=== PATIENT | female | born 1975 | race Caucasian/White ===

== ENCOUNTER 2018-01-09 08:37 | Emergency (ER) | payer MEDICARE, MEDICAID, SELFPAY ==
[2018-01-09 08:38] VITALS: BP 168/117; PULSE 84; RESP 18; TEMP 36.3; O2SAT 98; BMI 45.1
[2018-01-09] MEDS: morphine 8 MG/ML Syringe SC (09:03)
[2018-01-09] MEDS: diazePAM 5 MG Tablet PO (09:03)
--- NOTE | 2018-01-09 09:10 | RAD_ITS ---
STUDY: X-RAY - LUMBAR SPINE REASON FOR EXAM: Female, 42 years old. Back pain TECHNIQUE: 3 view(s) of the lumbar spine were obtained. COMPARISON: None FINDINGS: Normal lumbar lordosis. There is no substantial scoliosis. There is anterolisthesis at the level of L5-S1. There is severe disc space narrowing. There are bilateral pedicle screws and laminectomy at the level of L4-S1. There is a disc spacer present at L5-S1. There is visualized to space narrowing. There is multilevel endplate spondylosis of the lumbar vertebrae. There is multi-level degenerative disc disease with multi-level disc space narrowing. There is atherosclerotic disease of the aorta. There are surgical clips in the right upper quadrant status post cholecystectomy. RAD/Lumbar Spine 2 or 3 Views IMPRESSION: Post spinal fusion L4 through the sacrum with laminectomy. Age indeterminate likely chronic disc space narrowing L5-S1 with anterolisthesis. Comparison to prior study from the helpful to establish stability. Electronically Signed: Uyen Tellez MD at 9:29 EDT Tel , Service support ,
--- NOTE | 2018-01-09 09:20 | ED.VISSUMM ---
- ER Visit Summary Date of Service: 01/09/18 Chief Complaint: [Back pain] History of Present Illness: The patient is a 42 F [42-year-old female who presents the emergency department with low back pain for the last month. It has been getting worse slowly. She has radiculopathy down her right leg. She gets occasional numbness down her right leg as well typically on the lateral side of her leg and the lateral foot. No urinary symptoms no bowel symptoms no saddle anesthesia or rectal numbness no fecal incontinence. No fevers or chills. She is a type I diabetic. No recent interventions. She does have history of spinal surgery and has hardware in place. She had a revision of that surgery 5 years ago in which the hardware was displaced. She has an appointment with her neurosurgeon on January 25. Today the pain was very uncomfortable she cannot stand up straight and she is looking for pain control.] Physical Examination: [] Blood pressure 168/117 other vitals within acceptable limits Obese WN WD NAD PERRL EOMI MMM NECK supple and nontender, no masses RRR no murmur rub or gallop, no peripheral edema, symmetric radial pulses CTAB no respiratory distress ABDOMEN is soft and nontender, normal bowel sounds, no distension, no rebound or guarding Tenderness to palpation across the lumbar spine. She does have decreased sensation in the S1 distribution ankle reflexes are intact she has 5 out of 5 EHL dorsiflexion plantar flexion knee extension hip flexion 2+ symmetric strong dorsalis pedis pulses there is no skin changes distally and she has brisk distal cap refill SKIN is warm and dry no rashes Alert and Oriented x3, CN II-XII in tact, no motor or sensory deficits, gait normal No lymphadenopathy Test Results: [] Emergency Department Course and Treatment: [Patient was given morphine and Valium. X-rays show appropriate position of the hardware with L5-S1 disc space diminishment. I think this is likely the source of her radiculopathy. She will be given a prescription for Medrol. She is a type I diabetic. She gets frequent steroid prescriptions because of her COPD. She has insulin and a sliding scale. She understands that she needs to monitor her blood sugars closely and make adjustments as necessary. She will be given Flexeril in a very short course of Percocet. OA RRS report was reviewed and shows no narcotic prescriptions within the last year however she is prescribed chronic benzodiazepines. She was precautioned about the additive effects of benzos with narcotics and she she feels comfortable with this. She understands that she is at risk for hypoventilation giving her weight and dual benzo diazepam and opiates. She is comfortable with this. She states that her daughter and her son live with her and stay with her 24 hours a day.] Treatment Plan: [] Disposition: [Discharge] Impression: [Back pain with radiculopathy] This note was generated with [employer] dictation software. It may contain incorrect words, spelling, and punctuation that were not noted in review of the chart prior to signing ED Disposition - Plan for ED Patient: Chief Complaint: Back Referrals: Carlotta Galindo MD [Primary Care Provider] -
--- NOTE | 2018-01-09 09:39 | ED.RN ---
PT STATES THAT BACK IS HURTING WORSE. DR BECKER AWARE THAT PT WANTS MORE MEDS. NO ORDERS AT THIS TIME
[2018-01-09] MEDS: HYDROmorphone 1 MG/ML Syringe SC (09:55)
--- NOTE | 2018-01-09 10:25 | ED.DEP ---
ED Disposition - Plan for ED Patient: Chief Complaint: Back Instructions: ED Sciatica, ED Neck Back Pain General Prescriptions: Hydrocodone Bitart/Apap 5-325 [[place] 5MG-325MG] 1 tablet PO Q6H PRN PRN 3 Days #10 tablet PRN Reason: Pain Cyclobenzaprine [Flexeril] 10 mg PO TID PRN PRN #14 tablet PRN Reason: Muscle Spasm MethylPREDNISolone DosePak [Medrol DosePak] 4 mg PO UD #1 box Referrals: Edward Bajwa [Other] - 5-7 Days
--- NOTE | 2018-01-09 10:28 | DCINST.ED_ITS ---
ED Disposition - Plan for ED Patient: Chief Complaint: Back Instructions: ED Sciatica, ED Neck Back Pain General Prescriptions: Hydrocodone Bitart/Apap 5-325 [[place] 5MG-325MG] 1 tablet PO Q6H PRN PRN 3 Days # 10 tablet PRN Reason: Pain Cyclobenzaprine [Flexeril] 10 mg PO TID PRN PRN #14 tablet PRN Reason: Muscle Spasm MethylPREDNISolone DosePak [Medrol DosePak] 4 mg PO UD #1 box Referrals: Edward Bajwa [Other] - 5-7 Days
[2018-01-09 10:42] VITALS: BP 152/101; PULSE 96; RESP 15; O2SAT 99
== END 2018-01-09 10:43 | disposition home or self-care (01) ==
LOC: ED 09:31
PROVIDERS: Emergency Provider Emergency Medicine; Family Provider Internal Medicine; PCP Internal Medicine
DX: M54.16 Radiculopathy, lumbar region (principal); G89.29 Other chronic pain; J44.9 Chronic obstructive pulmonary disease, unspecified; E10.9 Type 1 diabetes mellitus without complications; E66.9 Obesity, unspecified; Z68.42 Body mass index [BMI] 45.0-49.9, adult; Z79.4 Long term (current) use of insulin; Z72.0 Tobacco use
CPT/HCPCS: 72100; 96372; 99282

== ENCOUNTER 2018-03-07 21:00 | Emergency (ER) | payer MEDICARE, SELFPAY ==
[2018-03-07 21:01] VITALS: BP 137/99; PULSE 107; RESP 15; TEMP 37.2; BMI 47.0
[2018-03-07] MEDS: Morphine 4 MG/ML Syringe IV (22:19)
[2018-03-07] MEDS: 0.9% Normal Saline 1,000 ML 1000 ML IV (22:19)
[2018-03-07] MEDS: Ondansetron 4 MG/2 ML Vial IV (22:19)
[2018-03-07 22:46] LABS: Absolute Lymphocyte Count 3.17 X10^3/ul (0.83-4.51); Absolute Neutrophil Count 9.7 X10^3/uL (2.0-7.7); Basophil# 0.03 X10^3/uL; Basophil% 0.2 % (0-1); Eosinophil# 0.16 X10^3/uL; Eosinophils% 1.1 % (0-5); Hematocrit 42.1 % (37-47); Hemoglobin 14.4 g/dl (12.0-15.0); Lymphocyte # 3.17 X10^3/ul (4.0); Lymphocyte % 21.9 % (19-41); Mean Corp Hgb Conc 34.2 g/gl (32-36); Mean Corpuscular Hgb 33.2 pg (27.0-32.0); Mean Platelet Vol. 10.7 fl (6.2-12.0); Monocyte# 1.37 X10^3/uL; Monocyte% 9.5 % (0-10); Neutrophil % 66.9 % (47-70); Platelet Count 282 K/mm3 (150-450); RBC Distribution Width CV 12.5 % (11.6-14.6); RBC Distribution Width SD 43.6 fl (35.1-43.9); Red Blood Count 4.34 M/mm3 (4.2-5.4); White Blood Count 14.5 K/mm3 (4.4-11.0)
[2018-03-07 22:47] LABS: POSITIVE COUNT NO; POSITIVE DIFFERENTIAL NO; POSITIVE MORPHOLOGY NO
[2018-03-07 23:06] LABS: Anion Gap 11 (5-15); BUN 13 mg/dL (7-18); Calcium,Total 8.6 mg/dL (8.5-10.1); Chloride 104 mmol/L (98-107); Creatinine, Serum 0.81 mg/dL (0.55-1.02); EST Glomerular Filtration Rate 81 mL/min (>60); Est Glom Filt Rate - Afr Amer 98 mL/min (>60); Estimated Creatinine Clearance 82.97 ml/min; Glucose 376 mg/dL (74-106); Potassium 3.9 mmol/L (3.5-5.1); Sodium Level 137 mmol/L (136-145)
--- NOTE | 2018-03-07 23:13 | ED.VISSUMM ---
- ER Visit Summary Date of Service: 03/07/18 Chief Complaint: Redness right arm History of Present Illness: The patient is a [address] Galindo. She reports that she has redness to her right forearm that began 4 days ago. She denies any known trauma. She describes a sharp pain that is 8 out of 10 at worst and 7-10 currently. Is worsened by movement relieved by rest. She denies any constitutional symptoms. No fever, chills, nausea, or vomiting. Physical Examination: Vitals: Stable. Afebrile. General: Well-nourished and well-developed. Head: Normocephalic atraumatic. Neck: Supple, no lymphadenopathy. No JVD. Nontender. Cardiovascular: Regular rate and rhythm. No murmurs. Respiratory: No respiratory distress. Clear to auscultation bilaterally. Abdominal: Soft, nontender, nondistended, normal bowel sounds. No guarding, rebound, or peritoneal signs. Back: Nontender. Extremities: Approximately 5 x 7 area of erythema to the posterior right arm. There is no induration or fluctuance. There is no lymphangitic spread.. Skin: Normal color, no rash. Neurologic: Alert and oriented ?3. Cranial nerves II through XII are intact. Normal strength and sensation. Psych: Normal affect. Test Results: CBC is more for white count of 14.5. Chem-7 is more for glucose of 376. Emergency Department Course and Treatment: Patient was treated with a dose of morphine, Zofran, clindamycin IV. She was given Tylenol p.o. I discussed her elevated blood sugar and she does not want to take insulin here. She reports that she will take her sliding scale insulin when she gets home. Treatment Plan: Discussed the patient that if he does not control her blood sugar the cellulitis is going to be treated. She is will be discharged on clindamycin instructed follow-up her primary care physician in 2 days for a repeat exam. Return to the emergency department for any worsening symptoms. Disposition: To home in improved and stable condition. Impression: 1. Cellulitis right arm. 2. Hyperglycemia with history none his pain and diabetes mellitus. This note was generated with [employer] software. It may contain incorrect words, spelling, and punctuation that were not noted in review of the chart prior to signing ED Disposition - Plan for ED Patient: Chief Complaint: Abscess Instructions: ED Infec Skin Cellulitis Prescriptions: Ondansetron [Zofran Odt] 4 mg PO Q8H PRN PRN #10 tablet PRN Reason: Nausea Clindamycin HCl [Cleocin] 300 mg PO Q6H #40 capsule Referrals: Carlotta Galindo MD [Primary Care Provider] - 2 Days for wound check
[2018-03-08 00:23] VITALS: BP 130/74; PULSE 84; RESP 16; O2SAT 97
== END 2018-03-08 00:27 | disposition home or self-care (01) ==
PROVIDERS: Emergency Provider Emergency Medicine; Family Provider Internal Medicine; PCP Internal Medicine
DX: L03.113 Cellulitis of right upper limb (principal); E10.65 Type 1 diabetes mellitus with hyperglycemia; I25.10 Atherosclerotic heart disease of native coronary artery without angina pectoris; J44.9 Chronic obstructive pulmonary disease, unspecified; I10 Essential (primary) hypertension; E78.00 Pure hypercholesterolemia, unspecified; Z90.49 Acquired absence of other specified parts of digestive tract; Z95.5 Presence of coronary angioplasty implant and graft; Z79.82 Long term (current) use of aspirin; Z79.02 Long term (current) use of antithrombotics/antiplatelets; Z79.4 Long term (current) use of insulin; Z79.899 Other long term (current) drug therapy; F17.200 Nicotine dependence, unspecified, uncomplicated
CPT/HCPCS: 80048; 85025; 96365; 96366; 96375; 99283; J7030; J2405

== ENCOUNTER 2018-03-13 14:43 | Emergency (ER) | payer MEDICARE, SELFPAY ==
[2018-03-13 14:45] VITALS: BP 163/109; PULSE 95; RESP 16; TEMP 36.1; BMI 46.8
[2018-03-13] MEDS: oxyCODONE 5 MG Tablet PO (15:47)
[2018-03-13 16:24] LABS: Absolute Lymphocyte Count 3.01 X10^3/ul (0.83-4.51); Absolute Neutrophil Count 7.9 X10^3/uL (2.0-7.7); Basophil# 0.02 X10^3/uL; Basophil% 0.2 % (0-1); Eosinophil# 0.17 X10^3/uL; Eosinophils% 1.4 % (0-5); Hematocrit 43.6 % (37-47); Hemoglobin 15.2 g/dl (12.0-15.0); Lymphocyte # 3.01 X10^3/ul (4.0); Lymphocyte % 24.6 % (19-41); Mean Corp Hgb Conc 34.9 g/gl (32-36); Mean Corpuscular Hgb 33.7 pg (27.0-32.0); Mean Corpuscular Volume 96.7 fL (81-99); Mean Platelet Vol. 10.7 fl (6.2-12.0); Neutrophil # 7.92 X10^3/uL (2.7-7.7); Neutrophil % 64.7 % (47-70); Platelet Count 319 K/mm3 (150-450); RBC Distribution Width CV 12.7 % (11.6-14.6); RBC Distribution Width SD 44.3 fl (35.1-43.9); Red Blood Count 4.51 M/mm3 (4.2-5.4); White Blood Count 12.2 K/mm3 (4.4-11.0)
[2018-03-13 16:25] LABS: POSITIVE COUNT NO; POSITIVE DIFFERENTIAL NO; POSITIVE MORPHOLOGY NO
[2018-03-13 16:37] LABS: Anion Gap 10 (5-15); BUN 13 mg/dL (7-18); BUN/Creat Ratio 15.2 RATIO (10-20); Calcium,Total 8.7 mg/dL (8.5-10.1); Chloride 103 mmol/L (98-107); Creatinine, Serum 0.86 mg/dL (0.55-1.02); EST Glomerular Filtration Rate 77 mL/min (>60); Est Glom Filt Rate - Afr Amer 93 mL/min (>60); Estimated Creatinine Clearance 78.15 ml/min; Glucose 408 mg/dL (74-106); Potassium 4.3 mmol/L (3.5-5.1); Sodium Level 136 mmol/L (136-145)
--- NOTE | 2018-03-13 16:49 | ED.VISSUMM ---
- ER Visit Summary Date of Service: 03/13/18 Chief Complaint: Right arm pain History of Present Illness: The patient is a 42 F who presents with right arm pain. It initially began about 1 week ago. She had redness on her right forearm. She was seen in the emergency department and diagnosed with cellulitis and started on clindamycin. She notes the redness has improved. However she complains of ongoing swelling fatigue and pain. She also complains of elevated blood sugars no fevers or chills. Physical Examination: Afebrile vitals notable for elevated blood pressure otherwise unremarkable Heart regular rate and rhythm Lungs clear Abdomen soft There is a 9 x 8 cm of induration over the right forearm I did not appreciate obvious fluctuance there is very minimal overlying erythema she has brisk capillary refill palpable radial pulse there is no lymphangitic streaking there is no crepitus Test Results: Labs notable for white blood cell count 12.2 and glucose of 408 but there is no elevated anion gap, point of care ultrasound did show a fluid collection at the induration consistent with abscess Emergency Department Course and Treatment: Initially differential included abscess or DVT due to swelling with history of prior upper extremity DVT and coagulopathy. Labs were ordered including coagulation studies and d-dimer. However after [id number] ultrasound showed clear fluid collection diagnosis of abscess was made. We did so obtain CBC BMP. I anesthetized the patient with local 1% lidocaine. I initially aspirated with an 18-gauge needle with return of frankly purulent material. A cruciate incision was made with a #11 blade. There was copious purulent drainage estimated at 20-30 cc. Quarter inch packing was placed. Patient has had previous abscesses which were managed by Dr. Maravilla in [place]. I attempted to contact her but was unable to do so. Patient states she prefers to follow-up with the surgeon she is seen previously however she was also given contact information for Dr. Pryor if she is unable to obtain follow-up. She does understand return for new or worsening Symptoms. She was instructed on specific signs and symptoms to monitor for conditions under which to return. She was given a prescription for Bactrim. Patient discharged. Treatment Plan: [] Disposition: Discharge Impression: Right forearm abscess status post incision and drainage This note was generated with [employer] dictation software. It may contain incorrect words, spelling, and punctuation that were not noted in review of the chart prior to signing ED Disposition - Plan for ED Patient: Chief Complaint: Upper Extremity Injury Referrals: Carlotta Galindo MD [Primary Care Provider] -
--- NOTE | 2018-03-13 16:53 | ED.DEP ---
ED Disposition - Plan for ED Patient: Chief Complaint: Upper Extremity Injury Instructions: ED Abscess IandD Prescriptions: Smz/Tmp Ds [Bactrim Ds] 1 tab PO BID #20 tab Referrals: Carlotta Galindo MD [Primary Care Provider] - Sandra Pryor MD [STAFF PHYSICIAN] -
[2018-03-13 17:07] VITALS: BP 122/49; PULSE 71; RESP 15; O2SAT 98
== END 2018-03-13 17:09 | disposition home or self-care (01) ==
PROVIDERS: Emergency Provider Emergency Medicine; Family Provider Internal Medicine; PCP Internal Medicine
DX: L02.413 Cutaneous abscess of right upper limb (principal); B96.89 Other specified bacterial agents as the cause of diseases classified elsewhere; Z86.718 Personal history of other venous thrombosis and embolism; I25.10 Atherosclerotic heart disease of native coronary artery without angina pectoris; I25.2 Old myocardial infarction; I10 Essential (primary) hypertension; K21.9 Gastro-esophageal reflux disease without esophagitis; E78.00 Pure hypercholesterolemia, unspecified; E03.9 Hypothyroidism, unspecified; Z79.01 Long term (current) use of anticoagulants; Z79.4 Long term (current) use of insulin; Z79.82 Long term (current) use of aspirin; Z79.899 Other long term (current) drug therapy; Z72.0 Tobacco use
CPT/HCPCS: 10061; 10060; 80048; 85025; 99283

== ENCOUNTER 2018-03-20 13:02 | Emergency (ER) | payer MEDICARE, SELFPAY ==
[2018-03-20 13:03] VITALS: BP 153/96; PULSE 96; RESP 17; TEMP 37; O2SAT 97; BMI 46.4
--- NOTE | 2018-03-20 13:23 | CT_ITS ---
STUDY: CT RIGHT FOREARM WITHOUT CONTRAST REASON FOR EXAM: Female, 42 years old. Swelling. Abscess. RADIATION DOSAGE (If Supplied By Facility): CTDIvol = ( 24.58 ) mGy, DLP = ( 1158.09 ) mGycm TECHNIQUE: Transaxial images were obtained with intravenous contrast. Sagittal and coronal images were reconstructed. Individualized dose optimization techniques were used for this CT. COMPARISON: None. FINDINGS: There is a 3.3 x 2.2 x 0.9 cm enhancing fluid collection in the soft tissues overlying the proximal to mid ulna. This is consistent with an abscess. There is adjacent subcutaneous soft tissue stranding and a small superficial skin laceration. There is no radiodense foreign body identified. The visualized osseous structures are intact. There is no CT evidence of osteomyelitis. CT/Extremity Upper WITH Contrast IMPRESSION: 3.2 x 2.2 x 0.9 cm abscess in the soft tissues overlying the proximal to mid ulna. Adjacent subcutaneous stranding and a small superficial skin laceration. Electronically Signed: Tony Acuna, at 15:40 EDT Tel , Service support ,
--- NOTE | 2018-03-20 13:46 | ED.DCSUM_ITS ---
- ER Visit Summary Date of Service: 03/20/18 Chief Complaint: Right arm abscess History of Present Illness: The patient is a 42 F presents to the emergency department with recurrent right forearm abscess. The patient was seen here about 2 weeks ago. At that time, she had a localized cellulitis of the arm. She was started on clindamycin. She states her symptoms worsened. She was seen here again a week ago. At that time, she went on incision and drainage of the abscess. Packing was placed. The patient followed up with her general surgeon in the office. She did have the packing removed. She continued to have drainage from the area. She actually saw an orthopedic surgeon in [place] on Thursday. The plan is to have an MRI done of her upper extremity next week. She states over the past 24 hours, she has had increasing pain and more drainage. She also admits to chills and sweats. She has been on Bactrim, but feels like her symptoms are worsening. Physical Examination: Vital signs reviewed General: Well-nourished, well-developed Head: Normocephalic, atraumatic Eyes: Pupils equal and reactive, extraocular muscles intact Neck, supple, no lymphadenopathy Heart: Regular rate and rhythm Respiratory: No distress, clear bilaterally Abdomen: Soft, nontender, nondistended, no peritoneal signs Back: Nontender Extremities: Spontaneously draining abscess on the right forearm with tenderness to palpation. No streaking. No crepitus. Normal pulses. Compartments soft. Skin: Normal color no rash Neuro: Alert and oriented, no focal or lateralizing deficits Test Results: [] Emergency Department Course and Treatment: The patient presents with increasing pain at the site of a spontaneously draining abscess. She is Tristan had an I&D about a week ago. She has been following with her general surgeon and the plan is for an outpatient MRI. She states she began to have chills and sweats. The area is draining. There is no significant cellulitis. I did obtain blood work which is relatively unremarkable except for hyperglycemia. Patient was sent for a CT of the upper extremity which confirms abscess within the soft tissue. The patient was started on broad-spectrum antibiotics. I did discuss the patient the hospitalist, but plastic surgery is out until next week. I did review the case with Dr. Quesada for orthopedics, but as this does involve the distal upper extremity, he did feel the patient will best be served at a tertiary facility with both plastics and hand surgery. The patient requested transfer to [place]. Patient was discussed with the [facility] transfer line and will be transferred for orthopedics evaluation. Treatment Plan: [] Disposition: Transfer Impression: 1. Deep tissue abscess of the right forearm with failed outpatient treatment This note was generated with [employer] dictation software. It may contain incorrect words, spelling, and punctuation that were not noted in review of the chart prior to signing ED Disposition - Plan for ED Patient: Chief Complaint: Abscess Referrals: Carlotta Galindo MD [Primary Care Provider] -
[2018-03-20] MEDS: Ondansetron 4 MG/2 ML Vial IV (13:47)
[2018-03-20] MEDS: 0.9% Normal Saline 1,000 ML 1000 ML IV (13:47)
[2018-03-20] MEDS: Morphine 4 MG/ML Syringe IV (13:47)
[2018-03-20 14:17] LABS: BUN 19 mg/dL (7-18); BUN/Creat Ratio 28.1 RATIO (10-20); Creatinine, Serum 0.68 mg/dL (0.55-1.02); EST Glomerular Filtration Rate 100 mL/min (>60); Est Glom Filt Rate - Afr Amer 121 mL/min (>60); Estimated Creatinine Clearance 98.83 ml/min; Glucose 382 mg/dL (74-106); Protein, Total 7.5 g/dL (6.4-8.2)
[2018-03-20 14:18] LABS: ALB/GLOB Ratio 0.7 RATIO (0.9-2.4); AST(SGOT) 21 U/L (15-37); Alanine Aminotransfer ALT/SGPT 26 U/L (13-56); Alkaline Phosphatase 123 U/L (45-117); Anion Gap 10 (5-15); Calcium,Total 8.4 mg/dL (8.5-10.1); Chloride 105 mmol/L (98-107); Globulin 4.5 g/dL (2.2-4.2); Sodium Level 132 mmol/L (136-145)
[2018-03-20 14:39] LABS: Absolute Lymphocyte Count 2.57 X10^3/ul (0.83-4.51); Basophil# 0.02 X10^3/uL; Basophil% 0.2 % (0-1); Eosinophil# 0.23 X10^3/uL; Eosinophils% 2.4 % (0-5); Hematocrit 39.9 % (37-47); Hemoglobin 13.6 g/dl (12.0-15.0); Lymphocyte # 2.57 X10^3/ul (4.0); Lymphocyte % 27.2 % (19-41); Mean Corp Hgb Conc 34.1 g/gl (32-36); Mean Corpuscular Hgb 32.7 pg (27.0-32.0); Mean Corpuscular Volume 95.9 fL (81-99); Mean Platelet Vol. 10.2 fl (6.2-12.0); Monocyte# 0.65 X10^3/uL; Monocyte% 6.9 % (0-10); Neutrophil # 5.95 X10^3/uL (2.7-7.7); Neutrophil % 63.1 % (47-70); POSITIVE COUNT NO; POSITIVE DIFFERENTIAL NO; POSITIVE MORPHOLOGY NO; Platelet Count 287 K/mm3 (150-450); RBC Distribution Width CV 12.7 % (11.6-14.6); RBC Distribution Width SD 43.7 fl (35.1-43.9); Red Blood Count 4.16 M/mm3 (4.2-5.4); White Blood Count 9.4 K/mm3 (4.4-11.0)
[2018-03-20] MEDS: HYDROmorphone 1 MG/ML Syringe IV (14:45)
[2018-03-20 15:25] VITALS: PULSE 80; RESP 16; O2SAT 97
[2018-03-20] MEDS: Ceftriaxone 1 GM/50 ML BAG IV (16:08)
--- NOTE | 2018-03-20 16:13 | PCM.HP.STD ---
Problem List (1) DKA (diabetic ketoacidosis) Status: Resolved (2) DM (diabetes mellitus), type 1 Status: Chronic (3) Asthma Status: Chronic (4) Coronary artery disease Status: Chronic (5) Essential hypertension Status: Chronic (6) GERD (gastroesophageal reflux disease) Status: Chronic Qualifiers: (7) Hypercholesterolemia Status: Chronic (8) Hypothyroidism Status: Chronic (9) Morbid obesity Status: Chronic (10) Sleep-disordered breathing Status: Chronic (11) Tobacco use Status: Chronic History of Present Illness Date of Admission: 03/20/18 Chief Complaint: Right arm abscess The patient is a 42 year old F due to right forearm abscess. She initially presented to [facility] ER 03/07/18 where she was treated for cellulitis of the right arm and discharged with clindamycin. She then returned 03/13/2018 to [facility] ER where she was reported to have developed an abscess. I&D performed in ED at that time and patient was discharged on bactrim. No culture sent at that time. Patient then followed up with orthopedic surgeon in [place] on Thursday. She was scheduled to have outpatient MRI right upper extremity for further evaluation. However, she developed increased right forearm pain, increased drainage with associated fevers, chills. She has a past medical history of type 1 diabetes mellitus, CAD status post PTCA, hypertension, hyperlipidemia, GERD, morbid obesity, asthma, tobacco dependence. Past Medical History Past Medical History (Chronic Problems): Chronic Problems Sleep-disordered breathing (Chronic) Essential hypertension (Chronic) Coronary artery disease (Chronic) Hypercholesterolemia (Chronic) Tobacco use (Chronic) Morbid obesity (Chronic) Hypothyroidism (Chronic) GERD (gastroesophageal reflux disease) (Chronic) Asthma (Chronic) DM (diabetes mellitus), type 1 (Chronic) Allergies No Known Allergies Allergy (Verified 03/20/18 13:03) Home Medications: Ambulatory Orders Medication Instructions Recorded Aspirin [Aspirin, Baby] 81 mg PO DAILY@0800 06/11/15 Carvedilol [Coreg (Beta Monisha)] 12.5 mg PO BID 06/11/15 Clopidogrel Bisulfate [Plavix] 75 mg PO DAILY 06/11/15 Levothyroxine [Synthroid] 220 mcg PO DAILY 06/11/15 Lisinopril [Zestril] 40 mg PO DAILY 06/11/15 Albuterol Inhaler [Ventolin Hfa] 1 - 2 puff INHALATION Q4H PRN PRN 10/15/15 #1 inhaler Duloxetine Hcl [Cymbalta] 60 mg PO DAILY 10/15/15 Pantoprazole Sodium [Protonix] 40 mg PO DAILY 09/23/16 Simvastatin [Zocor] 40 mg PO QHS #1 tablet 09/26/16 Cyclobenzaprine [Flexeril] 10 mg PO TID PRN PRN #14 tablet 01/09/18 MethylPREDNISolone DosePak [Medrol 4 mg PO UD #1 box 01/09/18 DosePak] Ondansetron [Zofran Odt] 4 mg PO Q8H PRN PRN #10 tablet 03/07/18 Hydrocodone Bitart/Apap 5-325 1 tab PO Q6H PRN PRN 3 Days #10 tab 03/13/18 [[place] 5MG-325MG] Smz/Tmp Ds [Bactrim Ds] 1 tab PO BID #20 tab 03/13/18 Insulin NPH Human Isophane 32 units SC BID 03/20/18 [Novolin N] Insulin Regular, Human [Novolin R] 26 units SC TID 03/20/18 Surgical History: angioplasty - PTCA ?4 at [facility], cholecystectomy, - - 4 stents in the past, 2 back surgeries with hardware, carpal tunnel, tonsils, section, I&D of breast abscesses, cervical conization Psychiatric History: Depression 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 Lives: Spouse/ Significant Other Smoking Status: Current every day smoker Tobacco Use: Cigarettes Alcohol: None Drugs: None - *Family History Maternal History Items: - - htn, dm Paternal History Items: - - htn, diabetes Review of Systems Constitutional: Reports: Chills, Fever, Malaise HEENT: Denies: Head Aches, Sinus Congestion, Sinus Drainage Cardiovascular: Denies: Chest Pain, Edema, Light Headedness, Palpitations, Syncope Respiratory: Denies: Cough, Shortness of breath at rest, Sputum production Gastrointestinal: Denies: Abdominal Pain, Nausea, Vomiting Genitourinary: Denies: Dysuria Musculoskeletal: Reports: Arm Pain - Right forearm. Skin: Reports: - - Right forearm abscess. Neurological: Denies: Numbness, Tingling, Focal weakness Psychiatric: Reports: Depression Hematologic/ Lymphatic: Denies: Easy Bruising, Easy Bleeding VTE Information - Inpt Only VTE Present on Admission: No VTE Mechan Device Prophylaxis: None VTE Pharm Prophylaxis ordered?: Yes - Physical Exam General: Alert, Oriented x3, Cooperative, No apparent distress HEENT: Atraumatic, PERRLA, EOMI, Normocephalic Neck: Supple, No JVD, Negative Carotid Bruits Lungs: Clear to auscultation, Normal air movement Cardiovascular: Regular rate, Regular Rhythm, Normal S1, Normal S2, No murmurs Abdomen: Bowel Sounds Present, Soft, Non Tender, Non-Distended, Obese Extremities: No clubbing, No cyanosis, No edema, Capillary Refill Less than 3 Seconds Skin: - - Right medial forearm abscess with purulent drainage. No surrounded redness noted. Raised area surrounding open abscess. Musculoskeletal: Tenderness - Right forearm. Neurological: Cranial nerves II-XII grossly intact, Neuro grossly intact Psych/Mental Status: Normal Affect, Appropriate Vital Signs Temp Pulse Resp BP Pulse Ox 98.6 F 80 16 153/96 H 97 03/20/18 13:03 03/20/18 15:25 03/20/18 15:25 03/20/18 13:03 03/20/18 15:25 Oxygen Delivery Method Room Air Weight: 287 lb 11.252 oz Body Mass Index (BMI) 46.4 Finger Stick Blood Glucose 81 Laboratory Tests Past 24 Hrs 03/20/18 03/20/18 03/20/18 13:43 13:43 14:30 WBC Cancelled 9.4 Corrected WBC Cancelled RBC Cancelled 4.16 L Hgb Cancelled 13.6 Hct Cancelled 39.9 MCV Cancelled 95.9 MCH Cancelled 32.7 H MCHC Cancelled 34.1 RDW Cancelled 12.7 RDW Differential Cancelled 43.7 Plt Count Cancelled 287 MPV Cancelled 10.2 Immature Gran % (Auto) Cancelled 0.200 Neut % (Auto) Cancelled 63.1 Lymph % (Auto) Cancelled 27.2 [place] % (Auto) Cancelled 6.9 Eos % (Auto) Cancelled 2.4 Baso % (Auto) Cancelled 0.2 Absolute Neuts (auto) Cancelled 6.0 Absolute Lymphs (auto) Cancelled 2.57 Total Counted Cancelled Not Reportable Neutrophils % (Manual) Cancelled Band Neutrophils % Cancelled Lymphocytes % (Manual) Cancelled Monocytes % (Manual) Cancelled Eosinophils % (Manual) Cancelled Basophils % (Manual) Cancelled Metamyelocytes % Cancelled Myelocytes % Cancelled Promyelocytes % Cancelled Blast Cells % Cancelled Plasma Cell % (Manual) Cancelled Other Cells % Cancelled Nucleated RBCs/100 WBC Cancelled Differential Comment Cancelled Diff Path Review Cancelled Hypersegmented Neuts Cancelled Atypical Lymphocytes Cancelled Reactive Lymphocytes Cancelled Smudge Cells Cancelled Toxic Granulation Cancelled Dohle Bodies Cancelled Eve Rods Cancelled Platelet Estimate Cancelled Plt Morphology Comment Cancelled RBC Morphology Cancelled Polychromasia Cancelled Hypochromasia Cancelled Poikilocytosis Cancelled Basophilic Stippling Cancelled Anisocytosis Cancelled Microcytosis Cancelled Macrocytosis Cancelled Spherocytes Cancelled Sickle Cells Cancelled Target Cells Cancelled Tear Drop Cells Cancelled Ovalocytes Cancelled Stomatocytes Cancelled [place] Bodies Cancelled [place] Cells Cancelled Bite Cells Cancelled Acanthocytes (Spur) Cancelled Rouleaux Cancelled Schistocytes Cancelled Sodium 132 L Potassium 4.0 Chloride 105 Carbon Dioxide 17.0 L Anion Gap 10 BUN 19 H Creatinine 0.68 Estim Creat Clear Calc 98.83 Est GFR (MDRD) Af Amer 121 Est GFR (MDRD) Non-Af 100 BUN/Creatinine Ratio 28.1 H Glucose 382 H Calcium 8.4 L Total Bilirubin 0.30 AST 21 ALT 26 Alkaline Phosphatase 123 H Total Protein 7.5 Albumin 3.0 L Globulin 4.5 H Albumin/Globulin Ratio 0.7 L Assessment/Plan All Active Problems Chest pain (Resolved) DKA (diabetic ketoacidosis) (Resolved) Acute coronary syndrome (Ruled-out) 1. Right arm abscess- Failed outpatient antibiotic therapy with clindamycin and Bactrim. Previous I&D 03/13/2018. IV vanc and IV zosyn pending cultures. Consult surgery for repeat I&D. Obtain cultures. PRN pain regimen. Right upper extremity CT shows 3.2 x 2.2 x 0.9 cm abscess in the soft tissues overlying the proximal to mid ulna. Adjacent subcutaneous stranding and a small superficial skin laceration. Afebrile on admission. No leukocytosis. Admission pending surgical acceptance. 2. Type 1 diabetes mellitus-hemoglobin A1c 7.9% September 2016. Continue home insulin regimen with sliding scale insulin. 3. CAD status post PTCA-continue aspirin, carvedilol, Plavix, statin. Echocardiogram 09/23/2016 showed an EF of 65%. Previous stress echo June 2015 without evidence of ischemia. She follows with cardiology at [facility] in [place]. 4. Hypertension-stable, continue home regimen including carvedilol, lisinopril. 5. Hyperlipidemia-continue statin. 6. GERD-continue PPI. 7. Depression/anxiety-continue home duloxetine regimen. OARRS report shows patient with frequent alprazolam rx as well, not on home med list. 8. Asthma-no acute exacerbation. Albuterol aerosol as needed for shortness of breath. 9. Tobacco dependence-encourage smoking cessation. 10. Morbid obesity-encourage diet lifestyle modifications. Nutrition consult. DVT prophylaxis-Lovenox subcu. This patient was seen by MOHAN Recio under the supervision of Dr. Chowdhury.
--- NOTE | 2018-03-20 16:27 | HP.PCM_ITS ---
Problem List (1) DKA (diabetic ketoacidosis) Status: Resolved (2) DM (diabetes mellitus), type 1 Status: Chronic (3) Asthma Status: Chronic (4) Coronary artery disease Status: Chronic (5) Essential hypertension Status: Chronic (6) GERD (gastroesophageal reflux disease) Status: Chronic Qualifiers: (7) Hypercholesterolemia Status: Chronic (8) Hypothyroidism Status: Chronic (9) Morbid obesity Status: Chronic (10) Sleep-disordered breathing Status: Chronic (11) Tobacco use Status: Chronic History of Present Illness Date of Admission: 03/20/18 Chief Complaint: Right arm abscess The patient is a 42 year old F due to right forearm abscess. She initially presented to [facility] ER 03/07/18 where she was treated for cellulitis of the right arm and discharged with clindamycin. She then returned 03/13/2018 to [facility] ER where she was reported to have developed an abscess. I&D performed in ED at that time and patient was discharged on bactrim. No culture sent at that time. Patient then followed up with orthopedic surgeon in [place] on Thursday. She was scheduled to have outpatient MRI right upper extremity for further evaluation. However, she developed increased right forearm pain, increased drainage with associated fevers, chills. She has a past medical history of type 1 diabetes mellitus, CAD status post PTCA, hypertension, hyperlipidemia, GERD, morbid obesity, asthma, tobacco dependence. Past Medical History Past Medical History (Chronic Problems): Chronic Problems Sleep-disordered breathing (Chronic) Essential hypertension (Chronic) Coronary artery disease (Chronic) Hypercholesterolemia (Chronic) Tobacco use (Chronic) Morbid obesity (Chronic) Hypothyroidism (Chronic) GERD (gastroesophageal reflux disease) (Chronic) Asthma (Chronic) DM (diabetes mellitus), type 1 (Chronic) Allergies No Known Allergies Allergy (Verified 03/20/18 13:03) Home Medications: Ambulatory Orders Medication Instructions Recorded Aspirin [Aspirin, Baby] 81 mg PO DAILY@0800 06/11/15 Carvedilol [Coreg (Beta Monisha)] 12.5 mg PO BID 06/11/15 Clopidogrel Bisulfate [Plavix] 75 mg PO DAILY 06/11/15 Levothyroxine [Synthroid] 220 mcg PO DAILY 06/11/15 Lisinopril [Zestril] 40 mg PO DAILY 06/11/15 Albuterol Inhaler [Ventolin Hfa] 1 - 2 puff INHALATION Q4H PRN PRN 10/15/15 #1 inhaler Duloxetine Hcl [Cymbalta] 60 mg PO DAILY 10/15/15 Pantoprazole Sodium [Protonix] 40 mg PO DAILY 09/23/16 Simvastatin [Zocor] 40 mg PO QHS #1 tablet 09/26/16 Cyclobenzaprine [Flexeril] 10 mg PO TID PRN PRN #14 tablet 01/09/18 MethylPREDNISolone DosePak [Medrol 4 mg PO UD #1 box 01/09/18 DosePak] Ondansetron [Zofran Odt] 4 mg PO Q8H PRN PRN #10 tablet 03/07/18 Hydrocodone Bitart/Apap 5-325 1 tab PO Q6H PRN PRN 3 Days #10 tab 03/13/18 [[place] 5MG-325MG] Smz/Tmp Ds [Bactrim Ds] 1 tab PO BID #20 tab 03/13/18 Insulin NPH Human Isophane 32 units SC BID 03/20/18 [Novolin N] Insulin Regular, Human [Novolin R] 26 units SC TID 03/20/18 Surgical History: angioplasty - PTCA ?4 at [facility], cholecystectomy, - - 4 stents in the past, 2 back surgeries with hardware, carpal tunnel, tonsils, section, I&D of breast abscesses, cervical conization Psychiatric History: Depression 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 Lives: Spouse/ Significant Other Smoking Status: Current every day smoker Tobacco Use: Cigarettes Alcohol: None Drugs: None - *Family History Maternal History Items: - - htn, dm Paternal History Items: - - htn, diabetes Review of Systems Constitutional: Reports: Chills, Fever, Malaise HEENT: Denies: Head Aches, Sinus Congestion, Sinus Drainage Cardiovascular: Denies: Chest Pain, Edema, Light Headedness, Palpitations, Syncope Respiratory: Denies: Cough, Shortness of breath at rest, Sputum production Gastrointestinal: Denies: Abdominal Pain, Nausea, Vomiting Genitourinary: Denies: Dysuria Musculoskeletal: Reports: Arm Pain - Right forearm. Skin: Reports: - - Right forearm abscess. Neurological: Denies: Numbness, Tingling, Focal weakness Psychiatric: Reports: Depression Hematologic/ Lymphatic: Denies: Easy Bruising, Easy Bleeding VTE Information - Inpt Only VTE Present on Admission: No VTE Mechan Device Prophylaxis: None VTE Pharm Prophylaxis ordered?: Yes - Physical Exam General: Alert, Oriented x3, Cooperative, No apparent distress HEENT: Atraumatic, PERRLA, EOMI, Normocephalic Neck: Supple, No JVD, Negative Carotid Bruits Lungs: Clear to auscultation, Normal air movement Cardiovascular: Regular rate, Regular Rhythm, Normal S1, Normal S2, No murmurs Abdomen: Bowel Sounds Present, Soft, Non Tender, Non-Distended, Obese Extremities: No clubbing, No cyanosis, No edema, Capillary Refill Less than 3 Seconds Skin: - - Right medial forearm abscess with purulent drainage. No surrounded redness noted. Raised area surrounding open abscess. Musculoskeletal: Tenderness - Right forearm. Neurological: Cranial nerves II-XII grossly intact, Neuro grossly intact Psych/Mental Status: Normal Affect, Appropriate Vital Signs Temp Pulse Resp BP Pulse Ox 98.6 F 80 16 153/96 H 97 03/20/18 13:03 03/20/18 15:25 03/20/18 15:25 03/20/18 13:03 03/20/18 15:25 Oxygen Delivery Method Room Air Weight: 287 lb 11.252 oz Body Mass Index (BMI) 46.4 Finger Stick Blood Glucose 81 Laboratory Tests Past 24 Hrs 03/20/18 03/20/18 03/20/18 13:43 13:43 14:30 WBC Cancelled 9.4 Corrected WBC Cancelled RBC Cancelled 4.16 L Hgb Cancelled 13.6 Hct Cancelled 39.9 MCV Cancelled 95.9 MCH Cancelled 32.7 H MCHC Cancelled 34.1 RDW Cancelled 12.7 RDW Differential Cancelled 43.7 Plt Count Cancelled 287 MPV Cancelled 10.2 Immature Gran % (Auto) Cancelled 0.200 Neut % (Auto) Cancelled 63.1 Lymph % (Auto) Cancelled 27.2 [place] % (Auto) Cancelled 6.9 Eos % (Auto) Cancelled 2.4 Baso % (Auto) Cancelled 0.2 Absolute Neuts (auto) Cancelled 6.0 Absolute Lymphs (auto) Cancelled 2.57 Total Counted Cancelled Not Reportable Neutrophils % (Manual) Cancelled Band Neutrophils % Cancelled Lymphocytes % (Manual) Cancelled Monocytes % (Manual) Cancelled Eosinophils % (Manual) Cancelled Basophils % (Manual) Cancelled Metamyelocytes % Cancelled Myelocytes % Cancelled Promyelocytes % Cancelled Blast Cells % Cancelled Plasma Cell % (Manual) Cancelled Other Cells % Cancelled Nucleated RBCs/100 WBC Cancelled Differential Comment Cancelled Diff Path Review Cancelled Hypersegmented Neuts Cancelled Atypical Lymphocytes Cancelled Reactive Lymphocytes Cancelled Smudge Cells Cancelled Toxic Granulation Cancelled Dohle Bodies Cancelled Eve Rods Cancelled Platelet Estimate Cancelled Plt Morphology Comment Cancelled RBC Morphology Cancelled Polychromasia Cancelled Hypochromasia Cancelled Poikilocytosis Cancelled Basophilic Stippling Cancelled Anisocytosis Cancelled Microcytosis Cancelled Macrocytosis Cancelled Spherocytes Cancelled Sickle Cells Cancelled Target Cells Cancelled Tear Drop Cells Cancelled Ovalocytes Cancelled Stomatocytes Cancelled [place] Bodies Cancelled [place] Cells Cancelled Bite Cells Cancelled Acanthocytes (Spur) Cancelled Rouleaux Cancelled Schistocytes Cancelled Sodium 132 L Potassium 4.0 Chloride 105 Carbon Dioxide 17.0 L Anion Gap 10 BUN 19 H Creatinine 0.68 Estim Creat Clear Calc 98.83 Est GFR (MDRD) Af Amer 121 Est GFR (MDRD) Non-Af 100 BUN/Creatinine Ratio 28.1 H Glucose 382 H Calcium 8.4 L Total Bilirubin 0.30 AST 21 ALT 26 Alkaline Phosphatase 123 H Total Protein 7.5 Albumin 3.0 L Globulin 4.5 H Albumin/Globulin Ratio 0.7 L Assessment/Plan All Active Problems Chest pain (Resolved) DKA (diabetic ketoacidosis) (Resolved) Acute coronary syndrome (Ruled-out) 1. Right arm abscess- Failed outpatient antibiotic therapy with clindamycin and Bactrim. Previous I&D 03/13/2018. IV vanc and IV zosyn pending cultures. Consult surgery for repeat I&D. Obtain cultures. PRN pain regimen. Right upper extremity CT shows 3.2 x 2.2 x 0.9 cm abscess in the soft tissues overlying the proximal to mid ulna. Adjacent subcutaneous stranding and a small superficial skin laceration. Afebrile on admission. No leukocytosis. Admission pending surgical acceptance. 2. Type 1 diabetes mellitus-hemoglobin A1c 7.9% September 2016. Continue home insulin regimen with sliding scale insulin. 3. CAD status post PTCA-continue aspirin, carvedilol, Plavix, statin. Echocardiogram 09/23/2016 showed an EF of 65%. Previous stress echo June 2015 without evidence of ischemia. She follows with cardiology at [facility] in [place]. 4. Hypertension-stable, continue home regimen including carvedilol, lisinopril. 5. Hyperlipidemia-continue statin. 6. GERD-continue PPI. 7. Depression/anxiety-continue home duloxetine regimen. OARRS report shows patient with frequent alprazolam rx as well, not on home med list. 8. Asthma-no acute exacerbation. Albuterol aerosol as needed for shortness of breath. 9. Tobacco dependence-encourage smoking cessation. 10. Morbid obesity-encourage diet lifestyle modifications. Nutrition consult. DVT prophylaxis-Lovenox subcu. This patient was seen by MOHAN Recio under the supervision of Dr. Chowdhury.
[2018-03-20] MEDS: HYDROmorphone 0.5 MG/0.5 ML SYRINGE IV (17:41)
[2018-03-20 17:43] VITALS: BP 141/87; PULSE 74; RESP 15; O2SAT 96
[2018-03-20 18:01] VITALS: BP 141/87; PULSE 70; RESP 18; TEMP 36.6; O2SAT 96
[2018-03-20 18:32] LABS: M R Staph aureus DNA By PCR Negative (Negative); Probe Check PASS; Specimen Processing Control PASS; Staph aureus DNA By PCR NEGATIVE (Negative)
== END 2018-03-20 18:34 | disposition short-term general hospital (02) ==
PROVIDERS: Emergency Provider Emergency Medicine; Family Provider Internal Medicine; PCP Internal Medicine
DX: L02.413 Cutaneous abscess of right upper limb (principal); B96.89 Other specified bacterial agents as the cause of diseases classified elsewhere; I25.10 Atherosclerotic heart disease of native coronary artery without angina pectoris; I10 Essential (primary) hypertension; E11.9 Type 2 diabetes mellitus without complications; E66.9 Obesity, unspecified; Z79.4 Long term (current) use of insulin; Z79.82 Long term (current) use of aspirin; Z79.01 Long term (current) use of anticoagulants; Z79.899 Other long term (current) drug therapy; Z72.0 Tobacco use
CPT/HCPCS: 73201; 80053; 85025; 87070; 87075; 87077; 87186; 87205; 87640; 96365; 96366; 96367; 96375; 96376; 99285; J7030; J7040; Q9967; A4216; J2405

== ENCOUNTER 2018-04-27 10:57 | Emergency (ER) | payer MEDICARE, SELFPAY ==
[2018-04-27 10:58] VITALS: BP 184/107; PULSE 89; RESP 18; TEMP 36.6; O2SAT 98; BMI 45.1
[2018-04-27] MEDS: HYDROcodone Bitartrate/Apap 5/325 Tablet PO (11:17)
--- NOTE | 2018-04-27 11:59 | ED.VISSUMM ---
- ER Visit Summary Date of Service: 04/27/18 Chief Complaint: Abscess History of Present Illness: The patient is a 42 F who presents with concern regarding an abscess that is along her line. Patient has over 13 years ago. Last month she was in the hospital with abscess and cellulitis of the right forearm and required surgical ID. Patient states that is since healed up and that wound grew out Streptococcus per her. She states that she went to urgent care a few days ago was placed on Keflex, what sounds like Diflucan, and an ointment. She states that he said she had yeast growing underneath her abdominal pannus and the abscess. She states is very painful for her. No fevers. Physical Examination: Afebrile vital signs stable Along the incision in the patient's abundant pannus on the abdomen is a quarter size area of what appears to be a yellowish granulation-like tissue. There is minimal swelling around it and there is a faint red border around it. There is no fluctuance. There is no evidence of yeast candidiasis at the current time. There is no foul smell. Emergency Department Course and Treatment: On bedside ultrasound I do not see an obvious fluid collection. The area was locally anesthetized using 1% lidocaine and I performed a moderate amount of debridement and getting some of the granulation tissue down to reveal fresh pink skin I do not see any obvious draining abscess. Patient was advised that we are going to go ahead and add Bactrim to cover for MRSA (as she does have numerous risk factors for this). She is to keep the wound dry and allow it to granulate in. Follow-up with her doctor return if worsening or concerns Impression: 1. Cutaneous abdominal abscess This note was generated with [employer] dictation software. It may contain incorrect words, spelling, and punctuation that were not noted in review of the chart prior to signing ED Disposition - Plan for ED Patient: Disposition: Home or Assisted Living Chief Complaint: Abscess Instructions: ED Abscess Abx Tx Only Ch Prescriptions: Hydrocodone Bitart/Apap 5-325 [[place] 5MG-325MG] 1 tab PO Q6H PRN PRN 3 Days #10 tab PRN Reason: Pain Smz/Tmp Ds [Bactrim Ds] 1 tab PO BID #14 tab Referrals: Carlotta Galindo MD [Primary Care Provider] - 3-5 Days
[2018-04-27 12:12] VITALS: BP 154/92; PULSE 90; RESP 16; O2SAT 98
== END 2018-04-27 12:16 | disposition home or self-care (01) ==
PROVIDERS: Emergency Provider Emergency Medicine; Family Provider Internal Medicine; PCP Internal Medicine
DX: L02.211 Cutaneous abscess of abdominal wall (principal); B96.89 Other specified bacterial agents as the cause of diseases classified elsewhere; E66.9 Obesity, unspecified; Z68.42 Body mass index [BMI] 45.0-49.9, adult; Z72.0 Tobacco use
CPT/HCPCS: 97597; 87070; 87205

== ENCOUNTER 2018-04-27 19:28 | Emergency (ER) | payer MEDICARE, SELFPAY ==
[2018-04-27 19:28] VITALS: BP 128/85; PULSE 104; RESP 18; TEMP 36; O2SAT 97; BMI 45.1
[2018-04-27 20:18] LABS: Absolute Lymphocyte Count 1.97 X10^3/ul (0.83-4.51); Absolute Neutrophil Count 6.7 X10^3/uL (2.0-7.7); Basophil# 0.01 X10^3/uL; Basophil% 0.1 % (0-1); Eosinophil# 0.05 X10^3/uL; Eosinophils% 0.5 % (0-5); Hematocrit 45.4 % (37-47); Hemoglobin 15.6 g/dl (12.0-15.0); Lymphocyte # 1.97 X10^3/ul (4.0); Lymphocyte % 19.8 % (19-41); Mean Corp Hgb Conc 34.4 g/gl (32-36); Mean Corpuscular Hgb 33.3 pg (27.0-32.0); Mean Platelet Vol. 10.7 fl (6.2-12.0); Monocyte# 1.17 X10^3/uL; Monocyte% 11.8 % (0-10); Neutrophil # 6.73 X10^3/uL (2.7-7.7); Neutrophil % 67.6 % (47-70); POSITIVE COUNT NO; POSITIVE DIFFERENTIAL NO; POSITIVE MORPHOLOGY NO; Platelet Count 262 K/mm3 (150-450); RBC Distribution Width CV 13.1 % (11.6-14.6); RBC Distribution Width SD 46.3 fl (35.1-43.9); Red Blood Count 4.68 M/mm3 (4.2-5.4)
[2018-04-27 20:24] LABS: Anion Gap 8 (5-15); BUN 11 mg/dL (7-18); Calcium,Total 8.4 mg/dL (8.5-10.1); Chloride 101 mmol/L (98-107); Creatinine, Serum 0.65 mg/dL (0.55-1.02); EST Glomerular Filtration Rate 106 mL/min (>60); Est Glom Filt Rate - Afr Amer 128 mL/min (>60); Estimated Creatinine Clearance 103.39 ml/min; Glucose 310 mg/dL (74-106); Potassium 3.9 mmol/L (3.5-5.1); Sodium Level 135 mmol/L (136-145)
[2018-04-27] MEDS: Naproxen 500 MG Tablet PO (20:31)
--- NOTE | 2018-04-27 21:11 | ED.VISSUMM ---
- ER Visit Summary Date of Service: 04/27/18 Chief Complaint: Headache, subjective fever, abdominal pain secondary to subtenons abscess and aches History of Present Illness: The patient is a 42 F who was seen earlier today by Dr. Mathew Bui. His transcribed note was read. She did not report the symptoms when seen by Dr. Bui. Patient complains of bifrontal headache. She denies visual, ocular auditory symptoms. Denies photophobia or neck pain or stiffness. She denies cough or shortness of breath. She does complain of nausea without vomiting diarrhea. She denies urologic symptoms. She states she has an abscess. She was informed based on documentation by Dr. Wick should not have an abscess. She responded with a negative response to all other questions on review of systems. Past history coronary disease, type 1 diabetes, hypertension, hypercholesteremia, obstructive sleep apnea and hypothyroidism Physical Examination: Vital signs noted and blood pressure slightly elevated 128 and heart rate is 104. BMI is 45.2. Head is atraumatic normocephalic. Pupils are equal round reactive. Extraocular muscles are intact. TMs are pearly white with landmarks noted. Nares patent with no drainage. Posterior pharynx without erythema or exudate. Uvula is midline. There is no dysphonia or dysphasia. Trachea is midline. There is no stridor with auscultation of the neck. Heart is regular without murmur, gallop or rub. S1 and S2 are normal. Lungs are clear to auscultation with good movement of air bilaterally. There is a 2 cm wound midportion of prior incision that has granulation tissue with no erythema, warmth, fluctuance and there is no inguinal lymphadenopathy. No other skin lesions noted. There is no neurovascular findings upper lower extremity. Neuro exam is nonfocal. Test Results: CBC unremarkable. Basic metabolic panels marked for glucose of 310. Emergency Department Course and Treatment: Because patient now complains of fever chills with myalgias and headache a CBC was obtained. Because she is diabetic and complains of generalized fatigue a basic metabolic panel was obtained to assess electrolytes and specifically glucose. Treatment Plan: Symptomatic treatment Disposition: Discharged home Impression: 1. Myalgias suspect secondary to viral syndrome 2. Healing wound by secondary intention without evidence of infection 3. Hyperglycemia type I diabetic This note was generated with [employer] software. It may contain incorrect words, spelling, and punctuation that were not noted in review of the chart prior to signing ED Disposition - Plan for ED Patient: Disposition: Home or Assisted Living Chief Complaint: Abscess Instructions: Wound Care, ED Hyperglycemia Diabetic Referrals: Carlotta Galindo MD [Primary Care Provider] - 3-5 Days if not improving
[2018-04-27 21:28] VITALS: PULSE 90; RESP 18
== END 2018-04-27 21:28 | disposition home or self-care (01) ==
PROVIDERS: Emergency Provider Emergency Medicine; Family Provider Internal Medicine; PCP Internal Medicine
DX: M79.10 Myalgia, unspecified site (principal); L02.211 Cutaneous abscess of abdominal wall; B96.89 Other specified bacterial agents as the cause of diseases classified elsewhere; E10.65 Type 1 diabetes mellitus with hyperglycemia; R51 Headache; I25.10 Atherosclerotic heart disease of native coronary artery without angina pectoris; I10 Essential (primary) hypertension; E78.00 Pure hypercholesterolemia, unspecified; E03.9 Hypothyroidism, unspecified; G47.33 Obstructive sleep apnea (adult) (pediatric); E66.9 Obesity, unspecified; Z68.42 Body mass index [BMI] 45.0-49.9, adult; Z79.82 Long term (current) use of aspirin; Z79.4 Long term (current) use of insulin; Z79.899 Other long term (current) drug therapy; Z72.0 Tobacco use
CPT/HCPCS: 97597; 80048; 85025; 87070; 87077; 87186; 87205; 99282; 99284; A4216

== ENCOUNTER 2018-08-18 10:13 | Inpatient (IN) | payer MEDICARE, MEDICAID, SELFPAY ==
[2018-08-18] VITALS (28 sets, daily range): BP systolic 107–178; BP diastolic 60–154; PULSE 76–113; RESP 13–22; TEMP 36.3–36.6; O2SAT 95–100; BMI 52.4; BMI 51.7; BMI 51.8
--- NOTE | 2018-08-18 10:28 | EKG12_ITS ---
Test Reason : REPEAT Blood Pressure : / mmHG Vent. Rate : 073 BPM Atrial Rate : 073 BPM P-R Int : 150 ms QRS Dur : 076 ms QT Int : 386 ms P-R-T Axes : 052 007 017 degrees QTc Int : 425 ms Normal sinus rhythm Normal ECG Confirmed by REHAN ADEN MD ([id number]), editor department GEORGE WONG ([id number]) on 08/24/2018 11:33:44 AM Referred By: Radu Valladares Confirmed By:REHAN ADEN MD
--- NOTE | 2018-08-18 10:29 | ED.VISSUMM ---
- ER Visit Summary Date of Service: 08/18/18 Chief Complaint: Chest pain History of Present Illness: The patient is a 42 F who presents for chest pain for 3-4 days. Patient had a cardiac catheterization performed in [place] 6 days ago with placement of 2 stents. Patient has been having chest pain intermittently for the last 3-4 days. Pain is substernal with radiation into both arms. It is worse with exertion and improved with rest. Patient has associated shortness of breath with it. She has cough that was present prior to the procedure. She denies abdominal pain, nausea, vomiting, back pain, fever or other complaints. She has not taken any nitro for it. She did not take any aspirin today. She has associated prior coronary artery disease with prior stents, diabetes, hypertension, high cholesterol, and she is a smoker. She has history of bilateral tubal ligation. Physical Examination: Vital signs: afebrile, hemodynamically stable, no hypoxia on room air General: well nourished, well developed, in no distress Skin: warm, dry, no rash, no pallor, no diaphoresis HEENT: normocephalic and atraumatic; PERRL, EOMI, moist mucous membranes Cardiovascular: regular rate and rhythm without murmurs, no peripheral edema, 2+ pulses all distal extremities, mild tenderness to palpation of the lower sternum but no rash Respiratory: No increased work of breathing, lungs are clear to auscultation bilaterally, no rales, rhonchi or wheezing Abdominal: Abdomen is soft, nontender with normoactive bowel sounds, no guarding or rebound, no masses MSK: Moves all extremities, no deformities, normal strength Neuro: Awake and alert, oriented ?4. No facial droop, sensation and motor function intact and symmetric Test Results: Abnormal Lab Results 08/18/18 08/18/18 08/18/18 10:30 10:30 10:30 WBC 13.3 H RBC 4.50 Hgb 14.7 Hct 43.5 MCV 96.7 MCH 32.7 H MCHC 33.8 RDW 12.6 RDW Differential 43.9 Plt Count 316 MPV 10.7 Immature Gran % (Auto) 0.300 Neut % (Auto) 59.7 Lymph % (Auto) 24.9 [place] % (Auto) 8.3 Eos % (Auto) 6.3 H Baso % (Auto) 0.5 Absolute Neuts (auto) 7.9 H Absolute Lymphs (auto) 3.31 Total Counted Not Reportable PT 12.0 INR 0.9 APTT 23.9 L Sodium 135 L Potassium 4.4 Chloride 102 Carbon Dioxide 26.0 Anion Gap 7 BUN 12 Creatinine 0.53 L Estim Creat Clear Calc 126.81 Est GFR (MDRD) Af Amer 160 Est GFR (MDRD) Non-Af 132 BUN/Creatinine Ratio 22.6 H Glucose 248 H Calcium 8.4 L Troponin I 0.041 Clinical Impression(s) from Imaging Studies Chest X-Ray 08/18/18 10:35 IMPRESSION: No radiographic evidence of acute cardiopulmonary disease. at 1212 Reported and signed by: Juan Porter MD Electronically Signed: Juan Porter, at 12:11 EST Tel , Service support , Medications Given Sodium Chloride () 1,000 mls @ 250 mls/hr IV .Q4H [facility] Last Admin: 08/18/18 11:13 Dose: 250 mls/hr Discontinued Medications Aspirin (Aspirin, Baby) 324 mg PO X1 STA Stop: 08/18/18 10:29 Last Admin: 08/18/18 11:14 Dose: 324 mg Morphine Sulfate () 4 mg IV X1 ONE Stop: 08/18/18 12:55 Last Admin: 08/18/18 13:04 Dose: 4 mg Nitroglycerin (Nitrostat) 0.4 mg SUBLINGUAL Q5M LUIS Stop: 08/18/18 10:41 Last Admin: 08/18/18 11:17 Dose: 0.4 mg Admin: 08/18/18 11:13 Dose: 0.4 mg Admin: 08/18/18 11:08 Dose: 0.4 mg Nitroglycerin (Nitrobid) 1 inch TRANSDERM. X1 ONE Stop: 08/18/18 12:55 Last Admin: 08/18/18 13:04 Dose: 1 inch Emergency Department Course and Treatment: Patient was given aspirin and nitroglycerin for her chest pain. EKG shows sinus rhythm, rate of 76, no ischemic changes. Initial will troponin 0 0.041. Patient otherwise had no lab abnormalities. Chest x-ray showed no signs of infiltrates or effusions. Patient had improvement of the chest pain with the nitroglycerin, however pain began increasing again. Nitropaste was placed and patient was given morphine. She was discussed with Dr. Huerta, who stated patient had the option to either stay here for further chest pain workup or be transferred back to where her manager lvn is located. Patient was given these options and chose to stay at [facility]. Patient was discussed with Dr. Valladares for admission for further chest pain workup in patient with recent cardiac catheterization and stent placement. At 3 hours, repeat troponin was performed and it had elevated to 0.19. This was discussed with Dr. Huerta, who is going to evaluate the patient in the emergency department. We discussed because of her recurring chest pain starting a nitro drip on her for better pain control. Patient was admitted for further management of continued chest pain with concern for acute coronary syndrome/NSTEMI. Critical care time of 40 minutes for initial evaluation, coordination of care, frequent reassessments, interpretation of EKG and lab work, consultation with manager lvn and hospitalist, documentation. Treatment Plan: [] Disposition: [] Impression: Anginal chest pain, NSTEMI, history of recent cardiac stenting This note was generated with [employer] dictation software. It may contain incorrect words, spelling, and punctuation that were not noted in review of the chart prior to signing ED Disposition - Plan for ED Patient:
--- NOTE | 2018-08-18 10:32 | ED.DCSUM_ITS ---
- ER Visit Summary Date of Service: 08/18/18 Chief Complaint: Chest pain History of Present Illness: The patient is a 42 F who presents for chest pain for 3-4 days. Patient had a cardiac catheterization performed in [place] 6 days ago with placement of 2 stents. Patient has been having chest pain intermi ttently for the last 3-4 days. Pain is substernal with radiation into both arms. It is worse with exertion and improved with rest. Patient has associated shortness of breath with it. She has cough that was present prior to the procedure. She denies abdominal pain, nausea, vomiting, back pain, fever or other complaints. She has not taken any nitro for it. She did not take any aspirin today. She has associated prior coronary artery disease with prior stents, diabetes, hypertension, high cholesterol, and she is a smoker. She has history of bilateral tubal ligation. Physical Examination: Vital signs: afebrile, hemodynamically stable, no hypoxia on room air General: well nourished, well developed, in no distress Skin: warm, dry, no rash, no pallor, no diaphoresis HEENT: normocephalic and atraumatic; PERRL, EOMI, moist mucous membranes Cardiovascular: regular rate and rhythm without murmurs, no peripheral edema, 2+ pulses all distal extremities, mild tenderness to palpation of the lower sternum but no rash Respiratory: No increased work of breathing, lungs are clear to auscultation bilaterally, no rales, rhonchi or wheezing Abdominal: Abdomen is soft, nontender with normoactive bowel sounds, no guarding or rebound, no masses MSK: Moves all extremities, no deformities, normal strength Neuro: Awake and alert, oriented ?4. No facial droop, sensation and motor function intact and symmetric Test Results: Abnormal Lab Results 08/18/18 08/18/18 08/18/18 10:30 10:30 10:30 WBC 13.3 H RBC 4.50 Hgb 14.7 Hct 43.5 MCV 96.7 MCH 32.7 H MCHC 33.8 RDW 12.6 RDW Differential 43.9 Plt Count 316 MPV 10.7 Immature Gran % (Auto) 0.300 Neut % (Auto) 59.7 Lymph % (Auto) 24.9 [place] % (Auto) 8.3 Eos % (Auto) 6.3 H Baso % (Auto) 0.5 Absolute Neuts (auto) 7.9 H Absolute Lymphs (auto) 3.31 Total Counted Not Reportable PT 12.0 INR 0.9 APTT 23.9 L Sodium 135 L Potassium 4.4 Chloride 102 Carbon Dioxide 26.0 Anion Gap 7 BUN 12 Creatinine 0.53 L Estim Creat Clear Calc 126.81 Est GFR (MDRD) Af Amer 160 Est GFR (MDRD) Non-Af 132 BUN/Creatinine Ratio 22.6 H Glucose 248 H Calcium 8.4 L Troponin I 0.041 Clinical Impression(s) from Imaging Studies Chest X-Ray 08/18/18 10:35 IMPRESSION: No radiographic evidence of acute cardiopulmonary disease. at 1212 Reported and signed by: Juan Porter MD Electronically Signed: Juan Porter, at 12:11 EST Tel , Service support , Medications Given Sodium Chloride () 1,000 mls @ 250 mls/hr IV .Q4H [facility] Last Admin: 08/18/18 11:13 Dose: 250 mls/hr Discontinued Medications Aspirin (Aspirin, Baby) 324 mg PO X1 STA Stop: 08/18/18 10:29 Last Admin: 08/18/18 11:14 Dose: 324 mg Morphine Sulfate () 4 mg IV X1 ONE Stop: 08/18/18 12:55 Last Admin: 08/18/18 13:04 Dose: 4 mg Nitroglycerin (Nitrostat) 0.4 mg SUBLINGUAL Q5M LUIS Stop: 08/18/18 10:41 Last Admin: 08/18/18 11:17 Dose: 0.4 mg Admin: 08/18/18 11:13 Dose: 0.4 mg Admin: 08/18/18 11:08 Dose: 0.4 mg Nitroglycerin (Nitrobid) 1 inch TRANSDERM. X1 ONE Stop: 08/18/18 12:55 Last Admin: 08/18/18 13:04 Dose: 1 inch Emergency Department Course and Treatment: Patient was given aspirin and nitroglycerin for her chest pain. EKG shows sinus rhythm, rate of 76, no ischemic changes. Initial will troponin 0 0.041. Patient otherwise had no lab abnormalities. Chest x-ray showed no signs of infiltrates or effusions. Patient had improvement of the chest pain with the nitroglycerin, however pain began increasing again. Nitropaste was placed and patient was given morphine. She was discussed with Dr. Huerta, who stated patient had the option to either stay here for further chest pain workup or be transferred back to where her various exceptionalities teacher is located. Patient was given these options and chose to stay at [place]. Patient was discussed with Dr. Valladares for admission for further chest pain workup in patient with recent cardiac catheterization and stent placement. At 3 hours, repeat troponin was performed and it had elevated to 0.19. This was discussed with Dr. Huerta, who is going to evaluate the patient in the emergency department. We discussed because of her recurring chest pain starting a nitro drip on her for better pain control. Patient was admitted for further management of continued chest pain with concern for acute coronary syndrome/NSTEMI. Critical care time of 40 minutes for initial evaluation, coordination of care, frequent reassessments, interpretation of EKG and lab work, consultation with various exceptionalities teacher and hospitalist, documentation. Treatment Plan: [] Disposition: [] Impression: Anginal chest pain, NSTEMI, history of recent cardiac stenting This note was generated with [employer] dictation software. It may contain incorrect words, spelling, and punctuation that were not noted in review of the chart prior to signing ED Disposition - Plan for ED Patient:
--- NOTE | 2018-08-18 10:35 | RAD_ITS ---
HISTORY: chest pain, heart cath last , 2 stents placed EXAM: XR Chest 2 Views: COMPARISON: 09/23/16 CXR FINDINGS: # of images incl. paperwork: 2 LINES/DEVICES: None. LUNGS: Radiographically clear. No consolidation, edema or effusion. No pneumothorax. MEDIASTINUM AND CARDIOVASCULAR STRUCTURES: Cardiac silhouette not enlarged. Central airways and mediastinal contour are unremarkable. BONES AND SOFT TISSUES: Unremarkable. RAD/Chest PA and Lateral IMPRESSION: No radiographic evidence of acute cardiopulmonary disease. at 1212 Reported and signed by: Juan Porter MD Electronically Signed: Juan Porter, at 12:11 EST Tel , Service support ,
[2018-08-18 10:47] LABS: International Normalized Ratio 0.9; Partial Thromboplast Time 23.9 Seconds (24.1-36.2)
[2018-08-18 10:48] LABS: Absolute Lymphocyte Count 3.31 X10^3/ul (0.83-4.51); Absolute Neutrophil Count 7.9 X10^3/uL (2.0-7.7); Basophil# 0.06 X10^3/uL; Basophil% 0.5 % (0-1); Eosinophil# 0.84 X10^3/uL; Eosinophils% 6.3 % (0-5); Hematocrit 43.5 % (37-47); Hemoglobin 14.7 g/dl (12.0-15.0); Lymphocyte # 3.31 X10^3/ul (4.0); Lymphocyte % 24.9 % (19-41); Mean Corp Hgb Conc 33.8 g/gl (32-36); Mean Corpuscular Hgb 32.7 pg (27.0-32.0); Mean Corpuscular Volume 96.7 fL (81-99); Mean Platelet Vol. 10.7 fl (6.2-12.0); Monocyte% 8.3 % (0-10); Neutrophil # 7.93 X10^3/uL (2.7-7.7); Neutrophil % 59.7 % (47-70); POSITIVE COUNT NO; POSITIVE DIFFERENTIAL NO; POSITIVE MORPHOLOGY NO; Platelet Count 316 K/mm3 (150-450); RBC Distribution Width CV 12.6 % (11.6-14.6); RBC Distribution Width SD 43.9 fl (35.1-43.9); White Blood Count 13.3 K/mm3 (4.4-11.0)
[2018-08-18 10:57] LABS: Anion Gap 7 (5-15); BUN 12 mg/dL (7-18); BUN/Creat Ratio 22.6 RATIO (10-20); Calcium,Total 8.4 mg/dL (8.5-10.1); Chloride 102 mmol/L (98-107); Creatinine, Serum 0.53 mg/dL (0.55-1.02); EST Glomerular Filtration Rate 132 mL/min (>60); Est Glom Filt Rate - Afr Amer 160 mL/min (>60); Estimated Creatinine Clearance 126.81 ml/min; Glucose 248 mg/dL (74-106); Potassium 4.4 mmol/L (3.5-5.1); Sodium Level 135 mmol/L (136-145)
[2018-08-18] MEDS: 0.9% Normal Saline 1,000 ML 250 ML IV (11:13)
[2018-08-18] MEDS: Aspirin 81 MG TAB.CHEW 324 MG PO (11:14)
[2018-08-18] MEDS: Morphine 4 MG/ML Syringe IV ×3 (13:04→21:40)
[2018-08-18] MEDS: Nitroglycerin Oint 1 INCH PACKET TRANSDERM. (13:04)
--- NOTE | 2018-08-18 13:34 | NURSING ---
PCU CP, CAD S/P STENT MAR
--- NOTE | 2018-08-18 13:43 | HP.PCM_ITS ---
Problem List (1) Atypical chest pain Status: Acute (2) Asthma Status: Chronic (3) Coronary artery disease Status: Chronic (4) DM (diabetes mellitus), type 1 Status: Chronic (5) Essential hypertension Status: Chronic (6) GERD (gastroesophageal reflux disease) Status: Chronic Qualifiers: (7) Hypercholesterolemia Status: Chronic (8) Hypothyroidism Status: Chronic (9) Morbid obesity Status: Chronic (10) Sleep-disordered breathing Status: Chronic (11) Tobacco use Status: Chronic History of Present Illness Date of Admission: 08/18/18 Chief Complaint: Chest pain for 3-4 days The patient is a 42 year old F with history of coronary artery status post 5 stents, last 2 stents a week ago in [facility] came to ED for progressive worsening midsternal chest pain with radiation to arm for 3-4 days. Sometimes it lasts for few minutes and sometimes he stays for about 20 minutes, gets worse with exertion and improved with rest. Patient still complaining of chest pain. She has mild associated shortness of breath but denies palpitation. She also has mild cough prior to cath procedure. She has other comorbidities including diabetes mellitus type 2, hypertension, dyslipidemia and a smoker. EKG in the ED shows normal sinus rhythm at [address]-T change. Prior EKG in September 2016 shows sinus tachycardia at 128 bpm [] Past Medical History Past Medical History (Chronic Problems): Chronic Problems Sleep-disordered breathing (Chronic) Essential hypertension (Chronic) Coronary artery disease (Chronic) Hypercholesterolemia (Chronic) Tobacco use (Chronic) Morbid obesity (Chronic) Hypothyroidism (Chronic) GERD (gastroesophageal reflux disease) (Chronic) Asthma (Chronic) DM (diabetes mellitus), type 1 (Chronic) Allergies No Known Allergies Allergy (Verified 04/27/18 11:00) Home Medications: Ambulatory Orders Medication Instructions Recorded Aspirin [Aspirin, Baby] 81 mg PO DAILY@0800 06/11/15 Carvedilol [Coreg (Beta Monisha)] 12.5 mg PO BID 06/11/15 Clopidogrel Bisulfate [Plavix] 75 mg PO DAILY 06/11/15 Levothyroxine [Synthroid] 220 mcg PO DAILY 06/11/15 Lisinopril [Zestril] 40 mg PO DAILY 06/11/15 Albuterol Inhaler [Ventolin Hfa] 1 - 2 puff INHALATION Q4H PRN PRN 10/15/15 #1 inhaler Pantoprazole Sodium [Protonix] 40 mg PO DAILY 09/23/16 Simvastatin [Zocor] 40 mg PO QHS #1 tablet 09/26/16 Cyclobenzaprine [Flexeril] 10 mg PO TID PRN PRN #14 tablet 01/09/18 Ondansetron [Zofran Odt] 4 mg PO Q8H PRN PRN #10 tablet 03/07/18 Insulin NPH Human Isophane 32 units SC BID 03/20/18 [Novolin N] Insulin Regular, Human [Novolin R] 26 units SC TID 03/20/18 Hydrochlorothiazide 12.5 mg PO DAILY 08/18/18 Venlafaxine XR [Effexor Xr] 150 mg PO DAILY 08/18/18 Surgical History: angioplasty - PTCA ?4 at [facility], cholecystectomy, - - 4 stents in the past, 2 back surgeries with hardware, carpal tunnel, tonsils, section, I&D of breast abscesses, cervical conization Psychiatric History: Depression 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 Denies: Palpitations Respiratory: Reports: Cough, Shortness of Breath, Shortness of breath upon exertion. Denies: Shortness of breath at rest, Sputum production Gastrointestinal: Denies: Abdominal Pain, Nausea, Vomiting Genitourinary: Denies: Dysuria Musculoskeletal: Denies: Joint Pain, Joint Tenderness Skin: Denies: Rash, Wounds Neurological: Denies: Numbness, Tingling, Focal weakness Psychiatric: Denies: Anxiety, Depression, Homicidal Ideations, Suicidal Ideations Hematologic/ Lymphatic: Denies: Easy Bruising, Easy Bleeding VTE Information - Inpt Only VTE Present on Admission: No VTE Mechan Device Prophylaxis: None VTE Pharm Prophylaxis ordered?: Yes Patient Problems: Active and Suspected Problems Atypical chest pain (Acute) - Physical Exam General: Alert, Oriented x3, Cooperative HEENT: Atraumatic, PERRLA, EOMI, Normocephalic Oral: Dry Mucosa Neck: Supple, No JVD, Negative Carotid Bruits Lungs: Clear to auscultation, Normal air movement, No rhonchi, No wheeze, No rales Cardiovascular: Regular rate, Regular Rhythm, Normal S1, Normal S2, No murmurs Abdomen: Bowel Sounds Present, Soft, Non Tender, Non-Distended Extremities: Capillary Refill Less than 3 Seconds, Edema - Mild ankle edema Skin: No rashes, No breakdown Musculoskeletal: No Tenderness to Palpation of Joints or Extremities, Arthritic Changes Neurological: Cranial nerves II-XII grossly intact, Deep Tendon Reflexes 2+/4 and Symmetrical, Neuro grossly intact, Motor Exam 5/5 strength throughout Psych/Mental Status: Normal Affect, Appropriate Vital Signs Temp Pulse Resp BP Pulse Ox 97.4 F L 81 22 H 178/86 H 99 08/18/18 10:14 08/18/18 13:05 08/18/18 13:05 08/18/18 13:05 08/18/18 13:05 Oxygen Delivery Method Room Air Weight: 325 lb 2.909 oz Body Mass Index (BMI) 52.4 Finger Stick Blood Glucose 81 Laboratory Tests Past 24 Hrs 08/18/18 08/18/18 08/18/18 10:30 10:30 10:30 WBC 13.3 H RBC 4.50 Hgb 14.7 Hct 43.5 MCV 96.7 MCH 32.7 H MCHC 33.8 RDW 12.6 RDW Differential 43.9 Plt Count 316 MPV 10.7 Immature Gran % (Auto) 0.300 Neut % (Auto) 59.7 Lymph % (Auto) 24.9 [place] % (Auto) 8.3 Eos % (Auto) 6.3 H Baso % (Auto) 0.5 Absolute Neuts (auto) 7.9 H Absolute Lymphs (auto) 3.31 Total Counted Not Reportable PT 12.0 INR 0.9 APTT 23.9 L Sodium 135 L Potassium 4.4 Chloride 102 Carbon Dioxide 26.0 Anion Gap 7 BUN 12 Creatinine 0.53 L Estim Creat Clear Calc 126.81 Est GFR (MDRD) Af Amer 160 Est GFR (MDRD) Non-Af 132 BUN/Creatinine Ratio 22.6 H Glucose 248 H Calcium 8.4 L Troponin I 0.041 Assessment/Plan All Active Problems Atypical chest pain (Acute) Chest pain (Resolved) DKA (diabetic ketoacidosis) (Resolved) Acute coronary syndrome (Ruled-out) The patient is a 42 year old F with history of coronary artery status post 5 stents, last 2 stents a week ago in [facility] came to ED for progressive worsening midsternal chest pain with radiation to arm for 3-4 days. Sometimes it lasts for few minutes and sometimes he stays for about 20 minutes, gets worse with exertion and improved with rest. Patient still complaining of chest pain. She has mild associated shortness of breath but denies palpitation. She also has mild cough prior to cath procedure. She has other comorbidities including diabetes mellitus type 2, hypertension, dyslipidemia and a smoker. EKG in the ED shows normal sinus rhythm at [address]-T change. Prior EKG in September 2016 shows sinus tachycardia at 128 bpm. Blood pressure is elevated 178/86. 1. Atypical chest pain with concern of unstable angina: Patient is being admitted in PCU. Serial troponin enzymes. First troponin is negative. Cardiology consult. Patient is on aspirin, Plavix, beta-monisha and JIMI inhibitor. Patient is on nitro glycerin ointment. Started on Imdur 30 mg daily. 2. Coronary artery disease status post 5 stents: Continue cardiac medications as above. 3. Diabetes mellitus type 2: Accu-Chek before meals and at bedtime and cover with NovoLog sliding scale. Blood sugar is elevated. A1c tomorrow a.m. 4. Hypertension: Blood pressure is uncontrolled. On lisinopril. Add hydralazine 10 mg IV every 4 hourly as needed for systolic blood pressure more than 180 mmHg. 5. Dyslipidemia: On high intensity statin. Lipid profile tomorrow a.m. 6. Factor V Leiden abnormality and DVT prophylaxis: Patient states she has a history of DVT in upper extremity but she did not on anticoagulant agent. Will need further workup as an outpatient. Heparin 5000 units subcutaneous 3 times daily as patient might be taken for heart cath and may need to be discontinued. [] Laboratory Results 08/18/18 10:30: WBC 13.3 H, RBC 4.50, Hgb 14.7, Hct 43.5, MCV 96.7, MCH 32.7 H, MCHC 33.8, RDW 12.6, RDW Differential 43.9, Plt Count 316, MPV 10.7, Immature Gran % (Auto) 0.300, Neut % (Auto) 59.7, Lymph % (Auto) 24.9, [place] % (Auto) 8.3, Eos % (Auto) 6.3 H, Baso % (Auto) 0.5, Absolute Neuts (auto) 7.9 H, Absolute Lymphs (auto) 3.31, Total Counted Not Reportable 08/18/18 10:30: PT 12.0, INR 0.9, APTT 23.9 L 08/18/18 10:30: Sodium 135 L, Potassium 4.4, Chloride 102, Carbon Dioxide 26.0, Anion Gap 7, BUN 12, Creatinine 0.53 L, Estim Creat Clear Calc 126.81, Est GFR (MDRD) Af Amer 160, Est GFR (MDRD) Non-Af 132, BUN/Creatinine Ratio 22.6 H, Glucose 248 H, Calcium 8.4 L, Troponin I 0.041 08/18/18 14:05: Troponin I Pending Clinical Impression(s) from Imaging Studies Chest X-Ray 08/18/18 10:35 IMPRESSION: No radiographic evidence of acute cardiopulmonary disease. Code Visit Inpatient E&M: 46432 Init Hosp L3
--- NOTE | 2018-08-18 13:59 | EKG12_ITS ---
Test Reason : CP Blood Pressure : / mmHG Vent. Rate : 076 BPM Atrial Rate : 076 BPM P-R Int : 146 ms QRS Dur : 080 ms QT Int : 376 ms P-R-T Axes : 027 003 014 degrees QTc Int : 423 ms Normal sinus rhythm Cannot rule out Inferior infarct , age undetermined Abnormal ECG Confirmed by KEIKO SILVA, REHAN ([id number]), manager editorial GEORGE WONG ([id number]) on 08/24/2018 11:33:59 AM Referred By: Radu Valladares Confirmed By:REHAN ADEN MD
--- NOTE | 2018-08-18 15:59 | PCM.CONS.C ---
Problem List (1) Atypical chest pain Status: Acute (2) Essential hypertension Status: Chronic (3) Coronary artery disease Status: Chronic (4) Hypercholesterolemia Status: Chronic (5) Tobacco use Status: Chronic (6) Morbid obesity Status: Chronic (7) DM (diabetes mellitus), type 1 Status: Chronic Reason for Consult Date of Consultation: 08/18/18 Reason for Consultation: Unstable angina, coronary artery disease, status post stents, tobacco abuse, severe obesity, hypertension, hypercholesterolemia, diabetes History of Present Illness: The patient is a 42 year old F with severe obesity, diabetes, hypertension, hypercholesterolemia, coronary artery disease status post multiple angioplasty and stenting, most recent took place 1 week ago at [facility] in [place]. At that time she received a resolute drug-eluting stent to the distal RCA receiving a 2.5X 16 RAYMUNDO resolute stent, as well as a 2.25 ex-16 resolute drug-eluting stent to the proximal portion of her diagonal #1. The patient initially felt somewhat better but then had recurrent substernal chest pain, which was worse with exertion. She reports this is similar to her angina prior to her angioplasty and stenting. When this did not improve with nitroglycerin she sought medical attention at [facility] ER. In the ER her EKG showed normal sinus rhythm, normal axis, normal intervals, no acute changes. Her initial troponin was 0.04, and second troponin was 0.199. She is currently chest pain-free on a nitro drip. On further history the patient states that she has a total of 5 stents, and it appears that she has had several stents in the right coronary artery according to her pictures. Patient was given the option of returning to [facility] in [place] and she requested to stay at [facility]. I explained to her the risks/benefits of a catheterization including specific attention to lack of on-site surgical backup, and she wishes to stay at [place]. Patient claims that she had a closure device in the right groin, which has remained stable. She has some mild ecchymosis in her right groin but no bruits. No tenderness. [] Past Medical History Allergies/Adverse Reactions: Allergies No Known Allergies Allergy (Verified 04/27/18 11:00) Home Medications: Ambulatory Orders Medication Instructions Recorded Aspirin [Aspirin, Baby] 81 mg PO DAILY@0800 06/11/15 Carvedilol [Coreg (Beta Monisha)] 12.5 mg PO BID 06/11/15 Clopidogrel Bisulfate [Plavix] 75 mg PO DAILY 06/11/15 Levothyroxine [Synthroid] 220 mcg PO DAILY 06/11/15 Lisinopril [Zestril] 40 mg PO DAILY 06/11/15 Albuterol Inhaler [Ventolin Hfa] 1 - 2 puff INHALATION Q4H PRN PRN 10/15/15 #1 inhaler Pantoprazole Sodium [Protonix] 40 mg PO DAILY 09/23/16 Cyclobenzaprine [Flexeril] 10 mg PO TID PRN PRN #14 tablet 01/09/18 Ondansetron [Zofran Odt] 4 mg PO Q8H PRN PRN #10 tablet 03/07/18 Insulin NPH Human Isophane 32 units SC BID 03/20/18 [Novolin N] Insulin Regular, Human [Novolin R] 26 units SC TIDCM 03/20/18 ALPRAZolam [Xanax] 1 mg PO QHS 08/18/18 Hydrochlorothiazide 12.5 mg PO DAILY 08/18/18 Hydrocodone/Acetaminophen 1 tab PO Q4H PRN PRN 08/18/18 [Hydrocodone-Acetamin 5-325 mg] Simvastatin [Zocor] 40 mg PO QHS 08/18/18 Venlafaxine XR [Effexor Xr] 150 mg PO DAILY 08/18/18 Past Medical History (Chronic Problems): Chronic Problems Sleep-disordered breathing (Chronic) Essential hypertension (Chronic) Coronary artery disease (Chronic) Hypercholesterolemia (Chronic) Tobacco use (Chronic) Morbid obesity (Chronic) Hypothyroidism (Chronic) GERD (gastroesophageal reflux disease) (Chronic) Asthma (Chronic) DM (diabetes mellitus), type 1 (Chronic) Surgical History: angioplasty - PTCA ?4 at [facility], cholecystectomy, - - 4 stents in the past, 2 back surgeries with hardware, carpal tunnel, tonsils, section, I&D of breast abscesses, cervical conization Psychiatric History: Depression 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 Denies: Orthopnea, PND, Peripheral Edema, Palpitations, Lightheadedness, Dizziness, Near Syncope, Syncope Respiratory: Denies: Cough, Sputum Production, Hemoptysis Gastrointestinal: Denies: Hematemesis, Hematochezia, Melena Genitourinary: Denies: Dysuria, Hematuria Skin: Denies: Rash Subjectve: Patient resting comfortably, no acute distress. Objective: Vital Signs Temp Pulse Resp BP Pulse Ox 97.4 F L 82 18 142/92 H 99 08/18/18 10:14 08/18/18 15:11 08/18/18 15:01 08/18/18 15:11 08/18/18 15:01 Oxygen Delivery Method Room Air Weight: 320 lb 12.361 oz Body Mass Index (BMI) 51.7 Finger Stick Blood Glucose 81 General: Awake, Alert, Oriented x 3 HEENT: PERRL, EOMI, Sclera Non Icteric Neck: Supple, Good ROM, No Lymph Node Enlargement Lungs: Clear to auscultation Cardiovascular: Regular Rhythm, Normal S1, Normal S2, No Murmurs, No Rubs, No Gallops 08/18/18 10:30: WBC 13.3 H, RBC 4.50, Hgb 14.7, Hct 43.5, MCV 96.7, MCH 32.7 H, MCHC 33.8, RDW 12.6, RDW Differential 43.9, Plt Count 316, MPV 10.7, Immature Gran % (Auto) 0.300, Neut % (Auto) 59.7, Lymph % (Auto) 24.9, Harper % (Auto) 8.3, Eos % (Auto) 6.3 H, Baso % (Auto) 0.5, Absolute Neuts (auto) 7.9 H, Total Counted Not Reportable 08/18/18 10:30: PT 12.0, INR 0.9, APTT 23.9 L 08/18/18 10:30: Sodium 135 L, Potassium 4.4, Chloride 102, Carbon Dioxide 26.0, Anion Gap 7, BUN 12, Creatinine 0.53 L, Est GFR (MDRD) Af Amer 160, Est GFR (MDRD) Non-Af 132, BUN/Creatinine Ratio 22.6 H, Glucose 248 H, Calcium 8.4 L, Troponin I 0.041 08/18/18 14:05: Troponin I 0.199 H Rhythm: EKG: ECHO: Stress Test: Cardiac Cath: PCI: CT Surgery: Holter monitor: EPS: PPM: CXR: Chest CT Scan: Assessment/Plan 1. Coronary artery disease: Patient presents with recurrent substernal chest pain similar to her previous angina prior to her most recent stenting 1 week ago of her diagonal branch and distal right coronary artery. She has 3 previous stents, presumably in the right coronary artery which were patent. Patient has no dynamic EKG changes however has a subtle abnormality in her troponin which may be hypertension related. She is currently chest pain-free. Given the patient's constellation of symptoms, risk factors, recent stents, abnormal troponins, I recommend that she undergo a repeat left her catheterization tomorrow morning to determine if she is had any issues with her new stents, edge dissections, or new lesions which require attention. She remain on baby aspirin, Plavix, lisinopril,, and hydrochlorothiazide. The patient may benefit from Nitropaste therapy such as Imdur or or vasodilators such as amlodipine for possible microvascular disease as a source of her pain. test is negative. 2. Hyperlipidemia: Recommend obtaining a fasting lipid profile. Continue Zocor. Her LDL should be less than 70. 3. Tobacco cessation: I had a long and thorough discussion with the patient and her significant other regarding tobacco abuse, and explained to her the relationship between tobacco and premature coronary artery disease superimposed on her uncontrolled diabetes. I recommended that she discontinue all tobacco products, and the patient is voiced understanding. In addition, I recommend an electric shovel operator for her uncontrolled diabetes. 4. Thank you very much for the opportunity to participate in the cardiac care of your patient. Consultation time took place between 330 and 4:06 PM. Code Visit Inpatient E&M: 15304 Init Hosp L2
--- NOTE | 2018-08-18 16:04 | CON.PCM_ITS ---
Problem List (1) Atypical chest pain Status: Acute (2) Essential hypertension Status: Chronic (3) Coronary artery disease Status: Chronic (4) Hypercholesterolemia Status: Chronic (5) Tobacco use Status: Chronic (6) Morbid obesity Status: Chronic (7) DM (diabetes mellitus), type 1 Status: Chronic Reason for Consult Date of Consultation: 08/18/18 Reason for Consultation: Unstable angina, coronary artery disease, status post stents, tobacco abuse, severe obesity, hypertension, hypercholesterolemia, diabetes History of Present Illness: The patient is a 42 year old F with severe obesity, diabetes, hypertension, hypercholesterolemia, coronary artery disease status post multiple angioplasty and stenting, most recent took place 1 week ago at [facility] in [place]. At that time she received a resolute drug-eluting stent to the distal RCA receiving a 2.5X 16 RAYMUNDO resolute stent, as well as a 2.25 ex-16 resolute drug- eluting stent to the proximal portion of her diagonal #1. The patient initially felt somewhat better but then had recurrent substernal chest pain, which was worse with exertion. She reports this is similar to her angina prior to her angioplasty and stenting. When this did not improve with nitroglycerin she sought medical attention at [facility] ER. In the ER her EKG showed normal sinus rhythm, normal axis, normal intervals, no acute elliott ges. Her initial troponin was 0.04, and second troponin was 0.199. She is currently chest pain-free on a nitro drip. On further history the patient states that she has a total of 5 stents, and it a ppears that she has had several stents in the right coronary artery according to her pictures. Patient was given the option of returning to [facility] in [place] and she requested to stay at [facility]. I explained to her the risks/benefits of a catheterization including specific attention to lack of on-site surgical backup, and she wishes to stay at [place]. Patient claims that she had a closure device in the right groin, which has remained stable. She has some mild ecchymosis in her right groin but no bruits. No tenderness. [] Past Medical History Allergies/Adverse Reactions: Allergies No Known Allergies Allergy (Verified 04/27/18 11:00) Home Medications: Ambulatory Orders Medication Instructions Recorded Aspirin [Aspirin, Baby] 81 mg PO DAILY@0800 06/11/15 Carvedilol [Coreg (Beta Monisha)] 12.5 mg PO BID 06/11/15 Clopidogrel Bisulfate [Plavix] 75 mg PO DAILY 06/11/15 Levothyroxine [Synthroid] 220 mcg PO DAILY 06/11/15 Lisinopril [Zestril] 40 mg PO DAILY 06/11/15 Albuterol Inhaler [Ventolin Hfa] 1 - 2 puff INHALATION Q4H PRN PRN 10/15/15 #1 inhaler Pantoprazole Sodium [Protonix] 40 mg PO DAILY 09/23/16 Cyclobenzaprine [Flexeril] 10 mg PO TID PRN PRN #14 tablet 01/09/18 Ondansetron [Zofran Odt] 4 mg PO Q8H PRN PRN #10 tablet 03/07/18 Insulin NPH Human Isophane 32 units SC BID 03/20/18 [Novolin N] Insulin Regular, Human [Novolin R] 26 units SC TIDCM 03/20/18 ALPRAZolam [Xanax] 1 mg PO QHS 08/18/18 Hydrochlorothiazide 12.5 mg PO DAILY 08/18/18 Hydrocodone/Acetaminophen 1 tab PO Q4H PRN PRN 08/18/18 [Hydrocodone-Acetamin 5-325 mg] Simvastatin [Zocor] 40 mg PO QHS 08/18/18 Venlafaxine XR [Effexor Xr] 150 mg PO DAILY 08/18/18 Past Medical History (Chronic Problems): Chronic Problems Sleep-disordered breathing (Chronic) Essential hypertension (Chronic) Coronary artery disease (Chronic) Hypercholesterolemia (Chronic) Tobacco use (Chronic) Morbid obesity (Chronic) Hypothyroidism (Chronic) GERD (gastroesophageal reflux disease) (Chronic) Asthma (Chronic) DM (diabetes mellitus), type 1 (Chronic) Surgical History: angioplasty - PTCA ?4 at [facility], cholecystectomy, - - 4 stents in the past, 2 back surgeries with hardware, carpal tunnel, tonsils, section, I&D of breast abscesses, cervical conization Psychiatric History: Depression 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 Denies: Orthopnea, PND, Peripheral Edema, Palpitations, Lightheadedness, Dizziness, Near Syncope, Syncope Respiratory: Denies: Cough, Sputum Production, Hemoptysis Gastrointestinal: Denies: Hematemesis, Hematochezia, Melena Genitourinary: Denies: Dysuria, Hematuria Skin: Denies: Rash Subjectve: Patient resting comfortably, no acute distress. Objective: Vital Signs Temp Pulse Resp BP Pulse Ox 97.4 F L 82 18 142/92 H 99 08/18/18 10:14 08/18/18 15:11 08/18/18 15:01 08/18/18 15:11 08/18/18 15:01 Oxygen Delivery Method Room Air Weight: 320 lb 12.361 oz Body Mass Index (BMI) 51.7 Finger Stick Blood Glucose 81 General: Awake, Alert, Oriented x 3 HEENT: PERRL, EOMI, Sclera Non Icteric Neck: Supple, Good ROM, No Lymph Node Enlargement Lungs: Clear to auscultation Cardiovascular: Regular Rhythm, Normal S1, Normal S2, No Murmurs, No Rubs, No Gallops 08/18/18 10:30: WBC 13.3 H, RBC 4.50, Hgb 14.7, Hct 43.5, MCV 96.7, MCH 32.7 H, MCHC 33.8, RDW 12.6, RDW Differential 43.9, Plt Count 316, MPV 10.7, Immature Gran % (Auto) 0.300, Neut % (Auto) 59.7, Lymph % (Auto) 24.9, [place] % (Auto) 8.3, Eos % (Auto) 6.3 H, Baso % (Auto) 0.5, Absolute Neuts (auto) 7.9 H, Total Counted Not Reportable 08/18/18 10:30: PT 12.0, INR 0.9, APTT 23.9 L 08/18/18 10:30: Sodium 135 L, Potassium 4.4, Chloride 102, Carbon Dioxide 26.0, Anion Gap 7, BUN 12, Creatinine 0.53 L, Est GFR (MDRD) Af Amer 160, Est GFR (MDRD) Non-Af 132, BUN/Creatinine Ratio 22.6 H, Glucose 248 H, Calcium 8.4 L, Troponin I 0.041 08/18/18 14:05: Troponin I 0.199 H Rhythm: EKG: ECHO: Stress Test: Cardiac Cath: PCI: CT Surgery: Holter monitor: EPS: PPM: CXR: Chest CT Scan: Assessment/Plan 1. Coronary artery disease: Patient presents with recurrent substernal chest pain similar to her previous angina prior to her most recent stenting 1 week ago of her diagonal branch and distal right coronary artery. She has 3 previous stents, presumably in the right coronary artery which were patent. Patient has no dynamic EKG changes however has a subtle abnormality in her troponin which may be hypertension related. She is currently chest pain-free. Given the patient's constellation of symptoms, risk factors, recent stents, abnormal troponins, I recommend that she undergo a repeat left her catheterization tomorrow morning to determine if she is had any issues with her new stents, edge dissections, or new lesions which require attention. She remain on baby aspirin, Plavix, lisinopril,, and hydrochlorothiazide. The patient may benefit from Nitropaste therapy such as Imdur or or vasodilators such as amlodipine for possible microvascular disease as a source of her pain. test is negative. 2. Hyperlipidemia: Recommend obtaining a fasting lipid profile. Continue Zocor. Her LDL should be less than 70. 3. Tobacco cessation: I had a long and thorough discussion with the patient and her significant other regarding tobacco abuse, and explained to her the relationship between tobacco and premature coronary artery disease superimposed on her uncontrolled diabetes. I recommended that she discontinue all tobacco products, and the patient is voiced understanding. In addition, I recommend an technical planner for her uncontrolled diabetes. 4. Thank you very much for the opportunity to participate in the cardiac care of your patient. Consultation time took place between 330 and 4:06 PM. Code Visit Inpatient E&M: 91267 Init Hosp L2
--- NOTE | 2018-08-18 16:52 | EKG12_ITS ---
Test Reason : CP ADMISSION Blood Pressure : / mmHG Vent. Rate : 087 BPM Atrial Rate : 087 BPM P-R Int : 154 ms QRS Dur : 078 ms QT Int : 384 ms P-R-T Axes : 035 004 012 degrees QTc Int : 462 ms Normal sinus rhythm Cannot rule out Inferior infarct , age undetermined Abnormal ECG When compared with ECG of 23-SEP-2016 01:29, No significant change was found Confirmed by KEIKO SILVA, REHAN ([id number]), online content editor GEORGE WONG ([id number]) on 08/20/2018 9:18:23 AM Referred By: Radu Valladares Confirmed By:REHAN ADEN MD
--- NOTE | 2018-08-18 16:52 | ECHOCS_ITS ---
Reason For Study: CHEST PAIN Procedure This was a 2D Doppler, Color Flow transthoracic echocardiogram. Contrast injection was performed. The exam was non-diagnostic due to body habitus. Exam performed portable in patient room. Left Ventricle Normal size and thickness. The estimated ejection fraction is 65 %. Stage 1 diastolic dysfunction. No regional wall motion abnormalities noted. Right Ventricle Mildly dilated right ventricle. Normal systolic function. Atria Normal left atrium. Normal right atrium. Normal atrial septum. Mitral Valve The mitral valve is structurally normal. No prolapse or stenosis seen. Tricuspid Valve Normal tricuspid valve. Trivial tricuspid valve insufficiency. Aortic Valve Normal aortic valve. Trisinus/trileaflet aortic valve. Pulmonic Valve Normal pulmonic valve. No pulmonic valve insufficiency. Great Vessels Normal aortic root. Normal arch. Normal inferior vena cava. Inferior vena cava collapse with sniff. Pericardium/Pleural Trivial pericardial effusion. There are no echocardiographic indications of cardiac tamponade. Medication Diluted definity 4ml given slow IV push to enhance endocardial definition. MMode/2D Measurements & Calculations LVIDd: 4.3 cm IVSd: 0.97 cm Ao root diam: 3.3 cm LVIDs: 2.8 cm LVPWd: 1.1 cm RVDd: 4.2 cm FS: 35.2 % LAV(MOD-bp): 43.5 ml LVAd ap4: 29.9 cm2 SV(MOD-sp4): 62.2 ml LAV(MOD-bp) Indexed: 17.8 ml/m2 EDV(MOD-sp4): 90.8 ml LAV(MOD-sp2): 48.2 ml EDV(sp4-el): 96.8 ml LAV(MOD-sp4): 37.4 ml LVAs ap4: 15.3 cm2 ESV(MOD-sp4): 28.6 ml ESV(sp4-el): 29.8 ml EF(MOD-sp4): 68.5 % EF(sp4-el): 69.2 % SV(sp4-el): 67.0 ml LA A4 area: 15.9 cm2 LA dimension(2D): 3.8 cm RA A4 area: 14.0 cm2 Time Measurements MV dec time: 0.18 sec Doppler Measurements & Calculations MV E max selvin: 61.1 cm/sec Lat Peak E' Selvin: 10.1 cm/sec Med Peak E' Selvin: 5.7 cm/sec MV A max selvin: 87.6 cm/sec E/E' lat: 6.0 E/E' med: 10.8 MV E/A: 0.70 Ao V2 max: 148.6 cm/sec LV V1 max: 99.0 cm/sec Ao max P.8 mmHg LV V1 max P.9 mmHg Interpretation Summary The estimated ejection fraction is 65 %. Stage 1 diastolic dysfunction. Mildly dilated right ventricle. Trivial tricuspid valve insufficiency. Trivial posterior pericardial effusion. There are no echocardiographic indications of cardiac tamponade. Compared to echo report dated 09/23/2016, LV function has remained the same. Trivial posterior pericardial effusion is now present. The study was technically difficult. Contrast injection was performed. Ordering Physician: Radu Valladares Referring Physician: CULLEN MARSHALL Performed By: Radha Becker, PORSCHE, RVT
[2018-08-18 17:26] LABS: BNP,B-Type NATRIURETIC PEPTIDE 29.7 pg/mL (0-100)
[2018-08-18 18:00] LABS: Bedside Glucose 373 mg/dL (70-110)
[2018-08-18] MEDS: Clopidogrel Bisulfate 75 MG Tablet PO (18:27)
[2018-08-18] MEDS: Insulin Lispro 100 UNIT/ML INSULN.PEN 26 UNIT SC (18:28)
[2018-08-18] MEDS: Insulin Lispro 100 UNIT/ML INSULN.PEN SQ ×2 (18:29→21:51)
[2018-08-18] MEDS: 0.9% Normal Saline 1,000 ML 50 ML IV (18:31)
[2018-08-18] MEDS: Ondansetron ODT 4 MG Tablet PO (18:47)
[2018-08-18] MEDS: Venlafaxine XR 150 MG Capsule PO (18:48)
[2018-08-18] MEDS: Lisinopril 40 MG Tablet PO (18:51)
[2018-08-18] MEDS: Pantoprazole Sodium 40 MG Tablet PO (18:51)
[2018-08-18] MEDS: Albuterol 2.5 MG/3 ML VIAL.NEB. INHALATION (19:37)
[2018-08-18] MEDS: Carvedilol 12.5 MG Tablet PO (21:42)
[2018-08-18] MEDS: Atorvastatin Calcium 80 MG Tablet PO (21:42)
[2018-08-18] MEDS: Heparin Injection (Vial) 5,000 UNIT/ML VIAL 5000 UNIT SC (21:51)
[2018-08-18 22:06] LABS: Bedside Glucose 289 mg/dL (70-110)
[2018-08-18] MEDS: ALPRAZolam 0.5 MG Tablet 1 MG PO (23:45)
[2018-08-19] VITALS (32 sets, daily range): BP systolic 97–137; BP diastolic 63–92; PULSE 88–116; RESP 12–21; TEMP 36.6–36.8; O2SAT 92–99
[2018-08-19] MEDS: 0.9% NaCl Peripheral Flush Adult/Peds IV ×4 (01:43→21:57)
[2018-08-19] MEDS: Morphine 4 MG/ML Syringe IV ×4 (01:43→21:45)
[2018-08-19 05:19] LABS: Mucous, Urine 0 SEEN /hpf (<or=2+); Red Blood Cells-Urine 0 SEEN /hpf (0-5)
[2018-08-19 05:22] LABS: Color, Urine Yellow (Yellow); Glucose, Dipstick 1000 mg/dl (Normal); Ketone-Dipstick Negative (Negative); Leukocyte Esterase-Dipstick Negative /ul (Negative); Nitrite-Dipstick Negative (Negative); Occult Blood-Urine Negative /ul (Negative); Protein-Dipstick Negative (Negative); Urine Bilirubin Dipstick Negative (Negative); Urine Clarity Sl. Cloudy (Clear); Urine Urobilinogen Normal (Normal)
[2018-08-19 05:26] LABS: Absolute Lymphocyte Count 3.34 X10^3/ul (0.83-4.51); Absolute Neutrophil Count 5.6 X10^3/uL (2.0-7.7); Basophil# 0.09 X10^3/uL; Basophil% 0.8 % (0-1); Eosinophil# 0.65 X10^3/uL; Hematocrit 38.8 % (37-47); Hemoglobin 13.2 g/dl (12.0-15.0); Lymphocyte # 3.34 X10^3/ul (4.0); Lymphocyte % 30.9 % (19-41); Mean Corpuscular Hgb 33.2 pg (27.0-32.0); Mean Corpuscular Volume 97.7 fL (81-99); Mean Platelet Vol. 10.2 fl (6.2-12.0); Monocyte# 1.07 X10^3/uL; Monocyte% 9.9 % (0-10); Neutrophil # 5.62 X10^3/uL (2.7-7.7); Platelet Count 298 K/mm3 (150-450); RBC Distribution Width CV 12.4 % (11.6-14.6); RBC Distribution Width SD 43.2 fl (35.1-43.9); Red Blood Count 3.97 M/mm3 (4.2-5.4); White Blood Count 10.8 K/mm3 (4.4-11.0)
[2018-08-19 05:28] LABS: POSITIVE COUNT NO; POSITIVE DIFFERENTIAL NO; POSITIVE MORPHOLOGY NO
[2018-08-19 05:30] LABS: Internal QC Validated? YES +Cl - CLEAR BKGD; Pregnancy, Urine Negative Negative
[2018-08-19 05:31] LABS: Amorphous Sediment 1+; Bacteria RARE /hpf (None Seen); Squamous Epithelial Cells - UA 5-10 SEEN /hpf (5-10); White Blood Cells 0-5 SEEN /hpf (0-5)
[2018-08-19 05:42] LABS: International Normalized Ratio 0.9; Partial Thromboplast Time 25.8 Seconds (24.1-36.2); Prothrombin Time (Protime)PT. 12.2 SECONDS (11.7-14.9)
[2018-08-19] MEDS: Levothyroxine 125 MCG Tablet PO (05:44)
[2018-08-19] MEDS: Clopidogrel Bisulfate 75 MG Tablet PO (05:44)
[2018-08-19] MEDS: Carvedilol 12.5 MG Tablet PO (05:44)
[2018-08-19] MEDS: Levothyroxine 100 MCG Tablet PO (05:44)
[2018-08-19] MEDS: Lisinopril 40 MG Tablet PO (05:45)
[2018-08-19] MEDS: Aspirin 81 MG TAB.CHEW PO (05:45)
[2018-08-19 05:53] LABS: Anion Gap 8 (5-15); BUN 12 mg/dL (7-18); BUN/Creat Ratio 21.2 RATIO (10-20); Calcium,Total 8.2 mg/dL (8.5-10.1); Chloride 103 mmol/L (98-107); Cholesterol 171 mg/dL (200); Creatinine, Serum 0.57 mg/dL (0.55-1.02); EST Glomerular Filtration Rate 123 mL/min (>60); Est Glom Filt Rate - Afr Amer 149 mL/min (>60); Estimated Creatinine Clearance 117.91 ml/min; Glucose 349 mg/dL (74-106); High Density Lipoprotein 76 mg/dL; Sodium Level 138 mmol/L (136-145); Triglycerides 96 mg/dL; Very Low Density Lipoprotein 19 mg/dL (5-40)
--- NOTE | 2018-08-19 05:55 | EKG12_ITS ---
Test Reason : AM EKG Blood Pressure : / mmHG Vent. Rate : 092 BPM Atrial Rate : 092 BPM P-R Int : 152 ms QRS Dur : 076 ms QT Int : 358 ms P-R-T Axes : 042 001 013 degrees QTc Int : 442 ms Normal sinus rhythm Normal ECG When compared with ECG of 18-AUG-2018 15:57, MANUAL COMPARISON REQUIRED, DATA IS UNCONFIRMED Confirmed by KEIKO SILVA, REHAN ([id number]), associate entertainment editor GEORGE WONG ([id number]) on 08/20/2018 9:27:53 AM Referred By: Radu Valladares Confirmed By:REHAN ADEN MD
[2018-08-19 07:05] LABS: Bedside Glucose 407 mg/dL (70-110)
[2018-08-19] MEDS: Albuterol 2.5 MG/3 ML VIAL.NEB. INHALATION (07:19)
[2018-08-19 07:48] LABS: Hemoglobin A1c 9.5 % (4.2-6.3)
[2018-08-19] MEDS: DiphenhydrAMINE 25 MG Capsule 50 MG PO (07:58)
--- NOTE | 2018-08-19 08:17 | NURSING ---
Gave report to Darleen Granados RN in laboratory animal facility supervisor
--- NOTE | 2018-08-19 09:25 | CL.D_ITS ---
Patient Name: ADELFO BACK Study Date: 08/19/2018 Performing: Jorge Huerta MD Ht: 66.14 inches 168 cm : 1975 Wt: 321.87 lbs 146 kg Age: 42 Gender: female BSA: 2.45 PROCEDURE(S) PERFORMED [id number]/LV CLINICAL PROFILE AND INDICATIONS Indications: New Onset Angina <= 2 months, ACS <= 24 hrs Heart Failure: None Stress/Imaging Stress/Image Study Performed: No Angina Classification Anginal Classification w/in 2 Weeks: CCS IV CAD Presentations: Unstable angina. Non-STEMI. Symptom onset Date/Time: 08/18/2018 Time Not Availa ble Comorbidities/Risk Factors: Current/Recent Smoker (< 1year) Hypertension Dyslipidemia Prior PCI Diabetes Mellitus: Diabetes Therapy: Insulin CONCLUSIONS Non obstructive coronary arteries Widely patent recently placed DIAG and distal RCA stents. non obstructive mid LAD just distal to DIAG branch as well as distal RCA. Pt's symptoms are atypical for angina and degree of chest pain is out of proportion to CAD found. Would recommend maximal medi dee therapy, check ESR, and endocrine consult for DM2 and hypothyroidism. RECOMMENDATIONS Management as per referring Gasoline Finisher Manual sheath removal. D/w Dr Worley DESCRIPTION OF PROCEDURE The patient arrived to the procedure lab. The risks and benefits of the procedure as well as a full d escription of our services here and current unavailability of surgical backup were fully explained to the patient and/or their significant other prior to the catheterization. The Timeout was completed, verifying the correct patient and procedure. The patient's procedural site was prepped and draped in the usual fashion. Local anesthetic was given subcutaneously to right groin region with Lidocaine 2%. Using a modified Seldinger technique, arterial access was obtained via the right femoral artery, a 4 Fr sheath was inserted Left Coronary Artery selective angiography was performed in multiple views us ing a 4 Fr. JL5 catheter. Right Coronary Artery selective angiography was then performed in multiple views using a 4 Fr. 3DRC catheter. Left Ventriculography was performed in GUTIÉRREZ projection using a 4 Fr . Pigtail catheter. LV to AO pullback pressures were then recorded.The arterial sheath was pulled and manual compression applied until hemostasis is achieved. CORONARY ANGIOGRAPHY DOMINANCE: Right Dominant LEFT HEART ASSESSMENT Left Ventricular Ejection Fraction: by LV Gram 75 % Normal LV wall motion Normal Left Ventricular systolic function LVEDP: 3 mmHg Normal Left Ventricular End Diastolic Pressure LEFT MAIN: Angiographically normal LEFT ANTERIOR DECENDING ARTERY: MID LAD: Mild luminal irregularities less than 30% DIAGONAL 1: Proximal - Previously placed stent is patent CIRCUMFLEX ARTERY: Mild luminal irregularities less than 30% RIGHT CORONARY ARTERY: MID RCA: Instent restenosis 10 % DISTAL RCA: Previously placed stent is patent, Mild luminal irregularities less than 30% RT PDA: Proximal - Mild luminal irregularities less than 30% COMPLICATIONS No Complications PROCEDURE MEDICATIONS Versed 2 mg IV Oxygen: 2 L/min via nasal cannula Nitro glycerin 25mg / 250ml D5W @ 20mcq from PCU 08/19/2018 08:38:25 Nitro 200 mcg IC 08/19/2018 09:00:08 SUMMARY OF HEMODYNAMIC DATA Time AIR REST ECG 08:34:27 AO 122/81 (99) SA 08:54:16 LV 107/-11, 3 09:03:41 LV 107/-10, 3 09:03:47 LVp 102/-8, 1 09:03:55 AOp 92/56 (71) 09:04:00 Signed By Jorge Huerta MD On 08/19/2018 09:24:34 Jorge Huerta MD
[2018-08-19 09:37] LABS: Erythrocyte Sedimentation Rate 25 mm/hr (0-20)
[2018-08-19] MEDS: Insulin NPH Human 100 UNITS/ML PEN 32 UNITS SC (10:07)
[2018-08-19] MEDS: Morphine 2 MG/ML Syringe IV ×2 (10:08→18:22)
--- NOTE | 2018-08-19 10:49 | PN_ITS ---
Patient Problems: Active and Suspected Problems Atypical chest pain (Acute) Subjective: Patient is a 42-year-old lady with known history of premature CAD with previous stent placement last stent being 2 weeks prior to her admission at [facility] in [place] who presented with chest pain. Admitted to a monitored bed consultation to cardiology patient seen by Dr. Huerta who did perform left heart catheterization on 08/19/2018 patient recent stent was found to be patent she was however found to have nonobstructive lesions involving the distal RCA and LAD. With patient having persistent pain following her procedure ESR was added by cardiology came back elevated at [address] Huerta decision made to start patient on colchicine for suspected pericarditis Objective: GENERAL: cooperative HEENT: Atraumatic; moist oral mucosa EYES; Anicteric, Normal Conjunctiva NECK; supple, normal thyroid, RESPIRATORY: Diminished to auscultation bilaterally, CARDIOVASCULAR: Regular S1 S2, no audible murmurs GI: soft, non-tender, normoactive bowel sounds, : No Renal angle tenderness; EXTREMITIES: No edema, no clubbing, no cyanosis. MUSCULOSKELETAL: No Joint Tenderness; NEURO: Awake; no lateralizing signs. SKIN: No Rash PSYCH; Normal affect Vitals/I&O's: Vital Signs Temp Pulse Resp BP Pulse Ox 97.9 F 99 12 129/85 H 97 08/19/18 06:00 08/19/18 10:00 08/19/18 10:00 08/19/18 10:00 08/19/18 10:00 Oxygen Flow Rate (L/min) 2 Oxygen Delivery Method Nasal Cannula Weight: 145.5 kg Body Mass Index (BMI) 51.7 Finger Stick Blood Glucose 81 Intake and Output for Last 24 Hours 08/17/18 08/18/18 08/19/18 23:59 23:59 23:59 Intake Total 1319 / 1319 Output Total 600 / 600 Balance 719 / 719 Laboratory Results 08/18/18 10:30: WBC 13.3 H, RBC 4.50, Hgb 14.7, Hct 43.5, MCV 96.7, MCH 32.7 H, MCHC 33.8, RDW 12.6, RDW Differential 43.9, Plt Count 316, MPV 10.7, Immature Gran % (Auto) 0.300, Neut % (Auto) 59.7, Lymph % (Auto) 24.9, [place] % (Auto) 8.3, Eos % (Auto) 6.3 H, Baso % (Auto) 0.5, Absolute Neuts (auto) 7.9 H, Absolute Lymphs (auto) 3.31, Total Counted Not Reportable 08/18/18 10:30: PT 12.0, INR 0.9, APTT 23.9 L 08/18/18 10:30: Sodium 135 L, Potassium 4.4, Chloride 102, Carbon Dioxide 26.0, Anion Gap 7, BUN 12, Creatinine 0.53 L, Estim Creat Clear Calc 126.81, Est GFR (MDRD) Af Amer 160, Est GFR (MDRD) Non-Af 132, BUN/Creatinine Ratio 22.6 H, Glucose 248 H, Calcium 8.4 L, Troponin I 0.041 08/18/18 10:30: B-Natriuretic Peptide 29.7 08/18/18 14:05: Troponin I 0.199 H 08/18/18 17:30: Troponin I 0.314 H 08/18/18 17:49: POC Glucose 373 H 08/18/18 21:50: POC Glucose 289 H 08/19/18 05:10: Urine Test Negative 08/19/18 05:10: Urine Color Yellow, Urine Clarity Sl. Cloudy, Urine pH 6.0, Ur Specific [place] 1.020, Urine Protein Negative, Urine Glucose (UA) 1000 H, Urine Ketones Negative, Urine Occult Blood Negative, Urine Nitrite Negative, Urine Bilirubin Negative, Urine Urobilinogen Normal, Ur Leukocyte Esterase Negative, Urine RBC 0 SEEN, Urine WBC 0-5 SEEN, Ur Squamous Epith Cells 5-10 SEEN, Amorphous Sediment 1+, Urine Bacteria RARE, Urine Mucus 0 SEEN 08/19/18 05:15: WBC 10.8, RBC 3.97 L, Hgb 13.2, Hct 38.8, MCV 97.7, MCH 33.2 H, MCHC 34.0, RDW 12.4, RDW Differential 43.2, Plt Count 298, MPV 10.2, Immature Gran % (Auto) 0.400, Neut % (Auto) 52.0, Lymph % (Auto) 30.9, [place] % (Auto) 9.9, Eos % (Auto) 6.0 H, Baso % (Auto) 0.8, Absolute Neuts (auto) 5.6, Absolute Lymphs (auto) 3.34, Total Counted Not Reportable 08/19/18 05:15: Sodium 138, Potassium 5.0, Chloride 103, Carbon Dioxide 27.0, Anion Gap 8, BUN 12, Creatinine 0.57, Estim Creat Clear Calc 117.91, Est GFR (MDRD) Af Amer 149, Est GFR (MDRD) Non-Af 123, BUN/Creatinine Ratio 21.2 H, Glucose 349 H, Calcium 8.2 L, Triglycerides 96, Cholesterol 171, LDL Cholesterol 76, VLDL Cholesterol 19, HDL Cholesterol 76, TSH 57.30 H 08/19/18 05:15: Hemoglobin A1c 9.5 H 08/19/18 05:15: PT 12.2, INR 0.9, APTT 25.8 08/19/18 05:15: ESR 25 H 08/19/18 06:58: POC Glucose 407 H Current Medications Albuterol Sulfate (Ventolin Aerosols) 2.5 mg INHALATION Q4H PRN PRN Reason: Wheezing Last Admin: 08/19/18 07:19 Dose: 2.5 mg Alprazolam (Xanax) 1 mg PO QHS [facility] Last Admin: 08/18/18 23:45 Dose: 1 mg Aspirin (Aspirin, Baby) 81 mg PO DAILY@0800 [facility] Last Admin: 08/19/18 05:45 Dose: 81 mg Atorvastatin Calcium (Lipitor) 80 mg PO QHS [facility] Last Admin: 08/18/18 21:42 Dose: 80 mg Carvedilol (Coreg) 25 mg PO BID [facility] Clopidogrel Bisulfate (Plavix) 75 mg PO DAILY [facility] Last Admin: 08/19/18 05:44 Dose: 75 mg Cyclobenzaprine HCl (Flexeril) 10 mg PO TID PRN PRN PRN Reason: MUSCLE SPASM Dextrose (D50w Syringe) 0 gm IV X1 PRN; Protocol PRN Reason: Hypoglycemia Glucagon () 1 mg IM .X1 PRN PRN Reason: Hypoglycemia Heparin Sodium (Beef Lung) (Heparin 500 Unit/5 Ml (100/Ml)) 500 unit IV UD PRN PRN Reason: HEPARIN FLUSH Heparin Sodium (Porcine) (Heparin Na) 5,000 unit SC Q8 [facility] Last Admin: 08/19/18 05:43 Dose: Not Given Hydralazine HCl (Apresoline Iv) 10 mg IV Q4H PRN PRN PRN Reason: SBP>180 mmhg Nitroglycerin/Dextrose 25 mg/ (N/A) 250 mls @ 3 mls/hr IV .[id number] [facility] Last Admin: 08/18/18 15:11 Dose: 3 mls/hr Sodium Chloride () 1,000 mls @ 50 mls/hr IV .Q20H [facility] Last Admin: 08/18/18 18:31 Dose: 50 mls/hr Sodium Chloride () 1,000 mls @ 15 mls/hr IV .Q48H [facility] Last Admin: 08/19/18 08:08 Dose: Not Given Insulin Human Lispro (Humalog Kwikpen (Bk)) 26 unit SC 0800,1200,1700 [facility] Last Admin: 08/19/18 08:08 Dose: Not Given Insulin Human Lispro (Humalog Kwikpen (Bkc)) 0 unit SQ ACHS [facility]; Protocol Last Admin: 08/19/18 08:08 Dose: Not Given Insulin Human NPH (Humulin N ([facility])) 32 units SC BIDAC [facility] Last Admin: 08/19/18 10:07 Dose: 32 u Isosorbide Mononitrate (Imdur) 30 mg PO DAILY [facility] Labetalol HCl (Trandate) 5 mg IV X1 PRN PRN Reason: SBP > 160 PRIOR TO SHEATH PULL Levothyroxine Sodium (Synthroid) 100 mcg PO DAILY@0600 [facility] Last Admin: 08/19/18 05:44 Dose: 100 mcg Levothyroxine Sodium (Synthroid) 125 mcg PO DAILY@0600 [facility] Last Admin: 08/19/18 05:44 Dose: 125 mcg Lisinopril (Zestril) 40 mg PO DAILY [facility] Last Admin: 08/19/18 05:45 Dose: 40 mg Morphine Sulfate () 2 - 4 mg IV Q4H PRN PRN PRN Reason: SEVERE PAIN (6-10/10) Last Admin: 08/19/18 10:08 Dose: 4 mg Morphine Sulfate () 2 - 4 mg IV Q4H PRN PRN PRN Reason: SEVERE PAIN (6-10/10) Last Admin: 08/19/18 05:42 Dose: 4 mg Ondansetron HCl (Zofran Odt) 4 mg PO Q8H PRN PRN PRN Reason: NAUSEA Last Admin: 08/18/18 18:47 Dose: 4 mg Pantoprazole Sodium (Protonix) 40 mg PO DAILY [facility] Last Admin: 08/18/18 18:51 Dose: 40 mg Sodium Chloride () 5 - 15 ml IV UD PRN PRN Reason: SALINE FLUSH Last Admin: 08/19/18 10:08 Dose: 10 ml Venlafaxine HCl (Effexor Xr) 150 mg PO DAILY [facility] Last Admin: 08/18/18 18:48 Dose: 150 mg Medical Necessity - Tobacco Use Smoking Status: Current every day smoker Tobacco Use: Cigarettes Assessment/Plan All Active Problems Atypical chest pain (Acute) Chest pain (Resolved) DKA (diabetic ketoacidosis) (Resolved) Acute coronary syndrome (Ruled-out) Patient is a 42-year-old lady with known history of premature CAD with previous stent placement last stent being 2 weeks prior to her admission at [facility] in [place] who presented with chest pain. Admitted to a monitored bed consultation to cardiology patient seen by Dr. Huerta who did perform left heart catheterization on 08/19/2018 patient recent stent was found to be patent she was however found to have nonobstructive lesions involving the distal RCA and LAD. 1. Atypical chest pain: Admitted to a monitored bed consultation to cardiology patient seen by Dr. Huerta who did perform left heart catheterization on 08/19/2018 patient recent stent was found to be patent she was however found to have nonobstructive lesions involving the distal RCA and LAD. ESR ordered came back elevated patient subsequently started on colchicine for suspected pericarditis 2. Morbid obesity with BMI of 51.8 weight loss advised 3. Diabetes mellitus type 2 controlled with hemoglobin A1c of 9.5. Did continue patient home medications dose adjusted as needed. Consultation was placed to dietitian 4. Hypothyroidism patient is on high-dose levothyroxine her TSH still remains elevated did discuss with patient about being referred to endocrinology following her discharge 5. Hypertension-blood pressure control remains labile meds adjusted by cardiology 6. Dyslipidemia-patient is on statin therapy, continued at home dose 7. History of previous DVT involving the upper extremity with questionable history of factor V Leyden deficiency 8. DVT prophylaxis SC heparin Code Visit OBSV E&M: 90760 Subsequent observation care L3
[2018-08-19] MEDS: Isosorbide Mononitrate 30 MG Tablet PO (11:14)
[2018-08-19] MEDS: Pantoprazole Sodium 40 MG Tablet PO (11:14)
[2018-08-19] MEDS: Carvedilol 25 MG Tablet PO ×2 (11:14→21:55)
[2018-08-19] MEDS: Venlafaxine XR 150 MG Capsule PO (11:14)
[2018-08-19] MEDS: Insulin Lispro 100 UNIT/ML INSULN.PEN 26 UNIT SC (13:05)
[2018-08-19] MEDS: Insulin Lispro 100 UNIT/ML INSULN.PEN SQ ×2 (13:06→17:23)
[2018-08-19 13:11] LABS: Bedside Glucose 495 mg/dL (70-110)
--- NOTE | 2018-08-19 13:24 | CASEMGMT ---
RUDI NUNEZ assessment: Face to Face with patient for initial transition planning/care coordination assessment. RUDI NUNEZ introduced self and role at [facility], pt voices understanding and consents to assessment at this time. Pt is lying in bed in no distress at this time and falls back to sleep frequently during assessment, pt does awaken to verbal stimuli. Pt is A/Ox4 at this time and answers all questions appropriately at this time. Care providers, pharmacy, and demographics verified at this time. PCP: Mateo Specialists: Andreina cardio at [facility] Pharmacy: [facility] Insurance: [facility] A/B, [facility] Prescription Benefit: Yes Living Will/HPOA: Pt states does not have LW/HPOA and declines info at this time. LNOK: Israel Cunningham, Living Arrangements: Pt states lives with in 1 story apt and states no concerns at home at this time. Pt is normally independent with ADL's. Transportation: Pt states drives and states no transportation concerns at this time. DME/HHC: Pt states no current DME or need for any further DME at this time. Pt states did have [facility] out of [place] s/p a surgery in the past but has never been to a SNF. Pt states no concerns with going home at time of discharge. Pt states is disabled. Pt states smokes 1/2pk/day and does not drink ETOH. Pt states no further concerns/needs at this time. CM to follow for any further discharge planning/needs. Advised pt to ask for CM if any further questions/concerns/needs arise, voices understanding. Plan: [place] RUDI NUNEZ
--- NOTE | 2018-08-19 14:00 | NURSING ---
Bed rest complete, ambulated patient, tolerated well, dressing c/d/i
[2018-08-19] MEDS: Insulin NPH Human 100 UNITS/ML PEN 50 UNITS SC (17:23)
[2018-08-19] MEDS: Insulin Lispro 100 UNIT/ML INSULN.PEN 30 UNIT SC (17:23)
[2018-08-19] MEDS: 0.9% Normal Saline 1,000 ML 50 ML IV (17:24)
[2018-08-19 17:30] LABS: Bedside Glucose 264 mg/dL (70-110)
[2018-08-19] MEDS: ALPRAZolam 0.5 MG Tablet 1 MG PO (21:46)
[2018-08-19] MEDS: Heparin Injection (Vial) 5,000 UNIT/ML VIAL 5000 UNIT SC (21:49)
[2018-08-19] MEDS: Atorvastatin Calcium 80 MG Tablet PO (21:55)
[2018-08-19 22:01] LABS: Bedside Glucose 65 mg/dL (70-110)
[2018-08-19 23:36] LABS: Bedside Glucose 70 mg/dL (70-110)
[2018-08-20] MEDS: Morphine 4 MG/ML Syringe IV ×2 (03:49→09:35)
[2018-08-20] MEDS: 0.9% NaCl Peripheral Flush Adult/Peds IV ×4 (03:50→09:35)
[2018-08-20 04:00] VITALS: BP 117/58; PULSE 89; RESP 18; TEMP 36.7; O2SAT 92
[2018-08-20 04:27] VITALS: PULSE 89
[2018-08-20] MEDS: Heparin Injection (Vial) 5,000 UNIT/ML VIAL 5000 UNIT SC (05:51)
[2018-08-20] MEDS: Levothyroxine 100 MCG Tablet PO (05:51)
[2018-08-20] MEDS: Levothyroxine 125 MCG Tablet PO (05:51)
[2018-08-20 06:54] VITALS: PULSE 99
[2018-08-20 07:03] VITALS: O2SAT 92
[2018-08-20 07:06] LABS: Bedside Glucose 319 mg/dL (70-110)
[2018-08-20 09:32] VITALS: BP 141/95; PULSE 105; RESP 18; TEMP 36.6; O2SAT 96
[2018-08-20] MEDS: Clopidogrel Bisulfate 75 MG Tablet PO (09:40)
[2018-08-20] MEDS: Aspirin 81 MG TAB.CHEW PO (09:40)
[2018-08-20] MEDS: Pantoprazole Sodium 40 MG Tablet PO (09:40)
[2018-08-20] MEDS: Isosorbide Mononitrate 30 MG Tablet PO (09:40)
[2018-08-20] MEDS: Lisinopril 40 MG Tablet PO (09:40)
[2018-08-20] MEDS: Carvedilol 25 MG Tablet PO (09:40)
[2018-08-20] MEDS: Insulin Lispro 100 UNIT/ML INSULN.PEN 30 UNIT SC (09:42)
[2018-08-20] MEDS: Insulin Lispro 100 UNIT/ML INSULN.PEN SQ (09:43)
[2018-08-20] MEDS: Insulin NPH Human 100 UNITS/ML PEN 50 UNITS SC (09:44)
[2018-08-20 09:56] LABS: Bedside Glucose 363 mg/dL (70-110)
[2018-08-20] MEDS: Venlafaxine XR 150 MG Capsule PO (10:00)
[2018-08-20 10:05] VITALS: PULSE 98; RESP 20
[2018-08-20] MEDS: Albuterol 2.5 MG/3 ML VIAL.NEB. INHALATION (10:05)
--- NOTE | 2018-08-20 11:03 | DCINST_ITS ---
- Discharge Diagnoses Current Active Problems: Current Active and Chronic Problems History of left heart catheterization (Chronic 08/19/18) Non obstructive coronary arteries; Widely patent recently placed DIAG and distal RCA stents. Non obstructive mid LAD just distal to DIAG branch as well as distal RCA. Pt's symptoms are atypical for angina and degree of chest pain is out of proportion to CAD found. Would recommend maximal medical therapy, check ESR, and endocrine consult for DM2 and hypothyroidism. per DJN@ [facility] Atypical chest pain (Acute) You will use the following diet at home:: Calorie/Carbohydrate Controlled (specify 1200, 1400, etc) - 1800, Cardiac Your food should be the consistency of: Regular Discharge Activity: Return to Normal Activity, May not drive while taking narcotic pain medications. Allergies/Adverse Reactions: Allergies No Known Allergies Allergy (Verified 04/27/18 11:00) Medications to take at Discharge Aspirin [Aspirin, Baby] 81 mg PO DAILY@0800 06/11/15 Clopidogrel Bisulfate [Plavix] 75 mg PO DAILY 06/11/15 Levothyroxine [Synthroid] 225 mcg PO DAILY 06/11/15 Lisinopril [Zestril] 40 mg PO DAILY 06/11/15 Albuterol Inhaler [Ventolin Hfa] 1 - 2 puff INHALATION Q4H PRN PRN #1 inhaler 10/15/15 Pantoprazole Sodium [Protonix] 40 mg PO DAILY 09/23/16 Cyclobenzaprine [Flexeril] 10 mg PO TID PRN PRN #14 tablet 01/09/18 Ondansetron [Zofran Odt] 4 mg PO Q8H PRN PRN #10 tablet 03/07/18 ALPRAZolam [Xanax] 1 mg PO QHS 08/18/18 Naproxen 500 mg PO BID 08/18/18 Venlafaxine XR [Effexor Xr] 150 mg PO DAILY 08/18/18 Albuterol Aerosols [Ventolin Aerosols] 2.5 mg INHALATION Q4H PRN #120 vial.neb. 08/20/18 Atorvastatin Calcium [Lipitor] 80 mg PO QHS #60 tablet 08/20/18 Budesonide [Pulmicort] 0.5 mg IH BID #120 ampul.neb 08/20/18 Carvedilol [Coreg (Beta Monisha)] 25 mg PO BID #120 tablet 08/20/18 Colchicine 0.6 mg PO BID #60 tablet 08/20/18 Guaifenesin [Mucinex] 1,200 mg PO BID #14 tbmp.12hr 08/20/18 Insulin NPH Human Isophane [Novolin N] 50 units SC BID #0 08/20/18 Insulin Regular, Human [Novolin R] 30 units SC TIDCM #0 08/20/18 Isosorbide Mononitrate [Imdur] 30 mg PO DAILY #60 tablet 08/20/18 Oxycodone [Oxyir] 5 mg PO Q4H PRN PRN 3 Days #18 tablet 08/20/18 The following prescriptions were given: Albuterol Aerosols [Ventolin Aerosols] 2.5 mg INHALATION Q4H PRN #120 vial.neb. PRN Reason: Wheezing Atorvastatin Calcium [Lipitor] 80 mg PO QHS #60 tablet Budesonide [Pulmicort] 0.5 mg IH BID #120 ampul.neb Carvedilol [Coreg (Beta Monisha)] 25 mg PO BID #120 tablet Colchicine 0.6 mg PO BID #60 tablet Guaifenesin [Mucinex] 1,200 mg PO BID #14 tbmp.12hr Isosorbide Mononitrate [Imdur] 30 mg PO DAILY #60 tablet Oxycodone [Oxyir] 5 mg PO Q4H PRN PRN 3 Days #18 tablet PRN Reason: Severe Pain (6-10/10) Primary Care Physician: Carlotta Galindo MD [Primary Care Provider] - Please follow up with your Primary Care Physician in: in 5-7 days Test Results: Test results from this visit will be discussed in further detail at your follow- up appointment, if applicable. Proposed Discharge Date: 08/20/18
--- NOTE | 2018-08-20 11:06 | DS.PCM_ITS ---
Discharge Date and Diagnosis - Problem List Patient Problems: Active and Suspected Problems Pericarditis (Acute) Atypical chest pain (Acute) Date of Admission: 08/18/18 Date of Discharge: 08/20/18 - Primary Discharge Diagnosis Active and Suspected Problems Pericarditis (Acute) Atypical chest pain (Acute) - Secondary Discharge Diagnosis Chronic Problems History of left heart catheterization (Chronic 08/19/18) Non obstructive coronary arteries; Widely patent recently placed DIAG and distal RCA stents. Non obstructive mid LAD just distal to DIAG branch as well as distal RCA. Pt's symptoms are atypical for angina and degree of chest pain is out of proportion to CAD found. Would recommend maximal medical therapy, check ESR, and endocrine consult for DM2 and hypothyroidism. per DJN@ [facility] Sleep-disordered breathing (Chronic) Essential hypertension (Chronic) Coronary artery disease (Chronic) Hypercholesterolemia (Chronic) Tobacco use (Chronic) Morbid obesity (Chronic) Hypothyroidism (Chronic) GERD (gastroesophageal reflux disease) (Chronic) Asthma (Chronic) DM (diabetes mellitus), type 1 (Chronic) Hospital Course and Treatment Imaging Results: Clinical Impression(s) from Imaging Studies Chest X-Ray 08/18/18 10:35 IMPRESSION: No radiographic evidence of acute cardiopulmonary disease. at 1212 Reported and signed by: Juan Porter MD Electronically Signed: Juan Porter, at 12:11 EST Tel , Service support , Operations: None Summary of Care Provided: Patient is a 42-year-old lady with known history of premature CAD with previous stent placement last stent being 2 weeks prior to her admission at [facility] in [place] who presented with chest pain. Admitted to a monitored bed consultation to cardiology patient seen by Dr. Huerta who did perform left heart catheterization on 08/19/2018 patient recent stent was found to be patent she was however found to have nonobstructive lesions involving the distal RCA and LAD. 1. Atypical chest pain tender to suspected pericarditis: Admitted to a monitored bed consultation to cardiology patient seen by Dr. Huerta who did perform left heart catheterization on 08/19/2018 patient recent stent was found to be patent she was however found to have nonobstructive lesions involving the distal RCA and LAD. ESR ordered came back elevated patient subsequently started on colchicine for suspected pericarditis 2. Morbid obesity with BMI of 51.8 weight loss advised 3. Diabetes mellitus type 2 controlled with hemoglobin A1c of 9.5. Did continue patient home medications dose adjusted as needed. Consultation was placed to dietitian 4. Hypothyroidism patient is on high-dose levothyroxine her TSH still remains elevated did discuss with patient about being referred to endocrinology following her discharge 5. Hypertension-blood pressure control remains labile meds adjusted by cardiology 6. Dyslipidemia-patient is on statin therapy, continued at home dose 7. History of previous DVT involving the upper extremity with questionable history of factor V Leyden deficiency 8. DVT prophylaxis SC heparin Patient Problems: Active and Suspected Problems Pericarditis (Acute) Atypical chest pain (Acute) Objective: GENERAL: cooperative HEENT: Atraumatic; moist oral mucosa EYES; Anicteric, Normal Conjunctiva NECK; supple, normal thyroid, RESPIRATORY: Diminished to auscultation bilaterally, CARDIOVASCULAR: Regular S1 S2, no audible murmurs GI: soft, non-tender, normoactive bowel sounds, : No Renal angle tenderness; EXTREMITIES: No edema, no clubbing, no cyanosis. MUSCULOSKELETAL: No Joint Tenderness; NEURO: Awake; no lateralizing signs. SKIN: No Rash PSYCH; Normal affect - Physical Exam Vital Signs Temp Pulse Resp BP Pulse Ox 97.8 F 98 20 H 141/95 H 96 08/20/18 09:32 08/20/18 10:05 08/20/18 10:05 08/20/18 09:32 08/20/18 09:32 Oxygen Flow Rate (L/min) 2 Oxygen Delivery Method Room Air Weight: 145.5 kg Body Mass Index (BMI) 51.7 Finger Stick Blood Glucose 81 Intake and Output for Last 24 Hours 08/18/18 08/19/18 08/20/18 23:59 23:59 23:59 Intake Total 1319 / 1319 2583.3 / 2583.3 267 / 267 Output Total 600 / 600 1300 / 1300 Balance 719 / 719 1283.3 / 1283.3 267 / 267 POC Glucose 08/20/18 08/20/18 08/19/18 09:30 06:53 23:07 POC Glucose 363 H 319 H 70 08/19/18 08/19/18 08/19/18 21:51 17:21 13:04 POC Glucose 65 L 264 H 495 H* Discharge Activity: Return to Normal Activity, May not drive while taking narcotic pain medications. Home Medications: Medications to take at Discharge Aspirin [Aspirin, Baby] 81 mg PO DAILY@0800 06/11/15 Clopidogrel Bisulfate [Plavix] 75 mg PO DAILY 06/11/15 Levothyroxine [Synthroid] 225 mcg PO DAILY 06/11/15 Lisinopril [Zestril] 40 mg PO DAILY 06/11/15 Albuterol Inhaler [Ventolin Hfa] 1 - 2 puff INHALATION Q4H PRN PRN #1 inhaler 10/15/15 Pantoprazole Sodium [Protonix] 40 mg PO DAILY 09/23/16 Cyclobenzaprine [Flexeril] 10 mg PO TID PRN PRN #14 tablet 01/09/18 Ondansetron [Zofran Odt] 4 mg PO Q8H PRN PRN #10 tablet 03/07/18 ALPRAZolam [Xanax] 1 mg PO QHS 08/18/18 Naproxen 500 mg PO BID 08/18/18 Venlafaxine XR [Effexor Xr] 150 mg PO DAILY 08/18/18 Albuterol Aerosols [Ventolin Aerosols] 2.5 mg INHALATION Q4H PRN #120 vial.neb. 08/20/18 Atorvastatin Calcium [Lipitor] 80 mg PO QHS #60 tablet 08/20/18 Budesonide [Pulmicort] 0.5 mg IH BID #120 ampul.neb 08/20/18 Carvedilol [Coreg (Beta Monisha)] 25 mg PO BID #120 tablet 08/20/18 Colchicine 0.6 mg PO BID #60 tablet 08/20/18 Guaifenesin [Mucinex] 1,200 mg PO BID #14 tbmp.12hr 08/20/18 Insulin NPH Human Isophane [Novolin N] 50 units SC BID #0 08/20/18 Insulin Regular, Human [Novolin R] 30 units SC TIDCM #0 08/20/18 Isosorbide Mononitrate [Imdur] 30 mg PO DAILY #60 tablet 08/20/18 Oxycodone [Oxyir] 5 mg PO Q4H PRN PRN 3 Days #18 tablet 08/20/18 Following Prescrptions Were Given to Patient: Albuterol Aerosols [Ventolin Aerosols] 2.5 mg INHALATION Q4H PRN #120 vial.neb. PRN Reason: Wheezing Atorvastatin Calcium [Lipitor] 80 mg PO QHS #60 tablet Budesonide [Pulmicort] 0.5 mg IH BID #120 ampul.neb Carvedilol [Coreg (Beta Monisha)] 25 mg PO BID #120 tablet Colchicine 0.6 mg PO BID #60 tablet Guaifenesin [Mucinex] 1,200 mg PO BID #14 tbmp.12hr Isosorbide Mononitrate [Imdur] 30 mg PO DAILY #60 tablet Oxycodone [Oxyir] 5 mg PO Q4H PRN PRN 3 Days #18 tablet PRN Reason: Severe Pain (-04/14) Primary Care Physician: Carlotta Galindo MD [Primary Care Provider] - Please follow up with your Primary Care Physician in: in 5-7 days Disposition: Home Minutes spent on discharge:: 50 Patient Condition:: Stable Medical Necessity - Tobacco Use Smoking Status: Current every day smoker Tobacco Use: Cigarettes Meaningful Use Info Meaningful Use Diagnoses (Choose all that apply): None applicable Code Visit Inpatient E&M: 85005 Disch Hosp
--- NOTE | 2018-08-20 11:25 | CASEMGMT ---
Per Dr. Worley, pt would like a nebulizer at home. Pt states no preference on company. Ref[place] [facility] [place] this time and call to John at [facility] and he states that order is in the process and that nebulizer will be shipped to pt's home. RUDI Patel, aware and pt is ok for discharge at this time. Vicki GRIJALVA CM
[2018-08-20] MEDS: oxyCODONE 5 MG Tablet PO (11:47)
--- NOTE | 2018-08-23 15:35 | CASEMGMT ---
RUDI HAYS Phone call DC Date: 08/20/18 DC Disposition: Home LACE/STRATA: 16/10 Called patient cell phone, Introduced role of CM to patient via phone. States she made an appointment with her PCP, confirmed received her nebulizer and prescriptions. Denies any questions/concerns with her aftercare instructions or medications. Felecia Queen RNCM
== END 2018-08-20 12:06 | disposition home or self-care (01) | DRG 287 ==
LOC: ED 13:44 → PCU 13:48
PROVIDERS: Internal Medicine Cardiovascular Disease; Admitting Provider Internal Medicine; Emergency Provider Emergency Medicine; Family Provider Internal Medicine; PCP Internal Medicine; Referring Provider Internal Medicine; Visit Provider Internal Medicine
DX: I31.9 Disease of pericardium, unspecified (principal); Z68.43 Body mass index [BMI] 50.0-59.9, adult; T82.858A Stenosis of other vascular prosthetic devices, implants and grafts, initial encounter; I10 Essential (primary) hypertension; E66.01 Morbid (severe) obesity due to excess calories; E78.5 Hyperlipidemia, unspecified; I25.10 Atherosclerotic heart disease of native coronary artery without angina pectoris; F17.210 Nicotine dependence, cigarettes, uncomplicated; E11.65 Type 2 diabetes mellitus with hyperglycemia; K21.9 Gastro-esophageal reflux disease without esophagitis; E03.9 Hypothyroidism, unspecified; J45.909 Unspecified asthma, uncomplicated; Z95.5 Presence of coronary angioplasty implant and graft; Z79.4 Long term (current) use of insulin; Z79.02 Long term (current) use of antithrombotics/antiplatelets; Z79.899 Other long term (current) drug therapy; Z79.82 Long term (current) use of aspirin; Z86.718 Personal history of other venous thrombosis and embolism
CPT/HCPCS: 36415; 71046; 80048; 80061; 81001; 81025; 82962; 83036; 83880; 84443; 84484; 85025; 85610; 85652; 85730; 93005; 93306; 93458; 94640; 97802; 97803; 99152; 99153; 99284; J7030; Q9957; Q9967; A4216; C1769; C1894; C8929

== ENCOUNTER → 2018-09-08 22:28 | Outpatient (CLI) | payer MEDICARE, MEDICAID, SELFPAY ==
[2018-08-18 15:39] VITALS: BMI 51.7
== END ==
PROVIDERS: Family Provider Internal Medicine; PCP Internal Medicine
DX: G47.10 Hypersomnia, unspecified (principal); J44.9 Chronic obstructive pulmonary disease, unspecified; E66.9 Obesity, unspecified; R06.83 Snoring
CPT/HCPCS: 95810

== ENCOUNTER 2018-10-11 19:20 | Emergency (ER) | payer MEDICARE, MEDICAID, SELFPAY ==
[2018-08-18 15:39] VITALS: BMI 51.7
[2018-10-11 19:21] VITALS: BP 174/103; PULSE 98; RESP 14; TEMP 36.6; O2SAT 97; BMI 53.1
[2018-10-11] MEDS: Naproxen 250 MG Tablet 500 MG PO (21:10)
[2018-10-11] MEDS: HYDROcodone Bitartrate/Apap 5/325 Tablet PO (21:10)
--- NOTE | 2018-10-11 22:06 | ED.RN ---
PT CALLED OUT WANTING AN UPDATE. SHE NEEDS TO LEAVE SOON SO HER CAN GO TO WORK. UPDATED DR. ALANIS. UPDATED PT THAT DR. ALANIS IS AWARE AND HE WILL BE AT BEDSIDE WHEN AVAILABLE. PT STATES THAT SHE HAS BEEN HERE FOR TWO HOURS AND DR SAID HE WOULD BE RIGHT BACK. EMOTIONAL SUPPORT GIVEN.
--- NOTE | 2018-10-11 22:18 | ED.VIS.GEN ---
History of Present Illness Chief Complaint: Dental Detail of Chief Complaint: Pain status post dental extraction 2-3 days ago Informant: Patient Onset: Days - 2-3 days Context: Sudden Onset Timing: Continuous Quality: Pain Location: Status post extraction right upper molar Current Severity: Moderate Maximum Severity: Severe Worsened by: Breathing, cold or hot liquid Relieved by: Nothing Associated Symptoms: Nothing Narrative: Patient is a middle-aged woman who had her right upper molar extracted 3 days ago. She presents with severe pain. She did not smoke for the first 24-36 hours. She has smoked since. States she has not had any drink through a straw. She states she is presently on anti-inflammatory with no improvement. She called the dentist and they are not able to see her for another 2-3 days. She denies fever, chills night sweats. She denies difficulty opening or closing her mouth completely she denies history of rheumatic fever, murmur, SBE, or being immune suppressed. Prior similar symptoms: No Recent Illness/Hospitalization: Yes - Dental extraction - Past Medical History (1) Atherosclerotic heart disease of [place] coronary artery without angina pectoris Status: Acute Comment: Non obstructive coronary arteries; Widely patent recently placed DIAG and distal RCA stents. Non obstructive mid LAD just distal to DIAG branch as well as distal RCA. Pt's symptoms are atypical for angina and degree of chest pain is out of proportion to CAD found per cath 08/19/[address] Huerta (2) Pericarditis Status: Acute (3) Asthma Status: Chronic (4) Essential hypertension Status: Chronic (5) GERD (gastroesophageal reflux disease) Status: Chronic (6) Hypercholesterolemia Status: Chronic (7) Hypothyroidism Status: Chronic (8) Morbid obesity Status: Chronic (9) Sleep-disordered breathing Status: Chronic (10) Tobacco use Status: Chronic Past Medical History - Allergies and Home Meds Allergies/Adverse Reactions: Allergies metformin [From Glucophage] Allergy (Intermediate, Verified 10/11/18 19:21) Unknown Primary Care Physician: Carlotta Galindo MD [Primary Care Provider] - Prior records reviewed: Yes Surgical History: angioplasty - PTCA ?4 at [facility], cholecystectomy, - - 4 stents in the past, 2 back surgeries with hardware, carpal tunnel, tonsils, section, I&D of breast abscesses, cervical conization Lives: Spouse/ Significant Other Smoking Status: Current every day smoker Alcohol: None - Family History Maternal Family History: Family History (Last Updated 09/10/18 @ 16:59 by Ladonna Stalh) Mother Cancer Father Hypertension COPD (chronic obstructive pulmonary disease) Daughter Factor V deficiency Grandmother Cancer COPD (chronic obstructive pulmonary disease) Family History: Reports: - - htn, dm Paternal Family History: Family History (Last Updated 09/10/18 @ 16:59 by Ladonna Stahl) Mother Cancer Father Hypertension COPD (chronic obstructive pulmonary disease) Daughter Factor V deficiency Grandmother Cancer COPD (chronic obstructive pulmonary disease) Family History: Reports: - - htn, diabetes Review of Systems General: Denies: Chills, Fever, Malaise, Subjective, Sweats Eyes: Denies: Visual changes - bilaterally, Blurred Vision - bilaterally, Diplopia ENT: Denies: Bilateral ear pain, Rhinorrhea, Sore throat Cardiovascular: Denies: Chest pain, Palpitations, Heart racing Respiratory: Denies: Dyspnea Gastrointestinal: Denies: Nausea, Vomiting Skin: Denies: Rash Neurological: Denies: Headache, Weakness, Parasthesia, Numbness Hematologic: Denies: Easy bruising, Easy bleeding Physical Exam Vital Signs/Narrative: Vital Signs Temp Pulse Resp BP Pulse Ox 10/11/18 19:21 97.8 F 98 14 174/103 H 97 Inital Vital Signs reviewed: Yes General: Well nourished, Well developed, Obese - BMI is 53.2, No Acute Distress Head: Normocephalic, Atraumatic Eyes: Perrl, EOMI. Negative for: Pale conjunctiva, Scleral icterus ENT: Moist mucous membranes, No rhinorrhea, TM's clear, - - There is no TMJ tenderness. There is no evidence of malocclusion. There is no trismus. Extraction site noted. Stitches have dissolved or fallen out. There is no preauricular lymphadenopathy. Neck: Supple, Nontender, No lymphadenopathy, No JVD Cardiovascular: Regular rate, Regular rhythm, No murmurs, Normal S1, Normal S2 Respiratory: No distress, CTA bilaterally, Chest nontender Skin: Normal color, No rash Neurological: Alert, Oriented x3, Cranial nerves II-XII grossly intact, Normal Strength, Normal Sensation Psychological: Normal affect, Normal Mood Diagnostic/Tx/Re-eval - Medical Decision Making Patient has dry socket. Will anesthetize by a dental block and treat with dry socket paste. She also was given a prescription for opiate analgesia. She was instructed to contact dentist for follow-up. Procedures Procedure(s): Dental block extraction site right upper second molar ED Disposition - Plan for ED Patient: Disposition: Home or Assisted Living Diagnosis: Dry tooth socket Instructions: ED Socket Dry Prescriptions: Hydrocodone Bitart/Apap 5-325 [[place] 5MG-325MG] 1 tablet PO Q6H PRN PRN 3 Days #10 tablet PRN Reason: Pain Referrals: Carlotta Galindo MD [Primary Care Provider] - Additional Instructions: Follow-up with your dentist as soon as possible. Your prescription was electronically transmitted to [facility]
[2018-10-11 22:36] VITALS: BP 150/90; PULSE 80; RESP 16; O2SAT 100
== END 2018-10-11 22:37 | disposition home or self-care (01) ==
PROVIDERS: Emergency Provider Emergency Medicine; Family Provider Internal Medicine; PCP Internal Medicine
DX: M27.3 Alveolitis of jaws (principal); F17.200 Nicotine dependence, unspecified, uncomplicated; I25.10 Atherosclerotic heart disease of native coronary artery without angina pectoris; I31.9 Disease of pericardium, unspecified; I10 Essential (primary) hypertension; E78.00 Pure hypercholesterolemia, unspecified; E03.9 Hypothyroidism, unspecified; K21.9 Gastro-esophageal reflux disease without esophagitis; J45.909 Unspecified asthma, uncomplicated; E66.01 Morbid (severe) obesity due to excess calories; Z68.43 Body mass index [BMI] 50.0-59.9, adult; Z95.5 Presence of coronary angioplasty implant and graft; Z79.82 Long term (current) use of aspirin; Z79.4 Long term (current) use of insulin; Z79.01 Long term (current) use of anticoagulants; Z79.899 Other long term (current) drug therapy
CPT/HCPCS: 99283

== ENCOUNTER 2018-10-31 17:34 | Emergency (ER) | payer MEDICARE, MEDICAID, SELFPAY ==
[2018-10-31] VITALS (8 sets, daily range): BP systolic 142–179; BP diastolic 95–114; PULSE 91–105; RESP 14–20; TEMP 36.4–37.1; O2SAT 96–99; BMI 51.9
[2018-10-31 18:21] LABS: Bedside Glucose > 500 mg/dL (70-110)
--- NOTE | 2018-10-31 18:24 | RAD_ITS ---
STUDY: X-RAY CHEST REASON FOR EXAM: Female, 43 years old. History stents, smoker TECHNIQUE: Portable chest COMPARISON: 08/18/2018. FINDINGS: There is a new 8 mm right upper lobe pulmonary nodular density. The lungs are clear and expanded. There is no demonstrated pleural abnormality. Normal size heart. Normal mediastinum and larisa. Normal visualized pulmonary arteries. Normal visualized aortic arch and descending thoracic aorta. Normal visualized thoracic spine. Normal visualized ribs, clavicles, and shoulders. There is no demonstrated abnormality of the visualized soft tissue structures of the upper abdomen. RAD/Chest 1 View (Portable) IMPRESSION: There is a new 8 mm right upper lobe likely pulmonary nodule, CT chest follow-up is recommended Electronically Signed: Anil Gibson, at 19:16 EDT Tel , Service support ,
--- NOTE | 2018-10-31 18:25 | EKG12_ITS ---
Test Reason : CP Blood Pressure : / mmHG Vent. Rate : 095 BPM Atrial Rate : 095 BPM P-R Int : 178 ms QRS Dur : 064 ms QT Int : 352 ms P-R-T Axes : 045 006 036 degrees QTc Int : 442 ms Sinus rhythm with occasional Premature ventricular complexes Septal infarct , age undetermined Abnormal ECG Confirmed by TACOS SILVA, LACEY ([id number]), acquisitions editor ODALYS PHILIPPE ([id number]) on 11/02/2018 11:16:34 AM Referred By: CHRISTI Confirmed By:LACEY BALDERRAMA MD
[2018-10-31 18:38] LABS: Bacteria 0 SEEN /hpf (None Seen); Mucous, Urine 0 SEEN /hpf (<or=2+); Red Blood Cells-Urine 0 SEEN /hpf (0-5); White Blood Cells 0 SEEN /hpf (0-5)
[2018-10-31 18:38] LABS: Absolute Lymphocyte Count 2.95 X10^3/ul (0.83-4.51); Absolute Neutrophil Count 6.7 X10^3/uL (2.0-7.7); Basophil# 0.03 X10^3/uL; Basophil% 0.3 % (0-1); Eosinophils% 3.7 % (0-5); Hematocrit 44.3 % (37-47); Hemoglobin 15.4 g/dl (12.0-15.0); Lymphocyte # 2.95 X10^3/ul (4.0); Lymphocyte % 27.5 % (19-41); Mean Corp Hgb Conc 34.8 g/gl (32-36); Mean Corpuscular Hgb 32.6 pg (27.0-32.0); Mean Corpuscular Volume 93.7 fL (81-99); Mean Platelet Vol. 10.8 fl (6.2-12.0); Monocyte# 0.63 X10^3/uL; Monocyte% 5.9 % (0-10); Neutrophil # 6.71 X10^3/uL (2.7-7.7); Neutrophil % 62.4 % (47-70); Platelet Count 289 K/mm3 (150-450); RBC Distribution Width CV 13.2 % (11.6-14.6); RBC Distribution Width SD 45.7 fl (35.1-43.9); Red Blood Count 4.73 M/mm3 (4.2-5.4); White Blood Count 10.7 K/mm3 (4.4-11.0)
[2018-10-31 18:40] LABS: POSITIVE COUNT NO; POSITIVE DIFFERENTIAL NO; POSITIVE MORPHOLOGY NO
[2018-10-31 18:46] LABS: Color, Urine Yellow (Yellow); Glucose, Dipstick 1000 mg/dl (Normal); Leukocyte Esterase-Dipstick Negative /ul (Negative); Nitrite-Dipstick Negative (Negative); Occult Blood-Urine 10 /ul (Negative); Protein-Dipstick Negative (Negative); Specific Gravity, Urine 1.015 (1.002-1.030); Urine Bilirubin Dipstick Negative (Negative); Urine Clarity Clear (Clear); Urine Urobilinogen Normal (Normal)
[2018-10-31] MEDS: 0.9% Normal Saline 1,000 ML 1000 ML IV (18:48)
[2018-10-31 18:51] LABS: Ketone-Dipstick 150 mg/dl (Negative)
[2018-10-31 18:59] LABS: Anion Gap 13 (5-15); BUN 9 mg/dL (7-18); BUN/Creat Ratio 12.6 RATIO (10-20); Calcium,Total 8.4 mg/dL (8.5-10.1); Chloride 98 mmol/L (98-107); Creatinine, Serum 0.71 mg/dL (0.55-1.02); EST Glomerular Filtration Rate 94 mL/min (>60); Est Glom Filt Rate - Afr Amer 114 mL/min (>60); Estimated Creatinine Clearance 93.67 ml/min; Glucose 495 mg/dL (74-106); Potassium 4.5 mmol/L (3.5-5.1); Sodium Level 131 mmol/L (136-145)
[2018-10-31 18:59] LABS: Squamous Epithelial Cells - UA 0-5 SEEN /hpf (5-10)
--- NOTE | 2018-10-31 18:59 | ED.RN ---
DR ALANIS NOTIFIED OF URINE RESULTS AND GLUCOSE RESULTS
--- NOTE | 2018-10-31 19:05 | CPS ---
Dr. Mojica aware blood gas sample is venous. Okay to use this and not obtain arterial.
[2018-10-31 19:16] LABS: Blood Gas Specimen Type VEN; O2 Delivery Device Room Air; SITE R Radial; VBG BASE EXCESS -6 mmol/L (-1.0-3.5); VBG Bicarbonate 20 mmol/L (22-26); VBG Oxygen Content 21 mmol/L (23-33); VBG PO2 30 mmHg (25-40); VBG SO2 51 % (50-70); VBG pCO2 39.4 mmHg (41-51); VBG pH 7.31 (7.32-7.42)
--- NOTE | 2018-10-31 19:23 | ED.RN ---
PATIENT REQUESTED PAIN MEDICATION FOR HER ARMS AND CHEST. DR. ALANIS WAS ASKED BY THIS NURSE AND HE SAID HE WAS NOT GIVING HER ANYTHING AT THIS TIME. PATIENT WAS MADE AWARE AND BLANKET WAS GIVEN AND UPDATE THAT WE ARE WAITING ON HER RESULTS WAS GIVEN.
[2018-10-31 19:29] LABS: Lactic Acid 1.3 mmol/L (0.4-2.0)
[2018-10-31] MEDS: Ondansetron 4 MG/2 ML Vial IV (20:46)
--- NOTE | 2018-10-31 20:53 | ED.RN ---
PATIENT C/O NAUSEA AND HEADACHE. DR. ALANIS MADE AWARE AND VERBAL ORDER FOR ZOFRAN WAS GIVEN AND ORDERED. ZOFRAN GIVEN BY THIS NURSE.
[2018-10-31 20:56] LABS: Bedside Glucose 328 mg/dL (70-110)
--- NOTE | 2018-10-31 21:49 | ED.RN ---
CALLED TO THE ROOM BY THE PATIENT, THE PATIENT IS STILL C/O SOME NAUSEA AND SOME PAIN. DR. ALANIS IS IN ANOTHER ROOM AND I TOLD HER I WOULD REMIND HIM THAT SHE WAS WAITING.
[2018-10-31] MEDS: Insulin Lispro 100 UNIT/ML INSULN.PEN SC (22:58)
[2018-10-31 23:01] LABS: Bedside Glucose 243 mg/dL (70-110)
--- NOTE | 2018-10-31 23:09 | ED.VIS.GEN ---
History of Present Illness Chief Complaint: Chest Pain Detail of Chief Complaint: High blood sugar, left-sided chest pain Informant: Patient Onset: Today Context: Sudden Onset Timing: Continuous Quality: Noncompliant checking blood sugar and medication Location: Left-sided chest pain Current Severity: Mild Maximum Severity: Moderate Worsened by: Breathing and change in position Relieved by: Nothing Associated Symptoms: Blurred vision, polyuria, polydipsia, nocturia and. Dry mouth Narrative: Patient is a middle-age woman with multiple medical problems and noncompliance with her medication. Patient reports he reports blurred vision, thirst, polyuria, nocturia and urgency. She denies dysuria hematuria. She has not checked her blood sugar in some time. She does complain of pleuritic sharp left chest pain. There is no history of PE or DVT. She was recently diagnosed with pericarditis. She has known coronary disease with patent stents documented on catheterization by Dr. Huerta on August 24, 2018. Patient denies leg pain, swelling discoloration. She denies vomiting diarrhea. She denies cough, shortness of breath, dyspnea exertion, orthopnea or PND. Prior similar symptoms: Yes Recent Illness/Hospitalization: Yes - She was seen on October 11 2018 - Past Medical History (1) Atherosclerotic heart disease of [place] coronary artery without angina pectoris Status: Acute Comment: Non obstructive coronary arteries; Widely patent recently placed DIAG and distal RCA stents. Non obstructive mid LAD just distal to DIAG branch as well as distal RCA. Pt's symptoms are atypical for angina and degree of chest pain is out of proportion to CAD found per cath 08/19/[address] Huerta (2) Pericarditis Status: Acute (3) Asthma Status: Chronic (4) DM (diabetes mellitus), type 1 Status: Chronic (5) Essential hypertension Status: Chronic (6) GERD (gastroesophageal reflux disease) Status: Chronic (7) Hypercholesterolemia Status: Chronic (8) Hypothyroidism Status: Chronic (9) Morbid obesity Status: Chronic (10) Sleep-disordered breathing Status: Chronic (11) Tobacco use Status: Chronic Past Medical History - Allergies and Home Meds Allergies/Adverse Reactions: Allergies metformin [From Glucophage] Allergy (Intermediate, Verified 10/31/18 18:28) Unknown Primary Care Physician: Carlotta Galindo MD [Primary Care Provider] - 2 Days Prior records reviewed: Yes Surgical History: angioplasty - PTCA ?4 at [facility], cholecystectomy, - - 4 stents in the past, 2 back surgeries with hardware, carpal tunnel, tonsils, section, I&D of breast abscesses, cervical conization Lives: Alone Smoking Status: Current some day smoker Alcohol: None - Family History Maternal Family History: Family History (Last Updated 09/10/18 @ 16:59 by Ladonna Stahl) Mother Cancer Father Hypertension COPD (chronic obstructive pulmonary disease) Daughter Factor V deficiency Grandmother Cancer COPD (chronic obstructive pulmonary disease) Family History: Reports: - - htn, dm Paternal Family History: Family History (Last Updated 09/10/18 @ 16:59 by Ladonna Stahl) Mother Cancer Father Hypertension COPD (chronic obstructive pulmonary disease) Daughter Factor V deficiency Grandmother Cancer COPD (chronic obstructive pulmonary disease) Family History: Reports: - - htn, diabetes Review of Systems General: Denies: Chills, Fever, Malaise, Subjective, Sweats Eyes: Reports: Blurred Vision - bilaterally. Denies: Visual changes - bilaterally, Diplopia ENT: Denies: Rhinorrhea, Sore throat Cardiovascular: Reports: Chest pain. Denies: Palpitations, Heart racing Respiratory: Reports: Dyspnea, Cough. Denies: Sputum, Dyspnea on exertion, Orthopnea, Paroxysmal nocturnal dyspnea Gastrointestinal: Reports: Nausea. Denies: Abdominal pain, Vomiting, Diarrhea, Melena, Hematochezia Genitourinary: Denies: Dysuria, Hematuria, Frequency Musculoskeletal: Denies: Myalgias, Arthralgias, Neck pain, Back pain, Extremity Pain Skin: Denies: Rash, Abscess, Wounds Neurological: Denies: Headache, Weakness, Numbness Psych: Reports: Depression Hematologic: Denies: Easy bruising, Easy bleeding Allergy: Denies: Uticaria, Swelling of the mouth Physical Exam Vital Signs/Narrative: Vital Signs Temp Pulse Resp BP Pulse Ox 10/31/18 22:53 93 14 144/95 H 96 10/31/18 21:22 98.6 F 91 18 158/114 H 97 10/31/18 20:12 97.6 F L 91 18 142/99 H 98 10/31/18 19:45 98.8 F 91 15 154/99 H 99 10/31/18 19:44 98.8 F 93 16 154/99 H 98 Inital Vital Signs reviewed: Yes General: Well nourished, Well developed, No Acute Distress Head: Normocephalic, Atraumatic Eyes: Perrl, EOMI. Negative for: Pale conjunctiva, Scleral icterus ENT: No rhinorrhea, TM's clear, Dry mucous membranes Neck: Supple, Nontender, No lymphadenopathy, No JVD Cardiovascular: Regular rate, Regular rhythm, No murmurs, Normal S1, Normal S2, - - No friction rub was appreciated Respiratory: No distress, CTA bilaterally, Chest tenderness Abdomen: Soft, Nontender, Nondistended, Normal bowel sounds, No masses Back: Nontender, Normal Inspection Extremities: Nontender, No edema, - - There is no asymmetry, swelling, discoloration, leg vein distention, palpable cords or tenderness along the distribution of the deep venous system. Skin: Normal color, No rash. Negative for: Diaphoresis, Jaundice, Rash Neurological: Alert, Oriented x3, Cranial nerves II-XII grossly intact, Normal Strength, Normal Sensation Psychological: Depressed Diagnostic/Tx/Re-eval Chest X-Ray - ED: Read by Radiologist Impressions Chest X-Ray 10/31/18 18:24 IMPRESSION: There is a new 8 mm right upper lobe likely pulmonary nodule, CT chest follow-up is recommended Electronically Signed: Anil Gibson, at 19:16 EDT Tel , Service support , 10/31/18 18:24 Chest 1 View (Portable) [RAD] Stat Laboratory Results 10/31/18 10/31/18 10/31/18 18:10 18:10 18:16 WBC 10.7 RBC 4.73 Hgb 15.4 H Hct 44.3 MCV 93.7 MCH 32.6 H MCHC 34.8 RDW 13.2 RDW Differential 45.7 H Plt Count 289 MPV 10.8 Immature Gran % (Auto) 0.200 Neut % (Auto) 62.4 Lymph % (Auto) 27.5 Gilliam % (Auto) 5.9 Eos % (Auto) 3.7 Baso % (Auto) 0.3 Absolute Neuts (auto) 6.7 Absolute Lymphs (auto) 2.95 Total Counted Not Reportable Specimen Type Sample Site VBG pH VBG pO2 VBG O2 Sat (Calc) VBG O2 Content VBG Base Excess POC Mix VBG pCO2 Pt Tmp O2 Delivery Device Blood Gas Notified Whom Sodium 131 L Potassium 4.5 Chloride 98 Carbon Dioxide 20.0 L Anion Gap 13 BUN 9 Creatinine 0.71 Estim Creat Clear Calc 93.67 Est GFR (MDRD) Af Amer 114 Est GFR (MDRD) Non-Af 94 BUN/Creatinine Ratio 12.6 Glucose 495 H* Lactic Acid Calcium 8.4 L Troponin I < 0.015 Urine Color Urine Clarity Urine pH Ur Specific [place] Urine Protein Urine Glucose (UA) Urine Ketones Urine Occult Blood Urine Nitrite Urine Bilirubin Urine Urobilinogen Ur Leukocyte Esterase Urine RBC Urine WBC Ur Squamous Epith Cells Urine Bacteria Urine Mucus POC Glucose > 500 H* 10/31/18 10/31/18 10/31/18 18:20 18:40 19:13 WBC RBC Hgb Hct MCV MCH MCHC RDW RDW Differential Plt Count MPV Immature Gran % (Auto) Neut % (Auto) Lymph % (Auto) Gilliam % (Auto) Eos % (Auto) Baso % (Auto) Absolute Neuts (auto) Absolute Lymphs (auto) Total Counted Specimen Type COLLIN Sample Site R Radial VBG pH 7.31 L VBG pO2 30 VBG O2 Sat (Calc) 51 VBG O2 Content 21 L VBG Base Excess -6 L POC Mix VBG pCO2 Pt Tmp 39.4 L O2 Delivery Device Room Air Blood Gas Notified Whom ED MD Sodium Potassium Chloride Carbon Dioxide Anion Gap BUN Creatinine Estim Creat Clear Calc Est GFR (MDRD) Af Amer Est GFR (MDRD) Non-Af BUN/Creatinine Ratio Glucose Lactic Acid 1.3 Calcium Troponin I Urine Color Yellow Urine Clarity Clear Urine pH 6.0 Ur Specific [place] 1.015 Urine Protein Negative Urine Glucose (UA) 1000 H Urine Ketones 150 H Urine Occult Blood 10 H Urine Nitrite Negative Urine Bilirubin Negative Urine Urobilinogen Normal Ur Leukocyte Esterase Negative Urine RBC 0 SEEN Urine WBC 0 SEEN Ur Squamous Epith Cells 0-5 SEEN Urine Bacteria 0 SEEN Urine Mucus 0 SEEN POC Glucose 10/31/18 10/31/18 20:50 22:52 WBC RBC Hgb Hct MCV MCH MCHC RDW RDW Differential Plt Count MPV Immature Gran % (Auto) Neut % (Auto) Lymph % (Auto) Gilliam % (Auto) Eos % (Auto) Baso % (Auto) Absolute Neuts (auto) Absolute Lymphs (auto) Total Counted Specimen Type Sample Site VBG pH VBG pO2 VBG O2 Sat (Calc) VBG O2 Content VBG Base Excess POC Mix VBG pCO2 Pt Tmp O2 Delivery Device Blood Gas Notified Whom Sodium Potassium Chloride Carbon Dioxide Anion Gap BUN Creatinine Estim Creat Clear Calc Est GFR (MDRD) Af Amer Est GFR (MDRD) Non-Af BUN/Creatinine Ratio Glucose Lactic Acid Calcium Troponin I Urine Color Urine Clarity Urine pH Ur Specific [place] Urine Protein Urine Glucose (UA) Urine Ketones Urine Occult Blood Urine Nitrite Urine Bilirubin Urine Urobilinogen Ur Leukocyte Esterase Urine RBC Urine WBC Ur Squamous Epith Cells Urine Bacteria Urine Mucus POC Glucose 328 H 243 H - Rhythm Strip Rhythm Strip: Sinus Rhythm Rate: 92 Ectopy: None - EKG Initial EKG Interpretation: Sinus Rhythm - Ventricular rate 95. KS interval, QS duration, QT interval and axis are normal. There is decreased anterior force. EKG is unchanged from prior. Prior: Unchanged - Medical Decision Making With history of pericarditis, coronary disease EKG and troponin were obtained to assess for acute cardiac ischemia and evidence of pericarditis. With elevated blood sugar of greater than 500 a VBG was obtained which reveals a mild metabolic acidosis. CO2 was 20 with a normal anion gap. Chest x-ray is obtained to evaluate for pulmonary etiology of her symptoms. There is a new 8 mm lesion that will need outpatient follow-up/CAT scan. Patient's blood sugar improved markedly with IV fluids. Since blood sugar is now 245 she will be able to be discharged to home with outpatient work-up and follow-up for the 8 mm nodule noted on chest x-ray. A call was placed to physician covering for for close follow-up and outpatient CT to assess right upper lobe nodule. This is a new finding since prior x-ray. The hospital waste water treatment plant operator page Dr. Collins [place]. - Critical Care Time Critical care time (excluding procedures): 30-74 minutes - 32 minutes. Patient was informed she has a nodule will need outpatient CT. Patient has been in the emergency department for 5.5 hours. Her mild DKA was corrected. She is safe for discharge to home., Discussing w/Patient &/or Family/Refrigerator Assembler, Discussing w/Consultants ED Disposition - Plan for ED Patient: Disposition: Home or Assisted Living Diagnosis: DKA, type 1, Right upper lobe pulmonary nodule, Left-sided chest pain, Atherosclerotic heart disease of [place] coronary artery without angina pectoris, Hypothyroidism, Morbid obesity, Essential hypertension Instructions: ED Chest Pain NonCardiac, ED Hyperglycemia Diabetic Referrals: Carlotta Galidno MD [Primary Care Provider] - 2 Days Additional Instructions: Call Dr. Galindo's office for follow-up this week and outpatient CAT scan to evaluate nodule noted on your chest x-ray
--- NOTE | 2018-10-31 23:14 | ED.DCSUM_ITS ---
History of Present Illness Chief Complaint: Chest Pain Detail of Chief Complaint: High blood sugar, left-sided chest pain Informant: Patient Onset: Today Context: Sudden Onset Timing: Continuous Quality: Noncompliant checking blood sugar and medication Location: Left-sided chest pain Current Severity: Mild Maximum Severity: Moderate Worsened by: Breathing and change in position Relieved by: Nothing Associated Symptoms: Blurred vision, polyuria, polydipsia, nocturia and. Dry mouth Narrative: Patient is a middle-age woman with multiple medical problems and noncompliance with her medication. Patient reports he reports blurred vision, thirst, polyuria, nocturia and urgency. She denies dysuria hematuria. She has not checked her blood sugar in some time. She does complain of pleuritic sharp left chest pain. There is no history of PE or DVT. She was recently diagnosed with pericarditis. She has known coronary disease with patent stents documented on catheterization by Dr. Huerta on August 24, 2018. Patient denies leg pain, swelling discoloration. She denies vomiting diarrhea. She denies cough, shortness of breath, dyspnea exertion, orthopnea or PND. Prior similar symptoms: Yes Recent Illness/Hospitalization: Yes - She was seen on October 11 2018 - Past Medical History (1) Atherosclerotic heart disease of [place] coronary artery without angina pectoris Status: Acute Comment: Non obstructive coronary arteries; Widely patent recently placed DIAG and distal RCA stents. Non obstructive mid LAD just distal to DIAG branch as well as distal RCA. Pt's symptoms are atypical for angina and degree of chest pain is out of proportion to CAD found per cath 08/19/[address] Huerta (2) Pericarditis Status: Acute (3) Asthma Status: Chronic (4) DM (diabetes mellitus), type 1 Status: Chronic (5) Essential hypertension Status: Chronic (6) GERD (gastroesophageal reflux disease) Status: Chronic (7) Hypercholesterolemia Status: Chronic (8) Hypothyroidism Status: Chronic (9) Morbid obesity Status: Chronic (10) Sleep-disordered breathing Status: Chronic (11) Tobacco use Status: Chronic Past Medical History - Allergies and Home Meds Allergies/Adverse Reactions: Allergies metformin [From Glucophage] Allergy (Intermediate, Verified 10/31/18 18:28) Unknown Primary Care Physician: Carlotta Galindo MD [Primary Care Provider] - 2 Days Prior records reviewed: Yes Surgical History: angioplasty - PTCA ?4 at [facility], cholecystectomy, - - 4 stents in the past, 2 back surgeries with hardware, carpal tunnel, tonsils, section, I&D of breast abscesses, cervical conization Lives: Alone Smoking Status: Current some day smoker Alcohol: None - Family History Maternal Family History: Family History (Last Updated 09/10/18 @ 16:59 by Ladonna Stahl) Mother Cancer Father Hypertension COPD (chronic obstructive pulmonary disease) Daughter Factor V deficiency Grandmother Cancer COPD (chronic obstructive pulmonary disease) Family History: Reports: - - htn, dm Paternal Family History: Family History (Last Updated 09/10/18 @ 16:59 by Ladonna Stahl) Mother Cancer Father Hypertension COPD (chronic obstructive pulmonary disease) Daughter Factor V deficiency Grandmother Cancer COPD (chronic obstructive pulmonary disease) Family History: Reports: - - htn, diabetes Review of Systems General: Denies: Chills, Fever, Malaise, Subjective, Sweats Eyes: Reports: Blurred Vision - bilaterally. Denies: Visual changes - bilaterally, Diplopia ENT: Denies: Rhinorrhea, Sore throat Cardiovascular: Reports: Chest pain. Denies: Palpitations, Heart racing Respiratory: Reports: Dyspnea, Cough. Denies: Sputum, Dyspnea on exertion, Orthopnea, Paroxysmal nocturnal dyspnea Gastrointestinal: Reports: Nausea. Denies: Abdominal pain, Vomiting, Diarrhea, Melena, Hematochezia Genitourinary: Denies: Dysuria, Hematuria, Frequency Musculoskeletal: Denies: Myalgias, Arthralgias, Neck pain, Back pain, Extremity Pain Skin: Denies: Rash, Abscess, Wounds Neurological: Denies: Headache, Weakness, Numbness Psych: Reports: Depression Hematologic: Denies: Easy bruising, Easy bleeding Allergy: Denies: Uticaria, Swelling of the mouth Physical Exam Vital Signs/Narrative: Vital Signs Temp Pulse Resp BP Pulse Ox 10/31/18 22:53 93 14 144/95 H 96 10/31/18 21:22 98.6 F 91 18 158/114 H 97 10/31/18 20:12 97.6 F L 91 18 142/99 H 98 10/31/18 19:45 98.8 F 91 15 154/99 H 99 10/31/18 19:44 98.8 F 93 16 154/99 H 98 Inital Vital Signs reviewed: Yes General: Well nourished, Well developed, No Acute Distress Head: Normocephalic, Atraumatic Eyes: Perrl, EOMI. Negative for: Pale conjunctiva, Scleral icterus ENT: No rhinorrhea, TM's clear, Dry mucous membranes Neck: Supple, Nontender, No lymphadenopathy, No JVD Cardiovascular: Regular rate, Regular rhythm, No murmurs, Normal S1, Normal S2, - - No friction rub was appreciated Respiratory: No distress, CTA bilaterally, Chest tenderness Abdomen: Soft, Nontender, Nondistended, Normal bowel sounds, No masses Back: Nontender, Normal Inspection Extremities: Nontender, No edema, - - There is no asymmetry, swelling, discoloration, leg vein distention, palpable cords or tenderness along the distr ibution of the deep venous system. Skin: Normal color, No rash. Negative for: Diaphoresis, Jaundice, Rash Neurological: Alert, Oriented x3, Cranial nerves II-XII grossly intact, Normal Strength, Normal Sensation Psychological: Depressed Diagnostic/Tx/Re-eval Chest X-Ray - ED: Read by Radiologist Impressions Chest X-Ray 10/31/18 18:24 IMPRESSION: There is a new 8 mm right upper lobe likely pulmonary nodule, CT chest follow-up is recommended Electronically Signed: Anil Gibson, at 19:16 EDT Tel , Service support , 10/31/18 18:24 Chest 1 View (Portable) [RAD] Stat Laboratory Results 10/31/18 10/31/18 10/31/18 18:10 18:10 18:16 WBC 10.7 RBC 4.73 Hgb 15.4 H Hct 44.3 MCV 93.7 MCH 32.6 H MCHC 34.8 RDW 13.2 RDW Differential 45.7 H Plt Count 289 MPV 10.8 Immature Gran % (Auto) 0.200 Neut % (Auto) 62.4 Lymph % (Auto) 27.5 Cotton % (Auto) 5.9 Eos % (Auto) 3.7 Baso % (Auto) 0.3 Absolute Neuts (auto) 6.7 Absolute Lymphs (auto) 2.95 Total Counted Not Reportable Specimen Type Sample Site VBG pH VBG pO2 VBG O2 Sat (Calc) VBG O2 Content VBG Base Excess POC Mix VBG pCO2 Pt Tmp O2 Delivery Device Blood Gas Notified Whom Sodium 131 L Potassium 4.5 Chloride 98 Carbon Dioxide 20.0 L Anion Gap 13 BUN 9 Creatinine 0.71 Estim Creat Clear Calc 93.67 Est GFR (MDRD) Af Amer 114 Est GFR (MDRD) Non-Af 94 BUN/Creatinine Ratio 12.6 Glucose 495 H* Lactic Acid Calcium 8.4 L Troponin I < 0.015 Urine Color Urine Clarity Urine pH Ur Specific [place] Urine Protein Urine Glucose (UA) Urine Ketones Urine Occult Blood Urine Nitrite Urine Bilirubin Urine Urobilinogen Ur Leukocyte Esterase Urine RBC Urine WBC Ur Squamous Epith Cells Urine Bacteria Urine Mucus POC Glucose > 500 H* 10/31/18 10/31/18 10/31/18 18:20 18:40 19:13 WBC RBC Hgb Hct MCV MCH MCHC RDW RDW Differential Plt Count MPV Immature Gran % (Auto) Neut % (Auto) Lymph % (Auto) Cotton % (Auto) Eos % (Auto) Baso % (Auto) Absolute Neuts (auto) Absolute Lymphs (auto) Total Counted Specimen Type COLLIN Sample Site R Radial VBG pH 7.31 L VBG pO2 30 VBG O2 Sat (Calc) 51 VBG O2 Content 21 L VBG Base Excess -6 L POC Mix VBG pCO2 Pt Tmp 39.4 L O2 Delivery Device Room Air Blood Gas Notified Whom ED MD Sodium Potassium Chloride Carbon Dioxide Anion Gap BUN Creatinine Estim Creat Clear Calc Est GFR (MDRD) Af Amer Est GFR (MDRD) Non-Af BUN/Creatinine Ratio Glucose Lactic Acid 1.3 Calcium Troponin I Urine Color Yellow Urine Clarity Clear Urine pH 6.0 Ur Specific [place] 1.015 Urine Protein Negative Urine Glucose (UA) 1000 H Urine Ketones 150 H Urine Occult Blood 10 H Urine Nitrite Negative Urine Bilirubin Negative Urine Urobilinogen Normal Ur Leukocyte Esterase Negative Urine RBC 0 SEEN Urine WBC 0 SEEN Ur Squamous Epith Cells 0-5 SEEN Urine Bacteria 0 SEEN Urine Mucus 0 SEEN POC Glucose 10/31/18 10/31/18 20:50 22:52 WBC RBC Hgb Hct MCV MCH MCHC RDW RDW Differential Plt Count MPV Immature Gran % (Auto) Neut % (Auto) Lymph % (Auto) Cotton % (Auto) Eos % (Auto) Baso % (Auto) Absolute Neuts (auto) Absolute Lymphs (auto) Total Counted Specimen Type Sample Site VBG pH VBG pO2 VBG O2 Sat (Calc) VBG O2 Content VBG Base Excess POC Mix VBG pCO2 Pt Tmp O2 Delivery Device Blood Gas Notified Whom Sodium Potassium Chloride Carbon Dioxide Anion Gap BUN Creatinine Estim Creat Clear Calc Est GFR (MDRD) Af Amer Est GFR (MDRD) Non-Af BUN/Creatinine Ratio Glucose Lactic Acid Calcium Troponin I Urine Color Urine Clarity Urine pH Ur Specific [place] Urine Protein Urine Glucose (UA) Urine Ketones Urine Occult Blood Urine Nitrite Urine Bilirubin Urine Urobilinogen Ur Leukocyte Esterase Urine RBC Urine WBC Ur Squamous Epith Cells Urine Bacteria Urine Mucus POC Glucose 328 H 243 H - Rhythm Strip Rhythm Strip: Sinus Rhythm Rate: 92 Ectopy: None - EKG Initial EKG Interpretation: Sinus Rhythm - Ventricular rate 95. NM interval, QS duration, QT interval and axis are normal. There is decreased anterior force. EKG is unchanged from prior. Prior: Unchanged - Medical Decision Making With history of pericarditis, coronary disease EKG and troponin were obtained to assess for acute cardiac ischemia and evidence of pericarditis. With elevated blood sugar of greater than 500 a VBG was obtained which reveals a mild metabolic acidosis. CO2 was 20 with a normal anion gap. Chest x-ray is obtained to evaluate for pulmonary etiology of her symptoms. There is a new 8 mm lesion that will need outpatient follow-up/CAT scan. Patient's blood sugar improved markedly with IV fluids. Since blood sugar is now 245 she will be able to be discharged to home with outpatient work-up and follow-up for the 8 mm nodule noted on chest x-ray. A call was placed to physician covering for for close follow-up and outpatient CT to assess right upper lobe nodule. This is a new finding since prior x-ray. The hospital dieing out machine operator page Dr. Collins [place]. - Critical Care Time Critical care time (excluding procedures): 30-74 minutes - 32 minutes. Patient was informed she has a nodule will need outpatient CT. Patient has been in the emergency department for 5.5 hours. Her mild DKA was corrected. She is safe for discharge to home., Discussing w/Patient &/or Family/Hospital Account Liaison, Discussing w/Consultants ED Disposition - Plan for ED Patient: Disposition: Home or Assisted Living Diagnosis: DKA, type 1, Right upper lobe pulmonary nodule, Left-sided chest pain, Atherosclerotic heart disease of [place] coronary artery without angina pectoris, Hypothyroidism, Morbid obesity, Essential hypertension Instructions: ED Chest Pain NonCardiac, ED Hyperglycemia Diabetic Referrals: Carlotta Galindo MD [Primary Care Provider] - 2 Days Additional Instructions: Call Dr. Galindo's office for follow-up this week and outpatient CAT scan to eval uate nodule noted on your chest x-ray
[2018-10-31] MEDS: Metoclopramide 10 MG/2 ML Vial 5 MG IV (23:30)
== END 2018-10-31 23:39 | disposition home or self-care (01) ==
PROVIDERS: Emergency Provider Emergency Medicine; Family Provider Internal Medicine; PCP Internal Medicine
DX: E10.10 Type 1 diabetes mellitus with ketoacidosis without coma (principal); R91.1 Solitary pulmonary nodule; R07.9 Chest pain, unspecified; I25.10 Atherosclerotic heart disease of native coronary artery without angina pectoris; E03.9 Hypothyroidism, unspecified; E66.01 Morbid (severe) obesity due to excess calories; I10 Essential (primary) hypertension; F17.200 Nicotine dependence, unspecified, uncomplicated; Z91.14 Patient's other noncompliance with medication regimen; Z95.5 Presence of coronary angioplasty implant and graft; Z79.4 Long term (current) use of insulin; Z79.01 Long term (current) use of anticoagulants; Z79.82 Long term (current) use of aspirin; Z79.899 Other long term (current) drug therapy
CPT/HCPCS: 36600; 71045; 80048; 81001; 82803; 82962; 83605; 84484; 85025; 93005; 96361; 96374; 96375; 99285; J7030; A4216; J2405

== ENCOUNTER → 2018-11-17 20:00 | Outpatient (CLI) | payer MEDICARE, MEDICAID, SELFPAY ==
[2018-10-31 17:35] VITALS: BMI 51.9
== END ==
PROVIDERS: Family Provider Internal Medicine; PCP Internal Medicine
DX: G47.33 Obstructive sleep apnea (adult) (pediatric) (principal)
CPT/HCPCS: 95811

== ENCOUNTER → 2018-12-21 15:49 | Outpatient (CLI) | payer MEDICARE, MEDICAID, SELFPAY ==
[2018-10-31 17:35] VITALS: BMI 51.9
== END ==
PROVIDERS: Family Provider Internal Medicine; PCP Internal Medicine
DX: Z46.89 Encounter for fitting and adjustment of other specified devices (principal)

== ENCOUNTER 2019-04-25 11:41 | Emergency (ER) | payer MEDICARE, MEDICAID, SELFPAY ==
[2018-10-31 17:35] VITALS: BMI 51.9
[2019-04-25 11:41] VITALS: BP 165/100; PULSE 90; RESP 18; TEMP 36.6; O2SAT 99; BMI 55.3
[2019-04-25 12:06] VITALS: BP 158/95; PULSE 90; PULSE 95; RESP 14; TEMP 36.7; O2SAT 98
[2019-04-25] MEDS: Morphine 4 MG/ML Syringe IV (12:33)
[2019-04-25 13:00] VITALS: BP 151/80; PULSE 89; RESP 14; TEMP 36.7; O2SAT 98
--- NOTE | 2019-04-25 13:05 | ED.VIS.GEN ---
History of Present Illness Chief Complaint: Abscess Informant: Patient, Significant Other Onset: Days - Onset of left breast pain and swelling 4 days ago Context: Sudden Onset Timing: Continuous Quality: Pain Location: Left breast near areola Current Severity: Mild Maximum Severity: Severe Worsened by: Touch, bra Relieved by: Nothing Associated Symptoms: No associated fever, chills or night sweats Narrative: Patient is a 43-year-old woman who has history of diabetes with history of recurrent subtenons abscesses presents with left breast pain, redness and concern for recurrent infection. She states she is never been tested positive for MRSA. She denies blurred vision, change in vision, dysuria, polyuria, polyphagia or nocturia. Prior similar symptoms: Yes Recent Illness/Hospitalization: No - Past Medical History (1) Atherosclerotic heart disease of [place] coronary artery without angina pectoris Status: Acute Comment: Non obstructive coronary arteries; Widely patent recently placed DIAG and distal RCA stents. Non obstructive mid LAD just distal to DIAG branch as well as distal RCA. Pt's symptoms are atypical for angina and degree of chest pain is out of proportion to CAD found per cath 08/19/[address] Huerta (2) Pericarditis Status: Acute (3) Asthma Status: Chronic (4) DM (diabetes mellitus), type 1 Status: Chronic (5) Essential hypertension Status: Chronic (6) GERD (gastroesophageal reflux disease) Status: Chronic (7) Hypercholesterolemia Status: Chronic (8) Hypothyroidism Status: Chronic (9) Morbid obesity Status: Chronic (10) Sleep-disordered breathing Status: Chronic (11) Tobacco use Status: Chronic Past Medical History - Allergies and Home Meds Allergies/Adverse Reactions: Allergies metformin [From Glucophage] Allergy (Intermediate, Verified 04/25/19 11:43) Unknown Primary Care Physician: Carlotta Galindo MD [Primary Care Provider] - Prior records reviewed: Yes Surgical History: angioplasty - PTCA ?4 at [facility], cholecystectomy, - - 4 stents in the past, 2 back surgeries with hardware, carpal tunnel, tonsils, section, I&D of breast abscesses, cervical conization Lives: Spouse/ Significant Other Smoking Status: Current every day smoker Alcohol: None Drugs: None - Family History Maternal Family History: Family History (Last Updated 09/10/18 @ 16:59 by Ladonna Stahl) Mother Cancer Father Hypertension COPD (chronic obstructive pulmonary disease) Daughter Factor V deficiency Grandmother Cancer COPD (chronic obstructive pulmonary disease) Family History: Reports: - - htn, dm Paternal Family History: Family History (Last Updated 09/10/18 @ 16:59 by Ladonna Stahl) Mother Cancer Father Hypertension COPD (chronic obstructive pulmonary disease) Daughter Factor V deficiency Grandmother Cancer COPD (chronic obstructive pulmonary disease) Family History: Reports: - - htn, diabetes Review of Systems General: Denies: Chills, Fever, Malaise, Sweats Eyes: Denies: Visual changes - bilaterally, Blurred Vision - bilaterally ENT: Denies: Rhinorrhea, Sore throat Cardiovascular: Reports: Chest pain. Denies: Palpitations, Heart racing Respiratory: Denies: Dyspnea, Cough, Dyspnea on exertion, Orthopnea, Paroxysmal nocturnal dyspnea Gastrointestinal: Denies: Abdominal pain, Nausea, Vomiting, Diarrhea, Melena, Hematochezia Musculoskeletal: Denies: Myalgias, Arthralgias, Neck pain, Back pain, Swelling, Extremity Pain Skin: Reports: Rash, Abscess. Denies: Abrasions, Wounds Neurological: Denies: Weakness, Parasthesia, Numbness Endocrine: Denies: Polyuria, Polydipsia Hematologic: Denies: Easy bruising, Easy bleeding Physical Exam Vital Signs/Narrative: Vital Signs Temp Pulse Resp BP Pulse Ox 04/25/19 13:00 98.0 F 89 14 151/80 H 98 04/25/19 12:06 98.0 F 90 14 158/95 H 98 04/25/19 11:41 97.8 F 90 18 165/100 H 99 Inital Vital Signs reviewed: Yes General: Well nourished, Well developed, No Acute Distress Head: Normocephalic, Atraumatic Eyes: Perrl, EOMI. Negative for: Pale conjunctiva, Scleral icterus ENT: Moist mucous membranes, No rhinorrhea Neck: Supple, Nontender, No lymphadenopathy, No JVD Cardiovascular: Regular rate, Regular rhythm, No murmurs, Normal S1, Normal S2 Respiratory: No distress, CTA bilaterally, Chest nontender, - - Tenderness to palpation left breast. There is firmness and erythema noted. There is no axillary lymphadenopathy. There is no dimpling of the breast. There are multiple prior surgical scars noted. Rectal: Deferred Back: Nontender, Normal Inspection Extremities: Nontender, No edema Skin: Normal color, No Trauma, Rash. Negative for: Cyanosis, Diaphoresis, Jaundice Neurological: Alert, Oriented x3, Cranial nerves II-XII grossly intact, Normal Strength, Normal Sensation Psychological: Normal affect, Normal Mood Diagnostic/Tx/Re-eval - Medical Decision Making IV was established and she received IV morphine for pain. The abscess will require I&D. Please read procedure note. Procedures Procedure(s): Falk gave verbal consent for I&D of left breast abscess. Patient was given opportunity ask questions. None were asked. Patient was prepped draped sterile manner. The area was anesthetized using a total of 5 cc of 1% lidocaine. Incision was made along the areola skin border. Length of incision 1.5 to 2 cm. Blunt dissection was undertaken. Purulent drainage was noted. Patient's findings are consistent with an infected sebaceous cyst. Since there is erythema of the skin will treat with cephalexin and Bactrim x5 days. Patient discharged home with antiemetic, pain medicine and antibiotics. ED Disposition - Plan for ED Patient: Disposition: Home or Assisted Living Diagnosis: Infected sebaceous cyst of skin, Cellulitis of left breast Instructions: Cellulitis, SEBACEOUS CYST, Infected (I and D) Prescriptions: Smz/Tmp Ds [Bactrim Ds] 1 tab PO BID #10 tab Transmission Status: Pending to [facility] Cephalexin [Keflex] 500 mg PO 4X/DAY #20 cap Transmission Status: Pending to [facility] Hydrocodone Bitart/Apap 5-325 [[place] 5MG-325MG] 1 tablet PO Q6H PRN PRN 3 Days #10 tablet PRN Reason: Pain Transmission Status: Sent to [facility] Ondansetron [Zofran Odt] 4 mg PO Q8H PRN PRN #5 tab PRN Reason: Nausea Transmission Status: Pending to [facility] Referrals: Carlotta Galindo MD [Primary Care Provider] - 1 Day for another exam Additional Instructions: 1. If you need to be seen by Dr. Carrillo in 2 days for wound check please return to the emergency department. 2. All of your prescriptions were electronically transmitted to [facility].
[2019-04-25] MEDS: Ondansetron 4 MG/2 ML Vial IV (13:21)
[2019-04-25 13:27] VITALS: BP 128/62; PULSE 71; RESP 16; O2SAT 99
== END 2019-04-25 13:27 | disposition home or self-care (01) ==
PROVIDERS: Emergency Provider Emergency Medicine; Family Provider Internal Medicine; PCP Internal Medicine
DX: L72.3 Sebaceous cyst (principal); N61.1 Abscess of the breast and nipple; I10 Essential (primary) hypertension; E10.9 Type 1 diabetes mellitus without complications; K21.9 Gastro-esophageal reflux disease without esophagitis; J45.909 Unspecified asthma, uncomplicated; E78.00 Pure hypercholesterolemia, unspecified; E03.9 Hypothyroidism, unspecified; I25.10 Atherosclerotic heart disease of native coronary artery without angina pectoris; E66.01 Morbid (severe) obesity due to excess calories; F17.200 Nicotine dependence, unspecified, uncomplicated; Z68.43 Body mass index [BMI] 50.0-59.9, adult; Z95.5 Presence of coronary angioplasty implant and graft; Z79.4 Long term (current) use of insulin; Z79.82 Long term (current) use of aspirin; Z79.02 Long term (current) use of antithrombotics/antiplatelets; Z79.899 Other long term (current) drug therapy
CPT/HCPCS: 10060; 96374; 96375; 99283; A4216; J2405

== ENCOUNTER 2019-05-04 18:18 | Observation (INO) | payer MEDICARE, MEDICAID, SELFPAY ==
[2019-05-04] VITALS (8 sets, daily range): BP systolic 117–148; BP diastolic 80–97; PULSE 101–110; RESP 12–20; TEMP 36.2–36.7; O2SAT 95–99; BMI 54.8; BMI 54.9; BMI 56.7
--- NOTE | 2019-05-04 19:38 | EKG12_ITS ---
Test Reason : CP Blood Pressure : / mmHG Vent. Rate : 112 BPM Atrial Rate : 112 BPM P-R Int : 144 ms QRS Dur : 074 ms QT Int : 346 ms P-R-T Axes : 034 -05 035 degrees QTc Int : 472 ms Sinus tachycardia with frequent Premature ventricular complexes Septal infarct (cited on or before 31-OCT-2018), age undetermined Inferior infarct , age undetermined Abnormal ECG Confirmed by FATOU SILVA, ANGELY ([id number]), subeditor ODALYS PHILIPPE ([id number]) on 05/09/2019 8:28:42 AM Referred By: Suzanne Chowdhury Confirmed By:LEANDRA LAINEZ MD
--- NOTE | 2019-05-04 19:39 | ED.VISSUMM ---
- ER Visit Summary Date of Service: 05/04/19 Chief Complaint: Chest pain History of Present Illness: The patient is a 43 F presenting with chest pain. Patient states that she had intermittent chest pain and generalized weakness and fatigue over the past 2 weeks. She states it worsened today. She has midsternal chest pain that radiates to her neck and left arm. It is worsened with exertion. She has history of 5 stents, last was in August. She has history of diabetes, hypertension, hypercholesterolemia. She is not a smoker. No family history of early heart disease. She does have a history of DVT and family history of PE, no other PE/DVT risk factors. She is on aspirin and Plavix. Physical Examination: Vitals are stable. Patient is afebrile. Alert no acute distress. HEENT exam is unremarkable. Neck is supple. Lungs are clear and equal bilaterally. Heart is regular and tachycardic Abdomen is soft nontender nondistended. Extremities are unremarkable. Skin is warm and dry. No focal neurologic deficit. Remainder of exam is unremarkable. Emergency Department Course and Treatment: Patient was given aspirin, morphine, Zofran. EKG is sinus tachycardia rate of 112 with PVCs. Chest x-ray shows no acute process. CBC, chemistries unremarkable other than glucose 288. Troponin is negative. D-dimer 1.2. CTA chest was obtained which shows no demonstrated pulmonary embolism or arterial dissection. No acute cardiopulmonary process. Repeat EKG is sinus rate of 98 with no acute ischemic changes. Patient is resting comfortably on reevaluation. Discussed with the hospitalist for admission. Disposition: Admission Impression: Chest pain This note was generated with [employer] dictation software. It may contain incorrect words, spelling, and punctuation that were not noted in review of the chart prior to signing ED Disposition - Plan for ED Patient: Referrals: Carlotta Galindo MD [Primary Care Provider] -
--- NOTE | 2019-05-04 19:51 | RAD_ITS ---
STUDY: X-RAY CHEST REASON FOR EXAM: Female, 43 years old. Chest pain. TECHNIQUE: Single frontal view of the chest. COMPARISON: August 18 and October 31, 2018 FINDINGS: There is no new focal consolidation. There are stable prominent interstitial markings. There are stable faint nodular opacities within the right upper lung. Normal size heart. Normal mediastinum and larisa. Normal visualized pulmonary arteries. Normal visualized aortic arch and descending thoracic aorta. Normal visualized thoracic spine. Normal visualized ribs, clavicles, and shoulders. There is no demonstrated abnormality of the visualized soft tissue structures of the upper abdomen. RAD/Chest 1 View (Portable) IMPRESSION: No acute cardiopulmonary process. Electronically Signed: Rosario Kirkpatrick MD at 20:19 EDT Tel , Service support ,
[2019-05-04] MEDS: Ondansetron 4 MG/2 ML Vial IV ×2 (19:57→23:01)
[2019-05-04] MEDS: Morphine 4 MG/ML Syringe IV ×2 (19:58→20:45)
[2019-05-04] MEDS: Aspirin 81 MG TAB.CHEW 324 MG PO (19:58)
[2019-05-04 20:13] LABS: Hematocrit 41.6 % (37-47); Hemoglobin 14.3 g/dL (12.0-15.0); Mean Corp Hgb Conc 34.4 g/dL (32-36); Mean Corpuscular Hgb 31.4 pg (27.0-32.0); Mean Corpuscular Volume 91.4 fL (81-99); Mean Platelet Vol. 9.9 fl (6.2-12.0); POSITIVE DIFFERENTIAL YES; POSITIVE MORPHOLOGY YES; Platelet Count 221 K/mm3 (150-450); RBC Distribution Width CV 13.2 % (11.6-14.6); RBC Distribution Width SD 43.9 fl (35.1-43.9); Red Blood Count 4.55 M/mm3 (4.2-5.4); White Blood Count 9.5 K/mm3 (4.4-11.0)
[2019-05-04 20:22] LABS: Differential Indicated MANUAL DIFF
--- NOTE | 2019-05-04 20:35 | EKG12_ITS ---
Test Reason : REPEAT Blood Pressure : / mmHG Vent. Rate : 098 BPM Atrial Rate : 098 BPM P-R Int : 164 ms QRS Dur : 066 ms QT Int : 354 ms P-R-T Axes : 022 -01 018 degrees QTc Int : 451 ms Sinus rhythm with occasional Premature ventricular complexes Septal infarct , age undetermined Inferior infarct , age undetermined Abnormal ECG Confirmed by FATOU SILVA, ANGELY ([id number]), script editor ODALYS PHILIPPE ([id number]) on 05/09/2019 8:29:07 AM Referred By: Suzanne Chowdhury Confirmed By:LEANDRA LAINEZ MD
[2019-05-04 20:36] LABS: Anion Gap 11 (5-15); BUN 11 mg/dL (7-18); BUN/Creat Ratio 17.2 RATIO (10-20); Calcium,Total 8.7 mg/dL (8.5-10.1); Chloride 99 mmol/L (98-107); Creatinine, Serum 0.64 mg/dL (0.55-1.02); EST Glomerular Filtration Rate 106 mL/min (>60); Est Glom Filt Rate - Afr Amer 129 mL/min (>60); Estimated Creatinine Clearance 87.79 ml/min; Glucose 288 mg/dL (74-106); Potassium 3.9 mmol/L (3.5-5.1); Sodium Level 135 mmol/L (136-145)
[2019-05-04 20:38] LABS: Neutrophil-Band 1 % (0-5); Neutrophil-Segmented 32 % (47-70); Total Cells Counted 100 (MANUAL DIFF)
[2019-05-04 20:39] LABS: Eosinophil 3 % (0-5); Lymphocyte 57 % (19-41); Monocyte 7 % (0-10)
[2019-05-04 20:40] LABS: Anisocytosis 1+; Platelet Estimate ADEQUATE (ADEQ); Red Cell Morphology N CHROM NORMAL (NORM C&C)
[2019-05-04 20:41] LABS: Reactive Lymphocyte 2+
[2019-05-04 20:43] LABS: Absolute Lymphocyte Count 5.42 X10^3/uL (0.83-4.51); Absolute Neutrophil Count 3.1 X10^3/uL (2.0-7.7)
--- NOTE | 2019-05-04 20:44 | CT_ITS ---
STUDY: CTA CHEST REASON FOR EXAM: Female, 43 years old. History of asthma. Chest pain. RADIATION DOSAGE (If Supplied By Facility): CTDIvol = ( 12.07 ) mGy, DLP = ( 1063.88 ) mGycm TECHNIQUE: The examination was performed with the intravenous administration of IV Isovue 370 150. Post-processing of the angiographic images was performed, with multiplanar reformation and 3D reconstruction. Individualized dose optimization techniques were used for this CT. COMPARISON: PET/CT dated October 07, 2010. FINDINGS: There is a stable partially calcified 10 mm nodule within the right upper lobe not significantly changed since October 2010. There is a stable 4 mm subpleural nodule within the right middle lobe visualizes well.. Normal enhancement of the main pulmonary artery and right and left pulmonary arteries. There is suboptimal enhancement of the bilateral peripheral pulmonary arteries. There is no demonstrated pulmonary embolism. Normal thoracic aorta and visualized great vessels. There is no demonstrated aortic dissection. There are calcifications of the coronary arteries. Normal mediastinum. Normal hilar regions. Normal visualized trachea and bronchi. Normal chest wall structures. Normal osseous structures. Normal visualized upper abdomen. CT/CTA Chest W/WO Contrast IMPRESSION: No demonstrated pulmonary embolism or arterial dissection. No acute cardiopulmonary process. Electronically Signed: Rosario Kirkpatrick MD at 22:24 EDT Tel , Service support ,
--- NOTE | 2019-05-04 22:26 | ED.RN ---
PT RINGS CALL LIGHT REQUESTING MORE PAIN AND NAUSEA MEDICATION. PT INFORMED OF DR. NESS. NO NEW ORDERS AT THIS TIME, WILL CONTINUE TO MONITOR.
--- NOTE | 2019-05-04 22:52 | HP.PCM_ITS ---
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 Non obstructive mid LAD just distal to DIAG branch as well as distal RCA. Pt's symptoms are atypical for angina and degree of chest pain is out of proportion to CAD found per cath 08/19/[address] Huerta (4) Sleep-disordered breathing Status: Chronic (5) Essential hypertension Status: Chronic (6) Hypercholesterolemia Status: Chronic (7) Tobacco use Status: Chronic (8) Morbid obesity Status: Chronic (9) Hypothyroidism Status: Chronic Qualifiers: Hypothyroidism type: unspecified Qualified Code(s): E03.9 - Hypothyroidism, unspecified (10) GERD (gastroesophageal reflux disease) Status: Chronic Qualifiers: Esophagitis presence: esophagitis presence not specified Qualified Code(s): K21.9 - Gastro-esophageal reflux disease without esophagitis (11) Asthma Status: Chronic Qualifiers: Asthma severity: unspecified severity Asthma persistence: unspecified Asthma complication type: unspecified Qualified Code(s): J45.909 - Unspecified asthma, uncomplicated History of Present Illness Date of Admission: 05/04/19 Chief Complaint: Chest pain The patient is a 43 y/o F w/ PMHx: Hx DVT, Morbid Obesity, Diabetes mellitus type II, HTN, HLD, CAD s/p PCI x 5 most recently 08/12/2018 distal diagonal and distal RCA GERD, Hypothyroidism, Hx Pericarditis, GEOVANI, Tobacco use, Anxiety and Depression who presents to the [facility] ED on 05/04/19 with history of 2 weeks of fatigue and increased weakness and debility with no specific illness or other symptoms however on day of ED presentation she had onset of midsternal chest pressure, rated 7-8 out of 10 when occurring with radiation to the left neck and left upper extremity with dyspnea as well as nausea without emesis and diaphoresis, noted to be waxing and waning particularly more prominent with exertion prompting eventual ED presentation. Patient also notes she was seen in the emergency room approximate 1.5 weeks prior secondary to left breast upper areola sebaceous cyst with I&D performed in the emergency room and states that she had still had some discharge but this is been minimal with no redness, fevers or chills. Work-up in the ED included T 97.1, heart rate 106, BP 148/96, respiratory rate 16, 98% on room air, CBC with WC 9.5, hemoglobin 14.3, platelet 221 with increased lymphocytes, d-dimer 1.20, BMP with sodium 135, glucose 288, troponin less than 0.015, chest x-ray with no acute cardiopulmonary process, CTPA with no demonstrated pulmonary embolism or arterial dissection with no acute cardiopulmonary findings, EKG with sinus tachycardia with no acute evidence of ischemia. 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 Non obstructive mid LAD just distal to DIAG branch as well as distal RCA. Pt's symptoms are atypical for angina and degree of chest pain is out of proportion to CAD found per cath 08/19/[address] Huerta History of left heart catheterization (Chronic 08/19/18) Non obstructive coronary arteries; Widely patent recently placed DIAG and distal RCA stents. 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 Non obstructive mid LAD just distal to DIAG branch as well as distal RCA. Pt's symptoms are atypical for angina and degree of chest pain is out of proportion to CAD found per cath 08/19/[address] Huerta Pericarditis (Acute) I31.9 Atypical chest pain (Acute) Sleep-disordered breathing (Chronic) G47.30 Essential hypertension (Chronic) I10 Coronary artery disease (Chronic) I25.10 Hypercholesterolemia (Chronic) E78.00 Tobacco use (Chronic) Z72.0 Morbid obesity (Chronic) E66.01 Hypothyroidism (Chronic) E03.9 GERD (gastroesophageal reflux disease) (Chronic) K21.9 Asthma (Chronic) J45.909 DM (diabetes mellitus), type 1 (Chronic) History of anxiety Z86.59 Allergies metformin [From Glucophage] Allergy (Intermediate, Verified 04/25/19 11:43) Unknown Home Medications: Ambulatory Orders Medication Instructions Recorded Aspirin [Aspirin, Baby] 81 mg PO DAILY@0800 06/11/15 Clopidogrel Bisulfate [Plavix] 75 mg PO DAILY 06/11/15 Lisinopril [Zestril] 40 mg PO DAILY 06/11/15 Albuterol Inhaler [Ventolin Hfa] 1 - 2 puff INHALATION Q4H PRN PRN 10/15/15 #1 inhaler Pantoprazole Sodium [Protonix] 40 mg PO DAILY 09/23/16 cycloBENZAPRine HCl [Flexeril] 10 mg PO TID PRN PRN #14 tablet 01/09/18 Ondansetron [Zofran Odt] 4 mg PO Q8H PRN PRN #10 tablet 03/07/18 ALPRAZolam [Xanax] 1 mg PO QHS 08/18/18 Venlafaxine XR [Effexor Xr] 150 mg PO DAILY 08/18/18 Atorvastatin Calcium [Lipitor] 80 mg PO QHS #60 tablet 08/20/18 Insulin Regular, Human [Novolin R] 30 units SC TIDCM #0 08/20/18 Bupropion HCl [Bupropion Xl] 300 mg PO DAILY 05/04/19 Carvedilol [Coreg (Beta Monisha)] 50 mg PO BID 05/04/19 Insulin NPH Human Isophane 36 units SUBCUT BID 05/04/19 [Novolin N] Levothyroxine Sodium [Synthroid] 25 mcg PO DAILY 05/04/19 Levothyroxine Sodium [Synthroid] 200 mcg PO DAILY 05/04/19 Venlafaxine HCl [Venlafaxine HCl 75 mg PO DAILY 05/04/19 ER] Surgical History: Surgical History (Last Updated 09/13/18 @ 08:29 by Nae Simon) Stented coronary artery (Chronic) Z95.5 RAYMUNDO to distal diagonal and distal RCA 08/12/18; RAYMUNDO RCA 04/18/2010; RAYMUNDO LAD 11/25/2002 (all were done @ [facility] in [place], [place]) History of left heart catheterization (Chronic) Onset Date: 08/19/18 Z98.890 Non obstructive coronary arteries; Widely patent recently placed DIAG and distal RCA stents. Non obstructive mid LAD just distal to DIAG branch as well as distal RCA 08/19/18; 12/09/12 History of back surgery Z98.890 lumbar in 2013, 2014 History of delivery Z98.891 History of cholecystectomy Z90.49 History of dilatation and curettage Z98.890 History of tonsillectomy and adenoidectomy Z98.890 History of tubal ligation Z98.51 Surgical History: angioplasty - PTCA ?4 at 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 She has been using Chantix. Tobacco Use: Non-smoker Alcohol: None Drugs: None - *Family History Maternal Family History: Family History (Last Updated 09/10/18 @ 16:59 by Ladonna Stahl) Mother Cancer Father Hypertension COPD (chronic obstructive pulmonary disease) Daughter Factor V deficiency Grandmother Cancer COPD (chronic obstructive pulmonary disease) History Items: Cancer, Diabetes, Heart Disease, Hypertension Paternal Family History: Family History (Last Updated 09/10/18 @ 16:59 by Ladonna Stahl) Mother Cancer Father Hypertension COPD (chronic obstructive pulmonary disease) Daughter Factor V deficiency Grandmother Cancer COPD (chronic obstructive pulmonary disease) History Items: Diabetes, Heart Disease, Hypertension, Pulmonary Disease Review of Systems Constitutional: Reports: Malaise, Weakness, Fatigue. Denies: Chills, Fever, Weight Change HEENT: Denies: Head Aches, Sinus Congestion, Sinus Drainage Cardiovascular: Reports: Chest Pain, Chest Pressure. Denies: Chest Tightness, Heaviness, Light Headedness, Orthopnea, Palpitations, Syncope Respiratory: Reports: Shortness of breath upon exertion. Denies: Cough, Shortness of Breath, Shortness of breath at rest, Sputum production Gastrointestinal: Reports: Nausea. Denies: Abdominal Pain, Vomiting Genitourinary: Denies: Dysuria Musculoskeletal: Reports: Back Pain, Joint Pain. Denies: Joint Tenderness Skin: Reports: Skin Changes, Wounds. Denies: Rash Neurological: Denies: Numbness, Tingling, Focal weakness Psychiatric: Reports: Anxiety, Depression. Denies: Homicidal Ideations, Suicidal Ideations Hematologic/ Lymphatic: Reports: Easy Bruising, Easy Bleeding VTE Information - Inpt Only VTE Present on Admission: No VTE Mechan Device Prophylaxis: SCD's VTE Pharm Prophylaxis ordered?: Yes Patient Problems: Active and Suspected Problems (Last Updated 09/10/18 @ 17:04 by Ladonna Stahl) Chest pain (Acute) Subjective: Seated upright in ED bed, denies any current chest pressure, comfortable appearing. Objective: Physical Examination: General: awake, alert, oriented x 3 and cooperative, seated upright in the ED bed, currently denies any chest pressure. Skin: normal color, turgor, no icterus, cyanosis except noted left upper breast areola status post I&D approximate 1.5 weeks prior with minimal discharge, no erythema, no foul odor. HEENT: AT/NC, EOMI, PERRLA, mildly dry MM, no carotid bruits or JVD noted; however, thickened neck makes ablation difficult. Lungs: CTA bilaterally, moderate effort, mild decrease BL bases, no rales, ronchi or wheezing. Heart: Regular rate and rhythm; no gallop, rub audible. Abdomen: soft, morbidly obese, NTTP, ND, normal BS, no HSM; however, habitus makes examination difficult. Extremities: no cyanosis, clubbing, or edema. Neurological: patient awake, alert, oriented x 3; cognitive function intact; pupils equally reactive to light and accomodation; cranial nerves II-XII grossly normal, moving all 4 extremities, no focal deficits, strength mildly to moderately global decrease secondary to acute complaints. Psychiatric: affect appears normal, mildly fatigued, no acute evidence of depressive or anxiety feelings. - Physical Exam Vitals/I&O's: Vital Signs Temp Pulse Resp BP Pulse Ox 97.1 F L 105 H 12 117/86 H 95 05/04/19 18:19 05/04/19 22:11 05/04/19 22:11 05/04/19 22:11 05/04/19 22:11 Oxygen Flow Rate (L/min) 2 Oxygen Delivery Method Nasal Cannula Weight: 300 lb Body Mass Index (BMI) 54.8 Finger Stick Blood Glucose 328 Laboratory Results 05/04/19 19:55: WBC 9.5, RBC 4.55, Hgb 14.3, Hct 41.6, MCV 91.4, MCH 31.4, MCHC 34.4, RDW Std Deviation 43.9, RDW Coeff of Whitney 13.2, Plt Count 221, MPV 9.9, Neut % (Auto) Not Reportable, Absolute Neuts (auto) 3.1, Absolute Lymphs (auto) 5.42 H, Total Counted 100, Neutrophils % (Manual) 32 L, Band Neutrophils % 1, Lymphocytes % (Manual) 57 H, Monocytes % (Manual) 7, Eosinophils % (Manual) 3, Diff Path Review May foll, Reactive Lymphocytes 2+, Platelet Estimate ADEQUATE, RBC Morphology N CHROM, Anisocytosis 1+ 05/04/19 19:55: D-Dimer Quant (PE/DVT) 1.20 H* 05/04/19 19:55: Sodium 135 L, Potassium 3.9, Chloride 99, Carbon Dioxide 25.0, Anion Gap 11, BUN 11, Creatinine 0.64, Estim Creat Clear Calc 87.79, Est GFR (MDRD) Af Amer 129, Est GFR (MDRD) Non-Af 106, BUN/Creatinine Ratio 17.2, Glucose 288 H, Calcium 8.7, Troponin I < 0.015 Current Medications Fentanyl Citrate (Sublimaze (100mcg Ampule)) 50 mcg IV X1 ONE Stop: 05/04/19 22:53 Assessment/Plan All Active Problems (Last Updated 09/10/18 @ 17:04 by Ladonna Stahl) Chest pain (Acute) Pericarditis (Acute) Atypical chest pain (Acute) Chest pain (Resolved) DKA (diabetic ketoacidosis) (Resolved) Acute coronary syndrome (Ruled-out) The patient is a 43 y/o F w/ PMHx: Hx DVT, Morbid Obesity, Diabetes mellitus type II, HTN, HLD, CAD s/p PCI x 5 most recently 08/12/2018 distal diagonal and distal RCA GERD, Hypothyroidism, Hx Pericarditis, GEOVANI, Tobacco use, Anxiety and Depression who presents to the [facility] ED on 05/04/19 with history of 2 weeks of fatigue and increased weakness and debility with no specific illness or other symptoms however on day of ED presentation she had onset of midsternal chest pressure, rated 7-8 out of 10 when occurring with radiation to the left neck and left upper extremity with dyspnea as well as nausea without emesis and diaphoresis, noted to be waxing and waning particularly more prominent with exertion prompting eventual ED presentation. (1) Chest Pain: Work-up in the ED included T 97.1, heart rate 106, BP 148/96, respiratory rate 16, 98% on room air, CBC with WC 9.5, hemoglobin 14.3, platelet 221 with increased lymphocytes, d-dimer 1.20, BMP with sodium 135, glucose 288, troponin less than 0.015, chest x-ray with no acute cardiopulmonary process, CTPA with no demonstrated pulmonary embolism or arterial dissection with no acute cardiopulmonary findings, EKG with sinus tachycardia with no acute evidence of ischemia. Will admit to PCU, place on a monitored bed to assure no acute myocardial infarction with serial cardiac enzymes and EKGs. Patient is unable to perform exercise thus will proceed with AM nuclear stress testing. ASA, NG, morphine. FLP in AM. Mag pending. (2) CAD: Status post PCI x5, most recently August 2018, continue aspirin, Plavix, statin, Coreg, lisinopril regimen. (3) Diabetes mellitus type II: Will continue home insulin regimen, ADA diet, accu checks w/ ISS, HgbA1c pending, nutrition consulted for education and teaching. (4) Morbid Obesity: Weight loss and lifestyle changes encouraged, nutrition consulted. (5) Anxiety and depression: We will continue home Effexor, bupropion, Xanax regimen. (6) Hypertension: Continue home regimen including Coreg, lisinopril, PRN hydralazine. (7) Hyperlipidemia: Continue home statin regimen. AM FLP. (8) Hypothyroidism: Continue home synthroid regimen. (9) GERD: Continue home PPI regimen. (10) Recent L Breast Sebaceous Cyst s/p I+D: Still some mild drainage, no redness, no foul odor, will initiate dressings, Wound RN evaluation, closely monitor, recommend at discharge referral to Dr. Geiger to follow. (11) GEOVANI: CPAP q HS. (12) DVT prophylaxis: SCDs, Lovenox. Code Visit OBSV E&M: [id number] Initial observation care L3
[2019-05-04] MEDS: fentaNYL 100 MCG/2 ML Ampul 50 MCG IV (23:01)
--- NOTE | 2019-05-04 23:28 | EKG12_ITS ---
Test Reason : CP ADMIT Blood Pressure : / mmHG Vent. Rate : 110 BPM Atrial Rate : 110 BPM P-R Int : 162 ms QRS Dur : 060 ms QT Int : 338 ms P-R-T Axes : 037 005 030 degrees QTc Int : 457 ms Sinus tachycardia with frequent Premature ventricular complexes Abnormal ECG Confirmed by TACOS SILVA, LACEY ([id number]), medical transcription editor GEORGE WONG ([id number]) on 05/10/2019 8:58:24 AM Referred By: Suzanne Chowdhury Confirmed By:LACEY BALDERRAMA MD
[2019-05-05] VITALS (14 sets, daily range): BP systolic 90–124; BP diastolic 58–87; PULSE 79–108; RESP 16–18; TEMP 36.1–36.8; O2SAT 96–98
[2019-05-05] MEDS: 0.9% Normal Saline 1,000 ML 100 ML IV ×2 (00:01→12:07)
[2019-05-05] MEDS: Enoxaparin 40 MG/0.4 ML Syringe SC (00:02)
[2019-05-05] MEDS: ALPRAZolam 0.5 MG Tablet 1 MG PO ×2 (00:59→22:32)
[2019-05-05] MEDS: Carvedilol 25 MG Tablet 50 MG PO ×2 (00:59→22:32)
[2019-05-05] MEDS: Atorvastatin Calcium 80 MG Tablet PO ×2 (00:59→22:32)
[2019-05-05] MEDS: HYDROcodone Bitartrate/Apap 5/325 Tablet PO ×3 (01:00→20:06)
[2019-05-05 01:14] LABS: Hemoglobin A1c 9.3 % (4.2-6.3)
[2019-05-05 01:40] LABS: Magnesium 1.6 mg/dL (1.6-2.6)
[2019-05-05] MEDS: Morphine 2 MG/ML Syringe IV ×3 (03:36→22:32)
[2019-05-05 04:35] LABS: Anion Gap 9 (5-15); BUN 14 mg/dL (7-18); BUN/Creat Ratio 16.7 RATIO (10-20); Calcium,Total 8.2 mg/dL (8.5-10.1); Chloride 102 mmol/L (98-107); Cholesterol 216 mg/dL (200); Creatinine, Serum 0.84 mg/dL (0.55-1.02); EST Glomerular Filtration Rate 78 mL/min (>60); Est Glom Filt Rate - Afr Amer 94 mL/min (>60); Estimated Creatinine Clearance 66.89 ml/min; Glucose 329 mg/dL (74-106); High Density Lipoprotein 43 mg/dL; Sodium Level 132 mmol/L (136-145); Triglycerides 397 mg/dL; Very Low Density Lipoprotein 79 mg/dL (5-40)
[2019-05-05] MEDS: Pantoprazole Sodium 40 MG Tablet PO (05:47)
[2019-05-05] MEDS: Levothyroxine 100 MCG Tablet 200 MCG PO (05:47)
[2019-05-05] MEDS: Clopidogrel Bisulfate 75 MG Tablet PO (05:47)
[2019-05-05] MEDS: Aspirin 81 MG TAB.CHEW PO (05:47)
[2019-05-05] MEDS: Levothyroxine 25 MCG TABLET PO (05:48)
[2019-05-05 06:40] LABS: Bedside Glucose 208 mg/dL (70-110)
[2019-05-05 09:14] LABS: Absolute Lymphocyte Count 6.16 X10^3/uL (0.83-4.51); Absolute Neutrophil Count 2.7 X10^3/uL (2.0-7.7); Basophil# 0.13 X10^3/uL; Basophil% 1.3 % (0-1); Eosinophil# 0.27 X10^3/uL; Eosinophils% 2.6 % (0-5); Hematocrit 39.5 % (37-47); Hemoglobin 13.6 g/dL (12.0-15.0); Lymphocyte # 6.16 X10^3/ul (4.0); Lymphocyte % 60.3 % (19-41); Mean Corp Hgb Conc 34.4 g/dL (32-36); Mean Corpuscular Hgb 32.1 pg (27.0-32.0); Mean Corpuscular Volume 93.2 fL (81-99); Mean Platelet Vol. 9.8 fl (6.2-12.0); Monocyte# 0.96 X10^3/uL; Monocyte% 9.4 % (0-10); NRBC Flagged by Analyzer 0 % (0-5); Neutrophil # 2.65 X10^3/uL (2.7-7.7); POSITIVE DIFFERENTIAL YES; POSITIVE MORPHOLOGY YES; Platelet Count 204 K/mm3 (150-450); RBC Distribution Width CV 13.4 % (11.6-14.6); RBC Distribution Width SD 45.1 fl (35.1-43.9); Red Blood Count 4.24 M/mm3 (4.2-5.4); White Blood Count 10.2 K/mm3 (4.4-11.0)
[2019-05-05 09:17] LABS: Differential Indicated SCAN CRITERIA MET
[2019-05-05] MEDS: Venlafaxine XR 75 MG Capsule 225 MG PO (09:23)
[2019-05-05] MEDS: buPROPion (XL) 300 MG TABLET.XL PO (09:23)
[2019-05-05 09:37] LABS: Atypical Lymphocyte 1+ %; Platelet Estimate ADEQUATE (ADEQ); Red Cell Morphology NORM C+C NORMAL (NORM C&C)
[2019-05-05 09:38] LABS: Reactive Lymphocyte 1+
[2019-05-05 12:20] LABS: Bedside Glucose 225 mg/dL (70-110)
--- NOTE | 2019-05-05 13:35 | STRESSREP ---
Stress Test Report Date: 05/05/2019 Procedure: Pharmacologic stress nuclear imaging study Indications: Chest pain Consent: Per the patient Procedure: The patient underwent pharmacologic (Regadenoson) evaluation with a peak heart rate of 103 beats per minute (58 %predicted maximal heart rate) and a peak blood pressure of 146/88 mmHg. The baseline ECG demonstrated normal sinus rhythm. EKG during lexiscan infusion revealed no significant ischemic changes. EKG post infusion revealed significant ischemic changes [There were no cardiac dysrhythmias pretest, during pharmacologic infusion, or recovery]. Patient had chest discomfort at baseline which was minimally worse after infusion. The pain subsequently returned to baseline. The examination was discontinued secondary to completion of protocol. Impression: 1. Lexiscan stress test test is negative for Lexiscan infusion induced EKG changes of ischemia. 2. Lexiscan stress test test is negative for Lexiscan infusion induced anginal chest pain. 3. Results of the nuclear portion of the test is as below Myocardial perfusion imaging study: Technique: The patient was injected with 15 millicuries of technetium 99m Cardiolite and subsequently rest SPECT Cardiolite nuclear imaging was obtained in the horizontal long, vertical long, and short axis views. The patient underwent pharmacologic (Regadenoson) evaluation. Please see above for details. The patient was injected with 45 millicuries of technetium 99m Cardiolite and subsequently stress SPECT Cardiolite nuclear imaging was obtained in the horizontal long, vertical long, and short axis views. A gated Cardiolite study at peak stress was obtained. Interpretation: Rest and stress SPECT Cardiolite nuclear imaging status post realignment, normalization, and attenuation correction demonstrate no evidence of significant ischemia or infarction involving large areas of myocardium. Gated images reveal no significant regional wall motion abnormalities. The reported LVEF is 60 %. Impression: 1. There is no evidence of significant ischemia or infarction. 2. Estimated ejection fraction is 60%. This note was generated with [employer] software. It may contain incorrect words, spelling, and punctuation that were not noted in checking the note before signing.
[2019-05-05 13:47] LABS: Pathologist Review Reviewed
--- NOTE | 2019-05-05 13:56 | PCM.PROGNOTE ---
<Zach Maldonado - Last Filed: 05/05/19 13:56> Patient Problems: Active and Suspected Problems (Last Updated 05/06/19 @ 11:35 by Noe Rouse MD) Chest pain (Acute) Subjective: Ongoing 7/10 chest pain mid sternal to left side radiating into the neck. Associated mild dyspnea and generalized fatigue over the past several weeks. Pt requesting to be seen by cardiology. - Physical Exam Vitals/I&O's: Vital Signs Temp Pulse Resp BP Pulse Ox 97 F L 79 16 91/70 96 05/05/19 11:08 05/05/19 11:08 05/05/19 11:08 05/05/19 11:08 05/05/19 11:30 Oxygen Flow Rate (L/min) 2 Oxygen Delivery Method Room Air Weight: 310 lb 6.574 oz Body Mass Index (BMI) 56.7 Finger Stick Blood Glucose 328 Intake and Output for Last 24 Hours 05/03/19 05/04/19 05/05/19 23:59 23:59 23:59 Intake Total 1398.33 / 1398.33 Balance 1398.33 / 1398.33 General: Alert, Oriented x3, Cooperative HEENT: Atraumatic, PERRLA, EOMI, Normocephalic Neck: Supple, No JVD, Negative Carotid Bruits Lungs: Clear to auscultation, Normal air movement Cardiovascular: Regular rate, No murmurs Abdomen: Bowel Sounds Present, Soft, Non Tender, Obese Extremities: No edema, Capillary Refill Less than 3 Seconds Skin: No rashes, No breakdown Musculoskeletal: No Tenderness to Palpation of Joints or Extremities Neurological: Cranial nerves II-XII grossly intact Psych/Mental Status: Normal Affect, Appropriate, Alert and oriented to time, place, person, mood and affect Laboratory Results 05/04/19 19:55: WBC 9.5, RBC 4.55, Hgb 14.3, Hct 41.6, MCV 91.4, MCH 31.4, MCHC 34.4, RDW Std Deviation 43.9, RDW Coeff of Whitney 13.2, Plt Count 221, MPV 9.9, Neut % (Auto) Not Reportable, Absolute Neuts (auto) 3.1, Absolute Lymphs (auto) 5.42 H, Total Counted 100, Neutrophils % (Manual) 32 L, Band Neutrophils % 1, Lymphocytes % (Manual) 57 H, Monocytes % (Manual) 7, Eosinophils % (Manual) 3, Diff Path Review Reviewed, Reactive Lymphocytes 2+, Platelet Estimate ADEQUATE, RBC Morphology N CHROM, Anisocytosis 1+ 05/04/19 19:55: D-Dimer Quant (PE/DVT) 1.20 H* 05/04/19 19:55: Sodium 135 L, Potassium 3.9, Chloride 99, Carbon Dioxide 25.0, Anion Gap 11, BUN 11, Creatinine 0.64, Estim Creat Clear Calc 87.79, Est GFR (MDRD) Af Amer 129, Est GFR (MDRD) Non-Af 106, BUN/Creatinine Ratio 17.2, Glucose 288 H, Calcium 8.7, Troponin I < 0.015 05/04/19 19:55: Hemoglobin A1c 9.3 H 05/05/19 01:10: Magnesium 1.6, Troponin I < 0.015 05/05/19 03:58: Sodium 132 L, Potassium 4.0, Chloride 102, Carbon Dioxide 21.0, Anion Gap 9, BUN 14, Creatinine 0.84, Estim Creat Clear Calc 66.89, Est GFR (MDRD) Af Amer 94, Est GFR (MDRD) Non-Af 78, BUN/Creatinine Ratio 16.7, Glucose 329 H, Calcium 8.2 L, Troponin I < 0.015, Triglycerides 397 H, Cholesterol 216 H, LDL Cholesterol 94, VLDL Cholesterol 79 H, HDL Cholesterol 43 05/05/19 06:34: POC Glucose 208 H 05/05/19 09:03: WBC 10.2, RBC 4.24, Hgb 13.6, Hct 39.5, MCV 93.2, MCH 32.1 H, MCHC 34.4, RDW Std Deviation 45.1 H, RDW Coeff of Whitney 13.4, Plt Count 204, MPV 9.8, Immature Gran % (Auto) 0.400, Neut % (Auto) 26.0 L, Lymph % (Auto) 60.3 H, [place] % (Auto) 9.4, Eos % (Auto) 2.6, Baso % (Auto) 1.3 H, Absolute Neuts (auto) 2.7, Absolute Lymphs (auto) 6.16 H, Nucleated RBC % 0, Atypical Lymphocytes 1+, Reactive Lymphocytes 1+, Platelet Estimate ADEQUATE, RBC Morphology NORM C+C 05/05/19 09:03: Troponin I < 0.015 05/05/19 12:10: POC Glucose 225 H Current Medications Acetaminophen (Tylenol) 650 mg PO Q6H PRN PRN PRN Reason: Non-cardiac pain (4-04/14) Hydrocodone Bitart/Acetaminophen ([place] 5mg-325mg) 1 - 2 tablet PO Q6H PRN PRN PRN Reason: Pain Score 4-04/14 Last Admin: 05/05/19 09:14 Dose: 2 tablet Documented by: Al Hydroxide/Mg Hydroxide (Mylanta Ii) 15 - 30 ml PO Q4H PRN PRN PRN Reason: INDIGESTION Albuterol Sulfate (Ventolin Aerosols) 2.5 mg INHALATION Q2H PRN PRN PRN Reason: dyspnea, wheezing Alprazolam (Xanax) 1 mg PO QHS [facility] Last Admin: 05/05/19 00:59 Dose: 1 mg Documented by: Aspirin (Aspirin, Baby) 81 mg PO DAILY@0800 [facility] Last Admin: 05/05/19 05:47 Dose: 81 mg Documented by: Atorvastatin Calcium (Lipitor) 80 mg PO QHS [facility] Last Admin: 05/05/19 00:59 Dose: 80 mg Documented by: Bupropion HCl (Wellbutrin Xl) 300 mg PO DAILY [facility] Last Admin: 05/05/19 09:23 Dose: 300 mg Documented by: Carvedilol (Coreg) 50 mg PO BID [facility] Last Admin: 05/05/19 12:11 Dose: Not Given Documented by: Clopidogrel Bisulfate (Plavix) 75 mg PO DAILY [facility] Last Admin: 05/05/19 05:47 Dose: 75 mg Documented by: Cyclobenzaprine HCl (Flexeril) 10 mg PO TID PRN PRN PRN Reason: MUSCLE SPASM Dextrose (D50w Syringe) 0 gm IV X1 PRN; Protocol PRN Reason: Hypoglycemia Enoxaparin Sodium (Lovenox) 40 mg SC BID [facility] Last Admin: 05/05/19 00:02 Dose: 40 mg Documented by: Glucagon () 1 mg IM .X1 PRN PRN Reason: Hypoglycemia Hydralazine HCl (Apresoline Iv) 10 mg IV Q4H PRN PRN PRN Reason: SBP > 160 Sodium Chloride () 1,000 mls @ 100 mls/hr IV .Q10H [facility] Last Admin: 05/05/19 12:07 Dose: 100 mls/hr Documented by: Insulin Human Lispro (Humalog Kwikpen (Bkc)) 30 unit SC TIDAC [facility] Last Admin: 05/05/19 12:12 Dose: Not Given Documented by: Insulin Human Lispro (Humalog Kwikpen (Bkc)) 0 unit SC ACHS [facility]; Protocol Last Admin: 05/05/19 12:12 Dose: Not Given Documented by: Insulin Human NPH (Humulin N (Bk)) 36 units SC BIDAC [facility] Levothyroxine Sodium (Synthroid) 25 mcg PO DAILY@0600 [facility] Last Admin: 05/05/19 05:48 Dose: 25 mcg Documented by: Levothyroxine Sodium (Synthroid) 200 mcg PO DAILY@0600 [facility] Last Admin: 05/05/19 05:47 Dose: 200 mcg Documented by: Lisinopril (Zestril) 40 mg PO DAILY [facility] Last Admin: 05/05/19 12:11 Dose: Not Given Documented by: Magnesium Hydroxide (Milk Of Magnesia) 30 ml PO DAILY PRN PRN Reason: Constipation Melatonin (Melatonin) 3 mg PO QHS PRN PRN PRN Reason: INSOMNIA Morphine Sulfate () 1 - 2 mg IV Q4H PRN PRN PRN Reason: Pain Score 1-10/10 Last Admin: 05/05/19 03:36 Dose: 2 mg Documented by: Nitroglycerin (Nitrostat) 0.4 mg SUBLINGUAL Q5M PRN PRN Reason: CARDIAC/CHEST PAIN Ondansetron HCl (Zofran) 4 mg IV Q8H PRN PRN PRN Reason: NAUSEA/VOMITING Pantoprazole Sodium (Protonix) 40 mg PO DAILY [facility] Last Admin: 05/05/19 05:47 Dose: 40 mg Documented by: Promethazine HCl (Phenergan) 6.25 mg IV Q4H PRN PRN PRN Reason: NAUSEA/VOMITING Sodium Chloride () 10 - 40 ml IV UD PRN PRN Reason: SALINE FLUSH Venlafaxine HCl (Effexor Xr) 225 mg PO DAILY [facility] Last Admin: 05/05/19 09:23 Dose: 225 mg Documented by: Medical Necessity - Tobacco Use Smoking Status: Former smoker Tobacco Use: Non-smoker Assessment/Plan All Active Problems (Last Updated 05/06/19 @ 11:35 by Noe Rouse MD) Chest pain (Acute) 1. Chest pain - normal stress test. Negative tropx3. CTA chest negative. No events on tele. Cardiology consulted. Ongoing 01/12 chest pain. She needs complete nicotine cessation. 2. CAD - prior PCIx5 most recently in [place] Aug this year after which she had endocarditis. Had repeat cath here in August with Dr. Huerta with no issues. -continue aspiring, statin, coreg, plavix, lisinopril 3. DMt2 with morbid obesity - poorly controlled A1C 9.3. She is pursuing bariatric surgery as an outpatient. Titrate insulin regimen to response. 4. Nicotine abuse - ongoing. 2-3 cigarettes per day. Also on chantix - pt reports depression and nightmares on chantix. I advised her to discuss these side effects with her PCP. 5. Anx/Depression - xanax, wellbutrin, melatonin, effexor 6. HTN - bp borderline low. continue current therapy. avoid morphine/nitro if possible. 7. HLD - statin 8. Hyopthyroidism - synthroid 9. GERD - PPI 10. GEOVANI - CPAP qhs DVT ppx: lovenox DC planning: pending cardiology recommendations This patient was seen by Zach Maldonado PA-C under the supervision of Doctor Nasim. <Noe Rouse - Last Filed: 05/06/19 11:38> - Physical Exam Vitals/I&O's: Vital Signs Temp Pulse Resp BP Pulse Ox 98 F 88 16 113/74 97 05/05/19 14:36 05/05/19 14:58 05/05/19 14:36 05/05/19 14:36 05/05/19 14:36 Oxygen Flow Rate (L/min) 2 Oxygen Delivery Method Room Air Weight: 310 lb 6.574 oz Body Mass Index (BMI) 56.7 Finger Stick Blood Glucose 328 Intake and Output for Last 24 Hours 05/03/19 05/04/19 05/05/19 23:59 23:59 23:59 Intake Total 1398.33 / 1398.33 Balance 1398.33 / 1398.33 Laboratory Results 05/04/19 19:55: WBC 9.5, RBC 4.55, Hgb 14.3, Hct 41.6, MCV 91.4, MCH 31.4, MCHC 34.4, RDW Std Deviation 43.9, RDW Coeff of Whitney 13.2, Plt Count 221, MPV 9.9, Neut % (Auto) Not Reportable, Absolute Neuts (auto) 3.1, Absolute Lymphs (auto) 5.42 H, Total Counted 100, Neutrophils % (Manual) 32 L, Band Neutrophils % 1, Lymphocytes % (Manual) 57 H, Monocytes % (Manual) 7, Eosinophils % (Manual) 3, Diff Path Review Reviewed, Reactive Lymphocytes 2+, Platelet Estimate ADEQUATE, RBC Morphology N CHROM, Anisocytosis 1+ 05/04/19 19:55: D-Dimer Quant (PE/DVT) 1.20 H* 05/04/19 19:55: Sodium 135 L, Potassium 3.9, Chloride 99, Carbon Dioxide 25.0, Anion Gap 11, BUN 11, Creatinine 0.64, Estim Creat Clear Calc 87.79, Est GFR (MDRD) Af Amer 129, Est GFR (MDRD) Non-Af 106, BUN/Creatinine Ratio 17.2, Glucose 288 H, Calcium 8.7, Troponin I < 0.015 05/04/19 19:55: Hemoglobin A1c 9.3 H 05/05/19 01:10: Magnesium 1.6, Troponin I < 0.015 05/05/19 03:58: Sodium 132 L, Potassium 4.0, Chloride 102, Carbon Dioxide 21.0, Anion Gap 9, BUN 14, Creatinine 0.84, Estim Creat Clear Calc 66.89, Est GFR (MDRD) Af Amer 94, Est GFR (MDRD) Non-Af 78, BUN/Creatinine Ratio 16.7, Glucose 329 H, Calcium 8.2 L, Troponin I < 0.015, Triglycerides 397 H, Cholesterol 216 H, LDL Cholesterol 94, VLDL Cholesterol 79 H, HDL Cholesterol 43 05/05/19 06:34: POC Glucose 208 H 05/05/19 09:03: WBC 10.2, RBC 4.24, Hgb 13.6, Hct 39.5, MCV 93.2, MCH 32.1 H, MCHC 34.4, RDW Std Deviation 45.1 H, RDW Coeff of Whitney 13.4, Plt Count 204, MPV 9.8, Immature Gran % (Auto) 0.400, Neut % (Auto) 26.0 L, Lymph % (Auto) 60.3 H, [place] % (Auto) 9.4, Eos % (Auto) 2.6, Baso % (Auto) 1.3 H, Absolute Neuts (auto) 2.7, Absolute Lymphs (auto) 6.16 H, Nucleated RBC % 0, Atypical Lymphocytes 1+, Reactive Lymphocytes 1+, Platelet Estimate ADEQUATE, RBC Morphology NORM C+C 05/05/19 09:03: Troponin I < 0.015 05/05/19 12:10: POC Glucose 225 H Current Medications Acetaminophen (Tylenol) 650 mg PO Q6H PRN PRN PRN Reason: Non-cardiac pain (4-1010) Hydrocodone Bitart/Acetaminophen ([place] 5mg-325mg) 1 - 2 tablet PO Q6H PRN PRN PRN Reason: Pain Score 4-1010 Last Admin: 05/05/19 09:14 Dose: 2 tablet Documented by: Al Hydroxide/Mg Hydroxide (Mylanta Ii) 15 - 30 ml PO Q4H PRN PRN PRN Reason: INDIGESTION Albuterol Sulfate (Ventolin Aerosols) 2.5 mg INHALATION Q2H PRN PRN PRN Reason: dyspnea, wheezing Alprazolam (Xanax) 1 mg PO QHS [facility] Last Admin: 05/05/19 00:59 Dose: 1 mg Documented by: Aspirin (Aspirin, Baby) 81 mg PO DAILY@0800 [facility] Last Admin: 05/05/19 05:47 Dose: 81 mg Documented by: Atorvastatin Calcium (Lipitor) 80 mg PO QHS [facility] Last Admin: 05/05/19 00:59 Dose: 80 mg Documented by: Bupropion HCl (Wellbutrin Xl) 300 mg PO DAILY [facility] Last Admin: 05/05/19 09:23 Dose: 300 mg Documented by: Carvedilol (Coreg) 50 mg PO BID [facility] Last Admin: 05/05/19 12:11 Dose: Not Given Documented by: Clopidogrel Bisulfate (Plavix) 75 mg PO DAILY [facility] Last Admin: 05/05/19 05:47 Dose: 75 mg Documented by: Cyclobenzaprine HCl (Flexeril) 10 mg PO TID PRN PRN PRN Reason: MUSCLE SPASM Dextrose (D50w Syringe) 0 gm IV X1 PRN; Protocol PRN Reason: Hypoglycemia Enoxaparin Sodium (Lovenox) 40 mg SC BID [facility] Last Admin: 05/05/19 14:41 Dose: Not Given Documented by: Glucagon () 1 mg IM .X1 PRN PRN Reason: Hypoglycemia Hydralazine HCl (Apresoline Iv) 10 mg IV Q4H PRN PRN PRN Reason: SBP > 160 Insulin Human Lispro (Humalog Kwikpen (Bkc)) 30 unit SC TIDAC [facility] Last Admin: 05/05/19 14:41 Dose: Not Given Documented by: Insulin Human Lispro (Humalog Kwikpen (Bkc)) 0 unit SC ACHS [facility]; Protocol Last Admin: 05/05/19 12:12 Dose: Not Given Documented by: Insulin Human NPH (Humulin N ([facility])) 38 units SC BIDAC [facility] Levothyroxine Sodium (Synthroid) 25 mcg PO DAILY@0600 [facility] Last Admin: 05/05/19 05:48 Dose: 25 mcg Documented by: Levothyroxine Sodium (Synthroid) 200 mcg PO DAILY@0600 [facility] Last Admin: 05/05/19 05:47 Dose: 200 mcg Documented by: Lisinopril (Zestril) 40 mg PO DAILY [facility] Last Admin: 05/05/19 12:11 Dose: Not Given Documented by: Magnesium Hydroxide (Milk Of Magnesia) 30 ml PO DAILY PRN PRN Reason: Constipation Melatonin (Melatonin) 3 mg PO QHS PRN PRN PRN Reason: INSOMNIA Morphine Sulfate () 1 - 2 mg IV Q4H PRN PRN PRN Reason: Pain Score 1-10/10 Last Admin: 05/05/19 15:54 Dose: 2 mg Documented by: Nitroglycerin (Nitrostat) 0.4 mg SUBLINGUAL Q5M PRN PRN Reason: CARDIAC/CHEST PAIN Ondansetron HCl (Zofran) 4 mg IV Q8H PRN PRN PRN Reason: NAUSEA/VOMITING Pantoprazole Sodium (Protonix) 40 mg PO DAILY [facility] Last Admin: 05/05/19 05:47 Dose: 40 mg Documented by: Promethazine HCl (Phenergan) 6.25 mg IV Q4H PRN PRN PRN Reason: NAUSEA/VOMITING Sodium Chloride () 10 - 40 ml IV UD PRN PRN Reason: SALINE FLUSH Venlafaxine HCl (Effexor Xr) 225 mg PO DAILY [facility] Last Admin: 05/05/19 09:23 Dose: 225 mg Documented by: Assessment/Plan Hospitalist note: I am seeing this patient in conjunction with Zach Maldonado. I independently seen and examined the patient. Progress note above, laboratory data and imaging studies reviewed and I concur with the above treatment and work-up plan. Patient still complaining of midsternal chest pain associated with mild shortness of breath and fatigue. Patient requested to be seen by cardiology. Her vital signs are stable. - Physical Exam General: Alert, Oriented x3, Cooperative, No apparent distress. HEENT: Atraumatic, PERRLA, EOMI. Neck: Supple, No JVD, Negative Carotid Bruits, Trachea Midline, Thyroid Normal. Lungs: Clear to auscultation, Normal air movement, No rhonchi, No wheeze, No rales. Cardiovascular: Regular rate, Regular Rhythm, Normal S1, Normal S2, PMI Normal. Abdomen: Bowel Sounds Present, Soft, Non Tender, Non-Distended, No Hepato-splenomegaly. Extremities: No clubbing, No cyanosis, No edema Skin: No rashes, No breakdown Neurological: Cranial nerves are intact, neuro grossly intact Vital Signs are stable. Assessment and plan: #1 chest pain: EKG revealed no acute ischemic changes. Troponin positive x3. She underwent nuclear stress test that was reported as negative without evidence of stress-induced myocardial ischemia. D-dimer was elevated for which CTA chest done and showed no PE or dissection. Patient requested to be seen by cardiology although her cardiac work-up was negative. Cardiology consulted and recommended cardiac catheterization which will be done tomorrow. #2 other chronic medical problems: Stable, continue current medications as above. This note was generated with [employer] dictation software. It may contain incorrect words, spelling, and punctuation that were not noted in checking the note before signing. Code Visit OBSV E&M: [id number] Subsequent observation care L2
--- NOTE | 2019-05-05 15:31 | PCM.CONS.C ---
Reason for Consult Date of Consultation: 05/05/19 History of Present Illness: The patient is a 43 y/o F w/ PMHx: Hx DVT, Morbid Obesity, Diabetes mellitus type II, HTN, HLD, CAD s/p PCI x 5 most recently 08/12/2018 distal diagonal and distal RCA GERD, Hypothyroidism, Hx Pericarditis, GEOVANI, Tobacco use, Anxiety and Depression who presents to the [facility] ED on 05/04/19 with history of 2 weeks of fatigue and increased weakness and debility with no specific illness or other symptoms however on day of ED presentation she had onset of midsternal chest pressure, rated 7-8 out of 10 when occurring with radiation to the left neck and left upper extremity with dyspnea as well as nausea without emesis and diaphoresis, noted to be waxing and waning particularly more prominent with exertion prompting eventual ED presentation. Patient was admitted to the PCU, acute OK was ruled out and she underwent stress testing which revealed no ischemia. However patient continues to have chest pain and feels that something is wrong and states that her chest pain is very similar to what she had prior to her PCI. Review of systems: All systems reviewed. All else is negative except that in the HPI. Past Medical History Allergies/Adverse Reactions: Allergies metformin [From Glucophage] Allergy (Intermediate, Verified 04/25/19 11:43) Unknown Home Medications: Ambulatory Orders Medication Instructions Recorded Aspirin [Aspirin, Baby] 81 mg PO DAILY@0800 06/11/15 Clopidogrel Bisulfate [Plavix] 75 mg PO DAILY 06/11/15 Lisinopril [Zestril] 40 mg PO DAILY 06/11/15 Albuterol Inhaler [Ventolin Hfa] 1 - 2 puff INHALATION Q4H PRN PRN 10/15/15 #1 inhaler Pantoprazole Sodium [Protonix] 40 mg PO DAILY 09/23/16 cycloBENZAPRine HCl [Flexeril] 10 mg PO TID PRN PRN #14 tablet 01/09/18 Ondansetron [Zofran Odt] 4 mg PO Q8H PRN PRN #10 tablet 03/07/18 ALPRAZolam [Xanax] 1 mg PO QHS 08/18/18 Venlafaxine XR [Effexor Xr] 150 mg PO DAILY 08/18/18 Atorvastatin Calcium [Lipitor] 80 mg PO QHS #60 tablet 08/20/18 Insulin Regular, Human [Novolin R] 30 units SC TIDCM #0 08/20/18 Bupropion HCl [Bupropion Xl] 300 mg PO DAILY 05/04/19 Carvedilol [Coreg (Beta Monisha)] 50 mg PO BID 05/04/19 Insulin NPH Human Isophane 36 units SUBCUT BID 05/04/19 [Novolin N] Levothyroxine Sodium [Synthroid] 25 mcg PO DAILY 05/04/19 Levothyroxine Sodium [Synthroid] 200 mcg PO DAILY 05/04/19 Venlafaxine HCl [Venlafaxine HCl 75 mg PO DAILY 05/04/19 ER] Past Medical History (Chronic Problems): Chronic Problems (Last Updated 09/10/18 @ 17:04 by Ladonna Stahl) Diabetes mellitus, type II (Chronic) Stented coronary artery (Chronic) RAYMUNDO to distal diagonal and distal RCA 08/12/18; RAYMUNDO RCA 04/18/2010; RAYMUNDO LAD 11/25/2002 (all were done @ [facility] in [place], [place]) Atherosclerotic heart disease of [place] coronary artery without angina pectoris (Chronic) Non obstructive coronary arteries; Widely patent recently placed DIAG and distal RCA stents. Non obstructive mid LAD just distal to DIAG branch as well as distal RCA. Pt's symptoms are atypical for angina and degree of chest pain is out of proportion to CAD found per cath 08/19/[address] Huerta History of left heart catheterization (Chronic 08/19/18) Non obstructive coronary arteries; Widely patent recently placed DIAG and distal RCA stents. Non obstructive mid LAD just distal to DIAG branch as well as distal RCA 08/19/18; 12/09/12 Sleep-disordered breathing (Chronic) Essential hypertension (Chronic) Hypercholesterolemia (Chronic) Tobacco use (Chronic) Morbid obesity (Chronic) Hypothyroidism (Chronic) GERD (gastroesophageal reflux disease) (Chronic) Asthma (Chronic) DM (diabetes mellitus), type 1 (Chronic) Surgical History: angioplasty - [facility] ?[facility], cholecystectomy, - - 5 stents in the past, 2 back surgeries with hardware of the lumbar spine, carpal tunnel, tonsils, section, bilateral tubal ligation, I&D of breast abscesses, cervical conization Psychiatric History: Anxiety, Depression ACADEMIC ADVISOR History: No pertinent ACADEMIC ADVISOR history - *Family History Maternal Family History: Family History (Last Updated 09/10/18 @ 16:59 by Ladonna Stahl) Mother Cancer Father Hypertension COPD (chronic obstructive pulmonary disease) Daughter Factor V deficiency Grandmother Cancer COPD (chronic obstructive pulmonary disease) History Items: Cancer, Diabetes, Heart Disease, Hypertension Paternal Family History: Family History (Last Updated 09/10/18 @ 16:59 by Ladonna Stahl) Mother Cancer Father Hypertension COPD (chronic obstructive pulmonary disease) Daughter Factor V deficiency Grandmother Cancer COPD (chronic obstructive pulmonary disease) History Items: Diabetes, Heart Disease, Hypertension, Pulmonary Disease Lives: Spouse/ Significant Other Smoking Status: Former smoker Tobacco Use: Non-smoker Alcohol: None Drugs: None Objective: Vital Signs Temp Pulse Resp BP Pulse Ox 98 F 88 16 113/74 97 05/05/19 14:36 05/05/19 14:58 05/05/19 14:36 05/05/19 14:36 05/05/19 14:36 Oxygen Flow Rate (L/min) 2 Oxygen Delivery Method Room Air Weight: 310 lb 6.574 oz Body Mass Index (BMI) 56.7 Finger Stick Blood Glucose 328 Intake and Output for Last 24 Hours 05/03/19 05/04/19 05/05/19 23:59 23:59 23:59 Intake Total 1398.33 / 1398.33 Balance 1398.33 / 1398.33 General: Awake, Alert, Oriented x 3 HEENT: Atraumatic Oral: Moist Mucosa Neck: Supple Lungs: Clear to auscultation Cardiovascular: Regular Rhythm Abdomen: Soft Extremities: No edema Skin: No Rashes Psych/Mental Status: Appropriate 05/04/19 19:55: WBC 9.5, RBC 4.55, Hgb 14.3, Hct 41.6, MCV 91.4, MCH 31.4, MCHC 34.4, Plt Count 221, MPV 9.9, Neut % (Auto) Not Reportable, Absolute Neuts (auto) 3.1, Total Counted 100, Neutrophils % (Manual) 32 L, Band Neutrophils % 1, Lymphocytes % (Manual) 57 H, Monocytes % (Manual) 7, Eosinophils % (Manual) 3 05/04/19 19:55: D-Dimer Quant (PE/DVT) 1.20 H* 05/04/19 19:55: Sodium 135 L, Potassium 3.9, Chloride 99, Carbon Dioxide 25.0, Anion Gap 11, BUN 11, Creatinine 0.64, Est GFR (MDRD) Af Amer 129, Est GFR (MDRD) Non-Af 106, BUN/Creatinine Ratio 17.2, Glucose 288 H, Calcium 8.7, Troponin I < 0.015 05/04/19 19:55: Hemoglobin A1c 9.3 H 05/05/19 01:10: Magnesium 1.6, Troponin I < 0.015 05/05/19 03:58: Sodium 132 L, Potassium 4.0, Chloride 102, Carbon Dioxide 21.0, Anion Gap 9, BUN 14, Creatinine 0.84, Est GFR (MDRD) Af Amer 94, Est GFR (MDRD) Non-Af 78, BUN/Creatinine Ratio 16.7, Glucose 329 H, Calcium 8.2 L, Troponin I < 0.015, Triglycerides 397 H, Cholesterol 216 H, LDL Cholesterol 94, VLDL Cholesterol 79 H, HDL Cholesterol 43 05/05/19 09:03: WBC 10.2, RBC 4.24, Hgb 13.6, Hct 39.5, MCV 93.2, MCH 32.1 H, MCHC 34.4, Plt Count 204, MPV 9.8, Immature Gran % (Auto) 0.400, Neut % (Auto) 26.0 L, Lymph % (Auto) 60.3 H, [place] % (Auto) 9.4, Eos % (Auto) 2.6, Baso % (Auto) 1.3 H, Absolute Neuts (auto) 2.7, Nucleated RBC % 0 05/05/19 09:03: Troponin I < 0.015 Rhythm: EKG: ECHO: Stress Test: Cardiac Cath: PCI: CT Surgery: Holter monitor: EPS: PPM: CXR: Chest CT Scan: Assessment/Plan 1. Chest pain: States that she has constant chest pain which is worse with exertion. Enzymes have been negative and her stress test was negative for significant ischemia. However patient states that her chest pain is similar to what she felt before her PCI. She states that after her PCI she was asymptomatic for the most part until about 2 weeks back. She is very concerned about this. She prefers to undergo coronary angiography to see if she has significant stenoses. Explained the risks and benefits. We will proceed with coronary angiography tomorrow.
[2019-05-05 17:45] LABS: Bedside Glucose 274 mg/dL (70-110)
[2019-05-05] MEDS: Insulin NPH Human 100 UNITS/ML PEN 38 UNITS SC (18:24)
[2019-05-05] MEDS: Insulin Lispro 100 UNIT/ML INSULN.PEN 30 UNIT SC (18:25)
[2019-05-05] MEDS: 0.9% Saline Lock 10 ML Syringe IV (22:33)
[2019-05-05 22:46] LABS: Bedside Glucose 97 mg/dL (70-110)
[2019-05-06] VITALS (23 sets, daily range): BP systolic 86–146; BP diastolic 50–98; PULSE 84–110; RESP 15–25; TEMP 36–36.7; O2SAT 93–99; BMI 56.7
--- NOTE | 2019-05-06 00:04 | CPS ---
Pt. refused CPAP
--- NOTE | 2019-05-06 05:55 | EKG12_ITS ---
Test Reason : AM EKG Blood Pressure : / mmHG Vent. Rate : 084 BPM Atrial Rate : 084 BPM P-R Int : 156 ms QRS Dur : 080 ms QT Int : 380 ms P-R-T Axes : 046 001 015 degrees QTc Int : 449 ms Normal sinus rhythm Inferior CO, age undetermined, cannot be excluded Confirmed by TACOS SILVA, LACEY ([id number]), editor magazine ODALYS PHILIPPE ([id number]) on 05/11/2019 11:26:18 AM Referred By: Suzanne Chowdhury Confirmed By:LACEY BALDERRAMA MD
[2019-05-06] MEDS: Levothyroxine 25 MCG TABLET PO (06:39)
[2019-05-06] MEDS: Clopidogrel Bisulfate 75 MG Tablet PO (06:39)
[2019-05-06] MEDS: Levothyroxine 100 MCG Tablet 200 MCG PO (06:39)
[2019-05-06] MEDS: Pantoprazole Sodium 40 MG Tablet PO (06:39)
[2019-05-06] MEDS: HYDROcodone Bitartrate/Apap 5/325 Tablet PO ×2 (06:39→15:19)
[2019-05-06] MEDS: Aspirin 81 MG TAB.CHEW PO (06:39)
[2019-05-06 06:45] LABS: Bedside Glucose 109 mg/dL (70-110)
--- NOTE | 2019-05-06 06:53 | NURSING ---
Report given to Darleen rodriguez in cardiac cath lab manager. aware that consent was not obtained since feed house supervisor did not place obtain consent orders. Aware of pts prior bp reading of 86/50 and current bp of 112/67 and pt not given coreg or lisinopril at this time d/t lower bp reading earlier.
[2019-05-06 07:47] LABS: Internal QC Validated? YES +Cl - CLEAR BKGD; Pregnancy, Serum, hCG Quali. NEGATIVE Negative
[2019-05-06] MEDS: Morphine 2 MG/ML Syringe IV ×4 (08:25→21:49)
[2019-05-06] MEDS: 0.9% Saline Lock 10 ML Syringe IV (08:25)
[2019-05-06] MEDS: Insulin Lispro 100 UNIT/ML INSULN.PEN 30 UNIT SC ×2 (11:35→17:02)
[2019-05-06] MEDS: Venlafaxine XR 75 MG Capsule 225 MG PO (11:35)
[2019-05-06] MEDS: buPROPion (XL) 300 MG TABLET.XL PO (11:35)
[2019-05-06] MEDS: Insulin Lispro 100 UNIT/ML INSULN.PEN SC (11:36)
[2019-05-06] MEDS: Insulin NPH Human 100 UNITS/ML PEN 38 UNITS SC (11:37)
[2019-05-06 11:46] LABS: Bedside Glucose 285 mg/dL (70-110)
--- NOTE | 2019-05-06 12:30 | EKG12_ITS ---
Test Reason : AM EKG Blood Pressure : / mmHG Vent. Rate : 089 BPM Atrial Rate : 089 BPM P-R Int : 174 ms QRS Dur : 062 ms QT Int : 362 ms P-R-T Axes : 044 016 023 degrees QTc Int : 440 ms Normal sinus rhythm Low voltage QRS Borderline ECG Confirmed by TACOS SILVA, LACEY ([id number]), rewrite editor GEORGE WONG ([id number]) on 05/10/2019 8:48:42 AM Referred By: Suzanne Chowdhury Confirmed By:LACEY BALDERRAMA MD
--- NOTE | 2019-05-06 12:52 | PCM.PROGNOTE ---
<Zach Maldonado - Last Filed: 05/06/19 12:52> Patient Problems: Active and Suspected Problems (Last Updated 05/06/19 @ 11:35 by Noe Rouse MD) Chest pain (Acute) Subjective: Pt seen and examined before and after heart cath. This AM she continued to have the same chest pain that she had yesterday, without any improvement. She went for heart cath, a stent was placed and now her pain is improved. She continues to have some residual midsternal chest pain. She has no N/V, no SOB, no dizziness/LH, no palpitations. - Physical Exam Vitals/I&O's: Vital Signs Temp Pulse Resp BP Pulse Ox 96.8 F L 109 H 16 145/98 H 97 05/06/19 11:13 05/06/19 12:45 05/06/19 12:45 05/06/19 12:45 05/06/19 12:45 Oxygen Flow Rate (L/min) 2 Oxygen Delivery Method Room Air Weight: 310 lb 6.574 oz Body Mass Index (BMI) 56.7 Finger Stick Blood Glucose 328 Intake and Output for Last 24 Hours 05/04/19 05/05/19 05/06/19 23:59 23:59 23:59 Intake Total 3138.33 / 3138.33 0 / 0 Output Total 500 / 500 Balance 3138.33 / 3138.33 -500 / -500 General: Alert, Oriented x3, Cooperative HEENT: Atraumatic, PERRLA, EOMI, Normocephalic Neck: Supple, No JVD, Negative Carotid Bruits Lungs: Clear to auscultation, Normal air movement Cardiovascular: Regular rate, No murmurs Abdomen: Bowel Sounds Present, Soft, Non Tender, Obese Extremities: No edema, Capillary Refill Less than 3 Seconds Skin: No rashes, No breakdown Musculoskeletal: No Tenderness to Palpation of Joints or Extremities Neurological: Cranial nerves II-XII grossly intact Psych/Mental Status: Normal Affect, Appropriate Laboratory Results 05/04/19 19:55: Diff Path Review Reviewed 05/05/19 17:43: POC Glucose 274 H 05/05/19 22:39: POC Glucose 97 05/06/19 06:31: POC Glucose 109 05/06/19 07:20: Serum , Qual NEGATIVE 05/06/19 11:33: POC Glucose 285 H Current Medications Acetaminophen (Tylenol) 650 mg PO Q6H PRN PRN PRN Reason: Non-cardiac pain (4-10) Hydrocodone Bitart/Acetaminophen (Garwood 5mg-325mg) 1 - 2 tablet PO Q6H PRN PRN PRN Reason: Pain Score 4-1010 Last Admin: 05/06/19 06:39 Dose: 2 tablet Documented by: Al Hydroxide/Mg Hydroxide (Mylanta Ii) 15 - 30 ml PO Q4H PRN PRN PRN Reason: INDIGESTION Albuterol Sulfate (Ventolin Aerosols) 2.5 mg INHALATION Q2H PRN PRN PRN Reason: dyspnea, wheezing Alprazolam (Xanax) 1 mg PO QHS [facility] Aspirin (Aspirin, Baby) 81 mg PO DAILY@0800 [facility] Last Admin: 05/06/19 06:39 Dose: 81 mg Documented by: Atorvastatin Calcium (Lipitor) 80 mg PO QHS [facility] Last Admin: 05/05/19 22:32 Dose: 80 mg Documented by: Atropine Sulfate () 0.5 mg IV UD PRN PRN Reason: HR <50 bpm Bupropion HCl (Wellbutrin Xl) 300 mg PO DAILY [facility] Last Admin: 05/06/19 11:35 Dose: 300 mg Documented by: Carvedilol (Coreg) 50 mg PO BID [facility] Last Admin: 05/06/19 08:35 Dose: Not Given Documented by: Clopidogrel Bisulfate (Plavix) 75 mg PO DAILY [facility] Last Admin: 05/06/19 06:39 Dose: 75 mg Documented by: Cyclobenzaprine HCl (Flexeril) 10 mg PO TID PRN PRN PRN Reason: MUSCLE SPASM Dextrose (D50w Syringe) 0 gm IV X1 PRN; Protocol PRN Reason: Hypoglycemia Enoxaparin Sodium (Lovenox) 40 mg SC BID [facility] Last Admin: 05/06/19 09:32 Dose: Not Given Documented by: Glucagon () 1 mg IM .X1 PRN PRN Reason: Hypoglycemia Heparin Sodium (Beef Lung) (Heparin 500 Unit/5 Ml (100/Ml)) 500 unit IV UD PRN PRN Reason: HEPARIN FLUSH Hydralazine HCl (Apresoline Iv) 10 mg IV Q4H PRN PRN PRN Reason: SBP > 160 Sodium Chloride () 1,000 mls @ 60 mls/hr IV .[id number] [facility] Insulin Human Lispro (Humalog Kwikpen (Bkc)) 30 unit SC TIDAC [facility] Last Admin: 05/06/19 11:35 Dose: 30 u Documented by: Insulin Human Lispro (Humalog Kwikpen (Bkc)) 0 unit SC ACHS [facility]; Protocol Last Admin: 05/06/19 11:36 Dose: 4 units Documented by: Insulin Human NPH (Humulin N (Bk)) 38 units SC BIDAC [facility] Last Admin: 05/06/19 11:37 Dose: 38 u Documented by: Labetalol HCl (Trandate) 5 mg IV X1 PRN PRN Reason: SBP > 160 when pulling sheath Stop: 05/08/19 12:26 Levothyroxine Sodium (Synthroid) 25 mcg PO DAILY@0600 [facility] Last Admin: 05/06/19 06:39 Dose: 25 mcg Documented by: Levothyroxine Sodium (Synthroid) 200 mcg PO DAILY@0600 [facility] Last Admin: 05/06/19 06:39 Dose: 200 mcg Documented by: Lisinopril (Zestril) 40 mg PO DAILY [facility] Last Admin: 05/06/19 08:35 Dose: Not Given Documented by: Magnesium Hydroxide (Milk Of Magnesia) 30 ml PO DAILY PRN PRN Reason: Constipation Melatonin (Melatonin) 3 mg PO QHS PRN PRN PRN Reason: INSOMNIA Morphine Sulfate () 1 - 2 mg IV Q4H PRN PRN PRN Reason: Pain Score 1-10/10 Last Admin: 05/06/19 12:28 Dose: 2 mg Documented by: Nitroglycerin (Nitrostat) 0.4 mg SUBLINGUAL Q5M PRN PRN Reason: CARDIAC/CHEST PAIN Ondansetron HCl (Zofran) 4 mg IV Q8H PRN PRN PRN Reason: NAUSEA/VOMITING Pantoprazole Sodium (Protonix) 40 mg PO DAILY [facility] Last Admin: 05/06/19 06:39 Dose: 40 mg Documented by: Promethazine HCl (Phenergan) 6.25 mg IV Q4H PRN PRN PRN Reason: NAUSEA/VOMITING Sodium Chloride () 10 - 40 ml IV UD PRN PRN Reason: SALINE FLUSH Last Admin: 05/06/19 08:25 Dose: 10 ml Documented by: Sodium Chloride () 500 ml IV BOLUS PRN PRN Reason: VASO-VAGAL PROTOCOL Venlafaxine HCl (Effexor Xr) 225 mg PO DAILY [facility] Last Admin: 05/06/19 11:35 Dose: 225 mg Documented by: Medical Necessity - Tobacco Use Smoking Status: Former smoker Tobacco Use: Non-smoker Assessment/Plan All Active Problems (Last Updated 05/06/19 @ 11:35 by Noe Rouse MD) Chest pain (Acute) 1. CAD - prior PCIx5 most recently in [place] Aug this year after which she had endocarditis. Had repeat cath here in August with Dr. Huerta with no issues. -Heart cath today per Dr. Miranda and stent placeed, final report pending. -ongoing chest pain but less severe since stent. -continue aspiring, statin, coreg, plavix, lisinopril 3. DMt2 with morbid obesity - poorly controlled A1C 9.3. She is pursuing bariatric surgery as an outpatient. Titrate insulin regimen to response. 4. Nicotine abuse - ongoing. 2-3 cigarettes per day. Also on chantix - pt reports depression and nightmares on chantix. I advised her to discuss these side effects with her PCP. 5. Anx/Depression - xanax, wellbutrin, melatonin, effexor 6. HTN - bp borderline low. continue current therapy. avoid morphine/nitro if possible. 7. HLD - statin 8. Hyopthyroidism - synthroid 9. GERD - PPI 10. GEOVANI - CPAP qhs DC planning: cardiac intervention this AM, monitor overnight. This patient was seen by Zach Maldonado PA-C under the supervision of Doctor Nasim. <Noe Rouse - Last Filed: 05/06/19 13:24> - Physical Exam Vitals/I&O's: Vital Signs Temp Pulse Resp BP Pulse Ox 96.8 F L 109 H 16 145/98 H 97 05/06/19 11:13 05/06/19 12:45 05/06/19 12:45 05/06/19 12:45 05/06/19 12:45 Oxygen Flow Rate (L/min) 2 Oxygen Delivery Method Room Air Weight: 310 lb Body Mass Index (BMI) 56.7 Finger Stick Blood Glucose 328 Intake and Output for Last 24 Hours 05/04/19 05/05/19 05/06/19 23:59 23:59 23:59 Intake Total 3138.33 / 3138.33 0 / 0 Output Total 500 / 500 Balance 3138.33 / 3138.33 -500 / -500 Laboratory Results 05/04/19 19:55: Diff Path Review Reviewed 05/05/19 17:43: POC Glucose 274 H 05/05/19 22:39: POC Glucose 97 05/06/19 06:31: POC Glucose 109 05/06/19 07:20: Serum , Qual NEGATIVE 05/06/19 11:33: POC Glucose 285 H Current Medications Acetaminophen (Tylenol) 650 mg PO Q6H PRN PRN PRN Reason: Non-cardiac pain (4-04/14) Hydrocodone Bitart/Acetaminophen (Garwood 5mg-325mg) 1 - 2 tablet PO Q6H PRN PRN PRN Reason: Pain Score 4-04/14 Last Admin: 05/06/19 06:39 Dose: 2 tablet Documented by: Al Hydroxide/Mg Hydroxide (Mylanta Ii) 15 - 30 ml PO Q4H PRN PRN PRN Reason: INDIGESTION Albuterol Sulfate (Ventolin Aerosols) 2.5 mg INHALATION Q2H PRN PRN PRN Reason: dyspnea, wheezing Alprazolam (Xanax) 1 mg PO QHS [facility] Aspirin (Aspirin, Baby) 81 mg PO DAILY@0800 [facility] Last Admin: 05/06/19 06:39 Dose: 81 mg Documented by: Atorvastatin Calcium (Lipitor) 80 mg PO QHS [facility] Last Admin: 05/05/19 22:32 Dose: 80 mg Documented by: Atropine Sulfate () 0.5 mg IV UD PRN PRN Reason: HR <50 bpm Bupropion HCl (Wellbutrin Xl) 300 mg PO DAILY [facility] Last Admin: 05/06/19 11:35 Dose: 300 mg Documented by: Carvedilol (Coreg) 50 mg PO BID [facility] Last Admin: 05/06/19 08:35 Dose: Not Given Documented by: Clopidogrel Bisulfate (Plavix) 75 mg PO DAILY [facility] Last Admin: 05/06/19 06:39 Dose: 75 mg Documented by: Cyclobenzaprine HCl (Flexeril) 10 mg PO TID PRN PRN PRN Reason: MUSCLE SPASM Dextrose (D50w Syringe) 0 gm IV X1 PRN; Protocol PRN Reason: Hypoglycemia Enoxaparin Sodium (Lovenox) 40 mg SC BID [facility] Last Admin: 05/06/19 09:32 Dose: Not Given Documented by: Glucagon () 1 mg IM .X1 PRN PRN Reason: Hypoglycemia Heparin Sodium (Beef Lung) (Heparin 500 Unit/5 Ml (100/Ml)) 500 unit IV UD PRN PRN Reason: HEPARIN FLUSH Hydralazine HCl (Apresoline Iv) 10 mg IV Q4H PRN PRN PRN Reason: SBP > 160 Sodium Chloride () 1,000 mls @ 60 mls/hr IV .[id number] [facility] Stop: 05/06/19 18:29 Insulin Human Lispro (Humalog Kwikpen (Bk)) 30 unit SC TIDAC [facility] Last Admin: 05/06/19 11:35 Dose: 30 u Documented by: Insulin Human Lispro (Humalog Kwikpen (Bkc)) 0 unit SC ACHS [facility]; Protocol Last Admin: 05/06/19 11:36 Dose: 4 units Documented by: Insulin Human NPH (Humulin N (Bk)) 38 units SC BIDAC [facility] Last Admin: 05/06/19 11:37 Dose: 38 u Documented by: Labetalol HCl (Trandate) 5 mg IV X1 PRN PRN Reason: SBP > 160 when pulling sheath Stop: 05/08/19 12:26 Levothyroxine Sodium (Synthroid) 25 mcg PO DAILY@0600 [facility] Last Admin: 05/06/19 06:39 Dose: 25 mcg Documented by: Levothyroxine Sodium (Synthroid) 200 mcg PO DAILY@0600 [facility] Last Admin: 05/06/19 06:39 Dose: 200 mcg Documented by: Lisinopril (Zestril) 40 mg PO DAILY [facility] Last Admin: 05/06/19 08:35 Dose: Not Given Documented by: Magnesium Hydroxide (Milk Of Magnesia) 30 ml PO DAILY PRN PRN Reason: Constipation Melatonin (Melatonin) 3 mg PO QHS PRN PRN PRN Reason: INSOMNIA Morphine Sulfate () 1 - 2 mg IV Q4H PRN PRN PRN Reason: Pain Score 1-10/10 Last Admin: 05/06/19 12:28 Dose: 2 mg Documented by: Nitroglycerin (Nitrostat) 0.4 mg SUBLINGUAL Q5M PRN PRN Reason: CARDIAC/CHEST PAIN Ondansetron HCl (Zofran) 4 mg IV Q8H PRN PRN PRN Reason: NAUSEA/VOMITING Pantoprazole Sodium (Protonix) 40 mg PO DAILY [facility] Last Admin: 05/06/19 06:39 Dose: 40 mg Documented by: Promethazine HCl (Phenergan) 6.25 mg IV Q4H PRN PRN PRN Reason: NAUSEA/VOMITING Sodium Chloride () 10 - 40 ml IV UD PRN PRN Reason: SALINE FLUSH Last Admin: 05/06/19 08:25 Dose: 10 ml Documented by: Sodium Chloride () 500 ml IV BOLUS PRN PRN Reason: VASO-VAGAL PROTOCOL Venlafaxine HCl (Effexor Xr) 225 mg PO DAILY [facility] Last Admin: 05/06/19 11:35 Dose: 225 mg Documented by: Assessment/Plan I am seeing this patient in conjunction with Zach Maldonado. I independently seen and examined the patient. Progress note above, laboratory data reviewed and I concur with the above treatment plan. Patient underwent cardiac catheterization this morning and she had stent placed. Intervention report is pending. Patient mentioned that she is still having chest pain but improved compared to yesterday. She denies any shortness of breath. Her vital signs are stable. - Physical Exam General: Alert, Oriented x3, Cooperative, No apparent distress. HEENT: Atraumatic, PERRLA, EOMI. Neck: Supple, No JVD, Negative Carotid Bruits, Trachea Midline, Thyroid Normal. Lungs: Clear to auscultation, Normal air movement, No rhonchi, No wheeze, No rales. Cardiovascular: Regular rate, Regular Rhythm, Normal S1, Normal S2, PMI Normal. Abdomen: Bowel Sounds Present, Soft, Non Tender, Non-Distended, No Hepato-splenomegaly. Extremities: No clubbing, No cyanosis, No edema Skin: No rashes, No breakdown Neurological: Cranial nerves are intact, neuro grossly intact Vital Signs are stable. Assessment and plan: #1 Coronary artery disease/chest pain: EKG revealed no acute ischemic changes. Troponin positive x3. Nuclear stress test that was initially was unremarkable. Patient underwent cardiac catheterization today, found to have CAD and she has 1 stent placed. Cardiac intervention report is pending. She is on aspirin, Plavix, statins, Coreg, lisinopril. Her vital signs are stable. Cardiology on the case. Plan to continue same treatment, anticipate discharge home tomorrow. #2 other chronic medical problems: Stable, continue current medications as above. This note was generated with Mai[employer] dictation software. It may contain incorrect words, spelling, and punctuation that were not noted in checking the note before signing. Code Visit OBSV E&M: 18203 Subsequent observation care L2
--- NOTE | 2019-05-06 12:54 | CASEMGMT ---
RN CM Assessment Presentation: Chest pain, PCI Intro role of CM and purpose of RN CM assessment to patient in room.. Demographics, PCP and Pharmacy verified.Pt states she is independent, her can assist her at home but generally no care needs. PCP: Dr. Galindo Specialists: Dr. Miranda, cardiology [facility] Insurance: [facility] Prescription Benefit: yes. Denies difficulty having prescriptions filled. LNOK: Living Arrangements: Lives independently with her . Transportation: drives or can drive to appts. DME: none. Pt had Cpap, was to return for new testing this week, but cancelled due to admission. Pt will f/u for another appt. HHC: none Patient DC goals: Home DC PLAN: Home Sathya OGDEN RN AC
--- NOTE | 2019-05-06 13:14 | CRPHASE1 ---
Patient Communication PHII Cardiac Rehab Discussed with Patient:: Yes Guide to Cardiac Rehab Given to Patient:: Yes Cardiac Rehab Facility Choice List Given to Patient:: Yes - chooses [facility] Choice Program [facility] CR PHII:: Communication Given to CR, Refer to [facility] .Net Developer:: Columba Miranda Refer Phase II Cardiac Rehab:: Yes Sessions:: 36 sessions - 3 days/wk, 12 weeks Risk Factors/Lifestyle Hx Diabetes Mellitus Type 1: Yes Hx Diabetes Mellitus Type 2: Yes Hx Dyslipidemia: Yes Hx Obesity: Yes Height: 1.57 m Weight:: 140.614 kg BMI: 56.7 Family History: Family History (Last Updated 09/10/18 @ 16:59 by Ladonna Stahl) Mother Cancer Father Hypertension COPD (chronic obstructive pulmonary disease) Daughter Factor V deficiency Grandmother Cancer COPD (chronic obstructive pulmonary disease) Laboratory Values: Cardiac Rehab Phase I Labs Hemoglobin A1c 9.3 % (4.2-6.3) H 05/04/19 19:55 Triglycerides 397 mg/dL (-199) H 05/05/19 03:58 Cholesterol 216 mg/dL (200) H 05/05/19 03:58 LDL Cholesterol 94 mg/dL (0-130) 05/05/19 03:58 HDL Cholesterol 43 mg/dL (40-) 05/05/19 03:58 Phase I Education Given On:: Rodney, Nutrition, Antiplatelet medication, CHF, Smoking cessation, Diabetes - Type I, Diabetes - Type II Issues Affecting Care:: None Knowledge of Condition:: Yes Learning Preferences: Verbal, Written, Audio/Visual, Demonstration Medical/Surgical History Diabetes:: Yes Dyslipidemia:: Yes PTCA:: Yes Cardiac Rehabilitation Info Cardiac Rehabilitation Program Information: Cardiac Rehabilitation is important for patients like you who are recovering from a heart problem. Cardiac rehabilitation programs are recognized as integral to the continued care of the patient with coronary heart disease. The cardiac rehabilitation program is designed to optimize a patient's physical, psychological, and social functioning. Health property caretaker work in cardiac rehabilitation programs and assist you with getting the treatments you need to get stronger and healthier - like exercise, healthy eating habits, and medications. Cardiac rehabilitation has been show to help people with heart problems live longer and have better life enjoyment than people who do not go to cardiac rehabilitation. Please contact the Cardiac Rehabilitation Program at [facility] [place] at in two weeks if you have not heard from them.
--- NOTE | 2019-05-06 13:19 | CRPH1.INSTRU ---
General Education CAD and cardiac anatomy and function:: Patient communicates acknowledgment Explanation of diagnoses and procedures:: Patient communicates acknowledgment Sign/Symptoms of IN:: Patient communicates acknowledgment Antiplatelet therapy: Patient communicates acknowledgment Proper use of NTG-SL: Not instructed Emergency procedures and activation of EMS: Patient communicates acknowledgment Compliance of all prescribed medications: Patient communicates acknowledgment Smoking Nicotine/Smoking Response Code:: Patient communicates acknowledgment Dyslipidemia Dyslipidemia Response Code:: Patient communicates acknowledgment Overweight/Obesity Patient Overweight/Obesity Risk Factors Are:: Obesity - > or = 30 Recommendations Include:: Weight loss of 5-10%, Reduced calorie diet, Exercise 5-7 times/week Overweight/Obesity:: Patient communicates acknowledgment Hypertension Hypertension:: Patient communicates acknowledgment Heart Disease Heart Disease Response Code:: Patient communicates acknowledgment Diabetes Patient Diabetes Risk Factors Are:: Elevated blood sugars Recommendations Include:: Maintain fasting blood sugars 70-110 md/dL, Maintain HgbA1c of 6% or less, Monitor blood sugar as prescribed, Diabetic dietary guidelines, Decrease/maintain body weight Diabetes:: Patient communicates acknowledgment Metabolic Syndrome Metabolic Syndrome Response Code:: Patient communicates acknowledgment Sedentary Sedentary Response Code:: Patient communicates acknowledgment Stress Stress Response Code:: Patient communicates acknowledgment
--- NOTE | 2019-05-06 13:38 | PCM.PN.CARD ---
Subjectve: Patient had stent to the diagonal 1 today. Other stents are patent. Chest pain has improved after PCI but still present. Objective: Vital Signs Temp Pulse Resp BP Pulse Ox 96.8 F L 109 H 16 145/98 H 97 05/06/19 11:13 05/06/19 12:45 05/06/19 12:45 05/06/19 12:45 05/06/19 12:45 Oxygen Flow Rate (L/min) 2 Oxygen Delivery Method Room Air Weight: 310 lb Body Mass Index (BMI) 56.7 Finger Stick Blood Glucose 328 Intake and Output for Last 24 Hours 05/04/19 05/05/19 05/06/19 23:59 23:59 23:59 Intake Total 3138.33 / 3138.33 0 / 0 Output Total 500 / 500 Balance 3138.33 / 3138.33 -500 / -500 General: Awake, Alert, Oriented x 3 HEENT: Atraumatic Oral: Moist Mucosa Neck: Supple Lungs: Clear to auscultation Cardiovascular: Regular Rhythm Abdomen: Soft Extremities: No edema Skin: No Rashes Psych/Mental Status: Appropriate Rhythm: EKG: ECHO: Stress Test: Cardiac Cath: PCI: CT Surgery: Holter monitor: EPS: PPM: CXR: Chest CT Scan: Medical Necessity - Tobacco Use Smoking Status: Former smoker Tobacco Use: Non-smoker Assessment/Plan 1. Chest pain: Patient underwent coronary angiography which revealed 80% stenosis in the diagonal 1 which was treated with drug-eluting stent. Other stents are patent. Otherwise angiogram was unchanged from August 2018. Continue current medications and monitor the patient overnight. If patient is stable she could be discharged home tomorrow. She may have some noncardiac component to this chest discomfort as well.
[2019-05-06] MEDS: Magnesium Oxide 400 MG Tablet 800 MG PO (14:23)
--- NOTE | 2019-05-06 14:55 | CL.I_ITS ---
Patient Name: ADELFO BACK Study Date: 05/06/2019 Performing: Jose F Miranda MD Ht: 62 inches 157 cm : 1975 Wt: 311.3 lbs 141 kg Age: 43 Gender: female BSA: 2.3 PROCEDURE(S) PERFORMED [id number]/COR/LV [id number] W OR WO PTCA, SINGLE CORONARY ARTERY CLINICAL PROFILE AND CO-MORBIDITIES Indications: Worsening Angina Heart Failure: None Stress/Imaging Stress Test w/SPECT MPI: Yes Result: Negative Stress Test with SPECT MPI: Negative CAD Presentations: Unstable angina. CONCLUSIONS CAD as described with patent prior stents. Preserved EF. No significant or MR. Successful PCI of D 1 with RAYMUNDO. RECOMMENDATIONS Follow up with primary food general manager ASA Indefinitley Plavix for at least 12 months DESCRIPTION OF PROCEDURE The patient arrived to the procedure lab. The risks and benefits of the procedure as well as a full d escription of our services here and lack of surgical backup were fully explained to the patient and/o r their significant other prior to the catheterization. The Timeout was completed, verifying the lynn ect patient and procedure. The patient's procedural site was prepped and draped in the usual fashion. Local anesthetic was given subcutaneously to right radial region with Lidocaine 2%. Using a modified Seldinger technique, arterial access was obtained via the right radial artery, a 6Fr sheath was inse rted.. LV to AO pullback pressures were then recorded. Left Coronary Artery selective angiography wa s performed in multiple views using a 5 Fr. JL3.5 catheter. Left Ventriculography was performed in RA O projection using a 5 Fr. JR4. Right Coronary Artery selective angiography was then performed in mul tiple views using a 5 Fr. JR 4 catheterThe images were reviewed and options discussed. A decision was then made to proceed with an Intervention, IVUS or other adjunct procedure. XB 3.0 Guide catheter was inserted and engaged into the LCA. BMW Guide wire was advanced to the 1 st Diagonal. 2.5 x 12 Elunir Drug Eluting stent was advanced across the lesion in the first diagonal, proximal. Angiogram performed pre stent deployment. The arterial sheath was pulled and a TR Band w as applied for hemostasis 14cc air CORONARY ANGIOGRAPHY DOMINANCE: Right Dominant LEFT HEART ASSESSMENT Left Ventricular Ejection Fraction: by LV Gram 60 % Normal LV wall motion LEFT MAIN: Mild luminal irregularities LEFT ANTERIOR DESCENDING ARTERY: OSTIAL LAD: 30 % Stenosis PROX LAD: Previously placed stent is patent DIAGONAL 1: Proximal - 80 % Stenosis CIRCUMFLEX ARTERY: Mild luminal irregularities OM 1: Proximal - 50 % Stenosis RIGHT CORONARY ARTERY: PROX RCA: Instent restenosis 25 % DISTAL RCA: 50 % Stenosis VALVE FINDINGS: No Aortic Valve Stenosis No Mitral Insufficency INTERVENTION INFORMATION LESION SITE: RCA (Proximal) Lesion Complexity: High/C, chronic total occlusion: No, lesion at bifurcation: No, thrombus present: No, lesion length: 11 mm, culprit lesion: Yes, Previously treated lesion: No Pre Stenosis: 80 % Pre intervention LIAT flow: 3 PROCEDURE: Drug Eluting Stent Post Stenosis: 0 % Post intervention LIAT flow: 3 Lesion Devices: Ferguson .014 BMW Emmett Straight 190cm Cardinal 6 Fr XB3.0 100cm Guide Catheter Cardinal Elunir RAYMUNDO RX 2.5x12 COMPLICATIONS No Complications PROCEDURE MEDICATIONS Versed 1 mg IV Fentanyl 50 mcg IV Versed 1 mg IV Versed 1 mg IV Oxygen: 2 L/min via nasal cannula Heparin given IA 05/06/2019 10:11:33 Heparin 6000 unit(s) IV 05/06/2019 10:30:15 Nitro 100 mcg IC 05/06/2019 10:17:58 Verapamil 2.5mg, Ntg 100mcgs, 3000 units of Heparin given IA 05/06/2019 10:11:33 SUMMARY OF HEMODYNAMIC DATA Time AIR REST ECG 09:51:24 LV 131/-10, 7 10:15:46 LV 130/-10, 9 10:15:52 LVp 128/-11, 12 10:16:10 AOp 115/-19 (46) 10:16:15 AO 105/70 (83) SA 10:16:19 Signed By Jose F Miranda MD On 05/06/2019 14:54:32 Jose F Miranda MD
[2019-05-06] MEDS: FLUCONAZOLE 150 MG TABLET PO (17:01)
[2019-05-06 17:10] LABS: Bedside Glucose 116 mg/dL (70-110)
--- NOTE | 2019-05-06 17:40 | CPS ---
Patient states she was non compliant with PAP and it was taken away. Patient had a sleep study titration scheduled for 05/09/19 but had to cancel due to being in hospital. Patient refusing hospital bipap at this time.
[2019-05-06 18:56] LABS: Bedside Glucose 63 mg/dL (70-110)
[2019-05-06] MEDS: ALPRAZolam 0.5 MG Tablet 1 MG PO (21:46)
[2019-05-06] MEDS: Enoxaparin 40 MG/0.4 ML Syringe SC (21:47)
[2019-05-06] MEDS: Carvedilol 25 MG Tablet 50 MG PO (21:48)
[2019-05-06] MEDS: Atorvastatin Calcium 80 MG Tablet PO (21:50)
[2019-05-06 22:06] LABS: Bedside Glucose 94 mg/dL (70-110)
[2019-05-07] VITALS (13 sets, daily range): BP systolic 99–148; BP diastolic 65–103; PULSE 76–100; RESP 13–21; TEMP 36.6–36.7; O2SAT 92–100
[2019-05-07] MEDS: HYDROcodone Bitartrate/Apap 5/325 Tablet PO ×2 (00:30→07:59)
[2019-05-07] MEDS: Morphine 2 MG/ML Syringe IV (02:49)
[2019-05-07] MEDS: 0.9% Saline Lock 10 ML Syringe IV ×2 (02:50→05:09)
[2019-05-07] MEDS: Levothyroxine 25 MCG TABLET PO (05:11)
[2019-05-07] MEDS: Levothyroxine 100 MCG Tablet 200 MCG PO (05:11)
[2019-05-07 05:38] LABS: Hemoglobin 13.3 g/dL (12.0-15.0); Mean Corp Hgb Conc 34.1 g/dL (32-36); Mean Corpuscular Hgb 32.3 pg (27.0-32.0); Mean Corpuscular Volume 94.7 fL (81-99); Mean Platelet Vol. 10.2 fl (6.2-12.0); Platelet Count 188 K/mm3 (150-450); RBC Distribution Width CV 13.6 % (11.6-14.6); RBC Distribution Width SD 46.6 fl (35.1-43.9); Red Blood Count 4.12 M/mm3 (4.2-5.4); White Blood Count 7.8 K/mm3 (4.4-11.0)
[2019-05-07 06:14] LABS: ALB/GLOB Ratio 0.7 RATIO (0.9-2.4); AST(SGOT) 59 U/L (15-37); Alanine Aminotransfer ALT/SGPT 52 U/L (13-56); Albumin, Serum 2.5 g/dL (3.2-5.0); Alkaline Phosphatase 194 U/L (45-117); Anion Gap 8 (5-15); BUN 9 mg/dL (7-18); BUN/Creat Ratio 18.6 RATIO (10-20); Calcium,Total 8.1 mg/dL (8.5-10.1); Chloride 105 mmol/L (98-107); Creatinine, Serum 0.48 mg/dL (0.55-1.02); EST Glomerular Filtration Rate 147 mL/min (>60); Est Glom Filt Rate - Afr Amer 177 mL/min (>60); Estimated Creatinine Clearance 117.06 ml/min; Globulin 3.7 g/dL (2.2-4.2); Glucose 245 mg/dL (74-106); Magnesium 1.8 mg/dL (1.6-2.6); Potassium 4.3 mmol/L (3.5-5.1); Protein, Total 6.2 g/dL (6.4-8.2); Sodium Level 138 mmol/L (136-145)
[2019-05-07] MEDS: Albuterol 2.5 MG/3 ML VIAL.NEB. INHALATION (06:51)
[2019-05-07] MEDS: Budesonide Respules 0.5 MG/2 ML AMPUL.NEB. INHALATION (06:51)
[2019-05-07 07:36] LABS: Bedside Glucose 308 mg/dL (70-110)
[2019-05-07] MEDS: Insulin NPH Human 100 UNITS/ML PEN 38 UNITS SC (08:49)
[2019-05-07] MEDS: Insulin Lispro 100 UNIT/ML INSULN.PEN 30 UNIT SC (08:51)
[2019-05-07] MEDS: Insulin Lispro 100 UNIT/ML INSULN.PEN SC (08:52)
[2019-05-07] MEDS: Aspirin 81 MG TAB.CHEW PO (08:59)
[2019-05-07] MEDS: Venlafaxine XR 75 MG Capsule 225 MG PO (09:01)
[2019-05-07] MEDS: Clopidogrel Bisulfate 75 MG Tablet PO (09:03)
[2019-05-07] MEDS: Pantoprazole Sodium 40 MG Tablet PO (09:05)
[2019-05-07] MEDS: buPROPion (XL) 300 MG TABLET.XL PO (09:05)
[2019-05-07] MEDS: Lisinopril 40 MG Tablet PO (09:06)
[2019-05-07] MEDS: Carvedilol 25 MG Tablet 50 MG PO (09:11)
--- NOTE | 2019-05-07 10:56 | PCM.PN.CARD ---
Subjectve: The patient is awake and alert. She states she still has some residual left upper chest tenderness to palpation. Otherwise she states she is feeling better. Objective: Vital Signs Temp Pulse Resp BP Pulse Ox 98.0 F 86 18 128/87 H 97 05/07/19 08:00 05/07/19 09:00 05/07/19 09:00 05/07/19 09:00 05/07/19 09:00 Oxygen Flow Rate (L/min) 2 Oxygen Delivery Method Room Air Weight: 310 lb Body Mass Index (BMI) 56.7 Finger Stick Blood Glucose 328 Intake and Output for Last 24 Hours 05/05/19 05/06/19 05/07/19 23:59 23:59 23:59 Intake Total 3138.33 / 3138.33 0 / 240 360 / 360 Output Total 500 / 500 300 / 300 Balance 3138.33 / 3138.33 -500 / -260 60 / 60 General: Awake, Alert, Oriented x 3, Cooperative, No Acute Distress, Obese HEENT: Atraumatic, Normocephalic, PERRL, EOMI, Sclera Non Icteric Oral: Moist Mucosa Neck: Supple, Good ROM, No JVD Lungs: Clear to auscultation Cardiovascular: Regular Rhythm, Normal S1, Normal S2 Vascular: Normal Radial Pulses Abdomen: Bowel Sounds Present, Soft, Non Tender Extremities: No edema Neurological: No Focal Motor or Sensory Deficit Psych/Mental Status: Appropriate 05/07/19 05:30: WBC 7.8, RBC 4.12 L, Hgb 13.3, Hct 39.0, MCV 94.7, MCH 32.3 H, MCHC 34.1, Plt Count 188, MPV 10.2 05/07/19 05:30: Sodium 138, Potassium 4.3, Chloride 105, Carbon Dioxide 25.0, Anion Gap 8, BUN 9, Creatinine 0.48 L, Est GFR (MDRD) Af Amer 177, Est GFR (MDRD) Non-Af 147, BUN/Creatinine Ratio 18.6, Glucose 245 H, Calcium 8.1 L, Magnesium 1.8, Total Bilirubin 0.40 Rhythm: Sinus rhythm EKG: Sinus rhythm; no acute ECG changes Medical Necessity - Tobacco Use Smoking Status: Former smoker Tobacco Use: Non-smoker Assessment/Plan 1. CAD status post remote PCI and now status post repeat PCI The patient has been undergoing evaluation care for her underlying coronary artery disease process. She has had multiple percutaneous interventions. At the present time she appears to be recuperating from her most recent PCI without obvious adverse events. She should continue medical therapy. This includes agents such as her aspirin, antiplatelet agents, nitrates as needed, beta-blockers, lipid-lowering agents, etc. She will continue with outpatient cardiovascular follow-up with her primary sales and service associate. 2. Hyperlipidemia She will continue medical management. 3. Hypertension She will need to monitor her blood pressures. Her blood pressure medications can be adjusted as needed. 4. Diabetes mellitus She will continue under evaluation by her primary care physician. 5. GERD She does have a history of GERD. Again she will continue evaluation care by her primary care physician. 6. Hypothyroidism She we will continue evaluation care by her primary care physician. 7. Obesity She will need to continue her evaluation care for this as deemed appropriate. Hopefully over time she will be able to decrease her weight which would benefit her multiple medical issues. 8. Noncardiac chest discomfort She does have residual chest discomfort. This appears to be over her left chest. This is reproducible with palpation. She states overall it has been better than before. This will need continued evaluation care by her other physicians. Comment: The patient's case was discussed and reviewed with the patient and Dr. Rouse. This note was generated using a voice recognition system and there may be incorrect words, spelling or punctuation that were not noted when reviewing the office note prior to saving.
--- NOTE | 2019-05-07 11:46 | DCINST_ITS ---
- Discharge Diagnoses Current Active Problems: Current Active and Chronic Problems (Last Updated 05/06/19 @ 11:35 by Noe Rouse MD) Chest pain (Acute) Diabetes mellitus, type II (Chronic) You will use the following diet at home:: Calorie/Carbohydrate Controlled (specify 1200, 1400, etc) - 1800 dee / day, Cardiac Your food should be the consistency of: Regular Your liquids should be the consistency of: Regular/Thin Discharge Activity: Return to Normal Activity Allergies/Adverse Reactions: Allergies metformin [From Glucophage] Allergy (Intermediate, Verified 04/25/19 11:43) Unknown Medications to take at Discharge Aspirin [Aspirin, Baby] 81 mg PO DAILY@0800 06/11/15 Clopidogrel Bisulfate [Plavix] 75 mg PO DAILY 06/11/15 Lisinopril [Zestril] 40 mg PO DAILY 06/11/15 Albuterol Inhaler [Ventolin Hfa] 1 - 2 puff INHALATION Q4H PRN PRN #1 inhaler 10/15/15 Pantoprazole Sodium [Protonix] 40 mg PO DAILY 09/23/16 cycloBENZAPRine HCl [Flexeril] 10 mg PO TID PRN PRN #14 tablet 01/09/18 Ondansetron [Zofran Odt] 4 mg PO Q8H PRN PRN #10 tablet 03/07/18 ALPRAZolam [Xanax] 1 mg PO QHS 08/18/18 Venlafaxine XR [Effexor Xr] 150 mg PO DAILY 08/18/18 Atorvastatin Calcium [Lipitor] 80 mg PO QHS #60 tablet 08/20/18 Bupropion HCl [Bupropion Xl] 300 mg PO DAILY 05/04/19 Carvedilol [Coreg (Beta Monisha)] 50 mg PO BID 05/04/19 Levothyroxine Sodium [Synthroid] 25 mcg PO DAILY 05/04/19 Levothyroxine Sodium [Synthroid] 200 mcg PO DAILY 05/04/19 Venlafaxine HCl [Venlafaxine HCl ER] 75 mg PO DAILY 05/04/19 Budesonide/Formoterol 160/4.5 [Symbicort 160/4.5 Mcg Inhaler (SP)] 2 puff PO PRN PRN 05/07/19 Insulin NPH Human [Humulin N Pen] 38 units SUBCUT BIDAC pen 05/07/19 Insulin Regular, Human [Novolin R] 28 units SUBCUT TIDCM 05/07/19 Primary Care Physician: Carlotta Galindo MD [Primary Care Provider] - Please follow up with your Primary Care Physician in: 1-2 weeks Test Results: Test results from this visit will be discussed in further detail at your follow- up appointment, if applicable. Please Follow Up With: Cardiology - Your own When: 1-2 weeks Proposed Discharge Date: 05/07/19
--- NOTE | 2019-05-07 14:04 | PCM.DC.SUM ---
<Zach Maldonado - Last Filed: 05/07/19 14:47> Discharge Date and Diagnosis Date of Admission: 05/04/19 Date of Discharge: 05/07/19 - Primary Discharge Diagnosis Chest pain - CAD s/p PCI of D1 (RAYMUNDO), prior PCI x5 DMt2 Left shoulder musculoskeletal pain Ongoing nicotine abuse Chronic lumbar spinal pain Morbid obesity Anx/depression HTN HLD Hypothyroidism GEOVANI with qhs CPAP GERD - Secondary Discharge Diagnosis Chronic Problems (Last Updated 05/06/19 @ 11:35 by Noe Rouse MD) Diabetes mellitus, type II (Chronic) Stented coronary artery (Chronic) 2.5 x 12 Elunir RAYMUNDO to D1 05/06/19; RAYMUNDO to distal diagonal and distal RCA 08/12/18; RAYMUNDO RCA 04/18/2010; RAYMUNDO LAD 11/25/2002 (all were done @ [facility] in [place], [place]) Atherosclerotic heart disease of [place] coronary artery without angina pectoris (Chronic) Non obstructive coronary arteries; Widely patent recently placed DIAG and distal RCA stents. Non obstructive mid LAD just distal to DIAG branch as well as distal RCA. Pt's symptoms are atypical for angina and degree of chest pain is out of proportion to CAD found per cath 08/19/[address] Huerta History of left heart catheterization (Chronic 08/19/18) Non obstructive coronary arteries; Widely patent recently placed DIAG and distal RCA stents. Non obstructive mid LAD just distal to DIAG branch as well as distal RCA 08/19/18; 12/09/12 Sleep-disordered breathing (Chronic) Essential hypertension (Chronic) Hypercholesterolemia (Chronic) Tobacco use (Chronic) Morbid obesity (Chronic) Hypothyroidism (Chronic) GERD (gastroesophageal reflux disease) (Chronic) Asthma (Chronic) DM (diabetes mellitus), type 1 (Chronic) Hospital Course and Treatment Imaging Results: RAD/Chest 1 View (Portable) IMPRESSION: No acute cardiopulmonary process. CT/CTA Chest W/WO Contrast IMPRESSION: No demonstrated pulmonary embolism or arterial dissection. No acute cardiopulmonary process. Stress Test: Interpretation: Rest and stress SPECT Cardiolite nuclear imaging status post realignment, normalization, and attenuation correction demonstrate no evidence of significant ischemia or infarction involving large areas of myocardium. Gated images reveal no significant regional wall motion abnormalities. The reported LVEF is 60 %. Impression: 1. There is no evidence of significant ischemia or infarction. 2. Estimated ejection fraction is 60%. Left heart Cath: CONCLUSIONS CAD as described with patent prior stents. Preserved EF. No significant or MR. Successful PCI of D1 with RAYMUNDO. RECOMMENDATIONS Follow up with primary dough sheeter FELICIA Indefinitley Plavix for at least 12 months Consultations 05/04/19 23:28 Consult: Onc/Wound/feed mill operator Routine Comment: CARDIOLOGY : Jazmine Miranda Operations: None Procedures: Cardiac catheterization, Stress test Summary of Care Provided: Hospital course: The patient is a 43 year old F with pmhx of ongoing nicotine abuse, CAD with prior stents, morbid obesity, type 2 diabetes, anxiety and depression, hypertension, hyperlipidemia, hypothyroidism, GERD, obstructive sleep apnea on CPAP nightly, who presented to the emergency room with complaints of left-sided chest pain with radiation into the left shoulder and arm she had recently had a stent in August of this year 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 A follow-up catheterization was done after this was treated with patent arteries. She now however has midsternal and left-sided chest pain 7-8 out of 10. She had negative EKG, negative troponin, negative CTA of the chest. She was admitted for chest pain work-up. Is maintained on telemetry overnight with no events on telemetry. Troponin was negative x3. Stress test was negative the following day. She continued to have ongoing chest pain with radiation into the left arm so cardiology was consulted. Cardiology decided to take her for heart catheterization the following day. This was performed and she did have significant stenosis and underwent a PTCA of diagonal 1. Following this her chest pain improved. She did have ongoing shoulder pain the following day which was reproducible with palpation was felt to be muscular skeletal. She was discharged home in stable condition and will need follow-up with her PCP in 1 to 2 weeks, follow-up with cardiology as directed-she follows with a dough sheeter in [place] routinely. Patient is planning to pursue bariatric surgery and is pursuing ongoing weight loss. She also needs complete smoking cessation as she continues to smoke at least 2 to 3 cigarettes/day. She is using Chantix for this and reports ongoing nightmares at home which I have advised her to discuss with her PCP as an outpatient. This patient was seen by Zach Maldonado PA-C under the supervision of Doctor Rouse. [] - Physical Exam Vitals/I&O's: Vital Signs Temp Pulse Resp BP Pulse Ox 98.0 F 90 20 H 133/86 H 96 05/07/19 08:00 05/07/19 10:30 05/07/19 10:30 05/07/19 10:30 05/07/19 10:30 Oxygen Flow Rate (L/min) 2 Oxygen Delivery Method Room Air Weight: 310 lb Body Mass Index (BMI) 56.7 Finger Stick Blood Glucose 328 Intake and Output for Last 24 Hours 05/05/19 05/06/19 05/07/19 23:59 23:59 23:59 Intake Total 3138.33 / 3138.33 0 / 240 360 / 360 Output Total 500 / 500 300 / 300 Balance 3138.33 / 3138.33 -500 / -260 60 / 60 General: Alert, Oriented x3, Cooperative HEENT: Atraumatic, PERRLA, EOMI, Normocephalic Neck: Supple, No JVD, Negative Carotid Bruits Lungs: Clear to auscultation, Normal air movement Cardiovascular: Regular rate, No murmurs Abdomen: Bowel Sounds Present, Soft, Non Tender, Obese Extremities: Capillary Refill Less than 3 Seconds, Edema - Trace bilateral lower extremity edema Skin: No rashes, No breakdown Musculoskeletal: No Tenderness to Palpation of Joints or Extremities, - - Left upper chest and shoulder tenderness with palpation. ROM intact. No crepitation. Neurological: Cranial nerves II-XII grossly intact Psych/Mental Status: Normal Affect, Appropriate, Alert and oriented to time, place, person, mood and affect Laboratory Results 05/06/19 17:00: POC Glucose 116 H 05/06/19 18:51: POC Glucose 63 L 05/06/19 21:54: POC Glucose 94 05/07/19 05:30: WBC 7.8, RBC 4.12 L, Hgb 13.3, Hct 39.0, MCV 94.7, MCH 32.3 H, MCHC 34.1, RDW Std Deviation 46.6 H, RDW Coeff of Whitney 13.6, Plt Count 188, MPV 10.2 05/07/19 05:30: Sodium 138, Potassium 4.3, Chloride 105, Carbon Dioxide 25.0, Anion Gap 8, BUN 9, Creatinine 0.48 L, Estim Creat Clear Calc 117.06, Est GFR (MDRD) Af Amer 177, Est GFR (MDRD) Non-Af 147, BUN/Creatinine Ratio 18.6, Glucose 245 H, Calcium 8.1 L, Magnesium 1.8, Total Bilirubin 0.40, AST 59 H, ALT 52, Alkaline Phosphatase 194 H, Total Protein 6.2 L, Albumin 2.5 L, Globulin 3.7, Albumin/Globulin Ratio 0.7 L 05/07/19 07:03: POC Glucose 308 H Discharge Diet: Low fat/ Low Cholesterol, 1800 Calorie Control Diet, 2000 mg Sodium Diet Discharge Activity: Return to Normal Activity Home Medications: Medications to take at Discharge Aspirin [Aspirin, Baby] 81 mg PO DAILY@0800 06/11/15 Clopidogrel Bisulfate [Plavix] 75 mg PO DAILY 06/11/15 Lisinopril [Zestril] 40 mg PO DAILY 06/11/15 Albuterol Inhaler [Ventolin Hfa] 1 - 2 puff INHALATION Q4H PRN PRN #1 inhaler 10/15/15 Pantoprazole Sodium [Protonix] 40 mg PO DAILY 09/23/16 cycloBENZAPRine HCl [Flexeril] 10 mg PO TID PRN PRN #14 tablet 01/09/18 Ondansetron [Zofran Odt] 4 mg PO Q8H PRN PRN #10 tablet 03/07/18 ALPRAZolam [Xanax] 1 mg PO QHS 08/18/18 Venlafaxine XR [Effexor Xr] 150 mg PO DAILY 08/18/18 Atorvastatin Calcium [Lipitor] 80 mg PO QHS #60 tablet 08/20/18 Bupropion HCl [Bupropion Xl] 300 mg PO DAILY 05/04/19 Carvedilol [Coreg (Beta Monisha)] 50 mg PO BID 05/04/19 Levothyroxine Sodium [Synthroid] 25 mcg PO DAILY 05/04/19 Levothyroxine Sodium [Synthroid] 200 mcg PO DAILY 05/04/19 Venlafaxine HCl [Venlafaxine HCl ER] 75 mg PO DAILY 05/04/19 Budesonide/Formoterol 160/4.5 [Symbicort 160/4.5 Mcg Inhaler (SP)] 2 puff PO PRN PRN 05/07/19 Insulin NPH Human [Humulin N Pen] 38 units SUBCUT BIDAC pen 05/07/19 Insulin Regular, Human [Novolin R] 28 units SUBCUT TIDCM 05/07/19 Primary Care Physician: Carlotta Galindo MD [Primary Care Provider] - Please follow up with your Primary Care Physician in: 1-2 weeks Please Follow Up With: Cardiology - Your own When: 1-2 weeks Disposition: Home Minutes spent on discharge:: 35 Patient Condition:: Stable Medical Necessity - Tobacco Use Smoking Status: Former smoker Tobacco Use: Non-smoker Meaningful Use Info Meaningful Use Diagnoses (Choose all that apply): None applicable <Noe Rouse - Last Filed: 05/08/19 11:11> Discharge Date and Diagnosis - Secondary Discharge Diagnosis Chronic Problems (Last Updated 05/06/19 @ 11:35 by Noe Rouse MD) Diabetes mellitus, type II (Chronic) Stented coronary artery (Chronic) 2.5 x 12 Elunir RAYMUNDO to D1 05/06/19; RAYMUNDO to distal diagonal and distal RCA 08/12/18; RAYMUNDO RCA 04/18/2010; RAYMUNDO LAD 11/25/2002 (all were done @ [facility] in [place], [place]) Atherosclerotic heart disease of [place] coronary artery without angina pectoris (Chronic) Non obstructive coronary arteries; Widely patent recently placed DIAG and distal RCA stents. Non obstructive mid LAD just distal to DIAG branch as well as distal RCA. Pt's symptoms are atypical for angina and degree of chest pain is out of proportion to CAD found per cath 08/19/[address] Huerta History of left heart catheterization (Chronic 08/19/18) Non obstructive coronary arteries; Widely patent recently placed DIAG and distal RCA stents. Non obstructive mid LAD just distal to DIAG branch as well as distal RCA 08/19/18; 12/09/12 Sleep-disordered breathing (Chronic) Essential hypertension (Chronic) Hypercholesterolemia (Chronic) Tobacco use (Chronic) Morbid obesity (Chronic) Hypothyroidism (Chronic) GERD (gastroesophageal reflux disease) (Chronic) Asthma (Chronic) DM (diabetes mellitus), type 1 (Chronic) Hospital Course and Treatment Consultations 05/04/19 23:28 Consult: Onc/Wound/feed mill operator Routine Comment: Summary of Care Provided: Hospitalist note: Discharge summary above reviewed as well as physical examination and I concur with the above discharge treatment plan. Patient was admitted because of chest pain for evaluation. She has history of CAD status post stents. Her EKG revealed no evidence of acute ischemic changes. Her troponin was negative x3. Her chest x-ray showed no acute findings. CTA chest done for elevated d-dimer and showed no evidence of PE or dissection, no other acute findings. Patient underwent nuclear stress test that was reported as negative without evidence of stress-induced myocardial ischemia with ejection fraction of 60%. Patient insisted to be seen by cardiology. Cardiology consulted and patient was taken for cardiac catheterization, found to have 80% stenosis of the proximal RCA status post PTCA/RAYMUNDO. Patient was treated with aspirin, Plavix, statins, beta-blockers and JIMI inhibitors. After stent placement, patient's chest pain improved but she remained complaining of mild chest pain with localized tenderness. Her vitals were stable. Her routine blood work was unremarkable. Her ongoing chest pain likely due to musculoskeletal pain. He was discharged home in a stable medical condition, discharged on aspirin, statins, beta-blockers, JIMI inhibitors and Plavix, plan to follow-up with cardiology in 1 to 2 weeks, follow-up with PCP in 1 week. This note was generated with [employer]leaf dictation software. It may contain incorrect words, spelling, and punctuation that were not noted in checking the note before signing. - Physical Exam Vitals/I&O's: Vital Signs Temp Pulse Resp BP Pulse Ox 98.0 F 90 20 H 133/86 H 96 05/07/19 08:00 05/07/19 10:30 05/07/19 10:30 05/07/19 10:30 05/07/19 10:30 Oxygen Flow Rate (L/min) 2 Oxygen Delivery Method Room Air Weight: 310 lb Body Mass Index (BMI) 56.7 Finger Stick Blood Glucose 328 Intake and Output for Last 24 Hours 05/05/19 05/06/19 05/07/19 23:59 23:59 23:59 Intake Total 3138.33 / 3138.33 0 / 240 360 / 360 Output Total 500 / 500 300 / 300 Balance 3138.33 / 3138.33 -500 / -260 60 / 60 Laboratory Results 05/06/19 18:51: POC Glucose 63 L 05/06/19 21:54: POC Glucose 94 05/07/19 05:30: WBC 7.8, RBC 4.12 L, Hgb 13.3, Hct 39.0, MCV 94.7, MCH 32.3 H, MCHC 34.1, RDW Std Deviation 46.6 H, RDW Coeff of Whitney 13.6, Plt Count 188, MPV 10.2 05/07/19 05:30: Sodium 138, Potassium 4.3, Chloride 105, Carbon Dioxide 25.0, Anion Gap 8, BUN 9, Creatinine 0.48 L, Estim Creat Clear Calc 117.06, Est GFR (MDRD) Af Amer 177, Est GFR (MDRD) Non-Af 147, BUN/Creatinine Ratio 18.6, Glucose 245 H, Calcium 8.1 L, Magnesium 1.8, Total Bilirubin 0.40, AST 59 H, ALT 52, Alkaline Phosphatase 194 H, Total Protein 6.2 L, Albumin 2.5 L, Globulin 3.7, Albumin/Globulin Ratio 0.7 L 05/07/19 07:03: POC Glucose 308 H Disposition: Home Minutes spent on discharge:: 25 Patient Condition:: Stable Meaningful Use Info Meaningful Use Diagnoses (Choose all that apply): None applicable Code Visit OBSV E&M: 14477 Observation care discharge
== END 2019-05-07 11:55 | disposition home or self-care (01) ==
LOC: ED 20:00 → PCU 23:16 → ICU 05-06 10:44
PROVIDERS: Specialist; Admitting Provider Family Medicine; Emergency Provider Emergency Medicine; Family Provider Internal Medicine; PCP Internal Medicine; Referring Provider Family Medicine; Visit Provider Hospitalist
DX: I25.110 Atherosclerotic heart disease of native coronary artery with unstable angina pectoris (principal); K21.9 Gastro-esophageal reflux disease without esophagitis; G47.33 Obstructive sleep apnea (adult) (pediatric); E03.9 Hypothyroidism, unspecified; E66.01 Morbid (severe) obesity due to excess calories; E78.5 Hyperlipidemia, unspecified; F32.9 Major depressive disorder, single episode, unspecified; F41.9 Anxiety disorder, unspecified; N60.82 Other benign mammary dysplasias of left breast; E11.9 Type 2 diabetes mellitus without complications; I10 Essential (primary) hypertension; J45.909 Unspecified asthma, uncomplicated; Z79.02 Long term (current) use of antithrombotics/antiplatelets; Z79.82 Long term (current) use of aspirin; Z79.899 Other long term (current) drug therapy; Z79.4 Long term (current) use of insulin; Z86.718 Personal history of other venous thrombosis and embolism; Z95.5 Presence of coronary angioplasty implant and graft; Z87.891 Personal history of nicotine dependence; Z68.43 Body mass index [BMI] 50.0-59.9, adult; Z71.3 Dietary counseling and surveillance
CPT/HCPCS: 36415; 71045; 71275; 78452; 80048; 80053; 80061; 82962; 83036; 83735; 84484; 84703; 85025; 85027; 85379; 92928; 93005; 93017; 93458; 94640; 96361; 96372; 96374; 96375; 96376; 97802; 99152; 99153; 99218; 99285; A9500; J7030; J7040; Q9967; A4216; C1769; C1874; C1887; C1894; C9600; G0378; J2405; J2785

== ENCOUNTER 2019-06-01 11:43 | Emergency (ER) | payer MEDICARE, MEDICAID, SELFPAY ==
[2019-05-04 23:41] VITALS: BMI 56.7
[2019-05-06 13:18] VITALS: BMI 56.7
[2019-06-01 11:44] VITALS: BP 166/99; PULSE 90; RESP 20; TEMP 36.6; O2SAT 98; BMI 51.6
[2019-06-01 11:57] VITALS: PULSE 92; RESP 16; O2SAT 98
[2019-06-01] MEDS: HYDROmorphone 1 MG/ML Syringe IM (12:06)
[2019-06-01] MEDS: Ondansetron 4 MG/2 ML Vial IM (12:06)
--- NOTE | 2019-06-01 12:15 | RAD_ITS ---
STUDY: X-RAY - LUMBAR SPINE REASON FOR EXAM: Female, 43 years old. TECHNIQUE: 3 view(s) of the lumbar spine were obtained. COMPARISON: January 09, 2018 FINDINGS: Normal lumbar lordosis. There is no substantial scoliosis. There is a normal alignment of the vertebrae. There is vacuum phenomenon between L2-L3. There is hardware with interpedicular screws transfixing the spine from the level of L4 down to S1 with evidence of paraspinal bone grafting. There is second degree spondylolisthesis of L5 on S1. The spinous and transverse processes as well as the pedicles are intact. Otherwise the vertebral bodies and intervertebral discs are maintained The soft tissue structures are unremarkable. There is calcification of the abdominal aorta. RAD/Lumbar Spine 2 or 3 Views IMPRESSION: Lumbar fixation from L4 down to S1 with still noted second-degree spondylolisthesis of L5 on S1. Examination is unchanged since January 09, 2018 Electronically Signed: Jennifer Rosales, at 12:41 EST Tel , Service support ,
--- NOTE | 2019-06-01 12:53 | ED.DCSUM_ITS ---
- ER Visit Summary Date of Service: 06/01/19 Chief Complaint: [Back pain] History of Present Illness: The patient is a 43 F [presents to the emergency department with a week and a half history of low back pain. Patient has had history of 2 back surgeries with a lumbar fusion. Patient sees a orthopedic princess geon out of [place] and has been about a year since she saw the surgeon. Patient describes the pain is in in her low back and at times will radiate into both legs. She is had intermittent numbness to the legs. She denies any weakness in extremities. She denies any change in bowel bladder function. She denies any fever. She denies dysuria. Patient did not have any trauma to her back but she is concerned that maybe her hardware may have shifted as she has had that happen one other time.] Physical Examination: [HEENT-PERRLA, EOMI. Cranial nerves II through XII tushar sly intact. TMs clear. Mucous membranes moist. No adenopathy. Cardiovascular-regular rate and rhythm without murmur or ectopy Lungs-clear to auscultation, chest wall stable without crepitus or subcu emphysema Abdomen-normoactive bowel sounds, soft, nontender, no rebound or rigidity, no peritoneal signs. Back exam-patient has some mild discomfort over the lower lumbar spine as well as the left lumbar paraspinal musculature that seems to reproduce her pain. Patient has negative straight leg raises. Deep tendon reflexes are plus 2 out of 4 bilaterally at the patella and Achilles. Patient has normal L5 extension bilaterally. Patient has normal sensation to light touch. Extremities-intact ?4, normal range of motion, normal pulses, atraumatic] Test Results: [Sprays of the lumbar spine showed fusion of L4-S1 with no evidence of fracture dislocation. The study is unchanged from x-ray study in January 2018.] Emergency Department Course and Treatment: [She was medicated Dilaudid 1 mg IM as well as Zofran 4 mg IM and she had good pain relief.] Treatment Plan: [Patient will be given a prescription for a few [place] for pain and advised to follow-up with her back surgeon within next 3 to 5 days. Patient advised to return if worsening pain, weakness in extremities, change in bowel bladder function, or conditions worsen anyway.] Disposition: [Discharged home in stable condition.] Impression: [Atraumatic low back pain] This note was generated with [employer] dictation software. It may contain incorrect words, spelling, and punctuation that were not noted in review of the chart prior to signing ED Disposition - Plan for ED Patient: Referrals: Carlotta Galindo MD [Primary Care Provider] -
--- NOTE | 2019-06-01 12:56 | DCINST.ED_ITS ---
ED Disposition - Plan for ED Patient: Instructions: BACK PAIN (Acute or Chronic) Prescriptions: Hydrocodone Bitart/Apap 5-325 [[place] 5MG-325MG] 1 tab PO Q4H PRN PRN 2 Days #20 tab PRN Reason: Pain Prescription Printed Referrals: Carlotta Galindo MD [Primary Care Provider] - 3-5 Days Additional Instructions: See your back surgeon in 3-5 days
[2019-06-01 13:02] VITALS: BP 164/108; PULSE 96; RESP 16; O2SAT 98
== END 2019-06-01 13:03 | disposition home or self-care (01) ==
LOC: ED 12:15
PROVIDERS: Emergency Provider Emergency Medicine; Family Provider Internal Medicine; PCP Internal Medicine
DX: M54.5 Low back pain (principal); I25.10 Atherosclerotic heart disease of native coronary artery without angina pectoris; I10 Essential (primary) hypertension; E11.9 Type 2 diabetes mellitus without complications; E03.9 Hypothyroidism, unspecified; J45.909 Unspecified asthma, uncomplicated; F17.200 Nicotine dependence, unspecified, uncomplicated; Z98.1 Arthrodesis status; Z79.82 Long term (current) use of aspirin; Z79.4 Long term (current) use of insulin; Z79.899 Other long term (current) drug therapy
CPT/HCPCS: 72100; 96372; 99282; J2405

== ENCOUNTER 2019-07-19 13:27 | Observation (INO) | payer MEDICARE, MEDICAID, SELFPAY ==
[2019-05-06 13:18] VITALS: BMI 56.7
[2019-07-19] VITALS (11 sets, daily range): BP systolic 114–153; BP diastolic 75–116; PULSE 99–116; RESP 16–24; TEMP 36.4–36.8; O2SAT 97–99; BMI 54.1; BMI 53.3; BMI 53.4
--- NOTE | 2019-07-19 14:00 | EKG12_ITS ---
Test Reason : Blood Pressure : / mmHG Vent. Rate : 105 BPM Atrial Rate : 105 BPM P-R Int : 168 ms QRS Dur : 062 ms QT Int : 340 ms P-R-T Axes : 028 000 024 degrees QTc Int : 449 ms Sinus tachycardia with occasional Premature ventricular complexes Septal infarct , age undetermined Abnormal ECG When compared with ECG of 19-JUL-2019 13:26, MANUAL COMPARISON REQUIRED, DATA IS UNCONFIRMED Confirmed by LOU MARX ([id number]), editor index DAVID GAGNON ([id number]) on 07/21/2019 8:50:08 AM Referred By: Shanti Infante Confirmed By:LOU MARX
--- NOTE | 2019-07-19 14:03 | RAD_ITS ---
STUDY: X-RAY CHEST REASON FOR EXAM: Female, 43 years old. CHEST PAIN TECHNIQUE: Single AP portable view of the chest. COMPARISON: 05/04/2019 FINDINGS: EKG leads overlie the chest The lungs are clear and expanded. There is no demonstrated pleural abnormality. Normal size heart. Normal mediastinum and larisa. Normal visualized pulmonary arteries. Normal visualized aortic arch and descending thoracic aorta. Normal visualized thoracic spine. Normal visualized ribs, clavicles, and shoulders. There is no demonstrated abnormality of the visualized soft tissue structures of the upper abdomen. RAD/Chest 1 View (Portable) IMPRESSION: Normal x-ray examination of the chest. Electronically Signed: Wellington Grimes MD at 14:22 EST , Service support ,
--- NOTE | 2019-07-19 14:06 | ED.VIS.GEN ---
History of Present Illness Chief Complaint: Chest Pain Detail of Chief Complaint: Chest heaviness, upper extremity discomfort, dyspnea on exertion Informant: Patient Onset: Weeks Context: Sudden Onset - Proximately 1 week Timing: Continuous, Waxes and wanes Quality: Pain in extremities and pressure in chest Location: Right shoulder, left upper extremity and midsternal Current Severity: Mild Maximum Severity: Severe Worsened by: Activity Relieved by: Better with rest Associated Symptoms: There has been associated nausea, dyspnea, dyspnea exertion and diaphoresis Narrative: Patient is a middle-age woman with multiple risk factors for coronary disease and known coronary disease. She states she has 6 stents. Her most recent admission was May. She had a stress test that was normal. She felt this was her heart and demanded a cardiac catheterization. The cardiac catheterization revealed 30 [place] stenosis of the ostial LAD, previous patent stent proximal LAD and an 80% stenosis of the first diagonal. There was minimal luminal irregularities of the circumflex artery with 50% stenosis of the proximal OM1. There was an in-stent stenosis of 25% proximal RCA and 50% stenosis of the distal RCA. Patient had successful anterior plasty and placement of stent in the first diagonal. Patient states her symptoms are similar to the discomfort she had when she was admitted in May. Is presently having discomfort. She has not taken anything for it. He states if she walks 10 to 20 feet she becomes short of breath and has increased heaviness in her chest. She denies black or maroon stool. She denies hematemesis. There is a remote history of DVT after procedure. She is presently on no anticoagulant. She states she is compliant with her medication. Prior similar symptoms: Yes Recent Illness/Hospitalization: Yes - May 2019 - Past Medical History (1) Atherosclerotic heart disease of [place] coronary artery without angina pectoris Status: Chronic Comment: Non obstructive coronary arteries; Widely patent recently placed DIAG and distal RCA stents. Non obstructive mid LAD just distal to DIAG branch as well as distal RCA. Pt's symptoms are atypical for angina and degree of chest pain is out of proportion to CAD found per cath 08/19/[address] Huerta (2) DM (diabetes mellitus), type 1 Status: Chronic (3) Essential hypertension Status: Chronic (4) GERD (gastroesophageal reflux disease) Status: Chronic (5) History of left heart catheterization Status: Chronic Comment: Non obstructive coronary arteries; Widely patent recently placed DIAG and distal RCA stents. Non obstructive mid LAD just distal to DIAG branch as well as distal RCA 08/19/18; 12/09/12 (6) Hypercholesterolemia Status: Chronic (7) Hypothyroidism Status: Chronic (8) Morbid obesity Status: Chronic (9) Sleep-disordered breathing Status: Chronic (10) Stented coronary artery Status: Chronic Comment: 2.5 x 12 [place] RAYMUNDO to D1 05/06/19; RAYMUNDO to distal diagonal and distal RCA 08/12/18; RAYMUNDO RCA 04/18/2010; RAYMUNDO LAD 11/25/2002 (all were done @ [facility] in [place], [place]) (11) Tobacco use Status: Chronic Past Medical History - Allergies and Home Meds Allergies/Adverse Reactions: Allergies metformin [From Glucophage] Adverse Reaction (Intermediate, Verified 07/19/19 13:31) Diarrhea Primary Care Physician: Carlotta Galindo MD [Primary Care Provider] - Prior records reviewed: Yes Surgical History: angioplasty - PTCA ?4 at [facility], cholecystectomy, - - 5 stents in the past, 2 back surgeries with hardware of the lumbar spine, carpal tunnel, tonsils, section, bilateral tubal ligation, I&D of breast abscesses, cervical conization Lives: Alone Smoking Status: Current every day smoker Alcohol: None Drugs: None - Family History Maternal Family History: Family History (Last Updated 09/10/18 @ 16:59 by Ladonna Stahl) Mother Cancer Father Hypertension COPD (chronic obstructive pulmonary disease) Daughter Factor V deficiency Grandmother Cancer COPD (chronic obstructive pulmonary disease) Family History: Reports: Cancer, Diabetes, Heart Disease, Hypertension Paternal Family History: Family History (Last Updated 09/10/18 @ 16:59 by Ladonna Stahl) Mother Cancer Father Hypertension COPD (chronic obstructive pulmonary disease) Daughter Factor V deficiency Grandmother Cancer COPD (chronic obstructive pulmonary disease) Family History: Reports: Diabetes, Heart Disease, Hypertension, Pulmonary Disease Review of Systems General: Denies: Chills, Fever, Sweats Eyes: Denies: Visual changes - bilaterally, Blurred Vision - bilaterally, Diplopia ENT: Denies: Bilateral ear pain, Rhinorrhea, Sore throat Cardiovascular: Reports: Chest pain Respiratory: Reports: Dyspnea, Dyspnea on exertion Gastrointestinal: Reports: Nausea Genitourinary: Denies: Dysuria, Hematuria, Frequency Musculoskeletal: Denies: Back pain, Extremity Pain Skin: Denies: Rash, Wounds Neurological: Denies: Headache, Weakness, Numbness Hematologic: Denies: Easy bruising, Easy bleeding Physical Exam Vital Signs/Narrative: Vital Signs Temp Pulse Resp BP Pulse Ox 07/19/19 13:27 97.6 F L 99 24 H 153/95 H 99 Inital Vital Signs reviewed: Yes General: Well nourished, Well developed, Obese, No Acute Distress Head: Normocephalic, Atraumatic Eyes: Perrl, EOMI. Negative for: Pale conjunctiva, Scleral icterus ENT: Moist mucous membranes Neck: Supple Cardiovascular: Regular rate, Regular rhythm, No murmurs, Normal S1, Normal S2 Respiratory: No distress, CTA bilaterally, Chest nontender Abdomen: Soft, Nontender, Nondistended, Normal bowel sounds Rectal: Deferred Back: Nontender, Normal Inspection Extremities: Nontender, No edema Skin: Normal color, No rash, No Trauma. Negative for: Cyanosis, Diaphoresis Neurological: Alert, Oriented x3, Cranial nerves II-XII grossly intact, Normal Strength, Normal Sensation Psychological: Depressed Diagnostic/Tx/Re-eval Chest X-Ray - ED: 1 View, Read by ED Physician, Normal, Heart, Lungs, Mediastinum, Bony Structures, No Acute Disease Impressions Chest X-Ray 07/19/19 14:03 IMPRESSION: Normal x-ray examination of the chest. Electronically Signed: Wellington Grimes MD at 14:22 EST , Service support , 07/19/19 14:03 Chest 1 View (Portable) [RAD] Stat Laboratory Results 07/19/19 07/19/19 14:35 14:35 WBC 11.2 H RBC 4.45 Hgb 14.3 Hct 41.4 MCV 93.0 MCH 32.1 H MCHC 34.5 RDW Std Deviation 43.7 RDW Coeff of Whitney 13.0 Plt Count 248 MPV 10.1 Immature Gran % (Auto) 0.400 Neut % (Auto) 52.8 Lymph % (Auto) 36.0 [place] % (Auto) 6.5 Eos % (Auto) 3.8 Baso % (Auto) 0.5 Absolute Neuts (auto) 5.9 Absolute Lymphs (auto) 4.02 Nucleated RBC % 0 Differential Comment COMMENT Atypical Lymphocytes 1+ Reactive Lymphocytes 1+ Sodium 133 L Potassium 4.5 Chloride 102 Carbon Dioxide 25.0 Anion Gap 6 BUN 15 Creatinine 0.67 Estim Creat Clear Calc 91.56 Est GFR (MDRD) Af Amer 121 Est GFR (MDRD) Non-Af 100 BUN/Creatinine Ratio 22.3 H Glucose 361 H Calcium 8.7 Troponin I < 0.015 Patient's work-up is unremarkable. In light of her history will speak with cardiology. - Medical Decision Making Prior records and most recent cath report. To evaluate patient's symptoms EKG, chest x-ray and appropriate blood work were obtained to determine if patient has a STEMI, non-STEMI, unstable angina or noncardiac etiology of her symptoms. Case discussed Dr. Lucero. Recommendation is 23 observation. He will determine whether patient should go directly to cardiac catheterization. ED Disposition - Plan for ED Patient: Disposition: Acute Care Hospital [facility] Diagnosis: Exertional chest pain, History of coronary artery disease, Hypercholesterolemia, Essential hypertension Referrals: Carlotta Galindo MD [Primary Care Provider] -
[2019-07-19] MEDS: Aspirin 81 MG TAB.CHEW 324 MG PO (14:07)
[2019-07-19] MEDS: Nitroglycerin SL (ED/IMG/CATH) 0.4 MG TABLET SUBLINGUAL (14:07)
[2019-07-19 14:45] LABS: Absolute Lymphocyte Count 4.02 X10^3/uL (0.83-4.51); Absolute Neutrophil Count 5.9 X10^3/uL (2.0-7.7); Basophil# 0.06 X10^3/uL; Basophil% 0.5 % (0-1); Eosinophil# 0.43 X10^3/uL; Eosinophils% 3.8 % (0-5); Hematocrit 41.4 % (37-47); Hemoglobin 14.3 g/dL (12.0-15.0); Lymphocyte # 4.02 X10^3/ul (4.0); Mean Corp Hgb Conc 34.5 g/dL (32-36); Mean Corpuscular Hgb 32.1 pg (27.0-32.0); Mean Platelet Vol. 10.1 fl (6.2-12.0); Monocyte# 0.73 X10^3/uL; Monocyte% 6.5 % (0-10); NRBC Flagged by Analyzer 0 % (0-5); Neutrophil # 5.89 X10^3/uL (2.7-7.7); Neutrophil % 52.8 % (47-70); POSITIVE MORPHOLOGY YES; Platelet Count 248 K/mm3 (150-450); RBC Distribution Width SD 43.7 fl (35.1-43.9); Red Blood Count 4.45 M/mm3 (4.2-5.4); White Blood Count 11.2 K/mm3 (4.4-11.0)
[2019-07-19 14:54] LABS: Differential Indicated SCAN CRITERIA MET
[2019-07-19 15:02] LABS: Anion Gap 6 (5-15); BUN 15 mg/dL (7-18); BUN/Creat Ratio 22.3 RATIO (10-20); Calcium,Total 8.7 mg/dL (8.5-10.1); Chloride 102 mmol/L (98-107); Creatinine, Serum 0.67 mg/dL (0.55-1.02); EST Glomerular Filtration Rate 100 mL/min (>60); Est Glom Filt Rate - Afr Amer 121 mL/min (>60); Estimated Creatinine Clearance 91.56 ml/min; Glucose 361 mg/dL (74-106); Potassium 4.5 mmol/L (3.5-5.1); Sodium Level 133 mmol/L (136-145)
[2019-07-19] MEDS: Morphine 2 MG/ML Syringe IV ×3 (15:13→21:40)
[2019-07-19 15:14] LABS: Atypical Lymphocyte 1+ %; Reactive Lymphocyte 1+
--- NOTE | 2019-07-19 15:58 | HP.PCM_ITS ---
History of Present Illness Date of Admission: 07/19/19 Chief Complaint: chest pain, shortness of breath The patient is a 43 year old F with an extensive past medical history as listed. She was admitted through the ED on 07/19/2019 with a complaint of chest pain and shortness of breath which had been going on for about 2 weeks. Chest pain was pressure-like and retrosternal and radiated to both her left and right shoulders proceeds mainly to her left shoulders. Was aggravated by exertion and relieved by rest and she had associated shortness of breath which was aggravated by exertion and relieved by rest. She says she felt it was similar to how it was when she last came in and was found to have a blockage in a diagonal artery which needed stenting. She admitted to palpitations but denied any dizziness or lightheadedness and denied any abdominal pain, diarrhea or vomiting. She denied any pain or swelling in her lower extremities. Review of stems otherwise negative. Vitals in the ED was significant for tachycardia with heart rate of 105 and tachypnea with respiratory rate of 21. Blood pressure was 152/116 and temperature was 97.6. Chemistry essentially unremarkable and troponin was less than 0.015. CBC showed WBC of 11.2 and chest x-ray showed no acute cardiopulmonary process. EKG showed no acute ST changes. Of note, patient tells me that she thinks she had a clot in her left lower extremity in the past and states that she thinks it was when she had cardiac cath. She denies having been on any blood thinner though. Discussed with ED doctor about getting a CTA to rule out a PE. She has been admitted to be managed for chest pain rule out ACS. [] Past Medical History Past Medical History (Chronic Problems): Chronic Problems (Last Updated 05/06/19 @ 11:35 by Noe Rouse MD) History of coronary artery disease (Chronic) Diabetes mellitus, type II (Chronic) Stented coronary artery (Chronic) 2.5 x 12 Elunir RAYMUNDO to D1 05/06/19; RAYMUNDO to distal diagonal and distal RCA 08/12/18; RAYMUNDO RCA 04/18/2010; RAYMUNDO LAD 11/25/2002 (all were done @ [facility] in [place], [place]) Atherosclerotic heart disease of [place] coronary artery without angina pectoris (Chronic) Non obstructive coronary arteries; Widely patent recently placed DIAG and distal RCA stents. Non obstructive mid LAD just distal to DIAG branch as well as distal RCA. Pt's symptoms are atypical for angina and degree of chest pain is out of proportion to CAD found per cath 08/19/[address] Huerta History of left heart catheterization (Chronic 08/19/18) Non obstructive coronary arteries; Widely patent recently placed DIAG and distal RCA stents. Non obstructive mid LAD just distal to DIAG branch as well as distal RCA 08/19/18; 12/09/12 Sleep-disordered breathing (Chronic) Essential hypertension (Chronic) Hypercholesterolemia (Chronic) Tobacco use (Chronic) Morbid obesity (Chronic) Hypothyroidism (Chronic) GERD (gastroesophageal reflux disease) (Chronic) Asthma (Chronic) DM (diabetes mellitus), type 1 (Chronic) Medical History: Medical History (Last Updated 05/06/19 @ 11:35 by Noe Rouse MD) Atherosclerotic heart disease of [place] coronary artery without angina pectoris (Chronic) I25.10 Non obstructive coronary arteries; Widely patent recently placed DIAG and distal RCA stents. Non obstructive mid LAD just distal to DIAG branch as well as distal RCA. Pt's symptoms are atypical for angina and degree of chest pain is out of proportion to CAD found per cath 08/19/[address] Huerta Sleep-disordered breathing (Chronic) G47.30 Essential hypertension (Chronic) I10 Hypercholesterolemia (Chronic) E78.00 Tobacco use (Chronic) Z72.0 Morbid obesity (Chronic) E66.01 Hypothyroidism (Chronic) E03.9 GERD (gastroesophageal reflux disease) (Chronic) K21.9 Asthma (Chronic) J45.909 DM (diabetes mellitus), type 1 (Chronic) History of anxiety Z86.59 Allergies metformin [From Glucophage] Adverse Reaction (Intermediate, Verified 07/19/19 13:31) Diarrhea Home Medications: Ambulatory Orders Medication Instructions Recorded Aspirin [Aspirin, Baby] 81 mg PO DAILY@0800 06/11/15 Clopidogrel Bisulfate [Plavix] 75 mg PO DAILY 06/11/15 Lisinopril [Zestril] 40 mg PO DAILY 06/11/15 Albuterol Inhaler [Ventolin Hfa] 1 - 2 puff INHALATION Q4H PRN PRN 10/15/15 #1 inhaler Pantoprazole Sodium [Protonix] 40 mg PO DAILY 09/23/16 Ondansetron [Zofran Odt] 4 mg PO Q8H PRN PRN #10 tablet 03/07/18 ALPRAZolam [Xanax] 1 mg PO QHS PRN 08/18/18 Atorvastatin Calcium [Lipitor] 80 mg PO QHS #60 tablet 08/20/18 Bupropion HCl [Bupropion Xl] 300 mg PO DAILY 05/04/19 Carvedilol [Coreg (Beta Monisha)] 25 mg PO BID 05/04/19 Levothyroxine Sodium [Synthroid] 225 mcg PO DAILY 05/04/19 Venlafaxine HCl [Venlafaxine HCl 225 mg PO DAILY 05/04/19 ER] Budesonide/Formoterol 160/4.5 2 puff PO BID 05/07/19 [Symbicort 160/4.5 Mcg Inhaler (SP)] Insulin Regular, Human [Novolin R] 26 units SUBCUT TIDCM 05/07/19 Naproxen 500 mg PO BID PRN 06/01/19 Insulin NPH Human [Humulin N Pen] 32 units SUBCUT BIDAC 07/19/19 Metformin HCl [Metformin HCl ER] 1,000 mg PO DAILY 07/19/19 Topiramate 25 mg PO DAILY 07/19/19 cycloBENZAPRine HCl [Flexeril] 5 mg PO TID PRN PRN 07/19/19 traZODone [Desyrel] 50 mg PO QHS PRN PRN 07/19/19 Surgical History: Surgical History (Last Updated 05/06/19 @ 15:21 by Ladonna Stahl) Stented coronary artery (Chronic) Z95.5 2.5 x 12 Elunir RAYMUNDO to D1 05/06/19; RAYMUNDO to distal diagonal and distal RCA 08/12/18; RAYMUNDO RCA 04/18/2010; RAYMUNDO LAD 11/25/2002 (all were done @ [facility] in [place], [place]) History of left heart catheterization (Chronic) Onset Date: 08/19/18 Z98.890 Non obstructive coronary arteries; Widely patent recently placed DIAG and distal RCA stents. Non obstructive mid LAD just distal to DIAG branch as well as distal RCA 08/19/18; 12/09/12 History of back surgery Z98.890 lumbar in 2013, 2015 History of delivery Z98.891 History of cholecystectomy Z90.49 History of dilatation and curettage Z98.890 History of tonsillectomy and adenoidectomy Z98.890 History of tubal ligation Z98.51 Surgical History: angioplasty - PTCA ?4 at [facility], cholecystectomy, - - 5 stents in the past, 2 back surgeries with hardware of the lumbar spine, carpal tunnel, tonsils, section, bilateral tubal ligation, I&D of breast abscesses, cervical conization Psychiatric History: Anxiety, Depression ENVIRONMENTAL HEALTH SPECIALIST History: No pertinent ENVIRONMENTAL HEALTH SPECIALIST history Lives: Alone Smoking Status: Current every day smoker Tobacco Use: Cigarettes - one pack of cigarettes daily Alcohol: None Drugs: None - *Family History Maternal Family History: Family History (Last Updated 09/10/18 @ 16:59 by Ladonna Stahl) Mother Cancer Father Hypertension COPD (chronic obstructive pulmonary disease) Daughter Factor V deficiency Grandmother Cancer COPD (chronic obstructive pulmonary disease) History Items: Cancer, Diabetes, Heart Disease, Hypertension Paternal Family History: Family History (Last Updated 09/10/18 @ 16:59 by Ladonna Stahl) Mother Cancer Father Hypertension COPD (chronic obstructive pulmonary disease) Daughter Factor V deficiency Grandmother Cancer COPD (chronic obstructive pulmonary disease) History Items: Diabetes, Heart Disease, Hypertension, Pulmonary Disease Review of Systems Constitutional: Denies: Chills, Fever, Malaise, Weakness, Weight Change, Fatigue Eyes: Denies: Blurred vision HEENT: Denies: Head Aches, Sinus Congestion, Sinus Drainage Cardiovascular: Reports: Chest Pain, Chest Pressure, Light Headedness. Denies: Chest Tightness, Edema, Heaviness, Orthopnea, Palpitations, Paroxysmal Noc. Dyspnea Respiratory: Reports: Shortness of Breath, Shortness of breath upon exertion. Denies: Cough, Shortness of breath at rest, Sputum production Gastrointestinal: Denies: Abdominal Pain, Nausea, Vomiting Genitourinary: Denies: Dysuria Musculoskeletal: Denies: Joint Pain, Joint Tenderness Skin: Denies: Rash, Wounds Neurological: Denies: Numbness, Tingling, Focal weakness Psychiatric: Denies: Anxiety, Depression, Homicidal Ideations, Suicidal Ideations Hematologic/ Lymphatic: Denies: Easy Bruising, Easy Bleeding VTE Information - Inpt Only VTE Present on Admission: No VTE Pharm Prophylaxis ordered?: Yes Patient Problems: Active and Suspected Problems (Last Updated 05/06/19 @ 11:35 by Noe Rouse MD) Exertional chest pain (Acute) - Physical Exam Vitals/I&O's: Vital Signs Temp Pulse Resp BP Pulse Ox 97.6 F L 105 H 21 H 152/116 H 97 07/19/19 13:27 07/19/19 15:41 07/19/19 15:41 07/19/19 15:41 07/19/19 15:41 Oxygen Delivery Method Room Air Weight: 315 lb 7.704 oz Body Mass Index (BMI) 54.1 Finger Stick Blood Glucose 328 General: Alert, Oriented x3, Cooperative, No apparent distress, - - super morbid obesity HEENT: Atraumatic, PERRLA, EOMI, Normocephalic Oral: Moist Mucosa Neck: Supple, No JVD, Negative Carotid Bruits Lungs: Clear to auscultation, Normal air movement, No rhonchi, No wheeze, No rales, Tachypneic Cardiovascular: Regular Rhythm, Normal S1, Normal S2, No murmurs, Tachycardic Abdomen: Bowel Sounds Present, Soft, Non Tender, Non-Distended, No Hepato- splenomegaly, Obese Extremities: No clubbing, No cyanosis, No edema, Capillary Refill Less than 3 Seconds Skin: No rashes, No breakdown Musculoskeletal: No Tenderness to Palpation of Joints or Extremities Lymphatic: No Cervical, Supraclavicular, or Inguinal Adenopathy Neurological: Cranial nerves II-XII grossly intact, Neuro grossly intact, Motor Exam 5/5 strength throughout Psych/Mental Status: Normal Affect, Appropriate, Alert and oriented to time, place, person, mood and affect Laboratory Results 07/19/19 14:35: WBC 11.2 H, RBC 4.45, Hgb 14.3, Hct 41.4, MCV 93.0, MCH 32.1 H, MCHC 34.5, RDW Std Deviation 43.7, RDW Coeff of Whitney 13.0, Plt Count 248, MPV 10.1, Immature Gran % (Auto) 0.400, Neut % (Auto) 52.8, Lymph % (Auto) 36.0, [place] % (Auto) 6.5, Eos % (Auto) 3.8, Baso % (Auto) 0.5, Absolute Neuts (auto) 5.9, Absolute Lymphs (auto) 4.02, Nucleated RBC % 0, Differential Comment COMMENT, Atypical Lymphocytes 1+, Reactive Lymphocytes 1+ 07/19/19 14:35: Sodium 133 L, Potassium 4.5, Chloride 102, Carbon Dioxide 25.0, Anion Gap 6, BUN 15, Creatinine 0.67, Estim Creat Clear Calc 91.56, Est GFR (MDRD) Af Amer 121, Est GFR (MDRD) Non-Af 100, BUN/Creatinine Ratio 22.3 H, Glucose 361 H, Calcium 8.7, Troponin I < 0.015 Diagnostic Data Chest X-Ray 07/19/19 14:03 IMPRESSION: Normal x-ray examination of the chest. Electronically Signed: Wellington Grimes MD at 14:22 EST , Service support , Current Medications Nitroglycerin (Nitrostat) 0.4 mg SUBLINGUAL Q5M PRN PRN Reason: Chest pain Last Admin: 07/19/19 14:07 Dose: 0.4 mg Documented by: Assessment/Plan All Active Problems (Last Updated 05/06/19 @ 11:35 by Noe Rouse MD) Exertional chest pain (Acute) Chest pain (Acute) 43-year-old female admitted with a complaint of chest pain and shortness of breath. 1. Chest Pain rule out ACS. * admit to PCU with telemetry * initial troponin is negative, will cycle. * is tachypneic and tachycardic also. EKG showed sinus tachycardia but on acute ST changes. * has a history of similar presentation in May 2019; she had a stress test done which was negative. Per patient, she refused to leave because she felt as though something going on with her so she eventually had a cardiac cath which showed blockage in her coronary artery which required stenting. * Cardiology consulted by ED doctor on account of her history. * Sublingual nitroglycerin as needed. Continue aspirin 81 mg daily and statin. * Await cardiology recommendations. * Note, patient claims she has had a clot in her left lower extremity and her daughter also has a history of factor V Leiden deficiency. * CTA done was elevated at 7. Stat CTA done showed suboptimal pulmonary arterial opacification with no evidence of PE in the central vessels though subsegmental emboli could be missed. * 2. CAD s/p stent * Cardiac cath on 05/24 showed LAD had 30% stenosis in the ostium and the proximal LAD had a patent stent. Diagonal artery had 80% stenosis in the proximal region and proximal RCA had in-stent restenosis of 25% and 50% stenosis in the distal RCA. Diagonal artery had drug-eluting stent placed in it. * On aspirin, Plavix, statin and carvedilol. * Cardiology consulted. Await recs. 3. Type 2 diabetes mellitus: * On NPH 38 units twice daily as well as regular insulin 28 units 3 times daily with meals. * Insulin sliding scale. * Accu-Cheks AC at bedtime. 4. Hypothyroidism: On Synthroid. 5. History of asthma: On albuterol inhaler and Symbicort. 6. Depression: On venlafaxine DVT prophylaxis: Lovenox Code Visit OBSV E&M: [id number] Initial observation care L2
--- NOTE | 2019-07-19 17:14 | EKG12_ITS ---
Test Reason : AM EKG Blood Pressure : / mmHG Vent. Rate : 088 BPM Atrial Rate : 088 BPM P-R Int : 162 ms QRS Dur : 082 ms QT Int : 396 ms P-R-T Axes : 042 012 022 degrees QTc Int : 479 ms Normal sinus rhythm Normal ECG When compared with ECG of 19-JUL-2019 16:55, MANUAL COMPARISON REQUIRED, DATA IS UNCONFIRMED Confirmed by LOU MARX ([id number]), field map editor DAVID GAGNON ([id number]) on 07/21/2019 8:50:42 AM Referred By: Shanti Infante Confirmed By:LOU MARX
[2019-07-19 17:53] LABS: D-Dimer Quantitative (DVT/PE) 7.14 FEU/ug/m (0.27-0.49)
--- NOTE | 2019-07-19 18:08 | CT_ITS ---
STUDY: CTA CHEST REASON FOR EXAM: Female, 43 years old. 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 Hx of heart stent 05/2019, asthma, HTN, diabetes. RADIATION DOSAGE (If Supplied By Facility): CTDIvol = ( 11.48 ) mGy, DLP = ( 502.65 ) mGycm TECHNIQUE: The examination was performed with the intravenous administration of Isovue 300 100ml. Post-processing of the angiographic images was performed, with multiplanar reformation and 3D reconstruction. Individualized dose optimization techniques were used for this CT. COMPARISON: 05/04/2019. FINDINGS: Suboptimal pulmonary arterial opacification. No evidence of pulmonary embolus in the central vessels. Subsegmental emboli could be missed. The heart and pericardium are normal. The aorta is normal in caliber, with no aneurysm or dissection. There is no mediastinal mass or adenopathy. There is no hilar or axillary adenopathy. There is no pleural effusion. There is no pulmonary consolidation. Calcified granuloma in the right upper lobe. Visualized abdomen is unremarkable. There is no osseous abnormality. CT/CTA Chest W/WO Contrast IMPRESSION: 1. Suboptimal for evaluation of pulmonary embolus. No central emboli are seen. Small/ subsegmental emboli could be missed. 2. Old granulomatous disease. Electronically Signed: Acacia Arrieta MD at 19:30 EST Tel , Service support ,
[2019-07-19 18:10] LABS: Bedside Glucose 267 mg/dL (70-110)
[2019-07-19] MEDS: 0.9% Saline Lock 10 ML Syringe IV ×2 (18:26→22:45)
--- NOTE | 2019-07-19 18:40 | PCM.CONS.C ---
Problem List (1) Chest pain Status: Acute Qualifiers: Chest pain type: unspecified Qualified Code(s): R07.9 - Chest pain, unspecified (2) History of coronary artery disease Status: Chronic (3) Stented coronary artery Status: Chronic Comment: 2.5 x 12 Elunir RAYMUNDO to D1 05/06/19; RAYMUNDO to distal diagonal and distal RCA 08/12/18; RAYMUNDO RCA 04/18/2010; RAYMUNDO LAD 11/25/2002 (all were done @ [facility] in [place], [place]) (4) Hypercholesterolemia Status: Chronic (5) Essential hypertension Status: Chronic (6) Hypothyroidism Status: Chronic Qualifiers: Hypothyroidism type: unspecified Qualified Code(s): E03.9 - Hypothyroidism, unspecified (7) DM (diabetes mellitus), type 1 Status: Chronic (8) GERD (gastroesophageal reflux disease) Status: Chronic Qualifiers: Esophagitis presence: esophagitis presence not specified Qualified Code(s): K21.9 - Gastro-esophageal reflux disease without esophagitis (9) Morbid obesity Status: Chronic Reason for Consult Date of Consultation: 07/19/19 History of Present Illness: The patient is a 43 year old white female with a past cardiovascular history of CAD, status post PCI, superimposed upon hyperlipidemia, hypertension, hypothyroidism, diabetes mellitus, GERD, and morbid obesity who is referred for evaluation of recurrent chest discomfort. The patient has previously been evaluated and cared for by [facility] cardiology in [place], [place] and at [facility] by Drs. Huerta and Verna-both of which have performed diagnostic cardiac catheterization on the patient and the most recent one including PCI being performed by Dr. Miranda in May 2019. She states she has yet to follow-up with her physicians at [facility] or locally. She states she was doing well until approximately a week ago. She began to have recurrent chest discomfort and bilateral upper extremity discomfort/weakness. She states the chest discomfort waxes and wanes but is somewhat chronically present. The upper extremity discomfort/weakness comes and goes. She notes the symptoms are similar to symptoms she has had before associated with underlying CAD leading to PCI. She does states she can feel somewhat short of breath and dyspneic with activity. She does not describe any symptoms of acute orthopnea or PND. She has an element of chronic lower extremity ankle edema. There has been no near syncope or syncope. Has been no unexplained fevers chills or night sweats. She does not complain of a positional component to her discomfort classic for a pericardial condition. As she has continued with symptoms she elected to present back to the emergency department for further evaluation. She was found to have a negative troponin I level and an ECG that demonstrated sinus rhythm with a septal GA pattern of indeterminate age cannot be excluded. A chest x-ray demonstrated no acute pathology per radiology. She was noted to have an abnormal d-dimer level and a subsequent chest CT scan is pending. [] Past Medical History Allergies/Adverse Reactions: Allergies metformin [From Glucophage] Adverse Reaction (Intermediate, Verified 07/19/19 13:31) Diarrhea Home Medications: Ambulatory Orders Medication Instructions Recorded Aspirin [Aspirin, Baby] 81 mg PO DAILY@0800 06/11/15 Clopidogrel Bisulfate [Plavix] 75 mg PO DAILY 06/11/15 Lisinopril [Zestril] 40 mg PO DAILY 06/11/15 Albuterol Inhaler [Ventolin Hfa] 1 - 2 puff INHALATION Q4H PRN PRN 10/15/15 #1 inhaler Pantoprazole Sodium [Protonix] 40 mg PO DAILY 09/23/16 Ondansetron [Zofran Odt] 4 mg PO Q8H PRN PRN #10 tablet 03/07/18 ALPRAZolam [Xanax] 1 mg PO QHS PRN 08/18/18 Atorvastatin Calcium [Lipitor] 80 mg PO QHS #60 tablet 08/20/18 Bupropion HCl [Bupropion Xl] 300 mg PO DAILY 05/04/19 Carvedilol [Coreg (Beta Monisha)] 25 mg PO BID 05/04/19 Levothyroxine Sodium [Synthroid] 225 mcg PO DAILY 05/04/19 Venlafaxine HCl [Venlafaxine HCl 225 mg PO DAILY 05/04/19 ER] Budesonide/Formoterol 160/4.5 2 puff PO BID 05/07/19 [Symbicort 160/4.5 Mcg Inhaler (SP)] Insulin Regular, Human [Novolin R] 26 units SUBCUT TIDCM 05/07/19 Naproxen 500 mg PO BID PRN 06/01/19 Insulin NPH Human [Humulin N Pen] 32 units SUBCUT BIDAC 07/19/19 Metformin HCl [Metformin HCl ER] 1,000 mg PO DAILY 07/19/19 Topiramate 25 mg PO DAILY 07/19/19 cycloBENZAPRine HCl [Flexeril] 5 mg PO TID PRN PRN 07/19/19 traZODone [Desyrel] 50 mg PO QHS PRN PRN 07/19/19 Past Medical History (Chronic Problems): Chronic Problems (Last Updated 05/06/19 @ 11:35 by Noe Rouse MD) History of coronary artery disease (Chronic) Diabetes mellitus, type II (Chronic) Stented coronary artery (Chronic) 2.5 x 12 Elunir RAYMUNDO to D1 05/06/19; RAYMUNDO to distal diagonal and distal RCA 08/12/18; RAYMUNDO RCA 04/18/2010; RAYMUNDO LAD 11/25/2002 (all were done @ [facility] in [place], [place]) Atherosclerotic heart disease of [place] coronary artery without angina pectoris (Chronic) Non obstructive coronary arteries; Widely patent recently placed DIAG and distal RCA stents. Non obstructive mid LAD just distal to DIAG branch as well as distal RCA. Pt's symptoms are atypical for angina and degree of chest pain is out of proportion to CAD found per cath 08/19/[address] Huerta History of left heart catheterization (Chronic 08/19/18) Non obstructive coronary arteries; Widely patent recently placed DIAG and distal RCA stents. Non obstructive mid LAD just distal to DIAG branch as well as distal RCA 08/19/18; 12/09/12 Sleep-disordered breathing (Chronic) Essential hypertension (Chronic) Hypercholesterolemia (Chronic) Tobacco use (Chronic) Morbid obesity (Chronic) Hypothyroidism (Chronic) GERD (gastroesophageal reflux disease) (Chronic) Asthma (Chronic) DM (diabetes mellitus), type 1 (Chronic) Surgical History: angioplasty - PTCA ?4 at [facility], cholecystectomy, - - 5 stents in the past, 2 back surgeries with hardware of the lumbar spine, carpal tunnel, tonsils, section, bilateral tubal ligation, I&D of breast abscesses, cervical conization Psychiatric History: Anxiety, Depression PRESIDENTIAL SUPPORT SPECIALIST History: No pertinent PRESIDENTIAL SUPPORT SPECIALIST history - *Family History Maternal Family History: Family History (Last Updated 09/10/18 @ 16:59 by Ladonna Stahl) Mother Cancer Father Hypertension COPD (chronic obstructive pulmonary disease) Daughter Factor V deficiency Grandmother Cancer COPD (chronic obstructive pulmonary disease) History Items: Cancer, Diabetes, Heart Disease, Hypertension Paternal Family History: Family History (Last Updated 09/10/18 @ 16:59 by Ladonna Stahl) Mother Cancer Father Hypertension COPD (chronic obstructive pulmonary disease) Daughter Factor V deficiency Grandmother Cancer COPD (chronic obstructive pulmonary disease) History Items: Diabetes, Heart Disease, Hypertension, Pulmonary Disease Lives: Alone Smoking Status: Current every day smoker Tobacco Use: Cigarettes Alcohol: None Drugs: None Review of Systems - Review of Systems General: Denies: Fever, Night Sweats, Fatigue Cardiovascular: Reports: Chest Discomfort, Chest Discomfort at Rest, Chest Discomfort with Exertion, Shortness of Breath, Shortness of Breath with Exertion, Peripheral Edema. Denies: Orthopnea, PND, Palpitations, Lightheadedness, Dizziness, Near Syncope, Syncope Respiratory: Reports: Shortness of Breath. Denies: Cough, Sputum Production, Hemoptysis Gastrointestinal: Denies: Hematemesis, Hematochezia, Melena Genitourinary: Denies: Dysuria, Hematuria Skin: Denies: Rash Subjectve: This is a 43-year-old white female who appears to be resting comfortably at the moment in no acute distress. Objective: Vital Signs Temp Pulse Resp BP Pulse Ox 97.6 F L 99 22 H 114/89 H 97 07/19/19 16:11 07/19/19 17:12 07/19/19 16:11 07/19/19 16:11 07/19/19 16:11 Oxygen Delivery Method Room Air Weight: 310 lb 13.628 oz Body Mass Index (BMI) 53.3 Finger Stick Blood Glucose 328 Intake and Output for Last 24 Hours 07/17/19 07/18/19 07/19/19 23:59 23:59 23:59 Intake Total 120 / 120 Balance 120 / 120 General: Awake, Alert, Oriented x 3, Cooperative, No Acute Distress, Obese HEENT: Atraumatic, Normocephalic, PERRL, EOMI, Sclera Non Icteric Oral: Moist Mucosa Neck: Supple, Good ROM, No JVD Lungs: Clear to auscultation Cardiovascular: Regular Rhythm, Normal S1, Normal S2 Vascular: No Carotid Bruits Abdomen: Bowel Sounds Present, Soft, Non Tender, Obese Extremities: Trace RLE Edema, Trace LLE Edema Neurological: No Focal Motor or Sensory Deficit Psych/Mental Status: Appropriate 07/19/19 14:35: WBC 11.2 H, RBC 4.45, Hgb 14.3, Hct 41.4, MCV 93.0, MCH 32.1 H, MCHC 34.5, Plt Count 248, MPV 10.1, Immature Gran % (Auto) 0.400, Neut % (Auto) 52.8, Lymph % (Auto) 36.0, Tompkins % (Auto) 6.5, Eos % (Auto) 3.8, Baso % (Auto) 0.5, Absolute Neuts (auto) 5.9, Nucleated RBC % 0 07/19/19 14:35: Sodium 133 L, Potassium 4.5, Chloride 102, Carbon Dioxide 25.0, Anion Gap 6, BUN 15, Creatinine 0.67, Est GFR (MDRD) Af Amer 121, Est GFR (MDRD) Non-Af 100, BUN/Creatinine Ratio 22.3 H, Glucose 361 H, Calcium 8.7, Troponin I < 0.015 07/19/19 14:35: D-Dimer Quant (PE/DVT) 7.14 H* Rhythm: Sinus rhythm EKG: As noted above Stress Test: Stress Test Report Date: 05/05/2019 Procedure: Pharmacologic stress nuclear imaging study Indications: Chest pain Consent: Per the patient Procedure: The patient underwent pharmacologic (Regadenoson) evaluation with a peak heart rate of 103 beats per minute (58 %predicted maximal heart rate) and a peak blood pressure of 146/88 mmHg. The baseline ECG demonstrated normal sinus rhythm. EKG during lexiscan infusion revealed no significant ischemic changes. EKG post infusion revealed significant ischemic changes [There were no cardiac dysrhythmias pretest, during pharmacologic infusion, or recovery]. Patient had chest discomfort at baseline which was minimally worse after infusion. The pain subsequently returned to baseline. The examination was discontinued secondary to completion of protocol. Impression: 1. Lexiscan stress test test is negative for Lexiscan infusion induced EKG changes of ischemia. 2. Lexiscan stress test test is negative for Lexiscan infusion induced anginal chest pain. 3. Results of the nuclear portion of the test is as below Myocardial perfusion imaging study: Technique: The patient was injected with 15 millicuries of technetium 99m Cardiolite and subsequently rest SPECT Cardiolite nuclear imaging was obtained in the horizontal long, vertical long, and short axis views. The patient underwent pharmacologic (Regadenoson) evaluation. Please see above for details. The patient was injected with 45 millicuries of technetium 99m Cardiolite and subsequently stress SPECT Cardiolite nuclear imaging was obtained in the horizontal long, vertical long, and short axis views. A gated Cardiolite study at peak stress was obtained. Interpretation: Rest and stress SPECT Cardiolite nuclear imaging status post realignment, normalization, and attenuation correction demonstrate no evidence of significant ischemia or infarction involving large areas of myocardium. Gated images reveal no significant regional wall motion abnormalities. The reported LVEF is 60 %. Impression: 1. There is no evidence of significant ischemia or infarction. 2. Estimated ejection fraction is 60%. Cardiac Cath/PCI: CONCLUSIONS CAD as described with patent prior stents. Preserved EF. No significant or MR. Successful PCI of D1 with RAYMUNDO. RECOMMENDATIONS Follow up with primary account development associate ASA Indefinitley Plavix for at least 12 months CORONARY ANGIOGRAPHY DOMINANCE: Right Dominant LEFT HEART ASSESSMENT Left Ventricular Ejection Fraction: by LV Gram 60 % Normal LV wall motion LEFT MAIN: Mild luminal irregularities LEFT ANTERIOR DESCENDING ARTERY: OSTIAL LAD: 30 % Stenosis PROX LAD: Previously placed stent is patent DIAGONAL 1: Proximal - 80 % Stenosis CIRCUMFLEX ARTERY: Mild luminal irregularities OM 1: Proximal - 50 % Stenosis RIGHT CORONARY ARTERY: PROX RCA: Instent restenosis 25 % DISTAL RCA: 50 % Stenosis VALVE FINDINGS: No Aortic Valve Stenosis No Mitral Insufficency INTERVENTION INFORMATION LESION SITE: RCA (Proximal) Lesion Complexity: High/C, chronic total occlusion: No, lesion at bifurcation: No, thrombus present: No, lesion length: 11 mm, culprit lesion: Yes, Previously treated lesion: No Pre Stenosis: 80 % Pre intervention LIAT flow: 3 PROCEDURE: Drug Eluting Stent Post Stenosis: 0 % Post intervention LIAT flow: 3 Lesion Devices: Ferguson .014 BMW [place] Straight 190cm Cardinal 6 Fr XB3.0 100cm Guide Catheter Cardinal Elunir RAYMUNDO RX 2.5x12 CXR: As noted above Assessment/Plan 1. Chest pain The patient presents with chest pain. Her pain is somewhat atypical. However she states it is typical for the symptoms she has had in the past leading up to her diagnosis of CAD and PCI procedures. At the moment from a cardiac standpoint her cardiac enzymes are negative. Her ECG demonstrates no new acute changes. Her chest x-ray demonstrates no new acute changes. She is continuing medical management. This includes agents such as her aspirin, antiplatelets, nitrates, beta-blockers, afterload reducing agents, and lipid-lowering agents. Depending upon her clinical course and findings she may need reevaluation in the cardiac catheterization laboratory. In the interim she is also being evaluated for noncardiac etiologies of her chest pain. This does include, based upon her d-dimer level, a chest CT scan for evidence of thromboembolic disease. 2. CAD status post PCI The patient has undergone previous PCI procedures in the past both in [place], [place] as well as locally. At the moment she will continue risk factor evaluation care. She will continue her noninvasive evaluation. She will continue medical management. Depending upon her findings she may need subsequent invasive evaluation. 3. Hyperlipidemia She will continue lipid-lowering therapy. 4. Hypertension She will continue medical management with adjustment as needed. 5. Hypothyroidism She will continue medical therapy as deemed appropriate. 6. Diabetes mellitus She will continue to be evaluated by internal medicine. 7. GERD She states that her symptoms seem different than her GERD symptoms. She will need continued evaluation of her chest discomfort for nongastrointestinal etiologies but at the same time continue evaluation care of her GERD. 8. Obesity She states she is working with physicians from [place], [place], and attempt to lose weight. Comment: The above was discussed with the patient and Dr. Mojica of the [facility] emergency department staff. This note was generated using a voice recognition system and there may be incorrect words, spelling or punctuation that were not noted when reviewing the office note prior to saving.
[2019-07-19] MEDS: Insulin NPH Human 100 UNITS/ML PEN 32 UNITS SC (19:27)
[2019-07-19] MEDS: Insulin Lispro 100 UNIT/ML INSULN.PEN 28 UNIT SC (19:28)
[2019-07-19] MEDS: Albuterol 2.5 MG/3 ML VIAL.NEB. INHALATION (20:06)
[2019-07-19] MEDS: Budesonide Respules 0.5 MG/2 ML AMPUL.NEB. INHALATION (20:07)
[2019-07-19] MEDS: Atorvastatin Calcium 80 MG Tablet PO (21:24)
[2019-07-19] MEDS: Carvedilol 25 MG Tablet 50 MG PO (21:24)
[2019-07-19] MEDS: 0.9% Normal Saline 1,000 ML 75 ML IV (21:24)
[2019-07-19] MEDS: Enoxaparin 40 MG/0.4 ML Syringe SC (21:40)
[2019-07-19] MEDS: Insulin Lispro 100 UNIT/ML INSULN.PEN SC (21:47)
[2019-07-19 22:01] LABS: Bedside Glucose 257 mg/dL (70-110)
[2019-07-19] MEDS: ALPRAZolam 0.5 MG Tablet 1 MG PO (22:44)
[2019-07-19] MEDS: Nitroglycerin Oint 1 INCH PACKET TRANSDERM. (22:48)
[2019-07-20] VITALS (16 sets, daily range): BP systolic 101–145; BP diastolic 60–89; PULSE 76–102; RESP 16–20; TEMP 36.4–36.8; O2SAT 96–100
[2019-07-20] MEDS: Morphine 2 MG/ML Syringe IV ×4 (00:40→14:37)
[2019-07-20] MEDS: 0.9% Saline Lock 10 ML Syringe IV (00:45)
[2019-07-20] MEDS: Levothyroxine 100 MCG Tablet 200 MCG PO (05:50)
[2019-07-20] MEDS: Levothyroxine 25 MCG TABLET PO (05:50)
[2019-07-20] MEDS: Lisinopril 40 MG Tablet PO (05:51)
[2019-07-20] MEDS: Aspirin 81 MG TAB.CHEW PO (05:51)
[2019-07-20] MEDS: Clopidogrel Bisulfate 75 MG Tablet PO (05:51)
[2019-07-20 05:53] LABS: Absolute Lymphocyte Count 4.15 X10^3/uL (0.83-4.51); Absolute Neutrophil Count 2.9 X10^3/uL (2.0-7.7); Basophil# 0.05 X10^3/uL; Basophil% 0.6 % (0-1); Eosinophil# 0.38 X10^3/uL; Eosinophils% 4.6 % (0-5); Hematocrit 38.9 % (37-47); Lymphocyte # 4.15 X10^3/ul (4.0); Lymphocyte % 50.5 % (19-41); Mean Corp Hgb Conc 33.4 g/dL (32-36); Mean Corpuscular Hgb 31.3 pg (27.0-32.0); Mean Corpuscular Volume 93.7 fL (81-99); Mean Platelet Vol. 10.4 fl (6.2-12.0); Monocyte# 0.75 X10^3/uL; Monocyte% 9.1 % (0-10); NRBC Flagged by Analyzer 0 % (0-5); Neutrophil # 2.87 X10^3/uL (2.7-7.7); POSITIVE MORPHOLOGY YES; Platelet Count 229 K/mm3 (150-450); RBC Distribution Width CV 13.1 % (11.6-14.6); RBC Distribution Width SD 44.8 fl (35.1-43.9); Red Blood Count 4.15 M/mm3 (4.2-5.4); White Blood Count 8.2 K/mm3 (4.4-11.0)
--- NOTE | 2019-07-20 05:55 | EKG12_ITS ---
Test Reason : CP Blood Pressure : / mmHG Vent. Rate : 106 BPM Atrial Rate : 106 BPM P-R Int : 154 ms QRS Dur : 074 ms QT Int : 340 ms P-R-T Axes : 042 005 032 degrees QTc Int : 451 ms Sinus tachycardia Otherwise normal ECG Confirmed by FATOU SILVA, ANGELY ([id number]), medical transcription editor DAVID GAGNON ([id number]) on 07/22/2019 9:55:44 AM Referred By: Shanti Infante Confirmed By:LEANDRA LAINEZ MD
[2019-07-20] MEDS: Nitroglycerin Oint 1 INCH PACKET TRANSDERM. ×2 (05:56→14:47)
[2019-07-20 06:02] LABS: Anion Gap 6 (5-15); BUN 17 mg/dL (7-18); BUN/Creat Ratio 27.9 RATIO (10-20); Calcium,Total 8.6 mg/dL (8.5-10.1); Chloride 107 mmol/L (98-107); Creatinine, Serum 0.61 mg/dL (0.55-1.02); EST Glomerular Filtration Rate 113 mL/min (>60); Est Glom Filt Rate - Afr Amer 136 mL/min (>60); Estimated Creatinine Clearance 100.57 ml/min; Glucose 162 mg/dL (74-106); Potassium 3.8 mmol/L (3.5-5.1); Sodium Level 137 mmol/L (136-145)
[2019-07-20] MEDS: Carvedilol 25 MG Tablet 50 MG PO (06:13)
[2019-07-20 06:14] LABS: Differential Indicated SCAN CRITERIA MET
[2019-07-20 06:45] LABS: Reactive Lymphocyte 2+
[2019-07-20 06:46] LABS: Platelet Estimate ADEQUATE (ADEQ)
[2019-07-20] MEDS: Budesonide Respules 0.5 MG/2 ML AMPUL.NEB. INHALATION (06:50)
[2019-07-20] MEDS: Albuterol 2.5 MG/3 ML VIAL.NEB. INHALATION (06:50)
[2019-07-20 07:10] LABS: Bedside Glucose 165 mg/dL (70-110)
[2019-07-20] MEDS: 0.9% Normal Saline 1,000 ML 75 ML IV (10:11)
[2019-07-20 10:43] LABS: Internal QC Validated? YES +Cl - CLEAR BKGD; Pregnancy, Urine Negative Negative
--- NOTE | 2019-07-20 12:21 | PCM.PN.HOSP ---
Patient Problems: Active and Suspected Problems (Last Updated 05/06/19 @ 11:35 by Noe Rouse MD) Exertional chest pain (Acute) Reason for Visit: Patient is still having chest pain midsternal with radiation to left side of the neck and shoulder. Currently not short of breath. Hypoxia. Vitals/I&O's: Vital Signs Temp Pulse Resp BP Pulse Ox 98.3 F 80 18 101/61 96 07/20/19 10:05 07/20/19 11:00 07/20/19 10:05 07/20/19 10:05 07/20/19 10:05 Oxygen Delivery Method Room Air Weight: 310 lb 13.628 oz Body Mass Index (BMI) 53.3 Finger Stick Blood Glucose 328 Intake and Output for Last 24 Hours 07/18/19 07/19/19 07/20/19 23:59 23:59 23:59 Intake Total 370 / 370 1058.75 / 1058.75 Balance 370 / 370 1058.75 / 1058.75 General: Alert, Oriented x3, Cooperative HEENT: Atraumatic, PERRLA, EOMI, Normocephalic Neck: Supple, No JVD, Negative Carotid Bruits Lungs: Clear to auscultation, No rhonchi, No wheeze, No rales, Diminished Cardiovascular: Regular rate, Regular Rhythm, Normal S1, Normal S2, No murmurs Abdomen: Bowel Sounds Present, Soft, Non Tender, Non-Distended Extremities: No edema, Capillary Refill Less than 3 Seconds Skin: No rashes, No breakdown Musculoskeletal: No Tenderness to Palpation of Joints or Extremities Neurological: Cranial nerves II-XII grossly intact, Deep Tendon Reflexes 2+/4 and Symmetrical, Neuro grossly intact Psych/Mental Status: Normal Affect, Appropriate Laboratory Results 07/19/19 14:35: WBC 11.2 H, RBC 4.45, Hgb 14.3, Hct 41.4, MCV 93.0, MCH 32.1 H, MCHC 34.5, RDW Std Deviation 43.7, RDW Coeff of Whitney 13.0, Plt Count 248, MPV 10.1, Immature Gran % (Auto) 0.400, Neut % (Auto) 52.8, Lymph % (Auto) 36.0, Oxford % (Auto) 6.5, Eos % (Auto) 3.8, Baso % (Auto) 0.5, Absolute Neuts (auto) 5.9, Absolute Lymphs (auto) 4.02, Nucleated RBC % 0, Differential Comment COMMENT, Atypical Lymphocytes 1+, Reactive Lymphocytes 1+ 07/19/19 14:35: Sodium 133 L, Potassium 4.5, Chloride 102, Carbon Dioxide 25.0, Anion Gap 6, BUN 15, Creatinine 0.67, Estim Creat Clear Calc 91.56, Est GFR (MDRD) Af Amer 121, Est GFR (MDRD) Non-Af 100, BUN/Creatinine Ratio 22.3 H, Glucose 361 H, Calcium 8.7, Troponin I < 0.015 07/19/19 14:35: D-Dimer Quant (PE/DVT) 7.14 H* 07/19/19 18:02: POC Glucose 267 H 07/19/19 18:08: Troponin I < 0.015 07/19/19 20:48: Troponin I < 0.015 07/19/19 21:46: POC Glucose 257 H 07/20/19 05:20: WBC 8.2, RBC 4.15 L, Hgb 13.0, Hct 38.9, MCV 93.7, MCH 31.3, MCHC 33.4, RDW Std Deviation 44.8 H, RDW Coeff of Whitney 13.1, Plt Count 229, MPV 10.4, Immature Gran % (Auto) 0.200, Neut % (Auto) 35.0 L, Lymph % (Auto) 50.5 H, Oxford % (Auto) 9.1, Eos % (Auto) 4.6, Baso % (Auto) 0.6, Absolute Neuts (auto) 2.9, Absolute Lymphs (auto) 4.15, Nucleated RBC % 0, Reactive Lymphocytes 2+, Platelet Estimate ADEQUATE 07/20/19 05:20: Sodium 137, Potassium 3.8, Chloride 107, Carbon Dioxide 24.0, Anion Gap 6, BUN 17, Creatinine 0.61, Estim Creat Clear Calc 100.57, Est GFR (MDRD) Af Amer 136, Est GFR (MDRD) Non-Af 113, BUN/Creatinine Ratio 27.9 H, Glucose 162 H, Calcium 8.6 07/20/19 06:09: POC Glucose 165 H 07/20/19 10:15: Urine Test Negative Current Medications Albuterol Sulfate (Ventolin Aerosols) 2.5 mg INHALATION Q4H PRN PRN PRN Reason: Wheezing Albuterol Sulfate (Ventolin Aerosols) 2.5 mg INHALATION Q6HWA.RT [facility] Last Admin: 07/20/19 06:50 Dose: 2.5 mg Documented by: Alprazolam (Xanax) 1 mg PO QHS PRN PRN Reason: insomnia Last Admin: 07/19/19 22:44 Dose: 1 mg Documented by: Aspirin (Aspirin, Baby) 81 mg PO DAILY@0800 [facility] Last Admin: 07/20/19 05:51 Dose: 81 mg Documented by: Atorvastatin Calcium (Lipitor) 80 mg PO QHS [facility] Last Admin: 07/19/19 21:24 Dose: 80 mg Documented by: Budesonide (Pulmicort Aerosol) 0.5 mg INHALATION Q12H.RT [facility] Last Admin: 07/20/19 06:50 Dose: 0.5 mg Documented by: Bupropion HCl (Wellbutrin Xl) 300 mg PO DAILY [facility] Carvedilol (Coreg) 50 mg PO BID [facility] Last Admin: 07/20/19 06:13 Dose: 50 mg Documented by: Clopidogrel Bisulfate (Plavix) 75 mg PO DAILY [facility] Last Admin: 07/20/19 05:51 Dose: 75 mg Documented by: Cyclobenzaprine HCl (Flexeril) 10 mg PO TID PRN PRN PRN Reason: MUSCLE SPASM Enoxaparin Sodium (Lovenox) 40 mg SC DAILY@0600 [facility] Last Admin: 07/20/19 05:51 Dose: Not Given Documented by: Glucagon () 1 mg IM .X1 PRN PRN Reason: Hypoglycemia Dextrose (Dextrose 10%-Water) 250 mls @ 999 mls/hr IV .Q16M PRN; Protocol PRN Reason: HYPOGLYCEMIA Sodium Chloride () 1,000 mls @ 75 mls/hr IV .[id number] [facility] Last Admin: 07/20/19 10:11 Dose: 75 mls/hr Documented by: Insulin Human Lispro (Humalog Kwikpen (Bkc)) 28 unit SC TIDCM [facility] Last Admin: 07/19/19 19:28 Dose: 28 u Documented by: Insulin Human Lispro (Humalog Kwikpen (Bkc)) 0 unit SC ACHS [facility]; Protocol Last Admin: 07/20/19 06:11 Dose: Not Given Documented by: Insulin Human NPH (Humulin N (Bkc)) 32 units SC BIDAC [facility] Last Admin: 07/19/19 19:27 Dose: 32 u Documented by: Levothyroxine Sodium (Synthroid) 25 mcg PO DAILY@0600 [facility] Last Admin: 07/20/19 05:50 Dose: 25 mcg Documented by: Levothyroxine Sodium (Synthroid) 200 mcg PO DAILY@0600 [facility] Last Admin: 07/20/19 05:50 Dose: 200 mcg Documented by: Lisinopril (Zestril) 40 mg PO DAILY [facility] Last Admin: 07/20/19 05:51 Dose: 40 mg Documented by: Morphine Sulfate () 2 mg IV Q3H PRN PRN PRN Reason: Pain Score 6-10/10 Last Admin: 07/20/19 10:12 Dose: 2 mg Documented by: Nitroglycerin (Nitrostat) 0.4 mg SUBLINGUAL Q5M PRN PRN Reason: Chest pain Last Admin: 07/19/19 14:07 Dose: 0.4 mg Documented by: Nitroglycerin (Nitrobid) 1 inch TRANSDERM. Q6 [facility] Last Admin: 07/20/19 05:56 Dose: 1 inch Documented by: Nutritional Formula (Lactose Free) (Ensure Enlive) 120 ml PO 4X/DAY [facility] Last Admin: 07/19/19 21:16 Dose: Not Given Documented by: Ondansetron HCl (Zofran Odt) 4 mg PO Q8H PRN PRN PRN Reason: NAUSEA Ondansetron HCl (Zofran) 4 mg IV Q8H PRN PRN PRN Reason: NAUSEA/VOMITING Pantoprazole Sodium (Protonix) 40 mg PO DAILY [facility] Sodium Chloride () 10 - 40 ml IV UD PRN PRN Reason: SALINE FLUSH Last Admin: 07/20/19 00:45 Dose: 20 ml Documented by: Topiramate (Topamax) 25 mg PO DAILY [facility] Trazodone HCl (Desyrel) 50 mg PO QHS PRN PRN PRN Reason: SLEEP Venlafaxine HCl (Effexor Xr) 75 mg PO DAILY [facility] STROKE Vital Signs/Narrative: Vital Signs Temp Pulse Resp BP Pulse Ox 07/20/19 11:00 80 07/20/19 10:05 98.3 F 82 18 101/61 96 Medical Necessity - Tobacco Use Smoking Status: Current every day smoker Tobacco Use: Cigarettes Assessment/Plan All Active Problems (Last Updated 05/06/19 @ 11:35 by Noe Rouse MD) Exertional chest pain (Acute) Chest pain (Acute) This is a 43-year-old female was admitted through ER for chest pain and shortness of breath for about 2 weeks. Chest pain mainly retrosternal with radiation to both shoulders, mainly left shoulder. Chest pain mainly aggravated by exertion relieved by rest. Chest x-ray no acute cardiopulmonary process. EKG no acute ST-T changes. 1. Atypical chest pain with concern of unstable angina: Patient is being admitted in PCU. Serial troponin enzymes are negative. Patient had a stress test May 2019 reported as negative. Furthermore she had a cardiac cath at age mentioned below. Patient seen by ore digger. Plan for cardiac cath in afternoon. Continue aspirin, sublingual nitro as needed and statin and other cardiac medications. 2. Possible prior history of left lower extremity DVT:Her daughter also has a history of factor V Leiden deficiency. CTA done in ER which showed suboptimal pulmonary arterial opacification with no evidence of PE in the central vessels though subsegmental emboli could be missed. 3. CAD s/p stent Cardiac cath on 05/24 showed LAD had 30% stenosis in the ostium and the proximal LAD had a patent stent. Diagonal artery had 80% stenosis in the proximal region and proximal RCA had in-stent restenosis of 25% and 50% stenosis in the distal RCA. Diagonal artery had drug-eluting stent placed in it. On aspirin, Plavix, statin and carvedilol. 3. Type 2 diabetes mellitus: On NPH 38 units twice daily as well as regular insulin 28 units 3 times daily with meals. Insulin sliding scale. Accu-Cheks AC at bedtime. 4. Hypothyroidism: On Synthroid. 5. History of asthma: On albuterol inhaler and Symbicort. 6. Depression: On venlafaxine DVT prophylaxis: Lovenox Clinical Impression(s) from Imaging Studies Chest X-Ray 07/19/19 14:03 IMPRESSION: Normal x-ray examination of the chest. Electronically Signed: Wellington Grimes MD at 14:22 EST , Service support , Chest CTA 07/19/19 18:08 IMPRESSION: 1. Suboptimal for evaluation of pulmonary embolus. No central emboli are seen. Small/ subsegmental emboli could be missed. 2. Old granulomatous disease. Code Visit Inpatient E&M: 72041 Subs Hosp L3
[2019-07-20] MEDS: 0.9% Normal Saline 1,000 ML 100 ML IV (13:39)
--- NOTE | 2019-07-20 13:39 | CL.D_ITS ---
Patient Name: ADELFO BACK Study Date: 07/20/2019 Performing: Jose F Miranda MD Ht: 64 inches 163 cm : 1975 Wt: 311.3 lbs 141 kg Age: 43 Gender: female BSA: 2.36 PROCEDURE(S) PERFORMED CH48-UFR/COR/LV OL21-AQI, CORONARY OR GRAFT, INITIAL VESSEL CLINICAL PROFILE AND INDICATIONS Indications: Worsening Angina Heart Failure: None Stress/Imaging Stress/Image Study Performed: No CAD Presentations: Unstable angina. CONCLUSIONS CAD as described with minimal change compared to final post angioplasty pictures from 05/24. EF is ar ound 50% with mild inferior hypokinesis. No significant or MR. FFR in the RCA is 0.83 which is con sistent with stenoses that should be treated medically at this time. RECOMMENDATIONS DESCRIPTION OF PROCEDURE The patient arrived to the procedure lab. The risks and benefits of the procedure as well as a full d escription of our services here and current unavailability of surgical backup were fully explained to the patient and/or their significant other prior to the catheterization. The Timeout was completed, verifying the correct patient and procedure. The patient's procedural site was prepped and draped in the usual fashion. Local anesthetic was given subcutaneously to right radial region with Lidocaine 2% . Using a modified Seldinger technique, arterial access was obtained via the right radial artery, a 6 Fr sheath was inserted. Left Ventriculography was performed in GUTIÉRREZ projection using a 5 Fr.. LV to A O pullback pressures were then recorded. Left Coronary Artery selective angiography was performed in multiple views using a 5 Fr. JL3.5 catheter. Right Coronary Artery selective angiography was then per formed in multiple views using a 5 Fr. JR 4 catheter.The arterial sheath was pulled and a TR Band was applied for hemostasis CORONARY ANGIOGRAPHY DOMINANCE: Right Dominant LEFT HEART ASSESSMENT Left Ventricular Ejection Fraction: by LV Gram 50 % Inferior Hypokinesis - Mild LEFT MAIN: Mild luminal irregularities LEFT ANTERIOR DESCENDING ARTERY: OSTIAL LAD: 20 % Stenosis PROX LAD: Previously placed stent is patent DIAGONAL 1: Proximal - Previously placed stent is patent CIRCUMFLEX ARTERY: mild disease RAMUS: Mild luminal irregularities RIGHT CORONARY ARTERY: MID RCA: Previously placed stent has an instent 30-40 % restenosis DISTAL RCA: 60-70 % Stenosis. FFR in the RCA is 0.83 which is consistent with stenoses that should be treated medically at this time. VALVE FINDINGS: No Aortic Valve Stenosis No Mitral Insufficency COMPLICATIONS No Complications PROCEDURE MEDICATIONS Versed 1 mg IV Versed 1 mg IV Fentanyl 50 mcg IV Oxygen: 2 L/min via nasal cannula Adenosine drip for FFR 32.8 ml IV @ 07/20/2019 13:06:03 Heparin given IA 07/20/2019 12:40:17 Verapamil 2.5mg, Ntg 100mcgs, 3000 units of Heparin given IA 07/20/2019 12:40:17 SUMMARY OF HEMODYNAMIC DATA Time AIR REST ECG 12:20:47 LV 123/-1, 7 12:43:08 LVp 108/69, 73 12:43:34 AOp 111/72 (90) 12:43:39 AO 102/71 (86) SA 12:44:51 Signed By Jose F Miranda MD On 07/20/2019 13:38:16 Jose F Miranda MD
[2019-07-20] MEDS: buPROPion (XL) 300 MG TABLET.XL PO (14:44)
[2019-07-20] MEDS: Pantoprazole Sodium 40 MG Tablet PO (14:45)
[2019-07-20] MEDS: Venlafaxine XR 75 MG Capsule PO (14:46)
[2019-07-20] MEDS: Insulin Lispro 100 UNIT/ML INSULN.PEN 28 UNIT SC (15:06)
[2019-07-20] MEDS: Insulin NPH Human 100 UNITS/ML PEN 32 UNITS SC (15:08)
[2019-07-20] MEDS: Insulin Lispro 100 UNIT/ML INSULN.PEN SC (15:09)
--- NOTE | 2019-07-20 15:16 | PCM.DC ---
- Discharge Diagnoses Current Active Problems: Current Active and Chronic Problems (Last Updated 05/06/19 @ 11:35 by Noe Rouse MD) Exertional chest pain (Acute) History of coronary artery disease (Chronic) Essential hypertension (Chronic) Hypercholesterolemia (Chronic) You will use the following diet at home:: Cardiac Your food should be the consistency of: Regular Discharge Activity: May Not Drive - for about 1 week Additional Activity Instructions:: The patient is instructed to hold metformin, naproxen for 3 days and lisinopril for 2 days Call your doctor if you observe: Fever of 101 or Higher, Coldness, Increased Pain, Numbness or Tingling, Inability to urinate, Inability to have a bowel movement, Shortness of breath, Dizziness, Fainting spells, Swelling in the ankles, Chest pain, Prolonged hiccoughing, Increased palpitations (irregular heartbeat), Uncontrolled pain Additional Instructions: discharge after post card cath protocol is done Allergies/Adverse Reactions: Allergies metformin [From Glucophage] Adverse Reaction (Intermediate, Verified 07/19/19 13:31) Diarrhea Medications to take at Discharge Aspirin [Aspirin, Baby] 81 mg PO DAILY@0800 06/11/15 Clopidogrel Bisulfate [Plavix] 75 mg PO DAILY 06/11/15 Albuterol Inhaler [Ventolin Hfa] 1 - 2 puff INHALATION Q4H PRN PRN #1 inhaler 10/15/15 Pantoprazole Sodium [Protonix] 40 mg PO DAILY 09/23/16 Ondansetron [Zofran Odt] 4 mg PO Q8H PRN PRN #10 tablet 03/07/18 ALPRAZolam [Xanax] 1 mg PO QHS PRN 08/18/18 Atorvastatin Calcium [Lipitor] 80 mg PO QHS #60 tablet 08/20/18 Bupropion HCl [Bupropion Xl] 300 mg PO DAILY 05/04/19 Carvedilol [Coreg (Beta Monisha)] 25 mg PO BID 05/04/19 Levothyroxine Sodium [Synthroid] 225 mcg PO DAILY 05/04/19 Venlafaxine HCl [Venlafaxine HCl ER] 225 mg PO DAILY 05/04/19 Budesonide/Formoterol 160/4.5 [Symbicort 160/4.5 Mcg Inhaler (SP)] 2 puff PO BID 05/07/19 Insulin Regular, Human [Novolin R] 26 units SUBCUT TIDCM 05/07/19 Insulin NPH Human [Humulin N Pen] 32 units SUBCUT BIDAC 07/19/19 Topiramate 25 mg PO DAILY 07/19/19 cycloBENZAPRine HCl [Flexeril] 5 mg PO TID PRN PRN 07/19/19 traZODone [Desyrel] 50 mg PO QHS PRN PRN 07/19/19 Lisinopril [Zestril] 40 mg PO DAILY #0 07/20/19 Metformin HCl [Metformin HCl ER] 1,000 mg PO DAILY #0 07/20/19 Naproxen 500 mg PO BID PRN #0 07/20/19 Ranolazine [Ranexa] 500 mg PO BID #60 tab 07/20/19 The following prescriptions were given: Ranolazine [Ranexa] 500 mg PO BID #60 tab Transmission Status: Pending to [facility] [place] [facility] Primary Care Physician: Carlotta Galindo MD [Primary Care Provider] - Please follow up with your Primary Care Physician in: in 1 week Test Results: Test results from this visit will be discussed in further detail at your follow-up appointment, if applicable. Please Follow Up With: Carlotta Galindo MD Please Follow Up With: Juan Manuel Lucero MD When: in 3-4 weeks
--- NOTE | 2019-07-20 15:26 | PCM.DC.SUM ---
Discharge Date and Diagnosis - Problem List Patient Problems: Active and Suspected Problems (Last Updated 05/06/19 @ 11:35 by Noe Rouse MD) Exertional chest pain (Acute) Date of Admission: 07/19/19 Date of Discharge: 07/20/19 - Primary Discharge Diagnosis Active and Suspected Problems (Last Updated 05/06/19 @ 11:35 by Noe Rouse MD) Exertional chest pain (Acute) Unstable angina - Secondary Discharge Diagnosis Chronic Problems (Last Updated 05/06/19 @ 11:35 by Noe Rouse MD) History of coronary artery disease (Chronic) Diabetes mellitus, type II (Chronic) Stented coronary artery (Chronic) 2.5 x 12 El[place]ir RAYMUNDO to D1 05/06/19; RAYMUNDO to distal diagonal and distal RCA 08/12/18; RAYMUNDO RCA 04/18/2010; RAYMUNDO LAD 11/25/2002 (all were done @ [facility] in [place], [place]) Atherosclerotic heart disease of [place] coronary artery without angina pectoris (Chronic) Non obstructive coronary arteries; Widely patent recently placed DIAG and distal RCA stents. Non obstructive mid LAD just distal to DIAG branch as well as distal RCA. Pt's symptoms are atypical for angina and degree of chest pain is out of proportion to CAD found per cath 08/19/[address] Huerta History of left heart catheterization (Chronic 08/19/18) Non obstructive coronary arteries; Widely patent recently placed DIAG and distal RCA stents. Non obstructive mid LAD just distal to DIAG branch as well as distal RCA 08/19/18; 12/09/12 Sleep-disordered breathing (Chronic) Essential hypertension (Chronic) Hypercholesterolemia (Chronic) Tobacco use (Chronic) Morbid obesity (Chronic) Hypothyroidism (Chronic) GERD (gastroesophageal reflux disease) (Chronic) Asthma (Chronic) DM (diabetes mellitus), type 1 (Chronic) Hospital Course and Treatment Operations: None Summary of Care Provided: [] This is a 43-year-old female was admitted through ER for chest pain and shortness of breath for about 2 weeks. Chest pain mainly retrosternal with radiation to both shoulders, mainly left shoulder. Chest pain mainly aggravated by exertion relieved by rest. Chest x-ray no acute cardiopulmonary process. EKG no acute ST-T changes. 1. Atypical chest pain with concern of unstable angina: Patient is being admitted in PCU. Serial troponin enzymes are negative. Patient had a stress test May 2019 reported as negative. Furthermore she had a cardiac cath at age mentioned below. Patient seen by corporate consultant. Plan for cardiac cath in afternoon. Continue aspirin, sublingual nitro as needed and statin and other cardiac medications. The patient had cardiac cath on 07/20/2019 which shows mild inferior hypokinesis. Ostial LAD 20%. Diagonal 1 proximal previously placed stent patent. Mid RCA in-stent stenosis 30 to 40%. Distal RCA 60 to 70% stenosis with FFR 0.83 which is consistent with a stenosis that should be treated medically at this time. Discussed with the corporate consultant. In view of chest pain, prescription for Ranexa 500 mg twice daily sent to patient's pharmacy. 2. Possible prior history of left lower extremity DVT:Her daughter also has a history of factor V Leiden deficiency. CTA done in ER which showed suboptimal pulmonary arterial opacification with no evidence of PE in the central vessels though subsegmental emboli could be missed. 3. CAD s/p stent Cardiac cath on 05/24 showed LAD had 30% stenosis in the ostium and the proximal LAD had a patent stent. Diagonal artery had 80% stenosis in the proximal region and proximal RCA had in-stent restenosis of 25% and 50% stenosis in the distal RCA. Diagonal artery had drug-eluting stent placed in it. On aspirin, Plavix, statin and carvedilol. 3. Type 2 diabetes mellitus: On NPH 38 units twice daily as well as regular insulin 28 units 3 times daily with meals. Insulin sliding scale. Blood sugars well controlled. Last 1 glucose 165 mg/dL. 4. Hypothyroidism: On Synthroid. 5. History of asthma: On albuterol inhaler and Symbicort. 6. Depression: On venlafaxine DVT prophylaxis: Lovenox Discharge medication reconciliation done. Discharge follow-up instructions completed. Discharge process discussed with the patient and all questions were answered to patient's satisfaction. Patient was advised to hold metformin, NSAIDs/naproxen for 3 days. Hold lisinopril for 2 days. Follow with PCP. Total time spent, exact 35 minutes on discharge meds reconciliation, examination, review of imaging and blood test and discussion with the patient on follow-up instructions. Clinical Impression(s) from Imaging Studies Chest X-Ray 07/19/19 14:03 IMPRESSION: Normal x-ray examination of the chest. Laboratory Results 07/19/19 14:35: D-Dimer Quant (PE/DVT) 7.14 H* 07/19/19 18:02: POC Glucose 267 H 07/19/19 18:08: Troponin I < 0.015 07/19/19 20:48: Troponin I < 0.015 07/19/19 21:46: POC Glucose 257 H 07/20/19 05:20: WBC 8.2, RBC 4.15 L, Hgb 13.0, Hct 38.9, MCV 93.7, MCH 31.3, MCHC 33.4, RDW Std Deviation 44.8 H, RDW Coeff of Whitney 13.1, Plt Count 229, MPV 10.4, Immature Gran % (Auto) 0.200, Neut % (Auto) 35.0 L, Lymph % (Auto) 50.5 H, [place] % (Auto) 9.1, Eos % (Auto) 4.6, Baso % (Auto) 0.6, Absolute Neuts (auto) 2.9, Absolute Lymphs (auto) 4.15, Nucleated RBC % 0, Reactive Lymphocytes 2+, Platelet Estimate ADEQUATE 07/20/19 05:20: Sodium 137, Potassium 3.8, Chloride 107, Carbon Dioxide 24.0, Anion Gap 6, BUN 17, Creatinine 0.61, Estim Creat Clear Calc 100.57, Est GFR (MDRD) Af Amer 136, Est GFR (MDRD) Non-Af 113, BUN/Creatinine Ratio 27.9 H, Glucose 162 H, Calcium 8.6 07/20/19 06:09: POC Glucose 165 H 07/20/19 10:15: Urine Test Negative Patient Problems: Active and Suspected Problems (Last Updated 05/06/19 @ 11:35 by Noe Rouse MD) Exertional chest pain (Acute) Subjective: Please see progress note of today. Patient had right radial artery access cardiac cath. No hematoma or bleeding. Rest of the physical findings remain the same. - Physical Exam Vitals/I&O's: Vital Signs Temp Pulse Resp BP Pulse Ox 97.5 F L 78 18 140/80 H 99 07/20/19 13:30 07/20/19 14:47 07/20/19 13:30 07/20/19 14:47 07/20/19 13:30 Oxygen Delivery Method Room Air Weight: 310 lb 13.628 oz Body Mass Index (BMI) 53.3 Finger Stick Blood Glucose 328 Intake and Output for Last 24 Hours 07/18/19 07/19/19 07/20/19 23:59 23:59 23:59 Intake Total 370 / 370 1238.75 / 1238.75 Balance 370 / 370 1238.75 / 1238.75 Laboratory Results 07/19/19 14:35: D-Dimer Quant (PE/DVT) 7.14 H* 07/19/19 18:02: POC Glucose 267 H 07/19/19 18:08: Troponin I < 0.015 07/19/19 20:48: Troponin I < 0.015 07/19/19 21:46: POC Glucose 257 H 07/20/19 05:20: WBC 8.2, RBC 4.15 L, Hgb 13.0, Hct 38.9, MCV 93.7, MCH 31.3, MCHC 33.4, RDW Std Deviation 44.8 H, RDW Coeff of Whitney 13.1, Plt Count 229, MPV 10.4, Immature Gran % (Auto) 0.200, Neut % (Auto) 35.0 L, Lymph % (Auto) 50.5 H, [place] % (Auto) 9.1, Eos % (Auto) 4.6, Baso % (Auto) 0.6, Absolute Neuts (auto) 2.9, Absolute Lymphs (auto) 4.15, Nucleated RBC % 0, Reactive Lymphocytes 2+, Platelet Estimate ADEQUATE 07/20/19 05:20: Sodium 137, Potassium 3.8, Chloride 107, Carbon Dioxide 24.0, Anion Gap 6, BUN 17, Creatinine 0.61, Estim Creat Clear Calc 100.57, Est GFR (MDRD) Af Amer 136, Est GFR (MDRD) Non-Af 113, BUN/Creatinine Ratio 27.9 H, Glucose 162 H, Calcium 8.6 07/20/19 06:09: POC Glucose 165 H 07/20/19 10:15: Urine Test Negative Current Medications Albuterol Sulfate (Ventolin Aerosols) 2.5 mg INHALATION Q4H PRN PRN PRN Reason: Wheezing Albuterol Sulfate (Ventolin Aerosols) 2.5 mg INHALATION Q6HWA.RT [facility]IS Last Admin: 07/20/19 13:02 Dose: Not Given Documented by: Alprazolam (Xanax) 1 mg PO QHS PRN PRN Reason: insomnia Last Admin: 07/19/19 22:44 Dose: 1 mg Documented by: Aspirin (Aspirin, Baby) 81 mg PO DAILY@0800 [facility] Last Admin: 07/20/19 05:51 Dose: 81 mg Documented by: Atorvastatin Calcium (Lipitor) 80 mg PO QHS [facility] Last Admin: 07/19/19 21:24 Dose: 80 mg Documented by: Budesonide (Pulmicort Aerosol) 0.5 mg INHALATION Q12H.RT [facility] Last Admin: 07/20/19 06:50 Dose: 0.5 mg Documented by: Bupropion HCl (Wellbutrin Xl) 300 mg PO DAILY [facility] Last Admin: 07/20/19 14:44 Dose: 300 mg Documented by: Carvedilol (Coreg) 50 mg PO BID [facility] Last Admin: 07/20/19 06:13 Dose: 50 mg Documented by: Clopidogrel Bisulfate (Plavix) 75 mg PO DAILY [facility] Last Admin: 07/20/19 05:51 Dose: 75 mg Documented by: Cyclobenzaprine HCl (Flexeril) 10 mg PO TID PRN PRN PRN Reason: MUSCLE SPASM Enoxaparin Sodium (Lovenox) 40 mg SC DAILY@0600 [facility] Last Admin: 07/20/19 05:51 Dose: Not Given Documented by: Glucagon () 1 mg IM .X1 PRN PRN Reason: Hypoglycemia Dextrose (Dextrose 10%-Water) 250 mls @ 999 mls/hr IV .Q16M PRN; Protocol PRN Reason: HYPOGLYCEMIA Sodium Chloride () 1,000 mls @ 75 mls/hr IV .[id number] [facility] Last Infusion: 07/20/19 12:35 Dose: 0 mls/hr Documented by: Sodium Chloride () 1,000 mls @ 100 mls/hr IV .Q10H [facility] Stop: 07/20/19 16:24 Last Admin: 07/20/19 13:39 Dose: 100 mls/hr Documented by: Insulin Human Lispro (Humalog Kwikpen (Bkc)) 28 unit SC TIDCM [facility] Last Admin: 07/20/19 15:06 Dose: 28 u Documented by: Insulin Human Lispro (Humalog Kwikpen ([facility])) 0 unit SC ACHS [facility]; Protocol Last Admin: 07/20/19 15:09 Dose: 10 units Documented by: Insulin Human NPH (Humulin N ([facility])) 32 units SC BIDAC [facility] Last Admin: 07/20/19 15:08 Dose: 32 u Documented by: Levothyroxine Sodium (Synthroid) 25 mcg PO DAILY@0600 [facility] Last Admin: 07/20/19 05:50 Dose: 25 mcg Documented by: Levothyroxine Sodium (Synthroid) 200 mcg PO DAILY@0600 [facility] Last Admin: 07/20/19 05:50 Dose: 200 mcg Documented by: Lisinopril (Zestril) 40 mg PO DAILY [facility] Last Admin: 07/20/19 05:51 Dose: 40 mg Documented by: Morphine Sulfate () 2 mg IV Q3H PRN PRN PRN Reason: Pain Score 6-10/10 Last Admin: 07/20/19 14:37 Dose: 2 mg Documented by: Nitroglycerin (Nitrostat) 0.4 mg SUBLINGUAL Q5M PRN PRN Reason: Chest pain Last Admin: 07/19/19 14:07 Dose: 0.4 mg Documented by: Nitroglycerin (Nitrobid) 1 inch TRANSDERM. Q6 [facility] Last Admin: 07/20/19 14:47 Dose: 1 inch Documented by: Nutritional Formula (Lactose Free) (Ensure Enlive) 120 ml PO 4X/DAY [facility] Last Admin: 07/20/19 14:50 Dose: Not Given Documented by: Ondansetron HCl (Zofran Odt) 4 mg PO Q8H PRN PRN PRN Reason: NAUSEA Ondansetron HCl (Zofran) 4 mg IV Q8H PRN PRN PRN Reason: NAUSEA/VOMITING Pantoprazole Sodium (Protonix) 40 mg PO DAILY [facility] Last Admin: 07/20/19 14:45 Dose: 40 mg Documented by: Sodium Chloride () 10 - 40 ml IV UD PRN PRN Reason: SALINE FLUSH Last Admin: 07/20/19 00:45 Dose: 20 ml Documented by: Topiramate (Topamax) 25 mg PO DAILY [facility] Last Admin: 07/20/19 14:52 Dose: Not Given Documented by: Trazodone HCl (Desyrel) 50 mg PO QHS PRN PRN PRN Reason: SLEEP Venlafaxine HCl (Effexor Xr) 75 mg PO DAILY [facility] Last Admin: 07/20/19 14:46 Dose: 75 mg Documented by: Discharge Activity: May Not Drive - for about 1 week Additional Activity Instructions:: The patient is instructed to hold metformin, naproxen for 3 days and lisinopril for 2 days Call your doctor if you observe: Fever of 101 or Higher, Coldness, Increased Pain, Numbness or Tingling, Inability to urinate, Inability to have a bowel movement, Shortness of breath, Dizziness, Fainting spells, Swelling in the ankles, Chest pain, Prolonged hiccoughing, Increased palpitations (irregular heartbeat), Uncontrolled pain Home Medications: Medications to take at Discharge Aspirin [Aspirin, Baby] 81 mg PO DAILY@0800 06/11/15 Clopidogrel Bisulfate [Plavix] 75 mg PO DAILY 06/11/15 Albuterol Inhaler [Ventolin Hfa] 1 - 2 puff INHALATION Q4H PRN PRN #1 inhaler 10/15/15 Pantoprazole Sodium [Protonix] 40 mg PO DAILY 09/23/16 Ondansetron [Zofran Odt] 4 mg PO Q8H PRN PRN #10 tablet 03/07/18 ALPRAZolam [Xanax] 1 mg PO QHS PRN 08/18/18 Atorvastatin Calcium [Lipitor] 80 mg PO QHS #60 tablet 08/20/18 Bupropion HCl [Bupropion Xl] 300 mg PO DAILY 05/04/19 Carvedilol [Coreg (Beta Monisha)] 25 mg PO BID 05/04/19 Levothyroxine Sodium [Synthroid] 225 mcg PO DAILY 05/04/19 Venlafaxine HCl [Venlafaxine HCl ER] 225 mg PO DAILY 05/04/19 Budesonide/Formoterol 160/4.5 [Symbicort 160/4.5 Mcg Inhaler (SP)] 2 puff PO BID 05/07/19 Insulin Regular, Human [Novolin R] 26 units SUBCUT TIDCM 05/07/19 Insulin NPH Human [Humulin N Pen] 32 units SUBCUT BIDAC 07/19/19 Topiramate 25 mg PO DAILY 07/19/19 cycloBENZAPRine HCl [Flexeril] 5 mg PO TID PRN PRN 07/19/19 traZODone [Desyrel] 50 mg PO QHS PRN PRN 07/19/19 Lisinopril [Zestril] 40 mg PO DAILY #0 07/20/19 Metformin HCl [Metformin HCl ER] 1,000 mg PO DAILY #0 07/20/19 Naproxen 500 mg PO BID PRN #0 07/20/19 Ranolazine [Ranexa] 500 mg PO BID #60 tab 07/20/19 Following Prescrptions Were Given to Patient: Ranolazine [Ranexa] 500 mg PO BID #60 tab Transmission Status: Pending to [facility] Primary Care Physician: Carlotta Galindo MD [Primary Care Provider] - Please follow up with your Primary Care Physician in: in 1 week Please Follow Up With: Carlotta Galindo MD Please Follow Up With: Juan Manuel Lucero MD When: in 3-4 weeks Medical Necessity - Tobacco Use Smoking Status: Current every day smoker Tobacco Use: Cigarettes Meaningful Use Info Meaningful Use Diagnoses (Choose all that apply): None applicable Code Visit Please cancel the progress note billing charge for today OBSV E&M: 75855 Observation care discharge
[2019-07-20 17:20] LABS: Bedside Glucose 389 mg/dL (70-110)
[2019-07-20 18:01] LABS: Bedside Glucose 350 mg/dL (70-110)
== END 2019-07-20 15:17 | disposition home or self-care (01) ==
LOC: ED 15:53 → PCU 16:18
PROVIDERS: Specialist; Admitting Provider Student in an Organized Health Care Education/Training Program; Emergency Provider Emergency Medicine; Family Provider Internal Medicine; PCP Internal Medicine; Referring Provider Student in an Organized Health Care Education/Training Program; Visit Provider Internal Medicine
DX: I25.110 Atherosclerotic heart disease of native coronary artery with unstable angina pectoris (principal); T82.855A Stenosis of coronary artery stent, initial encounter; E11.9 Type 2 diabetes mellitus without complications; I10 Essential (primary) hypertension; K21.9 Gastro-esophageal reflux disease without esophagitis; E03.9 Hypothyroidism, unspecified; F41.9 Anxiety disorder, unspecified; R94.31 Abnormal electrocardiogram [ECG] [EKG]; R00.0 Tachycardia, unspecified; E78.5 Hyperlipidemia, unspecified; Y71.8 Miscellaneous cardiovascular devices associated with adverse incidents, not elsewhere classified; E66.01 Morbid (severe) obesity due to excess calories; F32.9 Major depressive disorder, single episode, unspecified; J45.909 Unspecified asthma, uncomplicated; F17.210 Nicotine dependence, cigarettes, uncomplicated; Z95.5 Presence of coronary angioplasty implant and graft; Z86.718 Personal history of other venous thrombosis and embolism; Z68.43 Body mass index [BMI] 50.0-59.9, adult; Z71.3 Dietary counseling and surveillance; Z79.899 Other long term (current) drug therapy; Z79.82 Long term (current) use of aspirin; Z79.4 Long term (current) use of insulin
CPT/HCPCS: 36415; 71045; 71275; 80048; 81025; 82962; 84484; 85025; 85379; 93005; 93458; 93571; 94640; 96361; 96372; 96374; 96376; 97802; 99152; 99153; 99218; 99285; 99406; J0153; J7030; Q9967; A4216; C1769; C1887; C1894; G0378

== ENCOUNTER 2019-10-16 18:14 | Inpatient (IN) | payer MEDICARE, MEDICAID, SELFPAY ==
[2019-05-06 13:18] VITALS: BMI 56.7
[2019-07-19 16:48] VITALS: BMI 53.3
[2019-10-16] VITALS (11 sets, daily range): BP systolic 88–179; BP diastolic 54–105; PULSE 91–114; RESP 11–20; TEMP 36.4–36.9; O2SAT 96–98; BMI 49.3; BMI 48.4
--- NOTE | 2019-10-16 18:27 | EKG12_ITS ---
Test Reason : CP Blood Pressure : / mmHG Vent. Rate : 110 BPM Atrial Rate : 110 BPM P-R Int : 150 ms QRS Dur : 078 ms QT Int : 336 ms P-R-T Axes : 033 001 030 degrees QTc Int : 454 ms Sinus tachycardia Otherwise normal ECG Confirmed by REHAN ADEN MD ([id number]), video editor GEORGE WONG ([id number]) on 10/19/2019 8:45:15 AM Referred By: KAYDEN Confirmed By:REHAN ADEN MD
[2019-10-16 18:40] LABS: Absolute Lymphocyte Count 4.97 X10^3/uL (0.83-4.51); Absolute Neutrophil Count 6.3 X10^3/uL (2.0-7.7); Basophil# 0.05 X10^3/uL; Basophil% 0.4 % (0-1); Eosinophil# 0.13 X10^3/uL; Hematocrit 41.6 % (37-47); Hemoglobin 14.4 g/dL (12.0-15.0); Lymphocyte # 4.97 X10^3/ul (4.0); Mean Corp Hgb Conc 34.6 g/dL (32-36); Mean Corpuscular Hgb 32.1 pg (27.0-32.0); Mean Corpuscular Volume 92.9 fL (81-99); Mean Platelet Vol. 10.4 fl (6.2-12.0); Monocyte# 0.95 X10^3/uL; Monocyte% 7.7 % (0-10); NRBC Flagged by Analyzer 0 % (0-5); Neutrophil # 6.27 X10^3/uL (2.7-7.7); Neutrophil % 50.6 % (47-70); POSITIVE MORPHOLOGY YES; Platelet Count 307 K/mm3 (150-450); RBC Distribution Width CV 12.7 % (11.6-14.6); RBC Distribution Width SD 42.9 fl (35.1-43.9); Red Blood Count 4.48 M/mm3 (4.2-5.4); White Blood Count 12.4 K/mm3 (4.4-11.0)
--- NOTE | 2019-10-16 18:40 | RAD_ITS ---
STUDY: X-RAY CHEST REASON FOR EXAM: Female, 44 years old. Chest pain, cough, shortness of breath TECHNIQUE: Single AP portable view of the chest. COMPARISON: 07/19/2019. FINDINGS: The lungs are clear and expanded. There is no demonstrated pleural abnormality. Normal size heart. Normal mediastinum and larisa. Normal visualized pulmonary arteries. Normal visualized aortic arch and descending thoracic aorta. Normal visualized thoracic spine. Normal visualized ribs, clavicles, and shoulders. There is no demonstrated abnormality of the visualized soft tissue structures of the upper abdomen. RAD/Chest 1 View (Portable) IMPRESSION: Normal x-ray examination of the chest. Electronically Signed: Benja Mckinnon MD at 19:12 EDT , Service support ,
[2019-10-16 18:44] LABS: Differential Indicated SCAN CRITERIA MET
--- NOTE | 2019-10-16 18:44 | ED.VISSUMM ---
- ER Visit Summary Date of Service: 10/16/19 Chief Complaint: Exertional chest pain exertional shortness of breath History of Present Illness: The patient is a [address] of CAD with prior [place]. 5 cardiac stents. Known coronary disease. Also COPD, hypertension, high cholesterol and diabetes. Prior blood clot. Patient is on Plavix and aspirin for her stents. Says her last heart cath showed disease but she did not need a new stent. States that recently she has had exertional chest pain exertional shortness of breath. No hemoptysis. No leg swelling. Physical Examination: Middle-aged female vital signs are stable afebrile. Pulse ox 98% room air no signs hypoxia. H EENT exam unremarkable. Neck nontender no JVD. Lungs clear to auscultation. Heart regular rhythm rate about 110 no murmur. Abdomen soft obese nontender normal bowel sounds no peritoneal signs. Patient moving all 4 extremities. Calves nontender without edema or cords. Neurologically she is awake alert with no focal motor deficits. Test Results: EKG shows sinus tachycardia rate of 110 with no acute signs of [place] or ischemia. Unchanged from an EKG from July. Chest x-ray portable 1 view shows no acute abnormality. Normal cardiac silhouette mediastinum. Read by myself. CBC white count 12. H&H 14 and 41. Chemistries unremarkable normal creatinine and gap. Troponin normal. Emergency Department Course and Treatment: Patient has concerning exertional chest pain or shortness of breath. Has known coronary disease. Most likely need to be admitted. She undergo cardiac work-up treated with p.o. aspirin. She also requests something pain to be given morphine and topical nitroglycerin. Treatment Plan: Repeat exam patient is doing well at 1913 p.m. In light that she is having worsening exertional chest pain or shortness of breath symptoms and has a known 67% lesion from her last heart cath 2 to 3 months ago. Disposition: Admission Impression: Acute exertional chest pain and dyspnea Rule out unstable angina History of CAD, [place] with 5 cardiac stents. This note was generated with [employer] dictation software. It may contain incorrect words, spelling, and punctuation that were not noted in review of the chart prior to signing ED Disposition - Plan for ED Patient: Referrals: Carlotta Galindo MD [Primary Care Provider] -
[2019-10-16] MEDS: Nitroglycerin Oint 1 INCH PACKET TRANSDERM. (18:59)
[2019-10-16] MEDS: Morphine 4 MG/ML Syringe IV (19:00)
[2019-10-16] MEDS: Aspirin 81 MG TAB.CHEW 324 MG PO (19:00)
[2019-10-16 19:02] LABS: Anion Gap 8 (5-15); BUN 13 mg/dL (7-18); BUN/Creat Ratio 16.8 RATIO (10-20); Chloride 105 mmol/L (98-107); Creatinine, Serum 0.77 mg/dL (0.55-1.02); EST Glomerular Filtration Rate 86 mL/min (>60); Est Glom Filt Rate - Afr Amer 104 mL/min (>60); Estimated Creatinine Clearance 85.46 ml/min; Glucose 283 mg/dL (74-106); Potassium 3.8 mmol/L (3.5-5.1); Sodium Level 135 mmol/L (136-145)
[2019-10-16 19:11] LABS: Differential Comment SCANNED
[2019-10-16] MEDS: Ondansetron 4 MG/2 ML Vial IV ×2 (20:09→21:15)
[2019-10-16] MEDS: morphine 8 MG/ML Syringe 6 MG IV (20:09)
--- NOTE | 2019-10-16 20:19 | HP.PCM_ITS ---
Problem List (1) Chest pain Status: Acute Qualifiers: Chest pain type: unspecified Qualified Code(s): R07.9 - Chest pain, unspecified (2) Constipation Status: Acute Qualifiers: Constipation type: unspecified constipation type Qualified Code(s): K59.00 - Constipation, unspecified (3) Diabetes mellitus, type II Status: Chronic Qualifiers: Diabetes mellitus continuous churn buttermaker insulin use: with longterm use Diabetes mellitus complication status: with other specified complication Qualified Code(s): E11.69 - Type 2 diabetes mellitus with other specified complication; Z79.4 - buttermaker helper (current) use of insulin (4) GEOVANI (obstructive sleep apnea) Status: Chronic (5) Chronic obstructive pulmonary disease Status: Chronic Qualifiers: COPD type: unspecified COPD Qualified Code(s): J44.9 - Chronic obstructive pulmonary disease, unspecified (6) Diabetes mellitus, type II Status: Chronic Qualifiers: Diabetes mellitus continuous churn buttermaker insulin use: with continuous churn buttermaker use Diabetes mellitus complication status: with other specified complication Qualified Code(s): E11.69 - Type 2 diabetes mellitus with other specified complication; Z79.4 - senior living (current) use of insulin (7) Atherosclerotic heart disease of [place] coronary artery without angina pectoris Status: Chronic Qualifiers: [place] vs. transplanted heart: unspecified whether [place] or transplanted heart Qualified Code(s): I25.10 - Atherosclerotic heart disease of [place] coronary artery without angina pectoris Comment: Non obstructive coronary arteries; Widely patent recently placed DIAG and distal RCA stents. Non obstructive mid LAD just distal to DIAG branch as well as distal RCA. Pt's symptoms are atypical for angina and degree of chest pain is out of proportion to CAD found per cath 08/19/[address] Huerta (8) Essential hypertension Status: Chronic (9) Hypercholesterolemia Status: Chronic (10) Tobacco use Status: Chronic (11) Morbid obesity Status: Chronic (12) Hypothyroidism Status: Chronic Qualifiers: Hypothyroidism type: unspecified Qualified Code(s): E03.9 - Hypothyroidism, unspecified (13) GERD (gastroesophageal reflux disease) Status: Chronic Qualifiers: Esophagitis presence: esophagitis presence not specified Qualified Code(s): K21.9 - Gastro-esophageal reflux disease without esophagitis History of Present Illness Date of Admission: 10/16/19 Chief Complaint: Chest pain The patient is a 44 y/o F w/ PMHx: Hx DVT, Morbid Obesity, Diabetes mellitus type II, HTN, HLD, CAD s/p PCI x 5 most recently 08/12/2018 distal diagonal and distal RCA GERD, Hypothyroidism, Hx Pericarditis, GEOVANI, Tobacco use, Anxiety and Depression who presents to the [facility] ED on 10/16/19 with history of 1-1/2 weeks of intermittent midsternal nonradiating chest pressure ranging from 5-10 in severity, worse with any activity with associated dyspnea as well as nausea with out emesis and diaphoresis not improving and worsening in severity prompting eventual ED presentation. She also notes that she recently started Trulicity and since starting this medication has had some nausea as well as abdominal discomfort with constipation and notes that she has been attempting to self medicate but with only small stool firm output. Patient recently took 3 nitroglycerin at home prior to ED presentation but did have ongoing discomfort prompting Work-up in the ED included T 98.5, heart rate 91, BP 151/105, respiratory rate 19, 97% on room air, CBC with WC 12.4, hemoglobin 14.4, platelet 307 with no evidence of left shift with increased lymphocytes, BMP with sodium 135, glucose 283, troponin less than 0.015, initial EKG was sinus tachycardia with no acute evidence of ischemia, chest x-ray with no acute cardiopulmonary findings. In the ED patient ministered Zofran, Nitro-Bid, morphine a total of 10 mg IV, aspirin 324 mg p.o. x1. Patient asked several times for narcotic therapy while in the ED per discussion with ED physician. Despite nitroglycerin paste and morphine administration the ED patient noting she is having chest discomfort ongoing, reported ED physician nearly resolved however upon hospitalist evaluation noting 5-10 in severity. Past Medical History Past Medical History (Chronic Problems): Chronic Problems (Last Updated 05/06/19 @ 11:[address] Noe Rouse MD) History of coronary artery disease (Chronic) Diabetes mellitus, type II (Chronic) GEOVANI (obstructive sleep apnea) (Chronic) Chronic obstructive pulmonary disease (Chronic) Diabetes mellitus, type II (Chronic) Stented coronary artery (Chronic) 2.5 x 12 Elunir RAYMUNDO to D1 05/06/19; RAYMUNDO to distal diagonal and distal RCA 08/12/18; RAYMUNDO RCA 04/18/2010; RAYMUNDO LAD 11/25/2002 (all were done @ [facility] in [place], [place]) Atherosclerotic heart disease of [place] coronary artery without angina pectoris (Chronic) Non obstructive coronary arteries; Widely patent recently placed DIAG and distal RCA stents. Non obstructive mid LAD just distal to DIAG branch as well as distal RCA. Pt's symptoms are atypical for angina and degree of chest pain is out of proportion to CAD found per cath 08/19/[address] Huerta History of left heart catheterization (Chronic 08/19/18) Non obstructive coronary arteries; Widely patent recently placed DIAG and distal RCA stents. Non obstructive mid LAD just distal to DIAG branch as well as distal RCA 08/19/18; 12/09/12 Sleep-disordered breathing (Chronic) Essential hypertension (Chronic) Hypercholesterolemia (Chronic) Tobacco use (Chronic) Morbid obesity (Chronic) Hypothyroidism (Chronic) GERD (gastroesophageal reflux disease) (Chronic) Asthma (Chronic) DM (diabetes mellitus), type 1 (Chronic) Medical History: Medical History (Last Updated 05/06/19 @ 11:[address] Noe Rouse MD) Atherosclerotic heart disease of [place] coronary artery without angina pectoris (Chronic) I25.10 Non obstructive coronary arteries; Widely patent recently placed DIAG and distal RCA stents. Non obstructive mid LAD just distal to DIAG branch as well as distal RCA. Pt's symptoms are atypical for angina and degree of chest pain is out of proportion to CAD found per cath 08/19/[address] Huerta Sleep-disordered breathing (Chronic) G47.30 Essential hypertension (Chronic) I10 Hypercholesterolemia (Chronic) E78.00 Tobacco use (Chronic) Z72.0 Morbid obesity (Chronic) E66.01 Hypothyroidism (Chronic) E03.9 GERD (gastroesophageal reflux disease) (Chronic) K21.9 Asthma (Chronic) J45.909 DM (diabetes mellitus), type 1 (Chronic) History of anxiety Z86.59 Allergies metformin [From Glucophage] Adverse Reaction (Intermediate, Verified 10/16/19 18:16) Diarrhea Home Medications: Ambulatory Orders Medication Instructions Recorded Aspirin [Aspirin, Baby] 81 mg PO DAILY@0800 06/11/15 Clopidogrel Bisulfate [Plavix] 75 mg PO DAILY 06/11/15 Albuterol Inhaler [Ventolin Hfa] 1 - 2 puff INHALATION Q4H PRN PRN 10/15/15 #1 inhaler Pantoprazole Sodium [Protonix] 40 mg PO DAILY 09/23/16 Ondansetron [Zofran Odt] 4 mg PO Q8H PRN PRN #10 tablet 03/07/18 ALPRAZolam [Xanax] 1 mg PO QHS PRN 08/18/18 Atorvastatin Calcium [Lipitor] 80 mg PO QHS #60 tablet 08/20/18 Bupropion HCl [Bupropion Xl] 300 mg PO DAILY 05/04/19 Carvedilol [Coreg (Beta Monisha)] 25 mg PO BID 05/04/19 Levothyroxine Sodium [Synthroid] 225 mcg PO DAILY 05/04/19 Venlafaxine HCl [Venlafaxine HCl 225 mg PO DAILY 05/04/19 ER] Budesonide/Formoterol 160/4.5 2 puff PO BID 05/07/19 [Symbicort 160/4.5 Mcg Inhaler (SP)] Insulin Regular, Human [Novolin R] 26 units SUBCUT TIDCM 05/07/19 Insulin NPH Human [Humulin N Pen] 32 units SUBCUT BIDAC 07/19/19 Topiramate 50 mg PO DAILY 07/19/19 cycloBENZAPRine HCl [Flexeril] 5 mg PO TID PRN PRN 07/19/19 traZODone [Desyrel] 50 mg PO QHS PRN PRN 07/19/19 Lisinopril [Zestril] 40 mg PO DAILY #0 07/20/19 Naproxen 500 mg PO BID PRN #0 07/20/19 Dulaglutide [Trulicity] 1.5 mg SQ QWEEK 10/16/19 Surgical History: Surgical History (Last Updated 05/06/19 @ 15:21 by Ladonna Stahl) Stented coronary artery (Chronic) Z95.5 2.5 x 12 Elunir RAYMUNDO to D1 05/06/19; RAYMUNDO to distal diagonal and distal RCA 08/12/18; RAYMUNDO RCA 04/18/2010; RAYMUNDO LAD 11/25/2002 (all were done @ [facility] in [place], [place]) History of left heart catheterization (Chronic) Onset Date: 08/19/18 Z98.890 Non obstructive coronary arteries; Widely patent recently placed DIAG and distal RCA stents. Non obstructive mid LAD just distal to DIAG branch as well as distal RCA 08/19/18; 12/09/12 History of back surgery Z98.890 lumbar in 2013, 2015 History of delivery Z98.891 History of cholecystectomy Z90.49 History of dilatation and curettage Z98.890 History of tonsillectomy and adenoidectomy Z98.890 History of tubal ligation Z98.51 Surgical History: angioplasty - PTCA ?[facility] at [facility], cholecystectomy, - - 5 stents in the past, 2 back surgeries with hardware of the lumbar spine, carpal tunnel, tonsils, section, bilateral tubal ligation, I&D of breast abscesses, cervical conization Psychiatric History: Anxiety, Depression 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 Tobacco Use: Cigarettes Alcohol: None Drugs: None - *Family History Maternal Family History: Family History (Last Updated 09/10/18 @ 16:59 by Ladonna Stahl) Mother Cancer Father Hypertension COPD (chronic obstructive pulmonary disease) Daughter Factor V deficiency Grandmother Cancer COPD (chronic obstructive pulmonary disease) History Items: Cancer, Diabetes, Heart Disease, Hypertension Paternal Family History: Family History (Last Updated 09/10/18 @ 16:59 by Ladonna Stahl) Mother Cancer Father Hypertension COPD (chronic obstructive pulmonary disease) Daughter Factor V deficiency Grandmother Cancer COPD (chronic obstructive pulmonary disease) History Items: Diabetes, Heart Disease, Hypertension, Pulmonary Disease Review of Systems Constitutional: Reports: Anorexia, Malaise, Weakness, Fatigue. Denies: Chills, Fever, Weight Change HEENT: Denies: Head Aches, Post Nasal Drip, Sinus Congestion, Sinus Drainage, Sore Throat Cardiovascular: Reports: Chest Pain, Chest Pressure. Denies: Chest Tightness, Heaviness, Light Headedness, Orthopnea, Palpitations, Syncope Respiratory: Reports: Cough - Mild occasional cough., Shortness of Breath, Shortness of breath at rest, Shortness of breath upon exertion. Denies: Sputum production, Wheezing Gastrointestinal: Reports: Abdominal Pain, Constipation, Nausea. Denies: Vomiting Genitourinary: Denies: Dysuria Musculoskeletal: Denies: Joint Pain, Joint Tenderness Skin: Denies: Rash, Wounds Neurological: Denies: Numbness, Tingling, Focal weakness Psychiatric: Reports: Anxiety, Depression. Denies: Homicidal Ideations, Suicidal Ideations Hematologic/ Lymphatic: Denies: Easy Bruising, Easy Bleeding VTE Information - Inpt Only VTE Present on Admission: No VTE Mechan Device Prophylaxis: SCD's VTE Pharm Prophylaxis ordered?: Yes Patient Problems: Active and Suspected Problems (Last Updated 05/06/19 @ 11:[address] Noe Rouse MD) Constipation (Acute) Subjective: Seated upright in the ED bed, improved from initial presentation but currently rating her pain 5-6 of 10 and asking for more pain medications. Objective: Physical Examination: General: awake, alert, oriented x 3 and cooperative, seated upright in the ED bed, notes chest discomfort improved but still rating it 5 out of 10 in severity. Skin: normal color, turgor, no icterus, cyanosis. HEENT: AT/NC, EOMI, PERRLA, mildly dry MM, no carotid bruits or JVD noted; however, thickened neck makes ablation difficult. Lungs: CTA bilaterally, moderate effort, mild decrease BL bases, no rales, ronchi or wheezing. Heart: Regular rate and rhythm; no gallop, rub audible. Abdomen: soft, morbidly obese, all discomfort generally and notes that she has had 2 weeks of intermittent constipation and self medicated recently, difficult to assess distention given habitus, hyperactive BS, unable to assess HSM well. Extremities: no cyanosis, clubbing, BL ankle edema. Neurological: patient awake, alert, oriented x 3; cognitive function intact; pupils equally reactive to light and accomodation; cranial nerves II-XII grossly normal, moving all 4 extremities, no focal deficits, strength moderately global decreased secondary to acute complaints. Psychiatric: affect appears normal, mildly fatigued, no acute evidence of depressive or anxiety feelings. - Physical Exam Vitals/I&O's: Vital Signs Temp Pulse Resp BP Pulse Ox 98 F 105 H 16 179/105 H 96 10/16/19 18:15 10/16/19 19:44 10/16/19 19:44 10/16/19 19:44 10/16/19 19:44 Oxygen Delivery Method Room Air Weight: 305 lb 8.971 oz Body Mass Index (BMI) 49.3 Finger Stick Blood Glucose 328 Laboratory Results 10/16/19 18:30: WBC 12.4 H, RBC 4.48, Hgb 14.4, Hct 41.6, MCV 92.9, MCH 32.1 H, MCHC 34.6, RDW Std Deviation 42.9, RDW Coeff of Whitney 12.7, Plt Count 307, MPV 10.4, Immature Gran % (Auto) 0.300, Neut % (Auto) 50.6, Lymph % (Auto) 40.0, [place] % (Auto) 7.7, Eos % (Auto) 1.0, Baso % (Auto) 0.4, Absolute Neuts (auto) 6.3, Absolute Lymphs (auto) 4.97 H, Nucleated RBC % 0, Differential Comment SCANNED 10/16/19 18:30: Sodium 135 L, Potassium 3.8, Chloride 105, Carbon Dioxide 22.0, Anion Gap 8, BUN 13, Creatinine 0.77, Estim Creat Clear Calc 85.46, Est GFR (MDRD) Af Amer 104, Est GFR (MDRD) Non-Af 86, BUN/Creatinine Ratio 16.8, Glucose 283 H, Calcium 9.0, Troponin I < 0.015 Assessment/Plan All Active Problems (Last Updated 05/06/19 @ 11:[address] Noe Rouse MD) Exertional chest pain (Acute) Constipation (Acute) Chest pain (Acute) 1. Chest Pain: ED evaluation with troponin less than 0.015, chest x-ray with no acute cardiopulmonary process, EKG with sinus tachycardia with no acute evidence of ischemia. Will admit to PCU, place on a monitored bed to assure no acute myocardial infarction with serial cardiac enzymes and EKGs. Will plan consultation with cardiology given recent cardiac catheterization with decision previously for medical management with Dr. Busby planned evaluation in AM and decision on course. Will maintain NPO status after midnight in case of interventions. Requesting AM PT, PTT, CBC, BMP. FLP in AM. Mag pending. Will continue NG paste. 2. Constipation, new onset: Started following recent initiation of Trulicity which can be a common side effect, will initiate aggressive bowel regimen. 3. CAD: Status post PCI x5, most recently August 2018, most recent catheterization 07/20/[address] Miranda with noted CAD with minimal change compared to prior status post angioplasty 05/2019, EF 50% with mild inferior hypokinesis, no significant left ear or MR, evaluation of the RCA with stenoses felt appropriate for medical treatment at that time. Will continue aspirin, Plavix, statin, Coreg, lisinopril regimen. 4. Diabetes mellitus type II: Will continue home insulin regimen, ADA diet until NPO, accu checks w/ ISS. 5. Morbid Obesity: Weight loss and lifestyle changes encouraged. 6. Anxiety and depression: We will continue home Effexor, Xanax nightly trazodone regimen. 7. Hypertension: Continue home regimen including Coreg, lisinopril, PRN hydralazine. 8. Hyperlipidemia: Continue home statin regimen. AM FLP. 9. Hypothyroidism: Continue home synthroid regimen. 10. GERD: Continue home PPI regimen. 11. Chronic COPD: Hold home inhalers, transition to ATC duonebs, PRN albuterol. 12. Tobacco Abuse: Encouraged cessation, inpatient consultation per RT, NR if desired. 13. GEOVANI: CPAP q HS. 14. DVT prophylaxis: SCDs, Lovenox. OBSV E&M: [id number] Initial observation care L3
--- NOTE | 2019-10-16 21:58 | EKG12_ITS ---
Test Reason : CP ADMIT Blood Pressure : / mmHG Vent. Rate : 104 BPM Atrial Rate : 104 BPM P-R Int : 152 ms QRS Dur : 076 ms QT Int : 336 ms P-R-T Axes : 032 001 025 degrees QTc Int : 441 ms Sinus tachycardia Otherwise normal ECG When compared with ECG of 20-JUL-2019 05:09, No significant change was found Confirmed by KEIKO SILVA, REHAN ([id number]), rewrite editor GEORGE WONG ([id number] on 10/17/2019 11:11:12 AM Referred By: DR NEWELL Confirmed By:REHAN ADEN MD
[2019-10-16 22:37] LABS: Magnesium 1.7 mg/dL (1.6-2.6)
[2019-10-16] MEDS: 0.9% Saline Lock 10 ML Syringe IV (22:52)
[2019-10-16] MEDS: Magnesium Hydroxide 30 ML UDC PO (22:57)
[2019-10-16] MEDS: Carvedilol 25 MG Tablet PO (22:58)
[2019-10-16] MEDS: Ipratropium/Albuterol Sulfate 3 ML AMPUL.NEB INHALATION (23:10)
[2019-10-16 23:11] LABS: Bedside Glucose 147 mg/dL (70-110)
--- NOTE | 2019-10-16 23:13 | CPS ---
Patient is not interested in wearing our CPAP here at the hospital. Her machine got taken away due to non compliance. Trevor CELAYA
[2019-10-16] MEDS: 0.9% Normal Saline 1,000 ML 100 ML IV (23:35)
[2019-10-16] MEDS: proCHLORPERazine 10 MG/2 ML Vial 5 MG IV (23:41)
[2019-10-17] VITALS (11 sets, daily range): BP systolic 99–132; BP diastolic 61–84; PULSE 62–104; RESP 14–18; TEMP 36.5–36.8; O2SAT 96–98
[2019-10-17] MEDS: oxyCODONE 5 MG Tablet PO (00:10)
[2019-10-17] MEDS: ALPRAZolam 0.5 MG Tablet 1 MG PO (00:18)
[2019-10-17] MEDS: Morphine 4 MG/ML Syringe IV ×4 (04:08→13:47)
--- NOTE | 2019-10-17 05:55 | EKG12_ITS ---
Test Reason : AM EKG Blood Pressure : / mmHG Vent. Rate : 098 BPM Atrial Rate : 098 BPM P-R Int : 150 ms QRS Dur : 078 ms QT Int : 356 ms P-R-T Axes : 039 001 024 degrees QTc Int : 454 ms Normal sinus rhythm Normal ECG When compared with ECG of 16-OCT-2019 21:41, MANUAL COMPARISON REQUIRED, DATA IS UNCONFIRMED Confirmed by KEIKO SILVA, REHAN ([id number]), assignment editor GEORGE WONG ([id number] on 10/17/2019 11:07:40 AM Referred By: DR NEWELL Confirmed By:REHAN ADEN MD
[2019-10-17 06:00] LABS: Absolute Lymphocyte Count 4.17 X10^3/uL (0.83-4.51); Absolute Neutrophil Count 4.3 X10^3/uL (2.0-7.7); Basophil# 0.04 X10^3/uL; Basophil% 0.4 % (0-1); Eosinophils% 1.1 % (0-5); Hematocrit 40.8 % (37-47); Hemoglobin 13.8 g/dL (12.0-15.0); Lymphocyte # 4.17 X10^3/ul (4.0); Mean Corp Hgb Conc 33.8 g/dL (32-36); Mean Corpuscular Hgb 32.1 pg (27.0-32.0); Mean Corpuscular Volume 94.9 fL (81-99); Mean Platelet Vol. 10.4 fl (6.2-12.0); Monocyte# 0.86 X10^3/uL; Monocyte% 9.1 % (0-10); NRBC Flagged by Analyzer 0 % (0-5); Neutrophil # 4.26 X10^3/uL (2.7-7.7); Platelet Count 265 K/mm3 (150-450); RBC Distribution Width CV 13.1 % (11.6-14.6); RBC Distribution Width SD 44.4 fl (35.1-43.9); White Blood Count 9.5 K/mm3 (4.4-11.0)
[2019-10-17 06:13] LABS: Anion Gap 9 (5-15); BUN 15 mg/dL (7-18); BUN/Creat Ratio 22.6 RATIO (10-20); Calcium,Total 8.2 mg/dL (8.5-10.1); Chloride 105 mmol/L (98-107); Cholesterol 111 mg/dL (200); Creatinine, Serum 0.66 mg/dL (0.55-1.02); EST Glomerular Filtration Rate 102 mL/min (>60); Est Glom Filt Rate - Afr Amer 123 mL/min (>60); Estimated Creatinine Clearance 99.71 ml/min; Glucose 226 mg/dL (74-106); High Density Lipoprotein 47 mg/dL; Potassium 3.7 mmol/L (3.5-5.1); Sodium Level 135 mmol/L (136-145); Triglycerides 101 mg/dL; Very Low Density Lipoprotein 20 mg/dL (5-40)
[2019-10-17 06:18] LABS: International Normalized Ratio 1.1; Partial Thromboplast Time 24.8 Seconds (24.1-36.2); Prothrombin Time (Protime)PT. 13.4 SECONDS (11.7-14.9)
[2019-10-17] MEDS: Ipratropium/Albuterol Sulfate 3 ML AMPUL.NEB INHALATION ×2 (07:00→18:47)
[2019-10-17] MEDS: Clopidogrel Bisulfate 75 MG Tablet PO (07:40)
[2019-10-17] MEDS: Levothyroxine 125 MCG Tablet PO (07:40)
[2019-10-17] MEDS: Aspirin 81 MG TAB.CHEW PO (07:40)
[2019-10-17] MEDS: Levothyroxine 100 MCG Tablet PO (07:40)
[2019-10-17] MEDS: proCHLORPERazine 10 MG/2 ML Vial 5 MG IV (07:41)
--- NOTE | 2019-10-17 07:48 | PCM.PN.HOSP ---
Patient Problems: Active and Suspected Problems (Last Updated 05/06/19 @ 11:[address] Noe Rouse MD) Constipation (Acute) Reason for Visit: Follow-up on chest pain Subjective: Patient was seen and examined. She complains of sharp chest pain, substernal, occasional radiation to the left shoulder. Chest pain is worse on ambulation. Going for stress test today. Vitals/I&O's: Vital Signs Temp Pulse Resp BP Pulse Ox 97.9 F 95 16 109/62 97 10/17/19 07:35 10/17/19 07:35 10/17/19 07:35 10/17/19 07:35 10/17/19 07:35 Oxygen Delivery Method Room Air Weight: 136.3 kg Body Mass Index (BMI) 48.4 Finger Stick Blood Glucose 328 Intake and Output for Last 24 Hours 10/15/19 10/16/19 10/17/19 23:59 23:59 23:59 Intake Total 480 / 480 591.67 / 591.67 Balance 480 / 480 591.67 / 591.67 General: Alert, Oriented x3, Cooperative, No apparent distress HEENT: Atraumatic, PERRLA, EOMI, Normocephalic Oral: Moist Mucosa Neck: Supple Lungs: Clear to auscultation, Normal air movement Cardiovascular: Regular rate, Regular Rhythm, Normal S1, Normal S2, No murmurs Abdomen: Bowel Sounds Present, Soft, Non Tender, Non-Distended, No Hepato-splenomegaly Extremities: No edema Skin: No rashes, No breakdown Musculoskeletal: No Tenderness to Palpation of Joints or Extremities Lymphatic: No Cervical, Supraclavicular, or Inguinal Adenopathy Neurological: Cranial nerves II-XII grossly intact Psych/Mental Status: Normal Affect, Appropriate Laboratory Results 10/16/19 18:30: WBC 12.4 H, RBC 4.48, Hgb 14.4, Hct 41.6, MCV 92.9, MCH 32.1 H, MCHC 34.6, RDW Std Deviation 42.9, RDW Coeff of Whitney 12.7, Plt Count 307, MPV 10.4, Immature Gran % (Auto) 0.300, Neut % (Auto) 50.6, Lymph % (Auto) 40.0, Knox % (Auto) 7.7, Eos % (Auto) 1.0, Baso % (Auto) 0.4, Absolute Neuts (auto) 6.3, Absolute Lymphs (auto) 4.97 H, Nucleated RBC % 0, Differential Comment SCANNED 10/16/19 18:30: Sodium 135 L, Potassium 3.8, Chloride 105, Carbon Dioxide 22.0, Anion Gap 8, BUN 13, Creatinine 0.77, Estim Creat Clear Calc 85.46, Est GFR (MDRD) Af Amer 104, Est GFR (MDRD) Non-Af 86, BUN/Creatinine Ratio 16.8, Glucose 283 H, Calcium 9.0, Troponin I < 0.015 10/16/19 22:10: Troponin I < 0.015 10/16/19 22:10: Magnesium 1.7 10/16/19 23:02: POC Glucose 147 H 10/17/19 00:24: Troponin I < 0.015 10/17/19 05:26: WBC 9.5, RBC 4.30, Hgb 13.8, Hct 40.8, MCV 94.9, MCH 32.1 H, MCHC 33.8, RDW Std Deviation 44.4 H, RDW Coeff of Whitney 13.1, Plt Count 265, MPV 10.4, Immature Gran % (Auto) 0.400, Neut % (Auto) 45.0 L, Lymph % (Auto) 44.0 H, Knox % (Auto) 9.1, Eos % (Auto) 1.1, Baso % (Auto) 0.4, Absolute Neuts (auto) 4.3, Absolute Lymphs (auto) 4.17, Nucleated RBC % 0 10/17/19 05:26: PT 13.4, INR 1.1, APTT 24.8 10/17/19 05:26: Sodium 135 L, Potassium 3.7, Chloride 105, Carbon Dioxide 21.0, Anion Gap 9, BUN 15, Creatinine 0.66, Estim Creat Clear Calc 99.71, Est GFR (MDRD) Af Amer 123, Est GFR (MDRD) Non-Af 102, BUN/Creatinine Ratio 22.6 H, Glucose 226 H, Calcium 8.2 L, Triglycerides 101, Cholesterol 111, LDL Cholesterol 44, VLDL Cholesterol 20, HDL Cholesterol 47 Current Medications Acetaminophen (Tylenol) 650 mg PO Q6H PRN PRN PRN Reason: Pain Score 1-10/Temp > 100.7 F Al Hydroxide/Mg Hydroxide (Mylanta Ii) 30 ml PO Q6H PRN PRN PRN Reason: Gastric Burning Albuterol Sulfate (Ventolin Aerosols) 2.5 mg INHALATION Q2H PRN PRN PRN Reason: Dyspnea, wheezing Albuterol/Ipratropium (Duoneb) 3 ml INHALATION Q6HWA.RT [facility] Last Admin: 10/17/19 07:00 Dose: 3 ml Documented by: Alprazolam (Xanax) 1 mg PO QHS PRN PRN PRN Reason: ANXIETY Last Admin: 10/17/19 00:18 Dose: 1 mg Documented by: Aspirin (Aspirin, Baby) 81 mg PO DAILY@0800 [facility] Last Admin: 10/17/19 07:40 Dose: 81 mg Documented by: Atorvastatin Calcium (Lipitor) 80 mg PO QHS [facility] Last Admin: 10/16/19 22:46 Dose: Not Given Documented by: Bupropion HCl (Wellbutrin Xl) 300 mg PO DAILY [facility] Carvedilol (Coreg) 25 mg PO BID [facility] Last Admin: 10/16/19 22:58 Dose: 25 mg Documented by: Clopidogrel Bisulfate (Plavix) 75 mg PO DAILY [facility] Last Admin: 10/17/19 07:40 Dose: 75 mg Documented by: Cyclobenzaprine HCl (Flexeril) 5 mg PO TID PRN PRN PRN Reason: MUSCLE SPASM Dextrose (D50w Syringe) 0 gm IV X1 PRN; Protocol PRN Reason: Hypoglycemia Enoxaparin Sodium (Lovenox) 40 mg SC DAILY [facility] Glucagon () 1 mg IM .X1 PRN PRN Reason: Hypoglycemia Guaifenesin (Robitussin) 20 ml PO Q4H PRN PRN PRN Reason: COUGH Hydralazine HCl (Apresoline Iv) 10 mg IV Q4H PRN PRN PRN Reason: SBP > 160 Sodium Chloride () 1,000 mls @ 100 mls/hr IV .Q10H [facility] Last Infusion: 10/17/19 01:15 Dose: 100 mls/hr Documented by: Sodium Chloride () 250 mls @ 15 mls/hr IV .[id number] PRN PRN Reason: Saline Flush Sodium Chloride () 250 mls @ 15 mls/hr IV .[id number] PRN PRN Reason: Additional IVPB Infusion Insulin Human Lispro (Humalog Kwikpen (Bkc)) 26 unit SC 0800,1200,1700 [facility] Insulin Human Lispro (Humalog Kwikpen (Bkc)) 0 unit SC ACHS [facility]; Protocol Last Admin: 10/16/19 23:03 Dose: Not Given Documented by: Insulin Human NPH (Humulin N (Bk)) 32 units SC BIDAC [facility] Levothyroxine Sodium (Synthroid) 125 mcg PO DAILY@0600 [facility] Last Admin: 10/17/19 07:40 Dose: 125 mcg Documented by: Levothyroxine Sodium (Synthroid) 100 mcg PO DAILY@0600 [facility] Last Admin: 10/17/19 07:40 Dose: 100 mcg Documented by: Lisinopril (Zestril) 40 mg PO DAILY [facility] Magnesium Hydroxide (Milk Of Magnesia) 30 ml PO DAILY PRN PRN PRN Reason: Constipation Melatonin (Melatonin) 3 mg PO QHS PRN PRN PRN Reason: INSOMNIA Morphine Sulfate () 4 mg IV Q3H PRN PRN PRN Reason: Pain Score 6-10/10 Last Admin: 10/17/19 07:41 Dose: 4 mg Documented by: Nitroglycerin (Nitrobid) 1 inch TRANSDERM. Q6 [facility] Last Admin: 10/17/19 06:15 Dose: Not Given Documented by: Nutritional Formula (Lactose Free) (Ensure Enlive) 120 ml PO 4X/DAY [facility] Ondansetron HCl (Zofran) 4 mg IV Q8H PRN PRN PRN Reason: NAUSEA/VOMITING Oxycodone HCl (Oxyir) 5 mg PO Q4H PRN PRN PRN Reason: Pain Score 4-5/10 Last Admin: 10/17/19 00:10 Dose: 5 mg Documented by: Pantoprazole Sodium (Protonix) 40 mg PO DAILY [facility] Prochlorperazine Edisylate (Compazine Iv) 5 mg IV Q4H PRN PRN PRN Reason: Breakthrough Nausea/Vomiting Last Admin: 10/17/19 07:41 Dose: 5 mg Documented by: Psyllium Hydrophilic Mucilloid (Metamucil) 1 packet PO DAILY PRN PRN PRN Reason: Constipation Senna/Docusate Sodium (Senokot-S, Claudia-Colace) 2 tablet PO BID PRN PRN PRN Reason: Constipation Sodium Chloride () 10 - 40 ml IV UD PRN PRN Reason: SALINE FLUSH Last Admin: 10/16/19 22:52 Dose: 10 ml Documented by: Throat Lozenges (Cepacol Sore Throat Lozenge) 1 lozenge MUCOUS MEM Q2H PRN PRN PRN Reason: SORE THROAT Topiramate (Topamax) 50 mg PO DAILY [facility] Trazodone HCl (Desyrel) 50 mg PO QHS PRN PRN PRN Reason: SLEEP Venlafaxine HCl (Effexor Xr) 75 mg PO DAILY [facility] STROKE Vital Signs/Narrative: Vital Signs Temp Pulse Resp BP Pulse Ox 10/17/19 07:35 97.9 F 95 16 109/62 97 10/17/19 07:00 92 18 97 10/17/19 06:10 98.0 F 92 16 107/61 96 10/17/19 03:55 98.2 F 89 16 115/70 96 Medical Necessity - Tobacco Use Smoking Status: Current every day smoker Tobacco Use: Cigarettes Assessment/Plan All Active Problems (Last Updated 05/06/19 @ 11:[address] Noe Rouse MD) Exertional chest pain (Acute) Constipation (Acute) Chest pain (Acute) 1. Chest pain, atypical, history of CAD status post stent, EF 50% Cardiology consulted, on aspirin, Plavix, statin, carvedilol Plan for stress test today, we will follow-up on results 2. Type II DM, on Trulicity and insulin -NPH and premeal insulin Trulicity on hold, continue on NPH and pre-meal insulin as well as insulin sliding scale with blood glucose checks 3. Hypertension, controlled, continue on lisinopril 4. Hypothyroidism, on levothyroxine 5. Morbid obesity, BMI 48.5, diet and exercise is recommended 6. Hyperlipidemia, on statin 7. Anxiety/depression, continue on trazodone, Effexor, Wellbutrin OBSV E&M: [id number] Subsequent observation care L2
--- NOTE | 2019-10-17 08:34 | CON.PCM_ITS ---
Reason for Consult Date of Consultation: 10/17/19 Reason for Consultation: Chest pain History of Present Illness: The patient is a 44 year old F with a past medical history of premature coronary artery disease, hypertension, hyperlipidemia, status post previous angioplasty and stenting of the left anterior descending artery, diagonal vessel, and the mid right coronary artery. She presented to the emergency room complaining of chest discomfort initially starting after she started taking a new medication. She had had some abdominal discomfort as well. She says that the chest discomfort is a pressure-like sensation and appears to be worse with exertion and it has been associated with shortness of breath. She has had no further nausea no diaphoresis no near syncope or syncope. She was last seen here in the hospital in August of this year and underwent a cardiac catheterization. It demonstrated an ejection fraction of 50%, the left main coronary artery was normal, the LAD had a proximal 20% stenosis and the stent was patent. The ramus intermedius had mild disease, the left circumflex artery had mild disease. The right coronary artery had a previously placed stent which was patent and the distal right coronary artery had a 60 to 70% stenosis for which she underwent fractional flow reserve evaluation which was 0.83 and medical therapy was recommended. She was advised to follow-up with 1 of the cardiologists but did not follow-up but says that she had planned to follow with Dr. Mrianda. In the emergency room she was evaluated she was noted to be hypertensive and EKG was done which was normal and cardiac troponin enzymes were normal. Cardiology was consulted for further evaluation and management. Patient is currently pain-free. [] Past Medical History Allergies/Adverse Reactions: Allergies metformin [From Glucophage] Adverse Reaction (Intermediate, Verified 10/16/19 22:15) Diarrhea Home Medications: Ambulatory Orders Medication Instructions Recorded Aspirin [Aspirin, Baby] 81 mg PO DAILY@0800 06/11/15 Clopidogrel Bisulfate [Plavix] 75 mg PO DAILY 06/11/15 Albuterol Inhaler [Ventolin Hfa] 1 - 2 puff INHALATION Q4H PRN PRN 10/15/15 #1 inhaler Pantoprazole Sodium [Protonix] 40 mg PO DAILY 09/23/16 Ondansetron [Zofran Odt] 4 mg PO Q8H PRN PRN #10 tablet 03/07/18 ALPRAZolam [Xanax] 1 mg PO QHS PRN 08/18/18 Atorvastatin Calcium [Lipitor] 80 mg PO QHS #60 tablet 08/20/18 Bupropion HCl [Bupropion Xl] 300 mg PO DAILY 05/04/19 Carvedilol [Coreg (Beta Monisha)] 25 mg PO BID 05/04/19 Levothyroxine Sodium [Synthroid] 225 mcg PO DAILY 05/04/19 Venlafaxine HCl [Venlafaxine HCl 75 mg PO DAILY 05/04/19 ER] Budesonide/Formoterol 160/4.5 2 puff PO BID 05/07/19 [Symbicort 160/4.5 Mcg Inhaler (SP)] Insulin Regular, Human [Novolin R] 26 units SUBCUT TIDCM 05/07/19 Insulin NPH Human [Humulin N Pen] 32 units SUBCUT BIDAC 07/19/19 Topiramate 50 mg PO DAILY 07/19/19 cycloBENZAPRine HCl [Flexeril] 5 mg PO TID PRN PRN 07/19/19 traZODone [Desyrel] 50 mg PO QHS PRN PRN 07/19/19 Lisinopril [Zestril] 40 mg PO DAILY #0 07/20/19 Naproxen 500 mg PO BID PRN #0 07/20/19 Dulaglutide [Trulicity] 1.5 mg SQ QWEEK 10/16/19 Venlafaxine HCl [Venlafaxine HCl 150 mg PO DAILY 10/16/19 ER] Past Medical History (Chronic Problems): Chronic Problems (Last Updated 05/06/19 @ 11:[address] Noe Rouse MD) History of coronary artery disease (Chronic) Diabetes mellitus, type II (Chronic) GEOVANI (obstructive sleep apnea) (Chronic) Chronic obstructive pulmonary disease (Chronic) Diabetes mellitus, type II (Chronic) Stented coronary artery (Chronic) 2.5 x 12 Elunir RAYMUNDO to D1 05/06/19; RAYMUNDO to distal diagonal and distal RCA 08/12/18; RAYMUNDO RCA 04/18/2010; RAYMUNDO LAD 11/25/2002 (all were done @ [facility] in [place], [place]) Atherosclerotic heart disease of [place] coronary artery without angina pectoris (Chronic) Non obstructive coronary arteries; Widely patent recently placed DIAG and distal RCA stents. Non obstructive mid LAD just distal to DIAG branch as well as distal RCA. Pt's symptoms are atypical for angina and degree of chest pain is out of proportion to CAD found per cath 08/19/[address] Huerta History of left heart catheterization (Chronic 08/19/18) Non obstructive coronary arteries; Widely patent recently placed DIAG and distal RCA stents. Non obstructive mid LAD just distal to DIAG branch as well as distal RCA 08/19/18; 12/09/12 Sleep-disordered breathing (Chronic) Essential hypertension (Chronic) Hypercholesterolemia (Chronic) Tobacco use (Chronic) Morbid obesity (Chronic) Hypothyroidism (Chronic) GERD (gastroesophageal reflux disease) (Chronic) Asthma (Chronic) DM (diabetes mellitus), type 1 (Chronic) Surgical History: angioplasty - PTCA ?4 at [facility], cholecystectomy, - - 5 stents in the past, 2 back surgeries with hardware of the lumbar spine, carpal tunnel, tonsils, section, bilateral tubal ligation, I&D of breast abscesses, cervical conization Psychiatric History: Anxiety, Depression [employer]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 - *Family History Maternal Family History: Family History (Last Updated 09/10/18 @ 16:59 by Ladonna Stahl) Mother Cancer Father Hypertension COPD (chronic obstructive pulmonary disease) Daughter Factor V deficiency Grandmother Cancer COPD (chronic obstructive pulmonary disease) History Items: Cancer, Diabetes, Heart Disease, Hypertension Paternal Family History: Family History (Last Updated 09/10/18 @ 16:59 by Ladonna Stahl) Mother Cancer Father Hypertension COPD (chronic obstructive pulmonary disease) Daughter Factor V deficiency Grandmother Cancer COPD (chronic obstructive pulmonary disease) History Items: Diabetes, Heart Disease, Hypertension, Pulmonary Disease Lives: Spouse/ Significant Other Smoking Status: Current every day smoker Tobacco Use: Cigarettes Alcohol: None Drugs: None Review of Systems - Review of Systems General: Denies: Fever, Night Sweats, Fatigue HEENT: Denies: Vision Change Cardiovascular: Reports: Chest Discomfort, Chest Discomfort at Rest, Chest Discomfort with Exertion, Chest Pressure, Shortness of Breath. Denies: Orthopnea, PND, Peripheral Edema, Palpitations, Lightheadedness, Dizziness, Near Syncope, Syncope Respiratory: Denies: Cough, Sputum Production, Hemoptysis Gastrointestinal: Denies: Hematemesis, Hematochezia, Melena Genitourinary: Denies: Dysuria, Hematuria Muscoloskeletal: Denies: Myalgias Skin: Denies: Rash Neurological: Denies: Dizziness Psychiatric: Denies: Anxiety Endocrine: Denies: Heat Intolerance Hematologic/ Lymphatic: Denies: Anemia Subjectve: Pleasant lady in no distress Objective: Vital Signs Temp Pulse Resp BP Pulse Ox 97.9 F 95 16 109/62 97 10/17/19 07:35 10/17/19 07:35 10/17/19 07:35 10/17/19 07:35 10/17/19 07:35 Oxygen Delivery Method Room Air Weight: 300 lb 7.841 oz Body Mass Index (BMI) 48.4 Finger Stick Blood Glucose 328 Intake and Output for Last 24 Hours 10/15/19 10/16/19 10/17/19 23:59 23:59 23:59 Intake Total 480 / 480 591.67 / 591.67 Balance 480 / 480 591.67 / 591.67 General: Awake, Alert, Oriented x 3 HEENT: PERRL, EOMI, Sclera Non Icteric Neck: Supple, Good ROM, No Lymph Node Enlargement Lungs: Clear to auscultation Cardiovascular: Regular Rhythm, Normal S1, Normal S2, No Murmurs, No Rubs, No Gallops Vascular: No Carotid Bruits, Normal Femoral Pulses, Normal Radial Pulses, Normal Dorsalis Pedal Pulse, Normal Posterior Tibial Pulses Abdomen: Bowel Sounds Present, Soft, Non Tender, No HSM, No Organomegaly Extremities: No Cyanosis, No Clubbing, No edema Musculoskeletal: No Erythema Skin: No Rashes Lymphatic: No Lymph Node Enlargement Neurological: No Focal Motor or Sensory Deficit Psych/Mental Status: Appropriate 10/16/19 18:30: WBC 12.4 H, RBC 4.48, Hgb 14.4, Hct 41.6, MCV 92.9, MCH 32.1 H, MCHC 34.6, Plt Count 307, MPV 10.4, Immature Gran % (Auto) 0.300, Neut % (Auto) 50.6, Lymph % (Auto) 40.0, Day % (Auto) 7.7, Eos % (Auto) 1.0, Baso % (Auto) 0.4, Absolute Neuts (auto) 6.3, Nucleated RBC % 0 10/16/19 18:30: Sodium 135 L, Potassium 3.8, Chloride 105, Carbon Dioxide 22.0, Anion Gap 8, BUN 13, Creatinine 0.77, Est GFR (MDRD) Af Amer 104, Est GFR (MDRD) Non-Af 86, BUN/Creatinine Ratio 16.8, Glucose 283 H, Calcium 9.0, Troponin I < 0.015 10/16/19 22:10: Troponin I < 0.015 10/16/19 22:10: Magnesium 1.7 10/17/19 00:24: Troponin I < 0.015 10/17/19 05:26: WBC 9.5, RBC 4.30, Hgb 13.8, Hct 40.8, MCV 94.9, MCH 32.1 H, MCHC 33.8, Plt Count 265, MPV 10.4, Immature Gran % (Auto) 0.400, Neut % (Auto) 45.0 L, Lymph % (Auto) 44.0 H, Day % (Auto) 9.1, Eos % (Auto) 1.1, Baso % (Auto) 0.4, Absolute Neuts (auto) 4.3, Nucleated RBC % 0 10/17/19 05:26: PT 13.4, INR 1.1, APTT 24.8 10/17/19 05:26: Sodium 135 L, Potassium 3.7, Chloride 105, Carbon Dioxide 21.0, Anion Gap 9, BUN 15, Creatinine 0.66, Est GFR (MDRD) Af Amer 123, Est GFR (MDRD) Non-Af 102, BUN/Creatinine Ratio 22.6 H, Glucose 226 H, Calcium 8.2 L, Triglycerides 101, Cholesterol 111, LDL Cholesterol 44, VLDL Cholesterol 20, HDL Cholesterol 47 Rhythm: EKG: Normal sinus rhythm with no acute changes ECHO: Stress Test: Cardiac Cath: PCI: CT Surgery: Holter monitor: EPS: PPM: CXR: Chest CT Scan: Assessment/Plan 1. Chest pain in a patient with CAD: Status post PCI x5, most recently August 2018, most recent catheterization 07/20/[address] Miranda with noted CAD with minimal change compared to prior status post angioplasty 05/2019, EF 50% with mild inferior hypokinesis, no significant left ear or MR, evaluation of the RCA with stenoses felt appropriate for medical treatment at that time. * Will continue aspirin, Plavix, statin, Coreg, lisinopril regimen. * Would like to obtain pharmacologic myocardial perfusion stress test and depending on the findings of that further recommendations will be made. * In the meantime would optimize medical therapy 2 Diabetes mellitus type II: Will continue home insulin regimen, ADA diet until NPO, accu checks w/ ISS. 3. Morbid Obesity: Weight loss and lifestyle changes encouraged. 4. Hypertension: Continue home regimen including Coreg, lisinopril, PRN hydralazine. 5. Hyperlipidemia: Continue home statin regimen. AM FLP. Thank you for allowing me to participate in the care of your patient. Please don't hesitate to call if any issues arise. The patient has also been urged to make an outpatient follow-up visit with Dr. Miranda after this is all sorted out.
[2019-10-17 10:20] LABS: Bedside Glucose 293 mg/dL (70-110)
--- NOTE | 2019-10-17 12:38 | STRESSREP ---
Stress Test Report Pharmacologic myocardial perfusion stress test. 44-year-old lady with a history of chest discomfort. Stress protocol: Resting EKG demonstrates normal sinus rhythm with a rate of 95 bpm normal intervals are noted resting blood pressures 118/70 mmHg. 0.4 mg of regadenoson was infused per usual protocol followed Intravenous saline flush injection continuous EKG monitoring was performed. The maximum heart rate attained was 116 bpm which was 66% of maximum predicted heart rate the maximum workload was 1 metabolic equivalent. At rest there were no ST or T wave changes noted to suggest abnormal flow reserve at peak infusion nonspecific ST-T wave changes were noted with no meet the criteria for ischemia. No clinical angina was noted the test was terminated due to the conclusion of the test. The resting blood pressure was 118/70 with a final blood pressure 118/82. Myocardial perfusion protocol. 15.0 mCi of technetium 99m sestamibi was injected at rest. 0.4 mg of regadenoson was infused per usual protocol peak infusion 45.0 mCi of technetium 99m sestamibi was injected. Stress and rest images were reconstructed in comparing the short axis vertical long horizontal long axis. Gated images were also obtained Perfusion SPECT analysis: Review of the stress images demonstrate normal uptake of tracer noted in all areas of the myocardium the resting images similar demonstrate normal uptake of tracer noted in all areas of the myocardium. Mild apical thinning is noted. No obvious reversibility is noted even in the inferior wall. Gated SPECT analysis: The gated ejection fraction is 57%. Conclusion: Normal pharmacologic myocardial perfusion stress test. Preserved ejection fraction.
[2019-10-17] MEDS: 0.9% Normal Saline 1,000 ML 100 ML IV (12:50)
[2019-10-17] MEDS: 0.9% Saline Lock 10 ML Syringe IV ×2 (12:51→23:10)
[2019-10-17] MEDS: Insulin Lispro 100 UNIT/ML INSULN.PEN 26 UNIT SC ×2 (13:36→17:44)
[2019-10-17] MEDS: Insulin Lispro 100 UNIT/ML INSULN.PEN SC ×2 (13:37→17:43)
[2019-10-17] MEDS: Carvedilol 25 MG Tablet PO ×2 (13:41→13:42)
--- NOTE | 2019-10-17 13:41 | PCM.DC ---
- Discharge Diagnoses Current Active Problems: Current Active and Chronic Problems (Last Updated 05/06/19 @ 11:[address] Noe Rouse MD) Constipation (Acute) Diabetes mellitus, type II (Chronic) GEOVANI (obstructive sleep apnea) (Chronic) Chronic obstructive pulmonary disease (Chronic) Reason(s) for Visit for Discharge Instructions: Chest pain You will use the following diet at home:: Calorie/Carbohydrate Controlled (specify 1200, 1400, etc) - 1800 calories, Cardiac Your food should be the consistency of: Regular Your liquids should be the consistency of: Regular/Thin Discharge Activity: Return to Normal Activity Instructions: Angina Additional Instructions: Continue to take all your medications as prescribed. 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 You may take mylanta as needed for discomfort. Allergies/Adverse Reactions: Allergies metformin [From Glucophage] Adverse Reaction (Intermediate, Verified 10/16/19 22:15) Diarrhea Medications to take at Discharge Aspirin [Aspirin, Baby] 81 mg PO DAILY@0800 06/11/15 Clopidogrel Bisulfate [Plavix] 75 mg PO DAILY 06/11/15 Albuterol Inhaler [Ventolin Hfa] 1 - 2 puff INHALATION Q4H PRN PRN #1 inhaler 10/15/15 Pantoprazole Sodium [Protonix] 40 mg PO DAILY 09/23/16 Ondansetron [Zofran Odt] 4 mg PO Q8H PRN PRN #10 tablet 03/07/18 ALPRAZolam [Xanax] 1 mg PO QHS PRN 08/18/18 Atorvastatin Calcium [Lipitor] 80 mg PO QHS #60 tablet 08/20/18 Bupropion HCl [Bupropion Xl] 300 mg PO DAILY 05/04/19 Carvedilol [Coreg (Beta Monisha)] 25 mg PO BID 05/04/19 Levothyroxine Sodium [Synthroid] 225 mcg PO DAILY 05/04/19 Venlafaxine HCl [Venlafaxine HCl ER] 75 mg PO DAILY 05/04/19 Budesonide/Formoterol 160/4.5 [Symbicort 160/4.5 Mcg Inhaler (SP)] 2 puff PO BID 05/07/19 Insulin Regular, Human [Novolin R] 26 units SUBCUT TIDCM 05/07/19 Insulin NPH Human [Humulin N Pen] 32 units SUBCUT BIDAC 07/19/19 Topiramate 50 mg PO DAILY 07/19/19 cycloBENZAPRine HCl [Flexeril] 5 mg PO TID PRN PRN 07/19/19 traZODone [Desyrel] 50 mg PO QHS PRN PRN 07/19/19 Lisinopril [Zestril] 40 mg PO DAILY #0 07/20/19 Naproxen 500 mg PO BID PRN #0 07/20/19 Dulaglutide [Trulicity] 1.5 mg SQ QWEEK 10/16/19 Venlafaxine HCl [Venlafaxine HCl ER] 150 mg PO DAILY 10/16/19 Primary Care Physician: Carlotta Galindo MD [Primary Care Provider] - Please follow up with your Primary Care Physician in: within 1-2 weeks Test Results: Test results from this visit will be discussed in further detail at your follow-up appointment, if applicable. Please Follow Up With: Columba Miranda MD When: within 1-2 weeks Proposed Discharge Date: 10/17/19
[2019-10-17] MEDS: Venlafaxine XR 75 MG Capsule PO (13:42)
[2019-10-17] MEDS: buPROPion (XL) 300 MG TABLET.XL PO (13:42)
[2019-10-17] MEDS: Lisinopril 40 MG Tablet PO (13:42)
[2019-10-17] MEDS: Pantoprazole Sodium 40 MG Tablet PO (13:42)
[2019-10-17] MEDS: Topiramate 50 MG Tablet PO (13:42)
--- NOTE | 2019-10-17 13:44 | DS.PCM_ITS ---
Discharge Date and Diagnosis - Problem List Patient Problems: Active and Suspected Problems (Last Updated 05/06/19 @ 11:[address] Noe Rouse MD) Constipation (Acute) Date of Admission: 10/16/19 Date of Discharge: 10/17/19 - Primary Discharge Diagnosis Active and Suspected Problems (Last Updated 05/06/19 @ 11:[address] Noe Rouse MD) Chest pain, ACS r/o - Secondary Discharge Diagnosis Chronic Problems (Last Updated 05/06/19 @ 11:[address] Noe Rouse MD) History of coronary artery disease (Chronic) Diabetes mellitus, type II (Chronic) GEOVANI (obstructive sleep apnea) (Chronic) Chronic obstructive pulmonary disease (Chronic) Diabetes mellitus, type II (Chronic) Stented coronary artery (Chronic) 2.5 x 12 Elunir RAYMUNDO to D1 05/06/19; RAYMUNDO to distal diagonal and distal RCA 08/12/18; RAYMUNDO RCA 04/18/2010; RAYMUNDO LAD 11/25/2002 (all were done @ [facility] in [place], [place]) Atherosclerotic heart disease of burns paiute coronary artery without angina pectoris (Chronic) Non obstructive coronary arteries; Widely patent recently placed DIAG and distal RCA stents. Non obstructive mid LAD just distal to DIAG branch as well as distal RCA. Pt's symptoms are atypical for angina and degree of chest pain is out of proportion to CAD found per cath 08/19/[address] Huerta History of left heart catheterization (Chronic 08/19/18) Non obstructive coronary arteries; Widely patent recently placed DIAG and distal RCA stents. Non obstructive mid LAD just distal to DIAG branch as well as distal RCA 08/19/18; 12/09/12 Sleep-disordered breathing (Chronic) Essential hypertension (Chronic) Hypercholesterolemia (Chronic) Tobacco use (Chronic) Morbid obesity (Chronic) Hypothyroidism (Chronic) GERD (gastroesophageal reflux disease) (Chronic) Asthma (Chronic) DM (diabetes mellitus), type 1 (Chronic) Hospital Course and Treatment Imaging Results: 10/17/19 08:12 Nuclear Stress Test - Chemical [NM] Routine Clinical Impression(s) from Imaging Studies Chest X-Ray 10/16/19 18:40 IMPRESSION: Normal x-ray examination of the chest. Electronically Signed: Benja Mckinnon MD at 19:12 EDT , Service support , Cardiology Operations: None Procedures: Cardiac catheterization, Stress test Summary of Care Provided: The patient is a 44 year old F with multiple comorbidities including CAD status post stents, who recently had a cardiac cath done in August 2018, hypertension, 2 DM, morbid obesity who comes in with complaints of midsternal chest pain, which radiates to the left shoulder, worse with ambulation associated with dyspnea, nausea without emesis and diaphoresis. Patient initial EKG showed no acute ST-T change. Troponins were negative. Cardiology was consulted. She underwent stress test that was negative. Patient had persistent chest pain and cardiac cath was recommended. Results of her cardiac cath showed moderate disease in the mid to proximal RCA. Medical management was recommended. She was started on Imdur. Patient will follow-up with cardiology in the outpatient in 2 weeks. Patient Problems: Active and Suspected Problems (Last Updated 05/06/19 @ 11:[address] Noe Rouse MD) Constipation (Acute) Subjective: On the day of discharge, patient was seen and examined. She feels well. Her cardiac cath showed moderate disease in the proximal to mid RCA. She denied any chest pain or dizziness. - Physical Exam Vitals/I&O's: Vital Signs Temp Pulse Resp BP Pulse Ox 97.8 F 68 14 132/84 H 98 10/17/19 13:39 10/17/19 13:39 10/17/19 13:39 10/17/19 13:39 10/17/19 13:39 Oxygen Delivery Method Room Air Weight: 136.3 kg Body Mass Index (BMI) 48.4 Finger Stick Blood Glucose 328 Intake and Output for Last 24 Hours 10/15/19 10/16/19 10/17/19 23:59 23:59 23:59 Intake Total 480 / 480 1511.67 / 1511.67 Balance 480 / 480 1511.67 / 1511.67 General: Alert, Oriented x3, Cooperative, No apparent distress HEENT: Atraumatic, PERRLA, EOMI, Normocephalic Oral: Moist Mucosa Neck: Supple Lungs: Clear to auscultation Cardiovascular: Regular rate, Regular Rhythm, Normal S1, Normal S2, No murmurs Abdomen: Bowel Sounds Present, Soft, Non Tender, Non-Distended, No Hepato- splenomegaly Extremities: No edema Skin: No rashes, No breakdown Musculoskeletal: No Tenderness to Palpation of Joints or Extremities Lymphatic: No Cervical, Supraclavicular, or Inguinal Adenopathy Neurological: Cranial nerves II-XII grossly intact, Neuro grossly intact Psych/Mental Status: Normal Affect, Appropriate Laboratory Results 10/16/19 18:30: WBC 12.4 H, RBC 4.48, Hgb 14.4, Hct 41.6, MCV 92.9, MCH 32.1 H, MCHC 34.6, RDW Std Deviation 42.9, RDW Coeff of Whitney 12.7, Plt Count 307, MPV 10.4, Immature Gran % (Auto) 0.300, Neut % (Auto) 50.6, Lymph % (Auto) 40.0, Archer % (Auto) 7.7, Eos % (Auto) 1.0, Baso % (Auto) 0.4, Absolute Neuts (auto) 6.3, Absolute Lymphs (auto) 4.97 H, Nucleated RBC % 0, Differential Comment SCANNED 10/16/19 18:30: Sodium 135 L, Potassium 3.8, Chloride 105, Carbon Dioxide 22.0, Anion Gap 8, BUN 13, Creatinine 0.77, Estim Creat Clear Calc 85.46, Est GFR (MDRD) Af Amer 104, Est GFR (MDRD) Non-Af 86, BUN/Creatinine Ratio 16.8, Glucose 283 H, Calcium 9.0, Troponin I < 0.015 10/16/19 22:10: Troponin I < 0.015 10/16/19 22:10: Magnesium 1.7 10/16/19 23:02: POC Glucose 147 H 10/17/19 00:24: Troponin I < 0.015 10/17/19 05:26: WBC 9.5, RBC 4.30, Hgb 13.8, Hct 40.8, MCV 94.9, MCH 32.1 H, MCHC 33.8, RDW Std Deviation 44.4 H, RDW Coeff of Whitney 13.1, Plt Count 265, MPV 10.4, Immature Gran % (Auto) 0.400, Neut % (Auto) 45.0 L, Lymph % (Auto) 44.0 H, Archer % (Auto) 9.1, Eos % (Auto) 1.1, Baso % (Auto) 0.4, Absolute Neuts (auto) 4.3, Absolute Lymphs (auto) 4.17, Nucleated RBC % 0 10/17/19 05:26: PT 13.4, INR 1.1, APTT 24.8 10/17/19 05:26: Sodium 135 L, Potassium 3.7, Chloride 105, Carbon Dioxide 21.0, Anion Gap 9, BUN 15, Creatinine 0.66, Estim Creat Clear Calc 99.71, Est GFR (MDRD) Af Amer 123, Est GFR (MDRD) Non-Af 102, BUN/Creatinine Ratio 22.6 H, Glucose 226 H, Calcium 8.2 L, Triglycerides 101, Cholesterol 111, LDL Cholesterol 44, VLDL Cholesterol 20, HDL Cholesterol 47 10/17/19 10:13: POC Glucose 293 H Current Medications Acetaminophen (Tylenol) 650 mg PO Q6H PRN PRN PRN Reason: Pain Score 1-10/Temp > 100.7 F Albuterol Sulfate (Ventolin Aerosols) 2.5 mg INHALATION Q2H PRN PRN PRN Reason: Dyspnea, wheezing Albuterol/Ipratropium (Duoneb) 3 ml INHALATION Q6HWA.RT [facility] Last Admin: 10/17/19 13:18 Dose: Not Given Documented by: Alprazolam (Xanax) 1 mg PO QHS PRN PRN PRN Reason: ANXIETY Last Admin: 10/17/19 00:18 Dose: 1 mg Documented by: Aspirin (Aspirin, Baby) 81 mg PO DAILY@0800 [facility] Last Admin: 10/17/19 07:40 Dose: 81 mg Documented by: Atorvastatin Calcium (Lipitor) 80 mg PO QHS [facility] Last Admin: 10/16/19 22:46 Dose: Not Given Documented by: Bupropion HCl (Wellbutrin Xl) 300 mg PO DAILY [facility] Carvedilol (Coreg) 25 mg PO BID [facility] Last Admin: 10/16/19 22:58 Dose: 25 mg Documented by: Clopidogrel Bisulfate (Plavix) 75 mg PO DAILY [facility] Last Admin: 10/17/19 07:40 Dose: 75 mg Documented by: Cyclobenzaprine HCl (Flexeril) 5 mg PO TID PRN PRN PRN Reason: MUSCLE SPASM Dextrose (D50w Syringe) 0 gm IV X1 PRN; Protocol PRN Reason: Hypoglycemia Enoxaparin Sodium (Lovenox) 40 mg SC DAILY [facility] Glucagon () 1 mg IM .X1 PRN PRN Reason: Hypoglycemia Guaifenesin (Robitussin) 20 ml PO Q4H PRN PRN PRN Reason: COUGH Hydralazine HCl (Apresoline Iv) 10 mg IV Q4H PRN PRN PRN Reason: SBP > 160 Sodium Chloride () 1,000 mls @ 75 mls/hr IV .[id number] [facility] Last Infusion: 10/17/19 12:57 Dose: 75 mls/hr Documented by: Sodium Chloride () 250 mls @ 15 mls/hr IV .[id number] PRN PRN Reason: Saline Flush Sodium Chloride () 250 mls @ 15 mls/hr IV .[id number] PRN PRN Reason: Additional IVPB Infusion Insulin Human Lispro (Humalog Kwikpen (Bkc)) 26 unit SC 0800,1200,1700 [facility] Last Admin: 10/17/19 13:36 Dose: 26 u Documented by: Insulin Human Lispro (Humalog Kwikpen (Bkc)) 0 unit SC ACHS [facility]; Protocol Last Admin: 10/17/19 13:37 Dose: 6 units Documented by: Insulin Human NPH (Humulin N (Bk)) 32 units SC BIDAC [facility] Last Admin: 10/17/19 09:33 Dose: Not Given Documented by: Isosorbide Mononitrate (Imdur) 60 mg PO DAILY [facility] Levothyroxine Sodium (Synthroid) 125 mcg PO DAILY@0600 [facility] Last Admin: 10/17/19 07:40 Dose: 125 mcg Documented by: Levothyroxine Sodium (Synthroid) 100 mcg PO DAILY@0600 [facility] Last Admin: 10/17/19 07:40 Dose: 100 mcg Documented by: Lisinopril (Zestril) 40 mg PO DAILY [facility] Magnesium Hydroxide (Milk Of Magnesia) 30 ml PO DAILY PRN PRN PRN Reason: Constipation Melatonin (Melatonin) 3 mg PO QHS PRN PRN PRN Reason: INSOMNIA Morphine Sulfate () 4 mg IV Q3H PRN PRN PRN Reason: Pain Score 6-10/10 Last Admin: 10/17/19 10:38 Dose: 4 mg Documented by: Nutritional Formula (Lactose Free) (Ensure Enlive) 120 ml PO 4X/DAY [facility] Last Admin: 10/17/19 13:41 Dose: Not Given Documented by: Ondansetron HCl (Zofran) 4 mg IV Q8H PRN PRN PRN Reason: NAUSEA/VOMITING Oxycodone HCl (Oxyir) 5 mg PO Q4H PRN PRN PRN Reason: Pain Score 4-5/10 Last Admin: 10/17/19 00:10 Dose: 5 mg Documented by: Pantoprazole Sodium (Protonix) 40 mg PO DAILY [facility] Prochlorperazine Edisylate (Compazine Iv) 5 mg IV Q4H PRN PRN PRN Reason: Breakthrough Nausea/Vomiting Last Admin: 10/17/19 07:41 Dose: 5 mg Documented by: Psyllium Hydrophilic Mucilloid (Metamucil) 1 packet PO DAILY PRN PRN PRN Reason: Constipation Senna/Docusate Sodium (Senokot-S, Claudia-Colace) 2 tablet PO BID PRN PRN PRN Reason: Constipation Sodium Chloride () 10 - 40 ml IV UD PRN PRN Reason: SALINE FLUSH Last Admin: 10/17/19 12:51 Dose: 10 ml Documented by: Throat Lozenges (Cepacol Sore Throat Lozenge) 1 lozenge MUCOUS MEM Q2H PRN PRN PRN Reason: SORE THROAT Topiramate (Topamax) 50 mg PO DAILY [facility] Trazodone HCl (Desyrel) 50 mg PO QHS PRN PRN PRN Reason: SLEEP Venlafaxine HCl (Effexor Xr) 75 mg PO DAILY [facility] Venlafaxine HCl (Effexor Xr) 150 mg PO DAILY [facility] Discharge Diet: Low fat/ Low Cholesterol, 2000 mg Sodium Diet, Carb Control Diet Discharge Activity: Return to Normal Activity Home Medications: Medications to take at Discharge Aspirin [Aspirin, Baby] 81 mg PO DAILY@0800 06/11/15 Clopidogrel Bisulfate [Plavix] 75 mg PO DAILY 06/11/15 Albuterol Inhaler [Ventolin Hfa] 1 - 2 puff INHALATION Q4H PRN PRN #1 inhaler 10/15/15 Pantoprazole Sodium [Protonix] 40 mg PO DAILY 09/23/16 Ondansetron [Zofran Odt] 4 mg PO Q8H PRN PRN #10 tablet 03/07/18 ALPRAZolam [Xanax] 1 mg PO QHS PRN 08/18/18 Atorvastatin Calcium [Lipitor] 80 mg PO QHS #60 tablet 08/20/18 Bupropion HCl [Bupropion Xl] 300 mg PO DAILY 05/04/19 Carvedilol [Coreg (Beta Monisha)] 25 mg PO BID 05/04/19 Levothyroxine Sodium [Synthroid] 225 mcg PO DAILY 05/04/19 Venlafaxine HCl [Venlafaxine HCl ER] 75 mg PO DAILY 05/04/19 Budesonide/Formoterol 160/4.5 [Symbicort 160/4.5 Mcg Inhaler (SP)] 2 puff PO BID 05/07/19 Insulin Regular, Human [Novolin R] 26 units SUBCUT TIDCM 05/07/19 Insulin NPH Human [Humulin N Pen] 32 units SUBCUT BIDAC 07/19/19 Topiramate 50 mg PO DAILY 07/19/19 cycloBENZAPRine HCl [Flexeril] 5 mg PO TID PRN PRN 07/19/19 traZODone [Desyrel] 50 mg PO QHS PRN PRN 07/19/19 Lisinopril [Zestril] 40 mg PO DAILY #0 07/20/19 Naproxen 500 mg PO BID PRN #0 07/20/19 Dulaglutide [Trulicity] 1.5 mg SQ QWEEK 10/16/19 Venlafaxine HCl [Venlafaxine HCl ER] 150 mg PO DAILY 10/16/19 Isosorbide Mononitrate [Imdur] 60 mg PO DAILY #30 tab 10/18/19 Following Prescrptions Were Given to Patient: Isosorbide Mononitrate [Imdur] 60 mg PO DAILY #30 tab Transmission Status: Received by [facility] Primary Care Physician: Carlotta Galindo MD [Primary Care Provider] - Please follow up with your Primary Care Physician in: within 1-2 weeks Please Follow Up With: Columba Miranda MD When: within 1-2 weeks Patient Instructions: Angina Disposition: Home Minutes spent on discharge:: 40 Patient Condition:: Stable Medical Necessity - Tobacco Use Smoking Status: Current every day smoker Tobacco Use: Cigarettes Meaningful Use Info Meaningful Use Diagnoses (Choose all that apply): None applicable Inpatient E&M: 35885 Disch Hosp
[2019-10-17] MEDS: Senna/Docusate Sodium 1 Tablet 2 TABLET PO (13:45)
[2019-10-17 13:56] LABS: Bedside Glucose 382 mg/dL (70-110)
[2019-10-17] MEDS: Venlafaxine XR 150 MG Capsule PO (14:56)
[2019-10-17] MEDS: Enoxaparin 40 MG/0.4 ML Syringe SC (14:56)
[2019-10-17] MEDS: Insulin NPH Human 100 UNITS/ML PEN 32 UNITS SC (17:44)
[2019-10-17] MEDS: Magnesium Hydroxide 30 ML UDC PO (17:45)
[2019-10-17] MEDS: Morphine 2 MG/ML Syringe IV ×2 (17:46→23:09)
[2019-10-17 17:50] LABS: Bedside Glucose 188 mg/dL (70-110)
[2019-10-17] MEDS: Atorvastatin Calcium 80 MG Tablet PO (23:04)
[2019-10-17 23:20] LABS: Bedside Glucose 102 mg/dL (70-110)
[2019-10-18] VITALS (16 sets, daily range): BP systolic 107–138; BP diastolic 64–96; PULSE 87–115; RESP 16–20; TEMP 36.5–37; O2SAT 94–100
[2019-10-18] MEDS: ALPRAZolam 0.5 MG Tablet 1 MG PO (00:09)
--- NOTE | 2019-10-18 02:04 | CPS ---
pt refuses cpap, non compliant at home
[2019-10-18] MEDS: Morphine 2 MG/ML Syringe IV (03:59)
[2019-10-18] MEDS: 0.9% Saline Lock 10 ML Syringe IV ×2 (03:59→07:53)
--- NOTE | 2019-10-18 05:55 | EKG12_ITS ---
Test Reason : AM EKG Blood Pressure : / mmHG Vent. Rate : 091 BPM Atrial Rate : 091 BPM P-R Int : 154 ms QRS Dur : 080 ms QT Int : 362 ms P-R-T Axes : 040 -01 006 degrees QTc Int : 445 ms Normal sinus rhythm Inferior infarct , age undetermined Abnormal ECG When compared with ECG of 17-OCT-2019 05:56, No significant change was found Confirmed by LOU MARX ([id number]), multimedia editor GEORGE WONG ([id number]) on 10/20/2019 10:32:32 AM Referred By: DR NEWELL Confirmed By:LOU MARX
[2019-10-18] MEDS: Aspirin 81 MG TAB.CHEW PO (06:35)
[2019-10-18] MEDS: Levothyroxine 100 MCG Tablet PO (06:35)
[2019-10-18] MEDS: Levothyroxine 125 MCG Tablet PO (06:35)
[2019-10-18] MEDS: Clopidogrel Bisulfate 75 MG Tablet PO (06:35)
[2019-10-18] MEDS: Ipratropium/Albuterol Sulfate 3 ML AMPUL.NEB INHALATION (06:56)
[2019-10-18] MEDS: 0.9% Normal Saline 1,000 ML 15 ML IV (07:53)
--- NOTE | 2019-10-18 07:57 | NURSING ---
Report called to chemical laboratory technician. Report given to RUDI garcia
[2019-10-18 08:01] LABS: Bedside Glucose 220 mg/dL (70-110)
--- NOTE | 2019-10-18 08:56 | PN.CARD_ITS ---
Subjectve: Patient seen and evaluated. Underwent cardiac catheterization this morning. Objective: Vital Signs Temp Pulse Resp BP Pulse Ox 98.3 F 88 18 107/64 94 10/18/19 06:32 10/18/19 06:56 10/18/19 06:56 10/18/19 06:32 10/18/19 06:56 Oxygen Delivery Method Room Air Weight: 300 lb 7.841 oz Body Mass Index (BMI) 48.4 Finger Stick Blood Glucose 328 Intake and Output for Last 24 Hours 10/16/19 10/17/19 10/18/19 23:59 23:59 23:59 Intake Total 480 / 480 2626.92 / 2626.92 50 / 50 Balance 480 / 480 2626.92 / 2626.92 50 / 50 General: Awake, Alert, Oriented x 3 HEENT: PERRL, EOMI, Sclera Non Icteric Neck: Supple, Good ROM, No Lymph Node Enlargement Lungs: Clear to auscultation Cardiovascular: Regular Rhythm, Normal S1, Normal S2, No Murmurs, No Rubs, No Gallops Vascular: No Carotid Bruits, Normal Femoral Pulses, Normal Radial Pulses, Normal Dorsalis Pedal Pulse, Normal Posterior Tibial Pulses Abdomen: Bowel Sounds Present, Soft, Non Tender, No HSM, No Organomegaly Extremities: No Cyanosis, No Clubbing, No edema Musculoskeletal: No Erythema Skin: No Rashes Neurological: No Focal Motor or Sensory Deficit Psych/Mental Status: Appropriate Rhythm: EKG: ECHO: Stress Test: Cardiac Cath: PCI: CT Surgery: Holter monitor: EPS: PPM: CXR: Chest CT Scan: Medical Necessity - Tobacco Use Smoking Status: Current every day smoker Tobacco Use: Cigarettes Assessment/Plan 1. Chest pain in a patient with CAD: Status post PCI x5, most recently August 2018, most recent catheterization 07/20/[address] Miranda with noted CAD with minimal change compared to prior status post angioplasty 05/2019, EF 50% with mild inferior hypokinesis, no significant left ear or MR, evaluation of the RCA with stenoses felt appropriate for medical treatment at that time. Cardiac catheterization this morning demonstrated normal left main coronary artery, Ramus intermedius with mild disease Left anterior descending artery previously stented which was patent with no high-grade stenosis Left circumflex artery with no significant disease Right coronary artery previously stented with mild to moderate in-stent stenosis and mid to distal moderate disease Preserved low ventricular systolic function Based on the above angiographic findings I would recommend that we continue to manage her medically. * 2 Diabetes mellitus type II: Will continue home insulin regimen, ADA diet until NPO, accu checks w/ ISS. 3. Morbid Obesity: Weight loss and lifestyle changes encouraged. 4. Hypertension: Continue home regimen including Coreg, lisinopril, will add isosorbide 60 mg a day. 5. Hyperlipidemia: Continue home statin regimen. AM FLP. Thank you for allowing me to participate in the care of your patient. Please don't hesitate to call if any issues arise. Patient can be discharged later today the patient has also been urged to make an outpatient follow-up visit with Dr. Miranda after this is all sorted out.
--- NOTE | 2019-10-18 09:06 | CL.D_ITS ---
Patient Name: ADELFO BACK Study Date: 10/18/2019 Performing: Wale Busby MD Ht: 66 inches 168 cm : 1975 Wt: 300.2 lbs 136 kg Age: 44 Gender: female BSA: 2.38 PROCEDURE(S) PERFORMED [id number] CLINICAL PROFILE AND INDICATIONS Indications: Suspected CAD Heart Failure: None Stress/Imaging Date: 10/17/2019Stress Test with SPECT MPI: Negative CONCLUSIONS Moderate disease noted in the proximal to mid right coronary artery stent. The mid to distal right c oronary artery has moderate disease but no high-grade stenosis. In comparison to the previous imagin g the overall coronary anatomy appears to be better RECOMMENDATIONS Medical therapy DESCRIPTION OF PROCEDURE The patient arrived to the procedure lab. The risks and benefits of the procedure as well as a full d escription of our services here and current unavailability of surgical backup were fully explained to the patient and/or their significant other prior to the catheterization. The Timeout was completed, verifying the correct patient and procedure. The patient's procedural site was prepped and draped in the usual fashion. Local anesthetic was given subcutaneously to right groin region with Lidocaine 2%. Using a modified Seldinger technique, arterial access was obtained via the right femoral artery, a 5 Fr sheath was inserted. Left Coronary Artery selective angiography was performed in multiple views u sing a 5 Fr. JL4 catheter. Right Coronary Artery selective angiography was then performed in multiple views using a 5 Fr. 3DRC (Dev) catheter. Left Ventriculography was performed in GUTIÉRREZ projection using a 5 Fr. Pigtail catheter. LV to AO pullback pressures were then recorded.The arterial sheath was pulled and a Mynx closure device was deployed for hemostasis CORONARY ANGIOGRAPHY DOMINANCE: Right Dominant LEFT HEART ASSESSMENT Left Ventricular Ejection Fraction: by LV Gram 60 % Normal Left Ventricular systolic function LEFT MAIN: Angiographically normal LEFT ANTERIOR DESCENDING ARTERY: PROX LAD: Previously placed stent is patent DIAGONAL 1: Proximal - Mild luminal irregularities less than 30% CIRCUMFLEX ARTERY: Mild luminal irregularities less than 30% RAMUS: Mild luminal irregularities less than 30% RIGHT CORONARY ARTERY: PROX RCA: Previously placed stent has an instent 20 % restenosis DISTAL RCA: Moderate luminal irregularities up to 50% COMPLICATIONS No Complications PROCEDURE MEDICATIONS Versed 1 mg IV Versed 1 mg IV Fentanyl 50 mcg IV Oxygen: 2 L/min via nasal cannula SUMMARY OF HEMODYNAMIC DATA Time AIR REST ECG 08:12:41 AO 134/87 (106) SA 08:26:47 LV 139/13, 22 08:33:25 LV 158/15, 21 08:33:31 LV 142/20, 24 08:34:15 LVp 151/19, 25 08:34:20 AOp 156/94 (120) 08:34:25 Signed By Wale Busby MD On 10/18/2019 09:05:30 Wale Busby MD
--- NOTE | 2019-10-18 09:17 | CASEMGMT ---
RUDI NUNEZ assessment: Face to Face with patient for initial transition planning/care coordination assessment. RUDI NUNEZ introduced self and role at [facility], pt voices understanding and consents to assessment at this time. Pt is lying in bed in no distress at this time. Pt is A/Ox4 at this time and answers all questions appropriately at this time. Care providers, pharmacy, and demographics verified at this time. Presentation: CP, cough, SOB Admitting dx: CP PCP: Mateo Specialists: BARBARA weight management physician in [place] Preferred Pharmacy: [facility] Insurance: [facility] A/B, [facility] Prescription Benefit: EFREN Living Will/HPOA: Pt states does not have LW/HPOA and declines AD info at this time. LNOK: Israel Cunningham, Living Arrangements: Pt states lives with in home apt with no steps and states no concerns at home at this time. Pt states is independent with ADL's. Transportation: Pt states does not have her license but that her or daughter drive and states no transportation concerns at this time. DME/HHC: Pt states no current DME or need for any at this time. Pt states has had HHC in the past and states no hx of SNF in the past. Pt states no concerns with going home at time of discharge. Pt states is disabled. Pt states smokes about 1/2pk/day and does not drink ETOH. Pt states no further concerns/needs at this time. CM to follow for any further discharge planning/needs. Advised pt to ask for CM if any further questions/concerns/needs arise, voices understanding. Pt Goal: Home Plan: [place] RUDI NUNEZ
[2019-10-18] MEDS: Insulin Lispro 100 UNIT/ML INSULN.PEN 26 UNIT SC ×2 (10:19→13:07)
[2019-10-18] MEDS: Insulin NPH Human 100 UNITS/ML PEN 32 UNITS SC (10:19)
[2019-10-18] MEDS: Isosorbide Mononitrate 60 MG Tablet PO (10:20)
[2019-10-18] MEDS: Venlafaxine XR 75 MG Capsule PO (10:20)
[2019-10-18] MEDS: Carvedilol 25 MG Tablet PO (10:20)
[2019-10-18] MEDS: buPROPion (XL) 300 MG TABLET.XL PO (10:20)
[2019-10-18] MEDS: Pantoprazole Sodium 40 MG Tablet PO (10:20)
[2019-10-18] MEDS: Lisinopril 40 MG Tablet PO (10:20)
[2019-10-18] MEDS: Venlafaxine XR 150 MG Capsule PO (10:20)
[2019-10-18] MEDS: Topiramate 50 MG Tablet PO (10:20)
[2019-10-18 10:31] LABS: Bedside Glucose 318 mg/dL (70-110)
[2019-10-18] MEDS: oxyCODONE 5 MG Tablet PO (13:06)
[2019-10-18] MEDS: Insulin Lispro 100 UNIT/ML INSULN.PEN SC (13:07)
[2019-10-18 13:15] LABS: Bedside Glucose 281 mg/dL (70-110)
[2019-10-18] MEDS: Magnesium Hydroxide 30 ML UDC PO (13:16)
--- NOTE | 2019-10-19 13:27 | CASEMGMT ---
Addendum entered by Lupe Bustillo 10/19/19 13:33: This RN CM received call back from pt at this time. Pt states is feeling 'so-so' since discharge and states 'just tired and weak.' Pt states no questions regarding discharge instructions/medications at this time. Pt states has f/u appt scheduled and plans to keep. Pt states no suggestions for [facility] at this time. Pt voices no further questions/concerns/needs at this time. Vicki GRIJALVA CM Original Note: RN CM Discharge F/U Phone Call LACE: 11 Strata: 3 Discharge date: 10/18/2019 Call date: 10/19/2019 Call time: [phone] Attempted to reach pt without success at this time, message left for pt to call this RN CM back if/when able. Vicki GRIJALVA CM Admission dx: Chest pain
== END 2019-10-18 14:10 | disposition home or self-care (01) | DRG 287 ==
LOC: ED 20:27 → PCU 20:32
PROVIDERS: Admitting Provider Family Medicine; Emergency Provider Emergency Medicine; PCP Internal Medicine; Visit Provider Internal Medicine
DX: R07.9 Chest pain, unspecified (principal); Z68.42 Body mass index [BMI] 45.0-49.9, adult; I25.10 Atherosclerotic heart disease of native coronary artery without angina pectoris; I25.2 Old myocardial infarction; I10 Essential (primary) hypertension; E11.9 Type 2 diabetes mellitus without complications; G47.33 Obstructive sleep apnea (adult) (pediatric); J44.9 Chronic obstructive pulmonary disease, unspecified; E78.00 Pure hypercholesterolemia, unspecified; E03.9 Hypothyroidism, unspecified; E66.01 Morbid (severe) obesity due to excess calories; K21.9 Gastro-esophageal reflux disease without esophagitis; K59.00 Constipation, unspecified; F32.9 Major depressive disorder, single episode, unspecified; F41.9 Anxiety disorder, unspecified; F17.210 Nicotine dependence, cigarettes, uncomplicated; Z95.5 Presence of coronary angioplasty implant and graft; Z79.82 Long term (current) use of aspirin; Z79.4 Long term (current) use of insulin; Z79.890 Hormone replacement therapy; Z79.51 Long term (current) use of inhaled steroids; Z79.02 Long term (current) use of antithrombotics/antiplatelets; Z79.899 Other long term (current) drug therapy; Z86.718 Personal history of other venous thrombosis and embolism
CPT/HCPCS: 36415; 71045; 78452; 80048; 80061; 82962; 83735; 84484; 85025; 85610; 85730; 93005; 93017; 93458; 94640; 96365; 96375; 99152; 99153; 99251; 99284; 99406; A9500; C1760; J7030; J7040; Q9967; A4216; C1769; G0463; J2405; J2785

== ENCOUNTER 2020-01-29 15:38 | Emergency (ER) | payer MEDICARE, MEDICAID, SELFPAY ==
[2019-05-06 13:18] VITALS: BMI 56.7
[2019-11-07 13:19] VITALS: BMI 48.4
[2020-01-29 15:39] VITALS: BP 151/95; PULSE 125; RESP 18; TEMP 36.6; O2SAT 98; BMI 48.4
--- NOTE | 2020-01-29 16:56 | ED.RN ---
1600--pt leaves stating she will retun later whn not so busy
== END 2020-01-29 16:00 | disposition left against medical advice (07) ==
PROVIDERS: Emergency Provider Emergency Medicine; PCP Internal Medicine
DX: R69 Illness, unspecified (principal); Z53.21 Procedure and treatment not carried out due to patient leaving prior to being seen by health care provider

== ENCOUNTER 2020-02-21 17:38 | Emergency (ER) | payer MEDICARE, MEDICAID, SELFPAY ==
[2019-05-06 13:18] VITALS: BMI 56.7
[2020-02-21 17:39] VITALS: BP 165/118; PULSE 92; RESP 16; TEMP 36.3; O2SAT 97; BMI 53.1
--- NOTE | 2020-02-21 18:02 | ED.VIS.DENTA ---
History of Present Illness Chief Complaint: Dental Informant: Patient Onset: Days - 1-2 Context: Gradual Onset Timing: Continuous Quality: ache Location: right maxillary molar dental extraction sites Current Severity: Severe Maximum Severity: Severe Worsened by: eating/chewing Relieved by: - - nothing Associated Symptoms: - - no fevers. feels swollen in side mouth, in gums at above site. Narrative: Patient says that she had a dental extraction from her dentist in [place] about a week ago. She was given 2 days worth of tramadol which is gone. She has been doing Tylenol and ibuprofen, states that pain is worsened in the last couple days and she feels like things are swollen inside her mouth at the extraction site, which is right maxillary molar, she states 2 teeth were extracted. She can feel something hard with her tongue and 1 of them. She has noted no discharge. She called her dentist but could not get a ride to [place] today, and the dentist is closed tomorrow so she presents for evaluation. - Past Medical History (1) Atherosclerotic heart disease of [place] coronary artery without angina pectoris Status: Chronic Comment: Non obstructive coronary arteries; Widely patent recently placed DIAG and distal RCA stents. Non obstructive mid LAD just distal to DIAG branch as well as distal RCA. Pt's symptoms are atypical for angina and degree of chest pain is out of proportion to CAD found per cath 08/19/[address] Huerta (2) Essential hypertension Status: Chronic (3) Hypercholesterolemia Status: Chronic (4) History of coronary artery stent placement Status: Resolved Comment: PCI-RAYMUNDO-LAD 11/25/2002; PCI-RAYMUNDO-RCA 04/18/2010; PCI-RAYMUNDO-D1 and distal RCA 08/12/18 RAYMUNDO LAD 11/25/2002 PCI-RAYMUNDO-D1 w/2.5 x 12 [place] 05/06/19 Past Medical History - Allergies and Home Meds Allergies/Adverse Reactions: Allergies metformin [From Glucophage] Adverse Reaction (Intermediate, Verified 02/21/20 17:39) Diarrhea Primary Care Physician: Carlotta Galindo MD [Primary Care Provider] - Surgical History: angioplasty - PTCA ?4 at [facility], cholecystectomy, - - 5 stents in the past, 2 back surgeries with hardware of the lumbar spine, carpal tunnel, tonsils, section, bilateral tubal ligation, I&D of breast abscesses, cervical conization Smoking Status: Unknown if ever smoked - Family History Maternal Family History: Family History (Last Reviewed 11/07/19 @ 14:[address] Columba Miranda MD) Mother Cancer Father Hypertension COPD (chronic obstructive pulmonary disease) Daughter Factor V deficiency Grandmother Cancer COPD (chronic obstructive pulmonary disease) Family History: Reports: Cancer, Diabetes, Heart Disease, Hypertension Paternal Family History: Family History (Last Reviewed 11/07/19 @ 14:[address] Columba Miranda MD) Mother Cancer Father Hypertension COPD (chronic obstructive pulmonary disease) Daughter Factor V deficiency Grandmother Cancer COPD (chronic obstructive pulmonary disease) Family History: Reports: Diabetes, Heart Disease, Hypertension, Pulmonary Disease Review of Systems General: Denies: Chills, Fever, Sweats ENT: Reports: - - Dental pain, see HPI. Denies: Bilateral ear pain, Rhinorrhea, Sore throat Respiratory: Denies: Dyspnea Gastrointestinal: Denies: Nausea, Vomiting Musculoskeletal: Denies: Neck pain Physical Exam Vital Signs/Narrative: Vital Signs Temp Pulse Resp BP Pulse Ox 02/21/20 17:39 97.3 F L 92 16 165/118 H 97 Inital Vital Signs reviewed: Yes General: Well nourished, Well developed, - - Well-appearing, no distress. Conversive in full sentences. Head: Normocephalic, Atraumatic ENT: Moist mucous membranes, No rhinorrhea Mouth/Throat: - - No stridor or hot potato voice. No trismus. Right maxillary molar extraction sites are right next to each other, they appear to have intact granulation tissue, the gingiva is mildly swollen but there is no bleeding or discharge. She is tender in the soft tissues just outside of the gingiva, almost supraperiosteally. There is no fluctuance, mass, abscess. There is a hard tooth-like palpable substance within the granulation tissue at 1 of the extraction sites, that could be consistent with a small piece of residual tooth. It does not feel like it moves. It is tender to push on according to the patient. Neck: Supple, No lymphadenopathy, Nontender Skin: Normal color, No rash, No Trauma Neurological: Alert, Oriented x3, Cranial nerves II-XII grossly intact, Normal Strength, Normal Sensation, Normal Gait Psychological: Normal affect, Normal Mood Diagnostic/Tx/Re-eval - Medical Decision Making Patient states she was here to have evaluation for dry sockets. She appears to have granulation tissue intact within the extraction sites. I think placing her on Augmentin is reasonable. I reviewed her oars report which is extensive, but mostly benzodiazepines recently. She was prescribed tramadol by her dental physician recently. She was not initially forthcoming with that when talking about the medications that she has been trying at home. I am not comfortable prescribing this patient narcotics, I told her I would give her a couple tablets here, and that she would need to take the antibiotic and make sure she follows up with her dentist as soon as she is able. There is no evidence for abscess, certainly an early infection is possible. ED Disposition - Plan for ED Patient: Disposition: Home or Assisted Living Diagnosis: Pain, dental Instructions: ED Tooth Pain Prescriptions: Amox/Clavulanate Tablet [Augmentin Tablet] 875 mg PO Q12H #20 tab Transmission Status: Pending to [facility] Referrals: Carlotta Galindo MD [Primary Care Provider] - Dentist,Your [STAFF PHYSICIAN] - As soon as possible
[2020-02-21] MEDS: Amox/Clavulanate 875 MG Tablet PO (18:24)
[2020-02-21] MEDS: HYDROcodone Bitartrate/Apap 5/325 Tablet PO (18:24)
== END 2020-02-21 18:29 | disposition home or self-care (01) ==
PROVIDERS: Emergency Provider Emergency Medicine; PCP Internal Medicine
DX: K08.89 Other specified disorders of teeth and supporting structures (principal); I25.10 Atherosclerotic heart disease of native coronary artery without angina pectoris; Z95.5 Presence of coronary angioplasty implant and graft
CPT/HCPCS: 99283

== ENCOUNTER 2020-09-25 10:33 | Observation (INO) | payer MEDICARE, MEDICAID, SELFPAY ==
[2019-05-06 13:18] VITALS: BMI 56.7
[2020-09-25] VITALS (16 sets, daily range): BP systolic 125–171; BP diastolic 74–105; PULSE 73–104; RESP 13–24; TEMP 36.1–36.7; O2SAT 95–98; BMI 51.7; BMI 50.1; BMI 50.2
--- NOTE | 2020-09-25 10:49 | EKG12_ITS ---
Test Reason : CP ADMIN Blood Pressure : / mmHG Vent. Rate : 105 BPM Atrial Rate : 105 BPM P-R Int : 150 ms QRS Dur : 078 ms QT Int : 354 ms P-R-T Axes : 033 002 014 degrees QTc Int : 467 ms Sinus tachycardia Otherwise normal ECG When compared with ECG of 18-OCT-2019 05:34, No significant change was found Confirmed by KEIKO SILVA, REHAN ([id number]), newspaper photo editor ODALYS PHILIPPE ([id number]) on 09/26/2020 1:51:48 PM Referred By: MAR Confirmed By:REHAN ADEN MD
[2020-09-25 10:57] LABS: Absolute Lymphocyte Count 4.08 X10^3/uL (0.83-4.51); Absolute Neutrophil Count 5.2 X10^3/uL (2.0-7.7); Basophil# 0.05 X10^3/uL; Basophil% 0.5 % (0-1); Eosinophil# 0.33 X10^3/uL; Eosinophils% 3.1 % (0-5); Hematocrit 41.4 % (37-47); Hemoglobin 14.2 g/dL (12.0-15.0); Lymphocyte # 4.08 X10^3/ul (4.0); Lymphocyte % 38.5 % (19-41); Mean Corp Hgb Conc 34.3 g/dL (32-36); Mean Corpuscular Hgb 32.6 pg (27.0-32.0); Mean Platelet Vol. 10.6 fl (6.2-12.0); Monocyte# 0.91 X10^3/uL; Monocyte% 8.6 % (0-10); NRBC Flagged by Analyzer 0 % (0-5); Neutrophil % 49.1 % (47-70); Platelet Count 290 K/mm3 (150-450); RBC Distribution Width CV 12.7 % (11.6-14.6); RBC Distribution Width SD 43.9 fl (35.1-43.9); Red Blood Count 4.36 M/mm3 (4.2-5.4); White Blood Count 10.6 K/mm3 (4.4-11.0)
[2020-09-25] MEDS: Nitroglycerin SL (ED/IMG/CATH) 0.4 MG TABLET SL ×3 (11:08→11:25)
[2020-09-25] MEDS: Morphine 4 MG/ML Syringe IV ×5 (11:08→23:28)
[2020-09-25 11:09] LABS: D-Dimer Quantitative (DVT/PE) 0.45 FEU/ug/m (0.27-0.49)
[2020-09-25] MEDS: 0.9% Normal Saline 1,000 ML 150 ML IV (11:09)
[2020-09-25 11:12] LABS: Anion Gap 7 (5-15); BUN 10 mg/dL (7-18); BUN/Creat Ratio 17.4 RATIO (10-20); Calcium,Total 8.5 mg/dL (8.5-10.1); Chloride 101 mmol/L (98-107); Creatinine, Serum 0.58 mg/dL (0.55-1.02); EST Glomerular Filtration Rate 119 mL/min (>60); Est Glom Filt Rate - Afr Amer 145 mL/min (>60); Estimated Creatinine Clearance 113.46 ml/min; Glucose 366 mg/dL (74-106); Potassium 4.1 mmol/L (3.5-5.1); Sodium Level 136 mmol/L (136-145)
[2020-09-25 11:19] LABS: Lipase 24 U/L (73-393)
--- NOTE | 2020-09-25 11:35 | RAD_ITS ---
STUDY: X-RAY CHEST REASON FOR EXAM: Female, 44 years old. Chest pain TECHNIQUE: Single AP portable view of the chest. COMPARISON: Comparison is made with prior examination 10/16/2019. FINDINGS: EKG electrodes are seen. The lungs are clear and expanded. There is no demonstrated pleural abnormality. Normal size heart. Normal mediastinum and larisa. Normal visualized pulmonary arteries. Normal visualized aortic arch and descending thoracic aorta. There are degenerative changes of the visualized thoracic spine. Normal visualized ribs, clavicles, and shoulders. There is no demonstrated abnormality of the visualized soft tissue structures of the upper abdomen. RAD/Chest 1 View (Portable) IMPRESSION: Normal x-ray examination of the chest. Electronically Signed: Jacobo Joshi MD at 12:14 EDT , Service support ,
--- NOTE | 2020-09-25 11:37 | ED.VISSUMM ---
- ER Visit Summary Date of Service: 09/25/20 Chief Complaint: [Pain] History of Present Illness: The patient is a 44 F [presents to the emergency department complaint chest discomfort that she initially noted about an hour and a half ago. Patient states that she got up and took a nitro which seemed to help the discomfort and so she try to go back to bed. When she woke up she had discomfort again. She states radiates to her back. She describes it as a pressure or heaviness. Patient had similar discomfort in the past and has a history of coronary artery disease with a total of about 6 stents. Patient's last stress test was over a year and a half ago at which time she got 2 stents. Patient denies recent travel or surgery. She does have history of diabetes, hypertension, and high cholesterol. Patient has remote history of DVT but is not currently anticoagulated. Patient does take Plavix. Patient states that the pain is somewhat similar to the pain she is had in the past with her heart issues although this time it does not seem to radiate down her arm.] Physical Examination: [HEENT-PERRLA, EOMI. Cranial nerves II through XII grossly intact. TMs clear. Mucous membranes moist. No adenopathy. Cardiovascular-regular rate and rhythm without murmur or ectopy Lungs-clear to auscultation, chest wall stable without crepitus or subcu emphysema Abdomen-normoactive bowel sounds, soft, nontender, no rebound or rigidity, no peritoneal signs. Extremities-intact ?4, normal range of motion, normal pulses, atraumatic] Test Results: [EKG obtained arrival shows sinus rhythm with a ventricular rate of 73 bpm with old anterior septal infarct noted. CBC with differential obtained showed a white count 10.6, hemoglobin 14, hematocrit 41, platelets 290. Chemistries unremarkable. Glucose was 366. Lipase was 24. Troponin less than 0.015. D-dimer was 0.45. Chest x-ray 1 view obtained interpreted by myself as no acute disease process.] Emergency Department Course and Treatment: [IV line established on arrival. Patient had received aspirin by EMS and she took her Plavix today. Patient received nitroglycerin sublingual here which seemed to ease the pain and she also received 4 mg of morphine. Patient continues to describe some discomfort and states that her pain is not resolved. She will be receiving a second dose of morphine. I will place an inch of Nitropaste to the anterior chest wall.] Patient continued complaint of pain and was medicated with Dilaudid 1 mg IV. Case was discussed with hospitalist and cardiology and patient will be admitted for further evaluation of her chest pain. My suspicion for dissection is low. Treatment Plan: Admit [] Disposition: [Admit] Impression: [Chest pain-rule out acute coronary syndrome] This note was generated with [employer]aps[employer] dictation software. It may contain incorrect words, spelling, and punctuation that were not noted in review of the chart prior to signing ED Disposition - Plan for ED Patient: Referrals: Carlotta Galindo MD [Primary Care Provider] -
--- NOTE | 2020-09-25 11:49 | NURSING ---
HOSPITALIST FOR DR PEGUERO
[2020-09-25] MEDS: Nitroglycerin Oint 1 INCH PACKET TD (12:02)
--- NOTE | 2020-09-25 13:04 | EKG12_ITS ---
Test Reason : CP Blood Pressure : / mmHG Vent. Rate : 073 BPM Atrial Rate : 073 BPM P-R Int : 154 ms QRS Dur : 078 ms QT Int : 394 ms P-R-T Axes : 037 007 019 degrees QTc Int : 434 ms Normal sinus rhythm Cannot rule out Anterior infarct , age undetermined Abnormal ECG Confirmed by KEIKO SILVA, REHAN ([id number]), industrial editor ODALYS PHILIPPE ([id number]) on 09/26/2020 1:53:46 PM Referred By: MR Confirmed By:REHAN ADEN MD
--- NOTE | 2020-09-25 13:07 | ED.RN ---
Physician aware still has chest pain. New EKG ordered
--- NOTE | 2020-09-25 13:50 | NURSING ---
CHEMISTRIES HEMOLIZED
[2020-09-25] MEDS: HYDROmorphone 1 MG/ML Syringe IV (13:52)
--- NOTE | 2020-09-25 14:42 | NURSING ---
DARIU CP OBS MAR
--- NOTE | 2020-09-25 15:04 | EKG12_ITS ---
Test Reason : REPEAT Blood Pressure : / mmHG Vent. Rate : 086 BPM Atrial Rate : 086 BPM P-R Int : 158 ms QRS Dur : 078 ms QT Int : 382 ms P-R-T Axes : 036 004 012 degrees QTc Int : 457 ms Normal sinus rhythm Cannot rule out Anterior infarct , age undetermined Abnormal ECG Confirmed by KEIKO SILVA, REHAN ([id number]), manuscript editor ODALYS PHILIPPE ([id number]) on 09/26/2020 1:54:03 PM Referred By: RU Confirmed By:REHAN ADEN MD
--- NOTE | 2020-09-25 15:04 | PCM.HP.STD ---
Problem List (1) Diabetes mellitus type 2 in obese Status: Chronic (2) Morbid obesity with BMI of 50.0-59.9, adult Status: Chronic (3) Hypothyroidism Status: Chronic (4) Atherosclerotic heart disease of [place] coronary artery without angina pectoris Status: Chronic Qualifiers: Comment: Non obstructive coronary arteries; Widely patent recently placed DIAG and distal RCA stents. Non obstructive mid LAD just distal to DIAG branch as well as distal RCA. Pt's symptoms are atypical for angina and degree of chest pain is out of proportion to CAD found per cath 08/19/[address] Huerta (5) History of coronary artery stent placement Status: Resolved Comment: PCI-RAYMUNDO-LAD 11/25/2002; PCI-RAYMUNDO-RCA 04/18/2010; PCI-RAYMUNDO-D1 and distal RCA 08/12/18 RAYMUNDO LAD 11/25/2002 PCI-RAYMUNDO-D1 w/2.5 x 12 El[place]ir 05/06/19 (6) Essential hypertension Status: Chronic (7) Hypercholesterolemia Status: Chronic History of Present Illness Date of Admission: 09/25/20 Chief Complaint: Chest pressure today The patient is a 44 year old F with history of coronary artery status post 6 stents and other comorbidities as mentioned above came to ER with chest pain about 1 and half hours prior to arrival to ER. Chest pain is mainly retrosternal with radiation to interscapular area, stable persistent although little improved. This is associated with mild shortness of breath and diaphoresis. Patient stated she has been feeling dyspnea on exertion, tiredness for last 2 to 3 weeks. She had cardiac cath in October 2019 reported as in-stent 20% restenosis in a small RCA stent. Moderate disease in mid to distal RCA but no high-grade stenosis. EF by LV gram 60%. Normal LV systolic function. She did not had PCI decided for medical intermittent time. Twelve-lead EKG done in the ER is normal sinus rhythm 86 bpm QTC [address]-T change in 2 EKGs done in ER and EMS EKG. 2 troponins negative. [] Patient has history of chronic bronchitis chest x-ray reported normal. She is still cigarette smoker about half pack per day. Past Medical History Past Medical History (Chronic Problems): Chronic Problems (Last Reviewed 03/27/20 @ 16:[address] Columba Miranda MD) Diabetes mellitus type 2 in obese (Chronic) Morbid obesity with BMI of 50.0-59.9, adult (Chronic) Hypothyroidism (Chronic) Atherosclerotic heart disease of [place] coronary artery without angina pectoris (Chronic) Non obstructive coronary arteries; Widely patent recently placed DIAG and distal RCA stents. Non obstructive mid LAD just distal to DIAG branch as well as distal RCA. Pt's symptoms are atypical for angina and degree of chest pain is out of proportion to CAD found per cath 08/19/[address] Huerta Essential hypertension (Chronic) Hypercholesterolemia (Chronic) Medical History: Medical History (Last Reviewed 03/27/20 @ 16:[address] Columba Miranda MD) Atherosclerotic heart disease of [place] coronary artery without angina pectoris (Chronic) I25.10 Non obstructive coronary arteries; Widely patent recently placed DIAG and distal RCA stents. Non obstructive mid LAD just distal to DIAG branch as well as distal RCA. Pt's symptoms are atypical for angina and degree of chest pain is out of proportion to CAD found per cath 08/19/[address] Huerta Essential hypertension (Chronic) I10 Hypercholesterolemia (Chronic) E78.00 Asthma J45.909 Chronic obstructive pulmonary disease J44.9 Diabetes mellitus, type II E11.9 GERD (gastroesophageal reflux disease) K21.9 History of anxiety Z86.59 Hypothyroidism E03.9 Morbid obesity E66.01 GEOVANI (obstructive sleep apnea) G47.33 Sleep-disordered breathing G47.30 Tobacco use Z72.0 Constipation K59.00 Allergies metformin [From Glucophage] Adverse Reaction (Intermediate, Verified 09/25/20 10:39) Diarrhea Home Medications: Ambulatory Orders Medication Instructions Recorded Aspirin [Aspirin, Baby] 81 mg PO DAILY@0800 06/11/15 Clopidogrel Bisulfate [Plavix] 75 mg PO DAILY 06/11/15 Albuterol Inhaler [Ventolin Hfa] 1 - 2 puff INHALATION Q4H PRN PRN 10/15/15 #1 inhaler Pantoprazole Sodium [Protonix] 40 mg PO DAILY 09/23/16 Ondansetron [Zofran Odt] 4 mg PO Q8H PRN PRN #10 tab 03/07/18 ALPRAZolam [Xanax] 1 mg PO QHS PRN 08/18/18 Atorvastatin Calcium [Lipitor] 80 mg PO QHS #60 tab 08/20/18 Carvedilol [Coreg (Beta Monisha)] 25 mg PO BID 05/04/19 Budesonide/Formoterol 160/4.5 2 puff PO BID 05/07/19 [Symbicort 160/4.5 Mcg Inhaler (SP)] Insulin Regular, Human [Novolin R] 26 units SUBCUT TIDCM 05/07/19 Insulin NPH Human [Humulin N Pen] 32 units SUBCUT BIDAC 07/19/19 cycloBENZAPRine HCl [Flexeril] 5 mg PO TID PRN PRN 07/19/19 traZODone [Desyrel] 50 mg PO QHS PRN PRN 07/19/19 Lisinopril [Zestril] 40 mg PO DAILY #0 07/20/19 Naproxen 500 mg PO BID PRN #0 07/20/19 Dulaglutide [Trulicity] 1.5 mg SQ TH 10/16/19 Isosorbide Mononitrate [Imdur] 60 mg PO DAILY #30 tab 10/18/19 levothyroxine 200 mcg tablet 200 mcg PO DAILY tab 11/07/19 levothyroxine 25 mcg tablet 25 mcg PO DAILY 11/07/19 Bupropion HCl [Bupropion Xl] 150 mg PO DAILY 09/25/20 Bupropion HCl [Bupropion Xl] 300 mg PO DAILY 09/25/20 Desvenlafaxine Succinate [Pristiq] 50 mg PO DAILY 09/25/20 Surgical History: Surgical History (Last Reviewed 03/27/20 @ 16:[address] Columba Miranda MD) History of coronary artery stent placement (Resolved) Onset Date: 05/06/19 Z95.5 PCI-RAYMUNDO-LAD 11/25/2002; PCI-RAYMUNDO-RCA 04/18/2010; PCI-RAYMUNDO-D1 and distal RCA 08/12/18 RAYMUNDO LAD 11/25/2002 PCI-RAYMUNDO-D1 w/2.5 x 12 Elunir 05/06/19 History of left heart catheterization Onset Date: 10/18/19 Z98.890 History of back surgery Z98.890 lumbar in 2013, 2014 History of delivery Z98.891 History of cholecystectomy Z90.49 History of dilatation and curettage Z98.890 History of tonsillectomy and adenoidectomy Z98.890 History of tubal ligation Z98.51 Surgical History: angioplasty - PTCA ?4 at [facility], cholecystectomy, - - 5 stents in the past, 2 back surgeries with hardware of the lumbar spine, carpal tunnel, tonsils, section, bilateral tubal ligation, I&D of breast abscesses, cervical conization Psychiatric History: Anxiety, Depression 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 Columba Miranda MD) Mother Cancer Father Hypertension COPD (chronic obstructive pulmonary disease) Daughter Factor V deficiency Grandmother Cancer COPD (chronic obstructive pulmonary disease) History Items: Cancer, Diabetes, Heart Disease, Hypertension Paternal Family History: Family History (Last Reviewed 03/27/20 @ 16:[address] Columba Miranda MD) Mother Cancer Father Hypertension COPD (chronic obstructive pulmonary disease) Daughter Factor V deficiency Grandmother Cancer COPD (chronic obstructive pulmonary disease) History Items: Diabetes, Heart Disease, Hypertension, Pulmonary Disease Review of Systems Constitutional: Denies: Chills, Fever, Weight Change HEENT: Denies: Head Aches, Sinus Congestion, Sinus Drainage Cardiovascular: Reports: Chest Pain, Chest Pressure, Edema. Denies: Palpitations Respiratory: Reports: Cough - Chronic cough secondary to chronic bronchitis/COPD, Shortness of breath upon exertion. Denies: Shortness of breath at rest, Sputum production Gastrointestinal: Denies: Abdominal Pain, Nausea, Vomiting Genitourinary: Denies: Dysuria, Frequency, Hematuria Musculoskeletal: Denies: Joint Pain, Joint Tenderness Skin: Denies: Rash, Wounds Neurological: Denies: Numbness, Tingling, Focal weakness Psychiatric: Reports: Anxiety, Depression. Denies: Homicidal Ideations, Suicidal Ideations Hematologic/ Lymphatic: Denies: Easy Bruising, Easy Bleeding VTE Information - Inpt Only VTE Present on Admission: No VTE Mechan Device Prophylaxis: None VTE Pharm Prophylaxis ordered?: Yes Objective: General: Alert, Oriented x3, Cooperative HEENT: Atraumatic, PERRLA, EOMI, Normocephalic Oral: No Gingival or Mucosal Lesions/ Ulcerations Neck: Supple, No JVD, Negative Carotid Bruits Lungs: Air entry diminished in bilateral lung bases. No crepitation/rhonchi Cardiovascular: Regular rate, Regular Rhythm, Normal S1, Normal S2, No murmurs Abdomen: Bowel Sounds Present, Soft, Non Tender, Non-Distended : No renal angle tenderness. No suprapubic tenderness. Extremities: Bilateral mild ankle edema, Capillary Refill Less than 3 Seconds Skin: No rashes, No breakdown Musculoskeletal: No Tenderness to Palpation of Joints or Extremities Neurological: Cranial nerves II-XII grossly intact, Deep Tendon Reflexes 2+/4 and Symmetrical, Neuro grossly intact Psych/Mental Status: Normal Affect, Appropriate. - Physical Exam Vitals/I&O's: Vital Signs Temp Pulse Resp BP Pulse Ox 98.1 F 88 24 H 171/99 H 96 09/25/20 10:34 09/25/20 13:06 09/25/20 13:06 09/25/20 13:06 09/25/20 13:06 Oxygen Delivery Method Room Air Weight: 310 lb 13.628 oz Body Mass Index (BMI) 50.1 Finger Stick Blood Glucose 328 Laboratory Results 09/25/20 10:40: WBC 10.6, RBC 4.36, Hgb 14.2, Hct 41.4, MCV 95.0, MCH 32.6 H, MCHC 34.3, RDW Std Deviation 43.9, RDW Coeff of [place] 12.7, Plt Count 290, MPV 10.6, Immature Gran % (Auto) 0.200, Neut % (Auto) 49.1, Lymph % (Auto) 38.5, [place] % (Auto) 8.6, Eos % (Auto) 3.1, Baso % (Auto) 0.5, Absolute Neuts (auto) 5.2, Absolute Lymphs (auto) 4.08, Nucleated RBC % 0 09/25/20 10:40: D-Dimer Quant (PE/DVT) 0.45 09/25/20 10:40: Sodium 136, Potassium 4.1, Chloride 101, Carbon Dioxide 28.0, Anion Gap 7, BUN 10, Creatinine 0.58, Estim Creat Clear Calc 113.46, Est GFR (MDRD) Af Amer 145, Est GFR (MDRD) Non-Af 119, BUN/Creatinine Ratio 17.4, Glucose 366 H, Calcium 8.5, Troponin I < 0.015 09/25/20 10:40: Lipase 24 L 09/25/20 13:40: Troponin I Cancelled 09/25/20 14:00: Troponin I < 0.015 Current Medications Sodium Chloride () 1,000 mls @ 150 mls/hr IV .Q6H40M LUIS Last Admin: 09/25/20 11:09 Dose: 150 mls/hr Documented by: Assessment/Plan All Active Problems (Last Reviewed 03/27/20 @ 16:[address] Columba Miranda MD) History of coronary artery stent placement (Resolved 05/06/19) Chest pain (Resolved) Exertional chest pain (Resolved) The patient is a 44 year old F with history of coronary artery status post 6 stents and other comorbidities as mentioned above came to ER with chest pain about 1 and half hours prior to arrival to ER. 1. Unstable angina with history of coronary artery disease status post stents: Patient is being admitted in PCU. Repeat 1 more troponin after 4 hours of second one. Third EKG is similar to previous 2 EKGs with no significant ST-T changes. Sinus tachycardia at rate 105 bpm. QTC 467 ms. Motion Picture Film Examiner consulted, discussed with Dr. Busby. 2D echo suggestive of chronic HFpEF/diastolic heart failure. Patient home medications aspirin, Plavix, carvedilol, lisinopril and atorvastatin continued. On Imdur 60 mg daily. Nitropaste 1 inch every 6 hourly as needed for chest pressure. Last echo in August 2018 Interpretation Summary The estimated ejection fraction is 65 %. Stage 1 diastolic dysfunction. Mildly dilated right ventricle. Trivial tricuspid valve insufficiency. Trivial posterior pericardial effusion. There are no echocardiographic indications of cardiac tamponade. 2. Type 2 diabetes mellitus with morbid obesity: At home, patient is on NPH insulin 32 units twice daily and regular insulin 26 units 3 times daily with meals. NPH insulin increased to 35 units minutes twice daily. Regular insulin chest to Humalog insulin 25 units 3 times daily AC with meals. Accu-Chek is in the cover with Humalog sliding scale. Blood sugar is high 366 BMP. 3 Hypothyroidism: On Synthroid. 4.COPD/chronic bronchitis: Patient home inhaler Symbicort continued. On DuoNeb as needed for shortness of breath. 5. Hypertension: Blood pressure is elevated 171/99, 168/83. On lisinopril 40 mg daily and carvedilol. Hydralazine 50 mg twice daily added along with 10 mg IV q. 6 hourly as needed for systolic blood pressure more than 180 mmHg 6. Anxiety/depression: On venlafaxine. Patient also on trazodone. DVT prophylaxis: High risk secondary to morbid obesity. Lovenox 30 mg subcu twice daily. D-dimer negative. Living will/advanced directive/end of life care: Patient does not have living will or advanced directive. After discussion of benefits/risks procedures involved with full code, DNR CC arrest and DNR CC, the patient opted for full code. Patient does want artificial life support including intubation, tube feed, ventilator and/chest compression, central venous catheter, vasopressor and DC shock if needed Total time spent in [id number] encounter in discussion of advanced directive 16 minutes. Laboratory Results 09/25/20 10:40: WBC 10.6, RBC 4.36, Hgb 14.2, Hct 41.4, MCV 95.0, MCH 32.6 H, MCHC 34.3, RDW Std Deviation 43.9, RDW Coeff of [place] 12.7, Plt Count 290, MPV 10.6, Immature Gran % (Auto) 0.200, Neut % (Auto) 49.1, Lymph % (Auto) 38.5, [place] % (Auto) 8.6, Eos % (Auto) 3.1, Baso % (Auto) 0.5, Absolute Neuts (auto) 5.2, Absolute Lymphs (auto) 4.08, Nucleated RBC % 0 09/25/20 10:40: D-Dimer Quant (PE/DVT) 0.45 09/25/20 10:40: Sodium 136, Potassium 4.1, Chloride 101, Carbon Dioxide 28.0, Anion Gap 7, BUN 10, Creatinine 0.58, Estim Creat Clear Calc 113.46, Est GFR (MDRD) Af Amer 145, Est GFR (MDRD) Non-Af 119, BUN/Creatinine Ratio 17.4, Glucose 366 H, Calcium 8.5, Troponin I < 0.015 09/25/20 10:40: Lipase 24 L 09/25/20 10:40: B-Natriuretic Peptide Pending 09/25/20 13:40: Troponin I Cancelled 09/25/20 14:00: Troponin I < 0.015 09/25/20 14:00: Magnesium Pending Clinical Impression(s) from Imaging Studies Chest X-Ray 09/25/20 11:35 IMPRESSION: Normal x-ray examination of the chest. OBSV E&M: 37901 Initial observation care L3 Procedures: 83064 Advncd Care Plan 30 Min
[2020-09-25 15:23] LABS: Magnesium 1.5 mg/dL (1.6-2.6)
[2020-09-25 15:32] LABS: BNP,B-Type NATRIURETIC PEPTIDE 39.3 pg/mL (0-100)
[2020-09-25] MEDS: Carvedilol 25 MG Tablet PO (15:58)
[2020-09-25] MEDS: Clopidogrel Bisulfate 75 MG Tablet PO (15:58)
[2020-09-25] MEDS: hydrALAZINE 50 MG Tablet PO (16:08)
[2020-09-25] MEDS: Insulin Lispro 100 UNIT/ML INSULN.PEN 25 UNIT SC (16:16)
[2020-09-25] MEDS: Insulin Lispro 100 UNIT/ML INSULN.PEN SC ×2 (16:17→21:27)
[2020-09-25] MEDS: Insulin NPH Human 100 UNITS/ML PEN 35 UNITS SC (16:18)
[2020-09-25] MEDS: 0.9% Saline Lock 10 ML Syringe IV ×3 (16:20→23:28)
[2020-09-25 16:30] LABS: Bedside Glucose 417 mg/dL (70-110)
--- NOTE | 2020-09-25 17:48 | CON.PCM_ITS ---
Reason for Consult Date of Consultation: 09/25/20 Reason for Consultation: Chest pain History of Present Illness: The patient is a 44 year old F with a history of coronary artery disease status post previous angioplasty and stenting. She presented to the emergency room with complaints of chest discomfort which she said woke her up from sleep. She describes it as a pressure-like sensation radiating to her scapular region. She did undergo a cardiac catheterization in October 2019 and also in July 2019. She had previously undergone PCI most recently in August 2018. Her most recent cardiac catheterization demonstrated normal left main coronary artery,Ramus intermedius with mild disease,Left anterior descending artery previously stented which was patent with no high-grade stenosis Left circumflex artery with no significant disease,Right coronary artery previ ously stented with mild to moderate in-stent stenosis and mid to distal moderate disease and preserved left ventricular systolic function. Based on the above medical therapy was recommended. She also has a history of diabetes mellitus, morbid obesity, hypertension, and hyperlipidemia. After she was seen in the emergency room it had been determined that she likely should undergo medical therapy however the patient did not want to leave because she says that her chest pain was getting worse. She was therefore admitted for further evaluation and management. Past Medical History Allergies/Adverse Reactions: Allergies metformin [From Glucophage] Adverse Reaction (Intermediate, Verified 09/25/20 10:39) Diarrhea hydromorphone [From Dilaudid] Adverse Reaction (Verified 09/25/20 15:24) Itching morphine Adverse Reaction (Verified 09/25/20 15:24) Itching Home Medications: Ambulatory Orders Medication Instructions Recorded Aspirin [Aspirin, Baby] 81 mg PO DAILY@0800 06/11/15 Clopidogrel Bisulfate [Plavix] 75 mg PO DAILY 06/11/15 Albuterol Inhaler [Ventolin Hfa] 1 - 2 puff INHALATION Q4H PRN PRN 10/15/15 #1 inhaler Pantoprazole Sodium [Protonix] 40 mg PO DAILY 09/23/16 Ondansetron [Zofran Odt] 4 mg PO Q8H PRN PRN #10 tab 03/07/18 ALPRAZolam [Xanax] 1 mg PO QHS PRN 08/18/18 Atorvastatin Calcium [Lipitor] 80 mg PO QHS #60 tab 08/20/18 Carvedilol [Coreg (Beta Monisha)] 25 mg PO BID 10/30/19 Budesonide/Formoterol 160/4.5 2 puff PO BID 05/07/19 [Symbicort 160/4.5 Mcg Inhaler (SP)] Insulin Regular, Human [Novolin R] 26 units SUBCUT TIDCM 05/07/19 Insulin NPH Human [Humulin N Pen] 32 units SUBCUT BIDAC 07/19/19 cycloBENZAPRine HCl [Flexeril] 5 mg PO TID PRN PRN 07/19/19 traZODone [Desyrel] 50 mg PO QHS PRN PRN 07/19/19 Lisinopril [Zestril] 40 mg PO DAILY #0 07/20/19 Naproxen 500 mg PO BID PRN #0 07/20/19 Dulaglutide [Trulicity] 1.5 mg SQ TH 10/16/19 Isosorbide Mononitrate [Imdur] 60 mg PO DAILY #30 tab 10/18/19 levothyroxine 200 mcg tablet 200 mcg PO DAILY tab 11/07/19 levothyroxine 25 mcg tablet 25 mcg PO DAILY 11/07/19 Bupropion HCl [Bupropion Xl] 150 mg PO DAILY 09/25/20 Bupropion HCl [Bupropion Xl] 300 mg PO DAILY 09/25/20 Desvenlafaxine Succinate [Pristiq] 50 mg PO DAILY 09/25/20 Past Medical History (Chronic Problems): Chronic Problems (Last Reviewed 03/27/20 @ 16:[address] Columba Miranda MD) Diabetes mellitus type 2 in obese (Chronic) Morbid obesity with BMI of 50.0-59.9, adult (Chronic) Hypothyroidism (Chronic) Atherosclerotic heart disease of [place] coronary artery without angina pectoris (Chronic) Non obstructive coronary arteries; Widely patent recently placed DIAG and distal RCA stents. Non obstructive mid LAD just distal to DIAG branch as well as distal RCA. Pt's symptoms are atypical for angina and degree of chest pain is out of proportion to CAD found per cath 08/19/[address] 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 Columba Miranda MD) Mother Cancer Father Hypertension COPD (chronic obstructive pulmonary disease) Daughter Factor V deficiency Grandmother Cancer COPD (chronic obstructive pulmonary disease) History Items: Cancer, Diabetes, Heart Disease, Hypertension Paternal Family History: Family History (Last Reviewed 03/27/20 @ 16:[address] Columba Miranda MD) Mother Cancer Father Hypertension COPD (chronic obstructive pulmonary disease) Daughter Factor V deficiency Grandmother Cancer COPD (chronic obstructive pulmonary disease) History Items: Diabetes, Heart Disease, Hypertension, Pulmonary Disease Smoking Status: Current every day smoker Tobacco Use: Cigarettes Alcohol: None Drugs: None Review of Systems - Review of Systems General: Denies: Fever, Night Sweats, Fatigue HEENT: Denies: Vision Change Cardiovascular: Reports: Chest Discomfort, Chest Discomfort at Rest, Chest Discomfort with Exertion. Denies: Shortness of Breath, Orthopnea, PND, Periph eral Edema, Palpitations, Lightheadedness, Dizziness, Near Syncope, Syncope Respiratory: Denies: Cough, Sputum Production, Hemoptysis Gastrointestinal: Denies: Hematemesis, Hematochezia, Melena Genitourinary: Denies: Dysuria, Hematuria Skin: Denies: Rash Neurological: Denies: Dizziness Psychiatric: Denies: Anxiety Endocrine: Denies: Unexplained Weight Loss Hematologic/ Lymphatic: Denies: Anemia Subjectve: Young lady in no distress Objective: Vital Signs Temp Pulse Resp BP Pulse Ox 97.8 F 76 16 168/83 H 95 09/25/20 15:06 09/25/20 16:08 09/25/20 15:06 09/25/20 16:08 09/25/20 17:20 Oxygen Delivery Method Room Air Weight: 310 lb 13.628 oz Body Mass Index (BMI) 50.1 Finger Stick Blood Glucose 328 Intake and Output for Last 24 Hours 09/23/20 09/24/20 09/25/20 23:59 23:59 23:59 Intake Total 840 / 840 Balance 840 / 840 General: Awake, Alert, Oriented x 3 HEENT: PERRL, EOMI, Sclera Non Icteric Neck: Supple, Good ROM, No Lymph Node Enlargement Lungs: Clear to auscultation Cardiovascular: Regular Rhythm, Normal S1, Normal S2, No Murmurs, No Rubs, No Gallops Vascular: No Carotid Bruits, Normal Femoral Pulses, Normal Radial Pulses, Normal Dorsalis Pedal Pulse, Normal Posterior Tibial Pulses Abdomen: Bowel Sounds Present, Soft, Non Tender, No HSM, No Organomegaly Extremities: No Cyanosis, No Clubbing, No edema Musculoskeletal: No Erythema Skin: No Rashes Neurological: No Focal Motor or Sensory Deficit Psych/Mental Status: Appropriate 09/25/20 10:40: WBC 10.6, RBC 4.36, Hgb 14.2, Hct 41.4, MCV 95.0, MCH 32.6 H, MCHC 34.3, Plt Count 290, MPV 10.6, Immature Gran % (Auto) 0.200, Neut % (Auto) 49.1, Lymph % (Auto) 38.5, [place] % (Auto) 8.6, Eos % (Auto) 3.1, Baso % (Auto) 0.5, Absolute Neuts (auto) 5.2, Nucleated RBC % 0 09/25/20 10:40: D-Dimer Quant (PE/DVT) 0.45 09/25/20 10:40: Sodium 136, Potassium 4.1, Chloride 101, Carbon Dioxide 28.0, Anion Gap 7, BUN 10, Creatinine 0.58, Est GFR (MDRD) Af Amer 145, Est GFR (MDRD) Non-Af 119, BUN/Creatinine Ratio 17.4, Glucose 366 H, Calcium 8.5, Troponin I < 0.015 09/25/20 10:40: B-Natriuretic Peptide 39.3 09/25/20 13:40: Troponin I Cancelled 09/25/20 14:00: Troponin I < 0.015 09/25/20 14:00: Magnesium 1.5 L Rhythm: EKG: Normal sinus rhythm with no acute changes ECHO: Stress Test: Cardiac Cath: PCI: CT Surgery: Holter monitor: EPS: PPM: CXR: Chest CT Scan: Assessment/Plan Chest pain in a patient with CAD: * Status post PCI x5, most recently in October 2019 which demonstrated normal left main coronary artery, Ramus intermedius with mild disease Left anterior descending artery previously stented which was patent with no high-grade stenosis Left circumflex artery with no significant disease Right coronary artery previously stented with mild to moderate in-stent stenosis and mid to distal moderate disease She presents with recurrent chest discomfort and at this point it would behoove us to reevaluate her coronary anatomy. I have discussed the above with her the risk benefits and alternatives she understands and agrees to proceed. 2 Diabetes mellitus type II: Will continue home insulin regimen, ADA diet until NPO, accu checks w/ ISS. 3. Morbid Obesity: Weight loss and lifestyle changes encouraged. 4. Hypertension: Continue home regimen including Coreg, lisinopril, will add isosorbide 60 mg a day. 5. Hyperlipidemia: Continue home statin regimen. AM FLP. Thank you for allowing me to participate in the care of your patient. Please don't hesitate to call if any issues arise.
[2020-09-25] MEDS: Budesonide Respules 0.5 MG/2 ML AMPUL.NEB. INHALATION (18:55)
[2020-09-25] MEDS: Albuterol 2.5 MG/3 ML VIAL.NEB. INHALATION (18:55)
[2020-09-25] MEDS: traZODone 50 MG Tablet PO (21:27)
[2020-09-25] MEDS: Atorvastatin Calcium 80 MG Tablet PO (21:27)
[2020-09-25] MEDS: ALPRAZolam 0.5 MG Tablet 1 MG PO (23:28)
[2020-09-26] VITALS (23 sets, daily range): BP systolic 120–169; BP diastolic 64–114; PULSE 86–129; RESP 15–19; TEMP 36.6–37; O2SAT 94–99
[2020-09-26] MEDS: 0.9% Saline Lock 10 ML Syringe IV ×3 (02:34→16:03)
[2020-09-26] MEDS: Morphine 4 MG/ML Syringe IV ×4 (02:34→21:10)
[2020-09-26 02:46] LABS: Bedside Glucose 266 mg/dL (70-110)
[2020-09-26] MEDS: Levothyroxine 25 MCG TABLET PO (06:25)
[2020-09-26] MEDS: Carvedilol 25 MG Tablet PO ×2 (06:25→21:18)
[2020-09-26] MEDS: Levothyroxine 100 MCG Tablet 200 MCG PO (06:25)
[2020-09-26] MEDS: Aspirin E.C. 81 MG Tablet PO (06:25)
[2020-09-26] MEDS: Isosorbide Mononitrate 60 MG Tablet PO (06:25)
[2020-09-26] MEDS: Clopidogrel Bisulfate 75 MG Tablet PO (06:25)
[2020-09-26] MEDS: hydrALAZINE 50 MG Tablet PO ×2 (06:25→21:18)
[2020-09-26 06:51] LABS: Bedside Glucose 293 mg/dL (70-110)
[2020-09-26] MEDS: Budesonide Respules 0.5 MG/2 ML AMPUL.NEB. INHALATION (06:54)
[2020-09-26] MEDS: Albuterol 2.5 MG/3 ML VIAL.NEB. INHALATION (06:56)
[2020-09-26 07:31] LABS: Anion Gap 6 (5-15); BUN 14 mg/dL (7-18); BUN/Creat Ratio 29.9 RATIO (10-20); Calcium,Total 8.5 mg/dL (8.5-10.1); Chloride 101 mmol/L (98-107); Cholesterol 156 mg/dL (200); Creatinine, Serum 0.47 mg/dL (0.55-1.02); EST Glomerular Filtration Rate 151 mL/min (>60); Est Glom Filt Rate - Afr Amer 183 mL/min (>60); Estimated Creatinine Clearance 140.01 ml/min; Glucose 263 mg/dL (74-106); High Density Lipoprotein 53 mg/dL; Magnesium 1.8 mg/dL (1.6-2.6); Phosphorus 3.8 mg/dL (2.5-4.9); Potassium 3.9 mmol/L (3.5-5.1); Sodium Level 133 mmol/L (136-145); T4 Free Direct 1.07 ng/dL (0.76-1.46); Triglycerides 142 mg/dL; Very Low Density Lipoprotein 28 mg/dL (5-40)
[2020-09-26 08:06] LABS: Hemoglobin A1c 8.9 % (3.8-5.6)
[2020-09-26 08:39] LABS: Internal QC Validated? YES +Cl - CLEAR BKGD; Pregnancy, Serum, hCG Quali. NEGATIVE Negative
--- NOTE | 2020-09-26 09:09 | CASEMGMT ---
According to the [facility] website, the following are in-network tertiary facilities: [facility], [facility], [facility], [facility], [facility], and . Vicki GRIJALVA CM
[2020-09-26] MEDS: 0.9% Normal Saline 1,000 ML 80 ML IV (11:50)
--- NOTE | 2020-09-26 12:00 | EKG12_ITS ---
Test Reason : AM EKG Blood Pressure : / mmHG Vent. Rate : 105 BPM Atrial Rate : 105 BPM P-R Int : 158 ms QRS Dur : 078 ms QT Int : 346 ms P-R-T Axes : 034 002 035 degrees QTc Int : 457 ms Sinus tachycardia Otherwise normal ECG When compared with ECG of 26-SEP-2020 12:24, MANUAL COMPARISON REQUIRED, DATA IS UNCONFIRMED Confirmed by KEIKO SILVA, REHAN ([id number]), newspaper managing editor ODALYS PHILIPPE ([id number]) on 10/01/2020 1:54:22 PM Referred By: MAR Confirmed By:REHAN ADEN MD
[2020-09-26] MEDS: Ondansetron ODT 4 MG Tablet PO ×2 (12:18→21:10)
[2020-09-26 12:40] LABS: Bedside Glucose 339 mg/dL (70-110)
[2020-09-26] MEDS: Nitroglycerin Oint 1 INCH PACKET TD (13:08)
[2020-09-26] MEDS: buPROPion (XL) 150 MG TABLET.XL PO (13:11)
[2020-09-26] MEDS: Pantoprazole Sodium 40 MG Tablet PO (13:11)
[2020-09-26] MEDS: Insulin Lispro 100 UNIT/ML INSULN.PEN SC ×2 (13:12→17:10)
[2020-09-26] MEDS: buPROPion (XL) 300 MG TABLET.XL PO (13:12)
[2020-09-26] MEDS: Insulin Lispro 100 UNIT/ML INSULN.PEN 25 UNIT SC ×2 (13:13→17:11)
[2020-09-26] MEDS: Acetaminophen 325 MG Tablet 650 MG PO ×3 (13:18→22:36)
[2020-09-26] MEDS: TICAGRELOR 90 MG TABLET 180 MG PO (13:18)
--- NOTE | 2020-09-26 14:23 | CRPHASE1 ---
Patient Communication PHII Cardiac Rehab Discussed with Patient:: Yes Guide to Cardiac Rehab Given to Patient:: Yes Cardiac Rehab Facility Choice List Given to Patient:: Yes Choice Program [facility] PHII:: Communication Given to CR, Refer to [facility] Entertainer Or Variety Artist:: Columba Miranda - interventionalist Refer Phase II Cardiac Rehab:: Yes - to occur after discharge Sessions:: 36 sessions - 3 days/wk, 12 weeks Cardiac Rehabilitation Info Cardiac Rehabilitation Program Information: Cardiac Rehabilitation is important for patients like you who are recovering from a heart problem. Cardiac rehabilitation programs are recognized as integral to the continued care of the patient with coronary heart disease. The cardiac rehabilitation program is designed to optimize a patient's physical, psychological, and social functioning. Health career technical education instructor work in cardiac rehabilitation programs and assist you with getting the treatments you need to get stronger and healthier - like exercise, healthy eating habits, and medications. Cardiac rehabilitation has been show to help people with heart problems live longer and have better life enjoyment than people who do not go to cardiac rehabilitation. Please contact the Cardiac Rehabilitation Program at [facility] at in two weeks if you have not heard from them.
--- NOTE | 2020-09-26 14:25 | CRPH1.INSTRU ---
General Education CAD and cardiac anatomy and function:: Patient communicates acknowledgment Explanation of diagnoses and procedures:: Patient communicates acknowledgment Sign/Symptoms of NH:: Patient communicates acknowledgment Antiplatelet therapy: Patient communicates acknowledgment Proper use of NTG-SL: Patient communicates acknowledgment Emergency procedures and activation of EMS: Patient communicates acknowledgment Compliance of all prescribed medications: Patient communicates acknowledgment Smoking Patient Nicotine/Smoking Risk Factors Are:: Cigarettes Recommendations Include:: Smoking cessation strategies/Smoking packet, Participation in a smoking cessation program, Previous smoker; encourage continued cessation Nicotine/Smoking Response Code:: Patient communicates acknowledgment Dyslipidemia Recommendations Include:: Lipid profile provided, Reviewed NCEP/ATP guidelines, Therapeutic Lifestyle Change dietary guidelines Dyslipidemia Response Code:: Patient communicates acknowledgment Overweight/Obesity Patient Overweight/Obesity Risk Factors Are:: Obesity - > or = 30 Recommendations Include:: Weight loss of 5-10%, Reduced calorie diet, Exercise 5-7 times/week Overweight/Obesity:: Patient communicates acknowledgment Hypertension Recommendations Include:: Maintain BP <130/85, BP <130/80 if diabetic, DASH dietary guidelines, Decrease/maintain normal body weight, Moderation of ETOH Hypertension:: Patient communicates acknowledgment Heart Disease Patient Heart Disease Risk Factors Are:: Previous cardiac event Recommendations Include:: Educated family members of their risk, Educated family members of importance of prevention of heart disease Heart Disease Response Code:: Patient communicates acknowledgment Diabetes Recommendations Include:: Maintain fasting blood sugars 70-110 md/dL, Maintain HgbA1c of 6% or less, Monitor blood sugar as prescribed, Diabetic dietary guidelines, Decrease/maintain body weight Diabetes:: Patient communicates acknowledgment Metabolic Syndrome Patient Metabolic Syndrome Risk Factors Are [3 of 5]:: Fasting blood sugar > 100 mg/dL, Waist circumference > 35 [female] or 40 [male], Hypertension Recommendations Include:: Reinforce compliance to risk factor modifications, Patient is diabetic, Encouraged follow-up with Primary Care Physician Metabolic Syndrome Response Code:: Patient communicates acknowledgment Sedentary Patient Sedentary Risk Factors Are:: Lack of regular exercise Recommendations Include:: Aerobic exercise 5-7 times/week for 20-30 minutes continuously, Benefits of regular exercise, Discussed home walking program, Monitored Outpatient Cardiac Rehab Sedentary Response Code:: Patient communicates acknowledgment
--- NOTE | 2020-09-26 15:29 | CASEMGMT ---
RN MAYRA NOTE: Intro role of CM to patient and ALFARO form explained re: Observation status for treatment of chest pain. Explained hospitalization will be paid per insurance policy for Outpatient billing and condition will continue to be evaluated for Inpt necessity. Also let pt know that [facility] sends paper in the billing packet with their phone number if questions arise. Discussed Pharmacy section of ALFARO form and self administered medication guideline. Pt verbalizes understanding and does not have further questions. Form signed, copy made and placed in chart, and original given to pt. Ken OGDEN RN CM
[2020-09-26] MEDS: Ipratropium/Albuterol Sulfate 3 ML AMPUL.NEB INHALATION (16:04)
[2020-09-26 16:50] LABS: Bedside Glucose 271 mg/dL (70-110)
[2020-09-26] MEDS: Insulin NPH Human 100 UNITS/ML PEN 35 UNITS SC (17:12)
--- NOTE | 2020-09-26 18:44 | PN_ITS ---
Subjective: Patient was seen and examined earlier today, her cardiac enzymes did not elevate after admission, she underwent a cardiac catheterization today and appears to have had her right coronary artery stented due to in-stent restenosis. Patient is requesting her antidepressant tonight, we do not stock it here at the hospital but it is similar to Effexor which I have written for her to have tonight. - Physical Exam Vitals/I&O's: Vital Signs Temp Pulse Resp BP Pulse Ox 98.3 F 129 H 16 146/93 H 94 09/26/20 17:25 09/26/20 17:25 09/26/20 17:25 09/26/20 17:25 09/26/20 17:25 Oxygen Delivery Method Room Air Weight: 141 kg Body Mass Index (BMI) 50.1 Finger Stick Blood Glucose 328 Intake and Output for Last 24 Hours 09/24/20 09/25/20 09/26/20 23:59 23:59 23:59 Intake Total 2144 / 2144 1150 / 1150 Balance 2144 / 2144 1150 / 1150 General: Alert, Oriented x3, Cooperative, No apparent distress, Well developed HEENT: Atraumatic, PERRLA, EOMI, Normocephalic Oral: Moist Mucosa Neck: Supple, No JVD, Trachea Midline, Thyroid Normal Size and Texture Lungs: Clear to auscultation, Normal air movement, No rhonchi, No wheeze, No rales Cardiovascular: Regular rate, Regular Rhythm, Normal S1, Normal S2, No murmurs Abdomen: Bowel Sounds Present, Soft, Non Tender, Non-Distended, Obese Extremities: No clubbing, No cyanosis, No edema, Capillary Refill Less than 3 Seconds Skin: No rashes, No breakdown Musculoskeletal: No Tenderness to Palpation of Joints or Extremities Neurological: Cranial nerves II-XII grossly intact, Neuro grossly intact, Sensory exam intact to light touch and pain, Coordination normal Psych/Mental Status: Normal Affect, Appropriate, Alert and oriented to time, place, person, mood and affect Laboratory Results 09/25/20 17:32: Troponin I < 0.015 09/25/20 21:24: POC Glucose 266 H 09/26/20 05:45: Sodium 133 L, Potassium 3.9, Chloride 101, Carbon Dioxide 26.0, Anion Gap 6, BUN 14, Creatinine 0.47 L, Estim Creat Clear Calc 140.01, Est GFR (MDRD) Af Amer 183, Est GFR (MDRD) Non-Af 151, BUN/Creatinine Ratio 29.9 H, Glucose 263 H, Calcium 8.5, Phosphorus 3.8, Magnesium 1.8, Triglycerides 142, Cholesterol 156, LDL Cholesterol 75, VLDL Cholesterol 28, HDL Cholesterol 53, TSH 19.40 H, Free T4 1.07 09/26/20 05:45: Hemoglobin A1c 8.9 H 09/26/20 06:18: POC Glucose 293 H 09/26/20 08:10: Serum , Qual NEGATIVE 09/26/20 12:15: POC Glucose 339 H 09/26/20 16:41: POC Glucose 271 H Current Medications Acetaminophen (Acetaminophen 325 Mg Tablet) 650 mg PO Q6H PRN PRN PRN Reason: Pain Score 1-10/Temp > 100.7 F Last Admin: 09/26/20 13:18 Dose: 650 mg Documented by: Al Hydroxide/Mg Hydroxide (Mag Hydrox/Al Hydrox/Simeth 30 Ml Udc) 30 ml PO Q6H PRN PRN PRN Reason: Gastric Burning Albuterol Sulfate (Albuterol 2.5 Mg/3 Ml Vial.Neb.) 2.5 mg INHALATION Q6HWA.RT [facility] Last Admin: 09/26/20 06:56 Dose: 2.5 mg Documented by: Alprazolam (Alprazolam 0.5 Mg Tablet) 1 mg PO QHS PRN PRN Reason: ANXIETY Last Admin: 09/25/20 23:28 Dose: 1 mg Documented by: Aspirin (Aspirin E.C. 81 Mg Tablet) 81 mg PO DAILY@0800 [facility] Last Admin: 09/26/20 06:25 Dose: 81 mg Documented by: Atorvastatin Calcium (Atorvastatin Calcium 80 Mg Tablet) 80 mg PO QHS [facility] Last Admin: 09/25/20 21:27 Dose: 80 mg Documented by: Atropine Sulfate (Atropine Sulfate 1 Mg/10 Ml Syringe) 0.5 mg IV UD PRN PRN Reason: HR <50 bpm Budesonide (Budesonide Respules 0.5 Mg/2 Ml Ampul.Neb.) 0.5 mg INHALATION BID.RT [facility] Last Admin: 09/26/20 06:54 Dose: 0.5 mg Documented by: Bupropion HCl (Bupropion (Xl) 150 Mg Tablet.Xl) 150 mg PO DAILY [facility] Last Admin: 09/26/20 13:11 Dose: 150 mg Documented by: Bupropion HCl (Bupropion (Xl) 300 Mg Tablet.Xl) 300 mg PO DAILY [facility] Last Admin: 09/26/20 13:12 Dose: 300 mg Documented by: Carvedilol (Carvedilol 25 Mg Tablet) 25 mg PO BID [facility] Last Admin: 09/26/20 06:25 Dose: 25 mg Documented by: Cyclobenzaprine HCl (Cyclobenzaprine Hcl 5 Mg Tablet) 5 mg PO TID PRN PRN PRN Reason: MUSCLE SPASM Dextrose (Dextrose 50%-Water 25 Gm/50 Ml Disp.Syrin) 0 gm IV X1 PRN; Protocol PRN Reason: Hypoglycemia Enoxaparin Sodium (Enoxaparin 30 Mg/0.3 Ml Syringe) 30 mg SC BID [facility] Last Admin: 09/26/20 10:39 Dose: Not Given Documented by: Glucagon (Glucagon 1 Mg/Ml Syringe) 1 mg IM .X1 PRN PRN Reason: Hypoglycemia Heparin Sodium (Beef Lung) (Heparin Lock 500 Unit/5 Ml In 10 Ml Syringe) 500 unit IV UD PRN PRN Reason: HEPARIN FLUSH Hydralazine HCl (Hydralazine 20 Mg/Ml Vial) 10 mg IV Q4H PRN PRN PRN Reason: SBP more than 180 mmHg Hydralazine HCl (Hydralazine 50 Mg Tablet) 50 mg PO BID [facility] Last Admin: 09/26/20 06:25 Dose: 50 mg Documented by: Sodium Chloride () 1,000 mls @ 0 mls/hr IV .Q0M [facility] Sodium Chloride () 1,000 mls @ 80 mls/hr IV .[id number] [facility] Last Infusion: 09/26/20 16:10 Dose: 0 mls/hr Documented by: Insulin Human Lispro (Insulin Lispro 100 Unit/Ml Insuln.Pen) 0 unit SC ACHS [facility]; Protocol Last Admin: 09/26/20 17:10 Dose: 6 units Documented by: Insulin Human Lispro (Insulin Lispro 100 Unit/Ml Insuln.Pen) 25 unit SC TIDAC [facility] Last Admin: 09/26/20 17:11 Dose: 25 units Documented by: Insulin Human NPH (Insulin Nph Human 100 Units/Ml Pen) 35 units SC BIDAC [facility] Last Admin: 09/26/20 17:12 Dose: 35 units Documented by: Isosorbide Mononitrate (Isosorbide Mononitrate 60 Mg Tablet) 60 mg PO DAILY [facility] Last Admin: 09/26/20 06:25 Dose: 60 mg Documented by: Labetalol HCl (Labetalol (Prefilled) 20 Mg/4 Ml) 5 mg IV X1 PRN PRN Reason: SBP >160 when pulling sheath Stop: 09/28/20 11:54 Levothyroxine Sodium (Levothyroxine 25 Mcg Tablet) 25 mcg PO DAILY@0600 [facility] Last Admin: 09/26/20 06:25 Dose: 25 mcg Documented by: Levothyroxine Sodium (Levothyroxine 100 Mcg Tablet) 200 mcg PO DAILY@0600 [facility] Last Admin: 09/26/20 06:25 Dose: 200 mcg Documented by: Lisinopril (Lisinopril 40 Mg Tablet) 40 mg PO DAILY [facility] Morphine Sulfate (Morphine 4 Mg/Ml Syringe) 4 mg IV Q3H PRN PRN PRN Reason: Pain Score 6-10 Last Admin: 09/26/20 16:03 Dose: 4 mg Documented by: Nicotine (Nicotine 21 Mg Patch) 21 mg TD DAILY [facility] Last Admin: 09/26/20 13:10 Dose: Not Given Documented by: Nitroglycerin (Nitroglycerin Oint 1 Inch Packet) 1 inch TD Q6H PRN PRN PRN Reason: chest pressure Last Admin: 09/26/20 13:08 Dose: 1 inch Documented by: Ondansetron HCl (Ondansetron Odt 4 Mg Tablet) 4 mg PO Q8H PRN PRN PRN Reason: NAUSEA Last Admin: 09/26/20 12:18 Dose: 4 mg Documented by: Oxycodone HCl (Oxycodone 5 Mg Tablet) 5 mg PO Q4H PRN PRN PRN Reason: Pain Score 4-5 Pantoprazole Sodium (Pantoprazole Sodium 40 Mg Tablet) 40 mg PO DAILY [facility] Last Admin: 09/26/20 13:11 Dose: 40 mg Documented by: Senna/Docusate Sodium (Senna/Docusate Sodium 1 Tablet) 2 tablet PO BID PRN PRN PRN Reason: Constipation Sodium Chloride (0.9% Saline Lock 10 Ml Syringe) 10 - 40 ml IV UD PRN PRN Reason: SALINE FLUSH Last Admin: 09/26/20 16:03 Dose: 10 ml Documented by: Sodium Chloride (0.9% Normal Saline 500 Ml Iv.Soln.) 500 ml IV BOLUS PRN PRN Reason: VASO-VAGAL PROTOCOL Ticagrelor (Ticagrelor 90 Mg Tablet) 90 mg PO BID LUIS Trazodone HCl (Trazodone 50 Mg Tablet) 50 mg PO QHS PRN PRN PRN Reason: SLEEP Last Admin: 09/25/20 21:27 Dose: 50 mg Documented by: Medical Necessity - Tobacco Use Smoking Status: Current every day smoker Tobacco Use: Cigarettes Assessment/Plan All Active Problems (Last Reviewed 03/27/20 @ 16:[address] Columba Miranda MD) History of coronary artery stent placement (Resolved 05/06/19) Chest pain (Resolved) Exertional chest pain (Resolved) #1 occlusive coronary artery disease right coronary artery-insertion of RAYMUNDO today, patient will remain on present medications per cardiology, she was switched from Plavix to Brilinta #2 uncontrolled type 2 diabetes-blood sugars will be monitored #3 noncompliance with medical regimen-patient is still smoking, I will discuss this with her tomorrow #4 morbid obesity #5 hypothyroidism-patient's TSH is elevated although her T4 is normal, I will not adjust the patient's home thyroid medications at this time #6 hyperlipidemia #7 chronic depression/anxiety #8 chronic obstructive pulmonary disease #9 essential hypertension OBSV E&M: 89735 Subsequent observation care L3
[2020-09-26] MEDS: Venlafaxine XR 150 MG Capsule PO (18:47)
[2020-09-26] MEDS: Atorvastatin Calcium 80 MG Tablet PO (21:17)
[2020-09-26] MEDS: Enoxaparin 30 MG/0.3 ML Syringe SC (21:18)
[2020-09-26] MEDS: TICAGRELOR 90 MG TABLET PO (21:18)
[2020-09-26 22:36] LABS: Bedside Glucose 90 mg/dL (70-110)
[2020-09-26] MEDS: Ondansetron 4 MG/2 ML Vial IV (22:36)
[2020-09-27] VITALS (7 sets, daily range): BP systolic 127–163; BP diastolic 75–94; PULSE 95–109; RESP 12–18; TEMP 36.6–36.9; O2SAT 96–98
[2020-09-27] MEDS: Morphine 4 MG/ML Syringe IV (04:16)
[2020-09-27 05:31] LABS: Hematocrit 40.9 % (37-47); Hemoglobin 14.3 g/dL (12.0-15.0); Mean Corpuscular Hgb 32.9 pg (27.0-32.0); Mean Platelet Vol. 10.2 fl (6.2-12.0); Platelet Count 246 K/mm3 (150-450); RBC Distribution Width CV 12.8 % (11.6-14.6); RBC Distribution Width SD 43.7 fl (35.1-43.9); Red Blood Count 4.35 M/mm3 (4.2-5.4); White Blood Count 7.5 K/mm3 (4.4-11.0)
[2020-09-27 05:49] LABS: ALB/GLOB Ratio 0.7 RATIO (0.9-2.4); AST(SGOT) 641 U/L (15-37); Alanine Aminotransfer ALT/SGPT 391 U/L (13-56); Albumin, Serum 2.9 g/dL (3.2-5.0); Alkaline Phosphatase 295 U/L (45-117); Anion Gap 7 (5-15); BUN 8 mg/dL (7-18); BUN/Creat Ratio 21.9 RATIO (10-20); Calcium,Total 8.2 mg/dL (8.5-10.1); Chloride 106 mmol/L (98-107); Creatinine, Serum 0.36 mg/dL (0.55-1.02); EST Glomerular Filtration Rate 202 mL/min (>60); Est Glom Filt Rate - Afr Amer 245 mL/min (>60); Globulin 3.9 g/dL (2.2-4.2); Glucose 139 mg/dL (74-106); Potassium 3.5 mmol/L (3.5-5.1); Protein, Total 6.8 g/dL (6.4-8.2); Sodium Level 138 mmol/L (136-145)
[2020-09-27] MEDS: Levothyroxine 25 MCG TABLET PO (05:59)
[2020-09-27] MEDS: Levothyroxine 100 MCG Tablet 200 MCG PO (05:59)
[2020-09-27 06:05] LABS: Bedside Glucose 170 mg/dL (70-110)
[2020-09-27] MEDS: Budesonide Respules 0.5 MG/2 ML AMPUL.NEB. INHALATION (07:17)
[2020-09-27] MEDS: 0.9% Saline Lock 10 ML Syringe IV (07:36)
[2020-09-27] MEDS: Ondansetron 4 MG/2 ML Vial IV (07:36)
[2020-09-27] MEDS: Insulin Lispro 100 UNIT/ML INSULN.PEN SC ×2 (07:36→11:29)
[2020-09-27 07:46] LABS: Bedside Glucose 189 mg/dL (70-110)
--- NOTE | 2020-09-27 10:00 | EKG12_ITS ---
Test Reason : POST PCI Blood Pressure : / mmHG Vent. Rate : 102 BPM Atrial Rate : 102 BPM P-R Int : 162 ms QRS Dur : 076 ms QT Int : 344 ms P-R-T Axes : 033 001 022 degrees QTc Int : 448 ms Sinus tachycardia Septal infarct , age undetermined Abnormal ECG When compared with ECG of 25-SEP-2020 15:11, MANUAL COMPARISON REQUIRED, DATA IS UNCONFIRMED Confirmed by KEIKO SILVA, REHAN ([id number]), state editor ODALYS PHILIPPE ([id number]) on 10/01/2020 1:55:29 PM Referred By: FATOU Confirmed By:REHAN ADEN MD
[2020-09-27] MEDS: buPROPion (XL) 300 MG TABLET.XL PO (10:06)
[2020-09-27] MEDS: hydrALAZINE 50 MG Tablet PO (10:06)
[2020-09-27] MEDS: Aspirin E.C. 81 MG Tablet PO (10:06)
[2020-09-27] MEDS: Enoxaparin 30 MG/0.3 ML Syringe SC (10:06)
[2020-09-27] MEDS: Pantoprazole Sodium 40 MG Tablet PO (10:06)
[2020-09-27] MEDS: Carvedilol 25 MG Tablet PO (10:06)
[2020-09-27] MEDS: TICAGRELOR 90 MG TABLET PO (10:06)
[2020-09-27] MEDS: buPROPion (XL) 150 MG TABLET.XL PO (10:06)
[2020-09-27] MEDS: Isosorbide Mononitrate 60 MG Tablet PO (10:07)
[2020-09-27] MEDS: oxyCODONE 5 MG Tablet PO (10:13)
[2020-09-27] MEDS: Insulin Lispro 100 UNIT/ML INSULN.PEN 25 UNIT SC (10:13)
[2020-09-27] MEDS: Insulin NPH Human 100 UNITS/ML PEN 35 UNITS SC (10:14)
--- NOTE | 2020-09-27 10:19 | CL.I_ITS ---
Patient Name: ADELFO BACK Study Date: 09/26/2020 Performing: Jose F Miranda MD Ht: 66.14 inches 168 cm : 1975 Wt: 310.85 lbs 141 kg Age: 44 Gender: female BSA: 2.42 PROCEDURE(S) PERFORMED [id number]/COR/LV CI95-WAG W OR WO PTCA, SINGLE CORONARY ARTERY CLINICAL PROFILE AND CO-MORBIDITIES Indications: Worsening Angina Heart Failure: None Stress/Imaging Stress/Image Study Performed: No CAD Presentations: Unstable angina. CONCLUSIONS CAD as described. Preserved EF. No significant or MR. Successful PCI of distal RCA with RAYMUNDO and Cu tting balloon angioplasty to instent restenosis in proximal RCA RECOMMENDATIONS DESCRIPTION OF PROCEDURE The patient arrived to the procedure lab. The risks and benefits of the procedure as well as a full d escription of our services here and lack of surgical backup were fully explained to the patient and/o r their significant other prior to the catheterization. The Timeout was completed, verifying the lynn ect patient and procedure. The patient's procedural site was prepped and draped in the usual fashion. Local anesthetic was given subcutaneously to right radial region with Lidocaine 2%. Using a modified Seldinger technique, arterial access was obtained via the right radial artery, a 6Fr sheath was inse rted.. Left Coronary Artery selective angiography was performed in multiple views using a 5 Fr. JL3. 5 catheter. Left Ventriculography was performed in GUTIÉRREZ projection using a 5 Fr JR 4.0.. LV to AO pull back pressures were then recorded. Right Coronary Artery selective angiography was then performed in multiple views using a 5 Fr. JR 4 catheterThe images were reviewed and options discussed. A decision was then made to proceed with an Intervention, IVUS or other adjunct procedure. JR 4.0 Guide catheter was inserted and engaged into the RCA. bmw Guide wire was advanced to the R CA. 2.0x12 emerge Balloon catheter was inserted. Balloon catheter was advanced across lesion in the r ight coronary, distal. PTCA balloon inflated at 10 atms for 20 secs. PTCA balloon inflated at 12 atms for 13 secs. Angiogram performed post balloon dilatation. 2.5x20 synergy Drug Eluting stent was inse rted. Drug Eluting stent was removed intact, failed to cross lesion 2.25x15 nc emerge Balloon cathete r was inserted. Balloon catheter was advanced across lesion in the right coronary, distal. PTCA ballo on inflated at 18 atms for 28 secs. PTCA balloon inflated at 18 atms for 12 secs. PTCA balloon inflat ed at 12 atms for 20 secs. Balloon catheter was repositioned to additional lesion in the right flowers ry, proximal. PTCA balloon inflated at 20 atms for 14 secs. 2.5x20 synergy Drug Eluting stent was ins erted. Drug Eluting stent was removed intact, failed to cross lesion 2.25x12 emerge Balloon catheter was inserted. Balloon catheter was advanced across lesion in the right coronary, dis lydia. PTCA balloon inflated at 12 atms for 12 secs. PTCA balloon inflated at 12 atms for 5 secs. PTCA balloon inflated at 12 atms for 7 secs. PTCA balloon inflated at 12 atms for 7 secs. PTCA balloon inf lated at 12 atms for 7 secs. 2.5x20 synergy Drug Eluting stent was inserted. Drug Eluting stent was a dvanced across the lesion in the right coronary, distal. Angiogram performed post stent deployment. 2 .5x12 nc emerge Balloon catheter was inserted. Balloon catheter was inserted post stent. Angiogram pe rformed post stent deployment. 3.0x10 wolverine cutting Balloon catheter was inserted. 3.0x10 wolveri ne cutting Balloon catheter was inserted. Balloon catheter was advanced across lesion in the right co ronary, proximal. Angiogram performed post balloon dilatation. The arterial sheath was pulled and a TR Band was applied for hemostasis 16cc air CORONARY ANGIOGRAPHY DOMINANCE: Right Dominant LEFT HEART ASSESSMENT Left Ventricular Ejection Fraction: by LV Gram 55 % Normal LV wall motion LEFT MAIN: Mild luminal irregularities LEFT ANTERIOR DESCENDING ARTERY: OSTIAL LAD: 30 % Stenosis CIRCUMFLEX ARTERY: Mild luminal irregularities OM 1: Proximal - 25 % Stenosis RIGHT CORONARY ARTERY: PROX RCA: 70 % instent restenosis DISTAL RCA: 80 % Stenosis RT PDA: Mid 70-80 % Stenosis. The size of the vessel and location of the stenosis make it suboptimal for PCI. Recommend medical treatment for this lesion. VALVE FINDINGS: No Aortic Valve Stenosis No Mitral Insufficency INTERVENTION INFORMATION LESION SITE: RCA (Distal) Lesion Complexity: High/C, chronic total occlusion: No, lesion at bifurcation: No, thrombus present: No, lesion length: 20 mm, culprit lesion: Yes, Previously treated lesion: No, In-stent restenosis: No Pre Stenosis: 80 % Pre intervention LIAT flow: 3 PROCEDURE: Drug Eluting Stent with pre and post dilatation Post Stenosis: 0 % Post intervention LIAT flow: 3 Lesion Devices: Ferguson .014 BMW [place] Straight 190cm Medtronic 6 Fr JR4.0 100cm Guide Catheter Yousuf Sci EMERGE MR 2.00x12 BALLOON [employer] 6 [place] GuideLiner Yousuf Sci Synergy MR RAYMUNDO 2.50x20 Yousuf Sci NC EMERGE MR 2.25x15 BALLOON Yousuf Sci EMERGE MR 2.25x12 BALLOON Yousuf Sci NC EMERGE MR 2.50x12 BALLOON LESION SITE: RCA (Proximal) Lesion Complexity: High/C, chronic total occlusion: No, lesion at bifurcation: No, thrombus present: No, lesion length: 11 mm, culprit lesion: Yes, Previously treated lesion: Yes, In-stent restenosis: Y es, Timeframe of previous treatment: Time unknown, Previously treated with a stent: Yes Stent Type: w ith stent type unknown, In-stent Thrombosis: No Pre intervention LIAT flow: 3 PROCEDURE: Cutting Balloon Angioplasty Post intervention LIAT flow: 3 Lesion Devices: Ferguson .014 BMW [place] Straight 190cm Medtronic 6 Fr JR4.0 100cm Guide Catheter [employer] 6 [place] GuideLiner Yousuf Sci NC EMERGE MR 2.25x15 BALLOON Yousuf Sci [place] cutting balloon 3.0x10 COMPLICATIONS No Complications PROCEDURE MEDICATIONS Fentanyl 50 mcg IV Versed 1 mg IV Fentanyl 25 mcg IV Versed 1 mg IV Oxygen: 2 L/min via nasal cannula Heparin given IA 09/26/2020 10:36:01 Heparin 8000 unit(s) IV 09/26/2020 10:51:28 Verapamil 2.5mg, Ntg 100mcgs, 3000 units of Heparin given IA 09/26/2020 10:36:01 SUMMARY OF HEMODYNAMIC DATA Time AIR REST ECG 09:54:57 AO 132/89 (108) SA 10:38:46 LV 156/-11, 8 10:45:29 LV 152/-10, 10 10:45:35 LV 139/-1, 15 10:46:32 LVp 145/1, 17 10:46:45 AOp 150/84 (112) 10:46:50 Signed By Jose F Miranda MD On 09/28/2020 3:32:40 PM Jose F Miranda MD
[2020-09-27 10:21] LABS: Bedside Glucose 205 mg/dL (70-110)
--- NOTE | 2020-09-27 10:25 | PN.CARD_ITS ---
Subjectve: Patient seen and evaluated. Appears to be nauseated. Underwent coronary intervention yesterday Objective: Vital Signs Temp Pulse Resp BP Pulse Ox 98.5 F 95 16 163/94 H 98 09/27/20 09:15 09/27/20 10:06 09/27/20 09:15 09/27/20 10:06 09/27/20 09:15 Oxygen Delivery Method Room Air Weight: 310 lb 13.628 oz Body Mass Index (BMI) 50.1 Finger Stick Blood Glucose 328 Intake and Output for Last 24 Hours 09/25/20 09/26/20 09/27/20 23:59 23:59 23:59 Intake Total 2144 / 2144 1150 / 1150 Balance 2144 / 2144 1150 / 1150 09/27/20 05:24: WBC 7.5, RBC 4.35, Hgb 14.3, Hct 40.9, MCV 94.0, MCH 32.9 H, MCHC 35.0, Plt Count 246, MPV 10.2 09/27/20 05:24: Sodium 138, Potassium 3.5, Chloride 106, Carbon Dioxide 25.0, Anion Gap 7, BUN 8, Creatinine 0.36 L, Est GFR (MDRD) Af Amer 245, Est GFR (MDRD) Non-Af 202, BUN/Creatinine Ratio 21.9 H, Glucose 139 H, Calcium 8.2 L, Total Bilirubin 1.20 H Rhythm: EKG: ECHO: Stress Test: Cardiac Cath: PCI: CT Surgery: Holter monitor: EPS: PPM: CXR: Chest CT Scan: Medical Necessity - Tobacco Use Smoking Status: Current every day smoker Tobacco Use: Cigarettes Assessment/Plan Chest pain in a patient with CAD: * Status post PCI x5, most recently in October 2019 which demonstrated normal left main coronary artery, Ramus intermedius with mild disease Left anterior descending artery previously stented which was patent with no high-grade stenosis Left circumflex artery with no significant disease Right coronary artery previously stented with moderate to severe in-stent stenosis for which she underwent angioplasty and restenting. She appears to be doing well this morning from the coronary standpoint. She can be discharged for outpatient follow-up. 2 Diabetes mellitus type II: Will continue home insulin regimen, ADA diet until NPO, accu checks w/ ISS. 3. Morbid Obesity: Weight loss and lifestyle changes encouraged. 4. Hypertension: Continue home regimen including Coreg, lisinopril, will add isosorbide 60 mg a day. 5. Hyperlipidemia: Continue home statin regimen. AM FLP. Thank you for allowing me to participate in the care of your patient. Please don't hesitate to call if any issues arise.
[2020-09-27 11:35] LABS: Bedside Glucose 226 mg/dL (70-110)
--- NOTE | 2020-09-27 12:42 | DCINST_ITS ---
- Discharge Diagnoses Current Active Problems: Current Active and Chronic Problems (Last Reviewed 03/27/20 @ 16:[address] Columba Miranda MD) Diabetes mellitus type 2 in obese (Chronic) Morbid obesity with BMI of 50.0-59.9, adult (Chronic) Hypothyroidism (Chronic) Atherosclerotic heart disease of [place] coronary artery without angina pectoris (Chronic) Non obstructive coronary arteries; Widely patent recently placed DIAG and distal RCA stents. Non obstructive mid LAD just distal to DIAG branch as well as distal RCA. Pt's symptoms are atypical for angina and degree of chest pain is out of proportion to CAD found per cath 08/19/[address] Huerta Essential hypertension (Chronic) Hypercholesterolemia (Chronic) You will use the following diet at home:: Calorie/Carbohydrate Controlled (specify 1200, 1400, etc) - 1800 dee Your food should be the consistency of: Regular Your liquids should be the consistency of: Regular/Thin Discharge Activity: Return to Normal Activity Weight Bearing Status: Full weight bearing Allergies/Adverse Reactions: Allergies metformin [From Glucophage] Adverse Reaction (Intermediate, Verified 09/25/20 10:39) Diarrhea hydromorphone [From Dilaudid] Adverse Reaction (Verified 09/25/20 15:24) Itching morphine Adverse Reaction (Verified 09/25/20 15:24) Itching Medications to take at Discharge Aspirin [Aspirin, Baby] 81 mg PO DAILY@0800 06/11/15 Albuterol Inhaler [Ventolin Hfa] 1 - 2 puff INHALATION Q4H PRN PRN #1 inhaler 10/15/15 Pantoprazole Sodium [Protonix] 40 mg PO DAILY 09/23/16 Ondansetron [Zofran Odt] 4 mg PO Q8H PRN PRN #10 tab 03/07/18 ALPRAZolam [Xanax] 1 mg PO QHS PRN 08/18/18 Atorvastatin Calcium [Lipitor] 80 mg PO QHS #60 tab 08/20/18 Carvedilol [Coreg (Beta Monisha)] 25 mg PO BID 05/04/19 Budesonide/Formoterol 160/4.5 [Symbicort 160/4.5 Mcg Inhaler (SP)] 2 puff PO BID 05/07/19 Insulin Regular, Human [Novolin R] 26 units SUBCUT TIDCM 05/07/19 Insulin NPH Human [Humulin N Pen] 32 units SUBCUT BIDAC 07/19/19 cycloBENZAPRine HCl [Flexeril] 5 mg PO TID PRN PRN 07/19/19 traZODone [Desyrel] 50 mg PO QHS PRN PRN 07/19/19 Lisinopril [Zestril] 40 mg PO DAILY #0 07/20/19 Dulaglutide [Trulicity] 1.5 mg SQ TH 10/16/19 Isosorbide Mononitrate [Imdur] 60 mg PO DAILY #30 tab 10/18/19 levothyroxine 200 mcg tablet 200 mcg PO DAILY tab 11/07/19 levothyroxine 25 mcg tablet 25 mcg PO DAILY 11/07/19 Bupropion HCl [Bupropion Xl] 150 mg PO DAILY 09/25/20 Bupropion HCl [Bupropion Xl] 300 mg PO DAILY 09/25/20 Desvenlafaxine Succinate [Pristiq] 50 mg PO DAILY 09/25/20 Aspirin E.C. [Ecotrin] 81 mg PO DAILY@0800 tablet 09/27/20 Ticagrelor [Brilinta] 90 mg PO BID #60 tablet 09/27/20 hydrALAZINE [Apresoline] 50 mg PO BID #60 tablet 09/27/20 The following prescriptions were given: hydrALAZINE [Apresoline] 50 mg PO BID #60 tablet Transmission Status: Pending to Dr Lal [facility] #30 Ticagrelor [Brilinta] 90 mg PO BID #60 tablet Transmission Status: Pending to [facility] #30 Primary Care Physician: Carlotta Galindo MD [Primary Care Provider] - Please follow up with your Primary Care Physician in: in one week for check on blood pressure and visit Test Results: Test results from this visit will be discussed in further detail at your follow- up appointment, if applicable. Please Follow Up With: Wale Busby MD When: in 2-3 weeks or as directed
[2020-09-27] MEDS: Acetaminophen 325 MG Tablet 650 MG PO (13:08)
--- NOTE | 2020-09-27 13:27 | CASEMGMT ---
Pt to be sent home on Brilinta and med [facility]. Call to Antony, pharmacist, at [facility] and he states pt's co-pay is $4. Kate GRIJALVA updated and into room to discharge pt. Vicki GRIJALVA CM
--- NOTE | 2020-09-28 15:44 | DS.PCM_ITS ---
Discharge Date and Diagnosis Date of Admission: 09/25/20 Date of Discharge: 09/28/20 - Primary Discharge Diagnosis Acute Problems: #1 unstable angina #2 occlusive coronary artery disease right coronary artery #3 uncontrolled type 2 diabetes #4 noncompliance with medical regimen #5 morbid obesity #6 hypothyroidism #7 hyperlipidemia #8 chronic depression/anxiety #9 chronic obstructive pulmonary disease #10 essential hypertension #11 elevated liver enzymes-etiology unclear #12 hypomagnesemia - Secondary Discharge Diagnosis Chronic Problems: Chronic Problems (Last Reviewed 03/27/20 @ 16:[address] Columba Miranda MD) Diabetes mellitus type 2 in obese (Chronic) Morbid obesity with BMI of 50.0-59.9, adult (Chronic) Hypothyroidism (Chronic) Atherosclerotic heart disease of [place] coronary artery without angina pectoris (Chronic) Non obstructive coronary arteries; Widely patent recently placed DIAG and distal RCA stents. Non obstructive mid LAD just distal to DIAG branch as well as distal RCA. Pt's symptoms are atypical for angina and degree of chest pain is out of proportion to CAD found per cath 08/19/[address] Huerta Essential hypertension (Chronic) Hypercholesterolemia (Chronic) Hospital Course and Treatment Operations: None Procedures: Cardiac catheterization - With insertion of drug-eluting stent and angioplasty right coronary artery Summary of Care Provided: The patient is a 44 year old F was seen in the emergency room at [facility] with chief complaint of precordial chest pain. Patient had a past history of coronary artery disease and had a stent placed in July 2020. Work-up in the emergency room included an EKG which showed nonspecific ST-T wave changes, chest x-ray was normal, cardiac enzymes were performed x2 in the emergency room these remain normal, labs revealed elevation of the patient's liver enzymes. Patient was placed into observation status on PCU, she was seen in consultation by cardiology and follow-up cardiac enzymes remain normal. Patient's hemoglobin A1c was elevated indicating poor control of her diabetes as an outpatient. Patient underwent cardiac catheterization and was found to have in-stent stenosis in the right coronary artery. Patient had an angioplasty performed along with insertion of a RAYMUNDO in the right coronary artery. There were no untoward events. On 09/27/2020, patient was seen and examined: On examination she appeared in good health and spirits, she does not appear to be in any distress. Vital signs as documented. Skin warm and dry and without overt rashes. Neck without JVD, thyroid appears normal, trachea is midline, neck is supple. Lungs clear, normal air movement was noted. Heart exam notable for regular rhythm, normal sounds and absence of murmurs, rubs or gallops. Abdomen unremarkable and without evidence of organomegaly, masses, or abdominal aortic enlargement, bowel sounds are present in all 4 quadrants, no abdominal tenderness was noted. Extremities nonedematous, no cyanosis was noted, no clubbing was noted. Patient was morbidly obese. Neuro: Cranial nerves II through XII are grossly intact, no f ocal motor deficits were noted, sensation to light touch and pinprick is intact, motor exam 5/5 throughout. Psych: Patient is alert and oriented x3, she does not appear anxious or depressed, she does not appear agitated. I talked with the patient about her type 2 diabetes which is under poor control, she admitted that she was noncompliant with her diet, I also talked with her about smoking which she is still doing. She is aware that it is hazardous due to her heart disease. Patient was felt to be stable for discharge on 09/27/2020, I contacted her physician's office to have them contact the patient to have her liver enzymes repeated as an outpatient due to elevation while in the hospital- this elevation may be due to fatty liver disease. - Physical Exam Vitals/I&O's: Vital Signs Temp Pulse Resp BP Pulse Ox 97.8 F 95 18 127/75 H 98 09/27/20 13:05 09/27/20 13:05 09/27/20 13:05 09/27/20 13:05 09/27/20 13:05 Oxygen Delivery Method Room Air Weight: 141 kg Body Mass Index (BMI) 50.1 Finger Stick Blood Glucose 328 Intake and Output for Last 24 Hours 09/26/20 09/27/20 09/28/20 23:59 23:59 23:59 Intake Total 1150 / 1150 420 / 420 Balance 1150 / 1150 420 / 420 Discharge Activity: Return to Normal Activity Weight Bearing Status: Full weight bearing Home Medications: Medications to take at Discharge Aspirin [Aspirin, Baby] 81 mg PO DAILY@0800 06/11/15 Albuterol Inhaler [Ventolin Hfa] 1 - 2 puff INHALATION Q4H PRN PRN #1 inhaler 10/15/15 Pantoprazole Sodium [Protonix] 40 mg PO DAILY 09/23/16 Ondansetron [Zofran Odt] 4 mg PO Q8H PRN PRN #10 tab 03/07/18 ALPRAZolam [Xanax] 1 mg PO QHS PRN 08/18/18 Atorvastatin Calcium [Lipitor] 80 mg PO QHS #60 tab 08/20/18 Carvedilol [Coreg (Beta Monisha)] 25 mg PO BID 05/04/19 Budesonide/Formoterol 160/4.5 [Symbicort 160/4.5 Mcg Inhaler (SP)] 2 puff PO BID 05/07/19 Insulin Regular, Human [Novolin R] 26 units SUBCUT TIDCM 05/07/19 Insulin NPH Human [Humulin N Pen] 32 units SUBCUT BIDAC 07/19/19 cycloBENZAPRine HCl [Flexeril] 5 mg PO TID PRN PRN 07/19/19 traZODone [Desyrel] 50 mg PO QHS PRN PRN 07/19/19 Lisinopril [Zestril] 40 mg PO DAILY #0 07/20/19 Dulaglutide [Trulicity] 1.5 mg SQ TH 10/16/19 Isosorbide Mononitrate [Imdur] 60 mg PO DAILY #30 tab 10/18/19 levothyroxine 200 mcg tablet 200 mcg PO DAILY tab 11/07/19 levothyroxine 25 mcg tablet 25 mcg PO DAILY 11/07/19 Bupropion HCl [Bupropion Xl] 150 mg PO DAILY 09/25/20 Bupropion HCl [Bupropion Xl] 300 mg PO DAILY 09/25/20 Desvenlafaxine Succinate [Pristiq] 50 mg PO DAILY 09/25/20 Aspirin E.C. [Ecotrin] 81 mg PO DAILY@0800 tablet 09/27/20 Ticagrelor [Brilinta] 90 mg PO BID #60 tablet 09/27/20 hydrALAZINE [Apresoline] 50 mg PO BID #60 tablet 09/27/20 Following Prescriptions Were Given to Patient: hydrALAZINE [Apresoline] 50 mg PO BID #60 tablet Transmission Status: Received by [facility] #30 Ticagrelor [Brilinta] 90 mg PO BID #60 tablet Transmission Status: Received by [facility] #30 Primary Care Physician: Carlotta Galindo MD [Primary Care Provider] - Please follow up with your Primary Care Physician in: in one week for check on blood pressure and visit Please Follow Up With: Wale Busby MD When: in 2-3 weeks or as directed Disposition: Home Minutes spent on discharge:: 30 Patient Condition:: Stable Medical Necessity - Tobacco Use Smoking Status: Current every day smoker Tobacco Use: Cigarettes Meaningful Use Info Meaningful Use Diagnoses (Choose all that apply): None applicable OBSV E&M: 01164 Observation care discharge
== END 2020-09-27 12:44 | disposition home or self-care (01) ==
LOC: ED 11:41 → PCU 15:46
PROVIDERS: Internal Medicine Cardiovascular Disease; Specialist; Admitting Provider Internal Medicine; Emergency Provider Emergency Medicine; PCP Internal Medicine; Visit Provider Internal Medicine
DX: I25.110 Atherosclerotic heart disease of native coronary artery with unstable angina pectoris (principal); E78.5 Hyperlipidemia, unspecified; I10 Essential (primary) hypertension; E11.9 Type 2 diabetes mellitus without complications; E66.01 Morbid (severe) obesity due to excess calories; E03.9 Hypothyroidism, unspecified; F41.9 Anxiety disorder, unspecified; F17.210 Nicotine dependence, cigarettes, uncomplicated; F32.9 Major depressive disorder, single episode, unspecified; J44.9 Chronic obstructive pulmonary disease, unspecified; R74.8 Abnormal levels of other serum enzymes; E83.42 Hypomagnesemia; K21.9 Gastro-esophageal reflux disease without esophagitis; G47.33 Obstructive sleep apnea (adult) (pediatric); T82.855A Stenosis of coronary artery stent, initial encounter; Y71.8 Miscellaneous cardiovascular devices associated with adverse incidents, not elsewhere classified; Z86.718 Personal history of other venous thrombosis and embolism; Z79.02 Long term (current) use of antithrombotics/antiplatelets; Z79.899 Other long term (current) drug therapy; Z79.82 Long term (current) use of aspirin; Z79.4 Long term (current) use of insulin; Z68.43 Body mass index [BMI] 50.0-59.9, adult; Z95.5 Presence of coronary angioplasty implant and graft; Z91.19 Patient's noncompliance with other medical treatment and regimen; Z79.51 Long term (current) use of inhaled steroids
CPT/HCPCS: 36415; 71045; 80048; 80053; 80061; 82962; 83036; 83690; 83735; 83880; 84100; 84439; 84443; 84484; 84703; 85025; 85027; 85379; 92928; 93005; 93458; 94640; 96361; 96372; 96374; 96375; 96376; 99152; 99153; 99218; 99251; 99285; 99406; C1725; J7030; A4216; C1769; C1874; C1887; C1894; C9600; G0378; G0463; J2405; Q9967

== ENCOUNTER 2020-10-07 21:40 | Inpatient (IN) | payer MEDICARE, SELFPAY ==
[2019-05-06 13:18] VITALS: BMI 56.7
[2020-09-25 15:03] VITALS: BMI 50.1
[2020-10-07 21:43] VITALS: BP 173/84; PULSE 89; RESP 18; TEMP 36.9; O2SAT 98; BMI 50.5
--- NOTE | 2020-10-07 22:06 | EKG12_ITS ---
Test Reason : CHEST PAIN Blood Pressure : / mmHG Vent. Rate : 091 BPM Atrial Rate : 091 BPM P-R Int : 156 ms QRS Dur : 078 ms QT Int : 364 ms P-R-T Axes : 041 007 020 degrees QTc Int : 447 ms Normal sinus rhythm with sinus arrhythmia Normal ECG Confirmed by KEIKO SILVA, REHAN ([id number]), website/blog editor GEORGE WONG ([id number]) on 10/10/2020 7:55:10 AM Referred By: NELY Confirmed By:REHAN ADEN MD
[2020-10-07 22:09] VITALS: O2SAT 98
--- NOTE | 2020-10-07 22:37 | RAD_ITS ---
INDICATION: chest pain EXAMINATION/TECHNIQUE: X-RAY - XR Chest 1 View COMPARISON: None. FINDINGS: The lungs are clear. The cardiomediastinal silhouette is unremarkable. No pleural effusion or pneumothorax. No acute osseous abnormalities. RAD/Chest 1 View (Portable) IMPRESSION: No acute radiographic abnormalities. Electronically Signed: Marlo Ge MD at 22:58 EDT Tel , Service support ,
[2020-10-07 22:41] VITALS: PULSE 96; RESP 18; O2SAT 98
[2020-10-07] MEDS: DiphenhydrAMINE 50 MG/ML Syringe 25 MG IV (22:44)
[2020-10-07] MEDS: Morphine 4 MG/ML Syringe IV (22:45)
[2020-10-07 22:51] LABS: Absolute Lymphocyte Count 5.33 X10^3/uL (0.83-4.51); Absolute Neutrophil Count 4.3 X10^3/uL (2.0-7.7); Basophil# 0.07 X10^3/uL; Basophil% 0.6 % (0-1); Eosinophil# 0.34 X10^3/uL; Eosinophils% 3.1 % (0-5); Hematocrit 38.6 % (37-47); Hemoglobin 13.5 g/dL (12.0-15.0); Lymphocyte # 5.33 X10^3/ul (4.0); Lymphocyte % 48.6 % (19-41); Mean Corpuscular Hgb 33.1 pg (27.0-32.0); Mean Corpuscular Volume 94.6 fL (81-99); Mean Platelet Vol. 10.2 fl (6.2-12.0); Monocyte# 0.87 X10^3/uL; Monocyte% 7.9 % (0-10); NRBC Flagged by Analyzer 0 % (0-5); Neutrophil # 4.34 X10^3/uL (2.7-7.7); Neutrophil % 39.6 % (47-70); POSITIVE DIFFERENTIAL YES; Platelet Count 329 K/mm3 (150-450); RBC Distribution Width CV 12.9 % (11.6-14.6); Red Blood Count 4.08 M/mm3 (4.2-5.4)
[2020-10-07 23:00] VITALS: BP 170/96; PULSE 92; RESP 19; O2SAT 97
[2020-10-07 23:01] LABS: Differential Indicated SCAN CRITERIA MET
[2020-10-07 23:09] LABS: Anion Gap 6 (5-15); BUN 8 mg/dL (7-18); Calcium,Total 8.7 mg/dL (8.5-10.1); Chloride 104 mmol/L (98-107); Creatinine, Serum 0.57 mg/dL (0.55-1.02); EST Glomerular Filtration Rate 121 mL/min (>60); Est Glom Filt Rate - Afr Amer 146 mL/min (>60); Estimated Creatinine Clearance 114.22 ml/min; Glucose 259 mg/dL (74-106); Potassium 3.5 mmol/L (3.5-5.1); Sodium Level 136 mmol/L (136-145)
[2020-10-08] VITALS (39 sets, daily range): BP systolic 112–170; BP diastolic 66–100; PULSE 74–103; RESP 12–19; TEMP 36.3–36.7; O2SAT 94–99; BMI 51.9
[2020-10-08] MEDS: Morphine 4 MG/ML Syringe IV ×2 (00:11→02:28)
[2020-10-08] MEDS: DiphenhydrAMINE 50 MG/ML Syringe 25 MG IV ×2 (00:11→02:28)
--- NOTE | 2020-10-08 00:50 | ED.DCSUM_ITS ---
- ER Visit Summary Date of Service: 10/08/20 Chief Complaint: Chest pain History of Present Illness: The patient is a 45 F who presents with chest pain that began approxi-1 hour prior to arrival. Patient states it is sharp and tight. Patient states the pain is over the substernal area and radiates into he r left arm. Patient states the pain is worse with exertion. Patient states the pain is better with nitroglycerin. Patient denies any nausea or vomiting. Patient denies any diaphoresis. Patient admits to some slight shortness of breath. Patient denies any cough or fevers. Patient denies any palpitations. Patient states she did have a stent placed approximately 1-1/2 weeks ago. Patient has a history of hypertension, diabetes, hypercholesterolemia, and DVT. Patient is a smoker. Physical Examination: Vital signs are stable. Patient is afebrile. Patient is in no acute distress. Oral mucosa is pink and moist. Neck is supple. Trachea is midline. There is no JVD noted. Heart was regular rate and rhythm. Lungs are clear and equal bilaterally. Abdomen is soft. Bowel sounds are normal. There is no tenderness. There is no rebound or guarding noted. Skin is warm dry. Cranial nerves II through XII are intact. There are no focal motor or sensory deficits noted. Extremities are intact. There is no calf tenderness or edema. Test Results: EKG was obtained. On my interpretation, it showed a normal sinus rhythm with a rate of 91. LA interval, QRS interval, and QTc intervals were all normal. [place] was normal. There are no acute ST or T wave changes. CBC and basic metabolic profile were obtained. Glucose was slightly elevated to 59. Troponin was normal. Portable 1 view chest x-ray was obtained. On my interpretation, lung villareal are clear. There is normal cardiac silhouette. Bony thorax is normal. There is no acute process noted. Radiologist also interpreted the x-ray and agrees. CTA of the chest was ordered and is pending. Emergency Department Course and Treatment: Patient was given aspirin here. Patient was given morphine and Benadryl was she states morphine makes her itch. Patient was still complaining of pain. Patient was given nitroglycerin. Delta troponin was ordered and is pending. Disposition: Care of the patient was turned over to the oncoming physician pending CTA and delta troponin results. Impression: 1. Chest pain This note was generated with Dragon dictation software. It may contain incorrect words, spelling, and punctuation that were not noted in review of the chart prior to signing ED Disposition - Plan for ED Patient: Disposition: Home or Assisted Living Diagnosis: Chest pain of uncertain etiology Instructions: ED Chest Pain, Uncertain Cause Referrals: Carlotta Galindo MD [Primary Care Provider] - 3-5 Days
--- NOTE | 2020-10-08 00:56 | CT_ITS ---
STUDY: CTA CHEST REASON FOR EXAM: Female, 45 years old. Chest pain RADIATION DOSAGE (If Supplied By Facility): CTDIvol = ( 19.79 ) mGy, DLP = ( 526.30 ) mGycm TECHNIQUE: The examination was performed with the intravenous administration of IV 100mL Isovue-370. Post-processing of the angiographic images was performed, with multiplanar reformation and 3D reconstruction. Individualized dose optimization techniques were used for this CT. COMPARISON: CT chest and July 25 FINDINGS: Normal enhancement of the main pulmonary artery and right and left pulmonary arteries. Normal enhancement of the bilateral peripheral pulmonary arteries. There is no demonstrated pulmonary embolism. Normal thoracic aorta and visualized great vessels. There is no demonstrated aortic dissection. There are calcifications of the coronary arteries. Normal mediastinum. Normal hilar regions. Normal visualized trachea and bronchi. There is a demonstrated hyperdense nodule overlying the right middle lobe measuring 9 mm likely consistent with granulomatous calcification given similar appearance and 07/25/2019.. Normal pulmonary parenchyma. Normal pleura. Normal chest wall structures. There are degenerative changes of thoracic spine. Normal visualized upper abdomen. CT/CTA Chest W/WO Contrast IMPRESSION: 1. No evidence of pulmonary embolism or aortic dissection. No evidence of acute cardiopulmonary process or focal consolidation. Right middle lobe granulomatous nodule as above. Electronically Signed: Geoff Stallworth DO at 1:58 EDT , Service support ,
[2020-10-08] MEDS: Nitroglycerin SL (ED/IMG/CATH) 0.4 MG TABLET SL ×3 (01:54→02:02)
--- NOTE | 2020-10-08 02:26 | PCM.HP.STD ---
Problem List (1) NSTEMI (non-ST elevated myocardial infarction) Status: Acute (2) Atherosclerotic heart disease of [place] coronary artery without angina pectoris Status: Chronic Qualifiers: Comment: Non obstructive coronary arteries; Widely patent recently placed DIAG and distal RCA stents. Non obstructive mid LAD just distal to DIAG branch as well as distal RCA. Pt's symptoms are atypical for angina and degree of chest pain is out of proportion to CAD found per cath 08/19/[address] Huerta (3) History of coronary artery stent placement Status: Chronic Comment: PCI-RAYMUNDO-LAD 11/25/2002; PCI-RAYMUNDO-RCA 04/18/2010; PCI-RAYMUNDO-D1 and distal RCA 08/12/18 RAYMUNDO LAD 11/25/2002 PCI-RAYMUNDO-D1 w/2.5 x 12 Elunir 05/06/19 ; OWA-BFX-Brxoqh RCA w/ 2.50 x 20 mm Synergy Stent and Cutting Balloon Angioplasty to ISR of Prox RCA 09/26/20 (4) Essential hypertension Status: Chronic (5) Hypercholesterolemia Status: Chronic (6) Nicotine dependence Status: Chronic History of Present Illness Date of Admission: 10/08/20 Chief Complaint: chest pain The patient is a 45 year old F with a significant history of CAD status post stent; hypertension; hyperlipidemia; diabetes mellitus; obstructive sleep apnea who presents emergency department with excruciating progressively worsening substernal chest pain that started about 1 hour prior to presentation. The chest pain radiated to her left shoulder and to her left arm. The chest pain worsens with exertion and improved with nitroglycerin. At home she took 3 tablets of nitroglycerin. Associated with her symptom is shortness of breath. She denies any nausea, vomiting or diaphoresis. She describes her chest pain as sharp and pressurized. Patient report that she has about 7-8 stents in her coronaries. She was admitted on 09/25/2020 and discharged on 09/28/2020. On that admission she had PCI of distal RCA with drug-eluting stent and cutting balloon angioplasty to in-stent restenosis in proximal RCA. Past Medical History Past Medical History (Chronic Problems): Chronic Problems (Last Updated 09/29/20 @ 11:05 by Radha Mccray) Atherosclerotic heart disease of [place] coronary artery without angina pectoris (Chronic) Non obstructive coronary arteries; Widely patent recently placed DIAG and distal RCA stents. Non obstructive mid LAD just distal to DIAG branch as well as distal RCA. Pt's symptoms are atypical for angina and degree of chest pain is out of proportion to CAD found per cath 08/19/[address] Huerta History of coronary artery stent placement (Chronic 09/26/20) PCI-RAYMUNDO-LAD 11/25/2002; PCI-RAYMUNDO-RCA 04/18/2010; PCI-RAYMUNDO-D1 and distal RCA 08/12/18 RAYMUNDO LAD 11/25/2002 PCI-RAYMUNDO-D1 w/2.5 x 12 Elunir 05/06/19 ; [id number]-SHZ-Ipzqjt RCA w/ 2.50 x 20 mm Synergy Stent and Cutting Balloon Angioplasty to ISR of Prox RCA 09/26/20 Essential hypertension (Chronic) Hypercholesterolemia (Chronic) Nicotine dependence (Chronic) Medical History: Medical History (Last Reviewed 10/08/20 @ 03:[address] Gopal Harrell MD) Atherosclerotic heart disease of [place] coronary artery without angina pectoris (Chronic) I25.10 Non obstructive coronary arteries; Widely patent recently placed DIAG and distal RCA stents. Non obstructive mid LAD just distal to DIAG branch as well as distal RCA. Pt's symptoms are atypical for angina and degree of chest pain is out of proportion to CAD found per cath 08/19/[address] Huerta Essential hypertension (Chronic) I10 Hypercholesterolemia (Chronic) E78.00 Nicotine dependence (Chronic) F17.200 Asthma J45.909 Chronic obstructive pulmonary disease J44.9 Diabetes mellitus, type II E11.9 GERD (gastroesophageal reflux disease) K21.9 History of anxiety Z86.59 Hypothyroidism E03.9 Morbid obesity with BMI of 50.0-59.9, adult E66.01, Z68.43 GEOVANI (obstructive sleep apnea) G47.33 Sleep-disordered breathing G47.30 Allergies metformin [From Glucophage] Adverse Reaction (Intermediate, Verified 10/07/20 21:47) Diarrhea hydromorphone [From Dilaudid] Adverse Reaction (Verified 10/07/20 21:47) Itching morphine Adverse Reaction (Verified 10/07/20 21:47) Itching Home Medications: Ambulatory Orders Medication Instructions Recorded Aspirin [Aspirin, Baby] 81 mg PO DAILY@0800 06/11/15 Albuterol Inhaler [Ventolin Hfa] 1 - 2 puff INHALATION Q4H PRN PRN 10/15/15 #1 inhaler Pantoprazole Sodium [Protonix] 40 mg PO DAILY 09/23/16 Ondansetron [Zofran Odt] 4 mg PO Q8H PRN PRN #10 tab 03/07/18 ALPRAZolam [Xanax] 1 mg PO QHS PRN 08/18/18 Atorvastatin Calcium [Lipitor] 80 mg PO QHS #60 tab 08/20/18 Carvedilol [Coreg (Beta Monisha)] 25 mg PO BID 05/04/19 Budesonide/Formoterol 160/4.5 2 puff PO BID 05/07/19 [Symbicort 160/4.5 Mcg Inhaler (SP)] Insulin Regular, Human [Novolin R] 26 units SUBCUT TIDCM 05/07/19 Insulin NPH Human [Humulin N Pen] 32 units SUBCUT BIDAC 07/19/19 cycloBENZAPRine HCl [Flexeril] 5 mg PO TID PRN PRN 07/19/19 traZODone [Desyrel] 50 mg PO QHS PRN PRN 07/19/19 Lisinopril [Zestril] 40 mg PO DAILY #0 07/20/19 Dulaglutide [Trulicity] 1.5 mg SQ TH 10/16/19 Isosorbide Mononitrate [Imdur] 60 mg PO DAILY #30 tab 10/18/19 levothyroxine 200 mcg tablet 200 mcg PO DAILY tab 11/07/19 levothyroxine 25 mcg tablet 25 mcg PO DAILY 11/07/19 Bupropion HCl [Bupropion Xl] 150 mg PO DAILY 09/25/20 Bupropion HCl [Bupropion Xl] 300 mg PO DAILY 09/25/20 Desvenlafaxine Succinate [Pristiq] 50 mg PO DAILY 09/25/20 Aspirin E.C. [Ecotrin] 81 mg PO DAILY@0800 tablet 09/27/20 Ticagrelor [Brilinta] 90 mg PO BID #60 tablet 09/27/20 hydrALAZINE [Apresoline] 50 mg PO BID #60 tablet 09/27/20 Surgical History: Surgical History (Last Reviewed 10/08/20 @ 03:[address] Gopal Harrell MD) History of coronary artery stent placement (Chronic) Onset Date: 09/26/20 Z95.5 PCI-RAYMUNDO-LAD 11/25/2002; PCI-RAYMUNDO-RCA 04/18/2010; PCI-RAYMUNDO-D1 and distal RCA 08/12/18 RAYMUNDO LAD 11/25/2002 PCI-RAYMUNDO-D1 w/2.5 x 12 Elunir 05/06/19 ; LDI-FSM-Fporxm RCA w/ 2.50 x 20 mm Synergy Stent and Cutting Balloon Angioplasty to ISR of Prox RCA 09/26/20 History of back surgery Z98.890 lumbar in 2013, 2014 History of delivery Z98.891 History of cholecystectomy Z90.49 History of dilatation and curettage Z98.890 History of left heart catheterization Onset Date: 10/18/19 Z98.890 History of tonsillectomy and adenoidectomy Z98.890 History of tubal ligation Z98.51 Surgical History: angioplasty - PTCA ?4 at [facility], cholecystectomy, - - 7-8 stents in the past, 2 back surgeries with hardware of the lumbar spine, carpal tunnel, tonsils, section, bilateral tubal ligation, I&D of breast abscesses, cervical conization Psychiatric History: Anxiety, Depression 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 Gopal Harrell MD) Mother Cancer Father Hypertension COPD (chronic obstructive pulmonary disease) Daughter Factor V deficiency Grandmother Cancer COPD (chronic obstructive pulmonary disease) History Items: Cancer, Diabetes, Heart Disease, Hypertension Paternal Family History: Family History (Last Reviewed 10/08/20 @ 03:[address] Gopal Harrell MD) Mother Cancer Father Hypertension COPD (chronic obstructive pulmonary disease) Daughter Factor V deficiency Grandmother Cancer COPD (chronic obstructive pulmonary disease) History Items: Diabetes, Heart Disease, Hypertension, Pulmonary Disease Review of Systems Constitutional: Denies: Chills, Fever, Weight Change HEENT: Denies: Head Aches, Sinus Congestion, Sinus Drainage Cardiovascular: Reports: Chest Pain. Denies: Palpitations Respiratory: Reports: Shortness of Breath. Denies: Cough, Sputum production Gastrointestinal: Denies: Abdominal Pain, Nausea, Vomiting Genitourinary: Denies: Dysuria Musculoskeletal: Denies: Joint Pain, Joint Tenderness Skin: Denies: Rash, Wounds Neurological: Denies: Numbness, Tingling, Focal weakness Psychiatric: Denies: Anxiety, Depression, Homicidal Ideations, Suicidal Ideations Hematologic/ Lymphatic: Denies: Easy Bruising, Easy Bleeding VTE Information - Inpt Only VTE Present on Admission: No VTE Mechan Device Prophylaxis: None VTE Pharm Prophylaxis ordered?: No Reason prophylaxis not ordered:: Treatment Not Indicated - Received therapeutic dose of Lovenox at the emergency department. Patient Problems: Active and Suspected Problems (Last Updated 09/29/20 @ 11:05 by Radha Mccray) NSTEMI (non-ST elevated myocardial infarction) (Acute) - Physical Exam Vitals/I&O's: Vital Signs Temp Pulse Resp BP Pulse Ox 98.4 F 100 12 156/90 H 98 10/07/20 21:43 10/08/20 02:02 10/08/20 02:00 10/08/20 02:02 10/08/20 02:00 Oxygen Delivery Method Room Air Weight: 142 kg Body Mass Index (BMI) 50.5 Finger Stick Blood Glucose 328 General: Alert, Oriented x3, Cooperative HEENT: Atraumatic, PERRLA, EOMI, Normocephalic Neck: Supple, No JVD, Negative Carotid Bruits Lungs: Clear to auscultation, Normal air movement Cardiovascular: Regular rate, No murmurs Abdomen: Bowel Sounds Present, Soft, Non Tender Extremities: No edema, Capillary Refill Less than 3 Seconds Skin: No rashes, No breakdown Musculoskeletal: No Tenderness to Palpation of Joints or Extremities Neurological: Cranial nerves II-XII grossly intact Psych/Mental Status: Normal Affect, Appropriate Laboratory Results 10/07/20 14:33: Sodium 136, Potassium 3.5, Chloride 104, Carbon Dioxide 26.0, Anion Gap 6, BUN 8, Creatinine 0.57, Estim Creat Clear Calc 114.22, Est GFR (MDRD) Af Amer 146, Est GFR (MDRD) Non-Af 121, BUN/Creatinine Ratio 14.0, Glucose 259 H, Calcium 8.7, Troponin I < 0.015 10/07/20 22:40: WBC 11.0, RBC 4.08 L, Hgb 13.5, Hct 38.6, MCV 94.6, MCH 33.1 H, MCHC 35.0, RDW Std Deviation 44.0 H, RDW Coeff of [place] 12.9, Plt Count 329, MPV 10.2, Immature Gran % (Auto) 0.200, Neut % (Auto) 39.6 L, Lymph % (Auto) 48.6 H, [place] % (Auto) 7.9, Eos % (Auto) 3.1, Baso % (Auto) 0.6, Absolute Neuts (auto) 4.3, Absolute Lymphs (auto) 5.33 H, Nucleated RBC % 0 10/08/20 01:42: Troponin I 0.385 H Current Medications Nitroglycerin/Dextrose () 250 mls @ 3 mls/hr CONT INF .[id number] LUIS; Protocol Assessment/Plan All Active Problems (Last Updated 09/29/20 @ 11:05 by Radha Mccray) NSTEMI (non-ST elevated myocardial infarction) (Acute) Chest pain (Resolved) Exertional chest pain (Resolved) The patient is a 45 year old F with a significant history of CAD status post stent; hypertension; hyperlipidemia; diabetes mellitus; obstructive sleep apnea who presents emergency department with excruciating progressively worsening substernal chest pain started about 1 hour prior to presentation who developed an increased in her troponin while at the emergency department. Non-ST elevation SC Place on a monitored bed at progressive care unit on stepdown status Actual CXR image was independently visualized. No acute cardiopulmonary process was noted. Impression of chest CTA by radiologist: No evidence of pulmonary embolism or aortic dissection. No evidence of acute cardiopulmonary process of focal consolidation. Right middle lobe granulomatous disease Actual EKG tracing was independently visualized. EKG tracing showed normal sinus rhythm ASA 81 mg p.o. daily and Brilinta continued. Plan Discussed the case with cardiology. Started on nitroglycerin drip; continued. Received therapeutic dose of Lovenox at the emergency department. Morphine as needed for pain ordered. Of note patient complains of itching with morphine. Received Benadryl IV at the emergency department. Benadryl IV for itching ordered. High intensity statin continued. Troponin was less than 0.015. Repeat troponin was 0.385. Continue trend troponin. Stat EKG as needed for chest pain Coronary cath intervention on 09/27/2020 was reviewed: PCI of distal RCA with drug-eluting stent and cutting balloon angioplasty to in-stent restenosis in proximal RCA. Inpatient cardiology consult. Resume guideline directed medications for CAD. Diabetes mellitus Patient with hyperglycemia on presentation N.p.o. for now pending cardiology evaluation. On home NPH. Basal insulin dose adjusted and ordered. Hold prandial insulin the setting of n.p.o. status. Accu-Chek QA [facility] with correction scale insulin ordered. Hypertension Blood pressure is not within goal Resume home blood pressure medications. Trend blood pressure and adjust blood pressure medications. Morbid BMI:50.5. Complicates care. Lifestyle modification recommended. Tobacco abuse: Counseled DVT prophylaxis Received therapeutic dose of Lovenox at emergency department. Inpatient E&M: 04159 Init Hosp L3
[2020-10-08] MEDS: Enoxaparin 150 MG/ML Syringe SC (02:36)
[2020-10-08] MEDS: Nitroglycerin Infusion 250 ML 3 MG CONT INF (02:38)
--- NOTE | 2020-10-08 03:10 | EKG12_ITS ---
Test Reason : CP ADMIT Blood Pressure : / mmHG Vent. Rate : 097 BPM Atrial Rate : 097 BPM P-R Int : 156 ms QRS Dur : 080 ms QT Int : 372 ms P-R-T Axes : 035 004 013 degrees QTc Int : 472 ms Normal sinus rhythm Normal ECG When compared with ECG of 07-OCT-2020 21:47, MANUAL COMPARISON REQUIRED, DATA IS UNCONFIRMED Confirmed by KEIKO SILVA, REHAN ([id number]), editorial assistant DAVID GAGNON ([id number]) on 10/12/2020 3:10:48 PM Referred By: DR LOVE Confirmed By:REHAN ADEN MD
[2020-10-08] MEDS: DiphenhydrAMINE 50 MG/ML Syringe 12.5 MG IV (03:45)
[2020-10-08] MEDS: Atorvastatin Calcium 80 MG Tablet PO (03:45)
[2020-10-08] MEDS: Morphine 2 MG/ML Syringe IV ×2 (03:45→20:36)
[2020-10-08] MEDS: 0.9% Saline Lock 10 ML Syringe IV ×2 (03:45→20:37)
[2020-10-08] MEDS: ALPRAZolam 0.5 MG Tablet 1 MG PO ×2 (03:58→21:51)
[2020-10-08 05:40] LABS: Anion Gap 8 (5-15); BUN 9 mg/dL (7-18); BUN/Creat Ratio 22.7 RATIO (10-20); Calcium,Total 8.6 mg/dL (8.5-10.1); Chloride 102 mmol/L (98-107); EST Glomerular Filtration Rate 184 mL/min (>60); Est Glom Filt Rate - Afr Amer 223 mL/min (>60); Estimated Creatinine Clearance 156.45 ml/min; Glucose 215 mg/dL (74-106); Potassium 3.5 mmol/L (3.5-5.1); Sodium Level 135 mmol/L (136-145)
[2020-10-08] MEDS: Levothyroxine 100 MCG Tablet 200 MCG PO (06:25)
[2020-10-08] MEDS: Levothyroxine 25 MCG TABLET PO (06:25)
[2020-10-08 06:26] LABS: Bedside Glucose 279 mg/dL (70-110)
[2020-10-08] MEDS: Albuterol 2.5 MG/3 ML VIAL.NEB. INHALATION ×3 (06:45→19:22)
[2020-10-08] MEDS: Budesonide Respules 0.5 MG/2 ML AMPUL.NEB. INHALATION ×2 (06:45→19:22)
--- NOTE | 2020-10-08 07:46 | CON.PCM_ITS ---
Reason for Consult Date of Consultation: 10/08/20 Reason for Consultation: Chest pain History of Present Illness: The patient is a 45 year old F with a history of coronary artery disease status post previous angioplasty and stenting in July 2019, October 2019, and most recently in September 2020 with angioplasty and stenting of an in-stent stenosis to the proximal and mid right coronary artery. She also has a history of hypertension hyperlipidemia morbid obesity. She presented to the emergency room complaining of chest discomfort which she described as excruciating left-sided pressure with radiation to the left side. She says that this did get some improvement with nitroglycerin. She was brought to the emergency room no EKG changes were noted and she was started on intravenous nitroglycerin. Currently she says that she is somewhat pain-free. Her physical exam is unremarkable her electrocardiogram demonstrated no acute changes. [] Past Medical History Allergies/Adverse Reactions: Allergies metformin [From Glucophage] Adverse Reaction (Intermediate, Verified 10/07/20 21:47) Diarrhea hydromorphone [From Dilaudid] Adverse Reaction (Verified 10/07/20 21:47) Itching morphine Adverse Reaction (Verified 10/07/20 21:47) Itching Home Medications: Ambulatory Orders Medication Instructions Recorded Albuterol Inhaler [Ventolin Hfa] 1 - 2 puff INHALATION Q4H PRN PRN 10/15/15 #1 inhaler Pantoprazole Sodium [Protonix] 40 mg PO DAILY 09/23/16 Ondansetron [Zofran Odt] 4 mg PO Q8H PRN PRN #10 tab 03/07/18 ALPRAZolam [Xanax] 1 mg PO QHS PRN 08/18/18 Carvedilol [Coreg (Beta Aj)] 25 mg PO BID 05/04/19 Budesonide/Formoterol 160/4.5 2 puff PO BID 05/07/19 [Symbicort 160/4.5 Mcg Inhaler (SP)] Insulin Regular, Human [Novolin R] 26 units SUBCUT TIDCM 05/07/19 Insulin NPH Human [Humulin N Pen] 32 units SUBCUT BIDAC 07/19/19 cycloBENZAPRine HCl [Flexeril] 5 mg PO TID PRN PRN 07/19/19 traZODone [Desyrel] 50 mg PO QHS PRN PRN 07/19/19 Dulaglutide [Trulicity] 1.5 mg SQ TH 10/16/19 levothyroxine 200 mcg tablet 200 mcg PO DAILY tab 11/07/19 levothyroxine 25 mcg tablet 25 mcg PO DAILY 11/07/19 Bupropion HCl [Bupropion Xl] 150 mg PO DAILY 09/25/20 Bupropion HCl [Bupropion Xl] 300 mg PO DAILY 09/25/20 Desvenlafaxine Succinate [Pristiq] 50 mg PO DAILY 09/25/20 Aspirin E.C. [Ecotrin] 81 mg PO DAILY@0800 10/08/20 Atorvastatin Calcium [Lipitor] 80 mg PO QHS 10/08/20 Isosorbide Mononitrate [Imdur] 60 mg PO DAILY 10/08/20 Lisinopril [Zestril] 40 mg PO DAILY 10/08/20 Ticagrelor [Brilinta] 90 mg PO BID 10/08/20 hydrALAZINE [Apresoline] 50 mg PO BID 10/08/20 Past Medical History (Chronic Problems): Chronic Problems (Last Reviewed 10/08/20 @ 03:[address] Gopal Harrell MD) Atherosclerotic heart disease of [place] coronary artery without angina pectoris (Chronic) Non obstructive coronary arteries; Widely patent recently placed DIAG and distal RCA stents. Non obstructive mid LAD just distal to DIAG branch as well as distal RCA. Pt's symptoms are atypical for angina and degree of chest pain is out of proportion to CAD found per cath 08/19/[address] Huerta History of coronary artery stent placement (Chronic 09/26/20) PCI-RAYMUNDO-LAD 11/25/2002; PCI-RAYMUNDO-RCA 04/18/2010; PCI-RAYMUNDO-D1 and distal RCA 08/12/18 RAYMUNDO LAD 11/25/2002 PCI-RAYMUNDO-D1 w/2.5 x 12 Elunir 05/06/19 ; MBO-NIQ-Ffdptg RCA w/ 2.50 x 20 mm Synergy Stent and Cutting Balloon Angioplasty to ISR of Prox RCA 09/26/20 Essential hypertension (Chronic) Hypercholesterolemia (Chronic) Nicotine dependence (Chronic) Surgical History: angioplasty - PTCA ?[address] 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 Gopal Harrell MD) Mother Cancer Father Hypertension COPD (chronic obstructive pulmonary disease) Daughter Factor V deficiency Grandmother Cancer COPD (chronic obstructive pulmonary disease) History Items: Cancer, Diabetes, Heart Disease, Hypertension Paternal Family History: Family History (Last Reviewed 10/08/20 @ 03:[address] Gopal Harrell MD) Mother Cancer Father Hypertension COPD (chronic obstructive pulmonary disease) Daughter Factor V deficiency Grandmother Cancer COPD (chronic obstructive pulmonary disease) History Items: Diabetes, Heart Disease, Hypertension, Pulmonary Disease Smoking Status: Current every day smoker Alcohol: None Drugs: None Review of Systems - Review of Systems General: Denies: Fever, Night Sweats, Fatigue Cardiovascular: Reports: Chest Discomfort, Chest Discomfort at Rest, Chest Discomfort with Exertion. Denies: Shortness of Breath, Orthopnea, PND, Peripheral Edema, Palpitations, Lightheadedness, Dizziness, Near Syncope, Syncope Respiratory: Denies: Cough, Sputum Production, Hemoptysis Gastrointestinal: Denies: Hematemesis, Hematochezia, Melena Genitourinary: Denies: Dysuria, Hematuria Skin: Denies: Rash Psychiatric: Reports: Anxiety Endocrine: Denies: Heat Intolerance Hematologic/ Lymphatic: Denies: Lymph Node Enlargement Subjectve: Pleasant lady in no distress Objective: Vital Signs Temp Pulse Resp BP Pulse Ox 97.5 F L 93 16 121/82 H 95 10/08/20 03:25 10/08/20 07:26 10/08/20 04:30 10/08/20 06:00 10/08/20 04:30 Oxygen Delivery Method Room Air Weight: 312 lb 2.793 oz Body Mass Index (BMI) 51.9 Finger Stick Blood Glucose 328 Intake and Output for Last 24 Hours 10/06/20 10/07/20 10/08/20 23:59 23:59 23:59 Intake Total 19.25 / 19.25 Balance 19.25 / 19.25 General: Awake, Alert, Oriented x 3 HEENT: PERRL, EOMI, Sclera Non Icteric Neck: Supple, Good ROM, No Lymph Node Enlargement Lungs: Clear to auscultation Cardiovascular: Regular Rhythm, Normal S1, Normal S2, No Murmurs, No Rubs, No Gallops Vascular: No Carotid Bruits, Normal Femoral Pulses, Normal Radial Pulses, Normal Dorsalis Pedal Pulse, Normal Posterior Tibial Pulses Abdomen: Bowel Sounds Present, Soft, Non Tender, No HSM, No Organomegaly Extremities: No Cyanosis, No Clubbing, No edema Musculoskeletal: No Erythema Skin: No Rashes Lymphatic: No Lymph Node Enlargement Neurological: No Focal Motor or Sensory Deficit 10/07/20 14:33: Sodium 136, Potassium 3.5, Chloride 104, Carbon Dioxide 26.0, Anion Gap 6, BUN 8, Creatinine 0.57, Est GFR (MDRD) Af Amer 146, Est GFR (MDRD) Non-Af 121, BUN/Creatinine Ratio 14.0, Glucose 259 H, Calcium 8.7, Troponin I < 0.015 10/07/20 22:40: WBC 11.0, RBC 4.08 L, Hgb 13.5, Hct 38.6, MCV 94.6, MCH 33.1 H, MCHC 35.0, Plt Count 329, MPV 10.2, Immature Gran % (Auto) 0.200, Neut % (Auto) 39.6 L, Lymph % (Auto) 48.6 H, [place] % (Auto) 7.9, Eos % (Auto) 3.1, Baso % (Auto) 0.6, Absolute Neuts (auto) 4.3, Nucleated RBC % 0 10/08/20 01:42: Troponin I 0.385 H 10/08/20 04:50: Sodium 135 L, Potassium 3.5, Chloride 102, Carbon Dioxide 25.0, Anion Gap 8, BUN 9, Creatinine 0.40 L, Est GFR (MDRD) Af Amer 223, Est GFR (MDRD) Non-Af 184, BUN/Creatinine Ratio 22.7 H, Glucose 215 H, Calcium 8.6, Troponin I 1.020 H* Rhythm: EKG: Normal sinus rhythm with no acute changes ECHO: Stress Test: Cardiac Cath: PCI: CT Surgery: Holter monitor: EPS: PPM: CXR: Chest CT Scan: Assessment/Plan 1. Chest pain * Patient present status post multiple angioplasty and stenting most recently in September 2020. She presents with a recurrence of the chest discomfort. Her body habitus does not lend well to stress testing and I would recommend at this time that we take a quick look at her coronary anatomy. If there is no significant stenosis noted then she can be treated medically. * Cardiac catheterization today demonstrated the following: Left main coronary artery which is angiographically free of significant disease. Left anterior descending artery with previously placed stent which is patent and mild calcification noted. Left circumflex artery with mild diffuse disease no high-grade stenosis. Dominant right coronary artery extensively stented which is patent with no areas of high-grade stenosis. Based on the above angiographic findings I would recommend aggressive medical therapy. I do not think that her chest discomfort is anginal in origin. We will continue beta-aj Would add Ranexa. Would add isosorbide. We will treat for 3 to 4 days with anti-inflammatory. 2. Hypertension * Blood pressure appears to be under good control at this present time I would not recommend we make any major changes. * * 3. Hyperlipidemia * Continue with aggressive risk factor modification. * * * Would recommend DC home either later today or tomorrow. * Thank you for allowing me to participate in the care of your patient. Please don't hesitate to call if any issues arise.
[2020-10-08] MEDS: Carvedilol 25 MG Tablet PO ×2 (07:51→17:25)
[2020-10-08] MEDS: TICAGRELOR 90 MG TABLET PO ×2 (07:51→21:47)
[2020-10-08] MEDS: Aspirin E.C. 81 MG Tablet PO (07:51)
[2020-10-08] MEDS: Lisinopril 40 MG Tablet PO (07:52)
--- NOTE | 2020-10-08 07:55 | NURSING ---
Report called to Christina in medical laboratory scientist.
[2020-10-08 08:00] LABS: Internal QC Validated? YES +Cl - CLEAR BKGD; Pregnancy, Serum, hCG Quali. NEGATIVE Negative
--- NOTE | 2020-10-08 09:05 | CL.D_ITS ---
Patient Name: ADELFO BACK Study Date: 10/08/2020 Performing: Wale Busby MD Ht: 65 inches 165 cm : 1975 Wt: 313.5 lbs 142 kg Age: 45 Gender: female BSA: 2.39 PROCEDURE(S) PERFORMED [id number] CLINICAL PROFILE AND INDICATIONS Indications: Worsening Angina Heart Failure: None Stress/Imaging Stress/Image Study Performed: No CAD Presentations: Unstable angina. CONCLUSIONS Previously placed stent in the LAD is patent. Recently placed stents in the proximal and mid and dis lydia right coronary artery appears to be patent. There is mild in-stent stenosis but no high-grade ob structive lesions. RECOMMENDATIONS Medical therapy DESCRIPTION OF PROCEDURE The patient arrived to the procedure lab. The risks and benefits of the procedure as well as a full d escription of our services here and current unavailability of surgical backup were fully explained to the patient and/or their significant other prior to the catheterization. The Timeout was completed, verifying the correct patient and procedure. The patient's procedural site was prepped and draped in the usual fashion. Local anesthetic was given subcutaneously to right radial region with Lidocaine 2% . Using a modified Seldinger technique, arterial access was obtained via the right radial artery, a 6 Fr sheath was inserted. Right Coronary Artery selective angiography was performed in multiple views using a 5 Fr. 4.0 Irene catheter. Left Coronary Artery selective angiography was performed in multipl e views using a 5 Fr. 4.0 Irene catheter.The arterial sheath was pulled and a TR Band was applied for hemostasis CORONARY ANGIOGRAPHY DOMINANCE: Right Dominant LEFT HEART ASSESSMENT Left Ventricular Ejection Fraction: by Echo 55 % LEFT MAIN: Mild calcification, No significant disease noted LEFT ANTERIOR DESCENDING ARTERY: Previously placed stent is patent MID LAD: Mild luminal irregularities less than 30% CIRCUMFLEX ARTERY: Mild luminal irregularities less than 30% RIGHT CORONARY ARTERY: PROX RCA: Previously placed stent has an instent 30 % restenosis MID RCA: Instent restenosis 30 % DISTAL RCA: Previously placed stent has an instent 30 % restenosis RT PDA: Proximal - Moderate luminal irregularities up to 50% COMPLICATIONS No Complications PROCEDURE MEDICATIONS Versed 1 mg IV Fentanyl 50 mcg IV Versed 1 mg IV Fentanyl 25 mcg IV Versed 1 mg IV Oxygen: 2 L/min via nasal cannula Nitro glycerin 25mg / 250ml D5W @ 10 mcg/min IV started on PCU and is continuing in the lab 10/08/2020 08:23:04 SUMMARY OF HEMODYNAMIC DATA Time AIR REST ECG 08:15:43 AO 133/85 (105) SA 08:39:20 Signed By Wale Busby MD On 10/08/2020 09:04:28 Wale Busby MD
[2020-10-08] MEDS: HYDROcodone Bitartrate/Apap 5/325 Tablet PO (10:15)
[2020-10-08] MEDS: hydrALAZINE 50 MG Tablet PO ×2 (10:16→21:47)
[2020-10-08] MEDS: buPROPion (XL) 150 MG TABLET.XL 450 MG PO (10:17)
[2020-10-08] MEDS: Pantoprazole Sodium 40 MG Tablet PO (10:17)
[2020-10-08] MEDS: Venlafaxine XR 37.5 MG Capsule PO (10:17)
[2020-10-08] MEDS: Ranolazine 500 MG Tablet PO ×2 (10:21→21:47)
[2020-10-08] MEDS: Isosorbide Mononitrate 30 MG Tablet PO (10:21)
--- NOTE | 2020-10-08 11:25 | CASEMGMT ---
RN MAYRA Face to Face with patient for initial transition planning/care coordination assessment. RN CM introduced self and role at [facility]. Patient lying in bed, alert and oriented. Patient willing to participate in assessment and is able to answer all questions appropriately. Care providers, pharmacy, and demographics verified. Patient wishes to discharge home, denies need for home health at this time. Patient states she has no further needs or concerns at this time. CM to follow for discharge planning needs that may arise. PCP: Mateo Specialists: [employer]; [employer] Preferred Pharmacy: [facility] Prescription Benefit: yes Living Will/HPOA: none LNOK: Living Arrangements: Patient lives with in a 1st floor apartment with 1 step to enter the home. Patient states she is independent at home. Transportation: , patient does not drive DME/HHC: Patient denies DME, patient had [facility] in the past. Disposition Plan: Patient to discharge home with family support and follow-up plans in place. Lupe OGDEN, RN, CM
--- NOTE | 2020-10-08 12:09 | PN_ITS ---
Patient Problems: Active and Suspected Problems (Last Updated 10/08/20 @ 10:25 by Radha Mccray) NSTEMI (non-ST elevated myocardial infarction) (Acute) Subjective: Patient seen and examined. She was admitted with a complaint of chest pain. Troponins also tended upwards, peaking at 1.020. She had a cardiac cath this morning which showed patent LAD stent recently placed stents in the proximal and mid as well as distal RCA were also patent with mild in-stent stenosis but no high-grade obstructive lesions. CT of the chest done was also negative. She has remained hemodynamically stable. Vitals/I&O's: Vital Signs Temp Pulse Resp BP Pulse Ox 98.1 F 81 13 150/90 H 97 10/08/20 09:25 10/08/20 11:15 10/08/20 11:15 10/08/20 11:15 10/08/20 11:15 Oxygen Delivery Method Room Air Weight: 312 lb 2.793 oz Body Mass Index (BMI) 51.9 Finger Stick Blood Glucose 328 Intake and Output for Last 24 Hours 10/06/20 10/07/20 10/08/20 23:59 23:59 23:59 Intake Total 159.75 / 159.75 Balance 159.75 / 159.75 General: Alert, Oriented x3, Cooperative HEENT: Atraumatic, PERRLA, EOMI, Normocephalic Oral: Dry Mucosa Neck: Supple, No JVD, Negative Carotid Bruits Lungs: Clear to auscultation, Normal air movement Cardiovascular: Regular rate, Regular Rhythm, Normal S1, Normal S2, No murmurs Abdomen: Bowel Sounds Present, Soft, Non Tender Extremities: No clubbing, No cyanosis, No edema, Capillary Refill Less than 3 Seconds Skin: No rashes, No breakdown Musculoskeletal: No Tenderness to Palpation of Joints or Extremities Lymphatic: No Cervical, Supraclavicular, or Inguinal Adenopathy Neurological: Cranial nerves II-XII grossly intact, Neuro grossly intact, Motor Exam 5/5 strength throughout Psych/Mental Status: Normal Affect, Appropriate, Alert and oriented to time, place, person, mood and affect Laboratory Results 10/07/20 14:33: Sodium 136, Potassium 3.5, Chloride 104, Carbon Dioxide 26.0, Anion Gap 6, BUN 8, Creatinine 0.57, Estim Creat Clear Calc 114.22, Est GFR (MDRD) Af Amer 146, Est GFR (MDRD) Non-Af 121, BUN/Creatinine Ratio 14.0, Glucose 259 H, Calcium 8.7, Troponin I < 0.015 10/07/20 22:40: WBC 11.0, RBC 4.08 L, Hgb 13.5, Hct 38.6, MCV 94.6, MCH 33.1 H, MCHC 35.0, RDW Std Deviation 44.0 H, RDW Coeff of Whitney 12.9, Plt Count 329, MPV 10.2, Immature Gran % (Auto) 0.200, Neut % (Auto) 39.6 L, Lymph % (Auto) 48.6 H, [place] % (Auto) 7.9, Eos % (Auto) 3.1, Baso % (Auto) 0.6, Absolute Neuts (auto) 4.3, Absolute Lymphs (auto) 5.33 H, Nucleated RBC % 0 10/07/20 22:40: Serum , Qual NEGATIVE 10/08/20 01:42: Troponin I 0.385 H 10/08/20 04:50: Sodium 135 L, Potassium 3.5, Chloride 102, Carbon Dioxide 25.0, Anion Gap 8, BUN 9, Creatinine 0.40 L, Estim Creat Clear Calc 156.45, Est GFR (MDRD) Af Amer 223, Est GFR (MDRD) Non-Af 184, BUN/Creatinine Ratio 22.7 H, Glucose 215 H, Calcium 8.6, Troponin I 1.020 H* 10/08/20 06:18: POC Glucose 279 H 10/08/20 07:48: Troponin I 1.020 H* Diagnostic Data Chest X-Ray 10/07/20 22:37 IMPRESSION: No acute radiographic abnormalities. Electronically Signed: Marlo Ge MD at 22:58 EDT Tel , Service support , Chest CTA 10/08/20 00:56 IMPRESSION: 1. No evidence of pulmonary embolism or aortic dissection. No evidence of acute cardiopulmonary process or focal consolidation. Right middle lobe granulomatous nodule as above. Electronically Signed: Geoff Stallworth DO at 1:58 EDT , Service support , Current Medications Albuterol Sulfate (Albuterol 2.5 Mg/3 Ml Vial.Neb.) 2.5 mg INHALATION Q2H PRN PRN PRN Reason: sob/wheezing Albuterol Sulfate (Albuterol 2.5 Mg/3 Ml Vial.Neb.) 2.5 mg INHALATION Q6HWA.RT [facility] Last Admin: 10/08/20 06:45 Dose: 2.5 mg Documented by: Alprazolam (Alprazolam 0.5 Mg Tablet) 1 mg PO QHS PRN PRN Reason: ANXIETY Last Admin: 10/08/20 03:58 Dose: 1 mg Documented by: Aspirin (Aspirin E.C. 81 Mg Tablet) 81 mg PO DAILY@0800 [facility] Last Admin: 10/08/20 07:51 Dose: 81 mg Documented by: Atorvastatin Calcium (Atorvastatin Calcium 80 Mg Tablet) 80 mg PO QHS [facility] Last Admin: 10/08/20 03:45 Dose: 80 mg Documented by: Budesonide (Budesonide Respules 0.5 Mg/2 Ml Ampul.Neb.) 0.5 mg INHALATION Q12H.RT [facility] Last Admin: 10/08/20 06:45 Dose: 0.5 mg Documented by: Bupropion HCl (Bupropion (Xl) 150 Mg Tablet.Xl) 450 mg PO DAILY [facility] Last Admin: 10/08/20 10:17 Dose: 450 mg Documented by: Carvedilol (Carvedilol 25 Mg Tablet) 25 mg PO BIDCM [facility] Last Admin: 10/08/20 07:51 Dose: 25 mg Documented by: Cyclobenzaprine HCl (Cyclobenzaprine Hcl 5 Mg Tablet) 5 mg PO TID PRN PRN PRN Reason: MUSCLE SPASM Dextrose (Dextrose 50%-Water 25 Gm/50 Ml Disp.Syrin) 0 gm IV X1 PRN; Protocol PRN Reason: Hypoglycemia Diphenhydramine HCl (Diphenhydramine 50 Mg/Ml Syringe) 12.5 mg IV Q6H PRN PRN PRN Reason: ITCHING Last Admin: 10/08/20 03:45 Dose: 12.5 mg Documented by: Glucagon (Glucagon 1 Mg/Ml Syringe) 1 mg IM .X1 PRN PRN Reason: Hypoglycemia Hydralazine HCl (Hydralazine 50 Mg Tablet) 50 mg PO BID [facility] Last Admin: 10/08/20 10:16 Dose: 50 mg Documented by: Sodium Chloride () 1,000 mls @ 0 mls/hr IV .Q0M [facility] Ibuprofen (Ibuprofen 200 Mg Tablet) 200 mg PO Q6 [facility] Insulin Glargine (Insulin Glargine 100 Units/Ml Pen) 24 units SC BID [facility] Last Admin: 10/08/20 10:18 Dose: 24 units Documented by: Insulin Human Lispro (Insulin Lispro 100 Unit/Ml Insuln.Pen) 0 unit SC Q6 [facility]; Protocol Last Admin: 10/08/20 06:20 Dose: Not Given Documented by: Isosorbide Mononitrate (Isosorbide Mononitrate 30 Mg Tablet) 30 mg PO DAILY [facility] Last Admin: 10/08/20 10:21 Dose: 30 mg Documented by: Levothyroxine Sodium (Levothyroxine 25 Mcg Tablet) 25 mcg PO DAILY@0600 [facility] Last Admin: 10/08/20 06:25 Dose: 25 mcg Documented by: Levothyroxine Sodium (Levothyroxine 100 Mcg Tablet) 200 mcg PO DAILY@0600 [facility] Last Admin: 10/08/20 06:25 Dose: 200 mcg Documented by: Lisinopril (Lisinopril 40 Mg Tablet) 40 mg PO DAILY [facility] Last Admin: 10/08/20 07:52 Dose: 40 mg Documented by: Morphine Sulfate (Morphine 2 Mg/Ml Syringe) 2 mg IV Q3H PRN PRN PRN Reason: Pain Score 6-10 Last Admin: 10/08/20 03:45 Dose: 2 mg Documented by: Ondansetron HCl (Ondansetron 4 Mg/2 Ml Vial) 4 mg IV Q8H PRN PRN PRN Reason: NAUSEA/VOMITING Pantoprazole Sodium (Pantoprazole Sodium 40 Mg Tablet) 40 mg PO DAILY [facility] Last Admin: 10/08/20 10:17 Dose: 40 mg Documented by: Ranolazine (Ranolazine 500 Mg Tablet) 500 mg PO BID [facility] Last Admin: 10/08/20 10:21 Dose: 500 mg Documented by: Senna/Docusate Sodium (Senna/Docusate Sodium 1 Tablet) 2 tablet PO BID PRN PRN PRN Reason: Constipation Sodium Chloride (0.9% Saline Lock 10 Ml Syringe) 10 - 40 ml IV UD PRN PRN Reason: SALINE FLUSH Last Admin: 10/08/20 03:45 Dose: 20 ml Documented by: Ticagrelor (Ticagrelor 90 Mg Tablet) 90 mg PO BID [facility] Last Admin: 10/08/20 07:51 Dose: 90 mg Documented by: Trazodone HCl (Trazodone 50 Mg Tablet) 50 mg PO QHS PRN PRN PRN Reason: SLEEP Venlafaxine HCl (Venlafaxine Xr 37.5 Mg Capsule) 37.5 mg PO DAILY [facility] Last Admin: 10/08/20 10:17 Dose: 37.5 mg Documented by: STROKE Vital Signs/Narrative: Vital Signs Temp Pulse Resp BP Pulse Ox 10/08/20 11:15 81 13 150/90 H 97 10/08/20 10:40 85 15 137/96 H 94 10/08/20 10:34 88 10/08/20 10:16 84 10/08/20 10:10 84 17 127/84 H 98 10/08/20 09:55 92 19 H 134/86 H 97 10/08/20 09:40 87 17 126/83 H 96 10/08/20 09:25 98.1 F 91 19 H 130/87 H 96 10/08/20 09:10 91 17 132/82 H 94 Medical Necessity - Tobacco Use Smoking Status: Current every day smoker Assessment/Plan All Active Problems (Last Updated 10/08/20 @ 10:25 by Radha Mccray) NSTEMI (non-ST elevated myocardial infarction) (Acute) Chest pain (Resolved) Exertional chest pain (Resolved) #Nonstemi * s/p cardiac cath which showed patent LAD stent and recently placed stents in the proximal and mid RCA as well as distal RCA were also patent. * On aspirin and Brilinta as well as high intensity statin. Ranexa added on. Also on Imdur. * Cardiology on board. Patient counseled to quit smoking. * #Type 2 diabetes mellitus: * On Lantus 24 units twice daily. Insulin sliding scale. Accu-Cheks AC at bedtime. * #Hypertension: On carvedilol as well as lisinopril. #Nicotine dependence: Patient says she still smokes about 10 cigarettes daily. Patient counseled to quit. #Morbid obesity: BMI is 81. Complicates acute care, prognosis and expected recovery DVT prophylaxis: SCDs Inpatient E&M: 55390 Subs Hosp L2
[2020-10-08] MEDS: Ibuprofen 200 MG Tablet PO ×2 (12:23→17:26)
[2020-10-08 12:51] LABS: Bedside Glucose 500 mg/dL (70-110)
[2020-10-08 12:59] LABS: Glucose 470 mg/dL (74-106)
[2020-10-08] MEDS: Insulin Lispro 100 UNIT/ML INSULN.PEN 15 UNIT SC ×2 (13:09→15:44)
[2020-10-08 15:18] LABS: Glucose 421 mg/dL (74-106)
[2020-10-08 17:05] LABS: Bedside Glucose 464 mg/dL (70-110)
[2020-10-08] MEDS: Insulin Lispro 100 UNIT/ML INSULN.PEN SC (17:26)
[2020-10-08 17:56] LABS: Bedside Glucose 226 mg/dL (70-110)
[2020-10-08 21:56] LABS: Bedside Glucose 201 mg/dL (70-110)
[2020-10-09 03:00] VITALS: PULSE 81
[2020-10-09 03:50] VITALS: BP 133/90; PULSE 87; RESP 16; TEMP 36.6; O2SAT 97
[2020-10-09] MEDS: Morphine 2 MG/ML Syringe IV (04:01)
[2020-10-09] MEDS: 0.9% Saline Lock 10 ML Syringe IV (04:01)
[2020-10-09 06:21] LABS: Absolute Lymphocyte Count 3.92 X10^3/uL (0.83-4.51); Absolute Neutrophil Count 3.6 X10^3/uL (2.0-7.7); Basophil# 0.06 X10^3/uL; Basophil% 0.7 % (0-1); Eosinophils% 4.5 % (0-5); Hematocrit 39.6 % (37-47); Hemoglobin 13.5 g/dL (12.0-15.0); Lymphocyte # 3.92 X10^3/ul (4.0); Lymphocyte % 44.5 % (19-41); Mean Corp Hgb Conc 34.1 g/dL (32-36); Mean Corpuscular Hgb 32.5 pg (27.0-32.0); Mean Corpuscular Volume 95.4 fL (81-99); Mean Platelet Vol. 10.5 fl (6.2-12.0); Monocyte# 0.84 X10^3/uL; Monocyte% 9.5 % (0-10); NRBC Flagged by Analyzer 0 % (0-5); Neutrophil # 3.55 X10^3/uL (2.7-7.7); Neutrophil % 40.5 % (47-70); Platelet Count 295 K/mm3 (150-450); RBC Distribution Width CV 12.8 % (11.6-14.6); RBC Distribution Width SD 44.3 fl (35.1-43.9); Red Blood Count 4.15 M/mm3 (4.2-5.4); White Blood Count 8.8 K/mm3 (4.4-11.0)
[2020-10-09 06:45] LABS: Anion Gap 4 (5-15); BUN 12 mg/dL (7-18); BUN/Creat Ratio 28.6 RATIO (10-20); Calcium,Total 8.6 mg/dL (8.5-10.1); Chloride 107 mmol/L (98-107); Creatinine, Serum 0.42 mg/dL (0.55-1.02); EST Glomerular Filtration Rate 172 mL/min (>60); Est Glom Filt Rate - Afr Amer 208 mL/min (>60); Glucose 109 mg/dL (74-106); Potassium 3.9 mmol/L (3.5-5.1); Sodium Level 137 mmol/L (136-145)
[2020-10-09] MEDS: Levothyroxine 100 MCG Tablet 200 MCG PO (06:52)
[2020-10-09] MEDS: Ibuprofen 200 MG Tablet PO ×2 (06:52→11:18)
[2020-10-09] MEDS: Levothyroxine 25 MCG TABLET PO (06:53)
[2020-10-09 07:00] VITALS: PULSE 86
[2020-10-09 07:00] LABS: Bedside Glucose 127 mg/dL (70-110)
[2020-10-09 07:43] VITALS: O2SAT 95
[2020-10-09 08:51] VITALS: BP 135/74; PULSE 89; RESP 18; TEMP 36.5; O2SAT 97
[2020-10-09] MEDS: Aspirin E.C. 81 MG Tablet PO (08:54)
[2020-10-09] MEDS: Carvedilol 25 MG Tablet PO (08:54)
[2020-10-09 08:55] VITALS: BP 135/74; PULSE 89
[2020-10-09] MEDS: hydrALAZINE 50 MG Tablet PO (08:55)
[2020-10-09] MEDS: TICAGRELOR 90 MG TABLET PO (08:55)
[2020-10-09] MEDS: Venlafaxine XR 37.5 MG Capsule PO (08:55)
[2020-10-09] MEDS: Isosorbide Mononitrate 30 MG Tablet PO (08:55)
[2020-10-09] MEDS: Ranolazine 500 MG Tablet PO (08:56)
[2020-10-09] MEDS: Lisinopril 40 MG Tablet PO (08:56)
[2020-10-09] MEDS: Pantoprazole Sodium 40 MG Tablet PO (08:56)
[2020-10-09] MEDS: buPROPion (XL) 150 MG TABLET.XL 450 MG PO (08:56)
[2020-10-09] MEDS: cycloBENZAPRine HCl 5 MG TABLET PO (08:58)
[2020-10-09] MEDS: Insulin Lispro 100 UNIT/ML INSULN.PEN SC (11:18)
[2020-10-09 11:26] LABS: Bedside Glucose 359 mg/dL (70-110)
--- NOTE | 2020-10-09 11:33 | DCINST_ITS ---
- Discharge Diagnoses Current Active Problems: Current Active and Chronic Problems (Last Updated 10/08/20 @ 10:25 by Radha Mccray) NSTEMI (non-ST elevated myocardial infarction) (Acute) Atherosclerotic heart disease of [place] coronary artery without angina pectoris (Chronic) History of coronary artery stent placement (Chronic 09/26/20) PCI-RAYMUNDO-LAD 11/25/2002; PCI-RAYMUNDO-RCA 04/18/2010; PCI-RAYMUNDO-D1 and distal RCA 08/12/18 RAYMUNDO LAD 11/25/2002 PCI-RAYMUNDO-D1 w/2.5 x 12 Elunir 05/06/19 ; UDF-FAG-Vmerhn RCA w/ 2.50 x 20 mm Synergy Stent and Cutting Balloon Angioplasty to ISR of Prox RCA 09/26/20 Essential hypertension (Chronic) Hypercholesterolemia (Chronic) Nicotine dependence (Chronic) You will use the following diet at home:: Calorie/Carbohydrate Controlled (specify 1200, 1400, etc) - 1800 calories, Cardiac Your food should be the consistency of: Regular Your liquids should be the consistency of: Regular/Thin Weight Bearing Status: Weight bearing as tolerated Call your doctor if you observe: Fever of 101 or Higher, Shortness of breath, Dizziness, Chest pain Instructions: ED Chest Pain, Uncertain Cause Additional Instructions: patient counseled strongly to quit smoking Allergies/Adverse Reactions: Allergies metformin [From Glucophage] Adverse Reaction (Intermediate, Verified 10/07/20 21:47) Diarrhea hydromorphone [From Dilaudid] Adverse Reaction (Verified 10/07/20 21:47) Itching morphine Adverse Reaction (Verified 10/07/20 21:47) Itching Medications to take at Discharge Albuterol Inhaler [Ventolin Hfa] 1 - 2 puff INHALATION Q4H PRN PRN #1 inhaler 10/15/15 Pantoprazole Sodium [Protonix] 40 mg PO DAILY 09/23/16 Ondansetron [Zofran Odt] 4 mg PO Q8H PRN PRN #10 tab 03/07/18 ALPRAZolam [Xanax] 1 mg PO QHS PRN 08/18/18 Carvedilol [Coreg (Beta Monisha)] 25 mg PO BID 05/04/19 Budesonide/Formoterol 160/4.5 [Symbicort 160/4.5 Mcg Inhaler (SP)] 2 puff PO BID 05/07/19 Insulin Regular, Human [Novolin R] 26 units SUBCUT TIDCM 05/07/19 Insulin NPH Human [Humulin N Pen] 32 units SUBCUT BIDAC 07/19/19 cycloBENZAPRine HCl [Flexeril] 5 mg PO TID PRN PRN 07/19/19 traZODone [Desyrel] 50 mg PO QHS PRN PRN 07/19/19 Dulaglutide [Trulicity] 1.5 mg SQ TH 10/16/19 levothyroxine 200 mcg tablet 200 mcg PO DAILY tab 11/07/19 levothyroxine 25 mcg tablet 25 mcg PO DAILY 11/07/19 Bupropion HCl [Bupropion Xl] 150 mg PO DAILY 09/25/20 Bupropion HCl [Bupropion Xl] 300 mg PO DAILY 09/25/20 Desvenlafaxine Succinate [Pristiq] 50 mg PO DAILY 09/25/20 Aspirin E.C. [Ecotrin] 81 mg PO DAILY@0800 10/08/20 Atorvastatin Calcium [Lipitor] 80 mg PO QHS 10/08/20 Isosorbide Mononitrate [Imdur] 60 mg PO DAILY 10/08/20 Lisinopril [Zestril] 40 mg PO DAILY 10/08/20 Ticagrelor [Brilinta] 90 mg PO BID 10/08/20 hydrALAZINE [Apresoline] 50 mg PO BID 10/08/20 Ibuprofen [Motrin] 200 mg PO Q6 #16 tablet 10/09/20 Ranolazine [Ranexa] 500 mg PO BID #60 tablet 10/09/20 The following prescriptions were given: Ibuprofen [Motrin] 200 mg PO Q6 #16 tablet Transmission Status: Received by [facility] Ranolazine [Ranexa] 500 mg PO BID #60 tablet Transmission Status: Received by [facility] Primary Care Physician: Carlotta Galindo MD [Primary Care Provider] - 3-5 Days Please follow up with your Primary Care Physician in: 1-2 weeks Test Results: Test results from this visit will be discussed in further detail at your follow- up appointment, if applicable. Please Follow Up With: Wale Busby MD When: 4-6 weeks Proposed Discharge Date: 10/09/20
--- NOTE | 2020-10-09 15:29 | PCM.DC.SUM ---
Discharge Date and Diagnosis - Problem List Patient Problems: Active and Suspected Problems (Last Updated 10/08/20 @ 10:25 by Radha Mccray) NSTEMI (non-ST elevated myocardial infarction) (Acute) Date of Admission: 10/08/20 Date of Discharge: 10/09/20 - Primary Discharge Diagnosis Acute Problems: Active Problems (Last Updated 10/08/20 @ 10:25 by Radha Mccray) NSTEMI (non-ST elevated myocardial infarction) (Acute) - Secondary Discharge Diagnosis Chronic Problems: Chronic Problems (Last Updated 10/08/20 @ 10:25 by Radha Mccray) Atherosclerotic heart disease of [place] coronary artery without angina pectoris (Chronic) History of coronary artery stent placement (Chronic 09/26/20) PCI-RAYMUNDO-LAD 11/25/2002; PCI-RAYMUNDO-RCA 04/18/2010; PCI-RAYMUNDO-D1 and distal RCA 08/12/18 RAYMUNDO LAD 11/25/2002 PCI-RAYMUNDO-D1 w/2.5 x 12 Elunir 05/06/19 ; CIU-[id number]-[id number] RCA w/ 2.50 x 20 mm Synergy Stent and Cutting Balloon Angioplasty to ISR of Prox RCA 09/26/20 Essential hypertension (Chronic) Hypercholesterolemia (Chronic) Nicotine dependence (Chronic) Hospital Course and Treatment Imaging Results: Diagnostic Data Chest X-Ray 10/07/20 22:37 IMPRESSION: No acute radiographic abnormalities. Electronically Signed: Marlo Ge MD at 22:58 EDT Tel , Service support , Chest CTA 10/08/20 00:56 IMPRESSION: 1. No evidence of pulmonary embolism or aortic dissection. No evidence of acute cardiopulmonary process or focal consolidation. Right middle lobe granulomatous nodule as above. Electronically Signed: Geoff Stallworth DO at 1:58 EDT , Service support , Operations: None Procedures: Cardiac catheterization Summary of Care Provided: The patient is a 45 year old F with a past medical history as outlined including CAD s/p stents, hypertension, hyperlipidemia, diabetes mellitus and GEOVANI who was admitted through the ED on 10/09/2019 with a complaint of left-sided chest pain that started an hour prior to admission. Chest pain radiated to her left shoulder and left arm was worsened by exertion and relieved with nitroglycerin. She had a sister shortness of breath. He had recently been admitted and discharged on 09/28/2020 during which admission she had PCI of the distal RCA with placement of drug-eluting stent and balloon angioplasty to in-stent restenosis in the proximal RCA. Her troponin on admission was negative but this trended up to a peak of 1.02. Cardiology was therefore consulted and she was managed for non-STEMI. She had cardiac cath on 10/08/2020 which showed a patent LAD stent as well as patent stents in the proximal and mid as well as distal RCA with mild in-stent restenosis but no high-grade obstructive lesions. CT of the chest done was also negative for PE. She was started on ibuprofen per cardiology due to possible pericarditis. Patient remained stable and was discharged home on 10/09/2020. She was counseled strongly to quit smoking. Her medications were adjusted and Ranexa was added on. She was discharged home on 10/09/2020 with a prescription for ibuprofen 200 mg every 6 hours for 4 days as well as Ranexa. He is to continue aspirin and Brilinta as well as Imdur and high intensity statin and also carvedilol. She is to follow-up with her primary care doctor and cardiology. Patient seen and examined prior to discharge. She still did complain of a bit of chest pain. Review of symptoms otherwise negative. Labs and vitals reviewed. Home medication reviewed and reconciled. O/E: Vital Signs Temp Pulse Resp BP Pulse Ox 97.7 F L 89 18 135/74 H 97 10/09/20 08:51 10/09/20 08:55 10/09/20 08:51 10/09/20 08:55 10/09/20 08:51 General: Alert, Oriented x3, Cooperative HEENT: Atraumatic, PERRLA, EOMI, Normocephalic Oral: Dry Mucosa Neck: Supple, No JVD, Negative Carotid Bruits Lungs: Clear to auscultation, Normal air movement Cardiovascular: Regular rate, Regular Rhythm, Normal S1, Normal S2, No murmurs Abdomen: Bowel Sounds Present, Soft, Non Tender Extremities: No clubbing, No cyanosis, No edema, Capillary Refill Less than 3 Seconds Skin: No rashes, No breakdown Musculoskeletal: No Tenderness to Palpation of Joints or Extremities Lymphatic: No Cervical, Supraclavicular, or Inguinal Adenopathy Neurological: Cranial nerves II-XII grossly intact, Neuro grossly intact, Motor Exam 5/5 strength throughout Psych/Mental Status: Normal Affect, Appropriate, Alert and oriented to time, place, person, mood and affect Plan is for discharge home today. Patient Problems: Active and Suspected Problems (Last Updated 10/08/20 @ 10:25 by Radha Mccray) NSTEMI (non-ST elevated myocardial infarction) (Acute) - Physical Exam Vitals/I&O's: Vital Signs Temp Pulse Resp BP Pulse Ox 97.7 F L 89 18 135/74 H 97 10/09/20 08:51 10/09/20 08:55 10/09/20 08:51 10/09/20 08:55 10/09/20 08:51 Oxygen Delivery Method Room Air Weight: 312 lb 2.793 oz Body Mass Index (BMI) 51.9 Finger Stick Blood Glucose 328 Intake and Output for Last 24 Hours 10/07/20 10/08/20 10/09/20 23:59 23:59 23:59 Intake Total 759.75 / 999.75 960 / 960 Balance 759.75 / 999.75 960 / 960 Laboratory Results 10/08/20 14:33: POC Glucose 464 H* 10/08/20 17:24: POC Glucose 226 H 10/08/20 21:44: POC Glucose 201 H 10/09/20 05:55: WBC 8.8, RBC 4.15 L, Hgb 13.5, Hct 39.6, MCV 95.4, MCH 32.5 H, MCHC 34.1, RDW Std Deviation 44.3 H, RDW Coeff of Whitney 12.8, Plt Count 295, MPV 10.5, Immature Gran % (Auto) 0.300, Neut % (Auto) 40.5 L, Lymph % (Auto) 44.5 H, Petroleum % (Auto) 9.5, Eos % (Auto) 4.5, Baso % (Auto) 0.7, Absolute Neuts (auto) 3.6, Absolute Lymphs (auto) 3.92, Nucleated RBC % 0 10/09/20 05:55: Sodium 137, Potassium 3.9, Chloride 107, Carbon Dioxide 26.0, Anion Gap 4 L, BUN 12, Creatinine 0.42 L, Estim Creat Clear Calc 149.00, Est GFR (MDRD) Af Amer 208, Est GFR (MDRD) Non-Af 172, BUN/Creatinine Ratio 28.6 H, Glucose 109 H, Calcium 8.6 10/09/20 06:51: POC Glucose 127 H 10/09/20 11:17: POC Glucose 359 H Discharge Diet: Low fat/ Low Cholesterol, 1800 Calorie Control Diet Discharge Activity: Return to Normal Activity Weight Bearing Status: Weight bearing as tolerated Call your doctor if you observe: Fever of 101 or Higher, Shortness of breath, Dizziness, Chest pain Home Medications: Medications to take at Discharge Albuterol Inhaler [Ventolin Hfa] 1 - 2 puff INHALATION Q4H PRN PRN #1 inhaler 10/15/15 Pantoprazole Sodium [Protonix] 40 mg PO DAILY 09/23/16 Ondansetron [Zofran Odt] 4 mg PO Q8H PRN PRN #10 tab 03/07/18 ALPRAZolam [Xanax] 1 mg PO QHS PRN 08/18/18 Carvedilol [Coreg (Beta Monisha)] 25 mg PO BID 05/04/19 Budesonide/Formoterol 160/4.5 [Symbicort 160/4.5 Mcg Inhaler (SP)] 2 puff PO BID 05/07/19 Insulin Regular, Human [Novolin R] 26 units SUBCUT TIDCM 05/07/19 Insulin NPH Human [Humulin N Pen] 32 units SUBCUT BIDAC 07/19/19 cycloBENZAPRine HCl [Flexeril] 5 mg PO TID PRN PRN 07/19/19 traZODone [Desyrel] 50 mg PO QHS PRN PRN 07/19/19 Dulaglutide [Trulicity] 1.5 mg SQ TH 10/16/19 levothyroxine 200 mcg tablet 200 mcg PO DAILY tab 11/07/19 levothyroxine 25 mcg tablet 25 mcg PO DAILY 11/07/19 Bupropion HCl [Bupropion Xl] 150 mg PO DAILY 09/25/20 Bupropion HCl [Bupropion Xl] 300 mg PO DAILY 09/25/20 Desvenlafaxine Succinate [Pristiq] 50 mg PO DAILY 09/25/20 Aspirin E.C. [Ecotrin] 81 mg PO DAILY@0800 10/08/20 Atorvastatin Calcium [Lipitor] 80 mg PO QHS 10/08/20 Isosorbide Mononitrate [Imdur] 60 mg PO DAILY 10/08/20 Lisinopril [Zestril] 40 mg PO DAILY 10/08/20 Ticagrelor [Brilinta] 90 mg PO BID 10/08/20 hydrALAZINE [Apresoline] 50 mg PO BID 10/08/20 Ibuprofen [Motrin] 200 mg PO Q6 #16 tablet 10/09/20 Ranolazine [Ranexa] 500 mg PO BID #60 tablet 10/09/20 Following Prescriptions Were Given to Patient: Ibuprofen [Motrin] 200 mg PO Q6 #16 tablet Transmission Status: Received by [facility] Ranolazine [Ranexa] 500 mg PO BID #60 tablet Transmission Status: Received by [facility] Primary Care Physician: Carlotta Galindo MD [Primary Care Provider] - 3-5 Days Please follow up with your Primary Care Physician in: 1-2 weeks Please Follow Up With: Wale Busby MD When: 4-6 weeks Patient Instructions: ED Chest Pain, Uncertain Cause Disposition: Home Minutes spent on discharge:: 45 Patient Condition:: Stable Medical Necessity - Tobacco Use Smoking Status: Current every day smoker Meaningful Use Info Meaningful Use Diagnoses (Choose all that apply): None applicable Inpatient E&M: [id number] [facility]
== END 2020-10-09 13:21 | disposition home or self-care (01) | DRG 281 ==
LOC: ED 10-08 02:18 → PCU 10-08 02:28
PROVIDERS: Internal Medicine Cardiovascular Disease; Admitting Provider Hospitalist; Emergency Provider Emergency Medicine; PCP Internal Medicine; Visit Provider Student in an Organized Health Care Education/Training Program
DX: I21.4 Non-ST elevation (NSTEMI) myocardial infarction (principal); Z68.43 Body mass index [BMI] 50.0-59.9, adult; I25.110 Atherosclerotic heart disease of native coronary artery with unstable angina pectoris; Z95.5 Presence of coronary angioplasty implant and graft; I10 Essential (primary) hypertension; E78.00 Pure hypercholesterolemia, unspecified; G47.33 Obstructive sleep apnea (adult) (pediatric); E66.01 Morbid (severe) obesity due to excess calories; E11.65 Type 2 diabetes mellitus with hyperglycemia; E03.9 Hypothyroidism, unspecified; F41.9 Anxiety disorder, unspecified; J44.9 Chronic obstructive pulmonary disease, unspecified; F17.210 Nicotine dependence, cigarettes, uncomplicated; Z79.02 Long term (current) use of antithrombotics/antiplatelets; Z79.4 Long term (current) use of insulin; Z79.51 Long term (current) use of inhaled steroids; Z79.82 Long term (current) use of aspirin; Z79.890 Hormone replacement therapy; Z79.899 Other long term (current) drug therapy
CPT/HCPCS: 36415; 71045; 71275; 80048; 82947; 82962; 84484; 84703; 85025; 93005; 93454; 94640; 99152; 99153; 99285; 99406; J7040; A4216; C1769; C1894; Q9967

== ENCOUNTER 2020-10-20 18:49 | Inpatient (IN) | payer MEDICARE, MEDICAID, SELFPAY ==
[2019-05-06 13:18] VITALS: BMI 56.7
[2020-10-08 03:11] VITALS: BMI 51.9
[2020-10-20] VITALS (10 sets, daily range): BP systolic 122–172; BP diastolic 94–125; PULSE 55–95; RESP 15–24; TEMP 36.2–36.6; O2SAT 97–100; BMI 52.4; BMI 50.5; BMI 50.6
--- NOTE | 2020-10-20 18:54 | EKG12_ITS ---
Test Reason : CP Blood Pressure : / mmHG Vent. Rate : 055 BPM Atrial Rate : 055 BPM P-R Int : 000 ms QRS Dur : 082 ms QT Int : 426 ms P-R-T Axes : 000 024 068 degrees QTc Int : 407 ms AGE AND GENDER SPECIFIC ECG ANALYSIS Junctional rhythm Septal infarct , age undetermined Inferior injury pattern ACUTE RI / STEMI Consider right ventricular involvement in acute inferior infarct Abnormal ECG Confirmed by FATOU SILVA, ANGELY ([id number]), brands editor ODALYS PHILIPPE ([id number]) on 10/23/2020 9:01:45 AM Referred By: Sachin Bangura Confirmed By:LEANDRA LAINEZ MD
--- NOTE | 2020-10-20 18:55 | ED.VIS.CHEST ---
History of Present Illness Chief Complaint: Chest Pain Informant: Patient, EMS Onset: Hours Activity at onset: Light Activity Timing: Continuous Quality: Heaviness, Pressure Location: Substernal Current Severity: Moderate Maximum Severity: Severe Worsened By: Exertion Associated Symptoms: Nausea, Diaphoresis, - - Radiated to left upper extremity Narrative: Patient is a 45-year-old morbidly obese woman with history of coronary disease, hypertension, diabetes, hypercholesterolemia and a smoker. She smokes 1/2 pack/day. She states she had a stent placed 2 to 2-1/2 weeks ago. She states she was walking the store when she developed substernal chest heaviness. Squad was called. Prehospital EKG reveals suspicion for inferior injury with ST depression in V2. Patient is still having discomfort. She took 2 nitroglycerin with little relief. Squad gave her aspirin. She is presently on Brilinta. States this is worse than the pain she experienced prior to her last stent. Prior Similar Symptoms: Yes, With Prior Angina Recent Illness/Hospitalization: Yes CVD Risk Factors: Hypertension, Diabetes, Hypercholesterolemia, Smoking PE Risk Factors: Negative for: Recent Travel/Surgery, Recenet Immobilization, Prior DVT or PE TAD Risk Factors: Hypertension. Negative for: Marfan's Syndrome, Family History - Past Medical History (1) Atherosclerotic heart disease of [place] coronary artery without angina pectoris Status: Chronic (2) Essential hypertension Status: Chronic (3) History of coronary artery stent placement Status: Chronic Comment: PCI-RAYMUNDO-LAD 11/25/2002; PCI-RAYMUNDO-RCA 04/18/2010; PCI-RAYMUNDO-D1 and distal RCA 08/12/18 RAYMUNDO LAD 11/25/2002 PCI-RAYMUNDO-D1 w/2.5 x 12 Elunir 05/06/19 ; [id number]-[id number] RCA w/ 2.50 x 20 mm Synergy Stent and Cutting Balloon Angioplasty to ISR of Prox RCA 09/26/20 (4) Hypercholesterolemia Status: Chronic (5) Nicotine dependence Status: Chronic (6) Chest pain of uncertain etiology Status: Inactive Past Medical History - Allergies and Home Meds Allergies/Adverse Reactions: Allergies metformin [From Glucophage] Adverse Reaction (Intermediate, Verified 10/07/20 21:47) Diarrhea hydromorphone [From Dilaudid] Adverse Reaction (Verified 10/07/20 21:47) Itching morphine Adverse Reaction (Verified 04/04/21 21:47) Itching Primary Care Physician: Carlotta Galindo MD [Primary Care Provider] - Prior records reviewed: Yes Surgical History: angioplasty - PTCA ?4 at [facility], cholecystectomy, - - 7-8 stents in the past, 2 back surgeries with hardware of the lumbar spine, carpal tunnel, tonsils, section, bilateral tubal ligation, I&D of breast abscesses, cervical conization Lives: Spouse/ Significant Other Smoking Status: Current every day smoker Alcohol: None Drugs: None - Family History Maternal Family History: Family History (Last Reviewed 10/08/20 @ 03:[address] Gopal Harrell MD) Mother Cancer Father Hypertension COPD (chronic obstructive pulmonary disease) Daughter Factor V deficiency Grandmother Cancer COPD (chronic obstructive pulmonary disease) Family History: Reports: Cancer, Diabetes, Heart Disease, Hypertension Paternal Family History: Family History (Last Reviewed 10/08/20 @ 03:[address] Gopal Harrell MD) Mother Cancer Father Hypertension COPD (chronic obstructive pulmonary disease) Daughter Factor V deficiency Grandmother Cancer COPD (chronic obstructive pulmonary disease) Family History: Reports: Diabetes, Heart Disease, Hypertension, Pulmonary Disease Review of Systems General: Reports: Malaise. Denies: Chills, Fever, Subjective Eyes: Denies: Visual changes - bilaterally, Blurred Vision - bilaterally ENT: Denies: Bilateral ear pain, Rhinorrhea, Sore throat Cardiovascular: Reports: Chest pain. Denies: Palpitations, Heart racing Respiratory: Reports: Dyspnea, Dyspnea on exertion. Denies: Cough, Sputum, Orthopnea Gastrointestinal: Reports: Nausea. Denies: Abdominal pain, Vomiting, Melena, Hematochezia Genitourinary: Denies: Dysuria, Hematuria, Frequency Musculoskeletal: Reports: Extremity Pain. Denies: Myalgias, Arthralgias, Neck pain, Back pain, Swelling, -, - Skin: Denies: Rash, Wounds Neurological: Denies: Headache, Weakness Endocrine: Denies: Polyuria, Polydipsia Physical Exam Vital Signs/Narrative: Vital Signs Temp Pulse Resp BP Pulse Ox 10/20/20 18:49 97.2 F L 55 L 24 H 172/94 H 100 Inital Vital Signs reviewed: Yes General: Well nourished, Well developed, Obese, Acute Distress Head: Normocephalic, Atraumatic Eyes: Perrl, EOMI. Negative for: Pale conjunctiva ENT: Moist mucous membranes, No rhinorrhea Neck: Supple, Nontender, No lymphadenopathy, No JVD Cardiovascular: Regular rhythm, No murmurs, Normal S1, Normal S2, Bradycardia Respiratory: No distress Abdomen: Soft, Nontender, Nondistended, Normal bowel sounds Rectal: Deferred Back: Nontender, Normal Inspection. Negative for: CVA tenderness Extremities: Nontender, No edema Skin: No rash, No Trauma, Pallor. Negative for: Cyanosis, Diaphoresis, Jaundice Neurological: Alert, Oriented x3, Cranial nerves II-XII grossly intact, Normal Strength, Normal Sensation Psychological: Negative for: Normal affect, Normal Mood Diagnostic/Tx/Re-eval Chest X-Ray - ED: 1 View, Read by ED Physician, Normal, Heart, Lungs, Mediastinum, Bony Structures, No Acute Disease, Chronic Changes, - - Change from chest x-ray this past September. Treatment: Aspirin - Per EMS, Heparin IV, - - Brilinta - Medical Decision Making His EKG is consistent with inferior ST elevation FL. Patient was treated with aspirin prehospital he. She was received heparin in the emergency department. Since she is presently on Brilinta will discuss administration of more antiplatelet medicine with interventional cardiology. Since this is an inferior [place] patient was not given nitroglycerin. Will treat with opiate analgesia for her discomfort. Critical care time (excluding procedures): 30-74 minutes - Critical care time 24 minutes which included obtaining history, physical exam, initiation of therapy, discussion with [employer]worker [employer]. ED Disposition - Plan for ED Patient: Disposition: Acute Care Hospital [facility] Diagnosis: ST elevation myocardial infarction (STEMI) of inferior wall, Sinus bradycardia by electrocardiogram Referrals: Carlotta Galindo MD [Primary Care Provider] -
[2020-10-20] MEDS: Heparin Injection (Vial) 5,000 UNIT/ML VIAL 4000 UNIT IV (19:09)
[2020-10-20] MEDS: TICAGRELOR 90 MG TABLET 180 MG PO (19:11)
--- NOTE | 2020-10-20 19:12 | HP.PCM_ITS ---
Problem List (1) ST elevation myocardial infarction (STEMI) of inferior wall Status: Acute (2) Sinus bradycardia by electrocardiogram Status: Acute (3) NSTEMI (non-ST elevated myocardial infarction) Status: Resolved (4) Atherosclerotic heart disease of [place] coronary artery without angina pectoris Status: Chronic Qualifiers: (5) History of coronary artery stent placement Status: Chronic Comment: PCI-RAYMUNDO-LAD 11/25/2002; PCI-RAYMUNDO-RCA 04/18/2010; PCI-RAYMUNDO-D1 and distal RCA 08/12/18 RAYMUNDO LAD 11/25/2002 PCI-RAYMUNDO-D1 w/2.5 x 12 Elunir 05/06/19 ; [id number] RCA w/ 2.50 x 20 mm Synergy Stent and Cutting Balloon Angioplasty to ISR of Prox RCA 09/26/20 (6) Essential hypertension Status: Chronic (7) Hypercholesterolemia Status: Chronic (8) Nicotine dependence Status: Chronic History of Present Illness Date of Admission: 10/20/20 Chief Complaint: Chest pain The patient is a 45 year old F with a significant history of CAD status post stent; hypertension; hyperlipidemia; diabetes mellitus; obstructive sleep apnea who presents emergency department with excruciating progressively worsening substernal sharp chest heaviness that started about half and hour prior to presentation. The chest pain radiated to her left arm. There are no ameliorating or aggravating factors to her chest pain. Patient was recently admitted on 10/08/2020 and discharged on 10/09/2020 for non-STEMI and possible pericarditis. Past Medical History Past Medical History (Chronic Problems): Chronic Problems (Last Reviewed 10/21/20 @ 02:[address] Gopal Harrell MD) Atherosclerotic heart disease of [place] coronary artery without angina pectoris (Chronic) History of coronary artery stent placement (Chronic 09/26/20) PCI-RAYMUNDO-LAD 11/25/2002; PCI-RAYMUNDO-RCA 04/18/2010; PCI-RAYMUNDO-D1 and distal RCA 08/12/18 RAYMUNDO LAD 11/25/2002 PCI-RAYMUNDO-D1 w/2.5 x 12 Elunir 05/06/19 ; [id number] RCA w/ 2.50 x 20 mm Synergy Stent and Cutting Balloon Angioplasty to ISR of Prox RCA 09/26/20 Essential hypertension (Chronic) Hypercholesterolemia (Chronic) Nicotine dependence (Chronic) Medical History: Medical History (Last Reviewed 10/21/20 @ 02:[address] Gopal Harrell MD) Atherosclerotic heart disease of [place] coronary artery without angina pectoris (Chronic) I25.10 Essential hypertension (Chronic) I10 Hypercholesterolemia (Chronic) E78.00 Nicotine dependence (Chronic) F17.200 Asthma J45.909 Chronic obstructive pulmonary disease J44.9 Diabetes mellitus, type II E11.9 GERD (gastroesophageal reflux disease) K21.9 History of anxiety Z86.59 Hypothyroidism E03.9 Morbid obesity with BMI of 50.0-59.9, adult E66.01, Z68.43 GEOVANI (obstructive sleep apnea) G47.33 Sleep-disordered breathing G47.30 Allergies metformin [From Glucophage] Adverse Reaction (Intermediate, Verified 10/07/20 21:47) Diarrhea hydromorphone [From Dilaudid] Adverse Reaction (Verified 10/07/20 21:47) Itching morphine Adverse Reaction (Verified 10/07/20 21:47) Itching Home Medications: Ambulatory Orders Medication Instructions Recorded Albuterol Inhaler [Ventolin Hfa] 1 - 2 puff INHALATION Q4H PRN PRN 10/15/15 #1 inhaler Pantoprazole Sodium [Protonix] 40 mg PO DAILY 09/23/16 Ondansetron [Zofran Odt] 4 mg PO Q8H PRN PRN #10 tab 03/07/18 ALPRAZolam [Xanax] 1 mg PO QHS PRN 08/18/18 Carvedilol [Coreg (Beta Monisha)] 25 mg PO BID 05/04/19 Budesonide/Formoterol 160/4.5 2 puff PO BID 05/07/19 [Symbicort 160/4.5 Mcg Inhaler (SP)] Insulin Regular, Human [Novolin R] 26 units SUBCUT TIDCM 05/07/19 Insulin NPH Human [Humulin N Pen] 32 units SUBCUT BIDAC 07/19/19 cycloBENZAPRine HCl [Flexeril] 5 mg PO TID PRN PRN 07/19/19 traZODone [Desyrel] 50 mg PO QHS PRN PRN 07/19/19 Dulaglutide [Trulicity] 1.5 mg SQ TH 10/16/19 levothyroxine 200 mcg tablet 200 mcg PO DAILY tab 11/07/19 levothyroxine 25 mcg tablet 25 mcg PO DAILY 11/07/19 Bupropion HCl [Bupropion Xl] 150 mg PO DAILY 09/25/20 Bupropion HCl [Bupropion Xl] 300 mg PO DAILY 09/25/20 Desvenlafaxine Succinate [Pristiq] 50 mg PO DAILY 09/25/20 Aspirin E.C. [Ecotrin] 81 mg PO DAILY@0800 10/08/20 Atorvastatin Calcium [Lipitor] 80 mg PO QHS 10/08/20 Isosorbide Mononitrate [Imdur] 60 mg PO DAILY 10/08/20 Lisinopril [Zestril] 40 mg PO DAILY 10/08/20 Ticagrelor [Brilinta] 90 mg PO BID 10/08/20 hydrALAZINE [Apresoline] 50 mg PO BID 10/08/20 Ibuprofen [Motrin] 200 mg PO PRN PRN 10/20/20 Ranolazine [Ranexa] 500 mg PO BID 10/20/20 Surgical History: Surgical History (Last Reviewed 10/21/20 @ 02:[address] Gopal Harrell MD) History of coronary artery stent placement (Chronic) Onset Date: 09/26/20 Z95.5 PCI-RAYMUNDO-LAD 11/25/2002; PCI-RAYMUNDO-RCA 04/18/2010; PCI-RAYMUNDO-D1 and distal RCA 08/12/18 RAYMUNDO LAD 11/25/2002 PCI-RAYMUNDO-D1 w/2.5 x 12 Elunir 05/06/19 ; [id number]-Nsozwj RCA w/ 2.50 x 20 mm Synergy Stent and Cutting Balloon Angioplasty to ISR of Prox RCA 09/26/20 History of back surgery Z98.890 lumbar in 2013, 2014 History of delivery Z98.891 History of cholecystectomy Z90.49 History of dilatation and curettage Z98.890 History of left heart catheterization Onset Date: 10/08/20 Z98.890 10/18/2019, 10/08/2020 History of tonsillectomy and adenoidectomy Z98.890 History of tubal ligation Z98.51 Surgical History: angioplasty - PTCA ?4 at [facility], cholecystectomy, - - 7-8 stents in the past, 2 back surgeries with hardware of the lumbar spine, carpal tunnel, tonsils, section, bilateral tubal ligation, I&D of breast abscesses, cervical conization Psychiatric History: Anxiety, Depression 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 Gopal Harrell MD) Mother Cancer Father Hypertension COPD (chronic obstructive pulmonary disease) Daughter Factor V deficiency Grandmother Cancer COPD (chronic obstructive pulmonary disease) History Items: Cancer, Diabetes, Heart Disease, Hypertension Paternal Family History: Family History (Last Reviewed 10/21/20 @ 02:[address] Gopal Harrell MD) Mother Cancer Father Hypertension COPD (chronic obstructive pulmonary disease) Daughter Factor V deficiency Grandmother Cancer COPD (chronic obstructive pulmonary disease) History Items: Diabetes, Heart Disease, Hypertension, Pulmonary Disease Review of Systems Constitutional: Denies: Chills, Fever, Weight Change HEENT: Denies: Head Aches, Sinus Congestion, Sinus Drainage Cardiovascular: Denies: Chest Pain, Palpitations Respiratory: Reports: Shortness of Breath. Denies: Cough, Sputum production Gastrointestinal: Reports: Nausea, Vomiting. Denies: Abdominal Pain Genitourinary: Denies: Dysuria Musculoskeletal: Denies: Joint Pain, Joint Tenderness Skin: Denies: Rash, Wounds Neurological: Denies: Numbness, Tingling, Focal weakness Psychiatric: Denies: Anxiety, Depression, Homicidal Ideations, Suicidal Ideations Hematologic/ Lymphatic: Denies: Easy Bruising, Easy Bleeding VTE Information - Inpt Only VTE Present on Admission: No VTE Mechan Device Prophylaxis: None VTE Pharm Prophylaxis ordered?: Yes Patient Problems: Active and Suspected Problems (Last Reviewed 10/21/20 @ 02:[address] Gopal Harrell MD) ST elevation myocardial infarction (STEMI) of inferior wall (Acute) Sinus bradycardia by electrocardiogram (Acute) - Physical Exam Vitals/I&O's: Vital Signs Temp Pulse Resp BP Pulse Ox 97.8 F 57 L 20 H 172/94 H 100 10/20/20 19:00 10/20/20 19:00 10/20/20 19:00 10/20/20 19:00 10/20/20 19:00 Oxygen Delivery Method Nasal Cannula Weight: 143.1 kg Body Mass Index (BMI) 52.4 Finger Stick Blood Glucose 328 General: Alert, Oriented x3, Cooperative, - - In acute distress secondary to chest pain HEENT: Atraumatic, PERRLA, EOMI, Normocephalic Neck: Supple, No JVD, Negative Carotid Bruits Lungs: Clear to auscultation, Normal air movement Cardiovascular: Normal S1, Normal S2, No murmurs, Bradycardic Abdomen: Bowel Sounds Present, Soft, Non Tender Extremities: No edema, Capillary Refill Less than 3 Seconds Skin: No rashes, No breakdown Musculoskeletal: No Tenderness to Palpation of Joints or Extremities Neurological: Cranial nerves II-XII grossly intact Psych/Mental Status: Normal Affect, Appropriate Current Medications Ondansetron HCl (Ondansetron 4 Mg/2 Ml Vial) 4 mg IV X1 ONE Stop: 10/20/20 19:12 Assessment/Plan All Active Problems (Last Reviewed 10/21/20 @ 02:[address] Gopal Harrell MD) ST elevation myocardial infarction (STEMI) of inferior wall (Acute) Sinus bradycardia by electrocardiogram (Acute) NSTEMI (non-ST elevated myocardial infarction) (Resolved) Chest pain (Resolved) Exertional chest pain (Resolved) The patient is a 45 year old F with a significant history of CAD status post stent; hypertension; hyperlipidemia; diabetes mellitus; obstructive sleep apnea who presents emergency department with excruciating progressively worsening substernal sharp chest heaviness that started about half and hour prior to presentation and found to have STEMI. STEMI/sinus bradycardia Actual EKG tracing at the emergency department was reviewed. EKG showed inferior ST elevations. Reportedly received ASA by the paramedics. Took home Brilinta but given extra dose of Brilinta at the ED package recommendation. Given heparin at the ED Patient was taken to the Laboratory Animal Care Veterinarian where he had a PTCA with reduction of stenosis in RCA and RPDA. After Laboratory Animal Care Veterinarian patient will be admitted to the intensive care unit. Aspirin and Brilinta continued. Carvedilol and lisinopril dose adjusted by cardiology. High intensity statin continued. Troponin was ordered at the emergency department and trended.. Troponin returned to be severely elevated. Cardiology is following. Diabetes mellitus Patient with hyperglycemia on presentation Accu-Chek QA [facility] with correction scale insulin ordered. Adjust home prandial and long acting insulin Hypertension Blood pressure is not within goal Carvedilol and lisinopril dose adjusted by cardiology. Placed on either glycerin drip by cardiology. Discussed with cardiology. Will resume Imdur. Stop nitroglycerin drip after resuming them though. Trend blood pressure and adjust blood pressure medications as necessary. Morbid BMI:50.5. Complicates care. Lifestyle modification recommended. 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 DVT prophylaxis Subcutaneous Lovenox ordered. Inpatient E&M: 89261 Init Hosp L3
--- NOTE | 2020-10-20 19:12 | RAD_ITS ---
STUDY: X-RAY CHEST REASON FOR EXAM: Female, 45 years old. Chest pain TECHNIQUE: Frontal view COMPARISON: 10/07/2020. FINDINGS: The lungs are clear and expanded. There is no demonstrated pleural abnormality. Normal size heart. Normal mediastinum and larisa. Normal visualized pulmonary arteries. Normal visualized aortic arch and descending thoracic aorta. Normal visualized thoracic spine. Normal visualized ribs, clavicles, and shoulders. There is no demonstrated abnormality of the visualized soft tissue structures of the upper abdomen. RAD/Chest 1 View (Portable) IMPRESSION: Normal x-ray examination of the chest. Electronically Signed: Donald Ruvalcaba DO at 20:29 EDT Tel [phone], Service support ,
[2020-10-20] MEDS: Ondansetron 4 MG/2 ML Vial IV (19:15)
[2020-10-20] MEDS: DiphenhydrAMINE 50 MG/ML Syringe 12.5 MG IV (19:20)
[2020-10-20] MEDS: Morphine 2 MG/ML Syringe IV ×2 (19:20→22:49)
--- NOTE | 2020-10-20 19:20 | CM.ED ---
SOCIAL WORK STEMI Alert Patient's present and escorted to Customer Support Consultant. Emotional support and active listening provided. Adair Rosado, GOLF CLUB HEAD INSPECTOR, ADJUNCT INSTRUCTOR
[2020-10-20] MEDS: Aspirin 81 MG TAB.CHEW 162 MG PO (19:22)
--- NOTE | 2020-10-20 20:52 | EKG12_ITS ---
Test Reason : CHEST PAIN Blood Pressure : / mmHG Vent. Rate : 092 BPM Atrial Rate : 092 BPM P-R Int : 196 ms QRS Dur : 078 ms QT Int : 388 ms P-R-T Axes : 036 -14 -10 degrees QTc Int : 479 ms Normal sinus rhythm Inferior infarct , age undetermined Abnormal ECG Confirmed by TACOS SILVA, LACEY ([id number]), greeting card editor DAVID GAGNON ([id number]) on 10/24/2020 1:25:57 PM Referred By: Sachin Bangura Confirmed By:LACEY BALDERRAMA MD
--- NOTE | 2020-10-20 20:56 | PCI.CARDCATH ---
PCI Cardiac Cath Report PCI Report: Procedure performed; 1. Successful PTCA of acute distal in-stent thrombosis with predilatation And use of multiple balloon inflation, 3 x 20 mm NC balloon and reduction of stenosis from 100% to 0% and achievement of LIAT flow from LIAT 0 to LIAT III flow in the RCA. #2 successful PTCA of mid RPDA using balloon 2 x 15 mm. Reduction of stenosis from 70% to 20% and LIAT-3 flow in the RPDA Preprocedure diagnosis: 45-year-old patient very complex history multiple cardiac catheterization last cardiac catheterization was here at [facility] done Patient had stent of the RCA up to the distal RCA patient has multiple balloon inflations and also had 3 x 10 warfarin Cutting Balloon in the proximal RCA No presenting with symptoms of severe retrosternal chest pain to the ER with change in the EKG with ST elevation in the inferior. Patient was given heparin, Brilinta aspirin in the ER and was brought as an emergency to the cardiac catheterization. Review of the angiogram which was done in September 26 showed left main mild luminal irregularity LAD ostial had around 30% stenosis Circumflex artery had around 25% proximal stenosis. And 11 echogram showed ejection fraction of around 55%. She had significant in-stent restenosis on the last angiogram involving the proximal RCA 70% in-stent, distal RCA 80% in the right PDA around 70 to 80% Consent; Risk-benefit of procedure explained in detail to the patient informed consent obtained Moderate sedation; Patient was sedated with intravenous Versed and morphine. Access obtained from the right radial artery with placement of 6 Gabonese sheath, 6 Gabonese JR4 guide catheter used. Prior to that patient was given lidocaine into the right radial artery area Following placement of the sheath patient was given a cocktail of 3000 heparin, 200 mcg of nitro, 2.5 verapamil. Interventional plan; Initially proceed with the 6 Gabonese JL4 guide catheter and angiographic view obtained showed clearly occluded distal RCA stent Then we proceed with the 2 wires we used a run-through wire and also we used BMW 0.014 BMW universal straight 190 cm well and 0.014 run-through extra floppy 180 cm straight wire. We crossed the lesion the wire was placed in the distal RPDA Then will proceed with balloon dilatation initially was stopped with a 12 mm, balloon followed by 2.5 x 15 m, with NC balloon and followed by 3 x 20 NC balloon We performed multiple balloon inflation. To proximal, mid and distal RCA prior to the bifurcation There was a lesion at the midportion of the RPDA and we used 2 x 15 mm balloon. Anticoagulation use is heparin and also start the patient on Integrilin 2 boluses and 2 mcg of Integrilin. The closing ACT is 276 and patient started on Integrilin infusion. Following this TR band applied to right radial artery area with no complication Conclusion recommendation; Patient presented with the STEMI acute inferior NM with acute distal RCA in-stent restenosis Patient advised to continue on the dual antiplatelet therapy which is Brilinta and low-dose aspirin. Also patient continues to smoke and advised cessation of smoking. There is no complication in the Network Account Manager. Sachin Bangura MD,FACC,[facility]
[2020-10-20 21:07] LABS: Absolute Lymphocyte Count 2.99 X10^3/uL (0.83-4.51); Absolute Neutrophil Count 6.6 X10^3/uL (2.0-7.7); Basophil# 0.08 X10^3/uL; Basophil% 0.7 % (0-1); Eosinophil# 0.32 X10^3/uL; Eosinophils% 2.9 % (0-5); Hematocrit 38.8 % (37-47); Hemoglobin 13.2 g/dL (12.0-15.0); Lymphocyte # 2.99 X10^3/ul (0.83-4.51); Lymphocyte % 27.3 % (19-41); Mean Corpuscular Hgb 31.7 pg (27.0-32.0); Mean Corpuscular Volume 93.3 fL (81-99); Mean Platelet Vol. 10.2 fl (6.2-12.0); Monocyte# 0.91 X10^3/uL; Monocyte% 8.3 % (0-10); NRBC Flagged by Analyzer 0 % (0-5); Neutrophil # 6.61 X10^3/uL (2.7-7.7); Neutrophil % 60.3 % (47-70); Platelet Count 320 K/mm3 (150-450); RBC Distribution Width CV 12.3 % (11.6-14.6); RBC Distribution Width SD 42.6 fl (35.1-43.9); Red Blood Count 4.16 M/mm3 (4.2-5.4)
[2020-10-20 21:13] LABS: International Normalized Ratio 1.2; Prothrombin Time (Protime)PT. 14.1 SECONDS (11.7-14.9)
[2020-10-20 21:42] LABS: Partial Thromboplast Time 177.4 Seconds (24.1-36.2)
[2020-10-20] MEDS: 0.9% Normal Saline 1,000 ML 75 ML IV (21:44)
[2020-10-20 22:09] LABS: Anion Gap 7 (5-15); BUN 11 mg/dL (7-18); BUN/Creat Ratio 18.8 RATIO (10-20); Calcium,Total 8.4 mg/dL (8.5-10.1); Chloride 104 mmol/L (98-107); Creatinine, Serum 0.58 mg/dL (0.55-1.02); EST Glomerular Filtration Rate 117 mL/min (>60); Est Glom Filt Rate - Afr Amer 142 mL/min (>60); Glucose 248 mg/dL (74-106); Potassium 3.2 mmol/L (3.5-5.1); Sodium Level 135 mmol/L (136-145)
[2020-10-20] MEDS: ALPRAZolam 0.5 MG Tablet 1 MG PO (22:46)
[2020-10-20] MEDS: Atorvastatin Calcium 40 MG Tablet PO (22:46)
[2020-10-21] VITALS (32 sets, daily range): BP systolic 120–168; BP diastolic 71–113; PULSE 72–100; RESP 12–20; TEMP 36.2–36.9; O2SAT 94–99
[2020-10-21] MEDS: Nitroglycerin Infusion 250 ML 3 MG CONT INF (00:26)
[2020-10-21] MEDS: Lisinopril 5 MG Tablet PO ×2 (00:26→08:00)
--- NOTE | 2020-10-21 01:29 | EKG12_ITS ---
Test Reason : POST CATH Blood Pressure : / mmHG Vent. Rate : 093 BPM Atrial Rate : 093 BPM P-R Int : 236 ms QRS Dur : 080 ms QT Int : 364 ms P-R-T Axes : 049 -12 -06 degrees QTc Int : 452 ms Sinus rhythm with 1st degree A-V block Inferior infarct , age undetermined Abnormal ECG Confirmed by TACOS SILVA, LACEY ([id number]), publications editor GEORGE WONG ([id number]) on 10/25/2020 1:54:36 PM Referred By: Sachin Bangura Confirmed By:LACEY BALDERRAMA MD
[2020-10-21] MEDS: oxyCODONE 5 MG Tablet PO ×4 (02:00→20:23)
[2020-10-21] MEDS: Potassium Chloride Oral Tablet 20 MEQ 60 MEQ PO (02:52)
[2020-10-21] MEDS: Carvedilol 3.125 MG TABLET PO ×2 (08:00→21:07)
[2020-10-21] MEDS: Aspirin 81 MG TAB.CHEW PO (08:01)
[2020-10-21] MEDS: TICAGRELOR 90 MG TABLET PO ×2 (08:01→21:11)
[2020-10-21] MEDS: Ranolazine 500 MG Tablet PO ×2 (08:04→21:11)
[2020-10-21] MEDS: Venlafaxine XR 37.5 MG Capsule PO (08:05)
[2020-10-21] MEDS: hydrALAZINE 50 MG Tablet PO ×2 (08:06→21:07)
[2020-10-21] MEDS: buPROPion (XL) 150 MG TABLET.XL PO (08:06)
[2020-10-21] MEDS: Pantoprazole Sodium 40 MG Tablet PO (08:06)
[2020-10-21] MEDS: buPROPion (XL) 300 MG TABLET.XL PO (08:08)
[2020-10-21 08:16] LABS: Bedside Glucose 118 mg/dL (70-110)
[2020-10-21] MEDS: 0.9% Normal Saline 1,000 ML 75 ML IV (09:51)
--- NOTE | 2020-10-21 10:07 | PN.CARD_ITS ---
Objective: Vital Signs Temp Pulse Resp BP Pulse Ox 97.2 F L 89 16 150/90 H 96 10/21/20 08:00 10/21/20 09:00 10/21/20 09:00 10/21/20 09:00 10/21/20 09:00 Oxygen Flow Rate (L/min) 2 Oxygen Delivery Method Room Air Weight: 309 lb 1.409 oz Body Mass Index (BMI) 50.5 Finger Stick Blood Glucose 328 Intake and Output for Last 24 Hours 10/19/20 10/20/20 10/21/20 23:59 23:59 23:59 Intake Total 34.35 / 34.35 2187.42 / 2187.42 Balance 34.35 / 34.35 2187.42 / 2187.42 General: Healthy Appearing, Oriented x 3, Cooperative Oral: Moist Mucosa Neck: Supple Lungs: Clear to auscultation Cardiovascular: Regular Rhythm, Normal S1, Normal S2, No Murmurs, No Rubs, No Gallops Abdomen: Bowel Sounds Present, Soft, Non Tender Extremities: No Cyanosis, No Clubbing, No edema Neurological: No Focal Motor or Sensory Deficit 10/20/20 20:16: WBC 11.0, RBC 4.16 L, Hgb 13.2, Hct 38.8, MCV 93.3, MCH 31.7, MCHC 34.0, Plt Count 320, MPV 10.2, Immature Gran % (Auto) 0.500, Neut % (Auto) 60.3, Lymph % (Auto) 27.3, Braxton % (Auto) 8.3, Eos % (Auto) 2.9, Baso % (Auto) 0.7, Absolute Neuts (auto) 6.6, Nucleated RBC % 0 10/20/20 20:16: PT 14.1, INR 1.2, APTT 177.4 H* 10/20/20 20:16: Sodium 135 L, Potassium 3.2 L, Chloride 104, Carbon Dioxide 24.0, Anion Gap 7, BUN 11, Creatinine 0.58, Est GFR (MDRD) Af Amer 142, Est GFR (MDRD) Non-Af 117, BUN/Creatinine Ratio 18.8, Glucose 248 H, Calcium 8.4 L, Troponin I 70.900 H* 10/20/20 23:30: Troponin I 150.000 H* 10/21/20 02:45: Troponin I 127.000 H* Rhythm: Normal sinus EKG: STEMI/acute inferior MA Medical Necessity - Tobacco Use Smoking Status: Current every day smoker Assessment/Plan 45 year-old patient seen and evaluated at bedside I discussed with the nursing staff She been stable clinically she does not have any symptoms of chest pain to report and hemodynamically stable Review of the personnel monitor showed normal sinus Patient presentation is a STEMI/acute inferior MA with occluded distal RCA stent Underwent PTCA of the distal RCA as well as the proximal RCA Assessment and plan and recommendations; 1. Patient advised cessation of smoking, to continue current medication. Patient can be transferred to PCU 2. 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
--- NOTE | 2020-10-21 10:13 | PCM.PN.HOSP ---
Patient Problems: Active and Suspected Problems (Last Reviewed 10/21/20 @ 02:[address] Gopal Harrell MD) ST elevation myocardial infarction (STEMI) of inferior wall (Acute) Sinus bradycardia by electrocardiogram (Acute) Subjective: No further chest pain but pain still in her left upper extremity but overall improved. Patient is feels weak overall. Vitals/I&O's: Vital Signs Temp Pulse Resp BP Pulse Ox 36.2 C L 89 16 150/90 H 96 10/21/20 08:00 10/21/20 09:00 10/21/20 09:00 10/21/20 09:00 10/21/20 09:00 Oxygen Flow Rate (L/min) 2 Oxygen Delivery Method Room Air Weight: 140.2 kg Body Mass Index (BMI) 50.5 Finger Stick Blood Glucose 328 Intake and Output for Last 24 Hours 10/19/20 10/20/20 10/21/20 23:59 23:59 23:59 Intake Total 34.35 / 34.35 2187.42 / 2187.42 Balance 34.35 / 34.35 2187.42 / 2187.42 General: Alert, No apparent distress HEENT: Atraumatic, Normocephalic Neck: No Nodes, Thyroid Normal Size and Texture Lungs: Clear to auscultation, Normal air movement, No rhonchi, No wheeze, No rales Cardiovascular: Regular rate, Regular Rhythm, Normal S1, Normal S2, No murmurs Abdomen: Bowel Sounds Present, Soft, Non Tender, Non-Distended, No Hepato-splenomegaly Extremities: No edema, No Calf Tenderness Laboratory Results 10/20/20 20:16: WBC 11.0, RBC 4.16 L, Hgb 13.2, Hct 38.8, MCV 93.3, MCH 31.7, MCHC 34.0, RDW Std Deviation 42.6, RDW Coeff of Whitney 12.3, Plt Count 320, MPV 10.2, Immature Gran % (Auto) 0.500, Neut % (Auto) 60.3, Lymph % (Auto) 27.3, Trigg % (Auto) 8.3, Eos % (Auto) 2.9, Baso % (Auto) 0.7, Absolute Neuts (auto) 6.6, Absolute Lymphs (auto) 2.99, Nucleated RBC % 0 10/20/20 20:16: PT 14.1, INR 1.2, APTT 177.4 H* 10/20/20 20:16: Sodium 135 L, Potassium 3.2 L, Chloride 104, Carbon Dioxide 24.0, Anion Gap 7, BUN 11, Creatinine 0.58, Estim Creat Clear Calc 107.90, Est GFR (MDRD) Af Amer 142, Est GFR (MDRD) Non-Af 117, BUN/Creatinine Ratio 18.8, Glucose 248 H, Calcium 8.4 L, Troponin I 70.900 H* 10/20/20 23:30: Troponin I 150.000 H* 10/21/20 02:45: Troponin I 127.000 H* 10/21/20 07:52: POC Glucose 118 H Current Medications Albuterol Sulfate (Albuterol 2.5 Mg/3 Ml Vial.Neb.) 2.5 mg INHALATION Q6HWA.RT [facility] Alprazolam (Alprazolam 0.5 Mg Tablet) 1 mg PO QHS PRN PRN Reason: INSOMNIA Last Admin: 10/20/20 22:46 Dose: 1 mg Documented by: Aspirin (Aspirin 81 Mg Tab.Chew) 81 mg PO DAILY@0800 [facility] Last Admin: 10/21/20 08:01 Dose: 81 mg Documented by: Atorvastatin Calcium (Atorvastatin Calcium 80 Mg Tablet) 80 mg PO QHS [facility] Budesonide (Budesonide Respules 0.5 Mg/2 Ml Ampul.Neb.) 0.5 mg INHALATION Q12H.[facility] Bupropion HCl (Bupropion (Xl) 150 Mg Tablet.Xl) 150 mg PO DAILY [facility] Last Admin: 10/21/20 08:06 Dose: 150 mg Documented by: Bupropion HCl (Bupropion (Xl) 300 Mg Tablet.Xl) 300 mg PO DAILY [facility] Last Admin: 10/21/20 08:08 Dose: 300 mg Documented by: Carvedilol (Carvedilol 3.125 Mg Tablet) 3.125 mg PO BID [facility] Last Admin: 10/21/20 08:00 Dose: 3.125 mg Documented by: Dextrose (Dextrose 50%-Water 25 Gm/50 Ml Disp.Syrin) 0 gm IV X1 PRN; Protocol PRN Reason: Hypoglycemia Enoxaparin Sodium (Enoxaparin 40 Mg/0.4 Ml Syringe) 40 mg SC BID LUIS Glucagon (Glucagon 1 Mg/Ml Syringe) 1 mg IM .X1 PRN PRN Reason: Hypoglycemia Hydralazine HCl (Hydralazine 50 Mg Tablet) 50 mg PO BID [facility] Last Admin: 10/21/20 08:06 Dose: 50 mg Documented by: Sodium Chloride () 1,000 mls @ 75 mls/hr IV .[id number] [facility] Last Admin: 10/21/20 09:51 Dose: 75 mls/hr Documented by: Sodium Chloride () 250 mls @ 15 mls/hr IV .[id number] PRN PRN Reason: Saline Flush Sodium Chloride () 250 mls @ 15 mls/hr IV .[id number] PRN PRN Reason: Additional IVPB Infusion Nitroglycerin/Dextrose () 250 mls @ 3 mls/hr CONT INF .[id number] [facility]; Protocol Last Titration: 10/21/20 09:00 Dose: 10 mcg/min, 6 mls/hr Documented by: Insulin Human Lispro (Insulin Lispro 100 Unit/Ml Insuln.Pen) 0 unit SC ACHS [facility]; Protocol Last Admin: 10/21/20 07:53 Dose: Not Given Documented by: Insulin Human Lispro (Insulin Lispro 100 Unit/Ml Insuln.Pen) 14 unit SC TIDAC [facility] Last Admin: 10/21/20 07:53 Dose: Not Given Documented by: Insulin Human NPH (Insulin Nph Human 100 Units/Ml Pen) 28 units SC BIDAC [facility] Last Admin: 10/21/20 07:53 Dose: Not Given Documented by: Isosorbide Mononitrate (Isosorbide Mononitrate 60 Mg Tablet) 60 mg PO DAILY [facility] Levothyroxine Sodium (Levothyroxine 25 Mcg Tablet) 25 mcg PO DAILY@0600 [facility] Levothyroxine Sodium (Levothyroxine 100 Mcg Tablet) 200 mcg PO DAILY@0600 [facility] Lisinopril (Lisinopril 5 Mg Tablet) 5 mg PO DAILY [facility] Last Admin: 10/21/20 08:00 Dose: 5 mg Documented by: Oxycodone HCl (Oxycodone 5 Mg Tablet) 5 mg PO Q6H PRN PRN PRN Reason: Pain Score 6-10 Last Admin: 10/21/20 08:08 Dose: 5 mg Documented by: Pantoprazole Sodium (Pantoprazole Sodium 40 Mg Tablet) 40 mg PO DAILY [facility] Last Admin: 10/21/20 08:06 Dose: 40 mg Documented by: Ranolazine (Ranolazine 500 Mg Tablet) 500 mg PO BID [facility] Last Admin: 10/21/20 08:04 Dose: 500 mg Documented by: Sodium Chloride (0.9% Saline Lock 10 Ml Syringe) 10 - 40 ml IV UD PRN PRN Reason: SALINE FLUSH Ticagrelor (Ticagrelor 90 Mg Tablet) 90 mg PO BID [facility] Last Admin: 10/21/20 08:01 Dose: 90 mg Documented by: Trazodone HCl (Trazodone 50 Mg Tablet) 50 mg PO QHS PRN PRN PRN Reason: SLEEP Venlafaxine HCl (Venlafaxine Xr 37.5 Mg Capsule) 37.5 mg PO DAILY [facility] Last Admin: 10/21/20 08:05 Dose: 37.5 mg Documented by: STROKE Vital Signs/Narrative: Vital Signs Temp Pulse Resp BP Pulse Ox 10/21/20 09:00 89 16 150/90 H 96 10/21/20 08:06 85 149/96 H 10/21/20 08:00 36.2 C L 92 15 149/96 H 94 10/21/20 07:39 87 15 150/97 H 95 10/21/20 07:13 86 10/21/20 06:56 95 Medical Necessity - Tobacco Use Smoking Status: Current every day smoker Assessment/Plan All Active Problems (Last Reviewed 10/21/20 @ 02:[address] Gopal Harrell MD) ST elevation myocardial infarction (STEMI) of inferior wall (Acute) Sinus bradycardia by electrocardiogram (Acute) NSTEMI (non-ST elevated myocardial infarction) (Resolved) Chest pain (Resolved) Exertional chest pain (Resolved) 45-year-old white female presents with escalation myocardial infarction due to an occluded RCA stent. Patient had balloon angioplasty. 1. STEMI Due to occluded distal RCA stent. Patient underwent PTCA of the distal RCA as well as a proximal RCA. Continue with ticagrelor and aspirin, lisinopril and carvedilol Troponins were 150 Echocardiogram ordered Debbie with Dr. Spence 2. Diabetes mellitus type 2 Fair control at this time Continue with NPH as well as prandial insulin. 3. Morbid obesity Complicates overall care and recovery. Follow-up with the bariatric program as outpatient 4. VTE prophylaxis with enoxaparin 5. Disposition: Anticipate another 24 to 48 hours in the hospital. Transfer out of the ICU to the progressive care unit. 6. Hypokalemia: Replace. Check magnesium level. Advised patient to get a Covid 19 vaccination. Patient is a high risk of COVID-19 associated complications given her medical comorbidities and morbid obesity. Inpatient E&M: 40825 Subs Hosp L2
[2020-10-21] MEDS: Isosorbide Mononitrate 60 MG Tablet PO (10:52)
[2020-10-21] MEDS: Enoxaparin 40 MG/0.4 ML Syringe SC ×2 (10:52→21:11)
[2020-10-21] MEDS: Insulin NPH Human 100 UNITS/ML PEN 28 UNITS SC (13:24)
[2020-10-21] MEDS: Insulin Lispro 100 UNIT/ML INSULN.PEN SC ×2 (13:24→17:48)
[2020-10-21] MEDS: Insulin Lispro 100 UNIT/ML INSULN.PEN 14 UNIT SC ×2 (13:25→17:49)
[2020-10-21 13:31] LABS: Bedside Glucose > 500 mg/dL (70-110)
[2020-10-21 17:46] LABS: Bedside Glucose 221 mg/dL (70-110)
[2020-10-21] MEDS: Albuterol 2.5 MG/3 ML VIAL.NEB. INHALATION (19:24)
[2020-10-21] MEDS: Budesonide Respules 0.5 MG/2 ML AMPUL.NEB. INHALATION (19:24)
[2020-10-21 21:06] LABS: Bedside Glucose 126 mg/dL (70-110)
[2020-10-21] MEDS: Atorvastatin Calcium 80 MG Tablet PO (21:11)
[2020-10-21] MEDS: ALPRAZolam 0.5 MG Tablet 1 MG PO (21:16)
[2020-10-22] VITALS (7 sets, daily range): BP systolic 136–178; BP diastolic 83–109; PULSE 93–103; RESP 16–18; TEMP 36.1–36.8; O2SAT 96–98
[2020-10-22] MEDS: oxyCODONE 5 MG Tablet PO ×2 (03:44→10:08)
[2020-10-22 05:30] LABS: Hematocrit 38.3 % (37-47); Hemoglobin 12.7 g/dL (12.0-15.0); Mean Corp Hgb Conc 33.2 g/dL (32-36); Mean Corpuscular Hgb 32.2 pg (27.0-32.0); Mean Corpuscular Volume 97.2 fL (81-99); Platelet Count 303 K/mm3 (150-450); RBC Distribution Width CV 12.3 % (11.6-14.6); RBC Distribution Width SD 44.1 fl (35.1-43.9); Red Blood Count 3.94 M/mm3 (4.2-5.4); White Blood Count 9.5 K/mm3 (4.4-11.0)
[2020-10-22] MEDS: Levothyroxine 25 MCG TABLET PO (05:46)
[2020-10-22] MEDS: Levothyroxine 100 MCG Tablet 200 MCG PO (05:46)
[2020-10-22 05:50] LABS: Anion Gap 7 (5-15); BUN 10 mg/dL (7-18); BUN/Creat Ratio 23.1 RATIO (10-20); Calcium,Total 8.4 mg/dL (8.5-10.1); Chloride 103 mmol/L (98-107); Creatinine, Serum 0.43 mg/dL (0.55-1.02); EST Glomerular Filtration Rate 166 mL/min (>60); Est Glom Filt Rate - Afr Amer 201 mL/min (>60); Estimated Creatinine Clearance 145.54 ml/min; Glucose 274 mg/dL (74-106); Magnesium 1.6 mg/dL (1.6-2.6); Potassium 4.5 mmol/L (3.5-5.1); Sodium Level 135 mmol/L (136-145)
--- NOTE | 2020-10-22 08:13 | CRPHASE1 ---
Patient Communication PHII Cardiac Rehab Discussed with Patient:: Yes Guide to Cardiac Rehab Given to Patient:: Yes Cardiac Rehab Facility Choice List Given to Patient:: Yes Choice Program [facility] PHII:: Communication Given to CR, Refer to [facility] Dough Maker:: Sachin Bangura - DR. LACEY BALDERRAMA Refer Phase II Cardiac Rehab:: Yes Sessions:: 36 sessions - 2 days/wk, 18 weeks Cardiac Rehabilitation Info Cardiac Rehabilitation Program Information: Cardiac Rehabilitation is important for patients like you who are recovering from a heart problem. Cardiac rehabilitation programs are recognized as integral to the continued care of the patient with coronary heart disease. The cardiac rehabilitation program is designed to optimize a patient's physical, psychological, and social functioning. Health urgent care nurse practitioner work in cardiac rehabilitation programs and assist you with getting the treatments you need to get stronger and healthier - like exercise, healthy eating habits, and medications. Cardiac rehabilitation has been show to help people with heart problems live longer and have better life enjoyment than people who do not go to cardiac rehabilitation. Please contact the Cardiac Rehabilitation Program at [facility] at in two weeks if you have not heard from them.
--- NOTE | 2020-10-22 08:14 | CRPH1.INST_ITS ---
General Education CAD and cardiac anatomy and function:: Patient communicates acknowledgment Explanation of diagnoses and procedures:: Patient communicates acknowledgment Sign/Symptoms of ID:: Patient communicates acknowledgment Antiplatelet therapy: Patient communicates acknowledgment Proper use of NTG-SL: Patient communicates acknowledgment Emergency procedures and activation of EMS: Patient communicates acknowledgment Compliance of all prescribed medications: Patient communicates acknowledgment Smoking Patient Nicotine/Smoking Risk Factors Are:: Cigarettes Recommendations Include:: Smoking cessation strategies/Smoking packet, Second- hand smoke recommendation, Participation in a smoking cessation program Nicotine/Smoking Response Code:: Patient communicates acknowledgment, Needs reinforcement Dyslipidemia Patient Dyslipidemia Risk Factors Are:: Total Cholesterol, Triglycerides, HDL, LDL Recommendations Include:: Lipid profile provided, Reviewed NCEP/ATP guidelines, Therapeutic Lifestyle Change dietary guidelines Dyslipidemia Response Code:: Patient communicates acknowledgment Overweight/Obesity Patient Overweight/Obesity Risk Factors Are:: Obesity - > or = 30 - MORBID OBESITY BMI 51 Recommendations Include:: Weight loss of 5-10%, Reduced calorie diet, Exercise 5-7 times/week Overweight/Obesity:: Patient communicates acknowledgment, Needs reinforcement Hypertension Recommendations Include:: Maintain BP <130/85, BP <130/80 if diabetic, DASH dietary guidelines, Decrease/maintain normal body weight Hypertension:: Patient communicates acknowledgment, Needs reinforcement Heart Disease Patient Heart Disease Risk Factors Are:: Family history of heart disease < 65 years old, Previous cardiac event Recommendations Include:: Educated family members of their risk, Educated family members of importance of prevention of heart disease Heart Disease Response Code:: Patient communicates acknowledgment Diabetes Patient Diabetes Risk Factors Are:: Elevated blood sugars Recommendations Include:: Maintain fasting blood sugars 70-110 md/dL, Maintain HgbA1c of 6% or less, Monitor blood sugar as prescribed, Diabetic dietary guidelines, Decrease/maintain body weight Diabetes:: Patient communicates acknowledgment, Needs reinforcement Metabolic Syndrome Patient Metabolic Syndrome Risk Factors Are [3 of 5]:: Fasting blood sugar > 100 mg/dL, Waist circumference > 35 [female] or 40 [male], High triglyceride >150, Hypertension, Low HDL <40 [male] or < 50 [female] Recommendations Include:: Reinforce compliance to risk factor modifications, Patient is diabetic, Encouraged follow-up with Primary Care Physician Metabolic Syndrome Response Code:: Patient communicates acknowledgment, Needs reinforcement Sedentary Patient Sedentary Risk Factors Are:: Lack of regular exercise Recommendations Include:: Benefits of regular exercise, Discussed home walking program, Monitored Outpatient Cardiac Rehab Sedentary Response Code:: Patient communicates acknowledgment, Needs reinforcement
[2020-10-22] MEDS: Pantoprazole Sodium 40 MG Tablet PO (08:15)
[2020-10-22] MEDS: Isosorbide Mononitrate 60 MG Tablet PO (08:15)
[2020-10-22] MEDS: hydrALAZINE 50 MG Tablet PO ×2 (08:15→13:03)
[2020-10-22] MEDS: buPROPion (XL) 300 MG TABLET.XL PO (08:15)
[2020-10-22] MEDS: Aspirin 81 MG TAB.CHEW PO (08:15)
[2020-10-22] MEDS: Carvedilol 3.125 MG TABLET PO (08:16)
[2020-10-22] MEDS: buPROPion (XL) 150 MG TABLET.XL PO (08:16)
[2020-10-22] MEDS: TICAGRELOR 90 MG TABLET PO (08:16)
[2020-10-22] MEDS: Lisinopril 5 MG Tablet PO ×2 (08:16→13:03)
[2020-10-22] MEDS: Venlafaxine XR 37.5 MG Capsule PO (08:16)
[2020-10-22] MEDS: Ranolazine 500 MG Tablet PO (08:16)
[2020-10-22] MEDS: Enoxaparin 40 MG/0.4 ML Syringe SC (08:18)
[2020-10-22] MEDS: Insulin NPH Human 100 UNITS/ML PEN 28 UNITS SC (08:56)
[2020-10-22] MEDS: Insulin Lispro 100 UNIT/ML INSULN.PEN 14 UNIT SC ×2 (08:57→11:42)
[2020-10-22] MEDS: Insulin Lispro 100 UNIT/ML INSULN.PEN SC ×2 (08:57→11:43)
[2020-10-22 09:31] LABS: Bedside Glucose 353 mg/dL (70-110)
--- NOTE | 2020-10-22 11:30 | CASEMGMT ---
Readmission chart review: Pt was admitted 09/25-09/27/20 for Chest Pain and had a PCI of distal RCA w/ RAYMUNDO and cutting balloon angioplasty to instent restonisis in proximal RCA. Pt was discharged on Brilinta. Pt then readmitted 10/08-10/09/20 for NSTEMI, had another heart cath where all stents appeared to be patent but there was mild in-stent stenosis but no high-grade obstructive lesions. Pt returned to [facility] ED on 10/20/20 for Chest pain radiating down left arm and was admitted as STEMI. Pt underwent PTCA of the distal RCA(occuded stent) as well as the proximal RCA. CM to follow for any further discharge planning/needs. Pt encouraged cessation of smoking and to continue current meds. Pt to f/u with cardiology at discharge. Vicki GRIJALVA CM
--- NOTE | 2020-10-22 11:31 | DS.PCM_ITS ---
Discharge Date and Diagnosis - Problem List Patient Problems: Active and Suspected Problems (Last Reviewed 10/21/20 @ 02:[address] Gopal Harrell MD) ST elevation myocardial infarction (STEMI) of inferior wall (Acute) Sinus bradycardia by electrocardiogram (Acute) Date of Admission: 10/20/20 Date of Discharge: 10/22/20 - Primary Discharge Diagnosis Acute Problems: Active Problems (Last Reviewed 10/21/20 @ 02:[address] Gopal Harrell MD) ST elevation myocardial infarction (STEMI) of inferior wall (Acute) Sinus bradycardia by electrocardiogram (Acute) - Secondary Discharge Diagnosis Chronic Problems: Chronic Problems (Last Reviewed 10/21/20 @ 02:[address] Gopal Harrell MD) History of percutaneous transluminal coronary angioplasty (Chronic ~10/20/20) Successful PTCA of acute distal in-stent thrombosis with predilatation And use of multiple balloon inflation, 3 x 20 mm NC balloon and reduction of stenosis from 100% to 0% and achievement of LIAT flow from ILAT 0 to LIAT III flow in the RCA; #2 successful PTCA of mid RPDA using balloon 2 x 15 mm. Reduction of stenosis from 70% to 20% and LIAT-3 flow in the RPDA per cardiac cath 10/20/20 Atherosclerotic heart disease of [place] coronary artery without angina pectoris (Chronic) History of coronary artery stent placement (Chronic 09/26/20) PCI-RAYMUNDO-LAD 11/25/2002; PCI-RAYMUNDO-RCA 04/18/2010; PCI-RAYMUNDO-D1 and distal RCA 08/12/18 RAYMUNDO LAD 11/25/2002 PCI-RAYMUNDO-D1 w/2.5 x 12 Elunir 05/06/19 ; [id number] RCA w/ 2.50 x 20 mm Synergy Stent and Cutting Balloon Angioplasty to ISR of Prox RCA 09/26/20 Essential hypertension (Chronic) Hypercholesterolemia (Chronic) Nicotine dependence (Chronic) Hospital Course and Treatment Imaging Results: 10/22/20 07:00 Echo Complete [ECHO] Routine Operations: None Summary of Care Provided: The patient is a 45-year-old white female presents with escalation myocardial infarction due to an occluded RCA stent. Patient had balloon angioplasty of distal RCA as well as proximal RCA. Subsequently patient was admitted in ICU. 1. STEMI due to occluded distal RCA stent. Continue with ticagrelor and aspirin, lisinopril and carvedilol Troponins were 150. Echo in August 2018 Interpretation Summary The estimated ejection fraction is 65 %. Stage 1 diastolic dysfunction. Mildly dilated right ventricle. Trivial tricuspid valve insufficiency. Trivial posterior pericardial effusion. There are no echocardiographic indications of cardiac tamponade. 2. Diabetes mellitus type 2, uncontrolled: Accu-Cheks fluctuates between 1 20- 300. Was admitted with more than 500 glucose. Patient's NPH insulin and prandial insulin was adjusted. 3. Morbid obesity Complicates overall care and recovery. Follow-up with the bariatric program as outpatient 4. Hypertension: Blood pressure is elevated. Patient on carvedilol 25 mg twice daily, isosorbide mononitrate 60 mg daily, lisinopril 40 mg daily. Blood pressure is controlled. 5. Hypokalemia and hypomagnesemia: Electrolytes were replaced. Repeat potassium and magnesium normal. Advised patient to get a Covid 19 vaccination. Patient is a high risk of COVID- 19 associated complications given her medical comorbidities and morbid obesity. Discharge medication reconciliation done. Discharge follow-up instructions completed. Discharge process discussed with the patient and all questions were answered to patient's satisfaction. Discharge plan discussed with bad work gatherer Dr. Miranda Total time spent, exact 35 minutes on discharge meds reconciliation, examination, coordination of care with nurses and ancillary staff, review of imaging and blood test and discussion with the patient on follow-up instructions Patient Problems: Active and Suspected Problems (Last Reviewed 10/21/20 @ 02:[address] Gopal Harrell MD) ST elevation myocardial infarction (STEMI) of inferior wall (Acute) Sinus bradycardia by electrocardiogram (Acute) Objective: Patient blood pressure was elevated in the morning 178/109. Antihypertensive dose increased and blood pressure last 07/06/1937/36. Physical exam General: Alert, Oriented x3, Cooperative, BMI 51.6 kg/m?, morbid obesity HEENT: Atraumatic, PERRLA, EOMI, Normocephalic Oral: No Gingival or Mucosal Lesions/ Ulcerations Neck: Supple, No JVD, Negative Carotid Bruits Lungs: Air entry diminished in bilateral lung bases. No crepitation/rhonchi Cardiovascular: Regular rate, Regular Rhythm, Normal S1, Normal S2, No murmurs Abdomen: Bowel Sounds Present, Soft, Non Tender, Non-Distended : No renal angle tenderness. No suprapubic tenderness. Extremities: No edema, Capillary Refill Less than 3 Seconds Skin: Mild petechial type rash on the dorsum of right hand. Right wrist cardiac cath access. No rashes, No breakdown Musculoskeletal: No Tenderness to Palpation of Joints or Extremities Neurological: Cranial nerves II-XII grossly intact, Deep Tendon Reflexes 2+/4 and Symmetrical, Neuro grossly intact Psych/Mental Status: Normal Affect, Appropriate. - Physical Exam Vitals/I&O's: Vital Signs Temp Pulse Resp BP Pulse Ox 97 F L 96 18 178/109 H 96 10/22/20 08:10 10/22/20 08:15 10/22/20 08:10 10/22/20 08:15 10/22/20 08:10 Oxygen Flow Rate (L/min) 2 Oxygen Delivery Method Room Air Weight: 310 lb 3.046 oz Body Mass Index (BMI) 50.5 Finger Stick Blood Glucose 328 Intake and Output for Last 24 Hours 10/20/20 10/21/20 10/22/20 23:59 23:59 23:59 Intake Total 34.35 / 34.35 3072.68 / 3572.68 1000 / 1000 Balance 34.35 / 34.35 3072.68 / 3572.68 1000 / 1000 Laboratory Results 10/21/20 13:20: POC Glucose > 500 H* 10/21/20 17:41: POC Glucose 221 H 10/21/20 21:02: POC Glucose 126 H 10/22/20 05:10: WBC 9.5, RBC 3.94 L, Hgb 12.7, Hct 38.3, MCV 97.2, MCH 32.2 H, MCHC 33.2, RDW Std Deviation 44.1 H, RDW Coeff of Whitney 12.3, Plt Count 303, MPV 10.0 10/22/20 05:10: Sodium 135 L, Potassium 4.5, Chloride 103, Carbon Dioxide 25.0, Anion Gap 7, BUN 10, Creatinine 0.43 L, Estim Creat Clear Calc 145.54, Est GFR (MDRD) Af Amer 201, Est GFR (MDRD) Non-Af 166, BUN/Creatinine Ratio 23.1 H, Glucose 274 H, Calcium 8.4 L, Magnesium 1.6 10/22/20 08:14: POC Glucose 353 H Current Medications Albuterol Sulfate (Albuterol 2.5 Mg/3 Ml Vial.Neb.) 2.5 mg INHALATION Q6HWA.RT [facility] Last Admin: 10/21/20 19:24 Dose: 2.5 mg Documented by: Alprazolam (Alprazolam 0.5 Mg Tablet) 1 mg PO QHS PRN PRN Reason: INSOMNIA Last Admin: 10/21/20 21:16 Dose: 1 mg Documented by: Aspirin (Aspirin 81 Mg Tab.Chew) 81 mg PO DAILY@0800 [facility] Last Admin: 10/22/20 08:15 Dose: 81 mg Documented by: Atorvastatin Calcium (Atorvastatin Calcium 80 Mg Tablet) 80 mg PO QHS [facility] Last Admin: 10/21/20 21:11 Dose: 80 mg Documented by: Budesonide (Budesonide Respules 0.5 Mg/2 Ml Ampul.Neb.) 0.5 mg INHALATION Q12H.RT [facility] Last Admin: 10/21/20 19:24 Dose: 0.5 mg Documented by: Bupropion HCl (Bupropion (Xl) 150 Mg Tablet.Xl) 150 mg PO DAILY [facility] Last Admin: 10/22/20 08:16 Dose: 150 mg Documented by: Bupropion HCl (Bupropion (Xl) 300 Mg Tablet.Xl) 300 mg PO DAILY [facility] Last Admin: 10/22/20 08:15 Dose: 300 mg Documented by: Carvedilol (Carvedilol 3.125 Mg Tablet) 3.125 mg PO BID [facility] Last Admin: 10/22/20 08:16 Dose: 3.125 mg Documented by: Dextrose (Dextrose 50%-Water 25 Gm/50 Ml Disp.Syrin) 0 gm IV X1 PRN; Protocol PRN Reason: Hypoglycemia Enoxaparin Sodium (Enoxaparin 40 Mg/0.4 Ml Syringe) 40 mg SC BID [facility] Last Admin: 10/22/20 08:18 Dose: 40 mg Documented by: Glucagon (Glucagon 1 Mg/Ml Syringe) 1 mg IM .X1 PRN PRN Reason: Hypoglycemia Hydralazine HCl (Hydralazine 50 Mg Tablet) 50 mg PO BID [facility] Last Admin: 10/22/20 08:15 Dose: 50 mg Documented by: Sodium Chloride () 250 mls @ 15 mls/hr IV .[id number] PRN PRN Reason: Saline Flush Sodium Chloride () 250 mls @ 15 mls/hr IV .[id number] PRN PRN Reason: Additional IVPB Infusion Insulin Human Lispro (Insulin Lispro 100 Unit/Ml Insuln.Pen) 0 unit SC ACHS [facility]; Protocol Last Admin: 10/22/20 08:57 Dose: 8 units Documented by: Insulin Human Lispro (Insulin Lispro 100 Unit/Ml Insuln.Pen) 14 unit SC TIDAC [facility] Last Admin: 10/22/20 08:57 Dose: 14 units Documented by: Insulin Human NPH (Insulin Nph Human 100 Units/Ml Pen) 28 units SC BIDAC [facility] Last Admin: 10/22/20 08:56 Dose: 28 units Documented by: Isosorbide Mononitrate (Isosorbide Mononitrate 60 Mg Tablet) 60 mg PO DAILY [facility] Last Admin: 10/22/20 08:15 Dose: 60 mg Documented by: Levothyroxine Sodium (Levothyroxine 25 Mcg Tablet) 25 mcg PO DAILY@0600 [facility] Last Admin: 10/22/20 05:46 Dose: 25 mcg Documented by: Levothyroxine Sodium (Levothyroxine 100 Mcg Tablet) 200 mcg PO DAILY@0600 [facility] Last Admin: 10/22/20 05:46 Dose: 200 mcg Documented by: Lisinopril (Lisinopril 5 Mg Tablet) 5 mg PO DAILY [facility] Last Admin: 10/22/20 08:16 Dose: 5 mg Documented by: Oxycodone HCl (Oxycodone 5 Mg Tablet) 5 mg PO Q6H PRN PRN PRN Reason: Pain Score 6-10 Last Admin: 10/22/20 10:08 Dose: 5 mg Documented by: Pantoprazole Sodium (Pantoprazole Sodium 40 Mg Tablet) 40 mg PO DAILY [facility] Last Admin: 10/22/20 08:15 Dose: 40 mg Documented by: Ranolazine (Ranolazine 500 Mg Tablet) 500 mg PO BID [facility] Last Admin: 10/22/20 08:16 Dose: 500 mg Documented by: Sodium Chloride (0.9% Saline Lock 10 Ml Syringe) 10 - 40 ml IV UD PRN PRN Reason: SALINE FLUSH Ticagrelor (Ticagrelor 90 Mg Tablet) 90 mg PO BID [facility] Last Admin: 10/22/20 08:16 Dose: 90 mg Documented by: Trazodone HCl (Trazodone 50 Mg Tablet) 50 mg PO QHS PRN PRN PRN Reason: SLEEP Venlafaxine HCl (Venlafaxine Xr 37.5 Mg Capsule) 37.5 mg PO DAILY [facility] Last Admin: 10/22/20 08:16 Dose: 37.5 mg Documented by: Home Medications: Medications to take at Discharge Albuterol Inhaler [Ventolin Hfa] 1 - 2 puff INHALATION Q4H PRN PRN #1 inhaler 10/15/15 Pantoprazole Sodium [Protonix] 40 mg PO DAILY 09/23/16 Ondansetron [Zofran Odt] 4 mg PO Q8H PRN PRN #10 tab 03/07/18 ALPRAZolam [Xanax] 1 mg PO QHS PRN 08/18/18 Carvedilol [Coreg (Beta Monisha)] 25 mg PO BID 05/04/19 Budesonide/Formoterol 160/4.5 [Symbicort 160/4.5 Mcg Inhaler (SP)] 2 puff PO BID 05/07/19 Insulin Regular, Human [Novolin R] 26 units SUBCUT TIDCM 05/07/19 cycloBENZAPRine HCl [Flexeril] 5 mg PO TID PRN PRN 07/19/19 traZODone [Desyrel] 50 mg PO QHS PRN PRN 07/19/19 Dulaglutide [Trulicity] 1.5 mg SQ TH 10/16/19 levothyroxine 200 mcg tablet 200 mcg PO DAILY tab 11/07/19 levothyroxine 25 mcg tablet 25 mcg PO DAILY 11/07/19 Bupropion HCl [Bupropion Xl] 150 mg PO DAILY 09/25/20 Bupropion HCl [Bupropion Xl] 300 mg PO DAILY 09/25/20 Desvenlafaxine Succinate [Pristiq] 50 mg PO DAILY 09/25/20 Atorvastatin Calcium [Lipitor] 80 mg PO QHS 10/08/20 Isosorbide Mononitrate [Imdur] 60 mg PO DAILY 10/08/20 Lisinopril [Zestril] 40 mg PO DAILY 10/08/20 hydrALAZINE [Apresoline] 50 mg PO BID 10/08/20 Ranolazine [Ranexa] 500 mg PO BID 10/20/20 Aspirin E.C. [Ecotrin] 81 mg PO DAILY@0800 #30 tablet 10/22/20 Insulin NPH Human [Humulin N Pen] 38 units SC BIDAC #0 10/22/20 Ticagrelor [Brilinta] 90 mg PO BID #60 tablet 10/22/20 Following Prescriptions Were Given to Patient: Ticagrelor [Brilinta] 90 mg PO BID #60 tablet Transmission Status: Received by [employer] [facility] Aspirin E.C. [Ecotrin] 81 mg PO DAILY@0800 #30 tablet Transmission Status: Received by [employer] [facility] Primary Care Physician: Carlotta Galindo MD [Primary Care Provider] - Medical Necessity - Tobacco Use Smoking Status: Current every day smoker Meaningful Use Info Meaningful Use Diagnoses (Choose all that apply): AMI - AMI/Post PCI/Angioplasty Aspirin given w/in 24hrs of arrival?: Yes ASA at discharge?: Yes Antiplatelet Therapy at Discharge:: Yes Statins at discharge?: Yes William/ARB at discharge?: Yes Beta Monisha at discharge?: Yes Done w/ Acute OK measure.: Yes Documented LVEF (%): 50 Inpatient E&M: 24250 Disch Hosp
--- NOTE | 2020-10-22 11:31 | DCINST_ITS ---
- Discharge Diagnoses Current Active Problems: Current Active and Chronic Problems (Last Reviewed 10/21/20 @ 02:[address] Gopal Harrell MD) ST elevation myocardial infarction (STEMI) of inferior wall (Acute) Sinus bradycardia by electrocardiogram (Acute) Atherosclerotic heart disease of [place] coronary artery without angina pectoris (Chronic) History of coronary artery stent placement (Chronic 09/26/20) PCI-RAYMUNDO-LAD 11/25/2002; PCI-RAYMUNDO-RCA 04/18/2010; PCI-RAYMUNDO-D1 and distal RCA 08/12/18 RAYMUNDO LAD 11/25/2002 PCI-RAYMUNDO-D1 w/2.5 x 12 Elunir 05/06/19 ; [id number] RCA w/ 2.50 x 20 mm Synergy Stent and Cutting Balloon Angioplasty to ISR of Prox RCA 09/26/20 Essential hypertension (Chronic) Hypercholesterolemia (Chronic) Nicotine dependence (Chronic) You will use the following diet at home:: Calorie/Carbohydrate Controlled (specify 1200, 1400, etc) - Carb controlled diet, Cardiac Your food should be the consistency of: Regular Discharge Activity: May Not Drive Weight Bearing Status: Weight bearing as tolerated Call your doctor if you observe: Fever of 101 or Higher, Inability to urinate, Inability to have a bowel movement, Using more than one pad per hour, Shortness of breath, Dizziness, Fainting spells, Swelling in the ankles, Chest pain, Prolonged hiccoughing, Increased palpitations (irregular heartbeat), Calf discomfort, Uncontrolled pain Allergies/Adverse Reactions: Allergies metformin [From Glucophage] Adverse Reaction (Intermediate, Verified 10/07/20 21:47) Diarrhea hydromorphone [From Dilaudid] Adverse Reaction (Verified 10/07/20 21:47) Itching morphine Adverse Reaction (Verified 10/07/20 21:47) Itching Medications to take at Discharge Albuterol Inhaler [Ventolin Hfa] 1 - 2 puff INHALATION Q4H PRN PRN #1 inhaler 10/15/15 Pantoprazole Sodium [Protonix] 40 mg PO DAILY 09/23/16 Ondansetron [Zofran Odt] 4 mg PO Q8H PRN PRN #10 tab 03/07/18 ALPRAZolam [Xanax] 1 mg PO QHS PRN 08/18/18 Carvedilol [Coreg (Beta Monisha)] 25 mg PO BID 05/04/19 Budesonide/Formoterol 160/4.5 [Symbicort 160/4.5 Mcg Inhaler (SP)] 2 puff PO BID 05/07/19 Insulin Regular, Human [Novolin R] 26 units SUBCUT TIDCM 05/07/19 cycloBENZAPRine HCl [Flexeril] 5 mg PO TID PRN PRN 07/19/19 traZODone [Desyrel] 50 mg PO QHS PRN PRN 07/19/19 Dulaglutide [Trulicity] 1.5 mg SQ TH 10/16/19 levothyroxine 200 mcg tablet 200 mcg PO DAILY tab 11/07/19 levothyroxine 25 mcg tablet 25 mcg PO DAILY 11/07/19 Bupropion HCl [Bupropion Xl] 150 mg PO DAILY 09/25/20 Bupropion HCl [Bupropion Xl] 300 mg PO DAILY 09/25/20 Desvenlafaxine Succinate [Pristiq] 50 mg PO DAILY 09/25/20 Atorvastatin Calcium [Lipitor] 80 mg PO QHS 10/08/20 Isosorbide Mononitrate [Imdur] 60 mg PO DAILY 10/08/20 Lisinopril [Zestril] 40 mg PO DAILY 10/08/20 hydrALAZINE [Apresoline] 50 mg PO BID 10/08/20 Ranolazine [Ranexa] 500 mg PO BID 10/20/20 Aspirin E.C. [Ecotrin] 81 mg PO DAILY@0800 #30 tablet 10/22/20 Insulin NPH Human [Humulin N Pen] 38 units SC BIDAC #0 10/22/20 Ticagrelor [Brilinta] 90 mg PO BID #60 tablet 10/22/20 The following prescriptions were given: Ticagrelor [Brilinta] 90 mg PO BID #60 tablet Transmission Status: Pending to [employer] [facility] Aspirin E.C. [Ecotrin] 81 mg PO DAILY@0800 #30 tablet Transmission Status: Pending to [employer] [facility] Primary Care Physician: Carlotta Galindo MD [Primary Care Provider] - Please follow up with your Primary Care Physician in: In 2 weeks Test Results: Test results from this visit will be discussed in further detail at your follow- up appointment, if applicable. Please Follow Up With: Wale Busby MD When: As scheduled Please Follow Up With: Eduardo Srinivasan DO When: In pulmonary clinic in 4 weeks
[2020-10-22 11:51] LABS: Bedside Glucose 300 mg/dL (70-110)
--- NOTE | 2020-10-22 13:43 | PHA.DC.MC ---
Addendum entered and electronically signed by Rebecca Valentine 10/22/20 13:45: This [facility] gave Brilinta card given to patient for the RN CM. Patient voiced understanding. Original Note: Pharmacy Service has performed discharge medication reconciliation and counseling for this patient. 1. ASPIRIN 81MG PO DAILYCM 2. TICAGRELOR 90MG PO BID The patient's discharge medication list was reviewed for discrepancies and discrepancies were resolved. Home Medications Albuterol Inhaler [Ventolin Hfa] 1 - 2 puff INHALATION Q4H PRN PRN #1 inhaler 10/15/15 Pantoprazole Sodium [Protonix] 40 mg PO DAILY 09/23/16 Ondansetron [Zofran Odt] 4 mg PO Q8H PRN PRN #10 tab 03/07/18 ALPRAZolam [Xanax] 1 mg PO QHS PRN 08/18/18 Carvedilol [Coreg (Beta Monisha)] 25 mg PO BID 05/04/19 Budesonide/Formoterol 160/4.5 [Symbicort 160/4.5 Mcg Inhaler (SP)] 2 puff PO BID 05/07/19 Insulin Regular, Human [Novolin R] 26 units SUBCUT TIDCM 05/07/19 cycloBENZAPRine HCl [Flexeril] 5 mg PO TID PRN PRN 07/19/19 traZODone [Desyrel] 50 mg PO QHS PRN PRN 07/19/19 Dulaglutide [Trulicity] 1.5 mg SQ TH 10/16/19 levothyroxine 200 mcg tablet 200 mcg PO DAILY tab 11/07/19 levothyroxine 25 mcg tablet 25 mcg PO DAILY 11/07/19 Bupropion HCl [Bupropion Xl] 150 mg PO DAILY 09/25/20 Bupropion HCl [Bupropion Xl] 300 mg PO DAILY 09/25/20 Desvenlafaxine Succinate [Pristiq] 50 mg PO DAILY 09/25/20 Atorvastatin Calcium [Lipitor] 80 mg PO QHS 10/08/20 Isosorbide Mononitrate [Imdur] 60 mg PO DAILY 10/08/20 Lisinopril [Zestril] 40 mg PO DAILY 10/08/20 hydrALAZINE [Apresoline] 50 mg PO BID 10/08/20 Ranolazine [Ranexa] 500 mg PO BID 10/20/20 Aspirin E.C. [Ecotrin] 81 mg PO DAILY@0800 #30 tablet 10/22/20 Insulin NPH Human [Humulin N Pen] 38 units SC BIDAC #0 10/22/20 Ticagrelor [Brilinta] 90 mg PO BID #60 tablet 10/22/20 The patient was counseled on the following discharge medications and changes in medications for homegoing were reviewed. The Reason for Use, instructions for use, and potential side effects were reviewed for all new medications. The patient's questions regarding all of their medications were answered. The patient was able to verbally demonstrate an understanding of their discharge medications.
--- NOTE | 2020-10-22 14:13 | CASEMGMT ---
Pt being sent home on Brilinta and pt provided with Brilinta month free savings card. Call to [employer] and per tech, pt's Rx coverage terminated on 10/03/20 and they have been using a discount card for pt. They also state pt received Brilinta script on 09/27/20 but a coupon card was not used at that time. This RN CM to room and pt states she has a new Rx plan but she doesn't think it starts until 11/03/20. Pt states she has been taking meds and checking sugars but pt has still been smoking. Pt urged to quit smoking and to be diligent about checking sugars and taking all meds, voices understanding. Pt states she has a working glucometer. Pt voices no further questions/concerns/needs. [place] RUDI NUNEZ
--- NOTE | 2020-10-23 14:41 | CASEMGMT ---
RUDI NUNEZ Discharge Follow-up Phone Call: DARIUS: 11 Strata: 3 Call Date: 10/23/20 Discharge Date: 10/22/20 Time of Call: 1442 Duration: 1 min Admitting Diagnosis: STEMI RN MAYRA attempted to complete follow-up phone call after recent hospitalization. No answer, voice message left with return contact information.
== END 2020-10-22 14:13 | disposition home or self-care (01) | DRG 251 ==
LOC: ED 19:19 → ICU 19:24 → PCU 10-21 17:52 → ICU 10-22 12:38
PROVIDERS: Admitting Provider Hospitalist; Emergency Provider Emergency Medicine; PCP Internal Medicine; Referring Provider Internal Medicine Interventional Cardiology; Visit Provider Internal Medicine
DX: I21.19 ST elevation (STEMI) myocardial infarction involving other coronary artery of inferior wall (principal); Z68.43 Body mass index [BMI] 50.0-59.9, adult; I25.10 Atherosclerotic heart disease of native coronary artery without angina pectoris; I10 Essential (primary) hypertension; E78.00 Pure hypercholesterolemia, unspecified; E87.6 Hypokalemia; E83.42 Hypomagnesemia; E11.65 Type 2 diabetes mellitus with hyperglycemia; E03.9 Hypothyroidism, unspecified; J44.9 Chronic obstructive pulmonary disease, unspecified; E66.01 Morbid (severe) obesity due to excess calories; F17.200 Nicotine dependence, unspecified, uncomplicated; I25.2 Old myocardial infarction; Z79.4 Long term (current) use of insulin; Z95.5 Presence of coronary angioplasty implant and graft; Z79.51 Long term (current) use of inhaled steroids; Z79.82 Long term (current) use of aspirin; Z79.02 Long term (current) use of antithrombotics/antiplatelets; Z79.890 Hormone replacement therapy; Z79.899 Other long term (current) drug therapy; Z82.49 Family history of ischemic heart disease and other diseases of the circulatory system
CPT/HCPCS: 71045; 80048; 82962; 83735; 84484; 85025; 85027; 85610; 85730; 92941; 93005; 93306; 93454; 93458; 94640; 99152; 99153; 99285; 99406; J7030; J7040; Q9957; Q9967; A4216; C1725; C1769; C1887; C1894; C9606; J1327; J2405

== ENCOUNTER 2021-01-08 17:38 | Emergency (ER) | payer MEDICARE, MEDICAID, SELFPAY ==
[2019-05-06 13:18] VITALS: BMI 56.7
[2020-10-20 21:08] VITALS: BMI 50.5
[2021-01-08 17:39] VITALS: BP 157/90; PULSE 83; RESP 19; TEMP 35.8; O2SAT 97; BMI 49.3
--- NOTE | 2021-01-08 17:47 | EDS_ITS ---
HPI History of Present Illness Chief Complaint: Dental Detail of Chief Complaint: Right upper dental pain and right facial swelling Informant: patient Narrative Narrative: Patient presents to the emergency department complaint of right upper dental pain x2 weeks. Patient states that she had a molar extracted about a year ago and thinks there might be small amount of bone left over as she can feel something and see something that may be a bone at the extraction site. Patient started having increased swelling over the last 2 to 3 days to the right side of her face. She denies fever. She called her dentist but cannot get in until February 10. Prior similar symptoms: No PFSH PFSH Medical History Asthma Atherosclerotic heart disease of [place] coronary artery without angina pectoris Chronic obstructive pulmonary disease Diabetes mellitus, type II Essential hypertension GERD (gastroesophageal reflux disease) History of anxiety Hypercholesterolemia Hypothyroidism Morbid obesity with BMI of 50.0-59.9, adult Nicotine dependence GEOVANI (obstructive sleep apnea) Sleep-disordered breathing Home Medications albuterol sulfate 1 - 2 puff INHALATION Q4H PRN PRN #1 inhaler 10/15/15 [Rx Last Taken 10/19/20] ondansetron 4 mg PO Q8H PRN PRN #10 tab 03/07/18 [Rx Last Taken 10/17/20] alprazolam 1 mg PO QHS PRN 08/18/18 [History Last Taken 10/19/20] budesonide-formoterol 2 puff PO BID 05/07/19 [History Last Taken 10/20/20] insulin regular human 26 units SUBCUT TIDCM 05/07/19 [History Last Taken 10/20/20] cyclobenzaprine 5 mg PO TID PRN PRN 07/19/19 [History Last Taken 10/13/20] trazodone 50 mg PO QHS PRN PRN 07/19/19 [History Last Taken 10/17/20] dulaglutide 1.5 mg SQ TH 10/16/19 [History Last Taken 10/16/20] bupropion HCl 150 mg PO DAILY 09/25/20 [History Last Taken 10/20/20] bupropion HCl 300 mg PO DAILY 09/25/20 [History Last Taken 10/20/20] desvenlafaxine succinate 50 mg PO DAILY 09/25/20 [History Last Taken 10/20/20] ranolazine 500 mg PO BID 10/20/20 [History Last Taken 10/19/20] insulin NPH isoph U-100 human 38 units SC BIDAC #0 10/22/20 [Rx Last Taken 10/20/20] aspirin 81 mg tablet,delayed release 81 mg PO DAILY@0800 #30 tablet 11/07/20 [Rx Last Taken Unknown] atorvastatin 80 mg tablet 80 mg PO QHS #30 tab 11/07/20 [Rx Last Taken Unknown] carvedilol 25 mg tablet 25 mg PO BID #60 tab 11/07/20 [Rx Last Taken Unknown] hydralazine 50 mg tablet 50 mg PO BID #90 tab 11/07/20 [Rx Last Taken Unknown] isosorbide mononitrate 60 mg tablet,extended release 24 hr 60 mg PO DAILY #30 tab 11/07/20 [Rx Last Taken Unknown] levothyroxine 200 mcg tablet 200 mcg PO DAILY #30 tab 11/07/20 [Rx Last Taken Unknown] levothyroxine 25 mcg tablet 25 mcg PO DAILY #30 tab 11/07/20 [Rx Last Taken Unknown] lisinopril 40 mg tablet 40 mg PO DAILY #30 tab 11/07/20 [Rx Last Taken Unknown] pantoprazole 40 mg tablet,delayed release 40 mg PO DAILY #30 tab 11/07/20 [Rx Last Taken Unknown] ticagrelor 90 mg tablet 90 mg PO BID #60 tablet 11/07/20 [Rx Last Taken Unknown] clindamycin HCl [Cleocin HCl] 300 mg PO Q6H #40 capsule 01/08/21 [Rx Last Taken Unknown] hydrocodone-acetaminophen 1 tab PO Q4H PRN PRN 2 Days #10 tablet 01/08/21 [Rx Last Taken Unknown] Allergy/AdvReac Type Severity Reaction Status Date / Time metformin [From Glucophage] AdvReac Intermediate Diarrhea Verified 01/08/21 17:51 hydromorphone [From Dilaudid] AdvReac Itching Verified 01/08/21 17:51 morphine AdvReac Itching Verified 01/08/21 17:51 Family History Mother Cancer lung Father Hypertension COPD (chronic obstructive pulmonary disease) Daughter Factor V deficiency Grandmother Cancer lung COPD (chronic obstructive pulmonary disease) Surgical History (Updated 10/22/20 @ 09:05 by Edwige Rowell) History of back surgery History of delivery History of cholecystectomy History of coronary artery stent placement (09/26/20) History of dilatation and curettage History of left heart catheterization (10/08/20) History of percutaneous transluminal coronary angioplasty (~10/20/20) History of tonsillectomy and adenoidectomy History of tubal ligation Social History (Updated 03/27/20 @ 16:[address] Columba Miranda MD) Smoking Status: Current every day smoker tobacco type: cigarettes alcohol intake: current alcohol intake frequency: holidays/special occasions only substance use type: does not use caffeine: Yes ROS ROS ED Constitutional Constitutional ED: Reports systems reviewed and no addt'l complaints, except as documented; Denies body ache(s), change in weight or chills Eyes Eyes: Denies acute decrease in peripheral vision, change in vision, double vision or loss of vision ENT ENT ED: Reports none and other Details: Right upper dental pain ; Denies ear pain, lip swelling, loss taste/smell, neck pain, otalgia or sore throat Cardiovascular Cardiovascular: Reports none; Denies abdominal pain, chest pain with activity, leg edema, lightheadedness, palpitations, rapid heart rate or syncope Respiratory/Chest Respiratory/Chest: Reports none; Denies change in mental status, dry cough, dyspnea, hemoptysis, shortness of breath at rest or shortness of breath with exertion Gastrointestinal Gastrointestinal: Reports none; Denies abdominal pain, change in stool character, diarrhea, hematemesis, hematochezia, melena, rectal bleeding or vomiting Genitourinary Genitourinary ED: Reports none; Denies abdominal discomfort, anuria, dysuria, genital pain or polyuria Musculoskeletal Musculoskeletal: Reports none; Denies arthralgias, back pain, difficulty walking, extremity pain, muscle weakness or myalgias Integumentary Reports none; Denies abscess or rash Neurologic Neurologic: Reports none; Denies abnormal gait, confusion, focal weakness, frequent falls, headache(s), loss of vision, numbness, paresthesias, radicular pain, vertigo or weakness Psychiatric Psychiatric: Reports systems reviewed and no addt'l complaints, except as documented and none; Denies behavioral changes, confusion, difficulty concentrating, hallucinations, suicidal ideation, tactile hallucinations or visual hallucinations Endocrine Endocrinology: Denies none, cold intolerance, excessive sweating, fatigue or heat intolerance Hematologic/Lymphatic Hematologic/Lymphatic: Reports none; Denies anemia, easy bleeding or easy bruising Allergic/Immunologic Allergic/Immunologic ED: Denies as per HPI, none, lip swelling, mouth swelling, throat swelling, tongue swelling or hives EXAM Physical Exam Const Vital Signs: 01/08/21 17:39 Temperature 96.5 F L Temperature Source Temporal Pulse Rate 83 Respiratory Rate 19 H Blood Pressure 157/90 H Blood Pressure Mean 112 Pulse Ox 97 Oxygen Delivery Method Room Air Positive well nourished and well developed General Appearance ED: well developed and NAD HEENT Reports TM's clear and moist mucous membranes HEENT Narrative: Dentition-patient does have noted prior extraction right upper tooth #2. I do feel a bony prominence at the extraction site in the gingiva is tender to palpation. I do not appreciate any dental abscess. She has minimal right-sided upper facial swelling when compared to the left side. No facial erythema or cellulitis noted. normocephalic and atraumatic; Negative for trauma or tenderness Tympanic Membrane ED: Yes TM's clear Eyes PERRL and EOMs intact bilaterally General Eye ED: Negative for pale conjunctiva or scleral icterus Neck no lymphadenopathy, supple and no JVD General: Negative for tenderness Chest Wall inspection of chest normal and palpation of chest normal Chest: Negative for tenderness Resp normal respiratory effort and clear to auscultation bilaterally Effort and Inspection: Negative for respiratory distress or pain with movement Auscultation: Negative for rhonchi, wheezes or diminished lung sounds Cardio regular rate, regular rhythm, S1 normal heart sound, S2 normal heart sound and no murmurs Peripheral Pulses: pulses 2+ throughout GI normal to inspection, nondistended, normoactive bowel sounds, soft to palpation, non-tender, non-distended and no masses Back/Spine no CVA tenderness and no thoracic nor lumbar tenderness Extremity normal to inspection General Extremety ED: Negative for edema General Extremity: Negative for edema Neuro oriented x3, CN's II-XII intact bilaterally, no sensory deficits noted and gait normal Sensorium / Orientation: awake, alert, oriented to person, oriented to place and oriented to time Motor Exam: strength 5/5 throughout and strength abnormal Psych mental status grossly normal Skin no rashes or lesions noted and no wounds MDM MDM MDM Narrative Medical decision making narrative: Patient will be started on clindamycin and given [place] for pain. She is advised Discharge Plan Triage Chief Complaint: Dental ED Provider: Maricarmen Saba Dx/Rx/DC Orders Clinical Impression: Pain, dental Instructions: ED Dental Pain Prescriptions: New clindamycin HCl [Cleocin HCl] 300 MG capsule 300 mg PO Q6H Qty: 40 RF: 0 hydrocodone-acetaminophen [hydrocodone-acetaminophen] 1 TABLET tablet 1 tab PO Q4H PRN PRN (Reason: Pain) 2 Days Qty: 10 RF: 0 No Action albuterol sulfate 1 INHALER inhaler 1 - 2 puff inhalation Q4H PRN PRN (Reason: Wheezing) Qty: 1 RF: 0 ondansetron 4 MG tablet 4 mg PO Q8H PRN PRN (Reason: Nausea) Qty: 10 RF: 0 alprazolam 1 MG tablet 1 mg PO QHS PRN (Reason: Anxiety) RF: 0 budesonide-formoterol 160-4.5MCG inhaler 2 puff PO BID RF: 0 insulin regular human 100 UNIT/ML solution 26 units subcut TIDCM RF: 0 cyclobenzaprine 10 MG tablet 5 mg PO TID PRN PRN (Reason: Muscle Spasm) RF: 0 trazodone 50 MG tablet 50 mg PO QHS PRN PRN (Reason: Sleep) RF: 0 dulaglutide 1.5 MG/0.5 ML pen injector 1.5 mg SQ TH RF: 0 bupropion HCl 300 MG tablet extended release 24 hr 300 mg PO DAILY RF: 0 bupropion HCl 150 MG tablet extended release 24 hr 150 mg PO DAILY RF: 0 desvenlafaxine succinate 50 MG tablet 50 mg PO DAILY RF: 0 ranolazine 500 MG tablet 500 mg PO BID RF: 0 insulin NPH isoph U-100 human 100 UNITS/ML insulin pen 38 units SC BIDAC Qty: 0 RF: 0 ticagrelor 90 mg tablet 90 mg PO BID Qty: 60 RF: 11 aspirin 81 mg tablet,delayed release (DR/EC) 81 mg PO DAILY@0800 Qty: 30 RF: 11 atorvastatin 80 mg tablet 80 mg PO QHS Qty: 30 RF: 11 carvedilol 25 mg tablet 25 mg PO BID Qty: 60 RF: 11 hydralazine 50 mg tablet 50 mg PO BID Qty: 90 RF: 11 isosorbide mononitrate 60 mg tablet extended release 24 hr 60 mg PO DAILY Qty: 30 RF: 11 lisinopril 40 mg tablet 40 mg PO DAILY Qty: 30 RF: 11 pantoprazole 40 mg tablet,delayed release (DR/EC) 40 mg PO DAILY Qty: 30 RF: 11 levothyroxine 200 mcg tablet 200 mcg PO DAILY Qty: 30 RF: 11 levothyroxine 25 mcg tablet 25 mcg PO DAILY Qty: 30 RF: 11 Primary Care Provider: Carlotta Galindo Referrals: Carlotta Galindo MD [Primary Care Provider] - Activity Restrictions/Additional Instructions: See a dentist at the earliest possible time. Disposition Disposition: Home, Self Care
== END 2021-01-08 18:11 | disposition home or self-care (01) ==
LOC: ED 18:01
PROVIDERS: Emergency Provider Emergency Medicine; PCP Internal Medicine
DX: K08.89 Other specified disorders of teeth and supporting structures (principal); F17.210 Nicotine dependence, cigarettes, uncomplicated; E11.9 Type 2 diabetes mellitus without complications; E03.9 Hypothyroidism, unspecified; E78.00 Pure hypercholesterolemia, unspecified; I10 Essential (primary) hypertension; I25.10 Atherosclerotic heart disease of native coronary artery without angina pectoris; J44.9 Chronic obstructive pulmonary disease, unspecified; K21.9 Gastro-esophageal reflux disease without esophagitis; Z79.4 Long term (current) use of insulin; Z79.82 Long term (current) use of aspirin; Z79.899 Other long term (current) drug therapy
CPT/HCPCS: 99282

== ENCOUNTER 2021-04-06 17:21 | Emergency (ER) | payer MEDICARE, MEDICAID, SELFPAY ==
[2019-05-06 13:18] VITALS: BMI 56.7
[2021-04-06 17:22] VITALS: BP 153/109; PULSE 116; RESP 18; TEMP 37.1; O2SAT 98; BMI 49.8
[2021-04-06 18:17] LABS: Bacteria 0 SEEN /hpf (None Seen); Mucous, Urine 0 SEEN /hpf (<or=2+); Red Blood Cells-Urine 0 SEEN /hpf (0-5); Squamous Epithelial Cells - UA 0 SEEN /hpf (5-10); White Blood Cells 0 SEEN /hpf (0-5)
--- NOTE | 2021-04-06 18:25 | EX.ED.DYSGE1 ---
HPI History of Present Illness Chief Complaint: General Illness Detail of Chief Complaint: Numerous symptoms or complaints read HPI Informant: patient Onset/Context/Timing Onset: Days Context: Gradual Onset and Sudden Onset Timing: Continuous Quality: Pain left side of body and headache status post fall Location: Left side headache is global Current Severity: Mild Maximum Severity: Moderate Worsened by: Skeletal pain is worse with movement. Headache is worse with exertion Relieved by: Nothing Associated Symptoms Associated Symptoms: No neurologic symptoms Narrative Narrative: Patient is a 45-year-old woman who presents because of pain status post fall on . She is on Brilinta. She does report headache. She has nausea. He denies vomiting or diarrhea. She denies double vision, blurred vision loss of vision. [place] ringing of ears or decreased hearing. Denies epistaxis. Denies dental trauma. She denies malalignment of her teeth. Denies neck pain. She denies paresthesia, anesthesia or motor weakness. She denies problems with balance. She is concerned that she may have done something to the hardware in her back. She has full active range of motion of her extremities and is able to ambulate. Prior similar symptoms: No Recent Illness/Hospitalization: [facility] Medical History Asthma Atherosclerotic heart disease of [place] coronary artery without angina pectoris Chronic obstructive pulmonary disease Diabetes mellitus, type II Essential hypertension GERD (gastroesophageal reflux disease) History of anxiety Hypercholesterolemia Hypothyroidism Morbid obesity with BMI of 50.0-59.9, adult Nicotine dependence GEOVANI (obstructive sleep apnea) Sleep-disordered breathing Home Medications albuterol sulfate 1 - 2 puff INHALATION Q4H PRN PRN #1 inhaler 10/15/15 [Rx Last Taken 10/19/20] ondansetron 4 mg PO Q8H PRN PRN #10 tab 03/07/18 [Rx Last Taken 10/17/20] alprazolam 1 mg PO QHS PRN 08/18/18 [History Last Taken 10/19/20] budesonide-formoterol 2 puff PO BID 05/07/19 [History Last Taken 10/20/20] insulin regular human 26 units SUBCUT TIDCM 05/07/19 [History Last Taken 10/20/20] cyclobenzaprine 5 mg PO TID PRN PRN 07/19/19 [History Last Taken 10/13/20] trazodone 50 mg PO QHS PRN PRN 07/19/19 [History Last Taken 10/17/20] bupropion HCl 150 mg PO DAILY 09/25/20 [History Last Taken 10/20/20] bupropion HCl 300 mg PO DAILY 09/25/20 [History Last Taken 10/20/20] desvenlafaxine succinate 75 mg PO DAILY 09/25/20 [History Last Taken 10/20/20] aspirin 81 mg tablet,delayed release 81 mg PO DAILY@0800 #30 tablet 11/07/20 [Rx Last Taken Unknown] atorvastatin 80 mg tablet 80 mg PO QHS #30 tab 11/07/20 [Rx Last Taken Unknown] carvedilol 25 mg tablet 25 mg PO BID #60 tab 11/07/20 [Rx Last Taken Unknown] hydralazine 50 mg tablet 50 mg PO BID #90 tab 11/07/20 [Rx Last Taken Unknown] levothyroxine 200 mcg tablet 200 mcg PO DAILY #30 tab 11/07/20 [Rx Last Taken Unknown] levothyroxine 25 mcg tablet 25 mcg PO DAILY #30 tab 11/07/20 [Rx Last Taken Unknown] lisinopril 40 mg tablet 40 mg PO DAILY #30 tab 11/07/20 [Rx Last Taken Unknown] pantoprazole 40 mg tablet,delayed release 40 mg PO DAILY #30 tab 11/07/20 [Rx Last Taken Unknown] ticagrelor 90 mg tablet 90 mg PO BID #60 tablet 11/07/20 [Rx Last Taken Unknown] clindamycin HCl [Cleocin HCl] 300 mg PO Q6H #40 capsule 01/08/21 [Rx Last Taken Unknown] hydrocodone-acetaminophen 1 tab PO Q4H PRN PRN 2 Days #10 tablet 01/08/21 [Rx Last Taken Unknown] hydrocodone-acetaminophen 1 tab PO Q6H PRN PRN 3 Days #10 tablet 04/06/21 [Rx Last Taken Unknown] insulin NPH isoph U-100 human 32 units SC BIDAC 04/06/21 [History Last Taken Unknown] lorazepam [Ativan] 1 mg PO DAILY PRN 04/06/21 [History Last Taken Unknown] Allergy/AdvReac Type Severity Reaction Status Date / Time metformin [From Glucophage] AdvReac Intermediate Diarrhea Verified 04/06/21 17:25 hydromorphone [From Dilaudid] AdvReac Itching Verified 04/06/21 17:25 morphine AdvReac Itching Verified 04/06/21 17:25 Family History Mother Cancer lung Father Hypertension COPD (chronic obstructive pulmonary disease) Daughter Factor V deficiency Grandmother Cancer lung COPD (chronic obstructive pulmonary disease) Surgical History History of back surgery History of delivery History of cholecystectomy History of coronary artery stent placement (09/26/20) History of dilatation and curettage History of left heart catheterization (10/08/20) History of percutaneous transluminal coronary angioplasty (~10/20/20) History of tonsillectomy and adenoidectomy History of tubal ligation Social History (Updated 04/06/21 @ 19:[address] Kennedy Mojica MD) household members: none Smoking Status: Current every day smoker tobacco type: cigarettes alcohol intake: current alcohol intake frequency: holidays/special occasions only substance use type: does not use caffeine: Yes ROS ROS ED Constitutional Constitutional ED: Denies chills, fever(s), subjective, sweats or weight loss Eyes Eyes: Denies blurry vision, change in vision or diplopia ENT ENT ED: Denies ear pain, rhinorrhea or sore throat Cardiovascular Cardiovascular: Denies chest pain, palpitations or racing heartbeat Respiratory/Chest Respiratory/Chest: Denies cough, dyspnea or dyspnea on exertion Gastrointestinal Gastrointestinal: Reports nausea; Denies abdominal pain, diarrhea or vomiting Genitourinary Genitourinary ED: Denies dysuria, hematuria or urinary frequency Musculoskeletal Musculoskeletal: Reports back pain; Denies arthralgias or myalgias Integumentary Denies abscess or rash Neurologic Neurologic: Reports headache(s) and paresthesias; Denies weakness Psychiatric Psychiatric: Reports anxiety Hematologic/Lymphatic Hematologic/Lymphatic: Denies anemia, easy bleeding or easy bruising Allergic/Immunologic Allergic/Immunologic ED: Denies mouth swelling, tongue swelling or urticaria EXAM Physical Exam Const Vital Signs: 04/06/21 17:22 04/06/21 17:39 Temperature 98.7 F Temperature Source Temporal Pulse Rate 116 H Respiratory Rate 18 Respiratory Effort Normal Non-Labored Respiratory Pattern Normal Blood Pressure 153/109 H Blood Pressure Mean 123 Pulse Ox 98 Oxygen Delivery Method Room Air Positive well nourished, well developed and obese General Appearance ED: well developed and NAD; Negative for cyanotic, diaphoretic or other Nutritional Appearance: obese HEENT Reports TM's clear and moist mucous membranes HEENT Narrative: Septal hematoma or deviation negative trauma and tenderness Tympanic Membrane ED: Yes TM's clear Eyes PERRL and EOMs intact bilaterally General Eye ED: Negative for pale conjunctiva or scleral icterus Neck no lymphadenopathy, supple and no JVD Chest Wall inspection of chest normal and palpation of chest normal Resp normal respiratory effort and clear to auscultation bilaterally Cardio regular rate, regular rhythm, S1 normal heart sound, S2 normal heart sound and no murmurs GI normal to inspection, nondistended, normoactive bowel sounds and non-tender Palpation: soft Back/Spine no CVA tenderness Cervical Spine: Negative for cervical spine tenderness Thoracic Spine / Upper Back: paraspinal muscle tenderness; Negative for thoracic spinal tenderness Lumbar Spine / Lower Back: lumbar spinal tenderness Extremity normal to inspection General Extremety ED: Negative for edema or tenderness General Extremity: Negative for edema Neuro oriented x3, CN's II-XII intact bilaterally and no sensory deficits noted Sensorium / Orientation: alert Motor Exam: strength 5/5 throughout Psych mental status grossly normal Skin no rashes or lesions noted and no wounds MDM MDM MDM Narrative Medical decision making narrative: History of head trauma, on Brilinta and complaint of headache with nausea CT of the head was obtained to rule out intracranial bleed i.e. subdural, epidural or traumatic subarachnoid hemorrhage. Also need to rule out intraparenchymal bleed. Patient has concern she is in DKA. Blood work was obtained. There is no evidence of DKA. Urine is positive for glucose and ketones. Ketones may be present for other reasons. X-ray of the LS-spine was obtained interpreted by me as negative. CT of the head interpreted radiology reviewed by me negative. Patient was informed of her results. She received a [place] tablet prior to discharge. To be discharged home. Lab Data Attestation: I reviewed the patient's lab results. Labs: Laboratory Results - last 24 hr 04/06/21 04/06/21 04/06/21 18:10 18:10 18:10 WBC Cancelled Corrected WBC Cancelled RBC Cancelled Hgb Cancelled Hct Cancelled MCV Cancelled MCH Cancelled MCHC Cancelled RDW Std Deviation Cancelled RDW Coeff of [place] Cancelled Plt Count Cancelled MPV Cancelled Immature Gran % (Auto) Cancelled Neut % (Auto) Cancelled Lymph % (Auto) Cancelled [place] % (Auto) Cancelled Eos % (Auto) Cancelled Baso % (Auto) Cancelled Absolute Neuts (auto) Cancelled Absolute Lymphs (auto) Cancelled Total Counted Cancelled Neutrophils % (Manual) Cancelled Band Neutrophils % Cancelled Lymphocytes % (Manual) Cancelled Monocytes % (Manual) Cancelled Eosinophils % (Manual) Cancelled Basophils % (Manual) Cancelled Metamyelocytes % Cancelled Myelocytes % Cancelled Promyelocytes % Cancelled Blast Cells % Cancelled Plasma Cell % (Manual) Cancelled Other Cells % Cancelled Nucleated RBC % Cancelled Nucleated RBCs/100 WBC Cancelled Differential Comment Cancelled Diff Path Review Cancelled Hypersegmented Neuts Cancelled Atypical Lymphocytes Cancelled Reactive Lymphocytes Cancelled Smudge Cells Cancelled Toxic Granulation Cancelled Toxic Vacuolation Cancelled Dohle Bodies Cancelled [place] Rods Cancelled Platelet Estimate Cancelled Plt Morphology Comment Cancelled RBC Morphology Cancelled Polychromasia Cancelled Hypochromasia Cancelled Poikilocytosis Cancelled Basophilic Stippling Cancelled Anisocytosis Cancelled Microcytosis Cancelled Macrocytosis Cancelled Spherocytes Cancelled Sickle Cells Cancelled Target Cells Cancelled Tear Drop Cells Cancelled Ovalocytes Cancelled Stomatocytes Cancelled [place] Bodies Cancelled Reshma Cells Cancelled Bite Cells Cancelled Crenated Cell Cancelled Acanthocytes (Spur) Cancelled Rouleaux Cancelled Schistocytes Cancelled Sodium 138 Potassium 4.0 Chloride 105 Carbon Dioxide 25.0 Anion Gap 8 BUN 6 L Creatinine 0.64 Estim Creat Clear Calc 101.73 Est GFR (MDRD) Af Amer 127 Est GFR (MDRD) Non-Af 105 BUN/Creatinine Ratio 9.3 L Glucose 154 H Calcium 9.3 Urine Color Yellow Urine Clarity Sl. Cloudy Urine pH 6.0 Ur Specific [place] 1.010 Urine Protein Negative Urine Glucose (UA) 1000 H Urine Ketones 50 H Urine Occult Blood Negative Urine Nitrite Negative Urine Bilirubin Negative Urine Urobilinogen Normal Ur Leukocyte Esterase Negative Urine RBC 0 SEEN Urine WBC 0 SEEN Ur Squamous Epith Cells 0 SEEN Urine Bacteria 0 SEEN Urine Mucus 0 SEEN Basic metabolic panels are marked for glucose of 154 with a normal CO2 and anion gap. Urine is positive for ketones and glucose. There is no evidence of infection. Radiography Chest X-Ray - ED: Read by ED Physician (2 view x-ray of the LS-spine reveals hardware to be in proper position. There is calcification of the aorta. There are significant atopy, [place]. There is no evidence of fracture. This was interpreted by me at 07/14/2002. Agree with radiology read of a normal CAT scan of the head.) Diagnostic Testing: Radiology Impression Brain CT 04/06/21 18:50 IMPRESSION: 1. Normal CT brain. Electronically Signed: Simone Lloyd MD at 19:03 EDT Tel , Service support , Discharge Plan Triage Chief Complaint: General Illness ED Provider: Kennedy Mojica Dx/Rx/DC Orders Clinical Impression: Concussion with loss of consciousness of 30 minutes or less, initial encounter, Low back strain, Contusion of multiple sites of left lower extremity, Contusion of left upper arm, initial encounter, Injury due to fall Instructions: ED Back Pain (Acute or Chronic), ED Concussion, ED Contusion, Lower Extremity, ED Contusion, Upper Extremity Prescriptions: New hydrocodone-acetaminophen [hydrocodone-acetaminophen] 1 TABLET tablet 1 tab PO Q6H PRN PRN (Reason: Pain) 3 Days Qty: 10 RF: 0 No Action albuterol sulfate 1 INHALER inhaler 1 - 2 puff inhalation Q4H PRN PRN (Reason: Wheezing) Qty: 1 RF: 0 ondansetron 4 MG tablet 4 mg PO Q8H PRN PRN (Reason: Nausea) Qty: 10 RF: 0 alprazolam 1 MG tablet 1 mg PO QHS PRN (Reason: Anxiety) RF: 0 budesonide-formoterol 160-4.5MCG inhaler 2 puff PO BID RF: 0 insulin regular human 100 UNIT/ML solution 26 units subcut TIDCM RF: 0 cyclobenzaprine 10 MG tablet 5 mg PO TID PRN PRN (Reason: Muscle Spasm) RF: 0 trazodone 50 MG tablet 50 mg PO QHS PRN PRN (Reason: Sleep) RF: 0 bupropion HCl 300 MG tablet extended release 24 hr 300 mg PO DAILY RF: 0 bupropion HCl 150 MG tablet extended release 24 hr 150 mg PO DAILY RF: 0 desvenlafaxine succinate 50 MG tablet 75 mg PO DAILY RF: 0 clindamycin HCl [Cleocin HCl] 300 MG capsule 300 mg PO Q6H Qty: 40 RF: 0 hydrocodone-acetaminophen [hydrocodone-acetaminophen] 1 TABLET tablet 1 tab PO Q4H PRN PRN (Reason: Pain) 2 Days Qty: 10 RF: 0 lorazepam [Ativan] 1 mg Tablet 1 mg PO DAILY PRN (Reason: Anxiety) RF: 0 insulin NPH isoph U-100 human 100 UNITS/ML insulin pen 32 units SC BIDAC RF: 0 ticagrelor 90 mg tablet 90 mg PO BID Qty: 60 RF: 11 aspirin 81 mg tablet,delayed release (DR/EC) 81 mg PO DAILY@0800 Qty: 30 RF: 11 atorvastatin 80 mg tablet 80 mg PO QHS Qty: 30 RF: 11 carvedilol 25 mg tablet 25 mg PO BID Qty: 60 RF: 11 hydralazine 50 mg tablet 50 mg PO BID Qty: 90 RF: 11 lisinopril 40 mg tablet 40 mg PO DAILY Qty: 30 RF: 11 pantoprazole 40 mg tablet,delayed release (DR/EC) 40 mg PO DAILY Qty: 30 RF: 11 levothyroxine 200 mcg tablet 200 mcg PO DAILY Qty: 30 RF: 11 levothyroxine 25 mcg tablet 25 mcg PO DAILY Qty: 30 RF: 11 Primary Care Provider: Carlotta Galindo Referrals: Carlotta Galindo MD [Primary Care Provider] -
[2021-04-06 18:30] LABS: Color, Urine Yellow (Yellow); Glucose, Dipstick 1000 mg/dl (Normal); Ketone-Dipstick 50 mg/dl (Negative); Leukocyte Esterase-Dipstick Negative /ul (Negative); Nitrite-Dipstick Negative (Negative); Occult Blood-Urine Negative /ul (Negative); Protein-Dipstick Negative (Negative); Urine Bilirubin Dipstick Negative (Negative); Urine Clarity Sl. Cloudy (Clear); Urine Urobilinogen Normal (Normal)
[2021-04-06] MEDS: 0.9% Normal Saline 1,000 ML 1000 ML IV (18:33)
[2021-04-06] MEDS: Morphine 4 MG/ML Syringe IV (18:33)
[2021-04-06] MEDS: Metoclopramide 10 MG/2 ML Vial IV (18:34)
[2021-04-06 18:45] LABS: Anion Gap 8 (5-15); BUN 6 mg/dL (7-18); BUN/Creat Ratio 9.3 RATIO (10-20); Calcium,Total 9.3 mg/dL (8.5-10.1); Chloride 105 mmol/L (98-107); Creatinine, Serum 0.64 mg/dL (0.55-1.02); EST Glomerular Filtration Rate 105 mL/min (>60); Est Glom Filt Rate - Afr Amer 127 mL/min (>60); Estimated Creatinine Clearance 101.73 ml/min; Glucose 154 mg/dL (74-106); Sodium Level 138 mmol/L (136-145)
--- NOTE | 2021-04-06 18:50 | CT_ITS ---
STUDY: CT BRAIN WITHOUT CONTRAST REASON FOR EXAM: Female, 45 years old. Head trauma headache nausea on antiplatelet RADIATION DOSAGE (If Supplied By Facility): CTDIvol = ( 44.99 ) mGy, DLP = ( 812.98 ) mGycm TECHNIQUE: Transaxial CT imaging of the brain was performed without administration of intravenous contrast material. Individualized dose optimization techniques were used for this CT. COMPARISON: No relevant priors. FINDINGS: Brain parenchyma is without focal lesions, mass effect, acute intracranial hemorrhage, extra parenchymal fluid collections, hydrocephalus or herniation. The skull is intact. CT/Brain/Head without Contrast IMPRESSION: 1. Normal CT brain. Electronically Signed: Simone Lloyd MD at 19:03 EDT Tel , Service support ,
--- NOTE | 2021-04-06 19:00 | RAD_ITS ---
STUDY: X-RAY - LUMBAR SPINE REASON FOR EXAM: Female, 45 years old. Injury/Pain TECHNIQUE: Injury back pain view(s) of the lumbar spine were obtained. COMPARISON: 01 June 2019 FINDINGS: There is L4 -- L5-S1 pedicular screw fusion. The spine is aligned and intact. SI joints are normal. Mineralization is normal. There is L5-S1 disc spacer. Appearance is similar to prior. There is no intestinal obstruction. RAD/Lumbar Spine 2 or 3 Views IMPRESSION: Stable expected appearance of L4-S1 pedicular screw fusion. Electronically Signed: Simone Lloyd MD at 20:13 EDT Tel , Service support ,
[2021-04-06 19:16] LABS: Absolute Neutrophil Count 8.9 X10^3/uL (2.0-7.7); Basophil# 0.07 X10^3/uL; Basophil% 0.5 % (0-1); Eosinophil# 0.16 X10^3/uL; Eosinophils% 1.2 % (0-5); Hematocrit 36.7 % (37-47); Hemoglobin 12.7 g/dL (12.0-15.0); Lymphocyte % 23.9 % (19-41); Mean Corp Hgb Conc 34.6 g/dL (32-36); Mean Corpuscular Hgb 33.4 pg (27.0-32.0); Mean Corpuscular Volume 96.6 fL (81-99); Mean Platelet Vol. 10.4 fl (6.2-12.0); Monocyte# 1.01 X10^3/uL; Monocyte% 7.5 % (0-10); NRBC Flagged by Analyzer 0 % (0-5); Neutrophil # 8.93 X10^3/uL (2.7-7.7); Neutrophil % 66.6 % (47-70); Platelet Count 250 K/mm3 (150-450); RBC Distribution Width CV 13.6 % (11.6-14.6); RBC Distribution Width SD 48.2 fl (35.1-43.9); White Blood Count 13.4 K/mm3 (4.4-11.0)
[2021-04-06 19:22] VITALS: BP 102/82; PULSE 109; RESP 19; O2SAT 98
[2021-04-06 19:26] VITALS: BP 102/82; PULSE 106; PULSE 109; RESP 16; O2SAT 98; O2SAT 99
[2021-04-06] MEDS: HYDROcodone Bitartrate/Apap 5/325 Tablet PO (19:28)
== END 2021-04-06 19:29 ==
PROVIDERS: Emergency Provider Emergency Medicine; PCP Internal Medicine
DX: S06.0X1A Concussion with loss of consciousness of 30 minutes or less, initial encounter (principal); S39.012A Strain of muscle, fascia and tendon of lower back, initial encounter; S40.022A Contusion of left upper arm, initial encounter; I25.10 Atherosclerotic heart disease of native coronary artery without angina pectoris; E11.9 Type 2 diabetes mellitus without complications; E03.9 Hypothyroidism, unspecified; K21.9 Gastro-esophageal reflux disease without esophagitis; I10 Essential (primary) hypertension; G47.33 Obstructive sleep apnea (adult) (pediatric); J44.9 Chronic obstructive pulmonary disease, unspecified; F17.210 Nicotine dependence, cigarettes, uncomplicated; E78.00 Pure hypercholesterolemia, unspecified; F41.9 Anxiety disorder, unspecified; Z79.4 Long term (current) use of insulin; Z79.82 Long term (current) use of aspirin; Z79.899 Other long term (current) drug therapy; W19.XXXA Unspecified fall, initial encounter
CPT/HCPCS: 70450; 72100; 80048; 81001; 85025; 96374; 96375; 99285; J7030; A4216

== ENCOUNTER 2021-04-17 08:16 | Inpatient (IN) | payer MEDICARE, MEDICAID, SELFPAY ==
[2019-05-06 13:18] VITALS: BMI 56.7
[2021-04-17] VITALS (21 sets, daily range): BP systolic 114–197; BP diastolic 71–118; PULSE 95–137; RESP 17–30; TEMP 36.2–36.8; O2SAT 97–100; BMI 48.6; BMI 49.6
--- NOTE | 2021-04-17 08:23 | EKG12_ITS ---
Test Reason : Blood Pressure : / mmHG Vent. Rate : 112 BPM Atrial Rate : 112 BPM P-R Int : 150 ms QRS Dur : 078 ms QT Int : 344 ms P-R-T Axes : 025 -13 000 degrees QTc Int : 469 ms Sinus tachycardia Inferior infarct , age undetermined Abnormal ECG Confirmed by KEIKO SILVA, REHAN ([id number]), editor map ODALYS PHILIPPE ([id number]) on 04/23/2021 6:31:56 AM Referred By: CONSTANTINE Confirmed By:REHAN ADEN MD
--- NOTE | 2021-04-17 08:40 | EX.ED.DYSGE1 ---
HPI History of Present Illness Chief Complaint: General Illness Informant: patient Narrative Narrative: Patient is a 45-year-old female with history of coronary artery disease, STEMI, insulin-dependent diabetes mellitus and hypertension presenting with generalized malaise. Patient states she has had more emotional stress and had more depression anxiety the past few days. She denies any homicidal or suicidal ideations. She knows she has been crying more. She is also felt more fatigued and had decreased oral intake. She had episode of vomiting today. She is felt short of breath on exertion. She denies any cough. She has had chest congestion and heartburn. She has it feels like when she was in DKA before. She has not been taking her insulin because she is not been eating or feeling well. She states she has been too anxious so therefore she has been crying and not eating or drinking. She denies any sick contacts. She has not had her Covid vaccine or prior Covid infection. She denies any chest pain. She has a swelling of her legs. She is on Brilinta because of her prior heart attack. No other complaints at this time. [facility] Medical History Asthma Atherosclerotic heart disease of [place] coronary artery without angina pectoris Chronic obstructive pulmonary disease Diabetes mellitus, type II Essential hypertension GERD (gastroesophageal reflux disease) History of anxiety Hypercholesterolemia Hypothyroidism Morbid obesity with BMI of 50.0-59.9, adult Nicotine dependence GEOVANI (obstructive sleep apnea) Sleep-disordered breathing Home Medications albuterol sulfate 1 - 2 puff INHALATION Q4H PRN PRN #1 inhaler 10/15/15 [Rx Last Taken 10/19/20] ondansetron 4 mg PO Q8H PRN PRN #10 tab 03/07/18 [Rx Last Taken 10/17/20] alprazolam 1 mg PO QHS PRN 08/18/18 [History Last Taken 10/19/20] budesonide-formoterol 2 puff PO BID 05/07/19 [History Last Taken 10/20/20] insulin regular human 26 units SUBCUT TIDCM 05/07/19 [History Last Taken 10/20/20] cyclobenzaprine 5 mg PO TID PRN PRN 07/19/19 [History Last Taken 10/13/20] trazodone 50 mg PO QHS PRN PRN 07/19/19 [History Last Taken 04/16/21 50] bupropion HCl 150 mg PO DAILY 09/25/20 [History Last Taken 10/20/20] bupropion HCl 300 mg PO DAILY 09/25/20 [History Last Taken 10/20/20] desvenlafaxine succinate 75 mg PO DAILY 09/25/20 [History Last Taken 10/20/20] aspirin 81 mg tablet,delayed release 81 mg PO DAILY@0800 #30 tablet 11/07/20 [Rx Last Taken Unknown] atorvastatin 80 mg tablet 80 mg PO QHS #30 tab 11/07/20 [Rx Last Taken Unknown] carvedilol 25 mg tablet 25 mg PO BID #60 tab 11/07/20 [Rx Last Taken Unknown] hydralazine 50 mg tablet 50 mg PO BID #90 tab 11/07/20 [Rx Last Taken Unknown] levothyroxine 200 mcg tablet 200 mcg PO DAILY #30 tab 11/07/20 [Rx Last Taken Unknown] levothyroxine 25 mcg tablet 25 mcg PO DAILY #30 tab 11/07/20 [Rx Last Taken Unknown] lisinopril 40 mg tablet 40 mg PO DAILY #30 tab 11/07/20 [Rx Last Taken Unknown] pantoprazole 40 mg tablet,delayed release 40 mg PO DAILY #30 tab 11/07/20 [Rx Last Taken Unknown] ticagrelor 90 mg tablet 90 mg PO BID #60 tablet 11/07/20 [Rx Last Taken Unknown] hydrocodone-acetaminophen 1 tab PO Q6H PRN PRN 3 Days #10 tablet 04/06/21 [Rx Last Taken Unknown] insulin NPH isoph U-100 human 32 units SC BIDAC 04/06/21 [History Last Taken Unknown] lorazepam [Ativan] 1 mg PO DAILY PRN 04/06/21 [History Last Taken Unknown] Allergy/AdvReac Type Severity Reaction Status Date / Time metformin [From Glucophage] AdvReac Intermediate Diarrhea Verified 04/17/21 08:20 hydromorphone [From Dilaudid] AdvReac Itching Verified 04/17/21 08:20 morphine AdvReac Itching Verified 04/17/21 08:20 Family History Mother Cancer lung Father Hypertension COPD (chronic obstructive pulmonary disease) Daughter Factor V deficiency Grandmother Cancer lung COPD (chronic obstructive pulmonary disease) Surgical History History of back surgery History of delivery History of cholecystectomy History of coronary artery stent placement (09/26/20) History of dilatation and curettage History of left heart catheterization (10/08/20) History of percutaneous transluminal coronary angioplasty (~10/20/20) History of tonsillectomy and adenoidectomy History of tubal ligation Social History (Updated 04/06/21 @ 19:[address] Kennedy Mojica MD) household members: none Smoking Status: Current every day smoker tobacco type: cigarettes alcohol intake: current alcohol intake frequency: holidays/special occasions only substance use type: does not use caffeine: Yes ROS ROS ED Constitutional Constitutional ED: Denies chills or fever(s) Eyes Eyes: Denies change in vision ENT ENT ED: Denies ear pain, rhinorrhea or sore throat Cardiovascular Cardiovascular: Reports chest pain; Denies palpitations Respiratory/Chest Respiratory/Chest: Reports cough; Denies dyspnea Gastrointestinal Gastrointestinal: Reports abdominal pain, nausea and vomiting Genitourinary Genitourinary ED: Denies dysuria or hematuria Musculoskeletal Musculoskeletal: Reports back pain and myalgias Integumentary Denies rash Neurologic Neurologic: Reports headache(s) and weakness Psychiatric Psychiatric: Reports anxiety and depression; Denies suicidal ideation or suicidal thoughts Endocrine Endocrinology: Reports polyuria EXAM Physical Exam Const Vital Signs: 04/17/21 08:17 04/17/21 09:34 Temperature 97.9 F Temperature Source Oral Pulse Rate 119 H Respiratory Rate 19 H Respiratory Effort Normal Non-Labored Respiratory Pattern Normal Blood Pressure 152/101 H Blood Pressure Mean 118 Pulse Ox 100 Oxygen Delivery Method Room Air Positive well nourished, well developed and obese General Appearance ED: well developed Nutritional Appearance: obese HEENT Reports TM's clear and dry mucous membranes Tympanic Membrane ED: Yes TM's clear Mouth ED: Yes dry mucous membranes Mouth: dry mucous membranes Eyes PERRL and EOMs intact bilaterally Neck supple and no JVD Chest Wall inspection of chest normal Resp Resp Narrative: Tachypnea, clear breath sounds throughout Cardio regular rhythm and no murmurs Rate: tachycardic GI Auscultation: normoactive bowel sounds Palpation: soft and tender other (Diffuse mild tenderness to palpation) Back/Spine no CVA tenderness Extremity normal to inspection General Extremety ED: Negative for edema General Extremity: Negative for edema Neuro oriented x3 and CN's II-XII intact bilaterally Sensorium / Orientation: alert Motor Exam: general weakness Psych mental status grossly normal Mood & Affect: anxious and tearful Skin no rashes or lesions noted and no wounds MDM MDM MDM Narrative Medical decision making narrative: Patient is evaluated for nausea, vomiting, abdominal pain and shortness of breath. Patient appears nontoxic but uncomfortable and quite anxious. She is tachycardic in the ER and clinically appears dehydrated. She is given a liter of IV fluid as well as IV Zofran. She has had mild improvement with her symptoms but continues to complain of Zofran as well as worsening anxiety. She is redosed with Zofran after her EKG shows a normal QTC and also given IV Ativan. She has a significant leukocytosis with a white blood cell count of 23.7. CMP is remarkable for sodium of 131, potassium of 5.2, anion gap of 21 and carbon dioxide of 9.0. Her glucose was 447. I suspect patient is in DKA. I did add on an ABG, ketones and order another liter of fluid. Patient's ABG shows acidosis with a pH of 7.115 and PCO2 of 12.4. This is metabolic in nature. She has moderate ketones on her blood work. Patient started on insulin drip will be admitted to the ICU for further management of her DKA. CT of the abdomen and pelvis does not show any acute process to explain her DKA. I suspect it is from medication noncompliance. Patient is agreeable this plan of care. She remained stable in the emergency room. Lab Data Attestation: I reviewed the patient's lab results. Labs: Laboratory Results - last 24 hr 04/17/21 04/17/21 04/17/21 08:33 09:20 09:20 WBC 23.7 H RBC 4.61 Hgb 15.3 H Hct 46.5 MCV 100.9 H MCH 33.2 H MCHC 32.9 RDW Std Deviation 50.4 H RDW Coeff of Whitney 13.6 Plt Count 361 MPV 10.2 Immature Gran % (Auto) 1.000 H Neut % (Auto) 80.0 H Lymph % (Auto) 14.6 L [place] % (Auto) 3.5 Eos % (Auto) 0.4 Baso % (Auto) 0.5 Absolute Neuts (auto) 18.9 H Absolute Lymphs (auto) 3.46 Nucleated RBC % 0 Sodium Cancelled Potassium Cancelled Chloride Cancelled Carbon Dioxide Cancelled Anion Gap Cancelled BUN Cancelled Creatinine Cancelled Estim Creat Clear Calc Cancelled Est GFR (MDRD) Af Amer Cancelled Est GFR (MDRD) Non-Af Cancelled BUN/Creatinine Ratio Cancelled Glucose Cancelled Lactic Acid Calcium Cancelled Phosphorus Magnesium Total Bilirubin Cancelled AST Cancelled ALT Cancelled Alkaline Phosphatase Cancelled Troponin I High Sens Cancelled Total Protein Cancelled Albumin Cancelled Globulin Cancelled Albumin/Globulin Ratio Cancelled Lipase Cancelled Urine Color Urine Clarity Urine pH Ur Specific [place] Urine Protein Urine Glucose (UA) Urine Ketones Urine Occult Blood Urine Nitrite Urine Bilirubin Urine Urobilinogen Ur Leukocyte Esterase Urine RBC Urine WBC Ur Squamous Epith Cells Urine Bacteria Urine Mucus Urine Test Acetone Level COVID-19 (ROSALINDA) Not Detected 04/17/21 04/17/21 04/17/21 10:00 10:00 10:34 WBC RBC Hgb Hct MCV MCH MCHC RDW Std Deviation RDW Coeff of Whitney Plt Count MPV Immature Gran % (Auto) Neut % (Auto) Lymph % (Auto) [place] % (Auto) Eos % (Auto) Baso % (Auto) Absolute Neuts (auto) Absolute Lymphs (auto) Nucleated RBC % Sodium 131 L Potassium 5.2 H Chloride 101 Carbon Dioxide 9.0 L* Anion Gap 21 H BUN 16 Creatinine 1.05 H Estim Creat Clear Calc 59.60 Est GFR (MDRD) Af Amer 72 Est GFR (MDRD) Non-Af 60 BUN/Creatinine Ratio 15.2 Glucose 447 H Lactic Acid 1.9 Calcium 8.7 Phosphorus Magnesium Total Bilirubin 0.70 AST 8 L ALT 18 Alkaline Phosphatase 101 Troponin I High Sens 10 Total Protein 8.3 H Albumin 3.6 Globulin 4.7 H Albumin/Globulin Ratio 0.8 L Lipase 20 L Urine Color Yellow Urine Clarity Sl. Cloudy Urine pH 5.0 Ur Specific [place] 1.020 Urine Protein 15 H Urine Glucose (UA) 1000 H Urine Ketones 150 A* Urine Occult Blood Negative Urine Nitrite Negative Urine Bilirubin Negative Urine Urobilinogen Normal Ur Leukocyte Esterase Negative Urine RBC 0 SEEN Urine WBC 0 SEEN Ur Squamous Epith Cells 5-10 SEEN Urine Bacteria 1+ Urine Mucus 0 SEEN Urine Test Negative Acetone Level COVID-19 (ROSALINDA) 04/17/21 04/17/21 11:30 11:30 WBC RBC Hgb Hct MCV MCH MCHC RDW Std Deviation RDW Coeff of Whitney Plt Count MPV Immature Gran % (Auto) Neut % (Auto) Lymph % (Auto) [place] % (Auto) Eos % (Auto) Baso % (Auto) Absolute Neuts (auto) Absolute Lymphs (auto) Nucleated RBC % Sodium Potassium Chloride Carbon Dioxide Anion Gap BUN Creatinine Estim Creat Clear Calc Est GFR (MDRD) Af Amer Est GFR (MDRD) Non-Af BUN/Creatinine Ratio Glucose Lactic Acid Calcium Phosphorus 2.9 Magnesium 1.9 Total Bilirubin AST ALT Alkaline Phosphatase Troponin I High Sens Total Protein Albumin Globulin Albumin/Globulin Ratio Lipase Urine Color Urine Clarity Urine pH Ur Specific [place] Urine Protein Urine Glucose (UA) Urine Ketones Urine Occult Blood Urine Nitrite Urine Bilirubin Urine Urobilinogen Ur Leukocyte Esterase Urine RBC Urine WBC Ur Squamous Epith Cells Urine Bacteria Urine Mucus Urine Test Acetone Level MODERATE H COVID-19 (ROSALINDA) Radiography Diagnostic Testing: Clinical Impression(s) from Imaging Studies Chest X-Ray 04/17/21 08:45 IMPRESSION: Borderline cardiomegaly. Electronically Signed: Jacobo Joshi MD at 9:02 EDT , Service support , Abdomen/Pelvis CT 04/17/21 10:45 IMPRESSION: Nonobstructive bilateral intrarenal calculi. Sigmoid diverticulosis. Electronically Signed: Jacobo Joshi MD at 12:30 EDT , Service support , Rhythm Strip Rhythm Strip: Sinus Tach Rate: 112 Ectopy: None EKG Initial EKG: Attestation: I personally reviewed and interpreted this EKG as follows: Interpretation: Sinus Tachycardia Comments: Sinus tachycardia at a rate of 112 Left axis deviation Normal intervals Normal ST segments Critical Care Time Critical Care Time: Yes Critical care time (excluding procedures): 30-74 minutes (42), Discussing w/Patient &/or Family/Guitar Technician, Arranging Admission or Transfer and Performing Direct Patient Care at Bedside Discharge Plan Dx/Rx/DC Orders Clinical Impression: DKA (diabetic ketoacidosis), Nonadherence to medication, Anxiety Disposition Disposition: Acute Care Hospital [facility] Discharge Date/Time: 04/17/21 12:41
--- NOTE | 2021-04-17 08:45 | RAD_ITS ---
STUDY: X-RAY CHEST REASON FOR EXAM: Female, 45 years old. Vomiting, general illness. TECHNIQUE: Single AP portable view of the chest. COMPARISON: Comparison is made with prior examination 10/20/2020. FINDINGS: EKG electrodes are seen. The lungs are clear and expanded. There is no demonstrated pleural abnormality. There is borderline cardiomegaly. Normal mediastinum and larisa. Normal visualized pulmonary arteries. Normal visualized aortic arch and descending thoracic aorta. Normal visualized thoracic spine. Normal visualized ribs, clavicles, and shoulders. There is no demonstrated abnormality of the visualized soft tissue structures of the upper abdomen. RAD/Chest 1 View (Portable) IMPRESSION: Borderline cardiomegaly. Electronically Signed: Jacobo Joshi MD at 9:02 EDT , Service support ,
[2021-04-17] MEDS: 0.9% Normal Saline 1,000 ML 1000 ML IV (09:19)
[2021-04-17] MEDS: Famotidine 200 MG/20 ML MDV 20 MG in 0.9% Normal Saline (Pres. free 8 ML 300 MG IV (09:21)
[2021-04-17] MEDS: Ondansetron 4 MG/2 ML Vial IV ×3 (09:21→17:13)
[2021-04-17 09:24] LABS: Absolute Lymphocyte Count 3.46 X10^3/uL (0.83-4.51); Absolute Neutrophil Count 18.9 X10^3/uL (2.0-7.7); Basophil# 0.12 X10^3/uL; Basophil% 0.5 % (0-1); Eosinophils% 0.4 % (0-5); Hematocrit 46.5 % (37-47); Hemoglobin 15.3 g/dL (12.0-15.0); Lymphocyte # 3.46 X10^3/ul (0.83-4.51); Lymphocyte % 14.6 % (19-41); Mean Corp Hgb Conc 32.9 g/dL (32-36); Mean Corpuscular Hgb 33.2 pg (27.0-32.0); Mean Corpuscular Volume 100.9 fL (81-99); Mean Platelet Vol. 10.2 fl (6.2-12.0); Monocyte# 0.83 X10^3/uL; Monocyte% 3.5 % (0-10); NRBC Flagged by Analyzer 0 % (0-5); Neutrophil # 18.93 X10^3/uL (2.7-7.7); Platelet Count 361 K/mm3 (150-450); RBC Distribution Width CV 13.6 % (11.6-14.6); RBC Distribution Width SD 50.4 fl (35.1-43.9); Red Blood Count 4.61 M/mm3 (4.2-5.4); White Blood Count 23.7 K/mm3 (4.4-11.0)
[2021-04-17] MEDS: Ondansetron ODT 4 MG Tablet PO (09:58)
[2021-04-17 10:31] LABS: ALB/GLOB Ratio 0.8 RATIO (0.9-2.4); AST(SGOT) 8 U/L (15-37); Alanine Aminotransfer ALT/SGPT 18 U/L (13-56); Albumin, Serum 3.6 g/dL (3.2-5.0); Alkaline Phosphatase 101 U/L (45-117); Anion Gap 21 (5-15); BUN 16 mg/dL (7-18); BUN/Creat Ratio 15.2 RATIO (10-20); Calcium,Total 8.7 mg/dL (8.5-10.1); Chloride 101 mmol/L (98-107); Creatinine, Serum 1.05 mg/dL (0.55-1.02); EST Glomerular Filtration Rate 60 mL/min (>60); Est Glom Filt Rate - Afr Amer 72 mL/min (>60); Globulin 4.7 g/dL (2.2-4.2); Glucose 447 mg/dL (74-106); Lipase 20 U/L (73-393); Potassium 5.2 mmol/L (3.5-5.1); Protein, Total 8.3 g/dL (6.4-8.2); Sodium Level 131 mmol/L (136-145); Troponin-I HS 10 pg/mL (3.0-54.0)
[2021-04-17 10:43] LABS: Mucous, Urine 0 SEEN /hpf (<or=2+); Red Blood Cells-Urine 0 SEEN /hpf (0-5); White Blood Cells 0 SEEN /hpf (0-5)
--- NOTE | 2021-04-17 10:45 | CT_ITS ---
STUDY: CT ABDOMEN AND PELVIS WITH CONTRAST REASON FOR EXAM: Female, 45 years old. Abd pain, leukocytosis RADIATION DOSAGE (If Supplied By Facility): CTDIvol = ( 17.69 ) mGy, DLP = ( 1945.45 ) mGycm TECHNIQUE: Transaxial images were obtained from the dome of the diaphragm to the symphysis pubis without oral contrast. IV 100mL Isovue-300 was administered. Sagittal and coronal images were reconstructed. Individualized dose optimization techniques were used for this CT. COMPARISON: None. FINDINGS: The visualized lung bases are unremarkable. Coronary artery calcification. There is decreased attenuation of the liver consistent with steatosis. There are surgical clips in the gallbladder fossa consistent with a prior cholecystectomy. Normal spleen. Normal pancreas. Normal bilateral adrenal glands. Tiny nonobstructive calculus in the upper pole of the right kidney. Nonobstructive calculi are seen within the upper pole of the left kidney. There is a small hiatal hernia. Normal small intestine. There are scattered colonic diverticula consistent with diverticulosis. The appendix is visualized and appears normal. There is scattered atherosclerotic calcification of the abdominal aorta, without a demonstrated aneurysm. Normal inferior vena cava. Normal retroperitoneum. Normal urinary bladder. Follicles are seen in the left ovary. Normal abdominal wall. There are diffuse degenerative changes of the visualized lumbar spine. The patient is status post laminectomy and interpedicular screw fixation at the L4-L5 and L5-S1. CT/Abdomen/Pelvis W IV Cont ONLY IMPRESSION: Nonobstructive bilateral intrarenal calculi. Sigmoid diverticulosis. Electronically Signed: Jacobo Joshi MD at 12:30 EDT , Service support ,
[2021-04-17 10:50] LABS: Lactic Acid 1.9 mmol/L (0.4-1.9)
[2021-04-17 10:51] LABS: Color, Urine Yellow (Yellow); Glucose, Dipstick 1000 mg/dl (Normal); Leukocyte Esterase-Dipstick Negative /ul (Negative); Nitrite-Dipstick Negative (Negative); Occult Blood-Urine Negative /ul (Negative); Protein-Dipstick 15 mg/dl (Negative); Urine Bilirubin Dipstick Negative (Negative); Urine Clarity Sl. Cloudy (Clear); Urine Urobilinogen Normal (Normal)
[2021-04-17 11:01] LABS: Ketone-Dipstick 150 mg/dl (Negative)
[2021-04-17 11:02] LABS: Bacteria 1+ /hpf (None Seen); Squamous Epithelial Cells - UA 5-10 SEEN /hpf (5-10)
[2021-04-17 11:03] LABS: Internal QC Validated? YES +Cl - CLEAR BKGD; Pregnancy, Urine Negative Negative
[2021-04-17] MEDS: LORazepam 2 MG/ML Syringe 1 MG IV (11:03)
[2021-04-17] MEDS: 0.9% Normal Saline 1,000 ML 999 ML IV (11:37)
--- NOTE | 2021-04-17 11:58 | PCM.HP.STD ---
HPI - General General Date of Admission: 04/17/21 Date of Service: 04/17/21 Chief Complaint: Generalized weakness, nausea and vomiting -3 days HPI Narrative ADELFO BACK, is a 45 F who presents with above. Patient stated that she has been feeling very depressed. She has social issues with her family and . She denied any homicidal or suicidal ideation. She was so depressed that she was not taking any of her medications. She feels short of breath, she has been nauseous and vomiting. She denied any fever or chills. She denied having any sick contact. Vitals in the ED were significant for hypertension and tachycardia. Her admitting blood work was significant for bicarb of 9, anion gap of 21, blood glucose of 447. [facility] Medical History Asthma Atherosclerotic heart disease of [place] coronary artery without angina pectoris Chronic obstructive pulmonary disease Diabetes mellitus, type II Essential hypertension GERD (gastroesophageal reflux disease) History of anxiety Hypercholesterolemia Hypothyroidism Morbid obesity with BMI of 50.0-59.9, adult Nicotine dependence GEOVANI (obstructive sleep apnea) Sleep-disordered breathing Home Medications albuterol sulfate 1 - 2 puff INHALATION Q4H PRN PRN #1 inhaler 10/15/15 [Rx Last Taken 10/19/20] ondansetron 4 mg PO Q8H PRN PRN #10 tab 03/07/18 [Rx Last Taken 10/17/20] alprazolam 1 mg PO QHS PRN 08/18/18 [History Last Taken 10/19/20] budesonide-formoterol 2 puff PO BID 05/07/19 [History Last Taken 10/20/20] insulin regular human 26 units SUBCUT TIDCM 05/07/19 [History Last Taken 10/20/20] cyclobenzaprine 5 mg PO TID PRN PRN 07/19/19 [History Last Taken 10/13/20] trazodone 50 mg PO QHS PRN PRN 07/19/19 [History Last Taken 04/16/21 50] bupropion HCl 150 mg PO DAILY 09/25/20 [History Last Taken 10/20/20] bupropion HCl 300 mg PO DAILY 09/25/20 [History Last Taken 10/20/20] desvenlafaxine succinate 100 mg PO DAILY 09/25/20 [History Last Taken 10/20/20] aspirin 81 mg tablet,delayed release 81 mg PO DAILY@0800 #30 tablet 11/07/20 [Rx Last Taken Unknown] atorvastatin 80 mg tablet 80 mg PO QHS #30 tab 11/07/20 [Rx Last Taken Unknown] carvedilol 25 mg tablet 25 mg PO BID #60 tab 11/07/20 [Rx Last Taken Unknown] hydralazine 50 mg tablet 50 mg PO BID #90 tab 11/07/20 [Rx Last Taken Unknown] levothyroxine 200 mcg tablet 200 mcg PO DAILY #30 tab 11/07/20 [Rx Last Taken Unknown] levothyroxine 25 mcg tablet 25 mcg PO DAILY #30 tab 11/07/20 [Rx Last Taken Unknown] lisinopril 40 mg tablet 40 mg PO DAILY #30 tab 11/07/20 [Rx Last Taken Unknown] pantoprazole 40 mg tablet,delayed release 40 mg PO DAILY #30 tab 11/07/20 [Rx Last Taken Unknown] ticagrelor 90 mg tablet 90 mg PO BID #60 tablet 11/07/20 [Rx Last Taken Unknown] hydrocodone-acetaminophen 1 tab PO Q6H PRN PRN 3 Days #10 tablet 04/06/21 [Rx Last Taken Unknown] insulin NPH isoph U-100 human 32 units SC BIDAC 04/06/21 [History Last Taken Unknown] lorazepam [Ativan] 1 mg PO DAILY PRN 04/06/21 [History Last Taken Unknown] Allergy/AdvReac Type Severity Reaction Status Date / Time metformin [From Glucophage] AdvReac Intermediate Diarrhea Verified 04/17/21 08:20 hydromorphone [From Dilaudid] AdvReac Itching Verified 04/17/21 08:20 morphine AdvReac Itching Verified 04/17/21 08:20 Family History Mother Cancer lung Father Hypertension COPD (chronic obstructive pulmonary disease) Daughter Factor V deficiency Grandmother Cancer lung COPD (chronic obstructive pulmonary disease) Surgical History History of back surgery History of delivery History of cholecystectomy History of coronary artery stent placement (09/26/20) History of dilatation and curettage History of left heart catheterization (10/08/20) History of percutaneous transluminal coronary angioplasty (~10/20/20) History of tonsillectomy and adenoidectomy History of tubal ligation Social History household members: none Smoking Status: Current every day smoker tobacco type: cigarettes alcohol intake: current alcohol intake frequency: holidays/special occasions only substance use type: does not use caffeine: Yes ROS ROS Narrative Constitutional: Reports: Malaise, Weakness, Fatigue. Denies: Anorexia, Chills, Fever, Night Sweats, Weight Change Eyes: Denies: Blurred vision, Cataracts, Conjunctivae Inflammation, Pain, Redness, Vision Change HEENT: Denies: Difficulty Hearing, Difficulty Swallowing, Head Aches, Hearing Changes, Sinus Congestion, Sinus Drainage Cardiovascular: Denies: Chest Pain, Orthopnea, Palpitations Respiratory: Admits to cough, Shortness of breath at rest, Sputum production Gastrointestinal: Admits to abdominal Pain, Nausea, Vomiting Genitourinary: Denies: Dysuria Musculoskeletal: Denies: Joint Pain, Joint stiffness, Joint swelling, Joint Tenderness Skin: Denies: Rash, Wounds Neurological: Denies: Numbness, Tingling, Focal weakness Vital Signs Vital Signs Vital Signs: 04/17/21 08:17 04/17/21 09:34 Temperature 97.9 F Temperature Source Oral Pulse Rate 119 H Respiratory Rate 19 H Respiratory Effort Normal Non-Labored Respiratory Pattern Normal Blood Pressure 152/101 H Blood Pressure Mean 118 Pulse Ox 100 Oxygen Delivery Method Room Air Weight Weight: 132.5 kg Body Mass Index (BMI) 48.6 Physical Exam Narrative Physical exam: General: Alert, Oriented x3, Cooperative, appears very anxious, severely dehydrated HEENT: Atraumatic Oral: Dry mucosa Neck: Supple Lungs: Clear to auscultation Cardiovascular: HS I+II, tachycardic, no murmurs Abdomen: Bowel Sounds Present, Soft, Non Tender Extremities: No edema Results Lab / Micro Data Result Diagrams: 04/17/21 09:20 04/17/21 16:15 Labs: Laboratory Results - last 24 hr 04/17/21 08:33: COVID-19 (ROSALINDA) Not Detected 04/17/21 09:20: WBC 23.7 H, RBC 4.61, Hgb 15.3 H, Hct 46.5, MCV 100.9 H, MCH 33.2 H, MCHC 32.9, RDW Std Deviation 50.4 H, RDW Coeff of Whitney 13.6, Plt Count 361, MPV 10.2, Immature Gran % (Auto) 1.000 H, Neut % (Auto) 80.0 H, Lymph % (Auto) 14.6 L, [place] % (Auto) 3.5, Eos % (Auto) 0.4, Baso % (Auto) 0.5, Absolute Neuts (auto) 18.9 H, Absolute Lymphs (auto) 3.46, Nucleated RBC % 0 04/17/21 09:20: Sodium Cancelled, Potassium Cancelled, Chloride Cancelled, Carbon Dioxide Cancelled, Anion Gap Cancelled, BUN Cancelled, Creatinine Cancelled, Estim Creat Clear Calc Cancelled, Est GFR (MDRD) Af Amer Cancelled, Est GFR (MDRD) Non-Af Cancelled, BUN/Creatinine Ratio Cancelled, Glucose Cancelled, Calcium Cancelled, Total Bilirubin Cancelled, AST Cancelled, ALT Cancelled, Alkaline Phosphatase Cancelled, Troponin I High Sens Cancelled, Total Protein Cancelled, Albumin Cancelled, Globulin Cancelled, Albumin/Globulin Ratio Cancelled, Lipase Cancelled 04/17/21 10:00: Lactic Acid 1.9 04/17/21 10:00: Sodium 131 L, Potassium 5.2 H, Chloride 101, Carbon Dioxide 9.0 L*, Anion Gap 21 H, BUN 16, Creatinine 1.05 H, Estim Creat Clear Calc 59.60, Est GFR (MDRD) Af Amer 72, Est GFR (MDRD) Non-Af 60, BUN/Creatinine Ratio 15.2, Glucose 447 H, Calcium 8.7, Total Bilirubin 0.70, AST 8 L, ALT 18, Alkaline Phosphatase 101, Troponin I High Sens 10, Total Protein 8.3 H, Albumin 3.6, Globulin 4.7 H, Albumin/Globulin Ratio 0.8 L, Lipase 20 L 04/17/21 10:34: Urine Color Yellow, Urine Clarity Sl. Cloudy, Urine pH 5.0, Ur Specific [place] 1.020, Urine Protein 15 H, Urine Glucose (UA) 1000 H, Urine Ketones 150 A*, Urine Occult Blood Negative, Urine Nitrite Negative, Urine Bilirubin Negative, Urine Urobilinogen Normal, Ur Leukocyte Esterase Negative, Urine RBC 0 SEEN, Urine WBC 0 SEEN, Ur Squamous Epith Cells 5-10 SEEN, Urine Bacteria 1+, Urine Mucus 0 SEEN, Urine Test Negative 04/17/21 11:30: Acetone Level MODERATE H Radiology Impression Chest X-Ray 04/17/21 08:45 IMPRESSION: Borderline cardiomegaly. Electronically Signed: Jacobo Joshi MD at 9:02 EDT , Service support , Assessment & Plan Assessment/Plan (1) DKA (diabetic ketoacidosis): (2) Nonadherence to medication: (3) Anxiety: (4) Essential hypertension: (5) Hypercholesterolemia: PLAN: 1. Acute DKA secondary to noncompliance Patient presented with bicarb of 9, gap of 21 We will continue on DKA protocol, insulin drip 2. Hypertensive urgency secondary to noncompliance We will resume home meds, as needed labetalol 3. Leukocytosis secondary to #1, no signs of infection, will trend 4. Acute depression/anxiety probably situational, continue on patient's bupropion, and Effexor as well as Ativan as needed 5. Rest of her chronic medical conditions including CAD status post stent, hypothyroidism Patient has no signs of active chest pain Continue on aspirin, statin, beta-aj, lisinopril, Brilinta 6. Morbid obesity, BMI 49.6, lifestyle modification recommended Charges/Coding Visit Charges Inpatient E&M: 02685 Init Hosp L3
[2021-04-17 12:01] LABS: Bedside Glucose 477 mg/dL (70-110)
[2021-04-17 12:21] LABS: Magnesium 1.9 mg/dL (1.6-2.6); Phosphorus 2.9 mg/dL (2.5-4.9)
--- NOTE | 2021-04-17 12:39 | NURSING ---
[facility]
--- NOTE | 2021-04-17 12:54 | PCS.PANDOC ---
PANDEMIC DOCUMENTATION INITIATED: Date: 02/18/2021 Time: 190
[2021-04-17 13:06] LABS: Bedside Glucose 374 mg/dL (70-110)
--- NOTE | 2021-04-17 13:16 | NURSING ---
admitted to cvicu 203 , here given wallet & cigaretts
[2021-04-17] MEDS: 0.9% Normal Saline 1,000 ML 500 ML IV (13:51)
[2021-04-17 13:55] LABS: Anion Gap 19 (5-15); BUN 17 mg/dL (7-18); BUN/Creat Ratio 16.2 RATIO (10-20); Calcium,Total 7.8 mg/dL (8.5-10.1); Chloride 112 mmol/L (98-107); Creatinine, Serum 1.05 mg/dL (0.55-1.02); EST Glomerular Filtration Rate 60 mL/min (>60); Est Glom Filt Rate - Afr Amer 72 mL/min (>60); Glucose 332 mg/dL (74-106); Potassium 4.4 mmol/L (3.5-5.1); Sodium Level 138 mmol/L (136-145)
[2021-04-17 14:01] LABS: Bedside Glucose 310 mg/dL (70-110)
--- NOTE | 2021-04-17 15:06 | CASEMGMT ---
Physician asked SW to speak w/pt, pt has indicated has not been taking insulin due to issues w/her . SW met pt, introduced self. Pt would prefer to speak w/SW tomorrow. SW to follow up tomorrow. CJ Stapleton
[2021-04-17 15:16] LABS: Bedside Glucose 226 mg/dL (70-110)
[2021-04-17] MEDS: Dext 5%-0.45% NS 1,000 ML 150 ML IV ×2 (15:35→21:21)
[2021-04-17] MEDS: LORazepam 2 MG/ML Syringe 0.5 MG IV (15:39)
[2021-04-17 16:20] LABS: Bedside Glucose 227 mg/dL (70-110)
[2021-04-17 16:50] LABS: Anion Gap 16 (5-15); BUN 16 mg/dL (7-18); BUN/Creat Ratio 15.5 RATIO (10-20); Chloride 112 mmol/L (98-107); Creatinine, Serum 1.03 mg/dL (0.55-1.02); EST Glomerular Filtration Rate 61 mL/min (>60); Est Glom Filt Rate - Afr Amer 74 mL/min (>60); Estimated Creatinine Clearance 58.31 ml/min; Glucose 235 mg/dL (74-106); Sodium Level 136 mmol/L (136-145)
[2021-04-17 17:05] LABS: Bedside Glucose 268 mg/dL (70-110)
[2021-04-17] MEDS: HYDROcodone Bitartrate/Apap 5/325 Tablet PO (17:11)
[2021-04-17] MEDS: Carvedilol 25 MG Tablet PO (17:12)
[2021-04-17] MEDS: hydrALAZINE 50 MG Tablet PO (17:12)
[2021-04-17] MEDS: Labetalol (Prefilled) 20 MG/4 ML IV (18:18)
[2021-04-17 18:20] LABS: Bedside Glucose 289 mg/dL (70-110)
[2021-04-17] MEDS: Budesonide Respules 0.5 MG/2 ML AMPUL.NEB. INHALATION (19:09)
[2021-04-17] MEDS: Albuterol 2.5 MG/3 ML VIAL.NEB. INHALATION (19:09)
[2021-04-17 20:11] LABS: Bedside Glucose 342 mg/dL (70-110)
[2021-04-17 20:11] LABS: Bedside Glucose 338 mg/dL (70-110)
[2021-04-17 21:25] LABS: Bedside Glucose 347 mg/dL (70-110)
[2021-04-17] MEDS: proCHLORPERazine 10 MG/2 ML Vial 5 MG IV (21:46)
[2021-04-17] MEDS: hydrALAZINE 20 MG/ML Vial 10 MG IV (21:47)
[2021-04-17] MEDS: 0.9% Saline Lock 10 ML Syringe IV (21:52)
[2021-04-17 22:04] LABS: Anion Gap 16 (5-15); BUN 13 mg/dL (7-18); BUN/Creat Ratio 11.1 RATIO (10-20); Calcium,Total 8.3 mg/dL (8.5-10.1); Chloride 111 mmol/L (98-107); Creatinine, Serum 1.17 mg/dL (0.55-1.02); EST Glomerular Filtration Rate 53 mL/min (>60); Est Glom Filt Rate - Afr Amer 64 mL/min (>60); Estimated Creatinine Clearance 51.33 ml/min; Glucose 363 mg/dL (74-106); Sodium Level 136 mmol/L (136-145)
[2021-04-17 22:26] LABS: Bedside Glucose 345 mg/dL (70-110)
[2021-04-17 23:20] LABS: Bedside Glucose 361 mg/dL (70-110)
[2021-04-18] VITALS (22 sets, daily range): BP systolic 86–156; BP diastolic 61–99; PULSE 90–124; RESP 14–27; TEMP 36.4–36.8; O2SAT 95–99
[2021-04-18] MEDS: hydrALAZINE 50 MG Tablet PO ×3 (00:15→22:13)
[2021-04-18] MEDS: Carvedilol 25 MG Tablet PO ×3 (00:15→22:13)
[2021-04-18] MEDS: TICAGRELOR 90 MG TABLET PO ×3 (00:16→22:15)
[2021-04-18] MEDS: Atorvastatin Calcium 80 MG Tablet PO ×2 (00:16→22:14)
[2021-04-18 00:30] LABS: Bedside Glucose 371 mg/dL (70-110)
[2021-04-18 01:16] LABS: Bedside Glucose 288 mg/dL (70-110)
[2021-04-18 01:46] LABS: Anion Gap 13 (5-15); BUN 12 mg/dL (7-18); BUN/Creat Ratio 10.3 RATIO (10-20); Calcium,Total 8.2 mg/dL (8.5-10.1); Chloride 112 mmol/L (98-107); Creatinine, Serum 1.16 mg/dL (0.55-1.02); EST Glomerular Filtration Rate 53 mL/min (>60); Est Glom Filt Rate - Afr Amer 64 mL/min (>60); Estimated Creatinine Clearance 51.77 ml/min; Glucose 321 mg/dL (74-106); Potassium 4.7 mmol/L (3.5-5.1); Sodium Level 136 mmol/L (136-145)
[2021-04-18 02:21] LABS: Bedside Glucose 326 mg/dL (70-110)
[2021-04-18 03:01] LABS: Bedside Glucose 311 mg/dL (70-110)
[2021-04-18 04:11] LABS: Bedside Glucose 293 mg/dL (70-110)
[2021-04-18] MEDS: Levothyroxine 25 MCG TABLET PO (05:02)
[2021-04-18] MEDS: Levothyroxine 100 MCG Tablet 200 MCG PO (05:02)
[2021-04-18 05:05] LABS: Bedside Glucose 316 mg/dL (70-110)
[2021-04-18 05:42] LABS: Absolute Lymphocyte Count 4.49 X10^3/uL (0.83-4.51); Absolute Neutrophil Count 10.7 X10^3/uL (2.0-7.7); Basophil# 0.07 X10^3/uL; Basophil% 0.4 % (0-1); Hematocrit 41.4 % (37-47); Hemoglobin 13.9 g/dL (12.0-15.0); Lymphocyte # 4.49 X10^3/ul (0.83-4.51); Lymphocyte % 26.5 % (19-41); Mean Corp Hgb Conc 33.6 g/dL (32-36); Mean Corpuscular Hgb 32.9 pg (27.0-32.0); Mean Corpuscular Volume 97.9 fL (81-99); Monocyte# 1.56 X10^3/uL; Monocyte% 9.2 % (0-10); NRBC Flagged by Analyzer 0 % (0-5); Neutrophil # 10.73 X10^3/uL (2.7-7.7); Neutrophil % 63.2 % (47-70); POSITIVE DIFFERENTIAL YES; Platelet Count 320 K/mm3 (150-450); RBC Distribution Width CV 13.9 % (11.6-14.6); Red Blood Count 4.23 M/mm3 (4.2-5.4)
[2021-04-18 05:50] LABS: Differential Indicated SCAN CRITERIA MET
[2021-04-18 06:01] LABS: ALB/GLOB Ratio 0.8 RATIO (0.9-2.4); AST(SGOT) 7 U/L (15-37); Alanine Aminotransfer ALT/SGPT 15 U/L (13-56); Albumin, Serum 3.2 g/dL (3.2-5.0); Alkaline Phosphatase 85 U/L (45-117); Anion Gap 13 (5-15); BUN 15 mg/dL (7-18); BUN/Creat Ratio 13.3 RATIO (10-20); Calcium,Total 8.3 mg/dL (8.5-10.1); Chloride 113 mmol/L (98-107); Creatinine, Serum 1.13 mg/dL (0.55-1.02); EST Glomerular Filtration Rate 55 mL/min (>60); Est Glom Filt Rate - Afr Amer 66 mL/min (>60); Estimated Creatinine Clearance 53.15 ml/min; Globulin 4.2 g/dL (2.2-4.2); Glucose 309 mg/dL (74-106); Potassium 4.5 mmol/L (3.5-5.1); Protein, Total 7.4 g/dL (6.4-8.2); Sodium Level 137 mmol/L (136-145)
[2021-04-18 06:16] LABS: Bedside Glucose 317 mg/dL (70-110)
[2021-04-18 06:56] LABS: Bedside Glucose 262 mg/dL (70-110)
[2021-04-18] MEDS: Albuterol 2.5 MG/3 ML VIAL.NEB. INHALATION ×3 (06:57→19:01)
[2021-04-18] MEDS: Budesonide Respules 0.5 MG/2 ML AMPUL.NEB. INHALATION ×2 (06:57→19:01)
--- NOTE | 2021-04-18 07:28 | PN.HOSP_ITS ---
Subjective Subjective Follow-up on acute DKA/noncompliance: Patient was seen and examined. No acute events overnight. She is on the ins ulin drip. She is restarted on her maintenance insulin. She feels much improved. Blood pressures are better controlled. Objective Data Objective Data Vital Signs: Vital Signs Temp Pulse Resp BP Pulse Ox 98.2 F 112 H 25 H 100/69 97 04/18/21 05:00 04/18/21 07:00 04/18/21 07:00 04/18/21 07:00 04/18/21 07:00 Oxygen Delivery Method Room Air Weight: 132 kg Body Mass Index (BMI) 49.6 Intake & Output: Intake and Output for Last 24 Hours 04/16/21 04/17/21 04/18/21 23:59 23:59 23:59 Intake Total 4326.43 / 4426.43 1122.38 / 1122.38 Output Total 1301 / 1301 Balance 3025.43 / 3125.43 1122.38 / 1122.38 Lab / Micro Data Result Diagrams: 04/18/21 05:30 04/18/21 05:30 Labs: Laboratory Results - last 24 hr 04/17/21 08:33: COVID-19 (ROSALINDA) Not Detected 04/17/21 09:20: WBC 23.7 H, RBC 4.61, Hgb 15.3 H, Hct 46.5, MCV 100.9 H, MCH 33.2 H, MCHC 32.9, RDW Std Deviation 50.4 H, RDW Coeff of Whitney 13.6, Plt Count 361, MPV 10.2, Immature Gran % (Auto) 1.000 H, Neut % (Auto) 80.0 H, Lymph % (Auto) 14.6 L, Moody % (Auto) 3.5, Eos % (Auto) 0.4, Baso % (Auto) 0.5, Absolute Neuts (auto) 18.9 H, Absolute Lymphs (auto) 3.46, Nucleated RBC % 0 04/17/21 09:20: Sodium Cancelled, Potassium Cancelled, Chloride Cancelled, Carbon Dioxide Cancelled, Anion Gap Cancelled, BUN Cancelled, Creatinine Cancelled, Estim Creat Clear Calc Cancelled, Est GFR (MDRD) Af Amer Cancelled, Est GFR (MDRD) Non-Af Cancelled, BUN/Creatinine Ratio Cancelled, Glucose Cancelled, Calcium Cancelled, Total Bilirubin Cancelled, AST Cancelled, ALT Cancelled, Alkaline Phosphatase Cancelled, Troponin I High Sens Cancelled, Total Protein Cancelled, Albumin Cancelled, Globulin Cancelled, Albumin/Globulin Ratio Cancelled, Lipase Cancelled 04/17/21 10:00: Lactic Acid 1.9 04/17/21 10:00: Sodium 131 L, Potassium 5.2 H, Chloride 101, Carbon Dioxide 9.0 L*, Anion Gap 21 H, BUN 16, Creatinine 1.05 H, Estim Creat Clear Calc 59.60, Est GFR (MDRD) Af Amer 72, Est GFR (MDRD) Non-Af 60, BUN/Creatinine Ratio 15.2, Glucose 447 H, Calcium 8.7, Total Bilirubin 0.70, AST 8 L, ALT 18, Alkaline P hosphatase 101, Troponin I High Sens 10, Total Protein 8.3 H, Albumin 3.6, Globulin 4.7 H, Albumin/Globulin Ratio 0.8 L, Lipase 20 L 04/17/21 10:34: Urine Color Yellow, Urine Clarity Sl. Cloudy, Urine pH 5.0, Ur Specific [place] 1.020, Urine Protein 15 H, Urine Glucose (UA) 1000 H, Urine Ketones 150 A*, Urine Occult Blood Negative, Urine Nitrite Negative, Urine Bilirubin Negative, Urine Urobilinogen Normal, Ur Leukocyte Esterase Negative, Urine RBC 0 SEEN, Urine WBC 0 SEEN, Ur Squamous Epith Cells 5-10 SEEN, Urine Bacteria 1+, Urine Mucus 0 SEEN, Urine Test Negative 04/17/21 11:30: Acetone Level MODERATE H 04/17/21 11:30: Phosphorus 2.9, Magnesium 1.9 04/17/21 11:55: POC Glucose 477 H* 04/17/21 13:01: POC Glucose 374 H 04/17/21 13:30: Sodium 138, Potassium 4.4, Chloride 112 H, Carbon Dioxide 7.0 L* , Anion Gap 19 H, BUN 17, Creatinine 1.05 H, Estim Creat Clear Calc 57.20, Est GFR (MDRD) Af Amer 72, Est GFR (MDRD) Non-Af 60, BUN/Creatinine Ratio 16.2, Glucose 332 H, Calcium 7.8 L 04/17/21 13:56: POC Glucose 310 H 04/17/21 15:01: POC Glucose 226 H 04/17/21 16:11: POC Glucose 227 H 04/17/21 16:15: Sodium 136, Potassium 5.0, Chloride 112 H, Carbon Dioxide 8.0 L* , Anion Gap 16 H, BUN 16, Creatinine 1.03 H, Estim Creat Clear Calc 58.31, Est GFR (MDRD) Af Amer 74, Est GFR (MDRD) Non-Af 61, BUN/Creatinine Ratio 15.5, Glucose 235 H, Calcium 8.0 L 04/17/21 16:59: POC Glucose 268 H 04/17/21 18:17: POC Glucose 289 H 04/17/21 19:16: POC Glucose 338 H 04/17/21 20:05: POC Glucose 342 H 04/17/21 21:16: POC Glucose 347 H 04/17/21 21:40: Sodium 136, Potassium 5.0, Chloride 111 H, Carbon Dioxide 9.0 L* , Anion Gap 16 H, BUN 13, Creatinine 1.17 H, Estim Creat Clear Calc 51.33, Est GFR (MDRD) Af Amer 64, Est GFR (MDRD) Non-Af 53 L, BUN/Creatinine Ratio 11.1, Glucose 363 H, Calcium 8.3 L 04/17/21 22:22: POC Glucose 345 H 04/17/21 23:18: POC Glucose 361 H 04/18/21 00:09: POC Glucose 371 H 04/18/21 01:07: POC Glucose 288 H 04/18/21 01:15: Sodium 136, Potassium 4.7, Chloride 112 H, Carbon Dioxide 11.0 L , Anion Gap 13, BUN 12, Creatinine 1.16 H, Estim Creat Clear Calc 51.77, Est GFR (MDRD) Af Amer 64, Est GFR (MDRD) Non-Af 53 L, BUN/Creatinine Ratio 10.3, Glucose 321 H, Calcium 8.2 L 04/18/21 02:11: POC Glucose 326 H 04/18/21 02:54: POC Glucose 311 H 04/18/21 04:05: POC Glucose 293 H 04/18/21 04:56: POC Glucose 316 H 04/18/21 05:30: Sodium 137, Potassium 4.5, Chloride 113 H, Carbon Dioxide 11.0 L , Anion Gap 13, BUN 15, Creatinine 1.13 H, Estim Creat Clear Calc 53.15, Est GFR (MDRD) Af Amer 66, Est GFR (MDRD) Non-Af 55 L, BUN/Creatinine Ratio 13.3, Glucose 309 H, Calcium 8.3 L, Total Bilirubin 0.60, AST 7 L, ALT 15, Alkaline Phosphatase 85, Total Protein 7.4, Albumin 3.2, Globulin 4.2, Albumin/Globulin Ratio 0.8 L 04/18/21 05:30: WBC 17.0 H, RBC 4.23, Hgb 13.9, Hct 41.4, MCV 97.9, MCH 32.9 H, MCHC 33.6, RDW Std Deviation 50.0 H, RDW Coeff of Whitney 13.9, Plt Count 320, MPV 10.0, Immature Gran % (Auto) 0.700, Neut % (Auto) 63.2, Lymph % (Auto) 26.5, Moody % (Auto) 9.2, Eos % (Auto) 0.0, Baso % (Auto) 0.4, Absolute Neuts (auto) 10.7 H, Absolute Lymphs (auto) 4.49, Nucleated RBC % 0, Diff Path Review November04/18/21 06:09: POC Glucose 317 H 04/18/21 06:53: POC Glucose 262 H Radiography Diagnostic Testing: Radiology Impression Chest X-Ray 04/17/21 08:45 IMPRESSION: Borderline cardiomegaly. Electronically Signed: Jacobo Joshi MD at 9:02 EDT , Service support , Abdomen/Pelvis CT 04/17/21 10:45 IMPRESSION: Nonobstructive bilateral intrarenal calculi. Sigmoid diverticulosis. Electronically Signed: Jacobo Joshi MD at 12:30 EDT , Service support , Rhythm Strip Rhythm Strip: Sinus Tach Rate: 112 Ectopy: None Physical Exam Narrative Physical exam: General: Alert, Oriented x3, Cooperative, well- hydrated, comfortable, morbidly obese HEENT: Atraumatic Oral: Dry mucosa Neck: Supple Lungs: Clear to auscultation Cardiovascular: HS I+II, regular, no murmurs Abdomen: Bowel Sounds Present, Soft, Non Tender Extremities: No edema Assessment & Plan Assessment/Plan (1) DKA (diabetic ketoacidosis): (2) Nonadherence to medication: (3) Anxiety: (4) Essential hypertension: (5) Hypercholesterolemia: PLAN: 1. Acute DKA secondary to noncompliance, resolved Patient transitioned to her home insulin regimen and allowed to eat. We will continue to monitor blood glucose on insulin regimen before meals and at bedtime Transfer out of ICU 2. Hypertensive urgency secondary to noncompliance, resolved Blood pressure better controlled on home regimen 3. Leukocytosis secondary to #1, no signs of infection, improved, will trend 4. Acute depression/anxiety probably situational, Continue on patient's bupropion, and Effexor as well as Ativan as needed Discussed with patient, she will follow-up with her outpatient psychiatrist 5. Rest of her chronic medical conditions including CAD status post stent, hypothyroidism Patient has no signs of active chest pain Continue on aspirin, statin, beta-aj, lisinopril, Brilinta 6. Morbid obesity, BMI 49.6, lifestyle modification recommended Charges/Coding Visit Charges Inpatient E&M: 87221 Subs Hosp L2
[2021-04-18] MEDS: Insulin NPH Human 100 UNITS/ML PEN 32 UNITS SC (08:02)
[2021-04-18] MEDS: Insulin Lispro 100 UNIT/ML INSULN.PEN 22 UNIT SC ×2 (08:06→12:41)
[2021-04-18] MEDS: Insulin Lispro 100 UNIT/ML INSULN.PEN SC ×3 (08:06→22:20)
[2021-04-18] MEDS: Venlafaxine XR 75 MG Capsule PO (08:07)
[2021-04-18] MEDS: Aspirin E.C. 81 MG Tablet PO (08:07)
[2021-04-18] MEDS: Pantoprazole Sodium 40 MG Tablet PO (08:07)
[2021-04-18] MEDS: buPROPion (XL) 150 MG TABLET.XL PO (08:09)
[2021-04-18] MEDS: buPROPion (XL) 300 MG TABLET.XL PO (08:09)
[2021-04-18] MEDS: 0.9% Saline Lock 10 ML Syringe IV (08:13)
[2021-04-18 08:20] LABS: Bedside Glucose 276 mg/dL (70-110)
[2021-04-18 09:30] LABS: Base Excess -25 mmol/L (-2 to +2); Blood Gas Specimen Type ART; O2 Delivery Device Room Air; PO2 112 mmHG (75-100); SITE L Brach; SO2 97 % (95-99); Total Carbon Dioxide < 5 mmol/L; pCO2 12.4 mmHg (35-45); pH 7.12 (7.35-7.45)
--- NOTE | 2021-04-18 09:40 | CASEMGMT ---
RUDI NUNEZ Face to Face with patient for initial transition planning/care coordination assessment. RUDI NUNEZ introduced self and role at [facility]. Patient lying in bed, alert and oriented. Patient willing to participate in assessment and is able to answer all questions appropriately. Care providers, pharmacy, and demographics verified. Patient wishes to discharge home, denies need for home health at this time. Patient states she has no further needs or concerns at this time. CM to follow for discharge planning needs that may arise. PCP: Mateo Specialists: none Preferred Pharmacy: [facility] Insurance: [employer] EFREN RAHMAN Prescription Benefit: yes Living Will/HPOA: none LNOK: Living Arrangements: Patient lives with in a first floor apartment with no steps to enter. Patient states she is independent at home. Transportation: DME/C: Patient states she has a glucometer with testing supplies and insulin with supplies. Patient mentioned she had no been taking her insulin because she was depressed and had things going on. RUDI NUNEZ updated SW regarding depression. Patient states she smoke 1/2 PPD of cigarettes and denied information regarding cessation. Disposition Plan: Patient to discharge home with family support and follow-up plans in place. Lupe OGDEN, RN, CM
--- NOTE | 2021-04-18 10:33 | CASEMGMT ---
SW went to patient's room. Door was closed, but SW did knock. Patient was lying on her side with eyes closed. SW woke her up and introduced self. SW asked if she is open to talking and she said she would prefer SW come back another time. SW will continue to try and talk with patient. Guillermina Pina [employer]ING[employer] PAULETTE
[2021-04-18 12:46] LABS: Bedside Glucose 171 mg/dL (70-110)
--- NOTE | 2021-04-18 14:55 | CASEMGMT ---
SW went to patient's room. She was sleeping, but SW did wake her up. NITZA told her SW would really like to talk with her as the doctor said she is depressed. She agreed and said she has some issues with her and kid. SW asked if she sees a counselor. She does not, but she sees a Psychiatrist for her medication. SW asked if she feels it would be helpful for her to see a counselor. She agreed it would help. SW tried to ask more questions, but patient kept dozing off. NITZA woke her up one last time and told her SW will let her rest for now, but SW really wants to talk with her and make sure she is okay before she leaves the hospital. She apologized for dozing off and NITZA told her that is not necessary. NITZA told her we just want to make sure she is okay. She thanked NITZA. NITZA will check back with patient again. Guillermina Pina MSW PAULETTE
[2021-04-18 16:35] LABS: Bedside Glucose 81 mg/dL (70-110)
[2021-04-18 21:51] LABS: Bedside Glucose 169 mg/dL (70-110)
[2021-04-19] VITALS (13 sets, daily range): BP systolic 93–157; BP diastolic 60–100; PULSE 95–101; RESP 14–16; TEMP 36.4–36.8; O2SAT 94–100
[2021-04-19] MEDS: Ondansetron 4 MG/2 ML Vial IV ×2 (01:55→16:15)
[2021-04-19] MEDS: Acetaminophen 325 MG Tablet 650 MG PO ×2 (01:55→16:14)
[2021-04-19 05:54] LABS: ALB/GLOB Ratio 0.7 RATIO (0.9-2.4); AST(SGOT) 10 U/L (15-37); Alanine Aminotransfer ALT/SGPT 14 U/L (13-56); Alkaline Phosphatase 84 U/L (45-117); Anion Gap 14 (5-15); BUN 17 mg/dL (7-18); BUN/Creat Ratio 18.7 RATIO (10-20); Calcium,Total 8.5 mg/dL (8.5-10.1); Chloride 108 mmol/L (98-107); Creatinine, Serum 0.91 mg/dL (0.55-1.02); EST Glomerular Filtration Rate 70 mL/min (>60); Est Glom Filt Rate - Afr Amer 85 mL/min (>60); Globulin 4.2 g/dL (2.2-4.2); Glucose 395 mg/dL (74-106); Potassium 4.8 mmol/L (3.5-5.1); Protein, Total 7.2 g/dL (6.4-8.2); Sodium Level 134 mmol/L (136-145)
[2021-04-19 05:55] LABS: Absolute Lymphocyte Count 3.54 X10^3/uL (0.83-4.51); Absolute Neutrophil Count 8.8 X10^3/uL (2.0-7.7); Basophil# 0.02 X10^3/uL; Basophil% 0.2 % (0-1); Eosinophil# 0.04 X10^3/uL; Eosinophils% 0.3 % (0-5); Hematocrit 39.6 % (37-47); Hemoglobin 13.3 g/dL (12.0-15.0); Lymphocyte # 3.54 X10^3/ul (0.83-4.51); Lymphocyte % 26.7 % (19-41); Mean Corp Hgb Conc 33.6 g/dL (32-36); Mean Corpuscular Hgb 32.8 pg (27.0-32.0); Mean Corpuscular Volume 97.5 fL (81-99); Mean Platelet Vol. 10.3 fl (6.2-12.0); NRBC Flagged by Analyzer 0 % (0-5); Neutrophil # 8.82 X10^3/uL (2.7-7.7); Neutrophil % 66.4 % (47-70); Platelet Count 268 K/mm3 (150-450); RBC Distribution Width CV 13.9 % (11.6-14.6); RBC Distribution Width SD 50.3 fl (35.1-43.9); Red Blood Count 4.06 M/mm3 (4.2-5.4); White Blood Count 13.3 K/mm3 (4.4-11.0)
[2021-04-19 06:50] LABS: Bedside Glucose 436 mg/dL (70-110)
[2021-04-19] MEDS: Levothyroxine 100 MCG Tablet 200 MCG PO (06:53)
[2021-04-19] MEDS: Levothyroxine 25 MCG TABLET PO (06:53)
[2021-04-19] MEDS: Pantoprazole Sodium 40 MG Tablet PO (06:54)
--- NOTE | 2021-04-19 06:56 | NURSING ---
pt c/o sever dry mouth with thirst and heartburn, protonix given early.
[2021-04-19] MEDS: 0.9% Saline Lock 10 ML Syringe IV ×4 (08:47→18:44)
[2021-04-19] MEDS: proCHLORPERazine 10 MG/2 ML Vial 5 MG IV (08:47)
[2021-04-19] MEDS: Insulin Lispro 100 UNIT/ML INSULN.PEN SC ×3 (08:54→22:25)
[2021-04-19] MEDS: Insulin Lispro 100 UNIT/ML INSULN.PEN 26 UNIT SC ×2 (08:54→12:48)
[2021-04-19] MEDS: Lisinopril 40 MG Tablet PO (08:55)
[2021-04-19] MEDS: TICAGRELOR 90 MG TABLET PO ×2 (08:55→20:56)
[2021-04-19] MEDS: Carvedilol 25 MG Tablet PO (08:55)
[2021-04-19] MEDS: Aspirin E.C. 81 MG Tablet PO (08:55)
[2021-04-19] MEDS: buPROPion (XL) 300 MG TABLET.XL PO (08:55)
[2021-04-19] MEDS: Venlafaxine XR 75 MG Capsule PO (08:56)
[2021-04-19] MEDS: hydrALAZINE 50 MG Tablet PO ×2 (08:56→20:56)
[2021-04-19] MEDS: Lactated Ringers 1,000 ML 125 ML IV ×2 (09:03→18:28)
[2021-04-19 09:46] LABS: Pathologist Review Reviewed
[2021-04-19] MEDS: Insulin NPH Human 100 UNITS/ML PEN 32 UNITS SC ×2 (09:46→18:46)
--- NOTE | 2021-04-19 10:46 | CASEMGMT ---
SW spoke with patient. SW was able to get patient to open up a little more without falling asleep. She shared her issues have been with her and daughter. She said she has had temporary custody of her granddaughter while her daughter worked on her case plan with [facility]. She said her granddaughter gets to go back to her daughter, but she does not want to go back. SW listened and provided support. She sees Dr Jay at [facility]. She does not have a counselor, but she feels this would be helpful. She agreed to allow SW to make an appointment for her. SW called [facility]. Patient does have a counselor, Toma Guzman, but she has not seen her in awhile. She is booking out to June. SW would like an earlier appt so she will have an appt with a parish worker to make sure she is seen sooner than later. She will also have an appt with her counselor Jun 14 at 3p. She has an appt with Dr Jay on 05-01 at 5p. NITZA put these appointments in computer. SW will also let patient know this information. D/c appt's: [facility]: ThuApr [address] Jay (Psychiatrist) at [facility]: ThuMay 01 at 5p Toma Guzman (counselor): ThuJun 14 at 3p Guillermina CALDWELL
[2021-04-19] MEDS: LORazepam 2 MG/ML Syringe 1 MG IV (11:21)
[2021-04-19] MEDS: Metoclopramide 10 MG/2 ML Vial IV (11:21)
[2021-04-19] MEDS: Ketorolac 15 MG/ML Vial IV (11:21)
[2021-04-19 12:10] LABS: Bedside Glucose 324 mg/dL (70-110)
--- NOTE | 2021-04-19 14:19 | NURSING ---
Read and reviewed SN documentation. Reviewed plan of care with SN
--- NOTE | 2021-04-19 17:39 | PCM.PN.HOSP ---
Subjective Subjective Patient was seen and examined. Overnight, she was nauseous and did not eat well. Blood sugar dropped. Insulin regimen was held for some time. Blood sugars elevated this morning. She complains of feeling less depressed. She has a migrainous headache. She received Toradol and metoclopramide, with improvement. Objective Data Objective Data Vital Signs: Vital Signs Temp Pulse Resp BP Pulse Ox 97.7 F L 96 14 96/60 99 04/19/21 13:50 04/19/21 15:00 04/19/21 13:50 04/19/21 13:50 04/19/21 13:50 Oxygen Delivery Method Room Air Weight: 130.7 kg Body Mass Index (BMI) 49.6 Intake & Output: Intake and Output for Last 24 Hours 04/17/21 04/18/21 04/19/21 23:59 23:59 23:59 Intake Total 4326.43 / 4426.43 1540.05 / 1840.05 1848.75 / 1848.75 Output Total 1301 / 1301 Balance 3025.43 / 3125.43 1540.05 / 1840.05 1848.75 / 1848.75 Lab / Micro Data Result Diagrams: 04/19/21 05:10 04/19/21 05:10 Labs: Laboratory Results - last 24 hr 04/18/21 05:30: Diff Path Review Reviewed 04/18/21 21:39: POC Glucose 169 H 04/19/21 05:10: Sodium 134 L, Potassium 4.8, Chloride 108 H, Carbon Dioxide 12.0 L, Anion Gap 14, BUN 17, Creatinine 0.91, Estim Creat Clear Calc 66.00, Est GFR (MDRD) Af Amer 85, Est GFR (MDRD) Non-Af 70, BUN/Creatinine Ratio 18.7, Glucose 395 H, Calcium 8.5, Total Bilirubin 0.70, AST 10 L, ALT 14, Alkaline Phosphatase 84, Total Protein 7.2, Albumin 3.0 L, Globulin 4.2, Albumin/Globulin Ratio 0.7 L 04/19/21 05:10: WBC 13.3 H, RBC 4.06 L, Hgb 13.3, Hct 39.6, MCV 97.5, MCH 32.8 H, MCHC 33.6, RDW Std Deviation 50.3 H, RDW Coeff of Whitney 13.9, Plt Count 268, MPV 10.3, Immature Gran % (Auto) 0.400, Neut % (Auto) 66.4, Lymph % (Auto) 26.7, [place] % (Auto) 6.0, Eos % (Auto) 0.3, Baso % (Auto) 0.2, Absolute Neuts (auto) 8.8 H, Absolute Lymphs (auto) 3.54, Nucleated RBC % 0 04/19/21 06:35: POC Glucose 436 H 04/19/21 11:50: POC Glucose 324 H Micro: Microbiology 04/17/21 11:30 Blood Culture (Wb) - Arm Right Blood Culture - Preliminary No growth in 48 hours. 04/17/21 10:38 Blood Culture (Wb) - Arm Right Blood Culture - Preliminary No growth in 48 hours. Rhythm Strip Rhythm Strip: Sinus Tach Rate: 112 Ectopy: None Physical Exam Narrative Physical exam: General: Alert, Oriented x3, Cooperative, well- hydrated, comfortable, morbidly obese HEENT: Atraumatic Oral: Moist oral mucosa Neck: Supple Lungs: Clear to auscultation Cardiovascular: HS I+II, regular, no murmurs Abdomen: Bowel Sounds Present, Soft, Non Tender Extremities: No edema Assessment & Plan Assessment/Plan (1) DKA (diabetic ketoacidosis): (2) Nonadherence to medication: (3) Anxiety: (4) Essential hypertension: (5) Hypercholesterolemia: PLAN: 1. Acute DKA secondary to noncompliance, resolved 2. Type II DM, blood sugars have been fluctuating, continue home insulin regimen 2. Hypertensive urgency secondary to noncompliance, resolved Blood pressure better controlled, on home regimen Will decrease carvedilol to 12.5 mg p.o. twice daily 3. Leukocytosis secondary to #1, no signs of infection, improved, will trend 4. Acute depression/anxiety probably situational, Continue on patient's bupropion, and Effexor as well as Ativan as needed Discussed with patient, she will follow-up with her outpatient psychiatrist 5. Rest of her chronic medical conditions including CAD status post stent, hypothyroidism Patient has no signs of active chest pain Continue on aspirin, statin, beta-aj, lisinopril, Brilinta 6. Morbid obesity, BMI 49.6, lifestyle modification recommended Possible DC in a.m. Charges/Coding Visit Charges Inpatient E&M: 04778 Subs Hosp L2
[2021-04-19 17:50] LABS: Bedside Glucose 84 mg/dL (70-110)
[2021-04-19] MEDS: Metoclopramide 10 MG/2 ML Vial 5 MG IV (18:44)
[2021-04-19] MEDS: Atorvastatin Calcium 80 MG Tablet PO (20:59)
[2021-04-19] MEDS: Carvedilol 12.5 MG Tablet PO (20:59)
[2021-04-19 23:10] LABS: Bedside Glucose 172 mg/dL (70-110)
[2021-04-20] MEDS: Lactated Ringers 1,000 ML 125 ML IV (02:33)
[2021-04-20 02:36] VITALS: BP 145/90; PULSE 101; RESP 16; TEMP 36.9; O2SAT 100
[2021-04-20 03:00] VITALS: PULSE 106
[2021-04-20] MEDS: Levothyroxine 100 MCG Tablet 200 MCG PO (06:30)
[2021-04-20] MEDS: Levothyroxine 25 MCG TABLET PO (06:31)
[2021-04-20 08:12] VITALS: PULSE 109
[2021-04-20 08:45] VITALS: BP 117/73; PULSE 79; RESP 18; TEMP 36.6; O2SAT 95
[2021-04-20] MEDS: Insulin Lispro 100 UNIT/ML INSULN.PEN SC ×2 (08:48→12:45)
[2021-04-20] MEDS: Insulin NPH Human 100 UNITS/ML PEN 32 UNITS SC (08:49)
[2021-04-20] MEDS: Insulin Lispro 100 UNIT/ML INSULN.PEN 26 UNIT SC ×2 (08:50→12:46)
[2021-04-20] MEDS: Aspirin E.C. 81 MG Tablet PO (08:50)
[2021-04-20 08:51] VITALS: PULSE 100
[2021-04-20] MEDS: TICAGRELOR 90 MG TABLET PO (08:51)
[2021-04-20] MEDS: hydrALAZINE 50 MG Tablet PO (08:51)
[2021-04-20] MEDS: Pantoprazole Sodium 40 MG Tablet PO (08:52)
[2021-04-20] MEDS: Carvedilol 12.5 MG Tablet PO (08:52)
[2021-04-20] MEDS: Venlafaxine XR 75 MG Capsule PO (08:52)
[2021-04-20] MEDS: Lisinopril 40 MG Tablet PO (08:53)
[2021-04-20] MEDS: buPROPion (XL) 300 MG TABLET.XL PO (08:53)
[2021-04-20 09:01] LABS: Bedside Glucose 359 mg/dL (70-110)
--- NOTE | 2021-04-20 12:48 | DCINST_ITS ---
Discharge Instructions Diet Discharge Diet: Low fat / Low cholesterol, 2000 Calorie Control Diet and 2000 mg Sodium Diet Activity Discharge Activity: Return to Normal Activity Follow Up Care Please [facility] Test Results: Test results from this visit will be discussed in further detail at your follow-up appointment, if applicable. Discharge Plan Admission Admit Date/Time: 04/17/21 11:52 Primary Reason for Your Visit: Acute DKA Attending Provider: Mis Lal Primary Care Provider: Carlotta Galindo Instructions Additional Instructions / Restrictions: Continue to take your medications as prescribed. Follow-up with your psychiatrist as scheduled. Follow-up with your primary care doctor within 1 to 2 weeks. You will need repeat blood work to check on your kidney function. Discharge Orders/Prescriptions Prescriptions: New venlafaxine 75 mg Capsule,Extended Release 24hr 75 mg PO DAILY Qty: 0 RF: 0 carvedilol 12.5 mg Tablet 12.5 mg PO BID Qty: 0 RF: 0 metoclopramide HCl [Reglan] 5 mg tablet 5 mg PO TID PRN PRN (Reason: nausea/vomiting) Qty: 10 RF: 0 Continued albuterol sulfate 1 INHALER inhaler 1 - 2 puff inhalation Q4H PRN PRN (Reason: Wheezing) Qty: 1 RF: 0 alprazolam 1 MG tablet 1 mg PO QHS PRN (Reason: Anxiety) RF: 0 budesonide-formoterol 160-4.5MCG inhaler 2 puff PO BID RF: 0 insulin regular human 100 UNIT/ML solution 26 units subcut TIDCM RF: 0 cyclobenzaprine 10 MG tablet 5 mg PO TID PRN PRN (Reason: Muscle Spasm) RF: 0 trazodone 50 MG tablet 50 mg PO QHS PRN PRN (Reason: Sleep) RF: 0 bupropion HCl 300 MG tablet extended release 24 hr 300 mg PO DAILY RF: 0 bupropion HCl 150 MG tablet extended release 24 hr 150 mg PO DAILY RF: 0 insulin NPH isoph U-100 human 100 UNITS/ML insulin pen 32 units SC BIDAC RF: 0 hydrocodone-acetaminophen 1 TABLET tablet 1 tab PO Q6H PRN PRN (Reason: Pain) 3 Days Qty: 10 RF: 0 ticagrelor 90 mg tablet 90 mg PO BID Qty: 60 RF: 11 aspirin 81 mg tablet,delayed release (DR/EC) 81 mg PO DAILY@0800 Qty: 30 RF: 11 atorvastatin 80 mg tablet 80 mg PO QHS Qty: 30 RF: 11 hydralazine 50 mg tablet 50 mg PO BID Qty: 90 RF: 11 lisinopril 40 mg tablet 40 mg PO DAILY Qty: 30 RF: 11 pantoprazole 40 mg tablet,delayed release (DR/EC) 40 mg PO DAILY Qty: 30 RF: 11 levothyroxine 200 mcg tablet 200 mcg PO DAILY Qty: 30 RF: 11 levothyroxine 25 mcg tablet 25 mcg PO DAILY Qty: 30 RF: 11 Discontinued ondansetron 4 MG tablet 4 mg PO Q8H PRN PRN (Reason: Nausea) Qty: 10 RF: 0 desvenlafaxine succinate 50 MG tablet 100 mg PO DAILY RF: 0 lorazepam [Ativan] 1 mg Tablet 1 mg PO DAILY PRN (Reason: Anxiety) RF: 0 carvedilol 25 mg tablet 25 mg PO BID Qty: 60 RF: 11 Referrals / Follow Up: Carlotta Galindo MD [Primary Care Provider] - See Referral Note (Within 1 to 2 we eks) Disposition Disposition (needs filled in before D/C Order can be placed): Home, Self Care
--- NOTE | 2021-04-20 12:54 | PCM.DC.SUM ---
Providers Date of Admission: 04/17/21 Date of Discharge: 04/20/21 Primary Care Physician: Dr. Carlotta Galindo MD Reason For Visit: ACUTE DKA Diagnosis Discharge Diagnosis (1) DKA (diabetic ketoacidosis): Status: Acute Code(s): E11.10 - Type 2 diabetes mellitus with ketoacidosis without coma (2) Nonadherence to medication: Status: Acute Code(s): Z91.14 - Patient's other noncompliance with medication regimen (3) Anxiety: Status: Acute Code(s): F41.9 - Anxiety disorder, unspecified (4) Essential hypertension: Status: Chronic Code(s): I10 - Essential (primary) hypertension (5) Hypercholesterolemia: Status: Chronic Code(s): E78.00 - Pure hypercholesterolemia, unspecified Medications at Discharge Home Medications albuterol sulfate 1 - 2 puff INHALATION Q4H PRN PRN #1 inhaler 10/15/15 alprazolam 1 mg PO QHS PRN 08/18/18 budesonide-formoterol 2 puff PO BID 05/07/19 insulin regular human 26 units SUBCUT TIDCM 05/07/19 cyclobenzaprine 5 mg PO TID PRN PRN 07/19/19 trazodone 50 mg PO QHS PRN PRN 07/19/19 bupropion HCl 150 mg PO DAILY 09/25/20 bupropion HCl 300 mg PO DAILY 09/25/20 aspirin 81 mg tablet,delayed release 81 mg PO DAILY@0800 #30 tablet 11/07/20 atorvastatin 80 mg tablet 80 mg PO QHS #30 tab 11/07/20 hydralazine 50 mg tablet 50 mg PO BID #90 tab 11/07/20 levothyroxine 200 mcg tablet 200 mcg PO DAILY #30 tab 11/07/20 levothyroxine 25 mcg tablet 25 mcg PO DAILY #30 tab 11/07/20 lisinopril 40 mg tablet 40 mg PO DAILY #30 tab 11/07/20 pantoprazole 40 mg tablet,delayed release 40 mg PO DAILY #30 tab 11/07/20 ticagrelor 90 mg tablet 90 mg PO BID #60 tablet 11/07/20 hydrocodone-acetaminophen 1 tab PO Q6H PRN PRN 3 Days #10 tablet 04/06/21 insulin NPH isoph U-100 human 32 units SC BIDAC 04/06/21 carvedilol 12.5 mg PO BID #0 tab 04/20/21 metoclopramide HCl [Reglan] 5 mg PO TID PRN PRN #10 tab 04/20/21 venlafaxine 75 mg PO DAILY #0 cap 04/20/21 Hospital Course Operations None Procedures None Summary of Care Provided Minutes Spent on Discharge: 45 Hospital Course: 45 F who presents with feeling unwell, nausea and vomiting. Patient stated that she has been feeling very depressed. She has social issues with her family and . She denied any homicidal or suicidal ideation. She was so depressed that she was not taking any of her medications. She feels short of breath, she has been nauseous and vomiting. She was admitted to the ICU and managed on acute DKA protocol with improvement. She was transferred out of the ICU the next day. Patient however had episodes of nausea with headaches. This improved with Reglan and Toradol. She was seen by social work. She did not want me to make changes to her antidepressant. She will follow-up with her psychiatrist in the outpatient. She was also discharged on Reglan. She will follow up with her primary care doctor within 1 week for repeat blood work. Physical Exam Narrative Physical exam: General: Alert, Oriented x3, Cooperative, well- hydrated, comfortable, morbidly obese HEENT: Atraumatic Oral: Moist oral mucosa Neck: Supple Lungs: Clear to auscultation Cardiovascular: HS I+II, regular, no murmurs Abdomen: Bowel Sounds Present, Soft, Non Tender Extremities: No edema Weight / BMI Weight Weight: 131.8 kg Body Mass Index (BMI) 49.6 ABG / Lab / Microbiology Data Result Diagrams: 04/19/21 05:10 04/19/21 05:10 Laboratory: Laboratory Results - last 24 hr 04/19/21 17:45: POC Glucose 84 04/19/21 22:23: POC Glucose 172 H 04/20/21 08:47: POC Glucose 359 H Microbiology: Microbiology 04/17/21 11:30 Blood Culture (Wb) - Arm Right Blood Culture - Preliminary No growth in 48 hours. 04/17/21 10:38 Blood Culture (Wb) - Arm Right Blood Culture - Preliminary No growth in 48 hours. D/C Instructions Discharge Diet: Low fat / Low cholesterol, 2000 Calorie Control Diet and 2000 mg Sodium Diet Please Follow Up With: [facility] Info Meaningful Use Diagnoses (Choose all that apply): None applicable Discharge Plan Admission Admit Date/Time: 04/17/21 11:52 Primary Reason for Your Visit: Acute DKA Attending Provider: Mis Lal Primary Care Provider: Carlotta Galindo Instructions Additional Instructions / Restrictions: Continue to take your medications as prescribed. Follow-up with your psychiatrist as scheduled. Follow-up with your primary care doctor within 1 to 2 weeks. You will need repeat blood work to check on your kidney function. Discharge Orders/Prescriptions Prescriptions: New venlafaxine 75 mg Capsule,Extended Release 24hr 75 mg PO DAILY Qty: 0 RF: 0 carvedilol 12.5 mg Tablet 12.5 mg PO BID Qty: 0 RF: 0 metoclopramide HCl [Reglan] 5 mg tablet 5 mg PO TID PRN PRN (Reason: nausea/vomiting) Qty: 10 RF: 0 Continued albuterol sulfate 1 INHALER inhaler 1 - 2 puff inhalation Q4H PRN PRN (Reason: Wheezing) Qty: 1 RF: 0 alprazolam 1 MG tablet 1 mg PO QHS PRN (Reason: Anxiety) RF: 0 budesonide-formoterol 160-4.5MCG inhaler 2 puff PO BID RF: 0 insulin regular human 100 UNIT/ML solution 26 units subcut TIDCM RF: 0 cyclobenzaprine 10 MG tablet 5 mg PO TID PRN PRN (Reason: Muscle Spasm) RF: 0 trazodone 50 MG tablet 50 mg PO QHS PRN PRN (Reason: Sleep) RF: 0 bupropion HCl 300 MG tablet extended release 24 hr 300 mg PO DAILY RF: 0 bupropion HCl 150 MG tablet extended release 24 hr 150 mg PO DAILY RF: 0 insulin NPH isoph U-100 human 100 UNITS/ML insulin pen 32 units SC BIDAC RF: 0 hydrocodone-acetaminophen 1 TABLET tablet 1 tab PO Q6H PRN PRN (Reason: Pain) 3 Days Qty: 10 RF: 0 ticagrelor 90 mg tablet 90 mg PO BID Qty: 60 RF: 11 aspirin 81 mg tablet,delayed release (DR/EC) 81 mg PO DAILY@0800 Qty: 30 RF: 11 atorvastatin 80 mg tablet 80 mg PO QHS Qty: 30 RF: 11 hydralazine 50 mg tablet 50 mg PO BID Qty: 90 RF: 11 lisinopril 40 mg tablet 40 mg PO DAILY Qty: 30 RF: 11 pantoprazole 40 mg tablet,delayed release (DR/EC) 40 mg PO DAILY Qty: 30 RF: 11 levothyroxine 200 mcg tablet 200 mcg PO DAILY Qty: 30 RF: 11 levothyroxine 25 mcg tablet 25 mcg PO DAILY Qty: 30 RF: 11 Discontinued ondansetron 4 MG tablet 4 mg PO Q8H PRN PRN (Reason: Nausea) Qty: 10 RF: 0 desvenlafaxine succinate 50 MG tablet 100 mg PO DAILY RF: 0 lorazepam [Ativan] 1 mg Tablet 1 mg PO DAILY PRN (Reason: Anxiety) RF: 0 carvedilol 25 mg tablet 25 mg PO BID Qty: 60 RF: 11 Referrals / Follow Up: Carlotta Galindo MD [Primary Care Provider] - See Referral Note (Within 1 to 2 weeks) Disposition Disposition (needs filled in before D/C Order can be placed): Home, Self Care Charges/Coding Visit Charges Inpatient E&M: 52112 Disch Hosp
[2021-04-20 12:55] LABS: Bedside Glucose 247 mg/dL (70-110)
== END 2021-04-20 13:54 | disposition home or self-care (01) | DRG 638 ==
LOC: ED 08:31 → ICU 12:02 → PCU 04-19 08:53
PROVIDERS: Hospitalist; Admitting Provider Internal Medicine; Emergency Provider Emergency Medicine; PCP Internal Medicine; Visit Provider Internal Medicine
DX: E11.10 Type 2 diabetes mellitus with ketoacidosis without coma (principal); Z68.42 Body mass index [BMI] 45.0-49.9, adult; I25.10 Atherosclerotic heart disease of native coronary artery without angina pectoris; I16.0 Hypertensive urgency; I10 Essential (primary) hypertension; I25.2 Old myocardial infarction; E78.00 Pure hypercholesterolemia, unspecified; E03.9 Hypothyroidism, unspecified; F43.23 Adjustment disorder with mixed anxiety and depressed mood; E66.01 Morbid (severe) obesity due to excess calories; J44.9 Chronic obstructive pulmonary disease, unspecified; K21.9 Gastro-esophageal reflux disease without esophagitis; F17.210 Nicotine dependence, cigarettes, uncomplicated; Z95.5 Presence of coronary angioplasty implant and graft; T38.3X6A Underdosing of insulin and oral hypoglycemic [antidiabetic] drugs, initial encounter; Z91.128 Patient's intentional underdosing of medication regimen for other reason; Z63.0 Problems in relationship with spouse or partner; Z79.4 Long term (current) use of insulin; Z79.82 Long term (current) use of aspirin; Z79.899 Other long term (current) drug therapy
CPT/HCPCS: 36415; 36600; 71045; 74177; 80048; 80053; 81001; 81025; 82009; 82803; 82962; 83605; 83690; 83735; 84100; 84484; 85025; 87040; 87635; 93005; 94640; 97162; 97166; 97802; 99251; 99285; 99406; J7030; J7120; Q9967; U0005; A4216; G0463; J2405; J3490; J7799; U0003

== ENCOUNTER 2021-04-24 12:24 | Observation (INO) | payer MEDICARE, MEDICAID, SELFPAY ==
[2019-05-06 13:18] VITALS: BMI 56.7
[2021-04-24] VITALS (11 sets, daily range): BP systolic 160–183; BP diastolic 96–110; PULSE 97–156; RESP 16–20; TEMP 36.6–37.1; O2SAT 99–100; BMI 52.2; BMI 50.8
[2021-04-24] MEDS: Ondansetron 4 MG/2 ML Vial IV (12:38)
[2021-04-24] MEDS: 0.9% Normal Saline 1,000 ML 1000 ML IV (12:39)
[2021-04-24] MEDS: LORazepam 2 MG/ML Syringe 0.5 MG IV ×2 (12:39→13:21)
--- NOTE | 2021-04-24 12:40 | EX.ED.DYSGE1 ---
HPI History of Present Illness Chief Complaint: Nausea/Vomiting/Diarrhea Narrative Narrative: Patient presents with epigastric pain nausea vomiting and loose stools. She has had this multiple times especially with DKA. She has no fever chills. This started about 6 to 7 hours ago. No back pain or tearing sensation no lower abdominal pain. No urinary symptoms. [facility] Medical History Asthma Atherosclerotic heart disease of [place] coronary artery without angina pectoris Chronic obstructive pulmonary disease Diabetes mellitus, type II Essential hypertension GERD (gastroesophageal reflux disease) History of anxiety Hypercholesterolemia Hypothyroidism Morbid obesity with BMI of 50.0-59.9, adult Nicotine dependence GEOVANI (obstructive sleep apnea) Sleep-disordered breathing Home Medications albuterol sulfate 1 - 2 puff INHALATION Q4H PRN PRN #1 inhaler 10/15/15 [Rx Last Taken 10/19/20] alprazolam 1 mg PO QHS PRN 08/18/18 [History Last Taken 10/19/20] budesonide-formoterol 2 puff PO BID 05/07/19 [History Last Taken 10/20/20] insulin regular human 26 units SUBCUT TIDCM 05/07/19 [History Last Taken 10/20/20] cyclobenzaprine 5 mg PO TID PRN PRN 07/19/19 [History Last Taken 10/13/20] trazodone 50 mg PO QHS PRN PRN 07/19/19 [History Last Taken 04/16/21 50] bupropion HCl 150 mg PO DAILY 09/25/20 [History Last Taken 10/20/20] bupropion HCl 300 mg PO DAILY 09/25/20 [History Last Taken 10/20/20] aspirin 81 mg tablet,delayed release 81 mg PO DAILY@0800 #30 tablet 11/07/20 [Rx Last Taken Unknown] atorvastatin 80 mg tablet 80 mg PO QHS #30 tab 11/07/20 [Rx Last Taken Unknown] hydralazine 50 mg tablet 50 mg PO BID #90 tab 11/07/20 [Rx Last Taken Unknown] levothyroxine 200 mcg tablet 200 mcg PO DAILY #30 tab 11/07/20 [Rx Last Taken Unknown] levothyroxine 25 mcg tablet 25 mcg PO DAILY #30 tab 11/07/20 [Rx Last Taken Unknown] lisinopril 40 mg tablet 40 mg PO DAILY #30 tab 11/07/20 [Rx Last Taken Unknown] pantoprazole 40 mg tablet,delayed release 40 mg PO DAILY #30 tab 11/07/20 [Rx Last Taken Unknown] ticagrelor 90 mg tablet 90 mg PO BID #60 tablet 11/07/20 [Rx Last Taken Unknown] hydrocodone-acetaminophen 1 tab PO Q6H PRN PRN 3 Days #10 tablet 04/06/21 [Rx Last Taken Unknown] insulin NPH isoph U-100 human 32 units SC BIDAC 04/06/21 [History Last Taken Unknown] carvedilol 12.5 mg PO BID #0 tab 04/20/21 [Rx Last Taken Unknown] metoclopramide HCl [Reglan] 5 mg PO TID PRN PRN #10 tab 04/20/21 [Rx Last Taken Unknown] venlafaxine 75 mg PO DAILY #0 cap 04/20/21 [Rx Last Taken Unknown] Allergy/AdvReac Type Severity Reaction Status Date / Time metformin [From Glucophage] AdvReac Intermediate Diarrhea Verified 04/17/21 08:20 hydromorphone [From Dilaudid] AdvReac Itching Verified 04/17/21 08:20 morphine AdvReac Itching Verified 04/17/21 08:20 Family History Mother Cancer lung Father Hypertension COPD (chronic obstructive pulmonary disease) Daughter Factor V deficiency Grandmother Cancer lung COPD (chronic obstructive pulmonary disease) Surgical History History of back surgery History of delivery History of cholecystectomy History of coronary artery stent placement (09/26/20) History of dilatation and curettage History of left heart catheterization (10/08/20) History of percutaneous transluminal coronary angioplasty (~10/20/20) History of tonsillectomy and adenoidectomy History of tubal ligation Social History household members: none Smoking Status: Current every day smoker tobacco type: cigarettes alcohol intake: current alcohol intake frequency: holidays/special occasions only substance use type: does not use caffeine: Yes ROS ROS ED ROS Narrative Past medical history: Reviewed, [place], coronary artery disease, hypertension, hypercholesterolemia Medications: Reviewed Social history: Noncontributory Review of systems: All systems negative except as indicated General: No fever Eyes: No visual changes ENT: No upper airway congestion, normal voice Neck: No neck pain Cardiovascular: Initially she did not complain about chest pain but now she tells me the abdominal pain radiates into her chest Respiratory: No shortness of breath or cough Gastrointestinal: Abdominal pain with nausea and vomiting as in HPI Genitourinary: No dysuria Musculoskeletal: Denies myalgias no difficulty with ambulation Skin: No rash Neurological: No memory loss, confusion or any focal weakness Psych: No recent behavioral changes Hematologic: No easy bleeding or easy bruising, it is extensive including diabetes EXAM Physical Exam Narrative Exam Narrative: Physical exam General: Patient appears quite uncomfortable, she is actively gagging but not vomiting Head: Normocephalic, Atraumatic Eyes: Conjunctiva not pale ENT: Moist mucous membranes. No signs of dehydration Neck: Supple, Nontender, No lymphadenopathy Cardiovascular: Regular rate, Regular rhythm Respiratory: No distress, CTA bilaterally Abdomen: Soft, she has epigastric tenderness without any guarding or rebound. Back: Nontender, Normal Inspection. Negative for: CVA tenderness Extremities: Nontender, No edema Skin: Normal color, No rash Neurological: Alert, Normal Strength, Normal Sensation Psychological: Quite anxious Const Vital Signs: 04/24/21 12:25 Temperature 97.9 F Temperature Source Oral Pulse Rate 102 H Respiratory Rate 20 H Blood Pressure 165/98 H Blood Pressure Mean 120 Pulse Ox 100 Oxygen Delivery Method Room Air MDM MDM MDM Narrative Medical decision making narrative: Patient did have one episode of bright red blood in full diarrhea in the ED she tells me this is similar to the one she had at home. She has no anemia however she is anticoagulated and has a history of diverticulosis therefore I am worried about diverticular bleed. Her symptoms did improve as far as the nausea and vomiting.. Lab Data Labs: Laboratory Results - last 24 hr 04/24/21 04/24/21 04/24/21 12:35 12:35 12:35 WBC 18.8 H RBC 4.70 Hgb 15.7 H Hct 43.7 MCV 93.0 MCH 33.4 H MCHC 35.9 RDW Std Deviation 45.2 H RDW Coeff of Whitney 13.6 Plt Count 304 MPV 10.8 Immature Gran % (Auto) 0.700 Neut % (Auto) 75.9 H Lymph % (Auto) 10.1 L [place] % (Auto) 12.9 H Eos % (Auto) 0.1 Baso % (Auto) 0.3 Absolute Neuts (auto) 14.3 H Absolute Lymphs (auto) 1.89 Nucleated RBC % 0.1 Differential Comment SCANNED Diff Path Review November foll Sodium 138 Potassium 3.4 L Chloride 104 Carbon Dioxide 24.0 Anion Gap 10 BUN 15 Creatinine 0.87 Estim Creat Clear Calc 69.03 Est GFR (MDRD) Af Amer 90 Est GFR (MDRD) Non-Af 74 BUN/Creatinine Ratio 17.2 Glucose 324 H Calcium 8.5 Total Bilirubin 0.70 AST 114 H ALT 70 H Alkaline Phosphatase 133 H Total Protein 6.9 Albumin 3.1 L Globulin 3.8 Albumin/Globulin Ratio 0.8 L Lipase 21 L Acetone Level NEGATIVE Discharge Plan Triage Chief Complaint: Nausea/Vomiting/Diarrhea ED Provider: Juan Manuel Miller Dx/Rx/DC Orders Clinical Impression: Acute GI bleeding, Nausea & vomiting Prescriptions: No Action albuterol sulfate 1 INHALER inhaler 1 - 2 puff inhalation Q4H PRN PRN (Reason: Wheezing) Qty: 1 RF: 0 alprazolam 1 MG tablet 1 mg PO QHS PRN (Reason: Anxiety) RF: 0 budesonide-formoterol 160-4.5MCG inhaler 2 puff PO BID RF: 0 insulin regular human 100 UNIT/ML solution 26 units subcut TIDCM RF: 0 cyclobenzaprine 10 MG tablet 5 mg PO TID PRN PRN (Reason: Muscle Spasm) RF: 0 trazodone 50 MG tablet 50 mg PO QHS PRN PRN (Reason: Sleep) RF: 0 bupropion HCl 300 MG tablet extended release 24 hr 300 mg PO DAILY RF: 0 bupropion HCl 150 MG tablet extended release 24 hr 150 mg PO DAILY RF: 0 insulin NPH isoph U-100 human 100 UNITS/ML insulin pen 32 units SC BIDAC RF: 0 hydrocodone-acetaminophen 1 TABLET tablet 1 tab PO Q6H PRN PRN (Reason: Pain) 3 Days Qty: 10 RF: 0 venlafaxine 75 mg Capsule,Extended Release 24hr 75 mg PO DAILY Qty: 0 RF: 0 carvedilol 12.5 mg Tablet 12.5 mg PO BID Qty: 0 RF: 0 metoclopramide HCl [Reglan] 5 mg tablet 5 mg PO TID PRN PRN (Reason: nausea/vomiting) Qty: 10 RF: 0 ticagrelor 90 mg tablet 90 mg PO BID Qty: 60 RF: 11 aspirin 81 mg tablet,delayed release (DR/EC) 81 mg PO DAILY@0800 Qty: 30 RF: 11 atorvastatin 80 mg tablet 80 mg PO QHS Qty: 30 RF: 11 hydralazine 50 mg tablet 50 mg PO BID Qty: 90 RF: 11 lisinopril 40 mg tablet 40 mg PO DAILY Qty: 30 RF: 11 pantoprazole 40 mg tablet,delayed release (DR/EC) 40 mg PO DAILY Qty: 30 RF: 11 levothyroxine 200 mcg tablet 200 mcg PO DAILY Qty: 30 RF: 11 levothyroxine 25 mcg tablet 25 mcg PO DAILY Qty: 30 RF: 11 Primary Care Provider: Carlotta Galindo Referrals: Carlotta Galindo MD [Primary Care Provider] - Disposition Disposition: Home, Self Care
[2021-04-24 12:42] LABS: Absolute Lymphocyte Count 1.89 X10^3/uL (0.83-4.51); Absolute Neutrophil Count 14.3 X10^3/uL (2.0-7.7); Basophil# 0.05 X10^3/uL; Basophil% 0.3 % (0-1); Eosinophil# 0.01 X10^3/uL; Eosinophils% 0.1 % (0-5); Hematocrit 43.7 % (37-47); Hemoglobin 15.7 g/dL (12.0-15.0); Lymphocyte # 1.89 X10^3/ul (0.83-4.51); Lymphocyte % 10.1 % (19-41); Mean Corp Hgb Conc 35.9 g/dL (32-36); Mean Corpuscular Hgb 33.4 pg (27.0-32.0); Mean Platelet Vol. 10.8 fl (6.2-12.0); Monocyte# 2.42 X10^3/uL; Monocyte% 12.9 % (0-10); NRBC Flagged by Analyzer 0.1 % (0-5); Neutrophil # 14.26 X10^3/uL (2.7-7.7); Neutrophil % 75.9 % (47-70); POSITIVE DIFFERENTIAL YES; Platelet Count 304 K/mm3 (150-450); RBC Distribution Width CV 13.6 % (11.6-14.6); RBC Distribution Width SD 45.2 fl (35.1-43.9); White Blood Count 18.8 K/mm3 (4.4-11.0)
[2021-04-24 12:45] LABS: Differential Indicated SCAN CRITERIA MET
[2021-04-24 12:58] LABS: ALB/GLOB Ratio 0.8 RATIO (0.9-2.4); AST(SGOT) 114 U/L (15-37); Alanine Aminotransfer ALT/SGPT 70 U/L (13-56); Albumin, Serum 3.1 g/dL (3.2-5.0); Alkaline Phosphatase 133 U/L (45-117); Anion Gap 10 (5-15); BUN 15 mg/dL (7-18); BUN/Creat Ratio 17.2 RATIO (10-20); Calcium,Total 8.5 mg/dL (8.5-10.1); Chloride 104 mmol/L (98-107); Creatinine, Serum 0.87 mg/dL (0.55-1.02); EST Glomerular Filtration Rate 74 mL/min (>60); Est Glom Filt Rate - Afr Amer 90 mL/min (>60); Estimated Creatinine Clearance 69.03 ml/min; Globulin 3.8 g/dL (2.2-4.2); Glucose 324 mg/dL (74-106); Lipase 21 U/L (73-393); Potassium 3.4 mmol/L (3.5-5.1); Protein, Total 6.9 g/dL (6.4-8.2); Sodium Level 138 mmol/L (136-145)
[2021-04-24 13:09] LABS: Differential Comment SCANNED
[2021-04-24] MEDS: proMETHazine 25 MG/ML Syringe 12.5 MG IV (13:20)
--- NOTE | 2021-04-24 14:21 | HP.PCM_ITS ---
Documented by User: MOHAN Hall 04/24/21 14:31 HPI - General General Date of Admission: 04/24/21 Date of Service: 04/24/21 Chief Complaint: Abdominal pain, stool HPI Narrative ADELFO BACK, is a 45 F who presents with complaints of abdominal pain and multiple bowel movements with blood. Patient states she began having abdominal pain earlier today and was concerned that she was in DKA however she noticed that there was blood in her stool with multiple bowel movements at home and one bowel movement here. Patient denies fever, chills, shortness of breath, chest pain, cough, constipation. Patient also reports nausea and vomiting. [facility] Medical History (Updated 04/24/21 @ 16:07 by Bebeto Keller) Asthma Atherosclerotic heart disease of [place] coronary artery without angina pectoris Chronic obstructive pulmonary disease Diabetes mellitus, type II Essential hypertension GERD (gastroesophageal reflux disease) History of anxiety Hypercholesterolemia Hypothyroidism Morbid obesity with BMI of 50.0-59.9, adult Nicotine dependence GEOVANI (obstructive sleep apnea) Sleep-disordered breathing Home Medications albuterol sulfate 1 - 2 puff INHALATION Q4H PRN PRN #1 inhaler 10/15/15 [Rx Last Taken 10/19/20] alprazolam 1 mg PO QHS PRN 08/18/18 [History Last Taken 10/19/20] budesonide-formoterol 2 puff PO BID 05/07/19 [History Last Taken 10/20/20] insulin regular human 26 units SUBCUT TIDCM 05/07/19 [History Last Taken 10/20/20] cyclobenzaprine 5 mg PO TID PRN PRN 07/19/19 [History Last Taken 10/13/20] trazodone 50 mg PO QHS PRN PRN 07/19/19 [History Last Taken 04/16/21 50] bupropion HCl 150 mg PO DAILY 09/25/20 [History Last Taken 10/20/20] bupropion HCl 300 mg PO DAILY 09/25/20 [History Last Taken 10/20/20] aspirin 81 mg tablet,delayed release 81 mg PO DAILY@0800 #30 tablet 11/07/20 [Rx Last Taken Unknown] atorvastatin 80 mg tablet 80 mg PO QHS #30 tab 11/07/20 [Rx Last Taken Unknown] hydralazine 50 mg tablet 50 mg PO BID #90 tab 11/07/20 [Rx Last Taken Unknown] levothyroxine 200 mcg tablet 200 mcg PO DAILY #30 tab 11/07/20 [Rx Last Taken Unknown] levothyroxine 25 mcg tablet 25 mcg PO DAILY #30 tab 11/07/20 [Rx Last Taken Unknown] lisinopril 40 mg tablet 40 mg PO DAILY #30 tab 11/07/20 [Rx Last Taken Unknown] pantoprazole 40 mg tablet,delayed release 40 mg PO DAILY #30 tab 11/07/20 [Rx Last Taken Unknown] ticagrelor 90 mg tablet 90 mg PO BID #60 tablet 11/07/20 [Rx Last Taken Unknown] hydrocodone-acetaminophen 1 tab PO Q6H PRN PRN 3 Days #10 tablet 04/06/21 [Rx Last Taken Unknown] insulin NPH isoph U-100 human 32 units SC BIDAC 04/06/21 [History Last Taken Unknown] carvedilol 12.5 mg PO BID #0 tab 04/20/21 [Rx Last Taken Unknown] metoclopramide HCl [Reglan] 5 mg PO TID PRN PRN #10 tab 04/20/21 [Rx Last Taken Unknown] venlafaxine 75 mg PO DAILY #0 cap 04/20/21 [Rx Last Taken Unknown] lorazepam 0.5 - 1 mg PO DAILY PRN 04/24/21 [History Last Taken Unknown] Allergy/AdvReac Type Severity Reaction Status Date / Time metformin [From Glucophage] AdvReac Intermediate Diarrhea Verified 04/17/21 08:20 hydromorphone [From Dilaudid] AdvReac Itching Verified 04/17/21 08:20 morphine AdvReac Itching Verified 04/17/21 08:20 Family History Mother Cancer lung Father Hypertension COPD (chronic obstructive pulmonary disease) Daughter Factor V deficiency Grandmother Cancer lung COPD (chronic obstructive pulmonary disease) Surgical History History of back surgery History of delivery History of cholecystectomy History of coronary artery stent placement (09/26/20) History of dilatation and curettage History of left heart catheterization (10/08/20) History of percutaneous transluminal coronary angioplasty (~10/20/20) History of tonsillectomy and adenoidectomy History of tubal ligation Social History household members: none Smoking Status: Current every day smoker tobacco type: cigarettes alcohol intake: current alcohol intake frequency: holidays/special occasions only substance use type: does not use caffeine: Yes ROS Constitutional Constitutional: Denies anorexia, chills, fatigue, malaise or weakness Cardiovascular Cardiovascular: Denies chest pain, edema, palpitations or syncope Respiratory/Chest Respiratory/Chest: Denies cough, hemoptysis, shortness of breath at rest or shortness of breath with exertion Gastrointestinal Gastrointestinal: Reports abdominal pain, diarrhea, melena, nausea and vomiting; Denies constipation or hematemesis Genitourinary Genitourinary: Denies dysuria Musculoskeletal Musculoskeletal: Denies back pain, extremity pain, joint pain or joint stiffness Integumentary Integumentary: Denies dry skin Neurologic Neurologic: Denies abnormal gait, abnormal speech, confusion or dizziness Psychiatric Psychiatric: Denies anxiety or depression Endocrine Endocrinology: Denies change in body appearance Hematologic/Lymphatic Hematologic/Lymphatic: Denies anemia, easy bleeding or easy bruising Vital Signs Vital Signs Vital Signs: 04/24/21 12:25 04/24/21 13:46 Temperature 97.9 F 98.8 F Temperature Source Oral Temporal Pulse Rate 102 H 97 Respiratory Rate 20 H 19 H Blood Pressure 165/98 H 174/98 H Blood Pressure Mean 120 123 Pulse Ox 100 100 Oxygen Delivery Method Room Air Room Air Weight Weight: 304 lb 0.279 oz Body Mass Index (BMI) 52.2 Physical Exam Const alert, oriented x3 and no apparent distress General Appearance: cooperative HEENT normocephalic and head/scalp atraumatic Eyes conjunctivae normal and no scleral icterus Neck full ROM and supple General: trachea midline Resp normal respiratory effort and clear to auscultation bilaterally Cardio regular rate, regular rhythm, S1 normal heart sound, S2 normal heart sound and peripheral pulses 2+ throughout GI normal to inspection, nondistended, normoactive bowel sounds Palpation: tender LLQ and RLQ Extremity normal capillary refill and no clubbing, cyanosis or edema General Extremity: no tenderness to palpation of joints or extremities Skin General Skin Exam: no breakdown and turgor normal Lesions: no lesions Rashes: no rashes Neuro no focal motor deficits and no sensory deficits noted Speech: speech normal Motor Exam: Negative for general weakness Psych thought process normal and cooperative Mood & Affect: anxious Results Lab / Micro Data Result Diagrams: 04/24/21 12:35 04/24/21 12:35 Labs: Laboratory Results - last 24 hr 04/24/21 12:35: WBC 18.8 H, RBC 4.70, Hgb 15.7 H, Hct 43.7, MCV 93.0, MCH 33.4 H , MCHC 35.9, RDW Std Deviation 45.2 H, RDW Coeff of [place] 13.6, Plt Count 304, MPV 10.8, Immature Gran % (Auto) 0.700, Neut % (Auto) 75.9 H, Lymph % (Auto) 10.1 L, [place] % (Auto) 12.9 H, Eos % (Auto) 0.1, Baso % (Auto) 0.3, Absolute Neuts (auto) 14.3 H, Absolute Lymphs (auto) 1.89, Nucleated RBC % 0.1, Differential Comment SCANNED, Diff Path Review May foll 04/24/21 12:35: Sodium 138, Potassium 3.4 L, Chloride 104, Carbon Dioxide 24.0, Anion Gap 10, BUN 15, Creatinine 0.87, Estim Creat Clear Calc 69.03, Est GFR (MDRD) Af Amer 90, Est GFR (MDRD) Non-Af 74, BUN/Creatinine Ratio 17.2, Glucose 324 H, Calcium 8.5, Total Bilirubin 0.70, AST 114 H, ALT 70 H, Alkaline Phosphatase 133 H, Total Protein 6.9, Albumin 3.1 L, Globulin 3.8, Albumin/Globulin Ratio 0.8 L, Lipase 21 L 04/24/21 12:35: Acetone Level NEGATIVE Micro: Microbiology 04/24/21 13:10 Stool Stool Occult Blood (ANNETTE) - Final Occult Blood Positive Assessment & Plan Assessment/Plan (1) Acute GI bleeding: (2) Nausea & vomiting: QUALIFIERS: Vomiting Intractability: non-intractable Vomiting type: unspecified Qualified Code(s): R11.2 - Nausea with vomiting, unspecified PLAN: 1. Acute GI bleed -Admit to [facility] for observation -Hemoglobin currently stable, will repeat H&H -CBC and BMP ordered in a.m. -Type and screen patient due to active bleeding -Clear diet, no red or purple foods -Consult GI -Patient has a history of diverticulosis, questionable diverticular bleed 2. Nausea and vomiting -Secondary to above -As needed Reglan and Zofran ordered 3. Hypokalemia -Potassium 3.4 -Potassium chloride 40 mEq x 1 p.o. ordered -Likely secondary to nausea and vomiting -BMP ordered for a.m. We will continue all medications related to patient's chronic diseases DVT prophylaxis-not indicated due to active bleed This patient was seen by Lillian Husain NP-C under the supervision of Dr. Valentine Documented by User: Dr. Ramesh Valentine, 04/24/21 16:54 HPI - General General Date of Admission: 04/24/21 [facility] Medical History (Updated 04/24/21 @ 16:07 by Bebeto Keller) Asthma Atherosclerotic heart disease of [place] coronary artery without angina pectoris Chronic obstructive pulmonary disease Diabetes mellitus, type II Essential hypertension GERD (gastroesophageal reflux disease) History of anxiety Hypercholesterolemia Hypothyroidism Morbid obesity with BMI of 50.0-59.9, adult Nicotine dependence GEOVANI (obstructive sleep apnea) Sleep-disordered breathing Home Medications albuterol sulfate 1 - 2 puff INHALATION Q4H PRN PRN #1 inhaler 10/15/15 [Rx Last Taken 10/19/20] alprazolam 1 mg PO QHS PRN 08/18/18 [History Last Taken 10/19/20] budesonide-formoterol 2 puff PO BID 05/07/19 [History Last Taken 10/20/20] insulin regular human 26 units SUBCUT TIDCM 05/07/19 [History Last Taken 10/20/20] cyclobenzaprine 5 mg PO TID PRN PRN 07/19/19 [History Last Taken 10/13/20] trazodone 50 mg PO QHS PRN PRN 07/19/19 [History Last Taken 04/16/21 50] bupropion HCl 150 mg PO DAILY 09/25/20 [History Last Taken 10/20/20] bupropion HCl 300 mg PO DAILY 09/25/20 [History Last Taken 10/20/20] aspirin 81 mg tablet,delayed release 81 mg PO DAILY@0800 #30 tablet 11/07/20 [Rx Last Taken Unknown] atorvastatin 80 mg tablet 80 mg PO QHS #30 tab 11/07/20 [Rx Last Taken Unknown] hydralazine 50 mg tablet 50 mg PO BID #90 tab 11/07/20 [Rx Last Taken Unknown] levothyroxine 200 mcg tablet 200 mcg PO DAILY #30 tab 11/07/20 [Rx Last Taken Unknown] levothyroxine 25 mcg tablet 25 mcg PO DAILY #30 tab 11/07/20 [Rx Last Taken Unknown] lisinopril 40 mg tablet 40 mg PO DAILY #30 tab 11/07/20 [Rx Last Taken Unknown] pantoprazole 40 mg tablet,delayed release 40 mg PO DAILY #30 tab 11/07/20 [Rx Last Taken Unknown] ticagrelor 90 mg tablet 90 mg PO BID #60 tablet 11/07/20 [Rx Last Taken Unknown] hydrocodone-acetaminophen 1 tab PO Q6H PRN PRN 3 Days #10 tablet 04/06/21 [Rx Last Taken Unknown] insulin NPH isoph U-100 human 32 units SC BIDAC 04/06/21 [History Last Taken Unknown] carvedilol 12.5 mg PO BID #0 tab 04/20/21 [Rx Last Taken Unknown] metoclopramide HCl [Reglan] 5 mg PO TID PRN PRN #10 tab 04/20/21 [Rx Last Taken Unknown] venlafaxine 75 mg PO DAILY #0 cap 04/20/21 [Rx Last Taken Unknown] lorazepam 0.5 - 1 mg PO DAILY PRN 04/24/21 [History Last Taken Unknown] Allergy/AdvReac Type Severity Reaction Status Date / Time metformin [From Glucophage] AdvReac Intermediate Diarrhea Verified 04/17/21 08:20 hydromorphone [From Dilaudid] AdvReac Itching Verified 04/17/21 08:20 morphine AdvReac Itching Verified 04/17/21 08:20 Family History Mother Cancer lung Father Hypertension COPD (chronic obstructive pulmonary disease) Daughter Factor V deficiency Grandmother Cancer lung COPD (chronic obstructive pulmonary disease) Surgical History History of back surgery History of delivery History of cholecystectomy History of coronary artery stent placement (09/26/20) History of dilatation and curettage History of left heart catheterization (10/08/20) History of percutaneous transluminal coronary angioplasty (~10/20/20) History of tonsillectomy and adenoidectomy History of tubal ligation Social History household members: none Smoking Status: Current every day smoker tobacco type: cigarettes alcohol intake: current alcohol intake frequency: holidays/special occasions only substance use type: does not use caffeine: Yes Results Lab / Micro Data Result Diagrams: 04/24/21 12:35 04/24/21 12:35 Charges/Coding Addendum Addendum: Patient was seen and examined today independently of Haily Husain, she came to the emergency room today with complaints of bright red rectal bleeding which started early this morning along with generalized abdominal discomfort in the lower abdomen. On examination she appeared mildly anxious, she complained of lower abdominal pain. Vital signs as documented. Skin warm and dry and without overt rashes. Neck without JVD, thyroid appears normal, trachea is midline, neck is supple. L ungs clear, normal air movement was noted. Heart exam notable for regular rhythm, normal sounds and absence of murmurs, rubs or gallops. Abdomen unremarkable and without evidence of organomegaly, masses, or abdominal aortic enlargement, bowel sounds are present in all 4 quadrants, lower abdominal te nderness was noted on palpation of the lower abdomen, no rebound abdominal tenderness was noted. Extremities nonedematous, no cyanosis was noted, no clubbing was noted. Neuro: Cranial nerves II through XII are grossly intact, no focal motor deficits were noted, sensation to light touch and pinprick is intact, motor exam 5/5 throughout. Psych: Patient is alert and oriented x3, she does not appear anxious or depressed, she does not appear agitated. I visually inspected the patient's bowel movement that she had while she was in the emergency room, there was gross blood in the bowel movement along with liquid stool. Patient's labs showed an elevated white blood cell count at 18.8, hemoglobin was 15.7, chemistry profile was remarkable for potassium of 3.4 and a glucose of 324, magnesium was low at 1.4. Patient's liver enzymes were elevated-AST 114, ALT 70, alkaline phosphatase 133. Patient was placed in observation status on MedSurg, labs will be monitored and she will be seen in consultation by gastroenterology. Blood sugars will be monitored. Patient had a CT of her abdomen and pelvis performed which showed nonobstructive bilateral intrarenal calculi and sigmoid diverticulosis. I have reviewed Haily Husain's history and physical including her medical assessment and plan of care and endorse it. Visit Charges OBSV E&M: 60644 Initial observation care L3
[2021-04-24] MEDS: fentaNYL 100 MCG/2 ML Ampul 25 MCG IV ×2 (14:33→21:00)
[2021-04-24 15:03] LABS: Magnesium 1.4 mg/dL (1.6-2.6)
--- NOTE | 2021-04-24 15:55 | PCS.PANDOC ---
PANDEMIC DOCUMENTATION INITIATED: Date: 02/18/2021 Time: 190
[2021-04-24] MEDS: Metoclopramide 5 MG TABLET PO (16:16)
[2021-04-24] MEDS: Acetaminophen 325 MG Tablet 650 MG PO (16:21)
[2021-04-24] MEDS: Potassium Chloride Oral Tablet 20 MEQ 40 MEQ PO (16:21)
[2021-04-24 16:51] LABS: Bedside Glucose 272 mg/dL (70-110)
[2021-04-24] MEDS: proCHLORPERazine 10 MG/2 ML Vial IV ×2 (17:20→22:47)
[2021-04-24] MEDS: 0.9% Saline Lock 10 ML Syringe IV (17:20)
[2021-04-24] MEDS: Insulin NPH Human 100 UNITS/ML PEN 32 UNITS SC (17:21)
[2021-04-24] MEDS: Insulin Lispro 100 UNIT/ML INSULN.PEN SC ×2 (17:21→21:06)
[2021-04-24 17:35] LABS: Hematocrit 40.8 % (37-47); Hemoglobin 14.8 g/dL (12.0-15.0)
--- NOTE | 2021-04-24 19:32 | CON.PCM.GI_ITS ---
HPI Consult Data Date of Consult: 04/24/21 HPI Narrative HPI Narrative: ADELFO BACK, is a 45 F who presents to the ED with worsening abdominal pain. She has a history of uncontrolled diabetes mellitus, obesity, GERD, CAD status post PTCA with stent who was recently admitted for depression and DKA. She was depressed about her home situation and decided not to take her diabetic medicines. On this particular visit to the ED she developed abdominal pain at home which progressed to nausea vomiting. She did develop profuse diarrhea followed by multiple episodes of lower GI bleeding. She had a CT scan abdomen pelvis in the ED which showed diverticular disease and fatty liver disease. She recent had a cardiac catheterization and it showed a patent stent in her LAD. She takes aspirin on a daily basis. She also suffers from gastroparesis as per the patient required to use her Reglan on a daily basis. [facility] Medical History (Updated 04/24/21 @ 16:07 by Bebeto Keller) Asthma Atherosclerotic heart disease of [place] coronary artery without angina pectoris Chronic obstructive pulmonary disease Diabetes mellitus, type II Essential hypertension GERD (gastroesophageal reflux disease) History of anxiety Hypercholesterolemia Hypothyroidism Morbid obesity with BMI of 50.0-59.9, adult Nicotine dependence GEOVANI (obstructive sleep apnea) Sleep-disordered breathing Home Medications albuterol sulfate 1 - 2 puff INHALATION Q4H PRN PRN #1 inhaler 10/15/15 [Rx Last Taken 10/19/20] alprazolam 1 mg PO QHS PRN 08/18/18 [History Last Taken 10/19/20] budesonide-formoterol 2 puff PO BID 05/07/19 [History Last Taken 10/20/20] insulin regular human 26 units SUBCUT TIDCM 05/07/19 [History Last Taken 10/20/20] cyclobenzaprine 5 mg PO TID PRN PRN 07/19/19 [History Last Taken 10/13/20] trazodone 50 mg PO QHS PRN PRN 07/19/19 [History Last Taken 04/16/21 50] bupropion HCl 150 mg PO DAILY 09/25/20 [History Last Taken 10/20/20] bupropion HCl 300 mg PO DAILY 09/25/20 [History Last Taken 10/20/20] aspirin 81 mg tablet,delayed release 81 mg PO DAILY@0800 #30 tablet 11/07/20 [Rx Last Taken Unknown] atorvastatin 80 mg tablet 80 mg PO QHS #30 tab 11/07/20 [Rx Last Taken Unknown] hydralazine 50 mg tablet 50 mg PO BID #90 tab 11/07/20 [Rx Last Taken Unknown] levothyroxine 200 mcg tablet 200 mcg PO DAILY #30 tab 11/07/20 [Rx Last Taken Unknown] levothyroxine 25 mcg tablet 25 mcg PO DAILY #30 tab 11/07/20 [Rx Last Taken Unknown] lisinopril 40 mg tablet 40 mg PO DAILY #30 tab 11/07/20 [Rx Last Taken Unknown] pantoprazole 40 mg tablet,delayed release 40 mg PO DAILY #30 tab 11/07/20 [Rx Last Taken Unknown] ticagrelor 90 mg tablet 90 mg PO BID #60 tablet 11/07/20 [Rx Last Taken Unknown] hydrocodone-acetaminophen 1 tab PO Q6H PRN PRN 3 Days #10 tablet 04/06/21 [Rx Last Taken Unknown] insulin NPH isoph U-100 human 32 units SC BIDAC 04/06/21 [History Last Taken Unknown] carvedilol 12.5 mg PO BID #0 tab 04/20/21 [Rx Last Taken Unknown] metoclopramide HCl [Reglan] 5 mg PO TID PRN PRN #10 tab 04/20/21 [Rx Last Taken Unknown] venlafaxine 75 mg PO DAILY #0 cap 04/20/21 [Rx Last Taken Unknown] lorazepam 0.5 - 1 mg PO DAILY PRN 04/24/21 [History Last Taken Unknown] Allergy/AdvReac Type Severity Reaction Status Date / Time metformin [From Glucophage] AdvReac Intermediate Diarrhea Verified 04/17/21 08:20 hydromorphone [From Dilaudid] AdvReac Itching Verified 04/17/21 08:20 morphine AdvReac Itching Verified 04/17/21 08:20 Family History Mother Cancer lung Father Hypertension COPD (chronic obstructive pulmonary disease) Daughter Factor V deficiency Grandmother Cancer lung COPD (chronic obstructive pulmonary disease) Surgical History History of back surgery History of delivery History of cholecystectomy History of coronary artery stent placement (09/26/20) History of dilatation and curettage History of left heart catheterization (10/08/20) History of percutaneous transluminal coronary angioplasty (~10/20/20) History of tonsillectomy and adenoidectomy History of tubal ligation Social History household members: none Smoking Status: Current every day smoker tobacco type: cigarettes alcohol intake: current alcohol intake frequency: holidays/special occasions only substance use type: does not use caffeine: Yes ROS Review of Systems ROS Unobtainable: other Constitutional Constitutional: Denies fatigue, fever(s), poor appetite, weight gain or weight loss ENT HEENT: Denies mouth lesions Cardiovascular Cardiovascular: Reports abdominal bloating, abdominal edema and abdominal pain Respiratory/Chest Respiratory/Chest: Denies change in mental status, change in phlegm color, chest congestion or chest tightness Gastrointestinal Gastrointestinal: Reports cramping, hematochezia, loose stools and melena; Denies belching, bloating, change in bowel habits, change in stool character, chewing difficulty, coffee ground emesis, constipation, diarrhea, dyspepsia, dysphagia, early satiety, excessive flatus, fecal incontinence, heartburn, hematemesis, hemorrhoids, nausea, odynophagia, rectal bleeding, tenesmus, vo miting or weight changes Genitourinary Genitourinary: Denies abdominal discomfort, burning urination or itching Musculoskeletal Musculoskeletal: Reports as per HPI; Denies muscle weakness or myalgias Integumentary Integumentary: Denies jaundice Neurologic Neurologic: Denies lack of coordination or weakness Psychiatric Psychiatric: Denies confusion, depression, memory loss, mood swings, paranoia or suicidal ideation Endocrine Endocrinology: Denies systems reviewed and no addt'l complaints, except as documented Hematologic/Lymphatic Hematologic/Lymphatic: Denies anemia, easy bleeding, easy bruising or lymphadenopathy Allergic/Immunologic Allergic/Immunologic: Denies systems reviewed and no addt'l complaints, except as documented Physical Exam Const alert General Appearance: cooperative Orientation / Consciousness: oriented to person HEENT hearing grossly normal bilaterally Head and Scalp: normal to inspection Face and Sinus: face symmetric Nose: external nose normal Mouth: oral and palatal mucosa normal Eyes conjunctivae normal General Eye: normal appearance of both eyes Neck full ROM General: normal visual inspection Lymph Lymphatic: no lymphadenopathy noted Chest inspection of chest normal and palpation of chest normal Chest: symmetrical chest wall rise Resp normal respiratory effort Effort and Inspection: able to speak in complete sentences Cardio regular rate GI non-distended Percussion: normal to percussion Rectal Exam: deferred Neuro Speech: speech normal Gait (Neuro): normal gait Lab / Micro Data Result Diagrams: 04/24/21 16:45 04/24/21 12:35 Labs: Laboratory Results - last 24 hr 04/24/21 12:35: WBC 18.8 H, RBC 4.70, Hgb 15.7 H, Hct 43.7, MCV 93.0, MCH 33.4 H , MCHC 35.9, RDW Std Deviation 45.2 H, RDW Coeff of [place] 13.6, Plt Count 304, MPV 10.8, Immature Gran % (Auto) 0.700, Neut % (Auto) 75.9 H, Lymph % (Auto) 10.1 L, [place] % (Auto) 12.9 H, Eos % (Auto) 0.1, Baso % (Auto) 0.3, Absolute Neuts (auto) 14.3 H, Absolute Lymphs (auto) 1.89, Nucleated RBC % 0.1, Differential Comment SCANNED, Diff Path Review November04/24/21 12:35: Sodium 138, Potassium 3.4 L, Chloride 104, Carbon Dioxide 24.0, Anion Gap 10, BUN 15, Creatinine 0.87, Estim Creat Clear Calc 69.03, Est GFR (MDRD) Af Amer 90, Est GFR (MDRD) Non-Af 74, BUN/Creatinine Ratio 17.2, Glucose 324 H, Calcium 8.5, Total Bilirubin 0.70, AST 114 H, ALT 70 H, Alkaline Phosphatase 133 H, Total Protein 6.9, Albumin 3.1 L, Globulin 3.8, Albumin/Globulin Ratio 0.8 L, Lipase 21 L 04/24/21 12:35: Acetone Level NEGATIVE 04/24/21 12:35: Magnesium 1.4 L 04/24/21 14:36: Blood Type O NEGATIVE, Antibody Screen NEGATIVE 04/24/21 16:43: POC Glucose 272 H 04/24/21 16:45: Hgb 14.8, Hct 40.8 Micro: Microbiology 04/24/21 13:10 Stool Stool Occult Blood (ANNETTE) - Final Occult Blood Positive Assessment & Plan Assessment/Plan (1) Nausea & vomiting: QUALIFIERS: Vomiting type: unspecified Vomiting Intractability: non-intractable Qualified Code(s): R11.2 - Nausea with vomiting, unspecified PLAN: Nausea and vomiting possibly secondary to exacerbation of known g astroparesis. She is also known to have a hiatal hernia. Also the differential diagnosis could be peptic ulcer disease due to the fact that she takes aspirin and has poor nutritional status secondary to diabetes. She would benefit from an upper endoscopy to evaluate her upper GI tract. She will also benefit from a scopolamine patch for nausea along with as needed Reglan and PPI IV twice a day. (2) Acute GI bleeding: PLAN: The differential diagnosis for lower GI bleeding would be ischemic colitis in a patient that is a vasculopath and a poorly controlled diabetic. Also the differential diagnosis would be diverticular bleed, stercoral ulcer due to her history of chronic constipation and less likely upper GIB rapid transit. She should undergo an upper endoscopy if she can tolerate a prep otherwise she may need a flexible sigmoidoscopy. Thank you very much for allowing me to participate in the care of this patient. Charges/Coding Visit Charges Inpatient E&M: 29612 Init Hosp L3
[2021-04-24 20:51] LABS: Hematocrit 42.8 % (37-47); Hemoglobin 15.2 g/dL (12.0-15.0)
[2021-04-24] MEDS: hydrALAZINE 50 MG Tablet PO (20:59)
[2021-04-24] MEDS: Atorvastatin Calcium 80 MG Tablet PO (21:00)
[2021-04-24] MEDS: Carvedilol 12.5 MG Tablet PO (21:00)
[2021-04-24 21:10] LABS: Bedside Glucose 203 mg/dL (70-110)
[2021-04-24] MEDS: 0.9% Normal Saline 1,000 ML 125 ML IV (22:41)
[2021-04-25] VITALS (10 sets, daily range): BP systolic 112–152; BP diastolic 77–102; PULSE 108–129; RESP 16–18; TEMP 36.7–37.4; O2SAT 95–100; BMI 50.7
[2021-04-25 01:05] LABS: Hematocrit 37.6 % (37-47); Hemoglobin 13.3 g/dL (12.0-15.0)
[2021-04-25] MEDS: proCHLORPERazine 10 MG/2 ML Vial IV ×4 (02:48→20:27)
[2021-04-25] MEDS: fentaNYL 100 MCG/2 ML Ampul 25 MCG IV ×2 (02:48→09:48)
[2021-04-25] MEDS: 0.9% Normal Saline 1,000 ML 125 ML IV ×2 (02:51→20:29)
--- NOTE | 2021-04-25 04:50 | EKG12_ITS ---
Test Reason : PREOP Blood Pressure : / mmHG Vent. Rate : 125 BPM Atrial Rate : 125 BPM P-R Int : 140 ms QRS Dur : 082 ms QT Int : 306 ms P-R-T Axes : 048 -12 071 degrees QTc Int : 441 ms Poor data quality, interpretation may be adversely affected Sinus tachycardia Inferior infarct , age undetermined , cannot be excluded Anterior infarct , age undetermined , cannot be excluded Abnormal ECG Confirmed by TACOS SILVA, LACEY ([id number]), image editor ODALYS PHILIPPE ([id number]) on 05/01/2021 9:50:05 AM Referred By: CECE Confirmed By:LACEY BALDERRAMA MD
--- NOTE | 2021-04-25 05:00 | EKG12_ITS ---
Test Reason : CP Blood Pressure : / mmHG Vent. Rate : 104 BPM Atrial Rate : 104 BPM P-R Int : 142 ms QRS Dur : 078 ms QT Int : 334 ms P-R-T Axes : 037 -15 011 degrees QTc Int : 439 ms Sinus tachycardia Inferior infarct , age undetermined Anterior infarct , age undetermined Abnormal ECG Confirmed by FATOU SILVA, ANGELY ([id number]), book editor ODALYS PHILIPPE ([id number]) on 04/25/2021 1:50:11 P M Referred By: DARI Confirmed By:LEANDRA LAINEZ MD
[2021-04-25 06:16] LABS: Bedside Glucose 139 mg/dL (70-110)
[2021-04-25 07:24] LABS: Absolute Lymphocyte Count 2.89 X10^3/uL (0.83-4.51); Basophil# 0.03 X10^3/uL; Basophil% 0.2 % (0-1); Eosinophil# 0.04 X10^3/uL; Eosinophils% 0.3 % (0-5); Hematocrit 38.8 % (37-47); Hemoglobin 13.5 g/dL (12.0-15.0); Lymphocyte # 2.89 X10^3/ul (0.83-4.51); Lymphocyte % 21.6 % (19-41); Mean Corp Hgb Conc 34.8 g/dL (32-36); Mean Corpuscular Volume 94.9 fL (81-99); Mean Platelet Vol. 11.3 fl (6.2-12.0); Monocyte# 2.32 X10^3/uL; Monocyte% 17.4 % (0-10); NRBC Flagged by Analyzer 0 % (0-5); Neutrophil # 8.01 X10^3/uL (2.7-7.7); Neutrophil % 60.1 % (47-70); POSITIVE DIFFERENTIAL YES; POSITIVE MORPHOLOGY YES; Platelet Count 258 K/mm3 (150-450); RBC Distribution Width CV 14.1 % (11.6-14.6); RBC Distribution Width SD 46.9 fl (35.1-43.9); Red Blood Count 4.09 M/mm3 (4.2-5.4); White Blood Count 13.4 K/mm3 (4.4-11.0)
[2021-04-25 07:28] LABS: Differential Indicated SCAN CRITERIA MET
[2021-04-25 07:59] LABS: Hemoglobin A1c 7.4 % (3.8-5.6)
[2021-04-25 08:07] LABS: Anion Gap 8 (5-15); BUN 10 mg/dL (7-18); BUN/Creat Ratio 21.9 RATIO (10-20); Calcium,Total 7.9 mg/dL (8.5-10.1); Chloride 109 mmol/L (98-107); Creatinine, Serum 0.46 mg/dL (0.55-1.02); EST Glomerular Filtration Rate 156 mL/min (>60); Est Glom Filt Rate - Afr Amer 188 mL/min (>60); Estimated Creatinine Clearance 130.56 ml/min; Glucose 139 mg/dL (74-106); Sodium Level 140 mmol/L (136-145)
[2021-04-25 11:10] LABS: Bedside Glucose 193 mg/dL (70-110)
--- NOTE | 2021-04-25 11:11 | NURSING ---
pt transported off unit via bed at this time for EGD
[2021-04-25 14:00] LABS: Pathologist Review Reviewed
--- NOTE | 2021-04-25 14:33 | PCM.PN.HOSP ---
Documented by User: Rajni Mondragon NP, SENIOR ANALYSIS SPECIALIST-C 04/25/21 14:45 Subjective Subjective Patient seen and examined. Reports generalized abdominal discomfort. Denies further nausea, vomiting. States she had a bowel movement this morning. Objective Data Objective Data Vital Signs: Vital Signs Temp Pulse Resp BP Pulse Ox 98.0 F 123 H 16 116/79 99 04/25/21 09:40 04/25/21 09:40 04/25/21 09:40 04/25/21 09:40 04/25/21 09:40 Oxygen Delivery Method Room Air Weight: 295 lb 6.711 oz Body Mass Index (BMI) 50.7 Intake & Output: Intake and Output for Last 24 Hours 04/23/21 04/24/21 04/25/21 23:59 23:59 23:59 Intake Total 1560 / 1960 920.83 / 920.83 Output Total 100 / 100 Balance 1460 / 1860 920.83 / 920.83 Lab / Micro Data Result Diagrams: 04/25/21 06:40 04/25/21 06:40 Labs: Laboratory Results - last 24 hr 04/24/21 12:35: Diff Path Review Reviewed 04/24/21 12:35: Magnesium 1.4 L 04/24/21 14:36: Blood Type O NEGATIVE, Antibody Screen NEGATIVE 04/24/21 16:43: POC Glucose 272 H 04/24/21 16:45: Hgb 14.8, Hct 40.8 04/24/21 20:40: Hgb 15.2 H, Hct 42.8 04/24/21 21:02: POC Glucose 203 H 04/25/21 00:55: Hgb 13.3, Hct 37.6 04/25/21 06:12: POC Glucose 139 H 04/25/21 06:40: WBC 13.4 H, RBC 4.09 L, Hgb 13.5, Hct 38.8, MCV 94.9, MCH 33.0 H, MCHC 34.8, RDW Std Deviation 46.9 H, RDW Coeff of Whitney 14.1, Plt Count 258, MPV 11.3, Immature Gran % (Auto) 0.400, Neut % (Auto) 60.1, Lymph % (Auto) 21.6, Woodruff % (Auto) 17.4 H, Eos % (Auto) 0.3, Baso % (Auto) 0.2, Absolute Neuts (auto) 8.0 H, Absolute Lymphs (auto) 2.89, Nucleated RBC % 0, Diff Path Review November04/25/21 06:40: Sodium 140, Potassium 3.0 L, Chloride 109 H, Carbon Dioxide 23.0, Anion Gap 8, BUN 10, Creatinine 0.46 L, Estim Creat Clear Calc 130.56, Est GFR (MDRD) Af Amer 188, Est GFR (MDRD) Non-Af 156, BUN/Creatinine Ratio 21.9 H, Glucose 139 H, Calcium 7.9 L, TSH 22.60 H 04/25/21 06:40: Hemoglobin A1c 7.4 H 04/25/21 11:07: POC Glucose 193 H Micro: Microbiology 04/25/21 08:15 Nasal Secretion SARS-CoV-2 Antigen (Rapid) - Final 04/24/21 13:10 Stool Stool Occult Blood (ANNETTE) - Final Occult Blood Positive Physical Exam Const alert, oriented x3 and no apparent distress Orientation / Consciousness: awake, oriented to person, oriented to place and oriented to time Nutritional Appearance: obese HEENT normocephalic and moist oral mucous membranes Eyes PERRL, EOMs intact bilaterally and conjunctivae normal Neck no lymphadenopathy Resp normal respiratory effort and clear to auscultation bilaterally Cardio regular rate, regular rhythm and no murmurs Peripheral Pulses: pulses 2+ throughout GI normal to inspection, nondistended, normoactive bowel sounds and non-distended Palpation: tender Extremity normal to inspection Skin no rashes or lesions noted Lesions: no lesions Rashes: no rashes Trauma: no lacerations or abrasions Neuro CN's II-XII intact bilaterally, no focal motor deficits, no sensory deficits noted and deep tendon reflexes 2+ bilaterally Psych mental status grossly normal and affect normal Assessment & Plan Assessment/Plan (1) Acute GI bleeding: PLAN: 1. Acute GI bleed-stool positive for occult blood. Hemoglobin stable. GI consulted. Plan for upper endoscopy. Continue PPI. Trend CBC. 2. Hypokalemia-replace per protocol, trend BMP. 3. Hypertension-on lisinopril, carvedilol, hydralazine 4. Hyperlipidemia-continue statin. 5. Type 2 diabetes [id number] with sliding scale insulin. Continue home insulin regimen. 6. CAD with history of stents-antiplatelets temporarily on hold. Continue statin. 7. Hypothyroidism-continue Synthroid. 8. Chronic COPD-as needed albuterol aerosol. 9. Depression/anxiety-on alprazolam, venlafaxine, bupropion. 10. GERD- on PPI. 11. Morbid obesity-lifestyle modification recommended. DVT prophylaxis-SCDs This patient was seen by MOHAN Recio under the supervision of Dr. Triplett. Documented by User: Dr. Rene Triplett MD 04/25/21 17:20 Objective Data Lab / Micro Data Result Diagrams: 04/25/21 06:40 04/25/21 06:40 Charges/Coding Addendum Addendum: Dr. Triplett: I personally reviewed the chart and examined the patient, and agree with the above findings. 45-year-old female who presented with abdominal pain and multiple bloody bowel movements. She states that she and her had eaten some chili that seem to aggravate both events that but she got a little bit worse. We will add on an enteric pathogen panel today. She was supposed to have scope however this was postponed until tomorrow due to scheduling issues. She denies any further bloody bowel movements and her hemoglobin is stable at 13.5. We will continue with IV fluids and hopefully can have the scope performed tomorrow. Visit Charges OBSV E&M: 77499 Subsequent observation care L2
--- NOTE | 2021-04-25 15:50 | CASEMGMT ---
RUDI CM in to discuss ALFARO form with patient. RN CM explained ALFARO form, patient voiced understanding. Pt signed form and filed in chart. Pt provided with a copy of signed ALFARO form. Patient had no further questions or concerns at this time.
[2021-04-25] MEDS: buPROPion (XL) 150 MG TABLET.XL PO (15:59)
[2021-04-25] MEDS: buPROPion (XL) 300 MG TABLET.XL PO (15:59)
[2021-04-25] MEDS: hydrALAZINE 50 MG Tablet PO ×2 (15:59→23:59)
[2021-04-25] MEDS: Lisinopril 40 MG Tablet PO (15:59)
[2021-04-25] MEDS: Pantoprazole Sodium 40 MG Tablet PO (15:59)
[2021-04-25] MEDS: Carvedilol 12.5 MG Tablet PO ×2 (15:59→23:59)
[2021-04-25] MEDS: Potassium Chloride Oral Tablet 20 MEQ 60 MEQ PO (15:59)
[2021-04-25 16:15] LABS: Bedside Glucose 291 mg/dL (70-110)
[2021-04-25] MEDS: Insulin NPH Human 100 UNITS/ML PEN 32 UNITS SC (16:34)
[2021-04-25] MEDS: Insulin Lispro 100 UNIT/ML INSULN.PEN SC ×2 (16:34→23:59)
[2021-04-25] MEDS: Insulin Lispro 100 UNIT/ML INSULN.PEN 26 UNIT SC (16:35)
--- NOTE | 2021-04-25 18:58 | PN.GI_ITS ---
Subjective Subjective Patient says she still having lower GI bleeding. She says her anxiety got the best of her today and she would like some stronger anxiety medicine. Objective Data Objective Data Vital Signs: Vital Signs Temp Pulse Resp BP Pulse Ox 98.4 F 116 H 18 152/102 H 100 04/25/21 15:45 04/25/21 15:59 04/25/21 15:45 04/25/21 15:45 04/25/21 15:45 Oxygen Delivery Method Room Air Weight: 295 lb 6.711 oz Body Mass Index (BMI) 50.7 Intake & Output: Intake and Output for Last 24 Hours 04/23/21 04/24/21 04/25/21 23:59 23:59 23:59 Intake Total 1560 / 1960 920.83 / 920.83 Output Total 100 / 100 Balance 1460 / 1860 920.83 / 920.83 Lab / Micro Data Result Diagrams: 04/25/21 06:40 04/25/21 06:40 Labs: Laboratory Results - last 24 hr 04/24/21 12:35: Diff Path Review Reviewed 04/24/21 20:40: Hgb 15.2 H, Hct 42.8 04/24/21 21:02: POC Glucose 203 H 04/25/21 00:55: Hgb 13.3, Hct 37.6 04/25/21 06:12: POC Glucose 139 H 04/25/21 06:40: WBC 13.4 H, RBC 4.09 L, Hgb 13.5, Hct 38.8, MCV 94.9, MCH 33.0 H , MCHC 34.8, RDW Std Deviation 46.9 H, RDW Coeff of Whitney 14.1, Plt Count 258, MPV 11.3, Immature Gran % (Auto) 0.400, Neut % (Auto) 60.1, Lymph % (Auto) 21.6, Spink % (Auto) 17.4 H, Eos % (Auto) 0.3, Baso % (Auto) 0.2, Absolute Neuts (auto) 8.0 H, Absolute Lymphs (auto) 2.89, Nucleated RBC % 0, Diff Path Review May 04/25/21 06:40: Sodium 140, Potassium 3.0 L, Chloride 109 H, Carbon Dioxide 23.0, Anion Gap 8, BUN 10, Creatinine 0.46 L, Estim Creat Clear Calc 130.56, Est GFR (MDRD) Af Amer 188, Est GFR (MDRD) Non-Af 156, BUN/Creatinine Ratio 21.9 H, Glucose 139 H, Calcium 7.9 L, TSH 22.60 H 04/25/21 06:40: Hemoglobin A1c 7.4 H 04/25/21 11:07: POC Glucose 193 H 04/25/21 15:42: POC Glucose 291 H Micro: Microbiology 04/25/21 08:15 Nasal Secretion SARS-CoV-2 Antigen (Rapid) - Final 04/24/21 13:10 Stool Stool Occult Blood (ANNETTE) - Final Occult Blood Positive Physical Exam Const alert General Appearance: cooperative Orientation / Consciousness: oriented to person HEENT hearing grossly normal bilaterally Head and Scalp: normal to inspection Face and Sinus: face symmetric Nose: external nose normal Mouth: oral and palatal mucosa normal Eyes conjunctivae normal General Eye: normal appearance of both eyes Neck full ROM General: normal visual inspection Lymph Lymphatic: no lymphadenopathy noted Chest inspection of chest normal and palpation of chest normal Chest: symmetrical chest wall rise Resp normal respiratory effort Effort and Inspection: able to speak in complete sentences Cardio regular rate GI non-distended Percussion: normal to percussion Rectal Exam: deferred Neuro Speech: speech normal Gait (Neuro): normal gait Assessment & Plan Assessment/Plan (1) Acute GI bleeding: PLAN: Since she does have the cramping and nausea it is likely that she has elements of ischemic colitis. Also differential diagnosis would be diverticular bleeding, AVM, upper GIB rapid transit and hemorrhoidal bleeding. She will undergo colonoscopy and EGD tomorrow if she can tolerate a prep. (2) Nausea & vomiting: QUALIFIERS: Vomiting type: unspecified Vomiting Intractability: non-intractable Qualified Code(s): R11.2 - Nausea with vomiting, unspecified PLAN: Her nausea is a little bit better. She still feels abdominal cramping. She has not had any vomiting in the past 24 hours. I suspect that cheyenne lewis has gastritis and possibly gastric ulcer with underlying gastroparesis due to the fact that she is a poorly controlled diabetic. Charges/Coding Visit Charges Inpatient E&M: 39662 Subs Hosp L2
[2021-04-25] MEDS: Acetaminophen 325 MG Tablet 650 MG PO (20:26)
[2021-04-25] MEDS: 0.9% Saline Lock 10 ML Syringe IV (20:28)
[2021-04-25] MEDS: Atorvastatin Calcium 80 MG Tablet PO (23:59)
[2021-04-26] VITALS (7 sets, daily range): BP systolic 118–131; BP diastolic 76–85; PULSE 92–110; RESP 16; TEMP 36.4–37.5; O2SAT 96–98
[2021-04-26] MEDS: 0.9% Saline Lock 10 ML Syringe IV ×2 (00:04→10:11)
[2021-04-26 00:21] LABS: Bedside Glucose 231 mg/dL (70-110)
[2021-04-26] MEDS: proCHLORPERazine 10 MG/2 ML Vial IV ×2 (02:01→10:07)
[2021-04-26] MEDS: Levothyroxine 100 MCG Tablet 200 MCG PO (04:46)
[2021-04-26] MEDS: Levothyroxine 25 MCG TABLET PO (04:47)
[2021-04-26] MEDS: 0.9% Normal Saline 1,000 ML 125 ML IV (04:47)
[2021-04-26] MEDS: Acetaminophen 325 MG Tablet 650 MG PO (04:49)
[2021-04-26 07:39] LABS: Absolute Lymphocyte Count 3.12 X10^3/uL (0.83-4.51); Absolute Neutrophil Count 5.4 X10^3/uL (2.0-7.7); Basophil# 0.05 X10^3/uL; Basophil% 0.5 % (0-1); Eosinophil# 0.19 X10^3/uL; Eosinophils% 1.7 % (0-5); Hematocrit 31.4 % (37-47); Hemoglobin 10.7 g/dL (12.0-15.0); Lymphocyte # 3.12 X10^3/ul (0.83-4.51); Lymphocyte % 28.7 % (19-41); Mean Corp Hgb Conc 34.1 g/dL (32-36); Mean Corpuscular Volume 96.9 fL (81-99); Mean Platelet Vol. 10.9 fl (6.2-12.0); Monocyte# 2.04 X10^3/uL; Monocyte% 18.8 % (0-10); NRBC Flagged by Analyzer 0 % (0-5); Neutrophil # 5.42 X10^3/uL (2.7-7.7); Neutrophil % 49.9 % (47-70); POSITIVE DIFFERENTIAL YES; POSITIVE MORPHOLOGY YES; Platelet Count 217 K/mm3 (150-450); RBC Distribution Width SD 49.7 fl (35.1-43.9); Red Blood Count 3.24 M/mm3 (4.2-5.4); White Blood Count 10.9 K/mm3 (4.4-11.0)
[2021-04-26 07:51] LABS: Differential Indicated SCAN CRITERIA MET
[2021-04-26 08:08] LABS: Anion Gap 8 (5-15); BUN 7 mg/dL (7-18); BUN/Creat Ratio 17.9 RATIO (10-20); Calcium,Total 7.4 mg/dL (8.5-10.1); Chloride 104 mmol/L (98-107); Creatinine, Serum 0.39 mg/dL (0.55-1.02); EST Glomerular Filtration Rate 187 mL/min (>60); Est Glom Filt Rate - Afr Amer 226 mL/min (>60); Estimated Creatinine Clearance 153.99 ml/min; Glucose 273 mg/dL (74-106); Potassium 3.5 mmol/L (3.5-5.1); Sodium Level 134 mmol/L (136-145)
[2021-04-26 08:13] LABS: Differential Comment SCANNED
[2021-04-26] MEDS: Pantoprazole Sodium 40 MG Tablet PO (10:06)
[2021-04-26] MEDS: Lisinopril 40 MG Tablet PO (10:06)
[2021-04-26] MEDS: buPROPion (XL) 150 MG TABLET.XL PO (10:06)
[2021-04-26] MEDS: Carvedilol 12.5 MG Tablet PO (10:06)
[2021-04-26] MEDS: hydrALAZINE 50 MG Tablet PO (10:06)
[2021-04-26] MEDS: buPROPion (XL) 300 MG TABLET.XL PO (10:06)
[2021-04-26] MEDS: Venlafaxine XR 150 MG Capsule PO (10:11)
[2021-04-26 10:25] LABS: Bedside Glucose 305 mg/dL (70-110)
[2021-04-26] MEDS: Insulin NPH Human 100 UNITS/ML PEN 32 UNITS SC (10:49)
[2021-04-26] MEDS: Insulin Lispro 100 UNIT/ML INSULN.PEN 26 UNIT SC (10:49)
[2021-04-26] MEDS: Insulin Lispro 100 UNIT/ML INSULN.PEN SC (10:50)
--- NOTE | 2021-04-26 10:54 | PCM.DC ---
Discharge Instructions Diet Discharge Diet: Light diet - advance as tolerated Activity Discharge Activity: Return to Normal Activity Dressing / Incision Call your doctor if you observe: Fever of 101 or Higher and - (Intractable diarrhea, recurrent blood in stool) Follow Up Care Test Results: Test results from this visit will be discussed in further detail at your follow-up appointment, if applicable. Discharge Plan Admission Admit Date/Time: 04/24/21 14:14 Primary Reason for Your Visit: Acute gastroenteritis secondary to Salmonella Attending Provider: Rene Triplett Primary Care Provider: Carlotta Galindo Discharge Orders/Prescriptions Prescriptions: New ondansetron HCl [Zofran] 4 mg tablet 4 mg PO Q8H PRN (Reason: nausea and vomiting) Qty: 10 RF: 0 ciprofloxacin HCl 500 mg tablet 500 mg PO BID Qty: 14 RF: 0 colestipol 1 gram tablet 2 g PO DAILY Qty: 60 RF: 0 Continued albuterol sulfate 1 INHALER inhaler 1 - 2 puff inhalation Q4H PRN PRN (Reason: Wheezing) Qty: 1 RF: 0 alprazolam 1 MG tablet 1 mg PO QHS PRN (Reason: Anxiety) RF: 0 budesonide-formoterol 160-4.5MCG inhaler 2 puff PO BID RF: 0 insulin regular human 100 UNIT/ML solution 26 units subcut TIDCM RF: 0 cyclobenzaprine 10 MG tablet 5 mg PO TID PRN PRN (Reason: Muscle Spasm) RF: 0 trazodone 50 MG tablet 50 mg PO QHS PRN PRN (Reason: Sleep) RF: 0 bupropion HCl 300 MG tablet extended release 24 hr 300 mg PO DAILY RF: 0 bupropion HCl 150 MG tablet extended release 24 hr 150 mg PO DAILY RF: 0 insulin NPH isoph U-100 human 100 UNITS/ML insulin pen 32 units SC BIDAC RF: 0 hydrocodone-acetaminophen 1 TABLET tablet 1 tab PO Q6H PRN PRN (Reason: Pain) 3 Days Qty: 10 RF: 0 venlafaxine 75 mg Capsule,Extended Release 24hr 75 mg PO DAILY Qty: 0 RF: 0 carvedilol 12.5 mg Tablet 12.5 mg PO BID Qty: 0 RF: 0 metoclopramide HCl [Reglan] 5 mg tablet 5 mg PO TID PRN PRN (Reason: nausea/vomiting) Qty: 10 RF: 0 lorazepam 1 mg tablet 0.5 - 1 mg PO DAILY PRN (Reason: Anxiety) RF: 0 ticagrelor 90 mg tablet 90 mg PO BID Qty: 60 RF: 11 aspirin 81 mg tablet,delayed release (DR/EC) 81 mg PO DAILY@0800 Qty: 30 RF: 11 atorvastatin 80 mg tablet 80 mg PO QHS Qty: 30 RF: 11 hydralazine 50 mg tablet 50 mg PO BID Qty: 90 RF: 11 lisinopril 40 mg tablet 40 mg PO DAILY Qty: 30 RF: 11 pantoprazole 40 mg tablet,delayed release (DR/EC) 40 mg PO DAILY Qty: 30 RF: 11 levothyroxine 200 mcg tablet 200 mcg PO DAILY Qty: 30 RF: 11 levothyroxine 25 mcg tablet 25 mcg PO DAILY Qty: 30 RF: 11 Referrals / Follow Up: Carlotta Galindo MD [Primary Care Provider] - In 1 Week Disposition Disposition (needs filled in before D/C Order can be placed): Home, Self Care
--- NOTE | 2021-04-26 11:07 | DS.PCM_ITS ---
Documented by User: Rajni Mondragon NP, HEAD OF [employer]HEMATICS-C 04/26/21 11:19 Providers Date of Admission: 04/24/21 Date of Discharge: 04/26/21 Primary Care Physician: Dr. Carlotta Galindo MD Consultations 04/24/21 15:52 Consult: Gastroenterology Routine Consulting Provider: [facility] Reason for Consult: GI Bleed EMERGENT Consult: No MD Notified: Yes Date Notified: 04/24/21 Time Notified: 17:12 Method of Notification: Text Reason For Visit: GI BLEED Diagnosis Discharge Diagnosis (1) Acute GI bleeding: Status: Acute Code(s): K92.2 - Gastrointestinal hemorrhage, unspecified (2) Nausea & vomiting: Status: Acute Code(s): R11.2 - Nausea with vomiting, unspecified Qualifiers: Vomiting Intractability: non-intractable Vomiting type: unspecified Qualified Code(s): R11.2 - Nausea with vomiting, unspecified Medications at Discharge Home Medications albuterol sulfate 1 - 2 puff INHALATION Q4H PRN PRN #1 inhaler 10/15/15 alprazolam 1 mg PO QHS PRN 08/18/18 budesonide-formoterol 2 puff PO BID 05/07/19 insulin regular human 26 units SUBCUT TIDCM 05/07/19 cyclobenzaprine 5 mg PO TID PRN PRN 07/19/19 trazodone 50 mg PO QHS PRN PRN 07/19/19 bupropion HCl 150 mg PO DAILY 09/25/20 bupropion HCl 300 mg PO DAILY 09/25/20 aspirin 81 mg tablet,delayed release 81 mg PO DAILY@0800 #30 tablet 11/07/20 atorvastatin 80 mg tablet 80 mg PO QHS #30 tab 11/07/20 hydralazine 50 mg tablet 50 mg PO BID #90 tab 11/07/20 levothyroxine 200 mcg tablet 200 mcg PO DAILY #30 tab 11/07/20 levothyroxine 25 mcg tablet 25 mcg PO DAILY #30 tab 11/07/20 lisinopril 40 mg tablet 40 mg PO DAILY #30 tab 11/07/20 pantoprazole 40 mg tablet,delayed release 40 mg PO DAILY #30 tab 11/07/20 ticagrelor 90 mg tablet 90 mg PO BID #60 tablet 05/05/21 hydrocodone-acetaminophen 1 tab PO Q6H PRN PRN 3 Days #10 tablet 04/06/21 insulin NPH isoph U-100 human 32 units SC BIDAC 04/06/21 carvedilol 12.5 mg PO BID #0 tab 04/20/21 metoclopramide HCl [Reglan] 5 mg PO TID PRN PRN #10 tab 04/20/21 venlafaxine 75 mg PO DAILY #0 cap 04/20/21 lorazepam 0.5 - 1 mg PO DAILY PRN 04/24/21 ciprofloxacin HCl 500 mg PO BID #14 tab 04/26/21 colestipol 2 g PO DAILY #60 tab 04/26/21 ondansetron HCl [Zofran] 4 mg PO Q8H PRN #10 tab 04/26/21 Hospital Course Operations None Procedures None Summary of Care Provided Minutes Spent on Discharge: 35 Hospital Course: Patient is a 45-year-old female admitted 04/24/2021 due to abdominal pain and diarrhea with blood. 1. Acute Salmonella gastroenteritis with associated GI bleed-stool positive for occult blood. Hemoglobin trended down however stable. GI consulted. Initially planned for endoscopy however this was deferred due to stool positive for Salmonella. Cipro 500 mg twice daily for 7 days. Colestipol recommended per GI. Follow-up with PCP in 1 week. Follow-up with GI if ongoing concerns fo llowing treatment. 2. Hypokalemia-replace per protocol, resolved. 3. Hypertension-on lisinopril, carvedilol, hydralazine. 4. Hyperlipidemia-continue statin. 5. Type 2 diabetes mellitus-Continue home insulin regimen. 6. CAD with history of stents-continue aspirin, Brilinta, statin, beta-aj. 7. Hypothyroidism-continue Synthroid. TSH 22. T4 pending. TSH 09/26/20 19.4, T4 normal at that time. Recommend further follow up with PCP. 8. Chronic COPD-as needed albuterol inhaler. 9. Depression/anxiety-on alprazolam, venlafaxine, bupropion. 10. GERD- on PPI. 11. Morbid obesity-lifestyle modification recommended. Physical Exam Const alert, oriented x3 and no apparent distress Orientation / Consciousness: awake, oriented to person, oriented to place and oriented to time Nutritional Appearance: obese HEENT normocephalic and moist oral mucous membranes Eyes PERRL, EOMs intact bilaterally and conjunctivae normal Neck no lymphadenopathy Resp normal respiratory effort and clear to auscultation bilaterally Cardio regular rate, regular rhythm and no murmurs Peripheral Pulses: pulses 2+ throughout GI normal to inspection, nondistended, normoactive bowel sounds and non-distended Palpation: tender Extremity normal to inspection Skin no rashes or lesions noted Lesions: no lesions Rashes: no rashes Trauma: no lacerations or abrasions Neuro CN's II-XII intact bilaterally, no focal motor deficits, no sensory deficits noted and deep tendon reflexes 2+ bilaterally Psych mental status grossly normal and affect normal Patient seen and examined prior to discharge. Physical assessment as noted above. Patient is stable for discharge with follow up recommendations as noted above. This patient was seen by MOHAN Recio under the supervision of Dr. Triplett. Weight / BMI Weight Weight: 303 lb 9.224 oz Body Mass Index (BMI) 50.7 ABG / Lab / Microbiology Data Result Diagrams: 04/26/21 07:25 04/26/21 07:25 Laboratory: Laboratory Results - last 24 hr 04/24/21 12:35: Diff Path Review Reviewed 04/25/21 11:07: POC Glucose 193 H 04/25/21 15:42: POC Glucose 291 H 04/26/21 00:00: POC Glucose 231 H 04/26/21 07:25: WBC 10.9, RBC 3.24 L, Hgb 10.7 L, Hct 31.4 L, MCV 96.9, MCH 33.0 H, MCHC 34.1, RDW Std Deviation 49.7 H, RDW Coeff of Whitney 14.0, Plt Count 217, MPV 10.9, Immature Gran % (Auto) 0.400, Neut % (Auto) 49.9, Lymph % (Auto) 28.7, [place] % (Auto) 18.8 H, Eos % (Auto) 1.7, Baso % (Auto) 0.5, Absolute Neuts (auto) 5.4, Absolute Lymphs (auto) 3.12, Nucleated RBC % 0, Differential Comment SCANNED 04/26/21 07:25: Sodium 134 L, Potassium 3.5, Chloride 104, Carbon Dioxide 22.0, Anion Gap 8, BUN 7, Creatinine 0.39 L, Estim Creat Clear Calc 153.99, Est GFR (MDRD) Af Amer 226, Est GFR (MDRD) Non-Af 187, BUN/Creatinine Ratio 17.9, Glucose 273 H, Calcium 7.4 L 04/26/21 10:05: POC Glucose 305 H Microbiology: Microbiology 04/25/21 15:50 Stool Enteric Bacteriology - Final Salmonella Sp. 04/25/21 08:15 Nasal Secretion SARS-CoV-2 Antigen (Rapid) - Final 04/24/21 13:10 Stool Stool Occult Blood (ANNETTE) - Final Occult Blood Positive D/C Instructions Discharge Diet: Light diet - advance as tolerated Call your doctor if you observe: Fever of 101 or Higher and - (Intractable diarrhea, recurrent blood in stool) Meaningful Use Info Meaningful Use Diagnoses (Choose all that apply): None applicable Discharge Plan Admission Admit Date/Time: 04/24/21 14:14 Primary Reason for Your Visit: Acute gastroenteritis secondary to Salmonella Attending Provider: Rene Triplett Primary Care Provider: Carlotta Galindo Discharge Orders/Prescriptions Prescriptions: New ondansetron HCl [Zofran] 4 mg tablet 4 mg PO Q8H PRN (Reason: nausea and vomiting) Qty: 10 RF: 0 ciprofloxacin HCl 500 mg tablet 500 mg PO BID Qty: 14 RF: 0 colestipol 1 gram tablet 2 g PO DAILY Qty: 60 RF: 0 Continued albuterol sulfate 1 INHALER inhaler 1 - 2 puff inhalation Q4H PRN PRN (Reason: Wheezing) Qty: 1 RF: 0 alprazolam 1 MG tablet 1 mg PO QHS PRN (Reason: Anxiety) RF: 0 budesonide-formoterol 160-4.5MCG inhaler 2 puff PO BID RF: 0 insulin regular human 100 UNIT/ML solution 26 units subcut TIDCM RF: 0 cyclobenzaprine 10 MG tablet 5 mg PO TID PRN PRN (Reason: Muscle Spasm) RF: 0 trazodone 50 MG tablet 50 mg PO QHS PRN PRN (Reason: Sleep) RF: 0 bupropion HCl 300 MG tablet extended release 24 hr 300 mg PO DAILY RF: 0 bupropion HCl 150 MG tablet extended release 24 hr 150 mg PO DAILY RF: 0 insulin NPH isoph U-100 human 100 UNITS/ML insulin pen 32 units SC BIDAC RF: 0 hydrocodone-acetaminophen 1 TABLET tablet 1 tab PO Q6H PRN PRN (Reason: Pain) 3 Days Qty: 10 RF: 0 venlafaxine 75 mg Capsule,Extended Release 24hr 75 mg PO DAILY Qty: 0 RF: 0 carvedilol 12.5 mg Tablet 12.5 mg PO BID Qty: 0 RF: 0 metoclopramide HCl [Reglan] 5 mg tablet 5 mg PO TID PRN PRN (Reason: nausea/vomiting) Qty: 10 RF: 0 lorazepam 1 mg tablet 0.5 - 1 mg PO DAILY PRN (Reason: Anxiety) RF: 0 ticagrelor 90 mg tablet 90 mg PO BID Qty: 60 RF: 11 aspirin 81 mg tablet,delayed release (DR/EC) 81 mg PO DAILY@0800 Qty: 30 RF: 11 atorvastatin 80 mg tablet 80 mg PO QHS Qty: 30 RF: 11 hydralazine 50 mg tablet 50 mg PO BID Qty: 90 RF: 11 lisinopril 40 mg tablet 40 mg PO DAILY Qty: 30 RF: 11 pantoprazole 40 mg tablet,delayed release (DR/EC) 40 mg PO DAILY Qty: 30 RF: 11 levothyroxine 200 mcg tablet 200 mcg PO DAILY Qty: 30 RF: 11 levothyroxine 25 mcg tablet 25 mcg PO DAILY Qty: 30 RF: 11 Referrals / Follow Up: Carlotta Galindo MD [Primary Care Provider] - In 1 Week Disposition Disposition (needs filled in before D/C Order can be placed): Home, Self Care Documented by User: Dr. Rene Triplett MD 04/26/21 12:46 Providers Date of Admission: 04/24/21 Reason For Visit: GI BLEED Medications at Discharge Home Medications albuterol sulfate 1 - 2 puff INHALATION Q4H PRN PRN #1 inhaler 10/15/15 alprazolam 1 mg PO QHS PRN 08/18/18 budesonide-formoterol 2 puff PO BID 05/07/19 insulin regular human 26 units SUBCUT TIDCM 05/07/19 cyclobenzaprine 5 mg PO TID PRN PRN 07/19/19 trazodone 50 mg PO QHS PRN PRN 07/19/19 bupropion HCl 150 mg PO DAILY 09/25/20 bupropion HCl 300 mg PO DAILY 09/25/20 aspirin 81 mg tablet,delayed release 81 mg PO DAILY@0800 #30 tablet 11/07/20 atorvastatin 80 mg tablet 80 mg PO QHS #30 tab 11/07/20 hydralazine 50 mg tablet 50 mg PO BID #90 tab 11/07/20 levothyroxine 200 mcg tablet 200 mcg PO DAILY #30 tab 11/07/20 levothyroxine 25 mcg tablet 25 mcg PO DAILY #30 tab 11/07/20 lisinopril 40 mg tablet 40 mg PO DAILY #30 tab 11/07/20 pantoprazole 40 mg tablet,delayed release 40 mg PO DAILY #30 tab 11/07/20 ticagrelor 90 mg tablet 90 mg PO BID #60 tablet 11/07/20 hydrocodone-acetaminophen 1 tab PO Q6H PRN PRN 3 Days #10 tablet 04/06/21 insulin NPH isoph U-100 human 32 units SC BIDAC 04/06/21 carvedilol 12.5 mg PO BID #0 tab 04/20/21 metoclopramide HCl [Reglan] 5 mg PO TID PRN PRN #10 tab 04/20/21 venlafaxine 75 mg PO DAILY #0 cap 04/20/21 lorazepam 0.5 - 1 mg PO DAILY PRN 04/24/21 ciprofloxacin HCl 500 mg PO BID #14 tab 04/26/21 colestipol 2 g PO DAILY #60 tab 04/26/21 ondansetron HCl [Zofran] 4 mg PO Q8H PRN #10 tab 04/26/21 ABG / Lab / Microbiology Data Result Diagrams: 04/26/21 07:25 04/26/21 07:25 Discharge Plan Admission Admit Date/Time: 04/24/21 14:14 Primary Reason for Your Visit: Acute gastroenteritis secondary to Salmonella Attending Provider: Rene Triplett Primary Care Provider: Carlotta Galindo Discharge Orders/Prescriptions Prescriptions: New ondansetron HCl [Zofran] 4 mg tablet 4 mg PO Q8H PRN (Reason: nausea and vomiting) Qty: 10 RF: 0 ciprofloxacin HCl 500 mg tablet 500 mg PO BID Qty: 14 RF: 0 colestipol 1 gram tablet 2 g PO DAILY Qty: 60 RF: 0 Continued albuterol sulfate 1 INHALER inhaler 1 - 2 puff inhalation Q4H PRN PRN (Reason: Wheezing) Qty: 1 RF: 0 alprazolam 1 MG tablet 1 mg PO QHS PRN (Reason: Anxiety) RF: 0 budesonide-formoterol 160-4.5MCG inhaler 2 puff PO BID RF: 0 insulin regular human 100 UNIT/ML solution 26 units subcut TIDCM RF: 0 cyclobenzaprine 10 MG tablet 5 mg PO TID PRN PRN (Reason: Muscle Spasm) RF: 0 trazodone 50 MG tablet 50 mg PO QHS PRN PRN (Reason: Sleep) RF: 0 bupropion HCl 300 MG tablet extended release 24 hr 300 mg PO DAILY RF: 0 bupropion HCl 150 MG tablet extended release 24 hr 150 mg PO DAILY RF: 0 insulin NPH isoph U-100 human 100 UNITS/ML insulin pen 32 units SC BIDAC RF: 0 hydrocodone-acetaminophen 1 TABLET tablet 1 tab PO Q6H PRN PRN (Reason: Pain) 3 Days Qty: 10 RF: 0 venlafaxine 75 mg Capsule,Extended Release 24hr 75 mg PO DAILY Qty: 0 RF: 0 carvedilol 12.5 mg Tablet 12.5 mg PO BID Qty: 0 RF: 0 metoclopramide HCl [Reglan] 5 mg tablet 5 mg PO TID PRN PRN (Reason: nausea/vomiting) Qty: 10 RF: 0 lorazepam 1 mg tablet 0.5 - 1 mg PO DAILY PRN (Reason: Anxiety) RF: 0 ticagrelor 90 mg tablet 90 mg PO BID Qty: 60 RF: 11 aspirin 81 mg tablet,delayed release (DR/EC) 81 mg PO DAILY@0800 Qty: 30 RF: 11 atorvastatin 80 mg tablet 80 mg PO QHS Qty: 30 RF: 11 hydralazine 50 mg tablet 50 mg PO BID Qty: 90 RF: 11 lisinopril 40 mg tablet 40 mg PO DAILY Qty: 30 RF: 11 pantoprazole 40 mg tablet,delayed release (DR/EC) 40 mg PO DAILY Qty: 30 RF: 11 levothyroxine 200 mcg tablet 200 mcg PO DAILY Qty: 30 RF: 11 levothyroxine 25 mcg tablet 25 mcg PO DAILY Qty: 30 RF: 11 Referrals / Follow Up: Carlotta Galindo MD [Primary Care Provider] - In 1 Week Disposition Disposition (needs filled in before D/C Order can be placed): Home, Self Care Charges/Coding Addendum Addendum: Dr. Triplett: I personally reviewed the chart and examined the patient, and agree with the above findings. 45-year-old female who presented with abdominal pain and multiple bloody bowel movements. She states that she and her had eaten some chili that seem to aggravate both events that but she got a little bit worse. We will add on an enteric pathogen panel today. She was supposed to have scope however this was postponed until tomorrow due to scheduling issues. She denies any further bloody bowel movements and her hemoglobin is stable at 13.5. We will continue with IV fluids and hopefully can have the scope performed tomorrow. 04/26/2021: Doing well today, states that her diarrhea is slowing down and she has not had any major bloody bowel movements. Enteric pathogen panel did come back positive with Salmonella which will need to be reported to [facility]. Her is also sick as well though not as bad as she is. Her scopes were canceled secondary to her reluctance to proceed and the fact that we have another diagnosis for her colitis, and bloody bowel movements. We will continue with Cipro for 5 days on discharge at the recommendation of GI. She can follow-up with her PCP in 3 to 5days and if she continues to have any issues may be able to follow-up with GI as well for scopes as an outpatient. I discussed with her the plan for discharge today and she expressed understanding of the risk benefits going home and would like to go home today. Visit Charges OBSV E&M: [id number] Observation care discharge
[2021-04-26 11:22] LABS: T4 Free Direct 1.25 ng/dL (0.76-1.46)
[2021-04-26 15:36] LABS: Pathologist Review Reviewed
--- NOTE | 2021-05-03 16:05 | PCM.DC.SUM ---
Providers Date of Admission: 05/02/21 Date of Discharge: 05/03/21 Primary Care Physician: Dr. Carlotta Galindo MD Consultations 04/24/21 15:52 Consult: Gastroenterology Routine Consulting Provider: [facility] Reason for Consult: GI Bleed EMERGENT Consult: No MD Notified: Yes Date Notified: 04/24/21 Time Notified: 17:12 Method of Notification: Text Reason For Visit: GI BLEED Diagnosis Discharge Diagnosis (1) Acute GI bleeding: Status: Resolved Code(s): K92.2 - Gastrointestinal hemorrhage, unspecified (2) Nausea & vomiting: Status: Resolved Code(s): R11.2 - Nausea with vomiting, unspecified Qualifiers: Vomiting type: unspecified Vomiting Intractability: non-intractable Qualified Code(s): R11.2 - Nausea with vomiting, unspecified Medications at Discharge Home Medications albuterol sulfate 1 - 2 puff INHALATION Q4H PRN PRN #1 inhaler 10/15/15 budesonide-formoterol 2 puff PO BID 05/07/19 insulin regular human 26 units SUBCUT TIDCM 05/07/19 cyclobenzaprine 5 mg PO TID PRN PRN 07/19/19 trazodone 50 mg PO QHS PRN PRN 07/19/19 bupropion HCl 150 mg PO DAILY 09/25/20 bupropion HCl 300 mg PO DAILY 09/25/20 aspirin 81 mg tablet,delayed release 81 mg PO DAILY@0800 #30 tablet 11/07/20 atorvastatin 80 mg tablet 80 mg PO QHS #30 tab 11/07/20 hydralazine 50 mg tablet 50 mg PO BID #90 tab 11/07/20 levothyroxine 200 mcg tablet 200 mcg PO DAILY #30 tab 11/07/20 levothyroxine 25 mcg tablet 25 mcg PO DAILY #30 tab 11/07/20 lisinopril 40 mg tablet 40 mg PO DAILY #30 tab 11/07/20 pantoprazole 40 mg tablet,delayed release 40 mg PO DAILY #30 tab 11/07/20 ticagrelor 90 mg tablet 90 mg PO BID #60 tablet 11/07/20 hydrocodone-acetaminophen 1 tab PO Q6H PRN PRN 3 Days #10 tablet 04/06/21 insulin NPH isoph U-100 human 32 units SC BIDAC 04/06/21 carvedilol 12.5 mg PO BID #0 tab 04/20/21 metoclopramide HCl [Reglan] 5 mg PO TID PRN PRN #10 tab 04/20/21 lorazepam 0.5 - 1 mg PO DAILY PRN 04/24/21 colestipol 2 g PO DAILY #60 tab 04/26/21 ondansetron HCl [Zofran] 4 mg PO Q8H PRN #10 tab 04/26/21 mirtazapine [Remeron SolTab] 15 mg PO QHS 05/02/21 dicyclomine 20 mg PO TID PRN PRN #15 tab 05/03/21 loperamide 4 mg PO Q6H PRN #15 cap 05/03/21 Weight / BMI Weight Weight: 137.7 kg Body Mass Index (BMI) 50.7 ABG / Lab / Microbiology Data Result Diagrams: 04/26/21 07:25 04/26/21 07:25 Microbiology: Microbiology 04/25/21 15:50 Stool Enteric Bacteriology - Final Salmonella Sp. 04/25/21 08:15 Nasal Secretion SARS-CoV-2 Antigen (Rapid) - Final 04/24/21 13:10 Stool Stool Occult Blood (ANNETTE) - Final Occult Blood Positive D/C Instructions Discharge Diet: Light diet - advance as tolerated Call your doctor if you observe: Fever of 101 or Higher and - (Intractable diarrhea, recurrent blood in stool) Discharge Plan Admission Admit Date/Time: 04/24/21 14:14 Primary Reason for Your Visit: Acute gastroenteritis secondary to Salmonella Attending Provider: Rene Triplett Primary Care Provider: Carlotta Galindo Discharge Orders/Prescriptions Prescriptions: New ondansetron HCl [Zofran] 4 mg tablet 4 mg PO Q8H PRN (Reason: nausea and vomiting) Qty: 10 RF: 0 colestipol 1 gram tablet 2 g PO DAILY Qty: 60 RF: 0 Continued albuterol sulfate 1 INHALER inhaler 1 - 2 puff inhalation Q4H PRN PRN (Reason: Wheezing) Qty: 1 RF: 0 budesonide-formoterol 160-4.5MCG inhaler 2 puff PO BID RF: 0 insulin regular human 100 UNIT/ML solution 26 units subcut TIDCM RF: 0 cyclobenzaprine 10 MG tablet 5 mg PO TID PRN PRN (Reason: Muscle Spasm) RF: 0 trazodone 50 MG tablet 50 mg PO QHS PRN PRN (Reason: Sleep) RF: 0 bupropion HCl 300 MG tablet extended release 24 hr 300 mg PO DAILY RF: 0 bupropion HCl 150 MG tablet extended release 24 hr 150 mg PO DAILY RF: 0 insulin NPH isoph U-100 human 100 UNITS/ML insulin pen 32 units SC BIDAC RF: 0 hydrocodone-acetaminophen 1 TABLET tablet 1 tab PO Q6H PRN PRN (Reason: Pain) 3 Days Qty: 10 RF: 0 carvedilol 12.5 mg Tablet 12.5 mg PO BID Qty: 0 RF: 0 metoclopramide HCl [Reglan] 5 mg tablet 5 mg PO TID PRN PRN (Reason: nausea/vomiting) Qty: 10 RF: 0 lorazepam 1 mg tablet 0.5 - 1 mg PO DAILY PRN (Reason: Anxiety) RF: 0 ticagrelor 90 mg tablet 90 mg PO BID Qty: 60 RF: 11 aspirin 81 mg tablet,delayed release (DR/EC) 81 mg PO DAILY@0800 Qty: 30 RF: 11 atorvastatin 80 mg tablet 80 mg PO QHS Qty: 30 RF: 11 hydralazine 50 mg tablet 50 mg PO BID Qty: 90 RF: 11 lisinopril 40 mg tablet 40 mg PO DAILY Qty: 30 RF: 11 pantoprazole 40 mg tablet,delayed release (DR/EC) 40 mg PO DAILY Qty: 30 RF: 11 levothyroxine 200 mcg tablet 200 mcg PO DAILY Qty: 30 RF: 11 levothyroxine 25 mcg tablet 25 mcg PO DAILY Qty: 30 RF: 11 No Action mirtazapine [Remeron SolTab] 15 mg Tablet,Disintegrating 15 mg PO QHS RF: 0 loperamide 2 mg capsule 4 mg PO Q6H PRN (Reason: loose stool) Qty: 15 RF: 0 dicyclomine 20 mg tablet 20 mg PO TID PRN PRN (Reason: cramps) Qty: 15 RF: 0 Referrals / Follow Up: Carlotta Galindo MD [Primary Care Provider] - In 1 Week Disposition Disposition (needs filled in before D/C Order can be placed): Home, Self Care
== END 2021-04-26 12:05 | disposition home or self-care (01) ==
LOC: ED 13:48 → MS3 14:40
PROVIDERS: Anesthesiology; Nurse Practitioner Family; Admitting Provider Internal Medicine; Emergency Provider Emergency Medicine; PCP Internal Medicine; Visit Provider Family Medicine
DX: A02.0 Salmonella enteritis (principal); Z23 Encounter for immunization; I25.10 Atherosclerotic heart disease of native coronary artery without angina pectoris; J44.9 Chronic obstructive pulmonary disease, unspecified; K21.9 Gastro-esophageal reflux disease without esophagitis; E11.9 Type 2 diabetes mellitus without complications; E03.9 Hypothyroidism, unspecified; E66.01 Morbid (severe) obesity due to excess calories; G47.33 Obstructive sleep apnea (adult) (pediatric); I10 Essential (primary) hypertension; F17.210 Nicotine dependence, cigarettes, uncomplicated; I25.2 Old myocardial infarction; Z68.43 Body mass index [BMI] 50.0-59.9, adult; E87.6 Hypokalemia; K44.9 Diaphragmatic hernia without obstruction or gangrene; E78.5 Hyperlipidemia, unspecified; K57.30 Diverticulosis of large intestine without perforation or abscess without bleeding; F32.A Depression, unspecified; F41.9 Anxiety disorder, unspecified; N20.0 Calculus of kidney; Z79.899 Other long term (current) drug therapy; Z79.4 Long term (current) use of insulin; Z79.82 Long term (current) use of aspirin; Z79.890 Hormone replacement therapy
CPT/HCPCS: 36415; 80048; 80053; 82009; 82274; 82962; 83036; 83690; 83735; 84439; 84443; 85014; 85018; 85025; 86850; 86900; 86901; 87426; 87506; 93005; 96361; 96374; 96375; 96376; 99218; 99285; 99406; G0008; J7030; J7040; 90686; A4216; G0378; J2405

== ENCOUNTER 2021-05-02 10:10 | Observation (INO) | payer MEDICARE, MEDICAID, SELFPAY ==
[2019-05-06 13:18] VITALS: BMI 56.7
[2021-05-02] VITALS (9 sets, daily range): BP systolic 122–156; BP diastolic 81–94; PULSE 88–124; RESP 16–18; TEMP 36.6–37.1; O2SAT 96–100; BMI 51.5; BMI 56.5
--- NOTE | 2021-05-02 12:14 | EDS_ITS ---
HPI History of Present Illness Chief Complaint: Nausea/Vomiting/Diarrhea Informant: patient Onset/Context/Timing Onset: Weeks (2) Context: Gradual Onset Timing: Continuous Quality: Squeezing Location: Diffuse across the abdomen Worsened by: Palpation Relieved by: Rest and laying flat Narrative Narrative: Patient presents with diarrhea that has been constant for the past 2 weeks. Patient states she was recently admitted to the hospital and was diagnosed with Salmonella. Patient states she was started on Cipro at that time. Patient states she went to a different emergency department and was changed to Levaquin. Patient describes her abdominal pain as squeezing. Patient states it is diffuse across her abdomen. Patient states it radiates into her back. Patient states it is worse with palpation. Patient states it is better with resting and laying flat. Patient denies any melena or hematochezia. Patient states she is also concerned about C. difficile. [facility] Medical History Asthma Atherosclerotic heart disease of [place] coronary artery without angina pectoris Blood disorder CHF (congestive heart failure) Chronic obstructive pulmonary disease Current use of insulin Depression Diabetes Diabetes mellitus, type II Dyspnea Essential hypertension GERD (gastroesophageal reflux disease) Heart attack High cholesterol History of anxiety History of stress test HTN (hypertension) Hypercholesterolemia Hypothyroidism Irregular heartbeat Morbid obesity with BMI of 50.0-59.9, adult Nicotine dependence GEOVANI (obstructive sleep apnea) Sleep apnea Sleep-disordered breathing Home Medications albuterol sulfate 1 - 2 puff INHALATION Q4H PRN PRN #1 inhaler 10/15/15 [Rx Last Taken 10/19/20] alprazolam 1 mg PO QHS PRN 08/18/18 [History Last Taken 10/19/20] budesonide-formoterol 2 puff PO BID 05/07/19 [History Last Taken 10/20/20] insulin regular human 26 units SUBCUT TIDCM 05/07/19 [History Last Taken 10/20/20] cyclobenzaprine 5 mg PO TID PRN PRN 07/19/19 [History Last Taken 10/13/20] trazodone 50 mg PO QHS PRN PRN 07/19/19 [History Last Taken 04/16/21 50] bupropion HCl 150 mg PO DAILY 09/25/20 [History Last Taken 10/20/20] bupropion HCl 300 mg PO DAILY 09/25/20 [History Last Taken 10/20/20] aspirin 81 mg tablet,delayed release 81 mg PO DAILY@0800 #30 tablet 11/07/20 [Rx Last Taken Unknown] atorvastatin 80 mg tablet 80 mg PO QHS #30 tab 11/07/20 [Rx Last Taken Unknown] hydralazine 50 mg tablet 50 mg PO BID #90 tab 11/07/20 [Rx Last Taken Unknown] levothyroxine 200 mcg tablet 200 mcg PO DAILY #30 tab 11/07/20 [Rx Last Taken Unknown] levothyroxine 25 mcg tablet 25 mcg PO DAILY #30 tab 11/07/20 [Rx Last Taken Unknown] lisinopril 40 mg tablet 40 mg PO DAILY #30 tab 11/07/20 [Rx Last Taken Unknown] pantoprazole 40 mg tablet,delayed release 40 mg PO DAILY #30 tab 11/07/20 [Rx Last Taken Unknown] ticagrelor 90 mg tablet 90 mg PO BID #60 tablet 11/07/20 [Rx Last Taken Unknown] hydrocodone-acetaminophen 1 tab PO Q6H PRN PRN 3 Days #10 tablet 04/06/21 [Rx Last Taken Unknown] insulin NPH isoph U-100 human 32 units SC BIDAC 04/06/21 [History Last Taken Unknown] carvedilol 12.5 mg PO BID #0 tab 04/20/21 [Rx Last Taken Unknown] metoclopramide HCl [Reglan] 5 mg PO TID PRN PRN #10 tab 04/20/21 [Rx Last Taken Unknown] venlafaxine 75 mg PO DAILY #0 cap 04/20/21 [Rx Last Taken Unknown] lorazepam 0.5 - 1 mg PO DAILY PRN 04/24/21 [History Last Taken Unknown] ciprofloxacin HCl 500 mg PO BID #14 tab 04/26/21 [Rx Last Taken Unknown] colestipol 2 g PO DAILY #60 tab 04/26/21 [Rx Last Taken Unknown] ondansetron HCl [Zofran] 4 mg PO Q8H PRN #10 tab 04/26/21 [Rx Last Taken Unknown] diphenoxylate-atropine 2.5 mg-0.025 mg tablet 1 tab PO TID PRN #30 tab 05/02/21 [Rx Last Taken Unknown] Allergy/AdvReac Type Severity Reaction Status Date / Time metformin [From Glucophage] AdvReac Intermediate Diarrhea Verified 05/02/21 10:30 hydromorphone [From Dilaudid] AdvReac Itching Verified 05/02/21 10:30 morphine AdvReac Itching Verified 05/02/21 10:30 Family History Mother Cancer lung Father Hypertension COPD (chronic obstructive pulmonary disease) Daughter Factor V deficiency Grandmother Cancer lung COPD (chronic obstructive pulmonary disease) Surgical History H/O cardiac catheterization History of back surgery History of delivery History of cholecystectomy History of coronary artery stent placement (09/26/20) History of dilatation and curettage History of left heart catheterization (10/08/20) History of percutaneous transluminal coronary angioplasty (~10/20/20) History of tonsillectomy and adenoidectomy History of tubal ligation S/P tubal ligation Social History household members: none Smoking Status: Current every day smoker tobacco type: cigarettes alcohol intake: current alcohol intake frequency: holidays/special occasions only substance use type: does not use caffeine: Yes ROS ROS ED Constitutional Constitutional ED: Reports chills and subjective; Denies fever(s) Eyes Eyes: Denies blurry vision or change in vision ENT ENT ED: Denies rhinorrhea or sore throat Cardiovascular Cardiovascular: Reports chest pain; Denies palpitations Respiratory/Chest Respiratory/Chest: Denies cough or dyspnea Gastrointestinal Gastrointestinal: Reports abdominal pain and diarrhea; Denies nausea or vomiting Genitourinary Genitourinary ED: Denies dysuria or hematuria Musculoskeletal Musculoskeletal: Reports back pain; Denies neck pain Integumentary Denies abscess or rash Neurologic Neurologic: Denies headache(s) or weakness Allergic/Immunologic Allergic/Immunologic ED: Denies mouth swelling or urticaria EXAM Physical Exam Const Vital Signs: 05/02/21 10:27 05/02/21 14:57 Temperature 98.6 F Temperature Source Temporal Pulse Rate 107 H 88 Respiratory Rate 16 18 Blood Pressure 124/92 H Blood Pressure Mean 102 Pulse Ox 100 97 Oxygen Delivery Method Room Air Room Air Positive well nourished, well developed and obese General Appearance ED: well developed Nutritional Appearance: obese HEENT Reports moist mucous membranes Neck supple and no JVD Resp normal respiratory effort and clear to auscultation bilaterally Cardio regular rate, regular rhythm and no murmurs GI normal to inspection, nondistended, normoactive bowel sounds Palpation: soft and tender epigastric, LLQ, RLQ, LUQ, RUQ, periumbilical and suprapubic; Negative for guarding or rebound tenderness present Extremity normal to inspection General Extremety ED: Negative for edema or tenderness General Extremity: Negative for edema Neuro oriented x3, CN's II-XII intact bilaterally and no sensory deficits noted Sensorium / Orientation: alert Motor Exam: strength 5/5 throughout Psych mental status grossly normal Skin no rashes or lesions noted MDM MDM MDM Narrative Medical decision making narrative: Patient was given fentanyl and Zofran here. CT scan of the abdomen and pelvis was obtained. There is moderate amount of fecal material in the colon. There is no evidence of any obstruction or perforation. This was interpreted by the radiologist and reviewed by myself. Multiple attempts at IV placement and lab draws were obtained. Ultrasound- guided IV placement was attempted without success. Left femoral vein lab draw was attempted without success. Because of this, the PICC line team was contacted to place a PICC line for IV Levaquin. Case was discussed with Dr. Carroll. He is agreeable to having the patient stay in the hospital for failed outpatient treatment. Case was discussed with hospitalist. He will admit the patient for observation to MedSurg unit. Patient understood and was agreeable with the plan. All questions were answered. Radiography Diagnostic Testing: Clinical Impression(s) from Imaging Studies Abdomen CT 05/02/21 14:23 IMPRESSION: Moderate amount of fecal material is seen in the colon. Nonobstructive tiny intrarenal calculi in the upper pole of the left kidney. Electronically Signed: Jacobo Joshi MD at 14:58 EDT , Service support , Treatment and Re-Evaluation Vital Sign Attestation:: Vital signs reviewed prior to admission. They are stable. Discharge Plan Dx/Rx/DC Orders Clinical Impression: Salmonella gastroenteritis Disposition Disposition: Acute Care [facility]
--- NOTE | 2021-05-02 14:23 | CT_ITS ---
STUDY: CT ABDOMEN AND PELVIS WITHOUT CONTRAST REASON FOR EXAM: Female, 45 years old. 9 day history of diarrhea. Abdominal pain. RADIATION DOSAGE (If Supplied By Facility): CTDIvol = ( 28.09 ) mGy, DLP = ( 1429.28 ) mGycm TECHNIQUE: Transaxial images were obtained from the dome of the diaphragm to the symphysis pubis without oral contrast, and without intravenous contrast. Sagittal and coronal images were reconstructed. Individualized dose optimization techniques were used for this CT. COMPARISON: Comparison is made with prior study dated 04/17/2021. FINDINGS: The visualized lung bases are unremarkable. Coronary artery calcification. Normal liver. There are surgical clips in the gallbladder fossa consistent with a prior cholecystectomy. There are multiple benign calcified granulomata of the spleen. Normal pancreas. Normal bilateral adrenal glands. Normal right kidney. There are nonobstructive tiny intrarenal calculi in the upper pole of the left kidney. Normal visualized stomach. Normal small intestine. Moderate amount of fecal material is seen in the right hemicolon. The appendix is visualized and appears normal. There is diffuse atherosclerotic calcification of the abdominal aorta, without a demonstrated aneurysm. Normal inferior vena cava. Normal retroperitoneum. Normal urinary bladder. Normal abdominal wall. The patient is status post laminectomy and interpedicular screw fixation at the L4-L5 and L5-S1 levels. CT/Abdomen/Pel W ORAL Cont Only IMPRESSION: Moderate amount of fecal material is seen in the colon. Nonobstructive tiny intrarenal calculi in the upper pole of the left kidney. Electronically Signed: Jacobo Joshi MD at 14:58 EDT , Service support ,
[2021-05-02] MEDS: fentaNYL 100 MCG/2 ML Ampul 50 MCG IV (14:45)
[2021-05-02] MEDS: Ondansetron ODT 4 MG Tablet PO ×2 (14:45→20:37)
[2021-05-02] MEDS: LORazepam 2 MG/ML Syringe 1 MG IM (15:32)
--- NOTE | 2021-05-02 16:44 | ED.RN ---
called access clerk
[2021-05-02] MEDS: fentaNYL 100 MCG/2 ML Ampul 50 MCG IM (17:05)
--- NOTE | 2021-05-02 17:31 | PCM.HP.STD ---
HPI - General General Date of Admission: 05/02/21 HPI Narrative ADELFO ABCK, is a 45 F who presents to the ED for persisting diarrhea. Of note patient was recently discharged on 04/26/2021 for acute GI bleed in the setting of Salmonella gastroenteritis and DKA. Patient was discharged on ciprofloxacin at that time, she was instructed to follow-up with GI for further evaluation. Patient had persisting abdominal cramping and pain since discharge. She had followed up with urgent care several days ago and her antibiotic regimen was switched to Levaquin at that time. Patient has had continued diarrhea however she does deny any black or bloody stools. She has been having 5-10 episodes of very loose watery diarrhea consistently every day. She called GI doctor yesterday who advised that it was okay for her to start taking Imodium as needed. She reports Imodium to have slightly helped over the night however cramping and pain with diarrhea has persisted. While in the ED vital signs were stable. Labs were unobtainable due to patient having poor venous access for blood draw and IV placement. Ultrasound guidance was attempted however was unsuccessful. PICC team was consulted patient will be receiving PICC later this evening.CT scan of abdomen pelvis was obtained which was largely unremarkable other than moderate amount of fecal material seen within the colon. Gastroenterology was contacted by the ER physician, recommended admission to hospitalist service under observation. Patient admitted to medical floor under observation for failed outpatient therapy and intractable abdominal pain with diarrhea in setting of recent salmonella gastroenteritis. FOR[facility]LY [facility] Medical History Asthma Atherosclerotic heart disease of [place] coronary artery without angina pectoris Blood disorder CHF (congestive heart failure) Chronic obstructive pulmonary disease Current use of insulin Depression Diabetes Diabetes mellitus, type II Dyspnea Essential hypertension GERD (gastroesophageal reflux disease) Heart attack High cholesterol History of anxiety History of stress test HTN (hypertension) Hypercholesterolemia Hypothyroidism Irregular heartbeat Morbid obesity with BMI of 50.0-59.9, adult Nicotine dependence GEOVANI (obstructive sleep apnea) Sleep apnea Sleep-disordered breathing Home Medications albuterol sulfate 1 - 2 puff INHALATION Q4H PRN PRN #1 inhaler 10/15/15 [Rx Last Taken 10/19/20] alprazolam 1 mg PO QHS PRN 08/18/18 [History Last Taken 10/19/20] budesonide-formoterol 2 puff PO BID 05/07/19 [History Last Taken 10/20/20] insulin regular human 26 units SUBCUT TIDCM 05/07/19 [History Last Taken 10/20/20] cyclobenzaprine 5 mg PO TID PRN PRN 07/19/19 [History Last Taken 10/13/20] trazodone 50 mg PO QHS PRN PRN 07/19/19 [History Last Taken 04/16/21 50] bupropion HCl 150 mg PO DAILY 09/25/20 [History Last Taken 10/20/20] bupropion HCl 300 mg PO DAILY 09/25/20 [History Last Taken 10/20/20] aspirin 81 mg tablet,delayed release 81 mg PO DAILY@0800 #30 tablet 11/07/20 [Rx Last Taken Unknown] atorvastatin 80 mg tablet 80 mg PO QHS #30 tab 11/07/20 [Rx Last Taken Unknown] hydralazine 50 mg tablet 50 mg PO BID #90 tab 11/07/20 [Rx Last Taken Unknown] levothyroxine 200 mcg tablet 200 mcg PO DAILY #30 tab 11/07/20 [Rx Last Taken Unknown] levothyroxine 25 mcg tablet 25 mcg PO DAILY #30 tab 11/07/20 [Rx Last Taken Unknown] lisinopril 40 mg tablet 40 mg PO DAILY #30 tab 11/07/20 [Rx Last Taken Unknown] pantoprazole 40 mg tablet,delayed release 40 mg PO DAILY #30 tab 11/07/20 [Rx Last Taken Unknown] ticagrelor 90 mg tablet 90 mg PO BID #60 tablet 11/07/20 [Rx Last Taken Unknown] hydrocodone-acetaminophen 1 tab PO Q6H PRN PRN 3 Days #10 tablet 04/06/21 [Rx Last Taken Unknown] insulin NPH isoph U-100 human 32 units SC BIDAC 04/06/21 [History Last Taken Unknown] carvedilol 12.5 mg PO BID #0 tab 04/20/21 [Rx Last Taken Unknown] metoclopramide HCl [Reglan] 5 mg PO TID PRN PRN #10 tab 04/20/21 [Rx Last Taken Unknown] venlafaxine 75 mg PO DAILY #0 cap 04/20/21 [Rx Last Taken Unknown] lorazepam 0.5 - 1 mg PO DAILY PRN 04/24/21 [History Last Taken Unknown] ciprofloxacin HCl 500 mg PO BID #14 tab 04/26/21 [Rx Last Taken Unknown] colestipol 2 g PO DAILY #60 tab 04/26/21 [Rx Last Taken Unknown] ondansetron HCl [Zofran] 4 mg PO Q8H PRN #10 tab 04/26/21 [Rx Last Taken Unknown] diphenoxylate-atropine 2.5 mg-0.025 mg tablet 1 tab PO TID PRN #30 tab 05/02/21 [Rx Last Taken Unknown] Allergy/AdvReac Type Severity Reaction Status Date / Time metformin [From Glucophage] AdvReac Intermediate Diarrhea Verified 05/02/21 10:30 hydromorphone [From Dilaudid] AdvReac Itching Verified 05/02/21 10:30 morphine AdvReac Itching Verified 05/02/21 10:30 Family History Mother Cancer lung Father Hypertension COPD (chronic obstructive pulmonary disease) Daughter Factor V deficiency Grandmother Cancer lung COPD (chronic obstructive pulmonary disease) Surgical History H/O cardiac catheterization History of back surgery History of delivery History of cholecystectomy History of coronary artery stent placement (09/26/20) History of dilatation and curettage History of left heart catheterization (10/08/20) History of percutaneous transluminal coronary angioplasty (~10/20/20) History of tonsillectomy and adenoidectomy History of tubal ligation S/P tubal ligation Social History household members: none Smoking Status: Current every day smoker tobacco type: cigarettes alcohol intake: current alcohol intake frequency: holidays/special occasions only substance use type: does not use caffeine: Yes ROS Constitutional Constitutional: Denies fever(s), headache(s) or weakness ENT HEENT: Denies abnormal hearing, dizziness, dysphagia or tinnitus Cardiovascular Cardiovascular: Denies chest pain, chest pain with activity, diaphoresis, dizziness, dyspnea, edema, fatigue, flutter in chest, orthopnea, pedal edema or syncope Respiratory/Chest Respiratory/Chest: Denies chest congestion, chest tightness, cough, dyspnea or wheezing Gastrointestinal Gastrointestinal: Reports abdominal pain, cramping, diarrhea, fecal incontinence and loose stools; Denies anorexia, dry heaves, dysphagia, early satiety, heartburn, hematemesis, hematochezia, melena, nausea, rectal bleeding or vomiting Genitourinary Genitourinary: Denies abdominal discomfort, dysuria or flank pain Musculoskeletal Musculoskeletal: Denies arthralgias, difficulty walking, myalgias, numbness or tingling Neurologic Neurologic: Denies abnormal movements, confusion, dizziness, focal weakness, syncope, tremor(s) or weakness Psychiatric Psychiatric: Denies anxiety, confusion or depression Vital Signs Vital Signs Vital Signs: 05/02/21 10:27 05/02/21 14:57 05/02/21 17:07 Temperature 98.6 F Temperature Source Temporal Pulse Rate 107 H 88 99 Respiratory Rate 16 18 18 Blood Pressure 124/92 H 122/89 H Blood Pressure Mean 102 100 Pulse Ox 100 97 97 Oxygen Delivery Method Room Air Room Air Room Air 05/02/21 17:08 Temperature 97.9 F Temperature Source Temporal Pulse Rate 99 Respiratory Rate 18 Blood Pressure 122/89 H Blood Pressure Mean 100 Pulse Ox 97 Oxygen Delivery Method Room Air Weight Weight: 136.078 kg Body Mass Index (BMI) 51.5 Physical Exam Const oriented x3 and no apparent distress General Appearance: cooperative, comfortable, well kempt and well developed Orientation / Consciousness: awake, oriented to person, oriented to place and oriented to time Exam Limitations: no limitations Nutritional Appearance: obese HEENT normocephalic, head/scalp atraumatic, hearing grossly normal bilaterally and oropharynx normal Eyes PERRL and EOMs intact bilaterally Neck General: normal visual inspection and trachea midline Lymph Lymphatic: no lymphadenopathy noted Chest inspection of chest normal and palpation of chest normal Resp normal respiratory effort and normal air movement Auscultation: clear to auscultation bilaterally Cardio regular rate, regular rhythm, S1 normal heart sound, S2 normal heart sound, no murmurs, no rub and no gallops GI normal to inspection, nondistended, normoactive bowel sounds Extremity normal to inspection, normal capillary refill and no pedal edema Peripheral Pulses: Yes pulses 2+ throughout Skin no rashes or lesions noted General Skin Exam: no breakdown Neuro oriented x3, CN's II-XII intact bilaterally and moves all extremities Psych mental status grossly normal Results Radiology Impression Abdomen CT 05/02/21 14:23 IMPRESSION: Moderate amount of fecal material is seen in the colon. Nonobstructive tiny intrarenal calculi in the upper pole of the left kidney. Electronically Signed: Jacobo Joshi MD at 14:58 EDT , Service support , Assessment & Plan Assessment/Plan (1) Failure of outpatient treatment: (2) Salmonella gastroenteritis: (3) History of percutaneous transluminal coronary angioplasty: (4) Essential hypertension: (5) Hypercholesterolemia: (6) Anxiety: PLAN: #Intractable abdominal pain #intractable diarrhea #Recent Salmonella gastroenteritis #Failed outpatient therapy -PICC to be placed -IVF -labs pending at time of admission -advance diet as tolerated -PRN imodium -Zofran PRN for nausea -Levaquin IV started -C- diff PCR pending -GI placed on consult #IDDM, type 2 -resume home insulin regimen -Diabetic diet, advancing as tolerated #CAD #GERD #Depression/anxiety #HTN #Hypothyroidism -stable chronic conditions -resume home medications #DVT PPx -Lovenox SQ Charges/Coding Visit Charges Inpatient E&M: 43042 Init Hosp L3
--- NOTE | 2021-05-02 17:36 | NURSING ---
pt admit [id number]
[2021-05-02 18:30] LABS: Bedside Glucose 198 mg/dL (70-110)
--- NOTE | 2021-05-02 19:35 | CON.PCM.GI_ITS ---
HPI Consult Data Date of Consult: 05/02/21 HPI Narrative HPI Narrative: ADELFO BACK, is a 45 F who presents with diarrhea that has been constant for the past 2 weeks. Patient states she was recently admitted to the hospital and was diagnosed with Acute Salmonella gastroenteritis with associated GI bleed-stool positive for occult blood. Hemoglobin trended down however stable. I was consulted. Initially planned for endoscopy however this was deferred due to stool positive for Salmonella. Cipro 500 mg twice daily for 7 days. Colestipol recommended per GI. She said that she was only to take a couple doses of azithromycin. Patient states she went to a different emergency department and was changed to Levaquin. Patient describes her abdominal pain as squeezing. Patient states it is diffuse across her abdomen. Patient states it radiates into her back. Patient states it is worse with palpation. Patient states it is better with resting and laying flat. Patient denies any melena or hematochezia. Patient states she is also concerned about C. difficile. PFSH Medical History Abdominal pain Asthma Atherosclerotic heart disease of [place] coronary artery without angina pectoris Blood disorder CHF (congestive heart failure) Chronic obstructive pulmonary disease Chronic pain Current use of insulin Depression Diabetes Diabetes mellitus, type II Dyspnea Essential hypertension GERD (gastroesophageal reflux disease) Heart attack High cholesterol History of anxiety History of stress test HTN (hypertension) Hypercholesterolemia Hypothyroidism Irregular heartbeat Morbid obesity with BMI of 50.0-59.9, adult Nicotine dependence GEOVANI (obstructive sleep apnea) Sleep apnea Sleep-disordered breathing Smoker Home Medications albuterol sulfate 1 - 2 puff INHALATION Q4H PRN PRN #1 inhaler 10/15/15 [Rx Last Taken 10/19/20] budesonide-formoterol 2 puff PO BID 05/07/19 [History Last Taken 10/20/20] insulin regular human 26 units SUBCUT TIDCM 05/07/19 [History Last Taken 10/20/20] cyclobenzaprine 5 mg PO TID PRN PRN 07/19/19 [History Last Taken 10/13/20] trazodone 50 mg PO QHS PRN PRN 07/19/19 [History Last Taken 04/16/21 50] bupropion HCl 150 mg PO DAILY 09/25/20 [History Last Taken 10/20/20] bupropion HCl 300 mg PO DAILY 09/25/20 [History Last Taken 10/20/20] aspirin 81 mg tablet,delayed release 81 mg PO DAILY@0800 #30 tablet 11/07/20 [Rx Last Taken Unknown] atorvastatin 80 mg tablet 80 mg PO QHS #30 tab 11/07/20 [Rx Last Taken Unknown] hydralazine 50 mg tablet 50 mg PO BID #90 tab 11/07/20 [Rx Last Taken Unknown] levothyroxine 200 mcg tablet 200 mcg PO DAILY #30 tab 11/07/20 [Rx Last Taken Unknown] levothyroxine 25 mcg tablet 25 mcg PO DAILY #30 tab 11/07/20 [Rx Last Taken Unknown] lisinopril 40 mg tablet 40 mg PO DAILY #30 tab 11/07/20 [Rx Last Taken Unknown] pantoprazole 40 mg tablet,delayed release 40 mg PO DAILY #30 tab 11/07/20 [Rx Last Taken Unknown] ticagrelor 90 mg tablet 90 mg PO BID #60 tablet 11/07/20 [Rx Last Taken Unknown] hydrocodone-acetaminophen 1 tab PO Q6H PRN PRN 3 Days #10 tablet 04/06/21 [Rx Last Taken Unknown] insulin NPH isoph U-100 human 32 units SC BIDAC 04/06/21 [History Last Taken Unknown] carvedilol 12.5 mg PO BID #0 tab 04/20/21 [Rx Last Taken Unknown] metoclopramide HCl [Reglan] 5 mg PO TID PRN PRN #10 tab 04/20/21 [Rx Last Taken Unknown] lorazepam 0.5 - 1 mg PO DAILY PRN 04/24/21 [History Last Taken Unknown] colestipol 2 g PO DAILY #60 tab 04/26/21 [Rx Last Taken Unknown] ondansetron HCl [Zofran] 4 mg PO Q8H PRN #10 tab 04/26/21 [Rx Last Taken Unknown] diphenoxylate-atropine 2.5 mg-0.025 mg tablet 1 tab PO TID PRN #30 tab 05/02/21 [Rx Last Taken Unknown] mirtazapine [Remeron SolTab] 15 mg PO QHS 05/02/21 [History Last Taken Unknown] Allergy/AdvReac Type Severity Reaction Status Date / Time metformin [From Glucophage] AdvReac Intermediate Diarrhea Verified 05/02/21 10:30 hydromorphone [From Dilaudid] AdvReac Itching Verified 05/02/21 10:30 morphine AdvReac Itching Verified 05/02/21 10:30 Family History Mother Cancer lung Father Hypertension COPD (chronic obstructive pulmonary disease) Daughter Factor V deficiency Grandmother Cancer lung COPD (chronic obstructive pulmonary disease) Surgical History H/O cardiac catheterization History of back surgery History of delivery History of cholecystectomy History of coronary artery stent placement (09/26/20) History of dilatation and curettage History of left heart catheterization (10/08/20) History of percutaneous transluminal coronary angioplasty (~10/20/20) History of tonsillectomy and adenoidectomy History of tubal ligation S/P tubal ligation Social History household members: none Smoking Status: Current every day smoker tobacco type: cigarettes alcohol intake: current alcohol intake frequency: holidays/special occasions only substance use type: does not use caffeine: Yes ROS Review of Systems ROS Unobtainable: other Constitutional Constitutional: Denies fatigue, fever(s), poor appetite, weight gain or weight loss ENT HEENT: Denies mouth lesions Cardiovascular Cardiovascular: Denies abdominal bloating, abdominal edema or abdominal pain Respiratory/Chest Respiratory/Chest: Denies change in mental status, change in phlegm color, chest congestion or chest tightness Gastrointestinal Gastrointestinal: Denies belching, bloating, change in bowel habits, change in stool character, chewing difficulty, coffee ground emesis, constipation, cramping, diarrhea, dyspepsia, dysphagia, early satiety, excessive flatus, fecal incontinence, heartburn, hematemesis, hematochezia, hemorrhoids, loose stools, melena, nausea, odynophagia, rectal bleeding, tenesmus, vomiting or weight changes Genitourinary Genitourinary: Denies abdominal discomfort, burning urination or itching Musculoskeletal Musculoskeletal: Reports as per HPI; Denies muscle weakness or myalgias Integumentary Integumentary: Denies jaundice Neurologic Neurologic: Denies lack of coordination or weakness Psychiatric Psychiatric: Denies confusion, depression, memory loss, mood swings, paranoia or suicidal ideation Endocrine Endocrinology: Denies systems reviewed and no addt'l complaints, except as documented Hematologic/Lymphatic Hematologic/Lymphatic: Denies anemia, easy bleeding, easy bruising or lymphadenopathy Allergic/Immunologic Allergic/Immunologic: Denies systems reviewed and no addt'l complaints, except as documented Physical Exam Const alert General Appearance: cooperative Orientation / Consciousness: oriented to person HEENT hearing grossly normal bilaterally Head and Scalp: normal to inspection Face and Sinus: face symmetric Nose: external nose normal Mouth: oral and palatal mucosa normal Eyes conjunctivae normal General Eye: normal appearance of both eyes Neck full ROM General: normal visual inspection Lymph Lymphatic: no lymphadenopathy noted Chest inspection of chest normal and palpation of chest normal Chest: symmetrical chest wall rise Resp normal respiratory effort Effort and Inspection: able to speak in complete sentences Cardio regular rate GI non-distended Percussion: normal to percussion Rectal Exam: deferred Neuro Speech: speech normal Gait (Neuro): normal gait Lab / Micro Data Labs: Laboratory Results - last 24 hr 05/02/21 18:17: POC Glucose 198 H Radiology Impression Abdomen CT 05/02/21 14:23 IMPRESSION: Moderate amount of fecal material is seen in the colon. Nonobstructive tiny intrarenal calculi in the upper pole of the left kidney. Electronically Signed: Jacobo Joshi MD at 14:58 EDT , Service support , Assessment & Plan Assessment/Plan (1) Abdominal pain: PLAN: She has chronic abdominal pain that could be secondary to gastroparesis. She is a very poorly controlled diabetic and has had multiple admissions for DKA. She was able to eat in the emergency room and on the floors.I would just recommend as needed hyoscyamine and Protonix 40 mg a day. (2) Salmonella gastroenteritis: PLAN: Patient should be started back on Levaquin she should have stool st udies check for fecal leukocytes. If there is no fecal leukocytes in her stool that it is likely that she does not have active Salmonella enteritis. Charges/Coding Visit Charges Inpatient E&M: 38400 Init Hosp L3
[2021-05-02] MEDS: LORazepam 1 MG Tablet PO (20:37)
[2021-05-02] MEDS: fentaNYL 100 MCG/2 ML Ampul IM (20:38)
[2021-05-02] MEDS: Metoclopramide 5 MG TABLET PO (22:25)
[2021-05-02] MEDS: TICAGRELOR 90 MG TABLET PO (22:25)
[2021-05-02] MEDS: Atorvastatin Calcium 80 MG Tablet PO (22:25)
[2021-05-02] MEDS: Carvedilol 12.5 MG Tablet PO (22:26)
[2021-05-02] MEDS: hydrALAZINE 50 MG Tablet PO (22:26)
[2021-05-02] MEDS: Lactated Ringers 1,000 ML 75 ML IV (22:34)
[2021-05-02] MEDS: levoFLOXacin IV 750 MG/150 ML BAG 100 MG IV (22:34)
[2021-05-02] MEDS: Insulin Lispro 100 UNIT/ML INSULN.PEN SC (22:54)
[2021-05-02] MEDS: 0.9% Saline Lock 10 ML Syringe IV (22:59)
[2021-05-02 23:05] LABS: Bedside Glucose 384 mg/dL (70-110)
[2021-05-02 23:31] LABS: Absolute Lymphocyte Count 2.86 X10^3/uL (0.83-4.51); Absolute Neutrophil Count 7.3 X10^3/uL (2.0-7.7); Basophil# 0.05 X10^3/uL; Basophil% 0.4 % (0-1); Eosinophils% 0.9 % (0-5); Hematocrit 30.5 % (37-47); Hemoglobin 10.5 g/dL (12.0-15.0); Lymphocyte # 2.86 X10^3/ul (0.83-4.51); Lymphocyte % 24.9 % (19-41); Mean Corp Hgb Conc 34.4 g/dL (32-36); Mean Corpuscular Hgb 33.1 pg (27.0-32.0); Mean Corpuscular Volume 96.2 fL (81-99); Mean Platelet Vol. 9.7 fl (6.2-12.0); Monocyte# 1.09 X10^3/uL; Monocyte% 9.5 % (0-10); NRBC Flagged by Analyzer 0 % (0-5); Neutrophil # 7.27 X10^3/uL (2.7-7.7); Neutrophil % 63.3 % (47-70); POSITIVE MORPHOLOGY YES; Platelet Count 339 K/mm3 (150-450); RBC Distribution Width CV 13.5 % (11.6-14.6); RBC Distribution Width SD 47.7 fl (35.1-43.9); Red Blood Count 3.17 M/mm3 (4.2-5.4); White Blood Count 11.5 K/mm3 (4.4-11.0)
[2021-05-02 23:35] LABS: Differential Indicated SCAN CRITERIA MET
[2021-05-02 23:38] LABS: ALB/GLOB Ratio 0.4 RATIO (0.9-2.4); AST(SGOT) 13 U/L (15-37); Alanine Aminotransfer ALT/SGPT 19 U/L (13-56); Albumin, Serum 1.6 g/dL (3.2-5.0); Alkaline Phosphatase 157 U/L (45-117); Anion Gap 10 (5-15); BUN 9 mg/dL (7-18); BUN/Creat Ratio 12.4 RATIO (10-20); Calcium,Total 7.5 mg/dL (8.5-10.1); Chloride 102 mmol/L (98-107); Creatinine, Serum 0.72 mg/dL (0.55-1.02); EST Glomerular Filtration Rate 91 mL/min (>60); Est Glom Filt Rate - Afr Amer 111 mL/min (>60); Globulin 3.8 g/dL (2.2-4.2); Glucose 425 mg/dL (74-106); Potassium 3.7 mmol/L (3.5-5.1); Protein, Total 5.4 g/dL (6.4-8.2); Sodium Level 136 mmol/L (136-145)
[2021-05-02 23:40] LABS: Lactic Acid 1.2 mmol/L (0.4-1.9)
[2021-05-03 00:03] LABS: Differential Comment SCANNED
[2021-05-03] MEDS: HYDROcodone Bitartrate/Apap 5/325 Tablet PO ×3 (02:53→14:08)
[2021-05-03 02:56] VITALS: BP 124/78; PULSE 100; PULSE 102; RESP 14; TEMP 37.1; O2SAT 100
[2021-05-03 03:06] LABS: Bedside Glucose 373 mg/dL (70-110)
--- NOTE | 2021-05-03 03:18 | NURSING ---
This RN reviewed SN Antony Yee charting and agree with charting.
[2021-05-03] MEDS: Levothyroxine 25 MCG TABLET PO (06:18)
[2021-05-03] MEDS: Levothyroxine 100 MCG Tablet 200 MCG PO (06:18)
[2021-05-03] MEDS: LORazepam 1 MG Tablet PO (06:21)
[2021-05-03] MEDS: Insulin Lispro 100 UNIT/ML INSULN.PEN SC (06:22)
[2021-05-03] MEDS: Insulin NPH Human 100 UNITS/ML PEN 32 UNITS SC (06:24)
[2021-05-03 06:35] LABS: Bedside Glucose 408 mg/dL (70-110)
[2021-05-03 07:54] LABS: Absolute Lymphocyte Count 2.77 X10^3/uL (0.83-4.51); Absolute Neutrophil Count 6.4 X10^3/uL (2.0-7.7); Basophil# 0.05 X10^3/uL; Basophil% 0.5 % (0-1); Hematocrit 29.9 % (37-47); Hemoglobin 10.2 g/dL (12.0-15.0); Lymphocyte # 2.77 X10^3/ul (0.83-4.51); Lymphocyte % 26.7 % (19-41); Mean Corp Hgb Conc 34.1 g/dL (32-36); Mean Corpuscular Hgb 32.7 pg (27.0-32.0); Mean Corpuscular Volume 95.8 fL (81-99); Mean Platelet Vol. 9.3 fl (6.2-12.0); Monocyte# 0.99 X10^3/uL; Monocyte% 9.5 % (0-10); NRBC Flagged by Analyzer 0 % (0-5); Neutrophil # 6.38 X10^3/uL (2.7-7.7); Neutrophil % 61.5 % (47-70); POSITIVE MORPHOLOGY YES; Platelet Count 330 K/mm3 (150-450); RBC Distribution Width CV 13.4 % (11.6-14.6); RBC Distribution Width SD 47.1 fl (35.1-43.9); Red Blood Count 3.12 M/mm3 (4.2-5.4); White Blood Count 10.4 K/mm3 (4.4-11.0)
[2021-05-03 07:55] LABS: Differential Indicated SCAN CRITERIA MET
[2021-05-03 08:00] VITALS: O2SAT 94
[2021-05-03 08:22] LABS: ALB/GLOB Ratio 0.4 RATIO (0.9-2.4); AST(SGOT) 12 U/L (15-37); Alanine Aminotransfer ALT/SGPT 15 U/L (13-56); Albumin, Serum 1.4 g/dL (3.2-5.0); Alkaline Phosphatase 143 U/L (45-117); Anion Gap 8 (5-15); BUN 10 mg/dL (7-18); BUN/Creat Ratio 13.8 RATIO (10-20); Calcium,Total 7.6 mg/dL (8.5-10.1); Chloride 99 mmol/L (98-107); Creatinine, Serum 0.73 mg/dL (0.55-1.02); EST Glomerular Filtration Rate 91 mL/min (>60); Est Glom Filt Rate - Afr Amer 110 mL/min (>60); Estimated Creatinine Clearance 78.81 ml/min; Globulin 3.9 g/dL (2.2-4.2); Glucose 353 mg/dL (74-106); Magnesium 1.7 mg/dL (1.6-2.6); Potassium 3.5 mmol/L (3.5-5.1); Protein, Total 5.3 g/dL (6.4-8.2); Sodium Level 132 mmol/L (136-145)
[2021-05-03 08:43] VITALS: BP 116/76; PULSE 107; RESP 16; TEMP 36.6; O2SAT 98
[2021-05-03] MEDS: Aspirin E.C. 81 MG Tablet PO (08:51)
[2021-05-03] MEDS: Carvedilol 12.5 MG Tablet PO (08:53)
[2021-05-03] MEDS: TICAGRELOR 90 MG TABLET PO (08:53)
[2021-05-03] MEDS: Venlafaxine XR 75 MG Capsule PO (08:54)
[2021-05-03] MEDS: Enoxaparin 40 MG/0.4 ML Syringe SC (08:54)
[2021-05-03] MEDS: Pantoprazole Sodium 40 MG Tablet PO (08:55)
[2021-05-03] MEDS: buPROPion (XL) 150 MG TABLET.XL PO (08:55)
[2021-05-03] MEDS: Lisinopril 40 MG Tablet PO (08:55)
[2021-05-03] MEDS: buPROPion (XL) 300 MG TABLET.XL PO (08:55)
[2021-05-03 09:30] LABS: Bedside Glucose 369 mg/dL (70-110)
[2021-05-03] MEDS: Insulin Lispro 100 UNIT/ML INSULN.PEN 26 UNIT SC ×2 (09:39→13:53)
[2021-05-03 09:42] VITALS: PULSE 107
[2021-05-03] MEDS: hydrALAZINE 50 MG Tablet PO (09:42)
--- NOTE | 2021-05-03 10:30 | CASEMGMT ---
RUDI NUNEZ WILDLIFE SCIENCE PROFESSOR MAYRA to room to meet with patient for initial transition planning/care coordination assessment. RUDI NUNEZ introduced self and role at [facility]. Pt voices understanding and consents to assessment at this time. Pt sitting up in chair in room in no distress at this time. Pt is A/O at this time and answers all questions appropriately. Care providers, pharmacy, and demographics verified/updated at this time. PCP: Dr Galindo Specialists: Dr Lucero-cardiology, MERLIN Enrique @ [facility] pulmonology Preferred Pharmacy:[facility] [place], [place] Insurance: [employer] [facility], [place] Prescription Benefit: Yes Living Will/HPOA: States does not have LW or HCPOA . Interested in more information and would like to talk with SW to complete paperwork. Provided information on advanced directives and given Social Service rac card with number to call if chooses in the future to utilize [facility] social work for advanced directive completion if SW is unable to meet w/her while before being discharged. Patient expresses understanding. LNOK: , [place] Living Arrangements: Lives w/ in one-story home w/no steps to enter through the back entrance. Independent w/ADL's. States I do my best re: IADL's. helps w/home mgmt tasks. Transportation: Pt does not drive. provides transportation DME: States has a glucometer. Pt states has been unsteady in the shower and would like a shower chair. Pt denies preference of DME co. TC to Kerry @ [facility]. Shower chair will be covered by [facility]. They do not have shower chair in stock but can order it and have it delivered to pt's home in about 2 weeks. Pt made aware and agreeable to same. Script for shower chair obtained and faxed to [facility]. Pt provided w/[facility]'s contact information. Pt stated she fell in her room just a little while ago. RN and MD are aware. Pt states she would like something to assist w/walking/balance, as she has been weak and unsteady at times. Pt made aware cane would not be covered by insurance. Pt states is interested in getting a walker. Script obtained for walker per pt's request. Pt later informed RUDI NUNEZ she feels a cane would work well for her and she plans on purchasing a cane and does not feel she needs a walker today. Pt provided w/script for walker if she decides she needs one later. HHC/SNF: No history of either. Denies need for HHC. Pt wishes to return home and states has no concerns with going home at time of discharge. CM to follow for any further discharge planning/needs. Pt voices no further concerns/needs at this time. Advised pt to ask for CM if any further questions/concerns/needs arise. Voices understanding. PLAN: Home w/family support and discharge plans in place. Ken OGDEN RN CM
[2021-05-03 12:26] LABS: Bedside Glucose 244 mg/dL (70-110)
[2021-05-03] MEDS: levoFLOXacin IV 750 MG/150 ML BAG 100 MG IV (13:42)
[2021-05-03] MEDS: Lactated Ringers 1,000 ML 75 ML IV (13:43)
--- NOTE | 2021-05-03 13:45 | CASEMGMT ---
SOCIAL WORK Referral Source: Case Management Reason for Consult: Advanced Directives Met with patient in room. Introduced role and reason for referral. Reviewed Advanced Directive documents with patient. Patient reports would not like to complete at this time, would just like to take forms home. Patient provided with blank copy of forms. Adair Rosado, CALENDER WIND UP TENDER, MATERIAL HANDLING SUPERVISOR
--- NOTE | 2021-05-03 13:56 | PCM.DC ---
Discharge Instructions Diet Discharge Diet: 1800 Calorie Control Diet Activity Discharge Activity: Return to Normal Activity Weight Bearing Status: Full weight bearing Follow Up Care Test Results: Test results from this visit will be discussed in further detail at your follow-up appointment, if applicable. Discharge Plan Admission Admit Date/Time: 05/02/21 17:12 Primary Reason for Your Visit: gastroenteritis Attending Provider: Ramesh Valentine Primary Care Provider: Carlotta Galindo Discharge Orders/Prescriptions Prescriptions: New loperamide 2 mg capsule 4 mg PO Q6H PRN (Reason: loose stool) Qty: 15 RF: 0 dicyclomine 20 mg tablet 20 mg PO TID PRN PRN (Reason: cramps) Qty: 15 RF: 0 Continued albuterol sulfate 1 INHALER inhaler 1 - 2 puff inhalation Q4H PRN PRN (Reason: Wheezing) Qty: 1 RF: 0 budesonide-formoterol 160-4.5MCG inhaler 2 puff PO BID RF: 0 insulin regular human 100 UNIT/ML solution 26 units subcut TIDCM RF: 0 cyclobenzaprine 10 MG tablet 5 mg PO TID PRN PRN (Reason: Muscle Spasm) RF: 0 trazodone 50 MG tablet 50 mg PO QHS PRN PRN (Reason: Sleep) RF: 0 bupropion HCl 300 MG tablet extended release 24 hr 300 mg PO DAILY RF: 0 bupropion HCl 150 MG tablet extended release 24 hr 150 mg PO DAILY RF: 0 insulin NPH isoph U-100 human 100 UNITS/ML insulin pen 32 units SC BIDAC RF: 0 hydrocodone-acetaminophen 1 TABLET tablet 1 tab PO Q6H PRN PRN (Reason: Pain) 3 Days Qty: 10 RF: 0 carvedilol 12.5 mg Tablet 12.5 mg PO BID Qty: 0 RF: 0 metoclopramide HCl [Reglan] 5 mg tablet 5 mg PO TID PRN PRN (Reason: nausea/vomiting) Qty: 10 RF: 0 lorazepam 1 mg tablet 0.5 - 1 mg PO DAILY PRN (Reason: Anxiety) RF: 0 ondansetron HCl [Zofran] 4 mg tablet 4 mg PO Q8H PRN (Reason: nausea and vomiting) Qty: 10 RF: 0 colestipol 1 gram tablet 2 g PO DAILY Qty: 60 RF: 0 mirtazapine [Remeron SolTab] 15 mg Tablet,Disintegrating 15 mg PO QHS RF: 0 ticagrelor 90 mg tablet 90 mg PO BID Qty: 60 RF: 11 aspirin 81 mg tablet,delayed release (DR/EC) 81 mg PO DAILY@0800 Qty: 30 RF: 11 atorvastatin 80 mg tablet 80 mg PO QHS Qty: 30 RF: 11 hydralazine 50 mg tablet 50 mg PO BID Qty: 90 RF: 11 lisinopril 40 mg tablet 40 mg PO DAILY Qty: 30 RF: 11 pantoprazole 40 mg tablet,delayed release (DR/EC) 40 mg PO DAILY Qty: 30 RF: 11 levothyroxine 200 mcg tablet 200 mcg PO DAILY Qty: 30 RF: 11 levothyroxine 25 mcg tablet 25 mcg PO DAILY Qty: 30 RF: 11 Discontinued diphenoxylate-atropine [Lomotil] 2.5-0.025 mg tablet 1 tab PO TID PRN (Reason: diarrhea) Qty: 30 RF: 0 Referrals / Follow Up: Carlotta Galindo MD [Primary Care Provider] - Within 1 Week Disposition Disposition (needs filled in before D/C Order can be placed): Home, Self Care
[2021-05-03] MEDS: Loperamide 2 MG Capsule PO (13:57)
[2021-05-03 13:59] VITALS: BP 128/76; PULSE 99; RESP 16; TEMP 36.9; O2SAT 99
--- NOTE | 2021-05-03 16:15 | PCM.DC.SUM ---
Providers Date of Admission: 05/02/21 Date of Discharge: 05/03/21 Primary Care Physician: Dr. Carlotta Galindo MD Consultations 05/02/21 18:10 Consult: Gastroenterology Routine Consulting Provider: [facility] Reason for Consult: persisting diet, recent salmonella gastroenteritis EMERGENT Consult: No MD Notified: Yes Date Notified: 05/02/21 Time Notified: 17:41 Method of Notification: doctor in to see the pt Reason For Visit: INTRACTABLE ABD PAIN / PERSISTENT DIARRHEA Diagnosis Discharge Diagnosis (1) Abdominal pain: Code(s): R10.9 - Unspecified abdominal pain (2) Salmonella gastroenteritis: Status: Resolved Code(s): A02.0 - Salmonella enteritis Plan: Final diagnosis: 1. Salmonella gastroenteritis #2 essential hypertension #3 hyperlipidemia #4 morbid obesity #5 chronic anxiety Medications at Discharge Home Medications albuterol sulfate 1 - 2 puff INHALATION Q4H PRN PRN #1 inhaler 10/15/15 budesonide-formoterol 2 puff PO BID 05/07/19 insulin regular human 26 units SUBCUT TIDCM 05/07/19 cyclobenzaprine 5 mg PO TID PRN PRN 07/19/19 trazodone 50 mg PO QHS PRN PRN 07/19/19 bupropion HCl 150 mg PO DAILY 09/25/20 bupropion HCl 300 mg PO DAILY 09/25/20 aspirin 81 mg tablet,delayed release 81 mg PO DAILY@0800 #30 tablet 11/07/20 atorvastatin 80 mg tablet 80 mg PO QHS #30 tab 11/07/20 hydralazine 50 mg tablet 50 mg PO BID #90 tab 11/07/20 levothyroxine 200 mcg tablet 200 mcg PO DAILY #30 tab 11/07/20 levothyroxine 25 mcg tablet 25 mcg PO DAILY #30 tab 11/07/20 lisinopril 40 mg tablet 40 mg PO DAILY #30 tab 11/07/20 pantoprazole 40 mg tablet,delayed release 40 mg PO DAILY #30 tab 11/07/20 ticagrelor 90 mg tablet 90 mg PO BID #60 tablet 11/07/20 hydrocodone-acetaminophen 1 tab PO Q6H PRN PRN 3 Days #10 tablet 04/06/21 insulin NPH isoph U-100 human 32 units SC BIDAC 04/06/21 carvedilol 12.5 mg PO BID #0 tab 04/20/21 metoclopramide HCl [Reglan] 5 mg PO TID PRN PRN #10 tab 04/20/21 lorazepam 0.5 - 1 mg PO DAILY PRN 04/24/21 colestipol 2 g PO DAILY #60 tab 04/26/21 ondansetron HCl [Zofran] 4 mg PO Q8H PRN #10 tab 04/26/21 mirtazapine [Remeron SolTab] 15 mg PO QHS 05/02/21 dicyclomine 20 mg PO TID PRN PRN #15 tab 05/03/21 loperamide 4 mg PO Q6H PRN #15 cap 05/03/21 Hospital Course Operations None Procedures None Summary of Care Provided Minutes Spent on Discharge: 30 Hospital Course: This 45-year-old white female was seen in the emergency room at [facility] with a chief complaint of abdominal cramping and continued rectal bleeding, she had recently been diagnosed with Salmonella gastroenteritis and had been discharged from the hospital here only to return on 05/02/2021 for reevaluation. Patient was given Zofran and fentanyl in the emergency room, CT scan of the abdomen and pelvis was obtained which showed a moderate amount of fecal material in the colon there was no evident evidence of obstruction or perforation. A PICC line was placed for IV Levaquin, a director specialty was contacted and he agreed to see the patient in consultation. Patient was placed in observation status on MedSurg 3 and her IV antibiotics for Salmonella was continued. Patient was evaluated the next morning and felt to be stable for discharge-she requested a wheeled walker and a shower chair at the time of discharge. On 05/03/2021, patient was seen and examined: On examination she appeared in good health and spirits, she does not appear to be in any distress. Vital signs as documented. Skin warm and dry and without overt rashes. Neck without JVD, thyroid appears normal, trachea is midline, neck is supple. Lungs clear, normal air movement was noted. Heart exam notable for regular rhythm, normal sounds and absence of murmurs, rubs or gallops. Abdomen unremarkable and without evidence of organomegaly, masses, or abdominal aortic enlargement, bowel sounds are present in all 4 quadrants, no abdominal tenderness was noted. Patient was morbidly obese. Extremities nonedematous, no cyanosis was noted, no clubbing was noted. Neuro: Cranial nerves II through XII are grossly intact, no focal motor deficits were noted, sensation to light touch and pinprick is intact, motor exam 5/5 throughout. Psych: Patient is alert and oriented x3, she does not appear anxious or depressed, she does not appear agitated. Patient was discharged in stable condition on 05/03/2021. Weight / BMI Weight Weight: 144.696 kg Body Mass Index (BMI) 56.5 ABG / Lab / Microbiology Data Result Diagrams: 05/03/21 07:40 05/03/21 07:40 Laboratory: Laboratory Results - last 24 hr 05/02/21 18:17: POC Glucose 198 H 05/02/21 22:31: POC Glucose 384 H 05/02/21 22:50: WBC 11.5 H, RBC 3.17 L, Hgb 10.5 L, Hct 30.5 L, MCV 96.2, MCH 33.1 H, MCHC 34.4, RDW Std Deviation 47.7 H, RDW Coeff of Whitney 13.5, Plt Count 339, MPV 9.7, Immature Gran % (Auto) 1.000 H, Neut % (Auto) 63.3, Lymph % (Auto) 24.9, [place] % (Auto) 9.5, Eos % (Auto) 0.9, Baso % (Auto) 0.4, Absolute Neuts (auto) 7.3, Absolute Lymphs (auto) 2.86, Nucleated RBC % 0, Differential Comment SCANNED 05/02/21 22:50: Sodium 136, Potassium 3.7, Chloride 102, Carbon Dioxide 24.0, Anion Gap 10, BUN 9, Creatinine 0.72, Estim Creat Clear Calc 79.90, Est GFR (MDRD) Af Amer 111, Est GFR (MDRD) Non-Af 91, BUN/Creatinine Ratio 12.4, Glucose 425 H, Calcium 7.5 L, Total Bilirubin 0.40, AST 13 L, ALT 19, Alkaline Phosphatase 157 H, Total Protein 5.4 L, Albumin 1.6 L, Globulin 3.8, Albumin/Globulin Ratio 0.4 L 05/02/21 22:50: Lactic Acid 1.2 05/03/21 03:03: POC Glucose 373 H 05/03/21 06:16: POC Glucose 408 H 05/03/21 07:40: WBC 10.4, RBC 3.12 L, Hgb 10.2 L, Hct 29.9 L, MCV 95.8, MCH 32.7 H, MCHC 34.1, RDW Std Deviation 47.1 H, RDW Coeff of Whitney 13.4, Plt Count 330, MPV 9.3, Immature Gran % (Auto) 0.800, Neut % (Auto) 61.5, Lymph % (Auto) 26.7, [place] % (Auto) 9.5, Eos % (Auto) 1.0, Baso % (Auto) 0.5, Absolute Neuts (auto) 6.4, Absolute Lymphs (auto) 2.77, Nucleated RBC % 0, Differential Comment 05/03/21 07:40: Sodium 132 L, Potassium 3.5, Chloride 99, Carbon Dioxide 25.0, Anion Gap 8, BUN 10, Creatinine 0.73, Estim Creat Clear Calc 78.81, Est GFR (MDRD) Af Amer 110, Est GFR (MDRD) Non-Af 91, BUN/Creatinine Ratio 13.8, Glucose 353 H, Calcium 7.6 L, Magnesium 1.7, Total Bilirubin 0.50, AST 12 L, ALT 15, Alkaline Phosphatase 143 H, Total Protein 5.3 L, Albumin 1.4 L, Globulin 3.9, Albumin/Globulin Ratio 0.4 L 05/03/21 09:25: POC Glucose 369 H 05/03/21 12:16: POC Glucose 244 H Microbiology: Microbiology 05/02/21 13:30 Stool C. difficile DNA Amplification - Final D/C Instructions Discharge Diet: 1800 Calorie Control Diet Weight Bearing Status: Full weight bearing Meaningful Use Info Meaningful Use Diagnoses (Choose all that apply): None applicable Discharge Plan Admission Admit Date/Time: 05/02/21 17:12 Primary Reason for Your Visit: gastroenteritis Attending Provider: Ramesh Valentine Primary Care Provider: Carlotta Galindo Discharge Orders/Prescriptions Prescriptions: New loperamide 2 mg capsule 4 mg PO Q6H PRN (Reason: loose stool) Qty: 15 RF: 0 dicyclomine 20 mg tablet 20 mg PO TID PRN PRN (Reason: cramps) Qty: 15 RF: 0 Continued albuterol sulfate 1 INHALER inhaler 1 - 2 puff inhalation Q4H PRN PRN (Reason: Wheezing) Qty: 1 RF: 0 budesonide-formoterol 160-4.5MCG inhaler 2 puff PO BID RF: 0 insulin regular human 100 UNIT/ML solution 26 units subcut TIDCM RF: 0 cyclobenzaprine 10 MG tablet 5 mg PO TID PRN PRN (Reason: Muscle Spasm) RF: 0 trazodone 50 MG tablet 50 mg PO QHS PRN PRN (Reason: Sleep) RF: 0 bupropion HCl 300 MG tablet extended release 24 hr 300 mg PO DAILY RF: 0 bupropion HCl 150 MG tablet extended release 24 hr 150 mg PO DAILY RF: 0 insulin NPH isoph U-100 human 100 UNITS/ML insulin pen 32 units SC BIDAC RF: 0 hydrocodone-acetaminophen 1 TABLET tablet 1 tab PO Q6H PRN PRN (Reason: Pain) 3 Days Qty: 10 RF: 0 carvedilol 12.5 mg Tablet 12.5 mg PO BID Qty: 0 RF: 0 metoclopramide HCl [Reglan] 5 mg tablet 5 mg PO TID PRN PRN (Reason: nausea/vomiting) Qty: 10 RF: 0 lorazepam 1 mg tablet 0.5 - 1 mg PO DAILY PRN (Reason: Anxiety) RF: 0 ondansetron HCl [Zofran] 4 mg tablet 4 mg PO Q8H PRN (Reason: nausea and vomiting) Qty: 10 RF: 0 colestipol 1 gram tablet 2 g PO DAILY Qty: 60 RF: 0 mirtazapine [Remeron SolTab] 15 mg Tablet,Disintegrating 15 mg PO QHS RF: 0 ticagrelor 90 mg tablet 90 mg PO BID Qty: 60 RF: 11 aspirin 81 mg tablet,delayed release (DR/EC) 81 mg PO DAILY@0800 Qty: 30 RF: 11 atorvastatin 80 mg tablet 80 mg PO QHS Qty: 30 RF: 11 hydralazine 50 mg tablet 50 mg PO BID Qty: 90 RF: 11 lisinopril 40 mg tablet 40 mg PO DAILY Qty: 30 RF: 11 pantoprazole 40 mg tablet,delayed release (DR/EC) 40 mg PO DAILY Qty: 30 RF: 11 levothyroxine 200 mcg tablet 200 mcg PO DAILY Qty: 30 RF: 11 levothyroxine 25 mcg tablet 25 mcg PO DAILY Qty: 30 RF: 11 Discontinued diphenoxylate-atropine [Lomotil] 2.5-0.025 mg tablet 1 tab PO TID PRN (Reason: diarrhea) Qty: 30 RF: 0 Referrals / Follow Up: Carlotta Galindo MD [Primary Care Provider] - Within 1 Week Disposition Disposition (needs filled in before D/C Order can be placed): Home, Self Care Charges/Coding Visit Charges OBSV E&M: 45432 Observation care discharge
[2021-05-03 16:50] LABS: Bedside Glucose 90 mg/dL (70-110)
[2021-05-03] MEDS: 0.9% Saline Lock 10 ML Syringe IV (17:10)
== END 2021-05-03 17:30 | disposition home or self-care (01) ==
LOC: ED 17:03 → MS3 17:29
PROVIDERS: Admitting Provider Internal Medicine; Emergency Provider Emergency Medicine; PCP Internal Medicine; Visit Provider Internal Medicine
DX: A02.0 Salmonella enteritis (principal); I25.10 Atherosclerotic heart disease of native coronary artery without angina pectoris; K21.9 Gastro-esophageal reflux disease without esophagitis; J44.9 Chronic obstructive pulmonary disease, unspecified; I50.9 Heart failure, unspecified; I11.0 Hypertensive heart disease with heart failure; F32.A Depression, unspecified; E11.9 Type 2 diabetes mellitus without complications; E78.5 Hyperlipidemia, unspecified; I25.2 Old myocardial infarction; F41.9 Anxiety disorder, unspecified; E03.9 Hypothyroidism, unspecified; G47.33 Obstructive sleep apnea (adult) (pediatric); G89.29 Other chronic pain; F17.210 Nicotine dependence, cigarettes, uncomplicated; E66.01 Morbid (severe) obesity due to excess calories; Z68.43 Body mass index [BMI] 50.0-59.9, adult; Z79.899 Other long term (current) drug therapy; Z79.890 Hormone replacement therapy; Z79.4 Long term (current) use of insulin; Z79.82 Long term (current) use of aspirin
CPT/HCPCS: 36569; 74176; 80053; 82962; 83605; 83735; 85025; 87493; 96361; 96365; 96366; 96372; 96375; 97802; 99218; 99285; J7120; A4216; G0378

== ENCOUNTER 2021-05-06 17:28 | Emergency (ER) | payer MEDICARE, MEDICAID, SELFPAY ==
[2019-05-06 13:18] VITALS: BMI 56.7
[2021-05-06 17:29] VITALS: BP 120/85; PULSE 96; RESP 18; TEMP 36.1; O2SAT 100; BMI 53.1
--- NOTE | 2021-05-06 17:32 | ED.RN ---
PT NOW REPORTS CHEST PAIN, 01/12. WILL CALL RESPIRATORY FOR EKG.
--- NOTE | 2021-05-06 17:38 | EKG12_ITS ---
Test Reason : CP Blood Pressure : / mmHG Vent. Rate : 096 BPM Atrial Rate : 096 BPM P-R Int : 154 ms QRS Dur : 086 ms QT Int : 368 ms P-R-T Axes : 050 009 028 degrees QTc Int : 464 ms Normal sinus rhythm Low voltage QRS Inferior infarct , age undetermined, cannot be excluded Abnormal ECG Confirmed by TACOS SILVA, LACEY ([id number]), staff editor ODALYS PHILIPPE ([id number]) on 05/08/2021 8:45:11 AM Referred By: CECILIA/MONET Confirmed By:LACEY BALDERRAMA MD
--- NOTE | 2021-05-06 20:20 | EX.ED.DYSGE1 ---
HPI History of Present Illness Chief Complaint: Edema Informant: patient Onset/Context/Timing Onset: Days (2) Context: Gradual Onset Timing: Continuous Quality: Edema now with blister formation Location: Both lower extremities Current Severity: Severe Maximum Severity: Severe Associated Symptoms Associated Symptoms: Decreased urine output despite good fluid intake Narrative Narrative: Patient currently being treated for Salmonella, she continues to have diarrhea she has had 5 bouts during the course of the day today, it is not significantly better but not getting worse, she has had this for maybe a week or 2, and she is still having periumbilical abdominal cramping. She is chronic dyspnea with exertion, she states that maybe it is a little worse and denies any chest pain or fevers. She was having rectal bleeding that is gone. PFSH PFSH Medical History Abdominal pain Asthma Atherosclerotic heart disease of knik coronary artery without angina pectoris Blood disorder CHF (congestive heart failure) Chronic obstructive pulmonary disease Chronic pain Current use of insulin Depression Diabetes Diabetes mellitus, type II Dyspnea Essential hypertension Failure of outpatient treatment GERD (gastroesophageal reflux disease) Heart attack High cholesterol History of anxiety History of stress test HTN (hypertension) Hypercholesterolemia Hypothyroidism Irregular heartbeat Morbid obesity with BMI of 50.0-59.9, adult Nicotine dependence GEOVANI (obstructive sleep apnea) Sleep apnea Sleep-disordered breathing Smoker Home Medications albuterol sulfate 1 - 2 puff INHALATION Q4H PRN PRN #1 inhaler 10/15/15 [Rx Last Taken 10/19/20] budesonide-formoterol 2 puff PO BID 05/07/19 [History Last Taken 10/20/20] insulin regular human 26 units SUBCUT TIDCM 05/07/19 [History Last Taken 10/20/20] cyclobenzaprine 5 mg PO TID PRN PRN 07/19/19 [History Last Taken 10/13/20] trazodone 50 mg PO QHS PRN PRN 07/19/19 [History Last Taken 04/16/21 50] bupropion HCl 150 mg PO DAILY 09/25/20 [History Last Taken 10/20/20] bupropion HCl 300 mg PO DAILY 09/25/20 [History Last Taken 10/20/20] aspirin 81 mg tablet,delayed release 81 mg PO DAILY@0800 #30 tablet 11/07/20 [Rx Last Taken Unknown] atorvastatin 80 mg tablet 80 mg PO QHS #30 tab 11/07/20 [Rx Last Taken Unknown] hydralazine 50 mg tablet 50 mg PO BID #90 tab 11/07/20 [Rx Last Taken Unknown] levothyroxine 200 mcg tablet 200 mcg PO DAILY #30 tab 11/07/20 [Rx Last Taken Unknown] levothyroxine 25 mcg tablet 25 mcg PO DAILY #30 tab 11/07/20 [Rx Last Taken Unknown] lisinopril 40 mg tablet 40 mg PO DAILY #30 tab 11/07/20 [Rx Last Taken Unknown] pantoprazole 40 mg tablet,delayed release 40 mg PO DAILY #30 tab 11/07/20 [Rx Last Taken Unknown] ticagrelor 90 mg tablet 90 mg PO BID #60 tablet 11/07/20 [Rx Last Taken Unknown] hydrocodone-acetaminophen 1 tab PO Q6H PRN PRN 3 Days #10 tablet 04/06/21 [Rx Last Taken Unknown] insulin NPH isoph U-100 human 32 units SC BIDAC 04/06/21 [History Last Taken Unknown] carvedilol 12.5 mg PO BID #0 tab 04/20/21 [Rx Last Taken Unknown] metoclopramide HCl [Reglan] 5 mg PO TID PRN PRN #10 tab 04/20/21 [Rx Last Taken Unknown] lorazepam 0.5 - 1 mg PO DAILY PRN 04/24/21 [History Last Taken Unknown] colestipol 2 g PO DAILY #60 tab 04/26/21 [Rx Last Taken Unknown] ondansetron HCl [Zofran] 4 mg PO Q8H PRN #10 tab 04/26/21 [Rx Last Taken Unknown] mirtazapine [Remeron SolTab] 15 mg PO QHS 05/02/21 [History Last Taken Unknown] dicyclomine 20 mg PO TID PRN PRN #15 tab 05/03/21 [Rx Last Taken Unknown] loperamide 4 mg PO Q6H PRN #15 cap 05/03/21 [Rx Last Taken Unknown] Allergy/AdvReac Type Severity Reaction Status Date / Time metformin [From Glucophage] AdvReac Intermediate Diarrhea Verified 05/06/21 17:29 hydromorphone [From Dilaudid] AdvReac Itching Verified 05/06/21 17:29 morphine AdvReac Itching Verified 05/06/21 17:29 Family History Mother Cancer lung Father Hypertension COPD (chronic obstructive pulmonary disease) Daughter Factor V deficiency Grandmother Cancer lung COPD (chronic obstructive pulmonary disease) Surgical History H/O cardiac catheterization History of back surgery History of delivery History of cholecystectomy History of coronary artery stent placement (09/26/20) History of dilatation and curettage History of left heart catheterization (10/08/20) History of percutaneous transluminal coronary angioplasty (~10/20/20) History of tonsillectomy and adenoidectomy History of tubal ligation S/P tubal ligation Social History household members: none Smoking Status: Current every day smoker tobacco type: cigarettes alcohol intake: current alcohol intake frequency: holidays/special occasions only substance use type: does not use caffeine: Yes ROS ROS ED Constitutional Constitutional ED: Denies chills or fever(s) Eyes Eyes: Denies change in vision or diplopia ENT ENT ED: Denies rhinorrhea or sore throat Cardiovascular Cardiovascular: Reports edema; Denies chest pain or palpitations Respiratory/Chest Respiratory/Chest: Reports dyspnea on exertion; Denies cough Gastrointestinal Gastrointestinal: Reports as per HPI, abdominal pain and diarrhea; Denies hematochezia, nausea or vomiting Genitourinary Genitourinary ED: Reports decreased urination; Denies dysuria or hematuria Musculoskeletal Musculoskeletal: Denies back pain or neck pain Integumentary Denies abscess or rash Neurologic Neurologic: Denies headache(s), paresthesias or weakness Psychiatric Psychiatric: Reports anxiety; Denies suicidal thoughts EXAM Physical Exam Const Vital Signs: 05/06/21 17:29 05/06/21 19:42 05/06/21 21:00 Temperature 96.9 F L Temperature Source Temporal Pulse Rate 96 99 Respiratory Rate 18 15 Respiratory Effort Normal Non-Labored Respiratory Pattern Normal Blood Pressure 120/85 H 103/74 Blood Pressure Mean 96 83 Pulse Ox 100 99 Oxygen Delivery Method Room Air Room Air 05/06/21 21:08 05/06/21 23:17 05/07/21 00:51 Temperature Temperature Source Pulse Rate 100 98 101 H Respiratory Rate 20 H 16 18 Respiratory Effort Respiratory Pattern Blood Pressure 100/74 87/67 L 99/53 L Blood Pressure Mean 82 73 68 Pulse Ox 99 97 99 Oxygen Delivery Method Room Air Room Air Room Air 05/07/21 01:33 Temperature Temperature Source Pulse Rate 102 H Respiratory Rate 18 Respiratory Effort Respiratory Pattern Blood Pressure 120/79 Blood Pressure Mean 92 Pulse Ox 99 Oxygen Delivery Method Room Air Positive well nourished and well developed General Appearance ED: well developed and NAD Nutritional Appearance: morbidly obese HEENT Reports moist mucous membranes normocephalic and atraumatic Eyes PERRL and EOMs intact bilaterally Neck full ROM and supple Resp normal respiratory effort and clear to auscultation bilaterally Cardio regular rate, regular rhythm and no murmurs GI non-distended GI Narrative: Mildly tender across supraumbilical area from right to left, no lower abdominal tenderness, no Charlton's. No guarding or rebound tenderness. Auscultation: hyperactive bowel sounds Palpation: soft Back/Spine no CVA tenderness General Back: other FROM Extremity normal to inspection General Extremety ED: Yes edema; Negative for pulses abnormal or tenderness General Extremity: edema bilateral lower extremity Details: severe (2-3+ symmetric edema to the knees, with small nonruptured blister formation on both feet. Patient states couple small ones have ruptured, there are no signs of infection or tenderness.); Negative for pulses abnormal Neuro oriented x3, CN's II-XII intact bilaterally and no sensory deficits noted Sensorium / Orientation: awake and alert Motor Exam: strength 5/5 throughout Skin no rashes or lesions noted and no wounds MDM MDM MDM Narrative Medical decision making narrative: Initial concern was for possible hemolytic uremic syndrome. I discussed with the electron beam photo mask technician, he did the peripheral blood smear and there are no schistocytes to indicate microangiopathic hemolytic anemia. Furthermore, she has been anemic but not severely so, I suspect this was due to the bleeding that she was having that has stopped, hence her anemia has been stable for the last week or so. I added an LDH which is negative, liver enzymes show that her albumin is very low, likely causing her edema from loss of osmotic pressure. Haptoglobin is still pending. She does have proteinuria that is worse than it was before. She does not have thrombocytopenia. She was given IV albumin 25 g, prior to that her blood pressure was in the high 80s/low 90s systolic although her initial triage blood pressure was 120/85. Prior to half of the albumin infusion going in, her blood pressure is improved to 99/53. She is subjectively and objectively feeling better. Discussed this case with nephrology, my concern is that she has proteinuria that is giving her hypoalbuminemia, which is causing her edema. Nephrology agreed with the albumin 25 g, advised that she finish that and a liter of LR, and if her blood pressure is stable, she may be safely discharged home to follow-up closely as an outpatient. He took down some information of hers. When I went to reevaluate the patient, she had a slight amount of albumin left, maybe 1/10 of the bottle, when her IV blew. She is a very difficult stick and required a central line the last time she was here. Nurses were amenable to trying again to see if they can get another line, so that they could also administer the lactated Ringer's. At this point, the patient's blood pressure is 120/79. I went in to talk with her about all of this. She became extremely upset, and said she wanted all of the stuff taken off of her so that she could leave I am tired of this hospital and your BS. I explained to the patient that certainly she must be going through some hard times and we were doing this to help her, she wants to stay in the hospital and continues asking for narcotic pain medications, which were given to her twice, and as I described to her, she does not have any medical indications to stay in the hospital right now according to nephrology since her blood pressure has recovered and is doing well. She does need to follow-up closely, as I reminded her as she demanded to be discharged. Lab Data Attestation: I reviewed the patient's lab results. Labs: Laboratory Results - last 24 hr 05/06/21 05/06/21 05/06/21 20:35 20:35 20:35 WBC 8.3 RBC 3.07 L Hgb 10.3 L Hct 30.1 L MCV 98.0 MCH 33.6 H MCHC 34.2 RDW Std Deviation 46.8 H RDW Coeff of Whitney 13.2 Plt Count 315 MPV 9.0 Immature Gran % (Auto) 1.100 H Neut % (Auto) 55.7 Lymph % (Auto) 30.3 Frontier % (Auto) 11.0 H Eos % (Auto) 1.5 Baso % (Auto) 0.4 Absolute Neuts (auto) 4.6 Absolute Lymphs (auto) 2.50 Nucleated RBC % 0 Platelet Estimate ADEQUATE RBC Morphology N CHROM Anisocytosis 1+ Macrocytosis 1+ Sodium 139 Potassium 3.4 L Chloride 107 Carbon Dioxide 26.0 Anion Gap 6 BUN 10 Creatinine 0.63 Estim Creat Clear Calc 91.32 Est GFR (MDRD) Af Amer 131 Est GFR (MDRD) Non-Af 108 BUN/Creatinine Ratio 16.0 Glucose 205 H Calcium 8.0 L Total Bilirubin 0.30 AST 23 ALT 25 Alkaline Phosphatase 232 H Lactate Dehydrogenase Total Protein 5.6 L Albumin 1.4 L Globulin 4.2 Albumin/Globulin Ratio 0.3 L Urine Color Urine Clarity Urine pH Ur Specific [place] Urine Protein Urine Glucose (UA) Urine Ketones Urine Occult Blood Urine Nitrite Urine Bilirubin Urine Urobilinogen Ur Leukocyte Esterase Urine RBC Urine WBC Ur Squamous Epith Cells Urine Bacteria Urine Mucus Blood Type O NEGATIVE Antibody Screen NEGATIVE 05/06/21 05/06/21 20:35 22:55 WBC RBC Hgb Hct MCV MCH MCHC RDW Std Deviation RDW Coeff of Whitney Plt Count MPV Immature Gran % (Auto) Neut % (Auto) Lymph % (Auto) Frontier % (Auto) Eos % (Auto) Baso % (Auto) Absolute Neuts (auto) Absolute Lymphs (auto) Nucleated RBC % Platelet Estimate RBC Morphology Anisocytosis Macrocytosis Sodium Potassium Chloride Carbon Dioxide Anion Gap BUN Creatinine Estim Creat Clear Calc Est GFR (MDRD) Af Amer Est GFR (MDRD) Non-Af BUN/Creatinine Ratio Glucose Calcium Total Bilirubin AST ALT Alkaline Phosphatase Lactate Dehydrogenase 123 Total Protein Albumin Globulin Albumin/Globulin Ratio Urine Color Yellow Urine Clarity Sl. Cloudy Urine pH 5.0 Ur Specific [place] 1.025 Urine Protein 30 H Urine Glucose (UA) 50 H Urine Ketones 5 H Urine Occult Blood 10 H Urine Nitrite Negative Urine Bilirubin 1 H Urine Urobilinogen 4 H Ur Leukocyte Esterase 25 H Urine RBC 0-5 SEEN Urine WBC 0-5 SEEN Ur Squamous Epith Cells 5-10 SEEN Urine Bacteria 2+ Urine Mucus 3+ Blood Type Antibody Screen Radiography Diagnostic Testing: Clinical Impression(s) from Imaging Studies Chest X-Ray 05/06/21 20:26 IMPRESSION: No acute radiographic abnormalities. Electronically Signed: Marlo Ge MD at 21:39 EDT Tel , Service support , EKG Initial EKG: Attestation: I personally reviewed and interpreted this EKG as follows: Interpretation: Sinus Rhythm and No Acute Injury Pattern Discharge Plan Triage Chief Complaint: Edema ED Provider: Francisco Jackson Dx/Rx/DC Orders Clinical Impression: Edema due to hypoalbuminemia, Salmonella dysentery, Proteinuria, Transient hypotension Instructions: ED Proteinuria Prescriptions: No Action albuterol sulfate 1 INHALER inhaler 1 - 2 puff inhalation Q4H PRN PRN (Reason: Wheezing) Qty: 1 RF: 0 budesonide-formoterol 160-4.5MCG inhaler 2 puff PO BID RF: 0 insulin regular human 100 UNIT/ML solution 26 units subcut TIDCM RF: 0 cyclobenzaprine 10 MG tablet 5 mg PO TID PRN PRN (Reason: Muscle Spasm) RF: 0 trazodone 50 MG tablet 50 mg PO QHS PRN PRN (Reason: Sleep) RF: 0 bupropion HCl 300 MG tablet extended release 24 hr 300 mg PO DAILY RF: 0 bupropion HCl 150 MG tablet extended release 24 hr 150 mg PO DAILY RF: 0 insulin NPH isoph U-100 human 100 UNITS/ML insulin pen 32 units SC BIDAC RF: 0 hydrocodone-acetaminophen 1 TABLET tablet 1 tab PO Q6H PRN PRN (Reason: Pain) 3 Days Qty: 10 RF: 0 carvedilol 12.5 mg Tablet 12.5 mg PO BID Qty: 0 RF: 0 metoclopramide HCl [Reglan] 5 mg tablet 5 mg PO TID PRN PRN (Reason: nausea/vomiting) Qty: 10 RF: 0 lorazepam 1 mg tablet 0.5 - 1 mg PO DAILY PRN (Reason: Anxiety) RF: 0 ondansetron HCl [Zofran] 4 mg tablet 4 mg PO Q8H PRN (Reason: nausea and vomiting) Qty: 10 RF: 0 colestipol 1 gram tablet 2 g PO DAILY Qty: 60 RF: 0 mirtazapine [Remeron SolTab] 15 mg Tablet,Disintegrating 15 mg PO QHS RF: 0 loperamide 2 mg capsule 4 mg PO Q6H PRN (Reason: loose stool) Qty: 15 RF: 0 dicyclomine 20 mg tablet 20 mg PO TID PRN PRN (Reason: cramps) Qty: 15 RF: 0 ticagrelor 90 mg tablet 90 mg PO BID Qty: 60 RF: 11 aspirin 81 mg tablet,delayed release (DR/EC) 81 mg PO DAILY@0800 Qty: 30 RF: 11 atorvastatin 80 mg tablet 80 mg PO QHS Qty: 30 RF: 11 hydralazine 50 mg tablet 50 mg PO BID Qty: 90 RF: 11 lisinopril 40 mg tablet 40 mg PO DAILY Qty: 30 RF: 11 pantoprazole 40 mg tablet,delayed release (DR/EC) 40 mg PO DAILY Qty: 30 RF: 11 levothyroxine 200 mcg tablet 200 mcg PO DAILY Qty: 30 RF: 11 levothyroxine 25 mcg tablet 25 mcg PO DAILY Qty: 30 RF: 11 Primary Care Provider: Carlotta Galindo Referrals: Carlotta Galindo MD [Primary Care Provider] - Miguel Ma MD [STAFF PHYSICIAN] - As soon as possible (call for appt) Disposition Disposition: Home, Self Care
--- NOTE | 2021-05-06 20:26 | RAD_ITS ---
INDICATION: dyspnea w/ exertion EXAMINATION/TECHNIQUE: X-RAY - XR Chest 2 Views COMPARISON: 04/17/2021. FINDINGS: The lungs are clear. The cardiomediastinal silhouette is unremarkable. No pleural effusion or pneumothorax. No acute osseous abnormalities. RAD/Chest PA and Lateral IMPRESSION: No acute radiographic abnormalities. Electronically Signed: Malro Ge MD at 21:39 EDT Tel , Service support ,
[2021-05-06 20:49] LABS: Absolute Neutrophil Count 4.6 X10^3/uL (2.0-7.7); Basophil# 0.03 X10^3/uL; Basophil% 0.4 % (0-1); Eosinophil# 0.12 X10^3/uL; Eosinophils% 1.5 % (0-5); Hematocrit 30.1 % (37-47); Hemoglobin 10.3 g/dL (12.0-15.0); Lymphocyte % 30.3 % (19-41); Mean Corp Hgb Conc 34.2 g/dL (32-36); Mean Corpuscular Hgb 33.6 pg (27.0-32.0); Monocyte# 0.91 X10^3/uL; NRBC Flagged by Analyzer 0 % (0-5); Neutrophil # 4.61 X10^3/uL (2.7-7.7); Neutrophil % 55.7 % (47-70); POSITIVE MORPHOLOGY YES; Platelet Count 315 K/mm3 (150-450); RBC Distribution Width CV 13.2 % (11.6-14.6); RBC Distribution Width SD 46.8 fl (35.1-43.9); Red Blood Count 3.07 M/mm3 (4.2-5.4); White Blood Count 8.3 K/mm3 (4.4-11.0)
[2021-05-06 21:00] VITALS: BP 103/74; PULSE 99; RESP 15; O2SAT 99
[2021-05-06 21:01] LABS: Differential Indicated SCAN CRITERIA MET
[2021-05-06] MEDS: Dicyclomine 10 MG Capsule 20 MG PO (21:06)
[2021-05-06] MEDS: LORazepam 1 MG Tablet PO (21:06)
[2021-05-06] MEDS: HYDROcodone Bitartrate/Apap 5/325 Tablet PO (21:07)
[2021-05-06 21:08] VITALS: BP 100/74; PULSE 100; RESP 20; O2SAT 99
[2021-05-06 21:11] LABS: ALB/GLOB Ratio 0.3 RATIO (0.9-2.4); AST(SGOT) 23 U/L (15-37); Alanine Aminotransfer ALT/SGPT 25 U/L (13-56); Albumin, Serum 1.4 g/dL (3.2-5.0); Alkaline Phosphatase 232 U/L (45-117); Anion Gap 6 (5-15); BUN 10 mg/dL (7-18); Chloride 107 mmol/L (98-107); Creatinine, Serum 0.63 mg/dL (0.55-1.02); EST Glomerular Filtration Rate 108 mL/min (>60); Est Glom Filt Rate - Afr Amer 131 mL/min (>60); Estimated Creatinine Clearance 91.32 ml/min; Globulin 4.2 g/dL (2.2-4.2); Glucose 205 mg/dL (74-106); Potassium 3.4 mmol/L (3.5-5.1); Protein, Total 5.6 g/dL (6.4-8.2); Sodium Level 139 mmol/L (136-145)
[2021-05-06 21:12] LABS: Platelet Estimate ADEQUATE (ADEQ)
[2021-05-06 21:13] LABS: Anisocytosis 1+; Macrocytosis 1+; Red Cell Morphology N CHROM NORMAL (NORM C&C)
[2021-05-06 22:41] LABS: LDH 123 U/L (84-246)
[2021-05-06 23:14] LABS: Color, Urine Yellow (Yellow); Glucose, Dipstick 50 mg/dl (Normal); Ketone-Dipstick 5 mg/dl (Negative); Leukocyte Esterase-Dipstick 25 /ul (Negative); Nitrite-Dipstick Negative (Negative); Occult Blood-Urine 10 /ul (Negative); Protein-Dipstick 30 mg/dl (Negative); Specific Gravity, Urine 1.025 (1.002-1.030); Urine Clarity Sl. Cloudy (Clear); Urine Urobilinogen 4 mg/dl (Normal)
[2021-05-06] MEDS: oxyCODONE 5 MG Tablet PO (23:15)
[2021-05-06 23:17] VITALS: BP 87/67; PULSE 98; RESP 16; O2SAT 97
[2021-05-06 23:49] LABS: Urine Bilirubin Dipstick 1 mg/dL (Negative)
[2021-05-06 23:50] LABS: Bacteria 2+ /hpf (None Seen); Mucous, Urine 3+ /hpf (<or=2+); Red Blood Cells-Urine 0-5 SEEN /hpf (0-5); Squamous Epithelial Cells - UA 5-10 SEEN /hpf (5-10); White Blood Cells 0-5 SEEN /hpf (0-5)
[2021-05-07] MEDS: Albumin Human 25% (100 mL) 25 GM/100 ML BAG IV (00:03)
[2021-05-07 00:51] VITALS: BP 99/53; PULSE 101; RESP 18; O2SAT 99
[2021-05-07 01:33] VITALS: BP 120/79; PULSE 102; RESP 18; O2SAT 99
[2021-05-08 13:23] LABS: Haptoglobin 428 mg/dL (42-296)
== END 2021-05-07 01:52 | disposition home or self-care (01) ==
PROVIDERS: Emergency Provider Emergency Medicine; PCP Internal Medicine
DX: E88.09 Other disorders of plasma-protein metabolism, not elsewhere classified (principal); A02.0 Salmonella enteritis; I95.89 Other hypotension; R80.9 Proteinuria, unspecified; I25.10 Atherosclerotic heart disease of native coronary artery without angina pectoris; I11.0 Hypertensive heart disease with heart failure; I50.9 Heart failure, unspecified; I25.2 Old myocardial infarction; J44.9 Chronic obstructive pulmonary disease, unspecified; E78.00 Pure hypercholesterolemia, unspecified; E11.9 Type 2 diabetes mellitus without complications; K21.9 Gastro-esophageal reflux disease without esophagitis; E03.9 Hypothyroidism, unspecified; G47.33 Obstructive sleep apnea (adult) (pediatric); E66.01 Morbid (severe) obesity due to excess calories; F32.A Depression, unspecified; F41.9 Anxiety disorder, unspecified; F17.210 Nicotine dependence, cigarettes, uncomplicated; Z68.43 Body mass index [BMI] 50.0-59.9, adult; Z79.4 Long term (current) use of insulin; Z79.82 Long term (current) use of aspirin; Z79.899 Other long term (current) drug therapy
CPT/HCPCS: 71046; 80053; 81001; 83010; 83615; 85025; 86850; 86900; 86901; 93005; 96365; 96366; 99283; J7050; P9047; A4216

== ENCOUNTER 2021-07-18 12:58 | Outpatient (CLI) | payer MEDICARE, MEDICAID, SELFPAY ==
[2019-05-06 13:18] VITALS: BMI 56.7
[2021-07-18 13:13] VITALS: BP 142/95; PULSE 98; RESP 16; TEMP 36.6; O2SAT 100; BMI 51.2
[2021-07-18] MEDS: 0.9% Saline Lock 10 ML Syringe IV (13:28)
[2021-07-18 13:58] VITALS: BP 121/79; PULSE 89; RESP 16; TEMP 36.6; O2SAT 100
[2021-07-18 14:44] VITALS: BP 151/91; PULSE 85; RESP 16; TEMP 36.7; O2SAT 97
== END 2021-07-18 23:59 | disposition home or self-care (01) ==
LOC: MS3OUT 12:59 → MS3 12:59
PROVIDERS: PCP Internal Medicine; Referring Provider Nurse Practitioner Adult Health; Visit Provider Nurse Practitioner Adult Health
DX: Z23 Encounter for immunization (principal); E11.9 Type 2 diabetes mellitus without complications; U07.1 COVID-19
CPT/HCPCS: J7050; M0245; Q0245; A4216

== ENCOUNTER 2021-07-21 15:44 | Emergency (ER) | payer MEDICARE, MEDICAID, SELFPAY ==
[2019-05-06 13:18] VITALS: BMI 56.7
[2021-07-21 15:45] VITALS: BP 156/96; PULSE 102; RESP 20; TEMP 36.6; O2SAT 100; BMI 54.9
--- NOTE | 2021-07-21 16:32 | EKG12_ITS ---
Test Reason : CP Blood Pressure : / mmHG Vent. Rate : 101 BPM Atrial Rate : 101 BPM P-R Int : 164 ms QRS Dur : 082 ms QT Int : 358 ms P-R-T Axes : 041 -06 013 degrees QTc Int : 464 ms Sinus tachycardia Inferior infarct , age undetermined Abnormal ECG Confirmed by KEIKO SILVA, REHAN ([id number]), newspaper or periodical editor ODALYS PHILIPPE ([id number]) on 07/22/2021 1:09:43 PM Referred By: NELY Confirmed By:REHAN ADEN MD
--- NOTE | 2021-07-21 16:33 | CT_ITS ---
INDICATION: Chest pain EXAMINATION: CTA Chest WO/W Contrast Injection TECHNIQUE: Helically acquired images were obtained of the chest following administration of IV contrast. A radiation dose optimization technique was used for this scan. 3D postprocessing images including MIPS were reviewed. IV Contrast dosage and agent: IV 100mL [id number] COMPARISON: None. FINDINGS: Lungs: Scattered groundglass opacities, most prevalent in the lung bases. 1 cm calcified granuloma in the right upper lobe. Mediastinum: The cardiomediastinal silhouette is not enlarged. No mediastinal, hilar or axillary adenopathy. Mild aortic arch and coronary artery calcifications. No obvious filling defect seen within the visualized pulmonary arteries. Pleura: Unremarkable Bones/Soft tissues: Mild scattered degenerative changes of the visualized spine. Upper abdomen: No visualized abnormalities in the upper abdomen. CT/CTA Chest W/WO Contrast IMPRESSION: Suboptimal examination for evaluation of pulmonary emboli due to inadequate opacification of the pulmonary arteries. Despite limitations: No acute pulmonary emboli to segmental level. Scattered groundglass opacities, most prevalent in the lung bases consistent with Covid pneumonia. Electronically Signed: Marlo Ge MD at 19:03 EST Tel , Service support ,
--- NOTE | 2021-07-21 16:35 | EDS_ITS ---
HPI History of Present Illness Chief Complaint: Shortness of Breath Informant: patient Onset/Context/Timing Onset: Weeks (1) Context: Gradual Onset Timing: Continuous Quality: Tightness Location: Chest Worsened by: Exertion Relieved by: Rest Narrative Narrative: Patient presents with chest tightness that has been getting worse over the past week. Patient was recently diagnosed with COVID-19. Patient had monoclonal antibody infusion 3 days ago. Patient states she feels tightness in her chest. Patient states it is worse with any exertion and better with rest. Patient admits to some shortness of breath. Patient denies any cough. Patient admits to to some aching in her arms as well. Patient denies any fevers or chills. Patient denies any nausea or vomiting. PFSH PFSH Medical History Abdominal pain Asthma Atherosclerotic heart disease of [place] coronary artery without angina pectoris Blood disorder CHF (congestive heart failure) Chronic obstructive pulmonary disease Chronic pain Current use of insulin Depression Diabetes Diabetes mellitus, type II Dyspnea Essential hypertension Failure of outpatient treatment GERD (gastroesophageal reflux disease) Heart attack High cholesterol History of anxiety History of stress test HTN (hypertension) Hypercholesterolemia Hypothyroidism Irregular heartbeat Morbid obesity with BMI of 50.0-59.9, adult Nicotine dependence GEOVANI (obstructive sleep apnea) Sleep apnea Sleep-disordered breathing Smoker Home Medications albuterol sulfate 1 - 2 puff INHALATION Q4H PRN PRN #1 inhaler 10/15/15 [Rx Last Taken 10/19/20] budesonide-formoterol 2 puff PO BID 05/07/19 [History Last Taken 10/20/20] insulin regular human 26 units SUBCUT TIDCM 05/07/19 [History Last Taken 10/20/20] cyclobenzaprine 5 mg PO TID PRN PRN 07/19/19 [History Last Taken 10/13/20] trazodone 50 mg PO QHS PRN PRN 07/19/19 [History Last Taken 04/16/21 50] bupropion HCl 150 mg PO DAILY 09/25/20 [History Last Taken 10/20/20] bupropion HCl 300 mg PO DAILY 09/25/20 [History Last Taken 10/20/20] aspirin 81 mg tablet,delayed release 81 mg PO DAILY@0800 #30 tablet 11/07/20 [Rx Last Taken Unknown] atorvastatin 80 mg tablet 80 mg PO QHS #30 tab 11/07/20 [Rx Last Taken Unknown] hydralazine 50 mg tablet 50 mg PO BID #90 tab 11/07/20 [Rx Last Taken Unknown] levothyroxine 200 mcg tablet 200 mcg PO DAILY #30 tab 11/07/20 [Rx Last Taken Unknown] levothyroxine 25 mcg tablet 25 mcg PO DAILY #30 tab 11/07/20 [Rx Last Taken Unknown] lisinopril 40 mg tablet 40 mg PO DAILY #30 tab 11/07/20 [Rx Last Taken Unknown] pantoprazole 40 mg tablet,delayed release 40 mg PO DAILY #30 tab 11/07/20 [Rx Last Taken Unknown] ticagrelor 90 mg tablet 90 mg PO BID #60 tablet 11/07/20 [Rx Last Taken Unknown] hydrocodone-acetaminophen 1 tab PO Q6H PRN PRN 3 Days #10 tablet 04/06/21 [Rx Last Taken Unknown] insulin NPH isoph U-100 human 32 units SC BIDAC 04/06/21 [History Last Taken Unknown] carvedilol 12.5 mg PO BID #0 tab 04/20/21 [Rx Last Taken Unknown] metoclopramide HCl [Reglan] 5 mg PO TID PRN PRN #10 tab 04/20/21 [Rx Last Taken Unknown] lorazepam 0.5 - 1 mg PO DAILY PRN 04/24/21 [History Last Taken Unknown] colestipol 2 g PO DAILY #60 tab 04/26/21 [Rx Last Taken Unknown] ondansetron HCl [Zofran] 4 mg PO Q8H PRN #10 tab 04/26/21 [Rx Last Taken Unknown] mirtazapine [Remeron SolTab] 15 mg PO QHS 05/02/21 [History Last Taken Unknown] dicyclomine 20 mg tablet 20 mg PO TID PRN PRN #21 tab 05/10/21 [Rx Last Taken Unknown] loperamide 2 mg capsule 4 mg PO Q6H PRN #30 cap 05/10/21 [Rx Last Taken Unknown] Allergy/AdvReac Type Severity Reaction Status Date / Time metformin [From Glucophage] AdvReac Intermediate Diarrhea Verified 07/21/21 15:47 hydromorphone [From Dilaudid] AdvReac Itching Verified 07/21/21 15:47 morphine AdvReac Itching Verified 07/21/21 15:47 Family History Mother Cancer lung Father Hypertension COPD (chronic obstructive pulmonary disease) Daughter Factor V deficiency Grandmother Cancer lung COPD (chronic obstructive pulmonary disease) Surgical History H/O cardiac catheterization History of back surgery History of delivery History of cholecystectomy History of coronary artery stent placement (09/26/20) History of dilatation and curettage History of left heart catheterization (10/08/20) History of percutaneous transluminal coronary angioplasty (~10/20/20) History of tonsillectomy and adenoidectomy History of tubal ligation S/P tubal ligation Social History household members: none Smoking Status: Current every day smoker tobacco type: cigarettes alcohol intake: current alcohol intake frequency: holidays/special occasions only substance use type: does not use caffeine: Yes ROS ROS ED Constitutional Constitutional ED: Denies chills or fever(s) Eyes Eyes: Denies blurry vision or change in vision ENT ENT ED: Reports rhinorrhea; Denies sore throat Cardiovascular Cardiovascular: Reports chest pain; Denies palpitations Respiratory/Chest Respiratory/Chest: Reports dyspnea; Denies cough Gastrointestinal Gastrointestinal: Denies nausea or vomiting Genitourinary Genitourinary ED: Denies dysuria or hematuria Musculoskeletal Musculoskeletal: Reports back pain and myalgias; Denies neck pain Integumentary Denies abscess or rash Neurologic Neurologic: Denies headache(s) or weakness Allergic/Immunologic Allergic/Immunologic ED: Denies mouth swelling or urticaria EXAM Physical Exam Const Vital Signs: 07/21/21 15:45 07/21/21 16:53 07/21/21 16:54 Temperature 97.9 F Temperature Source Temporal Pulse Rate 102 H 102 H Respiratory Rate 20 H 15 Respiratory Effort Normal Non-Labored Respiratory Depth Normal Respiratory Pattern Normal Blood Pressure 156/96 H 147/89 H Blood Pressure Mean 116 108 Pulse Ox 100 96 Oxygen Delivery Method Room Air Room Air Room Air 07/21/21 18:41 07/21/21 19:41 Temperature Temperature Source Pulse Rate 105 H 110 H Respiratory Rate 12 18 Respiratory Effort Respiratory Depth Respiratory Pattern Blood Pressure 137/73 H 125/78 H Blood Pressure Mean 94 93 Pulse Ox 98 99 Oxygen Delivery Method Room Air Room Air Positive well nourished, well developed and obese General Appearance ED: well developed Nutritional Appearance: obese HEENT Reports moist mucous membranes Neck supple and no JVD Resp normal respiratory effort and clear to auscultation bilaterally Cardio regular rate, regular rhythm and no murmurs GI normal to inspection, nondistended, normoactive bowel sounds and non-tender Palpation: soft Extremity normal to inspection General Extremety ED: Negative for edema or tenderness General Extremity: Negative for edema Neuro oriented x3, CN's II-XII intact bilaterally and no sensory deficits noted Sensorium / Orientation: alert Motor Exam: strength 5/5 throughout Psych mental status grossly normal Skin no rashes or lesions noted MDM MDM MDM Narrative Medical decision making narrative: Patient was given a dose of [place] here. EKG was obtained. On my interpretation, it showed a normal sinus rhythm with a rate of 101. TN interval, QRS interval, and QTc intervals were all normal. [place] was normal. There are no acute ST or T wave changes. CBC was within normal limits. Basic metabolic profile was normal with the exception of an elevated glucose of 371. Anion gap was normal. CO2 was normal. Initial high-sensitivity troponin was normal at 7. 2-hour repeat high-sensitivity troponin was normal at 8. Portable 1 view chest x-ray was obtained. On my interpretation, lung villareal are clear. There is normal cardiac silhouette. Bony thorax is normal. There is no acute process noted. Radiologist also interpreted the x-ray and agrees. CTA of the chest was obtained. There is no evidence of pulmonary embolism. There are some groundglass opacities consistent with COVID-19 pneumonitis. This was interpreted by the radiologist and reviewed by myself. Patient was advised of her findings. Patient has a HEART score of 3. Patient was advised that this is a low risk for acute cardiac event. Patient was instructed to follow-up with her primary care physician in 3 to 5 days. Patient was instructed return if worse in any way. Patient understood and was agreeable with the plan. All questions were answered. Lab Data Attestation: I reviewed the patient's lab results. Labs: Laboratory Results - last 24 hr 07/21/21 07/21/21 07/21/21 17:05 17:05 19:00 WBC 7.3 RBC 4.19 L Hgb 12.8 Hct 38.7 MCV 92.4 MCH 30.5 MCHC 33.1 RDW Std Deviation 44.8 H RDW Coeff of Whitney 13.2 Plt Count 224 MPV 10.4 Immature Gran % (Auto) 0.400 Neut % (Auto) 38.9 L Lymph % (Auto) 48.5 H [place] % (Auto) 9.5 Eos % (Auto) 2.3 Baso % (Auto) 0.4 Absolute Neuts (auto) 2.9 Absolute Lymphs (auto) 3.56 Nucleated RBC % 0 Sodium 136 Potassium 3.9 Chloride 101 Carbon Dioxide 22.0 Anion Gap 13 BUN 10 Creatinine 0.69 Estim Creat Clear Calc 87.04 Est GFR (MDRD) Af Amer 116 Est GFR (MDRD) Non-Af 96 BUN/Creatinine Ratio 14.4 Glucose 371 H Calcium 8.6 Troponin I High Sens 7 8 Radiography Chest X-Ray - ED: 1 View, Read by ED Physician, Read by Radiologist and Normal Diagnostic Testing: Clinical Impression(s) from Imaging Studies Chest CTA 07/21/21 16:33 IMPRESSION: Suboptimal examination for evaluation of pulmonary emboli due to inadequate opacification of the pulmonary arteries. Despite limitations: No acute pulmonary emboli to segmental level. Scattered groundglass opacities, most prevalent in the lung bases consistent with Covid pneumonia. Electronically Signed: Marlo Ge MD at 19:03 EST Tel , Service support , Chest X-Ray 07/21/21 18:10 IMPRESSION: No acute cardiopulmonary process. Electronically Signed: Johny Mishra MD at 18:32 EST Tel , Service support , EKG Initial EKG: Attestation: I personally reviewed and interpreted this EKG as follows: Interpretation: Sinus Rhythm (101) and No Acute Injury Pattern Prior EKG tracings: available for review Prior: Unchanged (05/06/2021) Discharge Plan Triage Chief Complaint: Shortness of Breath ED Provider: Abrahan Ojeda Dx/Rx/DC Orders Clinical Impression: Chest pain, COVID-19 Instructions: Coronavirus Disease 2019 (COVID-19): Overview, ED Chest Pain, Uncertain Cause Prescriptions: No Action albuterol sulfate 1 INHALER inhaler 1 - 2 puff inhalation Q4H PRN PRN (Reason: Wheezing) Qty: 1 RF: 0 budesonide-formoterol 160-4.5MCG inhaler 2 puff PO BID RF: 0 insulin regular human 100 UNIT/ML solution 26 units subcut TIDCM RF: 0 cyclobenzaprine 10 MG tablet 5 mg PO TID PRN PRN (Reason: Muscle Spasm) RF: 0 trazodone 50 MG tablet 50 mg PO QHS PRN PRN (Reason: Sleep) RF: 0 bupropion HCl 300 MG tablet extended release 24 hr 300 mg PO DAILY RF: 0 bupropion HCl 150 MG tablet extended release 24 hr 150 mg PO DAILY RF: 0 insulin NPH isoph U-100 human 100 UNITS/ML insulin pen 32 units SC BIDAC RF: 0 hydrocodone-acetaminophen 1 TABLET tablet 1 tab PO Q6H PRN PRN (Reason: Pain) 3 Days Qty: 10 RF: 0 carvedilol 12.5 mg Tablet 12.5 mg PO BID Qty: 0 RF: 0 metoclopramide HCl [Reglan] 5 mg tablet 5 mg PO TID PRN PRN (Reason: nausea/vomiting) Qty: 10 RF: 0 lorazepam 1 mg tablet 0.5 - 1 mg PO DAILY PRN (Reason: Anxiety) RF: 0 ondansetron HCl [Zofran] 4 mg tablet 4 mg PO Q8H PRN (Reason: nausea and vomiting) Qty: 10 RF: 0 colestipol 1 gram tablet 2 g PO DAILY Qty: 60 RF: 0 mirtazapine [Remeron SolTab] 15 mg Tablet,Disintegrating 15 mg PO QHS RF: 0 ticagrelor 90 mg tablet 90 mg PO BID Qty: 60 RF: 11 aspirin 81 mg tablet,delayed release (DR/EC) 81 mg PO DAILY@0800 Qty: 30 RF: 11 atorvastatin 80 mg tablet 80 mg PO QHS Qty: 30 RF: 11 hydralazine 50 mg tablet 50 mg PO BID Qty: 90 RF: 11 lisinopril 40 mg tablet 40 mg PO DAILY Qty: 30 RF: 11 pantoprazole 40 mg tablet,delayed release (DR/EC) 40 mg PO DAILY Qty: 30 RF: 11 levothyroxine 200 mcg tablet 200 mcg PO DAILY Qty: 30 RF: 11 levothyroxine 25 mcg tablet 25 mcg PO DAILY Qty: 30 RF: 11 dicyclomine 20 mg tablet 20 mg PO TID PRN PRN (Reason: cramps) Qty: 21 RF: 0 loperamide 2 mg capsule 4 mg PO Q6H PRN (Reason: loose stool) Qty: 30 RF: 0 Primary Care Provider: Carlotta Galindo Referrals: Carlotta Galindo MD [Primary Care Provider] - 3-5 Days Disposition Disposition: Home, Self Care
[2021-07-21 16:53] VITALS: BP 147/89; PULSE 102; RESP 15; O2SAT 96
[2021-07-21 16:54] VITALS: O2SAT 98
[2021-07-21] MEDS: Aspirin 81 MG TAB.CHEW 324 MG PO (16:55)
[2021-07-21] MEDS: HYDROcodone Bitartrate/Apap 5/325 Tablet PO ×2 (16:55→19:40)
[2021-07-21] MEDS: Ondansetron 4 MG/2 ML Vial IV ×2 (17:04→18:12)
[2021-07-21 17:18] LABS: Absolute Lymphocyte Count 3.56 X10^3/uL (0.83-4.51); Absolute Neutrophil Count 2.9 X10^3/uL (2.0-7.7); Basophil# 0.03 X10^3/uL; Basophil% 0.4 % (0-1); Eosinophil# 0.17 X10^3/uL; Eosinophils% 2.3 % (0-5); Hematocrit 38.7 % (37-47); Hemoglobin 12.8 g/dL (12.0-15.0); Lymphocyte # 3.56 X10^3/ul (0.83-4.51); Lymphocyte % 48.5 % (19-41); Mean Corp Hgb Conc 33.1 g/dL (32-36); Mean Corpuscular Hgb 30.5 pg (27.0-32.0); Mean Corpuscular Volume 92.4 fL (81-99); Mean Platelet Vol. 10.4 fl (6.2-12.0); Monocyte% 9.5 % (0-10); NRBC Flagged by Analyzer 0 % (0-5); Neutrophil # 2.85 X10^3/uL (2.7-7.7); Neutrophil % 38.9 % (47-70); Platelet Count 224 K/mm3 (150-450); RBC Distribution Width CV 13.2 % (11.6-14.6); RBC Distribution Width SD 44.8 fl (35.1-43.9); Red Blood Count 4.19 M/mm3 (4.2-5.4); White Blood Count 7.3 K/mm3 (4.4-11.0)
[2021-07-21 17:37] LABS: Anion Gap 13 (5-15); BUN 10 mg/dL (7-18); BUN/Creat Ratio 14.4 RATIO (10-20); Calcium,Total 8.6 mg/dL (8.5-10.1); Chloride 101 mmol/L (98-107); Creatinine, Serum 0.69 mg/dL (0.55-1.02); EST Glomerular Filtration Rate 96 mL/min (>60); Est Glom Filt Rate - Afr Amer 116 mL/min (>60); Estimated Creatinine Clearance 87.04 ml/min; Glucose 371 mg/dL (74-106); Potassium 3.9 mmol/L (3.5-5.1); Sodium Level 136 mmol/L (136-145); Troponin-I HS 7 pg/mL (3.0-54.0)
--- NOTE | 2021-07-21 18:10 | RAD_ITS ---
STUDY: X-RAY CHEST REASON FOR EXAM: Female, 45 years old. chest pain TECHNIQUE: 1 view COMPARISON: 05/06/2021 Correlation: CT scan dated 10/08/2020 FINDINGS: Cardiomediastinal silhouette is unremarkable. Costophrenic angles are sharp. A stable 0.9 cm nodule/granuloma is noted in the superior segment of the right lower lobe. Lungs are otherwise clear. The trachea is midline. There is no pneumothorax. The bones are grossly intact. RAD/Chest 1 View (Portable) IMPRESSION: No acute cardiopulmonary process. Electronically Signed: Johny Mishra MD at 18:32 EST Tel , Service support ,
[2021-07-21 18:41] VITALS: BP 137/73; PULSE 105; RESP 12; O2SAT 98
[2021-07-21 19:33] LABS: Troponin-I HS 8 pg/mL (3.0-54.0)
[2021-07-21 19:41] VITALS: BP 125/78; PULSE 110; RESP 18; O2SAT 99
== END 2021-07-21 20:30 | disposition home or self-care (01) ==
PROVIDERS: Emergency Provider Emergency Medicine; PCP Internal Medicine; Visit Provider Emergency Medicine
DX: U07.1 COVID-19 (principal); J44.9 Chronic obstructive pulmonary disease, unspecified; I11.0 Hypertensive heart disease with heart failure; I50.9 Heart failure, unspecified; E11.65 Type 2 diabetes mellitus with hyperglycemia; E66.01 Morbid (severe) obesity due to excess calories; Z68.43 Body mass index [BMI] 50.0-59.9, adult; Z79.4 Long term (current) use of insulin; F17.210 Nicotine dependence, cigarettes, uncomplicated; E78.00 Pure hypercholesterolemia, unspecified; I25.10 Atherosclerotic heart disease of native coronary artery without angina pectoris; F32.A Depression, unspecified; K21.9 Gastro-esophageal reflux disease without esophagitis; I25.2 Old myocardial infarction; F41.9 Anxiety disorder, unspecified; G47.33 Obstructive sleep apnea (adult) (pediatric); E03.9 Hypothyroidism, unspecified; Z79.82 Long term (current) use of aspirin; Z79.899 Other long term (current) drug therapy; Z95.5 Presence of coronary angioplasty implant and graft
CPT/HCPCS: 71045; 71275; 80048; 84484; 85025; 93005; 96374; 96376; 99284; Q9967; A4216; J2405

== ENCOUNTER 2021-09-12 16:07 | Emergency (ER) | payer MEDICARE, MEDICAID, SELFPAY ==
[2019-05-06 13:18] VITALS: BMI 56.7
[2021-09-12 16:09] VITALS: BP 168/109; PULSE 90; RESP 16; TEMP 36.1; O2SAT 99; BMI 49.2
--- NOTE | 2021-09-12 16:21 | ED.VIS.BACK ---
HPI <DALLIN Pickett - Last Filed: 09/12/21 16:50> History of Present Illness Chief Complaint: Back Narrative Narrative: 45-year-old female with PMH of HTN, HLD, DM2, CAD, GERD, chronic back pain presents with acute on chronic low back pain. She had a lumbar fusion and approximately 8 years ago. Since then her back pain occasionally flares up and became worse last night. No known injury or falls. She feels some relief when she leans to the left while she walks. She denies pain into her buttocks or lower extremities. No weakness, numbness, tingling, saddle anesthesia, or bladder or bowel incontinence. No dysuria or bowel changes. No fever or IVDU. She takes NSAIDs, muscle relaxers, and tramadol twice daily as needed and tried these with minimal relief. PFSH <DALLIN Pickett - Last Filed: 09/12/21 16:50> PFSH Medical History Abdominal pain Asthma Atherosclerotic heart disease of [place] coronary artery without angina pectoris Blood disorder CHF (congestive heart failure) Chronic obstructive pulmonary disease Chronic pain Current use of insulin Depression Diabetes Diabetes mellitus, type II Dyspnea Essential hypertension Failure of outpatient treatment GERD (gastroesophageal reflux disease) Heart attack High cholesterol History of anxiety History of stress test HTN (hypertension) Hypercholesterolemia Hypothyroidism Irregular heartbeat Morbid obesity with BMI of 50.0-59.9, adult Nicotine dependence GEOVANI (obstructive sleep apnea) Sleep apnea Sleep-disordered breathing Smoker Home Medications albuterol sulfate 1 - 2 puff INHALATION Q4H PRN PRN #1 inhaler 10/15/15 [Rx Last Taken 10/19/20] budesonide-formoterol 2 puff PO BID 05/07/19 [History Last Taken 10/20/20] insulin regular human 26 units SUBCUT TIDCM 05/07/19 [History Last Taken 10/20/20] cyclobenzaprine 5 mg PO TID PRN PRN 07/19/19 [History Last Taken 10/13/20] trazodone 50 mg PO QHS PRN PRN 07/19/19 [History Last Taken 04/16/21 50] bupropion HCl 150 mg PO DAILY 09/25/20 [History Last Taken 10/20/20] bupropion HCl 300 mg PO DAILY 09/25/20 [History Last Taken 10/20/20] aspirin 81 mg tablet,delayed release 81 mg PO DAILY@0800 #30 tablet 11/07/20 [Rx Last Taken Unknown] atorvastatin 80 mg tablet 80 mg PO QHS #30 tab 11/07/20 [Rx Last Taken Unknown] hydralazine 50 mg tablet 50 mg PO BID #90 tab 11/07/20 [Rx Last Taken Unknown] levothyroxine 200 mcg tablet 200 mcg PO DAILY #30 tab 11/07/20 [Rx Last Taken Unknown] levothyroxine 25 mcg tablet 25 mcg PO DAILY #30 tab 11/07/20 [Rx Last Taken Unknown] lisinopril 40 mg tablet 40 mg PO DAILY #30 tab 11/07/20 [Rx Last Taken Unknown] pantoprazole 40 mg tablet,delayed release 40 mg PO DAILY #30 tab 11/07/20 [Rx Last Taken Unknown] ticagrelor 90 mg tablet 90 mg PO BID #60 tablet 11/07/20 [Rx Last Taken Unknown] hydrocodone-acetaminophen 1 tab PO Q6H PRN PRN 3 Days #10 tablet 04/06/21 [Rx Last Taken Unknown] insulin NPH isoph U-100 human 32 units SC BIDAC 04/06/21 [History Last Taken Unknown] carvedilol 12.5 mg PO BID #0 tab 04/20/21 [Rx Last Taken Unknown] metoclopramide HCl [Reglan] 5 mg PO TID PRN PRN #10 tab 04/20/21 [Rx Last Taken Unknown] lorazepam 0.5 - 1 mg PO DAILY PRN 04/24/21 [History Last Taken Unknown] colestipol 2 g PO DAILY #60 tab 04/26/21 [Rx Last Taken Unknown] ondansetron HCl [Zofran] 4 mg PO Q8H PRN #10 tab 04/26/21 [Rx Last Taken Unknown] mirtazapine [Remeron SolTab] 15 mg PO QHS 05/02/21 [History Last Taken Unknown] dicyclomine 20 mg tablet 20 mg PO TID PRN PRN #21 tab 05/10/21 [Rx Last Taken Unknown] loperamide 2 mg capsule 4 mg PO Q6H PRN #30 cap 05/10/21 [Rx Last Taken Unknown] lidocaine 1 patch TOPICAL DAILY 7 Days #1 ea 09/12/21 [Rx Last Taken Unknown] oxycodone-acetaminophen [Percocet] 1 tab PO Q6H PRN 3 Days #12 tab 09/12/21 [Rx Last Taken Unknown] Allergy/AdvReac Type Severity Reaction Status Date / Time metformin [From Glucophage] AdvReac Intermediate Diarrhea Verified 09/12/21 16:08 hydromorphone [From Dilaudid] AdvReac Itching Verified 09/12/21 16:08 morphine AdvReac Itching Verified 09/12/21 16:08 Family History Mother Cancer lung Father Hypertension COPD (chronic obstructive pulmonary disease) Daughter Factor V deficiency Grandmother Cancer lung COPD (chronic obstructive pulmonary disease) Surgical History H/O cardiac catheterization History of back surgery History of delivery History of cholecystectomy History of coronary artery stent placement (09/26/20) History of dilatation and curettage History of left heart catheterization (10/08/20) History of percutaneous transluminal coronary angioplasty (~10/20/20) History of tonsillectomy and adenoidectomy History of tubal ligation S/P tubal ligation Social History household members: none Smoking Status: Current every day smoker tobacco type: cigarettes alcohol intake: current alcohol intake frequency: holidays/special occasions only substance use type: does not use caffeine: Yes ROS <DALLIN Pickett - Last Filed: 09/12/21 16:50> ROS ED ROS Narrative Constitutional: Negative for fever, chills, malaise. Eyes: Negative for visual change. ENT: Negative for sore throat, ear pain, rhinorrhea. CVS: Negative for palpitations, chest pain, syncope. Respiratory: Negative for shortness of breath, cough, orthopnea. GI: Negative for abdominal pain, nausea, vomiting, diarrhea, constipation, melena, hematochezia. : Negative for dysuria, hematuria or frequency. Neuro: Negative for headache, motor/sensory dysfunction. Skin: Negative for rash, abscess, or wound. Musc: Positive for back pain. Negative for joint pain, swelling, trauma. Heme: Negative for easy bruising, bleeding, lymphadenopathy. EXAM <Charlette Glauthier, PA - Last Filed: 09/12/21 16:50> Physical Exam Narrative Exam Narrative: CONST: Patient sitting in no acute distress. EYES: Normal inspection. NECK: Normal inspection. RESP: No respiratory distress, CTAB. CVS: Regular rate and rhythm, no murmur, no gallop. Back: Normal inspection, no midline spinal tenderness, no step off or crepitus. Tender palpation over left lumbar paraspinal muscles SKIN: Color normal, no rash, warm, dry, intact. EXTREMITIES: Normal appearance, no pedal edema. 5/5 strength in bilateral hip flexion, knee flexion/extension, and DF/PF. Normal sensation light touch. 2+ DP pulses. NEURO: Oriented x4. Normal gait observed down length of hallway. Able to walk on tiptoes and heels. Able to 1 legged squat bilaterally. PSYCH: Normal affect. Const Vital Signs: 09/12/21 16:09 Temperature 97 F L Temperature Source Temporal Pulse Rate 90 Respiratory Rate 16 Blood Pressure 168/109 H Blood Pressure Mean 128 Pulse Ox 99 Oxygen Delivery Method Room Air <Dr. Kennedy Mojica MD - Last Filed: 09/12/21 16:55> Physical Exam Const Vital Signs: 09/12/21 16:09 Temperature 97 F L Temperature Source Temporal Pulse Rate 90 Respiratory Rate 16 Blood Pressure 168/109 H Blood Pressure Mean 128 Pulse Ox 99 Oxygen Delivery Method Room Air MDM <DALLIN Pickett - Last Filed: 09/12/21 16:50> [facility] Narrative Medical decision making narrative: Patient with history of remote lumbar fusion presents with acute on chronic low back pain. She appears well nontoxic. Vital signs unremarkable. Her back appears normal and there is no reproducible midline spinal tenderness or step-offs. She is tender over the left lumbar paraspinal muscles. Lower extremity MSPs and reflexes are intact. She is able to walk on heels and toes and squat on both sides. She has no signs or symptoms concerning for cauda equina syndrome or epidural abscess. Lumbar x-rays will be obtained. ED attending interpretation of lumbar film shows that hardware is intact and there is no acute osseous abnormality. Patient was prescribed lidocaine patches and a short course of Percocet. She will follow-up with her doctor and was discharged in stable condition. #1 musculoskeletal low back pain <Dr. Kennedy Mojica MD - Last Filed: 09/12/21 16:55> [facility] Narrative Medical decision making narrative: Patient is a 45-year-old woman with history of back problems and prior fusion. She presents with exacerbation of her chronic back pain. She denies radicular pain. She denies foot drop. Denies buckling of her knees going up or down steps. She denies numbness or tingling in the perineal region. She denies urologic symptoms. There is no history of recent trauma. There is no history of recent procedure. She denies fever or chills. She denies night sweats. There is no history of medic fever, heart murmur, SBE or IV drug use. Patient is concerned because when she had pain similar to this there was problem with a screw that backed out and shifting of hardware. Patient appears uncomfortable. She has obvious discomfort rising from a sitting position. She is able to ambulate. There is no ataxic gait. There is no foot drop. Able to walk on heels and toes. Able to squat partially. She stopped because of pain in her low back. Straight leg test is negative. Patella and ankle reflex are 1+ and symmetric. EHLs intact. Sensation is normal over the lateral and medial aspect of the right and left foot. There is normal sensation along L3-4 dermatome in the thigh. DP pulse was palpable bilaterally. Will obtain x-ray to assess hardware and medicate patient. 2 view x-ray of the LS-spine reveals Hardware is in proper position. There is calcification of the abdominal aorta without dilation. Hardware to be in proper position with no acute abnormality noted. There is calcification aorta. Aorta is not dilated. There is no lytic or blastic lesions noted. Radiography X-Ray: - (LS-spine interpretation document by me under the MDM.) Discharge Plan Triage Chief Complaint: Back ED Provider: Charlette Moss Dx/Rx/DC Orders Clinical Impression: Low back pain Instructions: ED Back and Neck Pain, General Prescriptions: New lidocaine 5 % adhesive patch,medicated 1 patch topical DAILY 7 Days Qty: 1 RF: 0 oxycodone-acetaminophen [Percocet] 5-325 mg tablet 1 tab PO Q6H PRN (Reason: pain) 3 Days Qty: 12 RF: 0 No Action albuterol sulfate 1 INHALER inhaler 1 - 2 puff inhalation Q4H PRN PRN (Reason: Wheezing) Qty: 1 RF: 0 budesonide-formoterol 160-4.5MCG inhaler 2 puff PO BID RF: 0 insulin regular human 100 UNIT/ML solution 26 units subcut TIDCM RF: 0 cyclobenzaprine 10 MG tablet 5 mg PO TID PRN PRN (Reason: Muscle Spasm) RF: 0 trazodone 50 MG tablet 50 mg PO QHS PRN PRN (Reason: Sleep) RF: 0 bupropion HCl 300 MG tablet extended release 24 hr 300 mg PO DAILY RF: 0 bupropion HCl 150 MG tablet extended release 24 hr 150 mg PO DAILY RF: 0 insulin NPH isoph U-100 human 100 UNITS/ML insulin pen 32 units SC BIDAC RF: 0 hydrocodone-acetaminophen 1 TABLET tablet 1 tab PO Q6H PRN PRN (Reason: Pain) 3 Days Qty: 10 RF: 0 carvedilol 12.5 mg Tablet 12.5 mg PO BID Qty: 0 RF: 0 metoclopramide HCl [Reglan] 5 mg tablet 5 mg PO TID PRN PRN (Reason: nausea/vomiting) Qty: 10 RF: 0 lorazepam 1 mg tablet 0.5 - 1 mg PO DAILY PRN (Reason: Anxiety) RF: 0 ondansetron HCl [Zofran] 4 mg tablet 4 mg PO Q8H PRN (Reason: nausea and vomiting) Qty: 10 RF: 0 colestipol 1 gram tablet 2 g PO DAILY Qty: 60 RF: 0 mirtazapine [Remeron SolTab] 15 mg Tablet,Disintegrating 15 mg PO QHS RF: 0 ticagrelor 90 mg tablet 90 mg PO BID Qty: 60 RF: 11 aspirin 81 mg tablet,delayed release (DR/EC) 81 mg PO DAILY@0800 Qty: 30 RF: 11 atorvastatin 80 mg tablet 80 mg PO QHS Qty: 30 RF: 11 hydralazine 50 mg tablet 50 mg PO BID Qty: 90 RF: 11 lisinopril 40 mg tablet 40 mg PO DAILY Qty: 30 RF: 11 pantoprazole 40 mg tablet,delayed release (DR/EC) 40 mg PO DAILY Qty: 30 RF: 11 levothyroxine 200 mcg tablet 200 mcg PO DAILY Qty: 30 RF: 11 levothyroxine 25 mcg tablet 25 mcg PO DAILY Qty: 30 RF: 11 dicyclomine 20 mg tablet 20 mg PO TID PRN PRN (Reason: cramps) Qty: 21 RF: 0 loperamide 2 mg capsule 4 mg PO Q6H PRN (Reason: loose stool) Qty: 30 RF: 0 Primary Care Provider: Carlotta Galindo Referrals: Carlotta Galindo MD [Primary Care Provider] - Activity Restrictions/Additional Instructions: Your x-ray shows that her hardware is intact. I prescribed lidocaine patches and Percocet to take as needed for the next few days. Please follow-up with your surgeon or back doctor. Disposition Disposition: Home, Self Care
[2021-09-12] MEDS: Ondansetron ODT 4 MG Tablet PO (16:28)
[2021-09-12] MEDS: Lidocaine 5% Patch 1 PATCH TOPICAL (16:28)
[2021-09-12] MEDS: oxyCODONE 5 MG Tablet PO (16:28)
--- NOTE | 2021-09-12 16:35 | RAD_ITS ---
STUDY: X-RAY - LUMBAR SPINE REASON FOR EXAM: Female, 45 years old. low back pain Technologist Notes pt states severe back pain x years, pain radiates down both legs, hx of lumbar fusion x 11 years ago and revision x 9-10 years ago, TECHNIQUE: 2 view(s) of the lumbar spine were obtained. COMPARISON: Lumbar spine x-ray dated April 06, 2021 CT of abdomen and pelvis dated April 17, 2021 FINDINGS: Normal lumbar lordosis. There is no substantial scoliosis. Stable posterior fusion rods and pedicle screws at the L4-S1 levels. No change in grade 3 anterolisthesis of L5 on S1 of 1.76 cm. No visualized compression deformity or acute fracture. Mild multilevel disc space narrowing and endplate degenerative spurring/changes reidentified. The soft tissue structures are unremarkable. RAD/Lumbar Spine 2 or 3 Views IMPRESSION: Degenerative changes of the spine, as detailed above. Electronically Signed: Aiden Hopper MD at 17:12 EST ,
[2021-09-12 17:01] VITALS: BP 138/79; PULSE 72; RESP 14; TEMP 36.9; O2SAT 99
== END 2021-09-12 17:02 | disposition home or self-care (01) ==
LOC: ED 16:50
PROVIDERS: Emergency Provider Physician Assistant; PCP Internal Medicine; Visit Provider Physician Assistant
DX: M54.50 Low back pain, unspecified (principal); J44.9 Chronic obstructive pulmonary disease, unspecified; I11.0 Hypertensive heart disease with heart failure; I50.9 Heart failure, unspecified; E66.01 Morbid (severe) obesity due to excess calories; Z68.43 Body mass index [BMI] 50.0-59.9, adult; E11.9 Type 2 diabetes mellitus without complications; Z79.4 Long term (current) use of insulin; G89.29 Other chronic pain; I25.10 Atherosclerotic heart disease of native coronary artery without angina pectoris; I25.2 Old myocardial infarction; E78.00 Pure hypercholesterolemia, unspecified; E03.9 Hypothyroidism, unspecified; F32.A Depression, unspecified; F17.210 Nicotine dependence, cigarettes, uncomplicated; Z98.1 Arthrodesis status; Z95.5 Presence of coronary angioplasty implant and graft; Z79.82 Long term (current) use of aspirin; Z79.899 Other long term (current) drug therapy
CPT/HCPCS: 72100; 99284

== ENCOUNTER 2021-11-13 10:15 | Emergency (ER) | payer MEDICARE, MEDICAID, SELFPAY ==
[2019-05-06 13:18] VITALS: BMI 56.7
[2021-11-13 10:17] VITALS: BP 178/92; PULSE 89; RESP 18; TEMP 36; O2SAT 96; BMI 49.9
--- NOTE | 2021-11-13 10:22 | RAD_ITS ---
STUDY: X-RAY - LEFT HAND REASON FOR EXAM: Female, 46 years old. Pain following injury. TECHNIQUE: 3 view(s) of the hand. COMPARISON: None. FINDINGS: Normal radiocarpal articulation. Normal distal radioulnar joint. Normal visualized carpal bones. Normal carpal articulations Normal carpometacarpal articulation of the thumb. Normal second through fifth carpometacarpal joints. Normal metacarpi. Normal metacarpophalangeal joint of the thumb. Normal interphalangeal joint of the thumb. Nondisplaced corner fracture at the base of the proximal phalanx of the thumb Normal metacarpophalangeal joints of the second through fifth fingers. Normal proximal and distal interphalangeal joints of the second through fifth fingers. Normal phalanges of the second through fifth fingers. Soft tissue swelling. RAD/Hand Min 3 Views IMPRESSION: Nondisplaced corner fracture at the base of the proximal phalanx of the thumb with overlying soft tissue swelling. Electronically Signed: Jacobo Joshi MD at 10:49 EDT ,
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
[2021-11-13 11:16] VITALS: RESP 16
== END 2021-11-13 11:17 | disposition home or self-care (01) ==
PROVIDERS: Emergency Provider Emergency Medicine; PCP Internal Medicine; Visit Provider Emergency Medicine
DX: S62.512A Displaced fracture of proximal phalanx of left thumb, initial encounter for closed fracture (principal); J44.9 Chronic obstructive pulmonary disease, unspecified; I11.0 Hypertensive heart disease with heart failure; I50.9 Heart failure, unspecified; E66.01 Morbid (severe) obesity due to excess calories; Z68.42 Body mass index [BMI] 45.0-49.9, adult; E11.9 Type 2 diabetes mellitus without complications; Z79.4 Long term (current) use of insulin; I25.10 Atherosclerotic heart disease of native coronary artery without angina pectoris; F17.210 Nicotine dependence, cigarettes, uncomplicated; E78.00 Pure hypercholesterolemia, unspecified; I25.2 Old myocardial infarction; E03.9 Hypothyroidism, unspecified; G47.30 Sleep apnea, unspecified; Z79.899 Other long term (current) drug therapy; Z79.82 Long term (current) use of aspirin; W26.8XXA Contact with other sharp object(s), not elsewhere classified, initial encounter; Y93.89 Activity, other specified; Y99.9 Unspecified external cause status; Y92.9 Unspecified place or not applicable
CPT/HCPCS: 29130; 73130; 99282

== ENCOUNTER 2021-12-30 17:31 | Emergency (ER) | payer MEDICARE, MEDICAID, SELFPAY ==
[2019-05-06 13:18] VITALS: BMI 56.7
[2021-12-30 17:32] VITALS: BP 131/103; PULSE 102; RESP 18; TEMP 35.6; O2SAT 98; BMI 49.3
--- NOTE | 2021-12-30 18:00 | EKG12_ITS ---
Test Reason : HYPOGLYCEMIA Blood Pressure : / mmHG Vent. Rate : 097 BPM Atrial Rate : 097 BPM P-R Int : 168 ms QRS Dur : 084 ms QT Int : 356 ms P-R-T Axes : 042 -12 010 degrees QTc Int : 452 ms Sinus rhythm with occasional Premature ventricular complexes Inferior infarct , age undetermined, cannot be excluded Abnormal ECG Confirmed by TACOS SILVA, LACEY ([id number]), graphic editor ODALYS PHILIPPE ([id number]) on 01/01/2022 8:50:51 AM Referred By: DARYA Confirmed By:LACEY BALDERRAMA MD
--- NOTE | 2021-12-30 18:02 | EX.ED.DYSGE1 ---
HPI History of Present Illness Chief Complaint: Hyperglycemia Informant: patient Narrative Narrative: Patient presents with high blood sugar. Patient states she has been under a lot of stress recently. Her diet is been off. But she is taking her insulin. She noticed today that her sugar was going up. She has had polyuria polydipsia mild blurring of vision myalgias and nausea. These are all typical symptoms that she gets. She has had DKA. She is a type II diabetic but has had diabetes for 20 years and has also had DKA before. This feels like very early DKA. She is not having chest pain or dyspnea. She has not vomited but she took Phenergan at home to help. Her normal blood sugars are in the mid 200s or more. They have been running about 400-524 today. She did take insulin at home. But she is not on a sliding scale so she only took 30 units instead of her normal 28. She does not have a pattern on how to adjust her insulin needs if her blood sugar goes up. PFSH PFSH Medical History Abdominal pain Asthma Atherosclerotic heart disease of [place] coronary artery without angina pectoris Blood disorder CHF (congestive heart failure) Chronic obstructive pulmonary disease Chronic pain Current use of insulin Depression Diabetes Diabetes mellitus, type II Dyspnea Essential hypertension Failure of outpatient treatment GERD (gastroesophageal reflux disease) Heart attack High cholesterol History of anxiety History of stress test HTN (hypertension) Hypercholesterolemia Hypothyroidism Irregular heartbeat Morbid obesity with BMI of 50.0-59.9, adult Nicotine dependence GEOVANI (obstructive sleep apnea) Sleep apnea Sleep-disordered breathing Smoker Home Medications albuterol sulfate 90 mcg/actuation aerosol inhaler 1 - 2 puff inhalation Q4H PRN PRN Wheezing ##1 10/15/15 [Rx Last Taken 10/19/20] budesonide-formoterol HFA 160 mcg-4.5 mcg/actuation aerosol inhaler 2 puff PO BID breathing 05/07/19 [History Last Taken 10/20/20] insulin regular human 100 unit/mL injection solution 26 units subcut TIDCM diabetes 05/07/19 [History Last Taken 10/20/20] cyclobenzaprine 10 mg tablet 5 mg PO TID PRN PRN Muscle Spasm 07/19/19 [History Last Taken 10/13/20] trazodone 50 mg tablet 50 mg PO QHS PRN PRN Sleep 01/14/20 [History Last Taken 04/16/21 50] bupropion HCl 150 mg 24 hr tablet, extended release 150 mg PO DAILY MOOD 09/25/20 [History Last Taken 10/20/20] bupropion HCl 300 mg 24 hr tablet, extended release 300 mg PO DAILY MOOD 09/25/20 [History Last Taken 10/20/20] aspirin 81 mg tablet,delayed release 81 mg PO DAILY@0800 blood thinner #30 tabs 11/07/20 [Rx Last Taken Unknown] atorvastatin 80 mg tablet 80 mg PO QHS cholesterol #30 tabs 11/07/20 [Rx Last Taken Unknown] hydralazine 50 mg tablet 50 mg PO BID blood pressure #90 tabs 11/07/20 [Rx Last Taken Unknown] levothyroxine 200 mcg tablet 200 mcg PO DAILY thyroid #30 tabs 11/07/20 [Rx Last Taken Unknown] levothyroxine 25 mcg tablet 25 mcg PO DAILY thyroid #30 tabs 11/07/20 [Rx Last Taken Unknown] lisinopril 40 mg tablet 40 mg PO DAILY blood pressure #30 tabs 11/07/20 [Rx Last Taken Unknown] pantoprazole 40 mg tablet,delayed release 40 mg PO DAILY acid reflux #30 tabs 11/07/20 [Rx Last Taken Unknown] ticagrelor 90 mg tablet 90 mg PO BID stents #60 tabs 11/07/20 [Rx Last Taken Unknown] hydrocodone-acetaminophen 5-325mg 5mg-325mg 1 tab PO Q6H PRN PRN Pain 3 days #10 TABLETS 04/06/21 [Rx Last Taken Unknown] insulin NPH isoph U-100 human 100 unit/mL (3 mL) subcutaneous pen 32 units SC BIDAC diabetes 04/06/21 [History Last Taken Unknown] carvedilol 12.5 mg tablet 12.5 mg PO BID #0 tabs 04/20/21 [Rx Last Taken Unknown] metoclopramide HCl 5 mg tablet (Reglan) 5 mg PO TID PRN PRN nausea/vomiting #10 tabs 04/20/21 [Rx Last Taken Unknown] lorazepam 1 mg tablet 0.5 - 1 mg PO DAILY PRN Anxiety 04/24/21 [History Last Taken Unknown] colestipol 1 gram tablet 2 g PO DAILY #60 tabs 04/26/21 [Rx Last Taken Unknown] ondansetron HCl 4 mg tablet (Zofran) 4 mg PO Q8H PRN nausea and vomiting #10 tabs 04/26/21 [Rx Last Taken Unknown] mirtazapine 15 mg disintegrating tablet (Remeron SolTab) 15 mg PO QHS 05/02/21 [History Last Taken Unknown] dicyclomine 20 mg tablet 20 mg PO TID PRN PRN cramps #21 tabs 05/10/21 [Rx Last Taken Unknown] loperamide 2 mg capsule 4 mg PO Q6H PRN loose stool #30 caps 05/10/21 [Rx Last Taken Unknown] lidocaine 5 % topical patch 1 patch topical DAILY 7 patches or 1 box 7 days #1 ea 09/12/21 [Rx Last Taken Unknown] oxycodone-acetaminophen 5 mg-325 mg tablet (Percocet) 1 tab PO Q6H PRN pain 3 days #12 tabs 09/12/21 [Rx Last Taken Unknown] hydrocodone-acetaminophen 5-325mg 5mg-325mg 1 tab PO Q6H PRN pain 3 days #7 tabs 11/13/21 [Rx Last Taken Unknown] dicyclomine 20 mg tablet 20 mg PO TID PRN cramps #20 tabs 12/31/21 [Rx Last Taken Unknown] ondansetron 4 mg disintegrating tablet 4 mg PO Q8H PRN nausea and vomiting #10 tabs 12/31/21 [Rx Last Taken Unknown] Allergy/AdvReac Type Severity Reaction Status Date / Time metformin [From Glucophage] AdvReac Intermediate Diarrhea Verified 12/30/21 17:35 hydromorphone [From Dilaudid] AdvReac Nausea Verified 12/30/21 17:35 morphine AdvReac Nausea Verified 12/30/21 17:35 Family History Mother Cancer lung Father Hypertension COPD (chronic obstructive pulmonary disease) Daughter Factor V deficiency Grandmother Cancer lung COPD (chronic obstructive pulmonary disease) Surgical History H/O cardiac catheterization History of back surgery History of delivery History of cholecystectomy History of coronary artery stent placement (09/26/20) History of dilatation and curettage History of left heart catheterization (10/08/20) History of percutaneous transluminal coronary angioplasty (~10/20/20) History of tonsillectomy and adenoidectomy History of tubal ligation S/P tubal ligation Social History household members: none Smoking Status: Current every day smoker tobacco type: cigarettes alcohol intake: current alcohol intake frequency: holidays/special occasions only substance use type: does not use caffeine: Yes ROS ROS ED Constitutional Constitutional ED: Denies chills or fever(s) Eyes Eyes: Reports blurry vision ENT ENT ED: Denies rhinorrhea or sore throat Cardiovascular Cardiovascular: Denies chest pain, palpitations or racing heartbeat Respiratory/Chest Respiratory/Chest: Denies cough, dyspnea or dyspnea on exertion Gastrointestinal Gastrointestinal: Reports abdominal pain and nausea; Denies vomiting Genitourinary Genitourinary ED: Reports urinary frequency; Denies dysuria Musculoskeletal Musculoskeletal: Reports myalgias Integumentary Denies rash Neurologic Neurologic: Denies paresthesias or weakness Endocrine Endocrinology: Reports polydipsia and polyuria Hematologic/Lymphatic Hematologic/Lymphatic: Denies easy bleeding or easy bruising Allergic/Immunologic Allergic/Immunologic ED: Denies urticaria EXAM Physical Exam Const Vital Signs: 12/30/21 17:32 12/30/21 19:37 12/30/21 21:00 Temperature 96.0 F L Temperature Source Temporal Pulse Rate 102 H 78 89 Respiratory Rate 18 14 14 Blood Pressure 131/103 H 146/78 H 98/62 Blood Pressure Mean 112 100 74 Pulse Ox 98 98 100 Oxygen Delivery Method Room Air Room Air Room Air 12/30/21 23:00 Temperature Temperature Source Pulse Rate 84 Respiratory Rate 14 Blood Pressure 128/78 H Blood Pressure Mean 94 Pulse Ox 98 Oxygen Delivery Method Room Air Positive well nourished and well developed General Appearance ED: well developed and NAD HEENT Reports dry mucous membranes Mouth ED: Yes dry mucous membranes Mouth: dry mucous membranes Eyes EOMs intact bilaterally Chest Wall inspection of chest normal Resp normal respiratory effort Auscultation: Negative for rales, rhonchi or wheezes Cardio regular rhythm Rate: tachycardic GI normal to inspection, nondistended, normoactive bowel sounds, non-tender and non-distended Back/Spine no CVA tenderness Extremity normal to inspection General Extremety ED: Negative for edema or tenderness General Extremity: Negative for edema Neuro oriented x3 Sensorium / Orientation: alert Psych mental status grossly normal Skin no rashes or lesions noted MDM MDM MDM Narrative Medical decision making narrative: Patient's initial blood work showed normal CBC. Her electrolytes showed slightly low bicarb but normal gap. Her glucose was high at 369. Liver unction test were normal. She did have some mild ketones. Lab table is also up. However, the patient's glucose was coming down. She was hydrated. She actually dropped to 40. She has now eaten and gotten D50 and is back up to 160 range. Repeat blood work shows normal bicarb, normal gap, normal lactate and negative ketones. Troponins are also both negative. Urine is clean. Patient still complains of abdominal pain. We did do a CAT scan. Final result is pending on this. Is always this CT shows no acute process I think we can get her home. I did talk with her about medications. I noticed that on her online prescribing report she used to be on tramadol prescribed routinely but this just stopped in the last month or so. She states she was on it for her back and her colitis. I think some of her pain is really a chronic abdominal pain issue. She has also been on Reglan. She has been on Bentyl. She evidently has a fair history of abdominal pain issues. However, her blood work looks good. She is not having vomiting. She ate quite a bit of food. 1 can see that food in the stomach of her CAT scan. She had eaten just prior to this. She has Phenergan at home. I will write Zofran so she has options. I think she can see her physicians as an outpatient. CT scan shows no acute process. I will get patient dose of meds along with pantoprazole here. We will get her home at this time. Lab Data Attestation: I reviewed the patient's lab results. Labs: Laboratory Results - last 24 hr 12/30/21 12/30/21 12/30/21 18:00 18:00 18:00 WBC 9.8 RBC 4.49 Hgb 14.0 Hct 40.6 MCV 90.4 MCH 31.2 MCHC 34.5 RDW Std Deviation 43.2 RDW Coeff of Whitney 13.1 Plt Count 308 MPV 10.7 Immature Gran % (Auto) 0.300 Neut % (Auto) 56.4 Lymph % (Auto) 33.1 Williams % (Auto) 6.6 Eos % (Auto) 2.9 Baso % (Auto) 0.7 Absolute Neuts (auto) 5.5 Absolute Lymphs (auto) 3.23 Nucleated RBC % 0 Sodium 130 L Potassium 4.5 Chloride 98 Carbon Dioxide 18.0 L Anion Gap 14 BUN 19 H Creatinine 0.88 Estim Creat Clear Calc 70.35 Est GFR (MDRD) Af Amer 89 Est GFR (MDRD) Non-Af 73 BUN/Creatinine Ratio 21.7 H Glucose 369 H Lactic Acid Calcium 9.1 Total Bilirubin 0.70 AST 19 ALT 17 Alkaline Phosphatase 116 Troponin I High Sens 4 Total Protein 7.5 Albumin 3.3 Globulin 4.2 Albumin/Globulin Ratio 0.8 L Lipase 22 L Serum , Qual Urine Color Urine Clarity Urine pH Ur Specific [place] Urine Protein Urine Glucose (UA) Urine Ketones Urine Occult Blood Urine Nitrite Urine Bilirubin Urine Urobilinogen Ur Leukocyte Esterase Urine RBC Urine WBC Ur Squamous Epith Cells Urine Bacteria Urine Mucus Acetone Level SMALL H POC Glucose 12/30/21 12/30/21 12/30/21 18:00 19:30 19:40 WBC RBC Hgb Hct MCV MCH MCHC RDW Std Deviation RDW Coeff of Whitney Plt Count MPV Immature Gran % (Auto) Neut % (Auto) Lymph % (Auto) Williams % (Auto) Eos % (Auto) Baso % (Auto) Absolute Neuts (auto) Absolute Lymphs (auto) Nucleated RBC % Sodium Potassium Chloride Carbon Dioxide Anion Gap BUN Creatinine Estim Creat Clear Calc Est GFR (MDRD) Af Amer Est GFR (MDRD) Non-Af BUN/Creatinine Ratio Glucose Lactic Acid 2.7 H* Calcium Total Bilirubin AST ALT Alkaline Phosphatase Troponin I High Sens Total Protein Albumin Globulin Albumin/Globulin Ratio Lipase Serum , Qual NEGATIVE Urine Color Yellow Urine Clarity Sl. Cloudy Urine pH 5.0 Ur Specific [place] 1.020 Urine Protein Negative Urine Glucose (UA) 1000 H Urine Ketones 150 A* Urine Occult Blood Negative Urine Nitrite Negative Urine Bilirubin Negative Urine Urobilinogen Normal Ur Leukocyte Esterase Negative Urine RBC 0 SEEN Urine WBC 0 SEEN Ur Squamous Epith Cells 0 SEEN Urine Bacteria 1+ Urine Mucus 0 SEEN Acetone Level POC Glucose 12/30/21 12/30/21 12/30/21 20:07 21:50 21:50 WBC RBC Hgb Hct MCV MCH MCHC RDW Std Deviation RDW Coeff of [place] Plt Count MPV Immature Gran % (Auto) Neut % (Auto) Lymph % (Auto) Williams % (Auto) Eos % (Auto) Baso % (Auto) Absolute Neuts (auto) Absolute Lymphs (auto) Nucleated RBC % Sodium 136 Potassium 3.7 Chloride 105 Carbon Dioxide 23.0 Anion Gap 8 BUN 18 Creatinine 0.69 Estim Creat Clear Calc 89.72 Est GFR (MDRD) Af Amer 117 Est GFR (MDRD) Non-Af 96 BUN/Creatinine Ratio 26.0 H Glucose 48 L Lactic Acid Calcium 8.9 Total Bilirubin AST ALT Alkaline Phosphatase Troponin I High Sens 6 Total Protein Albumin Globulin Albumin/Globulin Ratio Lipase Serum , Qual Urine Color Urine Clarity Urine pH Ur Specific [place] Urine Protein Urine Glucose (UA) Urine Ketones Urine Occult Blood Urine Nitrite Urine Bilirubin Urine Urobilinogen Ur Leukocyte Esterase Urine RBC Urine WBC Ur Squamous Epith Cells Urine Bacteria Urine Mucus Acetone Level NEGATIVE POC Glucose 161 H 12/30/21 12/30/21 12/30/21 21:50 22:52 23:24 WBC RBC Hgb Hct MCV MCH MCHC RDW Std Deviation RDW Coeff of [place] Plt Count MPV Immature Gran % (Auto) Neut % (Auto) Lymph % (Auto) Williams % (Auto) Eos % (Auto) Baso % (Auto) Absolute Neuts (auto) Absolute Lymphs (auto) Nucleated RBC % Sodium Potassium Chloride Carbon Dioxide Anion Gap BUN Creatinine Estim Creat Clear Calc Est GFR (MDRD) Af Amer Est GFR (MDRD) Non-Af BUN/Creatinine Ratio Glucose Lactic Acid 1.0 Calcium Total Bilirubin AST ALT Alkaline Phosphatase Troponin I High Sens Total Protein Albumin Globulin Albumin/Globulin Ratio Lipase Serum , Qual Urine Color Urine Clarity Urine pH Ur Specific [place] Urine Protein Urine Glucose (UA) Urine Ketones Urine Occult Blood Urine Nitrite Urine Bilirubin Urine Urobilinogen Ur Leukocyte Esterase Urine RBC Urine WBC Ur Squamous Epith Cells Urine Bacteria Urine Mucus Acetone Level POC Glucose 40 L* 166 H ABG Data ABG results: ABG 12/30/21 18:59 Specimen Type COLLIN VBG pH 7.41 VBG pO2 98 H VBG HCO3 18 L VBG Total CO2 19 L VBG O2 Sat (Calc) 98 H VBG Base Excess -7 L POC Mix VBG pCO2 Pt Tmp 28.4 L O2 Delivery Device Room Air Radiography Diagnostic Testing: Clinical Impression(s) from Imaging Studies Abdomen/Pelvis CT 12/30/21 22:36 IMPRESSION: No acute abnormalities in the abdomen or pelvis. There are stable nonobstructing calyceal stones in the kidneys. Electronically Signed: Efraín Vanessa MD at 0:10 EDT Reading Location ID and State: [facility] / [place] Tel , Service support , EKG Initial EKG: Comments: EKG done for high blood sugars and epigastric discomfort. EKG read by me shows a normal sinus rhythm with rare PVC. Overall rate of 97. No acute ST elevation or depression consistent with infarct or ischemia. There is mild T wave inversion in lead III but this was seen prior. OR interval, QRS duration and QTc normal. Overall this is similar to 21 July of this year. Discharge Plan Triage Chief Complaint: Hyperglycemia ED Provider: Rodo Griffin Dx/Rx/DC Orders Clinical Impression: Hyperglycemia, Abdominal pain Instructions: High Blood Sugar (Hyperglycemia), ED Abdominal Pain Unkn Cause Fem Prescriptions: New ondansetron 4 mg tablet,disintegrating 4 mg PO Q8H PRN (Reason: nausea and vomiting) Qty: 10 0RF dicyclomine 20 mg tablet 20 mg PO TID PRN (Reason: cramps) Qty: 20 0RF No Action albuterol sulfate 1 INHALER inhaler 1 - 2 puff inhalation Q4H PRN PRN (Reason: Wheezing) Qty: 1 0RF Label Comments: asthma budesonide-formoterol 160-4.5MCG inhaler 2 puff PO BID insulin regular human 100 UNIT/ML solution 26 units subcut TIDCM cyclobenzaprine 10 MG tablet 5 mg PO TID PRN PRN (Reason: Muscle Spasm) trazodone 50 MG tablet 50 mg PO QHS PRN PRN (Reason: Sleep) bupropion HCl 300 MG tablet extended release 24 hr 300 mg PO DAILY bupropion HCl 150 MG tablet extended release 24 hr 150 mg PO DAILY Rx Instructions: 300 + 150 tablet to = 450 daily insulin NPH isoph U-100 human 100 UNITS/ML insulin pen 32 units SC BIDAC Rx Instructions: breakfast and supper hydrocodone-acetaminophen 1 TABLET tablet 1 tab PO Q6H PRN PRN (Reason: Pain) 3 Days Qty: 10 0RF carvedilol 12.5 mg Tablet 12.5 mg PO BID Qty: 0 0RF metoclopramide HCl [Reglan] 5 mg tablet 5 mg PO TID PRN PRN (Reason: nausea/vomiting) Qty: 10 0RF lorazepam 1 mg tablet 0.5 - 1 mg PO DAILY PRN (Reason: Anxiety) Label Comments: Please take half to one tablet daily as needed for anxiety ondansetron HCl [Zofran] 4 mg tablet 4 mg PO Q8H PRN (Reason: nausea and vomiting) Qty: 10 0RF colestipol 1 gram tablet 2 g PO DAILY Qty: 60 0RF mirtazapine [Remeron SolTab] 15 mg Tablet,Disintegrating 15 mg PO QHS lidocaine 5 % adhesive patch,medicated 1 patch topical DAILY 7 Days Qty: 1 0RF Rx Instructions: leave on most painful area for up to 12 hrs oxycodone-acetaminophen [Percocet] 5-325 mg tablet 1 tab PO Q6H PRN (Reason: pain) 3 Days Qty: 12 0RF hydrocodone-acetaminophen 5-325 mg tablet 1 tab PO Q6H PRN (Reason: pain) 3 Days Qty: 7 0RF ticagrelor 90 mg tablet 90 mg PO BID Qty: 60 11RF aspirin 81 mg tablet,delayed release (DR/EC) 81 mg PO DAILY@0800 Qty: 30 11RF atorvastatin 80 mg tablet 80 mg PO QHS Qty: 30 11RF hydralazine 50 mg tablet 50 mg PO BID Qty: 90 11RF lisinopril 40 mg tablet 40 mg PO DAILY Qty: 30 11RF pantoprazole 40 mg tablet,delayed release (DR/EC) 40 mg PO DAILY Qty: 30 11RF levothyroxine 200 mcg tablet 200 mcg PO DAILY Qty: 30 11RF Rx Instructions: Take with 25 mcg tab to = 225 mcg daily levothyroxine 25 mcg tablet 25 mcg PO DAILY Qty: 30 11RF Rx Instructions: Take with 200 mcg tab to = 225 mcg daily dicyclomine 20 mg tablet 20 mg PO TID PRN PRN (Reason: cramps) Qty: 21 0RF loperamide 2 mg capsule 4 mg PO Q6H PRN (Reason: loose stool) Qty: 30 0RF Primary Care Provider: Carlotta Galindo Referrals: Carlotta Galindo MD [Primary Care Provider] - 3-5 Days Disposition Disposition: Home, Self Care
[2021-12-30 19:05] LABS: Absolute Lymphocyte Count 3.23 X10^3/uL (0.83-4.51); Absolute Neutrophil Count 5.5 X10^3/uL (2.0-7.7); Basophil# 0.07 X10^3/uL; Basophil% 0.7 % (0-1); Eosinophil# 0.28 X10^3/uL; Eosinophils% 2.9 % (0-5); Hematocrit 40.6 % (37-47); Lymphocyte # 3.23 X10^3/ul (0.83-4.51); Lymphocyte % 33.1 % (19-41); Mean Corp Hgb Conc 34.5 g/dL (32-36); Mean Corpuscular Hgb 31.2 pg (27.0-32.0); Mean Corpuscular Volume 90.4 fL (81-99); Mean Platelet Vol. 10.7 fl (6.2-12.0); Monocyte# 0.64 X10^3/uL; Monocyte% 6.6 % (0-10); NRBC Flagged by Analyzer 0 % (0-5); Neutrophil # 5.52 X10^3/uL (2.7-7.7); Neutrophil % 56.4 % (47-70); Platelet Count 308 K/mm3 (150-450); RBC Distribution Width CV 13.1 % (11.6-14.6); RBC Distribution Width SD 43.2 fl (35.1-43.9); Red Blood Count 4.49 M/mm3 (4.2-5.4); White Blood Count 9.8 K/mm3 (4.4-11.0)
[2021-12-30 19:06] LABS: Blood Gas Specimen Type VEN; O2 Delivery Device Room Air; VBG BASE EXCESS -7 mmol/L (-1.0-3.5); VBG Bicarbonate 18 mmol/L (22-26); VBG PO2 98 mmHg (25-40); VBG SO2 98 % (50-70); VBG TCO2 19 mmol/L (23-33); VBG pCO2 28.4 mmHg (41-51); VBG pH 7.41 (7.32-7.42)
[2021-12-30] MEDS: Ondansetron 4 MG/2 ML Vial IV (19:11)
[2021-12-30] MEDS: 0.9% Normal Saline 1,000 ML 1000 ML IV ×2 (19:11→20:42)
[2021-12-30 19:24] LABS: ALB/GLOB Ratio 0.8 RATIO (0.9-2.4); AST(SGOT) 19 U/L (15-37); Alanine Aminotransfer ALT/SGPT 17 U/L (13-56); Albumin, Serum 3.3 g/dL (3.2-5.0); Alkaline Phosphatase 116 U/L (45-117); Anion Gap 14 (5-15); BUN 19 mg/dL (7-18); BUN/Creat Ratio 21.7 RATIO (10-20); Calcium,Total 9.1 mg/dL (8.5-10.1); Chloride 98 mmol/L (98-107); Creatinine, Serum 0.88 mg/dL (0.55-1.02); EST Glomerular Filtration Rate 73 mL/min (>60); Est Glom Filt Rate - Afr Amer 89 mL/min (>60); Estimated Creatinine Clearance 70.35 ml/min; Globulin 4.2 g/dL (2.2-4.2); Glucose 369 mg/dL (74-106); Lipase 22 U/L (73-393); Potassium 4.5 mmol/L (3.5-5.1); Protein, Total 7.5 g/dL (6.4-8.2); Sodium Level 130 mmol/L (136-145); Troponin-I HS 4 pg/mL (3.0-54.0)
[2021-12-30 19:36] LABS: Mucous, Urine 0 SEEN /hpf (<or=2+); Red Blood Cells-Urine 0 SEEN /hpf (0-5); Squamous Epithelial Cells - UA 0 SEEN /hpf (5-10); White Blood Cells 0 SEEN /hpf (0-5)
[2021-12-30 19:37] VITALS: BP 146/78; PULSE 78; RESP 14; O2SAT 98
[2021-12-30] MEDS: Morphine 4 MG/ML Syringe IV ×2 (19:37→20:42)
[2021-12-30 19:41] LABS: Color, Urine Yellow (Yellow); Glucose, Dipstick 1000 mg/dl (Normal); Leukocyte Esterase-Dipstick Negative /ul (Negative); Nitrite-Dipstick Negative (Negative); Occult Blood-Urine Negative /ul (Negative); Protein-Dipstick Negative (Negative); Urine Bilirubin Dipstick Negative (Negative); Urine Clarity Sl. Cloudy (Clear); Urine Urobilinogen Normal (Normal)
[2021-12-30 20:01] LABS: Internal QC Validated? YES +Cl - CLEAR BKGD; Pregnancy, Serum, hCG Quali. NEGATIVE Negative
[2021-12-30 20:11] LABS: Bedside Glucose 161 mg/dL (74-106)
[2021-12-30 20:17] LABS: Lactic Acid 2.7 mmol/L (0.4-1.9)
[2021-12-30 20:25] LABS: Ketone-Dipstick 150 mg/dl (Negative)
[2021-12-30 20:31] LABS: Bacteria 1+ /hpf (None Seen)
[2021-12-30 21:00] VITALS: BP 98/62; PULSE 89; RESP 14; O2SAT 100
--- NOTE | 2021-12-30 22:36 | CT_ITS ---
EXAM: CT ABDOMEN AND PELVIS WITHOUT INTRAVENOUS CONTRAST CLINICAL INDICATION: pain TECHNIQUE: Helically acquired images were obtained of the abdomen and pelvis without intravenous contrast. This CT exam was performed using one or more of the following dose reduction techniques: automated exposure control, adjustment of the mA and/or kV according to patient size, and/or use of iterative reconstruction technique. This report was created using [employer] report generation technology. COMPARISON: 05/02/2021 FINDINGS: LOWER THORAX: Unremarkable. Lung bases are clear. No cardiomegaly. No significant pericardial effusion. ABDOMEN: LIVER: Unremarkable. Homogeneous. GALLBLADDER AND BILE DUCTS: There are surgical clips from a cholecystectomy. No intra- or extrahepatic biliary ductal dilation. PANCREAS: Unremarkable. No focal cystic mass. SPLEEN: Unremarkable. Normal size without focal cystic or solid mass. ADRENALS: Unremarkable. No nodules. KIDNEYS AND URETERS: There are nonobstructing calyceal stones in the left kidney. There is no ureteral obstruction. Normal renal size and position. STOMACH AND BOWEL: Unremarkable. No stomach or bowel distention. No focal inflammatory change. PELVIS: APPENDIX: No evidence of acute appendicitis. BLADDER: Unremarkable. REPRODUCTIVE: Unremarkable as visualized. No mass. ABDOMEN and PELVIS: INTRAPERITONEAL SPACE: Unremarkable. No ascites or other fluid collection. No free air. BONES/JOINTS: There is hardware in the lower lumbar spine from posterior fusion. No suspicious lytic or blastic abnormality. SOFT TISSUES: Unremarkable. No discrete abdominal or pelvic wall hernia. VASCULATURE: Unremarkable. Abdominal aorta is non-dilated. LYMPH NODES: Unremarkable. No enlarged lymph nodes. CT/Abdomen/Pelvis without Cont IMPRESSION: No acute abnormalities in the abdomen or pelvis. There are stable nonobstructing calyceal stones in the kidneys. Electronically Signed: Efraín Vanessa MD at 0:10 EDT ,
[2021-12-30 22:56] LABS: Bedside Glucose 40 mg/dL (74-106)
[2021-12-30 23:00] VITALS: BP 128/78; PULSE 84; RESP 14; O2SAT 98
[2021-12-30] MEDS: Dextrose 50%-Water 25 GM/50 ML DISP.SYRIN IV (23:10)
[2021-12-30 23:23] LABS: Anion Gap 8 (5-15); BUN 18 mg/dL (7-18); Calcium,Total 8.9 mg/dL (8.5-10.1); Chloride 105 mmol/L (98-107); Creatinine, Serum 0.69 mg/dL (0.55-1.02); EST Glomerular Filtration Rate 96 mL/min (>60); Est Glom Filt Rate - Afr Amer 117 mL/min (>60); Estimated Creatinine Clearance 89.72 ml/min; Glucose 48 mg/dL (74-106); Potassium 3.7 mmol/L (3.5-5.1); Sodium Level 136 mmol/L (136-145); Troponin-I HS 6 pg/mL (3.0-54.0)
[2021-12-30 23:31] LABS: Bedside Glucose 166 mg/dL (74-106)
[2021-12-30 23:47] LABS: Reflex Lactate? Y
[2021-12-31 00:24] VITALS: BP 132/80; PULSE 78; RESP 16
[2021-12-31] MEDS: Morphine 4 MG/ML Syringe IV (00:27)
== END 2021-12-31 00:30 | disposition home or self-care (01) ==
PROVIDERS: Emergency Provider Emergency Medicine; PCP Internal Medicine; Visit Provider Emergency Medicine
DX: E11.65 Type 2 diabetes mellitus with hyperglycemia (principal); J44.9 Chronic obstructive pulmonary disease, unspecified; I50.9 Heart failure, unspecified; I11.0 Hypertensive heart disease with heart failure; E11.10 Type 2 diabetes mellitus with ketoacidosis without coma; E66.01 Morbid (severe) obesity due to excess calories; Z68.43 Body mass index [BMI] 50.0-59.9, adult; Z79.4 Long term (current) use of insulin; I25.10 Atherosclerotic heart disease of native coronary artery without angina pectoris; I25.2 Old myocardial infarction; E78.00 Pure hypercholesterolemia, unspecified; E03.9 Hypothyroidism, unspecified; F32.A Depression, unspecified; F41.9 Anxiety disorder, unspecified; K21.9 Gastro-esophageal reflux disease without esophagitis; G89.29 Other chronic pain; F17.210 Nicotine dependence, cigarettes, uncomplicated; Z95.5 Presence of coronary angioplasty implant and graft; Z79.82 Long term (current) use of aspirin; Z79.891 Long term (current) use of opiate analgesic; Z79.899 Other long term (current) drug therapy
CPT/HCPCS: 74176; 80048; 80053; 81001; 82009; 82803; 82962; 83605; 83690; 84484; 84703; 85025; 93005; 96361; 96374; 96375; 96376; 99282; J7030; A4216; J2405; J3490

== ENCOUNTER → 2022-03-25 | Outpatient (CLI) | payer MEDICARE, MEDICAID, SELFPAY ==
[2019-05-06 13:18] VITALS: BMI 56.7
[2022-03-25 13:39] LABS: Absolute Lymphocyte Count 3.29 X10^3/uL (0.83-4.51); Absolute Neutrophil Count 4.1 X10^3/uL (2.0-7.7); Basophil# 0.07 X10^3/uL; Basophil% 0.8 % (0-1); Eosinophil# 0.22 X10^3/uL; Eosinophils% 2.6 % (0-5); Hematocrit 40.7 % (37-47); Hemoglobin 13.7 g/dL (12.0-15.0); Lymphocyte # 3.29 X10^3/ul (0.83-4.51); Lymphocyte % 38.6 % (19-41); Mean Corp Hgb Conc 33.7 g/dL (32-36); Mean Corpuscular Hgb 32.1 pg (27.0-32.0); Mean Corpuscular Volume 95.3 fL (81-99); Mean Platelet Vol. 10.4 fl (6.2-12.0); Monocyte# 0.81 X10^3/uL; Monocyte% 9.5 % (0-10); NRBC Flagged by Analyzer 0 % (0-5); Neutrophil # 4.11 X10^3/uL (2.7-7.7); Neutrophil % 48.3 % (47-70); Platelet Count 308 K/mm3 (150-450); RBC Distribution Width CV 12.9 % (11.6-14.6); Red Blood Count 4.27 M/mm3 (4.2-5.4); White Blood Count 8.5 K/mm3 (4.4-11.0)
[2022-03-25 14:21] LABS: AST(SGOT) 9 U/L (15-37); Alanine Aminotransfer ALT/SGPT 18 U/L (13-56); Albumin, Serum 3.3 g/dL (3.2-5.0); Alkaline Phosphatase 97 U/L (45-117); Anion Gap 14 (5-15); BUN 12 mg/dL (7-18); BUN/Creat Ratio 20.2 RATIO (10-20); Bilirubin, Direct 0.08 mg/dL (0.00-0.30); Calcium,Total 8.8 mg/dL (8.5-10.1); Chloride 100 mmol/L (98-107); Cholesterol 169 mg/dL (200); Creatinine, Serum 0.59 mg/dL (0.55-1.02); EST Glomerular Filtration Rate 115 mL/min (>60); Est Glom Filt Rate - Afr Amer 139 mL/min (>60); Globulin 4.2 g/dL (2.2-4.2); Glucose 327 mg/dL (74-106); High Density Lipoprotein 62 mg/dL; Potassium 4.3 mmol/L (3.5-5.1); Protein, Total 7.5 g/dL (6.4-8.2); Sodium Level 135 mmol/L (136-145); Thyroid Stim Hormone (TSH) 3.77 uIU/mL (0.358-3.74); Triglycerides 132 mg/dL; Very Low Density Lipoprotein 26 mg/dL (5-40)
== END | disposition home or self-care (01) ==
LOC: LAB 12:39
PROVIDERS: PCP Internal Medicine; Referring Provider Nurse Practitioner Gerontology; Visit Provider Nurse Practitioner Gerontology
DX: I10 Essential (primary) hypertension (principal); E78.00 Pure hypercholesterolemia, unspecified; R53.83 Other fatigue
CPT/HCPCS: 36415; 80048; 80061; 80076; 84443; 85025

== ENCOUNTER → 2022-12-10 | Outpatient (CLI) | payer MEDICARE, MEDICAID, SELFPAY ==
[2019-05-06 13:18] VITALS: BMI 56.7
== END | disposition home or self-care (01) ==
PROVIDERS: PCP Internal Medicine; Visit Provider Nurse Practitioner
DX: G47.33 Obstructive sleep apnea (adult) (pediatric) (principal)
CPT/HCPCS: 95810

== ENCOUNTER 2023-04-05 22:46 | Inpatient (IN) | payer MEDICARE, MEDICAID, SELFPAY ==
[2019-05-06 13:18] VITALS: BMI 56.7
[2023-04-05] VITALS (8 sets, daily range): BP systolic 139–225; BP diastolic 85–117; PULSE 103–111; RESP 14–18; TEMP 35.9; O2SAT 95–98; BMI 51.6
--- NOTE | 2023-04-05 22:59 | ED.VIS.CHEST ---
HPI History of Present Illness Chief Complaint: Chest Pain PFSH PFSH Medical History Abdominal pain Asthma Atherosclerotic heart disease of [place] coronary artery without angina pectoris Blood disorder CHF (congestive heart failure) Chronic obstructive pulmonary disease Chronic pain Current use of insulin Depression Diabetes Diabetes mellitus, type II Dyspnea Essential hypertension Failure of outpatient treatment GERD (gastroesophageal reflux disease) Heart attack High cholesterol History of anxiety History of stress test HTN (hypertension) Hypercholesterolemia Hypothyroidism Irregular heartbeat Morbid obesity with BMI of 50.0-59.9, adult Nicotine dependence GEOVANI (obstructive sleep apnea) Sleep apnea Sleep-disordered breathing Smoker Home Medications albuterol sulfate 90 mcg/actuation aerosol inhaler 1 - 2 puff inhalation Q4H PRN PRN Wheezing ##1 10/15/15 [Rx Last Taken 10/19/20] budesonide-formoterol HFA 160 mcg-4.5 mcg/actuation aerosol inhaler 2 puff PO BID breathing 05/07/19 [History Last Taken 10/20/20] insulin regular human 100 unit/mL injection solution 24 units subcut TIDCM diabetes 05/07/19 [History Last Taken 10/20/20] bupropion HCl 300 mg 24 hr tablet, extended release 300 mg PO DAILY MOOD 09/25/20 [History Last Taken 10/20/20] pantoprazole 40 mg tablet,delayed release 40 mg PO DAILY acid reflux #30 tabs 11/07/20 [Rx Last Taken Unknown] insulin NPH isoph U-100 human 100 unit/mL (3 mL) subcutaneous pen 24 units subcut BIDAC diabetes 04/06/21 [History Last Taken Unknown] metoclopramide HCl 5 mg tablet (Reglan) 5 mg PO TID PRN PRN nausea/vomiting #10 tabs 04/20/21 [Rx Last Taken Unknown] lorazepam 1 mg tablet 0.5 - 1 mg PO TID PRN Anxiety 04/24/21 [History Last Taken Unknown] ondansetron 4 mg disintegrating tablet 4 mg PO Q8H PRN nausea and vomiting #10 tabs 12/31/21 [Rx Last Taken Unknown] atorvastatin 80 mg tablet 80 mg PO QHS cholesterol #90 tabs 03/25/22 [Rx Last Taken Unknown] cyclobenzaprine 10 mg tablet 5 mg PO TID PRN PRN Muscle Spasm 03/25/22 [History Last Taken Unknown] hydralazine 50 mg tablet 50 mg PO BID blood pressure #180 tabs 03/25/22 [Rx Last Taken Unknown] lamotrigine 200 mg tablet 300 mg PO DAILY 03/25/22 [History Last Taken Unknown] levothyroxine 200 mcg tablet 200 mcg PO DAILY 03/25/22 [History Last Taken Unknown] levothyroxine 75 mcg tablet 75 mcg PO DAILY 03/25/22 [History Last Taken Unknown] lisinopril 40 mg tablet 40 mg PO DAILY blood pressure #90 tabs 03/25/22 [Rx Last Taken Unknown] ticagrelor 90 mg tablet 90 mg PO BID stents #180 tabs 03/25/22 [Rx Last Taken Unknown] bupropion HCl 150 mg 24 hr tablet, extended release 150 mg PO DAILY 04/06/23 [History Last Taken Unknown] carvedilol 25 mg tablet 25 mg PO Q12H 04/06/23 [History Last Taken Unknown] gabapentin 100 mg capsule 100 mg PO TID PRN nerve pain 04/06/23 [History Last Taken Unknown] levothyroxine 300 mcg tablet 300 mcg PO .thursday04/06/23 [History Last Taken Unknown] Allergy/AdvReac Type Severity Reaction Status Date / Time metformin [From Glucophage] AdvReac Intermediate Diarrhea Verified 04/05/23 22:51 Family History Mother Cancer lung Father Hypertension COPD (chronic obstructive pulmonary disease) Daughter Factor V deficiency Grandmother Cancer lung COPD (chronic obstructive pulmonary disease) Surgical History H/O cardiac catheterization History of back surgery History of delivery History of cholecystectomy History of coronary artery stent placement (09/26/20) History of dilatation and curettage History of left heart catheterization (10/08/20) History of percutaneous transluminal coronary angioplasty (~10/20/20) History of tonsillectomy and adenoidectomy History of tubal ligation S/P tubal ligation Social History household members: none Smoking Status: Current every day smoker tobacco type: cigarettes alcohol intake: current alcohol intake frequency: holidays/special occasions only substance use type: does not use caffeine: Yes EXAM Physical Exam Const Vital Signs: 04/05/23 22:47 04/05/23 22:50 04/05/23 23:04 Temperature 96.6 F L 96.6 F L Temperature Source Temporal Temporal Pulse Rate 108 H 108 H Respiratory Rate 18 18 Respiratory Pattern Blood Pressure 225/117 H 225/117 H Blood Pressure Mean 153 153 Blood Pressure Location Pulse Ox 98 98 Oxygen Delivery Method Room Air Room Air Room Air 04/05/23 23:06 04/05/23 23:12 04/05/23 23:17 Temperature Temperature Source Pulse Rate 105 H 110 H Respiratory Rate Respiratory Pattern Normal Blood Pressure 192/99 H 159/85 H Blood Pressure Mean Blood Pressure Location Pulse Ox Oxygen Delivery Method 04/05/23 23:22 04/05/23 23:30 04/05/23 23:55 Temperature Temperature Source Pulse Rate 103 H 110 H 109 H Respiratory Rate 14 18 Respiratory Pattern Blood Pressure 160/91 H 154/91 H 139/90 H Blood Pressure Mean 112 106 Blood Pressure Location Pulse Ox 96 95 Oxygen Delivery Method Room Air Room Air 04/06/23 00:45 04/06/23 00:50 04/05/23 23:57 Temperature Temperature Source Pulse Rate 111 H Respiratory Rate 17 Respiratory Pattern Blood Pressure 160/96 H 162/95 H Blood Pressure Mean 117 117 Blood Pressure Location Left Arm Pulse Ox 95 Oxygen Delivery Method 04/06/23 00:00 04/06/23 00:05 04/06/23 00:10 Temperature Temperature Source Pulse Rate 109 H 101 H 107 H Respiratory Rate 14 19 H 11 L Respiratory Pattern Blood Pressure 124/104 H 133/100 H 153/96 H Blood Pressure Mean 112 110 111 Blood Pressure Location Pulse Ox 95 97 Oxygen Delivery Method 04/06/23 01:05 04/06/23 01:15 04/06/23 01:25 Temperature Temperature Source Pulse Rate 98 98 Respiratory Rate 17 13 Respiratory Pattern Blood Pressure 174/99 H 157/97 H 140/90 H Blood Pressure Mean 124 117 106 Blood Pressure Location Pulse Ox 98 94 Oxygen Delivery Method 04/06/23 01:35 04/06/23 01:40 04/06/23 01:45 Temperature Temperature Source Pulse Rate 109 H 99 102 H Respiratory Rate 21 H 14 14 Respiratory Pattern Blood Pressure 142/89 H 127/75 H 139/89 H Blood Pressure Mean 106 92 105 Blood Pressure Location Pulse Ox 94 96 94 Oxygen Delivery Method Room Air 04/06/23 01:55 04/06/23 02:10 04/06/23 00:20 Temperature Temperature Source Pulse Rate 113 H 114 H 102 H Respiratory Rate 18 13 16 Respiratory Pattern Blood Pressure 113/74 131/88 H Blood Pressure Mean 87 102 Blood Pressure Location Pulse Ox 97 Oxygen Delivery Method Room Air 04/06/23 00:23 04/06/23 00:35 04/06/23 00:37 Temperature Temperature Source Pulse Rate 97 Respiratory Rate 18 Respiratory Pattern Blood Pressure 164/103 H 208/170 H Blood Pressure Mean 121 182 Blood Pressure Location Pulse Ox 96 Oxygen Delivery Method 04/06/23 00:40 04/06/23 00:41 04/06/23 00:45 Temperature Temperature Source Pulse Rate 95 97 98 Respiratory Rate 16 14 19 H Respiratory Pattern Blood Pressure 160/100 H 160/96 H Blood Pressure Mean 117 115 Blood Pressure Location Pulse Ox 97 97 95 Oxygen Delivery Method 04/06/23 00:50 04/06/23 00:55 04/06/23 01:00 Temperature Temperature Source Pulse Rate 97 95 98 Respiratory Rate 21 H 21 H 21 H Respiratory Pattern Blood Pressure 162/95 H 154/107 H 167/109 H Blood Pressure Mean 114 120 126 Blood Pressure Location Pulse Ox 94 95 96 Oxygen Delivery Method 04/06/23 01:05 04/06/23 01:06 04/06/23 01:10 Temperature Temperature Source Pulse Rate 100 101 H 104 H Respiratory Rate 18 19 H 20 H Respiratory Pattern Blood Pressure 176/151 H 174/99 H 173/92 H Blood Pressure Mean 160 117 114 Blood Pressure Location Pulse Ox 95 95 94 Oxygen Delivery Method 04/06/23 01:15 04/06/23 01:20 04/06/23 01:25 Temperature Temperature Source Pulse Rate 100 103 H 105 H Respiratory Rate 17 20 H 21 H Respiratory Pattern Blood Pressure 157/97 H 157/97 H 140/90 H Blood Pressure Mean 114 112 104 Blood Pressure Location Pulse Ox 94 93 91 Oxygen Delivery Method 04/06/23 01:30 04/06/23 01:35 04/06/23 01:40 Temperature Temperature Source Pulse Rate 105 H 105 H Respiratory Rate 15 18 Respiratory Pattern Blood Pressure 138/92 H 142/89 H 127/75 H Blood Pressure Mean 104 105 91 Blood Pressure Location Pulse Ox 93 94 Oxygen Delivery Method 04/06/23 01:45 04/06/23 01:50 04/06/23 01:55 Temperature Temperature Source Pulse Rate 106 H 100 104 H Respiratory Rate 13 12 17 Respiratory Pattern Blood Pressure 145/88 H 139/89 H 113/71 Blood Pressure Mean 103 101 84 Blood Pressure Location Pulse Ox 96 96 97 Oxygen Delivery Method 04/06/23 02:00 04/06/23 02:05 04/06/23 02:10 Temperature Temperature Source Pulse Rate 105 H 106 H Respiratory Rate 19 H 20 H Respiratory Pattern Blood Pressure 110/82 H 121/80 H 131/88 H Blood Pressure Mean 89 93 100 Blood Pressure Location Pulse Ox 94 96 Oxygen Delivery Method Room Air [facility] [place] Narrative Medical decision making narrative: HISTORY OF PRESENT ILLNESS: 47-year-old female here with chest pain. States this began yesterday. She further states she took a nitro yesterday that relieved her pain. She states tonight chest pain got worse she took 2 nitro which took the edge off she notes pain radiates into her left arm. She does endorse having anxiety secondary to her passingly 4 months ago. She further states the pain is pressure-like, exertional, radiating. Denies the pain being ripping or tearing. Denies any syncope. Denies any recent cough. Denies any bleeding diathesis. Denies any vomiting or diarrhea. The patient denies recent surgery in the last 4 weeks or immobilization in the last 3 days, denies previous diagnosis of PE, dorsals previous diagnosis of DVT. Denies hemoptysis, unilateral leg swelling or malignancy with treatment the last 6 months or palliative. No estrogen use noted. Patient denies sudden onset of pain, no tearing sensation, no migratory symptoms, no new numbness, weakness or loss of sensation. Patient denies family history or personal history of Connective tissue disorders (Marfan's Syndrome, Nithin Danlos etc) REVIEW OF SYSTEMS: Pertinent positives: Chest pain Pertinent negatives: Numbness, weakness, abdominal pain, syncope PHYSICAL EXAM: Nursing triage notes reviewed, Vital signs reviewed Constitutional: please see mdm HENT: MMM Eyes: Pupils equal round and reactive to light, Extraocular muscles intact Neck: No stridor, no JVD, full neck ROM Lungs: Clear to auscultation, No wheezing or rales. No increased work of breathing, no conversational dyspnea, no accessory muscle use, no nasal flaring. No respiratory distress noted Heart: Fast rate and rhythm, No murmurs, No rubs and No gallops, 2+ distal pulses (radial, femoral, posterior tibial) in all extremities Abdomen: Soft, there is no tenderness, rigidity, rebound or guarding, no obvious peritoneal signs, no palpable pulsatile abdominal masses, no auscultated abdominal bruit : No CVAT Extremities: No edema Neuro: No focal neurological deficits, cranial nerves II through XII intact, 5/5 strength in all extremities. Intact sensation to light touch in all extremities, 2+ reflexes bilateral patella tendons. Normal gait. No ataxia. Skin: No rash or lesions noted MEDICAL DECISION MAKING: Chief Complaint: Chest pain External records reviewed: Underwent successful PCI in 2020 Factors affecting care: Type 2 diabetes, hypothyroidism CAD status post stent, hyperlipidemia, hypertension, Social determinants of health: Current smoker History obtained from others: None Consults: Cardiology (Dr. Valente) internal medicine MDM Narrative: Patient was initially hypertensive, tachycardic, afebrile. No focal cardiopulmonary normalities noted on exam I considered the following differential diagnosis: ACS, arrhythmia, anemia, pneumonia, pneumothorax, PE, aortic dissection ALL IMAGES (IF OBTAINED) HAVE BEEN PERSONALLY REVIEWED AND INTERPRETED BY MYSELF. EKG with sinus tachycardia, normal axis, normal intervals, occasional PVCs, no obvious STEMI, Initial troponin elevated consistent with severe myocardial ischemia Initial D-dimer elevated consistent with includes clot breakdown concerning for PE given tachycardia and chest pain history of DVT CBC with leukocytosis, no anemia or thrombocytopenia BMP without evidence of significant electrolyte abnormalities, no anion gap, no acute kidney injury. BNP within normal limits suggestive of no increased myocardial stretch or right heart strain I have personally reviewed the patient's chest x-ray. Chest x-ray is unremarkable for pulmonary edema, pneumothorax, pneumonia or focal cardiopulmonary abnormality. CTA of the chest shows no evidence of pulm embolism Repeat EKG shows sinus tachycardia, normal axis, normal intervals, no obvious STEMI or new ischemic changes noted The amalgamation of the patient's labs images consistent with likely NSTEMI. There is no ischemic changes on EKG. After sublingual nitro and morphine patient was still having 7-10 pain which prompted nitroglycerin drip. Discussed the case with the artificial stone setter Dr. Valente. He had no immediate recommendations. Also discussed with hospitalist who accepted the pts case. Pt admitted to ICU in guarded condition. The patient and/or family, caregivers express understanding. The patient and/or family, caregivers agrees with the plan. Shared decision making: I will have a discussion with the patient and or visitors regarding risk/benefits of further testing or admission. They will be made aware of of the risk/benefits inherent in this decision they will be given the opportunity to voice understanding. Total critical care time today provided was at least 35 minutes. This excludes separately billable procedures. Critical care time (if documented) is secondary to the patient having high probability of clinically significant/life threatening deterioration in the patient's condition which required my urgent intervention. Impression: 1. Chest pain 2. Hypertension 3. Tachycardia 4. NSTEMI 5. Elevated D-dimer 6. hyopglycemia 7. Hx of CAD Dispo: Admit to telemetry Lab Data Attestation: I reviewed the patient's lab results. Labs: Laboratory Results - last 24 hr 04/05/23 04/06/23 23:05 01:30 WBC 11.2 H RBC 4.36 Hgb 14.3 Hct 41.5 MCV 95.2 MCH 32.8 H MCHC 34.5 RDW Std Deviation 42.5 RDW Coeff of Whitney 12.1 Plt Count 312 MPV 10.4 Immature Gran % (Auto) 0.200 Neut % (Auto) 41.0 L Lymph % (Auto) 45.6 H Marshall % (Auto) 7.2 Eos % (Auto) 5.4 H Baso % (Auto) 0.6 Absolute Neuts (auto) 4.6 Absolute Lymphs (auto) 5.11 H Nucleated RBC % 0 Differential Comment SCANNED D-Dimer Quant (PE/DVT) 0.68 H* Sodium 143 Potassium 3.9 Chloride 109 H Carbon Dioxide 25.0 Anion Gap 9 BUN 7 Creatinine 0.58 Estim Creat Clear Calc 105.58 Est GFR (MDRD) Af Amer 140 Est GFR (MDRD) Non-Af 116 BUN/Creatinine Ratio 12.0 Glucose 100 Calcium 8.5 Magnesium 2.1 Troponin I High Sens 404 H* B-Natriuretic Peptide 90.1 Radiography Diagnostic Testing: Clinical Impression(s) from Imaging Studies Chest X-Ray 04/05/23 23:10 IMPRESSION: No radiographic evidence of acute cardiopulmonary disease. Electronically Signed: Donald Ruvalcaba DO at 23:29 EDT Reading Location ID and State: [facility] / [place] Tel [phone], Service support , Chest CTA 04/06/23 00:01 IMPRESSION: No central PE, pneumonia or other acute disease. Indeterminate 7 mm noncalcified pleural-based nodule involving the lateral segment of the right middle lobe. Suggest follow in 6 months to document stability. AIDOC was utilized to assist in identifying pertinent positive findings. Electronically Signed: Gustavo Bernard MD at 2:11 EDT , Management Discussion w/another healthcare provider: Hospitalist and Manager Pest Discharge Plan Triage Chief Complaint: Chest Pain ED Provider: Garfield Tee Dx/Rx/DC Orders Primary Care Provider: Carlotta Galindo Disposition Disposition: Acute Care Hospital [facility]
--- NOTE | 2023-04-05 23:02 | EKG12_ITS ---
Test Reason : CP Blood Pressure : / mmHG Vent. Rate : 105 BPM Atrial Rate : 105 BPM P-R Int : 166 ms QRS Dur : 084 ms QT Int : 340 ms P-R-T Axes : 055 013 053 degrees QTc Int : 449 ms Sinus tachycardia with Fusion complexes Otherwise normal ECG Confirmed by KEIKO SILVA, REHAN ([id number]), international editorial producer SABAS VAN ([id number]) on 04/07/2023 2:40:33 PM Referred By: LATANYA Confirmed By:REHAN ADEN MD
--- NOTE | 2023-04-05 23:10 | RAD_ITS ---
INDICATION: chest pain EXAMINATION/TECHNIQUE: X-RAY - XR Chest 1 View COMPARISON: July 21, 2021 FINDINGS: LINES/DEVICES: None. LUNGS: No consolidation, edema or effusion. No pneumothorax. MEDIASTINUM AND CARDIOVASCULAR STRUCTURES: Cardiac silhouette not enlarged. Central airways and mediastinal contour are unremarkable. BONES AND SOFT TISSUES: Unremarkable. RAD/Chest 1 View (Portable) IMPRESSION: No radiographic evidence of acute cardiopulmonary disease. Electronically Signed: Donald Ruvalcaba DO at 23:29 EDT ,
[2023-04-05] MEDS: Nitroglycerin SL (ED/IMG/CATH) 0.4 MG TABLET SL ×3 (23:12→23:22)
[2023-04-05] MEDS: Aspirin 81 MG TAB.CHEW 324 MG PO (23:12)
[2023-04-05 23:21] LABS: Absolute Lymphocyte Count 5.11 X10^3/uL (0.83-4.51); Absolute Neutrophil Count 4.6 X10^3/uL (2.0-7.7); Basophil# 0.07 X10^3/uL; Basophil% 0.6 % (0-1); Eosinophil# 0.61 X10^3/uL; Eosinophils% 5.4 % (0-5); Hematocrit 41.5 % (37-47); Hemoglobin 14.3 g/dL (12.0-15.0); Lymphocyte # 5.11 X10^3/ul (0.83-4.51); Lymphocyte % 45.6 % (19-41); Mean Corp Hgb Conc 34.5 g/dL (32-36); Mean Corpuscular Hgb 32.8 pg (27.0-32.0); Mean Corpuscular Volume 95.2 fL (81-99); Mean Platelet Vol. 10.4 fl (6.2-12.0); Monocyte# 0.81 X10^3/uL; Monocyte% 7.2 % (0-10); NRBC Flagged by Analyzer 0 % (0-5); Neutrophil # 4.59 X10^3/uL (2.7-7.7); POSITIVE DIFFERENTIAL YES; POSITIVE MORPHOLOGY YES; Platelet Count 312 K/mm3 (150-450); RBC Distribution Width CV 12.1 % (11.6-14.6); RBC Distribution Width SD 42.5 fl (35.1-43.9); Red Blood Count 4.36 M/mm3 (4.2-5.4); White Blood Count 11.2 K/mm3 (4.4-11.0)
[2023-04-05 23:25] LABS: Differential Indicated SCAN CRITERIA MET
[2023-04-05] MEDS: LORazepam 2 MG/ML Syringe 1 MG IV (23:29)
[2023-04-05 23:39] LABS: Differential Comment SCANNED
[2023-04-05 23:41] LABS: BNP,B-Type NATRIURETIC PEPTIDE 90.1 pg/mL (0-100)
[2023-04-05 23:46] LABS: D-Dimer Quantitative (DVT/PE) 0.68 FEU/ug/m (0.27-0.49)
[2023-04-06] VITALS (66 sets, daily range): BP systolic 110–208; BP diastolic 71–170; PULSE 89–114; RESP 11–23; TEMP 36.3–37.1; O2SAT 91–100; BMI 51.7
--- NOTE | 2023-04-06 00:01 | CT_ITS ---
EXAM: CT ANGIOGRAPHY CHEST WITHOUT AND WITH INTRAVENOUS CONTRAST CLINICAL INDICATION: CP, elevated d-dimer r/o PE TECHNIQUE: Helically acquired angiography images were obtained of the chest without and with intravenous contrast. CTDIvol = ( 12.67 ) mGy, DLP = ( 499.88 ) mGycm This CT exam was performed using one or more of the following dose reduction techniques: automated exposure control, adjustment of the mA and/or kV according to patient size, and/or use of iterative reconstruction technique. MIP reconstructed images were created and reviewed. CONTRAST: IV 100mL [id number] COMPARISON: No relevant prior studies available. FINDINGS: PULMONARY ARTERIES: No central PE. Peripheral pulmonary arteries are not as well opacified. AORTA: Unremarkable. Normal in caliber. No evidence of dissection. GREAT VESSELS OF AORTIC ARCH: Unremarkable. Normal in caliber. No evidence of dissection. LUNGS AND PLEURAL SPACES: 1.3 cm calcified granuloma at the posterior aspect of the right upper lobe. No mass. No pleural effusion or thickening. No pneumothorax. 7 mm noncalcified pleural-based nodule involving the lateral segment of the right middle lobe. HEART: Unremarkable. Heart size is normal. No pericardial effusion. No significant coronary artery calcifications. MEDIASTINUM: Unremarkable. No mediastinal or hilar adenopathy. Esophagus is unremarkable. No hiatal hernia. THYROID: Attenuated appearance. BONES/JOINTS: Degenerative changes of the spine. No suspicious lytic or blastic abnormality. Cholecystectomy. Calcified granulomas of the spleen. Small nonobstructing calyceal calculi involving the left upper renal pole. CT/CTA Chest W/WO Contrast IMPRESSION: No central PE, pneumonia or other acute disease. Indeterminate 7 mm noncalcified pleural-based nodule involving the lateral segment of the right middle lobe. Suggest follow in 6 months to document stability. AIDOC was utilized to assist in identifying pertinent positive findings. Electronically Signed: Gustavo Bernard MD at 2:11 EDT ,
[2023-04-06 00:08] LABS: Anion Gap 9 (5-15); BUN 7 mg/dL (7-18); Calcium,Total 8.5 mg/dL (8.5-10.1); Chloride 109 mmol/L (98-107); Creatinine, Serum 0.58 mg/dL (0.55-1.02); EST Glomerular Filtration Rate 116 mL/min (>60); Est Glom Filt Rate - Afr Amer 140 mL/min (>60); Estimated Creatinine Clearance 105.58 ml/min; Glucose 100 mg/dL (74-106); Potassium 3.9 mmol/L (3.5-5.1); Sodium Level 143 mmol/L (136-145); Troponin-I HS (w/2H Reflex) 404 pg/mL (3.0-54.0)
[2023-04-06] MEDS: Morphine 4 MG/ML Syringe IV ×4 (00:09→13:21)
[2023-04-06] MEDS: Nitroglycerin Infusion 250 ML 3 MG CONT INF (00:45)
[2023-04-06 01:09] LABS: Reflex Troponin-HS? (from REC) Y
[2023-04-06] MEDS: Dextrose 50%-Water 25 GM/50 ML DISP.SYRIN IV (01:46)
--- NOTE | 2023-04-06 01:56 | EKG12_ITS ---
Test Reason : REPEAT Blood Pressure : / mmHG Vent. Rate : 105 BPM Atrial Rate : 105 BPM P-R Int : 164 ms QRS Dur : 082 ms QT Int : 368 ms P-R-T Axes : 051 010 011 degrees QTc Int : 486 ms Poor data quality, interpretation may be adversely affected Sinus tachycardia Inferior infarct , age undetermined Abnormal ECG Confirmed by KEIKO SILVA, REHAN ([id number]), health editor SABAS VAN ([id number]) on 04/07/2023 2:40:59 PM Referred By: LATANYA Confirmed By:REHAN ADEN MD
[2023-04-06 02:13] LABS: Magnesium 2.1 mg/dL (1.6-2.6)
[2023-04-06 02:50] LABS: Troponin-I HS 1012 pg/mL (3.0-54.0)
[2023-04-06 02:50] LABS: Bedside Glucose 60 mg/dL (74-106)
[2023-04-06 02:50] LABS: Bedside Glucose 168 mg/dL (74-106)
[2023-04-06 02:50] LABS: Bedside Glucose 44 mg/dL (74-106)
[2023-04-06 02:50] LABS: Bedside Glucose 43 mg/dL (74-106)
--- NOTE | 2023-04-06 03:29 | EKG12_ITS ---
Test Reason : CP admission Blood Pressure : / mmHG Vent. Rate : 106 BPM Atrial Rate : 106 BPM P-R Int : 164 ms QRS Dur : 082 ms QT Int : 350 ms P-R-T Axes : 046 -01 007 degrees QTc Int : 464 ms Sinus tachycardia Inferior infarct , age undetermined Abnormal ECG Confirmed by KEIKO SILVA, REHAN ([id number]), editor at large SABAS VAN ([id number]) on 04/23/2023 2:30:16 PM Referred By: Julio Cesar Confirmed By:REHAN ADEN MD
--- NOTE | 2023-04-06 03:30 | ED.RN ---
[id number] CALLED REPORT TO ICU NURSE YVETTE
--- NOTE | 2023-04-06 03:31 | PCM.HP.STD ---
HPI - General General Date of Admission: 04/06/23 Date of Service: 04/06/23 Chief Complaint: chest pain HPI Narrative ADELFO BACK, is a 47 F medical history of CAD status post stent (about 7 stents); morbid obesity; anxiety disorder; hypertension;diabetes mellitus; and former tobacco abuse who presents to the emergency department with excruciating substernal chest pain that radiates to both arms; left arm worse than right arm. Her symptoms started a day before presentation and gradually got worse. Initially her chest pain was like an indigestion but later on it progressed to heaviness on her chest. Initially nitroglycerin tablets helped alleviate the pain but with time nitroglycerin tablets did not help any longer. She reports some shortness of breath. She denies any nausea or vomiting. Of note patient's suffered a cardiac arrest and about 3 months ago so patient has been stressed. Patient is in the process of having a gastric bypass and is concerned that heart attack at this time might do with the process. PFSH Medical History Abdominal pain Asthma Atherosclerotic heart disease of [place] coronary artery without angina pectoris Blood disorder CHF (congestive heart failure) Chronic obstructive pulmonary disease Chronic pain Current use of insulin Depression Diabetes Diabetes mellitus, type II Dyspnea Essential hypertension Failure of outpatient treatment GERD (gastroesophageal reflux disease) Heart attack High cholesterol History of anxiety History of stress test HTN (hypertension) Hypercholesterolemia Hypothyroidism Irregular heartbeat Morbid obesity with BMI of 50.0-59.9, adult Nicotine dependence GEOVANI (obstructive sleep apnea) Sleep apnea Sleep-disordered breathing Smoker Home Medications albuterol sulfate 90 mcg/actuation aerosol inhaler 1 - 2 puff inhalation Q4H PRN PRN Wheezing ##1 10/15/15 [Rx Last Taken 10/19/20] budesonide-formoterol HFA 160 mcg-4.5 mcg/actuation aerosol inhaler 2 puff PO BID breathing 05/07/19 [History Last Taken 10/20/20] insulin regular human 100 unit/mL injection solution 24 units subcut TIDCM diabetes 05/07/19 [History Last Taken 10/20/20] bupropion HCl 300 mg 24 hr tablet, extended release 300 mg PO DAILY MOOD 09/25/20 [History Last Taken 10/20/20] pantoprazole 40 mg tablet,delayed release 40 mg PO DAILY acid reflux #30 tabs 11/07/20 [Rx Last Taken Unknown] insulin NPH isoph U-100 human 100 unit/mL (3 mL) subcutaneous pen 24 units subcut BIDAC diabetes 04/06/21 [History Last Taken Unknown] metoclopramide HCl 5 mg tablet (Reglan) 5 mg PO TID PRN PRN nausea/vomiting #10 tabs 04/20/21 [Rx Last Taken Unknown] lorazepam 1 mg tablet 0.5 - 1 mg PO TID PRN Anxiety 04/24/21 [History Last Taken Unknown] ondansetron 4 mg disintegrating tablet 4 mg PO Q8H PRN nausea and vomiting #10 tabs 12/31/21 [Rx Last Taken Unknown] atorvastatin 80 mg tablet 80 mg PO QHS cholesterol #90 tabs 03/25/22 [Rx Last Taken Unknown] cyclobenzaprine 10 mg tablet 5 mg PO TID PRN PRN Muscle Spasm 03/25/22 [History Last Taken Unknown] hydralazine 50 mg tablet 50 mg PO BID blood pressure #180 tabs 03/25/22 [Rx Last Taken Unknown] lamotrigine 200 mg tablet 300 mg PO DAILY 03/25/22 [History Last Taken Unknown] levothyroxine 200 mcg tablet 200 mcg PO DAILY 03/25/22 [History Last Taken Unknown] levothyroxine 75 mcg tablet 75 mcg PO DAILY 03/25/22 [History Last Taken Unknown] lisinopril 40 mg tablet 40 mg PO DAILY blood pressure #90 tabs 03/25/22 [Rx Last Taken Unknown] ticagrelor 90 mg tablet 90 mg PO BID stents #180 tabs 03/25/22 [Rx Last Taken Unknown] bupropion HCl 150 mg 24 hr tablet, extended release 150 mg PO DAILY 04/06/23 [History Last Taken Unknown] carvedilol 25 mg tablet 25 mg PO Q12H 04/06/23 [History Last Taken Unknown] gabapentin 100 mg capsule 100 mg PO TID PRN nerve pain 04/06/23 [History Last Taken Unknown] levothyroxine 300 mcg tablet 300 mcg PO .thursday04/06/23 [History Last Taken Unknown] Allergy/AdvReac Type Severity Reaction Status Date / Time metformin [From Glucophage] AdvReac Intermediate Diarrhea Verified 04/05/23 22:51 Family History Mother Cancer lung Father Hypertension COPD (chronic obstructive pulmonary disease) Daughter Factor V deficiency Grandmother Cancer lung COPD (chronic obstructive pulmonary disease) Surgical History H/O cardiac catheterization History of back surgery History of delivery History of cholecystectomy History of coronary artery stent placement (09/26/20) History of dilatation and curettage History of left heart catheterization (10/08/20) History of percutaneous transluminal coronary angioplasty (~10/20/20) History of tonsillectomy and adenoidectomy History of tubal ligation S/P tubal ligation Social History household members: none Smoking Status: Current every day smoker tobacco type: cigarettes alcohol intake: current alcohol intake frequency: holidays/special occasions only substance use type: does not use caffeine: Yes ROS ROS Narrative Pertinent positives and pertinent negatives as noted in HPI. All other systems were reviewed and are negative Vital Signs Vital Signs Vital Signs: 04/05/23 22:47 04/05/23 22:50 04/05/23 23:04 Temperature 96.6 F L 96.6 F L Temperature Source Temporal Temporal Pulse Rate 108 H 108 H Respiratory Rate 18 18 Respiratory Pattern Blood Pressure 225/117 H 225/117 H Blood Pressure Mean 153 153 Blood Pressure Source Blood Pressure Location Pulse Ox 98 98 Oxygen Delivery Method Room Air Room Air Room Air 04/05/23 23:06 04/05/23 23:12 04/05/23 23:17 Temperature Temperature Source Pulse Rate 105 H 110 H Respiratory Rate Respiratory Pattern Normal Blood Pressure 192/99 H 159/85 H Blood Pressure Mean Blood Pressure Source Blood Pressure Location Pulse Ox Oxygen Delivery Method 04/05/23 23:22 04/05/23 23:30 04/05/23 23:55 Temperature Temperature Source Pulse Rate 103 H 110 H 109 H Respiratory Rate 14 18 Respiratory Pattern Blood Pressure 160/91 H 154/91 H 139/90 H Blood Pressure Mean 112 106 Blood Pressure Source Blood Pressure Location Pulse Ox 96 95 Oxygen Delivery Method Room Air Room Air 04/06/23 00:45 04/06/23 00:50 04/05/23 23:57 Temperature Temperature Source Pulse Rate 111 H Respiratory Rate 17 Respiratory Pattern Blood Pressure 160/96 H 162/95 H Blood Pressure Mean 117 117 Blood Pressure Source Blood Pressure Location Left Arm Pulse Ox 95 Oxygen Delivery Method 04/06/23 00:00 04/06/23 00:05 04/06/23 00:10 Temperature Temperature Source Pulse Rate 109 H 101 H 107 H Respiratory Rate 14 19 H 11 L Respiratory Pattern Blood Pressure 124/104 H 133/100 H 153/96 H Blood Pressure Mean 112 110 111 Blood Pressure Source Blood Pressure Location Pulse Ox 95 97 Oxygen Delivery Method 04/06/23 01:05 04/06/23 01:15 04/06/23 01:25 Temperature Temperature Source Pulse Rate 98 98 Respiratory Rate 17 13 Respiratory Pattern Blood Pressure 174/99 H 157/97 H 140/90 H Blood Pressure Mean 124 117 106 Blood Pressure Source Blood Pressure Location Pulse Ox 98 94 Oxygen Delivery Method 04/06/23 01:35 04/06/23 01:40 04/06/23 01:45 Temperature Temperature Source Pulse Rate 109 H 99 102 H Respiratory Rate 21 H 14 14 Respiratory Pattern Blood Pressure 142/89 H 127/75 H 139/89 H Blood Pressure Mean 106 92 105 Blood Pressure Source Blood Pressure Location Pulse Ox 94 96 94 Oxygen Delivery Method Room Air 04/06/23 01:55 04/06/23 02:10 04/06/23 02:25 Temperature Temperature Source Pulse Rate 113 H 114 H 105 H Respiratory Rate 18 13 12 Respiratory Pattern Blood Pressure 113/74 131/88 H 126/83 H Blood Pressure Mean 87 102 97 Blood Pressure Source Blood Pressure Location Pulse Ox 97 96 Oxygen Delivery Method Room Air Room Air 04/06/23 02:30 04/06/23 02:45 04/06/23 02:45 Temperature 98.4 F Temperature Source Oral Pulse Rate 99 102 H 104 H Respiratory Rate 13 13 13 Respiratory Pattern Blood Pressure 130/82 H 128/87 H 128/87 H Blood Pressure Mean 98 100 100 Blood Pressure Source Monitor Blood Pressure Location Left Forearm Pulse Ox 95 97 97 Oxygen Delivery Method Room Air 04/06/23 02:50 04/06/23 00:20 04/06/23 00:23 Temperature Temperature Source Pulse Rate 101 H 102 H Respiratory Rate 17 16 Respiratory Pattern Blood Pressure 132/88 H 164/103 H Blood Pressure Mean 102 121 Blood Pressure Source Blood Pressure Location Pulse Ox 97 Oxygen Delivery Method 04/06/23 00:35 04/06/23 00:37 04/06/23 00:40 Temperature Temperature Source Pulse Rate 97 95 Respiratory Rate 18 16 Respiratory Pattern Blood Pressure 208/170 H Blood Pressure Mean 182 Blood Pressure Source Blood Pressure Location Pulse Ox 96 97 Oxygen Delivery Method 04/06/23 00:41 04/06/23 00:45 04/06/23 00:50 Temperature Temperature Source Pulse Rate 97 98 97 Respiratory Rate 14 19 H 21 H Respiratory Pattern Blood Pressure 160/100 H 160/96 H 162/95 H Blood Pressure Mean 117 115 114 Blood Pressure Source Blood Pressure Location Pulse Ox 97 95 94 Oxygen Delivery Method 04/06/23 00:55 04/06/23 01:00 04/06/23 01:05 Temperature Temperature Source Pulse Rate 95 98 100 Respiratory Rate 21 H 21 H 18 Respiratory Pattern Blood Pressure 154/107 H 167/109 H 176/151 H Blood Pressure Mean 120 126 160 Blood Pressure Source Blood Pressure Location Pulse Ox 95 96 95 Oxygen Delivery Method 04/06/23 01:06 04/06/23 01:10 04/06/23 01:15 Temperature Temperature Source Pulse Rate 101 H 104 H 100 Respiratory Rate 19 H 20 H 17 Respiratory Pattern Blood Pressure 174/99 H 173/92 H 157/97 H Blood Pressure Mean 117 114 114 Blood Pressure Source Blood Pressure Location Pulse Ox 95 94 94 Oxygen Delivery Method 04/06/23 01:20 04/06/23 01:25 04/06/23 01:30 Temperature Temperature Source Pulse Rate 103 H 105 H Respiratory Rate 20 H 21 H Respiratory Pattern Blood Pressure 157/97 H 140/90 H 138/92 H Blood Pressure Mean 112 104 104 Blood Pressure Source Blood Pressure Location Pulse Ox 93 91 Oxygen Delivery Method 04/06/23 01:35 04/06/23 01:40 04/06/23 01:45 Temperature Temperature Source Pulse Rate 105 H 105 H 106 H Respiratory Rate 15 18 13 Respiratory Pattern Blood Pressure 142/89 H 127/75 H 145/88 H Blood Pressure Mean 105 91 103 Blood Pressure Source Blood Pressure Location Pulse Ox 93 94 96 Oxygen Delivery Method 04/06/23 01:50 04/06/23 01:55 04/06/23 02:00 Temperature Temperature Source Pulse Rate 100 104 H Respiratory Rate 12 17 Respiratory Pattern Blood Pressure 139/89 H 113/71 110/82 H Blood Pressure Mean 101 84 89 Blood Pressure Source Blood Pressure Location Pulse Ox 96 97 Oxygen Delivery Method 04/06/23 02:05 04/06/23 02:10 04/06/23 02:15 Temperature Temperature Source Pulse Rate 105 H 106 H 100 Respiratory Rate 19 H 20 H 16 Respiratory Pattern Blood Pressure 121/80 H 131/88 H 127/84 H Blood Pressure Mean 93 100 98 Blood Pressure Source Blood Pressure Location Pulse Ox 94 96 97 Oxygen Delivery Method Room Air 04/06/23 02:20 04/06/23 02:25 04/06/23 02:30 Temperature Temperature Source Pulse Rate 103 H 111 H 111 H Respiratory Rate 13 16 12 Respiratory Pattern Blood Pressure 126/83 H 130/82 H Blood Pressure Mean 96 96 Blood Pressure Source Blood Pressure Location Pulse Ox 97 97 96 Oxygen Delivery Method Weight Weight: 140.8 kg Body Mass Index (BMI) 51.6 Physical Exam Narrative Physical exam: General: Well-nourished, well-developed. Head: Normocephalic, atraumatic, no tenderness Eyes: Vision is grossly intact. EOMI ENT, no trauma, moist mucous membranes, no rhinorrhea Neck: Nontender, No thyromegaly. CVS: Regular rate and rhythm. S1-S2 present. No murmur, gallop or rub. Respiratory : clear to auscultation bilaterally, chest wall nontender Abdomen: Soft, nontender, nondistended, normal bowel sounds, no masses : Deferred Back: Nontender, no CVA tenderness, no midline spinal tenderness, deformities, step-offs Extremities: Nontender full range of motion, no trauma Skin: Normal color, no trauma, abrasions Neuro: Alert, oriented, cranial nerves II through XII grossly intact. Psychiatry: Normal mood. Normal affect. Not depressed. Not anxious. Results Lab / Micro Data 04/05/23 23:05 04/05/23 23:05 Labs: Laboratory Results - last 24 hr 04/05/23 23:05: WBC 11.2 H, RBC 4.36, Hgb 14.3, Hct 41.5, MCV 95.2, MCH 32.8 H, MCHC 34.5, RDW Std Deviation 42.5, RDW Coeff of [place] 12.1, Plt Count 312, MPV 10.4, Immature Gran % (Auto) 0.200, Neut % (Auto) 41.0 L, Lymph % (Auto) 45.6 H, [place] % (Auto) 7.2, Eos % (Auto) 5.4 H, Baso % (Auto) 0.6, Absolute Neuts (auto) 4.6, Absolute Lymphs (auto) 5.11 H, Nucleated RBC % 0, Differential Comment SCANNED, D-Dimer Quant (PE/DVT) 0.68 H*, Sodium 143, Potassium 3.9, Chloride 109 H, Carbon Dioxide 25.0, Anion Gap 9, BUN 7, Creatinine 0.58, Estim Creat Clear Calc 105.58, Est GFR (MDRD) Af Amer 140, Est GFR (MDRD) Non-Af 116, BUN/Creatinine Ratio 12.0, Glucose 100, Calcium 8.5, Troponin I High Sens 404 H*, B-Natriuretic Peptide 90.1 04/06/23 00:54: POC Glucose 43 L* 04/06/23 01:10: POC Glucose 44 L* 04/06/23 01:29: POC Glucose 60 L 04/06/23 01:30: Magnesium 2.1, Troponin I High Sens 1012 H* 04/06/23 02:17: POC Glucose 168 H Radiology Impression Chest X-Ray 04/05/23 23:10 IMPRESSION: No radiographic evidence of acute cardiopulmonary disease. Electronically Signed: Donald Ruvalcaba DO at 23:29 EDT , Chest CTA 04/06/23 00:01 IMPRESSION: No central PE, pneumonia or other acute disease. Indeterminate 7 mm noncalcified pleural-based nodule involving the lateral segment of the right middle lobe. Suggest follow in 6 months to document stability. AIDOC was utilized to assist in identifying pertinent positive findings. Electronically Signed: Gustavo Bernard MD at 2:11 EDT , ADDENDUM: 04/06/23223 IMPRESSION: No central PE, pneumonia or other acute disease. Indeterminate 7 mm noncalcified pleural-based nodule involving the lateral segment of the right middle lobe. Suggest follow in 6 months to document stability. AIDOC was utilized to assist in identifying pertinent positive findings. N.B. : Garfield Tee MD, confirmed on 04/06/2023 02:17:44 (ET) that the healthcare facility has received the radiology report. 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 Repeat was 1012. Trend. Admitted to the intensive care unit. Chest x-ray interpreted as no radiographic evidence of acute cardiopulmonary process. Chest x-ray was independently interpreted by hospitalist; agrees to radiology interpretation. D-dimer was elevated at 0.68. Follow-up CTA no central PE, pneumonia or other acute disease. Home plavix continued. Daily baby aspirin ordered. Nitroglycerin drip started at the emergency department and continued. Morphine as needed for pain ordered We will check lipid panel. Echocardiogram ordered. Cardiology consult Lung nodules CTA with indeterminate 7 mm noncalcified pleural-based nodule for which a 6 months follow-up was recommended. Patient to follow-up as recommended. Morbid Obesity: BMI: 51.8 kg/m?. Complicates care. Lifestyle modification recommended. Patient is getting ready for a gastric bypass. Diabetes mellitus Patient with hyperglycemia on presentation Monitor Accu-Cheks Correction scale insulin ordered. Anxiety disorder Home antianxiety medication ordered DVT prophylaxis: Started on heparin drip for non-STEMI. Time spent in the patient's overall evaluation,decision-making process, review of diagnostic data, adjustment of management, discussion with other providers, nursing nursing and ancillary staff involved in patient's care documentation, 70 minutes. Charges/Coding Visit Charges Inpatient E&M: 86916 Init Hosp L3
[2023-04-06] MEDS: Heparin Injection (Vial) 5,000 UNIT/ML VIAL 4000 UNIT IV (04:28)
[2023-04-06] MEDS: HEPARIN/D5w 25,000 UNITS 25,000 UNITS/250 ML IV.SOLN. 10 UNITS CONT INF (04:29)
[2023-04-06] MEDS: 0.9% Normal Saline (1000mL) 1,000 ML 75 ML IV (04:29)
[2023-04-06 04:42] LABS: Partial Thromboplast Time 23.6 Seconds (24.1-36.2)
--- NOTE | 2023-04-06 05:55 | ECHOD_ITS ---
Reason For Study: NSTEMI, Chest pain Procedure This was a 2D Doppler, Color Flow transthoracic echocardiogram. The study was technically difficult. Exam performed portable in ICU/CCU. Left Ventricle Normal LV size. Moderate eccentric left ventricular hypertrophy. Left ventricular systolic function is normal. The left ventricular ejection fraction is 55 %. No regional wall motion abnormalities noted. Right Ventricle Normal RV size. Normal systolic function. Atria Normal left atrium. Normal right atrium. Mitral Valve Normal mitral valve. Tricuspid Valve Normal tricuspid valve. Aortic Valve Trisinus/trileaflet aortic valve. Pulmonic Valve Normal pulmonic valve. Great Vessels Normal aortic root. The pulmonary artery is normal size. Normal inferior vena cava. Pericardium/Pleural No pericardial effusion. Medication Diluted definity 1ml given slow IV push to enhance endocardial definition. MMode/2D Measurements & Calculations LVIDd: 4.3 cm IVSd: 1.5 cm Ao root diam: 3.2 cm LVIDs: 3.6 cm LVPWd: 1.2 cm RVDd: 3.3 cm FS: 18.3 % LAV(MOD-bp): 56.3 ml LVAd ap4: 33.5 cm2 LVAd ap2: 26.3 cm2 LAV(MOD-bp) Indexed: 23.6 ml/m2 LVLd ap4: 8.5 cm LVLd ap2: 9.3 cm LAV(MOD-sp2): 52.4 ml EDV(MOD-sp4): 106.0 ml EDV(MOD-sp2): 61.6 ml LAV(MOD-sp4): 52.9 ml EDV(sp4-el): 111.4 ml EDV(sp2-el): 62.8 ml LVAs ap4: 22.2 cm2 LVAs ap2: 16.7 cm2 LVLs ap4: 7.6 cm LVLs ap2: 7.9 cm ESV(MOD-sp4): 53.1 ml ESV(MOD-sp2): 28.5 ml ESV(sp4-el): 55.2 ml ESV(sp2-el): 30.0 ml EF(MOD-sp4): 49.9 % EF(MOD-sp2): 53.8 % EF(sp4-el): 50.4 % SV(MOD-sp4): 52.9 ml SV(MOD-sp2): 33.1 ml SV(sp4-el): 56.2 ml LA A4 area: 20.2 cm2 LA dimension(2D): 3.6 cm RA A4 area: 13.5 cm2 TAPSE: 2.1 cm Doppler Measurements & Calculations MV E max selvin: 120.7 cm/sec Lat Peak E' Selvin: 10.8 cm/sec Med Peak E' Selvin: 7.0 cm/sec E/E' lat: 11.2 E/E' med: 17.2 Ao V2 max: 167.6 cm/sec LV V1 max: 125.4 cm/sec PA V2 max: 110.3 cm/sec Ao max P.2 mmHg LV V1 max P.3 mmHg ECHO/Echo Complete W/ Contrast Interpretation Summary Normal LV size. Moderate eccentric left ventricular hypertrophy. Left ventricular systolic function is normal. The left ventricular ejection fraction is 55 %. Mitral valve chord calcification noted Contrast injection was performed. Ordering Physician: Gopal Harrell Referring Physician: Carlotta Galindo Performed By: Prema Gee RDCS
[2023-04-06] MEDS: Nitroglycerin Infusion 250 ML 72 MG CONT INF (05:56)
[2023-04-06] MEDS: Insulin Lispro 100 UNIT/ML INSULN.PEN SC ×4 (06:04→21:09)
[2023-04-06 06:05] LABS: Absolute Lymphocyte Count 4.09 X10^3/uL (0.83-4.51); Absolute Neutrophil Count 5.9 X10^3/uL (2.0-7.7); Basophil# 0.07 X10^3/uL; Basophil% 0.6 % (0-1); Eosinophil# 0.51 X10^3/uL; Eosinophils% 4.4 % (0-5); Hematocrit 38.9 % (37-47); Hemoglobin 13.1 g/dL (12.0-15.0); Lymphocyte # 4.09 X10^3/ul (0.83-4.51); Lymphocyte % 35.5 % (19-41); Mean Corp Hgb Conc 33.7 g/dL (32-36); Mean Corpuscular Hgb 33.1 pg (27.0-32.0); Mean Corpuscular Volume 98.2 fL (81-99); Monocyte# 0.91 X10^3/uL; Monocyte% 7.9 % (0-10); NRBC Flagged by Analyzer 0 % (0-5); Neutrophil # 5.89 X10^3/uL (2.7-7.7); Neutrophil % 51.3 % (47-70); Platelet Count 285 K/mm3 (150-450); RBC Distribution Width CV 12.3 % (11.6-14.6); RBC Distribution Width SD 44.2 fl (35.1-43.9); Red Blood Count 3.96 M/mm3 (4.2-5.4); White Blood Count 11.5 K/mm3 (4.4-11.0)
[2023-04-06 06:18] LABS: Bedside Glucose 331 mg/dL (74-106)
[2023-04-06 06:25] LABS: Anion Gap 5 (5-15); BUN 9 mg/dL (7-18); BUN/Creat Ratio 16.8 RATIO (10-20); Calcium,Total 8.2 mg/dL (8.5-10.1); Chloride 107 mmol/L (98-107); Cholesterol 186 mg/dL (200); Creatinine, Serum 0.54 mg/dL (0.55-1.02); EST Glomerular Filtration Rate 128 mL/min (>60); Est Glom Filt Rate - Afr Amer 155 mL/min (>60); Glucose 320 mg/dL (74-106); High Density Lipoprotein 59 mg/dL; Potassium 3.9 mmol/L (3.5-5.1); Sodium Level 138 mmol/L (136-145); Triglycerides 236 mg/dL; Very Low Density Lipoprotein 47 mg/dL (5-40)
[2023-04-06 06:26] LABS: Troponin-I HS 2128 pg/mL (3.0-54.0)
[2023-04-06] MEDS: Levothyroxine 75 MCG Tablet PO (06:36)
[2023-04-06] MEDS: Levothyroxine 100 MCG Tablet 200 MCG PO (06:36)
[2023-04-06] MEDS: Albuterol 2.5 MG/3 ML VIAL.NEB. INHALATION (06:51)
[2023-04-06] MEDS: Budesonide Respules 0.5 MG/2 ML AMPUL.NEB. INHALATION (06:51)
--- NOTE | 2023-04-06 07:23 | PCM.PN.HOSP ---
Reason for Visit Reason for Visit: Diagnoses Type 2 diabetes mellitus without complications (04/06/23) Anxiety disorder, unspecified (04/06/23) Non-ST elevation (NSTEMI) myocardial infarction (04/06/23) FPC (current) use of insulin (04/06/23) Subjective Subjective 47-year-old lady who presented with chest pain was found to have elevated troponin consistent with acute non-STEMI treatment initiated per protocol admitted to monitored bed for further managemen Objective Data Objective Data Vital Signs: Vital Signs Temp Pulse Resp BP Pulse Ox O2 Del Method 97.6 F L 99 18 114/72 100 Room Air 04/06/23 05:00 04/06/23 07:00 04/06/23 07:00 04/06/23 07:00 04/06/23 07:00 04/06/23 07:00 Oxygen Delivery Method Room Air Weight: 141.2 kg Body Mass Index (BMI) 51.7 Intake & Output: Intake and Output for Last 24 Hours 04/04/23 04/05/23 04/06/23 23:59 23:59 23:59 Intake Total 331.30 / 331.30 Balance 331.30 / 331.30 Lab / Micro Data 04/06/23 05:45 04/06/23 05:45 Labs: Laboratory Results - last 24 hr 04/05/23 23:05: WBC 11.2 H, RBC 4.36, Hgb 14.3, Hct 41.5, MCV 95.2, MCH 32.8 H, MCHC 34.5, RDW Std Deviation 42.5, RDW Coeff of Whitney 12.1, Plt Count 312, MPV 10.4, Immature Gran % (Auto) 0.200, Neut % (Auto) 41.0 L, Lymph % (Auto) 45.6 H, [place] % (Auto) 7.2, Eos % (Auto) 5.4 H, Baso % (Auto) 0.6, Absolute Neuts (auto) 4.6, Absolute Lymphs (auto) 5.11 H, Nucleated RBC % 0, Differential Comment SCANNED, D-Dimer Quant (PE/DVT) 0.68 H*, Sodium 143, Potassium 3.9, Chloride 109 H, Carbon Dioxide 25.0, Anion Gap 9, BUN 7, Creatinine 0.58, Estim Creat Clear Calc 105.58, Est GFR (MDRD) Af Amer 140, Est GFR (MDRD) Non-Af 116, BUN/Creatinine Ratio 12.0, Glucose 100, Calcium 8.5, Troponin I High Sens 404 H*, B-Natriuretic Peptide 90.1 04/06/23 00:54: POC Glucose 43 L* 04/06/23 01:10: POC Glucose 44 L* 04/06/23 01:29: POC Glucose 60 L 04/06/23 01:30: Magnesium 2.1, Troponin I High Sens 1012 H* 04/06/23 02:17: POC Glucose 168 H 04/06/23 04:25: APTT 23.6 L 04/06/23 05:45: WBC 11.5 H, RBC 3.96 L, Hgb 13.1, Hct 38.9, MCV 98.2, MCH 33.1 H, MCHC 33.7, RDW Std Deviation 44.2 H, RDW Coeff of [place] 12.3, Plt Count 285, MPV 11.0, Immature Gran % (Auto) 0.300, Neut % (Auto) 51.3, Lymph % (Auto) 35.5, [place] % (Auto) 7.9, Eos % (Auto) 4.4, Baso % (Auto) 0.6, Absolute Neuts (auto) 5.9, Absolute Lymphs (auto) 4.09, Nucleated RBC % 0, Sodium 138, Potassium 3.9, Chloride 107, Carbon Dioxide 26.0, Anion Gap 5, BUN 9, Creatinine 0.54 L, Estim Creat Clear Calc 113.40, Est GFR (MDRD) Af Amer 155, Est GFR (MDRD) Non-Af 128, BUN/Creatinine Ratio 16.8, Glucose 320 H, Calcium 8.2 L, Troponin I High Sens 2128 H*, Triglycerides 236 H, Cholesterol 186, LDL Cholesterol 80, VLDL Cholesterol 47 H, HDL Cholesterol 59 04/06/23 05:55: POC Glucose 331 H Radiography Diagnostic Testing: Radiology Impression Chest X-Ray 04/05/23 23:10 IMPRESSION: No radiographic evidence of acute cardiopulmonary disease. Electronically Signed: Donald Ruvalcaba DO at 23:29 EDT Reading Location ID and State: [facility] / [place] Tel [phone], Service support , Chest CTA 04/06/23 00:01 IMPRESSION: No central PE, pneumonia or other acute disease. Indeterminate 7 mm noncalcified pleural-based nodule involving the lateral segment of the right middle lobe. Suggest follow in 6 months to document stability. AIDOC was utilized to assist in identifying pertinent positive findings. Electronically Signed: Gustavo Bernard MD at 2:11 EDT , ADDENDUM: 04/06/23 0224 IMPRESSION: No central PE, pneumonia or other acute disease. Indeterminate 7 mm noncalcified pleural-based nodule involving the lateral segment of the right middle lobe. Suggest follow in 6 months to document stability. AIDOC was utilized to assist in identifying pertinent positive findings. N.B. : Garfield Tee MD, confirmed on 04/06/2023 02:17:44 (ET) that the healthcare facility has received the radiology report. Electronically Signed: Gustavo Bernard MD at 2:11 EDT , Physical Exam Narrative GENERAL: cooperative HEENT: Atraumatic; normocephalic EYES; Anicteric, Normal Conjunctiva NECK; supple, normal thyroid, RESPIRATORY: Diminished to auscultation CARDIOVASCULAR: Regular S1 S2, GI: soft, normoactive bowel sounds, : No Renal angle tenderness; EXTREMITIES: No edema, no clubbing, MUSCULOSKELETAL: no muscle wasting NEURO: Awake; no lateralizing signs. 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 Acute non-STEMI Admitted to the intensive care unit started on nitroglycerin drip, drip heparin drip, antiplatelet therapy with Brilinta as well as atorvastatin. Echo ordered consult placed to cardiology 2. Artery disease ? With previous intervention with stent placement on 09/26/2020 3. Lung nodules CTA with indeterminate 7 mm noncalcified pleural-based nodule for which a 6 months follow-up was recommended. Patient to follow-up as recommended. 4. Class II obesity with BMI of 51.8 ? Complicating care weight loss advised 5. Diabetes mellitus type II -patient's oral hypoglycemics held. Placed on long acting insulin, Accu-Cheks a.c. and at bedtime and covered with sliding scale insulin 6. Hypertension - Blood pressure controlled, home medications continued with dose adjustment as needed 7. Hypothyroidism - Patient is on levothyroxine home dose continued 8. Anxiety ? Did continue with patient's home meds?bupropion 9. GERD ? On PPI 10. DVT prophylaxis ? On heparin Time spent in the patient's overall evaluation,decision-making process, review of diagnostic data, adjustment of management, discussion with other providers, nursing nursing and ancillary staff involved in patient's care documentation, 55 Minutes Charges/Coding Visit Charges Inpatient E&M: 39077 [facility] L3
[2023-04-06] MEDS: hydrALAZINE 50 MG Tablet PO ×2 (07:41→17:37)
[2023-04-06] MEDS: Carvedilol 25 MG Tablet PO ×2 (07:42→17:37)
--- NOTE | 2023-04-06 08:57 | CON.PCM.CA_ITS ---
Assessment & Plan Assessment/Plan (1) ST elevation myocardial infarction (STEMI) of inferior wall: PLAN: She has a non-ST elevation myocardial infarction. She has multiple stents placed in the past. I will recommend that we proceed with a left heart catheterization and depending on the findings further recommendations will be made. Addendum: Cardiac catheterization demonstrated the following: Normal left main coronary artery. Left anterior descending artery previously stented with minimal in-stent stenosis. The first diagonal vessel previously stented with 80% in-stent stenosis noted. Left circumflex artery with no high-grade stenosis noted. Dominant right coronary artery previously stented with extensive 50% in-stent stenosis throughout the long stents. Mild left ventricular systolic dysfunction estimated at 50%. Based on the above angiographic findings we will recommend PCI of the diagonal vessel. We will recommend maximization of medical therapy. (2) History of coronary artery stent placement: PLAN: She is status post angioplasty and stenting as noted above. I would not suggest that we make any changes. We will review and revisit her stents. (3) Essential hypertension: PLAN: Blood pressure appears to be under good control at current time I would not recommend that we make any changes. (4) Hypercholesterolemia: PLAN: She will continue with aggressive risk factor modification. HPI Consult Data Date of Consult: 04/06/23 HPI Narrative HPI Narrative: ADELFO BACK, is a 47 F who presents to the emergency room complaining of chest discomfort. She had gone out last night and had some popcorn and then subsequently started developing significant chest discomfort reminiscent of her previous anginal spells for which she came to the emergency room. She did not have any EKG changes but continued to have chest discomfort and so was put on intravenous nitroglycerin which has been titrated up to over 100 mics/hr with no relief. She presented to the emergency room in September of 2020 with complaints of chest discomfort, and she did undergo a cardiac catheterization which demonstrated m ultivessel coronary artery disease, 70% stenosis in-stent restenosis in her proximal RCA, 80% stenosis in her distal RCA, and mid 70 to 80% stenosis in her right PDA. She underwent successful PCI of distal RCA with RAYMUNDO and [place] angioplasty to in-stent restenosis in proximal RCA. She presented back to the emergency room on October 07, 2020 and was admitted with a complaints of chest pain. Her troponins trended upward, and she underwent a cardiac catheterization which demonstrated patent LAD stent recently placed stents in the proximal and mid as well as distal RCA were also patent with mild in-stent stenosis but no high-grade obstructive lesions.?Medial therapy was recommended at that time. She has a history of coronary artery disease with previous PCI in August 2018. She also has a history of diabetes mellitus, morbid obesity, hypertension, and hyperlipidemia. PFSH Medical History Abdominal pain Asthma Atherosclerotic heart disease of elem coronary artery without angina pectoris Blood disorder CHF (congestive heart failure) Chronic obstructive pulmonary disease Chronic pain Current use of insulin Depression Diabetes Diabetes mellitus, type II Dyspnea Essential hypertension Failure of outpatient treatment GERD (gastroesophageal reflux disease) Heart attack High cholesterol History of anxiety History of stress test HTN (hypertension) Hypercholesterolemia Hypothyroidism Irregular heartbeat Morbid obesity with BMI of 50.0-59.9, adult Nicotine dependence GEOVANI (obstructive sleep apnea) Sleep apnea Sleep-disordered breathing Smoker Home Medications albuterol sulfate 90 mcg/actuation aerosol inhaler 1 - 2 puff inhalation Q4H PRN PRN Wheezing ##1 10/15/15 [Rx Last Taken 10/19/20] budesonide-formoterol HFA 160 mcg-4.5 mcg/actuation aerosol inhaler 2 puff PO BID breathing 05/07/19 [History Last Taken 10/20/20] insulin regular human 100 unit/mL injection solution 24 units subcut TIDCM diabetes 05/07/19 [History Last Taken 10/20/20] bupropion HCl 300 mg 24 hr tablet, extended release 300 mg PO DAILY MOOD 09/25/20 [History Last Taken 10/20/20] pantoprazole 40 mg tablet,delayed release 40 mg PO DAILY acid reflux #30 tabs 11/07/20 [Rx Last Taken Unknown] insulin NPH isoph U-100 human 100 unit/mL (3 mL) subcutaneous pen 24 units subcut BIDAC diabetes 04/06/21 [History Last Taken Unknown] metoclopramide HCl 5 mg tablet (Reglan) 5 mg PO TID PRN PRN nausea/vomiting #10 tabs 04/20/21 [Rx Last Taken Unknown] lorazepam 1 mg tablet 0.5 - 1 mg PO TID PRN Anxiety 04/24/21 [History Last Taken Unknown] ondansetron 4 mg disintegrating tablet 4 mg PO Q8H PRN nausea and vomiting #10 tabs 12/31/21 [Rx Last Taken Unknown] atorvastatin 80 mg tablet 80 mg PO QHS cholesterol #90 tabs 03/25/22 [Rx Last Taken Unknown] cyclobenzaprine 10 mg tablet 5 mg PO TID PRN PRN Muscle Spasm 03/25/22 [History Last Taken Unknown] hydralazine 50 mg tablet 50 mg PO BID blood pressure #180 tabs 03/25/22 [Rx Last Taken Unknown] lamotrigine 200 mg tablet 300 mg PO DAILY 03/25/22 [History Last Taken Unknown] levothyroxine 200 mcg tablet 200 mcg PO DAILY 03/25/22 [History Last Taken Unknown] levothyroxine 75 mcg tablet 75 mcg PO DAILY 03/25/22 [History Last Taken Unknown] lisinopril 40 mg tablet 40 mg PO DAILY blood pressure #90 tabs 03/25/22 [Rx Last Taken Unknown] ticagrelor 90 mg tablet 90 mg PO BID stents #180 tabs 03/25/22 [Rx Last Taken Unknown] bupropion HCl 150 mg 24 hr tablet, extended release 150 mg PO DAILY 04/06/23 [History Last Taken Unknown] carvedilol 25 mg tablet 25 mg PO Q12H 04/06/23 [History Last Taken Unknown] gabapentin 100 mg capsule 100 mg PO TID PRN nerve pain 04/06/23 [History Last Taken Unknown] levothyroxine 300 mcg tablet 300 mcg PO .thursday04/06/23 [History Last Taken Unknown] Allergy/AdvReac Type Severity Reaction Status Date / Time metformin [From Glucophage] AdvReac Intermediate Diarrhea Verified 04/05/23 22:51 Family History Mother Cancer lung Father Hypertension COPD (chronic obstructive pulmonary disease) Daughter Factor V deficiency Grandmother Cancer lung COPD (chronic obstructive pulmonary disease) Surgical History H/O cardiac catheterization History of back surgery History of delivery History of cholecystectomy History of coronary artery stent placement (09/26/20) History of dilatation and curettage History of left heart catheterization (10/08/20) History of percutaneous transluminal coronary angioplasty (~10/20/20) History of tonsillectomy and adenoidectomy History of tubal ligation S/P tubal ligation Social History household members: none Smoking Status: Former smoker alcohol intake: current alcohol intake frequency: holidays/special occasions only substance use type: does not use caffeine: Yes ROS Constitutional Constitutional: Denies fever(s) or weight loss Eyes Eyes: Reports systems reviewed and no addt'l complaints, except as documented ENT HEENT: Reports systems reviewed and no addt'l complaints, except as documented Cardiovascular Cardiovascular: Reports chest pain at rest and chest pain with activity; Denies dyspnea at rest, dyspnea on exertion, edema, palpitations or paroxysmal nocturnal dyspnea Respiratory/Chest Respiratory/Chest: Denies dyspnea on exertion, productive cough, shortness of breath at rest or shortness of breath with exertion Gastrointestinal Gastrointestinal: Denies change in bowel habits, nausea, vomiting or weight changes Genitourinary Genitourinary: Denies difficulty urinating Musculoskeletal Musculoskeletal: Denies joint stiffness or muscle weakness Integumentary Integumentary: Denies lesions Neurologic Neurologic: Denies dizziness or syncope Psychiatric Psychiatric: Denies anxiety Endocrine Endocrinology: Denies excessive sweating or fatigue Hematologic/Lymphatic Hematologic/Lymphatic: Denies anemia Allergic/Immunologic Allergic/Immunologic: Denies seasonal rhinorrhea Physical Exam Const alert, oriented x3 and no apparent distress General Appearance: cooperative HEENT hearing grossly normal bilaterally Head and Scalp: atraumatic Eyes EOMs intact bilaterally Neck General: normal visual inspection Chest inspection of chest normal and palpation of chest normal Resp normal respiratory effort Auscultation: clear to auscultation bilaterally Cardio regular rate, regular rhythm, S1 normal heart sound and S2 normal heart sound Jugular Venous Distention: JVD GI normal to inspection, nondistended, normoactive bowel sounds Extremity normal capillary refill and no pedal edema Peripheral Pulses: Yes pulses 2+ throughout and femoral pulses present Skin no rashes or lesions noted Neuro oriented x3 and CN's II-XII intact bilaterally Psych Appearance: grossly normal and appropriate Risk Stratification Risk Stratification Applicable: Yes Age >/= 65: No >/= 3 CAD Risk Factors (HTN, HLD, DM, family hx of CAD, or current smoker): Yes Aspirin Use in the Past 7 Days: Yes Severe Angina (>/= episodes in 24 hours): No EKG ST Changes >/= 0.5mm: No Positive Cardiac Marker: No LIAT Risk Stratification Score: 2 LIAT % Risk: 8% Risk Objective Data Vital Signs: Vital Signs Temp Pulse Resp BP Pulse Ox O2 Del Method 97.6 F L 105 H 18 114/72 100 Room Air 04/06/23 05:00 04/06/23 07:41 04/06/23 07:00 04/06/23 07:00 04/06/23 07:00 04/06/23 07:00 Oxygen Delivery Method Room Air Weight: 311 lb 4.683 oz Body Mass Index (BMI) 51.7 Intake & Output: Intake and Output for Last 24 Hours 04/04/23 04/05/23 04/06/23 23:59 23:59 23:59 Intake Total 350.80 / 350.80 Balance 350.80 / 350.80 Lab / Micro Data 04/06/23 05:45 04/06/23 05:45 Labs: Laboratory Results - last 24 hr 04/05/23 23:05: WBC 11.2 H, RBC 4.36, Hgb 14.3, Hct 41.5, MCV 95.2, MCH 32.8 H, MCHC 34.5, RDW Std Deviation 42.5, RDW Coeff of Whitney 12.1, Plt Count 312, MPV 10.4, Immature Gran % (Auto) 0.200, Neut % (Auto) 41.0 L, Lymph % (Auto) 45.6 H, [place] % (Auto) 7.2, Eos % (Auto) 5.4 H, Baso % (Auto) 0.6, Absolute Neuts (auto) 4.6, Absolute Lymphs (auto) 5.11 H, Nucleated RBC % 0, Differential Comment SCANNED, D-Dimer Quant (PE/DVT) 0.68 H*, Sodium 143, Potassium 3.9, Chloride 109 H, Carbon Dioxide 25.0, Anion Gap 9, BUN 7, Creatinine 0.58, Estim Creat Clear Calc 105.58, Est GFR (MDRD) Af Amer 140, Est GFR (MDRD) Non-Af 116, BUN/Creatinine Ratio 12.0, Glucose 100, Calcium 8.5, Troponin I High Sens 404 H* , B-Natriuretic Peptide 90.1 04/06/23 00:54: POC Glucose 43 L* 04/06/23 01:10: POC Glucose 44 L* 04/06/23 01:29: POC Glucose 60 L 04/06/23 01:30: Magnesium 2.1, Troponin I High Sens 1012 H* 04/06/23 02:17: POC Glucose 168 H 04/06/23 04:25: APTT 23.6 L 04/06/23 05:45: WBC 11.5 H, RBC 3.96 L, Hgb 13.1, Hct 38.9, MCV 98.2, MCH 33.1 H , MCHC 33.7, RDW Std Deviation 44.2 H, RDW Coeff of Whitney 12.3, Plt Count 285, MPV 11.0, Immature Gran % (Auto) 0.300, Neut % (Auto) 51.3, Lymph % (Auto) 35.5, [place] % (Auto) 7.9, Eos % (Auto) 4.4, Baso % (Auto) 0.6, Absolute Neuts (auto) 5.9, Absolute Lymphs (auto) 4.09, Nucleated RBC % 0, Sodium 138, Potassium 3.9, Chloride 107, Carbon Dioxide 26.0, Anion Gap 5, BUN 9, Creatinine 0.54 L, Estim Creat Clear Calc 113.40, Est GFR (MDRD) Af Amer 155, Est GFR (MDRD) Non-Af 128, BUN/Creatinine Ratio 16.8, Glucose 320 H, Calcium 8.2 L, Troponin I High Sens 2128 H*, Triglycerides 236 H, Cholesterol 186, LDL Cholesterol 80, VLDL Cholesterol 47 H, HDL Cholesterol 59 04/06/23 05:55: POC Glucose 331 H Cardiology Labs/Tests 04/05/23 23:05: WBC 11.2 H, RBC 4.36, Hgb 14.3, Hct 41.5, MCV 95.2, MCH 32.8 H, MCHC 34.5, Plt Count 312, MPV 10.4, Immature Gran % (Auto) 0.200, Neut % (Auto) 41.0 L, Lymph % (Auto) 45.6 H, [place] % (Auto) 7.2, Eos % (Auto) 5.4 H, Baso % (Auto) 0.6, Absolute Neuts (auto) 4.6, Nucleated RBC % 0, D-Dimer Quant (PE/DVT) 0.68 H*, Sodium 143, Potassium 3.9, Chloride 109 H, Carbon Dioxide 25.0, Anion Gap 9, BUN 7, Creatinine 0.58, Est GFR (MDRD) Af Amer 140, Est GFR (MDRD) Non-Af 116, BUN/Creatinine Ratio 12.0, Glucose 100, Calcium 8.5, B-Natriuretic Peptide 90.1 04/06/23 01:30: Magnesium 2.1 04/06/23 04:25: APTT 23.6 L 04/06/23 05:45: WBC 11.5 H, RBC 3.96 L, Hgb 13.1, Hct 38.9, MCV 98.2, MCH 33.1 H , MCHC 33.7, Plt Count 285, MPV 11.0, Immature Gran % (Auto) 0.300, Neut % (Auto) 51.3, Lymph % (Auto) 35.5, [place] % (Auto) 7.9, Eos % (Auto) 4.4, Baso % (Auto) 0.6, Absolute Neuts (auto) 5.9, Nucleated RBC % 0, Sodium 138, Potassium 3.9, Chloride 107, Carbon Dioxide 26.0, Anion Gap 5, BUN 9, Creatinine 0.54 L, Est GFR (MDRD) Af Amer 155, Est GFR (MDRD) Non-Af 128, BUN/Creatinine Ratio 16.8, Glucose 320 H, Calcium 8.2 L, Triglycerides 236 H, Cholesterol 186, LDL Cholesterol 80, VLDL Cholesterol 47 H, HDL Cholesterol 59 Rhythm: EKG: ECHO: Stress Test: Cardiac Cath: PCI: CT Surgery: Holter monitor: EPS: PPM: CXR: Chest CT Scan: Radiography Diagnostic Testing: Radiology Impression Chest X-Ray 04/05/23 23:10 IMPRESSION: No radiographic evidence of acute cardiopulmonary disease. Electronically Signed: Donald Ruvalcaba DO at 23:29 EDT Reading Location ID and State: [facility] / [place] Tel [phone], Service support , Chest CTA 04/06/23 00:01 IMPRESSION: No central PE, pneumonia or other acute disease. Indeterminate 7 mm noncalcified pleural-based nodule involving the lateral segment of the right middle lobe. Suggest follow in 6 months to document stability. AIDOC was utilized to assist in identifying pertinent positive findings. Electronically Signed: Gustavo Bernard MD at 2:11 EDT , ADDENDUM: 04/06/234 IMPRESSION: No central PE, pneumonia or other acute disease. Indeterminate 7 mm noncalcified pleural-based nodule involving the lateral segment of the right middle lobe. Suggest follow in 6 months to document stability. AIDOC was utilized to assist in identifying pertinent positive findings. N.B. : Garfield Tee MD, confirmed on 04/06/2023 02:17:44 (ET) that the healthcare facility has received the radiology report. Electronically Signed: Gustavo Bernard MD at 2:11 EDT ,
[2023-04-06] MEDS: Midazolam 2 MG/2 ML Syringe 1 MG IV (09:08)
--- NOTE | 2023-04-06 10:44 | CL.D_ITS ---
Patient Name: ADELFO BACK Study Date: 04/06/2023 Performing: Wale Busby MD Ht: 65 inches 165.1 cm : 1975 Wt: 311.29 lbs 141.2 kg Age: 47 Gender: female BSA: 2.39 PROCEDURE(S) PERFORMED DC01-(57069)LHC/COR/LV IC12-([id number])RAYMUNDO W/WO PTCA, SINGLE CORONARY ARTERY CLINICAL PROFILE AND INDICATIONS Indications: ACS <= 24 hrs Heart Failure: None Stress/Imaging Stress/Image Study Performed: No CAD Presentations: Non-STEMI. Symptom onset Date/Time: 04/06/23 Time Not Available CONCLUSIONS Diffuse coronary disease previously stented LAD and right coronary artery territories with no high-grade stenosis but the first diagonal vessel has a high-grade in-stent stenosis. RECOMMENDATIONS Referred for immediate PCI DESCRIPTION OF PROCEDURE The patient arrived to the procedure lab. The risks and benefits of the procedure as well as a full description of our services here and current unavailability of surgical backup were fully explained to the patient and/or their significant other prior to the catheterization. The Timeout was completed, verifying the correct patient and procedure. The patient's procedural site was prepped and draped in the usual fashion. Local anesthetic was given subcutaneously to right radial region with Lidocaine 2%. Using a modified Seldinger technique, arterial access was obtained via the right radial artery, a 6Fr sheath was inserted. Left Coronary Artery selective angiography was performed in multiple views using a 5 Fr. 4.0 [place] catheter. Right Coronary Artery selective angiography was then performed in multiple views using a 5 Fr. 4.0 [place] catheter. Left Ventriculography was performed in GUTIÉRREZ projection using a 5 Fr. [place] catheter. LV to AO pullback pressures were then recorded. CORONARY ANGIOGRAPHY DOMINANCE: Right Dominant LEFT HEART ASSESSMENT Left Ventricular Ejection Fraction: by LV Gram 53 % Normal LV wall motion Normal Left Ventricular systolic function LEFT MAIN: Angiographically normal LEFT ANTERIOR DESCENDING ARTERY: Previously placed stent in this vessel is noted to be patent with minimal in-stent stenosis. Mild diffuse distal disease is noted. DIAGONAL 1: Proximal - Previously placed stent has in-stent stenosis of approximately 80% CIRCUMFLEX ARTERY: Mild luminal irregularities less than 30% RIGHT CORONARY ARTERY: Vessel with previously placed stents with moderate in-stent stenosis of 40 to 50% diffuse COMPLICATIONS PROCEDURE MEDICATIONS Fentanyl 50 mcg IV Versed 1 mg IV Fentanyl 50 mcg IV Versed 1 mg IV Versed 1 mg IV Versed 2 mg IV Oxygen: 2 L/min via nasal cannula Heparin given IA 04/06/2023 10:23:32 Heparin 7000 unit(s) IV 04/06/2023 10:37:38 Verapamil 2.5mg, Ntg 100mcgs, 3000 units of Heparin given IA 04/06/2023 10:23:32 SUMMARY OF HEMODYNAMIC DATA Time AIR REST ECG 09:58:15 AO 124/77 (101) SA 10:24:46 LV 118/8, 16 10:31:28 LV 118/4, 10 10:31:36 LV 108/21, 23 10:32:11 LVp 106/19, 22 10:32:12 AOp 120/76 (95) 10:32:19 LV 106/18, 21 10:32:20 Signed By Wale Busby MD On 04/06/2023 10:44:40 Signed By Wale Busby MD On 04/06/2023 10:43:56 Wale Busby MD
--- NOTE | 2023-04-06 11:15 | EKG12_ITS ---
Test Reason : CP Blood Pressure : / mmHG Vent. Rate : 094 BPM Atrial Rate : 094 BPM P-R Int : 166 ms QRS Dur : 086 ms QT Int : 360 ms P-R-T Axes : 033 005 009 degrees QTc Int : 450 ms Normal sinus rhythm Inferior infarct , age undetermined Abnormal ECG Confirmed by KEIKO SILVA, REHAN ([id number]), social media editor SABAS VAN ([id number]) on 04/23/2023 2:29:54 PM Referred By: Ruben Confirmed By:REHAN ADEN MD
--- NOTE | 2023-04-06 11:19 | CL.I_ITS ---
Patient Name: ADELFO BACK Study Date: 04/06/2023 Performing: Jose F Miranda MD Ht: 65 inches 165.1 cm : 1975 Wt: 311.7 lbs 141.2 kg Age: 47 Gender: female BSA: 2.39 PROCEDURE(S) PERFORMED IC12-(00986/C9600)RAYMUNDO W/WO PTCA, SINGLE CORONARY ARTERY CLINICAL PROFILE AND CO-MORBIDITIES Indications: ACS <= 24 hrs Heart Failure: None Stress/Imaging Stress/Image Study Performed: No CAD Presentations: Non-STEMI. Symptom onset Date/Time: 04/06/23 Time Not Available CONCLUSIONS Successful RAYMUNDO to mid D1 RECOMMENDATIONS DESCRIPTION OF PROCEDURE The patient arrived to the procedure lab. The risks and benefits of the procedure as well as a full description of our services here and current unavailability of surgical backup were fully explained to the patient and/or their significant other prior to the catheterization. The Timeout was completed, verifying the correct patient and procedure. The patient's procedural site was prepped and draped in the usual fashion. Local anesthetic was given subcutaneously to right radial region with Lidocaine 2% Using a modified Seldinger technique,arterial access was obtained via the right radial artery, a 6Fr sheath was inserted. Left Coronary Artery selective angiography was performed in multiple views using a 5 Fr. 4.0 [place] catheter. Right Coronary Artery selective angiography was then performed in multiple views using a 5 Fr. 4.0 [place] catheter. Left Ventriculography was performed in GUTIÉRREZ projection using a 5 Fr. Pig[place] catheter. LV to AO pullback pressures were then recorded.The images were reviewed and options discussed. A decision was then made to proceed with an Intervention, IVUS or other adjunct procedure. XB 3.0 Guide catheter was inserted and engaged into the LCA. [place] Guide wire was advanced to the 1st Diagonal. 2.25x12 euphora Balloon catheter was inserted. Balloon catheter was advanced across lesion in the first diagonal, mid. PTCA balloon inflated at 8 atms for 18 secs. PTCA balloon inflated at 10 atms for 12 secs. PTCA balloon inflated at 10 atms for 20 secs. Angiogram performed post balloon dilatation. PTCA balloon inflated at 10 atms for 15 secs. Angiogram performed post balloon dilatation. 2.25x15 resolute Drug Eluting stent was inserted. Drug Eluting stent was advanced across the lesion in the first diagonal, mid. Angiogram performed pre stent deployment. Angiogram performed post stent deployment. Angiogram performed post balloon dilatation. Angiogram performed post stent deployment. The arterial sheath was pulled and a TR Band was applied for hemostasis 10cc air INTERVENTION INFORMATION LESION SITE: 1st Diagonal (Mid) Lesion Complexity: High/C, chronic total occlusion: No, lesion at bifurcation: No, thrombus present: No, lesion length: 11 mm, culprit lesion: Yes, Previously treated lesion: No Pre Stenosis: 80 % Pre intervention LIAT flow: 3 PROCEDURE: Drug Eluting Stent with pre and post dilatation Post Stenosis: 0 % Post intervention LIAT flow: 3 Lesion Devices: Ferguson .014 190cm BMW [place] Straight Cordis 6 Fr XB3.0 100cm Guide Catheter Medtronic SC EUPHORA RX 2.25x12 BALLOON Medtronic Resolute [place] RX RAYMUNDO 2.25x15 COMPLICATIONS No Complications PROCEDURE MEDICATIONS Fentanyl 50 mcg IV Versed 1 mg IV Fentanyl 50 mcg IV Versed 1 mg IV Versed 1 mg IV Versed 2 mg IV Oxygen: 2 L/min via nasal cannula Heparin given IA 04/06/2023 10:23:32 Heparin 7000 unit(s) IV 04/06/2023 10:37:38 Verapamil 2.5mg, Ntg 100mcgs, 3000 units of Heparin given IA 04/06/2023 10:23:32 SUMMARY OF HEMODYNAMIC DATA Time AIR REST ECG 09:58:15 AO 124/77 (101) SA 10:24:46 LV 118/8, 16 10:31:28 LV 118/4, 10 10:31:36 LV 108/21, 23 10:32:11 LVp 106/19, 22 10:32:12 AOp 120/76 (95) 10:32:19 LV 106/18, 21 10:32:20 Signed By Jose F Miranda MD On 04/06/2023 11:18:53 Jose F Miranda MD
[2023-04-06] MEDS: lamoTRIgine 150 MG Tablet 300 MG PO (11:45)
[2023-04-06] MEDS: buPROPion (XL) 300 MG TABLET.XL PO (11:45)
[2023-04-06] MEDS: buPROPion (XL) 150 MG TABLET.XL PO (11:45)
[2023-04-06] MEDS: Pantoprazole Sodium 40 MG Tablet PO (11:45)
[2023-04-06] MEDS: Lisinopril 40 MG Tablet PO (11:45)
[2023-04-06] MEDS: TICAGRELOR 90 MG TABLET PO ×2 (11:45→21:09)
[2023-04-06 11:46] LABS: Bedside Glucose 317 mg/dL (74-106)
[2023-04-06] MEDS: Acetaminophen 325 MG Tablet 650 MG PO (11:53)
[2023-04-06] MEDS: 0.9% Normal Saline (1000mL) 1,000 ML 80 ML IV (12:33)
[2023-04-06] MEDS: 0.9% Saline Lock 10 ML Syringe IV (13:22)
--- NOTE | 2023-04-06 14:05 | CASEMGMT ---
Addendum entered by Malou Henry 04/07/23 10:19: Late entry for 04/06/23 at 1405 Pt became tearful during assessment. Pt states she is now a . She states her passed 3 mos ago. Pt is interested in speaking with SW regarding this. Original Note: RUDI NUNEZ Assessment: Face to Face with pt for initial transition planning/care coordination assessment. RUDI NUNEZ introduced self and role at [facility], pt voices understanding and consents to assessment. Pt is A&O x4 and answers all questions appropriately at this time. Pt sitting up in chair in no distress with son present in room. Pt agreeable to assessment with son present. Care providers, pharmacy, and demographics verified/updated. Admitting Dx: NSTEMI PCP:Mateo Specialists: ASHLEY, cardio; jordan Srinivasan; Preferred Pharmacy: [facility] Insurance: [facility], [place] Prescription Benefit: yes LNOK: Cornelia Junior, dtr; Sharonda Junior dtr; Clive Cunningham, son Living Arrangements: Pt lives with son in a single story home with 2 steps to enter. Pt reports she is I in ADL's and denies concerns at home. Pt is requesting shower chair to be delivered to her home. Transportation: Pt does not drive, she uses [employer] through her insurance or her dtr transports her. DME:[facility] with sufficient supply of strips and lancets. Pt has supply of insulin as well. HHC/SNF: Pt has had HHC in the past but is unsure of the name of the agency. Pt denies SNF stays. Pt states no concerns with going home at time of dc. Provided pt with a verbal local in network list of DME companies, pt chose [employer]. Pt states no further concerns/needs. CM to follow. Advised pt to ask CM if any further question/concerns/needs arise, voices understanding. Pt Goal: Home Plan: Home, send referral for shower chair.
--- NOTE | 2023-04-06 14:05 | CRPHASE1 ---
Patient Communication Patient Information Former Patient:: Phase I and Phase II PHII Cardiac Rehab Discussed with Patient:: Yes Guide to Cardiac Rehab Given to Patient:: Yes Cardiac Rehab Facility Choice List Given to Patient:: Yes Communication to Cardiac Rehab Choice Program [facility] CR PHII:: Communication Given to CR Airplane Cover Maker:: Columba Miranda Refer Phase II Cardiac Rehab:: Yes Sessions:: 36 sessions - 3 days/wk, 12 weeks Cardiac Rehabilitation Info Program Information Cardiac Rehabilitation Program Information: Cardiac Rehab The cardiac rehab team at [facility] consists of highly skilled exercise physiologists, nurses, respiratory therapists and physicians working together with you. Our purpose is to help you have a full recovery and achieve the goals you set for yourself. Over the years many of our patients have returned to activities they assumed they would never do again! We can help restore your confidence and motivation to make lifestyle changes that can have a significant impact on your health and quality of life! We can help answer questions and concerns you may have about exercise, lifestyle, medications, diet, stress and anxiety which are common following a hospitalization. WE monitor ECG and vital signs during exercise and discuss your progress with you and report to your physician(s). Cardiac Rehab is proven to help reduce readmissions, improve functional capacity and lower recurrence of problems with your heart. Our Cardiac Rehab program is Certified by the [place] [employer]-Vascular and Pulmonary [employer] (AACVPR) and Accredited by the [place] [employer] through our [facility]. You can contact us at . We invite you to call us with your questions or to get started in our program. If you have other questions or concerns be sure to ask your physician/provider during your follow-up visit. WE look forward to seeing you!
--- NOTE | 2023-04-06 14:06 | CRPH1.INST_ITS ---
General Education Discussed with Patient CAD and cardiac anatomy and function:: Patient communicates acknowledgment Explanation of diagnoses and procedures:: Patient communicates acknowledgment Sign/Symptoms of HI:: Patient communicates acknowledgment Antiplatelet therapy: Patient communicates acknowledgment Proper use of NTG-SL: Patient communicates acknowledgment Emergency procedures and activation of EMS: Patient communicates acknowledgment Compliance of all prescribed medications: Patient communicates acknowledgment Smoking Risk Factors Patient Nicotine/Smoking Risk Factors Are:: Cigarettes Recommendations Recommendations Include:: Smoking cessation strategies/Smoking packet, Second- hand smoke recommendation, Participation in a smoking cessation program and Previous smoker; encourage continued cessation Response Code Nicotine/Smoking Response Code:: Patient communicates acknowledgment Dyslipidemia Risk Factors Patient Dyslipidemia Risk Factors Are:: Total Cholesterol, Triglycerides, HDL and LDL Recommendations Recommendations Include:: Lipid profile provided, Reviewed NCEP/ATP guidelines and Therapeutic Lifestyle Change dietary guidelines Response Code Dyslipidemia Response Code:: Patient communicates acknowledgment Overweight/Obesity Risk Factors Patient Overweight/Obesity Risk Factors Are:: Obesity - > or = 30 Recommendations Recommendations Include:: Weight loss of 5-10%, Reduced calorie diet and Exercise 5-7 times/week Response Code Overweight/Obesity:: Patient communicates acknowledgment Hypertension Recommendations Recommendations Include:: BP <130/80 if diabetic, DASH dietary guidelines, Decrease/maintain normal body weight and Moderation of ETOH Response Code Hypertension:: Patient communicates acknowledgment Heart Disease Risk Factors Patient Heart Disease Risk Factors Are:: Previous cardiac event Response Code Heart Disease Response Code:: Patient communicates acknowledgment Diabetes Risk Factors Patient Diabetes Risk Factors Are:: Elevated blood sugars and Post-op hyperglycemia Recommendations Recommendations Include:: Maintain fasting blood sugars 70-110 md/dL, Maintain HgbA1c of 6% or less, Monitor blood sugar as prescribed, Diabetic dietary guidelines and Decrease/maintain body weight Response Code Diabetes:: Patient communicates acknowledgment Sedentary Risk Factors Patient Sedentary Risk Factors Are:: Lack of regular exercise Recommendations Recommendations Include:: Aerobic exercise 5-7 times/week for 20-30 minutes continuously, Benefits of regular exercise, Discussed home walking program and Monitored Outpatient Cardiac Rehab Response Code Sedentary Response Code:: Patient communicates acknowledgment Stress Recommendations Recommendations Include:: Identification of stressors, and assessment of coping skills and Stress management techniques Response Code Stress Response Code:: Patient communicates acknowledgment
--- NOTE | 2023-04-06 14:21 | CHAPLAIN ---
Type of Pastoral Visit _x__ Initial Visit ___ Follow-up Visit ___ On-call Visit ___ General Patient Visit ___ Spiritual Assessment ___ Family Conference ___ Bereavement ___ Rapid Response ___ Code Blue ___ Other (describe below) Pastoral Care Referral From _x__ Patient ___ Family ___ Nurse ___ Physician ___ Manager Animation ___ Steam Fitter Supervisor ___ Other (describe below) Sacrament/Intervention _x__ Active listening ___ Anointing ___ Shinto _x__ Bereavement ___ Communion _x__ Iza exploration ___ _x__ Life review _x__ Prayer ___ Reconciliation ___ Sacrament of Sick _x__ Supportive presence ___ Wedding ___ Other (describe below) Pastoral Comments patient had a heart cath and has her father and sister in the room; sister states that pt just lost her in a couple of months ago and pt begins to cry; offer of support and talk continued about her grief; family members express a iza in God that helps them; offer of prayer support welcomed; ongoing support for pt is offered
[2023-04-06] MEDS: LORazepam 0.5 MG Tablet PO ×2 (15:43→21:09)
[2023-04-06] MEDS: Influenza Virus Vac Quad 23-24 60 MCG/0.5 ML SYRINGE IM (15:47)
[2023-04-06 17:15] LABS: Bedside Glucose 334 mg/dL (74-106)
[2023-04-06] MEDS: Atorvastatin Calcium 80 MG Tablet PO (21:09)
[2023-04-06 23:36] LABS: Bedside Glucose 471 mg/dL (74-106)
[2023-04-07] VITALS (15 sets, daily range): BP systolic 98–189; BP diastolic 54–107; PULSE 88–104; RESP 10–22; TEMP 36.6–37.1; O2SAT 91–99; BMI 52.2
[2023-04-07] MEDS: Levothyroxine 100 MCG Tablet 200 MCG PO (04:36)
[2023-04-07] MEDS: 0.9% Saline Lock 10 ML Syringe IV (04:36)
[2023-04-07] MEDS: Levothyroxine 75 MCG Tablet PO (04:36)
[2023-04-07 04:48] LABS: Absolute Lymphocyte Count 3.63 X10^3/uL (0.83-4.51); Absolute Neutrophil Count 3.4 X10^3/uL (2.0-7.7); Basophil# 0.06 X10^3/uL; Basophil% 0.7 % (0-1); Eosinophil# 0.45 X10^3/uL; Eosinophils% 5.4 % (0-5); Hematocrit 38.5 % (37-47); Hemoglobin 13.2 g/dL (12.0-15.0); Lymphocyte # 3.63 X10^3/ul (0.83-4.51); Lymphocyte % 43.8 % (19-41); Mean Corp Hgb Conc 34.3 g/dL (32-36); Mean Corpuscular Hgb 33.7 pg (27.0-32.0); Mean Corpuscular Volume 98.2 fL (81-99); Mean Platelet Vol. 10.6 fl (6.2-12.0); Monocyte% 8.5 % (0-10); NRBC Flagged by Analyzer 0 % (0-5); Neutrophil # 3.42 X10^3/uL (2.7-7.7); Neutrophil % 41.4 % (47-70); Platelet Count 246 K/mm3 (150-450); RBC Distribution Width CV 12.3 % (11.6-14.6); RBC Distribution Width SD 44.7 fl (35.1-43.9); Red Blood Count 3.92 M/mm3 (4.2-5.4); White Blood Count 8.3 K/mm3 (4.4-11.0)
--- NOTE | 2023-04-07 05:13 | EKG12_ITS ---
Test Reason : am ekg Blood Pressure : / mmHG Vent. Rate : 092 BPM Atrial Rate : 092 BPM P-R Int : 168 ms QRS Dur : 084 ms QT Int : 362 ms P-R-T Axes : 046 007 011 degrees QTc Int : 447 ms Normal sinus rhythm Low voltage QRS Inferior infarct , age undetermined Abnormal ECG Confirmed by KEIKO SILVA, REHAN ([id number]), supervising editor trailer SABAS VAN ([id number]) on 04/23/2023 2:29:18 PM Referred By: Julio Cesar Confirmed By:REHAN ADEN MD
[2023-04-07 05:25] LABS: ALB/GLOB Ratio 0.9 RATIO (0.9-2.4); AST(SGOT) 19 U/L (15-37); Alanine Aminotransfer ALT/SGPT 19 U/L (13-56); Albumin, Serum 2.9 g/dL (3.2-5.0); Alkaline Phosphatase 102 U/L (45-117); Anion Gap 7 (5-15); BUN 9 mg/dL (7-18); BUN/Creat Ratio 16.7 RATIO (10-20); Calcium,Total 8.3 mg/dL (8.5-10.1); Chloride 104 mmol/L (98-107); Creatinine, Serum 0.54 mg/dL (0.55-1.02); EST Glomerular Filtration Rate 127 mL/min (>60); Est Glom Filt Rate - Afr Amer 154 mL/min (>60); Globulin 3.4 g/dL (2.2-4.2); Glucose 361 mg/dL (74-106); Phosphorus 3.1 mg/dL (2.5-4.9); Potassium 4.2 mmol/L (3.5-5.1); Protein, Total 6.3 g/dL (6.4-8.2); Sodium Level 135 mmol/L (136-145)
--- NOTE | 2023-04-07 07:16 | PCM.PN.HOSP ---
Reason for Visit Reason for Visit: Diagnoses Type 2 diabetes mellitus without complications (04/06/23) Pure hypercholesterolemia, unspecified (04/06/23) Anxiety disorder, unspecified (04/06/23) Essential (primary) hypertension (04/06/23) ST elevation (STEMI) myocardial infarction involving other coronary artery of inferior wall (04/06/23) Non-ST elevation (NSTEMI) myocardial infarction (04/06/23) tube teller (current) use of insulin (04/06/23) Presence of coronary angioplasty implant and graft (04/06/23) Subjective Subjective Patient underwent left heart catheterization with intervention details as below Objective Data Objective Data Vital Signs: Vital Signs Temp Pulse Resp BP Pulse Ox O2 Del Method 97.8 F 93 17 158/95 H 95 Room Air 04/07/23 04:00 04/07/23 07:00 04/07/23 07:00 04/07/23 07:00 04/07/23 07:00 04/07/23 07:00 Oxygen Delivery Method Room Air Weight: 142.4 kg Body Mass Index (BMI) 52.2 Intake & Output: Intake and Output for Last 24 Hours 04/05/23 04/06/23 04/07/23 23:59 23:59 23:59 Intake Total Balance Lab / Micro Data 04/07/23 04:35 04/07/23 04:35 Labs: Laboratory Results - last 24 hr 04/06/23 11:27: POC Glucose 317 H 04/06/23 16:51: POC Glucose 334 H 04/06/23 21:03: POC Glucose 471 H* 04/07/23 04:35: WBC 8.3, RBC 3.92 L, Hgb 13.2, Hct 38.5, MCV 98.2, MCH 33.7 H, MCHC 34.3, RDW Std Deviation 44.7 H, RDW Coeff of Whitney 12.3, Plt Count 246, MPV 10.6, Immature Gran % (Auto) 0.200, Neut % (Auto) 41.4 L, Lymph % (Auto) 43.8 H, [place] % (Auto) 8.5, Eos % (Auto) 5.4 H, Baso % (Auto) 0.7, Absolute Neuts (auto) 3.4, Absolute Lymphs (auto) 3.63, Nucleated RBC % 0, Sodium 135 L, Potassium 4.2, Chloride 104, Carbon Dioxide 24.0, Anion Gap 7, BUN 9, Creatinine 0.54 L, Estim Creat Clear Calc 113.40, Est GFR (MDRD) Af Amer 154, Est GFR (MDRD) Non-Af 127, BUN/Creatinine Ratio 16.7, Glucose 361 H, Calcium 8.3 L, Phosphorus 3.1, Magnesium 2.0, Total Bilirubin 0.60, AST 19, ALT 19, Alkaline Phosphatase 102, Total Protein 6.3 L, Albumin 2.9 L, Globulin 3.4, Albumin/Globulin Ratio 0.9 Radiography Diagnostic Testing: Radiology Impression Echocardiogram 04/06/23 05:55 Interpretation Summary Normal LV size. Moderate eccentric left ventricular hypertrophy. Left ventricular systolic function is normal. The left ventricular ejection fraction is 55 %. Mitral valve chord calcification noted Contrast injection was performed. Ordering Physician: Gopal Harrell Referring Physician: Carlotta Galindo Performed By: Prema Gee RDCS Physical Exam Narrative GENERAL: cooperative HEENT: Atraumatic; normocephalic EYES; Anicteric, Normal Conjunctiva NECK; supple, normal thyroid, RESPIRATORY: Diminished to auscultation CARDIOVASCULAR: Regular S1 S2, GI: soft, normoactive bowel sounds, : No Renal angle tenderness; EXTREMITIES: No edema, no clubbing, MUSCULOSKELETAL: no muscle wasting NEURO: Awake; no lateralizing signs. SKIN: No Rash PSYCH; Flat affect Assessment & Plan Assessment/Plan (1) NSTEMI (non-ST elevated myocardial infarction): (2) Diabetes: QUALIFIERS: Diabetes mellitus complication status: without complication Diabetes mellitus chinese herbalist insulin use: with chcf use Diabetes mellitus type: type 2 Qualified Code(s): E11.9 - Type 2 diabetes mellitus without complications; Z79.4 - tube teller (current) use of insulin (3) Anxiety: PLAN: Plan 47-year-old lady who presented with chest pain was found to have elevated troponin consistent with acute non-STEMI treatment initiated per protocol admitted to monitored bed for further management 1. Acute non-STEMI Admitted to the intensive care unit started on nitroglycerin drip, drip heparin drip, antiplatelet therapy with Brilinta as well as atorvastatin. Echo ordered consult placed to cardiology ? 04/07/2023; patient underwent left heart catheterization which demonstrated; Normal left main coronary artery.Left anterior descending artery previously stented with minimal in-stent stenosis.The first diagonal vessel previously stented with 80% in-stent stenosis noted. Left circumflex artery with no high-grade stenosis noted. Dominant right coronary artery previously stented with extensive 50% in-stent stenosis throughout the long stents. Mild left ventricular systolic dysfunction estimated at 50%. Based on the above she underwent PCI of the diagonal vessel with stenting Optimization of medical therapy subsequently recommended by cardiology 2. Coronary artery disease ? With previous intervention with multiple stents in the past 3. Lung nodules CTA with indeterminate 7 mm noncalcified pleural-based nodule for which a 6 months follow-up was recommended. Patient to follow-up as recommended. 4. Class II obesity with BMI of 51.8 ? Complicating care weight loss advised 5. Diabetes mellitus type II -patient's oral hypoglycemics held. Placed on long acting insulin, Accu-Cheks a.c. and at bedtime and covered with sliding scale insulin 6. Hypertension - Blood pressure controlled, home medications continued with dose adjustment as needed 7. Hypothyroidism - Patient is on levothyroxine home dose continued 8. Anxiety ? Did continue with patient's home meds?bupropion 9. GERD ? On PPI 10. DVT prophylaxis ? On heparin Time spent in the patient's overall evaluation,decision-making process, review of diagnostic data, adjustment of management, discussion with other providers, nursing nursing and ancillary staff involved in patient's care documentation, 40 Minutes Charges/Coding Visit Charges Inpatient E&M: 49344 Subs Hosp L2
--- NOTE | 2023-04-07 07:41 | PN.CARD_ITS ---
Subjective Subjective Patient seen and evaluated. Sleeping. Not on any IV nitro at this time. Objective Data Vital Signs: Vital Signs Temp Pulse Resp BP Pulse Ox O2 Del Method 97.8 F 93 17 158/95 H 95 Room Air 04/07/23 04:00 04/07/23 07:00 04/07/23 07:00 04/07/23 07:00 04/07/23 07:00 04/07/23 07:00 Oxygen Delivery Method Room Air Weight: 313 lb 15.012 oz Body Mass Index (BMI) 52.2 Intake & Output: Intake and Output for Last 24 Hours 04/05/23 04/06/23 04/07/23 23:59 23:59 23:59 Intake Total Balance Lab / Micro Data 04/07/23 04:35 04/07/23 04:35 Labs: Laboratory Results - last 24 hr 04/06/23 11:27: POC Glucose 317 H 04/06/23 16:51: POC Glucose 334 H 04/06/23 21:03: POC Glucose 471 H* 04/07/23 04:35: WBC 8.3, RBC 3.92 L, Hgb 13.2, Hct 38.5, MCV 98.2, MCH 33.7 H, MCHC 34.3, RDW Std Deviation 44.7 H, RDW Coeff of Whitney 12.3, Plt Count 246, MPV 10.6, Immature Gran % (Auto) 0.200, Neut % (Auto) 41.4 L, Lymph % (Auto) 43.8 H, [place] % (Auto) 8.5, Eos % (Auto) 5.4 H, Baso % (Auto) 0.7, Absolute Neuts (auto) 3.4, Absolute Lymphs (auto) 3.63, Nucleated RBC % 0, Sodium 135 L, Potassium 4.2, Chloride 104, Carbon Dioxide 24.0, Anion Gap 7, BUN 9, Creatinine 0.54 L, Estim Creat Clear Calc 113.40, Est GFR (MDRD) Af Amer 154, Est GFR (MDRD) Non-Af 127, BUN/Creatinine Ratio 16.7, Glucose 361 H, Calcium 8.3 L, Phosphorus 3.1, Magnesium 2.0, Total Bilirubin 0.60, AST 19, ALT 19, Alkaline Phosphatase 102, Total Protein 6.3 L, Albumin 2.9 L, Globulin 3.4, Albumin/Globulin Ratio 0.9 Cardiology Labs/Tests 04/07/23 04:35: WBC 8.3, RBC 3.92 L, Hgb 13.2, Hct 38.5, MCV 98.2, MCH 33.7 H, MCHC 34.3, Plt Count 246, MPV 10.6, Immature Gran % (Auto) 0.200, Neut % (Auto) 41.4 L, Lymph % (Auto) 43.8 H, [place] % (Auto) 8.5, Eos % (Auto) 5.4 H, Baso % (Auto) 0.7, Absolute Neuts (auto) 3.4, Nucleated RBC % 0, Sodium 135 L, Potassium 4.2, Chloride 104, Carbon Dioxide 24.0, Anion Gap 7, BUN 9, Creatinine 0.54 L, Est GFR (MDRD) Af Amer 154, Est GFR (MDRD) Non-Af 127, BUN/Creatinine Ratio 16.7, Glucose 361 H, Calcium 8.3 L, Phosphorus 3.1, Magnesium 2.0, Total Bilirubin 0.60 Rhythm: EKG: ECHO: Stress Test: Cardiac Cath: PCI: CT Surgery: Holter monitor: EPS: PPM: CXR: Chest CT Scan: Radiography Diagnostic Testing: Radiology Impression Echocardiogram 04/06/23 05:55 Interpretation Summary Normal LV size. Moderate eccentric left ventricular hypertrophy. Left ventricular systolic function is normal. The left ventricular ejection fraction is 55 %. Mitral valve chord calcification noted Contrast injection was performed. Ordering Physician: Gopal Harrell Referring Physician: Carlotta Galindo Performed By: Prema Gee RDCS Physical Exam Const alert, oriented x3 and no apparent distress General Appearance: cooperative HEENT hearing grossly normal bilaterally Head and Scalp: atraumatic Eyes EOMs intact bilaterally Neck General: normal visual inspection Chest inspection of chest normal and palpation of chest normal Resp normal respiratory effort Auscultation: clear to auscultation bilaterally Cardio regular rate, regular rhythm, S1 normal heart sound and S2 normal heart sound Jugular Venous Distention: JVD GI normal to inspection, nondistended, normoactive bowel sounds Extremity normal capillary refill and no pedal edema Peripheral Pulses: Yes pulses 2+ throughout and femoral pulses present Skin no rashes or lesions noted Neuro oriented x3 and CN's II-XII intact bilaterally Psych Appearance: grossly normal and appropriate Assessment & Plan Assessment/Plan (1) ST elevation myocardial infarction (STEMI) of inferior wall: PLAN: She has a non-ST elevation myocardial infarction. She has multiple stents placed in the past. Cardiac catheterization demonstrated the following: Normal left main coronary artery. Left anterior descending artery previously stented with minimal in-stent stenosis. The first diagonal vessel previously stented with 80% in-stent stenosis noted. Left circumflex artery with no high-grade stenosis noted. Dominant right coronary artery previously stented with extensive 50% in-stent s tenosis throughout the long stents. Mild left ventricular systolic dysfunction estimated at 50%. Based on the above she underwent PCI of the diagonal vessel with stenting We will recommend maximization of medical therapy. (2) History of coronary artery stent placement: PLAN: She is status post angioplasty and stenting as noted above. I would not suggest that we make any changes. We will review and revisit her stents. (3) Essential hypertension: PLAN: Blood pressure appears to be under fair control at the present time. We will recommend the addition of amlodipine 5 mg a day to her regimen. (4) Hypercholesterolemia: PLAN: She will continue with aggressive risk factor modification. PLAN: Plan She can be discharged for outpatient follow-up and management.
[2023-04-07] MEDS: Insulin Lispro 100 UNIT/ML INSULN.PEN SC (08:17)
[2023-04-07] MEDS: Pantoprazole Sodium 40 MG Tablet PO (08:18)
[2023-04-07] MEDS: hydrALAZINE 50 MG Tablet PO (08:18)
[2023-04-07] MEDS: Carvedilol 25 MG Tablet PO (08:18)
[2023-04-07] MEDS: lamoTRIgine 150 MG Tablet 300 MG PO (08:18)
[2023-04-07] MEDS: buPROPion (XL) 300 MG TABLET.XL PO (08:19)
[2023-04-07] MEDS: buPROPion (XL) 150 MG TABLET.XL PO (08:19)
[2023-04-07] MEDS: Aspirin E.C. 81 MG Tablet PO (08:21)
[2023-04-07] MEDS: TICAGRELOR 90 MG TABLET PO (08:21)
--- NOTE | 2023-04-07 08:30 | PCM.DC.SUM ---
Providers Date of Admission: 04/06/23 Date of Discharge: 04/07/23 Primary Care Physician: Dr. 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 Acute non-STEMI Admitted to the intensive care unit started on nitroglycerin drip, drip heparin drip, antiplatelet therapy with Brilinta as well as atorvastatin. Echo ordered consult placed to cardiology ? 04/07/2023; patient underwent left heart catheterization which demonstrated; Normal left main coronary artery.Left anterior descending artery previously stented with minimal in-stent stenosis.The first diagonal vessel previously stented with 80% in-stent stenosis noted. Left circumflex artery with no high-grade stenosis noted. Dominant right coronary artery previously stented with extensive 50% in-stent stenosis throughout the long stents. Mild left ventricular systolic dysfunction estimated at 50%. Based on the above she underwent PCI of the diagonal vessel with stenting Optimization of medical therapy subsequently recommended by cardiology 2. Coronary artery disease ? With previous intervention with multiple stents in the past 3. Lung nodules CTA with indeterminate 7 mm noncalcified pleural-based nodule for which a 6 months follow-up was recommended. Patient to follow-up as recommended. 4. Class II obesity with BMI of 51.8 ? Complicating care weight loss advised 5. Diabetes mellitus type II -patient's oral hypoglycemics held. Placed on long acting insulin, Accu-Cheks a.c. and at bedtime and covered with sliding scale insulin 6. Hypertension - Blood pressure controlled, home medications continued with dose adjustment as needed 7. Hypothyroidism - Patient is on levothyroxine home dose continued 8. Anxiety ? Did continue with patient's home meds?bupropion 9. GERD ? On PPI 10. DVT prophylaxis ? On heparin Time spent in the patient's overall evaluation,decision-making process, review of diagnostic data, adjustment of management, discussion with other providers, nursing nursing and ancillary staff involved in patient's care documentation, 40 Minutes Medications at Discharge Home Medications albuterol sulfate 90 mcg/actuation aerosol inhaler 1 - 2 puff inhalation Q4H PRN PRN Wheezing ##1 10/15/15 budesonide-formoterol HFA 160 mcg-4.5 mcg/actuation aerosol inhaler 2 puff PO BID breathing 05/07/19 insulin regular human 100 unit/mL injection solution 24 units subcut TIDCM diabetes 05/07/19 bupropion HCl 300 mg 24 hr tablet, extended release 300 mg PO DAILY MOOD 09/25/20 pantoprazole 40 mg tablet,delayed release 40 mg PO DAILY acid reflux #30 tabs 11/07/20 insulin NPH isoph U-100 human 100 unit/mL (3 mL) subcutaneous pen 24 units subcut BIDAC diabetes 04/06/21 metoclopramide HCl 5 mg tablet (Reglan) 5 mg PO TID PRN PRN nausea/vomiting #10 tabs 04/20/21 lorazepam 1 mg tablet 0.5 - 1 mg PO TID PRN Anxiety 04/24/21 ondansetron 4 mg disintegrating tablet 4 mg PO Q8H PRN nausea and vomiting #10 tabs 12/31/21 atorvastatin 80 mg tablet 80 mg PO QHS cholesterol #90 tabs 03/25/22 cyclobenzaprine 10 mg tablet 5 mg PO TID PRN PRN Muscle Spasm 03/25/22 hydralazine 50 mg tablet 50 mg PO BID blood pressure #180 tabs 03/25/22 lamotrigine 200 mg tablet 300 mg PO DAILY 03/25/22 levothyroxine 200 mcg tablet 200 mcg PO DAILY 03/25/22 levothyroxine 75 mcg tablet 75 mcg PO DAILY 03/25/22 lisinopril 40 mg tablet 40 mg PO DAILY blood pressure #90 tabs 03/25/22 ticagrelor 90 mg tablet 90 mg PO BID stents #180 tabs 03/25/22 bupropion HCl 150 mg 24 hr tablet, extended release 150 mg PO DAILY 04/06/23 carvedilol 25 mg tablet 25 mg PO Q12H 04/06/23 gabapentin 100 mg capsule 100 mg PO TID PRN nerve pain 04/06/23 levothyroxine 300 mcg tablet 300 mcg PO .thursday04/06/23 aspirin 81 mg tablet,delayed release 81 mg PO BREAKFAST #90 tabs 04/07/23 Hospital Course Procedures Cardiac catheterization Summary of Care Provided Minutes Spent on Discharge: 35 Physical Exam Narrative GENERAL: cooperative HEENT: Atraumatic; normocephalic EYES; Anicteric, Normal Conjunctiva NECK; supple, normal thyroid, RESPIRATORY: Diminished to auscultation CARDIOVASCULAR: Regular S1 S2, GI: soft, normoactive bowel sounds, : No Renal angle tenderness; EXTREMITIES: No edema, no clubbing, MUSCULOSKELETAL: no muscle wasting NEURO: Awake; no lateralizing signs. SKIN: No Rash PSYCH; Flat affect Weight / BMI Weight Weight: 142.4 kg Body Mass Index (BMI) 52.2 ABG / Lab / Microbiology Data 04/07/23 04:35 04/07/23 04:35 Laboratory: Laboratory Results - last 24 hr 04/06/23 11:27: POC Glucose 317 H 04/06/23 16:51: POC Glucose 334 H 04/06/23 21:03: POC Glucose 471 H* 04/07/23 04:35: WBC 8.3, RBC 3.92 L, Hgb 13.2, Hct 38.5, MCV 98.2, MCH 33.7 H, MCHC 34.3, RDW Std Deviation 44.7 H, RDW Coeff of Whitney 12.3, Plt Count 246, MPV 10.6, Immature Gran % (Auto) 0.200, Neut % (Auto) 41.4 L, Lymph % (Auto) 43.8 H, [place] % (Auto) 8.5, Eos % (Auto) 5.4 H, Baso % (Auto) 0.7, Absolute Neuts (auto) 3.4, Absolute Lymphs (auto) 3.63, Nucleated RBC % 0, Sodium 135 L, Potassium 4.2, Chloride 104, Carbon Dioxide 24.0, Anion Gap 7, BUN 9, Creatinine 0.54 L, Estim Creat Clear Calc 113.40, Est GFR (MDRD) Af Amer 154, Est GFR (MDRD) Non-Af 127, BUN/Creatinine Ratio 16.7, Glucose 361 H, Calcium 8.3 L, Phosphorus 3.1, Magnesium 2.0, Total Bilirubin 0.60, AST 19, ALT 19, Alkaline Phosphatase 102, Total Protein 6.3 L, Albumin 2.9 L, Globulin 3.4, Albumin/Globulin Ratio 0.9 Radiography Diagnostic Testing: Radiology Impression Echocardiogram 04/06/23 05:55 Interpretation Summary Normal LV size. Moderate eccentric left ventricular hypertrophy. Left ventricular systolic function is normal. The left ventricular ejection fraction is 55 %. Mitral valve chord calcification noted Contrast injection was performed. Ordering Physician: Gopal Harrell Referring Physician: Carlotta Galindo Performed By: Prema Gee RDCS D/C Instructions Discharge Diet: Low fat / Low cholesterol and 1800 Calorie Control Diet Discharge Activity: Return to Normal Activity Call your doctor if you observe: Fever of 101 or Higher, Shortness of breath, Fainting spells and Chest pain Meaningful Use Info Meaningful Use Diagnoses (Choose all that apply): AMI AMI/Post PCI/Angioplasty Aspirin given w/in 24hrs of arrival?: Yes ASA at discharge?: Yes Antiplatelet Therapy at Discharge:: Yes Statins at discharge?: Yes William/ARB at discharge?: Yes Beta Monisha at discharge?: Yes Done w/ Acute DE measure.: Yes Documented LVEF (%): 55 Discharge Plan Admission Admit Date/Time: 04/06/23 02:31 Attending Provider: Alf Worley Primary Care Provider: Carlotta Galindo Consulting Providers: Mali Valente; Gopal Harrell Discharge Orders/Prescriptions Prescriptions: New aspirin 81 mg Tablet,Delayed Release (Dr/Ec) 81 mg PO BREAKFAST Qty: 90 0RF Continued levothyroxine 75 mcg tablet 75 mcg PO DAILY levothyroxine 200 mcg tablet 200 mcg PO DAILY lamotrigine 200 mg tablet 300 mg PO DAILY hydralazine 50 mg tablet 50 mg PO BID Qty: 180 3RF lisinopril 40 mg tablet 40 mg PO DAILY Qty: 90 3RF atorvastatin 80 mg tablet 80 mg PO QHS Qty: 90 3RF ticagrelor 90 mg tablet 90 mg PO BID Qty: 180 3RF albuterol sulfate 1 INHALER inhaler 1 - 2 puff inhalation Q4H PRN PRN (Reason: Wheezing) Qty: 1 0RF Patient Comments: asthma budesonide-formoterol 160-4.5MCG inhaler 2 puff PO BID insulin regular human 100 UNIT/ML solution 24 units subcut TIDCM cyclobenzaprine 10 mg tablet 5 mg PO TID PRN PRN (Reason: Muscle Spasm) bupropion HCl 300 MG tablet extended release 24 hr 300 mg PO DAILY insulin NPH isoph U-100 human 100 UNITS/ML insulin pen 24 units subcut BIDAC Rx Instructions: breakfast and supper metoclopramide HCl [Reglan] 5 mg tablet 5 mg PO TID PRN PRN (Reason: nausea/vomiting) Qty: 10 0RF lorazepam 1 mg tablet 0.5 - 1 mg PO TID PRN (Reason: Anxiety) Patient Comments: Please take half to one tablet daily as needed for anxiety ondansetron 4 mg tablet,disintegrating 4 mg PO Q8H PRN (Reason: nausea and vomiting) Qty: 10 0RF levothyroxine 300 mcg tablet 300 mcg PO .thursday Patient Comments: Take 1 tablet by mouth daily before breakfast on Sundays. (Other days of the week take 275mcg once daily) bupropion HCl 150 mg tablet extended release 24 hr 150 mg PO DAILY Patient Comments: take 1 tablet by mouth once daily ALONG WITH BUPROPRION 300 MG carvedilol 25 mg tablet 25 mg PO Q12H Patient Comments: Take 1 tablet by mouth twice daily. gabapentin 100 mg capsule 100 mg PO TID PRN (Reason: nerve pain) Patient Comments: TAKE 1 CAPSULE BY MOUTH before bed for a few days, increase to 1 IN THE MORNING and 1 IN THE EVENING for a few days, then 1 THREE TIMES DAILY pantoprazole 40 mg tablet,delayed release (DR/EC) 40 mg PO DAILY Qty: 30 11RF Referrals / Follow Up: Carlotta Galindo MD [Primary Care Provider] - Within 2 Weeks Wale Busby MD [Med Staff - Active Staff] - Within 2 Weeks Disposition Disposition (needs filled in before D/C Order can be placed): Home, Self Care Charges/Coding Visit Charges Inpatient E&M: 06977 Disch Hosp >30min
[2023-04-07 08:42] LABS: Bedside Glucose 408 mg/dL (74-106)
--- NOTE | 2023-04-07 09:00 | CASEMGMT ---
RN MAYRA updated NITZA Sarmiento that pt would like to speak with her regarding her 's recent passing.
--- NOTE | 2023-04-07 09:40 | CASEMGMT ---
SW was requested to speak with patient for support and resources after losing her . SW met with patient. Introduced self and role at [facility]. SW sat down with patient while she shared her story of what happened to her . SW listened and provided emotional support. SW assured patient her feelings and thoughts were a normal part of the grieving process. Patient sees a counselor, but has not been able to see her due to her counselor's full schedule. SW provided patient with a pamphlet for [facility]'s bereavement services. SW strongly encouraged she contact Hospice as they specialize in coping with grief. Patient was thankful for SW's visit and resources. Guillermina Pina DESK [employer] PUBLISHER [employer]
[2023-04-07] MEDS: Insulin Glargine-YFGN 100 UNIT/ML Pen 20 UNIT SC (09:41)
[2023-04-07] MEDS: LORazepam 1 MG Tablet PO (09:42)
[2023-04-07] MEDS: Lisinopril 40 MG Tablet PO (09:42)
--- NOTE | 2023-04-07 10:00 | NURSING ---
Patient stated she will not have ride at discharge until around 3pm. Called hospital van to check availability on transport, no van available until 1530 or 1600
--- NOTE | 2023-04-07 10:20 | CASEMGMT ---
Addendum entered by Malou Henry 04/07/23 10:26: Eliecer called from [facility] and states they do not have shower chairs. RN CM provided pt with rx for shower chair. Pt to obtain on own. Original Note: Referral to [facility] for shower chair sent via [facility] at this time. Pt is aware that this was sent. Pt denies any further homegoing needs.
[2023-04-07] MEDS: amLODIPine 5 MG Tablet PO (10:30)
[2023-04-07 12:38] LABS: Bedside Glucose 444 mg/dL (74-106)
[2023-04-07] MEDS: Insulin Lispro 100 UNIT/ML INSULN.PEN 24 UNIT SC (13:08)
== END 2023-04-07 15:11 | disposition home or self-care (01) | DRG 322 ==
LOC: ED 23:24 → PCU 04-06 02:50 → ICU 04-06 03:34
PROVIDERS: Admitting Provider Hospitalist; Emergency Provider Emergency Medicine; PCP Internal Medicine; Visit Provider Internal Medicine
DX: I21.19 ST elevation (STEMI) myocardial infarction involving other coronary artery of inferior wall (principal); T82.855A Stenosis of coronary artery stent, initial encounter; I50.22 Chronic systolic (congestive) heart failure; Z68.43 Body mass index [BMI] 50.0-59.9, adult; I11.0 Hypertensive heart disease with heart failure; E11.65 Type 2 diabetes mellitus with hyperglycemia; E66.01 Morbid (severe) obesity due to excess calories; Z79.4 Long term (current) use of insulin; E03.9 Hypothyroidism, unspecified; E78.00 Pure hypercholesterolemia, unspecified; I25.10 Atherosclerotic heart disease of native coronary artery without angina pectoris; F17.210 Nicotine dependence, cigarettes, uncomplicated; I25.2 Old myocardial infarction; X58.XXXA Exposure to other specified factors, initial encounter; F41.1 Generalized anxiety disorder; R91.1 Solitary pulmonary nodule; Z63.4 Disappearance and death of family member; Z95.5 Presence of coronary angioplasty implant and graft; Z79.02 Long term (current) use of antithrombotics/antiplatelets; Z79.899 Other long term (current) drug therapy; Z23 Encounter for immunization; Z80.1 Family history of malignant neoplasm of trachea, bronchus and lung
CPT/HCPCS: 71045; 71275; 80048; 80053; 80061; 82962; 83735; 83880; 84100; 84484; 85025; 85379; 85730; 92928; 93005; 93306; 93458; 94640; 97802; 99152; 99153; 99285; J7030; J7040; Q9957; Q9967; 90686; A4216; C1725; C1769; C1874; C1887; C1894; C8929; C9600

== ENCOUNTER → 2023-04-30 | Outpatient (CLI) | payer MEDICARE, MEDICAID, SELFPAY ==
[2019-05-06 13:18] VITALS: BMI 56.7
[2023-04-30 12:08] LABS: Absolute Lymphocyte Count 3.29 X10^3/uL (0.83-4.51); Absolute Neutrophil Count 6.9 X10^3/uL (2.0-7.7); Basophil% 0.8 % (0-1); Eosinophils% 4.9 % (0-5); Hematocrit 38.6 % (37-47); Lymphocyte # 3.29 X10^3/ul (0.83-4.51); Lymphocyte % 26.8 % (19-41); Mean Corp Hgb Conc 33.7 g/dL (32-36); Mean Corpuscular Hgb 32.8 pg (27.0-32.0); Mean Corpuscular Volume 97.5 fL (81-99); Mean Platelet Vol. 11.2 fl (6.2-12.0); Monocyte# 1.14 X10^3/uL; Monocyte% 9.3 % (0-10); NRBC Flagged by Analyzer 0 % (0-5); Neutrophil # 6.89 X10^3/uL (2.7-7.7); Neutrophil % 56.2 % (47-70); Platelet Count 265 K/mm3 (150-450); RBC Distribution Width CV 12.2 % (11.6-14.6); RBC Distribution Width SD 43.8 fl (35.1-43.9); Red Blood Count 3.96 M/mm3 (4.2-5.4); White Blood Count 12.3 K/mm3 (4.4-11.0)
[2023-04-30 13:06] LABS: BNP,B-Type NATRIURETIC PEPTIDE 83.8 pg/mL (0-100)
[2023-04-30 13:10] LABS: Anion Gap 7 (5-15); BUN 14 mg/dL (7-18); BUN/Creat Ratio 19.1 RATIO (10-20); Calcium,Total 8.6 mg/dL (8.5-10.1); Chloride 105 mmol/L (98-107); Creatinine, Serum 0.73 mg/dL (0.55-1.02); EST Glomerular Filtration Rate 89 mL/min (>60); Est Glom Filt Rate - Afr Amer 108 mL/min (>60); Glucose 427 mg/dL (74-106); Potassium 4.3 mmol/L (3.5-5.1); Sodium Level 136 mmol/L (136-145); Thyroid Stim Hormone (TSH) 0.37 uIU/mL (0.358-3.74)
== END | disposition home or self-care (01) ==
LOC: LAB 11:26
PROVIDERS: PCP Internal Medicine; Referring Provider Nurse Practitioner Gerontology; Visit Provider Nurse Practitioner Gerontology
DX: R06.09 Other forms of dyspnea (principal); R53.83 Other fatigue
CPT/HCPCS: 36415; 80048; 83880; 84443; 85025

== ENCOUNTER 2023-06-11 18:33 | Observation (INO) | payer MEDICARE, MEDICAID, SELFPAY ==
[2019-05-06 13:18] VITALS: BMI 56.7
[2023-06-11 18:34] VITALS: BP 157/105; PULSE 132; RESP 16; TEMP 36.6; O2SAT 98; BMI 50.3
--- NOTE | 2023-06-11 19:22 | RAD_ITS ---
INDICATION: chest pain EXAMINATION/TECHNIQUE: X-RAY - XR Chest 1 View COMPARISON: 04/05/2023 FINDINGS: LINES/DEVICES: None. LUNGS: The lungs are well expanded. No consolidation, edema or effusion. Stable proximal 1 cm calcified granuloma in the right lung. No pneumothorax. MEDIASTINUM AND CARDIOVASCULAR STRUCTURES: Cardiac silhouette not enlarged. Central airways and mediastinal contour are unremarkable. BONES AND SOFT TISSUES: Unremarkable. RAD/Chest 1 View (Portable) IMPRESSION: No acute pulmonary finding. Electronically Signed: Alf Shepherd MD at 19:44 EST ,
[2023-06-11 20:27] LABS: Absolute Lymphocyte Count 4.02 X10^3/uL (0.83-4.51); Absolute Neutrophil Count 5.7 X10^3/uL (2.0-7.7); Basophil# 0.07 X10^3/uL; Basophil% 0.6 % (0-1); Eosinophil# 0.59 X10^3/uL; Eosinophils% 5.2 % (0-5); Hematocrit 40.4 % (37-47); Hemoglobin 14.1 g/dL (12.0-15.0); Lymphocyte # 4.02 X10^3/ul (0.83-4.51); Lymphocyte % 35.4 % (19-41); Mean Corp Hgb Conc 34.9 g/dL (32-36); Mean Corpuscular Hgb 32.9 pg (27.0-32.0); Mean Corpuscular Volume 94.4 fL (81-99); Mean Platelet Vol. 10.4 fl (6.2-12.0); Monocyte# 0.96 X10^3/uL; Monocyte% 8.4 % (0-10); NRBC Flagged by Analyzer 0 % (0-5); Neutrophil # 5.71 X10^3/uL (2.7-7.7); Neutrophil % 50.2 % (47-70); Platelet Count 291 K/mm3 (150-450); RBC Distribution Width CV 12.4 % (11.6-14.6); RBC Distribution Width SD 42.7 fl (35.1-43.9); Red Blood Count 4.28 M/mm3 (4.2-5.4); White Blood Count 11.4 K/mm3 (4.4-11.0)
--- NOTE | 2023-06-11 20:55 | EDS_ITS ---
HPI History of Present Illness Chief Complaint: Chest Pain Narrative Narrative: 47-year-old female with history of chest pain, CAD, hypertension, hyperlipidemia, diabetes. She states she had cardiac stents placed by cardiology here at [facility] in April and she believes it was on the third. Patient dates she had 3 MIs in the past. Patient started having pain in her chest yesterday in the left upper chest radiating to the left arm. It started at 2 PM. She took a nitroglycerin because she was out shopping and she states this controlled the pain somewhat. Her pain is 5-1/2-6 on the lower pain side. It is 9 on the higher side. States pain has been there all day today as well. Denies lightheadedness, dizziness, nausea. She states she feels generally rundown. PFSH [facility] Medical History Abdominal pain Anxiety Asthma Atherosclerotic heart disease of [place] coronary artery without angina pectoris Blood disorder Chest pain of uncertain etiology CHF (congestive heart failure) Chronic obstructive pulmonary disease Chronic pain COVID-19 Current use of insulin Depression Diabetes Diabetes Diabetes mellitus, type II BULLOCK (dyspnea on exertion) Dyspnea Essential hypertension Failure of outpatient treatment Fatigue GERD (gastroesophageal reflux disease) Heart attack High cholesterol History of anxiety History of stress test HTN (hypertension) Hypercholesterolemia Hypothyroidism Irregular heartbeat Morbid obesity with BMI of 50.0-59.9, adult Nicotine dependence Nonadherence to medication GEOVANI (obstructive sleep apnea) Sinus bradycardia by electrocardiogram Sleep apnea Sleep-disordered breathing Smoker ST elevation myocardial infarction (STEMI) of inferior wall Home Medications albuterol sulfate 90 mcg/actuation aerosol inhaler 1 - 2 puff inhalation Q4H PRN PRN Wheezing ##1 10/15/15 [Rx Last Taken 10/19/20] budesonide-formoterol HFA 160 mcg-4.5 mcg/actuation aerosol inhaler 2 puff PO BID breathing 05/07/19 [History Last Taken 10/20/20] insulin regular human 100 unit/mL injection solution 24 units subcut TIDCM diabetes 05/07/19 [History Last Taken 10/20/20] bupropion HCl 300 mg 24 hr tablet, extended release 300 mg PO DAILY MOOD 09/25/20 [History Last Taken 10/20/20] insulin NPH isoph U-100 human 100 unit/mL (3 mL) subcutaneous pen 24 units subcut BIDAC diabetes 04/06/21 [History Last Taken Unknown] metoclopramide HCl 5 mg tablet (Reglan) 5 mg PO TID PRN PRN nausea/vomiting #10 tabs 04/20/21 [Rx Last Taken Unknown] lorazepam 1 mg tablet 0.5 - 1 mg PO TID PRN Anxiety 04/24/21 [History Last Taken Unknown] ondansetron 4 mg disintegrating tablet 4 mg PO Q8H PRN nausea and vomiting #10 tabs 12/31/21 [Rx Last Taken Unknown] atorvastatin 80 mg tablet 80 mg PO QHS cholesterol #90 tabs 03/25/22 [Rx Last Taken Unknown] cyclobenzaprine 10 mg tablet 5 mg PO TID PRN PRN Muscle Spasm 03/25/22 [History Last Taken Unknown] hydralazine 50 mg tablet 50 mg PO BID blood pressure #180 tabs 03/25/22 [Rx Last Taken Unknown] lamotrigine 200 mg tablet 300 mg PO DAILY 03/25/22 [History Last Taken Unknown] levothyroxine 200 mcg tablet 200 mcg PO DAILY 03/25/22 [History Last Taken Unknown] levothyroxine 75 mcg tablet 75 mcg PO DAILY 03/25/22 [History Last Taken Unknown] bupropion HCl 150 mg 24 hr tablet, extended release 150 mg PO DAILY 04/06/23 [History Last Taken Unknown] carvedilol 25 mg tablet 25 mg PO Q12H 04/06/23 [History Last Taken Unknown] gabapentin 100 mg capsule 100 mg PO TID PRN nerve pain 04/06/23 [History Last Taken Unknown] levothyroxine 300 mcg tablet 300 mcg PO .thursday04/06/23 [History Last Taken Unknown] amlodipine 5 mg tablet 5 mg PO DAILY #90 tabs 04/07/23 [Rx Last Taken Unknown] aspirin 81 mg tablet,delayed release 81 mg PO BREAKFAST #90 tabs 04/07/23 [Rx Last Taken Unknown] blood pressure monitor #1 ea 04/30/23 [Rx Last Taken Unknown] hydrochlorothiazide 25 mg tablet 25 mg PO DAILY #30 tabs 04/30/23 [Rx Last Taken Unknown] lisinopril 40 mg tablet 40 mg PO DAILY blood pressure #90 tabs 04/30/23 [Rx Last Taken Unknown] nitroglycerin 0.4 mg sublingual tablet 0.4 mg sublingual Q5-15M PRN chest pain #25 tabs 04/30/23 [Rx Last Taken Unknown] pantoprazole 40 mg tablet,delayed release 40 mg PO DAILY acid reflux #30 tabs 04/30/23 [Rx Last Taken Unknown] ticagrelor 90 mg tablet (Brilinta) See Rx Instructions .Route .COMPLEX #180 tabs 05/15/23 [Rx Last Taken Unknown] Allergy/AdvReac Type Severity Reaction Status Date / Time metformin [From Glucophage] AdvReac Intermediate Diarrhea Verified 06/11/23 18:34 Family History Mother Cancer lung Father Hypertension COPD (chronic obstructive pulmonary disease) Daughter Factor V deficiency Grandmother Cancer lung COPD (chronic obstructive pulmonary disease) Surgical History H/O cardiac catheterization History of back surgery History of delivery History of cholecystectomy History of coronary artery stent placement (04/06/23) History of dilatation and curettage History of left heart catheterization (04/06/23) History of percutaneous transluminal coronary angioplasty (~10/20/20) History of tonsillectomy and adenoidectomy History of tubal ligation S/P tubal ligation Social History household members: none Smoking Status: Former smoker alcohol intake: current alcohol intake frequency: holidays/special occasions only substance use type: does not use caffeine: Yes ROS ROS ED Constitutional Constitutional ED: Denies chills or fever(s) Eyes Eyes: Denies change in vision ENT ENT ED: Denies rhinorrhea or sore throat Cardiovascular Cardiovascular: Reports chest pain Respiratory/Chest Respiratory/Chest: Denies cough or dyspnea Gastrointestinal Gastrointestinal: Denies abdominal pain, nausea or vomiting Genitourinary Genitourinary ED: Denies dysuria or hematuria Musculoskeletal Musculoskeletal: Denies arthralgias or back pain Integumentary Denies abscess or Abrasions Neurologic Neurologic: Denies headache(s) or paresthesias EXAM Physical Exam Const Vital Signs: 06/11/23 18:34 06/11/23 20:33 06/11/23 20:59 Temperature 97.9 F Temperature Source Temporal Pulse Rate 132 H 95 Respiratory Rate 16 18 Respiratory Effort Blood Pressure 157/105 H 143/81 H Blood Pressure Mean 122 101 Pulse Ox 98 99 Oxygen Delivery Method Room Air Room Air Room Air 06/11/23 20:59 06/11/23 21:01 06/11/23 21:08 Temperature Temperature Source Pulse Rate 91 Respiratory Rate Respiratory Effort Normal Non-Labored Blood Pressure 144/85 H 144/85 H Blood Pressure Mean 104 Pulse Ox Oxygen Delivery Method 06/11/23 21:21 06/11/23 22:02 Temperature Temperature Source Pulse Rate 96 96 Respiratory Rate 14 Respiratory Effort Blood Pressure 133/96 H 173/99 H Blood Pressure Mean 123 Pulse Ox 98 Oxygen Delivery Method Room Air Positive well nourished HEENT Reports moist mucous membranes normocephalic Eyes PERRL and EOMs intact bilaterally Resp normal respiratory effort and clear to auscultation bilaterally Cardio regular rate and regular rhythm GI normal to inspection, nondistended, normoactive bowel sounds Neuro oriented x3 and CN's II-XII intact bilaterally Sensorium / Orientation: awake and alert Motor Exam: strength 5/5 throughout Psych mental status grossly normal Skin no rashes or lesions noted Heart Score History: Moderately Suspicious ECG: Normal Age: >45 - <65 years Risk Factors: >/= 3 Risk Factors or History of CAD Score: 4 MDM MDM MDM Narrative Medical decision making narrative: Patient presenting with chest pain. She has history of CAD, cardiac stents. Last stents were in April. Patient states she used nitroglycerin yesterday and it helped. She will be given a nitro trial today. Differential includes ACS, CHF, pneumonia, costochondritis, dehydration, electrolyte normalities. CBC will be obtained to assess white blood cell count, hemoglobin, platelets. BMP to assess renal function electrolytes, glucose. High-sensitivity troponin and EKG to assess for ischemia/dysrhythmia. Chest x-ray to rule out pneumonia. CBC shows normal white blood cell count 1.4. Hemoglobin stable 14.1. Platelets 291. Renal function electrolytes within normal limits. Glucose 239 without anion gap. High-sensitivity troponin 9?troponin 10. EKG on my interpretation shows sinus rhythm at 107 bpm outside ischemic change or ectopy on my interpretation. Chest x-ray shows no acute process to my interpretation. Patient initially given nitroglycerin for pain but this did not help her pain. She was then switched to morphine and had 2 doses of this which did not help her pain either. D-dimer was elevated 1.31 and she had a CTA of the chest which was negative. Patient continues to have chest pain and is concerned about going home. I discussed with the hospitalist for admission and he recommended that I give her some Norvasc 10 mg p.o. and he will admit her to the hospital for monitoring. Impression: 1. Chest pain 2. History of CAD Lab Data Attestation: I reviewed the patient's lab results. Labs: Laboratory Results - last 24 hr 06/11/23 06/11/23 20:14 22:50 WBC 11.4 H RBC 4.28 Hgb 14.1 Hct 40.4 MCV 94.4 MCH 32.9 H MCHC 34.9 RDW Std Deviation 42.7 RDW Coeff of [place] 12.4 Plt Count 291 MPV 10.4 Immature Gran % (Auto) 0.200 Neut % (Auto) 50.2 Lymph % (Auto) 35.4 [place] % (Auto) 8.4 Eos % (Auto) 5.2 H Baso % (Auto) 0.6 Absolute Neuts (auto) 5.7 Absolute Lymphs (auto) 4.02 Nucleated RBC % 0 D-Dimer Quant (PE/DVT) 1.31 H* Sodium 139 Potassium 3.6 Chloride 107 Carbon Dioxide 25.0 Anion Gap 7 BUN 12 Creatinine 0.60 Estim Creat Clear Calc 102.06 Est GFR (MDRD) Af Amer 137 Est GFR (MDRD) Non-Af 113 BUN/Creatinine Ratio 20.0 Glucose 239 H Calcium 8.3 L Troponin I High Sens 9 10 Radiography Diagnostic Testing: Clinical Impression(s) from Imaging Studies Chest X-Ray 06/11/23 19:22 IMPRESSION: No acute pulmonary finding. Electronically Signed: Alf Shepherd MD at 19:44 EST , Chest CTA 06/11/23 21:35 IMPRESSION: 1. No evidence of pulmonary embolus. 2. Stable pleural-based noncalcified nodule in the right middle lobe. There is no acute pulmonary abnormality. Electronically Signed: Efraín Vanessa MD at 22:47 EST , Discharge Plan Triage Chief Complaint: Chest Pain ED Provider: Carl Taylor Dx/Rx/DC Orders Prescriptions: No Action levothyroxine 75 mcg tablet 75 mcg PO DAILY levothyroxine 200 mcg tablet 200 mcg PO DAILY lamotrigine 200 mg tablet 300 mg PO DAILY hydralazine 50 mg tablet 50 mg PO BID Qty: 180 3RF atorvastatin 80 mg tablet 80 mg PO QHS Qty: 90 3RF lisinopril 40 mg tablet 40 mg PO DAILY Qty: 90 3RF pantoprazole 40 mg tablet,delayed release (DR/EC) 40 mg PO DAILY Qty: 30 11RF hydrochlorothiazide 25 mg tablet 25 mg PO DAILY Qty: 30 11RF nitroglycerin 0.4 mg tablet, sublingual 0.4 mg sublingual Q5-15M PRN (Reason: chest pain) Qty: 25 3RF Rx Instructions: do not exceed 3 doses per episode (DME) blood pressure monitor Kit See Rx Instructions .Route Qty: 1 0RF Rx Instructions: As directed albuterol sulfate 1 INHALER inhaler 1 - 2 puff inhalation Q4H PRN PRN (Reason: Wheezing) Qty: 1 0RF Patient Comments: asthma budesonide-formoterol 160-4.5MCG inhaler 2 puff PO BID insulin regular human 100 UNIT/ML solution 24 units subcut TIDCM cyclobenzaprine 10 mg tablet 5 mg PO TID PRN PRN (Reason: Muscle Spasm) bupropion HCl 300 MG tablet extended release 24 hr 300 mg PO DAILY insulin NPH isoph U-100 human 100 UNITS/ML insulin pen 24 units subcut BIDAC Rx Instructions: breakfast and supper metoclopramide HCl [Reglan] 5 mg tablet 5 mg PO TID PRN PRN (Reason: nausea/vomiting) Qty: 10 0RF lorazepam 1 mg tablet 0.5 - 1 mg PO TID PRN (Reason: Anxiety) Patient Comments: Please take half to one tablet daily as needed for anxiety ondansetron 4 mg tablet,disintegrating 4 mg PO Q8H PRN (Reason: nausea and vomiting) Qty: 10 0RF levothyroxine 300 mcg tablet 300 mcg PO .thursday Patient Comments: Take 1 tablet by mouth daily before breakfast on Sundays. (Other days of the week take 275mcg once daily) bupropion HCl 150 mg tablet extended release 24 hr 150 mg PO DAILY Patient Comments: take 1 tablet by mouth once daily ALONG WITH BUPROPRION 300 MG carvedilol 25 mg tablet 25 mg PO Q12H Patient Comments: Take 1 tablet by mouth twice daily. gabapentin 100 mg capsule 100 mg PO TID PRN (Reason: nerve pain) Patient Comments: TAKE 1 CAPSULE BY MOUTH before bed for a few days, increase to 1 IN THE MORNING and 1 IN THE EVENING for a few days, then 1 THREE TIMES DAILY aspirin 81 mg Tablet,Delayed Release (Dr/Ec) 81 mg PO BREAKFAST Qty: 90 0RF amlodipine 5 mg tablet 5 mg PO DAILY Qty: 90 0RF Brilinta 90 mg tablet See Rx Instructions .ROUTE .COMPLEX Qty: 180 3RF Dose Instruction: 03/27/22 TAKE 1 TABLET BY MOUTH TWICE DAILY Rx Instructions: 03/27/22 TAKE 1 TABLET BY MOUTH TWICE DAILY Primary Care Provider: Carlotta Galindo Referrals: Carlotta Galindo MD [Primary Care Provider] -
[2023-06-11 20:59] VITALS: BP 143/81; PULSE 95; RESP 18; O2SAT 99
[2023-06-11 21:00] LABS: Anion Gap 7 (5-15); BUN 12 mg/dL (7-18); Calcium,Total 8.3 mg/dL (8.5-10.1); Chloride 107 mmol/L (98-107); EST Glomerular Filtration Rate 113 mL/min (>60); Est Glom Filt Rate - Afr Amer 137 mL/min (>60); Estimated Creatinine Clearance 102.06 ml/min; Glucose 239 mg/dL (74-106); Potassium 3.6 mmol/L (3.5-5.1); Sodium Level 139 mmol/L (136-145); Troponin-I HS (w/2H Reflex) 9 pg/mL (3.0-54.0)
[2023-06-11 21:01] VITALS: BP 144/85
[2023-06-11 21:08] VITALS: BP 144/85; PULSE 91
[2023-06-11] MEDS: Nitroglycerin SL (ED/IMG/CATH) 0.4 MG TABLET SL ×2 (21:08→21:21)
[2023-06-11 21:21] VITALS: BP 133/96; PULSE 96
[2023-06-11 21:33] LABS: D-Dimer Quantitative (DVT/PE) 1.31 FEU/ug/m (0.27-0.49)
--- NOTE | 2023-06-11 21:35 | CT_ITS ---
EXAM: CT ANGIOGRAPHY CHEST WITHOUT AND WITH INTRAVENOUS CONTRAST CLINICAL INDICATION: pe TECHNIQUE: Helically acquired angiography images were obtained of the chest without and with intravenous contrast. This CT exam was performed using one or more of the following dose reduction techniques: automated exposure control, adjustment of the mA and/or kV according to patient size, and/or use of iterative reconstruction technique. MIP reconstructed images were created and reviewed. CONTRAST: IV 100mL [id number] COMPARISON: 04/06/2023 FINDINGS: PULMONARY ARTERIES: Unremarkable. Normal in caliber. No evidence of pulmonary embolism. AORTA: Unremarkable. Normal in caliber. No evidence of dissection. GREAT VESSELS OF AORTIC ARCH: Unremarkable. Normal in caliber. No evidence of dissection. LUNGS AND PLEURAL SPACES: Calcified granulomas again seen in the right upper lobe. Pleural-based noncalcified nodule in the right middle lobe is unchanged. No pneumothorax. HEART: Unremarkable. Heart size is normal. No pericardial effusion. No significant coronary artery calcifications. MEDIASTINUM: Unremarkable. No mediastinal or hilar adenopathy. Esophagus is unremarkable. No hiatal hernia. THYROID: Unremarkable. No thyroid lesions. BONES/JOINTS: Unremarkable. No suspicious lytic or blastic abnormality. CT/CTA Chest W/WO Contrast IMPRESSION: 1. No evidence of pulmonary embolus. 2. Stable pleural-based noncalcified nodule in the right middle lobe. There is no acute pulmonary abnormality. Electronically Signed: Efraín Vanessa MD at 22:47 EST ,
[2023-06-11] MEDS: Ondansetron 4 MG/2 ML Vial IV ×2 (21:46→23:23)
[2023-06-11] MEDS: Morphine 4 MG/ML Syringe IV ×2 (21:46→23:23)
[2023-06-11 22:02] VITALS: BP 173/99; PULSE 96; RESP 14; O2SAT 98
[2023-06-11 22:24] LABS: Reflex Troponin-HS? (from REC) Y
[2023-06-11 23:25] LABS: Troponin-I HS 10 pg/mL (3.0-54.0)
--- NOTE | 2023-06-11 23:54 | HP.PCM.HOS_ITS ---
HPI - General General Date of Admission: 06/12/23 Date of Service: 06/11/23 Chief Complaint: Chest pain HPI Narrative ADELFO CUNNINGHAM, is a 47 F with a past medical history of essential hypertension, hyperlipidemia, hypothyroidism, diabetes mellitus type 2; of unknown control, morbid obesity; with BMI 50.3 this admission plus obstructive sleep apnea, asthma, remote history of COVID-19, osteoarthritis; with history of lumbar surgery x 2 (), GERD, depression with anxiety, history of tobacco abuse, history of congestive heart failure and extensive history of coronary artery disease; status post SC's x 3 with subsequent stents x 9 with her last stent placed here in April 2023 who presents to the hospital ER complaining of chest pain. Ms. Cunningham reports her symptoms began approximately a day prior to admission at approximately 14:00 hrs. when she developed chest pain at rest that initially started in her left upper chest and then radiated into her left arm with the pain being pressure-like, waxing and waning but getting up to a 9 out of 10 at the worst with pain improved after sublingual nitroglycerin. Unfortunately, her pain has persisted all day as well prompting her to come in for further evaluation and treatment he is concerned that her angina and her easy fatigability are identical to the symptoms heralded her previous stent placement. She denies lightheadedness, dizziness, nausea, vomiting or diaphoresis but she does admit to feeling generally rundown with malaise and she has been very stressed out since the recent of her beloved a few months ago who of cardiac arrest that started at home causing severe grief made worse by the holiday season. In the ER she was noted to have a negative troponin and a nonacute EKG and she was then admitted to the CDU under observation status for a stay that is expected to be less than 48 hours. [facility], [facility] Medical History Abdominal pain Anxiety Asthma Atherosclerotic heart disease of [place] coronary artery without angina pectoris Blood disorder Chest pain of uncertain etiology CHF (congestive heart failure) Chronic obstructive pulmonary disease Chronic pain COVID-19 Current use of insulin Depression Diabetes Diabetes Diabetes mellitus, type II BULLOCK (dyspnea on exertion) Dyspnea Essential hypertension Failure of outpatient treatment Fatigue GERD (gastroesophageal reflux disease) Heart attack High cholesterol History of anxiety History of stress test HTN (hypertension) Hypercholesterolemia Hypothyroidism Irregular heartbeat Morbid obesity with BMI of 50.0-59.9, adult Nicotine dependence Nonadherence to medication GEOVANI (obstructive sleep apnea) Sinus bradycardia by electrocardiogram Sleep apnea Sleep-disordered breathing Smoker ST elevation myocardial infarction (STEMI) of inferior wall Home Medications albuterol sulfate 90 mcg/actuation aerosol inhaler 1 - 2 puff inhalation Q4H PRN PRN Wheezing ##1 10/15/15 [Rx Last Taken 10/19/20] budesonide-formoterol HFA 160 mcg-4.5 mcg/actuation aerosol inhaler 2 puff PO BID breathing 05/07/19 [History Last Taken 10/20/20] insulin regular human 100 unit/mL injection solution 24 units subcut TIDCM diabetes 05/07/19 [History Last Taken 10/20/20] bupropion HCl 300 mg 24 hr tablet, extended release 300 mg PO DAILY MOOD 09/25/20 [History Last Taken 10/20/20] insulin NPH isoph U-100 human 100 unit/mL (3 mL) subcutaneous pen 24 units subcut BIDAC diabetes 04/06/21 [History Last Taken Unknown] metoclopramide HCl 5 mg tablet (Reglan) 5 mg PO TID PRN PRN nausea/vomiting #10 tabs 04/20/21 [Rx Last Taken Unknown] lorazepam 1 mg tablet 0.5 - 1 mg PO TID PRN Anxiety 04/24/21 [History Last Taken Unknown] ondansetron 4 mg disintegrating tablet 4 mg PO Q8H PRN nausea and vomiting #10 tabs 12/31/21 [Rx Last Taken Unknown] atorvastatin 80 mg tablet 80 mg PO QHS cholesterol #90 tabs 03/25/22 [Rx Last Taken Unknown] cyclobenzaprine 10 mg tablet 5 mg PO TID PRN PRN Muscle Spasm 03/25/22 [History Last Taken Unknown] hydralazine 50 mg tablet 50 mg PO BID blood pressure #180 tabs 03/25/22 [Rx Last Taken Unknown] lamotrigine 200 mg tablet 300 mg PO DAILY 03/25/22 [History Last Taken Unknown] levothyroxine 200 mcg tablet 200 mcg PO DAILY 03/25/22 [History Last Taken Unknown] levothyroxine 75 mcg tablet 75 mcg PO DAILY 03/25/22 [History Last Taken Unknown] bupropion HCl 150 mg 24 hr tablet, extended release 150 mg PO DAILY 04/06/23 [H istory Last Taken Unknown] carvedilol 25 mg tablet 25 mg PO Q12H 04/06/23 [History Last Taken Unknown] gabapentin 100 mg capsule 100 mg PO TID PRN nerve pain 04/06/23 [History Last Taken Unknown] levothyroxine 300 mcg tablet 300 mcg PO .thursday04/06/23 [History Last Taken Unknown] amlodipine 5 mg tablet 5 mg PO DAILY #90 tabs 04/07/23 [Rx Last Taken Unknown] aspirin 81 mg tablet,delayed release 81 mg PO BREAKFAST #90 tabs 04/07/23 [Rx Last Taken Unknown] blood pressure monitor #1 ea 04/30/23 [Rx Last Taken Unknown] hydrochlorothiazide 25 mg tablet 25 mg PO DAILY #30 tabs 04/30/23 [Rx Last Taken Unknown] lisinopril 40 mg tablet 40 mg PO DAILY blood pressure #90 tabs 04/30/23 [Rx Last Taken Unknown] nitroglycerin 0.4 mg sublingual tablet 0.4 mg sublingual Q5-15M PRN chest pain #25 tabs 04/30/23 [Rx Last Taken Unknown] pantoprazole 40 mg tablet,delayed release 40 mg PO DAILY acid reflux #30 tabs 04/30/23 [Rx Last Taken Unknown] ticagrelor 90 mg tablet (Brilinta) See Rx Instructions .Route .COMPLEX #180 tabs 05/15/23 [Rx Last Taken Unknown] Allergy/AdvReac Type Severity Reaction Status Date / Time metformin [From Glucophage] AdvReac Intermediate Diarrhea Verified 06/11/23 18:34 Family History Mother Cancer lung Father Hypertension COPD (chronic obstructive pulmonary disease) Daughter Factor V deficiency Grandmother Cancer lung COPD (chronic obstructive pulmonary disease) Surgical History H/O cardiac catheterization History of back surgery History of delivery History of cholecystectomy History of coronary artery stent placement (04/06/23) History of dilatation and curettage History of left heart catheterization (04/06/23) History of percutaneous transluminal coronary angioplasty (~10/20/20) History of tonsillectomy and adenoidectomy History of tubal ligation S/P tubal ligation Social History household members: none Smoking Status: Former smoker alcohol intake: current alcohol intake frequency: holidays/special occasions only substance use type: does not use caffeine: Yes Prior Cardiac Testing/Procedures Prior Cardiac Testing/Procedures: Echocardiogram, Stress Test, Stenting and Cardiac Angiogram ROS ROS Narrative Review of systems: General: Denies fever or chills HENT: Denies headache, denies stuffy nose, denies sore throat EYES: Denies changes in vision Resp: Denies cough, denies shortness of breath Cardiac: She admits to chest pain as per HPI GI: Denies abdominal pain, denies changes in bowel, had some nausea : Denies changes in urination Extremity: Denies swelling Musculoskeletal: Feels somewhat generally weak and unwell with malaise Neuro: Denies any numbness/tingling Heme: Denies any bleeding or bruising Skin: Denies rashes Psychiatric: She admits to severe grief and depression over the recent of her made worse by the season as per HPI Endocrine: No polyuria The rest of the 14 point ROS was negative except for positives in HPI. Vital Signs Vital Signs Vital Signs: 06/11/23 18:34 06/11/23 20:33 06/11/23 20:59 Temperature 97.9 F Temperature Source Temporal Pulse Rate 132 H 95 Respiratory Rate 16 18 Respiratory Effort Blood Pressure 157/105 H 143/81 H Blood Pressure Mean 122 101 Pulse Ox 98 99 Oxygen Delivery Method Room Air Room Air Room Air 06/11/23 20:59 06/11/23 21:01 06/11/23 21:08 Temperature Temperature Source Pulse Rate 91 Respiratory Rate Respiratory Effort Normal Non-Labored Blood Pressure 144/85 H 144/85 H Blood Pressure Mean 104 Pulse Ox Oxygen Delivery Method 06/11/23 21:21 06/11/23 22:02 Temperature Temperature Source Pulse Rate 96 96 Respiratory Rate 14 Respiratory Effort Blood Pressure 133/96 H 173/99 H Blood Pressure Mean 123 Pulse Ox 98 Oxygen Delivery Method Room Air Weight Weight: 302 lb 3.2 oz Body Mass Index (BMI) 50.3 Physical Exam Const alert, oriented x3, average body habitus and healthy appearing Constitutional Narrative: Patient is anxious. General Appearance: cooperative HEENT normocephalic, head/scalp atraumatic, hearing grossly normal bilaterally and moist oral mucous membranes Eyes PERRL and EOMs intact bilaterally Neck no lymphadenopathy and supple Resp normal respiratory effort, no retractions, no use of accessory muscles and clear to auscultation bilaterally Cardio regular rate and regular rhythm GI normal to inspection, nondistended, normoactive bowel sounds, soft to palpation, non-tender and non-distended GI Narrative: Morbidly obese. Extremity normal to inspection and full ROM Skin Skin Narrative: Patient has no evidence of rash at this time. Neuro oriented x3, CN's II-XII intact bilaterally, moves all extremities and no focal motor deficits Sensorium / Orientation: awake, alert, oriented to person, oriented to place and oriented to time Speech: speech normal Motor Exam: strength 5/5 throughout Psych Mood & Affect: anxious Results Medical Records Data Attestation: I reviewed the patient's medical records Lab / Micro Data Attestation: I reviewed the patient's lab results. 06/11/23 20:14 06/11/23 20:14 Labs: Laboratory Results - last 24 hr 06/11/23 20:14: WBC 11.4 H, RBC 4.28, Hgb 14.1, Hct 40.4, MCV 94.4, MCH 32.9 H, MCHC 34.9, RDW Std Deviation 42.7, RDW Coeff of Whitney 12.4, Plt Count 291, MPV 10.4, Immature Gran % (Auto) 0.200, Neut % (Auto) 50.2, Lymph % (Auto) 35.4, [place] % (Auto) 8.4, Eos % (Auto) 5.2 H, Baso % (Auto) 0.6, Absolute Neuts (auto) 5.7, Absolute Lymphs (auto) 4.02, Nucleated RBC % 0, D-Dimer Quant (PE/DVT) 1.31 H*, Sodium 139, Potassium 3.6, Chloride 107, Carbon Dioxide 25.0, Anion Gap 7, BUN 12, Creatinine 0.60, Estim Creat Clear Calc 102.06, Est GFR (MDRD) Af Amer 137, Est GFR (MDRD) Non-Af 113, BUN/Creatinine Ratio 20.0, Glucose 239 H, Calcium 8.3 L, Troponin I High Sens 9 06/11/23 22:50: Troponin I High Sens 10 Imagaing Radiology Impression Chest X-Ray 06/11/23 19:22 IMPRESSION: No acute pulmonary finding. Electronically Signed: Alf Shepherd MD at 19:44 EST , Chest CTA 06/11/23 21:35 IMPRESSION: 1. No evidence of pulmonary embolus. 2. Stable pleural-based noncalcified nodule in the right middle lobe. There is no acute pulmonary abnormality. Electronically Signed: Efraín Vanessa MD at 22:47 EST , Assessment & Plan Assessment/Plan (1) Chest pain of uncertain etiology: (2) History of coronary artery stent placement: (3) Nicotine dependence: QUALIFIERS: Nicotine product type: cigarettes Substance use status: uncomplicated Qualified Code(s): F17.210 - Nicotine dependence, cigarettes, uncomplicated (4) Morbid obesity with BMI of 50.0-59.9, adult: PLAN: Plan 1. Chest pain in the setting of known coronary artery disease; status post SC x 3 and stents x 9 with most recent stent in April 2023 done here plus known history of CHF - Admit to CDU under observation status. Serialize troponin. Check Lexiscan nuclear stress test in the a.m. to evaluate for ischemia. Give Tylenol as needed for mild to moderate level 1-5 out of 10 pain or fever. Give IV Dilaudid as needed for severe level 6-10 out of 10 pain. Also increase amlodipine to 10 mg p.o. daily to minimize risk of vasospasm as a potential cause or contributing factor to her recurrent chest pain. Finally, we will consult her stock buyer to see her on rounds in the a.m. for further recommendations with help appreciated in advance. 2. Tobacco abuse likely promoting #1 - Tobacco cessation will be strongly encouraged. No nicotine patch will be offered due to increased risk of coronary artery vasospasm. 3. Morbid obesity; with a BMI of 50.3 this admission plus obstructive sleep apnea complicating #1 - #2 - Weight loss will be recommended. Check TSH. 4. Essential hypertension - Continue home regimen plus give as needed IV hydralazine for systolic blood pressure greater than 160 mmHg. 5. Hyperlipidemia - Resume statin and check lipid profile this admission in light of #1. 6. Hypothyroidism - Continue Synthroid as previous. 7. Diabetes mellitus type 2; of unknown control - ADA diet once evaluated by cardiology. Fingerstick blood sugars before every meal and at bedtime plus sliding scale insulin of the lowest intensity. Check hemoglobin A1c to objectively assess quality of diabetic control in light of #1. 8. History of asthma - Stable with no evidence of flare. Continue as needed nebulizers. 9. Remote history of COVID-19 - Noted. 10. Osteoarthritis; with history of lumbar surgery x 2 (2013/2014) - Stable. Give Tylenol as needed. 11. GERD - Continue PPI. 12. Depression with anxiety - Resume home regimen as previous plus give as needed Xanax for breakthrough symptoms. 13. DVT prophylaxis - Lovenox 40 mg SQ twice daily. Total time: Approximately 70 minutes. Charges/Coding Visit Charges OBSV E&M: 02178 Observ/hosp same date L2
[2023-06-12] VITALS (21 sets, daily range): BP systolic 90–170; BP diastolic 57–98; PULSE 85–105; RESP 11–18; TEMP 35.9–36.8; O2SAT 94–99; BMI 48.7
[2023-06-12] MEDS: amLODIPine 10 MG Tablet PO ×2 (00:10→10:13)
--- NOTE | 2023-06-12 01:13 | VDLE_ITS ---
Reason For Study: ELEVATED D-DIMER 1.3 RIGHT LEFT GSV is normal. GSV is normal. CFV is compressible, spontaneous, phasic, CFV is compressible, spontaneous, phasic, competent and demonstrates normal competent, and demonstrates normal augmentation. augmentation. FV is compressible, spontaneous, phasic, FV is compressible, spontaneous, phasic, competent and demonstrates normal competent and demonstrates normal augmentation. augmentation. POP V is compressible, spontaneous, phasic, POP V is compressible, spontaneous, phasic, competent and demonstrates normal competent and demonstrates normal augmentation. augmentation. T/P Trunk is compressible. T/P Trunk is compressible. PTV is compressible. PTV is compressible. RT PerV is compressible. LT PerV is compressible. Procedure This is a venous duplex using B-mode, color flow and spectral Doppler. Exam performed in department. The study was technically difficult. Due to obesity,. A preliminary report was called and/or faxed to [facility]. VL/Venous Duplex US - Fred Extrem Interpretation Summary Deep veins of the lower extremities are bilaterally patent and compressible seg mentally. There is no evidence of deep vein thrombosis on either side. Valvular competence appears in tact within the proximal deep venous systems bilaterally. The great saphenous veins appear bila terally patent and compressible segmentally. Ordering Physician: Alf Riggins Referring Physician: Adalberto Almaguer Performed By: Ann Allen, PORSCHE, RVT
[2023-06-12] MEDS: HYDROmorphone 0.5 MG/0.5 ML SYRINGE IV ×4 (01:15→23:00)
[2023-06-12 03:40] LABS: Cholesterol 141 mg/dL (200); High Density Lipoprotein 51 mg/dL; Triglycerides 133 mg/dL; Troponin-I HS 11 pg/mL (3.0-54.0); Very Low Density Lipoprotein 27 mg/dL (5-40)
[2023-06-12] MEDS: hydrALAZINE 50 MG Tablet PO ×2 (05:54→17:28)
[2023-06-12] MEDS: Levothyroxine 100 MCG Tablet 200 MCG PO ×2 (05:54→05:55)
[2023-06-12] MEDS: Levothyroxine 75 MCG Tablet PO (05:54)
[2023-06-12] MEDS: Aspirin E.C. 81 MG Tablet PO ×2 (05:55)
[2023-06-12] MEDS: TICAGRELOR 90 MG TABLET PO ×2 (05:56→21:36)
[2023-06-12 06:17] LABS: Bedside Glucose 235 mg/dL (74-106)
[2023-06-12] MEDS: 0.9% Saline Lock 10 ML Syringe IV (09:40)
[2023-06-12] MEDS: Carvedilol 25 MG Tablet PO ×2 (10:11→17:28)
[2023-06-12] MEDS: hydroCHLOROthiazide 25 MG Tablet PO (10:12)
[2023-06-12] MEDS: lamoTRIgine 150 MG Tablet 300 MG PO (10:12)
[2023-06-12] MEDS: Lisinopril 40 MG Tablet PO (10:13)
[2023-06-12] MEDS: Pantoprazole Sodium 40 MG Tablet PO (10:13)
[2023-06-12] MEDS: Insulin NPH Human 100 UNITS/ML PEN 16 UNITS SC ×2 (10:18→16:41)
[2023-06-12 10:30] LABS: Bedside Glucose 310 mg/dL (74-106)
--- NOTE | 2023-06-12 11:08 | DCINST_ITS ---
Discharge Instructions Diet Discharge Diet: 1800 Calorie Control Diet Activity Discharge Activity: Return to Normal Activity Weight Bearing Status: Full weight bearing Follow Up Care Test Results: Test results from this visit will be discussed in further detail at your follow- up appointment, if applicable. Discharge Plan Admission Admit Date/Time: 06/12/23 00:26 Attending Provider: Ramesh Valentine Primary Care Provider: Carlotta Galindo Consulting Providers: Alf Riggins Discharge Orders/Prescriptions Prescriptions: No Action levothyroxine 75 mcg tablet 75 mcg PO DAILY levothyroxine 200 mcg tablet 200 mcg PO DAILY lamotrigine 200 mg tablet 300 mg PO DAILY hydralazine 50 mg tablet 50 mg PO BID Qty: 180 3RF atorvastatin 80 mg tablet 80 mg PO QHS Qty: 90 3RF lisinopril 40 mg tablet 40 mg PO DAILY Qty: 90 3RF pantoprazole 40 mg tablet,delayed release (DR/EC) 40 mg PO DAILY Qty: 30 11RF hydrochlorothiazide 25 mg tablet 25 mg PO DAILY Qty: 30 11RF nitroglycerin 0.4 mg tablet, sublingual 0.4 mg sublingual Q5-15M PRN (Reason: chest pain) Qty: 25 3RF Rx Instructions: do not exceed 3 doses per episode (DME) blood pressure monitor Kit See Rx Instructions .Route Qty: 1 0RF Rx Instructions: As directed albuterol sulfate 1 INHALER inhaler 1 - 2 puff inhalation Q4H PRN PRN (Reason: Wheezing) Qty: 1 0RF Patient Comments: asthma budesonide-formoterol 160-4.5MCG inhaler 2 puff PO BID insulin regular human 100 UNIT/ML solution 24 units subcut TIDCM cyclobenzaprine 10 mg tablet 5 mg PO TID PRN PRN (Reason: Muscle Spasm) bupropion HCl 300 MG tablet extended release 24 hr 300 mg PO DAILY insulin NPH isoph U-100 human 100 UNITS/ML insulin pen 24 units subcut BIDAC Rx Instructions: breakfast and supper metoclopramide HCl [Reglan] 5 mg tablet 5 mg PO TID PRN PRN (Reason: nausea/vomiting) Qty: 10 0RF lorazepam 1 mg tablet 0.5 - 1 mg PO TID PRN (Reason: Anxiety) Patient Comments: Please take half to one tablet daily as needed for anxiety ondansetron 4 mg tablet,disintegrating 4 mg PO Q8H PRN (Reason: nausea and vomiting) Qty: 10 0RF levothyroxine 300 mcg tablet 300 mcg PO .thursday Patient Comments: Take 1 tablet by mouth daily before breakfast on Sundays. (Other days of the week take 275mcg once daily) bupropion HCl 150 mg tablet extended release 24 hr 150 mg PO DAILY Patient Comments: take 1 tablet by mouth once daily ALONG WITH BUPROPRION 300 MG carvedilol 25 mg tablet 25 mg PO Q12H Patient Comments: Take 1 tablet by mouth twice daily. gabapentin 100 mg capsule 100 mg PO TID PRN (Reason: nerve pain) Patient Comments: TAKE 1 CAPSULE BY MOUTH before bed for a few days, increase to 1 IN THE MORNING and 1 IN THE EVENING for a few days, then 1 THREE TIMES DAILY aspirin 81 mg Tablet,Delayed Release (Dr/Ec) 81 mg PO BREAKFAST Qty: 90 0RF amlodipine 5 mg tablet 5 mg PO DAILY Qty: 90 0RF Brilinta 90 mg tablet See Rx Instructions .ROUTE .COMPLEX Qty: 180 3RF Dose Instruction: 03/27/22 TAKE 1 TABLET BY MOUTH TWICE DAILY Rx Instructions: 03/27/22 TAKE 1 TABLET BY MOUTH TWICE DAILY Referrals / Follow Up: Carlotta Galindo MD [Primary Care Provider] - Within 2 Weeks
[2023-06-12] MEDS: buPROPion (XL) 150 MG TABLET.XL 450 MG PO (11:46)
--- NOTE | 2023-06-12 11:46 | STRESSREP_ITS ---
Stress Test Report 06/12/2023 Procedure: Pharmacologic stress nuclear imaging study Indications: Chest pain Consent: Per the patient Procedure: The patient underwent pharmacologic (Regadenoson 0.4mg ) evaluation with a peak heart rate of 118 beats per minute (69%predicted maximal heart rate) and a peak blood pressure of 138/82 mmHg. The baseline ECG demonstrated sinus rhythm. The peak pharmacologic ECG demonstrated no ischemic changes. Occasional PVCs noted postinfusion. Few couplets noted.. There was no complaint of chest discomfort during pharmacologic infusion or recovery. The patient was injected with 15.0 millicuries of technetium 99m Cardiolite and subsequently rest SPECT Cardiolite nuclear imaging was obtained in the horizonta l long, vertical long, and short axis views. The patient underwent pharmacologic (Regadenoson) evaluation. The patient was injected with 44.0 millicuries of technetium 99m Cardiolite and subsequently stress SPECT Cardiolite nuclear imaging was obtained in the horizontal long, vertical long, and short axis views. A gated Cardiolite study at peak stress was obtained. The examination was stopped secondary to completion of protocol. The examination was technically difficult. Significant motion artifact and moderate GI uptake noted. Rest and stress SPECT Cardiolite nuclear imaging status post realignment, normalization, and attenuation correction demonstrate no significant reversible perfusion defects. The reported LVEF is 49%. Impression: 1. Pharmacologic (Regadenoson) evaluation 2. Peak pharmacologic ECG with no ischemic changes. 3. PVCs noted postinfusion.. 5. Rest and stress SPECT Cardiolite nuclear imaging demonstrate relative uniform tracer uptake and myocardial perfusion appearing within normal limits. 6. The gated Cardiolite study reports an LVEF of 49%. 7. Technically difficult study with motion artifacts and significant GI uptake. Interpretation is limited. This note was generated with [employer] software. It may contain incorrect words, spelling, and punctuation that were not noted in checking the note before signing.
[2023-06-12] MEDS: Albuterol 2.5 MG/3 ML VIAL.NEB. INHALATION ×2 (13:04→20:40)
--- NOTE | 2023-06-12 16:02 | PCM.CONS.C ---
Assessment & Plan Assessment/Plan (1) Angina pectoris: PLAN: Patient's coronary angiography from April was reviewed. It was noted that the patient had in-stent restenosis of her right coronary artery. Her Lexiscan stress Cardiolite from today was essentially nondiagnostic because of artifacts. Given her presentation and history, I offered the patient coronary angiography with possible revascularization. Risks benefits and alternatives were discussed in detail. She understood these and wished to proceed. Please refer to coronary angiography report for details. Patient is noted to have significant restenosis of the mid right coronary artery. She also has a lesion in her mid LAD which was noted to be highly significant with an IFR of 0.83. Start patient on nitrates. Given the fact that even on previous interventions, the lesion in the mid RCA was not able to be expanded properly, I believe that she will need either laser or brachytherapy to it. Also the mid LAD may need rotablation/IVL. Ideally she should be referred for CABG however given her morbid obesity, I think she will be a high surgical risk. Discussed with Dr. Alexander at [facility]. They will see the patient early next week in their office and will decide further treatment options with the heart team approach. (2) Coronary artery disease: PLAN: See #1 above. Beta-blockers, calcium channel blockers, nitrates, aspirin and ticagrelor. (3) Essential hypertension: PLAN: Controlled. (4) Hypercholesterolemia: PLAN: On atorvastatin. (5) Nicotine dependence: QUALIFIERS: Nicotine product type: cigarettes Substance use status: uncomplicated Qualified Code(s): F17.210 - Nicotine dependence, cigarettes, uncomplicated PLAN: Quit smoking. (6) Morbid obesity with BMI of 50.0-59.9, adult: PLAN: Lose weight. 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 HPI Consult Data Date of Consult: 06/12/23 HPI Narrative Reason for Consultation: Chest pain HPI Narrative: This lady has history of coronary artery disease with multiple percutaneous interventions in the past. Her last coronary angiography was in April of this year. At that time, intervention was done to mid diagonal with a drug-eluting stent. Patient presented to the hospital again with complaints of increasing angina. According to the patient, she has been having exertional chest pain for the past some time. Relieved with rest. Rare rest discomfort. [facility] Medical History Abdominal pain Anxiety Asthma Atherosclerotic heart disease of [place] coronary artery without angina pectoris Blood disorder Chest pain of uncertain etiology CHF (congestive heart failure) Chronic obstructive pulmonary disease Chronic pain COVID-19 Current use of insulin Depression Diabetes Diabetes Diabetes mellitus, type II BULLOCK (dyspnea on exertion) Dyspnea Essential hypertension Failure of outpatient treatment Fatigue GERD (gastroesophageal reflux disease) Heart attack High cholesterol History of anxiety History of stress test HTN (hypertension) Hypercholesterolemia Hypothyroidism Irregular heartbeat Morbid obesity with BMI of 50.0-59.9, adult Nicotine dependence Nonadherence to medication GEOVANI (obstructive sleep apnea) Sinus bradycardia by electrocardiogram Sleep apnea Sleep-disordered breathing Smoker ST elevation myocardial infarction (STEMI) of inferior wall Home Medications albuterol sulfate 90 mcg/actuation aerosol inhaler 1 - 2 puff inhalation Q4H PRN PRN Wheezing ##1 10/15/15 [Rx Last Taken 10/19/20] budesonide-formoterol HFA 160 mcg-4.5 mcg/actuation aerosol inhaler 2 puff PO BID breathing 05/07/19 [History Last Taken 10/20/20] insulin regular human 100 unit/mL injection solution 24 units subcut TIDCM diabetes 05/07/19 [History Last Taken 10/20/20] bupropion HCl 300 mg 24 hr tablet, extended release 300 mg PO DAILY MOOD 09/25/20 [History Last Taken 10/20/20] insulin NPH isoph U-100 human 100 unit/mL (3 mL) subcutaneous pen 24 units subcut BIDAC diabetes 04/06/21 [History Last Taken Unknown] metoclopramide HCl 5 mg tablet (Reglan) 5 mg PO TID PRN PRN nausea/vomiting #10 tabs 04/20/21 [Rx Last Taken Unknown] lorazepam 1 mg tablet 0.5 - 1 mg PO TID PRN Anxiety 04/24/21 [History Last Taken Unknown] ondansetron 4 mg disintegrating tablet 4 mg PO Q8H PRN nausea and vomiting #10 tabs 12/31/21 [Rx Last Taken Unknown] atorvastatin 80 mg tablet 80 mg PO QHS cholesterol #90 tabs 03/25/22 [Rx Last Taken Unknown] cyclobenzaprine 10 mg tablet 5 mg PO TID PRN PRN Muscle Spasm 03/25/22 [History Last Taken Unknown] hydralazine 50 mg tablet 50 mg PO BID blood pressure #180 tabs 03/25/22 [Rx Last Taken Unknown] lamotrigine 200 mg tablet 300 mg PO DAILY 03/25/22 [History Last Taken Unknown] levothyroxine 200 mcg tablet 200 mcg PO DAILY 03/25/22 [History Last Taken Unknown] levothyroxine 75 mcg tablet 75 mcg PO DAILY 03/25/22 [History Last Taken Unknown] bupropion HCl 150 mg 24 hr tablet, extended release 150 mg PO DAILY 04/06/23 [History Last Taken Unknown] carvedilol 25 mg tablet 25 mg PO Q12H 04/06/23 [History Last Taken Unknown] gabapentin 100 mg capsule 100 mg PO TID PRN nerve pain 04/06/23 [History Last Taken Unknown] levothyroxine 300 mcg tablet 300 mcg PO .thursday04/06/23 [History Last Taken Unknown] amlodipine 5 mg tablet 5 mg PO DAILY #90 tabs 04/07/23 [Rx Last Taken Unknown] aspirin 81 mg tablet,delayed release 81 mg PO BREAKFAST #90 tabs 04/07/23 [Rx Last Taken Unknown] blood pressure monitor #1 ea 04/30/23 [Rx Last Taken Unknown] hydrochlorothiazide 25 mg tablet 25 mg PO DAILY #30 tabs 04/30/23 [Rx Last Taken Unknown] lisinopril 40 mg tablet 40 mg PO DAILY blood pressure #90 tabs 04/30/23 [Rx Last Taken Unknown] nitroglycerin 0.4 mg sublingual tablet 0.4 mg sublingual Q5-15M PRN chest pain #25 tabs 04/30/23 [Rx Last Taken Unknown] pantoprazole 40 mg tablet,delayed release 40 mg PO DAILY acid reflux #30 tabs 04/30/23 [Rx Last Taken Unknown] ticagrelor 90 mg tablet (Brilinta) See Rx Instructions .Route .COMPLEX #180 tabs 05/15/23 [Rx Last Taken Unknown] Allergy/AdvReac Type Severity Reaction Status Date / Time metformin [From Glucophage] AdvReac Intermediate Diarrhea Verified 06/11/23 18:34 Family History Mother Cancer lung Father Hypertension COPD (chronic obstructive pulmonary disease) Daughter Factor V deficiency Grandmother Cancer lung COPD (chronic obstructive pulmonary disease) Surgical History H/O cardiac catheterization History of back surgery History of delivery History of cholecystectomy History of coronary artery stent placement (04/06/23) History of dilatation and curettage History of left heart catheterization (04/06/23) History of percutaneous transluminal coronary angioplasty (~10/20/20) History of tonsillectomy and adenoidectomy History of tubal ligation S/P tubal ligation Social History household members: none Smoking Status: Former smoker alcohol intake: current alcohol intake frequency: holidays/special occasions only substance use type: does not use caffeine: Yes Physical Exam Narrative Morbidly obese. Heart sounds 1 and 2 are normal. Chest clear to auscultation bilaterally. Alert oriented x 3. Risk Stratification Risk Stratification Applicable: No Objective Data Vital Signs: Vital Signs Temp Pulse Resp BP Pulse Ox O2 Del Method 97.1 F L 91 11 L 126/68 H 97 Room Air 06/12/23 15:57 06/12/23 15:57 06/12/23 15:57 06/12/23 15:57 06/12/23 15:57 06/12/23 15:57 Oxygen Delivery Method Room Air Weight: 302 lb Body Mass Index (BMI) 48.7 Intake & Output: Intake and Output for Last 24 Hours 06/10/23 06/11/23 06/12/23 23:59 23:59 23:59 Intake Total 400 / 400 Balance 400 / 400 Lab / Micro Data 06/11/23 20:14 06/11/23 20:14 Labs: Laboratory Results - last 24 hr 06/11/23 20:14: WBC 11.4 H, RBC 4.28, Hgb 14.1, Hct 40.4, MCV 94.4, MCH 32.9 H, MCHC 34.9, RDW Std Deviation 42.7, RDW Coeff of Whitney 12.4, Plt Count 291, MPV 10.4, Immature Gran % (Auto) 0.200, Neut % (Auto) 50.2, Lymph % (Auto) 35.4, Potter % (Auto) 8.4, Eos % (Auto) 5.2 H, Baso % (Auto) 0.6, Absolute Neuts (auto) 5.7, Absolute Lymphs (auto) 4.02, Nucleated RBC % 0, D-Dimer Quant (PE/DVT) 1.31 H*, Sodium 139, Potassium 3.6, Chloride 107, Carbon Dioxide 25.0, Anion Gap 7, BUN 12, Creatinine 0.60, Estim Creat Clear Calc 102.06, Est GFR (MDRD) Af Amer 137, Est GFR (MDRD) Non-Af 113, BUN/Creatinine Ratio 20.0, Glucose 239 H, Calcium 8.3 L, Troponin I High Sens 9 06/11/23 22:50: Troponin I High Sens 10 06/12/23 03:03: Troponin I High Sens 11, Triglycerides 133, Cholesterol 141, LDL Cholesterol 63, VLDL Cholesterol 27, HDL Cholesterol 51 06/12/23 05:51: POC Glucose 235 H 06/12/23 10:09: POC Glucose 310 H Cardiology Labs/Tests 06/11/23 20:14: WBC 11.4 H, RBC 4.28, Hgb 14.1, Hct 40.4, MCV 94.4, MCH 32.9 H, MCHC 34.9, Plt Count 291, MPV 10.4, Immature Gran % (Auto) 0.200, Neut % (Auto) 50.2, Lymph % (Auto) 35.4, Potter % (Auto) 8.4, Eos % (Auto) 5.2 H, Baso % (Auto) 0.6, Absolute Neuts (auto) 5.7, Nucleated RBC % 0, D-Dimer Quant (PE/DVT) 1.31 H*, Sodium 139, Potassium 3.6, Chloride 107, Carbon Dioxide 25.0, Anion Gap 7, BUN 12, Creatinine 0.60, Est GFR (MDRD) Af Amer 137, Est GFR (MDRD) Non-Af 113, BUN/Creatinine Ratio 20.0, Glucose 239 H, Calcium 8.3 L 06/12/23 03:03: Triglycerides 133, Cholesterol 141, LDL Cholesterol 63, VLDL Cholesterol 27, HDL Cholesterol 51 Rhythm: EKG: ECHO: Stress Test: Cardiac Cath: PCI: CT Surgery: Holter monitor: EPS: PPM: CXR: Chest CT Scan: Radiography Diagnostic Testing: Radiology Impression Chest X-Ray 06/11/23 19:22 IMPRESSION: No acute pulmonary finding. Electronically Signed: Alf Shepherd MD at 19:44 EST , Chest CTA 06/11/23 21:35 IMPRESSION: 1. No evidence of pulmonary embolus. 2. Stable pleural-based noncalcified nodule in the right middle lobe. There is no acute pulmonary abnormality. Electronically Signed: Efraín Vanessa MD at 22:47 EST ,
--- NOTE | 2023-06-12 16:14 | CASEMGMT ---
Tertiary facilities in-network with patient's insurance: [facility], [facility], Deng Nevarez.
--- NOTE | 2023-06-12 16:32 | CL.D_ITS ---
Patient Name: ADELFO BACK Study Date: 06/12/2023 Performing: Mali Valente MD Ht: 66 inches 167.64 cm : 1975 Wt: 302.4 lbs 136.98 kg Age: 47 Gender: female BSA: 2.38 PROCEDURE(S) PERFORMED DC02-(52372)LHC/COR IC10-([id number])FFR, CORONARY OR GRAFT, INITIAL VESSEL CLINICAL PROFILE AND INDICATIONS Indications: Worsening Angina, Worsening Angina Heart Failure: None Angina Classification Anginal Classification w/in 2 Weeks: CCS III CAD Presentations: Unstable angina. CONCLUSIONS Stent to Prox LAD patent; 70% Mid LAD iFR 0.83; 50% ISR D1 70% Prox RCA; 80% ISR Mid RCA RECOMMENDATIONS Refer to [facility] for cosideration for laser/rotablation/brachytherapy to RCA; Rotablation/Shockwave Lithotripsy to Mid LAD DESCRIPTION OF PROCEDURE The patient arrived to the procedure lab. The risks and benefits of the procedure as well as a full description of our services here and current unavailability of surgical backup were fully explained to the patient and/or their significant other prior to the catheterization. The Timeout was completed, verifying the correct patient and procedure. The patient's procedural site was prepped and draped in the usual fashion. Local anesthetic was given subcutaneously to right radial region with Lidocaine 2%. Using a modified Seldinger technique, arterial access was obtained via the right radial artery, a 5Fr sheath was inserted. Right Coronary Artery selective angiography was then performed in multiple views using a 5 Fr. 4.0 Heflin catheter. Left Coronary Artery selective angiography was performed in multiple views using a 5 Fr. 4.0 Heflin catheter.The arterial sheath was pulled and a TR Band was applied for hemostasis 12 ml of air CORONARY ANGIOGRAPHY DOMINANCE: Right Dominant LEFT MAIN: Calcified 40% Distal lesion in Left Main LEFT ANTERIOR DESCENDING ARTERY: LAD: Calcified 70% Mid lesion in LAD DIAGONAL 1: In-Stent Restenosis 50% Mid lesion in 1st Diagonal, STENT to 50% RIGHT CORONARY ARTERY: RCA: Tubular 70% Proximal lesion in RCA In-Stent Restenosis 80% Mid lesion in RCA, STENT to 80% RT PDA: Diffuse 50% Proximal lesion in RT PDA COMPLICATIONS No Complications PROCEDURE MEDICATIONS Versed 1 mg IV Fentanyl 50 mcg IV Versed 1 mg IV Fentanyl 50 mcg IV Oxygen: 2 L/min via nasal cannula Heparin given IA 06/12/2023 14:40:35 Heparin 87214 unit(s) IV 06/12/2023 14:52:40 Nitro 200 mcg IC 06/12/2023 15:07:17 Verapamil 2.5mg, Ntg 200mcgs, 2000 units of Heparin given IA 06/12/2023 14:40:35 IV Bolus: .9 NaCl 250 ml total 06/12/2023 15:02:57 SUMMARY OF HEMODYNAMIC DATA Time AIR REST ECG 14:24:19 AO 0/0 (4) SA 14:33:51 AO 116/72 (94) 14:42:59 LV 110/23, 26 14:44:55 LV 108/24, 28 14:45:09 Signed By Mali Valente MD On 06/12/2023 16:31:49 Mali Valente MD
[2023-06-12] MEDS: 0.9% Normal Saline (1000mL) 1,000 ML 100 ML IV (16:35)
--- NOTE | 2023-06-12 16:43 | PCM.DC.SUM ---
Providers Date of Admission: 06/12/23 Date of Discharge: 06/12/23 Primary Care Physician: Dr. Carlotta Galindo MD Consultations 06/12/23 16:33 Consult: Cardiology Routine Consulting Provider: Mali Valente Reason for Consult: Chest pain, coronary artery disease EMERGENT Consult: No MD Notified: Yes Date Notified: 06/12/23 Time Notified: 12:33 Method of Notification: Verbal Method of Consult:: In-Person Reason For Visit: CHEST PAIN Diagnosis Discharge Diagnosis (1) Angina pectoris: Status: Acute Code(s): I20.9 - Angina pectoris, unspecified (2) Coronary artery disease: Status: Acute Code(s): I25.10 - Atherosclerotic heart disease of [place] coronary artery without angina pectoris (3) Essential hypertension: Status: Chronic Code(s): I10 - Essential (primary) hypertension (4) Hypercholesterolemia: Status: Chronic Code(s): E78.00 - Pure hypercholesterolemia, unspecified (5) Nicotine dependence: Status: Chronic Code(s): F17.200 - Nicotine dependence, unspecified, uncomplicated Qualifiers: Nicotine product type: cigarettes Substance use status: uncomplicated Qualified Code(s): F17.210 - Nicotine dependence, cigarettes, uncomplicated (6) Morbid obesity with BMI of 50.0-59.9, adult: Status: Acute Code(s): E66.01 - Morbid (severe) obesity due to excess calories; Z68.43 - Body mass index [BMI] 50.0-59.9, adult (7) Diabetes: Status: Acute Code(s): E11.9 - Type 2 diabetes mellitus without complications Qualifiers: Diabetes mellitus type: type 2 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 Diabetes mellitus complication status: without complication Qualified Code(s): E11.9 - Type 2 diabetes mellitus without complications; 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 Medications at Discharge Home Medications albuterol sulfate 90 mcg/actuation aerosol inhaler 1 - 2 puff inhalation Q4H PRN PRN Wheezing ##1 10/15/15 budesonide-formoterol HFA 160 mcg-4.5 mcg/actuation aerosol inhaler 2 puff PO BID breathing 05/07/19 insulin regular human 100 unit/mL injection solution 24 units subcut TIDCM diabetes 05/07/19 bupropion HCl 300 mg 24 hr tablet, extended release 300 mg PO DAILY MOOD 09/25/20 insulin NPH isoph U-100 human 100 unit/mL (3 mL) subcutaneous pen 24 units subcut BIDAC diabetes 04/06/21 metoclopramide HCl 5 mg tablet (Reglan) 5 mg PO TID PRN PRN nausea/vomiting #10 tabs 04/20/21 lorazepam 1 mg tablet 0.5 - 1 mg PO TID PRN Anxiety 04/24/21 ondansetron 4 mg disintegrating tablet 4 mg PO Q8H PRN nausea and vomiting #10 tabs 12/31/21 atorvastatin 80 mg tablet 80 mg PO QHS cholesterol #90 tabs 03/25/22 cyclobenzaprine 10 mg tablet 5 mg PO TID PRN PRN Muscle Spasm 03/25/22 hydralazine 50 mg tablet 50 mg PO BID blood pressure #180 tabs 03/25/22 lamotrigine 200 mg tablet 300 mg PO DAILY 03/25/22 levothyroxine 200 mcg tablet 200 mcg PO DAILY 03/25/22 levothyroxine 75 mcg tablet 75 mcg PO DAILY 03/25/22 bupropion HCl 150 mg 24 hr tablet, extended release 150 mg PO DAILY 04/06/23 carvedilol 25 mg tablet 25 mg PO Q12H 04/06/23 gabapentin 100 mg capsule 100 mg PO TID PRN nerve pain 04/06/23 levothyroxine 300 mcg tablet 300 mcg PO .thursday04/06/23 amlodipine 5 mg tablet 5 mg PO DAILY #90 tabs 04/07/23 aspirin 81 mg tablet,delayed release 81 mg PO BREAKFAST #90 tabs 04/07/23 blood pressure monitor #1 ea 04/30/23 hydrochlorothiazide 25 mg tablet 25 mg PO DAILY #30 tabs 04/30/23 lisinopril 40 mg tablet 40 mg PO DAILY blood pressure #90 tabs 04/30/23 nitroglycerin 0.4 mg sublingual tablet 0.4 mg sublingual Q5-15M PRN chest pain #25 tabs 04/30/23 pantoprazole 40 mg tablet,delayed release 40 mg PO DAILY acid reflux #30 tabs 04/30/23 ticagrelor 90 mg tablet (Brilinta) See Rx Instructions .Route .COMPLEX #180 tabs 05/15/23 Weight / BMI Weight Weight: 136.985 kg Body Mass Index (BMI) 48.7 ABG / Lab / Microbiology Data 06/11/23 20:14 06/11/23 20:14 Laboratory: Laboratory Results - last 24 hr 06/11/23 20:14: WBC 11.4 H, RBC 4.28, Hgb 14.1, Hct 40.4, MCV 94.4, MCH 32.9 H, MCHC 34.9, RDW Std Deviation 42.7, RDW Coeff of Whitney 12.4, Plt Count 291, MPV 10.4, Immature Gran % (Auto) 0.200, Neut % (Auto) 50.2, Lymph % (Auto) 35.4, Carbon % (Auto) 8.4, Eos % (Auto) 5.2 H, Baso % (Auto) 0.6, Absolute Neuts (auto) 5.7, Absolute Lymphs (auto) 4.02, Nucleated RBC % 0, D-Dimer Quant (PE/DVT) 1.31 H*, Sodium 139, Potassium 3.6, Chloride 107, Carbon Dioxide 25.0, Anion Gap 7, BUN 12, Creatinine 0.60, Estim Creat Clear Calc 102.06, Est GFR (MDRD) Af Amer 137, Est GFR (MDRD) Non-Af 113, BUN/Creatinine Ratio 20.0, Glucose 239 H, Calcium 8.3 L, Troponin I High Sens 9 06/11/23 22:50: Troponin I High Sens 10 06/12/23 03:03: Troponin I High Sens 11, Triglycerides 133, Cholesterol 141, LDL Cholesterol 63, VLDL Cholesterol 27, HDL Cholesterol 51 06/12/23 05:51: POC Glucose 235 H 06/12/23 10:09: POC Glucose 310 H Radiography Diagnostic Testing: Radiology Impression Chest X-Ray 06/11/23 19:22 IMPRESSION: No acute pulmonary finding. Electronically Signed: Alf Shepherd MD at 19:44 EST , Chest CTA 06/11/23 21:35 IMPRESSION: 1. No evidence of pulmonary embolus. 2. Stable pleural-based noncalcified nodule in the right middle lobe. There is no acute pulmonary abnormality. Electronically Signed: Efraín Vanessa MD at 22:47 EST , D/C Instructions Discharge Diet: 1800 Calorie Control Diet Weight Bearing Status: Full weight bearing Discharge Plan Admission Admit Date/Time: 06/12/23 00:26 Attending Provider: Ramesh Valentine Primary Care Provider: Carlotta Galindo Consulting Providers: Alf Riggins; Mali Valente Discharge Orders/Prescriptions Prescriptions: No Action levothyroxine 75 mcg tablet 75 mcg PO DAILY levothyroxine 200 mcg tablet 200 mcg PO DAILY lamotrigine 200 mg tablet 300 mg PO DAILY hydralazine 50 mg tablet 50 mg PO BID Qty: 180 3RF atorvastatin 80 mg tablet 80 mg PO QHS Qty: 90 3RF lisinopril 40 mg tablet 40 mg PO DAILY Qty: 90 3RF pantoprazole 40 mg tablet,delayed release (DR/EC) 40 mg PO DAILY Qty: 30 11RF hydrochlorothiazide 25 mg tablet 25 mg PO DAILY Qty: 30 11RF nitroglycerin 0.4 mg tablet, sublingual 0.4 mg sublingual Q5-15M PRN (Reason: chest pain) Qty: 25 3RF Rx Instructions: do not exceed 3 doses per episode (DME) blood pressure monitor Kit See Rx Instructions .Route Qty: 1 0RF Rx Instructions: As directed albuterol sulfate 1 INHALER inhaler 1 - 2 puff inhalation Q4H PRN PRN (Reason: Wheezing) Qty: 1 0RF Patient Comments: asthma budesonide-formoterol 160-4.5MCG inhaler 2 puff PO BID insulin regular human 100 UNIT/ML solution 24 units subcut TIDCM cyclobenzaprine 10 mg tablet 5 mg PO TID PRN PRN (Reason: Muscle Spasm) bupropion HCl 300 MG tablet extended release 24 hr 300 mg PO DAILY insulin NPH isoph U-100 human 100 UNITS/ML insulin pen 24 units subcut BIDAC Rx Instructions: breakfast and supper metoclopramide HCl [Reglan] 5 mg tablet 5 mg PO TID PRN PRN (Reason: nausea/vomiting) Qty: 10 0RF lorazepam 1 mg tablet 0.5 - 1 mg PO TID PRN (Reason: Anxiety) Patient Comments: Please take half to one tablet daily as needed for anxiety ondansetron 4 mg tablet,disintegrating 4 mg PO Q8H PRN (Reason: nausea and vomiting) Qty: 10 0RF levothyroxine 300 mcg tablet 300 mcg PO .thursday Patient Comments: Take 1 tablet by mouth daily before breakfast on Sundays. (Other days of the week take 275mcg once daily) bupropion HCl 150 mg tablet extended release 24 hr 150 mg PO DAILY Patient Comments: take 1 tablet by mouth once daily ALONG WITH BUPROPRION 300 MG carvedilol 25 mg tablet 25 mg PO Q12H Patient Comments: Take 1 tablet by mouth twice daily. gabapentin 100 mg capsule 100 mg PO TID PRN (Reason: nerve pain) Patient Comments: TAKE 1 CAPSULE BY MOUTH before bed for a few days, increase to 1 IN THE MORNING and 1 IN THE EVENING for a few days, then 1 THREE TIMES DAILY aspirin 81 mg Tablet,Delayed Release (Dr/Ec) 81 mg PO BREAKFAST Qty: 90 0RF amlodipine 5 mg tablet 5 mg PO DAILY Qty: 90 0RF Brilinta 90 mg tablet See Rx Instructions .ROUTE .COMPLEX Qty: 180 3RF Dose Instruction: 03/27/22 TAKE 1 TABLET BY MOUTH TWICE DAILY Rx Instructions: 03/27/22 TAKE 1 TABLET BY MOUTH TWICE DAILY Referrals / Follow Up: Carlotta Galindo MD [Primary Care Provider] - Within 2 Weeks Disposition Discharge Orders: Discharge Patient (Routine); Ordered 06/12/23 Ordered By: Dr. Ramesh Valentine
[2023-06-12 16:55] LABS: Bedside Glucose 296 mg/dL (74-106)
[2023-06-12] MEDS: Isosorbide Mononitrate 60 MG Tablet PO (17:29)
--- NOTE | 2023-06-12 17:35 | PCM.PN.HOSP ---
Reason for Visit Reason for Visit: Diagnoses Type 2 diabetes mellitus without complications (06/12/23) Morbid (severe) obesity due to excess calories (06/12/23) Pure hypercholesterolemia, unspecified (06/12/23) Nicotine dependence, cigarettes, uncomplicated (06/12/23) Essential (primary) hypertension (06/12/23) Angina pectoris, unspecified (06/12/23) Atherosclerotic heart disease of [place] coronary artery without angina pectoris (06/12/23) Chest pain, unspecified (06/12/23) Body mass index [BMI] 50.0-59.9, adult (06/12/23) intermediate (current) use of insulin (06/12/23) Presence of coronary angioplasty implant and graft (06/12/23) Subjective Subjective Patient was seen and examined today, I talked with cardiology earlier today who told me that her stress test was not an optimal stress test but there were no obvious evidence of reversible ischemic changes noted. I went over this with the patient and she stated that she did not want to be discharged home because she still felt that there was something wrong, I went back and talked with Dr. Valente and he took her to cardiac cath today and found to tight lesions 1 in the right coronary artery and 1 in the mid LAD, he recommends that the patient go to a tertiary facility for intervention on these lesions, initially he made arrangements for the patient to go to [facility] and contacted a establishment guide there but unfortunately the patient's insurance is not in their network. I will have to call other hospitals tomorrow to make arrangements for possible transfer this weekend. Objective Data Objective Data Vital Signs: Vital Signs Temp Pulse Resp BP Pulse Ox O2 Del Method 97.6 F L 86 15 129/71 H 98 Room Air 06/12/23 17:24 06/12/23 17:28 06/12/23 17:24 06/12/23 17:24 06/12/23 17:24 06/12/23 17:24 Oxygen Delivery Method Room Air Weight: 136.985 kg Body Mass Index (BMI) 48.7 Intake & Output: Intake and Output for Last 24 Hours 06/10/23 06/11/23 06/12/23 23:59 23:59 23:59 Intake Total 400 / 400 Balance 400 / 400 Lab / Micro Data 06/11/23 20:14 06/11/23 20:14 Labs: Laboratory Results - last 24 hr 06/11/23 20:14: WBC 11.4 H, RBC 4.28, Hgb 14.1, Hct 40.4, MCV 94.4, MCH 32.9 H, MCHC 34.9, RDW Std Deviation 42.7, RDW Coeff of Whitney 12.4, Plt Count 291, MPV 10.4, Immature Gran % (Auto) 0.200, Neut % (Auto) 50.2, Lymph % (Auto) 35.4, [place] % (Auto) 8.4, Eos % (Auto) 5.2 H, Baso % (Auto) 0.6, Absolute Neuts (auto) 5.7, Absolute Lymphs (auto) 4.02, Nucleated RBC % 0, D-Dimer Quant (PE/DVT) 1.31 H*, Sodium 139, Potassium 3.6, Chloride 107, Carbon Dioxide 25.0, Anion Gap 7, BUN 12, Creatinine 0.60, Estim Creat Clear Calc 102.06, Est GFR (MDRD) Af Amer 137, Est GFR (MDRD) Non-Af 113, BUN/Creatinine Ratio 20.0, Glucose 239 H, Calcium 8.3 L, Troponin I High Sens 9 06/11/23 22:50: Troponin I High Sens 10 06/12/23 03:03: Troponin I High Sens 11, Triglycerides 133, Cholesterol 141, LDL Cholesterol 63, VLDL Cholesterol 27, HDL Cholesterol 51 06/12/23 05:51: POC Glucose 235 H 06/12/23 10:09: POC Glucose 310 H 06/12/23 16:38: POC Glucose 296 H Radiography Diagnostic Testing: Radiology Impression Chest X-Ray 06/11/23 19:22 IMPRESSION: No acute pulmonary finding. Electronically Signed: Alf Shepherd MD at 19:44 EST Reading Location ID and State: [facility] / [place] Tel , Service support , Chest CTA 06/11/23 21:35 IMPRESSION: 1. No evidence of pulmonary embolus. 2. Stable pleural-based noncalcified nodule in the right middle lobe. There is no acute pulmonary abnormality. Electronically Signed: Efraín Vanessa MD at 22:47 EST , Physical Exam Const alert, oriented x3, no apparent distress and healthy appearing Constitutional Narrative: Patient is morbidly obese General Appearance: cooperative, well kempt and well developed Orientation / Consciousness: awake, oriented to person, oriented to place and oriented to time HEENT normocephalic, head/scalp atraumatic and moist oral mucous membranes Eyes PERRL, EOMs intact bilaterally and conjunctivae normal Neck supple, no JVD, thyroid normal and no carotid bruits General: trachea midline Resp normal respiratory effort, no retractions, no use of accessory muscles and clear to auscultation bilaterally Auscultation: Negative for rales, rhonchi or wheezes Cardio regular rate, regular rhythm, S1 normal heart sound, S2 normal heart sound, no murmurs, no rub and no gallops GI normal to inspection, nondistended, normoactive bowel sounds, soft to palpation, non-tender and non-distended Extremity no clubbing, cyanosis or edema Skin no rashes or lesions noted General Skin Exam: no breakdown Neuro oriented x3, CN's II-XII intact bilaterally, moves all extremities, no focal motor deficits and no sensory deficits noted Sensorium / Orientation: awake and alert Speech: speech normal Psych affect normal Assessment & Plan Assessment/Plan (1) Coronary artery disease: PLAN: Plan 1. Occlusive coronary disease with angina pectoris-again I will have to make calls to other hospitals tomorrow to see if there are able to take the patient, cardiology reviewed her medications and adjusted her medicines. #2 type 2 diabetes-patient's blood sugar will be monitored, sliding scale insulin will be given as indicated #3 essential hypertension-patient will remain on her present medications #4 hypothyroidism-patient is on Synthroid #5 hyperlipidemia-patient is on atorvastatin #6 chronic anxiety/depression-patient will remain on her present medication Total clinical time spent by myself addressing the patient's medical issues, reviewing all of her data, and collaborating with patient's care team: 35 minutes Charges/Coding Visit Charges Inpatient E&M: 04583 Subs Hosp L2
[2023-06-12] MEDS: Budesonide Respules 0.5 MG/2 ML AMPUL.NEB. INHALATION (20:41)
[2023-06-12] MEDS: Atorvastatin Calcium 80 MG Tablet PO (21:36)
[2023-06-12 23:20] LABS: Bedside Glucose 362 mg/dL (74-106)
[2023-06-13] MEDS: Insulin Lispro 100 UNIT/ML INSULN.PEN SC ×4 (00:13→16:27)
[2023-06-13] MEDS: 0.9% Normal Saline (1000mL) 1,000 ML 100 ML IV (02:39)
[2023-06-13 05:32] VITALS: BP 143/78; PULSE 99; RESP 18; TEMP 36.6; O2SAT 96
[2023-06-13] MEDS: Levothyroxine 75 MCG Tablet PO (05:46)
[2023-06-13] MEDS: Levothyroxine 100 MCG Tablet 200 MCG PO (05:46)
[2023-06-13] MEDS: Insulin NPH Human 100 UNITS/ML PEN 16 UNITS SC ×2 (07:03→16:28)
[2023-06-13 07:24] LABS: Bedside Glucose 322 mg/dL (74-106)
[2023-06-13 07:30] VITALS: BP 145/74; PULSE 114; RESP 16; TEMP 36.9; O2SAT 99
[2023-06-13 07:35] VITALS: BP 145/74; PULSE 114
[2023-06-13] MEDS: hydrALAZINE 50 MG Tablet PO ×2 (07:35→16:31)
[2023-06-13] MEDS: Carvedilol 25 MG Tablet PO ×2 (07:35→16:31)
[2023-06-13] MEDS: Ondansetron ODT 4 MG Tablet PO (07:35)
[2023-06-13] MEDS: HYDROmorphone 0.5 MG/0.5 ML SYRINGE IV ×2 (07:36→14:49)
[2023-06-13] MEDS: buPROPion (XL) 150 MG TABLET.XL 450 MG PO (09:14)
[2023-06-13] MEDS: TICAGRELOR 90 MG TABLET PO (09:15)
[2023-06-13] MEDS: lamoTRIgine 150 MG Tablet 300 MG PO (09:16)
[2023-06-13] MEDS: Isosorbide Mononitrate 60 MG Tablet PO (09:16)
[2023-06-13] MEDS: Pantoprazole Sodium 40 MG Tablet PO (09:17)
[2023-06-13] MEDS: hydroCHLOROthiazide 25 MG Tablet PO (09:17)
[2023-06-13] MEDS: Enoxaparin 40 MG/0.4 ML Syringe SC (09:18)
[2023-06-13] MEDS: amLODIPine 10 MG Tablet PO (09:18)
[2023-06-13] MEDS: Lisinopril 40 MG Tablet PO (09:21)
[2023-06-13 10:37] LABS: Anion Gap 4 (5-15); BUN 8 mg/dL (7-18); BUN/Creat Ratio 16.7 RATIO (10-20); Calcium,Total 8.1 mg/dL (8.5-10.1); Chloride 106 mmol/L (98-107); Creatinine, Serum 0.48 mg/dL (0.55-1.02); EST Glomerular Filtration Rate 146 mL/min (>60); Est Glom Filt Rate - Afr Amer 177 mL/min (>60); Estimated Creatinine Clearance 132.72 ml/min; Glucose 317 mg/dL (74-106); Potassium 3.9 mmol/L (3.5-5.1); Sodium Level 136 mmol/L (136-145)
[2023-06-13] MEDS: Albuterol 2.5 MG/3 ML VIAL.NEB. INHALATION ×2 (10:44→15:56)
[2023-06-13] MEDS: Budesonide Respules 0.5 MG/2 ML AMPUL.NEB. INHALATION (10:44)
[2023-06-13 10:45] VITALS: PULSE 94; RESP 20
--- NOTE | 2023-06-13 11:30 | PN.CARD_ITS ---
Subjective Subjective Feels short of breath with exertion. Objective Data Vital Signs: Vital Signs Temp Pulse Resp BP Pulse Ox O2 Del Method 98.5 F 94 20 H 145/74 H 99 Room Air 06/13/23 07:30 06/13/23 10:45 06/13/23 10:45 06/13/23 07:35 06/13/23 07:30 06/13/23 07:30 Oxygen Delivery Method Room Air Weight: 302 lb Body Mass Index (BMI) 48.7 Intake & Output: Intake and Output for Last 24 Hours 06/11/23 06/12/23 06/13/23 23:59 23:59 23:59 Intake Total 400 / 400 2350 / 2350 Balance 400 / 400 2350 / 2350 Lab / Micro Data 06/11/23 20:14 06/13/23 09:00 Labs: Laboratory Results - last 24 hr 06/12/23 16:38: POC Glucose 296 H 06/12/23 23:01: POC Glucose 362 H 06/13/23 07:00: POC Glucose 322 H 06/13/23 09:00: Sodium 136, Potassium 3.9, Chloride 106, Carbon Dioxide 26.0, Anion Gap 4 L, BUN 8, Creatinine 0.48 L, Estim Creat Clear Calc 132.72, Est GFR (MDRD) Af Amer 177, Est GFR (MDRD) Non-Af 146, BUN/Creatinine Ratio 16.7, Glucose 317 H, Calcium 8.1 L Cardiology Labs/Tests 06/13/23 09:00: Sodium 136, Potassium 3.9, Chloride 106, Carbon Dioxide 26.0, Anion Gap 4 L, BUN 8, Creatinine 0.48 L, Est GFR (MDRD) Af Amer 177, Est GFR ( MDRD) Non-Af 146, BUN/Creatinine Ratio 16.7, Glucose 317 H, Calcium 8.1 L Rhythm: EKG: ECHO: Stress Test: Cardiac Cath: PCI: CT Surgery: Holter monitor: EPS: PPM: CXR: Chest CT Scan: Radiography Diagnostic Testing: Radiology Impression Venous Doppler Study 06/12/23 01:13 Interpretation Summary Deep veins of the lower extremities are bilaterally patent and compressible segmentally. There is no evidence of deep vein thrombosis on either side. Valvular competence appears intact within the proximal deep venous systems bilaterally. The great saphenous veins appear bilaterally patent and compressible segmentally. Ordering Physician: Alf Riggins Referring Physician: Adalberto Almaguer Performed By: Ann Allen, PORSCHE, RVT Physical Exam Narrative Morbidly obese. Heart sounds 1 and 2 are normal. Chest clear to auscultation bilaterally. Alert oriented x 3. Assessment & Plan Assessment/Plan (1) Angina pectoris: PLAN: Severe RCA lesion. 70% mid LAD with IFR 0.83. Awaiting bed for the facility with level 3 Battery Vent Plug Inserter. If no bed availability at tertiary care facility, then may try percutaneous intervention to the in-stent restenosis of the proximal and mid RCA on Thursday with possible shockwave lithotripsy. (2) Coronary artery disease: PLAN: See #1 above. Beta-blockers, calcium channel blockers, nitrates, aspirin and ticagrelor. (3) Essential hypertension: PLAN: Controlled. (4) Hypercholesterolemia: PLAN: On atorvastatin. (5) Nicotine dependence: QUALIFIERS: Nicotine product type: cigarettes Substance use status: uncomplicated Qualified Code(s): F17.210 - Nicotine dependence, cigarettes, uncomplicated PLAN: Quit smoking. (6) Morbid obesity with BMI of 50.0-59.9, adult: PLAN: Lose weight. (7) Diabetes: QUALIFIERS: Diabetes mellitus type: type 2 Diabetes mellitus fdc insulin use: with supervisor intermediates use Diabetes mellitus complication status: without complication Qualified Code(s): E11.9 - Type 2 diabetes mellitus without complications; Z79.4 - supervisor intermediates (current) use of insulin PLAN: As per internal medicine.
[2023-06-13 11:39] LABS: Bedside Glucose 371 mg/dL (74-106)
--- NOTE | 2023-06-13 14:56 | PCM.DC.SUM ---
Providers Date of Admission: 06/12/23 Date of Discharge: 06/13/23 Primary Care Physician: Dr. Carlotta Galindo MD Consultations 06/12/23 16:33 Consult: Cardiology Routine Consulting Provider: Mali Valente Reason for Consult: Chest pain, coronary artery disease EMERGENT Consult: No MD Notified: Yes Date Notified: 06/12/23 Time Notified: 12:33 Method of Notification: Verbal Method of Consult:: In-Person Reason For Visit: CHEST PAIN Diagnosis Discharge Diagnosis (1) Angina pectoris: Status: Acute Code(s): I20.9 - Angina pectoris, unspecified (2) Coronary artery disease: Status: Acute Code(s): I25.10 - Atherosclerotic heart disease of [place] coronary artery without angina pectoris (3) Essential hypertension: Status: Chronic Code(s): I10 - Essential (primary) hypertension (4) Hypercholesterolemia: Status: Chronic Code(s): E78.00 - Pure hypercholesterolemia, unspecified (5) Nicotine dependence: Status: Chronic Code(s): F17.200 - Nicotine dependence, unspecified, uncomplicated Qualifiers: Nicotine product type: cigarettes Substance use status: uncomplicated Qualified Code(s): F17.210 - Nicotine dependence, cigarettes, uncomplicated (6) Morbid obesity with BMI of 50.0-59.9, adult: Status: Acute Code(s): E66.01 - Morbid (severe) obesity due to excess calories; Z68.43 - Body mass index [BMI] 50.0-59.9, adult (7) Diabetes: Status: Acute Code(s): E11.9 - Type 2 diabetes mellitus without complications Qualifiers: Diabetes mellitus type: type 2 Diabetes mellitus terminal make up operator insulin use: with prison use Diabetes mellitus complication status: without complication Qualified Code(s): E11.9 - Type 2 diabetes mellitus without complications; Z79.4 - terminal make up operator (current) use of insulin Plan 1. Occlusive coronary disease with angina pectoris-again I will have to make calls to other hospitals tomorrow to see if there are able to take the patient, cardiology reviewed her medications and adjusted her medicines. #2 type 2 diabetes-patient's blood sugar will be monitored, sliding scale insulin will be given as indicated #3 essential hypertension-patient will remain on her present medications #4 hypothyroidism-patient is on Synthroid #5 hyperlipidemia-patient is on atorvastatin #6 chronic anxiety/depression-patient will remain on her present medication Total clinical time spent by myself addressing the patient's medical issues, reviewing all of her data, and collaborating with patient's care team: 35 minutes Medications at Discharge Home Medications albuterol sulfate 90 mcg/actuation aerosol inhaler 1 - 2 puff inhalation Q4H PRN PRN Wheezing ##1 10/15/15 budesonide-formoterol HFA 160 mcg-4.5 mcg/actuation aerosol inhaler 2 puff PO BID breathing 05/07/19 insulin regular human 100 unit/mL injection solution 24 units subcut TIDCM diabetes 05/07/19 bupropion HCl 300 mg 24 hr tablet, extended release 300 mg PO DAILY MOOD 09/25/20 insulin NPH isoph U-100 human 100 unit/mL (3 mL) subcutaneous pen 24 units subcut BIDAC diabetes 04/06/21 metoclopramide HCl 5 mg tablet (Reglan) 5 mg PO TID PRN PRN nausea/vomiting #10 tabs 04/20/21 lorazepam 1 mg tablet 0.5 - 1 mg PO TID PRN Anxiety 04/24/21 ondansetron 4 mg disintegrating tablet 4 mg PO Q8H PRN nausea and vomiting #10 tabs 12/31/21 atorvastatin 80 mg tablet 80 mg PO QHS cholesterol #90 tabs 03/25/22 cyclobenzaprine 10 mg tablet 5 mg PO TID PRN PRN Muscle Spasm 03/25/22 hydralazine 50 mg tablet 50 mg PO BID blood pressure #180 tabs 03/25/22 lamotrigine 200 mg tablet 300 mg PO DAILY 03/25/22 levothyroxine 200 mcg tablet 200 mcg PO DAILY 03/25/22 levothyroxine 75 mcg tablet 75 mcg PO DAILY 03/25/22 bupropion HCl 150 mg 24 hr tablet, extended release 150 mg PO DAILY 04/06/23 carvedilol 25 mg tablet 25 mg PO Q12H 04/06/23 gabapentin 100 mg capsule 100 mg PO TID PRN nerve pain 04/06/23 levothyroxine 300 mcg tablet 300 mcg PO .thursday04/06/23 amlodipine 5 mg tablet 5 mg PO DAILY #90 tabs 04/07/23 aspirin 81 mg tablet,delayed release 81 mg PO BREAKFAST #90 tabs 04/07/23 blood pressure monitor #1 ea 04/30/23 hydrochlorothiazide 25 mg tablet 25 mg PO DAILY #30 tabs 04/30/23 lisinopril 40 mg tablet 40 mg PO DAILY blood pressure #90 tabs 04/30/23 nitroglycerin 0.4 mg sublingual tablet 0.4 mg sublingual Q5-15M PRN chest pain #25 tabs 04/30/23 pantoprazole 40 mg tablet,delayed release 40 mg PO DAILY acid reflux #30 tabs 04/30/23 ticagrelor 90 mg tablet (Brilinta) See Rx Instructions .Route .COMPLEX #180 tabs 05/15/23 Hospital Course Operations None Procedures Cardiac catheterization and Nuclear stress test Summary of Care Provided Minutes Spent on Discharge: 31 Hospital Course: This 47-year-old white female was seen in the emergency room at [facility] with complaints of precordial chest pain in her left upper chest area radiating to her left arm which started the day before, she took a nitroglycerin and it controlled the pain somewhat. Patient complained that the pain persisted all day long and she came to the ER for evaluation. Labs were obtained in the emergency room, patient's white blood cell count was slightly elevated 11.4, troponin was unremarkable, chest x-ray showed no acute pulmonary finding. CT of the chest was performed which showed no evidence of pulmonary embolus. Patient was placed in observation status on PCU and the patient's cardiac enzymes were cycled, these remain normal, patient underwent a nuclear stress test on 06/12/2023-the test was not an optimal test but did not show any obvious reversible ischemia on the nuclear imaging. Discussions were carried out with the patient and she stated she did not feel comfortable going home at that point cardiology saw the patient and took the patient for a cardiac catheterization. There was noted to be 2 occlusive stenotic areas in the LAD and the right coronary artery, it was recommended the patient be shipped out to another facility to undergo further treatment, her insurance did not cover [facility] and so on 06/13/2023, [facility] was contacted and agreed to except the patient. Later in the day, they called confirming the bed was available. On 06/13/2023, patient was seen and examined: On examination she appeared in good health and spirits, she does not appear to be in any distress. Patient is morbidly obese. Vital signs as documented. Skin warm and dry and without overt rashes. Neck without JVD, thyroid appears normal, trachea is midline, neck is supple. Lungs clear, normal air movement was noted. Heart exam notable for regular rhythm, normal sounds and absence of murmurs, rubs or gallops. Abdomen unremarkable and without evidence of organomegaly, masses, or abdominal aortic enlargement, bowel sounds are present in all 4 quadrants, no abdominal tenderness was noted. Extremities nonedematous, no cyanosis was noted, no clubbing was noted. Neuro: Cranial nerves II through XII are grossly intact, no focal motor deficits were noted, sensation to light touch and pinprick is intact, motor exam 5/5 throughout. Psych: Patient is alert and oriented x3, she does not appear anxious or depressed, she does not appear agitated. Patient was transferred to [facility] in [facility] for further treatment on 06/13/2023. Weight / BMI Weight Weight: 136.985 kg Body Mass Index (BMI) 48.7 ABG / Lab / Microbiology Data 06/11/23 20:14 06/13/23 09:00 Laboratory: Laboratory Results - last 24 hr 06/12/23 16:38: POC Glucose 296 H 06/12/23 23:01: POC Glucose 362 H 06/13/23 07:00: POC Glucose 322 H 06/13/23 09:00: Sodium 136, Potassium 3.9, Chloride 106, Carbon Dioxide 26.0, Anion Gap 4 L, BUN 8, Creatinine 0.48 L, Estim Creat Clear Calc 132.72, Est GFR (MDRD) Af Amer 177, Est GFR (MDRD) Non-Af 146, BUN/Creatinine Ratio 16.7, Glucose 317 H, Calcium 8.1 L 06/13/23 11:10: POC Glucose 371 H Radiography Diagnostic Testing: Radiology Impression Venous Doppler Study 06/12/23 01:13 Interpretation Summary Deep veins of the lower extremities are bilaterally patent and compressible segmentally. There is no evidence of deep vein thrombosis on either side. Valvular competence appears intact within the proximal deep venous systems bilaterally. The great saphenous veins appear bilaterally patent and compressible segmentally. Ordering Physician: Alf Riggins Referring Physician: Adalberto Almaguer Performed By: Ann Allen RDCS, RVT Meaningful Use Info Meaningful Use Diagnoses (Choose all that apply): None applicable Discharge Plan Admission Admit Date/Time: 06/12/23 00:26 Attending Provider: Ramesh Valentine Primary Care Provider: Carlotta Galindo Consulting Providers: Alf Riggins; Mali Valente Discharge Orders/Prescriptions Prescriptions: No Action levothyroxine 75 mcg tablet 75 mcg PO DAILY levothyroxine 200 mcg tablet 200 mcg PO DAILY lamotrigine 200 mg tablet 300 mg PO DAILY hydralazine 50 mg tablet 50 mg PO BID Qty: 180 3RF atorvastatin 80 mg tablet 80 mg PO QHS Qty: 90 3RF lisinopril 40 mg tablet 40 mg PO DAILY Qty: 90 3RF pantoprazole 40 mg tablet,delayed release (DR/EC) 40 mg PO DAILY Qty: 30 11RF hydrochlorothiazide 25 mg tablet 25 mg PO DAILY Qty: 30 11RF nitroglycerin 0.4 mg tablet, sublingual 0.4 mg sublingual Q5-15M PRN (Reason: chest pain) Qty: 25 3RF Rx Instructions: do not exceed 3 doses per episode (DME) blood pressure monitor Kit See Rx Instructions .Route Qty: 1 0RF Rx Instructions: As directed albuterol sulfate 1 INHALER inhaler 1 - 2 puff inhalation Q4H PRN PRN (Reason: Wheezing) Qty: 1 0RF Patient Comments: asthma budesonide-formoterol 160-4.5MCG inhaler 2 puff PO BID insulin regular human 100 UNIT/ML solution 24 units subcut TIDCM cyclobenzaprine 10 mg tablet 5 mg PO TID PRN PRN (Reason: Muscle Spasm) bupropion HCl 300 MG tablet extended release 24 hr 300 mg PO DAILY insulin NPH isoph U-100 human 100 UNITS/ML insulin pen 24 units subcut BIDAC Rx Instructions: breakfast and supper metoclopramide HCl [Reglan] 5 mg tablet 5 mg PO TID PRN PRN (Reason: nausea/vomiting) Qty: 10 0RF lorazepam 1 mg tablet 0.5 - 1 mg PO TID PRN (Reason: Anxiety) Patient Comments: Please take half to one tablet daily as needed for anxiety ondansetron 4 mg tablet,disintegrating 4 mg PO Q8H PRN (Reason: nausea and vomiting) Qty: 10 0RF levothyroxine 300 mcg tablet 300 mcg PO .thursday Patient Comments: Take 1 tablet by mouth daily before breakfast on Sundays. (Other days of the week take 275mcg once daily) bupropion HCl 150 mg tablet extended release 24 hr 150 mg PO DAILY Patient Comments: take 1 tablet by mouth once daily ALONG WITH BUPROPRION 300 MG carvedilol 25 mg tablet 25 mg PO Q12H Patient Comments: Take 1 tablet by mouth twice daily. gabapentin 100 mg capsule 100 mg PO TID PRN (Reason: nerve pain) Patient Comments: TAKE 1 CAPSULE BY MOUTH before bed for a few days, increase to 1 IN THE MORNING and 1 IN THE EVENING for a few days, then 1 THREE TIMES DAILY aspirin 81 mg Tablet,Delayed Release (Dr/Ec) 81 mg PO BREAKFAST Qty: 90 0RF amlodipine 5 mg tablet 5 mg PO DAILY Qty: 90 0RF Brilinta 90 mg tablet See Rx Instructions .ROUTE .COMPLEX Qty: 180 3RF Dose Instruction: 03/27/22 TAKE 1 TABLET BY MOUTH TWICE DAILY Rx Instructions: 03/27/22 TAKE 1 TABLET BY MOUTH TWICE DAILY Referrals / Follow Up: Carlotta Galindo MD [Primary Care Provider] - Within 2 Weeks Disposition Discharge Orders: Discharge Patient (Routine); Ordered 06/13/23 Ordered By: Dr. Ramesh Valentine
[2023-06-13 15:57] VITALS: PULSE 89; RESP 18
[2023-06-13 16:16] LABS: Bedside Glucose 366 mg/dL (74-106)
[2023-06-13 16:31] VITALS: BP 145/65; PULSE 105
== END 2023-06-13 20:45 | disposition short-term general hospital (02) ==
LOC: ED 23:49 → PCU 06-12 00:48
PROVIDERS: Internal Medicine Cardiovascular Disease; Admitting Provider Internal Medicine; Emergency Provider Student in an Organized Health Care Education/Training Program; PCP Internal Medicine; Visit Provider Internal Medicine
DX: I25.110 Atherosclerotic heart disease of native coronary artery with unstable angina pectoris (principal); J44.9 Chronic obstructive pulmonary disease, unspecified; I11.0 Hypertensive heart disease with heart failure; I50.9 Heart failure, unspecified; Z68.43 Body mass index [BMI] 50.0-59.9, adult; E66.01 Morbid (severe) obesity due to excess calories; E11.9 Type 2 diabetes mellitus without complications; Z79.4 Long term (current) use of insulin; Z95.5 Presence of coronary angioplasty implant and graft; Z86.16 Personal history of COVID-19; K21.9 Gastro-esophageal reflux disease without esophagitis; F17.210 Nicotine dependence, cigarettes, uncomplicated; E78.00 Pure hypercholesterolemia, unspecified; Z79.02 Long term (current) use of antithrombotics/antiplatelets; Z79.82 Long term (current) use of aspirin; Z79.899 Other long term (current) drug therapy; Z79.890 Hormone replacement therapy; E03.9 Hypothyroidism, unspecified
CPT/HCPCS: 36415; 71045; 71275; 78452; 80048; 80061; 82962; 84484; 85025; 85379; 93005; 93017; 93454; 93571; 93970; 94640; 96361; 96372; 96374; 96375; 96376; 99152; 99153; 99221; 99285; A9500; J7030; J7040; Q9967; A4216; C1769; C1894; G0378; J2405; J2785

== ENCOUNTER 2023-09-10 15:39 | Emergency (ER) | payer MEDICARE, MEDICAID, SELFPAY ==
[2019-05-06 13:18] VITALS: BMI 56.7
[2023-09-10 15:40] VITALS: BP 137/96; PULSE 87; RESP 18; TEMP 36.6; O2SAT 98; BMI 48.4
--- NOTE | 2023-09-10 17:54 | EDS_ITS ---
HPI History of Present Illness Chief Complaint: Back Informant: patient Onset/Context/Timing Onset: Yesterday Context: Gradual Onset Timing: Continuous Quality: Sharp Location: Lumbar, Buttock and Left Leg Worsened by: improves with Ambulation and - (Certain positions) Relieved by: Nothing Associated Symptoms Associated Symptoms: Radiation to Left Leg; Negative for Numbness, Tingling, Radiation to Right Leg, Fever, Abdominal Pain, Dysuria, Unable to Ambulate, Unable to Transfer, Urinary Retention, Urinary Incontinence, Constipation or Fecal Incontinence Narrative Narrative: Patient presents with back pain that became worse yesterday. Patient states it is gradually gotten worse. Patient states it is over the left lower lumbar area. Patient states it is constant. Patient describes the pain as sharp. Patient states the pain radiates into her left buttock and left thigh. Patient states her pain is worse with ambulation and with certain positions. Patient states nothing seems to help with it. Patient denies any bowel or bladder changes. Patient denies any saddle anesthesia. Patient is concerned that something could be wrong with her hardware from her prior back surgery. [facility] Medical History Abdominal pain Anxiety Asthma Atherosclerotic heart disease of [place] coronary artery without angina pectoris Blood disorder Chest pain of uncertain etiology CHF (congestive heart failure) Chronic obstructive pulmonary disease Chronic pain COVID-19 Current use of insulin Depression Diabetes Diabetes Diabetes mellitus, type II [place] (dyspnea on exertion) Dyspnea Essential hypertension Failure of outpatient treatment Fatigue GERD (gastroesophageal reflux disease) Heart attack High cholesterol History of anxiety History of stress test HTN (hypertension) Hypercholesterolemia Hypothyroidism Irregular heartbeat Morbid obesity with BMI of 50.0-59.9, adult Nicotine dependence Nonadherence to medication GEOVANI (obstructive sleep apnea) Sinus bradycardia by electrocardiogram Sleep apnea Sleep-disordered breathing Smoker ST elevation myocardial infarction (STEMI) of inferior wall Home Medications albuterol sulfate 90 mcg/actuation aerosol inhaler 1 - 2 puff inhalation Q4H PRN PRN Wheezing ##1 10/15/15 [Rx Last Taken 10/19/20] budesonide-formoterol HFA 160 mcg-4.5 mcg/actuation aerosol inhaler 2 puff PO BID breathing 05/07/19 [History Last Taken 10/20/20] insulin regular human 100 unit/mL injection solution 24 units subcut TIDCM diabetes 05/07/19 [History Last Taken 10/20/20] bupropion HCl 300 mg 24 hr tablet, extended release 300 mg PO DAILY MOOD 09/25/20 [History Last Taken 10/20/20] insulin NPH isoph U-100 human 100 unit/mL (3 mL) subcutaneous pen 24 units subcut BIDAC diabetes 04/06/21 [History Last Taken Unknown] metoclopramide HCl 5 mg tablet (Reglan) 5 mg PO TID PRN PRN nausea/vomiting #10 tabs 04/20/21 [Rx Last Taken Unknown] lorazepam 1 mg tablet 0.5 - 1 mg PO TID PRN Anxiety 04/24/21 [History Last Taken Unknown] ondansetron 4 mg disintegrating tablet 4 mg PO Q8H PRN nausea and vomiting #10 tabs 12/31/21 [Rx Last Taken Unknown] atorvastatin 80 mg tablet 80 mg PO QHS cholesterol #90 tabs 03/25/22 [Rx Last Taken Unknown] cyclobenzaprine 10 mg tablet 5 mg PO TID PRN PRN Muscle Spasm 03/25/22 [History Last Taken Unknown] hydralazine 50 mg tablet 50 mg PO BID blood pressure #180 tabs 03/25/22 [Rx Last Taken Unknown] lamotrigine 200 mg tablet 300 mg PO DAILY 03/25/22 [History Last Taken Unknown] levothyroxine 200 mcg tablet 200 mcg PO DAILY 03/25/22 [History Last Taken Unknown] levothyroxine 75 mcg tablet 75 mcg PO DAILY 03/25/22 [History Last Taken Unknown] bupropion HCl 150 mg 24 hr tablet, extended release 150 mg PO DAILY 04/06/23 [History Last Taken Unknown] carvedilol 25 mg tablet 25 mg PO Q12H 04/06/23 [History Last Taken Unknown] gabapentin 100 mg capsule 100 mg PO TID PRN nerve pain 04/06/23 [History Last Taken Unknown] levothyroxine 300 mcg tablet 300 mcg PO .thursday04/06/23 [History Last Taken Unknown] amlodipine 5 mg tablet 5 mg PO DAILY #90 tabs 04/07/23 [Rx Last Taken Unknown] aspirin 81 mg tablet,delayed release 81 mg PO BREAKFAST #90 tabs 04/07/23 [Rx Last Taken Unknown] blood pressure monitor #1 ea 04/30/23 [Rx Last Taken Unknown] hydrochlorothiazide 25 mg tablet 25 mg PO DAILY #30 tabs 04/30/23 [Rx Last Taken Unknown] lisinopril 40 mg tablet 40 mg PO DAILY blood pressure #90 tabs 04/30/23 [Rx Last Taken Unknown] nitroglycerin 0.4 mg sublingual tablet 0.4 mg sublingual Q5-15M PRN chest pain #25 tabs 04/30/23 [Rx Last Taken Unknown] pantoprazole 40 mg tablet,delayed release 40 mg PO DAILY acid reflux #30 tabs 04/30/23 [Rx Last Taken Unknown] ticagrelor 90 mg tablet (Brilinta) See Rx Instructions .Route .COMPLEX #180 tabs 05/15/23 [Rx Last Taken Unknown] hydrocodone-acetaminophen 5-325mg 5mg-325mg 1 tab PO Q6H PRN PRN Pain 3 days #10 TABLETS 09/10/23 [Rx Last Taken Unknown] Allergy/AdvReac Type Severity Reaction Status Date / Time metformin [From Glucophage] AdvReac Intermediate Diarrhea Verified 09/10/23 15:40 Family History Mother Cancer lung Father Hypertension COPD (chronic obstructive pulmonary disease) Daughter Factor V deficiency Grandmother Cancer lung COPD (chronic obstructive pulmonary disease) Surgical History H/O cardiac catheterization History of back surgery History of delivery History of cholecystectomy History of coronary artery stent placement (04/06/23) History of dilatation and curettage History of left heart catheterization (04/06/23) History of percutaneous transluminal coronary angioplasty (~10/20/20) History of tonsillectomy and adenoidectomy History of tubal ligation S/P tubal ligation Social History household members: none Smoking Status: Current every day smoker tobacco type: e-cigarettes alcohol intake: current alcohol intake frequency: holidays/special occasions only substance use type: does not use caffeine: Yes ROS ROS ED Constitutional Constitutional ED: Denies chills or fever(s) Eyes Eyes: Denies blurry vision or change in vision ENT ENT ED: Denies rhinorrhea or sore throat Cardiovascular Cardiovascular: Denies chest pain or palpitations Respiratory/Chest Respiratory/Chest: Denies cough or dyspnea Gastrointestinal Gastrointestinal: Denies nausea or vomiting Genitourinary Genitourinary ED: Denies dysuria or hematuria Musculoskeletal Musculoskeletal: Reports back pain and neck pain Integumentary Denies abscess or rash Neurologic Neurologic: Reports headache(s); Denies weakness Allergic/Immunologic Allergic/Immunologic ED: Denies mouth swelling or urticaria EXAM Physical Exam Const Vital Signs: 09/10/23 15:40 Temperature 97.8 F Temperature Source Temporal Pulse Rate 87 Respiratory Rate 18 Blood Pressure 137/96 H Blood Pressure Mean 109 Pulse Ox 98 Oxygen Delivery Method Room Air Positive well nourished, well developed and obese General Appearance ED: well developed and NAD Nutritional Appearance: obese HEENT Reports moist mucous membranes Neck supple and no JVD Resp normal respiratory effort and clear to auscultation bilaterally Cardio regular rate and regular rhythm GI soft to palpation, non-tender and non-distended Back/Spine Back/Spine Narrative: There is tenderness over the left lumbar paraspinal muscles and sciatic notch. There is no bony crepitance or step-off. There is a well-healed scar in the midline. There is no erythema or warmth noted. There is good range of motion of the lumbar spine. Strength is 5/5 bilaterally in lower extremities. There are no sensory deficits noted. Straight leg raises are negative. Lumbar Spine / Lower Back: straight leg raise negative bilaterally Neuro oriented x3 and no sensory deficits noted Sensorium / Orientation: alert Motor Exam: strength 5/5 throughout MDM MDM MDM Narrative Medical decision making narrative: Differential diagnosis includes lumbosacral strain, spondylolisthesis, and occult fracture. X-rays of the lumbar spine will be obtained to assess for occult fracture. Radiography Diagnostic Testing: Clinical Impression(s) from Imaging Studies Lumbar Spine X-Ray 09/10/23 18:10 IMPRESSION: Degenerative and postoperative changes of the spine, as detailed above. Electronically Signed: Francisco Marrufo MD at 19:07 EST , X-rays of the lumbar spine were obtained. There are 3 views. On my independent interpretation, there is no acute fracture or spondylolisthesis. There is no loosening of the hardware. There are some degenerative changes noted. Radiologist also interpreted the x-rays and agrees. Treatment and Re-Evaluation Narrative: Patient was given a dose of morphine here. Patient was also given a dose of Phenergan. Patient was feeling better on reevaluation. Patient was advised of her findings. Patient was given a prescription for a short course of [place]. Patient was instructed to follow-up with her primary care physician in 5 to 7 days. Patient understood and was agreeable with the plan. All questions were answered. Discharge Plan Triage Chief Complaint: Back ED Provider: Abrahan Ojeda Dx/Rx/DC Orders Clinical Impression: Sciatica of left side, Acute lumbosacral myofascial strain Instructions: ED Back Sprain/Strain, ED Sciatica Prescriptions: New hydrocodone-acetaminophen [hydrocodone-acetaminophen] 5-325 mg tablet 1 tab PO Q6H PRN PRN (Reason: Pain) 3 Days Qty: 10 0RF No Action levothyroxine 75 mcg tablet 75 mcg PO DAILY levothyroxine 200 mcg tablet 200 mcg PO DAILY lamotrigine 200 mg tablet 300 mg PO DAILY hydralazine 50 mg tablet 50 mg PO BID Qty: 180 3RF atorvastatin 80 mg tablet 80 mg PO QHS Qty: 90 3RF lisinopril 40 mg tablet 40 mg PO DAILY Qty: 90 3RF pantoprazole 40 mg tablet,delayed release (DR/EC) 40 mg PO DAILY Qty: 30 11RF hydrochlorothiazide 25 mg tablet 25 mg PO DAILY Qty: 30 11RF nitroglycerin 0.4 mg tablet, sublingual 0.4 mg sublingual Q5-15M PRN (Reason: chest pain) Qty: 25 3RF Rx Instructions: do not exceed 3 doses per episode (DME) blood pressure monitor Kit See Rx Instructions .Route Qty: 1 0RF Rx Instructions: As directed albuterol sulfate 1 INHALER inhaler 1 - 2 puff inhalation Q4H PRN PRN (Reason: Wheezing) Qty: 1 0RF Patient Comments: asthma budesonide-formoterol 160-4.5MCG inhaler 2 puff PO BID insulin regular human 100 UNIT/ML solution 24 units subcut TIDCM cyclobenzaprine 10 mg tablet 5 mg PO TID PRN PRN (Reason: Muscle Spasm) bupropion HCl 300 MG tablet extended release 24 hr 300 mg PO DAILY insulin NPH isoph U-100 human 100 UNITS/ML insulin pen 24 units subcut BIDAC Rx Instructions: breakfast and supper metoclopramide HCl [Reglan] 5 mg tablet 5 mg PO TID PRN PRN (Reason: nausea/vomiting) Qty: 10 0RF lorazepam 1 mg tablet 0.5 - 1 mg PO TID PRN (Reason: Anxiety) Patient Comments: Please take half to one tablet daily as needed for anxiety ondansetron 4 mg tablet,disintegrating 4 mg PO Q8H PRN (Reason: nausea and vomiting) Qty: 10 0RF levothyroxine 300 mcg tablet 300 mcg PO .thursday Patient Comments: Take 1 tablet by mouth daily before breakfast on Sundays. (Other days of the week take 275mcg once daily) bupropion HCl 150 mg tablet extended release 24 hr 150 mg PO DAILY Patient Comments: take 1 tablet by mouth once daily ALONG WITH BUPROPRION 300 MG carvedilol 25 mg tablet 25 mg PO Q12H Patient Comments: Take 1 tablet by mouth twice daily. gabapentin 100 mg capsule 100 mg PO TID PRN (Reason: nerve pain) Patient Comments: TAKE 1 CAPSULE BY MOUTH before bed for a few days, increase to 1 IN THE MORNING and 1 IN THE EVENING for a few days, then 1 THREE TIMES DAILY aspirin 81 mg Tablet,Delayed Release (Dr/Ec) 81 mg PO BREAKFAST Qty: 90 0RF amlodipine 5 mg tablet 5 mg PO DAILY Qty: 90 0RF Brilinta 90 mg tablet See Rx Instructions .ROUTE .COMPLEX Qty: 180 3RF Dose Instruction: 03/27/22 TAKE 1 TABLET BY MOUTH TWICE DAILY Rx Instructions: 03/27/22 TAKE 1 TABLET BY MOUTH TWICE DAILY Primary Care Provider: Carlotta Galindo Referrals: Carlotta Galindo MD [Primary Care Provider] - 3-5 Days Disposition Disposition: Home, Self Care
[2023-09-10] MEDS: Morphine 4 MG/ML Syringe IM (18:03)
--- NOTE | 2023-09-10 18:10 | RAD_ITS ---
STUDY: X-RAY - LUMBAR SPINE REASON FOR EXAM: Female, 47 years old. Injury/Pain TECHNIQUE: 3 view(s) of the lumbar spine were obtained. COMPARISON: September 12, 2021 FINDINGS: Normal lumbar lordosis. There is no substantial scoliosis. There is grade 2 anterolisthesis at L5-S1. There is posterior fusion from L4 through S1 with bilateral pedicle screws and rods. There is hardware in the L5-S1 disc space. There is multilevel endplate spondylosis of the lumbar vertebrae. There is no acute fracture. There is atherosclerotic calcification of the abdominal aorta without a demonstrated aneurysm. RAD/Lumbar Spine 2 or 3 Views IMPRESSION: Degenerative and postoperative changes of the spine, as detailed above. Electronically Signed: Francisco Marrufo MD at 19:07 EST ,
[2023-09-10] MEDS: proMETHazine 25 MG/ML Syringe 6.25 MG IM (18:51)
== END 2023-09-10 20:08 | disposition home or self-care (01) ==
PROVIDERS: Emergency Provider Emergency Medicine; PCP Internal Medicine; Visit Provider Emergency Medicine
DX: S39.012A Strain of muscle, fascia and tendon of lower back, initial encounter (principal); I11.0 Hypertensive heart disease with heart failure; I50.9 Heart failure, unspecified; E66.01 Morbid (severe) obesity due to excess calories; Z68.42 Body mass index [BMI] 45.0-49.9, adult; E11.9 Type 2 diabetes mellitus without complications; Z79.4 Long term (current) use of insulin; X58.XXXA Exposure to other specified factors, initial encounter; M54.42 Lumbago with sciatica, left side; I25.10 Atherosclerotic heart disease of native coronary artery without angina pectoris; I25.2 Old myocardial infarction; F17.290 Nicotine dependence, other tobacco product, uncomplicated; Z95.5 Presence of coronary angioplasty implant and graft; Z79.02 Long term (current) use of antithrombotics/antiplatelets; Z79.82 Long term (current) use of aspirin; Z79.899 Other long term (current) drug therapy; Z86.16 Personal history of COVID-19
CPT/HCPCS: 72100; 96372; 99282

== ENCOUNTER 2023-10-06 02:09 | Inpatient (IN) | payer MEDICARE, SELFPAY ==
[2019-05-06 13:18] VITALS: BMI 56.7
[2023-10-06] VITALS (38 sets, daily range): BP systolic 95–187; BP diastolic 52–132; PULSE 68–133; RESP 12–23; TEMP 35.8–36.9; O2SAT 93–98; BMI 49.1; BMI 48.2
--- NOTE | 2023-10-06 02:38 | RAD_ITS ---
EXAM: XR CHEST, 1 VIEW CLINICAL INDICATION: CP TECHNIQUE: Frontal view of the chest. COMPARISON: Single view chest 06/11/2023 FINDINGS: LUNGS AND PLEURAL SPACES: Unremarkable. No consolidation or edema. No pneumothorax. No effusion. HEART: Unremarkable. Cardiac silhouette not enlarged. MEDIASTINUM: Central airways and mediastinal contour are unremarkable. BONES/JOINTS: Unremarkable. No acute fracture. SOFT TISSUES: Unremarkable. RAD/Chest 1 View (Portable) IMPRESSION: No radiographic evidence of acute cardiopulmonary disease. Electronically Signed: Garrett Glover MD at 4:09 EDT ,
--- NOTE | 2023-10-06 02:38 | EKG12_ITS ---
Test Reason : CP Blood Pressure : / mmHG Vent. Rate : 095 BPM Atrial Rate : 095 BPM P-R Int : 186 ms QRS Dur : 084 ms QT Int : 378 ms P-R-T Axes : 026 -14 027 degrees QTc Int : 475 ms Sinus rhythm with occasional Premature ventricular complexes Minimal voltage criteria for LVH, may be normal variant ( R in aVL ) Inferior infarct , age undetermined Abnormal ECG Confirmed by Jamey Maria ([id number]), associate entertainment editor ODALYS PHILIPPE ([id number]) on 10/06/2023 10:07:32 AM Referred By: CECILIA Confirmed By:Jamey Maria
--- NOTE | 2023-10-06 02:39 | ED.VIS.CHEST ---
HPI History of Present Illness Chief Complaint: Chest Pain Informant: patient and EMS Onset/Context/Timing Onset: Days (3) Timing: Intermittent (With activities, but now constant at rest for the last several hours) Quality: Positive for Indigestion Location: Substernal (With radiation into the left neck and shoulder) Current Severity: Moderate Maximum Severity: Severe Worsened By: Exertion; Not Worsened By Breathing Relieved By: Nothing Associated Symptoms: Positive for Diaphoresis, Dyspnea and Acid Reflux (Sensation); Negative for Nausea, Vomiting, Cough, Fever, Lightheadedness or Palpitations Narrative Narrative: Patient with a significant cardiac history and has 9 stents. She feels like she is having the same discomfort that she has with prior angina. She states it feels like indigestion but she knows it is not reflux because she is on Protonix and that controls her actual acid reflux very well. It has been for the past 3 days intermittent with light activity, better with resting. However tonight for the last several hours, it has been at rest, symptoms of a more severe, and she has felt short of breath which is new in the last 3 days. She took 3 nitroglycerin prior to getting here which did not seem to help significantly. She states the last time she was admitted for discomfort like this, she ended up with a blockage that was difficult to get to and she was transferred to where she states they were thinking of doing a triple bypass on her but then they did something different, ended up putting a stent in, doing something different such as extracting the clot from a different area that was difficult to get to. She states they want to do more intervention but is wanted to optimize her weight/obesity and blood sugar control first. She states she is seeking a second opinion and actually had an appointment tomorrow with [facility] Dr[facility] Jame[facility] Lazar ([facility] [place] Medical History Abdominal pain Anxiety Asthma Atherosclerotic heart disease of [place] coronary artery without angina pectoris Blood disorder Chest pain of uncertain etiology CHF (congestive heart failure) Chronic obstructive pulmonary disease Chronic pain COVID-19 Current use of insulin Depression Diabetes Diabetes Diabetes mellitus, type II BULLOCK (dyspnea on exertion) Dyspnea Essential hypertension Failure of outpatient treatment Fatigue GERD (gastroesophageal reflux disease) Heart attack High cholesterol History of anxiety History of stress test HTN (hypertension) Hypercholesterolemia Hypothyroidism Irregular heartbeat Morbid obesity with BMI of 50.0-59.9, adult Nicotine dependence Nonadherence to medication GEOVANI (obstructive sleep apnea) Sinus bradycardia by electrocardiogram Sleep apnea Sleep-disordered breathing Smoker ST elevation myocardial infarction (STEMI) of inferior wall Home Medications albuterol sulfate 90 mcg/actuation aerosol inhaler 1 - 2 puff inhalation Q4H PRN PRN Wheezing ##1 10/15/15 [Rx Last Taken 10/19/20] budesonide-formoterol HFA 160 mcg-4.5 mcg/actuation aerosol inhaler 2 puff PO BID breathing 05/07/19 [History Last Taken 10/20/20] bupropion HCl 300 mg 24 hr tablet, extended release 300 mg PO DAILY MOOD 09/25/20 [History Last Taken 10/20/20] lorazepam 1 mg tablet 0.5 - 1 mg PO TID PRN Anxiety 04/24/21 [History Last Taken Unknown] ondansetron 4 mg disintegrating tablet 4 mg PO Q8H PRN nausea and vomiting #10 tabs 12/31/21 [Rx Last Taken Unknown] atorvastatin 80 mg tablet 80 mg PO QHS cholesterol #90 tabs 03/25/22 [Rx Last Taken Unknown] cyclobenzaprine 10 mg tablet 5 mg PO TID PRN PRN Muscle Spasm 03/25/22 [History Last Taken Unknown] levothyroxine 200 mcg tablet 200 mcg PO DAILY 03/25/22 [History Last Taken Unknown] levothyroxine 75 mcg tablet 75 mcg PO DAILY 03/25/22 [History Last Taken Unknown] bupropion HCl 150 mg 24 hr tablet, extended release 150 mg PO DAILY 04/06/23 [History Last Taken Unknown] carvedilol 25 mg tablet 25 mg PO Q12H 04/06/23 [History Last Taken Unknown] gabapentin 100 mg capsule 100 mg PO TID PRN nerve pain 04/06/23 [History Last Taken Unknown] levothyroxine 300 mcg tablet 300 mcg PO .thursday04/06/23 [History Last Taken Unknown] aspirin 81 mg tablet,delayed release 81 mg PO BREAKFAST #90 tabs 04/07/23 [Rx Last Taken Unknown] blood pressure monitor #1 ea 04/30/23 [Rx Last Taken Unknown] lisinopril 40 mg tablet 40 mg PO DAILY blood pressure #90 tabs 04/30/23 [Rx Last Taken Unknown] nitroglycerin 0.4 mg sublingual tablet 0.4 mg sublingual Q5-15M PRN chest pain #25 tabs 04/30/23 [Rx Last Taken Unknown] pantoprazole 40 mg tablet,delayed release 40 mg PO DAILY acid reflux #30 tabs 04/30/23 [Rx Last Taken Unknown] ticagrelor 90 mg tablet (Brilinta) See Rx Instructions .Route .COMPLEX #180 tabs 05/15/23 [Rx Last Taken Unknown] blood sugar diagnostic (OneTouch Verio test strips) 10/06/23 [History Last Taken Unknown] blood-glucose meter (OneTouch Verio Flex Meter) 10/06/23 [History Last Taken Unknown] flash glucose sensor (FreeStyle Konstantin 2 Sensor kit) 10/06/23 [History Last Taken Unknown] insulin aspart U-100 100 unit/mL (3 mL) subcutaneous pen (Novolog FlexPen U-100 Insulin aspart) 15 unit subcut BID 10/06/23 [History Last Taken Unknown] insulin glargine 100 unit/mL (3 mL) subcutaneous pen (Lantus Solostar U-100 Insulin) 35 unit subcut QHS 10/06/23 [History Last Taken Unknown] insulin syringe-needle U-100 0.5 mL 31 gauge x 5/16 (BD Insulin Syringe Ultra-Fine) 10/06/23 [History Last Taken Unknown] isosorbide mononitrate 60 mg tablet,extended release 24 hr 60 mg PO DAILY 10/06/23 [History Last Taken Unknown] lamotrigine 150 mg tablet 150 mg PO BID 10/06/23 [History Last Taken Unknown] lamotrigine 25 mg tablet 50 mg PO DAILY 10/06/23 [History Last Taken Unknown] lancets 33 gauge (Unilet Lancet) 10/06/23 [History Last Taken Unknown] naproxen 500 mg tablet 500 mg PO BID pain 10/06/23 [History Last Taken Unknown] promethazine 25 mg tablet 25 mg PO Q6H PRN PRN colitis 10/06/23 [History Last Taken Unknown] ranolazine 500 mg tablet,extended release,12 hr 500 mg PO BID 10/06/23 [History Last Taken Unknown] Allergy/AdvReac Type Severity Reaction Status Date / Time metformin [From Glucophage] AdvReac Intermediate Diarrhea Verified 10/06/23 02:17 Family History Mother Cancer lung Father Hypertension COPD (chronic obstructive pulmonary disease) Daughter Factor V deficiency Grandmother Cancer lung COPD (chronic obstructive pulmonary disease) Surgical History H/O cardiac catheterization History of back surgery History of delivery History of cholecystectomy History of coronary artery stent placement (04/06/23) History of dilatation and curettage History of left heart catheterization (04/06/23) History of percutaneous transluminal coronary angioplasty (~10/20/20) History of tonsillectomy and adenoidectomy History of tubal ligation S/P tubal ligation Social History household members: none Smoking Status: Former smoker alcohol intake: current alcohol intake frequency: holidays/special occasions only substance use type: does not use caffeine: Yes ROS ROS ED Constitutional Constitutional ED: Reports sweats; Denies chills or fever(s) Eyes Eyes: Denies change in vision or diplopia ENT ENT ED: Denies rhinorrhea or sore throat Cardiovascular Cardiovascular: Reports as per HPI, chest pain and radiating jaw, neck or arm pain; Denies palpitations or pedal edema Respiratory/Chest Respiratory/Chest: Reports dyspnea; Denies cough Gastrointestinal Gastrointestinal: Denies abdominal pain, diarrhea, nausea or vomiting Genitourinary Genitourinary ED: Denies dysuria or hematuria Musculoskeletal Musculoskeletal: Denies back pain or neck pain Integumentary Denies abscess or rash Neurologic Neurologic: Denies headache(s), paresthesias or weakness Psychiatric Psychiatric: Denies anxiety or suicidal thoughts EXAM Physical Exam Const Vital Signs: 10/06/23 02:10 10/06/23 02:47 10/06/23 03:12 Temperature 98.5 F Temperature Source Temporal Pulse Rate 103 H 89 Respiratory Rate 12 Blood Pressure 167/91 H 163/90 H Blood Pressure Mean 116 114 Blood Pressure Source Blood Pressure Position Blood Pressure Location Pulse Ox 97 Oxygen Delivery Method Room Air Room Air 10/06/23 03:23 10/06/23 02:49 10/06/23 03:00 Temperature Temperature Source Pulse Rate 93 Respiratory Rate 16 Blood Pressure 141/88 H 187/124 H Blood Pressure Mean 105 142 Blood Pressure Source Monitor Blood Pressure Position Sitting Blood Pressure Location Left Forearm Pulse Ox 94 Oxygen Delivery Method 10/06/23 03:09 10/06/23 04:00 10/06/23 04:44 Temperature Temperature Source Pulse Rate 92 68 Respiratory Rate 23 H 19 H Blood Pressure 163/90 H 135/90 H 142/80 H Blood Pressure Mean 112 105 100 Blood Pressure Source Monitor Blood Pressure Position Sitting Blood Pressure Location Left Arm Pulse Ox 97 94 Oxygen Delivery Method Room Air 10/06/23 05:09 10/06/23 05:34 10/06/23 06:00 Temperature 96.4 F L Temperature Source Tympanic Pulse Rate 101 H 98 Respiratory Rate 19 H 15 Blood Pressure 142/80 H 157/104 H 143/95 H Blood Pressure Mean 100 121 111 Blood Pressure Source Monitor Blood Pressure Position Sitting Blood Pressure Location Left Forearm Pulse Ox 97 Oxygen Delivery Method Room Air Room Air 10/06/23 06:24 10/06/23 07:00 Temperature Temperature Source Pulse Rate 103 H Respiratory Rate 19 H Blood Pressure 136/84 H 124/85 H Blood Pressure Mean 101 98 Blood Pressure Source Monitor Blood Pressure Position Semi-Fowlers Blood Pressure Location Left Forearm Pulse Ox 96 Oxygen Delivery Method Room Air Positive well nourished, well developed and obese General Appearance ED: well developed and NAD Nutritional Appearance: obese HEENT Reports moist mucous membranes normocephalic and atraumatic Eyes PERRL and EOMs intact bilaterally Neck full ROM, supple and no JVD Resp normal respiratory effort and clear to auscultation bilaterally Cardio regular rate, regular rhythm and no murmurs Rate: Negative for tachycardic GI non-tender and non-distended Auscultation: normoactive bowel sounds Palpation: soft Back/Spine no CVA tenderness General Back: other FROM Extremity normal to inspection General Extremety ED: Negative for edema, pulses abnormal or tenderness General Extremity: Negative for edema or pulses abnormal Neuro oriented x3, CN's II-XII intact bilaterally and no sensory deficits noted Sensorium / Orientation: awake and alert Motor Exam: strength 5/5 throughout Psych mental status grossly normal Skin no rashes or lesions noted and no wounds Heart Score History: Highly Suspicious ECG: Nonspecific Repolarization Age: >45 - <65 years Risk Factors: >/= 3 Risk Factors or History of CAD Troponin: </= Normal Limit Score: 6 MDM MDM MDM Narrative Medical decision making narrative: Patient's EKG shows PVC but is otherwise unchanged, and 2 sets of enzymes are essentially negative, the initial measurement is 5 and the second measurement is 7. I placed her on a nitroglycerin drip, gave her aspirin, and on reexamination she still having discomfort, only a little improved compared with before. Therefore given morphine. Patient states this has happened before and she is usually taken to the Nutritional Services Director due to her heart score and risk. In line with this, looking at recent records, in June she had a negative stress test and I took her to the Nutritional Services Director and she needed intervention for 2 significant stenoses which is when she was transferred to a tertiary care center with a level 3 Nutritional Services Director. Right now patient is clinically and hemodynamically stable but still having discomfort. I discussed with our avaya engineer on-call Dr. Maria and discussed the information that I have available right now. He agrees that the patient needs a higher level of care than we can provide, since it sounds like she has a complex coronary issue at this time. I discussed with cardiology and internal medicine at [facility], they are accepting her to [facility]. I am starting the patient on heparin drip in addition to the nitroglycerin. Lab Data Attestation: I reviewed the patient's lab results. Labs: Laboratory Results - last 24 hr 10/06/23 10/06/23 10/06/23 02:18 04:25 06:37 WBC 11.4 H RBC 4.74 Hgb 14.9 Hct 44.2 MCV 93.2 MCH 31.4 MCHC 33.7 RDW Std Deviation 44.3 H RDW Coeff of Whitney 13.1 Plt Count 278 MPV 11.2 Immature Gran % (Auto) 0.400 Neut % (Auto) 36.4 L Lymph % (Auto) 45.6 H [place] % (Auto) 8.7 Eos % (Auto) 8.3 H Baso % (Auto) 0.6 Absolute Neuts (auto) 4.2 Absolute Lymphs (auto) 5.20 H Nucleated RBC % 0 Differential Comment SCANNED PT 15.9 H INR 1.3 APTT 24.4 > 200.0 H* Sodium 138 Potassium 3.9 Chloride 106 Carbon Dioxide 24.0 Anion Gap 8 BUN 11 Creatinine 0.80 Estim Creat Clear Calc 116.61 Est GFR (MDRD) Af Amer 98 Est GFR (MDRD) Non-Af 81 BUN/Creatinine Ratio 13.8 Glucose 303 H Calcium 8.8 Troponin I High Sens 5 7 Radiography Chest X-Ray - ED: 1 View, Read by ED Physician, No Acute Disease and No Infiltrates Diagnostic Testing: Clinical Impression(s) from Imaging Studies Chest X-Ray 10/06/23 02:38 IMPRESSION: No radiographic evidence of acute cardiopulmonary disease. Electronically Signed: Garrett Glover MD at 4:09 EDT , Rhythm Strip Rhythm Strip: Sinus Rhythm Rate: 95 Ectopy: PVC(s) EKG Initial EKG: Attestation: I personally reviewed and interpreted this EKG as follows: Interpretation: Sinus Rhythm, No Acute Injury Pattern and Non-Specific ST Changes (Inferiorly) Comments: PVC present Prior EKG tracings: available for review Prior: Unchanged Management Discussion w/another healthcare provider: Program Support Specialist ([facility] Dr. Maria) Critical Care Time Critical Care Time: Yes Critical care time (excluding procedures): 30-74 minutes (40 min), Including time spent:, Discussing w/Patient &/or Family/Waiter/Waitress Informal, Discussing w/Consultants, Arranging Admission or Transfer and Performing Direct Patient Care at Bedside Discharge Plan Triage Chief Complaint: Chest Pain ED Provider: Francisco Jackson Dx/Rx/DC Orders Clinical Impression: Unstable angina Prescriptions: No Action levothyroxine 75 mcg tablet 75 mcg PO DAILY levothyroxine 200 mcg tablet 200 mcg PO DAILY atorvastatin 80 mg tablet 80 mg PO QHS Qty: 90 3RF lisinopril 40 mg tablet 40 mg PO DAILY Qty: 90 3RF pantoprazole 40 mg tablet,delayed release (DR/EC) 40 mg PO DAILY Qty: 30 11RF nitroglycerin 0.4 mg tablet, sublingual 0.4 mg sublingual Q5-15M PRN (Reason: chest pain) Qty: 25 3RF Rx Instructions: do not exceed 3 doses per episode (DME) blood pressure monitor Kit See Rx Instructions .Route Qty: 1 0RF Rx Instructions: As directed albuterol sulfate 1 INHALER inhaler 1 - 2 puff inhalation Q4H PRN PRN (Reason: Wheezing) Qty: 1 0RF Patient Comments: asthma budesonide-formoterol 160-4.5MCG inhaler 2 puff PO BID cyclobenzaprine 10 mg tablet 5 mg PO TID PRN PRN (Reason: Muscle Spasm) bupropion HCl 300 MG tablet extended release 24 hr 300 mg PO DAILY lorazepam 1 mg tablet 0.5 - 1 mg PO TID PRN (Reason: Anxiety) Patient Comments: Please take half to one tablet daily as needed for anxiety ondansetron 4 mg tablet,disintegrating 4 mg PO Q8H PRN (Reason: nausea and vomiting) Qty: 10 0RF levothyroxine 300 mcg tablet 300 mcg PO .thursday Patient Comments: Take 1 tablet by mouth daily before breakfast on Sundays. (Other days of the week take 275mcg once daily) bupropion HCl 150 mg tablet extended release 24 hr 150 mg PO DAILY Patient Comments: take 1 tablet by mouth once daily ALONG WITH BUPROPRION 300 MG carvedilol 25 mg tablet 25 mg PO Q12H Patient Comments: Take 1 tablet by mouth twice daily. gabapentin 100 mg capsule 100 mg PO TID PRN (Reason: nerve pain) Patient Comments: TAKE 1 CAPSULE BY MOUTH before bed for a few days, increase to 1 IN THE MORNING and 1 IN THE EVENING for a few days, then 1 THREE TIMES DAILY aspirin 81 mg Tablet,Delayed Release (Dr/Ec) 81 mg PO BREAKFAST Qty: 90 0RF (DME) blood-glucose meter [OneTouch Verio Flex meter] Misc MISCELLANEOUS UD (DME) OneTouch Verio test strips Strip MISCELLANEOUS Patient Comments: [NO ORIGINAL SIG] insulin aspart U-100 [Novolog FlexPen U-100 Insulin] 100 unit/mL (3 mL) insulin pen 15 unit subcut BID (DME) FreeStyle Konstantin 2 Sensor Kit MISCELLANEOUS Patient Comments: Apply new sensor every fourteen (14) days to upper arm. lamotrigine 150 mg tablet 150 mg PO BID lamotrigine 25 mg tablet 50 mg PO DAILY isosorbide mononitrate 60 mg tablet extended release 24 hr 60 mg PO DAILY promethazine 25 mg tablet 25 mg PO Q6H PRN PRN (Reason: colitis) (DME) insulin syringe-needle U-100 [BD Insulin Syringe Ultra-Fine] 0.5 mL 31 gauge x 5/16 syringe 1 syringe MISCELLANEOUS TID naproxen 500 mg tablet 500 mg PO BID insulin glargine [Lantus Solostar U-100 Insulin] 100 unit/mL (3 mL) insulin pen 35 unit subcut QHS (DME) lancets [Unilet Lancet] 33 gauge misc MISCELLANEOUS 4X/DAY ranolazine 500 mg tablet extended release 12 hr 500 mg PO BID Brilinta 90 mg tablet See Rx Instructions .ROUTE .COMPLEX Qty: 180 3RF Dose Instruction: 03/27/22 TAKE 1 TABLET BY MOUTH TWICE DAILY Rx Instructions: 03/27/22 TAKE 1 TABLET BY MOUTH TWICE DAILY Primary Care Provider: Carlotta Galindo Referrals: Carlotta Galindo MD [Primary Care Provider] - Disposition Disposition: Acute Care Hospital
[2023-10-06] MEDS: Ondansetron 4 MG/2 ML Vial IV ×2 (02:43→23:42)
[2023-10-06] MEDS: Aspirin 81 MG TAB.CHEW 324 MG PO (02:43)
[2023-10-06 02:46] LABS: Absolute Neutrophil Count 4.2 X10^3/uL (2.0-7.7); Basophil# 0.07 X10^3/uL; Basophil% 0.6 % (0-1); Eosinophil# 0.95 X10^3/uL; Eosinophils% 8.3 % (0-5); Hematocrit 44.2 % (37-47); Hemoglobin 14.9 g/dL (12.0-15.0); Lymphocyte % 45.6 % (19-41); Mean Corp Hgb Conc 33.7 g/dL (32-36); Mean Corpuscular Hgb 31.4 pg (27.0-32.0); Mean Corpuscular Volume 93.2 fL (81-99); Mean Platelet Vol. 11.2 fl (6.2-12.0); Monocyte# 0.99 X10^3/uL; Monocyte% 8.7 % (0-10); NRBC Flagged by Analyzer 0 % (0-5); Neutrophil # 4.16 X10^3/uL (2.7-7.7); Neutrophil % 36.4 % (47-70); POSITIVE DIFFERENTIAL YES; POSITIVE MORPHOLOGY YES; Platelet Count 278 K/mm3 (150-450); RBC Distribution Width CV 13.1 % (11.6-14.6); RBC Distribution Width SD 44.3 fl (35.1-43.9); Red Blood Count 4.74 M/mm3 (4.2-5.4); White Blood Count 11.4 K/mm3 (4.4-11.0)
[2023-10-06 03:12] LABS: Differential Indicated SCAN CRITERIA MET
[2023-10-06] MEDS: Nitroglycerin Infusion 250 ML 3 MG CONT INF (03:12)
[2023-10-06 03:13] LABS: Differential Comment SCANNED
[2023-10-06 03:16] LABS: Partial Thromboplast Time 24.4 Seconds (24.1-36.2)
[2023-10-06 03:24] LABS: Anion Gap 8 (5-15); BUN 11 mg/dL (7-18); BUN/Creat Ratio 13.8 RATIO (10-20); Calcium,Total 8.8 mg/dL (8.5-10.1); Chloride 106 mmol/L (98-107); EST Glomerular Filtration Rate 81 mL/min (>60); Est Glom Filt Rate - Afr Amer 98 mL/min (>60); Estimated Creatinine Clearance 116.61 ml/min; Glucose 303 mg/dL (74-106); Potassium 3.9 mmol/L (3.5-5.1); Sodium Level 138 mmol/L (136-145); Troponin-I HS (w/2H Reflex) 5 pg/mL (3.0-54.0)
[2023-10-06 04:43] LABS: Reflex Troponin-HS? (from REC) Y
[2023-10-06 05:06] LABS: Troponin-I HS 7 pg/mL (3.0-54.0)
[2023-10-06] MEDS: Morphine 4 MG/ML Syringe IV ×4 (05:38→14:48)
[2023-10-06] MEDS: Heparin Injection (Vial) 5,000 UNIT/ML VIAL 4000 UNIT IV (06:26)
[2023-10-06 06:56] LABS: International Normalized Ratio 1.3; Prothrombin Time (Protime)PT. 15.9 SECONDS (11.7-14.9)
[2023-10-06] MEDS: HEPARIN/D5w 25,000 UNITS 25,000 UNITS/250 ML IV.SOLN. 10 UNITS CONT INF (07:12)
[2023-10-06] MEDS: Acetaminophen 500 MG Tablet 1000 MG PO (07:13)
[2023-10-06 07:26] LABS: Partial Thromboplast Time > 200.0 Seconds (24.1-36.2)
--- NOTE | 2023-10-06 08:33 | ED.RN ---
Heparin stopped at 0730 her protocol for a critical PTT. Per protocal, restart heparin 90 minutes after stopped and start it at 300 units less than initial dose.
--- NOTE | 2023-10-06 11:47 | NURSING ---
CALLED [facility] TRANSFER LINE. NO BED AT [place] YET.
[2023-10-06] MEDS: Nitroglycerin Infusion 250 ML 36 MG CONT INF (13:51)
[2023-10-06] MEDS: Insulin Lispro 100 UNIT/ML INSULN.PEN 15 UNIT SC (14:00)
--- NOTE | 2023-10-06 14:22 | PCM.HP.STD ---
HPI - General General Date of Admission: 10/06/23 Date of Service: 10/06/23 Chief Complaint: Chest pain with known history of extensive CAD HPI Narrative ADELFO BACK, is a 48 F who presented to [facility] ED on 10/06/2023 with chest pain. Patient seen at bedside in the ED. Was sitting up fairly comfortably in bed, conversing normally, in no acute distress. Patient has a known history of extensive CAD with stenting. She was previously hospitalized at [facility] from 06/12-06/13/2023 for chest pain. Cardiology followed and left heart cath was done on 06/12, showed severe RCA lesion as well as patent stent to proximal LAD, 70% mid LAD lesion, in-stent restenosis of proximal-mid RCA. Patient was referred to a tertiary center for consideration for laser/rotablation/brachytherapy to the RCA as well as rotablation/shockwave lithotripsy to mid LAD. Patient was then transferred to [facility] on 06/13 in stable condition. Per [facility] records, patient was hospitalized at until 06/23. Per that discharge summary, cardiothoracic surgery and interventional cardiology both followed during that hospitalization. Initially, decision was made to not pursue cardiac surgery or PCI but to pursue maximum medical therapy only with a focus on weight control, A1c authorization and referral to a specific outpatient clinic. Her home Brilinta and lisinopril were resumed, and Ranexa was added for ongoing chest discomfort. Was noted that despite adding antianginal agents, patient continued to experience ongoing angina. Decision was then made to pursue PCI. Had PCI to proximal RCA with laser to previously placed stent done on 06/22. Patient noted today that she was seeking a second opinion with [facility] cardiology and was scheduled to see them in the office today. However, patient began to have worsening chest discomfort this morning and came to the ED for further evaluation. EKG on admit showed normal sinus rhythm, no acute ST changes. Initial troponin was normal. Chest x-ray was nonacute. Given patient's history, she was initiated on heparin drip in the ED as well as a nitroglycerin drip for ongoing chest pain. Transfer to [facility] was then initiated. Unfortunately, patient remained in our ED for several hours and ED physician confirmed with [facility] that they would not have a bed available until 10/06 at the earliest. Hospitalist was then contacted for admission. Notably, when I saw the patient she appeared fairly comfortable but was reporting that her chest pain was a 6/10 despite being on nitroglycerin at a rate of 60. She had also been given 4 doses of IV morphine 4 mg since arrival to the ED earlier this morning. She did note that the morphine was helpful for pain. She otherwise denies any acute concerns at that time. [facility] Medical History Abdominal pain Anxiety Asthma Atherosclerotic heart disease of [place] coronary artery without angina pectoris Blood disorder Chest pain of uncertain etiology CHF (congestive heart failure) Chronic obstructive pulmonary disease Chronic pain COVID-19 Current use of insulin Depression Diabetes Diabetes Diabetes mellitus, type II BULLOCK (dyspnea on exertion) Dyspnea Essential hypertension Failure of outpatient treatment Fatigue GERD (gastroesophageal reflux disease) Heart attack High cholesterol History of anxiety History of stress test HTN (hypertension) Hypercholesterolemia Hypothyroidism Irregular heartbeat Morbid obesity with BMI of 50.0-59.9, adult Nicotine dependence Nonadherence to medication GEOVANI (obstructive sleep apnea) Sinus bradycardia by electrocardiogram Sleep apnea Sleep-disordered breathing Smoker ST elevation myocardial infarction (STEMI) of inferior wall Home Medications albuterol sulfate 90 mcg/actuation aerosol inhaler 1 - 2 puff inhalation Q4H PRN PRN Wheezing ##1 10/15/15 [Rx Last Taken 10/19/20] budesonide-formoterol HFA 160 mcg-4.5 mcg/actuation aerosol inhaler 2 puff PO BID breathing 05/07/19 [History Last Taken 10/20/20] bupropion HCl 300 mg 24 hr tablet, extended release 300 mg PO DAILY MOOD 09/25/20 [History Last Taken 10/20/20] lorazepam 1 mg tablet 0.5 - 1 mg PO TID PRN Anxiety 04/24/21 [History Last Taken Unknown] ondansetron 4 mg disintegrating tablet 4 mg PO Q8H PRN nausea and vomiting #10 tabs 12/31/21 [Rx Last Taken Unknown] atorvastatin 80 mg tablet 80 mg PO QHS cholesterol #90 tabs 03/25/22 [Rx Last Taken Unknown] cyclobenzaprine 10 mg tablet 5 mg PO TID PRN PRN Muscle Spasm 03/25/22 [History Last Taken Unknown] levothyroxine 200 mcg tablet 200 mcg PO DAILY 03/25/22 [History Last Taken Unknown] levothyroxine 75 mcg tablet 75 mcg PO DAILY 03/25/22 [History Last Taken Unknown] bupropion HCl 150 mg 24 hr tablet, extended release 150 mg PO DAILY 04/06/23 [History Last Taken Unknown] carvedilol 25 mg tablet 25 mg PO Q12H 04/06/23 [History Last Taken Unknown] gabapentin 100 mg capsule 100 mg PO TID PRN nerve pain 04/06/23 [History Last Taken Unknown] levothyroxine 300 mcg tablet 300 mcg PO .thursday04/06/23 [History Last Taken Unknown] aspirin 81 mg tablet,delayed release 81 mg PO BREAKFAST #90 tabs 04/07/23 [Rx Last Taken Unknown] blood pressure monitor #1 ea 04/30/23 [Rx Last Taken Unknown] lisinopril 40 mg tablet 40 mg PO DAILY blood pressure #90 tabs 04/30/23 [Rx Last Taken Unknown] nitroglycerin 0.4 mg sublingual tablet 0.4 mg sublingual Q5-15M PRN chest pain #25 tabs 04/30/23 [Rx Last Taken Unknown] pantoprazole 40 mg tablet,delayed release 40 mg PO DAILY acid reflux #30 tabs 04/30/23 [Rx Last Taken Unknown] ticagrelor 90 mg tablet (Brilinta) See Rx Instructions .Route .COMPLEX #180 tabs 05/15/23 [Rx Last Taken Unknown] blood sugar diagnostic (OneTouch Verio test strips) 10/06/23 [History Last Taken Unknown] blood-glucose meter (OneTouch Verio Flex Meter) 10/06/23 [History Last Taken Unknown] flash glucose sensor (FreeStyle Oknstantin 2 Sensor kit) 10/06/23 [History Last Taken Unknown] insulin aspart U-100 100 unit/mL (3 mL) subcutaneous pen (Novolog FlexPen U-100 Insulin aspart) 15 unit subcut TID 10/06/23 [History Last Taken Unknown] insulin glargine 100 unit/mL (3 mL) subcutaneous pen (Lantus Solostar U-100 Insulin) 35 unit subcut QHS 10/06/23 [History Last Taken Unknown] insulin syringe-needle U-100 0.5 mL 31 gauge x 5/16 (BD Insulin Syringe Ultra-Fine) 10/06/23 [History Last Taken Unknown] isosorbide mononitrate 60 mg tablet,extended release 24 hr 60 mg PO DAILY 10/06/23 [History Last Taken Unknown] lamotrigine 150 mg tablet 150 mg PO BID 10/06/23 [History Last Taken Unknown] lamotrigine 25 mg tablet 50 mg PO DAILY 10/06/23 [History Last Taken Unknown] lancets 33 gauge (Unilet Lancet) 10/06/23 [History Last Taken Unknown] naproxen 500 mg tablet 500 mg PO BID pain 10/06/23 [History Last Taken Unknown] promethazine 25 mg tablet 25 mg PO Q6H PRN PRN colitis 10/06/23 [History Last Taken Unknown] ranolazine 500 mg tablet,extended release,12 hr 500 mg PO BID 10/06/23 [History Last Taken Unknown] Allergy/AdvReac Type Severity Reaction Status Date / Time metformin [From Glucophage] AdvReac Intermediate Diarrhea Verified 10/06/23 02:17 Family History Mother Cancer lung Father Hypertension COPD (chronic obstructive pulmonary disease) Daughter Factor V deficiency Grandmother Cancer lung COPD (chronic obstructive pulmonary disease) Surgical History H/O cardiac catheterization History of back surgery History of delivery History of cholecystectomy History of coronary artery stent placement (04/06/23) History of dilatation and curettage History of left heart catheterization (04/06/23) History of percutaneous transluminal coronary angioplasty (~10/20/20) History of tonsillectomy and adenoidectomy History of tubal ligation S/P tubal ligation Social History household members: none Smoking Status: Former smoker alcohol intake: current alcohol intake frequency: holidays/special occasions only substance use type: does not use caffeine: Yes ROS Constitutional Constitutional: Denies chills, fatigue, fever(s) or weakness Eyes Eyes: Denies change in vision Cardiovascular Cardiovascular: Reports chest pain and dyspnea on exertion; Denies rapid heart rate Respiratory/Chest Respiratory/Chest: Denies cough or shortness of breath at rest Gastrointestinal Gastrointestinal: Denies abdominal pain Vital Signs Vital Signs Vital Signs: 10/06/23 02:10 10/06/23 02:47 10/06/23 03:12 Temperature 98.5 F Temperature Source Temporal Pulse Rate 103 H 89 Respiratory Rate 12 Blood Pressure 167/91 H 163/90 H Blood Pressure Mean 116 114 Blood Pressure Source Blood Pressure Position Blood Pressure Location Pulse Ox 97 Oxygen Delivery Method Room Air Room Air 10/06/23 03:23 10/06/23 02:49 10/06/23 03:00 Temperature Temperature Source Pulse Rate 93 Respiratory Rate 16 Blood Pressure 141/88 H 187/124 H Blood Pressure Mean 105 142 Blood Pressure Source Monitor Blood Pressure Position Sitting Blood Pressure Location Left Forearm Pulse Ox 94 Oxygen Delivery Method 10/06/23 03:09 10/06/23 04:00 10/06/23 04:44 Temperature Temperature Source Pulse Rate 92 68 Respiratory Rate 23 H 19 H Blood Pressure 163/90 H 135/90 H 142/80 H Blood Pressure Mean 112 105 100 Blood Pressure Source Monitor Blood Pressure Position Sitting Blood Pressure Location Left Arm Pulse Ox 97 94 Oxygen Delivery Method Room Air 10/06/23 05:09 10/06/23 05:34 10/06/23 06:00 Temperature 96.4 F L Temperature Source Tympanic Pulse Rate 101 H 98 Respiratory Rate 19 H 15 Blood Pressure 142/80 H 157/104 H 143/95 H Blood Pressure Mean 100 121 111 Blood Pressure Source Monitor Blood Pressure Position Sitting Blood Pressure Location Left Forearm Pulse Ox 97 Oxygen Delivery Method Room Air Room Air 10/06/23 06:24 10/06/23 07:00 10/06/23 08:53 Temperature Temperature Source Pulse Rate 103 H Respiratory Rate 19 H Blood Pressure 136/84 H 124/85 H 126/89 H Blood Pressure Mean 101 98 101 Blood Pressure Source Monitor Blood Pressure Position Semi-Fowlers Blood Pressure Location Left Forearm Pulse Ox 96 Oxygen Delivery Method Room Air 10/06/23 08:00 10/06/23 09:00 10/06/23 10:00 Temperature Temperature Source Pulse Rate 100 98 104 H Respiratory Rate 17 17 18 Blood Pressure 167/100 H 109/85 H 112/78 Blood Pressure Mean 122 93 89 Blood Pressure Source Blood Pressure Position Blood Pressure Location Pulse Ox 94 96 94 Oxygen Delivery Method Room Air Room Air 10/06/23 11:00 10/06/23 12:00 10/06/23 13:00 Temperature Temperature Source Pulse Rate 102 H 101 H 114 H Respiratory Rate 16 13 19 H Blood Pressure 95/52 L 115/69 100/75 Blood Pressure Mean 66 84 83 Blood Pressure Source Blood Pressure Position Blood Pressure Location Pulse Ox 93 96 95 Oxygen Delivery Method Room Air Room Air Room Air 10/06/23 13:49 10/06/23 13:51 Temperature Temperature Source Pulse Rate Respiratory Rate Blood Pressure 115/70 115/70 Blood Pressure Mean 85 85 Blood Pressure Source Blood Pressure Position Blood Pressure Location Pulse Ox Oxygen Delivery Method Weight Weight: 134 kg Body Mass Index (BMI) 49.1 Physical Exam Const alert, oriented x3 and no apparent distress Constitutional Narrative: Middle-age female, morbidly obese, sitting up fairly comfortably in bed, conversing normally, no acute distress. General Appearance: cooperative and comfortable HEENT normocephalic, head/scalp atraumatic, hearing grossly normal bilaterally, nasal mucous membranes and turbinates normal and moist oral mucous membranes Eyes PERRL, EOMs intact bilaterally and conjunctivae normal Neck full ROM Chest inspection of chest normal Resp normal respiratory effort, normal air movement, no use of accessory muscles and clear to auscultation bilaterally Cardio regular rate, regular rhythm, no murmurs and peripheral pulses 2+ throughout GI normal to inspection, nondistended, normoactive bowel sounds, soft to palpation, non-tender and non-distended Back/Spine normal ROM Extremity normal to inspection, full ROM and no pedal edema Skin no rashes or lesions noted Neuro moves all extremities and no focal motor deficits Speech: speech normal Psych mental status grossly normal Results Lab / Micro Data 10/06/23 02:18 10/06/23 02:18 Labs: Laboratory Results - last 24 hr 10/06/23 02:18: WBC 11.4 H, RBC 4.74, Hgb 14.9, Hct 44.2, MCV 93.2, MCH 31.4, MCHC 33.7, RDW Std Deviation 44.3 H, RDW Coeff of Whitney 13.1, Plt Count 278, MPV 11.2, Immature Gran % (Auto) 0.400, Neut % (Auto) 36.4 L, Lymph % (Auto) 45.6 H, [place] % (Auto) 8.7, Eos % (Auto) 8.3 H, Baso % (Auto) 0.6, Absolute Neuts (auto) 4.2, Absolute Lymphs (auto) 5.20 H, Nucleated RBC % 0, Differential Comment SCANNED, APTT 24.4, Sodium 138, Potassium 3.9, Chloride 106, Carbon Dioxide 24.0, Anion Gap 8, BUN 11, Creatinine 0.80, Estim Creat Clear Calc 116.61, Est GFR (MDRD) Af Amer 98, Est GFR (MDRD) Non-Af 81, BUN/Creatinine Ratio 13.8, Glucose 303 H, Calcium 8.8, Troponin I High Sens 5 10/06/23 04:25: Troponin I High Sens 7 10/06/23 06:37: PT 15.9 H, INR 1.3, APTT > 200.0 H* Rhythm Strip Rhythm Strip: Sinus Rhythm Rate: 95 Ectopy: PVC(s) Imaging Radiology Impression Chest X-Ray 10/06/23 02:38 IMPRESSION: No radiographic evidence of acute cardiopulmonary disease. Electronically Signed: Garrett Glover MD at 4:09 EDT Reading Location ID and State: [facility] / [place] Tel , Service support , Assessment & Plan Assessment/Plan (1) Unstable angina: (2) Coronary artery disease: PLAN: Plan Patient is a 48-year-old female who presented to [facility] ED on 10/06/2023 with recurrent chest pain. 1. Recurrent chest pain, history of extensive CAD with stenting See HPI for further details. EKG on admit with normal sinus rhythm, no acute ST changes. Troponin trend 5 > 7. Chest x-ray nonacute. Hemodynamically stable on room air. ? Admit under inpatient status to PCU. Planning for transfer to [facility] for further cardiology evaluation when bed becomes available. Continue heparin drip. Continue nitroglycerin drip, notably can only go up to a rate of 20 on PCU. Oxycodone 5 mg every 4 hours as needed ordered for recurrent chest pain. Continue cardiac monitoring. Continue home Brilinta, holding home aspirin. Continue home atorvastatin. Due to mild hypotension on nitroglycerin drip, ordered home Coreg at reduced dose and held home isosorbide mononitrate and lisinopril. Continue home ranolazine. 2. Type 2 diabetes mellitus with hyperglycemia Home regimen of Lantus 35 units at night, Humalog 15 units with meals. Blood glucose 303 on admit. Last A1c was from 2020, A1c's ranged from 7-9 at that time. ? Will start Lantus 30 units at night, Humalog 10 units with meals plus sliding scale insulin, adjust as needed. Repeat A1c ordered. Chronic medical conditions: ? Morbid obesity: BMI 48 on admit. Complicates hospital course, care and prognosis. ? Mood disorder: Stable. Continue home bupropion, lamotrigine, Ativan as needed. ? Hypothyroidism: TSH ordered. Continue home Synthroid. ? GERD: Continue home PPI. ? COPD: Stable on room air. Continue home inhalers. DVT prophylaxis: Heparin drip CODE STATUS: Full code, verified Expected disposition: Transfer to [facility] whenever bed becomes available Total clinical time spent by myself addressing the patient's medical issues, reviewing all the data, and collaborating with patient's care team: 55 minutes. Charges/Coding Visit Charges Inpatient E&M: 30414 Init Hosp L2
--- NOTE | 2023-10-06 14:59 | NURSING ---
PCU [facility]
[2023-10-06 15:54] LABS: Partial Thromboplast Time 27.4 Seconds (24.1-36.2)
[2023-10-06] MEDS: 0.9% Saline Lock 10 ML Syringe IV ×2 (16:34→23:43)
[2023-10-06] MEDS: Heparin Injection (Vial) 5,000 UNIT/ML VIAL IV ×2 (16:35→23:00)
[2023-10-06] MEDS: LORazepam 0.5 MG Tablet PO ×2 (17:00→21:55)
[2023-10-06] MEDS: Insulin Lispro 100 UNIT/ML INSULN.PEN 10 UNIT SC (17:01)
[2023-10-06] MEDS: Insulin Lispro 100 UNIT/ML INSULN.PEN SC (17:02)
[2023-10-06 17:23] LABS: Bedside Glucose 150 mg/dL (74-106)
[2023-10-06] MEDS: Acetaminophen 325 MG Tablet 650 MG PO (17:55)
[2023-10-06] MEDS: oxyCODONE 5 MG Tablet PO ×2 (17:55→21:55)
[2023-10-06 19:01] LABS: Thyroid Stim Hormone (TSH) 7.68 uIU/mL (0.358-3.74)
[2023-10-06 19:08] LABS: Hemoglobin A1c 7.5 % (3.8-5.6)
[2023-10-06] MEDS: Budesonide Respules 0.5 MG/2 ML AMPUL.NEB. INHALATION (20:35)
[2023-10-06] MEDS: Albuterol 2.5 MG/3 ML VIAL.NEB. INHALATION (20:35)
[2023-10-06] MEDS: TICAGRELOR 90 MG TABLET PO (21:46)
[2023-10-06] MEDS: Ranolazine 500 MG Tablet PO (21:46)
[2023-10-06] MEDS: Carvedilol 6.25 MG Tablet PO (21:46)
[2023-10-06] MEDS: Atorvastatin Calcium 80 MG Tablet PO (21:46)
[2023-10-06 22:05] LABS: Bedside Glucose 70 mg/dL (74-106)
[2023-10-06 22:53] LABS: Partial Thromboplast Time 33.8 Seconds (24.1-36.2)
[2023-10-06] MEDS: Insulin Glargine-YFGN 100 UNIT/ML Pen 30 UNIT SC (22:55)
[2023-10-07] VITALS (24 sets, daily range): BP systolic 90–196; BP diastolic 63–136; PULSE 95–129; RESP 13–41; TEMP 36.6–36.7; O2SAT 91–99
[2023-10-07] MEDS: Polyethylene Glycol 3350 17 GM PACKET PO (00:04)
[2023-10-07 05:21] LABS: Hematocrit 42.7 % (37-47); Hemoglobin 14.5 g/dL (12.0-15.0); Mean Corpuscular Hgb 32.3 pg (27.0-32.0); Mean Corpuscular Volume 95.1 fL (81-99); Mean Platelet Vol. 11.3 fl (6.2-12.0); Platelet Count 249 K/mm3 (150-450); RBC Distribution Width CV 13.1 % (11.6-14.6); RBC Distribution Width SD 45.6 fl (35.1-43.9); Red Blood Count 4.49 M/mm3 (4.2-5.4)
[2023-10-07 05:37] LABS: Partial Thromboplast Time 42.8 Seconds (24.1-36.2)
[2023-10-07] MEDS: proCHLORPERazine 10 MG/2 ML Vial IV ×2 (05:38→10:05)
[2023-10-07 05:55] LABS: Anion Gap 10 (5-15); BUN 11 mg/dL (7-18); BUN/Creat Ratio 16.8 RATIO (10-20); Calcium,Total 8.7 mg/dL (8.5-10.1); Chloride 104 mmol/L (98-107); Creatinine, Serum 0.65 mg/dL (0.55-1.02); EST Glomerular Filtration Rate 102 mL/min (>60); Est Glom Filt Rate - Afr Amer 123 mL/min (>60); Estimated Creatinine Clearance 141.88 ml/min; Glucose 231 mg/dL (74-106); Potassium 4.1 mmol/L (3.5-5.1); Sodium Level 135 mmol/L (136-145)
[2023-10-07] MEDS: Nitroglycerin Infusion 250 ML 12 MG CONT INF (06:42)
[2023-10-07] MEDS: Budesonide Respules 0.5 MG/2 ML AMPUL.NEB. INHALATION (07:23)
--- NOTE | 2023-10-07 07:24 | CPS ---
patient states after this treatment she does not want to do them anymore, she just wants to sleep because she does not even do them at home.
[2023-10-07 08:20] LABS: Bedside Glucose 234 mg/dL (74-106)
--- NOTE | 2023-10-07 08:22 | NURSING ---
I spoke to with Antony at [facility] transfer line he stated pt is still on the wait list however they do not have a bed at this time.
[2023-10-07] MEDS: HEPARIN/D5w 25,000 UNITS 25,000 UNITS/250 ML IV.SOLN. 12 UNITS CONT INF (09:45)
[2023-10-07] MEDS: TICAGRELOR 90 MG TABLET PO ×2 (09:48→20:48)
[2023-10-07] MEDS: Pantoprazole Sodium 40 MG Tablet PO (09:48)
[2023-10-07] MEDS: Ranolazine 500 MG Tablet PO ×2 (09:48→20:48)
[2023-10-07] MEDS: lamoTRIgine 150 MG Tablet 300 MG PO (09:48)
[2023-10-07] MEDS: Carvedilol 6.25 MG Tablet PO ×2 (09:49→20:46)
[2023-10-07] MEDS: buPROPion (XL) 150 MG TABLET.XL 450 MG PO (09:50)
[2023-10-07] MEDS: Acetaminophen 325 MG Tablet 650 MG PO ×2 (10:03→20:45)
[2023-10-07] MEDS: 0.9% Saline Lock 10 ML Syringe IV (10:03)
[2023-10-07] MEDS: oxyCODONE 5 MG Tablet PO ×3 (10:04→20:45)
[2023-10-07] MEDS: Insulin Lispro 100 UNIT/ML INSULN.PEN SC ×4 (11:04→23:18)
[2023-10-07] MEDS: Insulin Lispro 100 UNIT/ML INSULN.PEN 10 UNIT SC ×2 (11:05→17:58)
[2023-10-07 12:08] LABS: Partial Thromboplast Time 44.2 Seconds (24.1-36.2)
--- NOTE | 2023-10-07 12:24 | PCM.PN.HOSP ---
Reason for Visit Reason for Visit: Diagnoses Unstable angina (10/06/23) Atherosclerotic heart disease of [place] coronary artery without angina pectoris (10/06/23) Subjective Subjective No acute events overnight. Patient seen at bedside this morning. Sitting up fairly comfortably in bed, conversing normally, in no acute distress. Patient does state that she had some nausea overnight and had a small episode of emesis, and also had some constipation and difficulty having a bowel movement. States that she was given MiraLAX last night and had some soft stool output this morning. States the Zofran last night for her nausea was also quite helpful. She continues to have mild chest pain this morning, similar to yesterday. No other acute concerns at this time. Objective Data Objective Data Vital Signs: Vital Signs Temp Pulse Resp BP Pulse Ox O2 Del Method 97.9 F 110 H 20 H 124/88 H 94 Room Air 10/07/23 12:00 10/07/23 12:00 10/07/23 12:00 10/07/23 12:00 10/07/23 12:00 10/07/23 12:00 Oxygen Delivery Method Room Air Weight: 131.5 kg Body Mass Index (BMI) 48.2 Intake & Output: Intake and Output for Last 24 Hours 10/05/23 10/06/23 10/07/23 23:59 23:59 23:59 Intake Total 1279.85 / 1785.45 984.07 / 984.07 Output Total 300 / 300 Balance 1279.85 / 1785.45 684.07 / 684.07 Lab / Micro Data 10/07/23 05:03 10/07/23 05:03 Labs: Laboratory Results - last 24 hr 10/06/23 02:18: Hemoglobin A1c 7.5 H 10/06/23 04:25: TSH 7.68 H 10/06/23 15:01: APTT 27.4 10/06/23 16:58: POC Glucose 150 H 10/06/23 21:40: POC Glucose 70 L 10/06/23 22:35: APTT 33.8 10/07/23 05:03: WBC 11.0, RBC 4.49, Hgb 14.5, Hct 42.7, MCV 95.1, MCH 32.3 H, MCHC 34.0, RDW Std Deviation 45.6 H, RDW Coeff of Whitney 13.1, Plt Count 249, MPV 11.3, APTT 42.8 H, Sodium 135 L, Potassium 4.1, Chloride 104, Carbon Dioxide 21.0, Anion Gap 10, BUN 11, Creatinine 0.65, Estim Creat Clear Calc 141.88, Est GFR (MDRD) Af Amer 123, Est GFR (MDRD) Non-Af 102, BUN/Creatinine Ratio 16.8, Glucose 231 H, Calcium 8.7 10/07/23 07:48: POC Glucose 234 H Rhythm Strip Rhythm Strip: Sinus Rhythm Rate: 95 Ectopy: PVC(s) Physical Exam Const alert, oriented x3 and no apparent distress Constitutional Narrative: Middle-age female, morbidly obese, sitting up fairly comfortably in bed, conversing normally, no acute distress. General Appearance: cooperative and comfortable HEENT normocephalic, head/scalp atraumatic, hearing grossly normal bilaterally, nasal mucous membranes and turbinates normal and moist oral mucous membranes Eyes PERRL, EOMs intact bilaterally and conjunctivae normal Neck full ROM Chest inspection of chest normal Resp normal respiratory effort, normal air movement, no use of accessory muscles and clear to auscultation bilaterally Cardio regular rate, regular rhythm, no murmurs and peripheral pulses 2+ throughout GI normal to inspection, nondistended, normoactive bowel sounds, soft to palpation, non-tender and non-distended Back/Spine normal ROM Extremity normal to inspection, full ROM and no pedal edema Skin no rashes or lesions noted Neuro moves all extremities and no focal motor deficits Speech: speech normal Psych mental status grossly normal Assessment & Plan Assessment/Plan (1) Unstable angina: (2) Coronary artery disease: PLAN: Plan Patient is a 48-year-old female who presented to [facility] ED on 10/06/2023 with recurrent chest pain. 1. Recurrent chest pain, history of extensive CAD with stenting See HPI for further details. EKG on admit with normal sinus rhythm, no acute ST changes. Troponin trend 5 > 7. Chest x-ray nonacute. Hemodynamically stable on room air. ? Patient stable on hospital day 2. Planning for transfer to [facility] for further cardiology evaluation when bed becomes available. Continue heparin drip. Continue nitroglycerin drip. Oxycodone 5 mg every 4 hours as needed ordered for recurrent chest pain. MiraLAX and senna scheduled added for bowel regimen. Continue cardiac monitoring. Continue home Brilinta, holding home aspirin. Continue home atorvastatin. Due to mild hypotension on nitroglycerin drip, ordered home Coreg at reduced dose and held home isosorbide mononitrate and lisinopril, stable on this regimen. Continue home ranolazine. 2. Type 2 diabetes mellitus with hyperglycemia Home regimen of Lantus 35 units at night, Humalog 15 units with meals. Blood glucose 303 on admit. Last A1c was from 2020, A1c's ranged from 7-9 at that time. A1c 7.5% on admit. ? Continue Lantus 30 units at night, Humalog 10 units with meals plus sliding scale insulin, adjust as needed. Chronic medical conditions: ? Morbid obesity: BMI 48 on admit. Complicates hospital course, care and prognosis. ? Mood disorder: Stable. Continue home bupropion, lamotrigine, Ativan as needed. ? Hypothyroidism: TSH mildly elevated at 7.68. Continue home Synthroid. Follow-up outpatient for further monitoring and Synthroid dosing changes. ? GERD: Continue home PPI. ? COPD: Stable on room air. Continue home inhalers. DVT prophylaxis: Heparin drip CODE STATUS: Full code, verified Expected disposition: Transfer to [facility] whenever bed becomes available Total clinical time spent by myself addressing the patient's medical issues, reviewing all the data, and collaborating with patient's care team: 35 minutes. Charges/Coding Visit Charges Inpatient E&M: 46102 Subs Hosp L2
[2023-10-07] MEDS: LORazepam 0.5 MG Tablet PO ×2 (14:33→23:17)
[2023-10-07 20:19] LABS: Partial Thromboplast Time 52.4 Seconds (24.1-36.2)
[2023-10-07] MEDS: Atorvastatin Calcium 80 MG Tablet PO (20:47)
[2023-10-07] MEDS: Insulin Glargine-YFGN 100 UNIT/ML Pen 30 UNIT SC (23:19)
[2023-10-08] VITALS (24 sets, daily range): BP systolic 102–183; BP diastolic 62–121; PULSE 86–110; RESP 12–31; TEMP 36.2–36.8; O2SAT 93–98
[2023-10-08] MEDS: oxyCODONE 5 MG Tablet PO ×4 (01:23→20:14)
[2023-10-08 02:27] LABS: Partial Thromboplast Time 52.6 Seconds (24.1-36.2)
[2023-10-08] MEDS: Nitroglycerin Infusion 250 ML 12 MG CONT INF (03:06)
[2023-10-08] MEDS: Levothyroxine 75 MCG Tablet PO (06:17)
[2023-10-08] MEDS: Insulin Lispro 100 UNIT/ML INSULN.PEN SC ×4 (06:17→20:20)
[2023-10-08] MEDS: Levothyroxine 100 MCG Tablet 200 MCG PO (06:18)
[2023-10-08] MEDS: HEPARIN/D5w 25,000 UNITS 25,000 UNITS/250 ML IV.SOLN. 14 UNITS CONT INF (06:23)
--- NOTE | 2023-10-08 07:57 | NURSING ---
I spoke to [facility] transfer line they stated pt is still on the wait list however they do not have a bed at this time.
[2023-10-08] MEDS: Ranolazine 500 MG Tablet PO ×2 (09:02→20:15)
[2023-10-08] MEDS: LORazepam 0.5 MG Tablet PO ×2 (09:02→22:29)
[2023-10-08] MEDS: buPROPion (XL) 150 MG TABLET.XL 450 MG PO (09:02)
[2023-10-08] MEDS: TICAGRELOR 90 MG TABLET PO ×2 (09:03→20:15)
[2023-10-08] MEDS: Pantoprazole Sodium 40 MG Tablet PO (09:03)
[2023-10-08] MEDS: lamoTRIgine 150 MG Tablet 300 MG PO (09:04)
[2023-10-08] MEDS: Carvedilol 6.25 MG Tablet PO (09:04)
[2023-10-08] MEDS: Insulin Lispro 100 UNIT/ML INSULN.PEN 10 UNIT SC ×3 (09:04→18:05)
[2023-10-08 09:11] LABS: Partial Thromboplast Time 53.5 Seconds (24.1-36.2)
--- NOTE | 2023-10-08 12:32 | PN.HOSP_ITS ---
Reason for Visit Reason for Visit: Diagnoses Unstable angina (10/06/23) Atherosclerotic heart disease of [place] coronary artery without angina pectoris (10/06/23) Subjective Subjective No acute events overnight. Patient seen at bedside's morning. Sitting comfortably bedside chair, no acute distress. Continues to report mild chest pain, similar to previous days. Does report mild headache, again similar to the last few days. Denies any other acute concerns this morning. Objective Data Objective Data Vital Signs: Vital Signs Temp Pulse Resp BP Pulse Ox O2 Del Method 97.1 F L 110 H 12 167/96 H 98 Room Air 10/08/23 08:00 10/08/23 08:00 10/08/23 08:00 10/08/23 12:00 10/08/23 08:03 10/08/23 08:03 Oxygen Delivery Method Room Air Weight: 131.5 kg Body Mass Index (BMI) 48.2 Intake & Output: Intake and Output for Last 24 Hours 10/06/23 10/07/23 10/08/23 23:59 23:59 23:59 Intake Total 1279.85 / 1785.45 1189.07 / 1851.07 1526.80 / 1526.80 Output Total 300 / 300 Balance 1279.85 / 1785.45 889.07 / 1551.07 1526.80 / 1526.80 Lab / Micro Data 10/07/23 05:03 10/07/23 05:03 Labs: Laboratory Results - last 24 hr 10/07/23 11:46: APTT 44.2 H 10/07/23 19:50: APTT 52.4 H 10/08/23 01:50: APTT 52.6 H 10/08/23 08:32: APTT 53.5 H Rhythm Strip Rhythm Strip: Sinus Rhythm Rate: 95 Ectopy: PVC(s) Physical Exam Const alert, oriented x3 and no apparent distress Constitutional Narrative: Middle-age female, morbidly obese, sitting up fairly comfortably in bed, conversing normally, no acute distress. General Appearance: cooperative and comfortable HEENT normocephalic, head/scalp atraumatic, hearing grossly normal bilaterally, nasal mucous membranes and turbinates normal and moist oral mucous membranes Eyes PERRL, EOMs intact bilaterally and conjunctivae normal Neck full ROM Chest inspection of chest normal Resp normal respiratory effort, normal air movement, no use of accessory muscles and clear to auscultation bilaterally Cardio regular rate, regular rhythm, no murmurs and peripheral pulses 2+ throughout GI normal to inspection, nondistended, normoactive bowel sounds, soft to palpation, non-tender and non-distended Back/Spine normal ROM Extremity normal to inspection, full ROM and no pedal edema Skin no rashes or lesions noted Neuro moves all extremities and no focal motor deficits Speech: speech normal Psych mental status grossly normal Assessment & Plan Assessment/Plan (1) Unstable angina: (2) Coronary artery disease: PLAN: Plan Patient is a 48-year-old female who presented to [facility] ED on 10/06/2023 with recurrent chest pain. 1. Recurrent chest pain, history of extensive CAD with stenting See HPI for further details. EKG on admit with normal sinus rhythm, no acute ST changes. Troponin trend 5 > 7. Chest x-ray nonacute. Hemodynamically stable on room air. ? Patient stable on hospital day 3. Planning for transfer to [facility] for further cardiology evaluation when bed becomes available. Continue heparin dr ip. Weaned off nitroglycerin drip on 10/07. Continue oxycodone 5 mg every 4 hours as needed ordered for recurrent chest pain. MiraLAX and senna scheduled for bowel regimen. Continue cardiac monitoring. Continue home Brilinta, holding home aspirin. Continue home atorvastatin. Initially on reduced dose of Coreg with other BP meds held while on nitroglycerin drip, became hypertensive when drip was weaned off. Resumed Coreg at home dose and restarted home isosorbide mononitrate and lisinopril on 10/07. Continue home ranolazine. 2. Type 2 diabetes mellitus with hyperglycemia Home regimen of Lantus 35 units at night, Humalog 15 units with meals. Blood glucose 303 on admit. Last A1c was from 2020, A1c's ranged from 7-9 at that time. A1c 7.5% on admit. ? Continue Lantus 30 units at night, Humalog 10 units with meals plus sliding scale insulin, adjust as needed. Chronic medical conditions: ? Morbid obesity: BMI 48 on admit. Complicates hospital course, care and prognosis. ? Mood disorder: Stable. Continue home bupropion, lamotrigine, Ativan as needed. ? Hypothyroidism: TSH mildly elevated at 7.68. Continue home Synthroid. Follow-up outpatient for further monitoring and Synthroid dosing changes. ? GERD: Continue home PPI. ? COPD: Stable on room air. Continue home inhalers. DVT prophylaxis: Heparin drip CODE STATUS: Full code, verified Expected disposition: Transfer to [facility] whenever bed becomes available Total clinical time spent by myself addressing the patient's medical issues, reviewing all the data, and collaborating with patient's care team: 35 minutes. Charges/Coding Visit Charges Inpatient E&M: 59442 Subs Hosp L2
[2023-10-08] MEDS: 0.9% Saline Lock 10 ML Syringe IV ×2 (13:38→15:25)
[2023-10-08] MEDS: Lisinopril 40 MG Tablet PO (13:38)
[2023-10-08] MEDS: Isosorbide Mononitrate 60 MG Tablet PO (14:12)
--- NOTE | 2023-10-08 14:15 | NURSING ---
Report given to Ranjana Ortiz RN.
[2023-10-08] MEDS: Ondansetron 4 MG/2 ML Vial IV (15:25)
[2023-10-08] MEDS: proCHLORPERazine 10 MG/2 ML Vial IV (20:14)
[2023-10-08] MEDS: Carvedilol 6.25 MG Tablet 25 MG PO (20:16)
[2023-10-08] MEDS: Atorvastatin Calcium 80 MG Tablet PO (20:17)
[2023-10-08] MEDS: Acetaminophen 325 MG Tablet 650 MG PO (22:30)
[2023-10-08] MEDS: Insulin Glargine-YFGN 100 UNIT/ML Pen 30 UNIT SC (22:37)
[2023-10-08] MEDS: HEPARIN/D5w 25,000 UNITS 25,000 UNITS/250 ML IV.SOLN. 16 UNITS CONT INF (22:58)
[2023-10-08 23:24] LABS: Partial Thromboplast Time 62.6 Seconds (24.1-36.2)
[2023-10-09 05:30] VITALS: BP 103/66; PULSE 84; RESP 16; TEMP 36.5; O2SAT 95
[2023-10-09] MEDS: Levothyroxine 100 MCG Tablet 200 MCG PO (05:33)
[2023-10-09] MEDS: Levothyroxine 75 MCG Tablet PO (05:33)
[2023-10-09 06:28] LABS: Partial Thromboplast Time 66.2 Seconds (24.1-36.2)
[2023-10-09 08:01] VITALS: O2SAT 97
[2023-10-09] MEDS: oxyCODONE 5 MG Tablet PO (09:24)
[2023-10-09] MEDS: Acetaminophen 325 MG Tablet 650 MG PO (09:24)
[2023-10-09] MEDS: Insulin Lispro 100 UNIT/ML INSULN.PEN 10 UNIT SC (10:13)
[2023-10-09] MEDS: Insulin Lispro 100 UNIT/ML INSULN.PEN SC (10:13)
[2023-10-09 10:44] VITALS: BP 165/95; PULSE 89; RESP 16; TEMP 36.5; O2SAT 98
[2023-10-09] MEDS: TICAGRELOR 90 MG TABLET PO (10:47)
[2023-10-09] MEDS: Lisinopril 40 MG Tablet PO (10:47)
[2023-10-09] MEDS: Carvedilol 6.25 MG Tablet 25 MG PO (10:47)
[2023-10-09] MEDS: Ranolazine 500 MG Tablet PO (10:47)
[2023-10-09] MEDS: lamoTRIgine 150 MG Tablet 300 MG PO (10:48)
[2023-10-09] MEDS: Pantoprazole Sodium 40 MG Tablet PO (10:48)
[2023-10-09] MEDS: Isosorbide Mononitrate 60 MG Tablet PO (10:48)
[2023-10-09] MEDS: buPROPion (XL) 150 MG TABLET.XL 450 MG PO (10:49)
[2023-10-09] MEDS: LORazepam 0.5 MG Tablet PO (10:52)
--- NOTE | 2023-10-09 11:40 | CASEMGMT ---
RN CM into pt room for assessment, pt states she will be trf'd at 1230. Assessment deferred at this time.
--- NOTE | 2023-10-09 11:41 | DCINST_ITS ---
Discharge Instructions Diet Discharge Diet: No restrictions Activity Discharge Activity: No Restrictions Weight Bearing Status: Full weight bearing Follow Up Care Test Results: Test results from this visit will be discussed in further detail at your follow- up appointment, if applicable. Discharge Plan Admission Admit Date/Time: 10/06/23 14:23 Primary Reason for Your Visit: chest pain Attending Provider: Ward Rivas Primary Care Provider: Carlotta Galindo Discharge Orders/Prescriptions Prescriptions: New heparin (porcine) 5,000 unit/mL Solution 0 unit IV UD PRN (Reason: dose adjustment) Qty: 0 0RF heparin (porcine) in 5 % dex 25,000 unit/250 mL(100 unit/mL) Parenteral Solution 25,000 unit continuous IV infusion .Q25H Qty: 0 0RF Protocol: NSTEMI / Thrombolytic Wt-Based Heparin Condition: Patient Weight (kg): THROMBOLYTIC PROTOCOL Dose/Route: Initial Heparin Bolus (Vial: 5000 units/ml) Instruction: Initial Heparin Infusion Rate (25,000 units/250ml D5W) Condition: 30-40 kg Dose/Route: 2,000 units (0.4 ml) Instruction: 400 units/hr Condition: 40.1-50 kg Dose/Route: 3,000 units (0.6 ml) Instruction: 550 units/hr Condition: 50.1-60 kg Dose/Route: 3,500 units (0.7 ml) Instruction: 700 units/hr Condition: 60.1-70 kg Dose/Route: 4,000 units (0.8 ml) Instruction: 800 units/hr Condition: 70.1-80 kg Dose/Route: 4,000 units (0.8 ml) Instruction: 900 units/hr Condition: >80 kg Dose/Route: 4,000 units (0.8 ml) Instruction: 1000 units/hr Protocol Text: Heparin Weight Based: THROMBOLYTIC aPTT: <41 Bolus w/Heparin: 1,000 units Stop Heparin infusion: 0 Rate change (units/hr): Increase 200 units (+2ml/hr) Repeat aPTT: 6 hours after rate change aPTT: 41-54 Bolus w/Heparin: 0 Stop Heparin infusion: 0 Rate change (units/hr): Increase 100 units (+1ml/hr) Repeat aPTT: 6 hours after rate change aPTT: 55-67 *GOAL* NOTE: aPTT is NOT at goal therapy unless TWO consecutive aPTT levels are within goal range-- Bolus w/Heparin: 0 Stop Heparin infusion: 0 Rate change (units/hr): 0 Repeat aPTT: 6 hours after aPTT results, unless second aPTT in a row in goal and therapy has ran >24 hours, then next morning aPTT: 68-79 Bolus w/Heparin: 0 Stop Heparin infusion: 0 Rate change (units/hr): Decrease 100 units (-1 ml/hr) Repeat aPTT: 6 hours after rate change aPTT: 80-92 Bolus w/Heparin: 0 Stop Heparin infusion: 30 minutes Rate change (units/hr): Decrease 100 units (-1 ml/hr) Repeat aPTT: 6 hours after rate change aPTT: 93-104 Bolus w/Heparin: 0 Stop Heparin infusion: 1 hour Rate change (units/hr): Decrease 200 units (-2 ml/hr) Repeat aPTT: 6 hours after rate change aPTT: >104 Bolus w/Heparin: 0 Stop Heparin infusion: 90 minutes Rate change (units/hr): Decrease 300 units (-3 ml/hr) Repeat aPTT: 6 hours after rate change Is an initial BOLUS dose to be given? Yes insulin glargine-yfgn 100 unit/mL (3 mL) Insulin Pen 30 unit subcut QHS Qty: 0 0RF insulin lispro [Humalog KwikPen Insulin] 100 unit/mL Insulin Pen 10 unit subcut TIDAC Qty: 0 0RF insulin lispro [Humalog KwikPen Insulin] 100 unit/mL Insulin Pen See Protocol subcut ACHS Qty: 0 0RF Protocol: 4. Sliding Scale Insulin High-Med Dosing Condition: 150-199 mg/dl = 2 units Condition: 200-259 mg/dl = 4 units Condition: 260-324 mg/dl = 6 units Condition: 325-374 mg/dl = 8 units Condition: 375-409 mg/dl = 10 units Condition: 410-449 mg/dl = 11 units Condition: Greater than 449 call physician Protocol Text: - Use for Total Daily Dose of Insulin 56-80 units - Patient who are insulin resistant or septic HIGH MEDIUM DOSING ALGORITHM sennosides [senna] 8.6 mg Tablet 8.6 mg PO BID Qty: 0 0RF oxycodone 5 mg Tablet 5 mg PO Q4H PRN PRN (Reason: Pain Score 6-10) Qty: 0 0RF Continued levothyroxine 75 mcg tablet 75 mcg PO DAILY levothyroxine 200 mcg tablet 200 mcg PO DAILY atorvastatin 80 mg tablet 80 mg PO QHS Qty: 90 3RF lisinopril 40 mg tablet 40 mg PO DAILY Qty: 90 3RF pantoprazole 40 mg tablet,delayed release (DR/EC) 40 mg PO DAILY Qty: 30 11RF nitroglycerin 0.4 mg tablet, sublingual 0.4 mg sublingual Q5-15M PRN (Reason: chest pain) Qty: 25 3RF Rx Instructions: do not exceed 3 doses per episode (DME) blood pressure monitor Kit See Rx Instructions .Route Qty: 1 0RF Rx Instructions: As directed albuterol sulfate 1 INHALER inhaler 1 - 2 puff inhalation Q4H PRN PRN (Reason: Wheezing) Qty: 1 0RF Patient Comments: asthma budesonide-formoterol 160-4.5MCG inhaler 2 puff PO BID bupropion HCl 300 MG tablet extended release 24 hr 300 mg PO DAILY lorazepam 1 mg tablet 0.5 - 1 mg PO TID PRN (Reason: Anxiety) Patient Comments: Please take half to one tablet daily as needed for anxiety ondansetron 4 mg tablet,disintegrating 4 mg PO Q8H PRN (Reason: nausea and vomiting) Qty: 10 0RF levothyroxine 300 mcg tablet 300 mcg PO .thursday Patient Comments: Take 1 tablet by mouth daily before breakfast on Sundays. (Other days of the week take 275mcg once daily) bupropion HCl 150 mg tablet extended release 24 hr 150 mg PO DAILY Patient Comments: take 1 tablet by mouth once daily ALONG WITH BUPROPRION 300 MG carvedilol 25 mg tablet 25 mg PO Q12H Patient Comments: Take 1 tablet by mouth twice daily. (DME) blood-glucose meter [OneTouch Verio Flex meter] [facility] [place] MISCELLANEOUS UD (DME) OneTouch Verio test strips Strip MISCELLANEOUS Patient Comments: [NO ORIGINAL SIG] (DME) FreeStyle Konstantin 2 Sensor Kit MISCELLANEOUS Patient Comments: Apply new sensor every fourteen (14) days to upper arm. lamotrigine 150 mg tablet 150 mg PO BID lamotrigine 25 mg tablet 50 mg PO DAILY isosorbide mononitrate 60 mg tablet extended release 24 hr 60 mg PO DAILY (DME) insulin syringe-needle U-100 [BD Insulin Syringe Ultra-Fine] 0.5 mL 31 gauge x 5/16 syringe 1 syringe MISCELLANEOUS TID (DME) lancets [Unilet Lancet] [facility] ranolazine 500 mg tablet extended release 12 hr 500 mg PO BID Brilinta 90 mg tablet See Rx Instructions .ROUTE .COMPLEX Qty: 180 3RF Dose Instruction: 03/27/22 TAKE 1 TABLET BY MOUTH TWICE DAILY Rx Instructions: 03/27/22 TAKE 1 TABLET BY MOUTH TWICE DAILY Discontinued cyclobenzaprine 10 mg tablet 5 mg PO TID PRN PRN (Reason: Muscle Spasm) gabapentin 100 mg capsule 100 mg PO TID PRN (Reason: nerve pain) Patient Comments: TAKE 1 CAPSULE BY MOUTH before bed for a few days, increase to 1 IN THE MORNING and 1 IN THE EVENING for a few days, then 1 THREE TIMES DAILY aspirin 81 mg Tablet,Delayed Release (Dr/Ec) 81 mg PO BREAKFAST Qty: 90 0RF insulin aspart U-100 [Novolog FlexPen U-100 Insulin] 100 unit/mL (3 mL) insulin pen 15 unit subcut TID promethazine 25 mg tablet 25 mg PO Q6H PRN PRN (Reason: colitis) naproxen 500 mg tablet 500 mg PO BID insulin glargine [Lantus Solostar U-100 Insulin] 100 unit/mL (3 mL) insulin pen 35 unit subcut QHS Referrals / Follow Up: Carlotta Galindo MD [Primary Care Provider] - Disposition Disposition (needs filled in before D/C Order can be placed): [facility]
--- NOTE | 2023-10-09 11:50 | DS.PCM_ITS ---
Providers Date of Admission: 10/06/23 Date of Discharge: 10/09/23 Primary Care Physician: Dr. Carlotta Galindo MD Reason For Visit: CHEST PAIN, H/O EXTENSIVE CAD Diagnosis Discharge Diagnosis (1) Unstable angina: Status: Acute Code(s): I20.0 - Unstable angina (2) Coronary artery disease: Status: Acute Code(s): I25.10 - Atherosclerotic heart disease of [place] coronary artery without angina pectoris Medications at Discharge Home Medications albuterol sulfate 90 mcg/actuation aerosol inhaler 1 - 2 puff inhalation Q4H PRN PRN Wheezing ##1 10/15/15 budesonide-formoterol HFA 160 mcg-4.5 mcg/actuation aerosol inhaler 2 puff PO BID breathing 05/07/19 bupropion HCl 300 mg 24 hr tablet, extended release 300 mg PO DAILY MOOD 09/25/20 lorazepam 1 mg tablet 0.5 - 1 mg PO TID PRN Anxiety 04/24/21 ondansetron 4 mg disintegrating tablet 4 mg PO Q8H PRN nausea and vomiting #10 tabs 12/31/21 atorvastatin 80 mg tablet 80 mg PO QHS cholesterol #90 tabs 03/25/22 levothyroxine 200 mcg tablet 200 mcg PO DAILY 03/25/22 levothyroxine 75 mcg tablet 75 mcg PO DAILY 03/25/22 bupropion HCl 150 mg 24 hr tablet, extended release 150 mg PO DAILY 04/06/23 carvedilol 25 mg tablet 25 mg PO Q12H 04/06/23 levothyroxine 300 mcg tablet 300 mcg PO .thursday04/06/23 blood pressure monitor #1 ea 04/30/23 lisinopril 40 mg tablet 40 mg PO DAILY blood pressure #90 tabs 04/30/23 nitroglycerin 0.4 mg sublingual tablet 0.4 mg sublingual Q5-15M PRN chest pain #25 tabs 04/30/23 pantoprazole 40 mg tablet,delayed release 40 mg PO DAILY acid reflux #30 tabs 04/30/23 ticagrelor 90 mg tablet (Brilinta) See Rx Instructions .Route .COMPLEX #180 tabs 05/15/23 blood sugar diagnostic (OneTouch Verio test strips) 10/06/23 blood-glucose meter (OneTouch Verio Flex Meter) 10/06/23 flash glucose sensor (FreeStyle Konstantin 2 Sensor kit) 10/06/23 insulin syringe-needle U-100 0.5 mL 31 gauge x 5/16 (BD Insulin Syringe Ultra- Fine) 10/06/23 isosorbide mononitrate 60 mg tablet,extended release 24 hr 60 mg PO DAILY 10/06/23 lamotrigine 150 mg tablet 150 mg PO BID 10/06/23 lamotrigine 25 mg tablet 50 mg PO DAILY 10/06/23 lancets 33 gauge (Unilet Lancet) 10/06/23 ranolazine 500 mg tablet,extended release,12 hr 500 mg PO BID 10/06/23 heparin (porcine) 25,000 unit/250 mL (100 unit/mL) in dextrose 5 % IV 25,000 unit continuous IV infusion .Q25H #0 mL 10/09/23 heparin (porcine) 5,000 unit/mL injection solution 0 unit (0 mL) IV UD PRN dose adjustment #0 mL 10/09/23 insulin glargine-yfgn 100 unit/mL (3 mL) subcutaneous pen 30 unit (0.3 mL) subcut QHS #0 mL 10/09/23 insulin lispro 100 unit/mL subcutaneous pen (Humalog KwikPen (U-100) Insulin) 10 unit (0.1 mL) subcut TIDAC #0 mL 10/09/23 insulin lispro 100 unit/mL subcutaneous pen (Humalog KwikPen (U-100) Insulin) See Protocol subcut ACHS #0 mL 10/09/23 oxycodone 5 mg tablet 5 mg PO Q4H PRN PRN Pain Score 6-10 #0 tabs 10/09/23 sennosides 8.6 mg tablet (senna) 8.6 mg PO BID #0 tabs 10/09/23 Hospital Course Operations None Procedures EKG and - (Chest x-ray) Summary of Care Provided Minutes Spent on Discharge: 35 Hospital Course: Patient is a 48-year-old female who presented to [facility] ED on 10/06/2023 with recurrent chest pain. Hospital course as noted below. Trans ferred to [facility] in stable condition on 10/08. 1. Recurrent chest pain, history of extensive CAD with stenting See H&P for further details. EKG on admit with normal sinus rhythm, no acute ST changes. Troponin trend 5 > 7. Chest x-ray nonacute. Hemodynamically stable on room air. ? Patient remained stable during hospitalization. Treated with heparin drip while here. Was started on nitroglycerin drip in the ED, weaned off on 10/07. Treated with oxycodone 5 mg every 4 hours as needed for recurrent chest pain. MiraLAX and senna scheduled for bowel regimen. Continued home Brilinta, held home aspirin while on heparin drip. Continued home atorvastatin. Continued home Coreg, restarted home isosorbide mononitrate and lisinopril on 10/07 after weaning off nitroglycerin drip. Continued home ranolazine. Transferred to [facility] in stable condition on 10/08. 2. Type 2 diabetes mellitus with hyperglycemia Home regimen of Lantus 35 units at night, Humalog 15 units with meals. Blood glucose 303 on admit. Last A1c was from 2020, A1c's ranged from 7-9 at that time. A1c 7.5% on admit. ? Treated with Lantus 30 units at night, Humalog 10 units with meals plus slid ing scale insulin while inpatient, blood sugars remained fairly stable. Chronic medical conditions: ? Morbid obesity: BMI 48 on admit. Complicates hospital course, care and prognosis. ? Mood disorder: Stable. Continue home bupropion, lamotrigine, Ativan as needed. ? Hypothyroidism: TSH mildly elevated at 7.68. Continue home Synthroid. Follow-up outpatient for further monitoring and Synthroid dosing changes. ? GERD: Continue home PPI. ? COPD: Stable on room air. Continue home inhalers. Total clinical time spent by myself addressing the patient's medical issues, reviewing all the data, and collaborating with patient's care team: 35 minutes. Physical Exam Const alert, oriented x3 and no apparent distress Constitutional Narrative: Middle-age female, morbidly obese, sitting up fairly comfortably in bed, conversing normally, no acute distress. General Appearance: cooperative and comfortable HEENT normocephalic, head/scalp atraumatic, hearing grossly normal bilaterally, nasal mucous membranes and turbinates normal and moist oral mucous membranes Eyes PERRL, EOMs intact bilaterally and conjunctivae normal Neck full ROM Chest inspection of chest normal Resp normal respiratory effort, normal air movement, no use of accessory muscles and clear to auscultation bilaterally Cardio regular rate, regular rhythm, no murmurs and peripheral pulses 2+ throughout GI normal to inspection, nondistended, normoactive bowel sounds, soft to palpation, non-tender and non-distended Back/Spine normal ROM Extremity normal to inspection, full ROM and no pedal edema Skin no rashes or lesions noted Neuro moves all extremities and no focal motor deficits Speech: speech normal Psych mental status grossly normal Weight / BMI Weight Weight: 131.5 kg Body Mass Index (BMI) 48.2 ABG / Lab / Microbiology Data 10/07/23 05:03 10/07/23 05:03 Laboratory: Laboratory Results - last 24 hr 10/08/23 15:28: APTT 51.0 H 10/08/23 22:05: APTT Cancelled 10/08/23 22:58: APTT 62.6 H 10/09/23 05:40: APTT 66.2 H D/C Instructions Discharge Diet: No restrictions Weight Bearing Status: Full weight bearing Meaningful Use Info Meaningful Use Diagnoses (Choose all that apply): None applicable Discharge Plan Admission Admit Date/Time: 10/06/23 14:23 Primary Reason for Your Visit: chest pain Attending Provider: Ward Rivas Primary Care Provider: Carlotta Galindo Discharge Orders/Prescriptions Prescriptions: New heparin (porcine) 5,000 unit/mL Solution 0 unit IV UD PRN (Reason: dose adjustment) Qty: 0 0RF heparin (porcine) in 5 % dex 25,000 unit/250 mL(100 unit/mL) Parenteral Solution 25,000 unit continuous IV infusion .Q25H Qty: 0 0RF Protocol: NSTEMI / Thrombolytic Wt-Based Heparin Condition: Patient Weight (kg): THROMBOLYTIC PROTOCOL Dose/Route: Initial Heparin Bolus (Vial: 5000 units/ml) Instruction: Initial Heparin Infusion Rate (25,000 units/250ml D5W) Condition: 30-40 kg Dose/Route: 2,000 units (0.4 ml) Instruction: 400 units/hr Condition: 40.1-50 kg Dose/Route: 3,000 units (0.6 ml) Instruction: 550 units/hr Condition: 50.1-60 kg Dose/Route: 3,500 units (0.7 ml) Instruction: 700 units/hr Condition: 60.1-70 kg Dose/Route: 4,000 units (0.8 ml) Instruction: 800 units/hr Condition: 70.1-80 kg Dose/Route: 4,000 units (0.8 ml) Instruction: 900 units/hr Condition: >80 kg Dose/Route: 4,000 units (0.8 ml) Instruction: 1000 units/hr Protocol Text: Heparin Weight Based: THROMBOLYTIC aPTT: <41 Bolus w/Heparin: 1,000 units Stop Heparin infusion: 0 Rate change (units/hr): Increase 200 units (+2ml/hr) Repeat aPTT: 6 hours after rate change aPTT: 41-54 Bolus w/Heparin: 0 Stop Heparin infusion: 0 Rate change (units/hr): Increase 100 units (+1ml/hr) Repeat aPTT: 6 hours after rate change aPTT: 55-67 *GOAL* NOTE: aPTT is NOT at goal therapy unless TWO consecutive aPTT levels are within goal range-- Bolus w/Heparin: 0 Stop Heparin infusion: 0 Rate change (units/hr): 0 Repeat aPTT: 6 hours after aPTT results, unless second aPTT in a row in goal and therapy has ran >24 hours, then next morning aPTT: 68-79 Bolus w/Heparin: 0 Stop Heparin infusion: 0 Rate change (units/hr): Decrease 100 units (-1 ml/hr) Repeat aPTT: 6 hours after rate change aPTT: 80-92 Bolus w/Heparin: 0 Stop Heparin infusion: 30 minutes Rate change (units/hr): Decrease 100 units (-1 ml/hr) Repeat aPTT: 6 hours after rate change aPTT: 93-104 Bolus w/Heparin: 0 Stop Heparin infusion: 1 hour Rate change (units/hr): Decrease 200 units (-2 ml/hr) Repeat aPTT: 6 hours after rate change aPTT: >104 Bolus w/Heparin: 0 Stop Heparin infusion: 90 minutes Rate change (units/hr): Decrease 300 units (-3 ml/hr) Repeat aPTT: 6 hours after rate change Is an initial BOLUS dose to be given? Yes insulin glargine-yfgn 100 unit/mL (3 mL) Insulin Pen 30 unit subcut QHS Qty: 0 0RF insulin lispro [Humalog KwikPen Insulin] 100 unit/mL Insulin Pen 10 unit subcut TIDAC Qty: 0 0RF insulin lispro [Humalog KwikPen Insulin] 100 unit/mL Insulin Pen See Protocol subcut ACHS Qty: 0 0RF Protocol: 4. Sliding Scale Insulin High-Med Dosing Condition: 150-199 mg/dl = 2 units Condition: 200-259 mg/dl = 4 units Condition: 260-324 mg/dl = 6 units Condition: 325-374 mg/dl = 8 units Condition: 375-409 mg/dl = 10 units Condition: 410-449 mg/dl = 11 units Condition: Greater than 449 call physician Protocol Text: - Use for Total Daily Dose of Insulin 56-80 units - Patient who are insulin resistant or septic HIGH MEDIUM DOSING ALGORITHM sennosides [senna] 8.6 mg Tablet 8.6 mg PO BID Qty: 0 0RF oxycodone 5 mg Tablet 5 mg PO Q4H PRN PRN (Reason: Pain Score 6-10) Qty: 0 0RF Continued levothyroxine 75 mcg tablet 75 mcg PO DAILY levothyroxine 200 mcg tablet 200 mcg PO DAILY atorvastatin 80 mg tablet 80 mg PO QHS Qty: 90 3RF lisinopril 40 mg tablet 40 mg PO DAILY Qty: 90 3RF pantoprazole 40 mg tablet,delayed release (DR/EC) 40 mg PO DAILY Qty: 30 11RF nitroglycerin 0.4 mg tablet, sublingual 0.4 mg sublingual Q5-15M PRN (Reason: chest pain) Qty: 25 3RF Rx Instructions: do not exceed 3 doses per episode (DME) blood pressure monitor Kit See Rx Instructions .Route Qty: 1 0RF Rx Instructions: As directed albuterol sulfate 1 INHALER inhaler 1 - 2 puff inhalation Q4H PRN PRN (Reason: Wheezing) Qty: 1 0RF Patient Comments: asthma budesonide-formoterol 160-4.5MCG inhaler 2 puff PO BID bupropion HCl 300 MG tablet extended release 24 hr 300 mg PO DAILY lorazepam 1 mg tablet 0.5 - 1 mg PO TID PRN (Reason: Anxiety) Patient Comments: Please take half to one tablet daily as needed for anxiety ondansetron 4 mg tablet,disintegrating 4 mg PO Q8H PRN (Reason: nausea and vomiting) Qty: 10 0RF levothyroxine 300 mcg tablet 300 mcg PO .thursday Patient Comments: Take 1 tablet by mouth daily before breakfast on Sundays. (Other days of the week take 275mcg once daily) bupropion HCl 150 mg tablet extended release 24 hr 150 mg PO DAILY Patient Comments: take 1 tablet by mouth once daily ALONG WITH BUPROPRION 300 MG carvedilol 25 mg tablet 25 mg PO Q12H Patient Comments: Take 1 tablet by mouth twice daily. (DME) blood-glucose meter [OneTouch Verio Flex meter] [facility] [place] UD (DME) OneTouch Verio test strips Strip MISCELLANEOUS Patient Comments: [NO ORIGINAL SIG] (DME) FreeStyle Konstantin 2 Sensor Kit MISCELLANEOUS Patient Comments: Apply new sensor every fourteen (14) days to upper arm. lamotrigine 150 mg tablet 150 mg PO BID lamotrigine 25 mg tablet 50 mg PO DAILY isosorbide mononitrate 60 mg tablet extended release 24 hr 60 mg PO DAILY (DME) insulin syringe-needle U-100 [BD Insulin Syringe Ultra-Fine] 0.5 mL 31 gauge x 5/16 syringe 1 syringe MISCELLANEOUS TID (DME) lancets [Unilet Lancet] 33 gauge [facility] [place] MISCELLANEOUS 4X/DAY ranolazine 500 mg tablet extended release 12 hr 500 mg PO BID Brilinta 90 mg tablet See Rx Instructions .ROUTE .COMPLEX Qty: 180 3RF Dose Instruction: 03/27/22 TAKE 1 TABLET BY MOUTH TWICE DAILY Rx Instructions: 03/27/22 TAKE 1 TABLET BY MOUTH TWICE DAILY Discontinued cyclobenzaprine 10 mg tablet 5 mg PO TID PRN PRN (Reason: Muscle Spasm) gabapentin 100 mg capsule 100 mg PO TID PRN (Reason: nerve pain) Patient Comments: TAKE 1 CAPSULE BY MOUTH before bed for a few days, increase to 1 IN THE MORNING and 1 IN THE EVENING for a few days, then 1 THREE TIMES DAILY aspirin 81 mg Tablet,Delayed Release (Dr/Ec) 81 mg PO BREAKFAST Qty: 90 0RF insulin aspart U-100 [Novolog FlexPen U-100 Insulin] 100 unit/mL (3 mL) insulin pen 15 unit subcut TID promethazine 25 mg tablet 25 mg PO Q6H PRN PRN (Reason: colitis) naproxen 500 mg tablet 500 mg PO BID insulin glargine [Lantus Solostar U-100 Insulin] 100 unit/mL (3 mL) insulin pen 35 unit subcut QHS Referrals / Follow Up: Carlotta Galindo MD [Primary Care Provider] - Disposition Disposition (needs filled in before D/C Order can be placed): Acute Care Hospital Charges/Coding Visit Charges Inpatient E&M: 56817 Disch Hosp >30min
--- NOTE | 2023-10-09 11:54 | NURSING ---
Report called to [facility] RUDI Sorto. 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 Pt informed family of this.
[2023-10-09] MEDS: 0.9% Saline Lock 10 ML Syringe IV (12:01)
[2023-10-09] MEDS: Ondansetron 4 MG/2 ML Vial IV (12:01)
[2023-10-09 12:05] VITALS: BP 152/92
--- NOTE | 2023-10-09 13:31 | NURSING ---
Pt leaving for [facility] with [facility] personnel. [facility] crew could not get our heparin gtt tubing to work with their pumps. It was attempted to use their tubing with out heparin bag, but their tubing would not go into the heparin bag. notified and asked if he wanted to send patient on the heparin gtt or ok to send patient without it. stated that patient could be transferred off of heparin for transport. Heparin gtt stopped. RN at [facility] will be updated via phone.
--- NOTE | 2023-10-09 13:41 | NURSING ---
F funmi Sorto notified that patient was being sent via [facility] without heparin running per MD.
== END 2023-10-09 13:00 | disposition short-term general hospital (02) | DRG 303 ==
LOC: ED 14:49 → PCU 14:53
PROVIDERS: Emergency Medicine; Admitting Provider Hospitalist; Emergency Provider Emergency Medicine; PCP Internal Medicine; Visit Provider Hospitalist
DX: I25.110 Atherosclerotic heart disease of native coronary artery with unstable angina pectoris (principal); Z68.42 Body mass index [BMI] 45.0-49.9, adult; I11.0 Hypertensive heart disease with heart failure; E03.9 Hypothyroidism, unspecified; I50.9 Heart failure, unspecified; E11.65 Type 2 diabetes mellitus with hyperglycemia; J44.9 Chronic obstructive pulmonary disease, unspecified; E66.01 Morbid (severe) obesity due to excess calories; Z79.4 Long term (current) use of insulin; F39 Unspecified mood [affective] disorder; E78.00 Pure hypercholesterolemia, unspecified; K21.9 Gastro-esophageal reflux disease without esophagitis; I25.2 Old myocardial infarction; G47.33 Obstructive sleep apnea (adult) (pediatric); F41.9 Anxiety disorder, unspecified; Z87.891 Personal history of nicotine dependence; Z79.02 Long term (current) use of antithrombotics/antiplatelets; Z79.51 Long term (current) use of inhaled steroids; Z79.899 Other long term (current) drug therapy; Z95.5 Presence of coronary angioplasty implant and graft; Z86.16 Personal history of COVID-19
CPT/HCPCS: 36415; 71045; 80048; 82962; 83036; 84443; 84484; 85025; 85027; 85610; 85730; 93005; 94640; 94668; 99285; J7040; A4216; J2405

== ENCOUNTER 2023-11-05 22:13 | Inpatient (IN) | payer MEDICARE, SELFPAY ==
[2019-05-06 13:18] VITALS: BMI 56.7
--- NOTE | 2023-11-05 22:12 | EKG12_ITS ---
Test Reason : CP Blood Pressure : / mmHG Vent. Rate : 106 BPM Atrial Rate : 110 BPM P-R Int : 160 ms QRS Dur : 086 ms QT Int : 384 ms P-R-T Axes : 015 -07 027 degrees QTc Int : 510 ms Sinus tachycardia with Fusion complexes Inferior infarct , age undetermined Abnormal ECG Confirmed by KEIKO SILVA, REHAN ([id number]), primer expeditor and drier ODALYS PHILIPPE ([id number]) on 11/09/2023 11:35:18 AM Referred By: [facility] Confirmed By:REHAN ADEN MD
[2023-11-05 22:18] VITALS: BP 140/76; PULSE 97; RESP 18; TEMP 36.4; O2SAT 98; BMI 46.9
[2023-11-05] MEDS: proCHLORPERazine 10 MG/2 ML Vial IV (22:51)
[2023-11-05] MEDS: 0.9% Normal Saline (1000mL) 1,000 ML 999 ML IV (22:51)
--- NOTE | 2023-11-05 22:56 | CT_ITS ---
INDICATION: abd pain EXAMINATION: CT ABDOMEN AND PELVIS WITH CONTRAST - CT Abdomen And Pelvis W/ Contrast Injection TECHNIQUE: Helically acquired images were obtained of the abdomen and pelvis following IV contrast. A radiation dose optimization technique was used for this scan. IV Contrast dosage and agent: 75 cc [id number] Oral contrast: None. COMPARISON: None. FINDINGS: LOWER CHEST: Lung bases are clear. No cardiomegaly or pericardial effusion. LIVER: Homogeneous. No focal mass. GALLBLADDER AND BILIARY TREE: Cholecystectomy. No intra- or extrahepatic biliary ductal dilation. PANCREAS: Atrophic without focal cystic or solid mass. SPLEEN: Normal size without focal cystic or solid mass. Accessory splenule. ADRENAL GLANDS: No nodules. KIDNEYS AND URETERS: Bilateral nonobstructing nephrolithiasis. No hydronephrosis. PERITONEUM: No ascites or free air. BOWEL: Normal appendix. No stomach or bowel distension. No focal inflammatory change. LYMPH NODES: No enlarged mesenteric or retroperitoneal lymph nodes. VESSELS: Aorta is non-dilated. URINARY BLADDER: Unremarkable. REPRODUCTIVE ORGANS: No pelvic masses. ABDOMINAL WALL: No discrete abdominal or pelvic wall hernia. BONES: No acute or aggressive abnormality. Surgical changes from posterior lumbar fusion with hardware L4-S1. CT/Abdomen/Pelvis W IV Cont ONLY IMPRESSION: No acute findings in the abdomen or pelvis. Nonobstructing bilateral nephrolithiasis. Electronically Signed: Leo Márquez MD at 0:33 EDT ,
[2023-11-05 23:10] LABS: Absolute Lymphocyte Count 2.91 X10^3/uL (0.83-4.51); Basophil# 0.09 X10^3/uL; Basophil% 0.7 % (0-1); Eosinophil# 0.25 X10^3/uL; Eosinophils% 1.9 % (0-5); Hematocrit 44.4 % (37-47); Hemoglobin 14.7 g/dL (12.0-15.0); Lymphocyte # 2.91 X10^3/ul (0.83-4.51); Mean Corp Hgb Conc 33.1 g/dL (32-36); Mean Corpuscular Hgb 32.1 pg (27.0-32.0); Mean Corpuscular Volume 96.9 fL (81-99); Monocyte# 0.85 X10^3/uL; Monocyte% 6.4 % (0-10); NRBC Flagged by Analyzer 0 % (0-5); Neutrophil # 9.03 X10^3/uL (2.7-7.7); Neutrophil % 68.5 % (47-70); Platelet Count 310 K/mm3 (150-450); RBC Distribution Width CV 13.6 % (11.6-14.6); RBC Distribution Width SD 48.1 fl (35.1-43.9); Red Blood Count 4.58 M/mm3 (4.2-5.4); White Blood Count 13.2 K/mm3 (4.4-11.0)
[2023-11-05 23:14] VITALS: BP 193/96; PULSE 95; RESP 24; O2SAT 97
[2023-11-05 23:41] LABS: AST(SGOT) 21 U/L (15-37); Alanine Aminotransfer ALT/SGPT 19 U/L (13-56); Albumin, Serum 4.1 g/dL (3.2-5.0); Alkaline Phosphatase 99 U/L (45-117); Anion Gap 20 (5-15); BUN 15 mg/dL (7-18); BUN/Creat Ratio 16.6 RATIO (10-20); Bilirubin, Direct 0.26 mg/dL (0.00-0.30); Calcium,Total 9.3 mg/dL (8.5-10.1); Chloride 107 mmol/L (98-107); Creatinine, Serum 0.91 mg/dL (0.55-1.02); EST Glomerular Filtration Rate 70 mL/min (>60); Est Glom Filt Rate - Afr Amer 85 mL/min (>60); Estimated Creatinine Clearance 99.66 ml/min; Glucose 200 mg/dL (74-106); Lipase < 10 U/L (13-75); Potassium 4.3 mmol/L (3.5-5.1); Protein, Total 8.1 g/dL (6.4-8.2); Sodium Level 136 mmol/L (136-145); Troponin-I HS 6 pg/mL (3.0-54.0)
--- NOTE | 2023-11-05 23:58 | RAD_ITS ---
INDICATION: chest pain EXAMINATION/TECHNIQUE: X-RAY - portable upright AP chest x-ray COMPARISON: 10/06/2023 FINDINGS: LINES/DEVICES: None. LUNGS: No consolidation, edema or effusion. No pneumothorax. MEDIASTINUM AND CARDIOVASCULAR STRUCTURES: Cardiac silhouette not enlarged. Central airways and mediastinal contour are unremarkable. BONES AND SOFT TISSUES: No acute changes. RAD/Chest 1 View (Portable) IMPRESSION: No radiographic evidence of acute cardiopulmonary disease. Electronically Signed: Leo Márquez MD at 0:34 EDT ,
[2023-11-06] VITALS (32 sets, daily range): BP systolic 141–196; BP diastolic 80–118; PULSE 89–132; RESP 17–26; TEMP 36.2–36.3; O2SAT 96–100; BMI 46.9
[2023-11-06] MEDS: Metoclopramide 10 MG/2 ML Vial 5 MG IV (00:33)
[2023-11-06 00:38] LABS: Blood Gas Specimen Type VEN; O2 Delivery Device Room Air; SITE Not entered; VBG BASE EXCESS -20 mmol/L (-1.0-3.5); VBG Bicarbonate 9 mmol/L (22-26); VBG PO2 63 mmHg (25-40); VBG SO2 85 % (50-70); VBG TCO2 10 mmol/L (23-33); VBG pCO2 25.3 mmHg (41-51); VBG pH 7.15 (7.32-7.42)
[2023-11-06 01:45] LABS: Troponin-I HS 6 pg/mL (3.0-54.0)
--- NOTE | 2023-11-06 02:01 | HP.PCM.HOS_ITS ---
HPI - General General Date of Admission: 11/06/23 Date of Service: 11/06/23 Chief Complaint: Intractable N/V. HPI Narrative The patient is a 48 y/o F w/ PMHx: Diabetes mellitus type II, GERD, Hypothyroidism, Morbid Obesity, GEOVANI on CPAP, HTN, HLD, Anxiety and Depression/bipolar disorder, Hypothroidism, COPD/Asthma, Former tobacco use, Extensive CAD s/p STEMI s/p PCI with history of 06/12/23 cardiac catheterization with severe RCA lesion as well as patent stent to proximal LAD, 70% mid LAD lesion, in-stent restenosis proximal mid RCA transfer to tertiary facility for consideration of laser/rotablation/brachytherapy to the RCA as well as rotablation to mid LAD with hospitalization at [facility] through 06/23 with evaluation by cardiothoracic surgery and interventional cardiology eventually pursuing PCI to the proximal RCA with laser to region of previously placed stent on 06/22 with admission with recurrent chest discomfort eventually transition once bed available to [facility] where she notes she had a repeat catheterization with no intervention with continued medical management who now represents to the [facility] ED on 11/06/2023 with onset over the last 3-4 days of awaiting with episode of nausea and emesis which seemed rate limited but unfortunately on 11/05/23 am she had again recurrent nausea, emesis which worsened and became intractable with no diarrhea nor abdominal pain nor any fever or chills with then onset of chest discomfort following her serial bouts but subsided upon ED evaluation with generalized body aches and fatigue. She reports significant recent polydipsia and polyuria. Workup in the ED included T97.5, heart 97, BP 140/76, respiratory rate 18, 98% on room air, CBC with WBC 13.2, hemoglobin 14.7, platelet 310 with left shift, VBG with pH 7.15, pO2 63, bicarb 9, O2 saturation 85% obtained on room air, CMP with carbon oxide 9, anion gap 20, glucose 200, hepatic profile not marked appearing, lipase less than 10, troponin 6 with repeat delta 6 also, chest x-ray with no acute cardiopulmonary findings, CT abdomen and pelvis with nonobstructing bilateral nephrolithiasis with no acute intra-abdominal findings otherwise. Reviewed presentation with ED physician and suspect DKA with pending urinalysis and acetone levels prior to initiation of insulin drip. In the ED patient administered 1 L normal saline, Reglan 5 mg IV x 1, Zofran 4 mg IV x 1, morphine 4 mg IV x 1 as well as prochlo rperazine 10 mg IV x 1. Order also placed for insulin drip given high suspicion while awaiting labs to confirm DKA. [facility] Medical History (Updated 11/06/23 @ 02:[address] Suzanne Chowdhury MD) Anxiety and depression Asthma Atherosclerotic heart disease of [place] coronary artery without angina pectoris Blood disorder CHF (congestive heart failure) Chronic obstructive pulmonary disease Chronic pain COVID-19 Diabetes mellitus, type II Essential hypertension GERD (gastroesophageal reflux disease) Heart attack Hypercholesterolemia Hypothyroidism Irregular heartbeat Morbid obesity with BMI of 50.0-59.9, adult Nicotine dependence Nonadherence to medication GEOVANI (obstructive sleep apnea) Sinus bradycardia by electrocardiogram Sleep-disordered breathing Smoker ST elevation myocardial infarction (STEMI) of inferior wall Home Medications albuterol sulfate 90 mcg/actuation aerosol inhaler 1 - 2 puff inhalation Q4H PRN PRN Wheezing ##1 10/15/15 [Rx Last Taken 10/19/20] budesonide-formoterol HFA 160 mcg-4.5 mcg/actuation aerosol inhaler 2 puff PO BID breathing 05/07/19 [History Last Taken 10/20/20] bupropion HCl 300 mg 24 hr tablet, extended release 300 mg PO DAILY MOOD 09/25/20 [History Last Taken 10/20/20] lorazepam 1 mg tablet 0.5 - 1 mg PO TID PRN Anxiety 04/24/21 [History Last Taken Unknown] ondansetron 4 mg disintegrating tablet 4 mg PO Q8H PRN nausea and vomiting #10 tabs 12/31/21 [Rx Last Taken Unknown] atorvastatin 80 mg tablet 80 mg PO QHS cholesterol #90 tabs 03/25/22 [Rx Last Taken Unknown] levothyroxine 200 mcg tablet 200 mcg PO DAILY 03/25/22 [History Last Taken Unknown] levothyroxine 75 mcg tablet 75 mcg PO DAILY 03/25/22 [History Last Taken Unknown] bupropion HCl 150 mg 24 hr tablet, extended release 150 mg PO DAILY 04/06/23 [History Last Taken Unknown] carvedilol 25 mg tablet 25 mg PO Q12H 04/06/23 [History Last Taken Unknown] levothyroxine 300 mcg tablet 300 mcg PO .thursday04/06/23 [History Last Taken Unknown] blood pressure monitor #1 ea 04/30/23 [Rx Last Taken Unknown] lisinopril 40 mg tablet 40 mg PO DAILY blood pressure #90 tabs 04/30/23 [Rx Last Taken Unknown] nitroglycerin 0.4 mg sublingual tablet 0.4 mg sublingual Q5-15M PRN chest pain #25 tabs 04/30/23 [Rx Last Taken Unknown] pantoprazole 40 mg tablet,delayed release 40 mg PO DAILY acid reflux #30 tabs 04/30/23 [Rx Last Taken Unknown] ticagrelor 90 mg tablet (Brilinta) See Rx Instructions .Route .COMPLEX #180 tabs 05/15/23 [Rx Last Taken Unknown] blood sugar diagnostic ([email or web address] Verio test strips) 10/06/23 [History Last Taken Unknown] blood-glucose meter (FisionTouch Verio Flex Meter) 10/06/23 [History Last Taken Unknown] flash glucose sensor (FreeStyle Konstantin 2 Sensor kit) 10/06/23 [History Last Taken Unknown] insulin syringe-needle U-100 0.5 mL 31 gauge x 5/16 (BD Insulin Syringe Ultra- Fine) 10/06/23 [History Last Taken Unknown] isosorbide mononitrate 60 mg tablet,extended release 24 hr 60 mg PO DAILY 10/06/23 [History Last Taken Unknown] lamotrigine 150 mg tablet 150 mg PO BID 10/06/23 [History Last Taken Unknown] lamotrigine 25 mg tablet 50 mg PO DAILY 10/06/23 [History Last Taken Unknown] lancets 33 gauge (Unilet Lancet) 10/06/23 [History Last Taken Unknown] ranolazine 500 mg tablet,extended release,12 hr 500 mg PO BID 10/06/23 [History Last Taken Unknown] insulin lispro 100 unit/mL subcutaneous pen (Humalog KwikPen (U-100) Insulin) See Protocol subcut ACHS #0 mL 10/09/23 [Rx Last Taken Unknown] oxycodone 5 mg tablet 5 mg PO Q4H PRN PRN Pain Score 6-10 #0 tabs 10/09/23 [Rx Last Taken Unknown] sennosides 8.6 mg tablet (senna) 8.6 mg PO BID #0 tabs 10/09/23 [Rx Last Taken Unknown] insulin glargine-yfgn 100 unit/mL (3 mL) subcutaneous pen 35 unit subcut QHS 11/05/23 [History Last Taken Unknown] insulin lispro 100 unit/mL subcutaneous pen (Humalog KwikPen (U-100) Insulin) 15 unit subcut TIDAC 11/05/23 [History Last Taken Unknown] Allergy/AdvReac Type Severity Reaction Status Date / Time metformin [From Glucophage] AdvReac Intermediate Diarrhea Verified 11/05/23 22:14 Family History Mother Cancer lung Father Hypertension COPD (chronic obstructive pulmonary disease) Daughter Factor V deficiency Grandmother Cancer lung COPD (chronic obstructive pulmonary disease) Surgical History H/O cardiac catheterization History of back surgery History of delivery History of cholecystectomy History of coronary artery stent placement (04/06/23) History of dilatation and curettage History of left heart catheterization (04/06/23) History of percutaneous transluminal coronary angioplasty (~10/20/20) History of tonsillectomy and adenoidectomy History of tubal ligation S/P tubal ligation Social History household members: none Smoking Status: Former smoker alcohol intake: current alcohol intake frequency: holidays/special occasions only substance use type: does not use caffeine: Yes ROS ROS Narrative Admission Review of Systems: CONSTITUTIONAL: No weight loss, fever, chills, + weakness or fatigue. HEENT: Eyes: No visual loss, blurred vision, double vision or yellow sclerae. Ears, Nose, Throat: No hearing loss, sneezing, congestion, runny nose or sore throat. SKIN: No rash or itching, lesions, wounds. CARDIOVASCULAR: + Chest pain, chronic mild lower extremity peripheral edema. Palpitations, orthopnea, syncopal events. RESPIRATORY: No shortness of breath, cough or sputum, wheezing, hemoptysis. GASTROINTESTINAL: + Anorexia, nausea, vomiting. No diarrhea, constipation, abdominal pain, melena, BRBPR. GENITOURINARY: No dysuria, frequency, urgency or retention. NEUROLOGICAL: + Lethargy. No headache, dizziness, syncope, paralysis, ataxia, numbness or tingling in the extremities, focal weakness, change in bowel or bladder control, seizure. MUSCULOSKELETAL: + muscle, back pain, joint pain or stiffness. HEMATOLOGIC: No anemia. + Easy bleeding/bruising. LYMPHATICS: No enlarged nodes. No history of splenectomy. PSYCHIATRIC: + History of anxiety and depression ENDOCRINOLOGIC: No reports of sweating, cold or heat intolerance. + polyuria or polydipsia. ALLERGIES: + Asthma, allergic rhinitis. Vital Signs Vital Signs Vital Signs: 11/05/23 22:18 11/05/23 23:14 11/06/23 00:14 Temperature 97.5 F L Temperature Source Oral Pulse Rate 97 95 89 Respiratory Rate 18 24 H 22 H Blood Pressure 140/76 H 193/96 H 160/100 H Blood Pressure Mean 97 128 120 Pulse Ox 98 97 98 Oxygen Delivery Method Room Air Room Air 11/06/23 01:00 Temperature Temperature Source Pulse Rate 101 H Respiratory Rate 19 H Blood Pressure 172/118 H Blood Pressure Mean 136 Pulse Ox 97 Oxygen Delivery Method Room Air Weight Weight: 281 lb 15.539 oz Body Mass Index (BMI) 46.9 Physical Exam Narrative Physical Examination: General: Awakens to stimuli, alert with discussions but very fatigued and lethargic, falling back asleep but answering questions appropriately, oriented to self, place and recent events, remains cooperative, seated upright in the ED bed, fatigued and ill-appearing. Skin: Normal color, normal turgor, no icterus, no cyanosis except occasional staged ecchymoses. HEENT: AT/NC, EOMI, PERRLA, dry MM, no carotid bruits or JVD noted. Lungs: Diminished, greater bases, distant breath sounds, mildly increased respiratory rate but no distress, no rales, ronchi or wheezing. Heart: Mildly tachycardic with regular rhythm; no gallop, rub audible. Abdomen: Soft, morbidly obese, NTTP, distant BS, difficult to discern distention and HSM given habitus. Extremities: No cyanosis, no clubbing, mild peripheral pedal not markedly pitting edema. Neurological: Awakens to stimuli, alert with discussions but very fatigued and lethargic, falling back asleep but answering questions appropriately, oriented to self, place and recent events, remains cooperative, seated upright in the ED bed, fatigued and ill-appearing, cognitive function mildly decreased from baseline given lethargy with presentation; pupils equally reactive to light and accommodation, cranial nerves grossly normal, moving all 4 extremities, no focal deficits, strength severely globally decreased. Psychiatric: Affect appears flat, fatigued, lethargic, ill-appearing, no acute evidence of depressive or anxiety feelings but does have underlying history. Results Lab / Micro Data 11/05/23 22:43 11/05/23 22:43 Labs: Laboratory Results - last 24 hr 11/05/23 22:43: WBC 13.2 H, RBC 4.58, Hgb 14.7, Hct 44.4, MCV 96.9, MCH 32.1 H, MCHC 33.1, RDW Std Deviation 48.1 H, RDW Coeff of Whitney 13.6, Plt Count 310, MPV 11.0, Immature Gran % (Auto) 0.500, Neut % (Auto) 68.5, Lymph % (Auto) 22.0, [place] % (Auto) 6.4, Eos % (Auto) 1.9, Baso % (Auto) 0.7, Absolute Neuts (auto) 9.0 H, Absolute Lymphs (auto) 2.91, Nucleated RBC % 0, Sodium 136, Potassium 4.3, Chloride 107, Carbon Dioxide 9.0 L*, Anion Gap 20 H, BUN 15, Creatinine 0.91, Estim Creat Clear Calc 99.66, Est GFR (MDRD) Af Amer 85, Est GFR (MDRD) Non-Af 70, BUN/Creatinine Ratio 16.6, Glucose 200 H, Calcium 9.3, Total Bilirubin 0.90, Direct Bilirubin 0.26, AST 21, ALT 19, Alkaline Phosphatase 99, Troponin I High Sens 6, Total Protein 8.1, Albumin 4.1, Globulin 4.0, Lipase < 10 L 11/06/23 01:20: Troponin I High Sens 6 ABG Data ABG results: ABG 11/06/23 00:34 Specimen Type COLLIN Sample Site Not entered VBG pH 7.15 L* VBG pO2 63 H VBG HCO3 9 L VBG Total CO2 10 L VBG O2 Sat (Calc) 85 H VBG Base Excess -20 L POC Mix VBG pCO2 Pt Tmp 25.3 L O2 Delivery Device Room Air Crit Call To/Read Back Yes Blood Gas Notified Whom andes Blood Gas Notified Time 00:36:31 Imaging Radiology Impression Abdomen/Pelvis CT 11/05/23 22:56 IMPRESSION: No acute findings in the abdomen or pelvis. Nonobstructing bilateral nephrolithiasis. Electronically Signed: Leo Márquez MD at 0:33 EDT , Chest X-Ray 11/05/23 23:58 IMPRESSION: No radiographic evidence of acute cardiopulmonary disease. Electronically Signed: Leo Márquez MD at 0:34 EDT , Assessment & Plan Assessment/Plan (1) Intractable nausea and vomiting: PLAN: Plan The patient is a 48 y/o F w/ PMHx: Diabetes mellitus type II, GERD, Hyp othyroidism, Morbid Obesity, GEOVANI on CPAP, HTN, HLD, Anxiety and Depression/bipolar disorder, Hypothroidism, COPD/Asthma, Former tobacco use, Extensive CAD s/p STEMI s/p PCI with history of 06/12/23 cardiac catheterization with severe RCA lesion as well as patent stent to proximal LAD, 70% mid LAD les ion, in-stent restenosis proximal mid RCA transfer to tertiary facility w/ eventual PCI to the proximal RCA with laser to region of previously placed stent on 06/22 who now represents to the [facility] ED on 11/06/2023 with onset over the last 3-4 days of awaiting with episode of nausea and emesis which seemed rate limited but unfortunately on 11/05/23 am she had again recurrent nausea, emesis which worsened and became intractable with no diarrhea nor abdominal pain nor any fever or chills with then onset of chest discomfort following her serial bouts but subsided upon ED evaluation with generalized body aches and fatigue. #1. High Suspicion DKA w/ IDDM: As noted high suspicion given significant met abolic acidosis, elevated anion gap and hyperglycemia however still awaiting acetone and urinalysis but high suspicion. If this is confirmatory will initiate insulin drip and will administer bicarb amp x 2. Will admit to the ICU if in fact this is consistent with DKA as noted with bean weigher consultation per protocol. Will plan to continue on insulin drip, check serial K+, glucose w/ IVF changes pending these levels, serial chemistry, obtain mag, phos daily w/ repletion as needed, transition to home SC regimen when gap closed w/ overlap on drip, nutrition consultation. Encourage diet and insulin regimen compliance. Hemoglobin A1c requested. #2. Intractable nausea, emesis: Suspected likely associate with number 1 but possibly gastroenteritis concurrently, no diarrheal illness associated, will continue treatment as noted above, maintain on IV PPI, have antiemetic regimen as needed, CT abdomen pelvis with no concerning findings of note. #3. Chronic Chest Pain: EKG in ED sinus rhythm with no acute evidence of ischemia with nonspecific ST-T changes similar to previous, CXR w/ no acute cardiopulmonary findings, initial trop 6 with repeat delta 6 also. Will maintain on a monitored bed to assure no acute myocardial infarction with serial cardiac enzymes and EKGs. Suspect this is related with acute presentation #1, #2. Magnesium level requested. Will continue to closely monitor. #4. Extensive CAD: We will continue patient home aspirin, Brilinta, Ranexa, Coreg, lisinopril, statin home regimen. As noted patient with extensive history with cardiac catheterization 06/12/2023 with notable disease with eventual transition to [facility] and eventual PCI attempt to previous PCI region eventually discharged however returned to [facility] with transition to [facility] 10/09/2023. 04/06/2023 echocardiogram with normal LV size, moderate LV hypertrophy, LV systolic function normal, EF 55%. Records requested from [facility] recent presentation although patient reports repeat cardiac catheterization there with no intervention with planned outpatient follow-up with [facility]. #5. Hypothyroidism: We will continue patient home levothyroxine regimen. #6. Anxiety and depression/bipolar disorder: We will continue patient home bupropion, Ativan, lamotrigine home regimen. #7. Hypertension: Continue home regimen including isosorbide, Coreg, lisinopril, PRN hydralazine. #8. Hyperlipidemia: We will continue patient on statin therapy. #9. Chronic COPD/asthma: Will temporally hold home inhalers in the interim transition to ATC budesonide therapy, PRN albuterol, HOB, IS parameters. #10. Former tobacco use: Encourage continued tobacco cessation. #11. Morbid Obesity: Weight loss and lifestyle changes encouraged. #12. GERD: Continue home PPI. #13. GEOVANI: CPAP nightly as long as N/V resolving. #14. DVT prophylaxis: Lovenox. #15. CODE status: Patient HCPOA and living will not in place but she notes her son would be her medical decision-maker if necessary. Discussed CODE status at length including difference between FULL code, DNR-CCA and DNR-CC status. Following discussions about the differences in these status, requested Full Code status. Charges/Coding Visit Charges Inpatient E&M: 17370 Init Hosp L3
[2023-11-06] MEDS: Insulin Lispro 100 UNIT in 0.9% Normal Saline (100mL Bag) 99 ML 12.8 UNIT CONT INF (02:13)
[2023-11-06] MEDS: Ondansetron 4 MG/2 ML Vial IV ×4 (02:13→22:37)
[2023-11-06] MEDS: Morphine 4 MG/ML Syringe IV (02:13)
[2023-11-06 02:42] LABS: Bacteria 0 SEEN /hpf (None Seen); Mucous, Urine 0 SEEN /hpf (<or=2+); Red Blood Cells-Urine 0 SEEN /hpf (0-5); Squamous Epithelial Cells - UA 0 SEEN /hpf (5-10); White Blood Cells 0 SEEN /hpf (0-5)
[2023-11-06 02:43] LABS: Color, Urine Yellow (Yellow); Glucose, Dipstick 1000 mg/dl (Normal); Leukocyte Esterase-Dipstick Negative /ul (Negative); Nitrite-Dipstick Negative (Negative); Occult Blood-Urine Negative /ul (Negative); Protein-Dipstick 15 mg/dl (Negative); Urine Bilirubin Dipstick Negative (Negative); Urine Clarity Clear (Clear); Urine Urobilinogen Normal (Normal)
--- NOTE | 2023-11-06 02:44 | EDS_ITS ---
HPI History of Present Illness Chief Complaint: Chest Pain Informant: patient Narrative Narrative: Patient is a 48-year-old female with past medical history of CAD and stent placement as well as insulin-dependent diabetes and hypertension. Patient was seen in the ER early October/roughly 1 month ago and admitted for unstable angina. She said a few days at this facility and then went to [facility] where she was followed by cardiology and had a repeat heart cath at which time they recommended outpatient intervention and continued medical treatment. Patient states that for the past 4 days she has been having bouts of vomiting each morning however today the vomiting occurred as it has and then persisted. She states she has been taking her medications as directed but that few hours prior to arrival she developed chest pain as well as persistent nausea and vomiting and therefore called EMS to be brought in for evaluation [facility] Medical History (Updated 11/06/23 @ 04:[address] Gustavo Herrera, DO) Anxiety and depression Asthma Atherosclerotic heart disease of [place] coronary artery without angina pectoris Blood disorder CHF (congestive heart failure) Chronic obstructive pulmonary disease Chronic pain COVID-19 Diabetes mellitus, type II Essential hypertension GERD (gastroesophageal reflux disease) Heart attack Hypercholesterolemia Hypothyroidism Irregular heartbeat Morbid obesity with BMI of 50.0-59.9, adult Nicotine dependence Nonadherence to medication GEOVANI (obstructive sleep apnea) Sinus bradycardia by electrocardiogram Sleep-disordered breathing Smoker ST elevation myocardial infarction (STEMI) of inferior wall Home Medications albuterol sulfate 90 mcg/actuation aerosol inhaler 1 - 2 puff inhalation Q4H PRN PRN Wheezing ##1 10/15/15 [Rx Last Taken 10/19/20] budesonide-formoterol HFA 160 mcg-4.5 mcg/actuation aerosol inhaler 2 puff PO BID breathing 05/07/19 [History Last Taken 10/20/20] bupropion HCl 300 mg 24 hr tablet, extended release 300 mg PO DAILY MOOD 09/25/20 [History Last Taken 10/20/20] lorazepam 1 mg tablet 0.5 - 1 mg PO TID PRN Anxiety 04/24/21 [History Last Taken Unknown] ondansetron 4 mg disintegrating tablet 4 mg PO Q8H PRN nausea and vomiting #10 tabs 12/31/21 [Rx Last Taken Unknown] atorvastatin 80 mg tablet 80 mg PO QHS cholesterol #90 tabs 03/25/22 [Rx Last Taken Unknown] levothyroxine 200 mcg tablet 200 mcg PO DAILY 03/25/22 [History Last Taken Unknown] levothyroxine 75 mcg tablet 75 mcg PO DAILY 03/25/22 [History Last Taken Unknown] bupropion HCl 150 mg 24 hr tablet, extended release 150 mg PO DAILY 04/06/23 [History Last Taken Unknown] carvedilol 25 mg tablet 25 mg PO Q12H 04/06/23 [History Last Taken Unknown] levothyroxine 300 mcg tablet 300 mcg PO .thursday04/06/23 [History Last Taken Unknown] blood pressure monitor #1 ea 04/30/23 [Rx Last Taken Unknown] lisinopril 40 mg tablet 40 mg PO DAILY blood pressure #90 tabs 04/30/23 [Rx Last Taken Unknown] nitroglycerin 0.4 mg sublingual tablet 0.4 mg sublingual Q5-15M PRN chest pain #25 tabs 04/30/23 [Rx Last Taken Unknown] pantoprazole 40 mg tablet,delayed release 40 mg PO DAILY acid reflux #30 tabs 04/30/23 [Rx Last Taken Unknown] ticagrelor 90 mg tablet (Brilinta) See Rx Instructions .Route .COMPLEX #180 tabs 05/15/23 [Rx Last Taken Unknown] blood sugar diagnostic (OneTouch Verio test strips) 10/06/23 [History Last Taken Unknown] blood-glucose meter (OneTouch Verio Flex Meter) 10/06/23 [History Last Taken Unknown] flash glucose sensor (FreeStyle Konstantin 2 Sensor kit) 10/06/23 [History Last Taken Unknown] insulin syringe-needle U-100 0.5 mL 31 gauge x 5/16 (BD Insulin Syringe Ultra- Fine) 10/06/23 [History Last Taken Unknown] isosorbide mononitrate 60 mg tablet,extended release 24 hr 60 mg PO DAILY 10/06/23 [History Last Taken Unknown] lamotrigine 150 mg tablet 150 mg PO BID 10/06/23 [History Last Taken Unknown] lamotrigine 25 mg tablet 50 mg PO DAILY 10/06/23 [History Last Taken Unknown] lancets 33 gauge (Unilet Lancet) 10/06/23 [History Last Taken Unknown] ranolazine 500 mg tablet,extended release,12 hr 500 mg PO BID 10/06/23 [History Last Taken Unknown] insulin lispro 100 unit/mL subcutaneous pen (Humalog KwikPen (U-100) Insulin) See Protocol subcut ACHS #0 mL 10/09/23 [Rx Last Taken Unknown] oxycodone 5 mg tablet 5 mg PO Q4H PRN PRN Pain Score 6-10 #0 tabs 10/09/23 [Rx Last Taken Unknown] sennosides 8.6 mg tablet (senna) 8.6 mg PO BID #0 tabs 10/09/23 [Rx Last Taken Unknown] insulin glargine-yfgn 100 unit/mL (3 mL) subcutaneous pen 35 unit subcut QHS 11/05/23 [History Last Taken Unknown] insulin lispro 100 unit/mL subcutaneous pen (Humalog KwikPen (U-100) Insulin) 15 unit subcut TIDAC 11/05/23 [History Last Taken Unknown] Allergy/AdvReac Type Severity Reaction Status Date / Time metformin [From Glucophage] AdvReac Intermediate Diarrhea Verified 11/05/23 22:14 Family History Mother Cancer lung Father Hypertension COPD (chronic obstructive pulmonary disease) Daughter Factor V deficiency Grandmother Cancer lung COPD (chronic obstructive pulmonary disease) Surgical History H/O cardiac catheterization History of back surgery History of delivery History of cholecystectomy History of coronary artery stent placement (04/06/23) History of dilatation and curettage History of left heart catheterization (04/06/23) History of percutaneous transluminal coronary angioplasty (~10/20/20) History of tonsillectomy and adenoidectomy History of tubal ligation S/P tubal ligation Social History household members: none Smoking Status: Former smoker alcohol intake: current alcohol intake frequency: holidays/special occasions only substance use type: does not use caffeine: Yes ROS ROS ED Constitutional Constitutional ED: Denies chills or fever(s) ENT ENT ED: Denies sore throat Cardiovascular Cardiovascular: Reports chest pain Respiratory/Chest Respiratory/Chest: Denies cough or dyspnea Gastrointestinal Gastrointestinal: Reports abdominal pain, nausea and vomiting; Denies diarrhea Genitourinary Genitourinary ED: Denies dysuria or hematuria Musculoskeletal Musculoskeletal: Reports myalgias Integumentary Denies rash Neurologic Neurologic: Reports weakness; Denies headache(s) Hematologic/Lymphatic Hematologic/Lymphatic: Reports easy bleeding and easy bruising EXAM Physical Exam Const Vital Signs: 11/05/23 22:18 11/05/23 23:14 11/06/23 00:14 Temperature 97.5 F L Temperature Source Oral Pulse Rate 97 95 89 Respiratory Rate 18 24 H 22 H Blood Pressure 140/76 H 193/96 H 160/100 H Blood Pressure Mean 97 128 120 Pulse Ox 98 97 98 Oxygen Delivery Method Room Air Room Air 11/06/23 01:00 11/06/23 01:52 11/06/23 02:00 Temperature Temperature Source Pulse Rate 101 H 103 H 102 H Respiratory Rate 19 H 25 H 25 H Blood Pressure 172/118 H 168/106 H 173/96 H Blood Pressure Mean 136 126 121 Pulse Ox 97 97 96 Oxygen Delivery Method Room Air Room Air Positive well nourished, well developed and obese General Appearance ED: well developed; Negative for pallor Nutritional Appearance: obese HEENT Reports dry mucous membranes HEENT Narrative: Mucous membranes are dry and tacky without tongue or lip swelling oral lesions or airway edema or compromise No secondary changes in the posterior pharynx to suggest infection Mouth ED: Yes dry mucous membranes Mouth: dry mucous membranes Eyes EOMs intact bilaterally Eyes Narrative: Pupils are constricted/pinpoint nature with minimal reaction to light Extraocular muscles are intact No scleral icterus noted No secondary changes to suggest infection General Eye ED: Negative for pale conjunctiva or scleral icterus Neck supple Neck Narrative: No nuchal rigidity or meningeal signs noted Resp clear to auscultation bilaterally Resp Narrative: Patient is tachypneic but otherwise no nasal flaring retractions or accessory muscle use Breath sounds are clear to auscultation without rales or rhonchi to suggest infection Cardio regular rhythm Rate: tachycardic and other Other Details: Radial and carotid pulses are equal and symmetric GI non-distended and no masses GI Narrative: Abdomen is obese soft and nondistended with normal active bowel sounds. There is mild diffuse pain on palpation without voluntary guarding or rigidity or pulsatile mass Auscultation: normoactive bowel sounds Palpation: soft Extremity normal to inspection Extremity Narrative: No asymmetric edema no pitting edema negative Homans' sign bilaterally Neuro oriented x3, CN's II-XII intact bilaterally and no sensory deficits noted Sensorium / Orientation: alert Motor Exam: strength 5/5 throughout Psych mental status grossly normal Skin no rashes or lesions noted, no wounds and No skin turgor normal Skin Narrative: Skin turgor is slightly increased but otherwise no jaundice or pallor or wounds or secondary findings to suggest infection General Skin Exam: Negative for jaundice or pallor MDM MDM MDM Narrative Medical decision making narrative: Patient presented to the ER hypertensive but has a past medical history of this. She reported vomiting each morning for the past few days which is concerning for severe acid reflux but then this progressed to intractable nausea and vomiting today. Differential diagnosis is for viral stomach infection versus biliary colic versus acute cholecystitis versus pancreatitis versus DKA versus HHS. As her chest pain only began after multiple bouts of vomiting felt this was most likely musculoskeletal in nature however as she has known CAD it could still be a non-STEMI or acute coronary syndrome so EKG and troponin test were obtained. EKG was just sinus tachycardia without dysrhythmia or ischemic changes and troponins were normal at 6 going against acute coronary syndrome. Patient anion gap is elevated however and serum bicarb is low most consistent with DKA. Secondary to this patient was provided IV hydration and started on an insulin drip. Based on the patient's laboratory findings suggesting she appears to be in DKA medicine was contacted and she was admitted to the ICU for further care History & Record Review Discussion w/independent historian: Patient Lab Data Attestation: I reviewed the patient's lab results. Labs: Laboratory Results - last 24 hr 11/05/23 11/06/23 22:43 01:20 WBC 13.2 H RBC 4.58 Hgb 14.7 Hct 44.4 MCV 96.9 MCH 32.1 H MCHC 33.1 RDW Std Deviation 48.1 H RDW Coeff of Whitney 13.6 Plt Count 310 MPV 11.0 Immature Gran % (Auto) 0.500 Neut % (Auto) 68.5 Lymph % (Auto) 22.0 [place] % (Auto) 6.4 Eos % (Auto) 1.9 Baso % (Auto) 0.7 Absolute Neuts (auto) 9.0 H Absolute Lymphs (auto) 2.91 Nucleated RBC % 0 Sodium 136 Potassium 4.3 Chloride 107 Carbon Dioxide 9.0 L* Anion Gap 20 H BUN 15 Creatinine 0.91 Estim Creat Clear Calc 99.66 Est GFR (MDRD) Af Amer 85 Est GFR (MDRD) Non-Af 70 BUN/Creatinine Ratio 16.6 Glucose 200 H Calcium 9.3 Phosphorus 3.0 Magnesium 1.9 Total Bilirubin 0.90 Direct Bilirubin 0.26 AST 21 ALT 19 Alkaline Phosphatase 99 Troponin I High Sens 6 6 Total Protein 8.1 Albumin 4.1 Globulin 4.0 Lipase < 10 L ABG Data ABG results: ABG 11/06/23 00:34 Specimen Type COLLIN Sample Site Not entered VBG pH 7.15 L* VBG pO2 63 H VBG HCO3 9 L VBG Total CO2 10 L VBG O2 Sat (Calc) 85 H VBG Base Excess -20 L POC Mix VBG pCO2 Pt Tmp 25.3 L O2 Delivery Device Room Air Crit Call To/Read Back Yes Blood Gas Notified Whom andes Blood Gas Notified Time 00:36:31 Radiography Diagnostic Testing: Clinical Impression(s) from Imaging Studies Abdomen/Pelvis CT 11/05/23 22:56 IMPRESSION: No acute findings in the abdomen or pelvis. Nonobstructing bilateral nephrolithiasis. Electronically Signed: Leo Márquez MD at 0:33 EDT , Chest X-Ray 11/05/23 23:58 IMPRESSION: No radiographic evidence of acute cardiopulmonary disease. Electronically Signed: Leo Márquez MD at 0:34 EDT , Chest x-ray as interpreted by the emergency medicine physician reveals no acute infiltrate pneumothorax or pleural effusion Management Discussion w/another healthcare provider: Hospitalist Critical Care Time Critical care time (excluding procedures): Discussing w/Patient &/or Family/Director Of Clinical Services, Discussing w/Consultants, Performing Direct Patient Care at Bedside and - (Critical care time of 33 minutes) Discharge Plan Dx/Rx/DC Orders Clinical Impression: DKA (diabetic ketoacidosis), Essential hypertension, Coronary artery disease, Intractable nausea and vomiting, Insulin dependent diabetes mellitus Disposition Disposition: Acute Care Hospital [facility] Discharge Date/Time: 11/06/23 03:17
[2023-11-06 03:13] LABS: Magnesium 1.9 mg/dL (1.6-2.6)
[2023-11-06 03:19] LABS: Ketone-Dipstick 150 mg/dl (Negative)
[2023-11-06] MEDS: Dext 5%-0.45% NS 1,000 ML 150 ML IV ×2 (03:45→09:45)
[2023-11-06 04:13] LABS: Bedside Glucose 205 mg/dL (74-106)
[2023-11-06 04:35] LABS: Absolute Lymphocyte Count 1.68 X10^3/uL (0.83-4.51); Absolute Neutrophil Count 11.6 X10^3/uL (2.0-7.7); Basophil# 0.06 X10^3/uL; Basophil% 0.4 % (0-1); Hematocrit 45.4 % (37-47); Hemoglobin 14.5 g/dL (12.0-15.0); Lymphocyte # 1.68 X10^3/ul (0.83-4.51); Lymphocyte % 12.1 % (19-41); Mean Corp Hgb Conc 31.9 g/dL (32-36); Mean Corpuscular Hgb 32.7 pg (27.0-32.0); Mean Corpuscular Volume 102.5 fL (81-99); Mean Platelet Vol. 10.9 fl (6.2-12.0); Monocyte# 0.44 X10^3/uL; Monocyte% 3.2 % (0-10); NRBC Flagged by Analyzer 0 % (0-5); Neutrophil # 11.58 X10^3/uL (2.7-7.7); Neutrophil % 83.6 % (47-70); Platelet Count 317 K/mm3 (150-450); RBC Distribution Width CV 13.6 % (11.6-14.6); Red Blood Count 4.43 M/mm3 (4.2-5.4); White Blood Count 13.9 K/mm3 (4.4-11.0)
[2023-11-06] MEDS: Sodium Bicarbonate 8.4% 50 ML Syringe 50 MEQ IV ×2 (04:39→04:40)
[2023-11-06] MEDS: Pantoprazole Sodium 40 MG in 0.9% Normal Saline (100mL MB+) 100 ML 330 MG IV ×2 (04:40→12:04)
[2023-11-06] MEDS: 0.9% Saline Lock 10 ML Syringe IV ×2 (04:40→19:42)
[2023-11-06] MEDS: Levothyroxine 100 MCG Tablet 200 MCG PO (04:42)
[2023-11-06] MEDS: Levothyroxine 75 MCG Tablet PO (04:42)
[2023-11-06] MEDS: proCHLORPERazine 10 MG/2 ML Vial 5 MG IV ×3 (04:46→18:33)
[2023-11-06 04:48] LABS: Bedside Glucose 153 mg/dL (74-106)
[2023-11-06 05:08] LABS: AST(SGOT) 34 U/L (15-37); Alanine Aminotransfer ALT/SGPT 25 U/L (13-56); Albumin, Serum 3.8 g/dL (3.2-5.0); Alkaline Phosphatase 105 U/L (45-117); Anion Gap 17 (5-15); BUN 16 mg/dL (7-18); BUN/Creat Ratio 16.8 RATIO (10-20); Bilirubin, Direct 0.24 mg/dL (0.00-0.30); Calcium,Total 8.7 mg/dL (8.5-10.1); Chloride 114 mmol/L (98-107); Creatinine, Serum 0.95 mg/dL (0.55-1.02); EST Glomerular Filtration Rate 66 mL/min (>60); Est Glom Filt Rate - Afr Amer 80 mL/min (>60); Estimated Creatinine Clearance 95.47 ml/min; Glucose 143 mg/dL (74-106); Potassium 3.9 mmol/L (3.5-5.1); Protein, Total 7.8 g/dL (6.4-8.2); Sodium Level 138 mmol/L (136-145)
[2023-11-06 05:09] LABS: Osmolality, Serum 314 mOsm/KG (275-295)
[2023-11-06 05:21] LABS: Bedside Glucose 105 mg/dL (74-106)
[2023-11-06 05:56] LABS: Bedside Glucose 95 mg/dL (74-106)
[2023-11-06 06:20] LABS: Troponin-I HS 8 pg/mL (3.0-54.0)
[2023-11-06 07:02] LABS: Bedside Glucose 83 mg/dL (74-106)
[2023-11-06 08:01] LABS: Hemoglobin A1c 7.2 % (3.8-5.6)
[2023-11-06 08:39] LABS: Anion Gap 19 (5-15); BUN 14 mg/dL (7-18); BUN/Creat Ratio 14.5 RATIO (10-20); Calcium,Total 8.9 mg/dL (8.5-10.1); Chloride 111 mmol/L (98-107); Creatinine, Serum 0.96 mg/dL (0.55-1.02); EST Glomerular Filtration Rate 65 mL/min (>60); Est Glom Filt Rate - Afr Amer 79 mL/min (>60); Estimated Creatinine Clearance 94.47 ml/min; Glucose 65 mg/dL (74-106); Potassium 3.8 mmol/L (3.5-5.1); Sodium Level 142 mmol/L (136-145)
[2023-11-06 09:05] LABS: Bedside Glucose 75 mg/dL (74-106)
[2023-11-06] MEDS: Dextrose 10%-Water 250 ML 25 ML IV (09:35)
[2023-11-06 10:03] LABS: Bedside Glucose 103 mg/dL (74-106)
[2023-11-06 10:53] LABS: Bedside Glucose 149 mg/dL (74-106)
--- NOTE | 2023-11-06 11:42 | PRO.PCM_ITS ---
Procedure Report Date of Procedure: 11/06/23 Assessment & Plan Assessment/Plan (1) DKA (diabetic ketoacidosis): QUALIFIERS: Diabetes mellitus type: type 2 Diabetes mellitus complication detail: without coma Qualified Code(s): E11.10 - Type 2 diabetes mellitus with ketoacidosis without coma Procedures Radiology Radiology Access Procedures: PICC Procedure Time Out Time Out Informed consent given: Yes Consent signed: Yes Time out checklist: patient, procedure, site marked/identified, positioning of patient, supplies available and allergies confirmed Time out verified: Yes Time out date: 11/06/23 Time out time: 10:37 PICC Line Consent Screening tool completed:: Yes Consent obtained:: Yes Consent given by (patient or responsible libertarian):: patient Insertion Reason for Insertion: Poor Venous Access Date of Insertion: 11/06/23 Ok to use: Yes Type of PICC inserted: Dual Power PICC PICC Lot #: [id number] PICC Reference #: [id number] Microintroducer Used: Yes (in kit) Ultrasound/Equipment Used: Probe Cover Kit Trimmed Length (cm): 47 Insertion Length (cm): 45 Exposed Length (cm): 2 Tip Placement: Caval Atrial Junction Placement Confirmation: 3CG Insertion Vein: Left Basilic Insertion Attempts: 1 Local Anesthesia Used: Lidocaine 1% (in kit) Dressing Applied: Statlock and Tegaderm CHG Arm Measurement above site (in cm): 36 Patient Tolerated Procedure: Well Threading Difficulties: No Comments Comment: Patient identity was verified with two patient identifiers. Informed consent was obtained and time-out was completed. Hands were sanitized. The patient was positioned supine with left arm at 90 degrees. The patient's upper arm vasculature was assessed using ultrasound. Patency of the left basilic vein was confirmed and the vein was externally marked. An external measurement was obtained of 47 cm. External leads were applied to the patient's right upper chest and laterally and inferior of the umbilicus on the mid axillary line. Cap, mask, and prep gloves were donned. The underdrape was placed under the patient's arm. The site was prepped with chlorhexidine, and tourniquet was loosely applied. Prep gloves were discarded, and hands were sanitized. The sterile kit was opened with additional supplies dropped in. Sterile gown and gloves were donned, and the patient was draped. The sterile kit was assembled with needle, introducer, needless connectors, and each catheter lumen flushed with sterile normal saline. The marked site of insertion was anesthetized with 1% lidocaine from the kit. Patient tolerated well. The left basilic vein was then accessed using ultrasound guidance and guidewire was inserted to safety rafaela. The tourniquet was released. The access needle was removed while securing the guidewire in place. The site was again anesthetized with 1% lidocaine, prior to insertion of introducer sheath and dilator. Patient tolerated the insertion well. The catheter was trimmed to a length of 47 cm. Using 3C guidance, the catheter was then inserted through the introducer sheath, slowly. There was no resistance on insertion. The catheter followed the expected course of the vessel using 3CG tracking. The introducer sheath was retracted and peeled away, incrementally, while keeping the catheter secured. Maximal p-wave, without deflection, confirming placement in the cavoatrial junction, was obtained at an insertion length of 45 cm, leaving 2 cm external. The stylet was removed. A flushed needleless connector was attached to the lumen. Aspiration of the lumen was performed to remove any air and confirm blood return. Blood return was verified and each lumen was flushed with 10 ml of sterile normal saline in a pulsatile fashion. The each lumen was clamped with the last pulsed flush. Total sterile flushes used for the insertion was 7 10 ml syringes, 2 from the kit. Finally, the insertion site was cleaned with chlorhexidine, and the catheter was secured using a StatLock. The site was covered with a Tegaderm CHG Dressing and disinfecting caps were applied. Baseline arm circumference was obtained at the insertion site and measured 36 cm. The patient was provided with a patient education handout on PICC line care of infection prevention, heavy lifting restriction, maintaining mobility, and watching for any signs of infection. The primary nurse is aware that the PICC line is ready for use.
--- NOTE | 2023-11-06 12:01 | CASEMGMT ---
Readmission Note + CM Assessment Index: 10/05-10/09/23. Dx: CP Readmission: 11/06/23. Dx: Suspected DKA, Intractable N/V Pt with a history of Diabetes mellitus type II, GERD, Hypothyroidism, Morbid Obesity, GEOVANI on CPAP, HTN, HLD, Anxiety and Depression/bipolar disorder, Hypothyroidism, COPD/Asthma, Former tobacco use, CAD, STEMI, and cardiac catheterization was admitted on the above noted dates for the corresponding dx?s. On index admission, the pt was transferred to [facility] where she had a repeat cardiac catheterization. Pt then returned to [facility] ER with N/V with onset over the last 3-4 days. There was not an assessment completed from the index admission so this RN CM opted to assess pt at this time. Face to Face with patient for initial transition planning/care coordination assessment. RN MAYRA introduced self and role at [facility], pt voices understanding. Pt is A&Ox3 and is resting comfortably in bed and is calm. Care providers, pharmacy, and demographics verified. Admitting dx: Suspected DKA, Intractable N/V LACE Strata: 3 PCP: Mateo Specialists: Endocrinology through [facility] [place]. Sign Erector through [facility] Main Preferred Pharmacy: [facility] Insurance: [employer] [facility] Prescription Benefit: Yes LNOK: Corneliasaloni Junior ([facility]), Sharonda ([facility]) Living Arrangements: Pt lives with her 19 y/o son in a single story home with a BM and a flat entrance. Pt states that she does not go downstairs. ADLs/IADLs: States ind Transportation: Pt and pt son do not drive. Pt states that she has friends and family that provide transportation DME: working [employer] and enough supplies to check BS. BP cuff and Pulse Ox. Pt denies further DME uses or needs at this time. HHC/SNF: Pt states history of HHC but is unsure what agency. Denies SNF history or needs now. Pt?s goal: Return to [facility] and return home Plan: Pt states that she wishes to return home once medically ready. Pt states that she is ind and feels safe at home. Pt denies the need for HHC at this time. There is no therapy ordered on this pt. CM to follow for safe DC from [facility]. Jewell Quesada RN, CM
[2023-11-06 12:02] LABS: Anion Gap 19 (5-15); BUN 12 mg/dL (7-18); BUN/Creat Ratio 13.6 RATIO (10-20); Calcium,Total 8.6 mg/dL (8.5-10.1); Chloride 112 mmol/L (98-107); Creatinine, Serum 0.88 mg/dL (0.55-1.02); EST Glomerular Filtration Rate 72 mL/min (>60); Est Glom Filt Rate - Afr Amer 87 mL/min (>60); Estimated Creatinine Clearance 103.06 ml/min; Glucose 152 mg/dL (74-106); Potassium 3.8 mmol/L (3.5-5.1); Sodium Level 141 mmol/L (136-145)
[2023-11-06] MEDS: Enoxaparin 40 MG/0.4 ML Syringe SC (12:05)
[2023-11-06] MEDS: Insulin Lispro 100 UNIT in 0.9% Normal Saline (100mL Bag) 99 ML 8.4 UNIT CONT INF (12:28)
--- NOTE | 2023-11-06 12:57 | EX.PCM.CONCC ---
Assessment & Plan Assessment/Plan (1) DKA (diabetic ketoacidosis): QUALIFIERS: Diabetes mellitus type: type 2 Diabetes mellitus complication detail: without coma Qualified Code(s): E11.10 - Type 2 diabetes mellitus with ketoacidosis without coma (2) Insulin dependent diabetes mellitus: PLAN: Plan RECOMMENDATIONS: 1. Additional IV fluid resuscitation as ordered. 2. Continue dextrose containing IV fluids along with insulin infusion. 3. Aggressive electrolyte repletion. 4. Continue bronchodilator therapy. 5. Recommend PAP therapy with naps and nightly. IMPRESSIONS: 1. Abdominal discomfort, nausea and vomiting secondary to diabetic ketoacidosis Continue supportive care along with aggressive management of DKA with supplemental IV fluids as ordered along with continuous insulin infusion. Will continue frequent chemistry checks per protocol with aggressive electrolyte repletion as needed. I do suspect that the patient is still under resuscitated from a volume perspective. Therefore, additional fluids will be administered. 2. Extensive coronary artery disease/hypothyroidism/super morbid obesity/hypertension/hyperlipidemia/questionable COPD/asthma/GEOVANI Complicates care, management, recovery and prognosis. Continue supportive care as noted above. This note was generated with [employer] dictation software. It may contain incorrect words, spelling, and punctuation that were not noted in checking the note before signing. HPI Consult Data Date of Consult: 11/06/23 HPI Narrative Reason for Consultation: DKA HPI Narrative: The patient is a 48-year-old female, with a history as outlined below, who presented with nausea, vomiting and abdominal discomfort. The patient has a known history of diabetes mellitus, hypothyroidism, sleep apnea on CPAP, questionable COPD/asthma and coronary artery disease status post PCI. On presentation to the emergency department, the patient was noted to be afebrile and hemodynamically stable. She was maintaining appropriate oxygen saturations on room air. Laboratory evaluation revealed a white blood cell count of 13,000. Chemistry profile was notable for a serum bicarbonate of 9 with an anion gap of 20 and normal creatinine. Glucose was elevated at 200. Liver function profile was within normal limits. Troponin was normal. Lipase was normal. Large serum acetone level was noted. CT abdomen/pelvis demonstrated nonobstructing bilateral nephrolithiasis. Chest x-ray demonstrated no acute cardiopulmonary process. The patient received supplemental IV fluid hydration and was initiated on a continuous insulin infusion for management of DKA. She was subsequently admitted to the medical intensive care unit for further management. [facility] Medical History (Updated 11/06/23 @ 11:44 by Eli Jacobs, MERLIN-C) Anxiety and depression Asthma Atherosclerotic heart disease of [place] coronary artery without angina pectoris Blood disorder CHF (congestive heart failure) Chronic obstructive pulmonary disease Chronic pain COVID-19 Diabetes mellitus, type II Essential hypertension GERD (gastroesophageal reflux disease) Heart attack Hypercholesterolemia Hypothyroidism Irregular heartbeat Morbid obesity with BMI of 50.0-59.9, adult Nicotine dependence Nonadherence to medication GEOVANI (obstructive sleep apnea) Sinus bradycardia by electrocardiogram Sleep-disordered breathing Smoker ST elevation myocardial infarction (STEMI) of inferior wall Home Medications albuterol sulfate 90 mcg/actuation aerosol inhaler 1 - 2 puff inhalation Q4H PRN PRN Wheezing ##1 10/15/15 [Rx Last Taken 10/19/20] budesonide-formoterol HFA 160 mcg-4.5 mcg/actuation aerosol inhaler 2 puff PO BID breathing 05/07/19 [History Last Taken 10/20/20] bupropion HCl 300 mg 24 hr tablet, extended release 300 mg PO DAILY MOOD 09/25/20 [History Last Taken 10/20/20] lorazepam 1 mg tablet 0.5 - 1 mg PO TID PRN Anxiety 04/24/21 [History Last Taken Unknown] ondansetron 4 mg disintegrating tablet 4 mg PO Q8H PRN nausea and vomiting #10 tabs 12/31/21 [Rx Last Taken Unknown] atorvastatin 80 mg tablet 80 mg PO QHS cholesterol #90 tabs 03/25/22 [Rx Last Taken Unknown] levothyroxine 200 mcg tablet 200 mcg PO DAILY 03/25/22 [History Last Taken Unknown] levothyroxine 75 mcg tablet 75 mcg PO DAILY 03/25/22 [History Last Taken Unknown] bupropion HCl 150 mg 24 hr tablet, extended release 150 mg PO DAILY 04/06/23 [History Last Taken Unknown] carvedilol 25 mg tablet 25 mg PO Q12H 04/06/23 [History Last Taken Unknown] levothyroxine 300 mcg tablet 300 mcg PO .thursday04/06/23 [History Last Taken Unknown] blood pressure monitor #1 ea 04/30/23 [Rx Last Taken Unknown] lisinopril 40 mg tablet 40 mg PO DAILY blood pressure #90 tabs 04/30/23 [Rx Last Taken Unknown] nitroglycerin 0.4 mg sublingual tablet 0.4 mg sublingual Q5-15M PRN chest pain #25 tabs 04/30/23 [Rx Last Taken Unknown] pantoprazole 40 mg tablet,delayed release 40 mg PO DAILY acid reflux #30 tabs 04/30/23 [Rx Last Taken Unknown] ticagrelor 90 mg tablet (Brilinta) See Rx Instructions .Route .COMPLEX #180 tabs 05/15/23 [Rx Last Taken Unknown] blood sugar diagnostic (OneTouch Verio test strips) 10/06/23 [History Last Taken Unknown] blood-glucose meter (OneTouch Verio Flex Meter) 10/06/23 [History Last Taken Unknown] flash glucose sensor (FreeStyle Konstantin 2 Sensor kit) 10/06/23 [History Last Taken Unknown] insulin syringe-needle U-100 0.5 mL 31 gauge x 5/16 (BD Insulin Syringe Ultra-Fine) 10/06/23 [History Last Taken Unknown] isosorbide mononitrate 60 mg tablet,extended release 24 hr 60 mg PO DAILY 10/06/23 [History Last Taken Unknown] lamotrigine 150 mg tablet 150 mg PO BID 10/06/23 [History Last Taken Unknown] lamotrigine 25 mg tablet 50 mg PO DAILY 10/06/23 [History Last Taken Unknown] lancets 33 gauge (Unilet Lancet) 10/06/23 [History Last Taken Unknown] ranolazine 500 mg tablet,extended release,12 hr 500 mg PO BID 10/06/23 [History Last Taken Unknown] insulin lispro 100 unit/mL subcutaneous pen (Humalog KwikPen (U-100) Insulin) See Protocol subcut ACHS #0 mL 10/09/23 [Rx Last Taken Unknown] oxycodone 5 mg tablet 5 mg PO Q4H PRN PRN Pain Score 6-10 #0 tabs 10/09/23 [Rx Last Taken Unknown] sennosides 8.6 mg tablet (senna) 8.6 mg PO BID #0 tabs 10/09/23 [Rx Last Taken Unknown] insulin glargine-yfgn 100 unit/mL (3 mL) subcutaneous pen 35 unit subcut QHS 11/05/23 [History Last Taken Unknown] insulin lispro 100 unit/mL subcutaneous pen (Humalog KwikPen (U-100) Insulin) 15 unit subcut TIDAC 11/05/23 [History Last Taken Unknown] Allergy/AdvReac Type Severity Reaction Status Date / Time metformin [From Glucophage] AdvReac Intermediate Diarrhea Verified 11/05/23 22:14 Family History Mother Cancer lung Father Hypertension COPD (chronic obstructive pulmonary disease) Daughter Factor V deficiency Grandmother Cancer lung COPD (chronic obstructive pulmonary disease) Surgical History H/O cardiac catheterization History of back surgery History of delivery History of cholecystectomy History of coronary artery stent placement (04/06/23) History of dilatation and curettage History of left heart catheterization (04/06/23) History of percutaneous transluminal coronary angioplasty (~10/20/20) History of tonsillectomy and adenoidectomy History of tubal ligation S/P tubal ligation Social History household members: none Smoking Status: Former smoker alcohol intake: current alcohol intake frequency: holidays/special occasions only substance use type: does not use caffeine: Yes ROS ROS Narrative 10 systems were reviewed with pertinent positives as noted in the HPI above. Physical Exam Const alert and no apparent distress Constitutional Narrative: Super morbidly obese. General Appearance: cooperative HEENT normocephalic and head/scalp atraumatic Eyes PERRL, EOMs intact bilaterally and conjunctivae normal Neck supple General: trachea midline Chest inspection of chest normal Resp normal respiratory effort Auscultation: Negative for rales, rhonchi or wheezes Cardio S1 normal heart sound and S2 normal heart sound Rate: tachycardic GI normal to inspection, nondistended, normoactive bowel sounds Extremity no clubbing, cyanosis or edema Skin no rashes or lesions noted Neuro moves all extremities and no focal motor deficits Psych Mood & Affect: flat affect Lab / Micro Data 11/06/23 04:17 11/06/23 11:40 Labs: Laboratory Results - last 24 hr 11/05/23 22:43: WBC 13.2 H, RBC 4.58, Hgb 14.7, Hct 44.4, MCV 96.9, MCH 32.1 H, MCHC 33.1, RDW Std Deviation 48.1 H, RDW Coeff of Whitney 13.6, Plt Count 310, MPV 11.0, Immature Gran % (Auto) 0.500, Neut % (Auto) 68.5, Lymph % (Auto) 22.0, [place] % (Auto) 6.4, Eos % (Auto) 1.9, Baso % (Auto) 0.7, Absolute Neuts (auto) 9.0 H, Absolute Lymphs (auto) 2.91, Nucleated RBC % 0, Sodium 136, Potassium 4.3, Chloride 107, Carbon Dioxide 9.0 L*, Anion Gap 20 H, BUN 15, Creatinine 0.91, Estim Creat Clear Calc 99.66, Est GFR (MDRD) Af Amer 85, Est GFR (MDRD) Non-Af 70, BUN/Creatinine Ratio 16.6, Glucose 200 H, Calcium 9.3, Total Bilirubin 0.90, Direct Bilirubin 0.26, AST 21, ALT 19, Alkaline Phosphatase 99, Troponin I High Sens 6, Total Protein 8.1, Albumin 4.1, Globulin 4.0, Lipase < 10 L 11/06/23 01:20: Phosphorus 3.0, Magnesium 1.9, Troponin I High Sens 6 11/06/23 02:23: POC Glucose 205 H 11/06/23 02:36: Urine Color Yellow, Urine Clarity Clear, Urine pH 5.0, Ur Specific [place] 1.020, Urine Protein 15 H, Urine Glucose (UA) 1000 H, Urine Ketones 150 A*, Urine Occult Blood Negative, Urine Nitrite Negative, Urine Bilirubin Negative, Urine Urobilinogen Normal, Ur Leukocyte Esterase Negative, Urine RBC 0 SEEN, Urine WBC 0 SEEN, Ur Squamous Epith Cells 0 SEEN, Urine Bacteria 0 SEEN, Urine Mucus 0 SEEN 11/06/23 03:40: POC Glucose 153 H 11/06/23 04:17: WBC 13.9 H, RBC 4.43, Hgb 14.5, Hct 45.4, MCV 102.5 H D, MCH 32.7 H, MCHC 31.9 L, RDW Std Deviation 51.0 H, RDW Coeff of Whitney 13.6, Plt Count 317, MPV 10.9, Immature Gran % (Auto) 0.700, Neut % (Auto) 83.6 H, Lymph % (Auto) 12.1 L, [place] % (Auto) 3.2, Eos % (Auto) 0.0, Baso % (Auto) 0.4, Absolute Neuts (auto) 11.6 H, Absolute Lymphs (auto) 1.68, Nucleated RBC % 0, Sodium 138, Potassium 3.9, Chloride 114 H, Carbon Dioxide 7.0 L*, Anion Gap 17 H, BUN 16, Creatinine 0.95, Estim Creat Clear Calc 95.47, Est GFR (MDRD) Af Amer 80, Est GFR (MDRD) Non-Af 66, BUN/Creatinine Ratio 16.8, Glucose 143 H, Hemoglobin A1c 7.2 H, Serum Osmolality 314 H, Calcium 8.7, Total Bilirubin 0.70, Direct Bilirubin 0.24, AST 34, ALT 25, Alkaline Phosphatase 105, Troponin I High Sens 8, Total Protein 7.8, Albumin 3.8, Globulin 4.0, Acetone Level LARGE H 11/06/23 04:44: POC Glucose 105 11/06/23 05:39: POC Glucose 95 11/06/23 06:38: POC Glucose 83 11/06/23 07:40: Sodium Cancelled, Potassium Cancelled, Chloride Cancelled, Carbon Dioxide Cancelled, Anion Gap Cancelled, BUN Cancelled, Creatinine Cancelled, Estim Creat Clear Calc Cancelled, Est GFR (MDRD) Af Amer Cancelled, Est GFR (MDRD) Non-Af Cancelled, BUN/Creatinine Ratio Cancelled, Glucose Cancelled, Calcium Cancelled 11/06/23 08:15: Sodium 142, Potassium 3.8, Chloride 111 H, Carbon Dioxide 12.0 L, Anion Gap 19 H, BUN 14, Creatinine 0.96, Estim Creat Clear Calc 94.47, Est GFR (MDRD) Af Amer 79, Est GFR (MDRD) Non-Af 65, BUN/Creatinine Ratio 14.5, Glucose 65 L, Calcium 8.9 11/06/23 08:47: POC Glucose 75 11/06/23 09:38: POC Glucose 103 11/06/23 10:31: POC Glucose 149 H 11/06/23 11:40: Sodium 141, Potassium 3.8, Chloride 112 H, Carbon Dioxide 10.0 L, Anion Gap 19 H, BUN 12, Creatinine 0.88, Estim Creat Clear Calc 103.06, Est GFR (MDRD) Af Amer 87, Est GFR (MDRD) Non-Af 72, BUN/Creatinine Ratio 13.6, Glucose 152 H, Calcium 8.6 ABG Data ABG results: ABG 11/06/23 00:34 Specimen Type COLLIN Sample Site Not entered VBG pH 7.15 L* VBG pO2 63 H VBG HCO3 9 L VBG Total CO2 10 L VBG O2 Sat (Calc) 85 H VBG Base Excess -20 L POC Mix VBG pCO2 Pt Tmp 25.3 L O2 Delivery Device Room Air Crit Call To/Read Back Yes Blood Gas Notified Whom andes Blood Gas Notified Time 00:36:31 Imaging Radiology Impression Abdomen/Pelvis CT 11/05/23 22:56 IMPRESSION: No acute findings in the abdomen or pelvis. Nonobstructing bilateral nephrolithiasis. Electronically Signed: Leo Márquez MD at 0:33 EDT , Chest X-Ray 11/05/23 23:58 IMPRESSION: No radiographic evidence of acute cardiopulmonary disease. Electronically Signed: Leo Márquez MD at 0:34 EDT , Charges/Coding Visit Charges Inpatient E&M: 37151 Init Hosp L3
[2023-11-06] MEDS: Lactated Ringers 1,000 ML 999 ML IV ×2 (13:05→14:00)
[2023-11-06 13:30] LABS: Bedside Glucose 123 mg/dL (74-106)
--- NOTE | 2023-11-06 13:32 | PN_ITS ---
Subjective Subjective Patient seen and examined. She was admitted for intractable nausea and vomiting and found to be in DKA. She is on Jardiance. She still complains of nausea and vomiting. She denies any chest pain, palpitations, dizziness but generally feels unwell. Review of systems otherwise negative. Objective Data Objective Data Vital Signs: Vital Signs Temp Pulse Resp BP Pulse Ox O2 Del Method 97.1 F L 122 H 20 H 159/90 H 99 Room Air 11/06/23 08:00 11/06/23 10:00 11/06/23 10:00 11/06/23 10:00 11/06/23 10:00 11/06/23 10:00 Oxygen Delivery Method Room Air Weight: 281 lb 15.539 oz Body Mass Index (BMI) 46.9 Intake & Output: Intake and Output for Last 24 Hours 11/04/23 11/05/23 11/06/23 23:59 23:59 23:59 Intake Total 2311.95 / 2311.95 Output Total 650 / 650 Balance 1661.95 / 1661.95 Lab / Micro Data 11/06/23 04:17 11/06/23 11:40 Labs: Laboratory Results - last 24 hr 11/05/23 22:43: WBC 13.2 H, RBC 4.58, Hgb 14.7, Hct 44.4, MCV 96.9, MCH 32.1 H, MCHC 33.1, RDW Std Deviation 48.1 H, RDW Coeff of Whitney 13.6, Plt Count 310, MPV 11.0, Immature Gran % (Auto) 0.500, Neut % (Auto) 68.5, Lymph % (Auto) 22.0, [place] % (Auto) 6.4, Eos % (Auto) 1.9, Baso % (Auto) 0.7, Absolute Neuts (auto) 9.0 H, Absolute Lymphs (auto) 2.91, Nucleated RBC % 0, Sodium 136, Potassium 4.3, Chloride 107, Carbon Dioxide 9.0 L*, Anion Gap 20 H, BUN 15, Creatinine 0.91, Estim Creat Clear Calc 99.66, Est GFR (MDRD) Af Amer 85, Est GFR (MDRD) Non-Af 70, BUN/Creatinine Ratio 16.6, Glucose 200 H, Calcium 9.3, Total Bilirubin 0.90, Direct Bilirubin 0.26, AST 21, ALT 19, Alkaline Phosphatase 99, Troponin I High Sens 6, Total Protein 8.1, Albumin 4.1, Globulin 4.0, Lipase < 10 L 11/06/23 01:20: Phosphorus 3.0, Magnesium 1.9, Troponin I High Sens 6 11/06/23 02:23: POC Glucose 205 H 11/06/23 02:36: Urine Color Yellow, Urine Clarity Clear, Urine pH 5.0, Ur Specific [place] 1.020, Urine Protein 15 H, Urine Glucose (UA) 1000 H, Urine Ketones 150 A*, Urine Occult Blood Negative, Urine Nitrite Negative, Urine Bilirubin Negative, Urine Urobilinogen Normal, Ur Leukocyte Esterase Negative, Urine RBC 0 SEEN, Urine WBC 0 SEEN, Ur Squamous Epith Cells 0 SEEN, Urine Bacteria 0 SEEN, Urine Mucus 0 SEEN 11/06/23 03:40: POC Glucose 153 H 11/06/23 04:17: WBC 13.9 H, RBC 4.43, Hgb 14.5, Hct 45.4, MCV 102.5 H D, MCH 32.7 H, MCHC 31.9 L, RDW Std Deviation 51.0 H, RDW Coeff of Whitney 13.6, Plt Count 317, MPV 10.9, Immature Gran % (Auto) 0.700, Neut % (Auto) 83.6 H, Lymph % (Auto) 12.1 L, [place] % (Auto) 3.2, Eos % (Auto) 0.0, Baso % (Auto) 0.4, Absolute Neuts (auto) 11.6 H, Absolute Lymphs (auto) 1.68, Nucleated RBC % 0, Sodium 138, Potassium 3.9, Chloride 114 H, Carbon Dioxide 7.0 L*, Anion Gap 17 H, BUN 16, Creatinine 0.95, Estim Creat Clear Calc 95.47, Est GFR (MDRD) Af Amer 80, Est GFR (MDRD) Non-Af 66, BUN/Creatinine Ratio 16.8, Glucose 143 H, Hemoglobin A1c 7.2 H, Serum Osmolality 314 H, Calcium 8.7, Total Bilirubin 0.70, Direct Biliru bin 0.24, AST 34, ALT 25, Alkaline Phosphatase 105, Troponin I High Sens 8, Total Protein 7.8, Albumin 3.8, Globulin 4.0, Acetone Level LARGE H 11/06/23 04:44: POC Glucose 105 11/06/23 05:39: POC Glucose 95 11/06/23 06:38: POC Glucose 83 11/06/23 07:40: Sodium Cancelled, Potassium Cancelled, Chloride Cancelled, Carbon Dioxide Cancelled, Anion Gap Cancelled, BUN Cancelled, Creatinine Cancelled, Estim Creat Clear Calc Cancelled, Est GFR (MDRD) Af Amer Cancelled, Est GFR (MDRD) Non-Af Cancelled, BUN/Creatinine Ratio Cancelled, Glucose Cancelled, Calcium Cancelled 11/06/23 08:15: Sodium 142, Potassium 3.8, Chloride 111 H, Carbon Dioxide 12.0 L , Anion Gap 19 H, BUN 14, Creatinine 0.96, Estim Creat Clear Calc 94.47, Est GFR (MDRD) Af Amer 79, Est GFR (MDRD) Non-Af 65, BUN/Creatinine Ratio 14.5, Glucose 65 L, Calcium 8.9 11/06/23 08:47: POC Glucose 75 11/06/23 09:38: POC Glucose 103 11/06/23 10:31: POC Glucose 149 H 11/06/23 11:40: Sodium 141, Potassium 3.8, Chloride 112 H, Carbon Dioxide 10.0 L , Anion Gap 19 H, BUN 12, Creatinine 0.88, Estim Creat Clear Calc 103.06, Est GFR (MDRD) Af Amer 87, Est GFR (MDRD) Non-Af 72, BUN/Creatinine Ratio 13.6, Glucose 152 H, Calcium 8.6 11/06/23 12:27: POC Glucose 123 H ABG Data ABG results: ABG 11/06/23 00:34 Specimen Type COLLIN Sample Site Not entered VBG pH 7.15 L* VBG pO2 63 H VBG HCO3 9 L VBG Total CO2 10 L VBG O2 Sat (Calc) 85 H VBG Base Excess -20 L POC Mix VBG pCO2 Pt Tmp 25.3 L O2 Delivery Device Room Air Crit Call To/Read Back Yes Blood Gas Notified Whom andes Blood Gas Notified Time 00:36:31 Radiography Diagnostic Testing: Radiology Impression Abdomen/Pelvis CT 11/05/23 22:56 IMPRESSION: No acute findings in the abdomen or pelvis. Nonobstructing bilateral nephrolithiasis. Electronically Signed: Leo Márquez MD at 0:33 EDT , Chest X-Ray 11/05/23 23:58 IMPRESSION: No radiographic evidence of acute cardiopulmonary disease. Electronically Signed: Leo Márquez MD at 0:34 EDT , Physical Exam Const alert and oriented x3 Constitutional Narrative: obese, looks weak General Appearance: cooperative HEENT normocephalic and head/scalp atraumatic Mouth: dry mucous membranes Eyes PERRL and EOMs intact bilaterally Neck no lymphadenopathy, supple and no JVD Lymph Lymphatic: no lymphadenopathy noted and no lymphedema noted Resp normal respiratory effort, normal air movement and clear to auscultation bilaterally Cardio regular rate, regular rhythm, S1 normal heart sound, S2 normal heart sound and no murmurs GI normal to inspection, nondistended, normoactive bowel sounds, soft to palpation, non-tender and non-distended Extremity normal capillary refill, no clubbing, cyanosis or edema and no calf tenderness General Extremity: no tenderness to palpation of joints or extremities Skin General Skin Exam: no breakdown Neuro CN's II-XII intact bilaterally, no focal motor deficits, no sensory deficits noted and deep tendon reflexes 2+ bilaterally Motor Exam: strength 5/5 throughout and general weakness Psych thought process normal and cooperative Appearance: appropriate Mood & Affect: flat affect Assessment & Plan Assessment/Plan (1) DKA (diabetic ketoacidosis): QUALIFIERS: Diabetes mellitus type: type 2 Diabetes mellitus complication detail: without coma Qualified Code(s): E11.10 - Type 2 diabetes mellitus with ketoacidosis without coma (2) Intractable nausea and vomiting: PLAN: Plan #DKA * Patient was admitted with intractable nausea and vomiting and was found to be in DKA. * on insulin drip. * bicarb this morning was 12, on repeat had come down to 10. Anion gap remains elevated at 19 * patient became hypoglycemic today, with blood sugar going down to 74. * Critical care consulted because patient's DKA is intractable. * Patient placed on D10 infusion as well due to the hypoglycemia but insulin drip continued in light of her persistent DKA * Continue aggressive hydration with fluid. A1c requested. * Replace electrolytes as per DKA protocol. * Monitor BMP every 4 hourly * A1c ordered #Intractable nausea and vomiting: Likely due to DKA. On IV Compazine and Zofran. #CAD * On aspirin and Brilinta, Ranexa, Coreg, lisinopril and Imdur. Has an extensive history of CAD and had cardiac cath on 06/12/2023 with significant disease being found. She was transferred to [facility] and had PCI attempt previous PCI region. She was discharged. She came back to [facility] and was transferred to [facility] on 10/09/2023 and patient states that she is supposed to go back for repeat cardiac cath in about a week. * Currently not having any chest pain. #Hypothyroidism: On Synthroid #Anxiety and depression: On bupropion and Ativan as well as lamotrigine. #Hyperlipidemia: On statin #COPD and asthma: Not in exacerbation. Breathing treatments bronchodilators. #Morbid obesity:BMI is 46.9. Complicates acute care, expected recovery and prognosis. #GED: on PPI. #GEOVANI: on CPAP qhs. DVT prophylaxis: lovenox Charges/Coding Visit Charges Inpatient E&M: 57709 [facility] Hosp L3
[2023-11-06] MEDS: hydrALAZINE 20 MG/ML Vial 10 MG IV ×2 (14:03→17:55)
[2023-11-06 14:28] LABS: Bedside Glucose 150 mg/dL (74-106)
[2023-11-06] MEDS: Dext 5%-0.45% NS 1,000 ML 250 ML IV ×3 (15:07→23:07)
[2023-11-06 15:22] LABS: Bedside Glucose 64 mg/dL (74-106)
[2023-11-06 16:02] LABS: Anion Gap 12 (5-15); BUN 9 mg/dL (7-18); BUN/Creat Ratio 10.5 RATIO (10-20); Calcium,Total 8.3 mg/dL (8.5-10.1); Chloride 115 mmol/L (98-107); Creatinine, Serum 0.86 mg/dL (0.55-1.02); EST Glomerular Filtration Rate 74 mL/min (>60); Est Glom Filt Rate - Afr Amer 90 mL/min (>60); Estimated Creatinine Clearance 105.46 ml/min; Glucose 84 mg/dL (74-106); Potassium 3.4 mmol/L (3.5-5.1); Sodium Level 143 mmol/L (136-145)
[2023-11-06 16:42] LABS: Bedside Glucose 82 mg/dL (74-106)
[2023-11-06 16:42] LABS: Bedside Glucose 93 mg/dL (74-106)
[2023-11-06 16:42] LABS: Bedside Glucose 104 mg/dL (74-106)
[2023-11-06 17:49] LABS: Bedside Glucose 94 mg/dL (74-106)
[2023-11-06] MEDS: Potassium Chloride 20mEq/100mL 20 MEQ/100 ML IV.SOLN. 100 MEQ IV BOLUS ×4 (17:54→23:22)
[2023-11-06 18:56] LABS: Bedside Glucose 91 mg/dL (74-106)
[2023-11-06 20:29] LABS: Bedside Glucose 88 mg/dL (74-106)
[2023-11-06] MEDS: Dextrose 50%-Water 25 GM/50 ML DISP.SYRIN IV ×2 (20:34→21:10)
[2023-11-06 20:36] LABS: Bedside Glucose 70 mg/dL (74-106)
[2023-11-06 21:07] LABS: Anion Gap 8 (5-15); BUN 7 mg/dL (7-18); BUN/Creat Ratio 8.8 RATIO (10-20); Calcium,Total 8.3 mg/dL (8.5-10.1); Chloride 115 mmol/L (98-107); EST Glomerular Filtration Rate 81 mL/min (>60); Est Glom Filt Rate - Afr Amer 98 mL/min (>60); Estimated Creatinine Clearance 113.37 ml/min; Glucose 110 mg/dL (74-106); Potassium 3.4 mmol/L (3.5-5.1); Sodium Level 143 mmol/L (136-145)
[2023-11-06 21:22] LABS: Bedside Glucose 64 mg/dL (74-106)
[2023-11-06 21:49] LABS: Bedside Glucose 155 mg/dL (74-106)
--- NOTE | 2023-11-06 22:00 | PCM.HOSP.N ---
Hospitalist Note AG closed x 2, bicarb acceptable level, will transition to ADA diet, add accu checks with ISS, restart home longacting and regimen short-acting TIDAC.
[2023-11-06] MEDS: Insulin Glargine-YFGN 100 UNIT/ML Pen 35 UNIT SC (23:22)
[2023-11-06] MEDS: oxyCODONE 5 MG Tablet PO (23:27)
[2023-11-06] MEDS: LORazepam 1 MG Tablet PO (23:27)
[2023-11-06 23:38] LABS: Bedside Glucose 101 mg/dL (74-106)
[2023-11-07] VITALS (17 sets, daily range): BP systolic 102–197; BP diastolic 59–137; PULSE 101–142; RESP 12–22; TEMP 36.2–37; O2SAT 96–100; BMI 47.0
[2023-11-07] MEDS: Pantoprazole Sodium 40 MG in 0.9% Normal Saline (100mL MB+) 100 ML 330 MG IV ×3 (00:14→22:48)
[2023-11-07] MEDS: 0.9% Saline Lock 10 ML Syringe IV ×2 (04:49→16:47)
[2023-11-07 04:53] LABS: Absolute Lymphocyte Count 4.06 X10^3/uL (0.83-4.51); Basophil# 0.04 X10^3/uL; Basophil% 0.3 % (0-1); Eosinophil# 0.01 X10^3/uL; Eosinophils% 0.1 % (0-5); Hematocrit 39.7 % (37-47); Hemoglobin 13.5 g/dL (12.0-15.0); Lymphocyte # 4.06 X10^3/ul (0.83-4.51); Mean Corpuscular Hgb 32.3 pg (27.0-32.0); Mean Platelet Vol. 10.4 fl (6.2-12.0); Monocyte# 1.36 X10^3/uL; NRBC Flagged by Analyzer 0 % (0-5); Neutrophil # 7.99 X10^3/uL (2.7-7.7); Neutrophil % 58.9 % (47-70); Platelet Count 268 K/mm3 (150-450); RBC Distribution Width CV 13.7 % (11.6-14.6); RBC Distribution Width SD 47.5 fl (35.1-43.9); Red Blood Count 4.18 M/mm3 (4.2-5.4); White Blood Count 13.6 K/mm3 (4.4-11.0)
[2023-11-07] MEDS: LORazepam 1 MG Tablet PO ×2 (05:09→12:18)
[2023-11-07] MEDS: Levothyroxine 100 MCG Tablet 200 MCG PO (05:09)
[2023-11-07] MEDS: Levothyroxine 75 MCG Tablet PO (05:13)
[2023-11-07 05:14] LABS: Anion Gap 11 (5-15); BUN 6 mg/dL (7-18); BUN/Creat Ratio 8.5 RATIO (10-20); Calcium,Total 8.5 mg/dL (8.5-10.1); Chloride 113 mmol/L (98-107); EST Glomerular Filtration Rate 93 mL/min (>60); Est Glom Filt Rate - Afr Amer 113 mL/min (>60); Estimated Creatinine Clearance 129.56 ml/min; Glucose 214 mg/dL (74-106); Potassium 3.9 mmol/L (3.5-5.1); Sodium Level 141 mmol/L (136-145)
[2023-11-07] MEDS: Ondansetron 4 MG/2 ML Vial IV ×2 (06:38→12:18)
[2023-11-07 08:22] LABS: Bedside Glucose 223 mg/dL (74-106)
[2023-11-07] MEDS: proCHLORPERazine 10 MG/2 ML Vial 5 MG IV ×3 (09:07→22:31)
--- NOTE | 2023-11-07 09:07 | PN_ITS ---
Subjective Subjective Patient seen and examined. She still complains of nausea.. Nurse, patient stuck her fingers down her throat yesterday to make yourself vomit. Her blood pressure was markedly elevated in the 190s systolic today and she is also tachycardic with heart rate. Well Antonio. She has not received BP meds. Anion gap is 11 and bicarb 17 today. Review of systems otherwise negative. Objective Data Objective Data Vital Signs: Vital Signs Temp Pulse Resp BP Pulse Ox O2 Del Method 98.6 F 115 H 12 197/105 H 98 Room Air 11/07/23 07:00 11/07/23 07:00 11/07/23 07:00 11/07/23 07:00 11/07/23 07:00 11/07/23 07:00 Oxygen Delivery Method Room Air Weight: 282 lb 6.594 oz Body Mass Index (BMI) 47.0 Intake & Output: Intake and Output for Last 24 Hours 11/05/23 11/06/23 11/07/23 23:59 23:59 23:59 Intake Total 7721.52 / 7721.52 733.33 / 733.33 Output Total 1275 / 1275 1350 / 1350 Balance 6446.52 / 6446.52 -616.67 / -616.67 Lab / Micro Data 11/07/23 04:41 11/07/23 04:41 Labs: Laboratory Results - last 24 hr 11/06/23 07:48: POC Glucose 64 L 11/06/23 09:38: POC Glucose 103 11/06/23 10:31: POC Glucose 149 H 11/06/23 11:40: Sodium 141, Potassium 3.8, Chloride 112 H, Carbon Dioxide 10.0 L , Anion Gap 19 H, BUN 12, Creatinine 0.88, Estim Creat Clear Calc 103.06, Est GF R (MDRD) Af Amer 87, Est GFR (MDRD) Non-Af 72, BUN/Creatinine Ratio 13.6, Glucose 152 H, Calcium 8.6 11/06/23 11:46: POC Glucose 150 H 11/06/23 12:27: POC Glucose 123 H 11/06/23 13:28: POC Glucose 104 11/06/23 14:35: POC Glucose 82 11/06/23 15:26: POC Glucose 93 11/06/23 15:27: Sodium 143, Potassium 3.4 L, Chloride 115 H, Carbon Dioxide 16.0 L, Anion Gap 12, BUN 9, Creatinine 0.86, Estim Creat Clear Calc 105.46, Est GFR (MDRD) Af Amer 90, Est GFR (MDRD) Non-Af 74, BUN/Creatinine Ratio 10.5, Glucose 84, Calcium 8.3 L 11/06/23 16:24: POC Glucose 94 11/06/23 17:31: POC Glucose 88 11/06/23 18:32: POC Glucose 91 11/06/23 19:46: Sodium Cancelled, Potassium Cancelled, Chloride Cancelled, Carbon Dioxide Cancelled, Anion Gap Cancelled, BUN Cancelled, Creatinine Cancelled, Estim Creat Clear Calc Cancelled, Est GFR (MDRD) Af Amer Cancelled, Est GFR (MDRD) Non-Af Cancelled, BUN/Creatinine Ratio Cancelled, Glucose Cancelled, Calcium Cancelled 11/06/23 20:16: POC Glucose 70 L 11/06/23 20:43: Sodium 143, Potassium 3.4 L, Chloride 115 H, Carbon Dioxide 20.0 L, Anion Gap 8, BUN 7, Creatinine 0.80, Estim Creat Clear Calc 113.37, Est GFR (MDRD) Af Amer 98, Est GFR (MDRD) Non-Af 81, BUN/Creatinine Ratio 8.8 L, Glucose 110 H, Calcium 8.3 L 11/06/23 21:04: POC Glucose 64 L 11/06/23 21:31: POC Glucose 155 H 11/06/23 23:20: POC Glucose 101 11/07/23 04:41: WBC 13.6 H, RBC 4.18 L, Hgb 13.5, Hct 39.7, MCV 95.0 D, MCH 32.3 H, MCHC 34.0 D, RDW Std Deviation 47.5 H, RDW Coeff of Whitney 13.7, Plt Count 268, MPV 10.4, Immature Gran % (Auto) 0.700, Neut % (Auto) 58.9, Lymph % (Auto) 30.0, [place] % (Auto) 10.0, Eos % (Auto) 0.1, Baso % (Auto) 0.3, Absolute Neuts (auto) 8.0 H, Absolute Lymphs (auto) 4.06, Nucleated RBC % 0, Sodium 141, Potassium 3.9, Chloride 113 H, Carbon Dioxide 17.0 L, Anion Gap 11, BUN 6 L, Creatinine 0.70, Estim Creat Clear Calc 129.56, Est GFR (MDRD) Af Amer 113, Est GFR (MDRD) Non-Af 93, BUN/Creatinine Ratio 8.5 L, Glucose 214 H, Calcium 8.5 11/07/23 08:04: POC Glucose 223 H Physical Exam Const alert and oriented x3 Constitutional Narrative: obese, looks uncomfortable General Appearance: cooperative HEENT normocephalic and head/scalp atraumatic Eyes PERRL and EOMs intact bilaterally Neck no lymphadenopathy, supple and no JVD Lymph Lymphatic: no lymphadenopathy noted and no lymphedema noted Resp normal respiratory effort, normal air movement and clear to auscultation bilaterally Cardio regular rate, regular rhythm, S1 normal heart sound, S2 normal heart sound and no murmurs GI normal to inspection, nondistended, normoactive bowel sounds, soft to palpation, non-tender and non-distended Extremity normal capillary refill, no clubbing, cyanosis or edema and no calf tenderness General Extremity: no tenderness to palpation of joints or extremities Skin General Skin Exam: no breakdown Neuro CN's II-XII intact bilaterally, no focal motor deficits, no sensory deficits noted and deep tendon reflexes 2+ bilaterally Motor Exam: strength 5/5 throughout and general weakness Psych thought process normal and cooperative Appearance: appropriate Mood & Affect: flat affect Assessment & Plan Assessment/Plan (1) DKA (diabetic ketoacidosis): QUALIFIERS: Diabetes mellitus type: type 2 Diabetes mellitus complication detail: without coma Qualified Code(s): E11.10 - Type 2 diabetes mellitus with ketoacidosis without coma (2) Intractable nausea and vomiting: PLAN: Plan #DKA * Patient was admitted with intractable nausea and vomiting and was found to be in DKA. * anion gap closed x 2 overnight, so patient now off insulin drip * on lantus 35 units qhs and ISS. * bicarb is 17 today. anion gap is 11 * patient complaining of nausea. on iV compazine and zofran * will place on clear liquid diet, to advance as tolerated * A1c: #Intractable nausea and vomiting: Likely due to DKA. On IV Compazine and Zofran. #CAD * On aspirin and Brilinta, Ranexa, Coreg, lisinopril and Imdur. Has an extensive history of CAD and had cardiac cath on 06/12/2023 with significant di sease being found. She was transferred to [facility] [place] [facility] and had PCI attempt previous PCI region. She was discharged. She came back to [facility] and was transferred to [facility] on 10/09/2023 and patient states that she is supposed to go back for repeat cardiac cath in about a week. * Currently not having any chest pain. * #Hypertension: BP is poorly controlled as she has not been taking her meds in the hospital due to nausea. IV hydralazine prn. Continue PO carvedilol and lisinopril.IV hydralazine prn #Hypothyroidism: On Synthroid #Anxiety and depression: On bupropion and Ativan as well as lamotrigine. #Hyperlipidemia: On statin #COPD and asthma: Not in exacerbation. Breathing treatments bronchodilators. #Morbid obesity:BMI is 46.9. Complicates acute care, expected recovery and prognosis. #GED: on PPI. #GEOVANI: on CPAP qhs. DVT prophylaxis: lovenox Charges/Coding Visit Charges Inpatient E&M: 56720 Subs Hosp L2
[2023-11-07] MEDS: Insulin Lispro 100 UNIT/ML INSULN.PEN SC ×4 (09:27→22:29)
[2023-11-07] MEDS: Enoxaparin 40 MG/0.4 ML Syringe SC ×2 (09:29→22:31)
[2023-11-07] MEDS: Isosorbide Mononitrate 60 MG Tablet PO (09:29)
[2023-11-07] MEDS: Aspirin 81 MG TAB.CHEW PO (09:29)
[2023-11-07] MEDS: Lisinopril 40 MG Tablet PO (09:29)
[2023-11-07] MEDS: Carvedilol 25 MG Tablet PO ×2 (09:30→16:48)
[2023-11-07] MEDS: TICAGRELOR 90 MG TABLET PO ×2 (09:30→22:29)
[2023-11-07] MEDS: oxyCODONE 5 MG Tablet PO ×3 (12:28→22:32)
[2023-11-07 12:33] LABS: Bedside Glucose 247 mg/dL (74-106)
--- NOTE | 2023-11-07 13:03 | PCM.PN.TICU ---
Objective Data Objective Data Vital Signs: Vital Signs Last response Temperature 36.7 C 11/07/23 12:29 Temperature Source Temporal 11/07/23 12:29 Pulse Rate 114 H 11/07/23 12:29 Pulse Strength Normal (2+) 11/07/23 10:00 Respiratory Rate 18 11/07/23 12:29 Respiratory Effort Normal, Non-Labored 11/07/23 06:00 Respiratory Depth Normal 11/07/23 06:00 Respiratory Pattern Normal 11/07/23 06:00 Blood Pressure 136/105 H 11/07/23 12:29 Blood Pressure Mean 115 11/07/23 12:29 Blood Pressure Source Monitor 11/07/23 12:29 Blood Pressure Position Sitting 11/07/23 12:29 Blood Pressure Location Left Forearm 11/07/23 12:29 Pulse Ox 100 11/07/23 12:29 Oxygen Delivery Method Room Air 11/07/23 12:29 I&O: I&O Last 24 Hours 11/06/23 11/07/23 11/07/23 23:59 11:59 23:59 Intake Total 5602.61 / 7721.52 843.33 / 843.33 0 / 843.33 Output Total 625 / 1275 1350 / 1350 Balance 4977.61 / 6446.52 -506.67 / -506.67 0 / -506.67 I&O: Total Stay 11/05/23 22:13 thru 11/07/23 12:14 Intake Total 8564.85 Output Total 2625 Balance 5939.85 Current Meds Ordered / Administered: Current meds ordered / Administered Generic Name Dose Route Start Last Admin Trade Name Freq PRN Reason Stop Dose Admin Acetaminophen 650 mg 11/06/23 03:34 Acetaminophen 325 Mg Tablet PO Q4H PRN PRN Fever, pain 1-10/10 Al Hydroxide/Mg Hydroxide 30 ml 11/06/23 03:34 Mag Hydrox/Al Hydrox/Simeth 30 Ml Udc PO Q6H PRN PRN Gastric Burning Albuterol Sulfate 2.5 mg 11/06/23 03:34 Albuterol 2.5 Mg/3 Ml Vial.Neb. INHALATION Q2H PRN PRN Dyspnea, wheezing Aspirin 81 mg 11/06/23 08:00 11/07/23 09:29 Aspirin 81 Mg Tab.Chew PO 81 mg BREAKFAST LUIS Administration Atorvastatin Calcium 80 mg 11/06/23 22:00 11/06/23 23:27 Atorvastatin Calcium 80 Mg Tablet PO Not Given QHS LUIS Budesonide 0.5 mg 11/06/23 03:34 Budesonide Respules 0.5 Mg/2 Ml Ampul.Neb. INHALATION BID.RT LUIS Bupropion HCl 150 mg 11/06/23 10:00 11/07/23 09:31 Bupropion (Xl) 150 Mg Tablet.Xl PO Not Given DAILY LUIS Bupropion HCl 300 mg 11/06/23 10:00 11/07/23 09:31 Bupropion (Xl) 300 Mg Tablet.Xl PO Not Given DAILY LUIS Carvedilol 25 mg 11/06/23 08:00 11/07/23 09:30 Carvedilol 25 Mg Tablet PO 25 mg BIDCM LUIS Administration Protocol Dextrose 0 gm 11/06/23 03:34 11/06/23 21:10 Dextrose 50%-Water 25 Gm/50 Ml Disp.Syrin IV 12.5 gm X1 PRN Administration Hypoglycemia Protocol Dextrose 0 gm 11/06/23 21:59 Dextrose 50%-Water 25 Gm/50 Ml Disp.Syrin IV X1 PRN Hypoglycemia Protocol Enoxaparin Sodium 40 mg 11/06/23 10:00 11/07/23 09:29 Enoxaparin 40 Mg/0.4 Ml Syringe SC 40 mg BID LUIS Administration Glucagon 1 mg 11/06/23 21:59 Glucagon 1 Mg/Ml Syringe IM X1 PRN Hypoglycemia Guaifenesin 10 ml 11/06/23 03:34 Guaifenesin 10 Ml Udc (200mg/10ml) PO Q4H PRN PRN COUGH Hydralazine HCl 10 mg 11/06/23 03:34 11/06/23 17:55 Hydralazine 20 Mg/Ml Vial IV 10 mg Q4H PRN PRN Administration SBP > 160 Protocol Pantoprazole Sodium 40 mg/ 110 mls @ 330 mls/hr 11/06/23 03:34 11/07/23 10:05 Sodium Chloride IV Infused Q12 LUIS Infusion Dextrose/Sodium Chloride 1,000 mls @ 250 mls/hr 11/06/23 03:45 11/07/23 12:14 IV Infused .Q4H LUIS Infusion Sodium Chloride 250 mls @ 15 mls/hr 05/03/24 03:48 IV .[id number] PRN Additional IVPB Infusion Sodium Chloride 250 mls @ 15 mls/hr 11/06/23 03:48 IV .[id number] PRN Saline Flush Insulin Glargine 35 unit 11/06/23 22:00 11/06/23 23:22 Insulin Glargine-Yfgn 100 Unit/Ml Pen SC 35 unit QHS LUIS Administration Insulin Human Lispro 15 unit 11/07/23 07:00 11/07/23 08:34 Insulin Lispro 100 Unit/Ml Insuln.Pen SC Not Given TIDAC [facility] Insulin Human Lispro 0 unit 11/06/23 22:00 11/07/23 12:15 Insulin Lispro 100 Unit/Ml Insuln.Pen SC 3 u ACHS [facility] Administration Protocol Isosorbide Mononitrate 60 mg 11/06/23 10:00 11/07/23 09:29 Isosorbide Mononitrate 60 Mg Tablet PO 60 mg DAILY [facility] Administration Protocol Lamotrigine 150 mg 11/06/23 10:00 11/07/23 09:31 Lamotrigine 150 Mg Tablet PO Not Given BID [facility] Lamotrigine 50 mg 11/06/23 10:00 11/07/23 09:31 Lamotrigine 25 Mg Tablet PO Not Given DAILY [facility] Levothyroxine Sodium 300 mcg 11/08/23 06:00 Levothyroxine 100 Mcg Tablet PO [email or web address] [facility] Levothyroxine Sodium 200 mcg 11/06/23 06:00 11/07/23 05:09 Levothyroxine 100 Mcg Tablet PO 200 mcg [email or web address] [facility] Administration Levothyroxine Sodium 75 mcg 11/06/23 06:00 11/07/23 05:13 Levothyroxine 75 Mcg Tablet PO 75 mcg [email or web address] [facility] Administration Lisinopril 40 mg 11/06/23 10:00 11/07/23 09:29 Lisinopril 40 Mg Tablet PO 40 mg DAILY [facility] Administration Protocol Lorazepam 1 mg 11/06/23 03:34 11/07/23 12:18 Lorazepam 1 Mg Tablet PO 1 mg TID PRN PRN Administration Anxiety Melatonin 3 mg 11/06/23 03:34 Melatonin 3 Mg Tablet PO QHS PRN PRN INSOMNIA Morphine Sulfate 2 mg 11/06/23 03:34 Morphine 2 Mg/Ml Syringe IV Q3H PRN PRN Pain Score 6-10 Nitroglycerin 0.4 mg 11/06/23 03:34 Nitroglycerin (Inpatient Use) 0.4 Mg Tab.Subl SL Q5M PRN CARDIAC/CHEST PAIN Ondansetron HCl 4 mg 11/06/23 12:06 11/07/23 12:18 Ondansetron 4 Mg/2 Ml Vial IV 4 mg Q6H PRN PRN Administration NAUSEA/VOMITING Oxycodone HCl 5 mg 11/06/23 03:34 11/07/23 12:28 Oxycodone 5 Mg Tablet PO 5 mg Q4H PRN PRN Administration Pain Score 6-10 Prochlorperazine Edisylate 5 mg 11/06/23 03:34 11/07/23 09:07 Prochlorperazine 10 Mg/2 Ml Vial IV 5 mg Q4H PRN PRN Administration Breakthrough Nausea/Vomiting Ranolazine 500 mg 11/06/23 10:00 11/07/23 09:31 Ranolazine 500 Mg Tablet PO Not Given BID LUIS Senna 1 tablet 11/06/23 10:00 11/07/23 09:31 Senna Tablet PO Not Given BID LUIS Sodium Chloride 10 - 40 ml 11/06/23 03:48 11/07/23 04:49 0.9% Saline Lock 10 Ml Syringe IV 30 ml UD PRN Administration SALINE FLUSH Ticagrelor 90 mg 11/06/23 10:00 11/07/23 09:30 Ticagrelor 90 Mg Tablet PO 90 mg BID LUIS Administration Lab / Micro Data 11/07/23 04:41 11/07/23 04:41 Labs: Laboratory Results - last 24 hr 11/06/23 07:48: POC Glucose 64 L 11/06/23 11:46: POC Glucose 150 H 11/06/23 12:27: POC Glucose 123 H 11/06/23 13:28: POC Glucose 104 11/06/23 14:35: POC Glucose 82 11/06/23 15:26: POC Glucose 93 11/06/23 15:27: Sodium 143, Potassium 3.4 L, Chloride 115 H, Carbon Dioxide 16.0 L, Anion Gap 12, BUN 9, Creatinine 0.86, Estim Creat Clear Calc 105.46, Est GFR (MDRD) Af Amer 90, Est GFR (MDRD) Non-Af 74, BUN/Creatinine Ratio 10.5, Glucose 84, Calcium 8.3 L 11/06/23 16:24: POC Glucose 94 11/06/23 17:31: POC Glucose 88 11/06/23 18:32: POC Glucose 91 11/06/23 19:46: Sodium Cancelled, Potassium Cancelled, Chloride Cancelled, Carbon Dioxide Cancelled, Anion Gap Cancelled, BUN Cancelled, Creatinine Cancelled, Estim Creat Clear Calc Cancelled, Est GFR (MDRD) Af Amer Cancelled, Est GFR (MDRD) Non-Af Cancelled, BUN/Creatinine Ratio Cancelled, Glucose Cancelled, Calcium Cancelled 11/06/23 20:16: POC Glucose 70 L 11/06/23 20:43: Sodium 143, Potassium 3.4 L, Chloride 115 H, Carbon Dioxide 20.0 L, Anion Gap 8, BUN 7, Creatinine 0.80, Estim Creat Clear Calc 113.37, Est GFR (MDRD) Af Amer 98, Est GFR (MDRD) Non-Af 81, BUN/Creatinine Ratio 8.8 L, Glucose 110 H, Calcium 8.3 L 11/06/23 21:04: POC Glucose 64 L 11/06/23 21:31: POC Glucose 155 H 11/06/23 23:20: POC Glucose 101 11/07/23 04:41: WBC 13.6 H, RBC 4.18 L, Hgb 13.5, Hct 39.7, MCV 95.0 D, MCH 32.3 H, MCHC 34.0 D, RDW Std Deviation 47.5 H, RDW Coeff of Whitney 13.7, Plt Count 268, MPV 10.4, Immature Gran % (Auto) 0.700, Neut % (Auto) 58.9, Lymph % (Auto) 30.0, [place] % (Auto) 10.0, Eos % (Auto) 0.1, Baso % (Auto) 0.3, Absolute Neuts (auto) 8.0 H, Absolute Lymphs (auto) 4.06, Nucleated RBC % 0, Sodium 141, Potassium 3.9, Chloride 113 H, Carbon Dioxide 17.0 L, Anion Gap 11, BUN 6 L, Creatinine 0.70, Estim Creat Clear Calc 129.56, Est GFR (MDRD) Af Amer 113, Est GFR (MDRD) Non-Af 93, BUN/Creatinine Ratio 8.5 L, Glucose 214 H, Calcium 8.5 11/07/23 08:04: POC Glucose 223 H 11/07/23 12:13: POC Glucose 247 H Assessment and Plan . Assessment and plan: Patient seen and examined Chart and data reviewed She is feeling better Tolerating liquids w/o emesis Now receiving sq insulin AG closed GEN NAD COR RRR CHEST CTA ABD soft EXT no edema KASSIE NF IMP -Resolved DKA -Obesity/GEOVANI REC -contine sq insulin -VTE ppx -advance po as able -CPAP We are available as needed. The entirety of this encounter was done via Telemedicine
[2023-11-07 14:59] LABS: Bedside Glucose 308 mg/dL (74-106)
[2023-11-07 17:17] LABS: Bedside Glucose 284 mg/dL (74-106)
[2023-11-07] MEDS: Insulin Lispro 100 UNIT/ML INSULN.PEN 15 UNIT SC (17:27)
[2023-11-07] MEDS: lamoTRIgine 150 MG Tablet PO (22:30)
[2023-11-07] MEDS: Insulin Glargine-YFGN 100 UNIT/ML Pen 35 UNIT SC (22:30)
[2023-11-07] MEDS: Senna Tablet 1 TABLET PO (22:31)
[2023-11-07] MEDS: Ranolazine 500 MG Tablet PO (22:31)
[2023-11-07] MEDS: Atorvastatin Calcium 80 MG Tablet PO (22:31)
[2023-11-07 23:18] LABS: Bedside Glucose 197 mg/dL (74-106)
[2023-11-08] VITALS (9 sets, daily range): BP systolic 96–174; BP diastolic 71–102; PULSE 101–113; RESP 14–18; TEMP 36.3–36.8; O2SAT 95–100; BMI 46.4
[2023-11-08] MEDS: proCHLORPERazine 10 MG/2 ML Vial 5 MG IV ×3 (04:19→20:16)
[2023-11-08] MEDS: oxyCODONE 5 MG Tablet PO (04:24)
[2023-11-08] MEDS: 0.9% Saline Lock 10 ML Syringe IV ×3 (04:25→14:38)
[2023-11-08 06:42] LABS: Absolute Lymphocyte Count 2.88 X10^3/uL (0.83-4.51); Absolute Neutrophil Count 6.5 X10^3/uL (2.0-7.7); Basophil# 0.05 X10^3/uL; Basophil% 0.5 % (0-1); Eosinophil# 0.03 X10^3/uL; Eosinophils% 0.3 % (0-5); Hematocrit 39.4 % (37-47); Hemoglobin 13.3 g/dL (12.0-15.0); Lymphocyte # 2.88 X10^3/ul (0.83-4.51); Lymphocyte % 26.9 % (19-41); Mean Corp Hgb Conc 33.8 g/dL (32-36); Mean Corpuscular Volume 94.9 fL (81-99); Mean Platelet Vol. 10.8 fl (6.2-12.0); Monocyte# 1.18 X10^3/uL; NRBC Flagged by Analyzer 0 % (0-5); Neutrophil % 60.8 % (47-70); Platelet Count 246 K/mm3 (150-450); RBC Distribution Width CV 13.6 % (11.6-14.6); RBC Distribution Width SD 46.5 fl (35.1-43.9); Red Blood Count 4.15 M/mm3 (4.2-5.4); White Blood Count 10.7 K/mm3 (4.4-11.0)
[2023-11-08 07:46] LABS: Anion Gap 12 (5-15); BUN 11 mg/dL (7-18); BUN/Creat Ratio 14.4 RATIO (10-20); Calcium,Total 8.7 mg/dL (8.5-10.1); Chloride 107 mmol/L (98-107); Creatinine, Serum 0.76 mg/dL (0.55-1.02); EST Glomerular Filtration Rate 85 mL/min (>60); Est Glom Filt Rate - Afr Amer 103 mL/min (>60); Estimated Creatinine Clearance 118.61 ml/min; Glucose 181 mg/dL (74-106); Potassium 3.6 mmol/L (3.5-5.1); Sodium Level 137 mmol/L (136-145)
[2023-11-08 08:17] LABS: Bedside Glucose 197 mg/dL (74-106)
[2023-11-08] MEDS: hydrALAZINE 20 MG/ML Vial 10 MG IV (08:19)
[2023-11-08] MEDS: Ondansetron 4 MG/2 ML Vial IV (08:19)
[2023-11-08] MEDS: Insulin Lispro 100 UNIT/ML INSULN.PEN SC ×4 (08:20→21:19)
[2023-11-08] MEDS: Enoxaparin 40 MG/0.4 ML Syringe SC ×2 (08:46→21:18)
[2023-11-08] MEDS: Pantoprazole Sodium 40 MG in 0.9% Normal Saline (100mL MB+) 100 ML 330 MG IV ×2 (08:46→21:28)
--- NOTE | 2023-11-08 09:38 | PCM.PROGNOTE ---
Subjective Subjective Patient seen and examined. She still complains of nausea. She still complain of some upper belly pain. Review of systems otherwise negative. Objective Data Objective Data Vital Signs: Vital Signs Temp Pulse Resp BP Pulse Ox O2 Del Method 98.1 F 104 H 16 167/97 H 99 Room Air 11/08/23 08:07 11/08/23 08:19 11/08/23 08:07 11/08/23 08:19 11/08/23 08:07 11/08/23 08:07 Oxygen Delivery Method Room Air Weight: 279 lb 1.683 oz Body Mass Index (BMI) 46.4 Intake & Output: Intake and Output for Last 24 Hours 11/06/23 11/07/23 11/08/23 23:59 23:59 23:59 Intake Total 7721.52 / 7721.52 953.33 / 953.33 Output Total 1275 / 1275 1350 / 1350 Balance 6446.52 / 6446.52 -396.67 / -396.67 Lab / Micro Data 11/08/23 06:22 11/08/23 06:22 Labs: Laboratory Results - last 24 hr 11/07/23 12:13: POC Glucose 247 H 11/07/23 14:41: POC Glucose 308 H 11/07/23 16:37: POC Glucose 284 H 11/07/23 22:17: POC Glucose 197 H 11/08/23 06:22: WBC 10.7, RBC 4.15 L, Hgb 13.3, Hct 39.4, MCV 94.9, MCH 32.0, MCHC 33.8, RDW Std Deviation 46.5 H, RDW Coeff of Whitney 13.6, Plt Count 246, MPV 10.8, Immature Gran % (Auto) 0.500, Neut % (Auto) 60.8, Lymph % (Auto) 26.9, [place] % (Auto) 11.0 H, Eos % (Auto) 0.3, Baso % (Auto) 0.5, Absolute Neuts (auto) 6.5, Absolute Lymphs (auto) 2.88, Nucleated RBC % 0, Sodium 137, Potassium 3.6, Chloride 107, Carbon Dioxide 18.0 L, Anion Gap 12, BUN 11, Creatinine 0.76, Estim Creat Clear Calc 118.61, Est GFR (MDRD) Af Amer 103, Est GFR (MDRD) Non-Af 85, BUN/Creatinine Ratio 14.4, Glucose 181 H, Calcium 8.7 11/08/23 07:55: POC Glucose 197 H Physical Exam Const alert and oriented x3 Constitutional Narrative: obese, looks uncomfortable General Appearance: cooperative HEENT normocephalic and head/scalp atraumatic Eyes PERRL and EOMs intact bilaterally Neck no lymphadenopathy, supple and no JVD Lymph Lymphatic: no lymphadenopathy noted and no lymphedema noted Resp normal respiratory effort, normal air movement and clear to auscultation bilaterally Cardio regular rate, regular rhythm, S1 normal heart sound, S2 normal heart sound and no murmurs GI normal to inspection, nondistended, normoactive bowel sounds, soft to palpation, non-tender and non-distended Extremity normal capillary refill, no clubbing, cyanosis or edema and no calf tenderness General Extremity: no tenderness to palpation of joints or extremities Skin General Skin Exam: no breakdown Neuro CN's II-XII intact bilaterally, no focal motor deficits, no sensory deficits noted and deep tendon reflexes 2+ bilaterally Motor Exam: strength 5/5 throughout and general weakness Psych thought process normal and cooperative Appearance: appropriate Mood & Affect: flat affect Assessment & Plan Assessment/Plan (1) DKA (diabetic ketoacidosis): QUALIFIERS: Diabetes mellitus type: type 2 Diabetes mellitus complication detail: without coma Qualified Code(s): E11.10 - Type 2 diabetes mellitus with ketoacidosis without coma (2) Intractable nausea and vomiting: PLAN: Plan #DKA Patient was admitted with intractable nausea and vomiting and was found to be in DKA. DKA has resolved on lantus 35 units qhs and ISS. #Intractable nausea and vomiting: Patient still complains of nausea and vomiting despite being on Compazine and Zofran. Concern is that she may have gastroparesis. He is also complaining of some upper abdominal pain. Will place on IV pantoprazole and consult gastroenterology. Add on IM Phenergan. #CAD On aspirin and Brilinta, Ranexa, Coreg, lisinopril and Imdur. Has an extensive history of CAD and had cardiac cath on 06/12/2023 with significant disease being found. She was transferred to [facility] [place] and had PCI attempt previous PCI region. She was discharged. She came back to [facility] and was transferred to [facility] on 10/09/2023 and patient states that she is supposed to go back for repeat cardiac cath in about a week. Currently not having any chest pain. #Hypertension: BP is poorly controlled as she has not been taking her meds in the hospital due to nausea. IV hydralazine prn. Continue PO carvedilol and lisinopril.IV hydralazine prn #Hypothyroidism: On Synthroid #Anxiety and depression: On bupropion and Ativan as well as lamotrigine. #Hyperlipidemia: On statin #COPD and asthma: Not in exacerbation. Breathing treatments bronchodilators. #Morbid obesity:BMI is 46.9. Complicates acute care, expected recovery and prognosis. #GED: on PPI. #GEOVANI: on CPAP qhs. DVT prophylaxis: lovenox Charges/Coding Visit Charges Inpatient E&M: 24152 Subs Hosp L2
[2023-11-08] MEDS: LORazepam 1 MG Tablet PO ×2 (11:24→17:48)
[2023-11-08] MEDS: Carvedilol 25 MG Tablet PO ×2 (11:25→17:49)
[2023-11-08] MEDS: proMETHazine 25 MG/ML Syringe 12.5 MG IM ×2 (11:25→17:48)
--- NOTE | 2023-11-08 11:51 | CON.PCM.GI_ITS ---
HPI Consult Data Date of Consult: 11/08/23 HPI Narrative HPI Narrative: ADELFO BACK, is a 48 F who presents with abdominal pain and chest pain. She has a past medical history of diabetes mellitus type II, GERD, Hypothyroidism, Morbid Obesity, GEOVANI on CPAP, HTN, HLD, Anxiety and Depression/bipolar disorder, Hypothroidism, COPD/Asthma, Former tobacco use, Extensive CAD s/p STEMI s/p PCI with history of 06/12/23 cardiac catheterization with severe RCA lesion as well as patent stent to proximal LAD, 70% mid LAD lesion, in-stent restenosis proximal mid RCA transfer to tertiary facility for consideration of laser/rotablation/brachytherapy to the RCA as well as rotablation to mid LAD with hospitalization at [facility] through 06/23 with evaluation by cardiot horacic surgery and interventional cardiology eventually pursuing PCI to the proximal RCA with laser to region of previously placed stent on 06/22 with admission with recurrent chest discomfort eventually transition once bed available to [facility] where she notes she had a repeat catheterization with no intervention with continued medical management who now represents to the. She presented to [facility] ED on 11/06/2023 with onset over the last 3-4 days of awaiting with episode of nausea and emesis which seemed rate limited but unfortunately on 11/05/23 am she had again recurrent nausea, emesis which worsened and became intractable with no diarrhea nor abdominal pain nor any fever or ch ills with then onset of chest discomfort following her serial bouts but subsided upon ED evaluation with generalized body aches and fatigue. She reports significant recent polydipsia and polyuria. Workup in the ED included T97.5, heart 97, BP 140/76, respiratory rate 18, 98% on room air, CBC with WBC 13.2, hemoglobin 14.7, platelet 310 with left shift, VBG with pH 7.15, pO2 63, bicarb 9, O2 saturation 85% obtained on room air, CMP with carbon oxide 9, anion gap 20, glucose 200, hepatic profile not marked appearing, lipase less than 10, troponin 6 with repeat delta 6 also, chest x-ray with no acute cardiopulmonary findings, CT abdomen and pelvis with nonobstructing bilateral nephrolithiasis with no acute intra-abdominal findings otherwise. Reviewed presentation with ED physician and suspect DKA with pending urinalysis and acetone levels prior to initiation of insulin drip. In the ED patient administered 1 L normal saline, Reglan 5 mg IV x 1, Zofran 4 mg IV x 1, morphine 4 mg IV x 1 as well as prochlorperazine 10 mg IV x 1. Order also placed for insulin drip given high suspicion while awaiting labs to confirm DKA. [facility] Medical History (Updated 11/06/23 @ 11:44 by Eli Jacobs, MOHAN) Anxiety and depression Asthma Atherosclerotic heart disease of hoh coronary artery without angina pectoris Blood disorder CHF (congestive heart failure) Chronic obstructive pulmonary disease Chronic pain COVID-19 Diabetes mellitus, type II Essential hypertension GERD (gastroesophageal reflux disease) Heart attack Hypercholesterolemia Hypothyroidism Irregular heartbeat Morbid obesity with BMI of 50.0-59.9, adult Nicotine dependence Nonadherence to medication GEOVANI (obstructive sleep apnea) Sinus bradycardia by electrocardiogram Sleep-disordered breathing Smoker ST elevation myocardial infarction (STEMI) of inferior wall Home Medications albuterol sulfate 90 mcg/actuation aerosol inhaler 1 - 2 puff inhalation Q4H PRN PRN Wheezing ##1 10/15/15 [Rx Last Taken 10/19/20] budesonide-formoterol HFA 160 mcg-4.5 mcg/actuation aerosol inhaler 2 puff PO BID breathing 05/07/19 [History Last Taken 10/20/20] bupropion HCl 300 mg 24 hr tablet, extended release 300 mg PO DAILY MOOD [History Last Taken 10/20/20] lorazepam 1 mg tablet 0.5 - 1 mg PO TID PRN Anxiety 04/24/21 [History Last Taken Unknown] ondansetron 4 mg disintegrating tablet 4 mg PO Q8H PRN nausea and vomiting #10 tabs 12/31/21 [Rx Last Taken Unknown] atorvastatin 80 mg tablet 80 mg PO QHS cholesterol #90 tabs 03/25/22 [Rx Last Taken Unknown] levothyroxine 200 mcg tablet 200 mcg PO DAILY 03/25/22 [History Last Taken Unknown] levothyroxine 75 mcg tablet 75 mcg PO DAILY 03/25/22 [History Last Taken Unknown ] bupropion HCl 150 mg 24 hr tablet, extended release 150 mg PO DAILY 04/06/23 [History Last Taken Unknown] carvedilol 25 mg tablet 25 mg PO Q12H 04/06/23 [History Last Taken Unknown] levothyroxine 300 mcg tablet 300 mcg PO .thursday04/06/23 [History Last Taken Unknown] blood pressure monitor #1 ea 04/30/23 [Rx Last Taken Unknown] lisinopril 40 mg tablet 40 mg PO DAILY blood pressure #90 tabs 04/30/23 [Rx Last Taken Unknown] nitroglycerin 0.4 mg sublingual tablet 0.4 mg sublingual Q5-15M PRN chest pain #25 tabs 04/30/23 [Rx Last Taken Unknown] pantoprazole 40 mg tablet,delayed release 40 mg PO DAILY acid reflux #30 tabs 04/30/23 [Rx Last Taken Unknown] ticagrelor 90 mg tablet (Brilinta) See Rx Instructions .Route .COMPLEX #180 tabs 05/15/23 [Rx Last Taken Unknown] blood sugar diagnostic (Pivtouch Verio test strips) 10/06/23 [History Last Taken Unknown] blood-glucose meter (PearlfectionTouch Verio Flex Meter) 10/06/23 [History Last Taken Unknown] flash glucose sensor (FreeStyle Konstantin 2 Sensor kit) 10/06/23 [History Last Taken Unknown] insulin syringe-needle U-100 0.5 mL 31 gauge x 5/16 (BD Insulin Syringe Ultra- Fine) 10/06/23 [History Last Taken Unknown] isosorbide mononitrate 60 mg tablet,extended release 24 hr 60 mg PO DAILY 10/06/23 [History Last Taken Unknown] lamotrigine 150 mg tablet 150 mg PO BID 10/06/23 [History Last Taken Unknown] lamotrigine 25 mg tablet 50 mg PO DAILY 10/06/23 [History Last Taken Unknown] lancets 33 gauge (Unilet Lancet) 10/06/23 [History Last Taken Unknown] ranolazine 500 mg tablet,extended release,12 hr 500 mg PO BID 10/06/23 [History Last Taken Unknown] insulin lispro 100 unit/mL subcutaneous pen (Humalog KwikPen (U-100) Insulin) See Protocol subcut ACHS #0 mL 10/09/23 [Rx Last Taken Unknown] oxycodone 5 mg tablet 5 mg PO Q4H PRN PRN Pain Score 6-10 #0 tabs 10/09/23 [Rx Last Taken Unknown] sennosides 8.6 mg tablet (senna) 8.6 mg PO BID #0 tabs 10/09/23 [Rx Last Taken Unknown] insulin glargine-yfgn 100 unit/mL (3 mL) subcutaneous pen 35 unit subcut QHS 11/05/23 [History Last Taken Unknown] insulin lispro 100 unit/mL subcutaneous pen (Humalog KwikPen (U-100) Insulin) 15 unit subcut TIDAC 11/05/23 [History Last Taken Unknown] Allergy/AdvReac Type Severity Reaction Status Date / Time metformin [From Glucophage] AdvReac Intermediate Diarrhea Verified 11/05/23 22:14 Family History Mother Cancer lung Father Hypertension COPD (chronic obstructive pulmonary disease) Daughter Factor V deficiency Grandmother Cancer lung COPD (chronic obstructive pulmonary disease) Surgical History H/O cardiac catheterization History of back surgery History of delivery History of cholecystectomy History of coronary artery stent placement (04/06/23) History of dilatation and curettage History of left heart catheterization (04/06/23) History of percutaneous transluminal coronary angioplasty (~10/20/20) History of tonsillectomy and adenoidectomy History of tubal ligation S/P tubal ligation Social History household members: none Smoking Status: Former smoker alcohol intake: current alcohol intake frequency: holidays/special occasions only substance use type: does not use caffeine: Yes ROS Constitutional Constitutional: Denies chills, fatigue, fever(s) or weakness Eyes Eyes: Denies change in vision Cardiovascular Cardiovascular: Reports chest pain and dyspnea on exertion; Denies rapid heart rate Respiratory/Chest Respiratory/Chest: Denies cough or shortness of breath at rest Gastrointestinal Gastrointestinal: Denies abdominal pain Physical Exam Const alert and oriented x3 Constitutional Narrative: obese, looks uncomfortable General Appearance: cooperative HEENT normocephalic and head/scalp atraumatic Eyes PERRL and EOMs intact bilaterally Neck no lymphadenopathy, supple and no JVD Lymph Lymphatic: no lymphadenopathy noted and no lymphedema noted Resp normal respiratory effort, normal air movement and clear to auscultation bilaterally Cardio regular rate, regular rhythm, S1 normal heart sound, S2 normal heart sound and no murmurs GI normal to inspection, nondistended, normoactive bowel sounds, soft to palpation, non-tender and non-distended Extremity normal capillary refill, no clubbing, cyanosis or edema and no calf tenderness General Extremity: no tenderness to palpation of joints or extremities Skin General Skin Exam: no breakdown Neuro CN's II-XII intact bilaterally, no focal motor deficits, no sensory deficits noted and deep tendon reflexes 2+ bilaterally Motor Exam: strength 5/5 throughout and general weakness Psych thought process normal and cooperative Appearance: appropriate Mood & Affect: flat affect Lab / Micro Data 11/08/23 06:22 11/09/23 04:10 Labs: Laboratory Results - last 24 hr 11/08/23 06:22: Magnesium 1.7 11/08/23 11:22: POC Glucose 223 H 11/08/23 17:27: POC Glucose 207 H 11/08/23 21:13: POC Glucose 209 H 11/08/23 21:55: Urine Test Negative 11/09/23 04:10: APTT 25.3, Sodium 137, Potassium 3.3 L, Chloride 106, Carbon Dioxide 15.0 L, Anion Gap 16 H, BUN 9, Creatinine 0.75, Estim Creat Clear Calc 116.79, Est GFR (MDRD) Af Amer 105, Est GFR (MDRD) Non-Af 87, BUN/Creatinine Ratio 12.0, Glucose 188 H, Calcium 8.7, TSH 1.31 11/09/23 06:13: POC Glucose 179 H Assessment & Plan Assessment/Plan (1) DKA (diabetic ketoacidosis): QUALIFIERS: Diabetes mellitus type: type 2 Diabetes mellitus complication detail: without coma Qualified Code(s): E11.10 - Type 2 diabetes mellitus with ketoacidosis without coma (2) Intractable nausea and vomiting: PLAN: Plan DKA * Patient was admitted with intractable nausea and vomiting and was found to be in DKA. * anion gap closed x 2 overnight, so patient now off insulin drip * on lantus 35 units qhs and ISS. * bicarb is 17 today. anion gap is 11 * patient complaining of nausea. on iV compazine and zofran * will place on clear liquid diet, to advance as tolerated * A1c: Intractable nausea and vomiting: Likely due to DKA. Also different diagnosis is gastroparesis or gastric outlet obstruction, gastritis, H. pylori associated disease. She should undergo an upper endoscopy to evaluate upper GI tract. She was explained alternatives, risk, benefits include not withstanding bleeding, infection, sepsis, perforation, need emergent and . She will have a ASA of 3. Charges/Coding Visit Charges Inpatient E&M: 30239 Init Hosp L3
[2023-11-08 12:27] LABS: Bedside Glucose 223 mg/dL (74-106)
[2023-11-08] MEDS: Lisinopril 40 MG Tablet PO (12:30)
[2023-11-08] MEDS: Isosorbide Mononitrate 60 MG Tablet PO (12:30)
[2023-11-08] MEDS: TICAGRELOR 90 MG TABLET PO ×2 (12:30→21:18)
[2023-11-08] MEDS: Aspirin 81 MG TAB.CHEW PO (12:33)
[2023-11-08] MEDS: lamoTRIgine 150 MG Tablet PO ×2 (12:33→21:18)
[2023-11-08] MEDS: Ranolazine 500 MG Tablet PO ×2 (12:34→21:18)
[2023-11-08] MEDS: buPROPion (XL) 150 MG TABLET.XL PO (12:34)
[2023-11-08] MEDS: buPROPion (XL) 300 MG TABLET.XL PO (12:34)
[2023-11-08] MEDS: lamoTRIgine 25 MG Tablet 50 MG PO (12:34)
[2023-11-08 17:40] LABS: Magnesium 1.7 mg/dL (1.6-2.6)
[2023-11-08 17:48] LABS: Bedside Glucose 207 mg/dL (74-106)
[2023-11-08] MEDS: Senna Tablet 1 TABLET PO (21:18)
[2023-11-08] MEDS: Atorvastatin Calcium 80 MG Tablet PO (21:18)
[2023-11-08] MEDS: Insulin Glargine-YFGN 100 UNIT/ML Pen 35 UNIT SC (21:18)
[2023-11-08 23:31] LABS: Internal QC Validated? YES +Cl - CLEAR BKGD; Pregnancy, Urine Negative Negative; Record Kit Lot#,Urine Preg 718089
[2023-11-09] VITALS (11 sets, daily range): BP systolic 87–177; BP diastolic 64–98; PULSE 97–121; RESP 16–18; TEMP 36.2–36.7; O2SAT 97–100; BMI 44.2
[2023-11-09] MEDS: proMETHazine 25 MG/ML Syringe 12.5 MG IM ×3 (00:05→16:56)
--- NOTE | 2023-11-09 00:30 | PCM.HOSP.N ---
Hospitalist Note Patient with reported vulvovaginal candidiasis, will administer oral fluconzole dose x 1.
[2023-11-09 00:37] LABS: Bedside Glucose 209 mg/dL (74-106)
[2023-11-09] MEDS: Haloperidol Lactate 5 MG/ML Vial IV (04:05)
[2023-11-09] MEDS: proCHLORPERazine 10 MG/2 ML Vial 5 MG IV ×3 (04:36→20:15)
[2023-11-09 04:48] LABS: Partial Thromboplast Time 25.3 Seconds (24.1-36.2)
[2023-11-09 05:20] LABS: Anion Gap 16 (5-15); BUN 9 mg/dL (7-18); Calcium,Total 8.7 mg/dL (8.5-10.1); Chloride 106 mmol/L (98-107); Creatinine, Serum 0.75 mg/dL (0.55-1.02); EST Glomerular Filtration Rate 87 mL/min (>60); Est Glom Filt Rate - Afr Amer 105 mL/min (>60); Estimated Creatinine Clearance 116.79 ml/min; Glucose 188 mg/dL (74-106); Potassium 3.3 mmol/L (3.5-5.1); Sodium Level 137 mmol/L (136-145); Thyroid Stim Hormone (TSH) 1.31 uIU/mL (0.358-3.74)
[2023-11-09 07:19] LABS: Bedside Glucose 179 mg/dL (74-106)
--- NOTE | 2023-11-09 08:41 | PN.HOSP_ITS ---
Reason for Visit Reason for Visit: Diagnoses Type 2 diabetes mellitus with ketoacidosis without coma (11/06/23) Nausea with vomiting, unspecified (11/06/23) Subjective Subjective Feeling terrible. Not tolerating diet thus far. Objective Data Objective Data Vital Signs: Vital Signs Temp Pulse Resp BP Pulse Ox O2 Del Method 36.3 C L 109 H 16 172/98 H 99 Room Air 11/09/23 07:59 11/09/23 07:59 11/09/23 07:59 11/09/23 07:59 11/09/23 07:59 11/09/23 07:59 Oxygen Delivery Method Room Air Weight: 120.6 kg Body Mass Index (BMI) 44.2 Intake & Output: Intake and Output for Last 24 Hours 11/07/23 11/08/23 11/09/23 23:59 23:59 23:59 Intake Total 953.33 / 953.33 1160 / 1160 Output Total 1350 / 1350 400 / 400 120 / 120 Balance -396.67 / -396.67 760 / 760 -120 / -120 Lab / Micro Data 11/09/23 04:10 11/09/23 04:10 Labs: Laboratory Results - last 24 hr 11/08/23 06:22: Magnesium 1.7 11/08/23 11:22: POC Glucose 223 H 11/08/23 17:27: POC Glucose 207 H 11/08/23 21:13: POC Glucose 209 H 11/08/23 21:55: Urine Test Negative 11/09/23 04:10: APTT 25.3, Sodium 137, Potassium 3.3 L, Chloride 106, Carbon Dioxide 15.0 L, Anion Gap 16 H, BUN 9, Creatinine 0.75, Estim Creat Clear Calc 116.79, Est GFR (MDRD) Af Amer 105, Est GFR (MDRD) Non-Af 87, BUN/Creatinine Ratio 12.0, Glucose 188 H, Calcium 8.7, TSH 1.31 11/09/23 06:13: POC Glucose 179 H Physical Exam Const alert and no apparent distress HEENT head/scalp atraumatic and moist oral mucous membranes Resp normal respiratory effort, no retractions, no use of accessory muscles and clear to auscultation bilaterally Cardio regular rate, regular rhythm, S1 normal heart sound and S2 normal heart sound GI normal to inspection, nondistended, normoactive bowel sounds, soft to palpation, non-tender and non-distended Extremity normal to inspection Neuro Sensorium / Orientation: awake Assessment & Plan Assessment/Plan (1) DKA (diabetic ketoacidosis): QUALIFIERS: Diabetes mellitus complication detail: without coma Diabetes mellitus type: type 2 Qualified Code(s): E11.10 - Type 2 diabetes m kristalitus with ketoacidosis without coma (2) Intractable nausea and vomiting: PLAN: Plan DKA * resolved * Patient was admitted with intractable nausea and vomiting and was found to be in DKA. * on lantus 35 units qhs and ISS. Intractable nausea and vomiting: * Suspect with gastroparesis * Patient still complains of nausea and vomiting despite being on Compazine and Zofran. * Concern is that she may have gastroparesis. He is also complaining of some upper abdominal pain. * Will place on IV pantoprazole and consult gastroenterology. Add on IM Phenergan. * EGD non bleeding gastric ulcer, non bleeding. Biopsied. Vaginal candidiasis * received 1x dose of fluconazole. Chronic conditions: * CAD: On aspirin and Brilinta, Ranexa, Coreg, lisinopril and Imdur. Has an extensive history of CAD and had cardiac cath on 06/12/2023 with significant disease being found. She was transferred to [facility] and had PCI attempt previous PCI region. She was discharged. She came back to [facility] and was transferred to [facility] on 10/09/2023 and patient states that she is supposed to go back for repeat cardiac cath in about a week. Currently not having any chest pain. * hypertension: BP is poorly controlled as she has not been taking her meds in the hospital due to nausea. IV hydralazine prn. Continue PO carvedilol and lisinopril.IV hydralazine prn * Hypothyroidism: On Synthroid * Anxiety and depression: On bupropion and Ativan as well as lamotrigine. * Hyperlipidemia: On statin * COPD and asthma: Not in exacerbation. Breathing treatments bronchodilators. * Morbid obesity:BMI is 46.9. Complicates acute care, expected recovery and prognosis. * GERD: on PPI. * GEOVANI: on CPAP qhs. DVT prophylaxis: lovenox Charges/Coding Visit Charges Inpatient E&M: 25193 Subs Hosp L2
[2023-11-09] MEDS: hydrALAZINE 20 MG/ML Vial 10 MG IV (09:12)
--- NOTE | 2023-11-09 11:30 | IMM_PTH ---
PATIENT: ADELFO BACK LOC: MS3 U#:[id number] AGE/SX: 48/F ROOM: [facility] RE11/06/[address]: Dr. Abrahan Johnson DO : 1975 BED: 1 DIS: 11/13/2023 SPEC #: [id number] RECD: 11/10/23 08:27 STATUS: SOUT REQ #: [id number] MARSHALL: 11/09/23 11:[address]: Espinoza Carroll DEPT: IMMUNOHISTOCHEMISTRY RECD BY: Vicente Montes De Oca ENTERED: 11/10/23 08:27 SP TYPE: IMMUNO OTHR DR: MD Dr. Carlotta Ashton MD Dr. Eric Jopperi, DO Dr. Nana Yaa Koram, MD Tissues: Stomach, NOS Procedures: H Pylori (initial) Comments: @ Ordering doctor for H.PYLORI edited from to @ by MIKE at 11/10/23827 @ Submitting doctor edited from to @ by MIKE at 11/10/23827 PHYSICIAN & INSTITUTION [place] [address] SPECIMEN INFORMATION: Tissue Source: Gastric ulcer biopsy Clinical Info: Nausea and vomiting Specimen Number: [id number] CPT code: 05069 METHODOLOGY: Deparaffinized sections of prefer/formalin-fixed tissue or PAP/DQ stained slides are incubated with monoclonal/polyclonal antibodies/oligonucleotide probes. Localization is made via biotin free immunoperoxidase method. Appropriate controls are performed and reacted as expected. Results on target cell population are indicated in the following table: RESULTS: ANTIBODY / CLONE RESULT H Pylori (polyclonal) negative These tests were developed and their performance characteristics determined by [facility]. They may not have been cleared or approved by the U.S. Food and Drug Administration. The FDA has determined that such clearance or approval is not necessary. The above immunohistochemical/dualISH markers are ordered and reviewed by the Pathologist. INTERPRETATION: Gastric ulcer, biopsy: Negative for Helicobacter pylori organisms. EMILY/ 11/10/23
--- NOTE | 2023-11-09 11:30 | EGD_PTH ---
PATIENT: ADELFO BACK LOC: MS3 U#:[id number] AGE/SX: 48/F ROOM: [facility] RE11/06/[address]: Dr. Abrahan Johnson DO : 1975 BED: 1 DIS: 11/13/2023 SPEC #: [id number] RECD: 11/09/23 13:06 STATUS: ARMANDO REAdrienne #: [id number] MARSHALL: 11/09/23 11:[address]: Espinoza Carroll DEPT: SURGICAL PATHOLOGY RECD BY: Ann Galaviz ENTERED: 11/09/23 14:05 SP TYPE: EGD BIOPSY OTHR DR: MD Dr. Carlotta Ashton MD Dr. Eric Jopperi, DO Dr. Nana Yaa Koram, MD Tissues: Gastric mucous membrane Procedures: Surgery Specimen Level IV Comments: @ Ordering doctor for SUSANA edited from to @ ronni MCKEON at 11/09/23 1454 @ Submitting doctor edited from to @ by MIKE at 11/09/23 1454 HEADER OPERATION: EGD biopsy PRE-OP DIAGNOSIS: Nausea and vomiting TISSUE SUBMITTED: Gastric ulcer biopsy MICROSCOPIC DIAGNOSIS Gastric ulcer, biopsy: Fragments of gastric mucosa with moderate chronic inflammation and mild acute inflammation. Fragments of food particles. Focal intestinal metaplasia (goblet cell metaplasia). See comment. EMILY/ 11/10/23 COMMENT Alcian blue/PAS stain with matched control is used in the evaluation of the specimen. Fragments of food particle also show focal bacterial colonization. Special stain for fungi is positive for organisms in the area of food particles (yeast and pseudohypae), consistent with Lauren species; matched control is appropriate. The results of immunohistochemistry for Helicobacter pylori will be reported separately ([id number]). Correlation with clinical, endoscopic findings and appropriate follow up are necessary. MICROSCOPIC DESCRIPTION Slides are reviewed. GROSS DESCRIPTION Received in fixative is one container labeled with the patient's name and designated Gastric ulcer biopsy. The specimen consists of two irregular fragments of light vega soft tissue that in aggregate measure 1.0 x 0.5 x 0.2 cm. The specimen is totally submitted in one cassette. Kim 11/09/23 TC: 2 CPT:32123,01913,42079
--- NOTE | 2023-11-09 12:10 | OP.EGD_ITS ---
Patient Name: Jocelynn Cunningham Procedure Date: 11/09/2023 11:02 AM Date of : 1975 Age: 48 Procedure: Upper GI endoscopy Indications: Epigastric abdominal pain Providers: Espinoza Carroll DO Medicines: Monitored Anesthesia Care Patient Profile: This is a 48 year old female. Refer to note in patient chart for documentation of history and physical. Patient has symptoms of acute epigastric abdominal pain and acute vomiting. Complications: No immediate complications. Procedure: Pre-Anesthesia Assessment: - Prior to the procedure, a History and Physical was performed, and patient medications and allergies were reviewed. The patient is competent. The risks and benefits of the procedure and the sedation options and risks were discussed with the patient. All questions were answered and informed consent was obtained. Patient identification and proposed procedure were verified by the physician in the pre-procedure area. Mental Status Examination: alert and oriented. Airway Examination: normal oropharyngeal airway and neck mobility. Respiratory Examination: clear to auscultation. CV Examination: normal. Prophylactic Antibiotics: The patient does not require prophylactic antibiotics. Prior Anticoagulants: The patient has taken no anticoagulant or antiplatelet agents. ASA Grade Assessment: III - A patient with severe systemic disease. After reviewing the risks and benefits, the patient was deemed in satisfactory condition to undergo the procedure. The anesthesia plan was to use monitored anesthesia care (MAC). Immediately prior to administration of medications, the patient was re-assessed for adequacy to receive sedatives. The heart rate, respiratory rate, oxygen saturations, blood pressure, adequacy of pulmonary ventilation, and response to care were monitored throughout the procedure. The physical status of the patient was re-assessed after the procedure. After obtaining informed consent, the endoscope was passed under direct vision. Throughout the procedure, the patient's blood pressure, pulse, and oxygen saturations were monitored continuously. The gastroscope was introduced through the mouth, and advanced to the second part of duodenum. The upper GI endoscopy was accomplished without difficulty. The patient tolerated the procedure well. Scope In: 11:58:20 AM Scope Out: 12:01:04 PM Total Procedure Duration Time 0 hours 2 minutes 44 seconds Findings: There was blood seen in the back of the mouth. The examined esophagus was normal. Five non-bleeding linear gastric ulcers with no stigmata of bleeding were found in the gastric body. The largest lesion was 10 mm in largest dimension. Biopsies were taken with a cold forceps for histology. Verification of patient identification for the specimen was done. Estimated blood loss was minimal. Biopsies were taken with a cold forceps for Helicobacter pylori testing. Verification of patient identification for the specimen was done. Estimated blood loss was minimal. The first portion of the duodenum was normal. Impression: - Normal esophagus. - Non-bleeding gastric ulcers with no stigmata of bleeding. Biopsied. - Normal first portion of the duodenum. Recommendation: - [facility]. - Resume previous diet. - Use metoclopramide 10 mg IV QID; - Azithromycin 500 mg IV daily - Continue present medications. Procedure Code(s): --- Professional --- 22311, Esophagogastroduodenoscopy, flexible, transoral; with biopsy, single or multiple CPT copyright 2021 [employer]. All rights reserved. The codes documented in this report are preliminary and upon net sorter review may be revised to meet current compliance requirements. Espinoza Carroll DO 11/09/2023 12:10:00 PM This report has been signed electronically. Number of Addenda: 0 Note Initiated On: 11/09/2023 11:02 AM
--- NOTE | 2023-11-09 12:10 | OP.CCLET_ITS ---
11/09/2023 Carlotta Galindo [address] [place] [address] Re : Upper GI endoscopy procedure for Jocelynn Cunningham Dear Dr. Galindo This procedure was performed on Thursday, November 09, 2023. My impressions and recommendations are as follows: Impressions : - Normal esophagus. - Non-bleeding gastric ulcers with no stigmata of bleeding. Biopsied. - Normal first portion of the duodenum. Recommendations : - [facility]. - Resume previous diet. - Use metoclopramide 10 mg IV QID; - Azithromycin 500 mg IV daily - Continue present medications. My findings are described in the full procedure note, which is enclosed. If I can be of further assistance, please feel free to contact me at . Sincerely, Espinoza Carroll, 11/09/2023 12:10:00 PM This report has been signed electronically.
[2023-11-09 13:11] LABS: Absolute Lymphocyte Count 3.58 X10^3/uL (0.83-4.51); Absolute Neutrophil Count 5.2 X10^3/uL (2.0-7.7); Basophil# 0.07 X10^3/uL; Basophil% 0.7 % (0-1); Eosinophil# 0.03 X10^3/uL; Eosinophils% 0.3 % (0-5); Hematocrit 40.4 % (37-47); Hemoglobin 13.9 g/dL (12.0-15.0); Lymphocyte # 3.58 X10^3/ul (0.83-4.51); Lymphocyte % 35.6 % (19-41); Mean Corp Hgb Conc 34.4 g/dL (32-36); Mean Corpuscular Hgb 32.5 pg (27.0-32.0); Mean Corpuscular Volume 94.4 fL (81-99); Mean Platelet Vol. 11.1 fl (6.2-12.0); Monocyte# 1.13 X10^3/uL; Monocyte% 11.2 % (0-10); NRBC Flagged by Analyzer 0 % (0-5); Neutrophil % 51.8 % (47-70); Platelet Count 264 K/mm3 (150-450); RBC Distribution Width CV 13.6 % (11.6-14.6); RBC Distribution Width SD 46.5 fl (35.1-43.9); Red Blood Count 4.28 M/mm3 (4.2-5.4); White Blood Count 10.1 K/mm3 (4.4-11.0)
[2023-11-09] MEDS: Pantoprazole Sodium 40 MG in 0.9% Normal Saline (100mL MB+) 100 ML 330 MG IV ×2 (13:28→21:12)
[2023-11-09] MEDS: 0.9% Saline Lock 10 ML Syringe IV ×3 (13:28→21:12)
[2023-11-09] MEDS: Fluconazole 100 MG Tablet 200 MG PO (14:17)
[2023-11-09] MEDS: TICAGRELOR 90 MG TABLET PO ×2 (14:18→21:08)
[2023-11-09] MEDS: Isosorbide Mononitrate 60 MG Tablet PO (14:18)
[2023-11-09] MEDS: Carvedilol 25 MG Tablet PO ×2 (14:18→21:08)
[2023-11-09] MEDS: Senna Tablet 1 TABLET PO ×2 (14:20→21:08)
[2023-11-09] MEDS: lamoTRIgine 25 MG Tablet 50 MG PO (14:20)
[2023-11-09] MEDS: buPROPion (XL) 300 MG TABLET.XL PO (14:21)
[2023-11-09] MEDS: buPROPion (XL) 150 MG TABLET.XL PO (14:21)
[2023-11-09] MEDS: Lisinopril 40 MG Tablet PO (14:21)
[2023-11-09] MEDS: Ranolazine 500 MG Tablet PO ×2 (14:22→21:08)
[2023-11-09] MEDS: lamoTRIgine 150 MG Tablet PO ×2 (14:22→21:08)
[2023-11-09] MEDS: Metoclopramide 10 MG/2 ML Vial IV ×2 (14:29→21:08)
[2023-11-09] MEDS: Azithromycin 500 MG in Dextrose 5%-Water (250mL Bag) 250 ML 250 MG IV (14:30)
[2023-11-09] MEDS: Insulin Lispro 100 UNIT/ML INSULN.PEN SC ×2 (16:55→21:21)
[2023-11-09] MEDS: Insulin Lispro 100 UNIT/ML INSULN.PEN 15 UNIT SC (16:55)
[2023-11-09 17:29] LABS: Bedside Glucose 241 mg/dL (74-106)
[2023-11-09] MEDS: Nystatin Powder 15gm Bottle 1 APPLIC TOPICAL (21:07)
[2023-11-09] MEDS: Enoxaparin 40 MG/0.4 ML Syringe SC (21:07)
[2023-11-09] MEDS: Atorvastatin Calcium 80 MG Tablet PO (21:14)
[2023-11-09] MEDS: Insulin Glargine-YFGN 100 UNIT/ML Pen 35 UNIT SC (21:22)
[2023-11-09 21:58] LABS: Bedside Glucose 303 mg/dL (74-106)
[2023-11-10] MEDS: proMETHazine 25 MG/ML Syringe 12.5 MG IM ×2 (02:20→11:01)
[2023-11-10 02:48] VITALS: BP 143/77; PULSE 92; RESP 18; TEMP 36.1; O2SAT 99
[2023-11-10 03:37] VITALS: BMI 45.6
[2023-11-10] MEDS: proCHLORPERazine 10 MG/2 ML Vial 5 MG IV ×3 (04:10→16:44)
[2023-11-10 04:15] LABS: Absolute Lymphocyte Count 3.35 X10^3/uL (0.83-4.51); Absolute Neutrophil Count 5.1 X10^3/uL (2.0-7.7); Basophil# 0.03 X10^3/uL; Basophil% 0.3 % (0-1); Eosinophil# 0.01 X10^3/uL; Eosinophils% 0.1 % (0-5); Hematocrit 37.7 % (37-47); Hemoglobin 13.3 g/dL (12.0-15.0); Lymphocyte # 3.35 X10^3/ul (0.83-4.51); Lymphocyte % 35.1 % (19-41); Mean Corp Hgb Conc 35.3 g/dL (32-36); Mean Corpuscular Hgb 32.8 pg (27.0-32.0); Mean Corpuscular Volume 92.9 fL (81-99); Mean Platelet Vol. 10.3 fl (6.2-12.0); Monocyte# 1.02 X10^3/uL; Monocyte% 10.7 % (0-10); NRBC Flagged by Analyzer 0 % (0-5); Neutrophil # 5.08 X10^3/uL (2.7-7.7); Neutrophil % 53.2 % (47-70); Platelet Count 250 K/mm3 (150-450); RBC Distribution Width CV 13.3 % (11.6-14.6); RBC Distribution Width SD 45.7 fl (35.1-43.9); Red Blood Count 4.06 M/mm3 (4.2-5.4); White Blood Count 9.6 K/mm3 (4.4-11.0)
[2023-11-10 04:29] LABS: Anion Gap 13 (5-15); BUN 10 mg/dL (7-18); BUN/Creat Ratio 12.8 RATIO (10-20); Calcium,Total 8.7 mg/dL (8.5-10.1); Chloride 106 mmol/L (98-107); Creatinine, Serum 0.78 mg/dL (0.55-1.02); EST Glomerular Filtration Rate 83 mL/min (>60); Est Glom Filt Rate - Afr Amer 101 mL/min (>60); Estimated Creatinine Clearance 114.37 ml/min; Glucose 191 mg/dL (74-106); Potassium 3.5 mmol/L (3.5-5.1); Sodium Level 137 mmol/L (136-145)
[2023-11-10] MEDS: Levothyroxine 100 MCG Tablet 200 MCG PO (05:04)
[2023-11-10] MEDS: Levothyroxine 75 MCG Tablet PO (05:04)
[2023-11-10] MEDS: Metoclopramide 10 MG/2 ML Vial IV ×3 (05:05→21:12)
[2023-11-10] MEDS: Insulin Lispro 100 UNIT/ML INSULN.PEN SC ×4 (07:57→19:57)
--- NOTE | 2023-11-10 08:21 | PN.HOSP_ITS ---
Reason for Visit Reason for Visit: Diagnoses Type 2 diabetes mellitus with ketoacidosis without coma (11/06/23) Nausea with vomiting, unspecified (11/06/23) Subjective Subjective Still not tolerating much food, only few bites at a time. Objective Data Objective Data Vital Signs: Vital Signs Temp Pulse Resp BP Pulse Ox O2 Del Method 36.1 C L 92 18 143/77 H 99 Room Air 11/10/23 02:48 11/10/23 02:48 11/10/23 02:48 11/10/23 02:48 11/10/23 02:48 11/10/23 07:50 Oxygen Delivery Method Room Air Weight: 124.4 kg Body Mass Index (BMI) 45.6 Intake & Output: Intake and Output for Last 24 Hours 11/08/23 11/09/23 11/10/23 23:59 23:59 23:59 Intake Total 1160 / 1160 475 / 475 Output Total 400 / 400 120 / 120 Balance 760 / 760 355 / 355 Medical Nutrition Assessment Dietitian: Malnutrition Criteria Met Start: 11/09/23 16:43 Freq: Status: Active Protocol: Document 11/09/23 16:43 RMA (Rec: 11/09/23 16:43 RMA [id number]) Nutrition Malnutrition Evidence of Malnutrition Exists Yes Malnutrition (severe): Acute Illness/Injury Evidenced By Suboptimal Energy Intake ( Severe),Weight Loss (Severe) Intake Problem Inadequate Oral Intake Etiology related to altered GI function , intractable N/V Signs/Symptoms as evidenced by current PO less than 25% meals Status Active Problem Clinical Problem Acute Disease or Injury Related Malnutrition Etiology severe protein-calorie malnutrition in the context of acute illness related to altered GI function, N/V Signs/Symptoms as evidenced by ~8% unintentional weight loss x 1 month, taking less than 25% meals and PO meeting less than 50% estimated nutrition needs x 1 week Status Active Problem Recommendation Dietitian Recommendations/Changes Will adjust diet to 1600 calorie controlled, cardiac. Will add ONS as needed, once better able to tolerate PO. Likely will benefit from small , frequent meals as noted suspected gastroparesis. Lab / Micro Data 11/10/23 04:08 11/10/23 04:08 Labs: Laboratory Results - last 24 hr 11/09/23 04:10: WBC 10.1, RBC 4.28, Hgb 13.9, Hct 40.4, MCV 94.4, MCH 32.5 H, MCHC 34.4, RDW Std Deviation 46.5 H, RDW Coeff of Whitney 13.6, Plt Count 264, MPV 11.1, Immature Gran % (Auto) 0.400, Neut % (Auto) 51.8, Lymph % (Auto) 35.6, [place] % (Auto) 11.2 H, Eos % (Auto) 0.3, Baso % (Auto) 0.7, Absolute Neuts (auto) 5.2, Absolute Lymphs (auto) 3.58, Nucleated RBC % 0 11/09/23 16:49: POC Glucose 241 H 11/09/23 21:20: POC Glucose 303 H 11/10/23 04:08: WBC 9.6, RBC 4.06 L, Hgb 13.3, Hct 37.7, MCV 92.9, MCH 32.8 H, MCHC 35.3, RDW Std Deviation 45.7 H, RDW Coeff of Whitney 13.3, Plt Count 250, MPV 10.3, Immature Gran % (Auto) 0.600, Neut % (Auto) 53.2, Lymph % (Auto) 35.1, [place] % (Auto) 10.7 H, Eos % (Auto) 0.1, Baso % (Auto) 0.3, Absolute Neuts (auto) 5.1, Absolute Lymphs (auto) 3.35, Nucleated RBC % 0, Sodium 137, Potassium 3.5, Chloride 106, Carbon Dioxide 18.0 L, Anion Gap 13, BUN 10, Creatinine 0.78, Estim Creat Clear Calc 114.37, Est GFR (MDRD) Af Amer 101, Est GFR (MDRD) Non-Af 83, BUN/Creatinine Ratio 12.8, Glucose 191 H, Calcium 8.7 Physical Exam Const alert and no apparent distress HEENT head/scalp atraumatic and moist oral mucous membranes Resp normal respiratory effort, no retractions, no use of accessory muscles and clear to auscultation bilaterally Cardio regular rate, regular rhythm, S1 normal heart sound and S2 normal heart sound GI normal to inspection, nondistended, normoactive bowel sounds, soft to palpation, non-tender and non-distended Neuro Sensorium / Orientation: awake Assessment & Plan Assessment/Plan (1) DKA (diabetic ketoacidosis): QUALIFIERS: Diabetes mellitus complication detail: without coma Diabetes mellitus type: type 2 Qualified Code(s): E11.10 - Type 2 diabetes mellitus with ketoacidosis without coma (2) Intractable nausea and vomiting: PLAN: Plan DKA * resolved * Patient was admitted with intractable nausea and vomiting and was found to be in DKA. * on lantus 35 units qhs and ISS. Gastroparesis * EGD non bleeding gastric ulcer, non bleeding. Biopsied. * started on metoclopramide * DC narcotics as may be potentiating her symptoms (informed patient) Vaginal candidiasis * received 1x dose of fluconazole. Chronic conditions: * CAD: On aspirin and Brilinta, Ranexa, Coreg, lisinopril and Imdur. Has an extensive history of CAD and had cardiac cath on 06/12/2023 with significant disease being found. She was transferred to [facility] and had PCI attempt previous PCI region. She was discharged. She came back to [facility] and was transferred to [facility] on 10/09/2023 and patient states that she is supposed to go back for repeat cardiac cath in about a week. Currently not having any chest pain. * hypertension: BP is poorly controlled as she has not been taking her meds in the hospital due to nausea. IV hydralazine prn. Continue PO carvedilol and lisinopril.IV hydralazine prn * Hypothyroidism: On Synthroid * Anxiety and depression: On bupropion and Ativan as well as lamotrigine. * Hyperlipidemia: On statin * COPD and asthma: Not in exacerbation. Breathing treatments bronchodilators. * Morbid obesity:BMI is 46.9. Complicates acute care, expected recovery and prognosis. * GERD: on PPI. * GEOVANI: on CPAP qhs. DVT prophylaxis: lovenox Charges/Coding Visit Charges Inpatient E&M: 18237 Subs Hosp L2
[2023-11-10] MEDS: 0.9% Saline Lock 10 ML Syringe IV ×5 (08:54→22:44)
[2023-11-10 10:38] VITALS: BP 151/111; PULSE 102; RESP 16; TEMP 36.3; O2SAT 99
[2023-11-10] MEDS: Pantoprazole Sodium 40 MG in 0.9% Normal Saline (100mL MB+) 100 ML 330 MG IV ×2 (10:48→21:12)
[2023-11-10] MEDS: Azithromycin 500 MG in Dextrose 5%-Water (250mL Bag) 250 ML 250 MG IV (11:32)
[2023-11-10 11:47] LABS: Bedside Glucose 168 mg/dL (74-106)
[2023-11-10 12:05] VITALS: BP 156/100; PULSE 111
[2023-11-10] MEDS: Carvedilol 25 MG Tablet PO (12:09)
[2023-11-10] MEDS: TICAGRELOR 90 MG TABLET PO ×2 (12:10→19:58)
[2023-11-10] MEDS: Aspirin 81 MG TAB.CHEW PO (12:10)
[2023-11-10] MEDS: Isosorbide Mononitrate 60 MG Tablet PO (12:10)
[2023-11-10] MEDS: lamoTRIgine 150 MG Tablet PO ×2 (12:10→20:00)
[2023-11-10] MEDS: Nystatin Powder 15gm Bottle 1 APPLIC TOPICAL ×2 (12:11→20:01)
[2023-11-10] MEDS: Ranolazine 500 MG Tablet PO ×2 (12:11→19:59)
[2023-11-10] MEDS: buPROPion (XL) 150 MG TABLET.XL PO (12:12)
[2023-11-10] MEDS: Senna Tablet 1 TABLET PO ×2 (12:12→20:01)
[2023-11-10] MEDS: buPROPion (XL) 300 MG TABLET.XL PO (12:12)
[2023-11-10] MEDS: Lisinopril 40 MG Tablet PO (12:12)
[2023-11-10] MEDS: lamoTRIgine 25 MG Tablet 50 MG PO (12:22)
[2023-11-10] MEDS: oxyCODONE 5 MG Tablet PO (13:08)
[2023-11-10 14:22] LABS: Bedside Glucose 207 mg/dL (74-106)
[2023-11-10 15:07] VITALS: BP 105/78; PULSE 98; RESP 16; TEMP 36.2; O2SAT 99
[2023-11-10] MEDS: Insulin Lispro 100 UNIT/ML INSULN.PEN 15 UNIT SC (16:43)
--- NOTE | 2023-11-10 17:07 | NURSING ---
1707 Report called to Geetha on MS3
[2023-11-10 17:08] LABS: Bedside Glucose 333 mg/dL (74-106)
--- NOTE | 2023-11-10 17:34 | PN.GI_ITS ---
Subjective Subjective Patient is doing a lot better. She underwent an upper endoscopy yesterday. She is tolerating a diet. She was started on metoclopramide prokinetics for the stomach yesterday. She was also started on azithromycin prokinetic for the small bowel. Blood sugars have been under better control. Objective Data Objective Data Vital Signs: Vital Signs Temp Pulse Resp BP Pulse Ox O2 Del Method 97.1 F L 98 16 105/78 99 Room Air 11/10/23 15:07 11/10/23 15:07 11/10/23 15:07 11/10/23 15:11/10/23 15:11/10/23 15:07 Oxygen Delivery Method Room Air Weight: 274 lb 4.081 oz Body Mass Index (BMI) 45.6 Intake & Output: Intake and Output for Last 24 Hours 11/08/23 11/09/23 11/10/23 23:59 23:59 23:59 Intake Total 1160 / 1160 475 / 475 365 / 365 Output Total 400 / 400 120 / 120 Balance 760 / 760 355 / 355 365 / 365 Medical Nutrition Assessment Dietitian: Malnutrition Criteria Met Start: 11/09/23 16:43 Freq: Status: Active Protocol: Document 11/09/23 16:43 RMA (Rec: 11/09/23 16:43 RMA [id number]) Nutrition Malnutrition Evidence of Malnutrition Exists Yes Malnutrition (severe): Acute Illness/Injury Evidenced By Suboptimal Energy Intake ( Severe),Weight Loss (Severe) Intake Problem Inadequate Oral Intake Etiology related to altered GI function , intractable N/V Signs/Symptoms as evidenced by current PO less than 25% meals Status Active Problem Clinical Problem Acute Disease or Injury Related Malnutrition Etiology severe protein-calorie malnutrition in the context of acute illness related to altered GI function, N/V Signs/Symptoms as evidenced by ~8% unintentional weight loss x 1 month, taking less than 25% meals and PO meeting less than 50% estimated nutrition needs x 1 week Status Active Problem Recommendation Dietitian Recommendations/Changes Will adjust diet to 1600 calorie controlled, cardiac. Will add ONS as needed, once better able to tolerate PO. Likely will benefit from small , frequent meals as noted suspected gastroparesis. Lab / Micro Data 11/10/23 04:08 11/10/23 04:08 Labs: Laboratory Results - last 24 hr 11/09/23 21:20: POC Glucose 303 H 11/10/23 04:08: WBC 9.6, RBC 4.06 L, Hgb 13.3, Hct 37.7, MCV 92.9, MCH 32.8 H, MCHC 35.3, RDW Std Deviation 45.7 H, RDW Coeff of Whitney 13.3, Plt Count 250, MPV 10.3, Immature Gran % (Auto) 0.600, Neut % (Auto) 53.2, Lymph % (Auto) 35.1, [place] % (Auto) 10.7 H, Eos % (Auto) 0.1, Baso % (Auto) 0.3, Absolute Neuts (auto) 5.1, Absolute Lymphs (auto) 3.35, Nucleated RBC % 0, Sodium 137, Potassium 3.5, Chloride 106, Carbon Dioxide 18.0 L, Anion Gap 13, BUN 10, Creatinine 0.78, Estim Creat Clear Calc 114.37, Est GFR (MDRD) Af Amer 101, Est GFR (MDRD) Non-Af 83, BUN/Creatinine Ratio 12.8, Glucose 191 H, Calcium 8.7 11/10/23 07:52: POC Glucose 168 H 11/10/23 12:07: POC Glucose 207 H 11/10/23 16:41: POC Glucose 333 H Physical Exam Const alert and no apparent distress HEENT head/scalp atraumatic and moist oral mucous membranes Resp normal respiratory effort, no retractions, no use of accessory muscles and clear to auscultation bilaterally Cardio regular rate, regular rhythm, S1 normal heart sound and S2 normal heart sound GI normal to inspection, nondistended, normoactive bowel sounds, soft to palpation, non-tender and non-distended Neuro Sensorium / Orientation: awake Assessment & Plan Assessment/Plan (1) DKA (diabetic ketoacidosis): QUALIFIERS: Diabetes mellitus type: type 2 Diabetes mellitus complication detail: without coma Qualified Code(s): E11.10 - Type 2 diabetes mellitus with ketoacidosis without coma (2) Intractable nausea and vomiting: PLAN: Plan DKA * Patient was admitted with intractable nausea and vomiting and was found to be in DKA. * DKA has resolved * on lantus 35 units qhs and ISS. * Intractable nausea and vomiting: * Patient still complains of nausea and vomiting despite being on Compazine and Zofran. * There was concern that she may have gastroparesis. She was also complaining of some upper abdominal pain. * She was placed on on IV pantoprazole and consult gastroenterology. IM Phenergan was added. She underwent an upper endoscopy: Findings: There was blood seen in the back of the mouth. The examined esophagus was normal. Five non-bleeding linear gastric ulcers with no stigmata of bleeding were found in the gastric body. The largest lesion was 10 mm in largest dimension. Biopsies were taken with a cold forceps for histology. Verification of patient identification for the specimen was done. Estimated blood loss was minimal. Biopsies were taken with a cold forceps for Helicobacter pylori testing. Verification of patient identification for the specimen was done. Estimated blood loss was minimal. The first portion of the duodenum was normal. Impression: - Normal esophagus. - Non-bleeding gastric ulcers with no stigmata of bleeding. Biopsied. - Normal first portion of the duodenum. Recommendation: - [facility]. - Resume previous diet. - Use metoclopramide 10 mg IV QID; - Azithromycin 500 mg IV daily - Continue present medications. Recommend to continue current medical therapy. If she is doing well and can be DC'd to home she will need to transition to oral metoclopramide every 4 hours for 3 weeks and azithromycin once a day for 10 days Charges/Coding Visit Charges Inpatient E&M: 80323 [place] [id number]
[2023-11-10 17:40] VITALS: BP 98/57; PULSE 100; RESP 18; TEMP 36.3; O2SAT 100
[2023-11-10] MEDS: Enoxaparin 40 MG/0.4 ML Syringe SC (19:57)
[2023-11-10] MEDS: Insulin Glargine-YFGN 100 UNIT/ML Pen 35 UNIT SC (19:58)
[2023-11-10 20:00] VITALS: BP 99/68; PULSE 113; RESP 18; TEMP 36.6; O2SAT 99
[2023-11-10] MEDS: Atorvastatin Calcium 80 MG Tablet PO (20:00)
[2023-11-10 20:34] LABS: Bedside Glucose 206 mg/dL (74-106)
[2023-11-10] MEDS: Ondansetron 4 MG/2 ML Vial IV (22:40)
[2023-11-10] MEDS: LORazepam 1 MG Tablet PO (22:40)
[2023-11-11] MEDS: 0.9% Saline Lock 10 ML Syringe IV ×5 (01:24→21:03)
[2023-11-11] MEDS: proCHLORPERazine 10 MG/2 ML Vial 5 MG IV ×2 (01:24→22:23)
[2023-11-11 02:00] VITALS: BP 139/81; PULSE 105; RESP 18; TEMP 36.7; O2SAT 100
[2023-11-11 04:27] VITALS: BMI 46.0
[2023-11-11] MEDS: Levothyroxine 100 MCG Tablet 200 MCG PO (05:16)
[2023-11-11] MEDS: Levothyroxine 75 MCG Tablet PO (05:17)
[2023-11-11] MEDS: Metoclopramide 10 MG/2 ML Vial IV ×3 (05:18→21:03)
[2023-11-11 08:35] LABS: Absolute Lymphocyte Count 3.62 X10^3/uL (0.83-4.51); Absolute Neutrophil Count 4.1 X10^3/uL (2.0-7.7); Basophil# 0.03 X10^3/uL; Basophil% 0.3 % (0-1); Eosinophils% 1.1 % (0-5); Hematocrit 41.7 % (37-47); Hemoglobin 14.6 g/dL (12.0-15.0); Lymphocyte # 3.62 X10^3/ul (0.83-4.51); Lymphocyte % 40.2 % (19-41); Mean Corpuscular Hgb 32.8 pg (27.0-32.0); Mean Corpuscular Volume 93.7 fL (81-99); Mean Platelet Vol. 11.2 fl (6.2-12.0); Monocyte# 1.07 X10^3/uL; Monocyte% 11.9 % (0-10); NRBC Flagged by Analyzer 0 % (0-5); Neutrophil # 4.13 X10^3/uL (2.7-7.7); Neutrophil % 45.8 % (47-70); Platelet Count 254 K/mm3 (150-450); RBC Distribution Width CV 13.3 % (11.6-14.6); Red Blood Count 4.45 M/mm3 (4.2-5.4)
--- NOTE | 2023-11-11 08:36 | PN.HOSP_ITS ---
Reason for Visit Reason for Visit: Diagnoses Type 2 diabetes mellitus with ketoacidosis without coma (11/06/23) Nausea with vomiting, unspecified (11/06/23) Subjective Subjective Tolerated some diet Objective Data Objective Data Vital Signs: Vital Signs Temp Pulse Resp BP Pulse Ox O2 Del Method 36.7 C 105 H 18 139/81 H 100 Room Air 11/11/23 02:00 11/11/23 02:00 11/11/23 02:00 11/11/23 02:00 11/11/23 02:00 11/11/23 02:00 Oxygen Delivery Method Room Air Weight: 125.5 kg Body Mass Index (BMI) 46.0 Intake & Output: Intake and Output for Last 24 Hours 11/09/23 11/10/23 11/11/23 23:59 23:59 23:59 Intake Total 475 / 475 475 / 475 Output Total 120 / 120 Balance 355 / 355 475 / 475 Medical Nutrition Assessment Dietitian: Malnutrition Criteria Met Start: 11/09/23 16:43 Freq: Status: Active Protocol: Document 11/09/23 16:43 RMA (Rec: 11/09/23 16:43 RMA [id number]) Nutrition Malnutrition Evidence of Malnutrition Exists Yes Malnutrition (severe): Acute Illness/Injury Evidenced By Suboptimal Energy Intake ( Severe),Weight Loss (Severe) Intake Problem Inadequate Oral Intake Etiology related to altered GI function , intractable N/V Signs/Symptoms as evidenced by current PO less than 25% meals Status Active Problem Clinical Problem Acute Disease or Injury Related Malnutrition Etiology severe protein-calorie malnutrition in the context of acute illness related to altered GI function, N/V Signs/Symptoms as evidenced by ~8% unintentional weight loss x 1 month, taking less than 25% meals and PO meeting less than 50% estimated nutrition needs x 1 week Status Active Problem Recommendation Dietitian Recommendations/Changes Will adjust diet to 1600 calorie controlled, cardiac. Will add ONS as needed, once better able to tolerate PO. Likely will benefit from small , frequent meals as noted suspected gastroparesis. Lab / Micro Data 11/11/23 06:55 11/10/23 04:08 Labs: Laboratory Results - last 24 hr 11/10/23 07:52: POC Glucose 168 H 11/10/23 12:07: POC Glucose 207 H 11/10/23 16:41: POC Glucose 333 H 11/10/23 19:55: POC Glucose 206 H 11/11/23 06:55: WBC 9.0, RBC 4.45, Hgb 14.6, Hct 41.7, MCV 93.7, MCH 32.8 H, MCHC 35.0, RDW Std Deviation 46.0 H, RDW Coeff of Whitney 13.3, Plt Count 254, MPV 11.2, Immature Gran % (Auto) 0.700, Neut % (Auto) 45.8 L, Lymph % (Auto) 40.2, [place] % (Auto) 11.9 H, Eos % (Auto) 1.1, Baso % (Auto) 0.3, Absolute Neuts (auto) 4.1, Absolute Lymphs (auto) 3.62, Nucleated RBC % 0 Physical Exam Const alert and no apparent distress HEENT head/scalp atraumatic and moist oral mucous membranes Resp normal respiratory effort and no retractions Cardio regular rate, regular rhythm, S1 normal heart sound and S2 normal heart sound GI normal to inspection, nondistended, normoactive bowel sounds, soft to palpation, non-tender and non-distended Extremity normal to inspection Assessment & Plan Assessment/Plan (1) DKA (diabetic ketoacidosis): QUALIFIERS: Diabetes mellitus complication detail: without coma Diabetes mellitus type: type 2 Qualified Code(s): E11.10 - Type 2 diabetes mellitus with ketoacidosis without coma (2) Intractable nausea and vomiting: PLAN: Plan DKA * resolved * Patient was admitted with intractable nausea and vomiting and was found to be in DKA. * on lantus 35 units qhs and ISS. Will increase glargine from 35 to 45. Continue prandial insulin 15 w meals. Gastroparesis * Improving * EGD non bleeding gastric ulcer, non bleeding. Biopsied. * started on metoclopramide * DC narcotics as may be potentiating her symptoms (informed patient) Vaginal candidiasis * received 1x dose of fluconazole. Chronic conditions: * CAD: On aspirin and Brilinta, Ranexa, Coreg, lisinopril and Imdur. Has an extensive history of CAD and had cardiac cath on 06/12/2023 with significant disease being found. She was transferred to [facility] and had PCI attempt previous PCI region. She was discharged. She came back to [facility] and was transferred to [facility] on 10/09/2023 and patient states that she is supposed to go back for repeat cardiac cath in about a week. Currently not having any chest pain. * hypertension: BP is poorly controlled as she has not been taking her meds in the hospital due to nausea. IV hydralazine prn. Continue PO carvedilol and lisinopril.IV hydralazine prn * Hypothyroidism: On Synthroid * Anxiety and depression: On bupropion and Ativan as well as lamotrigine. * Hyperlipidemia: On statin * COPD and asthma: Not in exacerbation. Breathing treatments bronchodilators. * Morbid obesity:BMI is 46.9. Complicates acute care, expected recovery and prognosis. * GERD: on PPI. * GEOVANI: on CPAP qhs. DVT prophylaxis: lovenox Charges/Coding Visit Charges Inpatient E&M: 89681 Subs Hosp L2
[2023-11-11 08:55] VITALS: BP 178/107; PULSE 103; RESP 18; TEMP 36.8; O2SAT 98
[2023-11-11] MEDS: Aspirin 81 MG TAB.CHEW PO (09:06)
[2023-11-11] MEDS: Acetaminophen 325 MG Tablet 650 MG PO (09:06)
[2023-11-11] MEDS: Lisinopril 40 MG Tablet PO (09:06)
[2023-11-11] MEDS: Isosorbide Mononitrate 60 MG Tablet PO (09:06)
[2023-11-11] MEDS: Senna Tablet 1 TABLET PO ×2 (09:06→20:13)
[2023-11-11] MEDS: Enoxaparin 40 MG/0.4 ML Syringe SC ×2 (09:07→20:05)
[2023-11-11] MEDS: Carvedilol 25 MG Tablet PO ×2 (09:07→16:22)
[2023-11-11] MEDS: Pantoprazole Sodium 40 MG in 0.9% Normal Saline (100mL MB+) 100 ML 330 MG IV ×2 (09:07→20:08)
[2023-11-11 09:08] VITALS: PULSE 103
[2023-11-11] MEDS: buPROPion (XL) 150 MG TABLET.XL PO (09:08)
[2023-11-11] MEDS: Nystatin Powder 15gm Bottle 1 APPLIC TOPICAL ×2 (09:08→20:10)
[2023-11-11] MEDS: hydrALAZINE 20 MG/ML Vial 10 MG IV (09:08)
[2023-11-11] MEDS: Ondansetron 4 MG/2 ML Vial IV (09:09)
[2023-11-11] MEDS: lamoTRIgine 25 MG Tablet 50 MG PO (09:10)
[2023-11-11] MEDS: TICAGRELOR 90 MG TABLET PO ×2 (09:10→20:08)
[2023-11-11] MEDS: lamoTRIgine 150 MG Tablet PO ×2 (09:10→20:09)
[2023-11-11] MEDS: Ranolazine 500 MG Tablet PO ×2 (09:11→20:09)
[2023-11-11] MEDS: Insulin Lispro 100 UNIT/ML INSULN.PEN SC ×4 (09:11→20:17)
[2023-11-11] MEDS: buPROPion (XL) 300 MG TABLET.XL PO (09:11)
[2023-11-11] MEDS: 0.9% Normal Saline (250mL Bag) 250 ML 15 ML IV (09:23)
[2023-11-11 09:37] LABS: Bedside Glucose 180 mg/dL (74-106)
[2023-11-11] MEDS: Azithromycin 500 MG in Dextrose 5%-Water (250mL Bag) 250 ML 250 MG IV (10:46)
[2023-11-11] MEDS: Insulin Lispro 100 UNIT/ML INSULN.PEN 15 UNIT SC ×2 (12:05→16:22)
[2023-11-11 12:06] LABS: Bedside Glucose 256 mg/dL (74-106)
[2023-11-11 14:42] VITALS: BP 103/65; PULSE 103; RESP 18; TEMP 37.1; O2SAT 98
[2023-11-11 16:42] LABS: Bedside Glucose 339 mg/dL (74-106)
[2023-11-11] MEDS: Atorvastatin Calcium 80 MG Tablet PO (20:08)
[2023-11-11] MEDS: Insulin Glargine-YFGN 100 UNIT/ML Pen 45 UNIT SC (20:19)
[2023-11-11 20:46] LABS: Bedside Glucose 330 mg/dL (74-106)
[2023-11-11 21:00] VITALS: BP 113/79; PULSE 96; RESP 18; TEMP 36.9; O2SAT 100
[2023-11-11] MEDS: LORazepam 1 MG Tablet PO (22:19)
[2023-11-12] MEDS: Levothyroxine 75 MCG Tablet PO (05:29)
[2023-11-12] MEDS: Levothyroxine 100 MCG Tablet 200 MCG PO (05:30)
[2023-11-12] MEDS: Metoclopramide 10 MG/2 ML Vial IV ×3 (05:30→21:25)
[2023-11-12 05:43] VITALS: BP 106/58; PULSE 88; RESP 16; TEMP 36.5; O2SAT 100
[2023-11-12 06:00] VITALS: BMI 45.9
[2023-11-12 07:27] LABS: Absolute Lymphocyte Count 4.77 X10^3/uL (0.83-4.51); Absolute Neutrophil Count 2.8 X10^3/uL (2.0-7.7); Basophil# 0.06 X10^3/uL; Basophil% 0.7 % (0-1); Eosinophil# 0.19 X10^3/uL; Eosinophils% 2.1 % (0-5); Hematocrit 40.4 % (37-47); Hemoglobin 13.7 g/dL (12.0-15.0); Lymphocyte # 4.77 X10^3/ul (0.83-4.51); Lymphocyte % 53.5 % (19-41); Mean Corp Hgb Conc 33.9 g/dL (32-36); Mean Corpuscular Hgb 31.7 pg (27.0-32.0); Mean Corpuscular Volume 93.5 fL (81-99); Mean Platelet Vol. 11.4 fl (6.2-12.0); Monocyte# 1.04 X10^3/uL; Monocyte% 11.7 % (0-10); NRBC Flagged by Analyzer 0 % (0-5); Neutrophil # 2.81 X10^3/uL (2.7-7.7); Neutrophil % 31.4 % (47-70); Platelet Count 239 K/mm3 (150-450); RBC Distribution Width CV 13.2 % (11.6-14.6); Red Blood Count 4.32 M/mm3 (4.2-5.4); White Blood Count 8.9 K/mm3 (4.4-11.0)
[2023-11-12] MEDS: proCHLORPERazine 10 MG/2 ML Vial 5 MG IV ×2 (07:56→16:35)
[2023-11-12] MEDS: 0.9% Saline Lock 10 ML Syringe IV ×3 (08:04→16:35)
[2023-11-12] MEDS: Insulin Lispro 100 UNIT/ML INSULN.PEN SC ×3 (08:19→21:17)
[2023-11-12] MEDS: Carvedilol 25 MG Tablet PO ×2 (08:20→17:32)
[2023-11-12] MEDS: Aspirin 81 MG TAB.CHEW PO (08:20)
[2023-11-12] MEDS: lamoTRIgine 25 MG Tablet 50 MG PO (08:21)
[2023-11-12] MEDS: Isosorbide Mononitrate 60 MG Tablet PO (08:21)
[2023-11-12] MEDS: TICAGRELOR 90 MG TABLET PO ×2 (08:21→21:15)
[2023-11-12] MEDS: Enoxaparin 40 MG/0.4 ML Syringe SC ×2 (08:22→21:15)
[2023-11-12] MEDS: Nystatin Powder 15gm Bottle 1 APPLIC TOPICAL (08:23)
[2023-11-12] MEDS: Ranolazine 500 MG Tablet PO ×2 (08:24→21:18)
[2023-11-12] MEDS: buPROPion (XL) 300 MG TABLET.XL PO (08:25)
[2023-11-12] MEDS: Lisinopril 40 MG Tablet PO (08:25)
[2023-11-12 08:35] VITALS: BP 167/99; PULSE 92; RESP 18; TEMP 36.5; O2SAT 97
[2023-11-12] MEDS: Pantoprazole Sodium 40 MG in 0.9% Normal Saline (100mL MB+) 100 ML 330 MG IV ×2 (08:47→21:25)
[2023-11-12] MEDS: Senna Tablet 1 TABLET PO ×2 (08:47→21:16)
[2023-11-12 09:55] LABS: Bedside Glucose 167 mg/dL (74-106)
[2023-11-12] MEDS: proMETHazine 25 MG/ML Syringe 12.5 MG IM (10:46)
[2023-11-12] MEDS: Azithromycin 500 MG in Dextrose 5%-Water (250mL Bag) 250 ML 250 MG IV (10:49)
[2023-11-12 12:23] LABS: Bedside Glucose 201 mg/dL (74-106)
[2023-11-12] MEDS: Ondansetron 4 MG/2 ML Vial IV (12:40)
--- NOTE | 2023-11-12 14:07 | CASEMGMT ---
Social Work- SW met with pt to discuss directives. Pt indicated that she would like assistance in completing HCPOA, however, is not feeling well at the current time and would like SW to come back later to complete. BEE Longo
--- NOTE | 2023-11-12 14:38 | PN.HOSP_ITS ---
Reason for Visit Reason for Visit: Diagnoses Type 2 diabetes mellitus with ketoacidosis without coma (11/06/23) Nausea with vomiting, unspecified (11/06/23) Subjective Subjective Not tolerating much diet. Objective Data Objective Data Vital Signs: Vital Signs Temp Pulse Resp BP Pulse Ox O2 Del Method 36.5 C L 92 18 167/99 H 97 Room Air 11/12/23 08:35 11/12/23 08:35 11/12/23 08:35 11/12/23 08:35 11/12/23 08:35 11/12/23 08:35 Oxygen Delivery Method Room Air Weight: 125.3 kg Body Mass Index (BMI) 45.9 Intake & Output: Intake and Output for Last 24 Hours 11/10/23 11/11/23 11/12/23 23:59 23:59 23:59 Intake Total 475 / 475 530.75 / 530.75 365 / 365 Balance 475 / 475 530.75 / 530.75 365 / 365 Medical Nutrition Assessment Dietitian: Malnutrition Criteria Met Start: 11/09/23 16:43 Freq: Status: Active Protocol: Document 11/09/23 16:43 RMA (Rec: 11/09/23 16:43 RMA [id number]) Nutrition Malnutrition Evidence of Malnutrition Exists Yes Malnutrition (severe): Acute Illness/Injury Evidenced By Suboptimal Energy Intake ( Severe),Weight Loss (Severe) Intake Problem Inadequate Oral Intake Etiology related to altered GI function , intractable N/V Signs/Symptoms as evidenced by current PO less than 25% meals Status Active Problem Clinical Problem Acute Disease or Injury Related Malnutrition Etiology severe protein-calorie malnutrition in the context of acute illness related to altered GI function, N/V Signs/Symptoms as evidenced by ~8% unintentional weight loss x 1 month, taking less than 25% meals and PO meeting less than 50% estimated nutrition needs x 1 week Status Active Problem Recommendation Dietitian Recommendations/Changes Will adjust diet to 1600 calorie controlled, cardiac. Will add ONS as needed, once better able to tolerate PO. Likely will benefit from small , frequent meals as noted suspected gastroparesis. Lab / Micro Data 11/12/23 06:35 11/10/23 04:08 Labs: Laboratory Results - last 24 hr 11/11/23 16:20: POC Glucose 339 H 11/11/23 20:16: POC Glucose 330 H 11/12/23 06:35: WBC 8.9, RBC 4.32, Hgb 13.7, Hct 40.4, MCV 93.5, MCH 31.7, MCHC 33.9, RDW Std Deviation 45.0 H, RDW Coeff of Whitney 13.2, Plt Count 239, MPV 11.4, Immature Gran % (Auto) 0.600, Neut % (Auto) 31.4 L, Lymph % (Auto) 53.5 H, [place] % (Auto) 11.7 H, Eos % (Auto) 2.1, Baso % (Auto) 0.7, Absolute Neuts (auto) 2.8, Absolute Lymphs (auto) 4.77 H, Nucleated RBC % 0 11/12/23 07:49: POC Glucose 167 H 11/12/23 12:04: POC Glucose 201 H Physical Exam Const alert and no apparent distress HEENT head/scalp atraumatic and moist oral mucous membranes Resp normal respiratory effort and no retractions Cardio regular rate, regular rhythm, S1 normal heart sound and S2 normal heart sound GI normal to inspection, nondistended, normoactive bowel sounds, soft to palpation, non-tender and non-distended Neuro Sensorium / Orientation: awake and alert Assessment & Plan Assessment/Plan (1) DKA (diabetic ketoacidosis): QUALIFIERS: Diabetes mellitus type: type 2 Diabetes mellitus complication detail: without coma Qualified Code(s): E11.10 - Type 2 diabetes mellitus with ketoacidosis without coma (2) Intractable nausea and vomiting: PLAN: Plan DKA * resolved * Patient was admitted with intractable nausea and vomiting and was found to be in DKA. * on lantus 35 units qhs and ISS. Will increase glargine from 35 to 45. Continue prandial insulin 15 w meals. Gastroparesis * Improved overall, but not tolerating much diet. * EGD non bleeding gastric ulcer, non bleeding. Biopsied. * started on metoclopramide * Narcotics dc'd as may be potentiating her symptoms (informed patient) * No recent marijuana use. Advised against use as it may potentiate her gastroparesis. Vaginal candidiasis * received 1x dose of fluconazole. Chronic conditions: * CAD: On aspirin and Brilinta, Ranexa, Coreg, lisinopril and Imdur. Has an extensive history of CAD and had cardiac cath on 06/12/2023 with significant disease being found. She was transferred to [facility] and had PCI attempt previous PCI region. She was discharged. She came back to [facility] and was transferred to [facility] on 10/09/2023 and patient states that she is supposed to go back for repeat cardiac cath in about a week. Currently not having any chest pain. * hypertension: BP is poorly controlled as she has not been taking her meds in the hospital due to nausea. IV hydralazine prn. Continue PO carvedilol and lisinopril.IV hydralazine prn * Hypothyroidism: On Synthroid * Anxiety and depression: On bupropion and Ativan as well as lamotrigine. * Hyperlipidemia: On statin * COPD and asthma: Not in exacerbation. Breathing treatments bronchodilators. * Morbid obesity:BMI is 46.9. Complicates acute care, expected recovery and prognosis. * GERD: on PPI. * GEOVANI: on CPAP qhs. DVT prophylaxis: lovenox Charges/Coding Visit Charges Inpatient E&M: 69159 Subs Hosp L2
[2023-11-12 14:49] VITALS: BP 150/84; PULSE 92; RESP 16; TEMP 37.1; O2SAT 97
[2023-11-12 16:46] LABS: Bedside Glucose 193 mg/dL (74-106)
--- NOTE | 2023-11-12 17:38 | PN.GI_ITS ---
Subjective Subjective Patient is feeling a lot better today. She is tolerating a diet and her blood sugars continue to improve. Objective Data Objective Data Vital Signs: Vital Signs Temp Pulse Resp BP Pulse Ox O2 Del Method 98.7 F 92 16 150/84 H 97 Room Air 11/12/23 14:49 11/12/23 14:49 11/12/23 14:49 11/12/23 14:49 11/12/23 14:49 11/12/23 14:49 Oxygen Delivery Method Room Air Weight: 276 lb 3.827 oz Body Mass Index (BMI) 45.9 Intake & Output: Intake and Output for Last 24 Hours 11/10/23 11/11/23 11/12/23 23:59 23:59 23:59 Intake Total 475 / 475 530.75 / 530.75 665 / 665 Balance 475 / 475 530.75 / 530.75 665 / 665 Medical Nutrition Assessment Dietitian: Malnutrition Criteria Met Start: 11/09/23 16:43 Freq: Status: Active Protocol: Document 11/12/23 15:41 AG (Rec: 11/12/23 15:41 AG [id number]) Nutrition Malnutrition Evidence of Malnutrition Exists Yes Malnutrition (severe): Acute Illness/Injury Evidenced By Suboptimal Energy Intake ( Severe),Weight Loss (Severe) Intake Problem Inadequate Oral Intake Etiology related to altered GI function , intractable N/V Signs/Symptoms as evidenced by current PO intake less than 25% of meals Status Active Problem Clinical Problem Acute Disease or Injury Related Malnutrition Etiology severe protein-calorie malnutrition in the context of acute illness related to altered GI function, N/V Signs/Symptoms as evidenced by ~5% unintentional weight loss x 1 month, PO intake meeting less than 50% estimated nutrition needs > 1 week Status Active Problem Recommendation Dietitian Recommendations/Changes continue 1600 calorie controlled, cardiac diet as tolerated; will add glucerna 120mL 4x/day d/t poor PO intake Will benefit from small, frequent meals as noted suspected gastroparesis. Lab / Micro Data 11/12/23 06:35 11/10/23 04:08 Labs: Laboratory Results - last 24 hr 11/11/23 20:16: POC Glucose 330 H 11/12/23 06:35: WBC 8.9, RBC 4.32, Hgb 13.7, Hct 40.4, MCV 93.5, MCH 31.7, MCHC 33.9, RDW Std Deviation 45.0 H, RDW Coeff of Whitney 13.2, Plt Count 239, MPV 11.4, Immature Gran % (Auto) 0.600, Neut % (Auto) 31.4 L, Lymph % (Auto) 53.5 H, [place] % (Auto) 11.7 H, Eos % (Auto) 2.1, Baso % (Auto) 0.7, Absolute Neuts (auto) 2.8, Absolute Lymphs (auto) 4.77 H, Nucleated RBC % 0 11/12/23 07:49: POC Glucose 167 H 11/12/23 12:04: POC Glucose 201 H 11/12/23 16:24: POC Glucose 193 H Physical Exam Const alert and no apparent distress HEENT head/scalp atraumatic and moist oral mucous membranes Resp normal respiratory effort and no retractions Cardio regular rate, regular rhythm, S1 normal heart sound and S2 normal heart sound GI normal to inspection, nondistended, normoactive bowel sounds, soft to palpation, non-tender and non-distended Neuro Sensorium / Orientation: awake and alert Assessment & Plan Assessment/Plan (1) DKA (diabetic ketoacidosis): QUALIFIERS: Diabetes mellitus type: type 2 Diabetes mellitus complication detail: without coma Qualified Code(s): E11.10 - Type 2 diabetes mellitus with ketoacidosis without coma (2) Intractable nausea and vomiting: PLAN: Plan DKA * Patient was admitted with intractable nausea and vomiting and was found to be in DKA. * DKA has resolved * on lantus 35 units qhs and ISS. * Intractable nausea and vomiting: * Patient still complains of nausea and vomiting despite being on Compazine and Zofran. * There was concern that she may have gastroparesis. She was also complaining of some upper abdominal pain. * She was placed on on IV pantoprazole and consult gastroenterology. IM Phenergan was added. She underwent an upper endoscopy: Findings: There was blood seen in the back of the mouth. The examined esophagus was normal. Five non-bleeding linear gastric ulcers with no stigmata of bleeding were found in the gastric body. The largest lesion was 10 mm in largest dimension. Biopsies were taken with a cold forceps for histology. Verification of patient identification for the specimen was done. Estimated blood loss was minimal. Biopsies were taken with a cold forceps for Helicobacter pylori testing. Verification of patient identification for the specimen was done. Estimated blood loss was minimal. The first portion of the duodenum was normal. Impression: - Normal esophagus. - Non-bleeding gastric ulcers with no stigmata of bleeding. Biopsied. - Normal first portion of the duodenum. Recommendation: - [facility]. - Resume previous diet. - Use metoclopramide 10 mg IV QID; - Azithromycin 500 mg IV daily - Continue present medications. Recommend to continue current medical therapy. If she is doing well and can be DC'd to home she will need to transition to oral metoclopramide every 4 hours for 3 weeks and azithromycin once a day for 10 days 11/12/23- Pathology from her recent upper endoscopy gastric ulcer, biopsy: Fragments of gastric mucosa with moderate chronic inflammation and mild acute inflammation. Fragments of food particles. Focal intestinal metaplasia (goblet cell metaplasia). Alcian blue/PAS stain with matched control is used in the evaluation of the specimen. Fragments of food particle also show focal bacterial colonization. Special stain for fungi is positive for organisms in the area of food particles (yeast and pseudohypae), consistent with Lauren species; matched control is appropriate. The results of immunohistochemistry for Helicobacter pylori will be reported separately She will need treatment for Lauren. She will also need to have repeat upper endoscopy as she has focal intestinal metaplasia which can be associated with dysplasia and subsequently turning into gastric cancer. Continue medical therapy for resolution of ulcer and she will need a follow-up endoscopy. Specimen is H. pylori negative. Charges/Coding Visit Charges Inpatient E&M: 30525 Subs Hosp L3
[2023-11-12] MEDS: Fluconazole 100 MG Tablet 200 MG PO (18:09)
[2023-11-12] MEDS: Insulin Lispro 100 UNIT/ML INSULN.PEN 15 UNIT SC (18:17)
[2023-11-12 21:08] VITALS: BP 113/60; PULSE 100; RESP 16; TEMP 36.4; O2SAT 98
[2023-11-12] MEDS: Atorvastatin Calcium 80 MG Tablet PO (21:16)
[2023-11-12] MEDS: lamoTRIgine 150 MG Tablet PO (21:16)
[2023-11-12] MEDS: Insulin Glargine-YFGN 100 UNIT/ML Pen 45 UNIT SC (21:17)
[2023-11-12 22:05] LABS: Bedside Glucose 233 mg/dL (74-106)
[2023-11-13 04:00] VITALS: BMI 46.0
[2023-11-13] MEDS: Metoclopramide 10 MG/2 ML Vial IV (06:26)
[2023-11-13] MEDS: Levothyroxine 75 MCG Tablet PO (06:26)
[2023-11-13] MEDS: Levothyroxine 100 MCG Tablet 200 MCG PO (06:26)
[2023-11-13] MEDS: Insulin Lispro 100 UNIT/ML INSULN.PEN SC ×2 (06:32→11:50)
[2023-11-13] MEDS: Insulin Lispro 100 UNIT/ML INSULN.PEN 15 UNIT SC ×2 (06:32→11:49)
[2023-11-13 06:34] VITALS: BP 115/66; PULSE 83; RESP 16; TEMP 36.6; O2SAT 100
[2023-11-13 07:14] LABS: Bedside Glucose 201 mg/dL (74-106)
[2023-11-13 07:16] LABS: Absolute Lymphocyte Count 4.25 X10^3/uL (0.83-4.51); Basophil# 0.05 X10^3/uL; Basophil% 0.6 % (0-1); Eosinophil# 0.22 X10^3/uL; Eosinophils% 2.6 % (0-5); Hematocrit 40.8 % (37-47); Hemoglobin 14.4 g/dL (12.0-15.0); Lymphocyte # 4.25 X10^3/ul (0.83-4.51); Lymphocyte % 49.6 % (19-41); Mean Corp Hgb Conc 35.3 g/dL (32-36); Mean Corpuscular Hgb 32.7 pg (27.0-32.0); Mean Corpuscular Volume 92.7 fL (81-99); Mean Platelet Vol. 11.5 fl (6.2-12.0); Monocyte# 0.97 X10^3/uL; Monocyte% 11.3 % (0-10); NRBC Flagged by Analyzer 0 % (0-5); Neutrophil # 3.03 X10^3/uL (2.7-7.7); Neutrophil % 35.4 % (47-70); Platelet Count 249 K/mm3 (150-450); RBC Distribution Width CV 13.3 % (11.6-14.6); White Blood Count 8.6 K/mm3 (4.4-11.0)
--- NOTE | 2023-11-13 07:53 | CASEMGMT ---
Social Work- SW met with pt to discuss advanced directives. Pt does not have HCPOA and Living Will, but would like to complete if she is feeling up to it at a later date. BEE Longo
[2023-11-13 08:25] VITALS: BP 109/86; PULSE 87; RESP 18; TEMP 36.3; O2SAT 100
[2023-11-13] MEDS: lamoTRIgine 25 MG Tablet 50 MG PO (08:28)
[2023-11-13] MEDS: Ranolazine 500 MG Tablet PO (08:29)
[2023-11-13] MEDS: buPROPion (XL) 300 MG TABLET.XL PO (08:29)
[2023-11-13] MEDS: Lisinopril 40 MG Tablet PO (08:29)
[2023-11-13] MEDS: buPROPion (XL) 150 MG TABLET.XL PO (08:29)
[2023-11-13] MEDS: Senna Tablet 1 TABLET PO (08:29)
[2023-11-13] MEDS: Isosorbide Mononitrate 60 MG Tablet PO (08:29)
[2023-11-13] MEDS: Aspirin 81 MG TAB.CHEW PO (08:30)
[2023-11-13] MEDS: lamoTRIgine 150 MG Tablet PO (08:30)
[2023-11-13] MEDS: TICAGRELOR 90 MG TABLET PO (08:30)
[2023-11-13] MEDS: Carvedilol 25 MG Tablet PO (08:30)
[2023-11-13] MEDS: Fluconazole 100 MG Tablet 200 MG PO (08:31)
[2023-11-13] MEDS: Nystatin Powder 15gm Bottle 1 APPLIC TOPICAL (08:31)
[2023-11-13] MEDS: Pantoprazole Sodium 40 MG in 0.9% Normal Saline (100mL MB+) 100 ML 330 MG IV (09:55)
[2023-11-13] MEDS: 0.9% Saline Lock 10 ML Syringe IV (09:55)
--- NOTE | 2023-11-13 10:40 | PCM.DC.SUM ---
Providers Date of Admission: 11/06/23 Primary Care Physician: Dr. Carlotta Galindo MD Consultations 11/06/23 03:34 Consult: Flaking Roll Operator / Pulmonary Medicine Routine Consulting Provider: Intensivists/Pulmonary Med Reason for Consult: DKA EMERGENT Consult: No Notified: Yes Date Notified: 11/06/23 Time Notified: 03:29 Method of Notification: Text 11/06/23 12:08 Consult: Flaking Roll Operator / Pulmonary Medicine Routine Consulting Provider: Intensivists/Pulmonary Med Reason for Consult: DKA, refractory to treatment EMERGENT Consult: No Notified: Yes Date Notified: 11/06/23 Time Notified: 12:08 Method of Notification: Verbal 11/08/23 09:53 Consult: Gastroenterology Routine Consulting Provider: [facility] Reason for Consult: probable gastroparesis EMERGENT Consult: No Notified: Yes Date Notified: 11/08/23 Time Notified: 09:53 Method of Notification: Text Reason For Visit: SUSPECTED DKA, INTRACTABLE N/V Diagnosis Discharge Diagnosis (1) DKA (diabetic ketoacidosis): Status: Acute Code(s): E11.10 - Type 2 diabetes mellitus with ketoacidosis without coma Qualifiers: Diabetes mellitus type: type 2 Diabetes mellitus complication detail: without coma Qualified Code(s): E11.10 - Type 2 diabetes mellitus with ketoacidosis without coma (2) Intractable nausea and vomiting: Status: Acute Code(s): R11.2 - Nausea with vomiting, unspecified Plan DKA resolved Patient was admitted with intractable nausea and vomiting and was found to be in DKA. on lantus 35 units qhs and ISS. Will increase glargine from 35 to 45. Continue prandial insulin 15 w meals. Gastroparesis Improved overall, but not tolerating much diet. EGD non bleeding gastric ulcer, non bleeding. Biopsied. started on metoclopramide Narcotics dc'd as may be potentiating her symptoms (informed patient) No recent marijuana use. Advised against use as it may potentiate her gastroparesis. Vaginal candidiasis received 1x dose of fluconazole. Chronic conditions: CAD: On aspirin and Brilinta, Ranexa, Coreg, lisinopril and Imdur. Has an extensive history of CAD and had cardiac cath on 06/12/2023 with significant disease being found. She was transferred to [facility] main campus and had PCI attempt previous PCI region. She was discharged. She came back to [facility] and was transferred to [facility] on 10/09/2023 and patient states that she is supposed to go back for repeat cardiac cath in about a week. Currently not having any chest pain. hypertension: BP is poorly controlled as she has not been taking her meds in the hospital due to nausea. IV hydralazine prn. Continue PO carvedilol and lisinopril.IV hydralazine prn Hypothyroidism: On Synthroid Anxiety and depression: On bupropion and Ativan as well as lamotrigine. Hyperlipidemia: On statin COPD and asthma: Not in exacerbation. Breathing treatments bronchodilators. Morbid obesity:BMI is 46.9. Complicates acute care, expected recovery and prognosis. GERD: on PPI. GEOVANI: on CPAP qhs. DVT prophylaxis: lovenox Medications at Discharge Home Medications albuterol sulfate 90 mcg/actuation aerosol inhaler 1 - 2 puff inhalation Q4H PRN PRN Wheezing ##1 10/15/15 budesonide-formoterol HFA 160 mcg-4.5 mcg/actuation aerosol inhaler 2 puff PO BID breathing 05/07/19 bupropion HCl 300 mg 24 hr tablet, extended release 300 mg PO DAILY MOOD 09/25/20 lorazepam 1 mg tablet 0.5 - 1 mg PO TID PRN Anxiety 04/24/21 atorvastatin 80 mg tablet 80 mg PO QHS cholesterol #90 tabs 03/25/22 levothyroxine 200 mcg tablet 200 mcg PO DAILY 03/25/22 levothyroxine 75 mcg tablet 75 mcg PO DAILY 03/25/22 bupropion HCl 150 mg 24 hr tablet, extended release 150 mg PO DAILY 04/06/23 carvedilol 25 mg tablet 25 mg PO Q12H 04/06/23 levothyroxine 300 mcg tablet 300 mcg PO .thursday04/06/23 blood pressure monitor #1 ea 04/30/23 lisinopril 40 mg tablet 40 mg PO DAILY blood pressure #90 tabs 04/30/23 nitroglycerin 0.4 mg sublingual tablet 0.4 mg sublingual Q5-15M PRN chest pain #25 tabs 04/30/23 ticagrelor 90 mg tablet (Brilinta) See Rx Instructions .Route .COMPLEX #180 tabs 05/15/23 blood sugar diagnostic (OneTouch Verio test strips) 10/06/23 blood-glucose meter (OneTouch Verio Flex Meter) 10/06/23 flash glucose sensor (FreeStyle Konstantin 2 Sensor kit) 10/06/23 insulin syringe-needle U-100 0.5 mL 31 gauge x 5/16 (BD Insulin Syringe Ultra-Fine) 10/06/23 isosorbide mononitrate 60 mg tablet,extended release 24 hr 60 mg PO DAILY 10/06/23 lamotrigine 150 mg tablet 150 mg PO BID 10/06/23 lamotrigine 25 mg tablet 50 mg PO DAILY 10/06/23 lancets 33 gauge (Unilet Lancet) 10/06/23 ranolazine 500 mg tablet,extended release,12 hr 500 mg PO BID 10/06/23 insulin lispro 100 unit/mL subcutaneous pen (Humalog KwikPen (U-100) Insulin) See Protocol subcut ACHS #0 mL 10/09/23 sennosides 8.6 mg tablet (senna) 8.6 mg PO BID #0 tabs 10/09/23 insulin lispro 100 unit/mL subcutaneous pen (Humalog KwikPen (U-100) Insulin) 15 unit subcut TIDAC 11/05/23 acetaminophen 325 mg tablet 1,000 mg (3.0769 x 325 mg) PO Q8H PRN Fever, pain 1-04/14 #0 tabs 11/13/23 azithromycin 500 mg tablet 500 mg PO DAILY #5 tabs 11/13/23 insulin glargine-yfgn 100 unit/mL (3 mL) subcutaneous pen 45 unit (0.45 mL) subcut QHS #15 mL 11/13/23 metoclopramide HCl 10 mg tablet 10 mg PO Q8H PRN nausea and vomiting #48 tabs 11/13/23 ondansetron 4 mg disintegrating tablet 4 mg PO Q8H PRN nausea and vomiting #10 tabs 11/13/23 pantoprazole 40 mg tablet,delayed release 40 mg PO BIDCM acid reflux #30 tabs 11/13/23 Hospital Course Operations None Procedures None Summary of Care Provided Minutes Spent on Discharge: 32 Hospital Course: Patient presents for DKA. She received insulin drip and I did recover but her hospitalization was further complicated by gastroparesis. Patient did undergo an EGD that was unremarkable but she did have a nonbleeding gastric ulcer. Patient was started on metoclopramide as well as azithromycin to help with gastroparesis. Did not seem to get any better until she had a bowel movement which she is felt better since is currently tolerating diet. She will be discharged with a 10-day course of azithromycin and 3 weeks of metoclopramide. Patient advised of the risks of tardive dyskinesia with metoclopramide. Told her that would be unlikely with her short course of the medication but did tell her if she is having abnormal movements of her face or tongue, to notify physician and discontinue the metoclopramide immediately. Physical Exam Const alert and no apparent distress Constitutional Narrative: Look better overall. Abdomen is soft nontender nondistended with normal bowel sounds. Medical Records Data Medical Nutrition Assessment Dietitian: Malnutrition Criteria Met Start: 11/09/23 16:43 Freq: Status: Active Protocol: Document 11/12/23 15:41 (Rec: 11/12/23 15:41 [id number]) Nutrition Malnutrition Evidence of Malnutrition Exists Yes Malnutrition (severe): Acute Illness/Injury Evidenced By Suboptimal Energy Intake ( Severe),Weight Loss (Severe) Intake Problem Inadequate Oral Intake Etiology related to altered GI function , intractable N/V Signs/Symptoms as evidenced by current PO intake less than 25% of meals Status Active Problem Clinical Problem Acute Disease or Injury Related Malnutrition Etiology severe protein-calorie malnutrition in the context of acute illness related to altered GI function, N/V Signs/Symptoms as evidenced by ~5% unintentional weight loss x 1 month, PO intake meeting less than 50% estimated nutrition needs > 1 week Status Active Problem Recommendation Dietitian Recommendations/Changes continue 1600 calorie controlled, cardiac diet as tolerated; will add glucerna 120mL 4x/day d/t poor PO intake Will benefit from small, frequent meals as noted suspected gastroparesis. Weight / BMI Weight Weight: 125.3 kg Body Mass Index (BMI) 46.0 ABG / Lab / Microbiology Data 11/13/23 06:00 11/10/23 04:08 Laboratory: Laboratory Results - last 24 hr 11/12/23 12:04: POC Glucose 201 H 11/12/23 16:24: POC Glucose 193 H 11/12/23 21:13: POC Glucose 233 H 11/13/23 06:00: WBC 8.6, RBC 4.40, Hgb 14.4, Hct 40.8, MCV 92.7, MCH 32.7 H, MCHC 35.3, RDW Std Deviation 45.0 H, RDW Coeff of Whitney 13.3, Plt Count 249, MPV 11.5, Immature Gran % (Auto) 0.500, Neut % (Auto) 35.4 L, Lymph % (Auto) 49.6 H, [place] % (Auto) 11.3 H, Eos % (Auto) 2.6, Baso % (Auto) 0.6, Absolute Neuts (auto) 3.0, Absolute Lymphs (auto) 4.25, Nucleated RBC % 0 11/13/23 06:32: POC Glucose 201 H D/C Instructions Discharge Diet: 2000 Calorie Control Diet Meaningful Use Info Meaningful Use Meaningful Use Diagnoses (Choose all that apply): None applicable Ischemic Stroke Statin Dosing Therapy Reference: STATIN DOSE THERAPY REFERENCE: * Patients > 75 years receive moderate or high dose statin therapy. * Patients 75 years or YOUNGER should receive HIGH intensity statin dose unless contraindicated. You will be required to document reason for non-treatment if statin daily dose does not meet guidelines. HIGH DOSE STATIN THERAPY DAILY Atorvastatin > than or = to 40 mg Rosuvastatin > than or = to 20 mg Amlodipine + Atorvastatin > than or = to 2.5/40 mg Ezetimibe + Simvastatin 10/80 mg Simvastatin 80mg Discharge Plan Admission Admit Date/Time: 11/06/23 02:05 Primary Reason for Your Visit: Diabetic ketoacidosis. Gastroparesis. Attending Provider: Abrahan Johnson Primary Care Provider: Carlotta Galindo Consulting Providers: Suzanne Chowdhury; Shanti Infante Instructions Additional Instructions / Restrictions: Ear diabetic ketoacidosis was resolved with insulin drip. Please continue with your insulin regimen as documented. Your course was also complicated by diabetic gastroparesis. You will be on 3 weeks of metoclopramide (also known as Reglan) and azithromycin. Azithromycin is an antibiotic but for your case this is being used for your gastroparesis. Discharge Orders/Prescriptions Prescriptions: New acetaminophen 325 mg Tablet 1,000 mg PO Q8H PRN (Reason: Fever, pain 1-04/14) Qty: 0 0RF azithromycin 500 mg tablet 500 mg PO DAILY Qty: 5 0RF metoclopramide HCl 10 mg tablet 10 mg PO Q8H PRN (Reason: nausea and vomiting) Qty: 48 0RF Continued levothyroxine 75 mcg tablet 75 mcg PO DAILY levothyroxine 200 mcg tablet 200 mcg PO DAILY atorvastatin 80 mg tablet 80 mg PO QHS Qty: 90 3RF lisinopril 40 mg tablet 40 mg PO DAILY Qty: 90 3RF nitroglycerin 0.4 mg tablet, sublingual 0.4 mg sublingual Q5-15M PRN (Reason: chest pain) Qty: 25 3RF Rx Instructions: do not exceed 3 doses per episode (DME) blood pressure monitor Kit See Rx Instructions .Route Qty: 1 0RF Rx Instructions: As directed albuterol sulfate 1 INHALER inhaler 1 - 2 puff inhalation Q4H PRN PRN (Reason: Wheezing) Qty: 1 0RF Patient Comments: asthma budesonide-formoterol 160-4.5MCG inhaler 2 puff PO BID bupropion HCl 300 MG tablet extended release 24 hr 300 mg PO DAILY lorazepam 1 mg tablet 0.5 - 1 mg PO TID PRN (Reason: Anxiety) Patient Comments: Please take half to one tablet daily as needed for anxiety levothyroxine 300 mcg tablet 300 mcg PO .thursday Patient Comments: Take 1 tablet by mouth daily before breakfast on Sundays. (Other days of the week take 275mcg once daily) bupropion HCl 150 mg tablet extended release 24 hr 150 mg PO DAILY Patient Comments: take 1 tablet by mouth once daily ALONG WITH BUPROPRION 300 MG carvedilol 25 mg tablet 25 mg PO Q12H Patient Comments: Take 1 tablet by mouth twice daily. (DME) blood-glucose meter [OneTouch Verio Flex meter] [facility] MISCELLANEOUS UD (DME) OneTouch Verio test strips Strip MISCELLANEOUS Patient Comments: [NO ORIGINAL SIG] (DME) FreeStyle Konstantin 2 Sensor Kit MISCELLANEOUS Patient Comments: Apply new sensor every fourteen (14) days to upper arm. lamotrigine 150 mg tablet 150 mg PO BID lamotrigine 25 mg tablet 50 mg PO DAILY isosorbide mononitrate 60 mg tablet extended release 24 hr 60 mg PO DAILY (DME) insulin syringe-needle U-100 [BD Insulin Syringe Ultra-Fine] 0.5 mL 31 gauge x 5/16 syringe 1 syringe MISCELLANEOUS TID (DME) lancets [Unilet Lancet] 33 gauge misc MISCELLANEOUS 4X/DAY ranolazine 500 mg tablet extended release 12 hr 500 mg PO BID insulin lispro [Humalog KwikPen Insulin] 100 unit/mL Insulin Pen See Protocol subcut ACHS Qty: 0 0RF Protocol: 4. Sliding Scale Insulin High-Med Dosing Condition: 150-199 mg/dl = 2 units Condition: 200-259 mg/dl = 4 units Condition: 260-324 mg/dl = 6 units Condition: 325-374 mg/dl = 8 units Condition: 375-409 mg/dl = 10 units Condition: 410-449 mg/dl = 11 units Condition: Greater than 449 call physician Protocol Text: - Use for Total Daily Dose of Insulin 56-80 units - Patient who are insulin resistant or septic HIGH MEDIUM DOSING ALGORITHM sennosides [senna] 8.6 mg Tablet 8.6 mg PO BID Qty: 0 0RF insulin lispro [Humalog KwikPen Insulin] 100 unit/mL Insulin Pen 15 unit subcut TIDAC ondansetron 4 mg tablet,disintegrating 4 mg PO Q8H PRN (Reason: nausea and vomiting) Qty: 10 0RF Brilinta 90 mg tablet See Rx Instructions .ROUTE .COMPLEX Qty: 180 3RF Dose Instruction: 03/27/22 TAKE 1 TABLET BY MOUTH TWICE DAILY Rx Instructions: 03/27/22 TAKE 1 TABLET BY MOUTH TWICE DAILY Changed insulin glargine-yfgn 100 unit/mL (3 mL) Insulin Pen 45 unit subcut QHS Qty: 15 0RF pantoprazole 40 mg tablet,delayed release (DR/EC) 40 mg PO BIDCM Qty: 30 11RF Rx Instructions: twice daily for 1 month, then daily. Discontinued oxycodone 5 mg Tablet 5 mg PO Q4H PRN PRN (Reason: Pain Score 6-10) Qty: 0 0RF Referrals / Follow Up: Carlotta Galindo MD [Primary Care Provider] - Within 2 Weeks Disposition Disposition (needs filled in before D/C Order can be placed): Home, Self Care Charges/Coding Visit Charges Inpatient E&M: 53294 Disch Hosp >30min
[2023-11-13] MEDS: Azithromycin 500 MG in Dextrose 5%-Water (250mL Bag) 250 ML 250 MG IV (10:45)
--- NOTE | 2023-11-13 11:21 | CASEMGMT ---
RN CM into pt room, pt aware she is being dc'd. Pt denies any homegoing needs.
[2023-11-13 12:09] LABS: Bedside Glucose 258 mg/dL (74-106)
[2023-11-13 13:54] VITALS: BP 99/64; PULSE 84; RESP 18; TEMP 36.4; O2SAT 98
--- NOTE | 2023-11-13 14:26 | CASEMGMT ---
Social Work Pt completed POA for Healthcare w/SW. SW gave pt copy of LW, she did not want to complete at this time. SW gave pt original and copies, and copies placed on the chart. SW spoke w/pt also about losing her a year ago, support offered. Pt is in counseling, states is thinking about getting involved in a group. SW gave pt the phone number for [facility], let her know they have bereavement groups that may be helpful. No further needs, pt home today. CJ Stapleton
== END 2023-11-13 15:15 | disposition home or self-care (01) | DRG 637 ==
LOC: ED 11-06 02:45 → ICU 11-06 03:04 → PCU 11-07 13:52 → MS3 11-10 17:39
PROVIDERS: Anesthesiology; Internal Medicine Gastroenterology; Student in an Organized Health Care Education/Training Program; Admitting Provider Family Medicine; Emergency Provider Emergency Medicine; PCP Internal Medicine
PROC: 0DJ08ZZ Inspection of Upper Intestinal Tract, Via Natural or Artificial Opening Endoscopic (ICD-10-PCS; CPT 43235; principal; 2023-11-09 11:25)
DX: E11.10 Type 2 diabetes mellitus with ketoacidosis without coma (principal); E43 Unspecified severe protein-calorie malnutrition; Z68.42 Body mass index [BMI] 45.0-49.9, adult; I11.0 Hypertensive heart disease with heart failure; I50.9 Heart failure, unspecified; F31.9 Bipolar disorder, unspecified; J44.9 Chronic obstructive pulmonary disease, unspecified; E11.649 Type 2 diabetes mellitus with hypoglycemia without coma; E66.01 Morbid (severe) obesity due to excess calories; Z79.4 Long term (current) use of insulin; E11.43 Type 2 diabetes mellitus with diabetic autonomic (poly)neuropathy; E03.9 Hypothyroidism, unspecified; I25.10 Atherosclerotic heart disease of native coronary artery without angina pectoris; E78.00 Pure hypercholesterolemia, unspecified; G47.33 Obstructive sleep apnea (adult) (pediatric); K21.9 Gastro-esophageal reflux disease without esophagitis; K31.84 Gastroparesis; K31.89 Other diseases of stomach and duodenum; K29.50 Unspecified chronic gastritis without bleeding; K25.9 Gastric ulcer, unspecified as acute or chronic, without hemorrhage or perforation; B37.31 Acute candidiasis of vulva and vagina; Z79.02 Long term (current) use of antithrombotics/antiplatelets; Z87.891 Personal history of nicotine dependence; Z95.5 Presence of coronary angioplasty implant and graft; Z79.899 Other long term (current) drug therapy; Z79.890 Hormone replacement therapy
CPT/HCPCS: 36415; 36569; 71045; 74177; 80048; 80076; 81001; 81025; 82009; 82803; 82962; 83036; 83690; 83735; 83930; 84100; 84443; 84484; 85025; 85730; 88305; 88342; 93005; 97802; 97803; 99284; J7030; J7050; J7120; Q9967; A4216; J2405; J7799

== ENCOUNTER 2024-03-19 16:03 | Emergency (ER) | payer MEDICARE, SELFPAY ==
[2019-05-06 13:18] VITALS: BMI 56.7
[2024-03-19 16:04] VITALS: BP 166/83; PULSE 87; RESP 18; TEMP 35.7; O2SAT 100; BMI 46.0
[2024-03-19] MEDS: oxyCODONE 5 MG Tablet PO (16:42)
--- NOTE | 2024-03-19 16:49 | EDS_ITS ---
HPI <MOHAN Hull - Last Filed: 03/19/24 17:19> History of Present Illness Chief Complaint: Lower Extremity Injury Narrative Narrative: Patient is a 48-year-old female with history of diabetes, CAD, factor V Leiden who is on Brilinta who presents to the emergency department for 2 weeks of right leg pain. Patient denies any trauma, days and swelling. Pay states the pain started in her foot rating up her mid cochran down to her knee up to her thigh. Patient has the pain is worse with palpation. She states that the pain is constant, and nothing really exacerbates it or takes the pain away. Patient denies any fever chills, denies any shortness of breath or chest pain. PFS <MOHAN Hull - Last Filed: 03/19/24 17:19> FORMERLY [facility] Medical History (Updated 03/19/24 @ 17:14 by MOHAN Hull) Insulin dependent diabetes mellitus Coronary artery disease Anxiety and depression DKA (diabetic ketoacidosis) Intractable nausea and vomiting COVID-19 Chronic pain Smoker Blood disorder CHF (congestive heart failure) Heart attack Irregular heartbeat Nonadherence to medication Sinus bradycardia by electrocardiogram ST elevation myocardial infarction (STEMI) of inferior wall Nicotine dependence Morbid obesity with BMI of 50.0-59.9, adult Chronic obstructive pulmonary disease GEOVANI (obstructive sleep apnea) Diabetes mellitus, type II Atherosclerotic heart disease of [place] coronary artery without angina pectoris Sleep-disordered breathing Asthma GERD (gastroesophageal reflux disease) Hypothyroidism Hypercholesterolemia Essential hypertension Home Medications ?Medication ?Instructions ?Recorded ?Last Taken ?Type albuterol sulfate 90 mcg/actuation 1 - 2 puff inhalation Q4H PRN PRN 10/15/15 10/19/20 Rx aerosol inhaler Wheezing ##1 budesonide-formoterol HFA 160 2 puff PO BID breathing 05/07/19 10/20/20 History mcg-4.5 mcg/actuation aerosol inhaler bupropion HCl 300 mg 24 hr tablet, 300 mg PO DAILY MOOD 09/25/20 10/20/20 History extended release lorazepam 1 mg tablet 0.5 - 1 mg PO TID PRN Anxiety 04/24/21 Unknown History atorvastatin 80 mg tablet 80 mg PO QHS cholesterol #90 tabs 03/25/22 Unknown Rx levothyroxine 200 mcg tablet 200 mcg PO DAILY 03/25/22 Unknown History levothyroxine 75 mcg tablet 75 mcg PO DAILY 03/25/22 Unknown History bupropion HCl 150 mg 24 hr tablet, 150 mg PO DAILY 04/06/23 Unknown History extended release carvedilol 25 mg tablet 25 mg PO Q12H 04/06/23 Unknown History levothyroxine 300 mcg tablet 300 mcg PO .thursday04/06/23 Unknown History blood pressure monitor #1 ea 04/30/23 Unknown Rx lisinopril 40 mg tablet 40 mg PO DAILY blood pressure #90 04/30/23 Unknown Rx tabs nitroglycerin 0.4 mg sublingual 0.4 mg sublingual Q5-15M PRN chest 04/30/23 Unknown Rx tablet pain #25 tabs ticagrelor 90 mg tablet (Brilinta) See Rx Instructions .Route 05/15/23 Unknown Rx .COMPLEX #180 tabs blood sugar diagnostic (OneTouch 10/06/23 Unknown History Verio test strips) blood-glucose meter (OneTouch 10/06/23 Unknown History Verio Flex Meter) flash glucose sensor (TempolibStyle 10/06/23 Unknown History Konstantin 2 Sensor kit) insulin syringe-needle U-100 0.5 10/06/23 Unknown History mL 31 gauge x 5/16 (BD Insulin Syringe Ultra-Fine) isosorbide mononitrate 60 mg 60 mg PO DAILY 10/06/23 Unknown History tablet,extended release 24 hr lamotrigine 150 mg tablet 150 mg PO BID 10/06/23 Unknown History lamotrigine 25 mg tablet 50 mg PO DAILY 10/06/23 Unknown History lancets 33 gauge (Unilet Lancet) 10/06/23 Unknown History ranolazine 500 mg tablet,extended 500 mg PO BID 10/06/23 Unknown History release,12 hr insulin lispro 100 unit/mL See Protocol subcut ACHS #0 mL 10/09/23 Unknown Rx subcutaneous pen (Humalog KwikPen (U-100) Insulin) sennosides 8.6 mg tablet (senna) 8.6 mg PO BID #0 tabs 10/09/23 Unknown Rx insulin lispro 100 unit/mL 15 unit subcut TIDAC 11/05/23 Unknown History subcutaneous pen (Humalog KwikPen (U-100) Insulin) acetaminophen 325 mg tablet 1,000 mg (3.0769 x 325 mg) PO Q8H 11/13/23 Unknown R x PRN Fever, pain 1-04/14 #0 tabs azithromycin 500 mg tablet 500 mg PO DAILY #5 tabs 11/13/23 Unknown Rx insulin glargine-yfgn 100 unit/mL 45 unit (0.45 mL) subcut QHS #15 mL 11/13/23 Unknown Rx (3 mL) subcutaneous pen metoclopramide HCl 10 mg tablet 10 mg PO Q8H PRN nausea and 11/13/23 Unknown Rx vomiting #48 tabs ondansetron 4 mg disintegrating 4 mg PO Q8H PRN nausea and 11/13/23 Unknown Rx tablet vomiting #10 tabs pantoprazole 40 mg tablet,delayed 40 mg PO BIDCM acid reflux #30 tabs 11/13/23 Unknown Rx release hydrocodone-acetaminophen 5-325mg 1 tab PO Q6H PRN PRN Pain 3 days 03/19/24 Unknown Rx 5mg-325mg #8 TABLETS Allergy/AdvReac Type Severity Reaction Status Date / Time metformin (From Glucophage) AdvReac Intermediate Diarrhea Verified 03/19/24 16:04 Family History Mother Cancer lung Father Hypertension COPD (chronic obstructive pulmonary disease) Daughter Factor V deficiency Grandmother Cancer lung COPD (chronic obstructive pulmonary disease) Surgical History (Updated 11/21/23 @ 00:04 by Mio Baeza) S/P tubal ligation H/O cardiac catheterization History of percutaneous transluminal coronary angioplasty (~10/20/20) History of coronary artery stent placement (04/06/23) History of tonsillectomy and adenoidectomy History of tubal ligation History of cholecystectomy History of dilatation and curettage History of delivery History of back surgery History of left heart catheterization (04/06/23) Social History household members: none Smoking Status: Current every day smoker tobacco type: e-cigarettes alcohol intake: current alcohol intake frequency: holidays/special occasions only substance use type: does not use caffeine: Yes ROS <MOHAN Hull - Last Filed: 03/19/24 17:19> ROS ED ROS Narrative Constitutional: Negative for fever, chills, weight loss, weakness Eyes: Negative for vision loss, vision change, double vision ENT: Negative for any sore throat, ear pain, congestion Cardiovascular: Negative for any chest pain, tightness, palpitations Respiratory: Negative for any cough, sputum production, hemoptysis, dyspnea, dyspnea on exertion, orthopnea Gastrointestinal: Negative for any abdominal pain, nausea, vomiting, diarrhea, constipation, blood in stool, blood in vomit : Negative for any urinary frequency, dysuria, retention, blood in urine Muscle skeletal: Negative for any neck pain, back pain. Positive for pain to the right leg Neurological: Negative for any headache, syncope, dizziness Skin: Negative for any rashes, itching, abrasions, lacerations Psychiatric: Negative for any depression, anxiety, stress, suicidal ideation, homicidal ideation Hematologic: Negative for any excessive bruising, easy bleeding EXAM <MOHAN Hull - Last Filed: 03/19/24 17:19> Physical Exam Narrative Exam Narrative: Vital signs reviewed. HEET: Head normocephalic atraumatic, TMs clear bilaterally. Posterior pharynx is clear, moist mucous membranes. Nares clear bilaterally. Neck: Supple with no lymphadenopathy or tenderness. No signs of meningismus. Cardiac: Regular rate and rhythm no murmurs gallops or rubs, equal peripheral pulses bilaterally. Respiratory: Lungs clear to auscultation bilaterally. No chest tenderness. Abdomen: Soft, nontender, nondistended. No abdominal bruit or pulsatile masses. No hepatosplenomegaly Extremities: No peripheral edema, no signs of gross trauma or deformity. Active full range of motion of all extremities. +2 pedal pulse, there is no signs of redness, no sign of trauma. Intact extensor medicine. Patient is most of her pain around her knee, there is no posterior pain. No signs of trauma. No discoloration Neuro: Cranial nerves II through XII intact, no focal neurological deficits. Skin: Clean dry and intact with no rash, purpura, petechiae, vesicles or pustules. Backs/flank: No CVA tenderness, no midline spinal tenderness, no deformity. Psych: Normal mood and affect. No SI, HI or acute psychosis. Const Vital Signs: 03/19/24 16:04 03/19/24 17:21 Temperature 96.3 F L 98 F Temperature Source Temporal Pulse Rate 87 78 Respiratory Rate 18 19 H Blood Pressure 166/83 H 160/82 H Blood Pressure Mean 110 108 Pulse Ox 100 95 Oxygen Delivery Method Room Air Positive well nourished and well developed General Appearance ED: well developed <Dr. Garfield Tee DO - Last Filed: 03/19/24 22:58> Physical Exam Const Vital Signs: 03/19/24 16:04 03/19/24 17:21 Temperature 96.3 F L 98 F Temperature Source Temporal Pulse Rate 87 78 Respiratory Rate 18 19 H Blood Pressure 166/83 H 160/82 H Blood Pressure Mean 110 108 Pulse Ox 100 95 Oxygen Delivery Method Room Air MDM <Juan Manuel [employer]SE[employer] - Last Filed: 03/19/24 17:19> MDM Treatment and Re-Evaluation :: Differential diagnosis includes however is not limited to: DVT, right leg, neuropathic pain, cellulitis, compartment syndrome, muscle strain Patient appears generally well, nontoxic-appearing. Presenting to the emergency department with complaints of pain to the right leg. Patient will be given oral oxycodone for discomfort. At this time, patient be discharged home, patient will receive an outpatient v enous duplex of the right lower extremity. Patient will be given subcutaneous Lovenox here. She will be given all the paperwork to have to perform the right venous duplex. She instructed return for any worsening symptoms. At this time, she is happy with the plan of care stable for discharge <Dr. Garfield Tee, - Last Filed: 03/19/24 22:58> MDM Treatment and Re-Evaluation :: Differential diagnosis includes however is not limited to: DVT, right leg, neuropathic pain, cellulitis, compartment syndrome, muscle strain Patient appears generally well, nontoxic-appearing. Presenting to the emergency department with complaints of pain to the right leg. Patient will be given oral oxycodone for discomfort. At this time, patient be discharged home, patient will receive an outpatient venous duplex of the right lower extremity. Patient will be given subcutaneous Lovenox here. She will be given all the paperwork to have to perform the right venous duplex. She instructed return for any worsening symptoms. At this time, she is happy with the plan of care stable for discharge ED attending note: I evaluated the patient in conjunction with the TINO. I agree with his/her statements and above findings. I have personally performed a face to face assessment of the patient and have reviewed the TINO Note. I performed a substantive portion of the visit including all aspects of the following. I personally saw the patient performed chart review, physical exam, reviewed labs, imaging (if obtained), and formulated a treatment and management plan. This note was generated with [employer]renchgu[employer] mobile dictation software. It may contain incorrect words, spelling, and punctuation that were not noted in review of the chart prior to signing. Discharge Plan Triage Chief Complaint: Lower Extremity Injury ED Midlevel Provider: Juan Manuel Mitchell ED Provider: Garfield Tee Dx/Rx/DC Orders Clinical Impression: Acute leg pain, Factor V Leiden Instructions: ED Myalgias, ED Pain, Acute, Uncertain Cause Prescriptions: New hydrocodone-acetaminophen 5-325 mg tablet 1 tab PO Q6H PRN PRN (Reason: Pain) 3 Days Qty: 8 0RF No Action levothyroxine 75 mcg tablet 75 mcg PO DAILY levothyroxine 200 mcg tablet 200 mcg PO DAILY atorvastatin 80 mg tablet 80 mg PO QHS Qty: 90 3RF lisinopril 40 mg tablet 40 mg PO DAILY Qty: 90 3RF nitroglycerin 0.4 mg tablet, sublingual 0.4 mg sublingual Q5-15M PRN (Reason: chest pain) Qty: 25 3RF Rx Instructions: do not exceed 3 doses per episode (DME) blood pressure monitor Kit See Rx Instructions .Route Qty: 1 0RF Rx Instructions: As directed albuterol sulfate 1 INHALER inhaler 1 - 2 puff inhalation Q4H PRN PRN (Reason: Wheezing) Qty: 1 0RF Patient Comments: asthma budesonide-formoterol 160-4.5MCG inhaler 2 puff PO BID bupropion HCl 300 MG tablet extended release 24 hr 300 mg PO DAILY lorazepam 1 mg tablet 0.5 - 1 mg PO TID PRN (Reason: Anxiety) Patient Comments: Please take half to one tablet daily as needed for anxiety levothyroxine 300 mcg tablet 300 mcg PO .thursday Patient Comments: Take 1 tablet by mouth daily before breakfast on Sundays. (Other days of the week take 275mcg once daily) bupropion HCl 150 mg tablet extended release 24 hr 150 mg PO DAILY Patient Comments: take 1 tablet by mouth once daily ALONG WITH BUPROPRION 300 MG carvedilol 25 mg tablet 25 mg PO Q12H Patient Comments: Take 1 tablet by mouth twice daily. (DME) blood-glucose meter [OneTouch Verio Flex meter] [facility] MISCELLANEOUS UD (DME) OneTouch Verio test strips Strip MISCELLANEOUS Patient Comments: [NO ORIGINAL SIG] (DME) FreeStyle Konstantin 2 Sensor Kit MISCELLANEOUS Patient Comments: Apply new sensor every fourteen (14) days to upper arm. lamotrigine 150 mg tablet 150 mg PO BID lamotrigine 25 mg tablet 50 mg PO DAILY isosorbide mononitrate 60 mg tablet extended release 24 hr 60 mg PO DAILY (DME) insulin syringe-needle U-100 [BD Insulin Syringe Ultra-Fine] 0.5 mL 31 gauge x 5/16 syringe 1 syringe [facility] [place] [place] lancets [Unilet Lancet] [facility] ranolazine 500 mg tablet extended release 12 hr 500 mg PO BID insulin lispro [Humalog KwikPen Insulin] 100 unit/mL Insulin Pen See Protocol subcut ACHS Qty: 0 0RF Protocol: 4. Sliding Scale Insulin High-Med Dosing Condition: 150-199 mg/dl = 2 units Condition: 200-259 mg/dl = 4 units Condition: 260-324 mg/dl = 6 units Condition: 325-374 mg/dl = 8 units Condition: 375-409 mg/dl = 10 units Condition: 410-449 mg/dl = 11 units Condition: Greater than 449 call physician Protocol Text: - Use for Total Daily Dose of Insulin 56-80 units - Patient who are insulin resistant or septic HIGH MEDIUM DOSING ALGORITHM sennosides [senna] 8.6 mg Tablet 8.6 mg PO BID Qty: 0 0RF insulin lispro [Humalog KwikPen Insulin] 100 unit/mL Insulin Pen 15 unit subcut TIDAC acetaminophen 325 mg Tablet 1,000 mg PO Q8H PRN (Reason: Fever, pain 1-04/14) Qty: 0 0RF azithromycin 500 mg tablet 500 mg PO DAILY Qty: 5 0RF metoclopramide HCl 10 mg tablet 10 mg PO Q8H PRN (Reason: nausea and vomiting) Qty: 48 0RF ondansetron 4 mg tablet,disintegrating 4 mg PO Q8H PRN (Reason: nausea and vomiting) Qty: 10 0RF insulin glargine-yfgn 100 unit/mL (3 mL) Insulin Pen 45 unit subcut QHS Qty: 15 0RF pantoprazole 40 mg tablet,delayed release (DR/EC) 40 mg PO BIDCM Qty: 30 11RF Rx Instructions: twice daily for 1 month, then daily. Brilinta 90 mg tablet See Rx Instructions .ROUTE .COMPLEX Qty: 180 3RF Dose Instruction: 03/27/22 TAKE 1 TABLET BY MOUTH TWICE DAILY Rx Instructions: 03/27/22 TAKE 1 TABLET BY MOUTH TWICE DAILY Other Ambulatory Orders: Venous Duplex US, Unilateral (Stat) Facility: [facility] Location[facility] Primary Care Provider: Carlotta Galindo Referrals: Carlotta Galindo MD [Primary Care Provider] - Activity Restrictions/Additional Instructions: Please follow the instructions, receive your outpatient ultrasound. Print Language: Portuguese Disposition Disposition: Home, Self Care Discharge Date/Time: 03/19/24 17:38
[2024-03-19] MEDS: Enoxaparin 120 MG/0.8 ML Syringe SC (17:19)
[2024-03-19 17:21] VITALS: BP 160/82; PULSE 78; RESP 19; TEMP 36.6; O2SAT 95
== END 2024-03-19 17:38 | disposition home or self-care (01) ==
PROVIDERS: Emergency Provider Emergency Medicine; PCP Internal Medicine; Visit Provider Emergency Medicine
DX: M79.604 Pain in right leg (principal); I11.0 Hypertensive heart disease with heart failure; I50.9 Heart failure, unspecified; J44.9 Chronic obstructive pulmonary disease, unspecified; E11.9 Type 2 diabetes mellitus without complications; I25.10 Atherosclerotic heart disease of native coronary artery without angina pectoris; F17.290 Nicotine dependence, other tobacco product, uncomplicated; I25.2 Old myocardial infarction; G47.33 Obstructive sleep apnea (adult) (pediatric); Z86.16 Personal history of COVID-19; Z95.5 Presence of coronary angioplasty implant and graft
CPT/HCPCS: 99282

== ENCOUNTER → 2024-03-21 | Outpatient (CLI) | payer MEDICARE, SELFPAY ==
[2019-05-06 13:18] VITALS: BMI 56.7
--- NOTE | 2024-03-21 11:05 | VDLE_ITS ---
Reason For Study: Pain RLE RIGHT LEFT GSV is normal. CFV is compressible, spontaneous, phasic, CFV is compressible, spontaneous, phasic, competent, and demonstrates normal competent and demonstrates normal augmentation. augmentation. FV is compressible, spontaneous, phasic, competent and demonstrates normal augmentation. POP V is compressible, spontaneous, phasic, competent and demonstrates normal augmentation. T/P Trunk is compressible. PTV is compressible. RT PerV is compressible. Procedure This is a venous duplex using B-mode, color flow and spectral Doppler. Exam performed in department. A preliminary report was called and/or faxed to Dr. Galindo. VL/Venous Duplex US, Unilateral Interpretation Summary Deep veins of the right lower extremity are patent and compressible segmentally . There is no evidence of right lower extremity deep vein thrombosis. The right great sapheno us vein appears patent and compressible segmentally. Ordering Physician: Juan Manuel Mitchell Referring Physician: Carlotta Galindo Performed By: Noreen Underwood RDCS, RVT
== END | disposition home or self-care (01) ==
LOC: CVS 11:00
PROVIDERS: PCP Internal Medicine; Referring Provider Nurse Practitioner; Visit Provider Nurse Practitioner
DX: M79.604 Pain in right leg (principal)
CPT/HCPCS: 93971

== ENCOUNTER 2024-03-24 11:00 | Emergency (ER) | payer MEDICARE, SELFPAY ==
[2019-05-06 13:18] VITALS: BMI 56.7
[2024-03-24 11:01] VITALS: BP 111/72; PULSE 102; RESP 16; TEMP 36.2; O2SAT 97; BMI 45.7
--- NOTE | 2024-03-24 12:07 | EX.ED.DYSGE1 ---
HPI History of Present Illness Chief Complaint: Back Informant: patient Onset/Context/Timing Onset: Weeks (2) Context: Sudden Onset Timing: Continuous Quality: Sharp, aching Location: Right thigh and knee Worsened by: Nothing Relieved by: Nothing Narrative Narrative: Patient presents with back and right thigh pain that has been getting worse over the past 2 weeks. Patient states she fell 2 weeks ago and her pain is getting progressively worse since then. Patient describes the pain as aching and sharp at times. Patient states it is mainly over the right thigh and knee. Patient states she has some mild pain in her back. Patient states nothing makes it better and nothing makes it worse. Patient admits to occasional paresthesias with prolonged standing. Patient denies any bowel or bladder changes. Patient denies any saddle anesthesia. [facility] Medical History Insulin dependent diabetes mellitus Coronary artery disease Anxiety and depression DKA (diabetic ketoacidosis) Intractable nausea and vomiting COVID-19 Chronic pain Smoker Blood disorder CHF (congestive heart failure) Heart attack Irregular heartbeat Nonadherence to medication Sinus bradycardia by electrocardiogram ST elevation myocardial infarction (STEMI) of inferior wall Nicotine dependence Morbid obesity with BMI of 50.0-59.9, adult Chronic obstructive pulmonary disease GEOVANI (obstructive sleep apnea) Diabetes mellitus, type II Atherosclerotic heart disease of [place] coronary artery without angina pectoris Sleep-disordered breathing Asthma GERD (gastroesophageal reflux disease) Hypothyroidism Hypercholesterolemia Essential hypertension Home Medications ?Medication ?Instructions ?Recorded ?Last Taken ?Type albuterol sulfate 90 mcg/actuation 1 - 2 puff inhalation Q4H PRN PRN 10/15/15 10/19/20 Rx aerosol inhaler Wheezing ##1 budesonide-formoterol HFA 160 2 puff PO BID breathing 05/07/19 10/20/20 History mcg-4.5 mcg/actuation aerosol inhaler bupropion HCl 300 mg 24 hr tablet, 300 mg PO DAILY MOOD 09/25/20 10/20/20 History extended release lorazepam 1 mg tablet 0.5 - 1 mg PO TID PRN Anxiety 04/24/21 Unknown History atorvastatin 80 mg tablet 80 mg PO QHS cholesterol #90 tabs 03/25/22 Unknown Rx levothyroxine 200 mcg tablet 200 mcg PO DAILY 03/25/22 Unknown History levothyroxine 75 mcg tablet 75 mcg PO DAILY 03/25/22 Unknown History bupropion HCl 150 mg 24 hr tablet, 150 mg PO DAILY 04/06/23 Unknown History extended release carvedilol 25 mg tablet 25 mg PO Q12H 04/06/23 Unknown History levothyroxine 300 mcg tablet 300 mcg PO .thursday04/06/23 Unknown History blood pressure monitor #1 ea 04/30/23 Unknown Rx lisinopril 40 mg tablet 40 mg PO DAILY blood pressure #90 04/30/23 Unknown Rx tabs nitroglycerin 0.4 mg sublingual 0.4 mg sublingual Q5-15M PRN chest 04/30/23 Unknown Rx tablet pain #25 tabs ticagrelor 90 mg tablet (Brilinta) See Rx Instructions .Route 05/15/23 Unknown Rx .COMPLEX #180 tabs [facility] Unknown History Verio test strips) blood-glucose meter (OneTouch 10/06/23 Unknown History Verio Flex Meter) flash glucose sensor (AgoriqueStyle 10/06/23 Unknown History Konstantin 2 Sensor kit) insulin syringe-needle U-100 0.5 10/06/23 Unknown History mL 31 gauge x 5/16 (BD Insulin Syringe Ultra-Fine) isosorbide mononitrate 60 mg 60 mg PO DAILY 10/06/23 Unknown History tablet,extended release 24 hr lamotrigine 150 mg tablet 150 mg PO BID 10/06/23 Unknown History lamotrigine 25 mg tablet 50 mg PO DAILY 10/06/23 Unknown History lancets 33 gauge (Unilet Lancet) 10/06/23 Unknown History ranolazine 500 mg tablet,extended 500 mg PO BID 10/06/23 Unknown History release,12 hr insulin lispro 100 unit/mL See Protocol subcut ACHS #0 mL 10/09/23 Unknown Rx subcutaneous pen (Humalog KwikPen (U-100) Insulin) sennosides 8.6 mg tablet (senna) 8.6 mg PO BID #0 tabs 10/09/23 Unknown Rx insulin lispro 100 unit/mL 15 unit subcut TIDAC 11/05/23 Unknown History subcutaneous pen (Humalog KwikPen (U-100) Insulin) acetaminophen 325 mg tablet 1,000 mg (3.0769 x 325 mg) PO Q8H 11/13/23 Unknown Rx PRN Fever, pain 1-04/14 #0 tabs azithromycin 500 mg tablet 500 mg PO DAILY #5 tabs 11/13/23 Unknown Rx insulin glargine-yfgn 100 unit/mL 45 unit (0.45 mL) subcut QHS #15 mL 11/13/23 Unknown Rx (3 mL) subcutaneous pen metoclopramide HCl 10 mg tablet 10 mg PO Q8H PRN nausea and 11/13/23 Unknown Rx vomiting #48 tabs ondansetron 4 mg disintegrating 4 mg PO Q8H PRN nausea and 11/13/23 Unknown Rx tablet vomiting #10 tabs pantoprazole 40 mg tablet,delayed 40 mg PO BIDCM acid reflux #30 tabs 11/13/23 Unknown Rx release hydrocodone-acetaminophen 5-325mg 1 tab PO Q6H PRN PRN Pain 3 days 03/19/24 Unknown Rx 5mg-325mg #8 TABLETS cephalexin 500 mg capsule 500 mg PO Q6 #40 CAPSULES 03/24/24 Unknown Rx hydrocodone-acetaminophen 5-325mg 1 tab PO Q6H PRN PRN Pain 3 days 03/24/24 Unknown Rx 5mg-325mg #10 TABLETS Allergy/AdvReac Type Severity Reaction Status Date / Time metformin (From Glucophage) AdvReac Intermediate Diarrhea Verified 03/24/24 11:00 Family History Mother Cancer lung Father Hypertension COPD (chronic obstructive pulmonary disease) Daughter Factor V deficiency Grandmother Cancer lung COPD (chronic obstructive pulmonary disease) Surgical History S/P tubal ligation H/O cardiac catheterization History of percutaneous transluminal coronary angioplasty (~10/20/20) History of coronary artery stent placement (04/06/23) History of tonsillectomy and adenoidectomy History of tubal ligation History of cholecystectomy History of dilatation and curettage History of delivery History of back surgery History of left heart catheterization (04/06/23) Social History household members: none Smoking Status: Current every day smoker tobacco type: e-cigarettes alcohol intake: current alcohol intake frequency: holidays/special occasions only substance use type: does not use caffeine: Yes ROS ROS ED Constitutional Constitutional ED: Denies chills or fever(s) Eyes Eyes: Denies blurry vision or change in vision ENT ENT ED: Denies rhinorrhea or sore throat Cardiovascular Cardiovascular: Denies chest pain or palpitations Respiratory/Chest Respiratory/Chest: Denies cough or dyspnea Gastrointestinal Gastrointestinal: Denies nausea or vomiting Genitourinary Genitourinary ED: Denies dysuria or hematuria Musculoskeletal Musculoskeletal: Reports back pain; Denies neck pain Integumentary Reports abscess; Denies rash Neurologic Neurologic: Denies headache(s) or weakness Allergic/Immunologic Allergic/Immunologic ED: Denies mouth swelling or urticaria EXAM Physical Exam Const Vital Signs: 03/24/24 11:01 Temperature 97.2 F L Temperature Source Temporal Pulse Rate 102 H Respiratory Rate 16 Blood Pressure 111/72 Blood Pressure Mean 85 Pulse Ox 97 Oxygen Delivery Method Room Air Positive well nourished and well developed General Appearance ED: well developed and NAD HEENT Reports moist mucous membranes Neck supple and no JVD Back/Spine Back/Spine Narrative: There is minimal tenderness over the right lumbar paraspinal muscles. There is mild midline tenderness. There is no bony crepitance or step-off. Straight leg raises are negative bilaterally. Strength is 5/5 bilaterally in lower extremities. There are no sensory deficits noted. Pedal pulses are equal bilaterally. Range of motion of the lumbar spine was somewhat limited in all motions secondary to pain. Lumbar Spine / Lower Back: lumbar spinal tenderness Extremity normal to inspection General Extremety ED: Negative for edema or tenderness General Extremity: Negative for edema Neuro oriented x3, CN's II-XII intact bilaterally and no sensory deficits noted Sensorium / Orientation: alert Motor Exam: strength 5/5 throughout Psych mental status grossly normal Skin Skin Narrative: There is a tender indurated area over the left breast superior to the areola and nipple. There is some mild erythema and warmth. There is no fluctuance. There is no discharge or drainage noted. MDM MDM MDM Narrative Medical decision making narrative: Since the patient fell 2 weeks ago and is having persistent pain, x-rays of the lumbar spine will be obtained to assess for fracture and spondylolisthesis and loosening of hardware. Radiography Diagnostic Testing: X-rays of the lumbar spine were obtained. There are 3 views. On my independent interpretation, there is no acute fracture or spondylolisthesis noted. There is no loosening of the hardware. Radiologist also interpreted the x-rays and agrees. Treatment and Re-Evaluation :: Patient was given injection of morphine here. Patient was given a dose of Keflex. Patient was advised of her findings. Patient was given prescription for a short course of Mallie. Patient was given a prescription for Keflex. Patient was instructed to follow-up with her primary care physician in 3 to 5 days. Patient understood and was agreeable with plan. All questions were answered. Discharge Plan Triage Chief Complaint: Back ED Provider: Abrahan Ojeda Dx/Rx/DC Orders Clinical Impression: Acute leg pain, Fall, Sciatica of right side, Cellulitis of left breast Instructions: ED Cellulitis, ED Sciatica Prescriptions: New hydrocodone-acetaminophen 5-325 mg tablet 1 tab PO Q6H PRN PRN (Reason: Pain) 3 Days Qty: 10 0RF cephalexin 500 mg capsule 500 mg PO Q6 Qty: 40 0RF No Action levothyroxine 75 mcg tablet 75 mcg PO DAILY levothyroxine 200 mcg tablet 200 mcg PO DAILY atorvastatin 80 mg tablet 80 mg PO QHS Qty: 90 3RF lisinopril 40 mg tablet 40 mg PO DAILY Qty: 90 3RF nitroglycerin 0.4 mg tablet, sublingual 0.4 mg sublingual Q5-15M PRN (Reason: chest pain) Qty: 25 3RF Rx Instructions: do not exceed 3 doses per episode (DME) blood pressure monitor Kit See Rx Instructions .Route Qty: 1 0RF Rx Instructions: As directed albuterol sulfate 1 INHALER inhaler 1 - 2 puff inhalation Q4H PRN PRN (Reason: Wheezing) Qty: 1 0RF Patient Comments: asthma budesonide-formoterol 160-4.5MCG inhaler 2 puff PO BID bupropion HCl 300 MG tablet extended release 24 hr 300 mg PO DAILY lorazepam 1 mg tablet 0.5 - 1 mg PO TID PRN (Reason: Anxiety) Patient Comments: Please take half to one tablet daily as needed for anxiety levothyroxine 300 mcg tablet 300 mcg PO .thursday Patient Comments: Take 1 tablet by mouth daily before breakfast on Sundays. (Other days of the week take 275mcg once daily) bupropion HCl 150 mg tablet extended release 24 hr 150 mg PO DAILY Patient Comments: take 1 tablet by mouth once daily ALONG WITH BUPROPRION 300 MG carvedilol 25 mg tablet 25 mg PO Q12H Patient Comments: Take 1 tablet by mouth twice daily. (DME) blood-glucose meter [OneTouch Verio Flex meter] [facility] [place] MISCELLANEOUS UD (DME) OneTouch Verio test strips Strip MISCELLANEOUS Patient Comments: [NO ORIGINAL SIG] ([facility] [place]) FreeStyle Konstantin 2 Sensor Kit MISCELLANEOUS Patient Comments: Apply new sensor every fourteen (14) days to upper arm. lamotrigine 150 mg tablet 150 mg PO BID lamotrigine 25 mg tablet 50 mg PO DAILY isosorbide mononitrate 60 mg tablet extended release 24 hr 60 mg PO DAILY ([facility] [place]) insulin syringe-needle U-100 [BD Insulin Syringe Ultra-Fine] 0.5 mL 31 gauge x 5/16 syringe 1 [facility] [place]) lancets [Unilet Lancet] [address] [facility] ranolazine 500 mg tablet extended release 12 hr 500 mg PO BID insulin lispro [Humalog KwikPen Insulin] 100 unit/mL Insulin Pen See Protocol subcut ACHS Qty: 0 0RF Protocol: 4. Sliding Scale Insulin High-Med Dosing Condition: 150-199 mg/dl = 2 units Condition: 200-259 mg/dl = 4 units Condition: 260-324 mg/dl = 6 units Condition: 325-374 mg/dl = 8 units Condition: 375-409 mg/dl = 10 units Condition: 410-449 mg/dl = 11 units Condition: Greater than 449 call physician Protocol Text: - Use for Total Daily Dose of Insulin 56-80 units - Patient who are insulin resistant or septic HIGH MEDIUM DOSING ALGORITHM sennosides [senna] 8.6 mg Tablet 8.6 mg PO BID Qty: 0 0RF insulin lispro [Humalog KwikPen Insulin] 100 unit/mL Insulin Pen 15 unit subcut TIDAC acetaminophen 325 mg Tablet 1,000 mg PO Q8H PRN (Reason: Fever, pain 1-04/14) Qty: 0 0RF azithromycin 500 mg tablet 500 mg PO DAILY Qty: 5 0RF metoclopramide HCl 10 mg tablet 10 mg PO Q8H PRN (Reason: nausea and vomiting) Qty: 48 0RF ondansetron 4 mg tablet,disintegrating 4 mg PO Q8H PRN (Reason: nausea and vomiting) Qty: 10 0RF insulin glargine-yfgn 100 unit/mL (3 mL) Insulin Pen 45 unit subcut QHS Qty: 15 0RF pantoprazole 40 mg tablet,delayed release (DR/EC) 40 mg PO BIDCM Qty: 30 11RF Rx Instructions: twice daily for 1 month, then daily. hydrocodone-acetaminophen 5-325 mg tablet 1 tab PO Q6H PRN PRN (Reason: Pain) 3 Days Qty: 8 0RF Brilinta 90 mg tablet See Rx Instructions .ROUTE .COMPLEX Qty: 180 3RF Dose Instruction: 03/27/22 TAKE 1 TABLET BY MOUTH TWICE DAILY Rx Instructions: 03/27/22 TAKE 1 TABLET BY MOUTH TWICE DAILY Primary Care Provider: Carlotta Galindo Referrals: Carlotta Galindo MD [Primary Care Provider] - 3-5 Days Print Language: Cook Islander Disposition Disposition: Home, Self Care
[2024-03-24] MEDS: Cephalexin 500 MG Capsule PO (12:18)
[2024-03-24] MEDS: Morphine 4 MG/ML Syringe IM (12:18)
--- NOTE | 2024-03-24 12:25 | RAD_ITS ---
STUDY: X-RAY - LUMBAR SPINE REASON FOR EXAM: Female, 48 years old. Pain following a recent fall. TECHNIQUE: 3 view(s) of the lumbar spine were obtained. COMPARISON: Comparison is made with prior study September 10, 2023. FINDINGS: Normal lumbar lordosis. There is no substantial scoliosis. Stable grade 2 anterolisthesis of L5 on S1. The patient is status post interpedicular screw donny fixation at the L4-L5 and L5-S1 levels. This is unchanged. This space narrowing at the L5-S1 level. There is atherosclerotic calcification of the abdominal aorta without a demonstrated aneurysm. RAD/Lumbar Spine 2 or 3 Views IMPRESSION: Status post intrathecal screw and donny fixation at the L4-L5 and L5-S1 levels. Stable anterolisthesis of L5 on S1. There has been no change. Electronically Signed: Jacobo Joshi MD at 12:38 EDT ,
[2024-03-24 12:54] VITALS: BP 134/100; PULSE 84; RESP 16; TEMP 36.8; O2SAT 99
== END 2024-03-24 12:55 | disposition home or self-care (01) ==
PROVIDERS: Emergency Provider Emergency Medicine; PCP Internal Medicine; Visit Provider Emergency Medicine
DX: M79.651 Pain in right thigh (principal); I50.9 Heart failure, unspecified; J44.9 Chronic obstructive pulmonary disease, unspecified; E11.9 Type 2 diabetes mellitus without complications; I25.10 Atherosclerotic heart disease of native coronary artery without angina pectoris; F17.290 Nicotine dependence, other tobacco product, uncomplicated; M54.31 Sciatica, right side; I25.2 Old myocardial infarction; W19.XXXA Unspecified fall, initial encounter; G47.33 Obstructive sleep apnea (adult) (pediatric); Z86.16 Personal history of COVID-19
CPT/HCPCS: 72100; 96372; 99282